=== PATIENT | female | born 1990 | race Caucasian/White ===

== ENCOUNTER 2019-12-19 17:41 | Emergency (ER) | payer BC, SELFPAY ==
[2019-12-19 17:44] VITALS: BP 145/82; PULSE 130; RESP 20; TEMP 37.1; O2SAT 99
--- NOTE | 2019-12-19 17:48 | ED.GENADULT ---
HPI - General Adult General Chief complaint: Arrhythmia/Palpitations Stated complaint: chest hurts Time Seen by Provider: 12/19/19 17:48 Source: patient Mode of arrival: ambulatory Limitations: no limitations History of Present Illness HPI narrative: 29-year-old female patient presents to the [facility] with complaints of heart palpitations for the past 4 days. Patient states that she has been fighting off some types of cold symptoms recently and has had a little bit of a stuffy nose, runny nose and a cough. Patient denies any abdominal pain or nausea but states that she has had a little bit of diarrhea. Patient states that she does have a gluten and a dairy sensitivity and she did eat some of that yesterday. Patient also states that she has a history of IBS. Patient states she is coming in today because she has been having some palpitations for the past 4 days. Patient states that she does have a history of palpitations as well as sinus tachycardia and does see a filenet developer. Patient states that she sees her filenet developer tomorrow. Patient states she also has a history of PCOS, anxiety and depression. Patient states she does get panic attacks at times as well. Patient denies taking any [id number] pseudoepinephrine. Patient states she has been trying to take vitamins as well as Zicam for her symptoms. Patient denies any chest pain, shortness of breath at this time. Patient denies being a smoker. Related Data Home Medications Medication Instructions Recorded Confirmed Multiple Vitamins 12/19/19 Allergies Allergy/AdvReac Type Severity Reaction Status Date / Time aripiprazole Allergy Mild Verified 04/28/19 03:40 paroxetine Allergy Unknown Verified 02/03/17 13:35 pseudoephedrine Allergy Unknown Verified 02/03/17 13:35 DEPRESSION MEDS SSRI AdvReac Unknown Uncoded 06/03/17 12:10 sleeping medications AdvReac Unknown Uncoded 06/28/16 22:40 Review of Systems Review of Systems: Narrative: CONSTITUTIONAL: Denies fever, chills, or sweats. EYES: Denies visual changes, redness, or discharge. ENT: Positive rhinorrhea, congestion, denies sore throat, or otalgia. CARDIOVASCULAR: Denies chest pain, palpitations, or edema. RESPIRATORY: Positive nonproductive cough, denies dyspnea. GASTROINTESTINAL: Denies abdominal pain, nausea, vomiting, positive diarrhea. GENITOURINARY: Denies dysuria or hematuria. SKIN: Denies rash or itching. MUSCULOSKELETAL: Denies back pain, joint pain, or myalgia. NEUROLOGIC: Denies headache, numbness, or weakness. PSYCHIATRIC: Denies anxiety or depression. [facility] Past Medical History Medical History (Updated 12/19/19 @ 18:18 by SEAN Rosa) ADHD Ataxia Bipolar 1 disorder Depression Diaphoresis Headache, migraine Hypersomnia Hypertension IBS (irritable bowel syndrome) Obesity, Class III, BMI 40-49.9 (morbid obesity) Palpitations with regular cardiac rhythm (05/31/17) Panic attacks PCOS (polycystic ovarian syndrome) Periumbilical abdominal pain Previous known suicide attempt Seizure Tachycardia Surgical History Surgical History History of wisdom tooth extraction Family History Family History Mother Diabetes mellitus Family history of chronic obstructive pulmonary disease Family history of congestive heart failure Social History Social History Smoking status: Former smoker Comments At the time of my signature I agree with nursing past medical history, surgical, social, and family history. There is no relevant family history pertinent to the presenting complaint. Exam Narrative: Exam Narrative: GENERAL: Well-appearing, well-nourished, and in no acute distress. HEAD: Normocephalic, atraumatic. EYES: PERRLA and EOMI. ENT: Nares with erythema and edema noted bilaterally, no rhinorrhea or epistaxis. Mucous
[2019-12-19 18:22] VITALS: PULSE 112
== END 2019-12-19 18:26 | disposition home or self-care (01) ==
PROVIDERS: Emergency Provider Nurse Practitioner Family
DX: R00.2 Palpitations (principal); B34.9 Viral infection, unspecified; Z87.891 Personal history of nicotine dependence; I10 Essential (primary) hypertension; E66.01 Morbid (severe) obesity due to excess calories; E28.2 Polycystic ovarian syndrome; Z68.41 Body mass index [BMI] 40.0-44.9, adult
CPT/HCPCS: 99213; G0463

== ENCOUNTER 2020-01-11 15:25 | Outpatient (CLI) | payer BC, SELFPAY ==
--- NOTE | 2020-01-16 11:12 | WPDHOLTEREM ---
Holter/Event Monitor Holter/Event Monitor Date of procedure: 01/11/20 Procedure Type: 24 hour holter monitor Indications: Tachycardia Conclusion: 1. 24 hour holter monitor on 01/11/20. 2. Underlying rhythm is sinus rhythm. HR range 63-135 bpm; average HR 95 bpm. 3. No premature supraventricular complexes. No supraventricular tachycardia. 4. There are 2,916 premature ventricular complexes, 42 ventricular trigeminy. No ventricular tachycardia. 5. No sinoatrial or atrioventricular blocks. No significant pauses greater than 2 seconds. 6. Patient reports dizziness, hard to breathe which demonstrate sinus rhythm, HR range 104-107 bpm and PVC's.
== END 2020-01-11 15:26 | disposition home or self-care (01) ==
PROVIDERS: Visit Provider Internal Medicine Cardiovascular Disease
DX: R00.0 Tachycardia, unspecified (principal)
CPT/HCPCS: 93225; 93226

== ENCOUNTER 2020-02-11 07:36 | Emergency (ER) | payer BC, SELFPAY ==
[2020-02-11 07:30] VITALS: BP 152/100; PULSE 117; RESP 18; TEMP 36.8; O2SAT 97
--- NOTE | 2020-02-11 07:40 | ED.FEMALEGU ---
HPI - Female Genitourinary General Chief complaint: Vaginal Bleeding Stated complaint: vaginal bleeding Time Seen by Provider: 02/11/20 07:36 History of Present Illness HPI Narrative: Brought in by EMS for a heavy period. She has been on her period for the past 10 days. The past 6 days have been heavy. She reports having to change pads every 2-3 hours yesterday. This morning she was feeling dizzy and SOB. She has PCOS and prior to the past 10 days she had not had a period in 2 years. She was recently started on a new hormone therapy for PCOS prior to onset of the bleeding. Related Data Home Medications Medication Instructions Recorded Confirmed Multiple Vitamins 12/19/19 12/20/19 Allergies Allergy/AdvReac Type Severity Reaction Status Date / Time aripiprazole Allergy Mild Unknown Verified 02/11/20 08:03 paroxetine Allergy Unknown Unknown Verified 02/11/20 08:03 pseudoephedrine Allergy Unknown Unknown Verified 02/11/20 08:03 DEPRESSION MEDS SSRI AdvReac Unknown Unknown Uncoded 02/11/20 08:03 sleeping medications AdvReac Unknown Unknown Uncoded 02/11/20 08:03 Review of Systems Review of Systems: All systems reviewed & are unremarkable except as noted in HPI and below Constitutional: Constitutional: Reports fatigue Eyes: Eyes: Reports no additional eye complaints ENT: Reports dizziness Cardiovascular: Cardiovascular: Denies chest pain Respiratory: Respiratory: Reports dyspnea Gastrointestinal: Gastrointestinal: Reports nausea Genitourinary: Genitourinary: Reports abnormal vaginal bleeding, Denies dysuria, Reports pelvic pain and Denies vaginal discharge Musculoskeletal: Musculoskeletal: Denies back pain Neurologic: Reports dizziness Psychiatric: Psychiatric: Reports anxiety Hematologic/Lymphatic: Hematologic/Lymphatic: Denies easy bleeding and Denies easy bruising Allergic/Immunologic: Allergic/Immunologic: Reports no additional allergic/immunologic complaints [facility] Past Medical History Medical History ADHD Ataxia Bipolar 1 disorder Depression Diaphoresis Headache, migraine Hypersomnia Hypertension IBS (irritable bowel syndrome) Obesity, Class III, BMI 40-49.9 (morbid obesity) Palpitations with regular cardiac rhythm (05/31/17) Panic attacks PCOS (polycystic ovarian syndrome) Periumbilical abdominal pain Previous known suicide attempt Seizure Tachycardia Surgical History Surgical History History of wisdom tooth extraction Family History Family History Mother Diabetes mellitus Family history of chronic obstructive pulmonary disease Family history of congestive heart failure Social History Social History Smoking status: Former smoker Exam Const: General: no acute distress and alert Nutritional Appearance: obese Orientation/consciousness: patient oriented x3 Limitations: no limitations HENMT: Head: normal to inspection Resp: Effort & Inspection: normal respiratory effort Auscultation: clear to auscultation bilaterally Cardio: Rate: tachycardic Rhythm: regular rhythm GI: GI Palp: Yes Soft to palpation and No Tenderness to palpation present (GI) Skin: General skin exam: normal color Neuro: General: patient oriented x3, moves all extremities and no focal motor deficits Speech: normal speech Extrem: General: no edema Course Vital Signs Vital signs: Vital Signs Temperature 36.8 C 02/11/20 07:30 Pulse Rate 117 H 02/11/20 07:30 Respiratory Rate 18 02/11/20 07:30 Blood Pressure 152/100 H 02/11/20 07:30 Pulse Oximetry 97 02/11/20 07:30 Temperature 36.8 C 02/11/20 07:30 Pulse Rate 96 02/11/20 09:06 Respiratory Rate 18 02/11/20 09:06 Blood Pressure 147/94 H 02/11/20 09:06 Pulse Oximetry 99 02/11/20 09:06
[2020-02-11 07:44] VITALS: BP 127/80; PULSE 108
[2020-02-11 07:45] VITALS: BP 133/87; PULSE 116
[2020-02-11 07:46] VITALS: BP 135/86; PULSE 115
[2020-02-11 07:50] LABS: Basophils Absolute Auto 0.1 K/mm3 (0.0-0.1); Basophils Percent Auto 0.6 % (0.2-1.2); Eosinophils Absolute Auto 0.2 K/mm3 (0-0.3); Eosinophils Percent Auto 2.2 % (0-4.4); Hematocrit 39.1 % (37.0-47.0); Hemoglobin 12.4 g/dL (12.0-15.0); Immature Granulocyte Absolute 0.04 K/mm3 (0.00-0.031); Immature Granulocyte Percent A 0.4 % (0-0.5); Lymphocytes Absolute Auto 2.67 K/mm3 (0.9-3.2); Lymphocytes Percent Auto 26.5 % (18.3-44.2); Mean Corpuscular HGB Conc 31.7 g/dl (32-36); Mean Corpuscular Hemoglobin 28.4 pg (26-34); Mean Corpuscular Volume 89.7 fl (80-100); Mean Platelet Volume 8.9 fl (7.4-10.4); Monocytes Absolute Auto 0.6 K/mm3 (0.1-0.6); Monocytes Percent Auto 5.6 % (2.6-8.5); Neutrophils Absolute Auto 6.5 K/mm3 (1.3-6.7); Neutrophils Percent Auto 64.7 % (45.5-73.1); Platelet Count Result 384 k/mm3 (150-375); Red Blood Count 4.36 M/mm3 (4.2-5.4); Red Cell Distribution Width 12.9 % (11.5-14.5); White Blood Count 10.1 K/mm3 (4.5-10.0)
[2020-02-11] MEDS: SODIUM CHLORIDE 0.9% IV 1,000 ML 999 ML IV CONT (07:53)
[2020-02-11 08:00] LABS: INR 0.9; Prothrombin Time 12.2 Seconds (11.1-14.7)
[2020-02-11 08:01] LABS: Partial Thromboplastin Time 28.1 SECONDS (22.3-36.8)
[2020-02-11 08:22] LABS: Blood Urea Nitrogen 13 mg/dL (7-17); Calcium 8.7 mg/dL (8.4-10.2); Carbon Dioxide 25 mmol/L (22-30); Chloride 108 mmol/L (98-107); Estimated CRCL calculation 182 ml/min; Estimated Glomerular Filt Rate > 60; Glucose 122 mg/dL (65-105); Potassium 3.8 mmol/L (3.4-5.0); Sodium 140 mmol/L (137-145)
[2020-02-11 08:23] LABS: Add Urine Microscopic? YES; Appearance Urine Cloudy (Clear); Bilirubin Urine Negative (Negative); Blood Urine 3+ (Negative); Color Urine Red (Yellow); Glucose Urine UA Negative (Negative); Ketones Urine Negative (Negative); Leukocyte Esterase Ur Negative LEU/UL (Negative); Mucus Urine Rare /lpf; Nitrate Urine Negative (Negative); Protein Urine 2+ mg/dL (Negative); RBC Urine >75 /hpf (0-2); Specific Grav Ur 1.031 (1.001-1.035); Urobilinogen Urine Negative mg/dL (<2.0); WBC Urine 31-50 /hpf
[2020-02-11 08:44] VITALS: BP 147/84; PULSE 103; RESP 19; O2SAT 100
--- NOTE | 2020-02-11 09:04 | PC.NURSE ---
Pt reports fluids helped. Pt also states that bleeding has calmed down and has not soaked through a pad. EDP at bedside and aware of update
[2020-02-11 09:06] VITALS: BP 147/94; PULSE 96; RESP 18; O2SAT 99
== END 2020-02-11 09:29 | disposition home or self-care (01) ==
PROVIDERS: Emergency Provider Emergency Medicine
DX: N93.9 Abnormal uterine and vaginal bleeding, unspecified (principal); E28.2 Polycystic ovarian syndrome; K58.9 Irritable bowel syndrome, unspecified; E66.01 Morbid (severe) obesity due to excess calories; Z68.42 Body mass index [BMI] 45.0-49.9, adult
CPT/HCPCS: 36415; 80048; 81001; 81025; 85025; 85610; 85730; 86850; 86900; 86901; 87077; 87086; 87088; 87186; 96360; 99283; J7030

== ENCOUNTER 2020-08-18 14:41 | Emergency (ER) | payer OTHER, BC, SELFPAY ==
[2020-08-18 14:55] VITALS: BP 137/81; PULSE 99; RESP 16; TEMP 37.2; O2SAT 99
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
== END 2020-08-18 15:10 | disposition home or self-care (01) ==
PROVIDERS: Emergency Provider Nurse Practitioner
DX: S20.312A Abrasion of left front wall of thorax, initial encounter (principal); V49.40XA Driver injured in collision with unspecified motor vehicles in traffic accident, initial encounter; I10 Essential (primary) hypertension; E66.01 Morbid (severe) obesity due to excess calories; E28.2 Polycystic ovarian syndrome; Z87.891 Personal history of nicotine dependence
CPT/HCPCS: 99212; G0463

== ENCOUNTER 2021-04-11 14:02 | Emergency (ER) | payer BC, SELFPAY ==
[2021-04-11 14:30] VITALS: BP 142/87; PULSE 118; RESP 16; TEMP 36.6; O2SAT 100
--- NOTE | 2021-04-11 14:37 | ED.URI ---
HPI - URI/Sore Throat General Chief Complaint: Upper Respiratory Infection Stated Complaint: sinus congestion/cough/drainage History of Present Illness HPI Narrative: This is a 30-year-old that comes in complaining of sinus pressure and nasal drainage that started yesterday patient states that she has had a good cry and thought that it would go away but symptoms did not subside. Patient comes in to see if she possibly has a sinus infection symptoms started yesterday no fever no nausea no vomiting diarrhea Related Data Home Medications Medication Instructions Recorded Confirmed Multiple Vitamins 12/19/19 12/20/19 Allergies Allergy/AdvReac Type Severity Reaction Status Date / Time aripiprazole Allergy Mild Unknown Verified 02/11/20 08:03 paroxetine Allergy Unknown Unknown Verified 02/11/20 08:03 pseudoephedrine Allergy Unknown Unknown Verified 02/11/20 08:03 DEPRESSION MEDS SSRI AdvReac Unknown Unknown Uncoded 02/11/20 08:03 sleeping medications AdvReac Unknown Unknown Uncoded 02/11/20 08:03 Review of Systems Review of Systems: Narrative: CONSTITUTIONAL: Denies fever, chills, or sweats. EYES: Denies visual changes, redness, or discharge. ENT: Reports s rhinorrhea, reports congestion, denies sore throat, or otalgia. CARDIOVASCULAR:Denies chest pain, palpitations, or edema. RESPIRATORY: Denies cough or dyspnea. GASTROINTESTINAL: Denies abdominal pain, nausea, vomiting, or diarrhea. GENITOURINARY: Denies dysuria or hematuria. SKIN:[Denies rash or itching. MUSCULOSKELETAL:Denies back pain, joint pain, or myalgia. NEUROLOGIC: Denies headache, numbness, or weakness. PSYCHIATRIC:Denies anxiety or depression [facility] Past Medical History Medical History (Updated 04/11/21 @ 14:39 by Scar Sebastian NP) ADHD Ataxia Bipolar 1 disorder Depression Diaphoresis Headache, migraine Hypersomnia Hypertension IBS (irritable bowel syndrome) Obesity, Class III, BMI 40-49.9 (morbid obesity) Palpitations with regular cardiac rhythm (05/31/17) Panic attacks PCOS (polycystic ovarian syndrome) Periumbilical abdominal pain Previous known suicide attempt Seizure Tachycardia Surgical History Surgical History History of wisdom tooth extraction Family History Family History Mother Diabetes mellitus Family history of chronic obstructive pulmonary disease Family history of congestive heart failure Social History Social History Smoking status: Former smoker Comments At time as signature, I have reviewed and agree with nursing past medical, social, surgical and family history. Please see nursing chart for further information. There is no relevant family history pertinent to the presenting complaint. Exam Narrative: Exam Narrative: GENERAL:Well-appearing, well-nourished, and in no acute distress. HEAD:Normocephalic, atraumatic. EYES: PERRLA and EOMI. ENT: Nares clear, no rhinorrhea or epistaxis. Mucous membranes moist. Some T-zone pressure NECK: Supple. CHEST: Clear to auscultation. No respiratory distress. HEART: Regular rate and rhythm. No murmur heard. Normal peripheral pulses. ABDOMEN: Soft, nontender, nondistended, normal active bowel sounds. EXTREMITIES: Normal range of motion. No edema. SKIN: Warm, dry, no rash. NEURO: No focal deficits. Alert and oriented x3. Patient is fully vaccinated for Covid Course Vital Signs Vital signs: Vital Signs Temperature 97.8 F 04/11/21 14:30 Pulse Rate 118 H 04/11/21 14:30 Respiratory Rate 16 04/11/21 14:30 Blood Pressure 142/87 H 04/11/21 14:30 Pulse Oximetry 100 04/11/21 14:30 Temperature 97.8 F 04/11/21 14:30 Pulse Rate 118 H 04/11/21 14:30 Respiratory Rate 16 04/11/21 14:30 Blood Pressure 142/87 H 04/11/21 14:30 Pulse Oximetry 100 04/11/21 14:30 MDM - URI/Sore
== END 2021-04-11 14:47 | disposition home or self-care (01) ==
PROVIDERS: Emergency Provider Nurse Practitioner Family
DX: B34.9 Viral infection, unspecified (principal); J30.1 Allergic rhinitis due to pollen; I10 Essential (primary) hypertension; E28.2 Polycystic ovarian syndrome
CPT/HCPCS: 99213; G0463

== ENCOUNTER 2021-09-24 12:23 | Emergency (ER) | payer BC, SELFPAY ==
[2021-09-24 12:27] VITALS: BP 147/92; PULSE 125; RESP 20; TEMP 36.9; O2SAT 100
--- NOTE | 2021-09-24 12:44 | ED.URI ---
HPI - URI/Sore Throat General Chief Complaint: Upper Respiratory Infection Stated Complaint: CONGESTION/SORE THROAT Time Seen by Provider: 09/24/21 12:44 Source: patient Mode of arrival: ambulatory Limitations: no limitations History of Present Illness HPI Narrative: Alia Fabian is a 31 yo female with PMH IBS, HTN, high cholesterol,seizure, bipolar , depression, [facility] complaints of ongoing worsening sinusitis and anxiety; she has pressure in her ears and constant postnasal drip and has affected her taste; she is also had diarrhea but has IBS and so it has been a very stressful week with things going on at home Related Data Home Medications Medication Instructions Recorded Confirmed drospirenone (contraceptive) 1 tablet PO DAILY 09/24/21 09/24/21 [Slynd] Allergies Allergy/AdvReac Type Severity Reaction Status Date / Time aripiprazole Allergy Mild Unknown Verified 09/24/21 12:40 paroxetine Allergy Unknown Unknown Verified 09/24/21 12:40 pseudoephedrine Allergy Unknown Unknown Verified 09/24/21 12:40 DEPRESSION MEDS SSRI AdvReac Unknown Unknown Uncoded 09/24/21 12:40 sleeping medications AdvReac Unknown Unknown Uncoded 09/24/21 12:40 Review of Systems Review of Systems: CONSTITUTIONAL: Denies fever, chills, sweats. EYES: Denies visual changes, redness, discharge. ENT: Denies rhinorrhea, has congestion, has sore throat, has bilateral otalgia-feels like ears are full. CARDIOVASCULAR: Denies chest pain, palpitations, edema. RESPIRATORY: Denies dyspnea, wheezing, cough GASTROINTESTINAL: Denies abdominal pain, nausea, vomiting, diarrhea. GENITOURINARY: Denies dysuria, hematuria, abnormal discharge SKIN: Denies rash or itching. NEUROLOGIC: Denies numbness, or focal weakness. PSYCHIATRIC: Denies anxiety or depression. [facility] Past Medical History Medical History (Updated 09/24/21 @ 13:04 by Linda Franklin CNP) ADHD Ataxia Bipolar 1 disorder Depression Diaphoresis Headache, migraine Hypersomnia Hypertension IBS (irritable bowel syndrome) Obesity, Class III, BMI 40-49.9 (morbid obesity) Palpitations with regular cardiac rhythm (05/31/17) Panic attacks PCOS (polycystic ovarian syndrome) Periumbilical abdominal pain Previous known suicide attempt Seizure Tachycardia Surgical History Surgical History History of wisdom tooth extraction Family History Family History Mother Diabetes mellitus Family history of chronic obstructive pulmonary disease Family history of congestive heart failure Social History Social History Smoking status: Former smoker Comments At time of signature, I agree with nursing past medical, surgical, social and family history. There is no relevant family history pertinent to the presenting complaint. Has diagnosis of hypertension Exam Narrative: GENERAL: This is a well-nourished, well-developed patient, in mild distress. HEAD: normocephalic, atraumatic. EYES: Sclera clear/white. Vision is grossly intact. EARS: External ears normal, auditory canals erythema and without drainage, TMs bulging bilaterally. Hearing grossly intact. NOSE: External nose normal without nasal discharge, nares without redness, no rhinorrhea. Postnasal drip THROAT: Mucous membranes moist, posterior pharynx erythema, no exudate NECK: Neck supple, non-tender CARDIOVASCULAR: Regular rate and rhythm without murmurs, gallops, or rubs. RESPIRATORY: Clear to auscultation. Breath sounds equal bilaterally. No wheezes, rales, or rhonchi. GASTROINTESTINAL: Abdomen soft, non-tender, complaining of some earlier today to bowel movement SKIN: warm, intact with no suspicious lesions or rash, good texture and turgor. NEURO: awake, alert, and oriented to person, place and time. There were no obvious focal neurologic abnormalities. Steady
== END 2021-09-24 13:08 | disposition home or self-care (01) ==
PROVIDERS: Emergency Provider Nurse Practitioner
DX: J01.10 Acute frontal sinusitis, unspecified (principal); I10 Essential (primary) hypertension; Z87.891 Personal history of nicotine dependence
CPT/HCPCS: 87081; 87880; 99213; G0463

== ENCOUNTER 2021-10-02 15:14 | Emergency (ER) | payer BC, SELFPAY ==
--- NOTE | 2021-10-02 15:19 | ED.GENADULT ---
HPI - General Adult General Chief complaint: Nausea/Vomiting/Diarrhea Stated complaint: diarrhea/not eating/abdominal pain Time Seen by Provider: 10/02/21 15:36 Source: patient and RN notes reviewed Mode of arrival: ambulatory Limitations: no limitations History of Present Illness HPI narrative: 31-year-old female presents with concern for profuse diarrhea. Reports symptoms started yesterday with epigastric discomfort, watery stools 7-8 times a day. She reports fever of up to 102. She reports nausea without vomiting. Reports she has been taking Imodium, if she does not take Imodium she is incontinent. She reports she is on day 8 of Augmentin for a sinus infection. Reports she is only been taking one of the 2 daily tablets because it upsets her stomach. Reports before symptoms started she ate sushi. Reports she has had problem in the past with diarrhea. Reports she has had work-up, does not know of any results. In a separate complaint she reports dysuria without frequency, urgency, flank pain. Related Data Home Medications Medication Instructions Recorded Confirmed drospirenone (contraceptive) 1 tablet PO DAILY 09/24/21 09/24/21 [Slynd] Allergies Allergy/AdvReac Type Severity Reaction Status Date / Time aripiprazole Allergy Mild Unknown Verified 10/02/21 15:23 paroxetine Allergy Unknown Unknown Verified 10/02/21 15:23 pseudoephedrine Allergy Unknown Unknown Verified 10/02/21 15:23 DEPRESSION MEDS SSRI AdvReac Unknown Unknown Uncoded 10/02/21 15:23 sleeping medications AdvReac Unknown Unknown Uncoded 10/02/21 15:23 Review of Systems Review of Systems: CONSTITUTIONAL: Denies malaise, chills, sweats, or fever. CARDIOVASCULAR: Denies chest pain, palpitations, or edema. RESPIRATORY: Denies cough or dyspnea. GASTROINTESTINAL: Reports epigastric abdominal pain, nausea,diarrhea. GENITOURINARY: Denies dysuria. Denies frequency, urgency, hematuria. MUSCULOSKELETAL: Denies myalgia. All systems reviewed & are unremarkable except as noted in HPI and below PMFSH Past Medical History Medical History (Updated 10/02/21 @ 16:03 by Sary Sutton NP) ADHD Ataxia Bipolar 1 disorder Depression Diaphoresis Headache, migraine Hypersomnia Hypertension IBS (irritable bowel syndrome) Obesity, Class III, BMI 40-49.9 (morbid obesity) Palpitations with regular cardiac rhythm (05/31/17) Panic attacks PCOS (polycystic ovarian syndrome) Periumbilical abdominal pain Previous known suicide attempt Seizure Tachycardia Surgical History Surgical History History of wisdom tooth extraction Family History Family History Mother Diabetes mellitus Family history of chronic obstructive pulmonary disease Family history of congestive heart failure Social History Social History Smoking status: Former smoker Comments At time of signature, agree with nursing past medical, surgical, social and family history. There is no relevant family history pertinent to the presenting complaint Exam Narrative: GENERAL: Well-appearing, well-nourished, and in no acute distress. HEAD: Normocephalic, atraumatic. EYES: PERRLA, sclera clear. ENT: Mucous membranes moist. NECK: Supple. CHEST: No respiratory distress. Clear to auscultation. No bony deformities, no asymmetry. Speaks in full sentences. HEART: Regular rate and rhythm. ABDOMEN: Soft, nontender, nondistended, normal active bowel sounds, no palpable masses. SKIN: Warm, dry, no visible rash. NEURO: Alert and oriented x3. PSYCH: Normal mood and affect Course Course Emergency Course: Discussed with patient limited diagnostic capability express care for her symptoms. Discussed transfer to ER versus follow-up with primary care. Patient reports she has an appointment with her primary care doctor on Wednesday. Patient given reaso
[2021-10-02 15:22] VITALS: BP 139/91; PULSE 129; RESP 12; TEMP 36.8; O2SAT 100
== END 2021-10-02 16:15 | disposition home or self-care (01) ==
PROVIDERS: Emergency Provider Nurse Practitioner
DX: R30.0 Dysuria (principal); R19.7 Diarrhea, unspecified; I10 Essential (primary) hypertension
CPT/HCPCS: 81003; 99213; G0463

== ENCOUNTER → 2021-11-10 11:34 | Outpatient (CLI) | payer BC, SELFPAY ==
--- NOTE | ~2021-11-10 | US_ITS ---
EXAMINATION: US transvaginal DATE: 11/10/2021 11:56 INDICATION: Spotting with continuous control. Bilateral adnexal pain. TECHNIQUE: Multiple transvaginal sonographic images of the pelvis were obtained. COMPARISON: Pelvis ultrasound 09/15/2018 FINDINGS: The uterus measures 7.8 x 3.8 x 4.2 cm. There is no free fluid in the pelvis. The endometrial complex measures 6 mm in thickness. The right ovary measures 1.3 x 1.7 x 0.9 cm. The left ovary measures 1.8 x 1.4 x 1.7 cm. There is normal vascular flow in the ovaries. IMPRESSION: 1. Normal pelvis. Reviewed, dictated and finalized at location B. CAGER IMPRESSION: 1. Normal pelvis.
== END ==
PROVIDERS: Visit Provider Nurse Practitioner
DX: N93.8 Other specified abnormal uterine and vaginal bleeding (principal)
CPT/HCPCS: 76830

== ENCOUNTER → 2022-01-01 12:07 | Outpatient (CLI) | payer BC, SELFPAY ==
--- NOTE | ~2022-01-01 | MR_ITS ---
EXAMINATION: MR cervical spine wo con DATE: 01/01/2022 13:07 INDICATION: Cervical disc herniation. TECHNIQUE: Magnetic resonance imaging (MRI) of the cervical spine was performed without intravenous c ontrast. Sequences included sagittal T2-weighted FSE, sagittal STIR FSE, sagittal T1-weighted FSE, ax ial MERGE, and axial T2-weighted FSE. COMPARISON: Cervical spine MRI 09/07/2017 FINDINGS: Bone alignment is normal. Vertebral body heights and intervertebral disc heights are normal . The spinal cord signal intensity is normal. The following disc levels are specifically discussed: C2-C3: The disc does not extend beyond the endplate margin. There is mild bilateral uncovertebral jovany nt osteoarthritis. There is mild right and moderate left facet joint osteoarthritis. There is mild le ft neural foraminal stenosis. There is no central canal stenosis. C3-C4: The disc does not extend beyond the endplate margin. There is mild bilateral uncovertebral jovany nt osteoarthritis. There is mild bilateral facet joint osteoarthritis. There is no neural foraminal s tenosis. There is no central canal stenosis. C4-C5: There is a central protrusion. There is no uncovertebral joint osteoarthritis. There is no fac et joint osteoarthritis. There is no neural foraminal stenosis. There is mild central canal stenosis. C5-C6: There is a left central extrusion. There is no uncovertebral joint osteoarthritis. There is mi ld bilateral facet joint osteoarthritis. There is no neural foraminal stenosis. There is mild central canal stenosis with ventral indentation of the spinal cord. C6-C7: There is a central extrusion. There is no uncovertebral joint osteoarthritis. There is no face t joint osteoarthritis. There is no neural foraminal stenosis. There is mild central canal stenosis. C7-T1: The disc does not extend beyond the endplate margin. There is no uncovertebral joint osteoarth ritis. There is mild bilateral facet joint osteoarthritis. There is no neural foraminal stenosis. The re is no central canal stenosis. IMPRESSION: 1. Mild cervical spondylosis, stable from 09/07/2017. Reviewed, dictated and finalized at location A. OTAPE EDITOR
== END ==
PROVIDERS: PCP Family Medicine; Visit Provider Chiropractor
DX: R50.9 Fever, unspecified (principal)
CPT/HCPCS: 72141

== ENCOUNTER 2023-01-29 00:17 | Emergency (ER) | payer BC, SELFPAY ==
--- NOTE | ~2023-01-29 | XR_ITS ---
Clinical Indication: Chest pain PA and lateral views of the chest: Comparison: 08/09/2017 Findings: The lungs are clear, without evidence of focal consolidation or pleural effusion. Cardiome diastinal silhouette is within normal limits. Bones and soft tissues are unremarkable. Density projec ting over the mid chest is external to the patient as evidenced on lateral view. Impression: No significant abnormality seen. Reviewed, dictated and finalized at location M. Impression: No significant abnormality seen.
--- NOTE | ~2023-01-29 | CT_ITS ---
Clinical Indication: Pulmonary embolus CT Scan of the Chest with Contrast: Technique: Contiguous sections were acquired throughout the chest after intravenous administration of 100 cc of Omnipaque 350. Dose reduction technique was used on this scan by utilizing automated expos ure control and iterative reconstruction technique. The dose-length product (DLP) was 903.28 mGy-cm. COMPARISON: 08/09/2017 Findings: There is no evidence of any significant mediastinal, hilar or axillary lymphadenopathy. There is no f illing defect in the pulmonary arterial tree to suggest pulmonary embolus. There is no evidence of ao rtic dissection or aneurysm. There is no evidence of pleural or pericardial effusion. The lungs are clear. No pulmonary nodules or infiltrates are noted. Images through the upper abdomen reveal no abnormalities. Impression: No evidence of pulmonary embolus, aortic dissection, or aortic aneurysm. Clear lungs. Reviewed, dictated and finalized at [facility]. Impression: No evidence of pulmonary embolus, aortic dissection, or aortic aneurysm. Clear lungs.
--- NOTE | 2023-01-29 00:20 | ECG_ITS ---
Measurements Intervals [place] Rate: 110 P: 12 [place]: 120 QRS: -10 QRSD: 89 T: 7 QT: 328 QTc: 445 Interpretive Statements SINUS TACHYCARDIA LOW QRS VOLTAGE IN PRECORDIAL LEADS VOLTAGE CRITERIA FOR LVH BASELINE ARTIFACT- III, AVF ABNORMAL ECG NO PREVIOUS ECG AVAILABLE FOR COMPARISON Electronically Signed On 01-29-2023 7:11:24 CDT by Antoine Rutledge D.O.
[2023-01-29 00:23] VITALS: BP 158/103; PULSE 108; RESP 18; TEMP 36.8; O2SAT 100
--- NOTE | 2023-01-29 00:28 | ED.CHESTPAIN ---
HPI - Chest Pain General Chief Complaint: Chest Pain Stated Complaint: CHEST TIGHTNESS, LIGHTHEADEDNESS Time Seen by Provider: 01/29/23 00:19 History of Present Illness HPI narrative: Patient is a 32-year-old female with a history of depression and anxiety here for evaluation of flushing, lightheadedness, palpitations and chest pain earlier today. Patient states that she was at rest when she developed the symptoms. She has followed with Dr. Rutledge, cardiology, in the past for the symptoms, has reportedly been asymptomatic for the past 2 years. Clau's episode feels similar to previous episodes. She has been worked up with a Holter monitor and an echo in the past both of which have been reassuring. Patient decided to come to the ED after she took her blood pressure and noticed that it was elevated in the 160s systolic. No syncope, leg swelling, visual changes, fevers, nausea, vomiting or abdominal pain. She does not take any blood pressure medicines. She does take oral contraceptives. Related Data Home Medications Medication Instructions Recorded Confirmed drospirenone (contraceptive) 4 mg 1 tablet PO DAILY 09/24/21 10/02/21 (28) tablet (Slynd) Allergies Allergy/AdvReac Type Severity Reaction Status Date / Time aripiprazole Allergy Mild Unknown Verified 10/02/21 15:23 paroxetine Allergy Unknown Unknown Verified 10/02/21 15:23 pseudoephedrine Allergy Unknown Unknown Verified 10/02/21 15:23 DEPRESSION MEDS SSRI AdvReac Unknown Unknown Uncoded 10/02/21 15:23 sleeping medications AdvReac Unknown Unknown Uncoded 10/02/21 15:23 Review of Systems Review of Systems: Gen.: Reports lightheadedness Eyes: Denies eye pain or visual change ENT: Denies congestion Respiratory: Denies shortness of breath or cough CV: Reports chest pain and palpitations GI: Denies abdominal pain nausea, emesis or diarrhea denies burning, urgency, frequency or hematuria Musculoskeletal: Denies back pain or muscle pain Neuro: Denies numbness, tingling, weakness or focal weakness Skin: Denies rash Except as documented, all other systems reviewed and negative PMFSH Past Medical History Medical History (Updated 01/29/23 @ 03:43 by Ginna Reyez PA-C) ADHD Ataxia Bipolar 1 disorder Depression Diaphoresis Headache, migraine Hypersomnia Hypertension IBS (irritable bowel syndrome) Obesity, Class III, BMI 40-49.9 (morbid obesity) Palpitations with regular cardiac rhythm (05/31/17) Panic attacks PCOS (polycystic ovarian syndrome) Periumbilical abdominal pain Previous known suicide attempt Seizure Tachycardia Surgical History Surgical History History of wisdom tooth extraction Family History Family History Mother Diabetes mellitus Family history of chronic obstructive pulmonary disease Family history of congestive heart failure Social History Social History Smoking status: Former smoker Exam Narrative: APPEARANCE: Anxious appearing Head: Normocephalic and atraumatic. EYES: PERRLA/EOMI, conjunctivae clear NOSE: No nasal drainage EARS: External ear normal in appearance THROAT: Oropharynx is clear. Mucous membranes are moist. NECK: Supple. No adenopathy, no masses. RESPIRATORY: Airway patent, respirations nonlabored. Clear to auscultation bilaterally, no rales, rhonchi, wheezing. CARDIOVASCULAR: Tachycardic. Regular rhythm without murmurs, rubs, or gallops. ABDOMINAL: Normoactive bowel sounds. Soft, nontender, nondistended. No rebound tenderness or guarding. MUSCULOSKELETAL: Extremities are warm and well-perfused. Moves all extremities well. No edema. NEURO: Normal speech. No focal neurologic deficits. SKIN: Skin is warm and dry. No rashes. PSYCHIATRIC: Normal affect/mood. Course Vital Signs Vital signs: Vital Signs Temperature 98.3
[2023-01-29 00:32] VITALS: BP 158/95; PULSE 113; RESP 21; O2SAT 100
[2023-01-29] MEDS: SODIUM CHLORIDE 0.9% IV 1,000 ML 999 ML IV CONT (01:10)
[2023-01-29 01:44] LABS: Basophils Absolute Auto 0.1 K/mm3 (0.0-0.1); Basophils Percent Auto 0.6 % (0.2-1.2); Eosinophils Absolute Auto 0.2 K/mm3 (0-0.3); Eosinophils Percent Auto 2.5 % (0-4.4); Hemoglobin 14.6 g/dL (12.0-15.0); Immature Granulocyte Absolute 0.03 K/mm3 (0.00-0.031); Immature Granulocyte Percent A 0.3 % (0-0.5); Lymphocytes Absolute Auto 2.52 K/mm3 (0.9-3.2); Lymphocytes Percent Auto 28.4 % (18.3-44.2); Mean Corpuscular HGB Conc 33.2 g/dl (32-36); Mean Corpuscular Hemoglobin 29.3 pg (26-34); Mean Corpuscular Volume 88.4 fl (80-100); Mean Platelet Volume 9.2 fl (7.4-10.4); Monocytes Absolute Auto 0.5 K/mm3 (0.1-0.6); Monocytes Percent Auto 5.5 % (2.6-8.5); Neutrophils Absolute Auto 5.6 K/mm3 (1.3-6.7); Neutrophils Percent Auto 62.7 % (45.5-73.1); Platelet Count Result 330 k/mm3 (150-375); Red Blood Count 4.98 M/mm3 (4.2-5.4); Red Cell Distribution Width 12.5 % (11.5-14.5); White Blood Count 8.9 K/mm3 (4.5-10.0)
[2023-01-29 02:00] LABS: Alanine Aminotransferase 21 U/L (6-35); Albumin Level 4.8 g/dL (3.5-5.1); Alkaline Phosphatase 88 U/L (38-126); Anion Gap 10 mmol/L (8-16); Aspartate Amino Transferase 29 U/L (14-36); Bilirubin,Total 0.5 mg/dL (0.2-1.3); Blood Urea Nitrogen 18 mg/dL (7-17); Calcium 9.2 mg/dL (8.4-10.2); Carbon Dioxide 24 mmol/L (22-30); Chloride 106 mmol/L (98-107); Estimated CRCL calculation 194 ml/min; Estimated Glomerular Filt Rate > 60; Glucose 105 mg/dL (65-110); Potassium 3.9 mmol/L (3.4-5.0); Sodium 140 mmol/L (137-145)
[2023-01-29 02:12] LABS: Troponin I < 0.012 ng/mL (0.000-0.034)
[2023-01-29 02:29] LABS: D Dimer 0.56 ug/mL (<0.48)
== END 2023-01-29 04:08 | disposition home or self-care (01) ==
PROVIDERS: Emergency Provider Physician Assistant; PCP Family Medicine
DX: R00.0 Tachycardia, unspecified (principal); R00.2 Palpitations; F90.9 Attention-deficit hyperactivity disorder, unspecified type; F32.A Depression, unspecified; I10 Essential (primary) hypertension
CPT/HCPCS: 36415; 71046; 71275; 80053; 81025; 84484; 85025; 85380; 93005; 96360; 99284; J7030; Q9967

== ENCOUNTER → 2023-03-19 13:36 | Outpatient (CLI) | payer BC, SELFPAY ==
--- NOTE | ~2023-03-19 | US_ITS ---
EXAMINATION: US transvaginal DATE: 03/19/2023 13:59 INDICATION: Pelvic and perineal pain. TECHNIQUE: Multiple transvaginal sonographic images of the pelvis were obtained. COMPARISON: ultrasound 11/10/21 FINDINGS: The uterus measures 7.8 x 4.5 x 3.4 cm. There is no free fluid in the pelvis. The endometrial complex measures 6 mm in thickness. The right ovary measures 2.2 x 2.4 x 2.3 cm. The left ovary measures 1.6 x 1.5 x 1.3 cm. IMPRESSION: 1. Normal pelvis. Reviewed, dictated and finalized at location A. IMPRESSION: 1. Normal pelvis.
== END ==
PROVIDERS: PCP Nurse Practitioner; Visit Provider Nurse Practitioner
DX: R10.2 Pelvic and perineal pain (principal)
CPT/HCPCS: 76830

== ENCOUNTER → 2023-05-24 15:15 | Outpatient (CLI) | payer BC, SELFPAY ==
--- NOTE | ~2023-05-24 | MR_ITS ---
MRI of the brain Clinical History: Hyperprolactinemia Technique: Axial and sagittal T1-weighted images were acquired. These were followed by axial T2-weigh yumi, diffusion weighted, gradient, and FLAIR images. Thin cut coronal and sagittal T1-weighted images were also performed through the sella turcica. Following intravenous administration of 20 cc MultiHa nce gadolinium, T1-weighted fat-sat imaging was performed through the brain in the axial and coronal planes. Thin cut sagittal and coronal T1-weighted postcontrast imaging was also performed through the sella turcica. COMPARISON: 06/17/2017 Findings: There is no abnormal signal in the brain parenchyma. No acute infarct, intracranial hemorrh age, or mass lesion identified. Ventricles and subarachnoid spaces are unremarkable. Orbits are unremarkable. Paranasal sinuses and m astoid air cells are clear. Major intracranial flow voids appear intact. Sagittal midline structures are intact. No pituitary mass seen. No sellar/suprasellar mass seen. Opti c chiasm unremarkable. No abnormal postcontrast enhancement identified. IMPRESSION: Unremarkable exam. No pituitary or sellar/suprasellar mass identified. Reviewed, dictated and finalized at location M.
== END ==
PROVIDERS: PCP Obstetrics & Gynecology Gynecology; Visit Provider Obstetrics & Gynecology Gynecology
DX: E22.1 Hyperprolactinemia (principal)
CPT/HCPCS: 70553; A9577

== ENCOUNTER 2023-10-16 20:42 | Emergency (ER) | payer BC, SELFPAY ==
--- NOTE | ~2023-10-16 | XR_ITS ---
EXAMINATION: XR chest 1V portable Exam Date/Time: 10/16/2023 21:25 CHECKER/STOCKER HISTORY: fluttering in [id number], SOB 3 days Comparison: 01/29/2023. RESULT: Lines, tubes, and devices: None. Lungs and pleura: Clear. Cardiomediastinal silhouette: Stable. Other: No acute osseous or upper abdominal finding. IMPRESSION: No acute cardiopulmonary process. Reviewed, dictated and finalized at location K. KER/STOCKER
[2023-10-16 20:44] VITALS: BP 157/105; PULSE 112; RESP 18; TEMP 36.9; O2SAT 100
--- NOTE | 2023-10-16 20:52 | ECG_ITS ---
Measurements Intervals [place] Rate: 107 P: 30 CO: 148 QRS: -4 QRSD: 86 T: 44 QT: 335 QTc: 448 Interpretive Statements SINUS TACHYCARDIA LOW QRS VOLTAGE IN PRECORDIAL LEADS [QRS DEFLECTION < 1.0 mV IN CHEST LEADS] MODERATE VOLTAGE CRITERIA FOR LVH, CONSIDER NORMAL VARIANT [MEETS CRITERIA IN ONE OF: R(aVL), S(V1), R(V5), R(V5/V6)+S(V1)] POOR R-WAVE PROGRESSION ABNORMAL RHYTHM ECG COMPARED TO ECG 01/29/2023 00:22:34 NO SIGNIFICANT CHANGES Electronically Signed On 10-17-2023 9:03:03 CHAINSAW MECHANIC by Elier Saunders M.D.
--- NOTE | 2023-10-16 20:57 | ED.ARRPALP ---
HPI - Arrhythmia/Palpitations General Chief Complaint: Arrhythmia/Palpitations Stated Complaint: fluttering feeling in chest Time Seen by Provider: 10/16/23 20:56 Source: patient and EMS Mode of arrival: EMS Limitations: no limitations History of Present Illness HPI narrative: 33 YEARS OLD WHITE FEMALE LIVES ALONE, CAME FROM HOME BY AMBULANCE BECAUSE OF SKIPPED EATS FLUTTERY FEELING IN THE HEART OFTEN ON FOR THE LAST 1 MONTH. PATIENT HAD SIMILAR SYMPTOMS 3 YEARS AGO REQUIRED NUMEROUS HOLTER MONITOR MANAGEMENT WHICH SHOWED PVCS. . PATIENT USUALLY GETS BETTER ON IV FLUID, REPORTS TOO MUCH STRESS LATELY, DECLINED TO TAKE ANY BENZODIAZEPINE IN THE ED BECAUSE DOES NOT LIKE THE FEEL OF IT, DECLINED TO TAKE HYDRALAZINE, SHE IS TELLING ME THAT SHE HAVE IT AT HOME AND SHE IS BLIND TO TAKE IT ONCE YOU GO BACK HOME, HISTORY OF IBS, SHE DOES NOT SMOKE OR DRINK OR USE DRUGS. SHE DENIES ANY FEVER, CHILLS, NAUSEA, VOMITING, CHEST PAIN OR SHORTNESS OF BREATH. Related Data Home Medications Medication Instructions Recorded Confirmed drospirenone (contraceptive) 4 mg 1 tablet PO DAILY 09/24/21 10/02/21 (28) tablet (Slynd) Allergies Allergy/AdvReac Type Severity Reaction Status Date / Time aripiprazole Allergy Mild Unknown Verified 10/16/23 20:58 paroxetine Allergy Unknown Unknown Verified 10/16/23 20:58 pseudoephedrine Allergy Unknown Unknown Verified 10/16/23 20:58 Benzodiazepines AdvReac Other Verified 10/16/23 21:00 lorazepam [From Ativan] AdvReac Other Verified 10/16/23 21:00 DEPRESSION MEDS SSRI AdvReac Unknown Unknown Uncoded 10/16/23 20:58 sleeping medications AdvReac Unknown Unknown Uncoded 10/16/23 20:58 Review of Systems Review of Systems: All systems reviewed & are unremarkable except as noted in HPI and below PMFSH Past Medical History Medical History (Updated 10/16/23 @ 21:59 by Dony Cade MD) ADHD Ataxia Bipolar 1 disorder Depression Diaphoresis Headache, migraine Hypersomnia Hypertension IBS (irritable bowel syndrome) Obesity, Class III, BMI 40-49.9 (morbid obesity) Palpitations with regular cardiac rhythm (05/31/17) Panic attacks PCOS (polycystic ovarian syndrome) Periumbilical abdominal pain Previous known suicide attempt Seizure Tachycardia Surgical History Surgical History History of wisdom tooth extraction Family History Family History Mother Diabetes mellitus Family history of chronic obstructive pulmonary disease Family history of congestive heart failure Social History Social History Smoking status: Former smoker Course Vital Signs Vital signs: Vital Signs Temperature 36.9 C 10/16/23 20:44 Pulse Rate 112 H 10/16/23 20:44 Respiratory Rate 18 10/16/23 20:44 Blood Pressure 157/105 H 10/16/23 20:44 Pulse Oximetry 100 10/16/23 20:44 Oxygen Delivery Room Air 10/16/23 20:44 Temperature 36.9 C 10/16/23 20:44 Pulse Rate 94 10/16/23 21:37 Respiratory Rate 16 10/16/23 21:37 Blood Pressure 129/85 10/16/23 21:37 Pulse Oximetry 100 10/16/23 21:37 Oxygen Delivery Room Air 10/16/23 20:44 MDM - Arrhythmia/Palpitations MDM Narrative Medical decision making narrative: PATIENT PRESENTS WITH SKIPPED BEAT AND PALPITATION, VITAL SIGNS SHOWED BLOOD PRESSURE OF 157/105 PHYSICAL EXAM IS UNREMARKABLE DIFFERENTIAL DIAGNOSIS IS ANXIETY LIKE SYMPTOMS, PALPITATION, PVCS, ELECTROLYTE IMBALANCE, HYPERTHYROIDISM WORKUP TODAY SHOWED NO ACUTE ABNORMALITIES. PATIENT WAS ADVISED TO CONTINUE TAKING HYDRALAZINE AND FOLLOW UP WITH FAMILY PHYSICIAN NEXT WEEK. Differential Diagnosis Differential diagnosis: Likely other ( ABOVE) Medical Records Attestation: I reviewed the patient's medical records. Lab Data Attestation: I reviewed the patient's lab results. 10/16/23 20:55
[2023-10-16 21:05] LABS: Basophils Percent Auto 0.6 % (0.2-1.2); Eosinophils Absolute Auto 0.1 K/mm3 (0-0.3); Hematocrit 44.2 % (37.0-47.0); Hemoglobin 14.2 g/dL (12.0-15.0); Immature Granulocyte Absolute 0.01 K/mm3 (0.00-0.031); Immature Granulocyte Percent A 0.1 % (0-0.5); Lymphocytes Absolute Auto 2.37 K/mm3 (0.9-3.2); Lymphocytes Percent Auto 34.2 % (18.3-44.2); Mean Corpuscular HGB Conc 32.1 g/dl (32-36); Mean Corpuscular Hemoglobin 28.7 pg (26-34); Mean Corpuscular Volume 89.3 fl (80-100); Mean Platelet Volume 9.6 fl (7.4-10.4); Monocytes Absolute Auto 0.5 K/mm3 (0.1-0.6); Monocytes Percent Auto 6.6 % (2.6-8.5); Neutrophils Absolute Auto 3.9 K/mm3 (1.3-6.7); Neutrophils Percent Auto 56.5 % (45.5-73.1); Platelet Count Result 305 k/mm3 (150-375); Red Blood Count 4.95 M/mm3 (4.2-5.4); Red Cell Distribution Width 12.4 % (11.5-14.5); White Blood Count 6.9 K/mm3 (4.5-10.0)
[2023-10-16 21:15] LABS: Partial Thromboplastin Time 30.2 SECONDS (22.3-36.8); Prothrombin Time 13.1 Seconds (11.1-14.7)
[2023-10-16 21:16] LABS: Alanine Aminotransferase 17 U/L (6-35); Albumin Level 4.8 g/dL (3.5-5.1); Alkaline Phosphatase 75 U/L (38-126); Anion Gap 12 mmol/L (8-16); Aspartate Amino Transferase 28 U/L (14-36); Bilirubin,Total 0.6 mg/dL (0.2-1.3); Blood Urea Nitrogen 9 mg/dL (7-17); Calcium 9.3 mg/dL (8.4-10.2); Carbon Dioxide 23 mmol/L (22-30); Chloride 105 mmol/L (98-107); Estimated CRCL calculation 159 ml/min; Estimated Glomerular Filt Rate > 60; Glucose 119 mg/dL (65-110); Lipase 59 U/L (23-300); Potassium 3.7 mmol/L (3.4-5.0); Sodium 140 mmol/L (137-145)
[2023-10-16 21:27] LABS: Troponin I < 0.012 ng/mL (0.000-0.034)
[2023-10-16] MEDS: SODIUM CHLORIDE 0.9% IV 1,000 ML 999 ML IV CONT (21:32)
[2023-10-16 21:37] VITALS: BP 129/85; PULSE 94; RESP 16; O2SAT 100
[2023-10-16 21:43] LABS: Magnesium 1.9 mg/dL (1.6-2.3)
[2023-10-16 22:35] VITALS: PULSE 74; RESP 18; O2SAT 98
== END 2023-10-16 22:37 | disposition home or self-care (01) ==
PROVIDERS: Emergency Medicine; Emergency Provider Emergency Medicine; PCP Family Medicine
DX: R00.2 Palpitations (principal); F41.9 Anxiety disorder, unspecified; R00.0 Tachycardia, unspecified
CPT/HCPCS: 36415; 71045; 80053; 83690; 83735; 84443; 84484; 85025; 85610; 85730; 93005; 96360; 99284; J7030

== ENCOUNTER 2024-08-02 13:55 | Outpatient (CLI) | payer BC, SELFPAY ==
--- NOTE | ~2024-08-02 | US_ITS ---
EXAMINATION: US transvaginal DATE: 08/02/2024 14:18 INDICATION: Pelvic pain and pressure. TECHNIQUE: Multiple transvaginal sonographic images of the pelvis were obtained. COMPARISON: Ultrasound 03/19/2023 FINDINGS: The uterus measures 7.3 x 3.5 x 4.7 cm. There is no free fluid in the pelvis. The endometrial complex measures 5 mm in thickness. The right ovary measures 3.0 x 3.4 x 3.2 cm. There is vascular flow in r ight ovary. The left ovary is not visualized. IMPRESSION: 1. Normal uterus and right ovary. 2. Left ovary not visualized. Reviewed, dictated and finalized at location A.
== END 2024-08-02 13:56 | disposition home or self-care (01) ==
LOC: MICIMG 13:56
PROVIDERS: PCP Family Medicine; Visit Provider Nurse Practitioner
DX: R10.2 Pelvic and perineal pain (principal)
CPT/HCPCS: 76830

== ENCOUNTER 2024-10-26 09:34 | Emergency (ER) | payer BC, SELFPAY ==
--- NOTE | ~2024-10-26 | XR_ITS ---
XR chest 1V portable Ordering provider: Miguelito Hayden MD History: 34 years Female with . left sided CP . Comparison: October 16, 2023 FINDINGS: MEDIASTINUM: The cardiac silhouette is not enlarged. LUNGS: No infiltrates, effusions or pneumothorax. OTHER: No free air under the diaphragm. IMPRESSION: No acute cardiopulmonary pathology. Reviewed, dictated and finalized at location A. CHING MACHINE OPERATOR
[2024-10-26 09:55] VITALS: BP 168/90; PULSE 107; RESP 18; TEMP 36.9; O2SAT 100
--- NOTE | 2024-10-26 11:22 | ED_ITS ---
HPI - Nausea/Vomiting/Diarrhea General Chief complaint: Nausea/Vomiting/Diarrhea <Ginna Gill PA-C - Last Filed: 10/30/24 17:22> Stated complaint: POTS, diarrhea, requesting IVF <Ginna Gill PA-C - Last Filed: 10/30/24 17:22> Time Seen by Provider: 10/26/24 11:22 <Ginna Gill PA-C - Last Filed: 10/30/24 17:22> Focused HPI: This is a 34 year old female that presents to the ER for abdominal pain. Ongoing over the last couple of weeks. Reports she has had nausea and diarrhea. She does have history of IBS. Reports associated chest pain and pressure. Reports she has history of POTS and is concerned her electrolytes are out of wack . GENERAL: Well-appearing, well-nourished, and in no acute distress. HEAD: Normocephalic, atraumatic. CHEST: Clear to auscultation. ?No respiratory distress. HEART: Regular rate and rhythm.? NEURO: ?Alert and oriented x3. Patient screened in triage and initial orders placed.? ?Additional care and disposition to be based upon?diagnostic testing and treatment. <Ginna Gill PA-C - Last Filed: 10/30/24 17:22> History of Present Illness HPI Narrative: I agree with the above HPI <Miguelito Hayden MD - Last Filed: 10/26/24 18:59> Related Data Home medications: Home Medications ?Medication ?Instructions ?Recorded ?Confirmed ?Last Taken ?Type drospirenone (contraceptive) 4 mg 1 tablet PO DAILY 09/24/21 10/02/21 Unknown History (28) tablet (Slynd) <Ginna Gill PA-C - Last Filed: 10/30/24 17:22> Allergies/Adverse reactions: Allergies Allergy/AdvReac Type Severity Reaction Status Date / Time aripiprazole Allergy Mild Unknown Verified 10/26/24 12:08 paroxetine Allergy Unknown Unknown Verified 10/26/24 12:08 pseudoephedrine Allergy Unknown Unknown Verified 10/26/24 12:08 Benzodiazepines AdvReac Other Verified 10/26/24 12:08 lorazepam (From Ativan) AdvReac Other Verified 10/26/24 12:08 DEPRESSION MEDS SSRI AdvReac Unknown Unknown Uncoded 10/26/24 12:08 sleeping medications AdvReac Unknown Unknown Uncoded 10/26/24 12:08 <Ginna Gill PA-C - Last Filed: 10/30/24 17:22> Review of Systems 2 Review of Systems: All systems reviewed & are unremarkable except as noted in HPI and below <Miguelito Hayden MD - Last Filed: 10/26/24 18:59> FOR[facility]LY [facility] Past Medical History Medical History: Medical History (Updated 10/29/24 @ 00:00 by Background Dakrystal) Previous known suicide attempt Panic attacks Bipolar 1 disorder Depression ADHD PCOS (polycystic ovarian syndrome) IBS (irritable bowel syndrome) Hypertension Seizure Headache, migraine Ataxia Diaphoresis Hypersomnia Obesity, Class III, BMI 40-49.9 (morbid obesity) Palpitations with regular cardiac rhythm (05/31/17) Periumbilical abdominal pain Tachycardia <Ginna Gill PA-C - Last Filed: 10/30/24 17:22> Surgical History Surgical History: Surgical History History of wisdom tooth extraction <Ginna Gill PA-C - Last Filed: 10/30/24 17:22> Family History Family History: Family History Mother Diabetes mellitus Family history of chronic obstructive pulmonary disease Family history of congestive heart failure <Ginna Gill PA-C - Last Filed: 10/30/24 17:22> Social History Social History: Social History Smoking status: Former smoker <Ginna Gill PA-C - Last Filed: 10/30/24 17:22> Exam 2 Narrative: APPEARANCE: Well appearing, no pain, no distress, well-nourished. HEAD: normocephalic, atraumatic. EYES: PERRLA/EOMI, conjunctivae clear. NOSE: Normal no drainage EARS:TMS clear with good light reflex. THROAT: Pharynx clear, no exudate. NECK: Supple. No adenopathy, no masses. RESPIRATORY: Airway patent, respirations nonlabored. Clear to auscultation bilaterally, no rales, rhonchi, wheezing. CARDIOVASCULAR: Regular rate and rhythm without murmurs rubs or gallops. ABDOMINAL: Soft, nontender, nondistended, normal bowel sounds MUSCULOSKELETAL: Moves all extremities. Strength/ROM intact, No edema, No calf tenderness. NEURO: Alert. Cranial nerves II through XII intact. Good gait. Good coordination SKIN: Warm, dry. Normal Color <Miguelito Hayden MD - Last Filed: 10/26/24 18:59> Course Vital Signs Vital signs: Vital Signs Temperature 98.4 F 10/26/24 09:55 Pulse Rate 107 H 10/26/24 09:55 Respiratory Rate 18 10/26/24 09:55 Blood Pressure 168/90 H 10/26/24 09:55 Pulse Oximetry 100 10/26/24 09:55 Oxygen Delivery Room Air 10/26/24 09:55 Temperature 98.4 F 10/26/24 09:55 Pulse Rate 78 10/26/24 14:36 Respiratory Rate 14 10/26/24 14:36 Blood Pressure 138/74 10/26/24 14:36 Pulse Oximetry 99 10/26/24 14:36 Oxygen Delivery Room Air 10/26/24 12:05 <Ginna Gill PA-C - Last Filed: 10/30/24 17:22> Vital Signs Temperature 98.4 F 10/26/24 09:55 Pulse Rate 107 H 10/26/24 09:55 Respiratory Rate 18 10/26/24 09:55 Blood Pressure 168/90 H 10/26/24 09:55 Pulse Oximetry 100 10/26/24 09:55 Oxygen Delivery Room Air 10/26/24 09:55 Temperature 98.4 F 10/26/24 09:55 Pulse Rate 78 10/26/24 14:36 Respiratory Rate 14 10/26/24 14:36 Blood Pressure 138/74 10/26/24 14:36 Pulse Oximetry 99 10/26/24 14:36 Oxygen Delivery Room Air 10/26/24 12:05 <Miguelito Hayden MD - Last Filed: 10/26/24 18:59> MDM - Nausea/Vomiting/Diarrhea MDM Narrative Medical decision making narrative: 34-year-old female present to the emergency department for evaluation for left-sided pressure. Patient does have associated nausea vomiting. Patient's primary concern was the chest pain and she wanted make sure this was not cardiac. Patient is afebrile with no leukocytosis and hemoglobin of 14.2. Patient's INR is 1.0. Patient has no significant abnormalities on her CMP and patient had negative troponin. UA was positive for ketones but otherwise negative for infection. EKG showed normal sinus rhythm. Patient's symptoms have been ongoing for greater than 6 hours. Low concern for ACS. Patient was updated on the results of workup patient was comfortable plan for discharge and close follow-up. Chest x-ray showed no acute cardiopulmonary abnormality. <Miguelito Hayden MD - Last Filed: 10/26/24 18:59> Differential Diagnosis Differential diagnosis: Likely other (Atypical chest pain, pleurisy, ACS, PE, DVT, gastritis) < Miguelito Hayden MD - Last Filed: 10/26/24 18:59> Lab Data Attestation: I reviewed the patient's lab results. <Miguelito Hayden MD - Last Filed: 10/26/24 18:59> Result diagrams: 10/26/24 11:31 10/26/24 11:31 <Ginna Gill PA-C - Last Filed: 10/30/24 17:22> Labs: Lab Results 10/26/24 10/26/24 10/26/24 Range/Units 11:31 12:02 12:07 WBC 6.9 (4.5-10.0) K/mm3 RBC 4.79 (4.2-5.4) M/mm3 Hgb 14.2 (12.0-15.0) g/dL Hct 42.2 (37.0-47.0) % MCV 88.1 (80-100) fl MCH 29.6 (26-34) pg MCHC 33.6 (32-36) g/dl RDW 12.6 (11.5-14.5) % Plt Count 287 (150-375) k/mm3 MPV 9.1 (7.4-10.4) fl Immature Gran % (Auto) 0.3 (0-0.5) % Neut % (Auto) 74.2 H (45.5-73.1) % Lymph % (Auto) 18.2 L (18.3-44.2) % [place] % (Auto) 5.6 (2.6-8.5) % Eos % (Auto) 1.0 (0-4.4) % Baso % (Auto) 0.7 (0.2-1.2) % Lymph # (Auto) 1.26 (0.9-3.2) K/mm3 [place] # (Auto) 0.4 (0.1-0.6) K/mm3 Eos # (Auto) 0.1 (0-0.3) K/mm3 Baso # (Auto) 0.1 (0.0-0.1) K/mm3 Abs Immat Gran (auto) 0.02 (0.00-0.031) K/mm3 Absolute Neuts (auto) 5.1 (1.3-6.7) K/mm3 Absolute Nucleated RBC 0.000 (0.0-0.012) K/mm3 Nucleated RBC % 0.0 (0.0-0.2) % PT 13.9 (11.1-14.7) Seconds INR 1.0 APTT 27.0 (22.3-36.8) Seconds Sodium 139 (137-145) mmol/L Potassium 3.9 (3.4-5.0) mmol/L Chloride 110 H (98-107) mmol/L Carbon Dioxide 22 (22-30) mmol/L Anion Gap 7 (4-12) mmol/L BUN 7 (7-17) mg/dL Creatinine 0.50 L (0.7-1.0) mg/dL Estim Creat Clear Calc 182 ml/min Estimated GFR > 60 (59 - ) Glucose 111 H (65-110) mg/dL Calcium 9.2 (8.4-10.2) mg/dL Total Bilirubin 1.0 (0.2-1.3) mg/dL AST 22 (14-36) U/L ALT 12 (6-35) U/L Alkaline Phosphatase 66 (38-126) U/L Troponin I < 0.012 (0.000-0.034) ng/mL Total Protein 8.0 (6.3-8.2) g/dL Albumin 4.6 (3.5-5.1) g/dL Lipase 52 (23-300) U/L Urine Color Yellow (Yellow) Urine Appearance Clear (Clear) Urine pH 5.0 (5.0-9.0) Ur Specific [place] 1.015 (1.001-1.035) Urine Protein Negative (Negative) mg/dL Urine Glucose (UA) Negative (Negative) mg/dL Urine Ketones 1+ H (Negative) mg/dL Ur Blood (Man) Negative (Negative) Urine Nitrate Negative (Negative) Urine Bilirubin Negative (Negative) Urine Urobilinogen 0.2 (<2.0) mg/dL Leukocyte Esterase Rfl Trace H (Negative) ANGUS/UL Urine RBC 0-2 (0-2) /hpf Urine WBC 0-5 (0-3) /hpf Ur Squamous Epith Cells None seen (Few) /hpf Urine Bacteria Rare /hpf Urine Casts 0-2 POC Urine HCG, Qual Negative (Negative) <Ginna Gill PA-C - Last Filed: 10/30/24 17:22> Lab Results 10/26/24 10/26/24 10/26/24 Range/Units 11:31 12:02 12:07 WBC 6.9 (4.5-10.0) K/mm3 RBC 4.79 (4.2-5.4) M/mm3 Hgb 14.2 (12.0-15.0) g/dL Hct 42.2 (37.0-47.0) % MCV 88.1 (80-100) fl MCH 29.6 (26-34) pg MCHC 33.6 (32-36) g/dl RDW 12.6 (11.5-14.5) % Plt Count 287 (150-375) k/mm3 MPV 9.1 (7.4-10.4) fl Immature Gran % (Auto) 0.3 (0-0.5) % Neut % (Auto) 74.2 H (45.5-73.1) % Lymph % (Auto) 18.2 L (18.3-44.2) % [place] % (Auto) 5.6 (2.6-8.5) % Eos % (Auto) 1.0 (0-4.4) % Baso % (Auto) 0.7 (0.2-1.2) % Lymph # (Auto) 1.26 (0.9-3.2) K/mm3 [place] # (Auto) 0.4 (0.1-0.6) K/mm3 Eos # (Auto) 0.1 (0-0.3) K/mm3 Baso # (Auto) 0.1 (0.0-0.1) K/mm3 Abs Immat Gran (auto) 0.02 (0.00-0.031) K/mm3 Absolute Neuts (auto) 5.1 (1.3-6.7) K/mm3 Absolute Nucleated RBC 0.000 (0.0-0.012) K/mm3 Nucleated RBC % 0.0 (0.0-0.2) % PT 13.9 (11.1-14.7) Seconds INR 1.0 APTT 27.0 (22.3-36.8) Seconds Sodium 139 (137-145) mmol/L Potassium 3.9 (3.4-5.0) mmol/L Chloride 110 H (98-107) mmol/L Carbon Dioxide 22 (22-30) mmol/L Anion Gap 7 (4-12) mmol/L BUN 7 (7-17) mg/dL Creatinine 0.50 L (0.7-1.0) mg/dL Estim Creat Clear Calc 182 ml/min Estimated GFR > 60 (59 - ) Glucose 111 H (65-110) mg/dL Calcium 9.2 (8.4-10.2) mg/dL Total Bilirubin 1.0 (0.2-1.3) mg/dL AST 22 (14-36) U/L ALT 12 (6-35) U/L Alkaline Phosphatase 66 (38-126) U/L Troponin I < 0.012 (0.000-0.034) ng/mL Total Protein 8.0 (6.3-8.2) g/dL Albumin 4.6 (3.5-5.1) g/dL Lipase 52 (23-300) U/L Urine Color Yellow (Yellow) Urine Appearance Clear (Clear) Urine pH 5.0 (5.0-9.0) Ur Specific [place] 1.015 (1.001-1.035) Urine Protein Negative (Negative) mg/dL Urine Glucose (UA) Negative (Negative) mg/dL Urine Ketones 1+ H (Negative) mg/dL Ur Blood (Man) Negative (Negative) Urine Nitrate Negative (Negative) Urine Bilirubin Negative (Negative) Urine Urobilinogen 0.2 (<2.0) mg/dL Leukocyte Esterase Rfl Trace H (Negative) ANGUS/UL Urine RBC 0-2 (0-2) /hpf Urine WBC 0-5 (0-3) /hpf Ur Squamous Epith Cells None seen (Few) /hpf Urine Bacteria Rare /hpf Urine Casts 0-2 POC Urine HCG, Qual Negative (Negative) <Miguelito Hayden MD - Last Filed: 10/26/24 18:59> Imaging Data Radiologist's impression: Impressions Chest X-Ray 10/26/24 14:10 IMPRESSION: No acute cardiopulmonary pathology. <Miguelito Hayden MD - Last Filed: 10/26/24 18:59> Critical Care Time Critical Care Time Critical Care Time: No <Ginna Gill PA-C - Last Filed: 10/30/24 17:22> Discharge Plan Discharge Clinical Impression: Atypical chest pain <Ginna Gill PA-C - Last Filed: 10/30/24 17:22> Patient Disposition: Home, Self-Care <Ginna Gill PA-C - Last Filed: 10/30/24 17:22> Condition: Stable <Ginna Gill PA-C - Last Filed: 10/30/24 17:22> Instructions: Antibiotic Form, Chest Pain (ED) <Ginna Gill PA-C - Last Filed: 10/30/24 17:22> Additional Instructions: Have close follow-up with your primary care physician for additional outpatient cardiac testing. If you have any worsening symptoms then please call or return to the emergency department. <Ginna Gill PA-C - Last Filed: 10/30/24 17:22> Patient Language: Citizen Of [place] <Ginna Gill PA-C - Last Filed: 10/30/24 17:22> Prescriptions: No Action Slynd 4 mg (28) tablet 1 tablet PO DAILY azithromycin [Zithromax Z-Mike] 250 mg tablet See Rx Instructions .ROUTE .COMPLEX Qty: 6 0RF Rx Instructions: take 500 mg today (day 1), then 250 mg for 4 days (days 2-5) promethazine 50 mg tablet 50 mg PO Q6H PRN (Reason: nausea) Qty: 10 0RF ondansetron 4 mg tablet,disintegrating 4 mg PO Q8H PRN (Reason: nausea and vomiting) Qty: 14 0RF omeprazole 20 mg capsule,delayed release(DR/EC) 20 mg PO DAILY 14 Days Qty: 14 0RF <Ginna Gill PA-C - Last Filed: 10/30/24 17:22> Follow-up/Referrals: Yani,Trenton Washington MD [Primary Care Provider] - <Ginna Gill PA-C - Last Filed: 10/30/24 17:22>
--- NOTE | 2024-10-26 11:24 | ECG_ITS ---
Test Date: 2024-10-26 11:30:14 Measurements Intervals [place] Rate: 99 P: 18 MS: 144 QRS: -2 QRSD: 86 T: 9 QT: 337 QTc: 433 Interpretive Statements SINUS RHYTHM LOW QRS VOLTAGE IN PRECORDIAL LEADS [QRS DEFLECTION < 1.0 mV IN CHEST LEADS] NONSPECIFIC T-WAVE ABNORMALITY ABNORMAL ECG Electronically Signed On 10-26-2024 12:08:43 RECONCILIATION COORDINATOR by Lauri Valenzuela M.D.
[2024-10-26 11:43] LABS: Basophils Absolute Auto 0.1 K/mm3 (0.0-0.1); Basophils Percent Auto 0.7 % (0.2-1.2); Eosinophils Absolute Auto 0.1 K/mm3 (0-0.3); Hematocrit 42.2 % (37.0-47.0); Hemoglobin 14.2 g/dL (12.0-15.0); Immature Granulocyte Absolute 0.02 K/mm3 (0.00-0.031); Immature Granulocyte Percent A 0.3 % (0-0.5); Lymphocytes Absolute Auto 1.26 K/mm3 (0.9-3.2); Lymphocytes Percent Auto 18.2 % (18.3-44.2); Mean Corpuscular HGB Conc 33.6 g/dl (32-36); Mean Corpuscular Hemoglobin 29.6 pg (26-34); Mean Corpuscular Volume 88.1 fl (80-100); Mean Platelet Volume 9.1 fl (7.4-10.4); Monocytes Absolute Auto 0.4 K/mm3 (0.1-0.6); Monocytes Percent Auto 5.6 % (2.6-8.5); Neutrophils Absolute Auto 5.1 K/mm3 (1.3-6.7); Neutrophils Percent Auto 74.2 % (45.5-73.1); Platelet Count Result 287 k/mm3 (150-375); Red Blood Count 4.79 M/mm3 (4.2-5.4); Red Cell Distribution Width 12.6 % (11.5-14.5); White Blood Count 6.9 K/mm3 (4.5-10.0)
[2024-10-26 11:53] LABS: Alanine Aminotransferase 12 U/L (6-35); Albumin Level 4.6 g/dL (3.5-5.1); Alkaline Phosphatase 66 U/L (38-126); Anion Gap 7 mmol/L (4-12); Aspartate Amino Transferase 22 U/L (14-36); Blood Urea Nitrogen 7 mg/dL (7-17); Calcium 9.2 mg/dL (8.4-10.2); Carbon Dioxide 22 mmol/L (22-30); Chloride 110 mmol/L (98-107); Estimated CRCL calculation 182 ml/min; Estimated Glomerular Filt Rate > 60; Glucose 111 mg/dL (65-110); Lipase 52 U/L (23-300); Potassium 3.9 mmol/L (3.4-5.0); Sodium 139 mmol/L (137-145)
[2024-10-26 11:54] LABS: Prothrombin Time 13.9 Seconds (11.1-14.7)
[2024-10-26 12:05] VITALS: BP 160/91; PULSE 89; RESP 16; O2SAT 100
[2024-10-26 12:08] VITALS: BP 149/83; PULSE 91
[2024-10-26 12:08] LABS: BEDSIDEPREGUCG Negative (Negative)
--- NOTE | 2024-10-26 12:09 | PC.NURSE ---
Pt. refused zofran and famotidine at this time d/t not having any nausea, abdominal pain, chest pain or heartburn.
[2024-10-26 12:10] VITALS: BP 142/88; PULSE 90
[2024-10-26 12:12] VITALS: BP 133/108; PULSE 95
[2024-10-26] MEDS: SODIUM CHLORIDE 0.9% IV 1,000 ML 999 ML IV CONT (12:13)
[2024-10-26 12:16] LABS: Add Urine Microscopic? YES; Appearance Urine Clear (Clear); Bacteria Urine Rare /hpf; Bilirubin Urine Negative (Negative); Blood Urine Negative (Negative); Color Urine Yellow (Yellow); Glucose Urine UA Negative (Negative); Ketones Urine 1+ mg/dL (Negative); Leukocyte Esterase Ur Trace LEU/UL (Negative); Nitrate Urine Negative (Negative); Non Pathogenic Casts 0-2; Protein Urine Negative (Negative); RBC Urine 0-2 /hpf (0-2); Specific Grav Ur 1.015 (1.001-1.035); Squamous Epithelial Cell Urine None Seen /hpf (Few); Urobilinogen Urine 0.2 mg/dL (<2.0); WBC Urine 0-5 /hpf (0-3)
[2024-10-26 12:49] LABS: Troponin I < 0.012 ng/mL (0.000-0.034)
[2024-10-26 14:36] VITALS: BP 138/74; PULSE 78; RESP 14; O2SAT 99
--- NOTE | 2024-10-26 14:43 | PC.NURSE ---
Pt. left wallet at bedside. Pt. phoned at phone number on file to notify. Voicemail left.
== END 2024-10-26 14:38 | disposition home or self-care (01) ==
PROVIDERS: Physician Assistant; Emergency Provider Emergency Medicine; PCP Family Medicine
DX: R07.89 Other chest pain (principal); F41.9 Anxiety disorder, unspecified; F31.9 Bipolar disorder, unspecified; F90.9 Attention-deficit hyperactivity disorder, unspecified type; I10 Essential (primary) hypertension; E66.01 Morbid (severe) obesity due to excess calories; Z68.41 Body mass index [BMI] 40.0-44.9, adult
CPT/HCPCS: 36415; 71045; 80053; 81001; 81025; 83690; 84484; 85025; 85610; 85730; 93005; 96361; 96374; 96375; 99284; J7030

== ENCOUNTER 2024-10-28 14:32 | Emergency (ER) | payer BC, SELFPAY ==
--- NOTE | ~2024-10-28 | CT_ITS ---
CT abdomen pelvis w con Ordering provider: Miguelito Hayden MD History: 34 years Female with . Diffuse abdominal pain . Comparison: None. Technique: CT abdomen and pelvis with IV and without oral contrast. Automated exposure control and it erative reconstruction technique were employed. The dose-length product was 1575.78 mGy-cm. 100 mL Om nipaque 350 was given IV. Findings: VISUALIZED LOWER CHEST: Normal. Minimal pleural thickening in the left lung base posteriorly. UPPER ABDOMINAL ORGANS: Liver: Normal. Gallbladder: Normal. Spleen: Normal. Stomach/duodenum: Normal. Pancreas: Normal. Adrenals: Normal. Kidneys: Normal. PELVIC ORGANS: The bladder is underfilled. Left ovarian follicle measuring 1.7 cm. BOWEL AND MESENTERY: Colon: No evidence of diverticulitis.. Normal appendix. Small Bowel: Normal. No obstruction. Peritoneum/mesentery: No free air or free fluid. No mesenteric lymphadenopathy. RETROPERITONEUM: Normal aorta. No retroperitoneal lymphadenopathy. MUSCULOSKELETAL: Superficial soft tissues: The superficial soft tissues are normal. Bones: Normal spine. IMPRESSION: 1. No evidence of appendicitis, diverticulitis or intestinal obstruction. Reviewed, dictated and finalized at location A. R BELT CONVEYOR
[2024-10-28 17:00] VITALS: BP 131/92; PULSE 94; RESP 16; O2SAT 97
[2024-10-28 17:36] LABS: BEDSIDEPREGUCG Negative (Negative)
--- NOTE | 2024-10-28 17:38 | ED_ITS ---
HPI - General Adult General Chief complaint: Abdominal Pain Stated complaint: chest pressure Time Seen by Provider: 10/28/24 16:24 History of Present Illness HPI narrative: 34-year-old female presenting to the emergency department for evaluation for persistent abdominal pain. Patient was evaluated emergency department few days ago but states that her pain is worsened. Related Data Home Medications ?Medication ?Instructions ?Recorded ?Confirmed ?Last Taken ?Type drospirenone (contraceptive) 4 mg 1 tablet PO DAILY 09/24/21 10/02/21 Unknown History (28) tablet (Slynd) Allergies Allergy/AdvReac Type Severity Reaction Status Date / Time aripiprazole Allergy Mild Unknown Verified 10/26/24 12:08 paroxetine Allergy Unknown Unknown Verified 10/26/24 12:08 pseudoephedrine Allergy Unknown Unknown Verified 10/26/24 12:08 Benzodiazepines AdvReac Other Verified 10/26/24 12:08 lorazepam (From Ativan) AdvReac Other Verified 10/26/24 12:08 DEPRESSION MEDS SSRI AdvReac Unknown Unknown Uncoded 10/26/24 12:08 sleeping medications AdvReac Unknown Unknown Uncoded 10/26/24 12:08 Review of Systems 2 Review of Systems: All systems reviewed & are unremarkable except as noted in HPI and below PMFSH Past Medical History Medical History (Updated 10/28/24 @ 19:30 by Miguelito Hayden MD) Previous known suicide attempt Panic attacks Bipolar 1 disorder Depression ADHD PCOS (polycystic ovarian syndrome) IBS (irritable bowel syndrome) Hypertension Seizure Headache, migraine Ataxia Diaphoresis Hypersomnia Obesity, Class III, BMI 40-49.9 (morbid obesity) Palpitations with regular cardiac rhythm (05/31/17) Periumbilical abdominal pain Tachycardia Surgical History Surgical History History of wisdom tooth extraction Family History Family History Mother Diabetes mellitus Family history of chronic obstructive pulmonary disease Family history of congestive heart failure Social History Social History Smoking status: Former smoker Exam 2 Narrative: APPEARANCE: Well appearing, no pain, no distress, well-nourished. HEAD: normocephalic, atraumatic. EYES: PERRLA/EOMI, conjunctivae clear. NOSE: Normal no drainage EARS:TMS clear with good light reflex. THROAT: Pharynx clear, no exudate. NECK: Supple. No adenopathy, no masses. RESPIRATORY: Airway patent, respirations nonlabored. Clear to auscultation bilaterally, no rales, rhonchi, wheezing. CARDIOVASCULAR: Regular rate and rhythm without murmurs rubs or gallops. ABDOMINAL: Soft, nontender, nondistended, normal bowel sounds MUSCULOSKELETAL: Moves all extremities. Strength/ROM intact, No edema, No calf tenderness. NEURO: Alert. Cranial nerves II through XII intact. Grossly intact SKIN: Warm, dry. Normal Color Course Vital Signs Vital signs: Vital Signs Pulse Rate 94 10/28/24 17:00 Respiratory Rate 16 10/28/24 17:00 Blood Pressure 131/92 H 10/28/24 17:00 Pulse Oximetry 97 10/28/24 17:00 Pulse Rate 87 10/28/24 19:48 Respiratory Rate 19 10/28/24 19:48 Blood Pressure 130/83 10/28/24 19:48 Pulse Oximetry 100 10/28/24 19:48 Medical Decision Making MDM Narrative Medical decision making narrative: 34-year-old female present to the emergency department for evaluation for worsening diffuse abdominal pain. Patient is afebrile with no leukocytosis and a stable hemoglobin 13.4. No acute abnormalities on the patient's CMP. UA is concerning for urinary tract infection at this time. Patient was treated with a dose of IV Rocephin and will be started on Keflex. Patient will be provided Pyridium for urinary symptoms. Patient was updated results of the workup patient was comfortable plan for discharge and close follow-up. Differential Diagnosis Differential Diagnosis: Colitis, diverticulitis, cholecystitis, gastritis, UTI Vital Signs Vital Signs: Vital Signs Pulse Rate 94 10/28/24 17:00 Respiratory Rate 16 10/28/24 17:00 Blood Pressure 131/92 H 10/28/24 17:00 Pulse Oximetry 97 10/28/24 17:00 Pulse Rate 87 10/28/24 19:48 Respiratory Rate 19 10/28/24 19:48 Blood Pressure 130/83 10/28/24 19:48 Pulse Oximetry 100 10/28/24 19:48 Lab Data Lab results reviewed: Yes I reviewed the patient's lab results. 10/28/24 17:30 10/28/24 17:29 Labs: Lab Results 10/28/24 10/28/24 10/28/24 Range/Units 17:29 17:30 17:34 WBC 7.8 (4.5-10.0) K/mm3 RBC 4.56 (4.2-5.4) M/mm3 Hgb 13.4 (12.0-15.0) g/dL Hct 39.9 (37.0-47.0) % MCV 87.5 (80-100) fl MCH 29.4 (26-34) pg MCHC 33.6 (32-36) g/dl RDW 12.6 (11.5-14.5) % Plt Count 286 (150-375) k/mm3 MPV 9.3 (7.4-10.4) fl Immature Gran % (Auto) 0.3 (0-0.5) % Neut % (Auto) 67.7 (45.5-73.1) % Lymph % (Auto) 24.5 (18.3-44.2) % [place] % (Auto) 5.5 (2.6-8.5) % Eos % (Auto) 1.2 (0-4.4) % Baso % (Auto) 0.8 (0.2-1.2) % Lymph # (Auto) 1.90 (0.9-3.2) K/mm3 [place] # (Auto) 0.4 (0.1-0.6) K/mm3 Eos # (Auto) 0.1 (0-0.3) K/mm3 Baso # (Auto) 0.1 (0.0-0.1) K/mm3 Abs Immat Gran (auto) 0.02 (0.00-0.031) K/mm3 Absolute Neuts (auto) 5.3 (1.3-6.7) K/mm3 Absolute Nucleated RBC 0.000 (0.0-0.012) K/mm3 Nucleated RBC % 0.0 (0.0-0.2) % PT 13.9 (11.1-14.7) Seconds INR 1.0 APTT 28.1 (22.3-36.8) Seconds Sodium 139 (137-145) mmol/L Potassium 3.7 (3.4-5.0) mmol/L Chloride 111 H (98-107) mmol/L Carbon Dioxide 22 (22-30) mmol/L Anion Gap 6 (4-12) mmol/L BUN 7 (7-17) mg/dL Creatinine 0.50 L (0.7-1.0) mg/dL Estim Creat Clear Calc Not Reportable Estimated GFR > 60 (59 - ) Glucose 100 (65-110) mg/dL Calcium 8.8 (8.4-10.2) mg/dL Total Bilirubin 0.7 (0.2-1.3) mg/dL AST 23 (14-36) U/L ALT 11 (6-35) U/L Alkaline Phosphatase 59 (38-126) U/L Total Protein 7.0 (6.3-8.2) g/dL Albumin 4.5 (3.5-5.1) g/dL Urine Color Elsa (Yellow) Urine Appearance Cloudy H (Clear) Urine pH 5.5 (5.0-9.0) Ur Specific [place] 1.009 (1.001-1.035) Urine Protein 1+ H (Negative) mg/dL Urine Glucose (UA) Negative (Negative) mg/dL Urine Ketones 1+ H (Negative) mg/dL Ur Blood (Man) 3+ H (Negative) Urine Nitrate Negative (Negative) Urine Bilirubin Negative (Negative) Urine Urobilinogen 0.2 (<2.0) mg/dL Leukocyte Esterase Rfl 1+ H (Negative) ANGUS/UL Urine RBC >100 H (0-2) /hpf Urine WBC 11-20 H (0-3) /hpf Ur Squamous Epith Cells Occasional (Few) /hpf Urine Bacteria None seen /hpf Urine Casts 0-2 POC Urine HCG, Qual Negative (Negative) Imaging Data Radiologist's impression: Impressions Abdomen/Pelvis CT 10/28/24 18:08 IMPRESSION: 1. No evidence of appendicitis, diverticulitis or intestinal obstruction. Discharge Plan Discharge Clinical Impression: Nausea vomiting and diarrhea Patient Disposition: Home, Self-Care Condition: Stable Instructions: Antibiotic Form, Urinary Tract Infection in Women (DC), Clear Liquid Diet (ED), Acute Nausea and Vomiting (ED), Abdominal Pain (ED) Additional Instructions: Zofran as needed for nausea control. Clear liquid diet for the next 1-3 days. Have close follow-up with your primary care physician. If you have any worsening symptoms then please call or return to the emergency department. Patient Language: Macedonian Prescriptions: New ondansetron 4 mg tablet,disintegrating 4 mg PO Q8H PRN (Reason: nausea and vomiting) Qty: 14 0RF omeprazole 20 mg capsule,delayed release(DR/EC) 20 mg PO DAILY 14 Days Qty: 14 0RF No Action Slynd 4 mg (28) tablet 1 tablet PO DAILY azithromycin [Zithromax Z-Mike] 250 mg tablet See Rx Instructions .ROUTE .COMPLEX Qty: 6 0RF Rx Instructions: take 500 mg today (day 1), then 250 mg for 4 days (days 2-5) promethazine 50 mg tablet 50 mg PO Q6H PRN (Reason: nausea) Qty: 10 0RF Follow-up/Referrals: Yani,Trenton Washington MD [Primary Care Provider] -
[2024-10-28 17:40] LABS: Basophils Absolute Auto 0.1 K/mm3 (0.0-0.1); Basophils Percent Auto 0.8 % (0.2-1.2); Eosinophils Absolute Auto 0.1 K/mm3 (0-0.3); Eosinophils Percent Auto 1.2 % (0-4.4); Hematocrit 39.9 % (37.0-47.0); Hemoglobin 13.4 g/dL (12.0-15.0); Immature Granulocyte Absolute 0.02 K/mm3 (0.00-0.031); Immature Granulocyte Percent A 0.3 % (0-0.5); Lymphocytes Percent Auto 24.5 % (18.3-44.2); Mean Corpuscular HGB Conc 33.6 g/dl (32-36); Mean Corpuscular Hemoglobin 29.4 pg (26-34); Mean Corpuscular Volume 87.5 fl (80-100); Mean Platelet Volume 9.3 fl (7.4-10.4); Monocytes Absolute Auto 0.4 K/mm3 (0.1-0.6); Monocytes Percent Auto 5.5 % (2.6-8.5); Neutrophils Absolute Auto 5.3 K/mm3 (1.3-6.7); Neutrophils Percent Auto 67.7 % (45.5-73.1); Platelet Count Result 286 k/mm3 (150-375); Red Blood Count 4.56 M/mm3 (4.2-5.4); Red Cell Distribution Width 12.6 % (11.5-14.5); White Blood Count 7.8 K/mm3 (4.5-10.0)
[2024-10-28 17:45] LABS: Bacteria Urine None Seen /hpf; Non Pathogenic Casts 0-2; RBC Urine >100 /hpf (0-2); Squamous Epithelial Cell Urine Occasional /hpf (Few)
[2024-10-28 17:51] LABS: Alanine Aminotransferase 11 U/L (6-35); Albumin Level 4.5 g/dL (3.5-5.1); Alkaline Phosphatase 59 U/L (38-126); Anion Gap 6 mmol/L (4-12); Aspartate Amino Transferase 23 U/L (14-36); Bilirubin,Total 0.7 mg/dL (0.2-1.3); Blood Urea Nitrogen 7 mg/dL (7-17); Calcium 8.8 mg/dL (8.4-10.2); Carbon Dioxide 22 mmol/L (22-30); Chloride 111 mmol/L (98-107); Estimated Glomerular Filt Rate > 60; Glucose 100 mg/dL (65-110); Partial Thromboplastin Time 28.1 Seconds (22.3-36.8); Potassium 3.7 mmol/L (3.4-5.0); Prothrombin Time 13.9 Seconds (11.1-14.7); Sodium 139 mmol/L (137-145)
[2024-10-28] MEDS: SODIUM CHLORIDE 0.9% IV 1,000 ML 999 ML IV CONT (17:54)
[2024-10-28 17:58] LABS: Add Urine Microscopic? YES; Appearance Urine Cloudy (Clear); Bilirubin Urine Negative (Negative); Blood Urine 3+ (Negative); Glucose Urine UA Negative (Negative); Ketones Urine 1+ mg/dL (Negative); Leukocyte Esterase Ur 1+ LEU/UL (Negative); Nitrate Urine Negative (Negative); Protein Urine 1+ mg/dL (Negative); Specific Grav Ur 1.009 (1.001-1.035); Urobilinogen Urine 0.2 mg/dL (<2.0); pH Urine 5.5 (5.0-9.0)
[2024-10-28 18:00] LABS: Color Urine Amber (Yellow)
[2024-10-28 19:48] VITALS: BP 130/83; PULSE 87; RESP 19; O2SAT 100
--- OUTSIDE RECORDS SUMMARY | 2024-11-04 23:51 | XMS_ITS | Encounter Summary ---
Author Organization [facility] Address [address] [place] [address]. [place], [place] [address] [place] [address] Care Team Providers Care Back Panel Padder Name Role Phone Sergo Mackey MD Primary Care Provider Sergo Duncan MD Primary Care Provider Julian short Encounter Details Date Type Department Care Team (Latest Contact Info) Description 12/08/2016 Abstract [facility] Medical Group Sergo Mackey MD Social History Tobacco Use Types Packs/Day Years Used Date Smoking Tobacco: Never Assessed Comments Unknown Sex and Gender Information Value Date Recorded Sex Assigned at Not on file Legal Sex Female 5:18 PM CDT Gender Identity Not on file Sexual Orientation Not on file documented as of this encounter Plan of Treatment Not on file documented as of this encounter Procedures Procedure Name Priority Date/Time Associated Diagnosis Comments CELIAC DISEASE COMP PANEL Routine 12/08/2016 10:52 AM CHIEF OF SERVICE COMPREHENSIVE METABOLIC PANEL Routine 12/08/2016 10:52 AM CHIEF OF SERVICE CBC W/DIFF AUTOMATED Routine 12/08/2016 10:52 AM CHIEF OF SERVICE documented in this encounter Results * CELIAC DISEASE COMP PANEL (QST) (12/08/2016 10:52 AM CHIEF OF SERVICE) INTERPRETATION see note [facility] OUP TO EPIC CONVERSION Comment: Result Comment: No serological evidence of celiac disease. tTG IgA may normalize in individuals with celiac disease who maintain a gluten-free diet. Consider HLA DQ2 and DQ8 testing to rule out celiac disease. Celiac disease is extremely rare in the absence of DQ2 or DQ8. TISSUE TRANSGLUTAMINASE IGA AB 1 <4 U/mL [facility] TO EPIC CONVERSION Comment: Result Comment: ?Value ??Interpretation ?<4 U/mL: No Antibody Detected ? >or=4 U/mL: Antibody Detected IMMUNOGLOBULIN A 171 81 - 463 mg/dL [facility] TO EPIC CONVERSION Comment: Result Comment: Test Performed at: [facility]/[address] ? SHARI ODOM MD,PHD 12/08/2016 10:5 2 AM CHIEF OF SERVICE 12/08/2016 10:52 AM CHIEF OF SERVICE Narrative [facility] TO EPIC CONVERSION - 12/08/2016 10:58 AM CHIEF OF SERVICE Result Communication: No patient communication needed at this time Sergo Mackey MD LABORATORY Final Result [facility] TO EPIC CONVERSION * COMPREHENSIVE METABOLIC PANEL (12/08/2016 10:52 AM CHIEF OF SERVICE) GLUCOSE 99 65 - 99 mg/dL [facility] TO EPIC CONVERSION Comment: Result Comment: ? Fasting reference interval BUN 9 7 - 25 mg/dL [facility] TO EPIC CONVERSION CREATININE S/P/B 0.59 0.50 - 1.10 mg/dL [facility] TO EPIC CONVERSION EGFR NON-AFR. AMER. 128 > OR = 60 [facility] TO EPIC CONVERSION Comment:Result Comment: UNIT S: mL/min/1.73m2 EGFR AFR. AMER. 149 > OR = 60 [facility] ROUP TO EPIC CONVERSION Comment:Result Comment: UNIT S: mL/min/1.73m2 BUN CREATININE RATIO NOT APPLICABLE 6 - 22 (calc) [facility] TO EPIC CONVERSION SODIUM S/P/B 140 135 - 146 mmol/L [facility] TO EPIC CONVERSION POTASSIUM S/P/B 4.1 3.5 - 5.3 mmol/L [facility] TO EPIC CONVERSION CHLORIDE S/P/B 106 98 - 110 mmol/L [facility] TO EPIC CONVERSION CO2 25 20 - 31 mmol/L [facility] TO EPIC CONVERSION CALCIUM S/P/B 9.5 8.6 - 10.2 mg/dL [facility] TO EPIC CONVERSION PROTEIN 7.2 6.1 - 8.1 g/dL [facility] TO EPIC CONVERSION ALBUMIN S/P/B 4.3 3.6 - 5.1 g/dL [facility] TO EPIC CONVERSION GLOBULIN 2.9 1.9 - 3.7 [facility] T O EPIC CONVERSION Comment:Result Comment: UNIT S: g/dL (calc) ALBUMIN/GLOBULI N RATIO 1.5 1.0 - 2.5 (calc) [facility] TO EPIC CONVERSION BILIRUBIN TOTAL (FLUID) 0.4 0.2 - 1.2 mg/dL [facility] TO EPIC CONVERSION ALK PHOS 59 33 - 115 U/L [facility] TO EPIC CONVERSION AST 14 10 - 30 U/L [facility] TO EPIC CONVERSION ALT 16 6 - 29 U/L [facility] TO EPIC CONVERSION Comment: Result Comment: Test Performed at: [employer] [address] [place] [address] ??[id number] ? KALI HENDRICKS DO,MPH 12/08/2016 10:5 2 AM CHIEF OF SERVICE 12/08/2016 10:52 AM CHIEF OF SERVICE Narrative [facility] TO EPIC CONVERSION - 12/08/2016 10:58 AM CHIEF OF SERVICE Result Communication: No patient communication needed at this time Sergo Mackey MD LABORATORY Final Result [facility] TO EPIC CONVERSION * CBC W/DIFF AUTOMATED (12/08/2016 10:52 AM CHIEF OF SERVICE) Pathologist [facility] WBC 7.4 3.8 - 10.8 [facility] TO EPIC CONVERSION Comment:Result Comment: UNIT S: Thousand/uL Red Blood Cell Count 4.76 3.80 - 5.10 Million/uL [facility] TO EPIC CONVERSION HGB 13.7 11.7 - 15.5 g/dL [facility] TO EPIC CONVERSION HCT 41.4 35.0 - 45.0 % [facility] TO EPIC CONVERSION MCV 86.8 80.0 - 100.0 fL [facility] TO EPIC CONVERSION MCH (QHPE) 28.7 27.0 - 33.0 pg [facility] TO EPIC CONVERSION MCHC 33.0 32.0 - 36.0 g/dL [facility] TO EPIC CONVERSION RDW (QHPE) 13.2 11.0 - 15.0 % [facility] TO EPIC CONVERSION PLT 313 140 - 400 [facility] T O EPIC CONVERSION Comment:Result Comment: UNIT S: Thousand/uL MPV 8.1 7.5 - 12.5 fL [facility] TO EPIC CONVERSION ABS. NEUTROPHILS 4721 1500 - 7800 cells/uL [facility] TO EPIC CONVERSION ABS. LYMPHOCYTES 2220 850 - 3900 cells/uL [facility] TO EPIC CONVERSION ABS. MONOCYTES 281 200 - 950 cells/uL [facility] TO EPIC CONVERSION ABS. EOSINOPHILS 148 15 - 500 cells/uL [facility] TO EPIC CONVERSION ABS. BASOPHILS 30 0 - 200 cells/uL [facility] TO EPIC CONVERSION SEG NEUTROPHILS 63.8 % [facility] ROUP TO EPIC CONVERSION LYMPHOCYTES 30.0 % [facility] TO EPIC CONVERSION MONOCYTES 3.8 % [facility] T O EPIC CONVERSION EOSINOPHILS 2.0 % [facility] TO EPIC CONVERSION BASOPHILS 0.4 % [facility] T O EPIC CONVERSION Comment: Result Comment: ?? REPORT COMMENT: NO DRAW FEE 2ND ORDER,PT REFUSED SIMILAR TESTING LSCT0MD REQ FASTING:YES PATIENT REFUSED SOME TESTING; PATIENT ENCOURAGED Test Performed at: [facility] [address] ??[id number] ? KALI HENDRICKS DO,MPH 12/08/2016 10:5 2 AM CHIEF OF SERVICE 12/08/2016 10:52 AM CHIEF OF SERVICE Narrative [facility] TO EPIC CONVERSION - 12/08/2016 10:58 AM CHIEF OF SERVICE Result Communication: Call patient with results Sergo Mackey MD LABORATORY Final Result [facility] TO EPIC CONVERSION documented in this encounter Visit Diagnoses Not on filedocumented in this encounter Care Teams Back Panel Padder Relationship Specialty Start Date End Date Sergo Mackey MD PCP - General 04/07/17 Sergo Mackey MD PCP - General 08/05/16 04/06/17 documented as of this encounter
--- OUTSIDE RECORDS SUMMARY | 2024-11-04 23:51 | XMS_ITS | Encounter Summary ---
Author Organization [facility] Address [address] [place] [address]. [place], [place] [address] [place] [address] Care Team Providers Care Internal Security Manager Name Role Phone Sergo Mackey MD Primary Care Provider Sergo Duncan MD Primary Care Provider Julian short Encounter Details Date Type Department Care Team (Latest Contact Info) Description 03/17/2017 Abstract [facility] Medical Group Sergo Mackey MD Social History [...] on file documented as of this encounter Visit Diagnoses Not on filedocumented in this encounter Care Teams Internal Security Manager Relationship Specialty Start Date End Date Sergo Mackey MD PCP - General 04/07/17 Sergo Mackey MD PCP - General 08/05/16 04/06/17 documented as of this encounter
--- OUTSIDE RECORDS SUMMARY | 2024-11-04 23:51 | XMS_ITS | Encounter Summary ---
Author Organization [facility] Address [address] [place] [address]. [place], [place] [id number] [place] [address] Care Team Providers Care Motorcycle Builder Name Role Phone Sergo Mackey MD Primary Care Provider Sergo Duncan MD Primary Care Provider Julian short Encounter Details Date Type Department Care Team (Latest Contact Info) Description 03/15/2017 Abstract [facility] Medical Group Social History Tobacco Use Types Packs/Day Years [...] on filedocumented in this encounter Care Teams Motorcycle Builder Relationship Specialty Start Date End Date Sergo Mackey MD PCP - General 04/07/17 Sergo Mackey MD PCP - General 08/05/16 04/06/17 documented as of this encounter
--- OUTSIDE RECORDS SUMMARY | 2024-11-04 23:51 | XMS_ITS | Encounter Summary ---
Author Organization [facility] Address [address] [place] [address]. [place], [place] [address] [place] [address] Care Team Providers Care Chief Informatics Officer Name Role Phone Sergo Mackey MD Primary Care Provider Julian short Encounter Details Date Type Department Care Team (Latest Contact Info) Description 06/18/2017 Abstract [facility] Medical Group Social History Tobacco Use Types [...] on filedocumented in this encounter Care Teams Chief Informatics Officer Relationship Specialty Start Date End Date Sergo Mackey MD PCP - General 04/07/17 documented as of this encounter
--- OUTSIDE RECORDS SUMMARY | 2024-11-04 23:51 | XMS_ITS | Encounter Summary ---
Author Organization [facility] - [facility] Address [address] [place] [address]. [place], [place] [id number] [place] [address] Care Team Providers Care Kettle Firer Name Role Phone Sergo Mackey MD Primary Care Provider Julian short Encounter Details Date Type Department Care Team (Latest Contact Info) Description 08/19/2017 Abstract [facility] Medical Group Social History Tobacco Use [...] on filedocumented in this encounter Care Teams Kettle Firer Relationship Specialty Start Date End Date Sergo Mackey MD PCP - General 04/07/17 documented as of this encounter
--- OUTSIDE RECORDS SUMMARY | 2024-11-04 23:51 | XMS_ITS | Encounter Summary ---
Author Organization [facility] Address [facility] [place] [address] [place] [address] Care Team Providers Care Legislators Name Role Phone Sergo Mackey MD Primary Care Provider Julian short Encounter Details Date Type Department Care Team (Late st Contact Info) Description 04/07/2017 Abstract [facility] Medical Group Family & Internal Medicine [address] [phone] Sergo Mackey MD Social History Tobacco Use Types Packs/Day Years Used Date Smoking Tobacco: Never Assessed Comments Unknown Sex and Gender Information Value Date Recorded Sex Assigned at Not on file Legal Sex Female 5:18 PM CDT Gender Identity Not on file Sexual Orientation Not on file documented as of this encounter Last Filed Vital Signs Vital Sign Reading Time Taken Comments Blood Pressure 136/90 04/07/2017 8:18 AM CDT Pulse 119 04/07/2017 8:18 AM CDT Temperature - - Respiratory Rate - - Oxygen Saturation - - Inhaled Oxygen Concentration - - Weight 134.3 kg (296 lb) 04/07/2017 8:18 AM CDT Height 172.7 cm (5' 8 ) 04/07/2017 8:18 AM CDT Body Mass Index 45.01 04/07/2017 8:18 AM CDT documented in this encounter Progress Notes * Sergo Mackey MD - 04/07/2017 8:20 AM CDT Reason For Visit Reason For Visit: Acute Visit Chief Complaint Patient c/o dizziness, palpitations and weakness for 10 days History of Present Illness REALM SF: Date: 04/07/2017 Examiner: FARIBA Marin Completed: 12 Reading Level: 12 Can Pronounce: Menopause, Antibiotics, Exercise, Jaundice, Rectal, Anemia, Behavior Unable to Pronounce: HPI Free Text: Here complaining of dizziness and general weakness for the last week or two. She sometimes feeling she is going to faint. She is also having palpitations. Her only other specific symptoms his some burning on urination. Review of Systems See HPI for pertinent positives. Active Problems 1. Abdominal cramping, generalized (789.07) (R10.84) 2. Abnormal ultrasound of abdomen (793.6) (R93.5) 3. Abnormal urine finding (791.9) (R82.90) 4. Allergic rhinitis (477.9) (J30.9) 5. Antibiotic-induced yeast infection (112.9) (B37.9,T36.95XA) 6. Atypical chest pain (786.59) (R07.89) 7. Bilateral otitis externa (380.10) (H60.93) 8. Bilateral otitis media (382.9) (H66.93) 9. Bipolar mood disorder (296.80) (F31.9) 10. Chronic diarrhea (787.91) (K52.9) 11. Continuous RUQ abdominal pain (789.01) (R10.11) 12. Elevated blood pressure 13. Fever (780.60) (R50.9) 14. Flushing (782.62) (R23.2) 15. Headache (784.0) (R51) 16. Hematuria (599.70) (R31.9) 17. Hyperglycemia (790.29) (R73.9) 18. Hypertension (401.9) (I10) 19. IBS (irritable bowel syndrome) (564.1) (K58.9) 20. Leukocytes in urine (791.7) (R82.99) 21. Neck pain (723.1) (M54.2) 22. Palpitations (785.1) (R00.2) 23. Panic disorder without agoraphobia (300.01) (F41.0) 24. PCOS (polycystic ovarian syndrome) (256.4) (E28.2) 25. Recurrent urinary tract infection (599.0) (N39.0) 26. Urinary frequency (788.41) (R35.0) 27. Vitamin d deficiency (268.9) (E55.9) 28. Vomiting and diarrhea (787.03,787.91) (R11.10,R19.7) Past Medical History Patient indicats no significant past medical history. Surgical History 1. History of Oral Surgery Tooth Extraction Family History Mother 1. Family history of diabetes mellitus (V18.0) (Z83.3) 2. Family history of hypertension (V17.49) (Z82.49) Social History ?? Never a smoker ?? Single Current Meds 1. Chlordiazepoxide-Clidinium 5-2.5 MG Oral Capsule; TAKE ONE CAPSULE BY MOUTH TWICE DAILY; Therapy: 13Aug2016 to (Evaluate:33Lvc2812) Requested for: 21Sep2016; Last Rx:[id number] Ordered Rx By: Nellie Moy; Dispense: 30 Days ; #:60 Capsule; Refill: 0; For: Abdominal cramping, generalized; JULIANA = N; Print Rx; Last Updated By: [facility]; 09/21/2016 8:25:38 AM 2. ClonazePAM 1 MG Oral Tablet; TAKE 1 TABLET BY MOUTH THREE TIMES DAILY NEEDED; Therapy: 10Sep2016 to (Evaluate:01Feb2017) Requested for: 99Ofw8432; Last Rx:[id number] Ordered Rx By: Sergo Mackey; Dispense: 30 Days ; #:90 Tablet; Refill: 1; For: Bipolar mood disorder; JULIANA = N; Print Rx 3. Fluticasone Propionate 50 MCG/ACT Nasal Suspension; USE 2 SPRAYS IEN QD; Therapy: [id number] to (Evaluate:15Apr2017) Requested for: 92Oro1707; Last Rx:[id number] Ordered Rx By: Sergo Mackey; Dispense: 30 Days ; #:1 X 16 GM Bottle; Refill: 0; For: Allergic rhinitis;JULIANA = N; Verified Transmission to [facility] [id number]; Last Updated By: [facility];03/16/2017 3:38:23 PM Allergies 1. 12 Hour Decongestant TB12 Recorded By: Shirley Zhang; 04/10/2014 3:10:36 PM Vitals Recorded: 07Apr2017 08:18AM Heart Rate 119 Respiration 16 Systolic 136 Diastolic 90 O2 Saturation 98 Height 5 ft 8 in Weight 296 lb BMI Calculated 45.01 BSA Calculated 2.41 Physical Exam Constitutional General appearance: No acute distress, well appearing and well nourished. not uncomfortable. Pulmonary Respiratory effort: No increased work of breathing or signs of respiratory distress. Auscultation of lungs: Clear to auscultation. Cardiovascular Auscultation of heart: Normal rate and rhythm, normal S1 and S2, without murmurs. Examination of extremities for edema and/or varicosities: Normal. Abdomen Abdomen: Non-tender, no masses. Lymphatic Palpation of lymph nodes in neck: No lymphadenopathy. Musculoskeletal Gait and station: Normal. Assessment 1. Near syncope (780.2) (R55) 2. Dizziness (780.4) (R42) 3. Dysuria (788.1) (R30.0) Plan Her symptoms are identical and consistent with complaints she has had for years. They occur in the midst of multiple normal workups including extensive cardiac and neurologic attention. She has had multiple negative laboratory studies, MRI of the brain, EEG and cardiac testing. Recently she had normal labs 03/17/17 and a normal neurologic evaluation on 02/18/17. Her most recent heart monitoring for an entire week was in December of this year. She's also had multiple ER evaluations without objective findings. Neurology Referral Outpatient For: Near syncope For: Dizziness Status: Need Information - Financial Authorization Requested for: 07Apr2017 Ordered; For: Dizziness, Near syncope; Ordered By: Sergo Mackey Performed: Due: 21Apr2017; Last Updated By: Fariba Garvey; 04/08/2017 1:56:06 PM *Urine dip auto In Office; Status:Resulted - Requires Verification; Done: [id number] 12:00AM Last Updated By:Angela Lal; 04/11/2017 9:30:11 AM;Ordered; For:Dysuria; Ordered By:Sergo Mackey; Signatures Electronically signed by : Sergo Mackey M.D.; Apr 11 2017 5:12PM COTTRELL BLOWER (Author) documented in this encounter Plan of Treatment Not on file documented as of this encounter Procedures Procedure Name Priority Date/Time Associated Diagnosis Comments URINALYSIS AUTO DIP Routine 04/07/2017 9 :48 AM CDT URINE BACTERIA CULTURE Routine 04/07/2017 8:54 AM CDT URINALYSIS, AUTO, COMPLETE Routine 04/07/2017 8:54 AM CDT documented in this encounter Results * (ABNORMAL) URINALYSIS AUTO DIP (04/07/2017 9:48 AM CDT) COLOR (U) Yellow [facility] T O EPIC CONVERSION TRANSPARENCY Clear [facility] P TO EPIC CONVERSION GLUCOSE Negative [facility] T O EPIC CONVERSION BILIRUBIN (U) Negative [facility] UP TO EPIC CONVERSION KETONE (U) 5 mg/dL-Trace( A) [facility] TO EPIC CONVERSION SPECIFIC GRAVITY (U) 1.020 [facility] TO EPIC CONVERSION BLOOD (U) Negative [facility] T O EPIC CONVERSION PH (U) 7.0 5.0 - 7.0 [facility] T O EPIC CONVERSION PROTEIN (ELP) (U) Negative [facility] TO EPIC CONVERSION UROBILINOGEN 1.0 E.U./dL(A) [facility] TO EPIC CONVERSION NITRITES neg [facility] T O EPIC CONVERSION LEUKOCYTES (U) Negative [facility] OUP TO EPIC CONVERSION 04/07/2017 9:48 AM CDT 04/07/2017 9:48 AM CDT Narrative [facility] TO EPIC CONVERSION - 04/07/2017 9:48 AM CDT Result Communication: No patient communication needed at this time us Sergo Mackey MD URINE ORDERABLES Final Result [facility] TO EPIC CONVERSION * (ABNORMAL) URINALYSIS, AUTO, COMPLETE (04/07/2017 8:54 AM CDT) SPECIMEN TYPE URINE CLEAN CATCH [facility] TO EPIC CONVERSION COLOR (U) YELLOW [facility] T O EPIC CONVERSION TRANSPARENCY CLOUDY [facility] P TO EPIC CONVERSION U PH 6.0 5.0 - 9.0 [facility] T O EPIC CONVERSION SPECIFIC GRAVITY (U) 1.026 1.001 - 1.030 [facility] TO EPIC CONVERSION PROTEIN (U) NEGATIVE <30 MG/DL [facility] TO EPIC CONVERSION GLUCOSE NEGATIVE NEG MG/DL [facility] T O EPIC CONVERSION KETONES MG/DL (U) NEGATIVE NEG MG/DL [facility] TO EPIC CONVERSION BLOOD (U) NEGATIVE NEG [facility] T O EPIC CONVERSION NITRITES NEGATIVE NEG [facility] T O EPIC CONVERSION BILIRUBIN (U) NEGATIVE NEG MG/DL [facility] UP TO EPIC CONVERSION UROBILINOGEN 2.0(A) NEG MG/DL [facility] P TO EPIC CONVERSION LEUKOCYTES (U) NEGATIVE NEG [facility] OUP TO EPIC CONVERSION RBC/HPF 3 <6 /HPF [facility] T O EPIC CONVERSION WBC 1 <6 /HPF [facility] T O EPIC CONVERSION SQUAMOUS EPITHELIALS MANY /LPF [facility] TO EPIC CONVERSION MUCUS RARE /LPF [facility] T O EPIC CONVERSION 04/07/2017 8:54 AM CDT 04/07/2017 8:54 AM CDT Narrative [facility] TO EPIC CONVERSION - 04/07/2017 8:01 PM CDT Result Communication: No patient communication needed at this time us Sergo Mackey MD URINE ORDERABLES Final Result Performing Organization Address [facility] de Phone Number [facility] TO EPIC CONVERSION * CULTURE URINE (04/07/2017 8:54 AM CDT) CULTURE URINE SPECIMEN DESCRIPTION ? - URINE CLEAN CATCH SPECIAL REQUESTS ? - NO SPECIAL REQUEST CULTURE ?- POLYMICROBIAL GROWTH CONSISTENT WITH NORMAL GENITAL NIKHIL. ??SUSCEPTIBILITIE S NOT CULTURE ?- ??ROUTINELY PERFORMED. REPORT STATUS ?- FINAL 04/10/2017 [facility] TO EPIC CONVERSION 04/07/2017 8:54 AM CDT 04/07/2017 8:54 AM CDT Narrative [facility] TO EPIC CONVERSION - 04/10/2017 10:09 AM CDT Result Communication: Call patient with results us Sergo Mackey MD MICROBIOLOGY - GENERAL ORDERA BLES Final Result Performing Organization Address [facility] Co de Phone Number [facility] TO EPIC CONVERSION documented in this encounter Visit Diagnoses Not on filedocumented in this encounter Care Teams Legislators Relationship Specialty Start Date End Date Sergo Mackey MD PCP - General 04/07/17 documented as of this encounter
--- OUTSIDE RECORDS SUMMARY | 2024-11-04 23:51 | XMS_ITS | Encounter Summary ---
Author Organization [facility] Address [address] [place] [address]. [place], [place] [address] [place] [address] Care Team Providers Care Principal Database Developer Name Role Phone Sergo Mackey MD Primary Care Provider Julian short Encounter Details Date Type Department Care Team (Latest Contact Info) Description 08/10/2018 Abstract [facility] Medical Group James Luther MD Social History Tobacco Use Types Packs/Day [...] on filedocumented in this encounter Care Teams Principal Database Developer Relationship Specialty Start Date End Date Sergo Mackey MD PCP - General 04/07/17 documented as of this encounter
--- OUTSIDE RECORDS SUMMARY | 2024-11-04 23:51 | XMS_ITS | Encounter Summary ---
Author Organization [facility] Address [facility] [place] [address] [place] [address] Care Team Providers Care Tank Car Inspector Name Role Phone Sergo Mackey MD Primary Care Provider Sergo Duncan MD Primary Care Provider Julian short Encounter Details Date Type Department Care Team (Late st Contact Info) Description 03/16/2017 Abstract [facility] Medical Group Family & Internal Medicine [address] [phone] Sergo Mackey MD Social History Tobacco Use [...] Sign Reading Time Taken Comments Blood Pressure 126/88 03/16/2017 3:23 PM CDT Pulse 103 03/16/2017 3:23 PM CDT Temperature - - Respiratory Rate - - Oxygen Saturation - - Inhaled Oxygen Concentration - - Weight 131.1 kg (289 lb) 03/16/2017 3:23 PM CDT Height 172.7 cm (5' 8 ) 03/16/2017 3:23 PM CDT Body Mass Index 43.94 03/16/2017 3:23 PM CDT documented in this encounter Progress Notes * Sergo Mackey MD - 03/16/2017 3:00 PM CDT Reason For Visit Reason For Visit: Acute Visit Chief Complaint Patient c/o head congestion , bloody nose and intermittent fever and chills. History of Present Illness HPI Free Text: Here complaining of fevers, bloody nasal drainage, head congestion, and night sweats. She notes that her symptoms have been bothering her on and off for about 5 days or so. She reports she just generally feels ill which really worries her. She has been checking her temperatures which are usually at98 or 99.1, but she has noted them to be at 100s or 99.8 for the past few nights. She states she had routine labs done back in December with her HEAD HOST/HOSTESS. She is interested in doing repeat labs. She claims she had a sleep apnea test but could not sleep because she had an anxiety attack. She also did have a heart monitor test, magnesium test and serotonin test with her vacuum bottle assembler along with a urine sample test. She is wondering about taking some allergy medicine for the stuffiness. States she only takes Zoloft at night. She agrees to do nasal spray. Review of Systems See HPI for pertinent positives. Active Problems 1. Abdominal cramping, generalized (789.07) (R10.84) 2. Abnormal ultrasound of abdomen (793.6) (R93.5) 3. Abnormal urine finding (791.9) (R82.90) 4. Antibiotic-induced yeast infection (112.9) (B37.9,T36.95XA) 5. Bilateral otitis externa (380.10) (H60.93) 6. Bilateral otitis media (382.9) (H66.93) 7. Bipolar mood disorder (296.80) (F31.9) 8. Chronic diarrhea (787.91) (K52.9) 9. Continuous RUQ abdominal pain (789.01) (R10.11) 10. Elevated blood pressure 11. Flushing (782.62) (R23.2) 12. Headache (784.0) (R51) 13. Hematuria (599.70) (R31.9) 14. Hyperglycemia (790.29) (R73.9) 15. Hypertension (401.9) (I10) 16. Leukocytes in urine (791.7) (R82.99) 17. Neck pain (723.1) (M54.2) 18. Palpitations (785.1) (R00.2) 19. Panic disorder without agoraphobia (300.01) (F41.0) 20. PCOS (polycystic ovarian syndrome) (256.4) (E28.2) 21. Recurrent urinary tract infection (599.0) (N39.0) 22. Urinary frequency (788.41) (R35.0) 23. Vitamin d deficiency (268.9) (E55.9) 24. Vomiting and diarrhea (787.03,787.91) (R11.10,R19.7) Past Medical [...] BY MOUTH TWICE DAILY; Therapy: 13Aug2016 to (Evaluate:[id number]) Requested for: 21Sep2016; Last Rx:21Sep2016 Ordered Rx By: Nellie Moy; Dispense: 30 Days ; #:60 Capsule; Refill: 0; For: Abdominal cramping, generalized; JULIANA = N; Print Rx; Last Updated By: [employer]; 09/21/2016 8:25:38 AM 2. ClonazePAM 1 MG Oral Tablet; TAKE 1 TABLET BY MOUTH THREE TIMES DAILY NEEDED; Therapy: 10Sep2016 to (Evaluate:01Feb2017) Requested for: 03Dec2016; Last Rx:03Dec2016 Ordered Rx By: Sergo Mackey; Dispense: 30 Days ; #:90 Tablet; Refill: 1; For: Bipolar mood disorder; JULIANA = N; Print Rx Allergies 1. 12 Hour Decongestant TB12 Recorded By: Shirley Zhang; 04/10/2014 3:10:36 PM Vitals Recorded: [id number] 03:23PM Temperature 98.7 F Heart Rate 103 Respiration 16 Systolic 126 Diastolic 88 O2 Saturation 97 Height 5 ft 8 in Weight 289 lb BMI Calculated 43.94 BSA Calculated 2.39 Physical Exam Ears, Nose, Mouth, and Throat External inspection of ears and nose: Normal. Otoscopic examination: Tympanic membranes translucent with normal light reflex. Canals patent without erythema. Oropharynx: Normal with no erythema, edema, exudate or lesions. Pulmonary Respiratory effort: No increased work of breathing or signs of respiratory distress. Auscultation of lungs: Clear to auscultation. Cardiovascular Auscultation of heart: Normal rate and rhythm, normal S1 and S2, without murmurs. Examination of extremities for edema and/or varicosities: Normal. Lymphatic Palpation of lymph nodes in neck: No lymphadenopathy. Musculoskeletal Gait and station: Normal. Assessment 1. Fever (780.60) (R50.9) 2. IBS (irritable bowel syndrome) (564.1) (K58.9) 3. Atypical chest pain (786.59) (R07.89) Plan Allergic rhinitis 1. Fluticasone Propionate 50 MCG/ACT Nasal Suspension; USE 2 SPRAYS IEN QD Rx By: Sergo Mackey; Dispense: 30 Days ; #:1 X 16 GM Bottle; Refill: 0; For: Allergic rhinitis;JULIANA = N; Verified Transmission to [facility] 46223; Last Updated By: Vello App;03/16/2017 3:38:23 PM Atypical chest pain, Fever, IBS (irritable bowel syndrome) 2. CBC W Differential; Status:Hold For - Manual Activation; Requested for:16Mar2017; Perform:[facility]; Due:15Apr2017; Last Updated By:Fariba Garvey; 03/16/2017 3:36:44 PM;Ordered; For:Atypical chest pain, Fever, IBS (irritable bowel syndrome); Ordered By:Sergo Mackey; 3. Compr Metabolic Prof ( CMP ); Status:Hold For - Manual Activation; Requested for:16Mar2017; Perform:[facility]; Due:15Apr2017; Last Updated By:Fariba Garvey; 03/16/2017 3:36:44 PM;Ordered; For:Atypical chest pain, Fever, IBS (irritable bowel syndrome); Ordered By:Sergo Mackey; 4. Free T4 ( Thyroxine ); Status:Hold For - Manual Activation; Requested for:16Mar2017; Perform:[facility]; Due:15Apr2017; Last Updated By:Fariba Garvey; 03/16/2017 3:36:44 PM;Ordered; For:Atypical chest pain, Fever, IBS (irritable bowel syndrome); Ordered By:Sergo Mackey; 5. Thyroid Stim Hormone ( TSH ); Status:Hold For - Manual Activation; Requested for:[id number]; [facility]; Due:50Teh8454; Last Updated By:Fariba Garvey; 03/16/2017 3:36:44 PM;Ordered; For:Atypical chest pain, Fever, IBS (irritable bowel syndrome); Ordered By:Sergo Mackey; She will continue her current medicines and specialty followup. Signatures Electronically signed by : Sergo Mackey M.D.; Mar 21 2017 10:10PM ROAD FREIGHT CONDUCTOR (Author) documented in this encounter Plan of Treatment Not on file documented as of this encounter Visit Diagnoses Not on filedocumented in this encounter Care Teams Tank Car Inspector Relationship Specialty Start Date End Date Sergo Mackey MD PCP - General 04/07/17 Sergo Mackey MD PCP - General 08/05/16 04/06/17 documented as of this encounter
--- OUTSIDE RECORDS SUMMARY | 2024-11-04 23:51 | XMS_ITS | Encounter Summary ---
Author Organization [facility] Address [address] [place] [address]. [place] [address] [place] [address] Care Team Providers Care Cleaning Manager Name Role Phone Sergo Mackey MD Primary Care Provider Julian short Encounter Details Date Type Department Care Team (Latest Contact Info) Description 07/15/2017 Abstract [facility] Medical Group Social History Tobacco Use Types Packs/Day Years Used Date Smoking Tobacco: Never Assessed Comments Unknown Sex and Gender Information Value Date Recorded Sex Assigned at Not on file Legal Sex Female 5:18 PM CDT Gender Identity Not on file Sexual Orientation Not on file documented as of this encounter Progress Notes * Sergo Mackey MD - 07/15/2017 7:01 AM CDT Message PT NOTIFIED, RX SENT AND LAB ORDER MAILED ---NK Verified Results LC-Vitamin B12 [id number] 01:54PM Sergo Mackey Test Name Result Flag Reference Vitamin B12 580 pg/mL 211-946 LC-Vitamin D, 25-Hydroxy 021709 13Huo4042 01:54PM Sergo Mackey Test Name Result Flag Reference Vitamin D, 25-Hydroxy 15.7 ng/mL L 30.0-100.0 Vitamin D deficiency has been defined by the [place] of Medicine and an Endocrine Society practice guideline as a level of serum 25-OH vitamin D less than 20 ng/mL (1,2). The Endocrine Society went on to further define vitamin D insufficiency as a level between 21 and 29 ng/mL (2). 1. IOM ([place] of Medicine). 2010. Dietary reference intakes for calcium and D. [place]: The National Academies Press. 2. Brian MF, Cam [place], Nereyda STARK, et al. Evaluation, treatment, and prevention of vitamin D deficiency: an Endocrine Society clinical practice guideline. JCEM. 2010; 96(7):1911-30. Discussion/Summary Vitamin B12 is normal. Vitamin D is low at 16. Would like this closer to 40. Recommend 50,000 international units weekly. Recheck in eight weeks Signatures Electronically signed by : Berenice Barone MA; Jul 15 2017 3:52PM BOBBIN DOFFER (Author) documented in this encounter Plan of Treatment Not on file documented as of this encounter Visit Diagnoses Not on filedocumented in this encounter Care Teams Cleaning Manager Relationship Specialty Start Date End Date Sergo Mackey MD PCP - General 04/07/17 documented as of this encounter
--- OUTSIDE RECORDS SUMMARY | 2024-11-04 23:51 | XMS_ITS | Encounter Summary ---
Author Organization [facility] Address [address] [place] [address]. [place], [place] [address] [place] [address] Care Team Providers Care Endoscopy Technican Name Role Phone Sergo Mackey MD Primary Care Provider Julian short Encounter Details Date Type Department Care Team (Latest Contact Info) Description 09/06/2018 Scan [facility] Medical Group James Luther MD Social History [...] on filedocumented in this encounter Care Teams Endoscopy Technican Relationship Specialty Start Date End Date Sergo Mackey MD PCP - General 04/07/17 documented as of this encounter
--- OUTSIDE RECORDS SUMMARY | 2024-11-04 23:51 | XMS_ITS | Encounter Summary ---
Author Organization [facility] Address [address] [place] [address]. [place] [address] [place] [address] Care Team Providers Care Orthotist Prosthetist Name Role Phone Sergo Mackey MD Primary Care Provider Julian short Encounter Details Date Type Department Care Team (Latest Contact Info) Description 04/21/2017 Abstract [facility] Medical Group Social History Tobacco Use Types Packs/Day Years Used Date Smoking Tobacco: Never Assessed Comments Unknown Sex and Gender Information Value Date Recorded Sex Assigned at Not on file Legal Sex Female 5:18 PM CDT Gender Identity Not on file Sexual Orientation Not on file documented as of this encounter Progress Notes * James Pineda Md, MD - 04/21/2017 12:19 PM CDT Message Recorded as Task Date: 04/21/2017 08:16 AM, Created By: Sergo Mackey Task Name: Follow Up Assigned To: [facility] Narendra Regarding Patient: Alia Fabian, Status: In Progress Comment: Sergo Mackey - 21 Apr 2017 8:[address] scan of the abdomen and pelvis is normal Fariba Garvey - 21 Apr 2017 9:05 AM TASK EDITED 2 tasks Fariba Garvey - 21 Apr 2017 12:18 PM TASK IN PROGRESS Message: patient notified -sjs Signatures Electronically signed by : Fariba Garvey MA; Apr 21 2017 12:19PM DIGITAL ASSISTANT (Author) * James Pineda Md, MD - 04/21/2017 12:19 PM CDT Message Recorded as Task Date: 04/16/2017 02:39 PM, Created By: Carmela Haynes Task Name: Medical Complaint Callback Assigned To: [facility] Narendra Regarding Patient: Alia Fabian, Status: In Progress Comment: Carmela Haynes - 16 Apr 2017 2:39 PM TASK CREATED Caller: Lay, Parent; (Day); Lay (patients mother) calling about the Results of CT done at [place] on 04/12/17. CB# [phone] or [phone] Jovanni Omalley - 16 Apr 2017 3:09 PM TASK EDITED mother informed we do not have results yet Message: patient notified -sjs Signatures Electronically signed by : Fariba Garvey MA; Apr 21 2017 12:19PM DIGITAL ASSISTANT (Author) documented in this encounter Plan of Treatment Not on file documented as of this encounter Visit Diagnoses Not on filedocumented in this encounter Care Teams Orthotist Prosthetist Relationship Specialty Start Date End Date Sergo Mackey MD PCP - General 04/07/17 documented as of this encounter
--- OUTSIDE RECORDS SUMMARY | 2024-11-04 23:51 | XMS_ITS | Encounter Summary ---
Author Organization [facility] Address [facility] [place] [address] [place] [address] Care Team Providers Care Bench Boring Machine Operator Name Role Phone Sergo Mackey MD Primary Care Provider Sergo Duncan MD Primary Care Provider Julian short Encounter Details Date Type Department Care Team (Latest Contact Info) Description 02/04/2017 Abstract [facility] Medical Group Social History Tobacco Use Types Packs/Day Years Used Date Smoking Tobacco: Never Assessed Comments Unknown Sex and Gender Information Value Date Recorded Sex Assigned at Not on file Legal Sex Female 5:18 PM CDT Gender Identity Not on file Sexual Orientation Not on file documented as of this encounter Progress Notes * James Pineda Md, MD - 02/04/2017 11:35 AM CDT Message Message: Patient called she didn't have ultrasound done in November and wants to reschedule it to [facility] instead. Apt is on 02-08-17. Plan 1. US KIDNEYS BI; Status:Hold For - Scheduling; Requested for:[id number]; Perform:[facility]; Due:39Shh0672; Last Updated By:Marcela Wilson; 02/04/2017 11:39:06 AM;Ordered; For:Hematuria, Urinary frequency; Ordered By:Angeli Wu; Signatures Electronically signed by : Marcela Wilson MA; Feb 04 2017 11:40AM COAGULATION OPERATOR (Author) documented in this encounter Plan of Treatment Not on file documented as of this encounter Visit Diagnoses Not on filedocumented in this encounter Care Teams Bench Boring Machine Operator Relationship Specialty Start Date End Date Sergo Mackey MD PCP - General 04/07/17 Sergo Mackey MD PCP - General 08/05/16 04/06/17 documented as of this encounter
--- OUTSIDE RECORDS SUMMARY | 2024-11-04 23:51 | XMS_ITS | Encounter Summary ---
Author Organization [facility] Address [facility]. [place], [place] [address] [place] [address] Care Team Providers Care Sander Setter Name Role Phone Sergo Mackey MD Primary Care Provider Julian short Encounter Details Date Type Department Care Team (Latest Contact Info) Description 05/25/2017 Abstract [facility] Medical Group Social History Tobacco Use Types Packs/Day Years Used Date Smoking Tobacco: Never Assessed Comments Unknown Sex and Gender Information Value Date Recorded Sex Assigned at Not on file Legal Sex Female 5:18 PM CDT Gender Identity Not on file Sexual Orientation Not on file documented as of this encounter Progress Notes * Generic Conversion MD Ashkan - 05/25/2017 4:34 PM CDT Message Recorded as Task Date: 05/25/2017 11:21 AM, Created By: Jaclyn Santana Task Name: Medical Complaint Callback Assigned To: [facility] Narendra Regarding Patient: Alia Fabian, Status: In Progress Comment: Jaclyn Santana - 25 May 2017 11:21 AM TASK CREATED Caller: Lay, Mother; Medical Complaint; [phone] pt saw neuro Damaris Harding at [facility] last Wednesday for weakness in legs, arms, decreased reflexes, joint pain, pain in arms and legs, pressure in head, nerve pain on left top of back beside the spine and radiates down to buttocks, and migraines so bad that she cries at night. dx with some kind of migraine; gave meds that made her feel funny so they wanted her to get labs prior to starting on a new medications but did not give her an order for labs. Also will not order an MRI of head and spine. Stated this other doctor will not order and wants us to order phone [phone] for neuro pts #[phone] Sergo Mackey - 25 May 2017 11:54 AM TASK REASSIGNED: Previously Assigned To Sergo Mackey She had normal labs in March and had a normal MRI of the brain last winter so she does not need any testing currently. She had discussed taking gabapentin with the neurologist for what he believed werevestibular migraines. I would encourage her to do that. Fariba Garvey - 25 May 2017 3:54 PM TASK IN PROGRESS Message: PATIENT NOTIFIED -SJS Signatures Electronically signed by : Fariba Garvey MA; May 25 2017 4:34PM HEAD ESTHETICIAN (Author) documented in this encounter Plan of Treatment Not on file documented as of this encounter Visit Diagnoses Not on filedocumented in this encounter Care Teams Sander Setter Relationship Specialty Start Date End Date Sergo Mackey MD PCP - General 04/07/17 documented as of this encounter
--- OUTSIDE RECORDS SUMMARY | 2024-11-04 23:51 | XMS_ITS | Encounter Summary ---
Author Organization [facility] Address [address] [place] [address]. [place], [place] [id number] [place] [address] Care Team Providers Care Research And Development Technician Name Role Phone Sergo Mackye MD Primary Care Provider Julian short Encounter Details Date Type Department Care Team (Latest Contact Info) Description 07/13/[address] [facility] Medical Group Sergo Mackey MD Social [...] Procedure Name Priority Date/Time Associated Diagnosis Comments VITAMIN B-12 Routine 07/13/2017 1:54 PM CDT VITAMIN D, 25 OH Routine 07/13/2017 1:54 PM CDT documented in this encounter Results * VITAMIN B-12 (07/13/2017 1:54 PM CDT) VITAMIN B12 S/P/B 580 211 - 946 pg/mL [facility] TO EPIC CONVERSION 07/13/2017 1:54 PM CDT 07/13/2017 1:54 PM CDT Narrative [facility] TO [facility]IC CONVERSION - 07/14/2017 5:12 AM CDT Result Communication: No patient communication needed at this time us Sergo Mackey MD LABORATORY Final Result [facility] TO EPIC CONVERSION * (ABNORMAL) VITAMIN D, 25 OH (07/13/2017 1:54 PM CDT) VITAMIN D 25 HYDROXY S/P/B 15.7(L) 30.0 - 100.0 ng/mL [facility] TO EPIC CONVERSION Comment: Result Comment: Vitamin D deficiency has been defined by the [place] of Medicine and an Endocrine Society practice guideline as a level of serum 25-OH vitamin D less than 20 ng/mL (1,2). The Endocrine Society went on to further define vitamin D insufficiency as a level between 21 and 29 ng/mL (2). 1. IOM ([place] of Medicine). 2010. Dietary reference ?? intakes for calcium and D. [place]: The ?? National [employer] Press. 2. Brian MF, Cam PARKINSON, Nereyda STARK, et al. ?? Evaluation, treatment, and prevention of vitamin D ?? deficiency: an Endocrine Society clinical practice ?? guideline. JCEM. 2010; 96(7):1911-30. 07/13/2017 1:54 PM CDT 07/13/2017 1:54 PM CDT Narrative [facility] TO EPIC CONVERSION - 07/14/2017 5:12 AM CDT Result Communication: Call patient with results us Sergo Mackey MD LABORATORY Final Result [facility] TO EPIC CONVERSION documented in this encounter Visit Diagnoses Not on filedocumented in this encounter Care Teams Research And Development Technician Relationship Specialty Start Date End Date Sergo Mackey MD PCP - General 04/07/17 documented as of this encounter
--- OUTSIDE RECORDS SUMMARY | 2024-11-04 23:51 | XMS_ITS | Encounter Summary ---
Author Organization [facility] Address [address] [place] [address]. [place] [address] [place] [address] Care Team Providers Care Director Of Restaurants Name Role Phone Sergo Mackey MD Primary Care Provider Julian short Encounter Details Date Type Department Care Team (Late st Contact Info) Description 04/07/2017 Abstract [facility] [place] [address] Sergo Mackey MD Social History Tobacco Use [...] Procedure Name Priority Date/Time Associated Diagnosis Comments URINE BACTERIA CULTURE Routine 04/07/2017 8:54 AM CDT URINALYSIS, AUTO, COMPLETE Routine 04/07/2017 8:54 AM CDT documented in this encounter Results * (ABNORMAL) URINALYSIS, AUTO, COMPLETE (04/07/2017 8:54 AM CDT) SOURCE (FLUID) URINE CLEAN CATCH 04/07/2017 5:42 PM CDT [facility] COLOR (U) YELLOW 04/07/2017 8:01 PM CDT [facility] TRANSPARENCY CLOUDY 04/07/2017 8:01 PM CDT [facility] SPECIFIC GRAVITY (U) 1.026 1.001 - 1.030 04/07/2017 8:01 PM CDT [facility] U PH 6.0 5.0 - 9.0 04/07/2017 8:01 PM CDT [facility] LEUKOCYTES (U) NEGATIVE NEGATIVE 04/07/2017 8:01 PM T [facility] NITRITES NEGATIVE NEGATIVE 04/07/2017 8:01 PM CDT [facility] PROTEIN (U) NEGATIVE <30 MG/DL 04/07/2017 8:01 PM CDT [facility] URINE GLUCOSE NEGATIVE NEGATIVE MG/DL 04/07/2017 8:01 PM CDT [facility] KETONES MG/DL (U) NEGATIVE NEGATIVE MG/DL 04/07/2017 8:01 PM T [facility] UROBILINOGEN 2.0(A) NEGATIVE MG/DL 04/07/2017 8:01 PM T [facility] BILIRUBIN (U) NEGATIVE NEGATIVE MG/DL 04/07/2017 8:01 PM CDT [facility] BLOOD (U) NEGATIVE NEGATIVE 04/07/2017 8:01 PM CDT [facility] SQUAMOUS EPITHELIALS MANY /LPF 04/07/2017 8:01 PM CDT [facility] MUCUS RARE /LPF 04/07/2017 8:01 PM CDT [facility] WBC/HPF 1 <6 /HPF 04/07/2017 8:01 PM CDT [facility] RBC/HPF 3 <6 /HPF 04/07/2017 8:01 PM T [facility] 04/07/2017 8:54 AM CDT 04/07/2017 6:22 PM CDT us Generic Conversion Md JOHNSON URINE ORDERABLES Final Result [facility] [address] [place] [address], [place] [phone] * CULTURE URINE (04/07/2017 8:54 AM CDT) SPEC DESCRIPTION URINE CLEAN CATCH 04/07/2017 5:42 PM CDT [facility] SPECIAL REQUESTS NO SPECIAL REQUEST 04/07/2017 5:42 PM CDT [facility] CULTURE RESULT POLYMICROBIAL GROWTH CONSISTENT WITH NORMAL GENITAL NIKHIL. ?? SUSCEPTIBILITIES NOT ROUTINELY PERFORMED. 04/10/2017 10:09 AM CDT [facility] URINE SPECIMEN OBTAINED BY CLEAN CATCH PROCEDURE / Unknown 04/07/2017 8:54 AM CDT 04/07/2017 6:21 PM CDT us Generic Conversion Md JOHNSON MICROBIOLOGY - GENERAL ORDERABLES Final Result [facility] [address] [place] [address], documented in this encounter Visit Diagnoses Diagnosis Dysuria documented in this encounter Care Teams Director Of Restaurants Relationship Specialty Start Date End Date Srego Mackey MD PCP - General 04/07/17 documented as of this encounter
--- OUTSIDE RECORDS SUMMARY | 2024-11-04 23:51 | XMS_ITS | Encounter Summary ---
Author Organization [facility] Address [address] [place] [address]. [place], [place] [address] [place] [address] Care Team Providers Care Medical Delivery Driver Name Role Phone Sergo Mackey MD Primary Care Provider Sergo Duncan MD Primary Care Provider Julian short Encounter Details Date Type Department Care Team (Latest Contact Info) Description 12/01/2016 Abstract [facility] Medical Group Social History Tobacco [...] on filedocumented in this encounter Care Teams Medical Delivery Driver Relationship Specialty Start Date End Date Sergo Mackey MD PCP - General 04/07/17 Sergo Mackey MD PCP - General 08/05/16 04/06/17 documented as of this encounter
--- OUTSIDE RECORDS SUMMARY | 2024-11-04 23:51 | XMS_ITS | Encounter Summary ---
Author Organization [facility] Address [address] [place] [address]. [place], [place] [address] [place] [address] Care Team Providers Care Patient Intake Coordinator Name Role Phone Sergo Mackey MD Primary Care Provider Julina short Encounter Details Date Type Department Care Team (Latest Contact Info) Description 05/12/2017 Abstract [facility] Medical [facility] Social History Tobacco Use [...] on filedocumented in this encounter Care Teams Patient Intake Coordinator Relationship Specialty Start Date End Date Sergo Mackey MD PCP - General 04/07/17 documented as of this encounter
--- OUTSIDE RECORDS SUMMARY | 2024-11-04 23:51 | XMS_ITS | Encounter Summary ---
Author Organization [facility] - [facility] Address [address] [place] [address]. [place], [place] [address] [place] [address] Care Team Providers Care Assemblies And Installations Inspector Name Role Phone Sergo Mackey MD Primary Care Provider Julian short Encounter Details Date Type Department Care Team (Latest Contact Info) Description 04/08/2017 Abstract [facility] Medical Group [...] on filedocumented in this encounter Care Teams Assemblies And Installations Inspector Relationship Specialty Start Date End Date Sergo Mackey MD PCP - General 04/07/17 documented as of this encounter
--- OUTSIDE RECORDS SUMMARY | 2024-11-04 23:51 | XMS_ITS | Encounter Summary ---
Author Organization [facility] Address [address] [place] [address]. [place], [place] [address] [place] [address] Care Team Providers Care Programmer Numerical Control Name Role Phone Sergo Mackey MD Primary Care Provider Sergo Duncan MD Primary Care Provider Julian short Encounter Details Date Type Department Care Team (Latest Contact Info) Description 02/18/2017 Abstract [facility] Medical Group Social History Tobacco Use [...] on filedocumented in this encounter Care Teams Programmer Numerical Control Relationship Specialty Start Date End Date Sergo Mackey MD PCP - General 04/07/17 Sergo Mackey MD PCP - General 08/05/16 04/06/17 documented as of this encounter
--- OUTSIDE RECORDS SUMMARY | 2024-11-04 23:51 | XMS_ITS | Clinical Summary ---
Author Organization [facility] Address [address] [place] [address]. [place] [address] [place] [address] Care Team Providers Care Manifest/Order Organizer Print Orders Name Role Phone Sergo Mackey MD Primary Care Provider Julian short Social History Tobacco Use Types Packs/Day Years Used Date Smoking Tobacco: Never Assessed Comments Unknown Sex and Gender Information Value Date Recorded Sex Assigned at Not on file Legal Sex Female 5:18 PM CDT Gender Identity Not on file Sexual Orientation Not on file Last Filed Vital Signs Vital Sign Reading Time Taken Comments Blood Pressure 127/89 07/06/2017 2:18 PM CDT Pulse 117 07/06/2017 2:18 PM CDT Temperature - - Respiratory Rate - - Oxygen Saturation - - Inhaled Oxygen Concentration - - Weight 134.7 kg (297 lb) 07/06/2017 2:18 PM CDT Height 172.7 cm (5' 8 ) 07/06/2017 2:18 PM CDT Body Mass Index 45.16 07/06/2017 2:18 PM CDT Plan of Treatment Health Maintenance Due Date Last Done Comments Cervical Cancer Screening Pa p Smear (Age 30 to 64) Every 3 Years 1992 Annual Physical 1995 Hepatitis C 2010 DTaP, Tdap and Td Vaccines ( 1 - Tdap) 2011 Hepatitis B Vaccines (1 of 3 - 19+ 3-dose series) 2011 Cervical Cancer Screening Pa p with HPV Testing (Age 30 to 64) Every 5 Years 2022 Cervical Cancer Screening with HPV 2022 COVID-19 Vaccine ( - 2023-2 5 season) 2024 Influenza Adult (#1) 2024 HPV Vaccines Aged Out No longer eligi ble based on patient's age to complete this topic Meningococcal Vaccine Aged Out No mica amanda eligible based on patient's age to complete this topic Pneumococcal Vaccine: Pediat rics (0 to 5 Years) and At-Risk Patients (6 to 64 Years) Aged Out No longer eligible b ased on patient's age to complete this topic RSV Immunizations Under 20 Months Aged Out No longer eligible based on patient's age to complete this topic Care Teams Manifest/Order Organizer Print Orders Relationship Specialty Start Date End Date Sergo Mackey MD PCP - General 04/07/17
--- OUTSIDE RECORDS SUMMARY | 2024-11-04 23:51 | XMS_ITS | Encounter Summary ---
Author Organization [facility] Address [address] [place] [address]. [place], [place] [address] [place] [address] Care Team Providers Care Fountain Worker Name Role Phone Sergo Mackey MD Primary Care Provider Julian short Encounter Details Date Type Department Care Team (Latest Contact Info) Description 08/30/2017 Abstract [facility] Medical Group Social History Tobacco [...] on filedocumented in this encounter Care Teams Fountain Worker Relationship Specialty Start Date End Date Sergo Mackey MD PCP - General 04/07/17 documented as of this encounter
--- OUTSIDE RECORDS SUMMARY | 2024-11-04 23:51 | XMS_ITS | Encounter Summary ---
Author Organization [facility] Address [facility]. [place], [place] [address] [place] [address] Care Team Providers Care Heart Doctor Name Role Phone Sergo Mackey MD Primary Care Provider Julian short Encounter Details Date Type Department Care Team (Latest Contact Info) Description 08/23/2017 Abstract [facility] Medical Group Social History Tobacco Use Types Packs/Day Years Used Date Smoking Tobacco: Never Assessed Comments Unknown Sex and Gender Information Value Date Recorded Sex Assigned at Not on file Legal Sex Female 5:18 PM CDT Gender Identity Not on file Sexual Orientation Not on file documented as of this encounter Progress Notes * James Pineda Md, MD - 08/23/2017 9:39 AM CDT Signatures Electronically signed by : Jovanni Omalley MA; Aug 23 2017 9:39AM CIGAR MAKING SUPERVISOR (Author) documented in this encounter Plan of Treatment Not on file documented as of this encounter Visit Diagnoses Not on filedocumented in this encounter Care Teams Heart Doctor Relationship Specialty Start Date End Date Sergo Mackey MD PCP - General 04/07/17 documented as of this encounter
--- OUTSIDE RECORDS SUMMARY | 2024-11-04 23:51 | XMS_ITS | Encounter Summary ---
Author Organization [facility] Address [address] [place] [address]. [place], [place] [address] [place] [address] Care Team Providers Care Director Of Labor Relations Name Role Phone Sergo Mackey MD Primary Care Provider Julian short Encounter Details Date Type Department Care Team (Latest Contact Info) Description 04/13/2017 Abstract [facility] Medical Group Social History Tobacco Use Types [...] on filedocumented in this encounter Care Teams Director Of Labor Relations Relationship Specialty Start Date End Date Sergo Mackey MD PCP - General 04/07/17 documented as of this encounter
--- OUTSIDE RECORDS SUMMARY | 2024-11-04 23:51 | XMS_ITS | Encounter Summary ---
Author Organization [facility] Address [facility]. [place], [place] [address] [place] [address] Care Team Providers Care Felt Hat Mellowing Machine Operator Name Role Phone Sergo Mackey MD Primary Care Provider Sergo Duncan MD Primary Care Provider Julian short Encounter Details Date Type Department Care Team (Latest Contact Info) Description 12/09/2016 Abstract [facility] Medical Group [...] Notes * James Pineda Md, MD - 12/09/2016 10:27 AM CST Message Recorded as Task Date: 12/09/2016 10:04 AM, Created By: Sergo Mackey Task Name: Follow Up Assigned To: [facility] Team Narendra Regarding Patient: Alia Fabian, Status: In Progress Comment: Sergo Mackey - 09 Dec 2016 10:04 AM TASK CREATED Ultrasound of the liver, gallbladder and surrounding structures was good/normal. We can have her see a corporate manager if she is continuing to have stomach symptoms. Fariba Garvey - 09 Dec 2016 10:27 AM TASK IN PROGRESS Message: Patient notified and already sees GI-sjs Signatures Electronically signed by : Fariba Garvey MA; Dec 09 2016 10:28AM BUYER RENTER (Author) documented in this encounter Plan of Treatment Not on file documented as of this encounter Visit Diagnoses Not on filedocumented in this encounter Care Teams Felt Hat Mellowing Machine Operator Relationship Specialty Start Date End Date Sergo Mackey MD PCP - General 04/07/17 Sergo Mackey MD PCP - General 08/05/16 04/06/17 documented as of this encounter
--- OUTSIDE RECORDS SUMMARY | 2024-11-04 23:51 | XMS_ITS | Encounter Summary ---
Author Organization [facility] - [facility] Address [address] [place] [address]. [place], [place] [address] [place] [address] Care Team Providers Care Registered Massage Therapist Name Role Phone Sergo Mackey MD Primary Care Provider Julian short Encounter Details Date Type Department Care Team (Latest Contact Info) Description 06/08/2017 Abstract [facility] Medical Group Social History Tobacco [...] on filedocumented in this encounter Care Teams Registered Massage Therapist Relationship Specialty Start Date End Date Sergo Mackey MD PCP - General 04/07/17 documented as of this encounter
--- OUTSIDE RECORDS SUMMARY | 2024-11-04 23:51 | XMS_ITS | Encounter Summary ---
Author Organization [facility] Address [facility]. [place], [place] [address] [place] [address] Care Team Providers Care Picking Belt Operator Name Role Phone Sergo Mackey MD Primary Care Provider Sergo Duncan MD Primary Care Provider Julian short Encounter Details Date Type Department Care Team (Latest Contact Info) Description 02/15/2017 Abstract [facility] Medical Group , James Pineda MD Social History Tobacco Use Types Packs/Day Years Used Date Smoking Tobacco: Never Assessed Comments Unknown Sex and Gender Information Value Date Recorded Sex Assigned at Not on file Legal Sex Female 5:18 PM CDT Gender Identity Not on file Sexual Orientation Not on file documented as of this encounter Progress Notes * Generic Conversion MD Ashkan - 02/15/2017 4:45 PM CDT Message Recorded as Task Date: 02/15/2017 02:49 PM, Created By: Berenice Barone Task Name: Medical Complaint Callback Assigned To: [facility] Team Narendra Regarding Patient: Alia Fabian, Status: In Progress Comment: Berenice Barone - 15 Feb 2017 2:49 PM TASK CREATED Pt has a abdominal ultrasound with our office on 12/08/16 which was normal but then she had another ultrasound done with urologist uri eastman with shows she had hepatic steatosis on 02/08/17/pt was told to follow up with you especially since her other us was normal...please advise. cb#: [phone] Sergo Mackey - 15 Feb 2017 4:36 PM TASK REASSIGNED: Previously Assigned To Sergo Mackey My best guess is that the liver appearance probably did not change between the tests. It is more likely the radiologist who read the first test failed to mention the somewhat common finding of fat deposition in the liver. A more specific test would be a CT scan of the abdomen with contrast to better define the liver anatomy. RiveraElsa castanon - 15 Feb 2017 4:42 PM TASK IN PROGRESS Elsa Rivera - 15 Feb 2017 4:44 PM TASK EDITED Patient informed, she is agreeable to CT scan//af Plan 1. CT ABDOMEN PELVIS W; Status:Need Information - Financial Authorization; Requested for:[id number]; Perform:Other Radiology; Due:[id number]; Last Updated By:Elsa Rivera; 02/15/2017 4:47:11 PM;Ordered; For:Abnormal ultrasound of abdomen; Ordered By:Sergo Mackey; Patient prefers [facility], liver stenosis found on US with urology Signatures Electronically signed by : Elsa Rivera, ; Feb 15 2017 4:47PM ICICLE MACHINE OPERATOR (Author) * Rani Reardon MD - 02/15/2017 2:43 PM CDT Message Message: Patient was called and notified of her kidney u/s. Patient will notify her primary of the result of the liver steatosis. Signatures Electronically signed by : Rani Reardon, ; Feb 15 2017 2:45PM ICICLE MACHINE OPERATOR (Author) documented in this encounter Plan of Treatment Not on file documented as of this encounter Visit Diagnoses Not on filedocumented in this encounter Care Teams Picking Belt Operator Relationship Specialty Start Date End Date Sergo Mackey MD PCP - General 04/07/17 Sergo Mackey MD PCP - General 08/05/16 04/06/17 documented as of this encounter
--- OUTSIDE RECORDS SUMMARY | 2024-11-04 23:51 | XMS_ITS | Encounter Summary ---
Author Organization [facility] Address [facility]. [place], [place] [address] [place] [address] Care Team Providers Care Circuit Designer Name Role Phone Sergo Mackey MD Primary Care Provider Sergo Duncan MD Primary Care Provider Julian short Encounter Details Date Type Department Care Team (Latest Contact Info) Description 02/08/2017 Abstract [facility] Medical Group Angeli Wu, EMELYN [address] [address] Social History Tobacco Use Types Packs/Day Years [...] on filedocumented in this encounter Care Teams Circuit Designer Relationship Specialty Start Date End Date Sergo Mackey MD PCP - General 04/07/17 Sergo Mackey MD PCP - General 08/05/16 04/06/17 documented as of this encounter
--- OUTSIDE RECORDS SUMMARY | 2024-11-04 23:51 | XMS_ITS | Encounter Summary ---
Author Organization [facility] Address [address] [place] [address]. [place], [place] [address] [place] [address] Care Team Providers Care Seed Potato Cutter Name Role Phone Sergo Mackey MD Primary Care Provider Julian short Encounter Details Date Type Department Care Team (Latest Contact Info) Description 06/29/2017 Abstract [facility] Medical Group Social History Tobacco Use [...] on filedocumented in this encounter Care Teams Seed Potato Cutter Relationship Specialty Start Date End Date Sergo Mackey MD PCP - General 04/07/17 documented as of this encounter
--- OUTSIDE RECORDS SUMMARY | 2024-11-04 23:51 | XMS_ITS | Encounter Summary ---
Author Organization [facility] - [facility] Address [address] [place] [address]. [place], [place] [address] [place] [address] Care Team Providers Care Emblem Maker Name Role Phone Sergo Mackey MD Primary Care Provider Julian short Encounter Details Date Type Department Care Team (Latest Contact Info) Description 09/07/2017 Abstract [facility] Medical Group Social [...] on filedocumented in this encounter Care Teams Emblem Maker Relationship Specialty Start Date End Date Sergo Mackey MD PCP - General 04/07/17 documented as of this encounter
--- OUTSIDE RECORDS SUMMARY | 2024-11-04 23:51 | XMS_ITS | CONTINUITY OF CARE DOCUMENT ---
Author Name rosario ponce Address Unknown Organization [facility] Address [address] [facility] [address] [place] [address] Phone [phone] Care Team Providers Care Broker Agricultural Produce Name Role Phone Balbir JOHNSON, Sophie Unavailable RACHEL JOHNSON, ALYSON Unavailable [phone] INSURANCE PROVIDERS Payer name Policy type / Coverage type [place] red green party ID [facility] Blue [facility] [id number]
--- OUTSIDE RECORDS SUMMARY | 2024-11-04 23:51 | XMS_ITS | Encounter Summary ---
Author Organization [facility] Address [address] [place] [address]. [place], [place] [address] [place] [address] Care Team Providers Care Macaroni Maker Name Role Phone Sergo Mackey MD Primary Care Provider Julian short Encounter Details Date Type Department Care Team (Latest Contact Info) Description 08/27/2017 Abstract [facility] Medical Group Social History Tobacco Use Types [...] on filedocumented in this encounter Care Teams Macaroni Maker Relationship Specialty Start Date End Date Sergo Mackey MD PCP - General 04/07/17 documented as of this encounter
--- OUTSIDE RECORDS SUMMARY | 2024-11-04 23:51 | XMS_ITS | Encounter Summary ---
Author Organization [facility] - [facility] [place] [facility] Address [address] [place] [address]. [place], [place] [address] [place] [address] Care Team Providers Care Humanities And Languages Professor Name Role Phone Sergo Mackey MD Primary Care Provider Julian short Encounter Details Date Type Department Care Team (Latest Contact Info) Description 09/02/2017 Abstract [facility] Medical Group Social History Tobacco Use [...] on filedocumented in this encounter Care Teams Humanities And Languages Professor Relationship Specialty Start Date End Date Sergo Mackey MD PCP - General 04/07/17 documented as of this encounter
--- OUTSIDE RECORDS SUMMARY | 2024-11-04 23:51 | XMS_ITS | Encounter Summary ---
Author Organization [facility] [place] Address [address] [place] [address]. [place], [place] [address] [place] [address] Care Team Providers Care Saw Filer Name Role Phone Sergo Mackey MD Primary Care Provider Julian short Encounter Details Date Type Department Care Team (Latest Contact Info) Description 04/11/2017 Abstract [facility] Medical Group Social History Tobacco Use Types Packs/Day Years Used Date Smoking Tobacco: Never Assessed Comments Unknown Sex and Gender Information Value Date Recorded Sex Assigned at Not on file Legal Sex Female 5:18 PM CDT Gender Identity Not on file Sexual Orientation Not on file documented as of this encounter Progress Notes * James Pineda Md, MD - 04/11/2017 9:30 AM CDT Message Pt updated by mail-елена Verified Results *Urine dip auto In Office 07Apr2017 09:48AM Sergo Mackey Test Name Result Flag Reference Color Yellow Clarity Clear Glucose Negative Bilirubin Negative Ketones 5 mg/dL-Trace A Specific [place] 1.020 Blood Negative pH 7.0 5.0 - 7.0 Protein Negative Urobilinogen 1.0 E.U./dL A Nitrites neg Leukocytes Negative Urine Culture 07Apr2017 08:54AM Sergo Mackey Test Name Result Flag Reference Urine Culture (Report) SPECIMEN DESCRIPTION - URINE CLEAN CATCH SPECIAL REQUESTS - NO SPECIAL REQUEST CULTURE - POLYMICROBIAL GROWTH CONSISTENT WITH NORMAL GENITAL NIKHIL. SUSCEPTIBILITIES NOT CULTURE - ROUTINELY PERFORMED. REPORT STATUS - FINAL 04/10/2017 Discussion/Summary Urine tests good Signatures Electronically signed by : Eloisa Wolfe R.N.; Apr 12 2017 8:14AM SUPPLY CHAIN SPECIALIST (Author) documented in this encounter Plan of Treatment Not on file documented as of this encounter Visit Diagnoses Not on filedocumented in this encounter Care Teams Saw Filer Relationship Specialty Start Date End Date Sergo Mackey MD PCP - General 04/07/17 documented as of this encounter
--- OUTSIDE RECORDS SUMMARY | 2024-11-04 23:51 | XMS_ITS | Encounter Summary ---
Author Organization [facility] Address [address] [place] [address]. [place], [place] [address] [place] [address] Care Team Providers Care Raw Silk Grader Name Role Phone Sergo Mackey MD Primary Care Provider Julian short Encounter Details Date Type Department Care Team (Latest Contact Info) Description 09/16/2017 Abstract [facility] Medical [...] on filedocumented in this encounter Care Teams Raw Silk Grader Relationship Specialty Start Date End Date Sergo Mackey MD PCP - General 04/07/17 documented as of this encounter
--- OUTSIDE RECORDS SUMMARY | 2024-11-04 23:51 | XMS_ITS | Encounter Summary ---
Author Organization [facility] - [facility] Address [address] [place] [address]. [place], [place] [address] [place] [address] Care Team Providers Care Tube Laser Operator Name Role Phone Sergo Mackey MD Primary Care Provider Julian short Encounter Details Date Type Department Care Team (Latest Contact Info) Description 08/10/2017 Abstract [facility] Medical Group Social History Tobacco Use Types [...] on filedocumented in this encounter Care Teams Tube Laser Operator Relationship Specialty Start Date End Date Sergo Mackey MD PCP - General 04/07/17 documented as of this encounter
--- OUTSIDE RECORDS SUMMARY | 2024-11-04 23:51 | XMS_ITS | Encounter Summary ---
Author Organization [facility] Address [address] [place] [address]. [place] [address] [place] [address] Care Team Providers Care Concrete Paving Machine Operator Name Role Phone Sergo Mackey MD Primary Care Provider Sergo Duncan MD Primary Care Provider Julian short Encounter Details Date Type Department Care Team (Latest Contact Info) Description 12/14/2016 Abstract [facility] Medical Group Social History Tobacco Use Types Packs/Day Years Used Date Smoking Tobacco: Never Assessed Comments Unknown Sex and Gender Information Value Date Recorded Sex Assigned at Not on file Legal Sex Female 5:18 PM CDT Gender Identity Not on file Sexual Orientation Not on file documented as of this encounter Progress Notes * Ac Tarango MD - 12/14/2016 5:07 AM CST Message Pt updated -елена Verified Results QU-CELIAC DISEASE COMPREHENSIVE PANEL [id number] 10:52AM Sergo Mackey Test Name Result Flag Reference INTERPRETATION see note No serological evidence of celiac disease. tTG IgA may normalize in individuals with celiac disease who maintain a gluten-free diet. Consider HLA DQ2 and DQ8 testing to rule out celiac disease. Celiac disease is extremely rare in the absence of DQ2 or DQ8. TISSUE TRANSGLUTAMINASE$AB, IGA 1 U/mL <4 Value Interpretation <4 U/mL: No Antibody Detected >or=4 U/mL: Antibody Detected IMMUNOGLOBULIN A 171 mg/dL 81-463 Test Performed at: [facility]/[address] SHARI ODOM MD,PHD QU-COMPREHENSIVE METABOLIC PANEL 82211 [id number] 10:52AM Sergo Mackey Test Name Result Flag Reference GLUCOSE 99 mg/dL 65-99 Fasting reference interval UREA NITROGEN (BUN) 9 mg/dL 7-25 CREATININE 0.59 mg/dL 0.50-1.10 eGFR NON-AFR. ESTONIAN 128 > OR = 60 UNITS: mL/min/1.73m2 eGFR 149 > OR = 60 UNITS: mL/min/1.73m2 BUN/CREATININE RATIO 6-22 NOT APPLICABLE (calc) SODIUM 140 mmol/L 135-146 POTASSIUM 4.1 mmol/L 3.5-5.3 CHLORIDE 106 mmol/L 98-110 CARBON DIOXIDE 25 mmol/L 20-31 CALCIUM 9.5 mg/dL 8.6-10.2 PROTEIN, TOTAL 7.2 g/dL 6.1-8.1 ALBUMIN 4.3 g/dL 3.6-5.1 GLOBULIN 2.9 1.9-3.7 UNITS: g/dL (calc) ALBUMIN/GLOBULIN RATIO 1.5 (calc) 1.0-2.5 BILIRUBIN, TOTAL 0.4 mg/dL 0.2-1.2 ALKALINE PHOSPHATASE 59 U/L 33-115 AST 14 U/L 10-30 ALT 16 U/L 6-29 Test Performed at: [facility] [address] [place] [address] KALI HENDRICKS DO,MPH QU-CBC ( INCLUDES DIFF/PLT ) 6399 [id number] 10:52AM Sergo Mackey Test Name Result Flag Reference WHITE BLOOD CELL COUNT 7.4 3.8-10.8 UNITS: Thousand/uL RED BLOOD CELL COUNT 4.76 Million/uL 3.80-5.10 HEMOGLOBIN 13.7 g/dL 11.7-15.5 HEMATOCRIT 41.4 % 35.0-45.0 MCV 86.8 fL 80.0-100.0 MCH 28.7 pg 27.0-33.0 MCHC 33.0 g/dL 32.0-36.0 RDW 13.2 % 11.0-15.0 PLATELET COUNT 313 140-400 UNITS: Thousand/uL MPV 8.1 fL 7.5-12.5 ABSOLUTE NEUTROPHILS 4721 cells/uL 1472-4647 ABSOLUTE LYMPHOCYTES 2220 cells/uL 850-3900 ABSOLUTE MONOCYTES 281 cells/uL 200-950 ABSOLUTE EOSINOPHILS 148 cells/uL 15-500 ABSOLUTE BASOPHILS 30 cells/uL 0-200 NEUTROPHILS 63.8 % LYMPHOCYTES 30.0 % MONOCYTES 3.8 % EOSINOPHILS 2.0 % BASOPHILS 0.4 % REPORT COMMENT: NO DRAW FEE 2ND ORDER,PT REFUSED SIMILAR TESTING [id number] REQ FASTING:YES PATIENT REFUSED SOME TESTING; PATIENT ENCOURAGED Test Performed at: [facility] [address] [place] [address] KALI HENDRICKS DO,MPH Discussion/Summary Labs all good/normal including screening for celiac disease. Signatures Electronically signed by : Eloisa Wolfe R.N.; Dec 14 2016 1:17PM CYLINDER HANDLER (Author) documented in this encounter Plan of Treatment Not on file documented as of this encounter Visit Diagnoses Not on filedocumented in this encounter Care Teams Concrete Paving Machine Operator Relationship Specialty Start Date End Date Sergo Mackey MD PCP - General 04/07/17 Sergo Mackey MD PCP - General 08/05/16 04/06/17 documented as of this encounter
--- OUTSIDE RECORDS SUMMARY | 2024-11-04 23:51 | XMS_ITS | Encounter Summary ---
Author Organization [facility] Address [facility] [address] [place] [address] Care Team Providers Care Gasoline Service Attendant Name Role Phone Sergo Mackey MD Primary Care Provider Sergo Duncan MD Primary Care Provider Julian short Encounter Details Date Type Department Care Team (Late st Contact Info) Description 12/03/2016 Abstract [facility] Medical Group Family & Internal Medicine [address] [phone] Sergo Mackey MD Social History Tobacco Use [...] Sign Reading Time Taken Comments Blood Pressure 126/80 12/03/2016 3:06 PM DECAL CUTTER Pulse 112 12/03/2016 3:06 PM DECAL CUTTER Temperature - - Respiratory Rate - - Oxygen Saturation - - Inhaled Oxygen Concentration - - Weight 127.9 kg (282 lb) 12/03/2016 3:06 PM DECAL CUTTER Height 172.7 cm (5' 8 ) 12/03/2016 3:06 PM DECAL CUTTER Body Mass Index 42.88 12/03/2016 3:06 PM DECAL CUTTER documented in this encounter Progress Notes * Sergo Mackey MD - 12/03/2016 3:00 PM CST Reason For Visit Reason For Visit: Acute Visit Chief Complaint Patient c/o elevated blood sugar , hair loss, abdominal pain , bloating and diarrhea. History of Present Illness HPI Free Text: Here complaining of abdominal discomfort and bloating that seem progressively getting worse for thelast 4 days or so. She points the discomfort in the right upper quadrant area. She has been unable to keep anything down and has had diarrhea with significant amount of mucus. She thought she was experiencing a flare of IBS so she has taken her IBS medicine, which did not do anything. She reports that she has been diagnosed with this for over a year now. Her biggest concern is that of excessive sweating and wonders if she might be having a hyperactive thyroid or estrogen problem. This usually accompanies when her periods are about ready to start. She does have a history of PCOS and is following up with her [facility]. She is trying to get a second opinion for this and will be seeing another specialist in a few days. She also reports that her blood sugars have been spiking over 200s lately. She has had no history of diabetes and has never been on on any medicine for this. Review of Systems See HPI for pertinent positives. Active Problems 1. Abdominal cramping, generalized (789.07) (R10.84) 2. Abnormal urine finding (791.9) (R82.90) 3. Antibiotic-induced yeast infection (112.9) (B37.9,T36.95XA) 4. Bilateral otitis externa (380.10) (H60.93) 5. Bilateral otitis media (382.9) (H66.93) 6. Bipolar mood disorder (296.80) (F31.9) 7. Chronic diarrhea (787.91) (K52.9) 8. Elevated blood pressure 9. Flushing (782.62) (R23.2) 10. Headache (784.0) (R51) 11. Hypertension (401.9) (I10) 12. Leukocytes in urine (791.7) (R82.99) 13. Neck pain (723.1) (M54.2) 14. Palpitations (785.1) (R00.2) 15. Panic disorder without agoraphobia (300.01) (F41.0) 16. Recurrent urinary tract infection (599.0) (N39.0) 17. Urinary frequency (788.41) (R35.0) 18. Vitamin d deficiency (268.9) (E55.9) 19. Vomiting and diarrhea (787.03,787.91) (R11.10,R19.7) Past Medical [...] BY MOUTH TWICE DAILY; Therapy: 13Aug2016 to (Evaluate:[id number]) Requested for: 21Sep2016; Last Rx:21Sep2016 Ordered Rx By: Nellie Moy; Dispense: 30 Days ; #:60 Capsule; Refill: 0; For: Abdominal cramping, generalized; JULIANA = N; Print Rx; Last Updated By: [employer]; 09/21/2016 8:25:38 AM 2. ClonazePAM 1 MG Oral Tablet; TAKE 1 TABLET BY MOUTH THREE TIMES DAILY NEEDED; Therapy: 10Sep2016 to (Evaluate:26Nov2016) Requested for: 27Oct2016; Last Rx:27Oct2016 Ordered Rx By: Sergo Mackey; Dispense: 30 Days ; #:90 TAB; Refill: 0; For: Bipolar mood disorder; JULIANA =N; Print Rx; Last Updated By: [employer]; 12/03/2016 3:33:49 PM 3. Metoprolol Tartrate 25 MG Oral Tablet; TAKE 1 TABLET TWICE DAILY; Therapy: 05Aug2016 to (Evaluate:[id number]) Requested for: 13Aug2016; Last Rx:13Aug2016 Ordered Rx By: Nellie Moy; Dispense: 30 Days ; #:60 Tablet; Refill: 5; For: Palpitations; JULIANA = N; Verified Transmission to [employer] [id number]; Last Updated By: [employer]; 08/13/2016 3:19:40 PM Allergies 1. 12 Hour Decongestant TB12 Recorded By: Shirley Zhang; 04/10/2014 3:10:36 PM Vitals Recorded: 08Okt9168 03:06PM Heart Rate 112 Respiration 16 Systolic 126 Diastolic 80 O2 Saturation 98 Height 5 ft 8 in Weight 282 lb BMI Calculated 42.88 BSA Calculated 2.37 Physical Exam Constitutional General appearance: No acute distress, well appearing and well nourished. Musculoskeletal Gait and station: Normal. Psychiatric Mood and affect: Normal. Assessment 1. Continuous RUQ abdominal pain (789.01) (R10.11) 2. Chronic diarrhea (787.91) (K52.9) 3. Hyperglycemia (790.29) (R73.9) 4. PCOS (polycystic ovarian syndrome) (256.4) (E28.2) Plan Bipolar mood disorder 1. ClonazePAM 1 MG Oral Tablet; TAKE 1 TABLET BY MOUTH THREE TIMES DAILY NEEDED Rx By: Sergo Mackey; Dispense: 30 Days ; #:90 Tablet; Refill: 1; For: Bipolar mood disorder; JULIANA = N; Print Rx Chronic diarrhea, Continuous RUQ abdominal pain, Hyperglycemia, PCOS (polycystic ovarian syndrome) 2. *A1C In Office; Status:Active; Requested for:03Dec2016; Perform:In Office; Due:02Jan2017; Last Updated By:Fariba Garvey; 12/03/2016 3:28:37 PM;Ordered; For:Chronic diarrhea, Continuous RUQ abdominal pain, Hyperglycemia, PCOS (polycystic ovarian syndrome); Ordered By:Sergo Mackey; 3. CBC W Differential; Status:Hold For - Manual Activation; Requested for:03Dec2016; Perform:[facility]; Due:02Jan2017; Last Updated By:Fariba Garvey; 12/03/2016 3:28:37 PM;Ordered; For:Chronic diarrhea, Continuous RUQ abdominal pain, Hyperglycemia, PCOS (polycystic ovarian syndrome); Ordered By:Sergo Mackey; 4. Celiac Ab Evaluation; Status:Hold For - Manual Activation; Requested for:03Dec2016; Perform:[facility]; Due:02Jan2017; Last Updated By:Fariba Garvey; 12/03/2016 3:28:37 PM;Ordered; For:Chronic diarrhea, Continuous RUQ abdominal pain, Hyperglycemia, PCOS (polycystic ovarian syndrome); Ordered By:Sergo Mackey; 5. Compr Metabolic Prof ( CMP ); Status:Hold For - Manual Activation; Requested for:03Dec2016; Perform:[facility]; Due:02Jan2017; Last Updated By:Fariba Garvey; 12/03/2016 3:28:37 PM;Ordered; For:Chronic diarrhea, Continuous RUQ abdominal pain, Hyperglycemia, PCOS (polycystic ovarian syndrome); Ordered By:Sergo Mackey; 6. Free T4 ( Thyroxine ); Status:Hold For - Manual Activation; Requested for:03Dec2016; Perform:[facility]; Due:02Jan2017; Last Updated By:Fariba Garvey; 12/03/2016 3:28:37 PM;Ordered; For:Chronic diarrhea, Continuous RUQ abdominal pain, Hyperglycemia, PCOS (polycystic ovarian syndrome); Ordered By:Sergo Mackey; 7. Thyroid Stim Hormone ( TSH ); Status:Hold For - Manual Activation; Requested for:03Dec2016; Perform:[facility]; Due:02Jan2017; Last Updated By:Fariba Garvey; 12/03/2016 3:28:37 PM;Ordered; For:Chronic diarrhea, Continuous RUQ abdominal pain, Hyperglycemia, PCOS (polycystic ovarian syndrome); Ordered By:Sergo Mackey; F/U with Senior Oracle Developer as planned. US ABDOMEN LIMITED RUQ; Status:Hold For - Scheduling; Requested for:03Dec2016; Perform:Other Radiology; Due:02Jan2017; Last Updated By:Fariba Garvey; 12/04/2016 9:31:26 AM;Ordered; For:Chronic diarrhea, Continuous RUQ abdominal pain, Hyperglycemia, PCOS (polycystic ovarian syndrome); Ordered By:Sergo Mackey; Follow-up visit in 2 months Outpatient Follow-up Status: Hold For - Scheduling Requested for: 03Dec2016 Ordered; For: Chronic diarrhea, Continuous RUQ abdominal pain, Hyperglycemia, PCOS (polycystic ovarian syndrome); Ordered By: Sergo Mackey Performed: Due: 17Dec2016; Last Updated By: Fariba Garvey; 12/04/2016 9:31:26 AM Signatures Electronically signed by : Sergo Mackey M.D.; Dec 07 2016 2:42AM DECAL CUTTER (Author) documented in this encounter Plan of Treatment Not on file documented as of this encounter Visit Diagnoses Not on filedocumented in this encounter Care Teams Gasoline Service Attendant Relationship Specialty Start Date End Date Sergo Mackey MD PCP - General 04/07/17 Sergo Mackey MD PCP - General 08/05/16 04/06/17 documented as of this encounter
--- OUTSIDE RECORDS SUMMARY | 2024-11-04 23:51 | XMS_ITS | Encounter Summary ---
Author Organization [facility] Address [facility] [facility] [address] [place] [address] Care Team Providers Care Drafting Teacher Name Role Phone Sergo Mackey MD Primary Care Provider Julian short Encounter Details Date Type Department Care Team (Late st Contact Info) Description 07/06/2017 Abstract [facility] Medical Group Family & Internal Medicine [address] [phone] Sergo Mackey MD Social History [...] Mass Index 45.16 07/06/2017 2:18 PM CDT documented in this encounter Progress Notes * Sergo Mackey MD - 07/06/2017 2:00 PM CDT Reason For Visit Reason For Visit: Acute Visit Chief Complaint patient c/o shakey legs and falling when walking , states that she has been in bed most of the last1 months. Patient also c/o blood pressures in the 100/60's and pulse 60-70 , pressure in her head with shallow breathing and an almost euphoric feeling that scares her History of Present Illness HPI Free Text: Here complaining of upper down blood pressure is closely related to her anxiety. She is trying to take metoprolol but is not even tolerate one fourth of a 25 mg tablet. This makes her to tired and then does not control her blood pressure when she is anxious. She is using Klonopin off and on. She ishaving frequent falls with leg weakness and tremor in her extremities. She has had a normal MRI of the head along with EEG and screening labs. Review of Systems See HPI for pertinent positives. Constitutional: feeling tired. Cardiovascular: palpitations and lower extremity edema, but no chest pain. Respiratory: shortness of breath during exertion, but no cough. Gastrointestinal: no abdominal pain. Neurological: no confusion, no dizziness and no fainting. Active Problems 1. Abdominal cramping, generalized (789.07) (R10.84) 2. Abnormal ultrasound of abdomen (793.6) (R93.5) 3. Abnormal urine finding (791.9) (R82.90) 4. Allergic rhinitis (477.9) (J30.9) 5. Antibiotic-induced yeast infection (112.9) (B37.9,T36.95XA) 6. Atypical chest pain (786.59) (R07.89) 7. Bipolar mood disorder (296.80) (F31.9) 8. Chronic diarrhea (787.91) (K52.9) 9. Continuous RUQ abdominal pain (789.01) (R10.11) 10. Dizziness (780.4) (R42) 11. Dysuria (788.1) (R30.0) 12. Elevated blood pressure 13. Fever (780.60) (R50.9) 14. Flushing (782.62) (R23.2) 15. Headache (784.0) (R51) 16. Hematuria (599.70) (R31.9) 17. Hyperglycemia (790.29) (R73.9) 18. Hypertension (401.9) (I10) 19. IBS (irritable bowel syndrome) (564.1) (K58.9) 20. Leukocytes in urine (791.7) (R82.99) 21. Near syncope (780.2) (R55) 22. Neck pain (723.1) (M54.2) 23. Palpitations (785.1) (R00.2) 24. Panic disorder without agoraphobia (300.01) (F41.0) 25. PCOS (polycystic ovarian syndrome) (256.4) (E28.2) 26. Recurrent urinary tract infection (599.0) (N39.0) 27. Urinary frequency (788.41) (R35.0) 28. Vitamin d deficiency (268.9) (E55.9) 29. Vomiting and diarrhea (787.03,787.91) (R11.10,R19.7) Past Medical History Patient indicats no significant past medical history. Surgical History 1. History of Oral Surgery Tooth Extraction Family History Mother 1. Family history of diabetes mellitus (V18.0) (Z83.3) 2. Family history of hypertension (V17.49) (Z82.49) Social History ?? Never a smoker ?? Single Current Meds 1. ClonazePAM 1 MG Oral Tablet; TAKE 1 TABLET BY MOUTH THREE TIMES DAILY NEEDED; Therapy: 10Sep2016 to (Evaluate:01Feb2017) Requested for: [id number]; Last Rx:[id number] Ordered Rx By: Sergo Mackey; Dispense: 30 Days ; #:90 Tablet; Refill: 1; For: Bipolar mood disorder; JULIANA = N; Print Rx 2. Fluticasone Propionate 50 MCG/ACT Nasal Suspension; USE 2 SPRAYS IEN QD; Therapy: 90Ona8609 to (Evaluate:15Apr2017) Requested for: 75Gzv7161; Last Rx:[id number] Ordered Rx By: Sergo Mackey; Dispense: 30 Days ; #:1 X 16 GM Bottle; Refill: 0; For: Allergic rhinitis;JULIANA = N; Verified Transmission to [facility] [id number]; Last Updated By: Dayron Rae;03/16/2017 3:38:23 PM Allergies 1. 12 Hour Decongestant TB12 Recorded By: Shirley Zhang; 04/10/2014 3:10:36 PM Vitals Recorded: 16Rhe7373 02:18PM Heart Rate 117 Respiration 16 Systolic 127 Diastolic 89 O2 Saturation 98 Height 5 ft 8 in Weight 297 lb BMI Calculated 45.16 BSA Calculated 2.42 Physical Exam Constitutional General appearance: No acute distress, well appearing and well nourished. Pulmonary Respiratory effort: No increased work of breathing or signs of respiratory distress. Auscultation of lungs: Clear to auscultation. Cardiovascular Auscultation of heart: Normal rate and rhythm, normal S1 and S2, without murmurs. Examination of extremities for edema and/or varicosities: Abnormal. Trace edema ankles. Musculoskeletal Gait and station: Normal. Psychiatric Orientation to person, place, and time: Normal. Mood and affect: Normal. Assessment 1. Labile blood pressure (796.2) (R09.89) 2. Frequent falls (V15.88) (R29.6) 3. Weakness generalized (780.79) (R53.1) 4. Tremor (781.0) (R25.1) 5. Bipolar mood disorder (296.80) (F31.9) 6. Vitamin d deficiency (268.9) (E55.9) Plan Frequent falls, Labile blood pressure, Neck pain, Tremor, Weakness generalized 1. Lisinopril 2.5 MG Oral Tablet; TAKE 1 TABLET BY MOUTH EVERY DAY Rx By: Sergo Mackey; Dispense: 30 Days ; #:30 Tablet; Refill: 0; For: Frequent falls, Labile blood pressure, Neck pain, Tremor, Weakness generalized; JULIANA = N; Verified Transmission to [facility] [address]; Last Updated By: Dayron Rae; 07/06/2017 2:59:43 PM 2. MRI C SPINE W/O; Status:Need Information - Financial Authorization; Requested for:[id number]; Perform:[facility]; Due:05Aug2017; Last Updated By:Carmela Haynes; 07/06/2017 3:06:15 PM;Ordered; For:Frequent falls, Labile blood pressure, Neck pain, Tremor, Weakness generalized; Ordered By:Sergo Mackey; [facility] 3. MRI L SPINE W/O; Status:Need Information - Financial Authorization; Requested for:[id number]; Perform:Other Rad[facility]; Due:05Aug2017; Last Updated By:Fariba Garvey; 07/06/2017 2:59:16 PM;Ordered; For:Frequent falls, Labile blood pressure, Neck pain, Tremor, Weakness generalized; Ordered By:Sergo Mackey; 4. MRI T SPINE W/O; Status:Need Information - Financial Authorization; Requested for:06Jul2017; Perform:Other [facility]; Due:05Aug2017; Last Updated By:Fariba Garvey; 07/06/2017 2:59:16 PM;Ordered; For:Frequent falls, Labile blood pressure, Neck pain, Tremor, Weakness generalized; Ordered By:Sergo Mackey; 5. Vitamin B12; Status:Hold For - Manual Activation; Requested for:06Jul2017; Perform:[facility]; Due:05Aug2017; Last Updated By:Fariba Garvey; 07/06/2017 2:59:16 PM;Ordered; For:Frequent falls, Labile blood pressure, Neck pain, Tremor, Weakness generalized; Ordered By:Sergo Mackey; 6. Vitamin D 25 - Hydroxy; Status:Hold For - Manual Activation; Requested for:06Jul2017; Perform:[facility]; Due:05Aug2017; Last Updated By:Fariba Garvey; 07/06/2017 2:59:16 PM;Ordered; For:Frequent falls, Labile blood pressure, Neck pain, Tremor, Weakness generalized; Ordered By:Sergo Mackey; She understands I will have exhausted my input into her chronic symptoms after these tests are performed. She'll need followup with her neurologist and imaging scheduler for further direction. Signatures Electronically signed by : Sergo Mackey M.D.; Jul 07 2017 5:33AM PEARL PELLER (Author) documented in this encounter Plan of Treatment Not on file documented as of this encounter Visit Diagnoses Not on filedocumented in this encounter Care Teams Drafting Teacher Relationship Specialty Start Date End Date Sergo Mackey MD PCP - General 04/07/17 documented as of this encounter
--- OUTSIDE RECORDS SUMMARY | 2024-11-04 23:51 | XMS_ITS | Encounter Summary ---
Author Organization [facility] Address [facility] [facility] [place] [address] [place] [address] Care Team Providers Care Aluminum Siding Mechanic Name Role Phone Sergo Mackey MD Primary Care Provider Sergo Duncan MD Primary Care Provider Julian short Encounter Details Date Type Department Care Team (Latest Contact Info) Description 03/22/2017 Abstract [facility] Medical Group Social History Tobacco Use Types Packs/Day Years Used Date Smoking Tobacco: Never Assessed Comments Unknown Sex and Gender Information Value Date Recorded Sex Assigned at Not on file Legal Sex Female 5:18 PM CDT Gender Identity Not on file Sexual Orientation Not on file documented as of this encounter Progress Notes * James Pineda Md, MD - 03/22/2017 2:38 PM CDT Message Recorded as Task Date: 03/19/2017 08:53 AM, Created By: Sergo Mackey Task Name: Follow Up Assigned To: [facility] Team Narendra Regarding Patient: Alia Fabian, Status: In Progress Comment: Sergo Mackey - 19 Mar 2017 8:53 AM TASK CREATED Our routine labs (cbc, cmp, tsh) are all good/normal. Await lab results from singer songwriter. Fariba Garvey - 19 Mar 2017 8:55 AM TASK IN PROGRESS Fariba Garvey - 19 Mar 2017 8:56 AM TASK EDITED [id number] Jovanni Omalley - 22 Mar 2017 2:38 PM TASK EDITED pt informed and voiced understanding Signatures Electronically signed by : Jovanni Omalley MA; Mar 22 2017 2:38PM SURPLUS PROPERTY DISPOSAL AGENT (Author) documented in this encounter Plan of Treatment Not on file documented as of this encounter Visit Diagnoses Not on filedocumented in this encounter Care Teams Aluminum Siding Mechanic Relationship Specialty Start Date End Date Sergo Mackey MD PCP - General 04/07/17 Sergo Mackey MD PCP - General 08/05/16 04/06/17 documented as of this encounter
--- OUTSIDE RECORDS SUMMARY | 2024-11-04 23:51 | XMS_ITS | Encounter Summary ---
Author Organization [facility] Address [address] [place] [address]. [place], [place] [address] [place] [id number] Care Team Providers Care Wrapper Hands Sprayer Name Role Phone Sergo Mackey MD Primary Care Provider Sergo Duncan MD Primary Care Provider Julian short Encounter Details Date Type Department Care Team (Latest Contact Info) Description 12/08/2016 Abstract [facility] Medical Group Sergo Mackey MD Social History [...] on filedocumented in this encounter Care Teams Wrapper Hands Sprayer Relationship Specialty Start Date End Date Sergo Mackey MD PCP - General 04/07/17 Sergo Mackey MD PCP - General 08/05/16 04/06/17 documented as of this encounter
--- OUTSIDE RECORDS SUMMARY | 2024-11-04 23:52 | XMS_ITS | Encounter Summary ---
Author Organization [facility] Address [address] [place] [address]. [place], [place] [id number] [place] [address] Care Team Providers Care Washer Repairman Name Role Phone Sergo Mackey MD Primary Care Provider Sergo Duncan MD Primary Care Provider Sergo Duncan MD Primary Care Provider Sergo Duncan MD Primary Care Provider Julian short Encounter Details Date Type Department Care Team (Late st Contact Info) Description 07/14/2016 Abstract [facility] Medical Group Family & Internal Medicine [address] [phone] Sergo Mackey MD Social History [...] Sign Reading Time Taken Comments Blood Pressure 132/88 07/14/2016 1:24 PM CDT Pulse 86 07/14/2016 1:24 PM CDT Temperature - - Respiratory Rate - - Oxygen Saturation - - Inhaled Oxygen Concentration - - Weight 122.9 kg (271 lb) 07/14/2016 1:24 PM CDT Height 172.7 cm (5' 8 ) 07/14/2016 1:24 PM CDT Body Mass Index 41.21 07/14/2016 1:24 PM CDT documented in this encounter Progress Notes * Generic Conversion MD Ashkan - 07/14/2016 4:14 PM CDT Message Recorded as Task Date: 07/10/2016 06:03 AM, Created By: Sergo Mackey Task Name: Follow Up Assigned To: [facility] [place] [place] Narendra Regarding Patient: Alia Fabian, Status: In Progress Comment: Sergo Mackey 10 Jul 2016 6:03 AM TASK CREATED We were going to do some additional tests to look into her episodic flushing, palpitations and diarrhea; measuring various hormones in urine. 24 hour urine histamine, catecolamine, fractionated metanephrines, 5-HIAA Did Ugo ever get her a list of her past meds? Miguel,10 Jul 2016 1:42 PM TASK IN PROGRESS Miguel10 Jul 2016 1:51 PM TASK EDITED Patient has some added sx that she wanted you to know about, pulse has come back to normal rate. Patient is now very dizzy and light headed throught the day. she has noticed flushing is more on the right side of her face than the left. She wanted to tell you incase you wanted to add any additonal labs//af Miguel10 Jul 2016 1:51 PM TASK REASSIGNED: Previously Assigned To [facility] [place] Team Sergo Johnston - 10 Jul 2016 2:43 PM TASK REASSIGNED: Previously Assigned To Sergo Mackey Those additions are important but they do not change my planned testing. She had more general testing a short time ago that was good. AidenEloisa - 10 Jul 2016 3:55 PM TASK EDITED No answer - Krystal-елена Message: addressed at patients appointment -sjs Signatures Electronically signed by : Fariba Garvey MA; Jul 14 2016 4:15PM RADIO PROGRAM DIRECTOR (Author) * Sergo Mackey MD - 07/14/2016 1:15 PM CDT Reason For Visit Reason For Visit: Acute Visit Chief Complaint Patient c/o rapid and slow pulse, flushing, hot flashes, cold and clammy hands and feet, sharp dullpains in her head, frequent urination and fluctuating blood pressure. Was seen at [facility] for UTI 3 days ago. History of Present Illness HPI Free Text: Here today with multiple concerns. She does complain of some occasional flushing, palpitations, cold and clammy hands and feet as well as diarrhea. She is also having fluctuations in her blood pressures which seems to be correlated to her palpitations. Has only been taking clonazepam and magnesium supplement. She reports she ended up going to the [facility] 3 days ago complaining of flushing, chills and frequent urination. She states she had a urine test done but the results were not available today. She was then told she had a bladder infection and she was placed on Cipro for 1 week. She had started the Cipro yesterday and has been increasing her fluid intake. She is also complaining of i ntermittent headaches that have been going on for several years. She describes the pain as dull andstabbing in nature. She feels like her symptoms are probably hormonal related and would like to have some blood tests. Review of Systems See HPI for pertinent positives. Active Problems 1. Bipolar mood disorder (296.80) (F31.9) 2. Chronic diarrhea (787.91) (K52.9) 3. Flushing (782.62) (R23.2) 4. Hypertension (401.9) (I10) 5. Neck pain (723.1) (M54.2) 6. Palpitations (785.1) (R00.2) 7. Panic disorder without agoraphobia (300.01) (F41.0) 8. Urinary frequency (788.41) (R35.0) Past Medical History Patient indicats no significant past medical history. Surgical History 1. History of Oral Surgery Tooth Extraction Family History Mother 1. Family history of diabetes mellitus (V18.0) (Z83.3) 2. Family history of hypertension (V17.49) (Z82.49) Social History ?? Never a smoker ?? Single Current Meds 1. ClonazePAM 1 MG Oral Tablet; TAKE ONE TABLET THREE TIMES DAILY NEEDED ; Therapy: 10Apr2014 to (Last Rx:[id number]) Ordered Rx By: Sergo Mackey; Dispense: 0 Days ; #:90 Tablet; Refill: 0; For: Palpitations; JULIANA = N; Print Rx; Last Updated By: Fariba Garvey; 06/16/2016 3:06:43 PM Allergies 1. 12 Hour Decongestant TB12 Recorded By: Shirley Zhang; 04/10/2014 3:10:36 PM Vitals Recorded: 14Jul2016 01:24PM Heart Rate 86 Respiration 18 Systolic 132 Diastolic 88 O2 Saturation 99 Height 5 ft 8 in Weight 271 lb BMI Calculated 41.21 BSA Calculated 2.33 Physical Exam Constitutional General appearance: No acute [...] No lymphadenopathy. Musculoskeletal Gait and station: Normal. Results/Data 14 Jul 2016 2:47 PM *Urine dip auto In Office Color Yellow Clarity Slightly cloudy Glucose Negative Bilirubin Negative Ketones Negative Specific [place] 1.015 Blood Negative pH 6.5 Protein Negative Urobilinogen 0.2 E.U./dL Nitrites neg Leukocytes Trace Assessment 1. Urinary frequency (788.41) (R35.0) 2. Hypertension (401.9) (I10) 3. Flushing (782.62) (R23.2) 4. Chronic diarrhea (787.91) (K52.9) 5. Palpitations (785.1) (R00.2) Plan Abnormal urine finding, Leukocytes in urine 1. Urine Culture; Status:In Progress - Specimen/Data Collected; Done: 15Jul2016 Perform:[facility]; Due:14Aug2016; Last Updated By:Angela Lal; 07/14/2016 2:48:48 PM;Ordered; For:Abnormal urine finding, Leukocytes in urine; Ordered By:Sergo Mackey; Source: : Clean Catch Chronic diarrhea, Flushing, Palpitations, Urinary frequency 2. Urine 5 - HIAA 24 Hr; Status:Hold For - Manual Activation; Requested for:14Jul2016; Perform:[facility]; Due:13Aug2016; Last Updated By:Angela Lal; 07/14/2016 2:38:00 PM;Ordered; For:Chronic diarrhea, Flushing, Palpitations, Urinary frequency; Ordered By:Sergo Mackey; 3. Urine Fract Catecholamine; Status:Hold For - Manual Activation; Requested for:[id number]; Perform:. [facility]; Due:13Aug2016; Last Updated By:Angela Lal; 07/14/2016 2:38:00 PM;Ordered; For:Chronic diarrhea, Flushing, Palpitations, Urinary frequency; Ordered By:Sergo Mackey; 4. Urine Metanephrines 24 Hr; Status:Hold For - Manual Activation; Requested for:[id number]; Perform:. [facility]; Due:13Aug2016; Last Updated By:Angela Lal; 07/14/2016 2:38:00 PM;Ordered; For:Chronic diarrhea, Flushing, Palpitations, Urinary frequency; Ordered By:Sergo Mackey; I will review her pharmacy records and look to start a new medicine for her mood disorder. Signatures Electronically signed by : Sergo Mackey M.D.; Jul 15 2016 8:57PM RADIO PROGRAM DIRECTOR (Author) documented in this encounter Plan of Treatment Not on file documented as of this encounter Procedures Procedure Name Priority Date/Time Associated Diagnosis Comments CATECHOLAMINES URINE 24 HR Routine 07/16/2016 3:35 PM CDT METANEPHRINES URINE 24 HR Routine 07/16/2016 3:35 PM CDT 5-HIAA URINE 24 HR Routine 07/16/2016 3: 35 PM CDT URINALYSIS AUTO DIP Routine 07/14/2016 2 :47 PM CDT URINE BACTERIA CULTURE Routine 6 2:41 PM CDT documented in this encounter Results * METANEPHRINES URINE 24 HR (07/16/2016 3:35 PM CDT) METANEPHRINE (U) 24 HR 70 [facility] TO EPIC CONVERSION Comment: Result Comment: Reference range: 25 to 222 Unit: mcg/24 h NORMETANEPHRINE (U) 24 HRS 190 [facility] TO EPIC CONVERSION Comment: Result Comment: Reference range: 40 to 412 Unit: mcg/24 h METANEPHRINES TOTAL (U) 260 [facility] TO EPIC CONVERSION Comment: Result Comment: Reference range: 94 to 604 Unit: mcg/24 h A four fold elevation of urinary normetanephrines is extremely likely to be due to a tumor, while a four fold elevation of urinary metanephrines is highly suggestive, but not diagnostic of the tumor. Measurement of plasma Metanephrines and Chromogranin A is recommended for confirmation. Test Performed by [facility], [address] [place] [address] Aaron Kennedy M.D., Ph.D., Director of Laboratories , CLIA [id number] VOLUME (U) 2525 ML [facility] TO EPIC CONVERSION 07/16/2016 3:35 PM CDT 07/16/2016 3:35 PM CDT Narrative [facility] TO EPIC CONVERSION - 07/22/2016 4:46 AM CDT Result Communication: No patient communication needed at this time us Sergo Mackey MD URINE ORDERABLES Final Result [facility] TO EPIC CONVERSION * CATECHOLAMINES URINE 24 HR (07/16/2016 3:35 PM CDT) DOPAMINE (U) 379 [facility] P TO EPIC CONVERSION Comment: Result Comment: Reference range: 52 to 480 Unit: mcg/24 h Test Performed by [facility], [facility], [address] [place] [address] Aaron Kennedy M.D., Ph.D., Director of Laboratories , CLIA [id number] EPINEPHRINE (U) REPORT Results are below the reportable range for this analyte, which is 2.0 mcg/L. [facility] TO EPIC CONVERSION NOREPINEPHRINE (U) 51 [facility] TO EPIC CONVERSION Comment: Result Comment: Reference range: 15 to 100 Unit: mcg/24 h CATECHOLAMINE-URI NE TOTAL 51 [facility] TO EPIC CONVERSION Comment: Result Comment: Reference range: 26 to 121 Unit: mcg/24 h VOLUME (U) 2525 ML [facility] TO EPIC CONVERSION 07/16/2016 3:35 PM CDT 07/16/2016 3:35 PM CDT Narrative [facility] TO EPIC CONVERSION - 07/22/2016 3:42 AM CDT Result Communication: Call patient with results Sergo Mackey MD URINE ORDERABLES Final Result [facility] TO [facility]IC CONVERSION * 5-HIAA URINE 24 HR (07/16/2016 3:35 PM CDT) 5-HIAA 24HR (U) 3.3 [facility] TO EPIC CONVERSION Comment: Result Comment: Reference range: <=6.0 Unit: mg/24 h VOLUME (U) 2525 ML [facility] TO EPIC CONVERSION 07/16/2016 3:35 PM CDT 07/16/2016 3:35 PM CDT Narrative [facility] TO EPIC CONVERSION - 07/22/2016 4:46 AM CDT Result Communication: No patient communication needed at this time Sergo Mackey MD URINE ORDERABLES Final Result Performing Organization Address City/[facility] Co de Phone Number [facility] TO EPIC CONVERSION * URINALYSIS AUTO DIP (07/14/2016 2:47 PM CDT) COLOR (U) Yellow [facility] T O EPIC CONVERSION TRANSPARENCY Slightly cloudy [facility] TO [facility]IC CONVERSION GLUCOSE Negative [facility] T O EPIC CONVERSION BILIRUBIN (U) Negative [facility] UP TO EPIC CONVERSION KETONE (U) Negative [facility] TO EPIC CONVERSION SPECIFIC GRAVITY (U) 1.015 [facility] TO EPIC CONVERSION BLOOD (U) Negative [facility] T O EPIC CONVERSION PH (U) 6.5 5.0 - 7.0 [facility] T O EPIC CONVERSION PROTEIN (ELP) (U) Negative [facility] TO EPIC CONVERSION UROBILINOGEN 0.2 E.U./dL [facility] OUP TO EPIC CONVERSION NITRITES neg [facility] T O EPIC CONVERSION LEUKOCYTES (U) Trace [facility] OUP TO EPIC CONVERSION 07/14/2016 2:47 PM CDT 07/14/2016 2:47 PM CDT Narrative [facility] TO EPIC CONVERSION - 07/14/2016 2:47 PM CDT Result Communication: No patient communication needed at this time us Sergo Mackey MD URINE ORDERABLES Final Result Performing Organization Address [facility] de Phone Number [facility] TO EPIC CONVERSION * CULTURE URINE (07/14/2016 2:41 PM CDT) CULTURE URINE SPECIMEN DESCRIPTION ? - URINE CLEAN CATCH SPECIAL REQUESTS ? - NO SPECIAL REQUEST CULTURE ?- NO GROWTH 2 DAYS REPORT STATUS ?- FINAL 07/17/2016 [facility] TO EPIC CONVERSION 07/14/2016 2:41 PM CDT 07/14/2016 2:41 PM CDT Narrative [facility] TO EPIC CONVERSION - 07/17/2016 8:10 AM CDT Result Communication: Call patient with results us Sergo Mackey MD MICROBIOLOGY - GENERAL ORDERA BLES Final Result Performing Organization Address [facility] de Phone Number [facility] TO EPIC CONVERSION documented in this encounter Visit Diagnoses Not on filedocumented in this encounter Care Teams Washer Repairman Relationship Specialty Start Date End Date Sergo Mackey MD PCP - General 04/07/17 Sergo Mackey MD PCP - General 08/05/16 04/06/17 Sergo Mackey MD PCP - General 07/16/16 08/04/16 Sergo Mackey MD PCP - General 07/14/16 07/15/16 documented as of this encounter
--- OUTSIDE RECORDS SUMMARY | 2024-11-04 23:52 | XMS_ITS | Encounter Summary ---
Author Organization [facility] Address [address] [place] [address]. [place] [address] [place] [address] Care Team Providers Care Child & Adolescent Psychiatrist Name Role Phone Sergo Mackey MD Primary Care Provider Sergo Duncan MD Primary Care Provider Sergo Duncan MD Primary Care Provider Sergo Duncan MD Primary Care Provider Julian short Encounter Details Date Type Department Care Team (Late st Contact Info) Description 07/14/2016 Abstract [facility] [place] [address] Sergo Mackey MD Social History [...] Associated Diagnosis Comments URINE BACTERIA CULTURE Routine 07/14/2016 2:41 PM CDT documented in this encounter Results * CULTURE URINE (07/14/2016 2:41 PM CDT) SPEC DESCRIPTION URINE CLEAN CATCH 07/14/2016 5:40 PM CDT [facility] SPECIAL REQUESTS NO SPECIAL REQUEST 07/14/2016 5:40 PM CDT [facility] CULTURE RESULT NO GROWTH 2 DAYS 07/17/2016 8:10 AM CDT [facility] URINE SPECIMEN OBTAINED BY CLEAN CATCH PROCEDURE / Unknown 07/14/2016 2:41 PM CDT 07/14/2016 7:08 PM CDT us Generic Conversion Md [facility] - GENERAL ORDERABLES Final Result [facility] [address] [place] [address], [place] [phone] documented in this encounter Visit Diagnoses Diagnosis Other abnormal findings in urine documented in this encounter Care Teams Child & Adolescent Psychiatrist Relationship Specialty Start Date End Date Sergo Mackey MD PCP - General 04/07/17 Sergo Mackey MD PCP - General 08/05/16 04/06/17 Sergo Mackey MD PCP - General 07/16/16 08/04/16 Sergo Mackey MD PCP - General 07/14/16 07/15/16 documented as of this encounter
--- OUTSIDE RECORDS SUMMARY | 2024-11-04 23:52 | XMS_ITS | Encounter Summary ---
Author Organization [facility] Address Pending sale to [facility]. [place], [place] [address] [place] [address] Care Team Providers Care Flatwork Catcher Name Role Phone Sergo Mackey MD Primary Care Provider Sergo Duncan MD Primary Care Provider Sergo Duncan MD Primary Care Provider Sergo Duncan MD Primary Care Provider Sergo Duncan MD Primary Care Provider Julian short Encounter Details Date Type Department Care Team (Latest Contact Info) Description 10/07/2015 Abstract [facility] Medical [...] Notes * Generic Conversion MD Ashkan - 10/07/2015 2:09 PM CST Message Recorded as Task Date: 10/01/2015 07:51 PM, Created By: Sergo Mackey Task Name: Follow Up Assigned To: [facility] [place] Narendra Regarding Patient: Alia Fabian, Status: In Progress Comment: Sergo Mackey - 01 Oct 2015 7:51 PM TASK CREATED Mom is in the office and reports patient has panic attacks with agoraphobia. The patient is currently unable to leave the house. Mom has been trying to arrange for in-home counseling. I agreed to send out a small amount of Klonopin which she has taken off and on for many years with some success. This will be a one- time prescription that will not be refilled under any circumstances. Please relate to mom that it is imperative the patient get counseling either inside or outside the home. I will not personally address the patient's psychiatric problems in the future and she is in need of attention beyond my expertise. Klonopin 1 mg, #20, one half to one tablet three times a day as needed. Use sparingly. No refills. Ibeth Van - 02 Oct 2015 12:14 PM TASK IN PROGRESS Ibeth Van - 02 Oct 2015 12:14 PM TASK EDITED lmtc Jovanni Omalley - 07 Oct 2015 11:40 AM TASK EDITED lmom for pt to call Message: pt mom carlos- jase Plan 1. From ClonazePAM 1 MG Oral Tablet Take one half to one tablet twice a day as needed To ClonazePAM 1 MG Oral Tablet Take one half to one tablettid as needed Rx By: Sergo Mackey; Dispense: 0 Days ; #:20 Tablet; Refill: 0; For: Palpitations; JULIANA = N; Print Rx; Last Updated By: Ibeth Van; 04/10/2014 3:41:32 PM Signatures Electronically signed by : Ibeth Van, ; Oct 07 2015 2:10PM LOTUS NOTES ADMINISTRATOR (Author) documented in this encounter Plan of Treatment Not on file documented as of this encounter Visit Diagnoses Not on filedocumented in this encounter Care Teams Flatwork Catcher Relationship Specialty Start Date End Date Sergo Mackey MD PCP - General 04/07/17 Sergo Mackey MD PCP - General 08/05/16 04/06/17 Sergo Mackey MD PCP - General 07/16/16 08/04/16 Sergo Mackey MD PCP - General 07/14/16 07/15/16 Sergo Mackey MD PCP - General 06/16/16 07/13/16 documented as of this encounter
--- OUTSIDE RECORDS SUMMARY | 2024-11-04 23:52 | XMS_ITS | Encounter Summary ---
Author Organization [facility] Address [facility]. [place], [place] [address] [place] [address] Care Team Providers Care Security Sales Consultant Name Role Phone Sergo Mackey MD Primary Care Provider Sergo Duncan MD Primary Care Provider Julian short Encounter Details Date Type Department Care Team (Latest Contact Info) Description 11/20/2016 Abstract [facility] Medical Group Social History Tobacco Use Types Packs/Day Years Used Date Smoking Tobacco: Never Assessed Comments Unknown Sex and Gender Information Value Date Recorded Sex Assigned at Not on file Legal Sex Female 5:18 PM CDT Gender Identity Not on file Sexual Orientation Not on file documented as of this encounter Miscellaneous Notes * Letter - James Pineda Md, MD - 11/20/2016 11:56 AM CST Date: Nov 20, 2016 To Whom It May Concern: This is to advise that Alia Fabian is cleared to start on the control recommended by Dr. Monroy. Patient agreed to follow up in my office 2 weeks after starting the medication. Sincerely, Sergo Mackey M.D. Electronically signed by:Fariba Garvey MA Nov 20 2016 12:01PM [place] [employer] Author documented in this encounter Plan of Treatment Not on file documented as of this encounter Visit Diagnoses Not on filedocumented in this encounter Care Teams Security Sales Consultant Relationship Specialty Start Date End Date Sergo Mackey MD PCP - General 04/07/17 Sergo Mackey MD PCP - General 08/05/16 04/06/17 documented as of this encounter
--- OUTSIDE RECORDS SUMMARY | 2024-11-04 23:52 | XMS_ITS | Encounter Summary ---
Author Organization [facility] Address [address] [place] [address]. [place] [address] [place] [address] Care Team Providers Care Ton Cylinder Inspector Name Role Phone Sergo Mackey MD Primary Care Provider Sergo Duncan MD Primary Care Provider Julian short Encounter Details Date Type Department Care Team (Late st Contact Info) Description 08/05/2016 Abstract [facility] [place] [address] Nellie Moy FNP [address] [place] [address] Social History Tobacco Use Types Packs/Day Years [...] Procedure Name Priority Date/Time Associated Diagnosis Comments COMPREHENSIVE METABOLIC PANEL Routine 08/05/2016 1:07 PM CDT CBC W/DIFF AUTOMATED Routine 08/05/2016 1:07 PM CDT documented in this encounter Results * (ABNORMAL) COMPREHENSIVE METABOLIC PANEL (08/05/2016 1:07 PM CDT) GLUCOSE 97 70 - 99 mg/dL 08/05/2016 8:27 PM CDT [facility] BUN 7(L) 8 - 23 mg/dL 08/05/2016 8:27 PM CDT [facility] CREATININE S/P/B 0.79 0.60 - 1.10 mg/dL 08/05/2016 8:27 PM CDT [facility] SODIUM S/P/B 139 136 - 145 mmol/L 08/05/2016 8:27 PM CDT [facility] POTASSIUM S/P/B 4.4 3.5 - 5.1 mmol/L 08/05/2016 8:27 PM CDT [facility] CHLORIDE S/P/B 99 98 - 107 mmol/L 08/05/2016 8:27 PM CDT [facility] CO2 26 22 - 29 mmol/L 08/05/2016 8:27 PM CDT [facility] BILIRUBIN TOTAL S/P/B 0.6 0.2 - 1.2 mg/dL 08/05/2016 8:27 PM CDT [facility] CALCIUM S/P/B 10.0 8.6 - 10.2 mg/dL 08/05/2016 8:27 PM CDT [facility] ALKALINE PHOSPHATASE S/P/B 60 35 - 104 U/L 08/05/2016 8:27 PM CDT [facility] AST 25 0 - 32 U/L 08/05/2016 8:27 PM CDT [facility] TOTAL PROTEIN S/P/B 7.4 6.4 - 8.3 g/dL 08/05/2016 8:27 PM CDT [facility] ALBUMIN S/P/B 4.6 3.5 - 5.2 g/dL 08/05/2016 8:27 PM CDT [facility] ALT 22 0 - 33 U/L 08/05/2016 8:27 PM T [facility] GLOBULIN 2.8 2.3 - 3.6 g/dL 08/05/2016 8:27 PM CDT [facility] A/G RATIO 1.6 1.0 - 2.0 08/05/2016 8:27 PM CDT [facility] ANION GAP 18 8 - 20 08/05/2016 8:27 PM CDT [facility] EGFR NON-AFR. AMER. >60 >60 mL/min/1.7 3m'2 08/05/2016 8:27 PM CDT [facility] EGFR AFR. AMER. >60 >60 mL/min/1.7 3m'2 08/05/2016 8:27 PM CDT [facility] Comment: NOTE: eGFR is not calculated for patients <18 years of age. This is an estimated GFR (CKD EPI) and should not be used for calculating drug doses. 08/05/2016 1:07 PM CDT 08/05/2016 7:46 PM CDT us Generic Conversion Md [facility] Final R esult [facility] [address] [place] [id number], [place] [phone] * (ABNORMAL) CBC W/DIFF AUTOMATED (08/05/2016 1:07 PM CDT) WBC 8.0 4.8 - 10.8 X10'3/uL 08/05/2016 8:31 PM CDT [facility] RBC 4.72 4.20 - 5.40 X10'6/uL 08/05/2016 8:31 PM CDT [facility] HGB 13.9 12.0 - 16.0 g/dL 08/05/2016 8:31 PM CDT [facility] HCT 41.9 38.0 - 48.0 % 08/05/2016 8:31 PM CDT [facility] MCV 88.8 81.0 - 99.0 fL 08/05/2016 8:31 PM CDT [facility] MCH 29.4 27.0 - 31.0 pg 08/05/2016 8:31 PM CDT [facility] MCHC 33.2 32.0 - 36.0 g/dL 08/05/2016 8:31 PM CDT [facility] RDW 12.8 11.5 - 14.5 % 08/05/2016 8:31 PM CDT [facility] PLT 342 130 - 400 X10'3/uL 08/05/2016 8:31 PM CDT [facility] MPV 10.4 9.3 - 12.2 fL 08/05/2016 8:31 PM CDT [facility] DIFFERENTIAL TYPE AUTOMATED 08/05/2016 8:31 PM CDT [facility] NEUTROPHILS % 67.0(H) 43.0 - 65.0 % 08/05/2016 8:31 PM CDT [facility] LYMPHOCYTES % 22.6 20.0 - 46.0 % 08/05/2016 8:31 PM CDT [facility] MONOCYTES % 6.6 5.0 - 12.0 % 08/05/2016 8:31 PM CDT [facility] EOSINOPHILS 3.0 1.0 - 3.0 % 08/05/2016 8:31 PM CDT [facility] BASOPHILS 0.6 0.0 - 1.0 % 08/05/2016 8:31 PM CDT [facility] IMMATURE GRANS % 0.2 0.0 - 1.0 % 08/05/2016 8:31 PM CDT [facility] 08/05/2016 1:07 PM CDT 08/05/2016 7:46 PM CDT us Generic Conversion Md [facility] Final R esult [facility] [address] [place] [address], documented in this encounter Visit Diagnoses Diagnosis Vomiting Vomiting alone documented in this encounter Care Teams Ton Cylinder Inspector Relationship Specialty Start Date End Date Sergo Mackey MD PCP - General 04/07/17 Sergo Mackey MD PCP - General 08/05/16 04/06/17 documented as of this encounter
--- OUTSIDE RECORDS SUMMARY | 2024-11-04 23:52 | XMS_ITS | Encounter Summary ---
Author Organization [facility] Address [address] [place] [address]. [place] [address] [place] [address] Care Team Providers Care Serology Teacher Name Role Phone Sergo Mackey MD Primary Care Provider Sergo Dnucan MD Primary Care Provider Sergo Duncan MD Primary Care Provider Sergo Duncan MD Primary Care Provider Sergo Duncan MD Primary Care Provider Julian short Encounter Details Date Type Department Care Team (Late st Contact Info) Description 06/30/2016 Abstract [facility] Family & Internal Medicine [address] [id number] Sergo Mackey MD Social History [...] Sign Reading Time Taken Comments Blood Pressure 140/86 06/30/2016 2:09 PM CDT Pulse 120 06/30/2016 2:09 PM CDT Temperature - - Respiratory Rate - - Oxygen Saturation - - Inhaled Oxygen Concentration - - Weight 124.3 kg (274 lb) 06/30/2016 2:09 PM CDT Height 172.7 cm (5' 8 ) 06/30/2016 2:09 PM CDT Body Mass Index 41.66 06/30/2016 2:09 PM CDT documented in this encounter Progress Notes * Generic Conversion MD Ashkan - 06/30/2016 2:00 PM CDT Message Pt updated at office visit-елена Verified Results *Urine dip auto In Office [id number] 02:45PM Sergo Mackey Test Name Result Flag Reference Color Yellow Clarity Clear Glucose Negative Bilirubin Negative Ketones Negative Specific [place] 1.015 Blood Negative pH 5.5 5.0 - 7.0 Protein Negative Urobilinogen 0.2 E.U./dL Nitrites neg Leukocytes Negative Plan Bipolar mood disorder, Panic disorder without agoraphobia ?? Psychiatry Referral. Outpatient For: Panic disorder without agoraphobia For: Bipolar mood disorder Status: Hold For - Manual Activation Requested for: 16Jun2016 of Visits Requested : 99 Urinary frequency ?? *Urine dip auto In Office; Status:Complete; Done: 30Jun2016 02:45PM Discussion/Summary Urine entirely normal. Signatures Electronically signed by : Eloisa Wolfe R.N.; Jul 02 2016 9:06AM AGRICULTURE PROFESSOR (Author) * Sergo Mackey MD - 06/30/2016 2:00 PM CDT Reason For Visit Reason For Visit: Acute Visit Chief Complaint Patient c/o flushing and elevated heart rate. History of Present Illness PHQ-9 Depression Questionnaire: Over the past 2 weeks, how often have you been bothered by the following problems? 1.) Little interest or pleasure in doing things? Half the days or more. 2.) Feeling down, depressed or hopeless? Half the days or more. 3.) Trouble falling asleep or sleeping too much? Half the days or more. 4.) Feeling tired or having little energy? Nearly every day. 5.) Poor appetite or overeating? Nearly every day. 6.) Feeling bad about yourself, or that you are a failure, or have let yourself or your family down? Nearly every day. 7.) Trouble concentrating on things, such as reading a newspaper or watching television? Half the days or more. 8.) Moving or speaking so slowly that other people could have noticed, or the opposite, moving or speaking faster than usual? Nearly every day. 9.) Thoughts that you would be off or of hurting yourself in some way? Not at all. TOTAL SCORE: , severity of depression is severe. How difficult have these problems made it for you to do your work, take care of things at home, or get along with people? Somewhat difficult. HPI Free Text: Here complaining of palpitations along with flushing. Her palpitations tend to happen at a certain time of the night and that will last for maybe a couple of hours. It does not occur during the daytime. She reports the Klonopin is not working as well anymore. She is yet to obtain her old medicine list. She was told it will take a few weeks to process. She is also complains that she has been urinating more frequently recently and has been having a lot of diarrhea. She is requesting for a urine test. Review of Systems See HPI for pertinent positives. Active Problems 1. Bipolar mood disorder (296.80) (F31.9) 2. Chronic diarrhea (787.91) (K52.9) 3. Hypertension (401.9) (I10) 4. Neck pain (723.1) (M54.2) 5. Palpitations (785.1) (R00.2) 6. Panic disorder without agoraphobia (300.01) (F41.0) Past Medical History Patient indicats no significant [...] DAILY NEEDED ; Therapy: 10Apr2014 to (Last Rx:[id number]) Ordered Rx By: Sergo Mackey; Dispense: 0 Days ; #:90 Tablet; Refill: 0; For: Palpitations; JULIANA = N; Print Rx; Last Updated By: Fariba Garvey; 06/16/2016 3:06:43 PM Allergies 1. 12 Hour Decongestant TB12 Recorded By: Shirley Zhang; 04/10/2014 3:10:36 PM Vitals Recorded: [id number] 02:09PM Heart Rate 120 Respiration 18 Systolic 140 Diastolic 86 O2 Saturation 98 Height 5 ft 8 in Weight 274 lb BMI Calculated 41.66 BSA Calculated 2.34 Physical Exam Constitutional General appearance: No acute [...] No lymphadenopathy. Musculoskeletal Gait and station: Normal. Psychiatric Orientation to person, place, and time: Normal. Mood and affect: Normal. Results/Data *Urine dip auto In Office 30Jun2016 02:45PM Sergo Mackey Test Name Result Flag Reference Color Yellow Clarity Clear Glucose Negative Bilirubin Negative Ketones Negative Specific [place] 1.015 Blood Negative pH 5.5 5.0 - 7.0 Protein Negative Urobilinogen 0.2 E.U./dL Nitrites neg Leukocytes Negative Assessment 1. Urinary frequency (788.41) (R35.0) 2. Bipolar mood disorder (296.80) (F31.9) 3. Palpitations (785.1) (R00.2) 4. Flushing (782.62) (R23.2) 5. Chronic diarrhea (787.91) (K52.9) Plan Bipolar mood disorder, Panic disorder without agoraphobia 1. Psychiatry Referral. Outpatient For: Panic disorder without agoraphobia For: Bipolar mood disorder Status: Hold For - Manual Activation Requested for: 16Jun2016 Ordered; For: Bipolar mood disorder, Panic disorder without agoraphobia; Ordered By: Sergo Mackey Performed: Due: 30Jun2016; Last Updated By: Yasmine Fitch; 06/29/2016 1:55:40 PM pt has information on the list of counselors lm to discuss options--nk of Visits Requested : 99 Urinary frequency 2. *Urine dip auto In Office; Status:Resulted - Requires Verification; Done: 30Jun2016 02:45PM Performed:In Office; Last Updated By:Angela Lal; 06/30/2016 2:45:51 PM;Ordered; For:Urinary frequency; Ordered By:Sergo Mackey; She will CPM as we await a record of her old failed therapies. We will be ordering some tests to look into her recurring symptom complex. Signatures Electronically signed by : Sergo Mackey M.D.; Jul 02 2016 5:41AM AGRICULTURE PROFESSOR (Author) documented in this encounter Plan of Treatment Not on file documented as of this encounter Procedures Procedure Name Priority Date/Time Associated Diagnosis Comments URINALYSIS AUTO DIP Routine 06/30/2016 2 :45 PM CDT documented in this encounter Results * URINALYSIS AUTO DIP (06/30/2016 2:45 PM CDT) COLOR (U) Yellow [facility] T O EPIC CONVERSION TRANSPARENCY Clear [facility] P TO EPIC CONVERSION GLUCOSE Negative [facility] T O EPIC CONVERSION BILIRUBIN (U) Negative [facility] UP TO EPIC CONVERSION KETONE (U) Negative [facility] TO EPIC CONVERSION SPECIFIC GRAVITY (U) 1.015 [facility] TO EPIC CONVERSION BLOOD (U) Negative [facility] T O EPIC CONVERSION PH (U) 5.5 5.0 - 7.0 [facility] T O EPIC CONVERSION PROTEIN (ELP) (U) Negative [facility] TO EPIC CONVERSION UROBILINOGEN 0.2 E.U./dL [facility] OUP TO EPIC CONVERSION NITRITES neg [facility] T O EPIC CONVERSION LEUKOCYTES (U) Negative [facility] OUP TO EPIC CONVERSION 06/30/2016 2:45 PM CDT 06/30/2016 2:45 PM CDT Narrative [facility] TO EPIC CONVERSION - 06/30/2016 2:45 PM CDT Result Communication: Call patient with results us Sergo Mackey MD URINE ORDERABLES Final Result [facility] TO EPIC CONVERSION documented in this encounter Visit Diagnoses Not on filedocumented in this encounter Care Teams Serology Teacher Relationship Specialty Start Date End Date Sergo Mackey MD PCP - General 04/07/17 Sergo Mackey MD PCP - General 08/05/16 04/06/17 Sergo Mackey MD PCP - General 07/16/16 08/04/16 Sergo Mackey MD PCP - General 07/14/16 07/15/16 Sergo Mackey MD PCP - General 06/16/16 07/13/16 documented as of this encounter
--- OUTSIDE RECORDS SUMMARY | 2024-11-04 23:52 | XMS_ITS | Encounter Summary ---
Author Organization [facility] Address [address] [place] [address]. [place] [address] [place] [address] Care Team Providers Care Sound Effects Supervisor Name Role Phone Sergo Mackey MD Primary Care Provider Sergo Duncan MD Primary Care Provider Julian short Encounter Details Date Type Department Care Team (Late st Contact Info) Description 08/05/2016 Abstract [facility] Family & Internal Medicine - [place] [id number] [place] [address] Nellie Moy FNP [address] [place] [address] Social History Tobacco Use Types Packs/Day Years Used Date Smoking Tobacco: Never Assessed Comments Unknown Sex and Gender Information Value Date Recorded Sex Assigned at Not on file Legal Sex Female 5:18 PM CDT Gender Identity Not on file Sexual Orientation Not on file documented as of this encounter Last Filed Vital Signs Vital Sign Reading Time Taken Comments Blood Pressure 100/72 08/05/2016 11:27 AM CDT Pulse 84 08/05/2016 11:27 AM CDT Temperature - - Respiratory Rate - - Oxygen Saturation - - Inhaled Oxygen Concentration - - Weight 113.9 kg (251 lb) 08/05/2016 11:27 AM CDT Height 172.7 cm (5' 8 ) 08/05/2016 11:27 AM CDT Body Mass Index 38.16 08/05/2016 11:27 AM CDT documented in this encounter Progress Notes * SEAN Yanes - 08/05/2016 11:00 AM CDT Reason For Visit Hospital Follow-Up Chief Complaint Follow up after hospitalization for mood disorder. History of Present Illness Cold Symptoms: Alia Fabian presents with complaints of sudden onset of constant episodes of moderate cold symptoms. Episodes started about 1 week ago. She is currently experiencing cold symptoms. Her symptoms are possibly caused by community exposure to URI. Symptoms are worsening. Previous Evaluation: Alia states that she was hospitalized at [facility] and for the last week she has had nausea, vomiting, diarrhea, sweating, bilateral ear pain, cough, and low grade fever. She reports that when she was hospitalized, many of the other patients were sick also. She has been able to keep popsicles down. Associated symptoms include post nasal drainage, productive cough, ear pain, swollen lymph nodes, fatigue, nausea, vomiting, diarrhea, fever and chills, but no sneezing, no nasal congestion, no runnynose, no scratchy throat, no sore throat, no hoarseness, no dry cough, no facial pressure, no facial pain, no headache, no plugged ear(s), no wheezing and no shortness of breath. Review of Systems See HPI for pertinent positives. Constitutional: feeling poorly. Active Problems 1. Abnormal urine finding (791.9) (R82.90) 2. Bipolar mood disorder (296.80) (F31.9) 3. Chronic diarrhea (787.91) (K52.9) 4. Flushing (782.62) (R23.2) 5. Hypertension (401.9) (I10) 6. Leukocytes in urine (791.7) (R82.99) 7. Neck pain (723.1) (M54.2) 8. Palpitations (785.1) (R00.2) 9. Panic disorder without agoraphobia (300.01) (F41.0) 10. Urinary frequency (788.41) (R35.0) Surgical History 1. History of Oral Surgery Tooth Extraction Family History 1. Family history of diabetes mellitus (V18.0) (Z83.3) 2. Family history of hypertension (V17.49) (Z82.49) Social History ?? Never a smoker ?? Single Current Meds 1. TraZODone HCl - 100 MG Oral Tablet; TK 1 T PO QHS; Therapy: 01Aug2016 to Recorded Allergies 1. 12 Hour Decongestant TB12 Vitals Recorded: 05Aug2016 11:27AM Heart Rate 84 Respiration 16 Systolic 100 Diastolic 72 O2 Saturation 99 Height 5 ft 8 in Weight 251 lb BMI Calculated 38.16 BSA Calculated 2.25 Physical Exam Constitutional General appearance: Abnormal. acutely ill, disheveled clothing, appears older than stated age and patient was observed to be morbidly obese, but well developed and well nourished. Eyes Conjunctiva and lids: No swelling, erythema or discharge. Ears, Nose, Mouth, and Throat External inspection of ears and nose: Normal. Otoscopic examination: Abnormal. The right tympanic membrane was red and was bulging. The left tympanic membrane was red and was bulging. The right external canal was tender and was erythematous. Theleft external canal was tender and was erythematous. Oropharynx: Abnormal. Oral mucosa was moist, but was normal. The palate examination showed no abnormalities. The tongue was normal. There was erythema of both tonsils. The posterior pharynx was erythematous. Pulmonary Respiratory effort: No increased work of breathing or signs of respiratory distress. Auscultation of lungs: Clear to auscultation. Cardiovascular Palpation of heart: Normal PMI, no thrills. Auscultation of heart: Normal rate and rhythm, normal S1 and S2, without murmurs. Examination of extremities for edema and/or varicosities: Normal. Abdomen Abdomen: Non-tender, no masses. Liver and spleen: No hepatomegaly or splenomegaly. Lymphatic Palpation of lymph nodes in neck: Abnormal. bilateral anterior cervical node enlargement. Musculoskeletal Gait and station: Normal. Digits and nails: Normal without clubbing or cyanosis. Skin Skin and subcutaneous tissue: Normal without rashes or lesions. Psychiatric Orientation to person, place, and time: Normal. Mood and affect: Abnormal. Mood and Affect: appropriate mood and flat. Counseling The patient was counseled regarding instructions for management, risk factor reductions, prognosis,patient and family education, impressions, risks and benefits of treatment options and importance of compliance with treatment. total time of encounter was 15 minutes and 12 minutes was spent counseling. Assessment 1. Bilateral otitis media (382.9) (H66.93) 2. Bilateral otitis externa (380.10) (H60.93) 3. Antibiotic-induced yeast infection (112.9) (B37.9,T36.95XA) Plan Antibiotic-induced yeast infection 1. Fluconazole 150 MG Oral Tablet; TAKE 1 TABLET Once PRN onset of symptoms may repeat dose in 72 hours for continued symptoms Rx By: Nellie Moy; Dispense: 2 Days ; #:2 Tablet; Refill: 0; For: Antibiotic-induced yeast infection; JULIANA = N; Verified Transmission to [facility] [address]; Last Updated By: Fixed - Parking Tickets; 08/05/2016 11:47:13 AM Bilateral otitis externa, Bilateral otitis media 2. [id number] 3.5-90232-7 Otic Solution; INSTILL 3 DROPS IN BOTH EARS 3-4 TIMES DAILY Rx By: Nellie Moy; Dispense: 0 Days ; #:1 X 10 ML Bottle; Refill: 0; For: Bilateral otitis externa, Bilateral otitis media; JULIANA = N; Verified Transmission to [facility] [address]; Last Updated By: Fixed - Parking Tickets; 08/05/2016 11:47:12 AM 3. Recheck if symptoms do not improve in 2-3 days Outpatient Follow-up Status: Active Requested for: 05Aug2016 Ordered; For: Bilateral otitis externa, Bilateral otitis media; Ordered By: Nellie Moy Performed: Due: 19Aug2016 Bilateral otitis externa, Bilateral otitis media, Vomiting and diarrhea 4. Call if: The symptoms are not better in 7 days.; Status:Complete; Done: 05Aug2016 01:38PM Ordered; For:Bilateral otitis externa, Bilateral otitis media, Vomiting and diarrhea; Ordered By:Nellie Moy; Bilateral otitis media 5. Amoxicillin-Pot Clavulanate 875-125 MG Oral Tablet; TAKE 1 TABLET TWICE DAILY UNTIL FINISHED Rx By: Nellie Moy; Dispense: 10 Days ; #:20 Tablet; Refill: 0; For: Bilateral otitis media; JULIANA= N; Verified Transmission to [facility] [address]; Last Updated By: Fixed - Parking Tickets; 08/05/2016 11:47:13 AM Bipolar mood disorder, Panic disorder without agoraphobia 6. HydrOXYzine HCl - 50 MG Oral Tablet; TAKE 1 TABLET 3 TIMES DAILY NEEDED FOR ITCHING Rx By: Nellie Moy; Dispense: 10 Days ; #:30 Tablet; Refill: 0; For: Bipolar mood disorder, Panic disorder without agoraphobia; JULIANA = N; Record; Last Updated By: Eloisa Wolfe; 08/05/2016 11:28:49 AM 7. PARoxetine HCl - 40 MG Oral Tablet; Take one tablet daily Rx By: Nellie Moy; Dispense: 30 Days ; #:30 X 30 Tablet Bottle; Refill: 3; For: Bipolar mood disorder, Panic disorder without agoraphobia; JULIANA = N; Record; Last Updated By: Eloisa Wolfe; 08/05/201611:28:49 AM Palpitations 8. Metoprolol Tartrate 25 MG Oral Tablet; TAKE 1 TABLET TWICE DAILY Rx By: Nellie Moy; Dispense: 30 Days ; #:60 Tablet; Refill: 5; For: Palpitations; JULIANA = N; Record; Last Updated By: Eloisa Wolfe; 08/05/2016 11:28:49 AM Vomiting and diarrhea 9. CBC W Differential; Status:In Progress - Specimen/Data Collected; Done: 05Aug2016 Perform:[facility]; Due:04Sep2016; Last Updated By:Angela Lal; 08/05/2016 1:07:55 PM;Ordered; For:Vomiting and diarrhea; Ordered By:Nellie Moy; 10. Compr Metabolic Prof ( CMP ); Status:In Progress - Specimen/Data Collected; Done: 05Aug2016 Perform:[facility]; Due:04Sep2016; Last Updated By:Angela Lal; 08/05/2016 1:07:55 PM;Ordered; For:Vomiting and diarrhea; Ordered By:Nellie Moy; 11. Drink plenty of fluids.; Status:Complete; Done: 05Aug2016 01:38PM Ordered; For:Vomiting and diarrhea; Ordered By:Nellie Moy; We will call you with your lab results Signatures Electronically signed by : Nellie Moy, ; Aug 05 2016 1:38PM BAG MACHINE OPERATOR (Author) documented in this encounter Plan of Treatment Not on file documented as of this encounter Procedures Procedure Name Priority Date/Time Associated Diagnosis Comments COMPREHENSIVE METABOLIC PANEL Routine 08/05/2016 1:07 PM CDT CBC W/DIFF AUTOMATED Routine 08/05/2016 1:07 PM CDT documented in this encounter Results * (ABNORMAL) COMPREHENSIVE METABOLIC PANEL (08/05/2016 1:07 PM CDT) Pathologist [facility] SODIUM S/P/B 139 136 - 145 mmol/L [facility] TO EPIC CONVERSION POTASSIUM S/P/B 4.4 3.5 - 5.1 mmol/L [facility] TO EPIC CONVERSION CHLORIDE S/P/B 99 98 - 107 mmol/L [facility] TO EPIC CONVERSION CO2 26 22 - 29 mmol/L [facility] TO EPIC CONVERSION ANION GAP 18 8 - 20 [facility] T O EPIC CONVERSION BUN 7(L) 8 - 23 mg/dL [facility] TO EPIC CONVERSION CREATININE S/P/B 0.79 0.60 - 1.10 mg/dL [facility] TO EPIC CONVERSION GFR ESTIMATE >60 >60 mL/min/1 .73m'2 [facility] TO EPIC CONVERSION EGFR AFR. AMER. >60 NOTE: eGFR is not calculated for patients <18 years of age. This is an estimated GFR (CKD EPI) and should not be used for calculating drug doses. >60 mL/min/1 .73m'2 [facility] TO EPIC CONVERSION GLUCOSE 97 70 - 99 mg/dL [facility] TO EPIC CONVERSION CALCIUM S/P/B 10.0 8.6 - 10.2 mg/dL [facility] TO EPIC CONVERSION BILIRUBIN TOTAL S/P/B 0.6 0.2 - 1.2 mg/dL [facility] TO EPIC CONVERSION AST 25 0 - 32 U/L [facility] TO EPIC CONVERSION ALT 22 0 - 33 U/L [facility] TO EPIC CONVERSION ALKALINE PHOSPHATASE S/P/B 60 35 - 104 U/L [facility] TO EPIC CONVERSION TOTAL PROTEIN S/P/B 7.4 6.4 - 8.3 g/dL [facility] TO EPIC CONVERSION ALBUMIN S/P/B 4.6 3.5 - 5.2 g/dL [facility] TO EPIC CONVERSION GLOBULIN 2.8 2.3 - 3.6 g/dL [facility] TO EPIC CONVERSION A/G RATIO 1.6 1.0 - 2.0 [facility] TO EPIC CONVERSION 08/05/2016 1:07 PM CDT 08/05/2016 1:07 PM CDT Narrative [facility] TO EPIC CONVERSION - 08/05/2016 8:27 PM CDT Result Communication: No patient communication needed at this time Nellie Moy PRINTING SUPERVISOR LABORATORY Final Result [facility] TO EPIC CONVERSION * (ABNORMAL) CBC W/DIFF AUTOMATED (08/05/2016 1:07 PM CDT) WBC 8.0 4.8 - 10.8 X10'3/uL [facility] TO EPIC CONVERSION RBC 4.72 4.20 - 5.40 X10'6/uL [facility] TO EPIC CONVERSION HGB 13.9 12.0 - 16.0 g/dL [facility] TO EPIC CONVERSION HCT 41.9 38.0 - 48.0 % [facility] TO EPIC CONVERSION MCV 88.8 81.0 - 99.0 fL [facility] TO EPIC CONVERSION MCH 29.4 27.0 - 31.0 pg [facility] TO EPIC CONVERSION MCHC 33.2 32.0 - 36.0 g/dL [facility] TO EPIC CONVERSION RDW 12.8 11.5 - 14.5 % [facility] TO EPIC CONVERSION PLT 342 130 - 400 X10'3/uL [facility] TO EPIC CONVERSION GLUCOSE 10.4 9.3 - 12.2 fL [facility] TO EPIC CONVERSION BASOPHILS % 0.6 0.0 - 1.0 % [facility] TO EPIC CONVERSION EOSINOPHILS % 3.0 1.0 - 3.0 % [facility] TO EPIC CONVERSION NEUTROPHILS % 67.0(H) 43.0 - 65.0 % [facility] TO EPIC CONVERSION LYMPHOCYTES % 22.6 20.0 - 46.0 % [facility] TO EPIC CONVERSION IMMATURE GRANS % 0.2 0.0 - 1.0 % [facility] TO EPIC CONVERSION DIFFERENTIAL TYPE AUTOMATED [facility] TO EPIC CONVERSION MONOCYTES 6.6 5.0 - 12.0 % [facility] TO EPIC CONVERSION 08/05/2016 1:07 PM CDT 08/05/2016 1:07 PM CDT Narrative [facility] TO EPIC CONVERSION - 08/05/2016 8:31 PM CDT Result Communication: No patient communication needed at this time Nellie Chavarriarinku [facility] Final Result [facility] TO EPIC CONVERSION documented in this encounter Visit Diagnoses Not on filedocumented in this encounter Care Teams Sound Effects Supervisor Relationship Specialty Start Date End Date Sergo Mackey MD PCP - General 04/07/17 Sergo Mackey MD PCP - General 08/05/16 04/06/17 documented as of this encounter
--- OUTSIDE RECORDS SUMMARY | 2024-11-04 23:52 | XMS_ITS | Encounter Summary ---
Author Organization [facility] Address [facility] [facility] [place] [address] [place] [address] Care Team Providers Care Business Leader Name Role Phone Sergo Mackey MD Primary Care Provider Sergo Duncan MD Primary Care Provider Sergo Duncan MD Primary Care Provider Julian short Encounter Details Date Type Department Care Team (Latest Contact Info) Description 07/24/2016 Abstract [facility] Social History Tobacco Use Types Packs/Day Years Used Date Smoking Tobacco: Never Assessed Comments Unknown Sex and Gender Information Value Date Recorded Sex Assigned at Not on file Legal Sex Female 5:18 PM CDT Gender Identity Not on file Sexual Orientation Not on file documented as of this encounter Progress Notes * Sergo Mackey MD - 07/24/2016 2:50 PM CDT Message Pt updated and will see MD tomorrow. Verified Results Ur Fract Catecholamines 24 Hr [id number] 03:35PM Sergo Mackey Test Name Result Flag Reference Urine Total Volume 2525 ML Urine Epinephrine REPORT Results are below the reportable range for this analyte, which is 2.0 mcg/L. Urine Norepinephrine 51 Reference range: 15 to 100 Unit: mcg/24 h Urine Epineph + Norepineph 51 Reference range: 26 to 121 Unit: mcg/24 h Urine Dopamine 379 Reference range: 52 to 480 Unit: mcg/24 h Test Performed by [facility], [address] [place] [address] Aaron Kennedy M.D., Ph.D., Director of Laboratories , [facility] [id number] Discussion/Summary The detailed analysis of hormones in her 24 hour urine collection were all in normal range. At thispoint, we would want to focus on her psychiatric issues as a possible cause for her physical symptoms. I reviewed her extensive medicine history and found a less than 29 medicines she has used and failed in the past. Is she finding her current lorazepam by itself to be helpful? I will be hard pressed to come up with any new medicines or combination of medicines that may be helpful. If agreeable, I would need to try a have her see a psychiatrist again. Signatures Electronically signed by : Eloisa Wolfe R.N.; Aug 03 2016 3:27PM ZMT OPERATOR (Author) documented in this encounter Plan of Treatment Not on file documented as of this encounter Visit Diagnoses Not on filedocumented in this encounter Care Teams Business Leader Relationship Specialty Start Date End Date Sergo Mackey MD PCP - General 04/07/17 Sergo Mackey MD PCP - General 08/05/16 04/06/17 Sergo Mackey MD PCP - General 07/16/16 08/04/16 documented as of this encounter
--- OUTSIDE RECORDS SUMMARY | 2024-11-04 23:52 | XMS_ITS | Encounter Summary ---
Author Organization [facility] Address [facility]6 [facility]. [place], [place] [address] [place] [address] Care Team Providers Care Teaching Aide Name Role Phone Sergo Mackey MD Primary Care Provider Sergo Duncan MD Primary Care Provider Sergo Duncan MD Primary Care Provider Sergo Duncan MD Primary Care Provider Sergo Duncan MD Primary Care Provider Julian short Encounter Details Date Type Department Care Team (Latest Contact Info) Description 06/16/2016 Abstract [facility] Medical Group Sergo Mackey MD Social History [...] Associated Diagnosis Comments COMPREHENSIVE METABOLIC PANEL Routine 06/16/2016 3:16 PM CDT CBC W/DIFF AUTOMATED Routine 06/16/2016 3:16 PM CDT THYROID STIM HORMONE TSH Routine 06/16/2016 3:16 PM CDT documented in this encounter Results * THYROID STIM HORMONE, TSH (06/16/2016 3:16 PM CDT) TSH 1.56 0.27 - 4.20 mIU/mL [facility] TO [facility] CONVERSION 06/16/2016 3:16 PM CDT 06/16/2016 3:16 PM CDT Narrative [facility] CONVERSION - 06/16/2016 8:22 PM CDT Result Communication: Call patient with results us Sergo Mackey MD LABORATORY Final Result [facility] TO [facility] CONVERSION * (ABNORMAL) CBC W/DIFF AUTOMATED (06/16/2016 3:16 PM CDT) Pathologist [facility] WBC 8.9 4.8 - 10.8 X10'3/uL [facility] TO [facility] CONVERSION RBC 4.95 4.20 - 5.40 X10'6/uL [facility] TO [facility] CONVERSION HGB 14.0 12.0 - 16.0 g/dL [facility] TO [facility]IC CONVERSION HCT 44.5 38.0 - 48.0 % [facility] CONVERSION MCV 89.9 81.0 - 99.0 fL [facility] TO EPIC CONVERSION MCH 28.3 27.0 - 31.0 pg [facility] TO EPIC CONVERSION MCHC 31.5(L) 32.0 - 36.0 g/dL [facility] TO EPIC CONVERSION RDW 13.1 11.5 - 14.5 % [facility] TO [facility]IC CONVERSION PLT 324 130 - 400 X10'3/uL [facility] TO [facility] CONVERSION GLUCOSE 10.3 9.3 - 12.2 fL [facility] TO EPIC CONVERSION BASOPHILS % 0.7 0.0 - 1.0 % [facility] TO EPIC CONVERSION EOSINOPHILS % 1.6 1.0 - 3.0 % [facility] TO [facility] CONVERSION NEUTROPHILS % 67.0(H) 43.0 - 65.0 % [facility] TO [facility] CONVERSION LYMPHOCYTES % 26.0 20.0 - 46.0 % [facility] TO [facility] CONVERSION IMMATURE GRANS % 0.2 0.0 - 1.0 % [facility] TO [facility] CONVERSION DIFFERENTIAL TYPE AUTOMATED [facility] TO [facility] CONVERSION MONOCYTES 4.5(L) 5.0 - 12.0 % [facility] CONVERSION 06/16/2016 3:16 PM CDT 06/16/2016 3:16 PM CDT Narrative [facility] TO [facility] CONVERSION - 06/16/2016 7:56 PM CDT Result Communication: No patient communication needed at this time us Sergo Mackey MD LABORATORY Final Result [facility] TO [facility] CONVERSION * COMPREHENSIVE METABOLIC PANEL (06/16/2016 3:16 PM CDT) SODIUM S/P/B 140 136 - 145 mmol/L [facility] TO [facility]IC CONVERSION POTASSIUM S/P/B 4.5 3.5 - 5.1 mmol/L [facility] TO [facility]IC CONVERSION CHLORIDE S/P/B 101 98 - 107 mmol/L [facility] TO [facility]IC CONVERSION CO2 25 22 - 29 mmol/L [facility] TO EPIC CONVERSION ANION GAP 19 8 - 20 [facility] T O EPIC CONVERSION BUN 10 8 - 23 mg/dL [facility] TO EPIC CONVERSION CREATININE S/P/B 0.65 0.60 - 1.10 mg/dL [facility] TO [facility]IC CONVERSION GFR ESTIMATE >60 >60 mL/min/1 .73m'2 [facility] TO EPIC CONVERSION EGFR AFR. AMER. >60 NOTE: eGFR is not calculated for patients <18 years of age. This is an estimated GFR (CKD EPI) and should not be used for calculating drug doses. >60 mL/min/1 .73m'2 [facility] TO EPIC CONVERSION GLUCOSE 96 70 - 99 mg/dL [facility] TO [facility]IC CONVERSION CALCIUM S/P/B 9.8 8.6 - 10.2 mg/dL [facility] TO EPIC CONVERSION BILIRUBIN TOTAL S/P/B 0.6 0.2 - 1.2 mg/dL [facility] TO [facility] CONVERSION AST 18 0 - 32 U/L [facility] TO [facility] CONVERSION ALT 19 0 - 33 U/L [facility] TO [facility]IC CONVERSION ALKALINE PHOSPHATASE S/P/B 74 35 - 104 U/L [facility] TO EPIC CONVERSION TOTAL PROTEIN S/P/B 7.5 6.4 - 8.3 g/dL [facility] TO EPIC CONVERSION ALBUMIN S/P/B 4.8 3.5 - 5.2 g/dL [facility] TO EPIC CONVERSION GLOBULIN 2.7 2.3 - 3.6 g/dL [facility] TO EPIC CONVERSION A/G RATIO 1.8 1.0 - 2.0 [facility] TO EPIC CONVERSION 06/16/2016 3:16 PM CDT 06/16/2016 3:16 PM CDT Narrative [facility] TO EPIC CONVERSION - 06/16/2016 8:22 PM CDT Result Communication: No patient communication needed at this time us Sergo Mackey MD LABORATORY Final Result [facility] TO [facility] CONVERSION documented in this encounter Visit Diagnoses Not on filedocumented in this encounter Care Teams Teaching Aide Relationship Specialty Start Date End Date Sergo Mackey MD PCP - General 04/07/17 Sergo Mackey MD PCP - General 08/05/16 04/06/17 Sergo Mackey MD PCP - General 07/16/16 08/04/16 Sergo Mackey MD PCP - General 07/14/16 07/15/16 Sergo Mackey MD PCP - General 06/16/16 07/13/16 documented as of this encounter
--- OUTSIDE RECORDS SUMMARY | 2024-11-04 23:52 | XMS_ITS | Encounter Summary ---
Author Organization [facility] Address [facility]6 [facility]. [place], [place] [address] [place] [address] Care Team Providers Care Export Sales Assistant Name Role Phone Sergo Mackey MD Primary Care Provider Sergo Duncan MD Primary Care Provider Sergo Duncan MD Primary Care Provider Sergo Duncan MD Primary Care Provider Julian labSergo Stratton MD Primary Care Provider [facility] Encounter Details Date Type Department Care Team (Latest Contact Info) Description 06/28/[address] [facility] Medical Group Social History Tobacco Use Types [...] on filedocumented in this encounter Care Teams Export Sales Assistant Relationship Specialty Start Date End Date Sergo Mackey MD PCP - General 04/07/17 Sergo Mackey MD PCP - General 08/05/16 04/06/17 Sergo Mackey MD PCP - General 07/16/16 08/04/16 Sergo Mackey MD PCP - General 07/14/16 07/15/16 Sergo Mackey MD PCP - General 06/16/16 07/13/16 documented as of this encounter
--- OUTSIDE RECORDS SUMMARY | 2024-11-04 23:52 | XMS_ITS | Encounter Summary ---
Author Organization [facility] Address [address] [place] [address]. [place], [place] [address] [place] [address] Care Team Providers Care Ase Certified Technician Name Role Phone Sergo Mackey MD Primary Care Provider Sergo Duncan MD Primary Care Provider Julian short Encounter Details Date Type Department Care Team (Latest Contact Info) Description 08/26/2016 Abstract [facility] Medical Group Social History Tobacco Use Types [...] on filedocumented in this encounter Care Teams Ase Certified Technician Relationship Specialty Start Date End Date Sergo Mackey MD PCP - General 04/07/17 Sergo Mackey MD PCP - General 08/05/16 04/06/17 documented as of this encounter
--- OUTSIDE RECORDS SUMMARY | 2024-11-04 23:52 | XMS_ITS | Encounter Summary ---
Author Organization [facility] Address [address] [place] [address]. [place], [place] [address] [place] [address] Care Team Providers Care Building Construction Engineer Name Role Phone Sergo Mackey MD Primary Care Provider Sergo Duncan MD Primary Care Provider Sergo Duncan MD Primary Care Provider Sergo Duncan MD Primary Care Provider Sergo Duncan MD Primary Care Provider Sagrariovaeliceo short Encounter Details Date Type Department Care Team (Latest Contact Info) Description 06/18/2016 Abstract [facility] Medical Group Social History Tobacco Use Types Packs/Day Years Used Date Smoking Tobacco: Never Assessed Comments Unknown Sex and Gender Information Value Date Recorded Sex Assigned at Not on file Legal Sex Female 5:18 PM CDT Gender Identity Not on file Sexual Orientation Not on file documented as of this encounter Progress Notes * James Pineda Md, MD - 06/18/2016 3:53 PM CDT Message Recorded as Task Date: 06/18/2016 02:53 PM, Created By: Juana Sanders Task Name: Call Back Assigned To: [facility] Team Narendra Regarding Patient: Alia Fabian, Status: In Progress Comment: Juana Sanders - 18 Jun 2016 2:53 PM TASK CREATED Caller: Self; Results Inquiry; patient called regarding her lab results, she would like someone to call her. She states she went to the ER after being seen here and was diagnosed with a UTI. Patient phone # [phone] Eloisa Wolfe - 18 Jun 2016 3:51 PM TASK IN PROGRESS Message: Pt updated-елена Signatures Electronically signed by : Eloisa Wolfe R.N.; Jun 18 2016 3:54PM CINDER BLOCK MAKER (Author) documented in this encounter Plan of Treatment Not on file documented as of this encounter Visit Diagnoses Not on filedocumented in this encounter Care Teams Building Construction Engineer Relationship Specialty Start Date End Date Sergo Mackey MD PCP - General 04/07/17 Sergo Mackey MD PCP - General 08/05/16 04/06/17 Sergo Mackey MD PCP - General 07/16/16 08/04/16 Sergo Mackey MD PCP - General 07/14/16 07/15/16 Sergo Mackey MD PCP - General 06/16/16 07/13/16 documented as of this encounter
--- OUTSIDE RECORDS SUMMARY | 2024-11-04 23:52 | XMS_ITS | Encounter Summary ---
Author Organization [facility] Address [address] [place] [address]. [place], [place] [address] [place] [address] Care Team Providers Care Thai Masseur Name Role Phone Sergo Mackey MD Primary Care Provider Sergo Duncan MD Primary Care Provider Julian short Encounter Details Date Type Department Care Team (Latest Contact Info) Description 08/18/2016 Abstract [facility] Medical Group Sergo Mackey MD Social [...] on filedocumented in this encounter Care Teams Thai Masseur Relationship Specialty Start Date End Date Sergo Mackey MD PCP - General 04/07/17 Sergo Mackey MD PCP - General 08/05/16 04/06/17 documented as of this encounter
--- OUTSIDE RECORDS SUMMARY | 2024-11-04 23:52 | XMS_ITS | Encounter Summary ---
Author Organization [facility] Address [facility] [facility]. [place], [place] [address] [place] [address] Care Team Providers Care Security Support Analyst Name Role Phone Sergo Mackey MD Primary Care Provider Sergo Duncan MD Primary Care Provider Julian short Encounter Details Date Type Department Care Team (Latest Contact Info) Description 10/22/2016 Abstract [facility] Medical Group Social History Tobacco Use Types Packs/Day Years Used Date Smoking Tobacco: Never Assessed Comments Unknown Sex and Gender Information Value Date Recorded Sex Assigned at Not on file Legal Sex Female 5:18 PM CDT Gender Identity Not on file Sexual Orientation Not on file documented as of this encounter Progress Notes * Generic Conversion MD Ashkan - 10/22/2016 4:26 PM CST Message Recorded as Task Date: 10/22/2016 03:43 PM, Created By: Jaclyn Santana Task Name: Medical Complaint Callback Assigned To: [facility] Narendra Regarding Patient: Alia Fabian, Status: Active Comment: Jaclyn Santana - 22 Oct 2016 3:43 PM TASK CREATED Caller: Self; Medical Complaint; Pt stated that at 09/10/16 she talked to you about speaking with her ob Shanell [phone] at [facility] [place] regarding her being able to use prestrogen with her blood pressure. Asking if this has been done. Sergo Mackey - 22 Oct 2016 5:09 PM TASK REASSIGNED: Previously Assigned To Sergo Mackey Med list has both propranolol and metoprolol included. She should be on one or the other. I'm not sure if Senior Financial Consultant wanted to start a progestin contraceptive but that would be fine if that is the plan. Message: PATIENT NOTIFIED -SJS Signatures Electronically signed by : Fariba Garvey MA; Oct 22 2016 5:17PM HOT MILL SHEARER (Author) documented in this encounter Plan of Treatment Not on file documented as of this encounter Visit Diagnoses Not on filedocumented in this encounter Care Teams Security Support Analyst Relationship Specialty Start Date End Date Sergo Mackey MD PCP - General 04/07/17 Sergo Mackey MD PCP - General 08/05/16 04/06/17 documented as of this encounter
--- OUTSIDE RECORDS SUMMARY | 2024-11-04 23:52 | XMS_ITS | Encounter Summary ---
Author Organization [facility] Address [address] [place] [address]. [place], [place] [address] [place] [address] Care Team Providers Care Sander And Polisher Name Role Phone Sergo Mackey MD Primary Care Provider Sergo Duncan MD Primary Care Provider Julian short Encounter Details Date Type Department Care Team (Latest Contact Info) Description 08/07/2016 Abstract [facility] Medical Group Social [...] filedocumented in this encounter Care Teams Sander And Polisher Relationship Specialty Start Date End Date Sergo Mackey MD PCP - General 04/07/17 Sergo Mackey MD PCP - General 08/05/16 04/06/17 documented as of this encounter
--- OUTSIDE RECORDS SUMMARY | 2024-11-04 23:52 | XMS_ITS | Encounter Summary ---
Author Organization [facility] Address [address] [place] [address]. [place] [address] [place] [address] Care Team Providers Care Carpenter Mate Name Role Phone Sergo Mackey MD Primary Care Provider Sergo Duncan MD Primary Care Provider Sergo Duncan MD Primary Care Provider Julian short Encounter Details Date Type Department Care Team (Late st Contact Info) Description 07/16/2016 Abstract [facility] [place] [address] Sergo Mackey MD Social History [...] HR Routine 07/16/2016 3: 35 PM CDT documented in this encounter Results * METANEPHRINES URINE 24 HR (07/16/2016 3:35 PM CDT) VOLUME (U) 2525 ML 07/17/2016 8:34 AM CDT [facility] METANEPHRINE (U) 24 HR 70 25 - 222 mcg/24 h 07/22/2016 4:46 AM CDT [facility]ST[facility]CHANTI LLY NORMETANEPHRINE (U) 24 HRS 190 40 - 412 mcg/24 h 07/22/2016 4:46 AM CDT [employer] MARY TRUJILLORAMON ANA METANEPHRINES TOTAL (U) 260 94 - 604 mcg/24 h 07/22/2016 4:46 AM CDT Ning LELE PEREZ Comment: A four fold elevation of urinary normetanephrines is extremely likely to be due to a tumor, while a four fold elevation of urinary metanephrines is highly suggestive, but not diagnostic of the tumor. Measurement of plasma Metanephrines and Chromogranin A is recommended for confirmation. Test Performed by [facility], [facility] [place], [address] [place] [address] Aaron Kennedy M.D., Ph.D., Director of Laboratories , [place] [id number] 07/16/2016 3:35 PM CDT 07/17/2016 8:33 AM CDT us Generic Conversion Md JOHNSON URINE ORDERABLES Final Result Performing Organization Address City/[facility]/ZIP Co de Phone Number Ning CASSANDRACHESTERStar [address] [place] [address], [place] [phone] [facility] [address] [place] [address], [place] [phone] * 5-HIAA URINE 24 HR (07/16/2016 3:35 PM CDT) VOLUME (U) 2525 ML 07/17/2016 8:33 AM CDT [facility] 5-HIAA 3.3 <=6.0 mg/24 h 07/22/2016 4:46 AM CDT Ning BESTShannonCHESTER Graves 07/16/2016 3:35 PM CDT 07/17/2016 8:33 AM CDT us Generic Conversion Md JOHNSON URINE ORDERABLES Final Result [facility] [address] [place] [place], [place] , [place] [phone] [facility] [address] [place] [address], [place] [phone] * CATECHOLAMINES URINE 24 HR (07/16/2016 3:35 PM CDT) VOLUME (U) 2525 ML 07/17/2016 8:32 AM CDT [facility] EPINEPHRINE (U) REPORT 6 3:42 AM CDT Ning BEST-RAMON LLY Comment: Results are below the reportable range for this analyte, which is 2.0 mcg/L. NOREPINEPHRINE (U) 51 15 - 100 mcg/24 h 07/22/2016 3:42 AM CDT Ning LELE PEREZ CATECHOLAMINE-URIN E TOTAL 51 26 - 121 mcg/24 h 07/22/2016 3:42 AM CDT Ning LELE PEREZ DOPAMINE (U) 379 52 - 480 mcg/24 h 07/22/2016 3:42 AM CDT Ning LELE PEREZ Comment: Test Performed by Sandie Zelaya [facility], [address] [place] [address] Aaron Kennedy M.D., Ph.D., Director of Laboratories , [facility] [id number] 07/16/2016 3:35 PM CDT 07/17/2016 8:32 AM CDT us Generic Conversion Md JOHNSON URINE ORDERABLES Final Result Performing Organization Address [facility]/ZIP Co de Phone Number [facility] [address] [address] [place], [place] , [place] [phone] [facility] [address] [place] [address], [place] [phone] documented in this encounter Visit Diagnoses Diagnosis Noninfective gastroenteritis and colitis Other and unspecified noninfectious gastroenteritis and colitis documented in this encounter Care Teams Carpenter Mate Relationship Specialty Start Date End Date Sergo Mackey MD PCP - General 04/07/17 Sergo Mackey MD PCP - General 08/05/16 04/06/17 Sergo Mackey MD PCP - General 07/16/16 08/04/16 documented as of this encounter
--- OUTSIDE RECORDS SUMMARY | 2024-11-04 23:52 | XMS_ITS | Encounter Summary ---
Author Organization [facility] Address [facility]6 [facility]. [place], [place] [address] [place] [address] Care Team Providers Care Master Electrician Name Role Phone Sergo Mackey MD Primary Care Provider Sergo Duncan MD Primary Care Provider Sergo Duncan MD Primary Care Provider Julian short Encounter Details Date Type Department Care Team (Latest Contact Info) Description 07/21/2016 Abstract [facility] Medical Group Social History Tobacco Use Types Packs/Day Years Used Date Smoking Tobacco: Never Assessed Comments Unknown Sex and Gender Information Value Date Recorded Sex Assigned at Not on file Legal Sex Female 5:18 PM CDT Gender Identity Not on file Sexual Orientation Not on file documented as of this encounter Miscellaneous Notes * Letter - James Pineda Md, MD - 07/21/2016 4:54 PM CDT Date: Jul 21, 2016 To Whom It May Concern: This is to advise that Alia Fabian has been under my care since April 2014. If you have any questions please feel free to contact my office at [phone]. Sergo Mackey M.D. Electronically signed by:Fariba Garvey MA Jul 21 2016 4:56PM LAST DIPPER Author documented in this encounter Plan of Treatment Not on file documented as of this encounter Visit Diagnoses Not on filedocumented in this encounter Care Teams Master Electrician Relationship Specialty Start Date End Date Sergo Mackey MD PCP - General 04/07/17 Sergo Mackey MD PCP - General 08/05/16 04/06/17 Sergo Mackey MD PCP - General 07/16/16 08/04/16 documented as of this encounter
--- OUTSIDE RECORDS SUMMARY | 2024-11-04 23:52 | XMS_ITS | Encounter Summary ---
Author Organization [facility] Address [facility]6 [facility]. [place], [place] [address] [place] [address] Care Team Providers Care Marketing Administrator Name Role Phone Sergo Mackey MD Primary Care Provider Sergo Duncan MD Primary Care Provider Sergo Duncan MD Primary Care Provider Sergo Duncan MD Primary Care Provider Julian labSergo Stratton MD Primary Care Provider [facility] Encounter Details Date Type Department Care Team (Latest Contact Info) Description 07/03/2016 Abstract [facility] Medical Group Social History Tobacco Use Types [...] on filedocumented in this encounter Care Teams Marketing Administrator Relationship Specialty Start Date End Date Sergo Mackey MD PCP - General 04/07/17 Sergo Mackey MD PCP - General 08/05/16 04/06/17 Sergo Mackey MD PCP - General 07/16/16 08/04/16 Sergo Mackey MD PCP - General 07/14/16 07/15/16 Sergo Mackey MD PCP - General 06/16/16 07/13/16 documented as of this encounter
--- OUTSIDE RECORDS SUMMARY | 2024-11-04 23:52 | XMS_ITS | Encounter Summary ---
Author Organization [facility] Address [facility] [place] [address] [place] [address] Care Team Providers Care Industrial Relations Director Name Role Phone Sergo Mackey MD Primary Care Provider Sergo Duncan MD Primary Care Provider Julian short Encounter Details Date Type Department Care Team (Late st Contact Info) Description 09/10/2016 Abstract [facility] Medical Group Family & Internal Medicine [address] [phone] eSrgo Mackey MD Social History Tobacco Use Types Packs/Day Years Used Date Smoking Tobacco: Never Assessed Comments Unknown Sex and Gender Information Value Date Recorded Sex Assigned at Not on file Legal Sex Female 5:18 PM CDT Gender Identity Not on file Sexual Orientation Not on file documented as of this encounter Last Filed Vital Signs Vital Sign Reading Time Taken Comments Blood Pressure 118/78 09/10/2016 3:03 PM OPERATOR GROUND BASED AIR DEFENCE Pulse 86 09/10/2016 3:03 PM OPERATOR GROUND BASED [employer] DEFENCE Temperature - - Respiratory Rate - - Oxygen Saturation - - Inhaled Oxygen Concentration - - Weight 121.2 kg (267 lb 4 oz) 09/10/2016 3:03 PM OPERATOR GROUND [employer]ED [employer] DEFENCE Height 172.7 cm (5' 8 ) 09/10/2016 3:03 PM OPERATOR GROUND [employer]ED [employer] DEFENCE Body Mass Index 40.64 09/10/2016 3:03 PM OPERATOR GROUND BASED AIR DEFENCE documented in this encounter Progress Notes * Sergo Mackey MD - 09/10/2016 3:00 PM CST Reason For Visit Reason For Visit: Acute Visit History of Present Illness HPI Free Text: Here today with multiple issues. Patient complains that she constantly feels tired and dizzy along with generalized muscle weakness. She is concerned as she is still having headaches along with photosensitivity. She has not yet seen a neurologist for this issue. Labs drawn from last month were entirely normal as well as the CT scan of the head. She complains that she gets a stabbing pain in her hip and knee when she sneezes and her knee locks several times. She takes aexf-qfq-yvojmtu Tylenol and this seems to be helpful. She was hospitalized back in July at [facility] for mental illness. She is trying to find to a psychiatrist that will accept her insurance. [facility] if needed. She also complains of recurring UTI symptoms and would like to see a specialist for further investigation. Review of Systems See HPI for pertinent positives. Active Problems 1. Abdominal cramping, generalized (789.07) (R10.84) 2. Abnormal urine finding (791.9) (R82.90) 3. Antibiotic-induced yeast infection (112.9) (B37.9,T36.95XA) 4. Bilateral otitis externa (380.10) (H60.93) 5. Bilateral otitis media (382.9) (H66.93) 6. Bipolar mood disorder (296.80) (F31.9) 7. Chronic diarrhea (787.91) (K52.9) 8. Elevated blood pressure (401.9) (I10) 9. Flushing (782.62) (R23.2) 10. Hypertension (401.9) (I10) 11. Leukocytes in urine (791.7) (R82.99) 12. Neck pain (723.1) (M54.2) 13. Palpitations (785.1) (R00.2) 14. Panic disorder without agoraphobia (300.01) (F41.0) 15. Urinary frequency (788.41) (R35.0) 16. Vomiting and diarrhea (787.03,787.91) (R11.10,R19.7) Past Medical History Patient indicats no significant past medical history. Surgical History 1. History of Oral Surgery Tooth Extraction Family History Mother 1. Family history of diabetes mellitus (V18.0) (Z83.3) 2. Family history of hypertension (V17.49) (Z82.49) Social History ?? Never a smoker ?? Single Current Meds 1. Chlordiazepoxide-Clidinium 5-2.5 MG Oral Capsule; Take 1 capsule twice daily; Therapy: 13Aug2016 to (Evaluate:12Sep2016); Last Rx:[id number] Ordered Rx By: Nellie Moy; Dispense: 30 Days ; #:60 Capsule; Refill: 0; For: Abdominal cramping, generalized; JULIANA = N; Print Rx 2. Fluconazole 150 MG Oral Tablet; TAKE 1 TABLET Once PRN onset of symptoms may repeat dose in 72 hours for continued symptoms; Therapy: 05Aug2016 to (Evaluate:07Aug2016) Requested for: 05Aug2016; Last Rx:[id number] Ordered Rx By: Nellie Moy; Dispense: 2 Days ; #:2 Tablet; Refill: 0; For: Antibiotic-induced yeast infection; JULIANA = N; Verified Transmission to [facility]; Last Updated By: UpTo; 08/05/2016 11:47:13 AM 3. Metoprolol Tartrate 25 MG Oral Tablet; TAKE 1 TABLET TWICE DAILY; Therapy: 05Aug2016 to (Evaluate:[id number]) Requested for: 13Aug2016; Last Rx:13Aug2016 Ordered Rx By: Nellie Moy; Dispense: 30 Days ; #:60 Tablet; Refill: 5; For: Palpitations; JULIANA = N; Verified Transmission to [facility]; Last Updated By: UpTo; 08/13/2016 3:19:40 PM Allergies 1. 12 Hour Decongestant TB12 Recorded By: Shirley Zhang; 04/10/2014 3:10:36 PM Vitals Recorded: 10Sep2016 03:03PM Heart Rate 86 Respiration 16 Systolic 118 Diastolic 78 O2 Saturation 98 Height 5 ft 8 in Weight 267 lb 4 oz BMI Calculated 40.64 BSA Calculated 2.31 Physical Exam Constitutional General appearance: No acute [...] lymphadenopathy. Musculoskeletal Gait and station: Normal. Psychiatric Mood and affect: Normal. Assessment 1. Hypertension (401.9) (I10) 2. Bipolar mood disorder (296.80) (F31.9) 3. Vitamin d deficiency (268.9) (E55.9) 4. Headache (784.0) (R51) 5. Recurrent urinary tract infection (599.0) (N39.0) Plan Bipolar mood disorder 1. ClonazePAM 1 MG Oral Tablet; Take one tablet three times daily as needed prn Rx By: Sergo Mackey; Dispense: 30 Days ; #:90 Tablet; Refill: 0; For: Bipolar mood disorder; JULIANA = N; Print Rx Headache 2. Neurology Referral Outpatient For: Headache Status: Need Information - Financial Authorization Requested for: 10Sep2016 Ordered; For: Headache; Ordered By: Sergo Mackey Performed: Due: 24Sep2016; Last Updated By: Yasmine Fitch; 09/10/2016 3:41:[address] Gordon Psychiatry Referral Outpatient For: Bipolar mood disorder Status: Need Information - Financial Authorization Requested for: 10Sep2016 Ordered; For: Bipolar mood disorder; Ordered By: Sergo Mackey Performed: Due: 24Sep2016; Last Updated By: Fariba Garvey; 09/11/2016 3:37:24 PM Urology Referral Outpatient For: Recurrent urinary tract infection Status: Need Information - Financial Authorization Requested for: 10Sep2016 Ordered; For: Recurrent urinary tract infection; Ordered By: Sergo Mackey Performed: Due: 24Sep2016; Last Updated By: Yasmine Fitch; 09/11/2016 3:37:[address] [place] Signatures Electronically signed by : Sergo Mackey M.D.; Sep 13 2016 2:48PM OPERATOR GROUND [employer] DEFENCE (Author) documented in this encounter Plan of Treatment Not on file documented as of this encounter Visit Diagnoses Not on filedocumented in this encounter Care Teams Industrial Relations Director Relationship Specialty Start Date End Date Sergo Mackey MD PCP - General 04/07/17 Sergo Mackey MD PCP - General 08/05/16 04/06/17 documented as of this encounter
--- OUTSIDE RECORDS SUMMARY | 2024-11-04 23:52 | XMS_ITS | Encounter Summary ---
Author Organization [facility] Address [facility] access hospital[facility] [place] [address] [place] [address] Care Team Providers Care Sales Specialist Name Role Phone Sergo Mackey MD Primary Care Provider Sergo Duncan MD Primary Care Provider Sergo Duncan MD Primary Care Provider Sergo Duncan MD Primary Care Provider Sergo Duncan MD Primary Care Provider Julian short Encounter Details Date Type Department Care Team (Late st Contact Info) Description 04/10/2014 Abstract [facility] Medical Group Family & Internal Medicine [address] [phone] Sergo Mackey MD Social History [...] Sign Reading Time Taken Comments Blood Pressure 134/82 04/10/2014 3:05 PM CDT Pulse 123 04/10/2014 3:05 PM CDT Temperature - - Respiratory Rate - - Oxygen Saturation - - Inhaled Oxygen Concentration - - Weight 137.9 kg (304 lb) 04/10/2014 3:05 PM CDT Height 172.7 cm (5' 8 ) 04/10/2014 3:05 PM CDT Body Mass Index 46.22 04/10/2014 3:05 PM CDT documented in this encounter Progress Notes * Sergo Mackey MD - 04/10/2014 3:30 PM CDT Reason For Visit Reason For Visit: New Patient Visit Chief Complaint Chief Complaint Free Text: Was seen at [facility] and needed to start control but b/p was too high. History of Present Illness HPI Free Text: Here in the office for the first time saying her blood pressure was high at her OB visit. She also needs a refill of her clonazepam she takes for panic and anxiety.She also complains of chronic diarrhea that is bothering her for the last 2 months. She's also been having palpitations. Review of Systems Complete-Female: Constitutional: no fever and no chills. Cardiovascular: racing heart and palpitations, but no chest pain and no lower extremity edema. Respiratory: no shortness of breath, no cough and no wheezing. Gastrointestinal: abdominal cramps and diarrhea, but no nausea and no vomiting. Active Problems 1. Bipolar disorder (296.80) (F31.9) 2. Hypertension (401.9) (I10) Surgical History 1. History of Oral Surgery Tooth Extraction Family History Mother 1. Family history of diabetes mellitus (V18.0) (Z83.3) 2. Family history of hypertension (V17.49) (Z82.49) Social History ?? Never a smoker ?? Single Current Meds 1. LamoTRIgine 25 MG Oral Tablet; Therapy: (Recorded:10Apr2014) to Recorded Dispense: 0 Days ; #: Sufficient TABS; Refill: 0; JULIANA = N; Record; Last Updated By: Shirley Zhang; 04/10/2014 3:10:36 PM Allergies 1. 12 Hour Decongestant TB12 Recorded By: Shirley Zhang; 04/10/2014 3:10:36 PM Vitals Vital Signs [Data Includes: Current Encounter] Recorded by : Shirley Zhang at 10Apr2014 03:05PM Heart Rate 123 Respiration 18 Systolic 134 Diastolic 82 O2 Saturation 99 Height 5 ft 8 in Weight 304 lb BMI Calculated 46.22 BSA Calculated 2.44 Physical Exam Constitutional General appearance: No acute distress, well appearing and well nourished. Neck Neck: Supple, symmetric, trachea midline, no masses. Thyroid: Normal, no thyromegaly. Pulmonary Respiratory effort: No increased work of breathing or signs of respiratory distress. Auscultation of lungs: Clear to auscultation. Cardiovascular Auscultation of heart: Normal rate and rhythm, normal S1 and S2, no murmurs. Assessment 1. Hypertension (401.9) (I10) 2. Chronic diarrhea (787.91) (K52.9) 3. Bipolar disorder (296.80) (F31.9) 4. Panic disorder without agoraphobia (300.01) (F41.0) 5. Palpitations (785.1) (R00.2) 6. Neck pain (723.1) (M54.2) Plan 1. LC-C difficile Toxins A+B, EIA [id number] Status: Active Requested for: 10Apr2014 Perform: [facility] Due: [id number] Marked Important; Last Updated By: Shirley Zhang; 04/10/2014 3:52:49 PM; Ordered; For: Chronic diarrhea; Ordered By: Sergo Mackey 2. LC-Ova + Parasite Exam [id number] Status: Active Requested for: 10Apr2014 Perform: [facility] Due: [id number] Marked Important; Last Updated By: Shirley Zhang; 04/10/2014 3:52:49 PM; Ordered; For: Chronic diarrhea; Ordered By: Sergo Mackey 3. LC-Stool Culture [id number] Status: Active Requested for: 10Apr2014 Perform: [facility] Due: [id number] Marked Important; Last Updated By: Shirley Zhang; 04/10/2014 3:52:48 PM; Ordered; For: Chronic diarrhea; Ordered By: Sergo Mackey 4. LC-White Blood Cells ( WBC ), Stool [id number] Status: Active Requested for: 10Apr2014 Perform: [facility] Due: [id number] Marked Important; Last Updated By: Shirley Zhang; 04/10/2014 3:52:48 PM; Ordered; For: Chronic diarrhea; Ordered By: Sergo Mackey 5. O AND P, STOOL AND SMEAR Status: Canceled - Manual Activation Perform: [facility] Due: 17Apr2014; Last Updated By: Shirley Zhang; 04/10/2014 3:52:48 PM; Ordered; For: Chronic diarrhea; Ordered By: Sergo Mackey 6. Stool C Diff Molecular Assay Status: Canceled - Manual Activation Perform: [facility] Due: 17Apr2014; Last Updated By: Shirley Zhang; 04/10/2014 3:52:48 PM; Ordered; For: Chronic diarrhea; Ordered By: Sergo Mackey 7. Stool Culture Status: Canceled - Manual Activation [facility] Due: 17Apr2014; Last Updated By: Shirley Zhang; 04/10/2014 3:52:48 PM; Ordered; For: Chronic diarrhea; Ordered By: Sergo Mackey 8. Start: Metoprolol Succinate ER 25 MG Oral Tablet Extended Release 24 Hour; TAKE 1 TABLET DAILY Rx By: Sergo Mackey; Dispense: 30 Days ; #:30 Tablet Extended Release 24 Hour; Refill: 0; For: Hypertension, Palpitations; JULIANA = N; Print Rx 9. XR C-SPINE 4+V ( Routine ) Status: Active Requested for: 10Apr2014 Perform: [facility] Due: 17Apr2014; Last Updated By: Shirley Zhang; 04/10/2014 3:49:05 PM;Ordered; For: Neck pain; Ordered By: Sergo Mackey 10. Start: ClonazePAM 1 MG Oral Tablet; Take one half to one tablet twice a day as needed Rx By: Sergo Mackey; Dispense: 0 Days ; #:60 Tablet; Refill: 0; For: Palpitations; JULIANA = N; Print Rx Signatures Electronically signed by : Sergo Mackey M.D.; Apr 12 2014 5:45PM SYRUP MACHINE LABORER (Author) documented in this encounter Plan of Treatment Not on file documented as of this encounter Visit Diagnoses Not on filedocumented in this encounter Care Teams Sales Specialist Relationship Specialty Start Date End Date Sergo Mackey MD PCP - General 04/07/17 Sergo Mackey MD PCP - General 08/05/16 04/06/17 Sergo Mackey MD PCP - General 07/16/16 08/04/16 Sergo Mackey MD PCP - General 07/14/16 07/15/16 Sergo Mackey MD PCP - General 06/16/16 07/13/16 documented as of this encounter
--- OUTSIDE RECORDS SUMMARY | 2024-11-04 23:52 | XMS_ITS | Encounter Summary ---
Author Organization [facility] Address [facility]. [place], [place] [address] [place] [address] Care Team Providers Care Client Delivery Specialist Name Role Phone Sergo Mackey MD Primary Care Provider Sergo Duncan MD Primary Care Provider Sergo Duncan MD Primary Care Provider Sergo Duncan MD Primary Care Provider Sergo Duncan MD Primary Care Provider Julian short Encounter Details Date Type Department Care Team (Late st Contact Info) Description 06/16/2016 Abstract [facility] Medical Group Family & Internal Medicine [address] [phone] Sergo Mackey MD Social History [...] Sign Reading Time Taken Comments Blood Pressure 132/90 06/16/2016 2:43 PM CDT Pulse 97 06/16/2016 2:43 PM CDT Temperature - - Respiratory Rate - - Oxygen Saturation - - Inhaled Oxygen Concentration - - Weight 123.4 kg (272 lb) 06/16/2016 2:43 PM CDT Height 172.7 cm (5' 8 ) 06/16/2016 2:43 PM CDT Body Mass Index 41.36 06/16/2016 2:43 PM CDT documented in this encounter Progress Notes * Sergo Mackey MD - 06/16/2016 3:00 PM CDT Reason For Visit Reason For Visit: Acute Visit Chief Complaint Patient c/o increased anxiety and panic attacks. History of Present Illness HPI Free Text: Here complaining of increasing anxiety along with panic attacks. These have been going on over the past 3 weeks. Her anxiety seems to have been triggered related to her mom currently being confined in the hospital. She states she ended up going to the [facility] yesterday for symptoms of shortness of breath and palpitations related to panic attacks. She was given Vistaril as well as Klonopin. She is currently taking 0.5 mg tablet of Klonopin which calms her down but reports that she is still having some heart palpitations. The whole pill caused her drowsiness. She has not started the Vistaril because she is afraid of the side effects. She states she had been on different psychiatric medicines in the past for her history of depression. She has seen a psychologist at one time but has not seen a psychiatrist recently. She is here today to discuss further treatment. Review of Systems See HPI for pertinent [...] Meds 1. ClonazePAM 1 MG Oral Tablet; Take one half to one tablettid as needed; Therapy: 10Apr2014 to (Last Rx:[id number]) Ordered Rx By: Sergo Mackey; Dispense: 0 Days ; #:20 Tablet; Refill: 0; For: Palpitations; JULIANA = N; Print Rx; Last Updated By: Ibeth Van; 06/16/2016 3:06:43 PM Allergies 1. 12 Hour Decongestant TB12 Recorded By: Shirley Zhang; 04/10/2014 3:10:36 PM Vitals Recorded: 16Jun2016 02:43PM Heart Rate 97 Respiration 18 Systolic 132 Diastolic 90 O2 Saturation 98 Height 5 ft 8 in Weight 272 lb BMI Calculated 41.36 BSA Calculated 2.33 Physical Exam Constitutional General appearance: No acute distress, well appearing and well nourished. Musculoskeletal Gait and station: Normal. Psychiatric Orientation to person, place, and time: Normal. Mood and affect: Normal. Assessment 1. Panic disorder without agoraphobia (300.01) (F41.0) 2. Bipolar mood disorder (296.80) (F31.9) Plan Bipolar mood disorder, Panic disorder without agoraphobia 1. Psychiatry Referral. Outpatient For: Panic disorder without agoraphobia For: Bipolar mood disorder Status: Hold For - Manual Activation Requested for: 16Jun2016 Ordered; For: Bipolar mood disorder, Panic disorder without agoraphobia; Ordered By: Sergo Mackey Performed: Due: 30Jun2016; Last Updated By: Fariba Garvey; 06/16/2016 3:06:43 PM of Visits Requested : 99 2. CBC W Differential; Status:In Progress - Specimen/Data Collected; Done: 16Jun2016 Perform:[facility]; Due:16Jul2016; Last Updated By:Angela Lal; 06/16/2016 3:16:54 PM;Ordered; For:Bipolar mood disorder, Panic disorder without agoraphobia; Ordered By:Sergo Mackey; 3. Compr Metabolic Prof ( CMP ); Status:In Progress - Specimen/Data Collected; Done: 16Jun2016 Perform:[facility]; Due:16Jul2016; Last Updated By:Angela Lal; 06/16/2016 3:16:54 PM;Ordered; For:Bipolar mood disorder, Panic disorder without agoraphobia; Ordered By:Sergo Mackey; 4. Thyroid Stim Hormone ( TSH ); Status:In Progress - Specimen/Data Collected; Done: 16Jun2016 Perform:[facility]; Due:16Jul2016; Last Updated By:Angela Lal; 06/16/2016 3:16:54 PM;Ordered; For:Bipolar mood disorder, Panic disorder without agoraphobia; Ordered By:Sergo Mackey; Palpitations 5. From ClonazePAM 1 MG Oral Tablet Take one half to one tablettid as needed To ClonazePAM 1 MG Oral Tablet TAKE ONE TABLET THREE TIMES DAILY NEEDED Rx By: Sergo Mackey; Dispense: 0 Days ; #:90 Tablet; Refill: 0; For: Palpitations; JULIANA = N; Print Rx; Last Updated By: Fariba Garvey; 06/16/2016 3:06:43 PM She will be trying to obtain an old medicine list for us as every product I mentioned has been tried and failed in the past. Signatures Electronically signed by : Sergo Mackey M.D.; Jun 18 2016 9:33AM OFFICE MACHINE REPAIR SHOP SUPERVISOR (Author) documented in this encounter Plan of Treatment Not on file documented as of this encounter Visit Diagnoses Not on filedocumented in this encounter Care Teams Client Delivery Specialist Relationship Specialty Start Date End Date Sergo Mackey MD PCP - General 04/07/17 Sergo Mackey MD PCP - General 08/05/16 04/06/17 Sergo Mackey MD PCP - General 07/16/16 08/04/16 Sergo Mackey MD PCP - General 07/14/16 07/15/16 Sergo Mackey MD PCP - General 06/16/16 07/13/16 documented as of this encounter
--- OUTSIDE RECORDS SUMMARY | 2024-11-04 23:52 | XMS_ITS | Encounter Summary ---
Author Organization [facility] Address [facility] [place] [address] [place] [address] Care Team Providers Care Business Process Coordinator Name Role Phone Sergo Mackey MD Primary Care Provider Sergo Duncan MD Primary Care Provider Julian short Encounter Details Date Type Department Care Team (Late st Contact Info) Description 10/20/2016 Abstract [facility] Medical Group Family & Internal Medicine [address] [phone] Sergo Mackey MD Social History Tobacco Use [...] Associated Diagnosis Comments URINE BACTERIA CULTURE Routine 10/20/2016 8:19 AM BENEFITS ADVISOR documented in this encounter Results * CULTURE URINE (10/20/2016 8:19 AM BENEFITS ADVISOR) CULTURE URINE Final report [facility] TO EPIC CONVERSION RESULT [facility] T O EPIC CONVERSION Comment: Result Comment: Mixed urogenital chapin Less than 10,000 colonies/mL 10/20/2016 8:19 AM BENEFITS ADVISOR 10/20/2016 8:19 AM BENEFITS ADVISOR Narrative [facility] TO EPIC CONVERSION - 10/22/2016 5:12 AM BENEFITS ADVISOR Result Communication: No patient communication needed at this time us Angeli [facility] - GENERAL GREGORIO IBARRA Final Result [facility] TO EPIC CONVERSION documented in this encounter Visit Diagnoses Not on filedocumented in this encounter Care Teams Business Process Coordinator Relationship Specialty Start Date End Date Sergo Mackey MD PCP - General 04/07/17 Sergo Mackey MD PCP - General 08/05/16 04/06/17 documented as of this encounter
--- OUTSIDE RECORDS SUMMARY | 2024-11-04 23:52 | XMS_ITS | Encounter Summary ---
Author Organization [facility] Address [address] [place] [address]. [place], [place] [address] [place] [address] Care Team Providers Care Parts Casting Machine Operator Name Role Phone Sergo Mackey MD Primary Care Provider Sergo Duncan MD Primary Care Provider Julian short Encounter Details Date Type Department Care Team (Latest Contact Info) Description 08/06/2016 Abstract [facility] Medical Group , James Pineda MD Social History Tobacco Use Types Packs/Day Years Used Date Smoking Tobacco: Never Assessed Comments Unknown Sex and Gender Information Value Date Recorded Sex Assigned at Not on file Legal Sex Female 5:18 PM CDT Gender Identity Not on file Sexual Orientation Not on file documented as of this encounter Progress Notes * James Pineda Md, MD - 08/06/2016 1:30 PM CDT Message Recorded as Task Date: 08/06/2016 08:33 AM, Created By: Nellie Moy Task Name: Medical Complaint Callback Assigned To: [facility] Nurse Team Regarding Patient: Alia Fabian, Status: In Progress Comment: Nellie Moy - 06 Aug 2016 8:33 AM TASK CREATED Alia's labs drawn yesterday were all normal. She should continue keeping hydrated and complete herantibiotics as prescribed. If her vomiting worsens, and she is unable to keep fluids down, she should go to the ER for fluids. Fariba Garvey - 06 Aug 2016 12:44 PM TASK IN PROGRESS Fariba Garvey - 06 Aug 2016 12:45 PM TASK EDITED [id number] Message: Pt updated by phone-елена Signatures Electronically signed by : Eloisa Wolfe R.N.; Aug 06 2016 1:30PM CLIENT CARE REPRESENTATIVE (Author) documented in this encounter Plan of Treatment Not on file documented as of this encounter Visit Diagnoses Not on filedocumented in this encounter Care Teams Parts Casting Machine Operator Relationship Specialty Start Date End Date Sergo Mackey MD PCP - General 04/07/17 Sergo Mackey MD PCP - General 08/05/16 04/06/17 documented as of this encounter
--- OUTSIDE RECORDS SUMMARY | 2024-11-04 23:52 | XMS_ITS | Encounter Summary ---
Author Organization [facility] Address [address] [place] [address]. [place] [address] [place] [address] Care Team Providers Care Warp Scouring Vat Tender Name Role Phone Sergo Mackey MD Primary Care Provider Sergo Duncan MD Primary Care Provider Julian short Encounter Details Date Type Department Care Team (Late st Contact Info) Description 10/19/2016 Abstract [facility] Medical [facility] - [facility] [address], [address] [place] [address] Angeli Wu APNP [id number] [address] Social History Tobacco Use Types Packs/Day Years Used Date Smoking Tobacco: Never Assessed Comments Unknown Sex and Gender Information Value Date Recorded Sex Assigned at Not on file Legal Sex Female 5:18 PM CDT Gender Identity Not on file Sexual Orientation Not on file documented as of this encounter Last Filed Vital Signs Vital Sign Reading Time Taken Comments Blood Pressure 138/78 10/19/2016 3:24 PM GENERAL OPERATIONS AGENT Pulse - - Temperature - - Respiratory Rate - - Oxygen Saturation - - Inhaled Oxygen Concentration - - Weight 121.1 kg (267 lb) 10/19/2016 3:24 PM GENERAL OPERATIONS AGENT Height 172.7 cm (5' 8 ) 10/19/2016 3:24 PM GENERAL OPERATIONS AGENT Body Mass Index 40.6 10/19/2016 3:24 PM GENERAL OPERATIONS AGENT documented in this encounter Progress Notes * EMELYN Muller - 10/19/2016 2:45 PM CST History of Present Illness HPI: 26-year-old white female presents for new evaluation of recurrent UTIs. Patient tells me that for the past 6 months she has been treated multiple times for presumed urinary tract infection. She tells me the salt started when she started having heart palpitations for which she presented to the ER. She was diagnosed with bipolar disorder and was placed in a mental institution late July toearly August and tells me during that stay she was also diagnosed with a urinary tract infection and treated the antibiotics. she does not think she experienced any symptoms of a urinary tract infection whatsoever when being treated for one and she is unsure if a urine culture was ever performed.She is very worried that something is wrong with her kidneys because of a family history of kidney disease. She tells me the majority of people in her family of high blood pressure and diabetes but denies any history of congenital defects. Currently she denies any hematuria or dysuria. She voids 4-5 times throughout the day and does not awaken at night. No irritative or obstructive voiding symptoms. No fever or chills. She gets occasional back pain on both sides of her back but has nothing today.No personal or family history of kidney stones. Review of Systems Constitutional: negative. Cardiovascular: negative. Respiratory: negative. Gastrointestinal: negative. Genitourinary: negative. Musculoskeletal: negative. Active Problems 1. Abdominal cramping, generalized (789.07) [...] (E55.9) 19. Vomiting and diarrhea (787.03,787.91) (R11.10,R19.7) Surgical History 1. History of Oral Surgery Tooth Extraction Family History 1. Family history of diabetes mellitus (V18.0) (Z83.3) 2. Family history of hypertension (V17.49) (Z82.49) Social History ?? Never a smoker ?? Single Current Meds 1. Chlordiazepoxide-Clidinium 5-2.5 MG Oral Capsule; TAKE ONE CAPSULE BY MOUTH TWICE DAILY; Therapy: 13Aug2016 to (Evaluate:[id number]) Requested for: 21Sep2016; Last Rx:21Sep2016 Ordered Rx By: Nellie Moy; Dispense: 30 Days ; #:60 Capsule; Refill: 0; For: Abdominal cramping, generalized; JULIANA = N; Print Rx; Last Updated By: DIY; 09/21/2016 8:25:38 AM 2. ClonazePAM 1 MG Oral Tablet; Take one tablet three times daily as needed prn; Therapy: 10Sep2016 to (Evaluate:[id number]); Last Rx:10Sep2016 Ordered Rx By: Sergo Mackey; Dispense: 30 Days ; #:90 Tablet; Refill: 0; For: Bipolar mood disorder; JULIANA = N; Print Rx 3. Fluconazole 150 MG Oral Tablet; TAKE 1 TABLET Once PRN onset of symptoms may repeat dose in 72 hours for continued symptoms; Therapy: 05Aug2016 to (Evaluate:07Aug2016) Requested for: 05Aug2016; Last Rx:05Aug2016 Ordered Rx By: Nellie Moy; Dispense: 2 Days ; #:2 Tablet; Refill: 0; For: Antibiotic-induced yeast infection; JULIANA = N; Verified Transmission to [facility] [id number]; Last Updated By: DIY; 08/05/2016 11:47:13 AM 4. Metoprolol Tartrate 25 MG Oral Tablet; TAKE 1 TABLET TWICE DAILY; Therapy: 05Aug2016 to (Evaluate:[id number]) Requested for: 13Aug2016; Last Rx:13Aug2016 Ordered Rx By: Nellie Moy; Dispense: 30 Days ; #:60 Tablet; Refill: 5; For: Palpitations; JULIANA = N; Verified Transmission to [facility] [address]70; Last Updated By: Dayron Rae; 08/13/2016 3:19:40 PM 5. Propranolol HCl - 20 MG Oral Tablet; TK 1 T PO BID; Therapy: [id number] to Recorded Rx By: JESSICA BOWIE; Dispense: 30 Days ; #:60 TABS; Refill: 0; JULIANA = N; Record; Last Updated By: Marcela Galo; 10/15/2016 8:35:11 AM Allergies 1. 12 Hour Decongestant TB12 Recorded By: Shirley Zhang; 04/10/2014 3:10:36 PM Vitals Recorded: 19Oct2016 03:24PM Temperature 98.7 F Systolic 138 Diastolic 78 Height 5 ft 8 in Weight 267 lb BMI Calculated 40.6 BSA Calculated 2.31 Physical Exam Constitutional General appearance: No acute distress, well appearing and well nourished. Abdomen Abdomen: Normal, non-tender, and no organomegaly noted. Psychiatric Orientation to person, place, and time: Normal. Results/Data *Urine dip auto In Office [id number] 03:25PM Angeli Wu Test Name Result Flag Reference Color Yellow Clarity Clear Glucose Negative Bilirubin Negative Ketones Negative Specific [place] 1.015 Blood 3+(Large) pH 6.5 5.0 - 7.0 Protein Negative Urobilinogen Negative Nitrites n Leukocytes Negative Assessment Reported History of urinary tract infections, currently asymptomatic Microscopic hematuria 2/2 menses today Plan I will go ahead and send patient's urine for culture. We discussed obtaining a renal ultrasound to ensure everything is normal with her kidneys. I reassured patient at great lengths. We will call herwith results if everything is normal she'll followup here p.r.n. Signatures Electronically signed by : Angeli Wu APN; Oct 19 2016 3:45PM GENERAL OPERATIONS AGENT (Author) documented in this encounter Plan of Treatment Not on file documented as of this encounter Procedures Procedure Name Priority Date/Time Associated Diagnosis Comments URINALYSIS AUTO DIP Routine 10/19/2016 3 :25 PM GENERAL OPERATIONS AGENT documented in this encounter Results * URINALYSIS AUTO DIP (10/19/2016 3:25 PM GENERAL OPERATIONS AGENT) COLOR (U) Yellow [facility] T O EPIC CONVERSION TRANSPARENCY Clear [facility] P TO EPIC CONVERSION GLUCOSE Negative [facility] T O EPIC CONVERSION BILIRUBIN (U) Negative [facility] UP TO EPIC CONVERSION KETONE (U) Negative [facility] TO EPIC CONVERSION SPECIFIC GRAVITY (U) 1.015 [facility] TO EPIC CONVERSION BLOOD (U) 3+(Large) [facility] T O EPIC CONVERSION PH (U) 6.5 5.0 - 7.0 [facility] T O EPIC CONVERSION PROTEIN (ELP) (U) Negative [facility] TO EPIC CONVERSION UROBILINOGEN Negative [facility] P TO EPIC CONVERSION NITRITES n [facility] T O EPIC CONVERSION LEUKOCYTES (U) Negative [facility] OUP TO EPIC CONVERSION 10/19/2016 3:25 PM GENERAL OPERATIONS AGENT 10/19/2016 3:25 PM GENERAL OPERATIONS AGENT us Angeli Wu APNP URINE ORDERABLES Final Resu lt [facility] TO EPIC CONVERSION documented in this encounter Visit Diagnoses Not on filedocumented in this encounter Care Teams Warp Scouring Vat Tender Relationship Specialty Start Date End Date Sergo Mackey MD PCP - General 04/07/17 Sergo Mackey MD PCP - General 08/05/16 04/06/17 documented as of this encounter
--- OUTSIDE RECORDS SUMMARY | 2024-11-04 23:52 | XMS_ITS | Encounter Summary ---
Author Organization [facility] Address [address] [place] [address]. [place], [place] [address] [place] [address] Care Team Providers Care Shake Maker Name Role Phone Sergo Mackey MD Primary Care Provider Sergo Duncan MD Primary Care Provider Julian short Encounter Details Date Type Department Care Team (Latest Contact Info) Description 08/10/2016 Abstract [facility] Social History Tobacco Use Types [...] on filedocumented in this encounter Care Teams Shake Maker Relationship Specialty Start Date End Date Sergo Mackey MD PCP - General 04/07/17 Sergo Mackey MD PCP - General 08/05/16 04/06/17 documented as of this encounter
--- OUTSIDE RECORDS SUMMARY | 2024-11-04 23:52 | XMS_ITS | Encounter Summary ---
Author Organization [facility] Address [address] [place] [address]. [place], [place] [id number] [place] [address] Care Team Providers Care Oven Worker Name Role Phone Sergo Mackey MD Primary Care Provider Sergo Duncan MD Primary Care Provider Julian short Encounter Details Date Type Department Care Team (Latest Contact Info) Description 10/14/2016 Abstract [facility] Medical Group Social History Tobacco [...] on filedocumented in this encounter Care Teams Oven Worker Relationship Specialty Start Date End Date Sergo Mackey MD PCP - General 04/07/17 Sergo Mackey MD PCP - General 08/05/16 04/06/17 documented as of this encounter
--- OUTSIDE RECORDS SUMMARY | 2024-11-04 23:52 | XMS_ITS | Encounter Summary ---
Author Organization [facility] Address [address] [place] [address]. [place], [place] [address] [place] [address] Care Team Providers Care Customs Verifier Name Role Phone Sergo Mackey MD Primary Care Provider Sergo Duncan MD Primary Care Provider Julian short Encounter Details Date Type Department Care Team (Latest Contact Info) Description 08/20/2016 Abstract [facility] Medical Group Social History Tobacco Use Types Packs/Day Years Used Date Smoking Tobacco: Never Assessed Comments Unknown Sex and Gender Information Value Date Recorded Sex Assigned at Not on file Legal Sex Female 5:18 PM CDT Gender Identity Not on file Sexual Orientation Not on file documented as of this encounter Progress Notes * James Pineda Md, MD - 08/20/2016 4:36 PM CDT Message Recorded as Task Date: 08/20/2016 11:18 AM, Created By: Nellie Moy Task Name: Medical Complaint Callback Assigned To: [facility] Nurse Team Regarding Patient: Alia Fabian, Status: In Progress Comment: Nellie Moy - 20 Aug 2016 11:18 AM TASK CREATED Alia's head CT is normal . Elsa Rivera 20 Aug 2016 4:35 PM TASK IN PROGRESS Elsa Rivera 20 Aug 2016 4:36 PM TASK EDITED Patient informed//af Signatures Electronically signed by : Elsa Rivera, ; Aug 20 2016 4:36PM SEWER (Author) documented in this encounter Plan of Treatment Not on file documented as of this encounter Visit Diagnoses Not on filedocumented in this encounter Care Teams Customs Verifier Relationship Specialty Start Date End Date Sergo Mackey MD PCP - General 04/07/17 Sergo Mackey MD PCP - General 08/05/16 04/06/17 documented as of this encounter
--- OUTSIDE RECORDS SUMMARY | 2024-11-04 23:52 | XMS_ITS | Encounter Summary ---
Author Organization [facility] Address [address] [place] [address]. [place], [place] [address] [place] [address] Care Team Providers Care Pharmaceutical Engineer Name Role Phone Sergo Mackey MD Primary Care Provider Sergo Duncan MD Primary Care Provider Sergo Duncan MD Primary Care Provider Julian short Encounter Details Date Type Department Care Team (Latest Contact Info) Description 07/17/2016 Abstract [facility] Medical [facility] , James Pineda MD Social History Tobacco Use Types Packs/Day Years Used Date Smoking Tobacco: Never Assessed Comments Unknown Sex and Gender Information Value Date Recorded Sex Assigned at Not on file Legal Sex Female 5:18 PM CDT Gender Identity Not on file Sexual Orientation Not on file documented as of this encounter Progress Notes * Sergo Mackey MD - 07/17/2016 3:06 PM CDT Message patient notified -sjs Verified Results Urine Culture [id number] 02:41PM Sergo Mackey Test Name Result Flag Reference Urine Culture SPECIMEN DESCRIPTION - URINE CLEAN CATCH SPECIAL REQUESTS - NO SPECIAL REQUEST CULTURE - NO GROWTH 2 DAYS REPORT STATUS - FINAL 07/17/2016 Discussion/Summary Urine culture shows no infection. No need for anbx. Signatures Electronically signed by : Fariba Garvey MA; Jul 20 2016 1:37PM PLAYER DEVELOPMENT EXECUTIVE (Author) * Generic Conversion MD Ashkan - 07/17/2016 11:09 AM CDT Message Recorded as Task Date: 07/15/2016 01:28 PM, Created By: Yasmine Fitch Task Name: Medical Complaint Callback Assigned To: [facility] Team Narendra Regarding Patient: Alia Fabian, Status: In Progress Comment: Yasmine Fitch - 15 Jul 2016 1:28 PM TASK CREATED Caller: Self; Medical Complaint; [facility] last SOB and chest pain xray and labs were done, everything ok pt was given ativan 1mg and it worked Sergo Mackey - 15 Jul 2016 1:38 PM TASK IN PROGRESS Sergo Mackey - 16 Jul 2016 7:40 AM TASK REASSIGNED: Previously Assigned To Sergo Mackey She can take Ativan rather than Klonopin as they are similar medicines. Lorazepam 1 mg, #60, one p.o. up to t.i.d. p.r.n., no refill. She needs to stop the clonazepam. I will review her [facility] records and offer some other recommendations. Eloisa Wolfe - 16 Jul 2016 4:49 PM TASK EDITED [facility] Message: Pts mother updated-[facility] Plan 1. LORazepam 1 MG Oral Tablet; TAKE 1 TABLET BY MOUTH THREE TIMES DAILY NEEDED Rx By: Sergo Mackey; Dispense: 0 Days ; #:60 Tablet; Refill: 0; For: Bipolar mood disorder, Palpitations; JULIANA = N; Call Rx; Last Updated By: Eloisa Wolfe Signatures Electronically signed by : Eloisa Wolfe R.N.; Jul 17 2016 11:11AM PLAYER DEVELOPMENT EXECUTIVE (Author) documented in this encounter Plan of Treatment Not on file documented as of this encounter Visit Diagnoses Not on filedocumented in this encounter Care Teams Pharmaceutical Engineer Relationship Specialty Start Date End Date Sergo Mackey MD PCP - General 04/07/17 Sergo Mackey MD PCP - General 08/05/16 04/06/17 Sergo Mackey MD PCP - General 07/16/16 08/04/16 documented as of this encounter
--- OUTSIDE RECORDS SUMMARY | 2024-11-04 23:52 | XMS_ITS | Encounter Summary ---
Author Organization [facility] Address [facility] [facility]. [place], [place] [address] [place] [address] Care Team Providers Care Head Mixer Name Role Phone Sergo Mackey MD Primary Care Provider Sergo Duncan MD Primary Care Provider Sergo Duncan MD Primary Care Provider Sergo Duncan MD Primary Care Provider Sergo Duncan MD Primary Care Provider Julian short Encounter Details Date Type Department Care Team (Latest Contact Info) Description 06/19/2016 Abstract [facility] Medical Group Social History Tobacco Use Types Packs/Day Years Used Date Smoking Tobacco: Never Assessed Comments Unknown Sex and Gender Information Value Date Recorded Sex Assigned at Not on file Legal Sex Female 5:18 PM CDT Gender Identity Not on file Sexual Orientation Not on file documented as of this encounter Progress Notes * Sergo Mackey MD - 06/19/2016 5:31 AM CDT Message Patient informed, she is in the process of getting list, she will bring it into office when she comes in//af Verified Results CBC W Differential [id number] 03:16PM Sergo Mackey Test Name Result Flag Reference WBC 8.9 X10'3/uL 4.8-10.8 RBC 4.95 X10'6/uL 4.20-5.40 Hemoglobin (HGB) 14.0 g/dL 12.0-16.0 Hematocrit (HCT) 44.5 % 38.0-48.0 Mean Corpuscular Volume (MCV) 89.9 fL 81.0-99.0 Mean Corpuscular Hgb (MCH) 28.3 pg 27.0-31.0 Mean Corpuscular Hgb Conc (MCH 31.5 g/dL L 32.0-36.0 RDW 13.1 % 11.5-14.5 PLATELET COUNT 324 X10'3/uL 130-400 Mean Platelet Volume (MPV) 10.3 fL 9.3-12.2 Differential Type AUTOMATED NEUTROPHILS 67.0 % H 43.0-65.0 Lymphocytes % (Auto) 26.0 % 20.0-46.0 MONOCYTES 4.5 % L 5.0-12.0 Eosinophils % (Auto) 1.6 % 1.0-3.0 Basophils % (Auto) 0.7 % 0.0-1.0 IMMATURE GRANULOCYTES 0.2 % 0.0-1.0 Compr Metabolic Prof ( CMP ) [id number] 03:16PM Sergo Mackey Test Name Result Flag Reference Glucose 96 mg/dL 70-99 Blood Urea Nitrogen (BUN) 10 mg/dL 8-23 Creatinine 0.65 mg/dL 0.60-1.10 Sodium (Na) 140 mmol/L 136-145 Potassium (K) 4.5 mmol/L 3.5-5.1 Chloride (Cl) 101 mmol/L 98-107 Carbon Dioxide (CO2) 25 mmol/L 22-29 Total Bilirubin 0.6 mg/dL 0.2-1.2 Calcium 9.8 mg/dL 8.6-10.2 Alkaline Phosphatase (ALKP) 74 U/L 35-104 AST/GOT 18 U/L 0-32 Total Protein 7.5 g/dL 6.4-8.3 Albumin 4.8 g/dL 3.5-5.2 ALT/GPT 19 U/L 0-33 Globulin, Calc 2.7 g/dL 2.3-3.6 A:G Ratio 1.8 1.0-2.0 Anion Gap 19 8-20 Glomerular Filt Rate Calc >60 mL/min/1.73m'2 >60 Glomerular Filt Rate (AA) Calc >60 >60 NOTE: eGFR is not calculated for patients <18 years of age. This is an estimated GFR (CKD EPI) and should not be used for calculating drug doses. mL/min/1.73m'2 Thyroid Stim Hormone ( TSH ) [id number] 03:16PM Sergo Mackey Test Name Result Flag Reference Thyroid Stim Hormone (TSH) 1.56 mIU/mL 0.27-4.20 Discussion/Summary Labs all good/normal. Was she able to get a list of meds she had tried in the past for her moods? Signatures Electronically signed by : Elsa Rivera, ; Jun 19 2016 12:12PM MICROWAVE ENGINEER (Author) documented in this encounter Plan of Treatment Not on file documented as of this encounter Visit Diagnoses Not on filedocumented in this encounter Care Teams Head Mixer Relationship Specialty Start Date End Date Sergo Mackey MD PCP - General 04/07/17 Sergo Mackey MD PCP - General 08/05/16 04/06/17 Sergo Mackey MD PCP - General 07/16/16 08/04/16 Sergo Mackey MD PCP - General 07/14/16 07/15/16 Sergo Mackey MD PCP - General 06/16/16 07/13/16 documented as of this encounter
--- OUTSIDE RECORDS SUMMARY | 2024-11-04 23:52 | XMS_ITS | Encounter Summary ---
Author Organization [facility] Address [address] [place] [address]. [place] [address] [place] [address] Care Team Providers Care Unix System Administrator Name Role Phone Sergo Mackey MD Primary Care Provider Sergo Duncan MD Primary Care Provider Julian short Encounter Details Date Type Department Care Team (Late st Contact Info) Description 08/13/2016 Abstract [facility] Family & Internal Medicine [id number] [place] [address] Nellie Moy FNP [address] [place] [address] Social History Tobacco Use Types Packs/Day Years Used Date Smoking Tobacco: Never Assessed Comments Unknown Sex and Gender Information Value Date Recorded Sex Assigned at Not on file Legal Sex Female 5:18 PM CDT Gender Identity Not on file Sexual Orientation Not on file documented as of this encounter Last Filed Vital Signs Vital Sign Reading Time Taken Comments Blood Pressure 102/84 08/13/2016 2:48 PM CDT Pulse 83 08/13/2016 2:48 PM CDT Temperature - - Respiratory Rate - - Oxygen Saturation - - Inhaled Oxygen Concentration - - Weight 114.8 kg (253 lb) 08/13/2016 2:48 PM CDT Height 172.7 cm (5' 8 ) 08/13/2016 2:48 PM CDT Body Mass Index 38.47 08/13/2016 2:48 PM CDT documented in this encounter Progress Notes * SEAN Yanes - 08/13/2016 2:30 PM CDT Reason For Visit Chronic Recheck Visit Chief Complaint Results follow up. History of Present Illness HPI Free Text: Alai is here to f/u on her lab results and also to f/u after an ER visit. One day after her visit on the , she went and was seen in the ER and was dx with bronchitis. She has since finished the antibiotics and is still currently taking Librax for her cramping and diarrhea, prescribed by the ER([facility]), which has been helping with her pain. She wanted to see what her stool culture showed and to get refills on her stomach medications. She has an appointment with the GI specialist in the next month. She also thinks she might have had either a seizure or a stroke while she was in [facility] for mental illness. She brought her blood pressure readings and states that when they were elevated,she didn't receive her medications and she felt like she might of had a mini stroke . She wants toknow if we can order a CT scan to determine if there was any damage. Review of Systems See HPI for pertinent positives. Active Problems 1. Abnormal urine finding (791.9) (R82.90) 2. Antibiotic-induced yeast infection (112.9) (B37.9,T36.95XA) 3. Bilateral otitis externa (380.10) (H60.93) 4. Bilateral otitis media (382.9) (H66.93) 5. Bipolar mood disorder (296.80) (F31.9) 6. Chronic diarrhea (787.91) (K52.9) 7. Flushing (782.62) (R23.2) 8. Hypertension (401.9) (I10) 9. Leukocytes in urine (791.7) (R82.99) 10. Neck pain (723.1) (M54.2) 11. Palpitations (785.1) (R00.2) 12. Panic disorder without agoraphobia (300.01) (F41.0) 13. Urinary frequency (788.41) (R35.0) 14. Vomiting and diarrhea (787.03,787.91) (R11.10,R19.7) Surgical History 1. History of Oral Surgery Tooth Extraction Family History 1. Family history of diabetes mellitus (V18.0) (Z83.3) 2. Family history of hypertension (V17.49) (Z82.49) Social History ?? Never a smoker ?? Single Current Meds 1. Fluconazole 150 MG Oral Tablet; TAKE 1 TABLET Once PRN onset of symptoms may repeat dose in 72 hours for continued symptoms; Therapy: 05Aug2016 to (Evaluate:07Aug2016) Requested for: 05Aug2016; Last Rx:[id number] Ordered 2. Metoprolol Tartrate 25 MG Oral Tablet; TAKE 1 TABLET TWICE DAILY; Therapy: 05Aug2016 to (Evaluate:01Feb2017); Last Rx:[id number] Ordered Allergies 1. 12 Hour Decongestant TB12 Vitals Recorded: 13Aug2016 02:48PM Heart Rate 83 Respiration 18 Systolic 102 Diastolic 84 O2 Saturation 99 Height 5 ft 8 in Weight 253 lb BMI Calculated 38.47 BSA Calculated 2.26 Physical Exam Constitutional General appearance: Abnormal. patient was observed to be moderately obese, but well developed and well nourished. [...] rhythm, normal S1 and S2, without murmurs. Abdomen Abdomen: Non-tender, no masses. Liver and spleen: No hepatomegaly or splenomegaly. Lymphatic Palpation of lymph nodes in neck: No lymphadenopathy. Musculoskeletal Gait and station: Normal. Digits and nails: Normal without clubbing or cyanosis. Skin Skin and subcutaneous tissue: Normal without rashes or lesions. Neurologic Cranial nerves: Cranial nerves 2-12 intact. Reflexes: 2+ and symmetric. Sensation: No sensory loss. Psychiatric Orientation to person, place, and time: Normal. Mood and affect: Normal. Counseling The patient was counseled regarding instructions for management, risk factor reductions, prognosis,patient and family education, impressions, risks and benefits of treatment options and importance of compliance with treatment. total time of encounter was 15 minutes and 12 minutes was spent counseling. Assessment 1. Abdominal cramping, generalized (789.07) (R10.84) Plan Abdominal cramping, generalized 1. Chlordiazepoxide-Clidinium 5-2.5 MG Oral Capsule; Take 1 capsule twice daily Rx By: Nellie Moy; Dispense: 30 Days ; #:60 Capsule; Refill: 0; For: Abdominal cramping, generalized; JULIANA = N; Print Rx Abdominal cramping, generalized, Chronic diarrhea 2. Follow-up PRN Outpatient Follow-up Status: Complete Done: 13Aug2016 Ordered; For: Abdominal cramping, generalized, Chronic diarrhea; Ordered By: Nellie Moy Performed: Due: 27Aug2016 3. Drink plenty of fluids.; Status:Complete; Done: 13Aug2016 Ordered; For:Abdominal cramping, generalized, Chronic diarrhea; Ordered By:Nellie Moy; Elevated blood pressure 4. CT HEAD BRAIN W/O; Status:Need Information - Financial Authorization; Requested for:13Aug2016; Perform:Other Radiology; Due:12Sep2016; Last Updated By:Eloisa Wolfe; 08/13/2016 4:00:35 PM;Ordered;For:Elevated blood pressure; Ordered By:Nellie Moy; Any place that is covered by insurance Palpitations 5. Metoprolol Tartrate 25 MG Oral Tablet; TAKE 1 TABLET TWICE DAILY Rx By: Nellie Moy; Dispense: 30 Days ; #:60 Tablet; Refill: 5; For: Palpitations; JULIANA = N; Verified Transmission to [place] [id number]; Last Updated By: Dayron Rae; 08/13/2016 3:19:40 PM Signatures Electronically signed by : Nellie Moy, ; Aug 13 2016 5:15PM SWEATBAND DECORATING MACHINE OPERATOR (Author) Electronically signed by : Sander Stewart M.D.; Aug 23 2016 9:18PM SWEATBAND DECORATING MACHINE OPERATOR (Author) documented in this encounter Plan of Treatment Not on file documented as of this encounter Visit Diagnoses Not on filedocumented in this encounter Care Teams Unix System Administrator Relationship Specialty Start Date End Date Sergo Mackey MD PCP - General 04/07/17 Sergo Mackey MD PCP - General 08/05/16 04/06/17 documented as of this encounter
--- OUTSIDE RECORDS SUMMARY | 2024-11-04 23:52 | XMS_ITS | Encounter Summary ---
Author Organization [facility] Address [facility] [facility] [place] [address] [place] [address] Care Team Providers Care Concrete Precast Moulder Name Role Phone Sergo Mackey MD Primary Care Provider Sergo Duncan MD Primary Care Provider Julian short Encounter Details Date Type Department Care Team (Late st Contact Info) Description 10/06/2016 Abstract [facility] Medical Group Family & Internal Medicine [address] [place] [address] Nellie Moy FNP [address] [place] [address] Social History Tobacco Use Types Packs/Day Years [...] filedocumented in this encounter Care Teams Concrete Precast Moulder Relationship Specialty Start Date End Date Sergo Mackey MD PCP - General 04/07/17 Sergo Mackey MD PCP - General 08/05/16 04/06/17 documented as of this encounter
--- OUTSIDE RECORDS SUMMARY | 2024-11-04 23:52 | XMS_ITS | Encounter Summary ---
Author Organization [facility] Address [address] [place] [address]. [place] [address] [place] [address] Care Team Providers Care Senior Network Systems Engineer Name Role Phone Sergo Mackey MD Primary Care Provider Sergo Duncan MD Primary Care Provider Sergo Duncan MD Primary Care Provider Sergo Duncan MD Primary Care Provider Sergo Duncan MD Primary Care Provider Julian short Encounter Details Date Type Department Care Team (Late st Contact Info) Description 06/16/2016 Abstract [facility] [place] [address] Sergo Mackey MD Social History Tobacco Use [...] CDT) TSH 1.56 0.27 - 4.20 mIU/mL 06/16/2016 8:22 PM CDT [facility] SERUM OR PLASMA SPECIMEN / Unknown 06/16/2016 3:16 PM CDT 06/16/2016 7:49 PM CDT us Generic Conversion [facility] Final R esult [facility] [address] [place] [address], * COMPREHENSIVE METABOLIC PANEL (06/16/2016 3:16 PM CDT) Pathologist [facility] GLUCOSE 96 70 - 99 mg/dL 06/16/2016 8:22 PM CDT [facility] BUN 10 8 - 23 mg/dL 06/16/2016 8:22 PM CDT [facility] CREATININE S/P/B 0.65 0.60 - 1.10 mg/dL 06/16/2016 8:22 PM CDT [facility] SODIUM S/P/B 140 136 - 145 mmol/L 06/16/2016 8:22 PM CDT [facility] POTASSIUM S/P/B 4.5 3.5 - 5.1 mmol/L 06/16/2016 8:22 PM CDT [facility] CHLORIDE S/P/B 101 98 - 107 mmol/L 06/16/2016 8:22 PM CDT [facility] CO2 25 22 - 29 mmol/L 06/16/2016 8:22 PM CDT [facility] BILIRUBIN TOTAL S/P/B 0.6 0.2 - 1.2 mg/dL 06/16/2016 8:22 PM CDT [facility] CALCIUM S/P/B 9.8 8.6 - 10.2 mg/dL 06/16/2016 8:22 PM CDT [facility] ALKALINE PHOSPHATASE S/P/B 74 35 - 104 U/L 06/16/2016 8:22 PM CDT [facility] AST 18 0 - 32 U/L 06/16/2016 8:22 PM CDT [facility] TOTAL PROTEIN S/P/B 7.5 6.4 - 8.3 g/dL 06/16/2016 8:22 PM CDT [facility] ALBUMIN S/P/B 4.8 3.5 - 5.2 g/dL 06/16/2016 8:22 PM CDT [facility] ALT 19 0 - 33 U/L 06/16/2016 8:22 PM CDT [facility] GLOBULIN 2.7 2.3 - 3.6 g/dL 06/16/2016 8:22 PM CDT [facility] A/G RATIO 1.8 1.0 - 2.0 06/16/2016 8:22 PM CDT [facility] ANION GAP 19 8 - 20 06/16/2016 8:22 PM CDT [facility] EGFR NON-AFR. AMER. >60 >60 mL/min/1.7 '2 06/16/2016 8:22 PM CDT [facility] EGFR AFR. AMER. >60 >60 mL/min/1.7 '2 06/16/2016 8:22 PM CDT [facility] Comment: NOTE: eGFR is not calculated for patients <18 years of age. This is an estimated GFR (CKD EPI) and should not be used for calculating drug doses. 06/16/2016 3:16 PM CDT 06/16/2016 7:49 PM CDT us Generic Conversion [facility] Final R esult [facility] [address] [place] [address], [place] [phone] * (ABNORMAL) CBC W/DIFF AUTOMATED (06/16/2016 3:16 PM CDT) [facility] WBC 8.9 4.8 - 10.8 X10'3/uL 06/16/2016 7:56 PM CDT [facility] RBC 4.95 4.20 - 5.40 X10'6/uL 06/16/2016 7:56 PM CDT [facility] HGB 14.0 12.0 - 16.0 g/dL 06/16/2016 7:56 PM CDT [facility] HCT 44.5 38.0 - 48.0 % 06/16/2016 7:56 PM CDT [facility] MCV 89.9 81.0 - 99.0 fL 06/16/2016 7:56 PM CDT [facility] MCH 28.3 27.0 - 31.0 pg 06/16/2016 7:56 PM CDT [facility] MCHC 31.5(L) 32.0 - 36.0 g/dL 06/16/2016 7:56 PM CDT [facility] RDW 13.1 11.5 - 14.5 % 06/16/2016 7:56 PM CDT [facility] PLT 324 130 - 400 X10'3/uL 06/16/2016 7:56 PM CDT [facility] MPV 10.3 9.3 - 12.2 fL 06/16/2016 7:56 PM CDT [facility] DIFFERENTIAL TYPE AUTOMATED 06/16/2016 7:56 PM CDT [facility] NEUTROPHILS % 67.0(H) 43.0 - 65.0 % 06/16/2016 7:56 PM CDT [facility] LYMPHOCYTES % 26.0 20.0 - 46.0 % 06/16/2016 7:56 PM CDT [facility] MONOCYTES % 4.5(L) 5.0 - 12.0 % 06/16/2016 7:56 PM CDT [facility] EOSINOPHILS 1.6 1.0 - 3.0 % 06/16/2016 7:56 PM CDT [facility] BASOPHILS 0.7 0.0 - 1.0 % 06/16/2016 7:56 PM CDT [facility] IMMATURE GRANS % 0.2 0.0 - 1.0 % 06/16/2016 7:56 PM CDT [facility] 06/16/2016 3:1 6 PM CDT 06/16/2016 7:49 PM CDT us Generic Conversion [facility] Final R esult [facility] [address] [place] [address], documented in this encounter Visit Diagnoses Diagnosis Bipolar disorder (CMS/HCC [facility]) Bipolar disorder, unspecified documented in this encounter Care Teams Senior Network Systems Engineer Relationship Specialty Start Date End Date Sergo Mackey MD PCP - General 04/07/17 Sergo Mackey MD PCP - General 08/05/16 04/06/17 Sergo Mackey MD PCP - General 07/16/16 08/04/16 Sergo Mackey MD PCP - General 07/14/16 07/15/16 Sergo Mackey MD PCP - General 06/16/16 07/13/16 documented as of this encounter
--- OUTSIDE RECORDS SUMMARY | 2024-11-04 23:52 | XMS_ITS | Encounter Summary ---
Author Organization [facility] Address [address] [place] [address]. [place], [place] [address] [place] [address] Care Team Providers Care Coverage Specialist Name Role Phone Sergo Mackey MD Primary Care Provider Sergo Duncan MD Primary Care Provider Julian short Encounter Details Date Type Department Care Team (Latest Contact Info) Description 08/14/2016 Abstract [facility] Medical [facility] Social History Tobacco [...] on filedocumented in this encounter Care Teams Coverage Specialist Relationship Specialty Start Date End Date Sergo Mackey MD PCP - General 04/07/17 Sergo Mackey MD PCP - General 08/05/16 04/06/17 documented as of this encounter
--- OUTSIDE RECORDS SUMMARY | 2024-11-04 23:54 | XMS_ITS | Encounter Summary ---
Author Organization [facility] Address [address] [address] Care Team Providers Care Banana Loader Name Role Phone Trenton Lomeli MD Primary Care Provider [phone] Neelima Velazquez MD Unavailable [phone] Maura Wilson MD Unavailable [phone] Reason for Referral * Diagnostic Imaging (Routine) - Closed Specialty Diagnoses / Procedures Referred By Contac t Referred To Contact Diagnoses Class 3 severe obesity due to excess calories without serious comorbidity with body mass index (BMI) of 45.0 to 49.9 in adult (HCC) RUQ discomfort Procedures US RUQ Trenton Lomeli MD [address] [place] [id number] Phone: tel: fax: External Order Referral ID Status Reason Start Date Expiration Date Visits Re quested Visits Authorized [id number] Closed 06/16/2023 07/15/2024 1 1 Reason for Visit * Reason Comments Follow-up Pt is here to f/u fr om cardiology on POTS dx and imaging. Encounter Details Date Type Department Care Team (Late st Contact Info) Description 06/16/2023 2:15 PM CDT Office Visit [facility] Primary Care at [address] [id number] Trenton Lomeli MD [address] [facility] [address] [place] [address] Essential hypertension (Primary Dx); Hypercholesterolemia; Class 3 severe obesity due to excess calories without serious comorbidity with body mass index (BMI) of 45.0 to 49.9 in adult (HCC); RUQ discomfort Social History Tobacco Use Types Packs/Day Years Used Date Smoking Tobacco: Former Cigarettes 1.3 13 0 11/01/2001 - 11/01/2014 Smokeless Tobacco: Never Alcohol Use Standard Drinks/Week Comments No 0 (1 standard drink = 0.6 oz pur e alcohol) AUDIT-C Answer Date Recorded Q1: How often do you have a drink containing alc ohol? Never 10/06/2021 Average Number of Drinks Not on file 021 Q3: How often do you have si x or more drinks on one occasion? Never 10/06/2021 PHQ-2 Answer Date Recorded PHQ-2 Total Score (If total score is 3 or more points, staff should administer the PHQ-9) 0 06/16/2023 Education Answer Date Recorded What is the highest level of school you have completed or the highest degree you have received? 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 [employer] Gender Identity Not on file Sexual Orientation Not on file Occupation Industry Job Start Date Job End Date [employer] Not on file Not on file Not on file documented as of this encounter Last Filed Vital Signs Vital Sign Reading Time Taken Comments Blood Pressure 130/78 06/16/2023 2:06 PM CDT Pulse 115 06/16/2023 2:06 PM CDT Temperature 36.7 ??C (98.1 ??F) 06/16/2023 2:06 PM CD T Respiratory Rate - - Oxygen Saturation 98% 06/16/2023 2:06 PM CDT Inhaled Oxygen Concentration - - Weight 129.7 kg (286 lb) 06/16/2023 2:06 PM CDT Height 170.2 cm (5' 7 ) 06/16/2023 2:06 PM CDT Body Mass Index 44.79 06/16/2023 2:06 PM CDT documented in this encounter Patient Instructions * Patient Instructions* Trenton Lomeli MD - 06/16/2023 2:15 PM CDT Did recommend furthering workup for POTS (tilt table) Continue current regimen Excellent work on the lipids! Look into citrus bergomot Will get ultrasound of gall bladder first, as it could be consistent with symptoms. Will consider also again checking into carcinoid Thanks for coming in today! My medical assistants and I are thankful you have trusted us with your care, and hope that you received EXCELLENT care today! Please do not hesitate to call if you have any questions or concerns at [phone]. You may receive a phone call, text, MYCHART message, or e-mail asking about your care today. We would love to hear your feedback on how EXCELLENT your care wastoday! Wishing you better health, always. Dr. Lomeli * Attachments The following attachments cannot be sent through Care Everywhere. * DASH Eating Plan (General Information) (Danish) documented in this encounter Progress Notes * Trenton Lomeli MD - 06/16/2023 2:15 PM CDT Images from the original note were not included. Subjective/Objective Patient ID: Alia Fabian is a 32 y.o. female. Chief Complaint Follow-up (Pt is here to f/u from cardiology on POTS dx and imaging. ) She was to get the tilt-table test, but Alia got nervous about it so has declined. POTS not confirmed. TTE was performed last month as well, and was normal. She never took the Crestor, but she was able to imprvoe things with diet, exercise, etc, when her gyne rechecked the lipid panel in April. Hypertension This is a chronic problem. The problem is controlled. Associated symptoms include anxiety and malaise/fatigue. Pertinent negatives include no blurred vision, chest pain, headaches, peripheral edema or shortness of breath. Risk factors for coronary artery disease include obesity. Past treatments include nothing. Compliance problems include medication cost, exercise and diet. There is no history ofchronic renal disease. Hyperlipidemia This is a chronic problem. Exacerbating diseases include obesity. She has no history of chronic renal disease, diabetes, hypothyroidism or liver disease. Factors aggravating her hyperlipidemia include fatty foods. Pertinent negatives include no chest pain or shortness of breath. She is currently onno antihyperlipidemic treatment. Compliance problems include adherence to exercise and adherence todiet. Current Outpatient Medications: cannabidiol, CBD, (EPIDIOLEX) 100 mg/mL solution, Take 5 mg/kg by mouth nightly as needed, Disp: , Rfl: hydrOXYzine (ATARAX) 50 mg tablet, Take 1 tablet (50 mg total) by mouth every 6 (six) hours as needed, Disp: , Rfl: multivitamin capsule, Take 1 capsule by mouth daily, Disp: , Rfl: BIOTIN ORAL, Take by mouth (Patient not taking: Reported on 06/16/2023), Disp: , Rfl: Review of Systems Constitutional: Positive for malaise/fatigue. Negative for chills, fatigue and fever. Eyes: Negative for blurred vision. Respiratory: Negative for shortness of breath. Cardiovascular: Negative for chest pain. Neurological: Positive for light-headedness. Negative for syncope, facial asymmetry, speech difficulty, weakness and headaches. Psychiatric/Behavioral: Negative. BP 130/78 (BP Location: Left arm, Patient Position: Sitting) Pulse 115 Temp 36.7 ??C (98.1 ??F)(Oral) Ht 170.2 cm (5' 7 ) Wt 129.7 kg (286 lb) SpO2 98% BMI 44.79 kg/m?? Physical Exam Vitals reviewed. Constitutional: Appearance: She is morbidly obese. Cardiovascular: Rate and Rhythm: Normal rate and regular rhythm. Heart sounds: No murmur heard. No friction rub. No gallop. Pulmonary: Breath sounds: No wheezing, rhonchi or rales. Neurological: Mental Status: She is alert and oriented to person, place, and time. Mental status is at baseline. Psychiatric: Mood and Affect: Mood normal. No visits with results within 1 Month(s) from this visit. Latest known visit with results is: Hospital Outpatient Visit on 05/12/2023 Component Date Value Ref Range Status LV EF 05/12/2023 69 % Final Assessment/Plan Diagnoses and all orders for this visit: Essential hypertension (Primary) Comments: BP borderline, but better at home discussed DASH Orders: - CBC with auto differential; Future - Comprehensive metabolic panel; Future - TSH reflex to free T4; Future Hypercholesterolemia Comments: improved nicely with lifestyle modification Crestor never started, will hold off on refilling Orders: - Lipid panel; Future Class 3 severe obesity due to excess calories without serious comorbidity with body mass index (BMI) of 45.0 to 49.9 in adult (HCC) - Vitamin D 25 hydroxy; Future Trenton Lomeli MD This office note has been partially dictated using Mevvy software, and as a result portions of the record may have been created with this software. Occasional wrong-word or '[id number]' substitutions may have occurred due to the inherent limitations of voice recognition software. Read the chartcarefully and recognize, using context, where substitutions have occurred. documented in this encounter Plan of Treatment Not on file documented as of this encounter Results * US RUQ (08/06/2023 1:51 PM CDT) Anatomical Region Laterality Modality Abdomen N/A Ultrasound 08/06/2023 9:01 PM CDT Narrative 08/06/2023 9:03 PM CDT EXAM DESCRIPTION: ?? US RUQ REASON FOR STUDY: ?? Pressure RUQ ?? TECHNIQUE: Ultrasound of the right upper quadrant of the abdomen was performed with grayscale and color doppler. COMPARISON: ?? None FINDINGS: PANCREAS: ?? Visualized portions of the pancreas are within normal limits. Portions of the pancreatic body and tail are obscured due to bowel gas. LIVER: ?? The liver appears normal in echotexture and echogenicity. No focal lesion identified. The main portal vein is patent with antegrade flow. GALLBLADDER: ?? The gallbladder appears unremarkable. No cholelithiasis. ??No gallbladder wall thickening or pericholecystic fluid. No positive sonographic [place] sign reported. ?? BILIARY: ?? There is no intrahepatic or extrahepatic biliary ductal dilatation. Common bile duct measures ??0.4 cm ??in diameter. RIGHT KIDNEY: ?? Normal size. Normal echogenicity. No solid mass or cyst. ??No hydronephrosis. ??Measures ??12.7 ??cm in length. OTHER: ?? No other significant findings. IMPRESSION: ?? No acute abnormality. THIS IS AN ELECTRONICALLY VERIFIED FINAL REPORT 08/06/2023 9:03 PM - Electronically signed by ??Rosalva Patino M.D. QX D: ??08/06/2023 9:03 PM T: Report ID: [id number] Reading Location: ??[id number] Procedure Note Rosalva Patino MD - 08/06/2023 EXAM DESCRIPTION: US RUQ REASON FOR STUDY: Pressure RUQ TECHNIQUE: Ultrasound of the right upper quadrant of the abdomen wasperformed with grayscale and color doppler. COMPARISON: None FINDINGS: PANCREAS: Visualized portions of the pancreas are withinnormal limits. Portions of the pancreatic body and tail are obscured due to bowel gas. LIVER: The liver appears normal in echotexture and echogenicity. Nofocal lesion identified. The main portal vein is patent with antegrade flow. GALLBLADDER: The gallbladder appears unremarkable. No cholelithiasis.No gallbladder wall thickening or pericholecystic fluid. No positivesonographic [place] sign reported. BILIARY: There is no intrahepatic or extrahepatic biliary ductaldilatation. Common bile duct measures 0.4 cm in diameter. RIGHT KIDNEY: Normal size. Normal echogenicity. No solid mass or cyst.No hydronephrosis. Measures 12.7 cm in length. OTHER: No other significant findings. IMPRESSION: No acute abnormality. THIS IS AN ELECTRONICALLY VERIFIED FINAL REPORT 08/06/2023 9:03 PM - Electronically signed by Rosalva Patino M.D. QX T: Report ID: [id number] Reading Location: [id number] us Trenton Lomeli MD IMG US PROCEDURES Final Res ult documented in this encounter Visit Diagnoses Diagnosis Essential hypertension- Primary Unspecified essential hypertension Hypercholesterolemia Pure hypercholesterolemia Class 3 severe obesity due to excess calories without serious comorbidity with body mass index (BMI) of 45.0 to 49.9 in adult (HCC) RUQ discomfort Class 3 severe obesity due to excess calories without serious comorbidity with body mass index (BMI) of 45.0 to 49.9 in adult (HCC) RUQ discomfort documented in this encounter Discontinued Medications Medication Sig Discontinue Reason Start Date End Da te Lactobacillus acidophilus (PROBIOTIC ORAL) Take by mouth Therapy completed 06/16/2023 rosuvastatin (Crestor) 20 mg tabletIndications:Mixed hyperlipidemia Take 1 tablet (20 mg total) by mouth daily Therapy completed 11/10/2022 06/16/2023 documented as of this encounter Care Teams Banana Loader Relationship Specialty Start Date End Date Trenton Lomeli MD PCP - General Family Medicine 10/06/21 Neelima Velazquez MD [address] [address] Consulting Physician Gynecology 10/06/21 Maura Wilson MD [address] [place] [address] Consulting Physician Cardiology 06/16/23 documented as of this encounter
--- OUTSIDE RECORDS SUMMARY | 2024-11-04 23:54 | XMS_ITS | Referral Summary ---
Author Organization [facility] Address [address] [place] [address] Care Team Providers Care Buildings Painter Name Role Phone Trenton Lomeli MD Primary Care Provider [phone] Neelima Velazquez MD Unavailable [phone] Maura Wilson MD Unavailable [phone] Encounters Date Type Department Care Team Description 11/03/2024 10:04 PM AIRPORT DUTY MANAGER - 11/04/2024 12:14 AM [facility] Emergency [facility] Emergency Department [address] [id number] Job James MD Sleep disturbance (Primary Dx); Chronic abdominal pain Discharge Disposition: Discharge to home or self care 11/03/2024 Orders Only [facility] Primary Care at [address] [phone] Trenton Lomeli MD 11/03/2024 Nurse Triage [facility] Primary Care at [address] [phone] Trenton Lomeli MD 11/03/2024 Nurse Triage [facility] Primary Care at [address] [phone] Angela Kumar RN 11/02/2024 1:41 PM AIRPORT DUTY MANAGER - 11/02/2024 11:59 PM AIRPORT DUTY MANAGER Hospital Encounter [address] [address] [place] [address] Diarrhea of presumed infectious origin Discharge Disposition: Discharge to home or self care 11/02/2024 3:00 PM AIRPORT DUTY MANAGER Lab [facility] Medical [facility] Outpatient Lab at [address] [phone] 11/02/2024 1:45 PM AIRPORT DUTY MANAGER Lab [facility] Outpatient Lab at [address] [address] Hypercholesterolemia (Primary Dx) 11/02/2024 1:15 PM AIRPORT DUTY MANAGER Office Visit [facility] Primary Care at [address] [address] Trenton Lomeli MD Diarrhea of presumed infectious origin (Primary Dx) 10/30/2024 Nurse Triage [facility] Primary Care at [address] [phone] Trenton Lomeli MD 10/30/2024 Orders Only [facility] Primary Care at [address] [address] Provider, MD Misael from Last 3 Months Allergies Active Allergy Reactions Criticality Noted Date Comments Aripiprazole Muscle pain Medium 05/12/2017 Amoxicillin-Pot Clavulanate Other (See comments) Low 10/03/2022 Caused C-diff Lamotrigine Rash Medium 05/12/2017 Paroxetine Pseudoephedrine Itching Low 05/12/2017 Serotonin Mental status changes Low 05/12/2017 Topiramate Dystonia High 05/12/2017 Medications cannabidiol, CBD, (EPIDIOLEX) 100 mg/mL solution Take 5 mg/kg by mouth nightly as needed Active multivitamin capsule Take 1 capsule by mouth daily Active BIOTIN ORAL Take by mouth Active hydrOXYzine (ATARAX) 50 mg tablet Take 1 tablet (50 mg total) by mouth every 6 (six) hours as needed 2 Active diphenoxylate- atropine (LOMOTIL) 2.5-0.025 mg per tabletIndicati ons:diarrhea Take 1 tablet by mouth 2 (two) times a day as needed for diarrhea 30 tablet 5 Active dicyclomine (BENTYL) 10 mg capsule Take 1 capsule (10 mg total) by mouth 4 (four) times a day before meals and nightly 120 capsule 5 026 Active ondansetron (Zofran) 4 mg tablet Take 1 tablet (4 mg total) by mouth every 8 (eight) hours as needed for nausea or vomiting 20 tablet 1 5 Active metoprolol tartrate (LOPRESSOR) 25 mg immediate release tablet Take 0.5 tablets (12.5 mg total) by mouth 2 (two) times a day as needed (BP above 140/90) 30 tablet 5 Active temazepam (RESTORIL) 15 mg capsuleIndicat ions:Insomnia Take 1 capsule (15 mg total) by mouth nightly as needed for sleep for up to 20 days 20 capsule 5 025 Active dicyclomine (BENTYL) 10 mg capsule 5 025 Discontinued Active Problems Problem Noted Date Diagnosed Date Hypercholesterolemia 06/16/2023 Morbid (severe) obesity due to excess calories 0 11/09/2022 Assessment & Plan (11/09/2022 4:02 PM AIRPORT DUTY MANAGER): BMI Follow-up includes: nutrition counseling, exercise counseling and education provided. Body mass index (BMI) 45.0-49.9, adult 3 Well adult exam 10/08/2021 Assessment & Plan (11/10/2022 2:28 PM AIRPORT DUTY MANAGER): A(n) yearly well adult visit has been performed today. Alia Fabian is not up to date on screening tests. She is in need of Cervical cancer screening- she sees gyne. She is not up to date on needed preventative vaccinations; She is in need of Tdap/Td. We discussed healthy lifestyle habits, educational material has been given. Medications reviewed, changes documented as per the medical record and discussed with patient along with risks vs benefits. discussed adequate intake of calcium and vitamin D additional lab tests per orders return annually or prn Assessment & Plan (10/08/2021 2:57 PM AIRPORT DUTY MANAGER): A initial well visit to establish care has been performed today. Alia Fabian is up to date on screening tests. She is in need of None- no screening indicated at this time- these have been ordered. She is not up to date on needed preventative vaccinations; She is in need of Tdap/Td. These have been ordered/arranged unless otherwise indicated. PCOS (polycystic ovarian syndrome) 10/06/2021 Paresthesia 09/16/2017 Weakness 09/16/2017 Vestibular migraine 05/12/2017 Hereditary essential tremor 05/12/2017 Irritable bowel syndrome with diarrhea 7 Paroxysmal nocturnal dyspnea 10/02/2016 Overview (02/04/2017): Paroxysmal nocturnal dyspnea Essential hypertension 10/02/2016 Overview (02/04/2017): Essential hypertension Palpitations 10/02/2016 Overview (02/04/2017): Palpitations Snoring 10/02/2016 Overview (02/05/2017): Snoring Atypical chest pain 10/02/2016 Overview (02/05/2017): Atypical chest pain Depression 10/02/2016 Overview (02/05/2017): Depression, unspecified depression type Body mass index 40+ - severely obese 10/02/2016 Overview (02/05/2017): Morbid obesity with BMI of 40.0-44.9, adult Anxiety disorder 10/02/2016 Overview (02/05/2017): Anxiety disorder, unspecified type Immunizations Name Administration Dates Next Due Influenza, Unspecified 11/02/2024(Deferr ed: Patient Refused),06/16/2023(Deferred: Patient Refused),06/01/2023(Deferred: Patient Refused),11/01/2022(Deferred: Patient Refused),11/01/2022(Deferred: Patient Refused),08/10/2022(Deferred: Patient Refused),10/06/2021(Deferred: Patient Refused),09/15/2020(Deferred: Patient Refused) Social History Tobacco Use Types Packs/Day Years [...] points, staff should administer the PHQ-9) 0 11/02/2024 Personal Safety Answer Date Recorded Have you ever been in or are you currently in a harmful physical or emotional relationship or is someone making you feel afraid or unsafe? Denies 11/03/2024 Education Answer Date Recorded What is the highest level of school you have completed or the highest degree you have received? 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 Not on file Not on file Not on file Last Filed Vital Signs Vital Sign Reading Time Taken Comments Blood Pressure 130/66 11/04/2024 12:00 AM AIRPORT DUTY MANAGER Pulse 64 11/04/2024 12:00 AM AIRPORT DUTY MANAGER Temperature 36.8 ??C (98.2 ??F) 11/03/2024 10:[address] Respiratory Rate 23 11/04/2024 12:00 AM AIRPORT DUTY MANAGER Oxygen Saturation 99% 11/04/2024 12:00 AM AIRPORT DUTY MANAGER Inhaled Oxygen Concentration - - Weight 119.3 kg (263 lb) 11/03/2024 6:29 PM AIRPORT DUTY MANAGER Height 170.2 cm (5' 7 ) 11/03/2024 6:29 PM AIRPORT DUTY MANAGER Body Mass Index 41.19 11/03/2024 6:29 PM AIRPORT DUTY MANAGER Plan of Treatment Not on file Procedures Procedure Name Priority Date/Time Associated Diagnosis Comments ECG 12-LEAD Routine 11/03/2024 11:04 [address] HEAD WO CONTRAST ED 11/03/2024 1 0:53 PM AIRPORT DUTY MANAGER MAGNESIUM Routine 11/03/2024 10:46 PM AIRPORT DUTY MANAGER THYROID FUNCTION CASCADE Add-On 11/03/2024 10:46 PM AIRPORT DUTY MANAGER ERYTHROCYTE SEDIMENTATION RATE STAT 11/03/2024 10:46 PM AIRPORT DUTY MANAGER CREATINE KINASE (CK), TOTAL STAT 11/03/2024 10:46 PM AIRPORT DUTY MANAGER PRO B-TYPE NATRIURETIC PEPTIDE STAT 11/03/2024 10:46 PM AIRPORT DUTY MANAGER CRP (ACUTE PHASE) STAT 11/03/2024 10: 46 PM AIRPORT DUTY MANAGER TROPONIN T HIGH-SENSITIVITY 2-HOUR Timed 11/03/2024 10:46 PM AIRPORT DUTY MANAGER EGFR STAT 11/03/2024 7:40 PM AIRPORT DUTY MANAGER DIFFERENTIAL AUTO STAT 11/03/2024 7:4 0 PM AIRPORT DUTY MANAGER TROPONIN T HIGH-SENSITIVITY SERIES (BASELINE, 2HR, 4HR, 6HR) STAT 11/03/2024 7:40 PM AIRPORT DUTY MANAGER COMPREHENSIVE METABOLIC PANEL STAT 11/03/2024 7:40 PM AIRPORT DUTY MANAGER CBC WITH AUTO DIFFERENTIAL STAT 11/03/2024 7:40 PM AIRPORT DUTY MANAGER XR CHEST 1 VIEW ED 11/03/2024 7:17 PM AIRPORT DUTY MANAGER ECG 12-LEAD STAT 11/03/2024 6:34 PM AIRPORT DUTY MANAGER CRYPTOSPORIDIUM AND GIARDIA ANTIGEN ASSAY Routine 11/02/2024 1:41 PM AIRPORT DUTY MANAGER Diarrhea of presumed infectious origin HEPATITIS A ANTIBODY, IGM Routine 11/02/2024 1:41 PM AIRPORT DUTY MANAGER Diarrhea of presumed infectious origin CT ABDOMEN PELVIS W CONTRAST Schedule Routine, Read Routine (OP Routine) 10/28/2024 1:10 PM AIRPORT DUTY MANAGER PAP SMEAR Routine 03/19/2021 from Last 3 Months or Most Recently Relevant to Health Maintenance Results * ECG 12 lead (11/03/2024 11:04 PM AIRPORT DUTY MANAGER) 11/03/2024 11:0 4 PM AIRPORT DUTY MANAGER Narrative [facility] - 11/04/2024 2:30 PM AIRPORT DUTY MANAGER Vent Rate: 67 bpm RR Interval: 892 msec NV Interval: 142 msec QRS Duration: 89 msec QT Interval: 413 msec QTC Interval: 428 msec P-R-T Independence: 25 - 0 - 21 degrees IMPRESSION: SINUS RHYTHM MODERATE VOLTAGE CRITERIA FOR LVH, CONSIDER NORMAL VARIANT ??[MEETS CRITERIA IN ONE OF: R(aVL), S(V1), R(V5), R(V5/V6)+S(V1)] BORDERLINE ECG NO CHANGE FROM PREVIOUS TRACING NOTED Electronically Signed By: Nithin Vaca MD us Job James MD ECG ORDERABLES Final Resul t [facility] [employer] [facility] * CT Head WO Contrast (11/03/2024 10:53 PM AIRPORT DUTY MANAGER) Anatomical Region Laterality Modality Head and Neck N/A Computed Tomogra phy 11/03/2024 10:5 6 PM AIRPORT DUTY MANAGER Narrative 11/03/2024 10:58 PM AIRPORT DUTY MANAGER EXAM DESCRIPTION: CT HEAD WO CONTRAST REASON FOR STUDY: Headache, no red flags ?? Patient complains of chest pain, shortness of breath and facial spasms x 1 week. ?? TECHNIQUE: Axial images acquired through the brain without intravenous contrast. ??Images stored on PACS. ?? Automated exposure control was used as a dose optimization technique for this examination. COMPARISON: None available FINDINGS: BRAIN: ?? No hemorrhage, edema or mass effect. No recent infarct. ?The farr-white matter differentiation is preserved. ??No cerebral or cerebellar volume loss. ?Normal size and morphology of the ventricular system. ??No acute intraventricular hemorrhage. ??Basal cisterns are patent. ??No midline shift. EXTRA-AXIAL SPACES: ?? No fluid collections. No masses. CALVARIUM: ?? No fracture. SINUSES/MASTOIDS: Mild mucosal thickening of the right maxillary sinus. ?? Otherwise, ??no fluid or mucosal thickening. ORBITS: ?? No significant abnormality. OTHER: ?? No other significant abnormality. IMPRESSION: No acute intracranial findings. THIS IS AN ELECTRONICALLY VERIFIED FINAL REPORT 11/03/2024 10:58 PM - Electronically signed by ??Mike Kirk M.D. AT: AT D: ??11/03/2024 10:58 PM T: ??11/03/2024 10:58 PM Report ID: [id number] Reading Location: ??[id number] Procedure Note Mike Kirk MD - 11/03/2024 EXAM DESCRIPTION: CT HEAD WO CONTRAST REASON FOR STUDY: Headache, no red flags Patient complains of chest pain, shortness of breath and facial spasms x 1 week. TECHNIQUE: Axial images acquired through the brain without intravenous contrast. Images stored on PACS. Automated exposure control was used asa dose optimization technique for this examination. COMPARISON: None available FINDINGS: BRAIN: No hemorrhage, edema or mass effect. No recent infarct. The farr-white matter differentiation is preserved. No cerebral or cerebellar volume loss. Normal size and morphology of the ventricular system. No acute intraventricular hemorrhage. Basal cisterns are patent. No midline shift. EXTRA-AXIAL SPACES: No fluid collections. No masses. CALVARIUM: No fracture. SINUSES/MASTOIDS: Mild mucosal thickening of the right maxillary sinus. Otherwise, no fluid or mucosal thickening. ORBITS: No significant abnormality. OTHER: No other significant abnormality. IMPRESSION: No acute intracranial findings. THIS IS AN ELECTRONICALLY VERIFIED FINAL REPORT 11/03/2024 10:58 PM - Electronically signed by Mike Kirk M.D. AT: AT Report ID: [id number] Reading Location: [id number] Job James MD IMG CT PROCEDURES Final Res ult * Troponin T high-sensitivity 2-hour (11/03/2024 10:46 PM AIRPORT DUTY MANAGER) Pathologist [facility] Emergency Department Trop T hs 7 <=14 ng/L Comment: Interpretive Data For further hscTnT resources including the diagnostic algorithm and an aid in interpretation, copy and paste this link: https://nrl.testcatalog.org/show/hsTrop Current Interpretive Data last revised 2020. Trop T hs delta See Comment ng/L CE MAIRA SHAH ([place]) Comment:Inappropriate collec tion time to report a delta. Trop T hs pct delta See Comment % ARI SHAH ([place]) Comment:Inappropriate collec tion time to report a delta. Trop T hs interp See Comment C ROSITA SHAH ([place]) Comment:Inappropriate collec tion time to report a delta. Blood 11/03/2024 10:4 6 PM AIRPORT DUTY MANAGER 11/03/2024 10:50 PM AIRPORT DUTY MANAGER Job James MD LAB BLOOD ORDERABLES Final Result ARI SHAH ([place]) 1 [facility] Department [place] [address] * Pro B-type natriuretic peptide (11/03/2024 10:46 PM AIRPORT DUTY MANAGER) Pathologist [facility] Emergency Department NT-proBNP 51 <=300 pg/mL Comment: Interpretive Comments: A. Dyspnea in Acute Care Setting All Ages: ?< 300 pg/ml, acute heart failure unlikely. < 50 yrs: ?300 - 450 pg/ml, further investigation warranted. ? > 450 pg/ml, acute heart failure likely. 50 - 74 yrs: ? 300 - 900 pg/ml, further investigation warranted. ? > 900 pg/ml, acute heart failure likely . > or = 75 yrs: ? 450 - 1800 pg/ml, further investigation warranted. ? > 1800 pg/ml, acute heart failure likely. B. Non-acute Setting < 75 yrs ? < 125 pg/ml, rules out heart failure. ? > or = 125 pg/ml, further investigation warranted. > or = 75 yrs ?< 450 pg/ml, rules out heart failure. ? > or = 450 pg/ml, further investigation warranted. - Knowledge of each individual patient's NT-proBNP range may be more useful than using similar cut-points for every patient. Please note that marked elevations in NT-proBNP levels may be observed in state other than Left Ventricular Congestive Failure, including: acute coronary syndromes, right heart strain/failure (including pulmonary embolism and cor pulmonale), critical illness, renal failure, as well as advanced age. - References: 1. Minoo MCBRIDE et.al. Eur Heart J. 2006:27:330-337. 2. Liu RW, Magui AM. J. AM Sully Cardiol: Cardiovasc Imag. 2009;2: 216- 225. Interpretive Data Last Revised Date: 2018. Blood 11/03/2024 10:4 6 PM AIRPORT DUTY MANAGER 11/03/2024 10:50 PM AIRPORT DUTY MANAGER Job James MD LAB BLOOD ORDERABLES Edited Result - Final [facility] [place] 1 [facility] Department of Laboratories [place], [place] [id number] * Thyroid Function [place] (11/03/2024 10:46 PM AIRPORT DUTY MANAGER) TSH 1.44 0.30 - 4.20 mcIUnit/mL Blood 11/03/2024 10:4 6 PM AIRPORT DUTY MANAGER 11/03/2024 10:50 PM AIRPORT DUTY MANAGER Job James MD LAB BLOOD ORDERABLES Final Result ARI SHAH ([place]) 1 [facility] [place] [employer] [place] [address] * (ABNORMAL) Erythrocyte sedimentation rate (11/03/2024 10:46 PM AIRPORT DUTY MANAGER) Pathologist [facility] Emergency Department Erythrocyte sedimentation rate 29(H) 1 - 20 mm/hr Blood 11/03/2024 10:4 6 PM AIRPORT DUTY MANAGER 11/03/2024 10:50 PM AIRPORT DUTY MANAGER Job James MD LAB BLOOD ORDERABLES Final Result Performing Organization Address City/[facility]/ZIP Co de Phone Number ARI SHAH ([place]) 1 [facility] [place] [place] [address] * CRP (acute phase) (11/03/2024 10:46 PM AIRPORT DUTY MANAGER) [facility] CRP <3.0 <=10.0 mg/L Blood 11/03/2024 10:4 6 PM AIRPORT DUTY MANAGER 11/03/2024 10:50 PM AIRPORT DUTY MANAGER Job James MD LAB BLOOD ORDERABLES Final Result Performing Organization Address City/[facility]/ZIP Co de Phone Number ARI SHAH ([place]) 1 [facility] [place] [place] [address] * Magnesium (11/03/2024 10:46 PM AIRPORT DUTY MANAGER) [facility] Magnesium 1.8 1.4 - 2.5 mg/dL Blood 11/03/2024 10:4 6 PM AIRPORT DUTY MANAGER 11/03/2024 10:50 PM AIRPORT DUTY MANAGER Job James MD LAB BLOOD ORDERABLES Final Result ARI SHAH ([place]) 1 [facility] [place] [place] [address] * Creatine kinase (CK), total (11/03/2024 10:46 PM AIRPORT DUTY MANAGER) [facility] CK 69 30 - 200 Units/L Blood 11/03/2024 10:4 6 PM AIRPORT DUTY MANAGER 11/03/2024 10:50 PM AIRPORT DUTY MANAGER Job James MD LAB BLOOD ORDERABLES Final Result Performing Organization Address [facility] de Phone Number ARI SHAH ([place]) [address] [place] [address] [place] [place] [address] * Troponin T high-sensitivity series (baseline, 2hr, 4hr, 6hr) (11/03/2024 7:40 PM AIRPORT DUTY MANAGER) [facility] Trop T hs <6 <=14 ng/L Comment: Interpretive Data For further hscTnT resources including the diagnostic algorithm and an aid in interpretation, copy and paste this link: https://nrl.testcatalog.org/show/hsTrop Current Interpretive Data last revised 2020. Blood 11/03/2024 7:40 PM AIRPORT DUTY MANAGER 11/03/2024 7:42 PM AIRPORT DUTY MANAGER us Job James MD LAB BLOOD ORDERABLES Final Result Performing Organization Address [facility] de Phone Number ARI SHAH [place]) 1 [facility] [employer] [place] [address] * eGFR (11/03/2024 7:40 PM AIRPORT DUTY MANAGER) [facility] eGFR >90 >=60 mL/min/1. 73 m2 Comment: Interpretive Data Reference Interval Normal ?>/= 90 mL/min/1.73m2 Mildly decreased* ? 60 - 89 mL/min/1.73m2 Mildly to moderately decreased ?45 - 59 mL/min/1.73m2 Moderately to severely decreased ??30 - 44 mL/min/1.73m2 Severely decreased ?15 - 29 mL/min/1.73m2 Kidney Failure ?< 15 ??mL/min/1.73m2 *Relative to young adult level Estimated glomerular filtration rate is determined by the 2020 CKD-EPI equation recommended by the National Kidney Foundation (A Unifying Approach to GFR Estimation: Recommendations of the NKF-ASK Task Force on Reassessing the Inclusion of Race in Diagnosing Kidney Disease, JASN 2020). The CKD-EPI equation should not be used for patients with unstable renal function and has not been validated in children and those over 70. Current interpretive data was last reviewed 2021. Blood 11/03/2024 7:40 PM AIRPORT DUTY MANAGER 11/03/2024 7:42 PM AIRPORT DUTY MANAGER us Job James MD LAB BLOOD ORDERABLES Final Result [facility] ([place]) 1 [facility] Department [place] [address] * Differential, auto (11/03/2024 7:40 PM AIRPORT DUTY MANAGER) Neutrophil abs 4.3 1.5 - 6.5 K/cumm Imm gran abs 0.0 0.0 - 0.1 K/cumm [facility] ([place]) Lymphocyte abs 1.8 0.8 - 3.3 K/cumm [facility] ([place]) Monocyte abs 0.5 0.2 - 0.8 K/cumm [facility] ([place]) Eosinophil abs 0.1 0.0 - 0.5 K/cumm [facility] ([place]) Basophil abs 0.1 0.0 - 0.1 K/cumm [facility] ([place]) Neutrophil pct 63.7 % [facility] ([place]) Comment: Interpretive Data Percent cell count reference ranges are not reported, since discordance with absolute values may lead to misinterpretation of CBC data. Current Interpretive Data was last revised on 2018. Imm gran pct 0.3 % [facility] ([place]) Comment: Interpretive Data Percent cell count reference ranges are not reported, since discordance with absolute values may lead to misinterpretation of CBC data. Current Interpretive Data was last revised on 2018. Lymphocyte pct 26.9 % [facility] ([place]) Comment: Interpretive Data Percent cell count reference ranges are not reported, since discordance with absolute values may lead to misinterpretation of CBC data. Current Interpretive Data was last revised on 2018. Monocyte pct 7.5 % [facility] ([place]) Comment: Interpretive Data Percent cell count reference ranges are not reported, since discordance with absolute values may lead to misinterpretation of CBC data. Current Interpretive Data was last revised on 2018. Eosinophil pct 0.7 % [facility] ([place]) Comment: Interpretive Data Percent cell count reference ranges are not reported, since discordance with absolute values may lead to misinterpretation of CBC data. Current Interpretive Data was last revised on 2018. Basophil pct 0.9 % [facility] ([place]) Comment: Interpretive Data Percent cell count reference ranges are not reported, since discordance with absolute values may lead to misinterpretation of CBC data. Current Interpretive Data was last revised on 2018. Blood 11/03/2024 7:40 PM AIRPORT DUTY MANAGER 11/03/2024 7:42 PM AIRPORT DUTY MANAGER Job James MD LAB BLOOD ORDERABLES Final Result [facility] ([place]) 1 [facility] Department [place] [address] * CBC with auto differential (11/03/2024 7:40 PM AIRPORT DUTY MANAGER) WBC 6.8 3.8 - 9.9 K/cumm Hgb 12.9 11.9 - 15.5 g/dL [facility] ([place]) Hct 38.7 35.6 - 45.5 % [facility] ([place]) Plt 280 150 - 400 K/cumm [facility] ([place]) MPV 9.3 9.1 - 12.3 fL [facility] ([place]) RBC 4.41 3.90 - 5.20 M/cumm [facility] ([place]) MCV 87.8 81.3 - 96.4 fL [facility] ([place]) MCH 29.3 27.1 - 33.3 pg [facility] ([place]) MCHC 33.3 32.3 - 35.7 g/dL [facility] ([place]) RDW CV 12.3 11.1 - 14.9 % [facility] ([place]) RDW SD 39.8 35.7 - 48.1 fL [facility] ([place]) NRBC abs 0.00 0.00 - 0.01 K/cumm [facility] ([place]) Blood (Blood, Venous) 11/03/2024 7:40 PM AIRPORT DUTY MANAGER 11/03/2024 7:42 PM AIRPORT DUTY MANAGER Job James MD LAB BLOOD ORDERABLES Final Result [facility] ([place]) 1 [facility] Department [place] [address] * (ABNORMAL) Comprehensive metabolic panel (11/03/2024 7:40 PM AIRPORT DUTY MANAGER) Sodium 139 135 - 145 mmol/L Potassium, pl 3.4 3.3 - 4.9 mmol/L [facility] ([place]) Chloride 103 97 - 110 mmol/L [facility] ([place]) CO2 25 22 - 32 mmol/L [facility] ([place]) Anion gap 11 2 - 15 mmol/L [facility] ([facility]) BUN 4(L) 6 - 25 mg/dL [facility] ([place]) Creatinine 0.54(L) 0.60 - 1.10 mg/dL [facility] Glucose 104 70 - 199 mg/dL [facility] ([place]) Comment: Interpretive Data Fasting glucose >/= 126 mg/dl is diagnostic for diabetes. ?? Fasting is defined as no caloric intake for at least 8 hours. Fasting glucose between 100 mg/dl to 125 mg/dl is diagnostic of prediabetes. In a patient with classic symptoms of hyperglycemia or hyperglycemic crisis, a random glucose >/= 200 mg/dl is diagnostic for diabetes. In the absence of unequivocal hyperglycemia, results should be confirmed by repeat testing. The classification and Diagnosis of Diabetes Diabetes Care 2021; 46: S19-S40. Current interpretive data was last revised 2022. Calcium 9.3 8.5 - 10.3 mg/dL [facility] ([place]) Bilirubin, total 0.6 0.1 - 1.2 mg/dL [facility] ([place]) Protein, pl 7.4 6.5 - 8.5 g/dL [facility] ([place]) Albumin 4.6 3.5 - 5.0 g/dL [facility] ([place]) Alk phos 57 40 - 130 Units/L [facility] ([facility]) ALT 11 7 - 45 Units/L [facility] AST 16 10 - 45 Units/L [facility] Blood 11/03/2024 7:40 PM AIRPORT DUTY MANAGER 11/03/2024 7:42 PM AIRPORT DUTY MANAGER Job James MD LAB BLOOD ORDERABLES Final Result [facility] ([facility]) 1 [facility] Department [place] [address] * XR Chest 1 Vw Portable (if patient condition/safety warrant portable) (11/03/2024 7:17 PM AIRPORT DUTY MANAGER) Anatomical Region Laterality Modality Body, Chest N/A Computed Radiogr aphy 11/03/2024 7:23 PM AIRPORT DUTY MANAGER Narrative 11/03/2024 7:24 PM AIRPORT DUTY MANAGER EXAM DESCRIPTION: ?? XR CHEST 1 VIEW REASON FOR STUDY: ?? chest pain ?? Pt to triage via EMS for c/o chest pain, can't sleep or eat, my pulse is slow and I'm having facial spasms x 1 week . Pt also reports SOB intermittently today. Pt reports she woke up today and her pulse was 59, she sat up and everything went black. Pt ?? was laying on her bed so she does not believe she hit her head when she passed out. Pt denies any cardiac hx. ?? Former smoker ?? No surgery ??No hx of cancer ?? TECHNIQUE: ??Single-view COMPARISON: ??08/06/2017 FINDINGS: Central vascularity have normal caliber. ??Aortic arch well-defined left. Bony hypertrophic changes obscures the apices. IMPRESSION: No acute findings. THIS IS AN ELECTRONICALLY VERIFIED FINAL REPORT 11/03/2024 7:24 PM - Electronically signed by ??Paco Reyes M.D. RB: KESHA D: ??11/03/2024 7:24 PM T: ??11/03/2024 7:24 PM Report ID: [id number] Reading Location: ??[id number] Procedure Note Paco Reyes MD - 11/03/2024 EXAM DESCRIPTION: XR CHEST 1 VIEW REASON FOR STUDY: chest pain Pt to triage via EMS for c/o chest pain, can't sleep or eat, my pulse isslow and I'm having facial spasms x 1 week . Pt also reports SOBintermittently today. Pt reports she woke up today and her pulse was 59, she sat up and everything went black. Pt was laying on her bed so she does not believeshe hit her head when she passed out. Pt denies any cardiac hx. Formersmoker No surgery No hx of cancer TECHNIQUE: Single-view COMPARISON: 08/06/2017 FINDINGS: Central vascularity have normal caliber. Aortic arch well-definedleft. Bony hypertrophic changes obscures the apices. IMPRESSION: No acute findings. THIS IS AN ELECTRONICALLY VERIFIED FINAL REPORT 11/03/2024 7:24 PM - Electronically signed by Paco Reyes M.D. RB: KESHA Report ID: [id number] Reading Location: [id number] us Job James MD IMG XR PROCEDURES Final Res ult * ECG 12 lead (11/03/2024 6:34 PM AIRPORT DUTY MANAGER) 11/03/2024 6:34 PM AIRPORT DUTY MANAGER Narrative [facility] - 11/04/2024 2:30 PM AIRPORT DUTY MANAGER Vent Rate: 89 bpm RR Interval: 668 msec NV Interval: 116 msec QRS Duration: 88 msec QT Interval: 356 msec QTC Interval: 403 msec P-R-T Independence: 19 - 18 - 2 degrees IMPRESSION: SINUS RHYTHM WITH SHORT NV INTERVAL LOW QRS VOLTAGE IN PRECORDIAL LEADS ??[QRS DEFLECTION < 1.0 mV IN CHEST LEADS] POSSIBLE ANTERIOR MYOCARDIAL INFARCTION , OF INDETERMINATE AGE [30 ms Q WAVE IN V3/V4, OR R < 0.2 mV IN V4] ABNORMAL ECG Compared to prior EKG, heart rate has increased Electronically Signed By: Nithin Vaca MD us Job James MD ECG ORDERABLES Final Resul t [facility] * Hepatitis A antibody, IgM Blood (11/02/2024 1:41 PM AIRPORT DUTY MANAGER) Hep A IgM Nonreactive Nonreactive Comment: Interpretive Data: If Hep A IgM Ab is reported as Equivocal, a new sample should be drawn in two weeks for testing. Current interpretive data was last revised on 20. Blood 11/02/2024 1:41 PM AIRPORT DUTY MANAGER 11/02/2024 8:17 PM AIRPORT DUTY MANAGER us Trenton Lomeli MD LAB MICROBIOLOGY - GENERAL ORDERABLES Final Result Performing Organization Address City/[facility] Co de Phone Number [facility] [address] [address] Department [place] [address] * Cryptosporidium and Giardia antigen assay Stool (11/02/2024 1:41 PM AIRPORT DUTY MANAGER) Giardia Ag Negative Negative Comment:Testing performed by : [facility], [address] [place] [address], [place]., [address] Cryptosporidium Ag Negative Negative [facility] Comment: Interpretive data: Testing performed by the [facility] using an immunoassay that detects Cryptosporidium and Giardia antigens in stool specimens. ??If comprehensive examination for ova and parasites is required, please request Ova and Parasite Examination . Testing performed by: [facility], [address] [place]., [address] Stool 11/02/2024 1:41 PM AIRPORT DUTY MANAGER 11/02/2024 10:22 PM AIRPORT DUTY MANAGER Trenton Lomeli MD LAB MICROBIOLOGY - GENERAL ORDERABLES Final Result Performing Organization Address City/[place] [address] [address] Department [place] [address] * CT Abdomen Pelvis W Contrast (10/28/2024 1:10 PM AIRPORT DUTY MANAGER) Anatomical Region Laterality Modality Body N/A Computed Tomogra phy Historical Provider IMG CT PROCEDURES Final R esult * HM PAP SMEAR (03/19/2021) Historical Provider HEALTH MAINTENANCE Final Result from Last 3 Months or Most Recently Relevant to Health Maintenance [place] Care Teams Buildings Painter Relationship Specialty Start Date End Date Trenton Lomeli MD PCP - General Family Medicine 10/06/21 Neelima Velazquez MD [address] [address] Consulting Physician Gynecology 10/06/21 Maura Wilson MD [address] [place] [address] Consulting Physician Cardiology 06/16/23
--- OUTSIDE RECORDS SUMMARY | 2024-11-04 23:54 | XMS_ITS | Encounter Summary ---
Author Organization [facility] Healthcare Address [address] [place] [address] Care Team Providers Care Avionics Systems Integration Specialist Name Role Phone Trenton Lomeli MD Primary Care Provider [phone] Neelima Velazquez MD Unavailable [phone] Maura Wilson MD Unavailable [phone] Reason for Visit * Reason Onset Date Comments Recommendation Request 09/22/2023 Encounter Details Date Type Department Care Team (Late st Contact Info) Description 09/22/2023 Telephone [facility] Medical Group Primary Care at [address] [address] Trenton Lomeli MD [address] [place] [address] [address] [place] [address] Recommendation Request Social History Tobacco Use Types Packs/Day Years [...] on file Legal Sex Female 4:15 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 Specialty: Endocrinology Why does the patient want to go to this specialist? Prolactin is high, hyperthyroid symptoms Additional Comments/Concerns: none Does message need to be routed? Yes-Action Needed INSTALLATIONS SUPERVISOR documented in this encounter Plan of Treatment Not on file documented as of this encounter Visit Diagnoses Diagnosis Hyperthyroidism- Primary Thyrotoxicosis without mention of goiter or other cause, without mention of thyrotoxic crisis or storm Hyperprolactinemia (HCC) Other and unspecified anterior pituitary hyperfunction documented in this encounter Care Teams Avionics Systems Integration Specialist Relationship Specialty Start Date End Date Trenton Lomeli MD PCP - General Family Medicine 10/06/21 Neelima Velazquez MD [address] [address] Consulting Physician Gynecology 10/06/21 Maura Wilson MD [address] [place] [address] Consulting Physician Cardiology 06/16/23 documented as of this encounter
--- OUTSIDE RECORDS SUMMARY | 2024-11-04 23:54 | XMS_ITS | Encounter Summary ---
Author Organization [facility] Healthcare Address [address] [place] [address] Care Team Providers Care Supervisor Telephone Clerks Name Role Phone Trenton Lomeli MD Primary Care Provider [phone] Neelima Velazquez MD Unavailable [phone] Maura Wilson MD Unavailable [phone] Reason for Referral * Diagnostic Imaging (Routine) - Closed Specialty Diagnoses / Procedures Referred By Judi mars Referred To Contact Diagnoses Class 3 severe obesity due to excess calories without serious comorbidity with body mass index (BMI) of 45.0 to 49.9 in adult (HCC) RUQ discomfort Procedures Trenton Yepez MD [address] [facility] [address] [place] [address] Phone: tel: fax: External Order Referral ID Status Reason Start Date Expiration Date Visits Re quested Visits Authorized [id number] Closed 06/16/2023 07/15/2024 1 1 Reason for Visit * Diagnostic Imaging (Routine) - Closed Specialty Diagnoses / Procedures Referred By Judi mars Referred To Contact Diagnoses Class 3 severe obesity due to excess calories without serious comorbidity with body mass index (BMI) of 45.0 to 49.9 in adult (HCC) RUQ discomfort Procedures Trenton Yepez MD [address] [facility] [address] [place] [address] Phone: tel: fax: External Order Referral ID Status Reason Start Date Expiration Date Visits Re quested Visits Authorized [id number] Closed 06/16/2023 07/15/2024 1 1 Encounter Details Date Type Department Care Team (Latest Contact Info) Description 08/06/2023 12:40 PM CDT - 08/06/2023 11:59 PM CDT Hospital Encounter [address] [address] Class 3 severe obesity due to excess calories without serious comorbidity with body mass index (BMI) of 45.0 to 49.9 in adult (HCC); RUQ discomfort Discharge Disposition: Discharge to home or self care Social History Tobacco Use Types Packs/Day Years [...] on file Legal Sex Female 4:15 AM HEAD CAGER Gender Identity Not on file Sexual Orientation Not on file 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 Not on file Not on file documented as of this encounter Medications at Time of Discharge BIOTIN ORAL Take by mouth cannabidiol, CBD, (EPIDIOLEX) 100 mg/mL solution Take 5 mg/kg by mouth nightly as needed hydrOXYzine (ATARAX) 50 mg tablet Take 1 tablet (50 mg total) by mouth every 6 (six) hours as needed 07/31/2022 multivitamin capsule Take 1 capsule by mouth daily documented as of this encounter Discharge Disposition Disposition Code Departure Means Destination Discharge to home or self care documented in this encounter Plan of Treatment Not on file documented as of this encounter Procedures Procedure Name Priority Date/Time Associated Diagnosis Comments US RUQ Schedule Routine, Read Routine (OP Routine) 08/06/2023 1:51 PM CDT Class 3 severe obesity due to excess calories without serious comorbidity with body mass index (BMI) of 45.0 to 49.9 in adult (HCC) RUQ discomfort documented in this encounter Results * US RUQ (08/06/2023 [...] thickening or pericholecystic fluid. No positive sonographic Manteno sign reported. ?? BILIARY: ?? There is [...] 9:03 PM - Electronically signed by ??Rosalva AyalaX D: ??08/06/2023 9:03 PM T: Report ID: [id number] Reading Location: ??[id number] Procedure Note Rosalva Patino MD - 08/06/2023 [...] wall thickening or pericholecystic fluid. No positivesonographic Manteno sign reported. BILIARY: There is no intrahepatic [...] Rosalva Patino M.D. QX T: Report ID: [id number] Reading Location: [id number] us Trenton Lomeli MD IMG US PROCEDURES Final Res ult documented in this encounter Visit Diagnoses Diagnosis Class 3 severe obesity due to excess calories without serious comorbidity with body mass index (BMI) of 45.0 to 49.9 in adult (HCC) RUQ discomfort documented in this encounter Care Teams Supervisor Telephone Clerks Relationship Specialty Start Date End Date Trenton Lomeli MD PCP - General Family Medicine 10/06/21 Neelima Velazquez MD [address] [address] Consulting Physician Gynecology 10/06/21 Maura Wilson MD [address] [place] [address] Consulting Physician Cardiology 06/16/23 documented as of this encounter
--- OUTSIDE RECORDS SUMMARY | 2024-11-04 23:54 | XMS_ITS | Clinical Summary ---
Author Organization [facility] Address [address] [place] [address] Care Team Providers Care Quad Stayer Name Role Phone Trenton Lomeli MD Primary Care Provider [phone] Neelima Velazquez MD Unavailable [phone] Maura Wilson MD Unavailable [phone] Allergies Active Allergy Reactions Criticality Noted Date [...] 11/09/2022 Assessment & Plan (11/09/2022 4:02 PM ACCOUNTS RECEIVABLE ADMINISTRATOR): BMI Follow-up includes: nutrition counseling, exercise counseling and education provided. Body mass index (BMI) 45.0-49.9, adult 3 Well adult exam 10/08/2021 Assessment & Plan (11/10/2022 2:28 PM ACCOUNTS RECEIVABLE ADMINISTRATOR): A(n) yearly well adult visit has been [...] prn Assessment & Plan (10/08/2021 2:57 PM ACCOUNTS RECEIVABLE ADMINISTRATOR): A initial well visit to establish care [...] 10/02/2016 Overview (02/05/2017): Anxiety disorder, unspecified type Encounters Date Type Department Care Team Description 11/03/2024 10:04 PM ACCOUNTS RECEIVABLE ADMINISTRATOR - 11/04/2024 12:14 AM ACCOUNTS RECEIVABLE ADMINISTRATOR Emergency [facility] Emergency Department [address] [place] [address] Job James MD Sleep disturbance (Primary Dx); Chronic abdominal pain Discharge Disposition: Discharge to home or self care 11/03/2024 Orders Only [facility] Primary Care at [address] [phone] Trenton Lomeli MD 11/03/2024 Nurse Triage [facility] at [address] [phone] Trenton Lomeli MD 11/03/2024 Nurse Triage [facility] at [address] [phone] Angela Kumar RN 11/02/2024 3:00 PM ACCOUNTS RECEIVABLE ADMINISTRATOR Lab [facility] at [address] [phone] 11/02/2024 1:45 PM ACCOUNTS RECEIVABLE ADMINISTRATOR Lab [facility] at [address] [address] Hypercholesterolemia (Primary Dx) 11/02/2024 1:41 PM ACCOUNTS RECEIVABLE ADMINISTRATOR - 11/02/2024 11:59 PM ACCOUNTS RECEIVABLE ADMINISTRATOR Hospital Encounter [address] [address] Diarrhea of presumed infectious origin Discharge Disposition: Discharge to home or self care 11/02/2024 1:15 PM ACCOUNTS RECEIVABLE ADMINISTRATOR Office Visit [facility] at [address] [phone] Trenton Lomeli MD Diarrhea of presumed infectious origin (Primary Dx) 10/30/2024 Nurse Triage [facility] at [address] [phone] Trenton Lomeli MD 10/30/2024 Orders Only [facility] at [address] [phone] ProviderMisael MD from Last 3 Months Immunizations Name Administration Dates Next Due Influenza, Unspecified 11/02/2024(Deferr ed: Patient Refused),06/16/2023(Deferred: Patient Refused),06/01/2023(Deferred: Patient Refused),11/01/2022(Deferred: Patient Refused),11/01/2022(Deferred: Patient Refused),08/10/2022(Deferred: Patient Refused),10/06/2021(Deferred: Patient Refused),09/15/2020(Deferred: Patient Refused) Surgical History Surgery Date Site/Laterality Comments WISDOM TOOTH EXTRACTION Oral Surgery Tooth Extraction Stephen Tooth - (Added by TW Conv) Medical History Medical History Date Comments Hx Other Medical anxiety, depres kay, palpitations, htn, obesity, d; Comments: MAF 10/02/2016 - PCOS (polycystic ovarian syndrome) 10/06/2021 Anxiety and depression Morbid obesity (HCC) GERD (gastroesophageal reflux disease) Menstrual problem Family History Medical History Relation Name Comments Alcohol abuse Father Will No Known Problems Maternal Grandfather Diabetes type II Maternal Grandmother Fam berry history of type 2 diabetes mellitus - (Added by TW Conv) Alcohol abuse Mother Lay COPD Mother Lay Diabetes Mother Lay Diabetes type I Mother Lay Diabetes cliff litus type 1; /Family history of type 1 diabetes mellitus - (Added by TW Conv) Drug abuse Mother Lay Early Mother Lay Essential Tremor Mother Lay Family hist ory of benign essential tremor - (Added by TW Conv) Heart attack Mother Lay Heart failure Mother Lay Family history of congestive heart failure - (Added by TW Conv) Hypertension Mother Lay Family history of hypertension - (Added by TW Conv) Kidney disease Mother Lay Family histor y of kidney disease - (Added by TW Conv) Memory loss Mother Lay Mental illness Mother Lay Other Mother Lay Cardiac arrhyth mias; Stroke Mother Lay Transient ischemic attack Mother Lay Tr ansient ischemic attack; Vision loss Mother Lay Migraines Other Family history of migraine headaches - (Added by TW Conv) Cirrhosis Paternal Grandfather Dementia Paternal Grandmother Drug abuse Paternal Half-Brother No Known Problems Paternal Half-Sister Relation Name Status Comments Father Will Maternal Grandfather Maternal Grandmother Alive Mother Lay Other Paternal Grandfather Paternal Grandmother Alive Paternal Half-Brother Paternal Half-Sister Social History Tobacco Use Types Packs/Day Years [...] on file Legal Sex Female 4:15 AM ACCOUNTS RECEIVABLE ADMINISTRATOR Gender Identity Not on file Sexual Orientation Not on file 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 Not on file Not on file Not on file Obstetrics History Last Filed Vital Signs Vital Sign Reading Time Taken Comments Blood Pressure 130/66 11/04/2024 12:00 AM ACCOUNTS RECEIVABLE ADMINISTRATOR Pulse 64 11/04/2024 12:00 AM ACCOUNTS RECEIVABLE ADMINISTRATOR Temperature 36.8 ??C (98.2 ??F) 11/03/2024 10:[address] Respiratory Rate 23 11/04/2024 12:00 AM ACCOUNTS RECEIVABLE ADMINISTRATOR Oxygen Saturation 99% 11/04/2024 12:00 AM ACCOUNTS RECEIVABLE ADMINISTRATOR Inhaled Oxygen Concentration - - Weight 119.3 kg (263 lb) 11/03/2024 6:29 PM ACCOUNTS RECEIVABLE ADMINISTRATOR Height 170.2 cm (5' 7 ) 11/03/2024 6:29 PM ACCOUNTS RECEIVABLE ADMINISTRATOR Body Mass Index 41.19 11/03/2024 6:29 PM ACCOUNTS RECEIVABLE ADMINISTRATOR Plan of Treatment Health Maintenance Due Date Last Done Comments Hepatitis C Screening 1992 DTaP/Tdap/Td Vaccine (1 - Tdap) 2003 Hepatitis B Screening 2010 Cervical Cancer Screening 03/19/2022 03/19/2021 Regular Well Visit/Exam 18-64 11/09/2023 11/09/2022, 10/06/2021 Covid-19 Vaccine ( season) 2024 02/07/2021 Influenza Vaccine (#1) 2025 Postp oned from 07/02/2024 (Patient declined, but will receive in the future) Depression Screening 11/02/2025 11/02/2024, 06/16/2023, 11/09/2022, Additional history exists HPV Vaccines Aged Out No longer eligi ble based on patient's age to complete this topic Pneumococcal vaccine <65 Aged Out No longer eligible based on patient's age to complete this topic Varicella Vaccines Discontinued Procedures Procedure Name Priority Date/Time Associated Diagnosis Comments ECG 12-LEAD Routine 11/03/2024 11:04 PM ACCOUNTS RECEIVABLE ADMINISTRATOR CT HEAD WO CONTRAST ED 11/03/2024 1 0:53 PM ACCOUNTS RECEIVABLE ADMINISTRATOR MAGNESIUM Routine 11/03/2024 10:46 PM ACCOUNTS RECEIVABLE ADMINISTRATOR THYROID FUNCTION CASCADE Add-On 11/03/2024 10:46 PM ACCOUNTS RECEIVABLE ADMINISTRATOR ERYTHROCYTE SEDIMENTATION RATE STAT 11/03/2024 10:46 PM ACCOUNTS RECEIVABLE ADMINISTRATOR CREATINE KINASE (CK), TOTAL STAT 11/03/2024 10:46 PM ACCOUNTS RECEIVABLE ADMINISTRATOR PRO B-TYPE NATRIURETIC PEPTIDE STAT 11/03/2024 10:46 PM ACCOUNTS RECEIVABLE ADMINISTRATOR CRP (ACUTE PHASE) STAT 11/03/2024 10: 46 PM ACCOUNTS RECEIVABLE ADMINISTRATOR TROPONIN T HIGH-SENSITIVITY 2-HOUR Timed 11/03/2024 10:46 PM ACCOUNTS RECEIVABLE ADMINISTRATOR EGFR STAT 11/03/2024 7:40 PM ACCOUNTS RECEIVABLE ADMINISTRATOR DIFFERENTIAL AUTO STAT 11/03/2024 7:4 0 PM ACCOUNTS RECEIVABLE ADMINISTRATOR TROPONIN T HIGH-SENSITIVITY SERIES (BASELINE, 2HR, 4HR, 6HR) STAT 11/03/2024 7:40 PM ACCOUNTS RECEIVABLE ADMINISTRATOR COMPREHENSIVE METABOLIC PANEL STAT 11/03/2024 7:40 PM ACCOUNTS RECEIVABLE ADMINISTRATOR CBC WITH AUTO DIFFERENTIAL STAT 11/03/2024 7:40 PM ACCOUNTS RECEIVABLE ADMINISTRATOR XR CHEST 1 VIEW ED 11/03/2024 7:17 PM ACCOUNTS RECEIVABLE ADMINISTRATOR ECG 12-LEAD STAT 11/03/2024 6:34 PM ACCOUNTS RECEIVABLE ADMINISTRATOR CRYPTOSPORIDIUM AND GIARDIA ANTIGEN ASSAY Routine 11/02/2024 1:41 PM ACCOUNTS RECEIVABLE ADMINISTRATOR Diarrhea of presumed infectious origin HEPATITIS A ANTIBODY, IGM Routine 11/02/2024 1:41 PM ACCOUNTS RECEIVABLE ADMINISTRATOR Diarrhea of presumed infectious origin CT ABDOMEN PELVIS W CONTRAST Schedule Routine, Read Routine (OP Routine) 10/28/2024 1:10 PM ACCOUNTS RECEIVABLE ADMINISTRATOR HM PAP SMEAR Routine 03/19/2021 from Last 3 Months or Most Recently Relevant to Health Maintenance Results * ECG 12 lead (11/03/2024 11:04 PM ACCOUNTS RECEIVABLE ADMINISTRATOR) 11/03/2024 11:0 4 PM ACCOUNTS RECEIVABLE ADMINISTRATOR Narrative [facility] - 11/04/2024 2:30 PM ACCOUNTS RECEIVABLE ADMINISTRATOR Vent Rate: 67 bpm RR Interval: 892 msec VA Interval: 142 msec QRS Duration: 89 msec QT Interval: 413 msec QTC Interval: 428 msec P-R-T [place]: 25 - 0 - 21 degrees IMPRESSION: SINUS RHYTHM MODERATE VOLTAGE CRITERIA FOR LVH, CONSIDER NORMAL VARIANT ??[MEETS CRITERIA IN ONE OF: R(aVL), S(V1), R(V5), R(V5/V6)+S(V1)] BORDERLINE ECG NO CHANGE FROM PREVIOUS TRACING NOTED Electronically Signed By: Nithin Vaca MD us Job James MD ECG ORDERABLES Final Resul t [facility] * CT Head WO Contrast (11/03/2024 10:53 PM ACCOUNTS RECEIVABLE ADMINISTRATOR) Anatomical Region Laterality Modality Head and Neck N/A Computed Tomogra phy 11/03/2024 10:5 6 PM ACCOUNTS RECEIVABLE ADMINISTRATOR Narrative 11/03/2024 10:58 PM ACCOUNTS RECEIVABLE ADMINISTRATOR EXAM DESCRIPTION: CT HEAD WO CONTRAST REASON [...] PM T: ??11/03/2024 10:58 PM Report ID: [id number] Reading Location: ??[id number] Procedure Note Mike Kirk MD - 11/03/2024 [...] Mike Kirk M.D. AT: AT Report ID: [id number] Reading Location: [place] [address] us Job James MD IMG CT PROCEDURES Final Res ult * Troponin T high-sensitivity 2-hour (11/03/2024 10:46 PM ACCOUNTS RECEIVABLE ADMINISTRATOR) Trop T hs 7 <=14 ng/L Comment: Interpretive Data For further hscTnT resources including the diagnostic algorithm and an aid in interpretation, copy and paste this link: https://nrl.testcatalog.org/show/hsTrop Current Interpretive Data last revised 2020. Trop T hs delta See Comment ng/L CE MAIRA SHAH ([place]) Comment:Inappropriate collec tion time to report a delta. Trop T hs pct delta See Comment % ARI SHAH ([place]) Comment:Inappropriate collec tion time to report a delta. Trop T hs interp See Comment C ROSITA SHAH ([place]) Comment:Inappropriate collec tion time to report a delta. Blood 11/03/2024 10:4 6 PM ACCOUNTS RECEIVABLE ADMINISTRATOR 11/03/2024 10:50 PM ACCOUNTS RECEIVABLE ADMINISTRATOR Job James MD LAB BLOOD ORDERABLES Final Result ARI SHAH ([place]) 1 [facility] Department [place] [address] * Pro B-type natriuretic peptide (11/03/2024 10:46 PM ACCOUNTS RECEIVABLE ADMINISTRATOR) NT-proBNP 51 <=300 pg/mL Comment: Interpretive Comments: [...] Heart J. 2006:27:330-337. 2. Liu RW, Magui WILKINS. J. AM Sully Cardiol: Cardiovasc Imag. 2009;2: 216- 225. Interpretive Data Last Revised Date: 2018. Blood 11/03/2024 10:4 6 PM ACCOUNTS RECEIVABLE ADMINISTRATOR 11/03/2024 10:50 PM ACCOUNTS RECEIVABLE ADMINISTRATOR us Job James MD LAB BLOOD ORDERABLES Edited Result - Final [facility] [place] 1 [facility] [facility] [employer] [facility] Department of Laboratories [place], [place] [id number] * Thyroid Function Independence (11/03/2024 10:46 PM ACCOUNTS RECEIVABLE ADMINISTRATOR) TSH 1.44 0.30 - 4.20 mcIUnit/mL Blood 11/03/2024 10:4 6 PM ACCOUNTS RECEIVABLE ADMINISTRATOR 11/03/2024 10:50 PM ACCOUNTS RECEIVABLE ADMINISTRATOR Job James MD LAB BLOOD ORDERABLES Final Result ARI SHAH ([place]) 1 [facility] [place] [address] * (ABNORMAL) Erythrocyte sedimentation rate (11/03/2024 10:46 PM ACCOUNTS RECEIVABLE ADMINISTRATOR) Pathologist [facility] Erythrocyte sedimentation rate 29(H) 1 - 20 mm/hr Blood 11/03/2024 10:4 6 PM ACCOUNTS RECEIVABLE ADMINISTRATOR 11/03/2024 10:50 PM ACCOUNTS RECEIVABLE ADMINISTRATOR Job James MD LAB BLOOD ORDERABLES Final Result ARI SHAH ([place]) 1 [facility] [place] [address] * CRP (acute phase) (11/03/2024 10:46 PM ACCOUNTS RECEIVABLE ADMINISTRATOR) CRP <3.0 <=10.0 mg/L Blood 11/03/2024 10:4 6 PM ACCOUNTS RECEIVABLE ADMINISTRATOR 11/03/2024 10:50 PM ACCOUNTS RECEIVABLE ADMINISTRATOR Job James MD LAB BLOOD ORDERABLES Final Result ARI SHAH ([place]) 1 [facility] [place] [address] * Magnesium (11/03/2024 10:46 PM ACCOUNTS RECEIVABLE ADMINISTRATOR) Pathologist [facility] Magnesium 1.8 1.4 - 2.5 mg/dL Blood 11/03/2024 10:4 6 PM ACCOUNTS RECEIVABLE ADMINISTRATOR 11/03/2024 10:50 PM ACCOUNTS RECEIVABLE ADMINISTRATOR Job James MD LAB BLOOD ORDERABLES Final Result Performing Organization Address [facility] de Phone Number ARI SHAH ([place]) 1 [facility] [place] [address] * Creatine kinase (CK), total (11/03/2024 10:46 PM ACCOUNTS RECEIVABLE ADMINISTRATOR) Pathologist [facility] CK 69 30 - 200 Units/L Blood 11/03/2024 10:4 6 PM ACCOUNTS RECEIVABLE ADMINISTRATOR 11/03/2024 10:50 PM ACCOUNTS RECEIVABLE ADMINISTRATOR Job James MD LAB BLOOD ORDERABLES Final Result Performing Organization Address [facility] de Phone Number ARI SHAH ([place]) 1 [facility] [place] [address] * Troponin T high-sensitivity series (baseline, 2hr, 4hr, 6hr) (11/03/2024 7:40 PM ACCOUNTS RECEIVABLE ADMINISTRATOR) [facility] Trop T hs <6 <=14 ng/L Comment: Interpretive Data For further hscTnT resources including the diagnostic algorithm and an aid in interpretation, copy and paste this link: https://nrl.testcatalog.org/show/hsTrop Current Interpretive Data last revised 2020. Blood 11/03/2024 7:40 PM ACCOUNTS RECEIVABLE ADMINISTRATOR 11/03/2024 7:42 PM ACCOUNTS RECEIVABLE ADMINISTRATOR Job James MD LAB BLOOD ORDERABLES Final Result Performing Organization Address [facility] Co de Phone Number ARI SHAH ([place]) 1 [facility] [place] [address] * eGFR (11/03/2024 7:40 PM ACCOUNTS RECEIVABLE ADMINISTRATOR) [facility] eGFR >90 >=60 mL/min/1. 73 m2 Comment: [...] last reviewed 2021. Blood 11/03/2024 7:40 PM ACCOUNTS RECEIVABLE ADMINISTRATOR 11/03/2024 7:42 PM ACCOUNTS RECEIVABLE ADMINISTRATOR us Job James MD LAB BLOOD ORDERABLES Final Result ARI [facility] ([place]) 1 [facility] [place] [address] * Differential, auto (11/03/2024 7:40 PM ACCOUNTS RECEIVABLE ADMINISTRATOR) Neutrophil abs 4.3 1.5 - 6.5 K/cumm [...] revised on 2018. Blood 11/03/2024 7:40 PM ACCOUNTS RECEIVABLE ADMINISTRATOR 11/03/2024 7:42 PM ACCOUNTS RECEIVABLE ADMINISTRATOR us Job James MD LAB BLOOD ORDERABLES Final Result ARI ALYSSA (JD) 1 [facility] [place] [address] * CBC with auto differential (11/03/2024 7:40 PM ACCOUNTS RECEIVABLE ADMINISTRATOR) WBC 6.8 3.8 - 9.9 K/cumm Hgb 12.9 11.9 - 15.5 g/dL [facility] (JD) Hct 38.7 35.6 - 45.5 % [facility] ([facility]) Plt 280 150 - 400 K/cumm [facility] ([facility]) MPV 9.3 9.1 - 12.3 fL [facility] ([facility]) RBC 4.41 3.90 - 5.20 M/cumm [facility] ([facility]) MCV 87.8 81.3 - 96.4 fL [facility] ([facility]) MCH 29.3 27.1 - 33.3 pg [facility] ([facility]) MCHC 33.3 32.3 - 35.7 g/dL [facility] ([facility]) RDW CV 12.3 11.1 - 14.9 % [facility] ([facility]) RDW SD 39.8 35.7 - 48.1 fL [facility] ([facility]) NRBC abs 0.00 0.00 - 0.01 K/cumm [facility] ([facility] Blood (Blood, Venous) 11/03/2024 7:40 PM ACCOUNTS RECEIVABLE ADMINISTRATOR 11/03/2024 7:42 PM ACCOUNTS RECEIVABLE ADMINISTRATOR us Job James MD LAB BLOOD ORDERABLES Final Result ARI [facility] (JD) 1 [facility] Department [place] [address] * (ABNORMAL) Comprehensive metabolic panel (11/03/2024 7:40 PM ACCOUNTS RECEIVABLE ADMINISTRATOR) Sodium 139 135 - 145 mmol/L Potassium, pl 3.4 3.3 - 4.9 mmol/L [facility] ([facility] Chloride 103 97 - 110 mmol/L [facility] ([facility]) CO2 25 22 - 32 mmol/L [facility] ([facility] Anion gap 11 2 - 15 mmol/L [facility] ([facility]) BUN 4(L) 6 - 25 mg/dL [facility] ([facility]) Creatinine 0.54(L) 0.60 - 1.10 mg/dL [facility] (JD) Glucose 104 70 - 199 mg/dL [facility] ([facility]) Comment: Interpretive Data Fasting glucose [...] [facility] (JD) Blood 11/03/2024 7:40 PM ACCOUNTS RECEIVABLE ADMINISTRATOR 11/03/2024 7:42 PM ACCOUNTS RECEIVABLE ADMINISTRATOR Job James MD LAB BLOOD ORDERABLES Final Result ARI [facility] (JD) 1 [facility] Department [place] [address] * XR Chest 1 Vw Portable (if patient condition/safety warrant portable) (11/03/2024 7:17 PM ACCOUNTS RECEIVABLE ADMINISTRATOR) Anatomical Region Laterality Modality Body, Chest N/A Computed Radiogr aphy 11/03/2024 7:23 PM ACCOUNTS RECEIVABLE ADMINISTRATOR Narrative 11/03/2024 7:24 PM ACCOUNTS RECEIVABLE ADMINISTRATOR EXAM DESCRIPTION: ?? XR CHEST 1 VIEW [...] Electronically signed by ??Paco Reyes M.D. RB: RB D: ??11/03/2024 7:24 PM T: ??11/03/2024 7:24 PM Report ID: [id number] Reading Location: ??[id number] Procedure Note Paco Reyes MD - 11/03/2024 [...] 11/03/2024 7:24 PM - Electronically signed by Paoc Reyes M.D. RB: RB Report ID: [id number] Reading Location: [id number] us Job James MD IMG XR PROCEDURES Final Res ult * ECG 12 lead (11/03/2024 6:34 PM ACCOUNTS RECEIVABLE ADMINISTRATOR) 11/03/2024 6:34 PM ACCOUNTS RECEIVABLE ADMINISTRATOR Narrative [facility] - 11/04/2024 2:30 PM ACCOUNTS RECEIVABLE ADMINISTRATOR Vent Rate: 89 bpm RR Interval: 668 msec VA Interval: 116 msec QRS Duration: 88 msec QT Interval: 356 msec QTC Interval: 403 msec P-R-T [place]: 19 - 18 - 2 degrees IMPRESSION: SINUS RHYTHM WITH SHORT VA INTERVAL LOW QRS VOLTAGE IN PRECORDIAL LEADS ??[QRS DEFLECTION < 1.0 mV IN CHEST LEADS] POSSIBLE ANTERIOR MYOCARDIAL INFARCTION , OF INDETERMINATE AGE [30 ms Q WAVE IN V3/V4, OR R < 0.2 mV IN V4] ABNORMAL ECG Compared to prior EKG, heart rate has increased Electronically Signed By: Nithin Vaca MD us Job James MD ECG ORDERABLES Final Resul t Performing Organization Address City/[facility]/ZIP Co de Phone Number [facility] * Hepatitis A antibody, IgM Blood (11/02/2024 1:41 PM ACCOUNTS RECEIVABLE ADMINISTRATOR) Hep A IgM Nonreactive Nonreactive Comment: Interpretive Data: If Hep A IgM Ab is reported as Equivocal, a new sample should be drawn in two weeks for testing. Current interpretive data was last revised on 20. Blood 11/02/2024 1:41 PM ACCOUNTS RECEIVABLE ADMINISTRATOR 11/02/2024 8:17 PM ACCOUNTS RECEIVABLE ADMINISTRATOR us Trenton Lomeli MD LAB MICROBIOLOGY - GENERAL ORDERABLES Final Result ARI CLAY [address] [place] [address] * Cryptosporidium and Giardia antigen assay Stool (11/02/2024 1:41 PM ACCOUNTS RECEIVABLE ADMINISTRATOR) Giardia Ag Negative Negative Comment:Testing performed by : [facility], [address] [facility] [place]., [address] Cryptosporidium Ag Negative Negative ARI CLAY Comment: Interpretive data: Testing performed by the [facility] using an immunoassay that detects Cryptosporidium and Giardia antigens in stool specimens. ??If comprehensive examination for ova and parasites is required, please request Ova and Parasite Examination . Testing performed by: [facility], [address] [place]., [address] Stool 11/02/2024 1:41 PM ACCOUNTS RECEIVABLE ADMINISTRATOR 11/02/2024 10:22 PM ACCOUNTS RECEIVABLE ADMINISTRATOR Trenton Lomeli MD LAB MICROBIOLOGY - GENERAL ORDERABLES Final Result ARI [address] [facility] Department [place] [address] * CT Abdomen Pelvis W Contrast (10/28/2024 1:10 PM ACCOUNTS RECEIVABLE ADMINISTRATOR) Anatomical Region Laterality Modality Body N/A Computed Tomogra phy Historical Provider IMG CT PROCEDURES Final R esult * HM PAP SMEAR (03/19/2021) Historical Provider HEALTH MAINTENANCE Final Result from Last 3 Months or Most Recently Relevant to Health Maintenance [place] Care Teams Quad Stayer Relationship Specialty Start Date End Date Trenton Lomeli MD PCP - General Family Medicine 10/06/21 Neelima Velazquez MD [address] [address] Consulting Physician Gynecology 10/06/21 Maura Wilson MD [address] [place] [address] Consulting Physician Cardiology 06/16/23
--- OUTSIDE RECORDS SUMMARY | 2024-11-04 23:54 | XMS_ITS | Encounter Summary ---
Author Organization [facility] Address [address] [place] [address] Phone Care Team Providers Care Film Developing Machine Operator Name Role Phone Trenton Lomeli MD Primary Care Provider [phone] Neelima Velazquez MD Unavailable [phone] Maura Wilson MD Unavailable [phone] Encounter Details Date Type Department Care Team (Latest Contact Info) Description 12/08/2022 Orders Only [facility] Scanning, Provider Social History Tobacco Use Types Packs/Day Years [...] points, staff should administer the PHQ-9) 0 11/09/2022 Education Answer Date Recorded What is the highest level of school you have completed or the highest degree you have received? 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 Not on file Not on file Not on file documented as of this encounter Plan of Treatment Not on file documented as of this encounter Procedures Procedure Name Priority Date/Time Associated Diagnosis Comments CARDIOLOGY DOCUMENT SCAN 12/08/2022 documented in this encounter Results * CARDIOLOGY DOCUMENT SCAN (12/08/2022) Anatomical Region Laterality Modality Other us Provider Scanning CV CARDIAC SERVICES PROCEDURES Final Result documented in this encounter Visit Diagnoses Not on filedocumented in this encounter Care Teams Film Developing Machine Operator Relationship Specialty Start Date End Date Trenton Lomeli MD PCP - General Family Medicine 10/06/21 Neelima Velazquez MD [address] [address] Consulting Physician Gynecology 10/06/21 Maura Wilson MD [address] [place] [address] Consulting Physician Cardiology 06/16/23 documented as of this encounter
--- OUTSIDE RECORDS SUMMARY | 2024-11-04 23:54 | XMS_ITS | Encounter Summary ---
Author Organization [facility] Address [address] [place] [address] Phone Care Team Providers Care Transit Clerk Name Role Phone Trenton Lomeli MD Primary Care Provider [phone] Neelima Velazquez MD Unavailable [phone] Reason for Referral * Cardiology (Routine) - Closed Specialty Diagnoses / Procedures Referred By Contac t Referred To Contact Diagnoses POTS (postural orthostatic tachycardia syndrome) Procedures ECG 12 lead Emilie Wilson MD Phone: tel: fax: [facility] (All Locations) Referral ID Status Reason Start Date Expiration Date Visits Re quested Visits Authorized [id number] Closed 02/22/2023 03/23/2024 1 1 * Cardiology (Routine) - Closed Specialty Diagnoses / Procedures Referred By Contac t Referred To Contact Diagnoses POTS (postural orthostatic tachycardia syndrome) Procedures Transthoracic Echo (TTE) Complete W Doppler/CF Emilie Wilson MD Phone: tel: fax: [facility] (All Locations) Referral ID Status Reason Start Date Expiration Date Visits Re quested Visits Authorized [id number] Closed 02/19/2023 03/20/2024 1 1 Encounter Details Date Type Department Care Team (Late st Contact Info) Description 02/19/2023 3:30 PM CDT Office Visit [facility] Cardiology [address] 8[address] [place] [address] [place] [address] Emilie Wilson MD [address] [place] [address] POTS (postural orthostatic tachycardia syndrome) (Primary Dx) Social History Tobacco Use Types Packs/Day Years [...] on file Legal 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 Gender Identity Not on file Sexual Orientation Not on file 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 Not on file Not on file Not on file documented as of this encounter Last Filed Vital Signs Vital Sign Reading Time Taken Comments Blood Pressure 138/96 02/19/2023 3:31 PM CDT Pulse 105 02/19/2023 3:31 PM CDT Temperature - - Respiratory Rate - - Oxygen Saturation 98% 02/19/2023 3:31 PM CDT Inhaled Oxygen Concentration - - Weight 129.7 kg (286 lb) 02/19/2023 3:31 PM CDT Height 171.5 cm (5' 7.5 ) 02/19/2023 3:31 PM CDT Body Mass Index 44.13 02/19/2023 3:31 PM CDT documented in this encounter Patient Instructions * Patient Instructions* Emilie Wilson MD - 02/19/2023 3:30 PM CDT Call our office to schedule the TTT [phone] documented in this encounter Progress Notes * Ayaka Leonard MD - 02/19/2023 3:30 PM CDT Orthostatic Vital Signs: Supine: HR 96 bpm, BP 137/88 mmHg Standin minute: HR 110 bpm, BP 144/100 mmHg 3 minutes: HR 107 bpm, BP 137/98 mmHg 5 minutes: HR 116 bpm, BP 136/96 mmHg 10 minutes: HR 112 bpm, BP 128/85 mmHg Cosigned by Emilie Wilson MD at 03/05/2023 11:04 AM CDT * Emilie Wilson MD - 02/19/2023 12:00 AM CDT Date: 02/19/2023 TRENTON LOMELI MD [address] [place] [address] Patient Name: ALIA FABIAN Date of : 1990 Date of Visit: 02/19/[address] Lomeli: Chief Complaint: A 32-year-old female referred for evaluation of POTS. Problem List: 1. Possible postural tachycardia syndrome. a. Said to have 3 prior echocardiograms at [facility], most recently in 2018 with no recordsavailable. 2. Anxiety disorder. a. Previously seeing a psychiatrist. Currently seeing a therapist. 3. Coronavirus disease-August 2022. No hospitalizations. No oxygen. 4. History of serotonin syndrome. a. This occurred when she was at [facility] in [place], [place], associated with SSRI-hydroxyzine sleep medicine combination resulting in a seizure. 5. Elevated body mass index. 6. Hypertension associated with anxiety episodes. 7. Adverse drug reaction to metoprolol. a. Trial of 25 mg resulted in fatigue, feeling clammy, and unable to move. Interval History: Ms. Fabian presents with her friend today. She states she has had tachycardia upon standing off and on since 2015. She had her COVID vaccine on February 07 and states that she had symptoms after this. Shedid develop COVID in 2021, but her symptoms of tachycardia predated her COVID diagnosis. She statesthat up until June of last year, she was able to exercise by going to gym and working with a sap trainer. Her weight had gone down from 330 pounds to 260 pounds. Then, she had an increase in her symptoms and has not exercised and gained weight again. She tells me that she uses liquid IV when she wakes up feeling poorly, and it helps. She states in late December she was hospitalized for a week at [place] due to dehydration, felt better with IV fluids. She has had multiple EMS calls, most recently 01/29/2023, where she had hypertension as well as an elevated heart rate. Past Medical History: She reports hypertension. Social History: She is single, lives alone. Formerly smoked 2 packs a day but quit 9 years ago. She reports no alcohol and no recreational substances. She is currently not working and she completed high school. Review of Systems: Positive for rapid pulse upon standing, dizziness, sweating, cold hands and feet, low blood pressure, high blood pressure, weakness, fatigue. She also reports fatigue, lack of energy, night sweats, heart palpitations, irregular heartbeat, sleeping on 2 or more pillows, ringing in her ears, daytime s leepiness, nausea, vomiting, loss of appetite, following a vegetarian diet. She reports changes in the character of her stool, muscle pain, joint pain, back pain, itching, weakness of arms and legs, unsteady balance, mood changes, nervousness, numbness, headaches, and dizziness. All other review ofsystems are negative. Family History: Notable for a mother with sudden , stroke, heart attack, heart failure, diabetes, hypertension, and she is with kidney failure, heart disease, and CHF. Her father is not . Allergies: Sudafed-hives, SSRIs-multiple adverse reactions, adverse reaction to beta-blockers. Physical Examination: Vital Signs: Postural vital signs were obtained as follows: Supine 141/89, heart rate 95; 137/88, 96; 1 minute 149/100, heart rate 111; 3 minutes 137/98, heart rate 107; 5 minutes, 136/96, heart [id number]; 10 minutes 128/83, heart rate 112. Head and Neck: Anicteric sclerae. No xanthelasma. Extraocular movements are intact. No goiter. Back: No CVA tenderness. Chest: Clear. Equal breath sounds. No rales or wheezes. Cardiac: Regular rate and rhythm. S1, S2 normal. No S3. No murmur, heave, or thrill. No neck vein elevation. Abdomen: Round, soft, positive bowel tones. No hepatosplenomegaly. Extremities: No cyanosis, clubbing, or edema. Skin: Multiple tattoos without nodules or erythema. Neurologic: She is right handed. Cranial nerves II through XII intact. Motor exam is 5/5 in all 4 extremities. Sensation intact to light touch. Speech and gait normal. Data: My personal review of the [facility] mobile quality assurance monitor for nearly 24 hours in December 2019: Her heart rate range was 63 to 136, average of 95, 2.5% PVCs. The tracings show occasional PVCs that appear to be a single morphology. Outside hospital records reviewed from January 29 demonstrates she had a potassium 3.9, sodium 140, creatinine 0.5, white count 8.9. I reviewed the outside hospitalelectrocardiogram from 10/02/2016, demonstrating sinus rhythm, normal axis, no delta wave. I have reviewed the outside hospital ED records. Her electrocardiogram today demonstrates sinus rhythm at a rate of 97. P waves upright in lead I, II, and aVL, negative in AVR. There is no delta wave. There are nonspecific ST/T-wave changes. Her friend was interviewed and did not provide any further history. Impression and Plan: 1. Probable postural tachycardia syndrome. Ms. Fabian gives a history of an elevated heart rate uponstanding. She states her heart rate can go from 70 to 110 to the 130s. It has improved in that previously it would go to 140s to 150s. She has found that liquid IV has helped maintain her salt and fluid intake. We did discuss using salt 2 to 3 extra teaspoons a day. She asked about salt as her mother had a history of renal failure and heart failure and was told to avoid salt. I explained the physiology was different. She avoids triggers, does not drink caffeine or alcohol, and avoids the heat. She states she is doing better when she is able to work out with a sap trainer. We discussed the elective nature of tilt-table testing and I explained that tilt-table testing is the only diagnostic test for POTS. I explained the risks and benefits. [facility] asked that she call our office to schedule it if she wishes to consider it. I reviewed the risks of requiring resuscitation and syncope due to bradycardia and hypotension. I gave her a patient information booklet. I do think it would be necessary for her to undergo repeat echocardiography to ensure that she has not developed any cardiomyopathy or structural heart disease prior to her tilt-table testing. 2. Anxiety. She is seeing a therapist to help with that. That is very reasonable for her given her drug reactions. 3. Coronavirus disease-19, recovered, August 2022. Her symptoms did not worsen after her COVID infection. I did explain that dysautonomias have been described in patients recovering from COVID. 4. Adverse drug reaction to metoprolol. I explained that metoprolol can be used for symptoms in patients with postural orthostatic tachycardia syndrome. However, given her adverse reaction, we would not consider that at this point. If she had refractory symptoms, use of Corlanor can be considered as long as it is not financially prohibitive. I appreciate the opportunity to participate in her care. It was a pleasure meeting her today. If I can be of any further assistance, please do not hesitate to contact me. Respectfully, ELECTRONICALLY SIGNED - 02/23/2023 09:16 AM Emilie Wilson M.D., F.A.C.C., F.H.R.S. biology adjunct instructor MG/mts cc: TRENTON LOMELI MD / / documented in this encounter Plan of Treatment Scheduled Orders Name Type Priority Associated Diagnoses Orde r Schedule ECG 12 lead ECG Routine POTS (postural orthostatic tachycardia syndrome) Ordered: 02/22/2023 documented as of this encounter Results * TRANSTHORACIC ECHO (TTE) COMPLETE W DOPPLER/CF WO CONTRAST (05/12/2023 4:55 PM CDT) LV EF 69 % CARDIOREPORT Anatomical Region Laterality Modality Ultrasound 05/12/2023 4:15 PM CDT Narrative 05/13/2023 2:54 PM CDT Patient name: Alia Fabian Date of test: 05/12/2023 Type of test: TTE w/Doppler Hospital #: [id number] Date of : 1990 (F) Manager Solar: Pia Masters RDCS Referring Physician: EMILIE WILSON MD Contrast Agent: Patient Refused Contrast Contrast Administered by: Supervised/Interpreted by: Celeste Agosto MD Diagnosis: Location: [facility] Reason for test: POTS MV Structure: Normal, ?MV Motion: Normal, ?? Mitral Annulus: Normal AV Structure: tricuspid and is Normal, ?? AV Motion: Normal Aotic root: Normal, ?TM: Normal, ?? PV: Normal Valvular Vegetations: none seen, ?Mass/Thrombi: none seen RA: Normal Measurements: ?M-Mode ?Normal ? Aotic Root: ? <3.8 ? LA: ? <3.8 ? RV: ? <2.8 ? LV(ED): ? <5.7 ? LV(ES): ? Variable ?2D Linear Normal ? Aotic Root: 3.0 cm ?<3.6 ? Ao Indexed: 1.3 cm/M2 <2.0 ? LA: ? <3.8 ? RV: ? 4.3 cm ?<4.2 ? LV(ED): ? 4.3 cm ?<5.3 ? LV(ES): ? 2.7 cm ?<3.5 ?2D Vol. ?? Normal ?Indexed ?? Indexed Normal RA: ? 39.0 ml ? 16.6 ml/M2 ?9-33 ? LA: ? 50.0 ml ? 21.2 ml/M2 ?16-34 ? RV: ? <11.6 ? LV(ED): ? 84.0 ml ?? 46-106 ?35.7 ml/M2 ?<62 ? LV(ES): ? 26.0 ml ?? 14-42 ? 11.0 ml/M2 ?<25 ?3D Vol. ? Indexed Normal LV(ED): ?<62 ? LV(ES): ?<24 ? LV EF: 69 % ?? (Normal: >=54%) ?? LV Septum: 0.9 cm ?(Normal: <0.9 cm) Wall Motion Scoring (1=Normal 2=Hypo 3=Akinetic 4=Dyskin./Aneurysm 0=Not visualized) Parasternal [place] Brooks:MAS=1 BAS=1 MIL=1 ANAI=1 Parasternal Short Brooks:MAS=1 MIS=1 TN=1 MIL=1 MAL=1 MA=1 Apical 4 Chambers:=1 MIS=1 BIS=1 BAL=1 MAL=1 AL=1 AC=1 Apical 2 Chambers:AI=1 TN=1 BI=1 BA=1 MA=1 AA=1 AC=1 LV Global Longitudinal Strain: -18.6% ??(Normal <-17%) RV Global Longitudinal Strain: LV Function: Normal LV Ejection Fraction, ??(EF=54-74%) RV Function: Normal Septal Motion: Normal Pericardial Effusion: none seen Atrial Septum: Normal DOPPLER/COLOR FLOW DOPPLER RESULTS: Diastolic Function: normal Tricuspid Valve: trace TR Pulmonic Valve: normal PV AV Regurgitation: No AR seen AV Stenosis: no AV Area: ??cm2 AV Pressure Gradient (mmHg): Mean: 0, Peak:0 MV Regurgitation: Trace MR MV Stenosis: no MS MV Area: ??cm2 MV Pressure Gradient (mmHg): Mean: 0 MV ERO: ??cm Regurg. Vol.: ??ml/beat Regurg. Frac.: ??% PA Pressure: 25 mmHg DOPPLER/COLOR FOLOW DOPPLER COMMENTS: No AR seen, Trace MR, no , no MS, trace TR, normal PV. Diastolic function: normal E'lat = 15 cm/s; E/E'lat < 8 c/w normal LAP. CONTRAST: Patient Refused Contrast SUMMARY: Technically difficult study due to poor acoustic windows - pt refused contrast. Normal LV and RV size and systolic function. Normal global LV myocardial longitudinal function and strain pattern. Normal LV mass. Normal LA and RA size. Trace MR and TR. PASP 25 mmHg (faint TR jet). Normal LV diastolic function. Normal IVC and aorta. No prior studies available for comparison. Confirmed on ??05/13/2023 - 14:54:22 by Celeste Agosto MD By signing this report, the attending strand forming machine operator certifies that he or she has personally supervised and interpreted the echocardiogram and has reviewed and or edited and agrees with the written comments contained within the report. Procedure Note Celeste Agosto MD - 05/13/2023 Patient name: Alia Fabian Date of test: 05/12/2023 Type of test: [facility] #: [id number] Date of : 1990 (F) Manager Solar: Pia Masters RDCS Referring Physician: EMILIE WILSON MD Contrast Agent: Patient Refused Contrast Contrast Administered by: Supervised/Interpreted by: Celeste Agosto MD Diagnosis: Location: [facility] Reason for test: POTS MV Structure: Normal, MV Motion: Normal, Mitral Annulus: Normal AV Structure: tricuspid and is Normal, AV Motion: Normal Aotic root: Normal, TM: Normal, PV: Normal Valvular Vegetations: none seen, Mass/Thrombi: none seen RA: Normal Measurements: M-Mode Normal Aotic Root: <3.8 LA: <3.8 RV: <2.8 LV(ED): <5.7 LV(ES): Variable 2D Linear Normal Aotic Root: 3.0 cm <3.6 Ao Indexed: 1.3 cm/M2 <2.0 LA: <3.8 RV: 4.3 cm <4.2 LV(ED): 4.3 cm <5.3 LV(ES): 2.7 cm <3.5 2D Vol. Normal Indexed Indexed Normal RA: 39.0 ml 16.6 ml/M2 9-33 LA: 50.0 ml 21.2 ml/M2 16-34 RV: <11.6 LV(ED): 84.0 ml 46-106 35.7 ml/M2 <62 LV(ES): 26.0 ml 14-42 11.0 ml/M2 <25 3D Vol. Indexed Normal LV(ED): <62 LV(ES): <24 LV EF: 69 % (Normal: >=54%) LV Septum: 0.9 cm (Normal: <0.9 cm) Wall Motion Scoring (1=Normal 2=Hypo 3=Akinetic 4=Dyskin./Aneurysm 0=Not visualized) Parasternal [place]:MAS=1 BAS=1 MIL=1 ANAI=1 Parasternal Short Brooks:MAS=1 MIS=1 TN=1 MIL=1 MAL=1 MA=1 Apical 4 Chambers:=1 MIS=1 BIS=1 BAL=1 MAL=1 AL=1 AC=1 Apical 2 Chambers:AI=1 TN=1 BI=1 BA=1 MA=1 AA=1 AC=1 LV Global Longitudinal Strain: -18.6% (Normal <-17%) RV Global Longitudinal Strain: LV Function: Normal LV Ejection Fraction, (EF=54-74%) RV Function: Normal Septal Motion: Normal Pericardial Effusion: none seen Atrial Septum: Normal DOPPLER/COLOR FLOW DOPPLER RESULTS: Diastolic Function: normal Tricuspid Valve: trace TR Pulmonic Valve: normal PV AV Regurgitation: No AR seen AV Stenosis: no AV Area: cm2 AV Pressure Gradient (mmHg): Mean: 0, Peak:0 MV Regurgitation: Trace MR MV Stenosis: no MS MV Area: cm2 MV Pressure Gradient (mmHg): Mean: 0 MV ERO: cm Regurg. Vol.: ml/beat Regurg. Frac.: % PA Pressure: 25 mmHg DOPPLER/COLOR FOLOW DOPPLER COMMENTS: No AR seen, Trace MR, no , no MS, trace TR, normal PV. Diastolic function: normal E'lat = 15 cm/s; E/E'lat < 8 c/w normal LAP. CONTRAST: Patient Refused Contrast SUMMARY: Technically difficult study due to poor acoustic windows - pt refused contrast. Normal LV and RV size and systolic function. Normal global LV myocardial longitudinal function and strain pattern. Normal LV mass. Normal LA and RA size. Trace MR and TR. PASP 25 mmHg (faint TR jet). Normal LV diastolic function. Normal IVC and aorta. No prior studies available for comparison. Confirmed on 05/13/2023 - 14:54:22 by Celeste Agosto MD By signing this report, the attending strand forming machine operator certifies that he or she has personally supervised and interpreted the echocardiogram and has reviewed and or edited and agrees with the written comments contained within the report. Emilie Wilson MD CV ECHO PROCEDURES Final Resul t documented in this encounter Visit Diagnoses Diagnosis POTS (postural orthostatic tachycardia syndrome)- Primary Unspecified tachycardia POTS (postural orthostatic tachycardia syndrome) Unspecified tachycardia documented in this encounter Care Teams Transit Clerk Relationship Specialty Start Date End Date Trenton Lomeli MD PCP - General Family Medicine 10/06/21 Neelima Velazquez MD [address] [place] [address] Consulting Physician Gynecology 10/06/21 documented as of this encounter
--- OUTSIDE RECORDS SUMMARY | 2024-11-04 23:54 | XMS_ITS | Encounter Summary ---
Author Organization [facility] Address [address] [place] [address] Phone Care Team Providers Care Hemmer Chainstitch Name Role Phone Trenton Lomeli MD Primary Care Provider [phone] Neelima Velazquez MD Unavailable [phone] Encounter Details Date Type Department Care Team (Late st Contact Info) Description 12/04/2022 Telephone [facility] Cardiology 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 [] [x]If 'Yes', Schedule first available with Cardio-Oncology Have you ever seen a Concrete Boom Operator in an office setting? [x] [] If yes, where were you treated? Dr. Aamir Diop If yes, is this a heart condition you've had since childhood? [] [x] IF SCHEDULING PATIENT WITH [facility] Have you had a baby in the last year or are you ? [] [] Have you had heart or blood pressure problems during a previous ? [] [] Are you planning on transferring care to a [facility] MD or are you looking for a second opinion on your current diagnosis? [] 2nd Opinion (Appts will be CX if records not received 48hrs prior to appt) [x]Transferring Care to [facility] Patient History Questions Yes No Where/When/Notes Have you EVER been hospitalized for ANY cardiac issue? [x] [] Kept overnight [facility], [place] Have you ever had an EKG? [x] [] Dr. Aamir Diop (regularly done) Have you ever had a stress test? [] [x] Have you ever had an echo? [x] [] Delonte Diop Have you ever had any cardiac imaging including calcium scoring, cardiac MRI, or cardiac CT? [] [x] Have you ever worn a heart monitor at home? [x] [] Several 24hr, 2 month long, [facility] Have you ever had a Cardiac Cath? [] [x] Have you ever had a Cardiac Surgery (including ablations, cardioversions, CABG, etc.)? [] [x] Have you ever had a sleep study? [x] [] Several inconclusive due to lack of sleeping Do you have a device? If yes what type? (Pacemaker, Defibrillator, Implanted Loop Recorder) [] [x] If yes, where and when was device put in? Editorial Clerk? ([employer], [employer], [place]) Notes: Being referred directly to [facility] Appointment Date: Type: Provider: Location: [] Confirm appt date, time, provider and location. [] Advise pt to arrive 15-20 min early. [] Advise patient to bring medications/list, photo ID and insurance card [] Advise of New Patient Packet being mailed to them. [] Patients with clinical appointments may have 2 support people/caregivers who can participate in exam room questions and care. [] Patients and visitors are expected to wear a mask upon building entry and while inside the facility. ING LABORER documented in this encounter Plan of Treatment Not on file documented as of this encounter Visit Diagnoses Not on filedocumented in this encounter Care Teams Hemmer Chainstitch Relationship Specialty Start Date End Date Trenton Lomeli MD PCP - General Family Medicine 10/06/21 Neelima Velazquez MD [address] [address] Consulting Physician Gynecology 10/06/21 documented as of this encounter
--- OUTSIDE RECORDS SUMMARY | 2024-11-04 23:54 | XMS_ITS | Continuity of Care Document ---
Author Organization [facility] [place] [address] [place] [address] [place] [address] Phone Care Team Providers Care Manager Harbor Name Role Phone [facility] Unavailable Unavail able Ame Hollis Unavailable Unavailable Procedures Procedure Date Vision [facility] Frames Purchases SV Poly Carb Sph [place] To +/- 4 010 Contact Lens Hydrophilic, Spherical Medical Tax Eye Exam & Treatment Refraction Office/outpatient Visit, Est Progressive Lens, Polycarb Frames Deluxe Anti-reflective Coating Anti-reflective Coating Frames Deluxe SV Poly Carb Sph +/- 7.12 To +/- 20 D Oc Tax - [facility] Frames Purchases SV Poly Carb Sph [place] To +/- 4 007 Eye Exam & Treatment Refraction Corneal Pachymetry Fundus Photography W/ Report Advance Directives Directive Yes / No Effective Date File Name No Information Encounters Encounter Description Practice Location Reason(s) For Visit Diagnoses Date Provider Providers Copied on Encounter [facility], [address] [place] [address] [address], [place], [place], [id number], [place] tel:[phone] [facility] No Information 2-201 0 [facility] . [address] [facility], [address], [place], [place], [address], [place]. tel:[phone] Referring Provider: Deric Downey OD A, [address], [place], [address]. tel:[phone] g Provider: Ame Hollis, [address] [place], [address]. tel:[phone] [facility], [address], [place], [place], [address], [place] tel:[phone] [facility] No Information 1-201 0 Downey OD Deric. [address] [facility] , [address], [place], [address], [place]. tel:[phone] [facility], [address], [place], [place], [address], [place] tel:[phone] [facility] No Information 3-201 0 Downey OD Deric. [address] [facility] , [address], [place], [address], [place]. tel:[phone] Office/outpat ient Visit, Est [facility], [address], [place], [place], [address], [place] tel:[phone] [facility] No Information Dec-2 3-200 9 Doisy Edward. [address] [facility] , [address], [place], [address], [place]. tel:[phone] [facility], [address], [place], [place], [address], [place] tel:[phone] [facility] No Information Dec-2 3-200 9 [facility] . [address] [facility] [facility], [address], [place], [place], [address], [place]. tel:[phone] Referring Provider: Juan Pablo Washington, [address], [place], [address]. tel:[phone] marco Provider: Sissy Enriquez, [address] [place], [address]. tel:[phone] [facility], [address], [place], [place], [address], [place] tel:[phone] [facility] No Information 9-200 7 [facility] . [address] [facility] [facility], [address], [place], [address], [place]. tel:[phone] Consulting Provider: Sissy Enriquez, [address] [place] [address], [address]. tel:[phone] [facility], [address], [place], [place], [address], [place] tel:[phone] [facility] No Information 2-200 7 [facility] . [address] [facility], [address], [place], [place], [address], [place]. tel:[phone] Referring Provider: Juan Pablo Washington, [address] [facility] [address], [place], [address]. tel:[phone] g Provider: Ame Hollis, [address] [place], [address]. tel:[phone] [facility], [address], [place], [place], [address], [place] tel:[phone] [facility] No Information 8-200 7 Blaire Almeida. [address] , [address], [place], [address], [place]. tel:[phone] Referring Provider: Juan Pablo Washington, [address] [facility] [address], [place], [address]. tel:[phone] Family History Family Member Type Diagnosis Age At Onset No Information Payers Payer name Insurance type Covered republican ID Authoriza tion(s) No Information Social History Type Description Quantity Date Captured Comments Sex Female Smoking Status No Information Chief Complaint And Reason For Visit No Information Reason For Referral Reason For Referral No Information History Of Present Illness Encounter Date Complaint History Of Prese nt Illness No Information Functional Status Date Functional Assessmen t No Information Instructions Date Instruction Additional Infor mation No Information Assessments Type Assessment Date No Information Patient Care Teams Name Effective Dates (start - stop) Status Members No Information
--- OUTSIDE RECORDS SUMMARY | 2024-11-04 23:54 | XMS_ITS | Encounter Summary ---
Author Organization [facility] Address [address] [place] [address] Phone Care Team Providers Care Farm Operator Name Role Phone Trenton Lomeli MD Primary Care Provider [phone] Neelima Velazquez MD Unavailable [phone] Encounter Details Date Type Department Care Team (Late st Contact Info) Description 12/29/2022 Telephone [facility] Cardiology [address] [facility] [address] [place] [address] [place] [address] Maura Wilson MD [address] 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 Please call to reschedule. DIGGER OPERATOR documented in this encounter Plan of Treatment Not on file documented as of this encounter Visit Diagnoses Not on filedocumented in this encounter Care Teams Farm Operator Relationship Specialty Start Date End Date Trenton Lomeli MD PCP - General Family Medicine 10/06/21 Neelima Velazquez MD [address] [address] Consulting Physician Gynecology 10/06/21 documented as of this encounter
--- OUTSIDE RECORDS SUMMARY | 2024-11-04 23:54 | XMS_ITS | Encounter Summary ---
Author Organization [facility] Address [address] [place] [address] Phone Care Team Providers Care Histological Illustrator Name Role Phone Trenton Lomeli MD Primary Care Provider [phone] Neelima Velazquez MD Unavailable [phone] Encounter Details Date Type Department Care Team (Late st Contact Info) Description 01/29/2023 Telephone [facility] Cardiology [address] [facility] [address] 8th [place] [address] [place] [address] Maura Wilson MD [address] [facility] [address] [place], [place] [id number] Social History Tobacco Use Types Packs/Day Years [...] on file Legal Sex Female 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 Wilson. * Telephone Encounter - Airam Wray - 01/29/2023 3:10 PM CDT Katie Pt calling to reschedule her new patient appointment with Dr. Wilson. Pt was scheduled for 12/29/22. documented in this encounter Plan of Treatment Not on file documented as of this encounter Visit Diagnoses Not on filedocumented in this encounter Care Teams Histological Illustrator Relationship Specialty Start Date End Date Trenton Lomeli MD PCP - General Family Medicine 10/06/21 Neelima Velazquez MD [address] [address] Consulting Physician Gynecology 10/06/21 documented as of this encounter
--- OUTSIDE RECORDS SUMMARY | 2024-11-04 23:54 | XMS_ITS | Encounter Summary ---
Author Organization [facility] Address [address] [place] [address] Care Team Providers Care Mophead Trimmer And Wrapper Name Role Phone Trenton Lomeli MD Primary Care Provider [phone] Neelima Velazquez MD Unavailable [phone] Reason for Referral * Cardiology (Routine) - Closed Specialty Diagnoses / Procedures Referred By Contac t Referred To Contact Diagnoses POTS (postural orthostatic tachycardia syndrome) Procedures Transthoracic Echo (TTE) Complete W Doppler/CF Maura Wilson MD Phone: tel: fax: [facility] (All Locations) Referral ID Status Reason Start Date Expiration Date Visits Re quested Visits Authorized [id number] Closed 02/19/2023 03/20/2024 1 1 Reason for Visit * Cardiology (Routine) - Closed Specialty Diagnoses / Procedures Referred By Contac t Referred To Contact Diagnoses POTS (postural orthostatic tachycardia syndrome) Procedures Transthoracic Echo (TTE) Complete W Doppler/CF Maura Wilson MD Phone: tel: fax: [facility] (All Locations) Referral ID Status Reason Start Date Expiration Date Visits Re quested Visits Authorized [id number] Closed 02/19/2023 03/20/2024 1 1 Encounter Details Date Type Department Care Team (Latest Contact Info) Description 05/12/2023 3:20 PM CDT - 05/12/2023 11:59 PM CDT Hospital Encounter [facility] [address] [facility] 8th [place] [address] Maura Wilson MD [address] [facility] [address] [place] [address] POTS (postural orthostatic tachycardia syndrome) Discharge Disposition: Discharge to home or self [...] on file 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 [employer] Gender Identity Not on file Sexual Orientation Not on file 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 file Not on file Not [...] capsule Take 1 capsule by mouth daily Lactobacillus acidophilus (PROBIOTIC ORAL) Take by mouth 06/16 rosuvastatin (Crestor) 20 mg tabletIndications:Mi xed hyperlipidemia Take 1 tablet (20 mg total) by mouth daily 30 tablet 2 11/10/2022 3 documented as of this encounter Discharge Disposition Disposition Code Departure Means Destination Discharge to home or self care documented in this encounter Plan of Treatment Not on file documented as of this encounter Procedures Procedure Name Priority Date/Time Associated Diagnosis Comments TRANSTHORACIC ECHO (TTE) COMPLETE W DOPPLER/CF WO CONTRAST Routine 05/12/2023 4:55 PM CDT POTS (postural orthostatic tachycardia syndrome) documented in this encounter Results * TRANSTHORACIC ECHO (TTE) COMPLETE W DOPPLER/CF WO CONTRAST (05/12/2023 4:55 PM CDT) LV EF 69 % CARDIOREPORT Anatomical Region Laterality Modality Ultrasound 05/12/2023 4:15 PM CDT Narrative 05/13/2023 2:54 PM CDT Patient name: Alia Fabian Date of test: 05/12/2023 Type of test: TTE w/Doppler [facility] #: 0 Date of : 1990 (F) Sales Representative Printing: Pia Masters RDCS Referring Physician: MAURA WILSON MD Contrast Agent: Patient Refused Contrast Contrast Administered by: Supervised/Interpreted by: Celeste Meade MD Diagnosis: Location: [facility] Reason for test: POTS MV Structure: [...] 2=Hypo 3=Akinetic 4=Dyskin./Aneurysm 0=Not visualized) Parasternal Long Harrison:MAS=1 BAS=1 MIL=1 ANAI=1 Parasternal Short [place]:MAS=1 MIS=1 WV=1 MIL=1 MAL=1 MA=1 Apical 4 Chambers:=1 MIS=1 BIS=1 BAL=1 MAL=1 AL=1 AC=1 Apical 2 Chambers:AI=1 WV=1 BI=1 BA=1 MA=1 AA=1 AC=1 LV Global [...] Confirmed on ??05/13/2023 - 14:54:22 by Celeste Meade MD By signing this report, the attending motor vehicle operator road supervisor certifies that he or she has personally supervised and interpreted the echocardiogram and has reviewed and or edited and agrees with the written comments contained within the report. Procedure Note De Celeste Jarquin MD - 05/13/2023 Patient name: Alia Fabian Date of test: 05/12/2023 Type of test: TTE w/Doppler [facility] #: 0 Date of : 1990 (F) Sales Representative Printing: Pia Masters RDCS Referring Physician: MAURA WILSON MD Contrast Agent: Patient Refused Contrast Contrast Administered by: Supervised/Interpreted by: Celeste Meade MD Diagnosis: Location: [facility] Reason for test: POTS MV Structure: [...] 2=Hypo 3=Akinetic 4=Dyskin./Aneurysm 0=Not visualized) Parasternal Long [place]:MAS=1 BAS=1 MIL=1 ANAI=1 Parasternal Short Harrison:MAS=1 MIS=1 WV=1 MIL=1 MAL=1 MA=1 Apical 4 Chambers:=1 MIS=1 BIS=1 BAL=1 MAL=1 AL=1 AC=1 Apical 2 Chambers:AI=1 WV=1 BI=1 BA=1 MA=1 AA=1 AC=1 LV Global [...] Confirmed on 05/13/2023 - 14:54:22 by Celeste Meade MD By signing this report, the attending motor vehicle operator road supervisor certifies that he or she has personally supervised and interpreted the echocardiogram and has reviewed and or edited and agrees with the written comments contained within the report. Maura Wilson MD CV ECHO PROCEDURES Final Resul t documented in this encounter Visit Diagnoses Diagnosis POTS (postural orthostatic tachycardia syndrome) Unspecified tachycardia documented in this encounter Care Teams Mophead Trimmer And Wrapper Relationship Specialty Start Date End Date Trenton Lomeli MD PCP - General Family Medicine 10/06/21 Neelima Velazquez MD [address] [address] Consulting Physician Gynecology 10/06/21 documented as of this encounter
--- OUTSIDE RECORDS SUMMARY | 2024-11-04 23:55 | XMS_ITS | Encounter Summary ---
Author Organization [facility] Healthcare Address [address] [place] [address] Care Team Providers Care Bureau Chief Name Role Phone Sergo Mackey MD Primary Care Provider [phone] Encounter Details Date Type Department Care Team (Late st Contact Info) Description 08/07/2017 7:34 PM CDT - 08/08/2017 2:24 AM CDT Emergency [facility] Emergency Department [address] [place] [address] Rock Grant MD [facility] [address] [place], [place] [id number] Discharge Disposition: Discharge to home or self care Social History Tobacco Use Types Packs/Day Years Used Date Smoking Tobacco: Never Alcohol Use Standard Drinks/Week Comments No 0 (1 standard drink = 0.6 oz pur e alcohol) Comments Unknown Sex and Gender Information Value Date Recorded Sex Assigned at Not on file 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 Gender Identity Not on file Sexual Orientation Not on file documented as of this encounter Medications at Time of Discharge clidinium-chlordi azePOXIDE (LIBRAX, WITH CLIDINIUM,) 5-2.5 mg per capsule take 1 capsule by oral route 2 times every day before meals 0 0 10/02/2016 10/06/2021 clonazePAM (KlonoPIN) 1 mg tablet take 1 tablet by oral route 3 times every day 0 0 10/02/2016 10/06/2021 metoprolol (LOPRESSOR) 25 mg tablet take 1 Tablet by oral route 2 times every day 0 0 10/02/2016 10/06/2021 documented as of this encounter Discharge Disposition Disposition Code Departure Means Destination Discharge to home or self care documented in this encounter Plan of Treatment Not on file documented as of this encounter Visit Diagnoses Not on filedocumented in this encounter Care Teams Bureau Chief Relationship Specialty Start Date End Date Sergo Mackey MD [address] [place] [address] PCP - General 08/05/17 10/05/21 documented as of this encounter
--- OUTSIDE RECORDS SUMMARY | 2024-11-04 23:55 | XMS_ITS | Encounter Summary ---
Author Organization [facility] Address [address] [place] [address] Phone Care Team Providers Care Financial Reporting Advisor Name Role Phone Sergo Mackey MD Primary Care Provider [phone] Trenton Lomeli MD Primary Care Provider [phone] Neelima Velazquez MD Unavailable [phone] Maura Wilson MD Unavailable [phone] Encounter Details Date Type Department Care Team (Latest Contact Info) Description 01/11/2020 Orders Only [facility] Scanning, Provider Social History Tobacco Use Types Packs/Day Years Used Date Smoking Tobacco: Never Alcohol Use Standard Drinks/Week Comments No 0 (1 standard drink = 0.6 oz pur e alcohol) Comments Unknown Sex and Gender Information Value Date Recorded Sex Assigned at Not on file 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 Gender Identity Not on file Sexual Orientation Not on file documented as of this encounter Plan of Treatment Not on file documented as of this encounter Procedures Procedure Name Priority Date/Time Associated Diagnosis Comments CARDIOLOGY DOCUMENT SCAN 01/11/2020 documented in this encounter Results * CARDIOLOGY DOCUMENT SCAN (01/11/2020) Anatomical Region Laterality Modality Other us Provider Scanning CV CARDIAC SERVICES PROCEDURES Final Result documented in this encounter Visit Diagnoses Not on filedocumented in this encounter Additional Health Concerns Infection Onset Date Last Indicated Resolved Time COVID: Suspected 03/31/2022 03/31/2022 03/31/2022 4:04 PM CDT COVID: Suspected 10/03/2022 10/03/2022 10/03/2022 1:05 PM BUCKET OPERATOR COVID: Suspected 10/22/2022 10/22/2022 10/22/2022 5:32 PM BUCKET OPERATOR documented as of this encounter Care Teams Financial Reporting Advisor Relationship Specialty Start Date End Date Sergo Mackey MD [address] [place] [address] PCP - General 08/05/17 10/05/21 Trenton Lomeli MD [address] [place] [address] PCP - General Family Medicine 10/06/21 Neelima Velazquez MD [address] [address] Consulting Physician Gynecology 10/06/21 Maura Wilson MD [address] [place] [address] Consulting Physician Cardiology 06/16/23 documented as of this encounter
--- OUTSIDE RECORDS SUMMARY | 2024-11-04 23:55 | XMS_ITS | Encounter Summary ---
Author Organization [facility] Address [address] [address] Care Team Providers Care Classroom Technology Technician Name Role Phone Trenton Lomeli MD Primary Care Provider [phone] Neelima Velazquez MD Unavailable [phone] Reason for Visit * Reason Comments New Patient new patient Encounter Details Date Type Department Care Team (Late st Contact Info) Description 10/06/2021 2:15 PM TERRITORY ACCOUNT REPRESENTATIVE Office Visit [facility] Primary Care at [address] [address] Trenton Lomeli MD [address] [place] [address] [address] [place] [address] Encounter for medical examination to establish care (Primary Dx); Nonalcoholic steatohepatitis (ACE); Essential hypertension Social History Tobacco Use Types Packs/Day Years Used Date Smoking Tobacco: Former Cigarettes 1.5 11 2 002 - 2013 Alcohol Use Standard Drinks/Week Comments No 0 [...] points, staff should administer the PHQ-9) 0 10/06/2021 Education Answer Date Recorded What is the highest level of school you have completed or the highest degree you have received? 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 Not on file Not on file Not on file documented as of this encounter Last Filed Vital Signs Vital Sign Reading Time Taken Comments Blood Pressure 120/80 10/06/2021 1:55 PM TERRITORY ACCOUNT REPRESENTATIVE Pulse 110 10/06/2021 1:55 PM TERRITORY ACCOUNT REPRESENTATIVE Temperature 36.6 ??C (97.8 ??F) 10/06/2021 1:55 PM CS T Respiratory Rate 16 10/06/2021 1:55 PM TERRITORY ACCOUNT REPRESENTATIVE Oxygen Saturation 98% 10/06/2021 1:55 PM TERRITORY ACCOUNT REPRESENTATIVE Inhaled Oxygen Concentration - - Weight 120.7 kg (266 lb) 10/06/2021 1:55 PM TERRITORY ACCOUNT REPRESENTATIVE Height 170.2 cm (5' 7 ) 10/06/2021 1:55 PM TERRITORY ACCOUNT REPRESENTATIVE Body Mass Index 41.66 10/06/2021 1:55 PM TERRITORY ACCOUNT REPRESENTATIVE documented in this encounter Patient Instructions * Patient Instructions* Trenton Lomeli MD - 10/06/2021 2:15 PM TERRITORY ACCOUNT REPRESENTATIVE Images from the original note were not included. Patient Education Wellness Visit for Adults WHAT YOU NEED TO KNOW: What is a wellness visit? A wellness visit is when you see your healthcare provider to get screenedfor health problems. Your healthcare provider will also give you advice on how to stay healthy. Write down your questions so you remember to ask them. Ask your healthcare provider how often you should have a wellness visit. What happens at a wellness visit? Your healthcare provider will ask about your health, and your family history of health problems. This includes high blood pressure, heart disease, and cancer. He or she will ask if you have symptoms that concern you, if you smoke, and about your mood. You may also be asked about your intake of medicines, supplements, food, and alcohol. Any of the following may bedone: ?? Your weight will be checked. Your height may also be checked so your body mass index (BMI) can be calculated. Your BMI shows if you are at a healthy weight. ?? Your blood pressure and heart rate will be checked. Your temperature may also be checked. ?? Blood and urine tests may be done. Blood tests may be done to check your cholesterol levels. Abnormal cholesterol levels increase your risk for heart disease and stroke. You may also need a blood or urine test to check for diabetes if you are at increased risk. Urine tests may be done to look for signs of an infection or kidney disease. ?? A physical exam includes checking your heartbeat and lungs with a stethoscope. Your healthcare provider may also check your skin to look for sun damage. ?? Screening tests may be recommended. A screening test is done to check for diseases that may not cause symptoms. The screening tests you may need depend on your age, gender, family history, and lifestyle habits. For example, colorectal screening may be recommended if you are 50 years old or older. What screening tests do I need if I am a woman? ?? A Pap smear is used to screen for cervical cancer. Pap smears are usually done every 3 to 5 years depending on your age. You may need them more often if you have had abnormal Pap smear test results in the past. Ask your healthcare provider how often you should have a Pap smear. ?? A mammogram is an x-ray of your breasts to screen for breast cancer. Experts recommend mammograms every 2 years starting at age 50 years. You may need a mammogram at age 49 years or younger if youhave an increased risk for breast cancer. Talk to your healthcare provider about when you should start having mammograms and how often you need them. What vaccines might I need? ?? Get an influenza vaccine every year. The influenza vaccine protects you from the flu. Several types of viruses cause the flu. The viruses regional climate change analyst time, so new vaccines are made each year. ?? Get a tetanus-diphtheria (Td) booster vaccine every 10 years. This vaccine protects you against tetanus and diphtheria. Tetanus is a severe infection that may cause painful muscle spasms and lockjaw. Diphtheria is a severe bacterial infection that causes a thick covering in the back of your mouth and throat. ?? Get a human papillomavirus (HPV) vaccine if you are female and aged 19 to 26 or male 19 to 21 and never received it. This vaccine protects you from HPV infection. HPV is the most common infection spread by sexual contact. HPV may also cause vaginal, penile, and anal cancers. ?? Get a pneumococcal vaccine if you are aged 65 years or older. The pneumococcal vaccine is an injection given to protect you from pneumococcal disease. Pneumococcal disease is an infection caused by pneumococcal bacteria. The infection may cause pneumonia, meningitis, or an ear infection. ?? Get a shingles vaccine if you are aged 60 or older, even if you have had shingles before. The shingles vaccine is an injection to protect you from the varicella-zoster virus. This is the same virus that causes chickenpox. Shingles is a painful rash that develops in people who had chickenpox or have been exposed to the virus. How can I eat healthy? My Plate is a model for planning healthy meals. It shows the types and amounts of foods that should go on your plate. Fruits and vegetables make up about half of your plate, and grains and protein make up the other half. A serving of dairy is included on the side of your plate. The amount of calories and serving sizes you need depends on your age, gender, weight, and height. Examples of healthy foods are listed below: ?? Eat a variety of vegetables such as dark green, red, and orange vegetables. You can also includecanned vegetables low in sodium (salt) and frozen vegetables without added butter or sauces. ?? Eat a variety of fresh fruits , canned fruit in 100% juice, frozen fruit, and dried fruit. ?? Include whole grains. At least half of the grains you eat should be whole grains. Examples include whole-wheat bread, wheat pasta, brown rice, and whole- grain cereals such as oatmeal. ?? Eat a variety of protein foods such as seafood (fish and shellfish), lean meat, and poultry without skin (turkey and chicken). Examples of lean meats include pork leg, shoulder, or tenderloin, andbeef round, sirloin, tenderloin, and extra lean ground beef. Other protein foods include eggs and egg substitutes, beans, peas, soy products, nuts, and seeds. ?? Choose low-fat dairy products such as skim or 1% milk or low-fat yogurt, cheese, and cottage cheese. ?? Limit unhealthy fats such as butter, hard margarine, and shortening. How much exercise do I need? Exercise at least 30 minutes per day on most days of the week. Some examples of exercise include walking, biking, dancing, and swimming. You can also fit in more physicalactivity by taking the stairs instead of the elevator or parking farther away from stores. Include muscle strengthening activities 2 days each week. Regular exercise provides many health benefits. Ithelps you manage your weight, and decreases your risk for type 2 diabetes, heart disease, stroke, and high blood pressure. Exercise can also help improve your mood. Ask your healthcare provider aboutthe best exercise plan for you. What are some general health and safety guidelines I should follow? ?? Do not smoke. Nicotine and other chemicals in cigarettes and cigars can cause lung damage. Ask your healthcare provider for information if you currently smoke and need help to quit. E-cigarettes or smokeless tobacco still contain nicotine. Talk to your healthcare provider before you use these products. ?? Limit alcohol. A drink of alcohol is 12 ounces of beer, 5 ounces of wine, or 1?? ounces of liquor. ?? Lose weight, if needed. Being overweight increases your risk of certain health conditions. Theseinclude heart disease, high blood pressure, type 2 diabetes, and certain types of cancer. ?? Protect your skin. Do not sunbathe or use tanning beds. Use sunscreen with a SPF 15 or higher. Apply sunscreen at least 15 minutes before you go outside. Reapply sunscreen every 2 hours. Wear protective clothing, hats, and sunglasses when you are outside. ?? Drive safely. Always wear your seatbelt. Make sure everyone in your car wears a seatbelt. A seatbelt can save your life if you are in an accident. Do not use your cell phone when you are driving. This could distract you and cause an accident. data governance analyst if you need to make a call or send a text message. ?? Practice safe sex. Use latex condoms if are sexually active and have more than one partner. Yourhealthcare provider may recommend screening tests for sexually transmitted infections (STIs). ?? Wear helmets, lifejackets, and protective gear. Always wear a helmet when you ride a bike or motorcycle, go skiing, or play sports that could cause a head injury. Wear protective equipment when you play sports. Wear a lifejacket when you are on a boat or doing water sports. CARE AGREEMENT: You have the right to help plan your care. Learn about your health condition and how it may be treated. Discuss treatment options with your caregivers to decide what care you want to receive. You always have the right to refuse treatment. The above information is an environmental aid only. It is not intended as medical advice for individual conditions or treatments. Talk to your doctor, nurse or pharmacist before following any medical regimen to see if it is safe and effective for you. ?? 2017 [employer] Information is for End User's use only and may not be sold, redistributed or otherwise used for commercial purposes. All illustrations and images included in CareNotes?? are the copyrighted property of [employer]. or [employer]. Thanks for coming in today! My medical assistants and I are thankful you have trusted us with your care, and hope that you received EXCELLENT care today! Please do not hesitate to call if you have any questions or concerns at [phone]. You may receive a phone call, text, MYCHART message, or e-mail asking about your care today. We would love to hear your feedback on how EXCELLENT your care wastoday! Wishing you better health, always. Dr. Lomeli ITORY ACCOUNT REPRESENTATIVE documented in this encounter Progress Notes * Trenton Lomeli MD - 10/06/2021 2:15 PM CST SUBJECTIVE: 31 y.o. female who presents today to establish care with me. HPI nora manley counselor. Current Outpatient Medications Medication Sig Dispense Refill ??? BIOTIN ORAL Take by mouth ??? cannabidiol, CBD, (EPIDIOLEX) 100 mg/mL solution Take 5 mg/kg by mouth nightly as needed ??? Lactobacillus acidophilus (PROBIOTIC ORAL) Take by mouth ??? multivitamin capsule Take 1 capsule by mouth daily ??? Slynd 4 mg (28) tablet Take 1 tablet by mouth daily No current facility-administered medications for this visit. Allergies: Aripiprazole and Paroxetine No LMP recorded (lmp unknown). Past Medical History: Diagnosis Date ??? Anxiety and depression ??? HX OTHER MEDICAL anxiety, depression, palpitations, htn, obesity, d; Comments: MAF 10/02/2016 - ??? Morbid obesity (CMS/HCC) (HCC) ??? PCOS (polycystic ovarian syndrome) 10/06/2021 Past Surgical History: Procedure Laterality Date ??? WISDOM TOOTH EXTRACTION Oral Surgery Tooth Extraction [place] Tooth - (Added by TW Conv) Family History Problem Relation Age of Onset ??? Diabetes type I Mother 10 Diabetes mellitus type 1; /Family history of type 1 diabetes mellitus - (Added by TW Conv) ??? Other Mother Cardiac arrhythmias; ??? Transient ischemic attack Mother Transient ischemic attack; ??? Kidney disease Mother Family history of kidney disease - (Added by TW Conv) ??? Heart failure Mother Family history of congestive heart failure - (Added by TW Conv) ??? Hypertension Mother Family history of hypertension - (Added by TW Conv) ??? Essential Tremor Mother Family history of benign essential tremor - (Added by TW Conv) ??? Diabetes type II Maternal Grandmother Family history of type 2 diabetes mellitus - (Added by TW Conv) ??? Migraines Other Family history of migraine headaches - (Added by TW Conv) ??? Alcohol abuse Father ??? No Known Problems Maternal Grandfather ??? Dementia Paternal Grandmother ??? Cirrhosis Paternal Grandfather ??? Drug abuse Paternal Half-Brother ??? No Known Problems Paternal Half-Sister Social History Tobacco Use ??? Smoking status: Former Smoker Packs/day: 1.50 Years: 11.00 Pack years: 16.50 Types: Cigarettes Start date: 2001 Quit date: 2013 Years since quittin.9 ??? Smokeless tobacco: Not on file Vaping Use ??? Vaping Use: Never used Substance Use Topics ??? Alcohol use: No ??? Drug use: Not Currently Types: Marijuana Comment: now just uses CBD Review of Systems Constitutional: Negative. HENT: Negative. Eyes: Negative. Respiratory: Negative. Cardiovascular: Negative. Gastrointestinal: Positive for diarrhea. Genitourinary: Negative. Musculoskeletal: Negative. Skin: Negative. Neurological: Negative. Endo/Heme/Allergies: Negative. Psychiatric/Behavioral: Negative. Negative for depression. OBJECTIVE: BP 120/80 (BP Location: Left arm, Patient Position: Sitting) Pulse 110 Temp 36.6 ??C (97.8 ??F)(Temporal) Resp 16 Ht 170.2 cm (5' 7 ) Wt 120.7 kg (266 lb) LMP (LMP Unknown) Comment: doesnot have them SpO2 98% BMI 41.66 kg/m?? Physical Exam Vitals reviewed. Constitutional: Appearance: She is well-developed. She is morbidly obese. HENT: Head: Normocephalic and atraumatic. Right Ear: External ear normal. Left Ear: External ear normal. Eyes: Conjunctiva/sclera: Conjunctivae normal. Cardiovascular: Rate and Rhythm: Normal rate and regular rhythm. Heart sounds: Normal heart sounds. No murmur heard. No friction rub. No gallop. Pulmonary: Effort: Pulmonary effort is normal. Breath sounds: Normal breath sounds. Abdominal: General: Bowel sounds are normal. Palpations: Abdomen is soft. Tenderness: There is no abdominal tenderness. Musculoskeletal: General: Normal range of motion. Cervical back: Normal range of motion and neck supple. Right lower leg: No edema. Left lower leg: No edema. Skin: General: Skin is warm and dry. Capillary Refill: Capillary refill takes less than 2 seconds. Neurological: Mental Status: She is alert and oriented to person, place, and time. Psychiatric: Behavior: Behavior normal. Diagnoses and all orders for this visit: Encounter for medical examination to establish care (Primary) Assessment & Plan: A initial well visit to establish care has been performed today. Alia Fabian is up to date on screening tests. She is in need of None- no screening indicated at this time- these have been ordered. She is not up to date on needed preventative vaccinations; She is in need of Tdap/Td. These have been ordered/arranged unless otherwise indicated. Nonalcoholic steatohepatitis (ACE) - CBC with auto differential; Future - Comprehensive metabolic panel; Future - Lipid panel; Future Essential hypertension - TSH reflex to free T4; Future ITORY ACCOUNT REPRESENTATIVE documented in this encounter Miscellaneous Notes * Assessment & Plan Note - Trenton Lomeli MD - 10/08/2021 2:56 PM TERRITORY ACCOUNT REPRESENTATIVE Associated Problem(s): Well adult exam A initial well visit to establish care has been performed today. Alia Fabian is up to date on screening tests. She is in need of None- no screening indicated at this time- these have been ordered. She is not up to date on needed preventative vaccinations; She is in need of Tdap/Td. These have been ordered/arranged unless otherwise indicated. ITORY ACCOUNT REPRESENTATIVE ITORY ACCOUNT REPRESENTATIVE documented in this encounter Plan of Treatment Not on file documented as of this encounter Results * TSH reflex to free T4 (10/06/2021 2:39 PM TERRITORY ACCOUNT REPRESENTATIVE) TSH 0.84 0.30 - 4.20 mcIUnit/mL [facility] Blood 10/06/2021 2:39 PM TERRITORY ACCOUNT REPRESENTATIVE 10/06/2021 7:52 PM TERRITORY ACCOUNT REPRESENTATIVE Trenton Lomeli MD LAB BLOOD ORDERABLES Final Result Performing Organization Address City/State/ZIP [place] Phone Number [facility] [phone] [address] Department [place] [address] * (ABNORMAL) Lipid panel (10/06/2021 2:39 PM TERRITORY ACCOUNT REPRESENTATIVE) Cholesterol 147 30 - 199 mg/dL [facility] Comment: Interpretive Data Ages < or = 19 years ??Acceptable: ? <170 mg/dL ??Borderline high: ??170-199 mg/dL ??High: ? >or= 200 mg/dL Ages > or = 20 years ??Desirable: ?<200 mg/dL ??Borderline high: ??200-239 mg/dL ??High: ? >or= 240 mg/dL Literature References: 1. Expert Panel on Integrated Guidelines for Cardiovascular Health and Risk Reduction in Children and Adolescents. Pediatrics 2011;128:S213 2. NCEP Expert Panel. Circulation 2004;110:227 Current Interpretive Data was last revised on 2018. Triglycerides 121 <=149 mg/dL [facility] Comment: Interpretive Data Ages < or = 9 years ??Acceptable: ? <75 mg/dL ??Borderline high: ??75-99 mg/dL ??High: ? >or= 100 mg/dL Ages 10 to 20 years ??Acceptable: ? <90 mg/dL ??Borderline high: ??90-129 mg/dL ??High: ? >or= 130 mg/dL Ages > or = 20 years ??Desirable: ?<150 mg/dL ??Borderline high: ??150-199 mg/dL ??High: ? 200-499 mg/dL ?Very high: ?? >or= 499 mg/dL Literature References: 1. Expert Panel on Integrated Guidelines for Cardiovascular Health and Risk Reduction in Children and Adolescents. Pediatrics 2011;128:S213 2. NCEP Expert Panel. Circulation 2004;110:227 Current Interpretive Data was last revised on 2018. HDL 26(L) >=40 mg/dL [facility] Comment: Interpretive Data Ages < or = 19 years ??Acceptable: ? >45 mg/dL ??Borderline low: ?? 40-45 mg/dL ??Low: ? <40 mg/dL Ages > or = 20 years ??Desirable: ?>or= 60 mg/dL ??Low: ? <40 mg/dL Literature References: 1. Expert Panel on Integrated Guidelines for Cardiovascular Health and Risk Reduction in Children and Adolescents. Pediatrics 2011;128:S213 2. NCEP Expert Panel. Circulation 2004;110:227 Current Interpretive Data was last revised on 2018. LDL, calculated 97 <=129 mg/dL [facility] Comment: Interpretive Data Ages < or = 19 years ??Acceptable: ? <110 mg/dL ??Borderline high: ??110-129 mg/dL ??High: ?>or= 130 mg/dL Ages > or = 20 years ??Optimal: ? <100 mg/dL ??Near optimal: ?100-129 mg/dL ??Borderline high: ?? 130-159 mg/dL ??High: ?>160 mg/dL Literature References: 1. Expert Panel on Integrated Guidelines for Cardiovascular Health and Risk Reduction in Children and Adolescents. Pediatrics 2011;128:S213 2. NCEP Expert Panel. Circulation 2004;110:227 Current Interpretive Data was last revised on 2018. Non-HDL Cholesterol 121 mg/dL [facility] Comment: Interpretive Data Ages < or = 19 years ??Acceptable: ?<120 mg/dL ??Borderline high: ??120-144 mg/dL ??High: ?>145 mg/dL Ages > or = 20 years ??When triglycerides are >200 mg/dL, Non-HDL cholesterol is a secondary target of ? therapy with treatment goals that are 30 mg/dL greater than the LDL cholesterol target. ? Literature References: 1. Expert Panel on Integrated Guidelines for Cardiovascular Health and Risk Reduction in Children and Adolescents. Pediatrics 2011;128:S213 2. NCEP Expert Panel. Circulation 2004;110:227 Current Interpretive Data was last revised on 2018. Chol/HDL ratio 6 [facility] Blood 10/06/2021 2:39 PM TERRITORY ACCOUNT REPRESENTATIVE 10/06/2021 7:52 PM TERRITORY ACCOUNT REPRESENTATIVE us Trenton Lomeli MD LAB BLOOD ORDERABLES Final Result [place] [id number] [address] Department [place] [address] * (ABNORMAL) Comprehensive metabolic panel (10/06/2021 2:39 PM TERRITORY ACCOUNT REPRESENTATIVE) Sodium 141 135 - 145 mmol/L [facility] Potassium, pl 4.0 3.3 - 4.9 mmol/L [facility] Chloride 105 97 - 110 mmol/L [facility] CO2 24 22 - 32 mmol/L [facility] Anion gap 12 2 - 15 mmol/L [facility] BUN 7(L) 8 - 25 mg/dL [facility] Creatinine 0.61 0.60 - 1.10 mg/dL [facility] Glucose 97 70 - 199 mg/dL [facility] Comment: Interpretive Data Fasting glucose >/= 126 [...] classification and Diagnosis of Diabetes Diabetes Care 2017;40 (Suppl. 1):S11. Current interpretive data was last revised 2017. Calcium 9.3 8.5 - 10.3 mg/dL [facility] Bilirubin, total 0.5 0.1 - 1.2 mg/dL [facility] Protein, pl 7.4 6.5 - 8.5 g/dL [facility] Albumin 4.4 3.5 - 5.0 g/dL [facility] Alk phos 67 40 - 130 Units/L [facility] ALT 20 7 - 45 Units/L [facility] AST 29 10 - 45 Units/L [facility] Blood 10/06/2021 2:39 PM TERRITORY ACCOUNT REPRESENTATIVE 10/06/2021 7:52 PM TERRITORY ACCOUNT REPRESENTATIVE us Trenton Lomeli MD LAB BLOOD ORDERABLES Final Result Performing Organization Address City/State/[facility] [place] Phone Number [facility] [address] [address] Department [place] [address] * (ABNORMAL) CBC with auto differential (10/06/2021 2:39 PM TERRITORY ACCOUNT REPRESENTATIVE) WBC 5.6 3.8 - 9.9 K/cumm [facility] Hgb 13.6 11.9 - 15.5 g/dL [facility] Hct 42.7 35.6 - 45.5 % [facility] Plt 338 150 - 400 K/cumm [facility] MPV 9.5 9.1 - 12.3 fL [facility] RBC 4.83 3.90 - 5.20 M/cumm [facility] MCV 88.4 81.3 - 96.4 fL [facility] MCH 28.2 27.1 - 33.3 pg [facility] MCHC 31.9(L) 32.3 - 35.7 g/dL [facility] RDW CV 12.9 11.1 - 14.9 % [facility] RDW SD 41.9 35.7 - 48.1 fL [facility] NRBC abs 0.00 0.00 - 0.01 K/cumm [facility] Blood 10/06/2021 2:39 PM TERRITORY ACCOUNT REPRESENTATIVE 10/06/2021 7:52 PM TERRITORY ACCOUNT REPRESENTATIVE us Trenton Lomeli MD LAB BLOOD ORDERABLES Final Result [place] [id number] [address] Department [place] [address] documented in this encounter Visit Diagnoses Diagnosis Encounter for medical examination to establish care- Primary Nonalcoholic steatohepatitis (ACE) Essential hypertension Unspecified essential hypertension documented in this encounter Discontinued Medications Medication Sig Discontinue Reason Start Date End Da te clidinium-chlordiazePOXI DE (LIBRAX, WITH CLIDINIUM,) 5-2.5 mg per capsule take 1 capsule by oral route 2 times every day before meals 10/02/2016 10/06/2021 metoprolol (LOPRESSOR) 25 mg tablet take 1 Tablet by oral route 2 times every day 10/02/2016 10/06/2021 clonazePAM (KlonoPIN) 1 mg tablet take 1 tablet by oral route 3 times every day 10/02/2016 10/06/2021 drospirenone, contraceptive, 4 mg (28) tablet Take 4 mg by mouth daily 10/06/2021 documented as of this encounter Historical Medications * This list may reflect changes made after this encounter. BIOTIN ORAL Take by mouth multivitamin capsule Take 1 capsule by mouth daily cannabidiol, CBD, (EPIDIOLEX) 100 mg/mL solution Take 5 mg/kg by mouth nightly as needed Lactobacillus acidophilus (PROBIOTIC ORAL) Take by mouth 06/16 drospirenone, contraceptive, 4 mg (28) tablet Take 4 mg by mouth daily 10/06/2021 Slynd 4 mg (28) tablet Take 1 tablet by mouth daily 08/25/2021 08/10/2022 added in this encounter Care Teams Classroom Technology Technician Relationship Specialty Start Date End Date Trenton Lomeli MD PCP - General Family Medicine 10/06/21 Neelima Velazquez MD [address] [address] Consulting Physician Gynecology 10/06/21 documented as of this encounter
--- OUTSIDE RECORDS SUMMARY | 2024-11-04 23:55 | XMS_ITS | Encounter Summary ---
Author Organization [facility] Address [address] [address] Care Team Providers Care Market Reporter Name Role Phone Trenton Lomeli MD Primary Care Provider [phone] Neelima Velazquez MD Unavailable [phone] Encounter Details Date Type Department Care Team (Late st Contact Info) Description 08/11/2022 Telephone [facility] Primary Care at [address] [address] Trenton Lomeli MD [address] [place] [address] [address] [place] [address] Social History Tobacco Use Types Packs/Day Years Used Date Smoking Tobacco: Former Cigarettes 1.5 2012 Alcohol Use Standard Drinks/Week Comments No 0 [...] points, staff should administer the PHQ-9) 0 08/10/2022 Education Answer Date Recorded What is the highest level of school you have completed or the highest degree you have received? 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 I have now sent it. * Telephone Encounter - Carmen Norris - 08/11/2022 11:04 AM CDT Medication Question/Clarification Medication Name(s): amoxacillin What is the question or clarification needed? Pt called to check status of prescription she stated the pharmacy never received If needed, Pharmacy(s) medication(s) should be sent to: [facility] [address] [place] [address] Caller???s Callback #: [phone] Additional Comments: Pt stated that @ her telemedicine appt told her he would prescribe amoxacillin, CS did not see any record of that, called and informed backline and Leda said to let pt know someone will call he back. Does message need to be routed? Yes-Action Needed documented in this encounter Plan of Treatment Not on file documented as of this encounter Visit Diagnoses Not on filedocumented in this encounter Care Teams Market Reporter Relationship Specialty Start Date End Date Trenton Lomeli MD PCP - General Family Medicine 10/06/21 Neelima Velazquez MD [address] [address] Consulting Physician Gynecology 10/06/21 documented as of this encounter
--- OUTSIDE RECORDS SUMMARY | 2024-11-04 23:55 | XMS_ITS | Encounter Summary ---
Author Organization [facility] Address [address] [address] Care Team Providers Care Physician Surgeon Name Role Phone Trenton Lomeli MD Primary Care Provider [phone] Neelima Velazquez MD Unavailable [phone] Reason for Visit * Reason Comments Urinary Symptom UTI symptoms and str ep symptoms Encounter Details Date Type Department Care Team (Late st Contact Info) Description 08/10/2022 3:30 PM CDT Telemedicine [facility] Medical [facility] Primary Care at [address] [address] Trenton Lomeli MD [address] [place] [address] [address] [place] [address] Acute cystitis without hematuria (Primary Dx); Sore throat Social History Tobacco Use Types Packs/Day Years Used Date Smoking Tobacco: Former Cigarettes 1.5 11 2012 Alcohol Use Standard Drinks/Week Comments No [...] on file 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 During the visit, I was located in the office and the patient was located at home [facility]. The patient visit started at 330p and ended at 350p. My total encounter time on 08/10/2022 was 20 minutes which was spent in the activities documented in the note. This includes timespent prior to the visit and after the visit in direct care of the patient. This time does not include time spent in any separately reportable services.. The patient has been informed that the visit may not be secure and acknowledged the information. I have explained the option of participating in a telephone or video visit during the COVID-19 public health emergency to the patient. After being given an opportunity to ask questions about and discuss this type of visit, the patient verbally consented to proceeding with the telephone/video visit.The patient understands that this service replaces an office visit and they may be billed and/or responsible for any applicable copayments. The patient has been informed that the visit may not be secure and acknowledged the information. Subjective/Objective Patient ID: Alia Fabian is a 32 y.o. female. Chief Complaint Urinary Symptom (UTI symptoms and strep symptoms) Strep throat symptoms started today (tm 99.8) Difficulty Urinating This is a new problem. The current episode started in the past 7 days. The problem occurs intermittently. The problem has been waxing and waning. The quality of the pain is described as burning. The pain is at a severity of 5/10. There has been no fever. The fever has been present for Less than 1 day. She is Not sexually active. There is No history of pyelonephritis. Associated symptoms include frequency, nausea and urgency. Pertinent negatives include no chills, discharge, flank pain, hematuria, hesitancy, possible , sweats or vomiting. Current Outpatient Medications: BIOTIN ORAL, Take by mouth, Disp: , Rfl: cannabidiol, CBD, (EPIDIOLEX) 100 mg/mL solution, Take 5 mg/kg by mouth nightly as needed, Disp: , Rfl: hydrOXYzine (ATARAX) 50 mg tablet, Take 50 mg by mouth every 6 (six) hours as needed, Disp: , Rfl: Lactobacillus acidophilus (PROBIOTIC ORAL), Take by mouth, Disp: , Rfl: multivitamin capsule, Take 1 capsule by mouth daily, Disp: , Rfl: Review of Systems Constitutional: Negative for chills. HENT: Positive for sore throat (scratchy). Respiratory: Positive for cough ( when it tickles ). Gastrointestinal: Positive for nausea. Negative for vomiting. Genitourinary: Positive for dysuria, frequency and urgency. Negative for flank pain, hematuria and hesitancy. Vitals The patient does not have a home blood pressure monitor There were no vitals taken for this visit. Physical Exam TELEHEALTH VISIT- UNABLE TO PERFORM No visits with results within 1 Month(s) from this visit. Latest known visit with results is: Office Visit on 03/31/2022 Component Date Value Ref Range Status Inflenza A Ag, POC 03/31/2022 Negative Final Influenza B Ag, POC 03/31/2022 Negative Final COVID-19 Ag POC 03/31/2022 Presumptive Negative Presumptive Negative, Invalid Final Rapid Strep A, POC 03/31/2022 Positive Final Assessment/Plan Diagnoses and all orders for this visit: Acute cystitis without hematuria (Primary) Comments: amoxicillin sent for UTI symptoms, but will want a u/a if not improving Sore throat Comments: she notes it is similar to previous bouts of strep will start empiric treatment follow up if not improving Addendum 08/11: patient tested postive for covid-19. Sending antiviral. Relay to patient it is still under emergency use authorization, so no moth exterminator data. Low amount of interactions of risks, but GI upset is a main one (apart from risk of allergy. She should avoid for 3 months after medication. In that case, she can forgo the amoxicillin. Trenton Lomeli MD This office note has been partially dictated using [employer] software. documented in this encounter Plan of Treatment Not on file documented as of this encounter Visit Diagnoses Diagnosis Acute cystitis without hematuria- Primary Sore throat Acute pharyngitis documented in this encounter Discontinued Medications Medication Sig Discontinue Reason Start Date End Da te Slynd 4 mg (28) tablet Take 1 tablet by mouth daily 08/25/2021 08/10/2022 documented as of this encounter Historical Medications * This list may reflect changes made after this encounter. hydrOXYzine (ATARAX) 50 mg tablet Take 1 tablet (50 mg total) by mouth every 6 (six) hours as needed 07/31/2022 added in this encounter Care Teams Physician Surgeon Relationship Specialty Start Date End Date Trenton Lomeli MD PCP - General Family Medicine 10/06/21 Neelima Velazquez MD [address] [address] Consulting Physician Gynecology 10/06/21 documented as of this encounter
--- OUTSIDE RECORDS SUMMARY | 2024-11-04 23:55 | XMS_ITS | Encounter Summary ---
Author Organization [facility] Address [address] [address] Care Team Providers Care Gastroenterology Teacher Name Role Phone Trenton Lomeli MD Primary Care Provider [phone] Neelima Velazquez MD Unavailable [phone] Encounter Details Date Type Department Care Team (Late st Contact Info) Description 10/06/2021 2:45 PM MORTGAGE LOAN PROCESSOR Lab [facility] Outpatient Lab at [address] [address] Encounter for medical examination to establish care; ACE (nonalcoholic steatohepatitis); Essential hypertension Social History Tobacco Use Types Packs/Day Years Used Date Smoking Tobacco: Former Cigarettes 1.5 11 2 2012 Alcohol Use Standard Drinks/Week Comments No [...] on file 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 Gender Identity Not on file Sexual Orientation Not on file 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 file Not on file Not on file documented as of this encounter Plan of Treatment Not on file documented as of this encounter Visit Diagnoses Diagnosis Encounter for medical examination to establish care ACE (nonalcoholic steatohepatitis) Other chronic nonalcoholic liver disease Essential hypertension Unspecified essential hypertension documented in this encounter Care Teams Gastroenterology Teacher Relationship Specialty Start Date End Date Trenton Lomeli MD PCP - General Family Medicine 10/06/21 Neelima Velazquez MD [address] [address] Consulting Physician Gynecology 10/06/21 documented as of this encounter
--- OUTSIDE RECORDS SUMMARY | 2024-11-04 23:55 | XMS_ITS | Encounter Summary ---
Author Organization [facility] Address [address] [place] [address] Care Team Providers Care Nursing Admin Name Role Phone Trenton Lomeli MD Primary Care Provider [phone] Neelima Velazquez MD Unavailable [phone] Encounter Details Date Type Department Care Team (Latest Contact Info) Description 10/22/2022 2:31 PM MECHANISM INSPECTOR - 10/22/2022 11:59 PM MECHANISM INSPECTOR Hospital Encounter [facility] [id number] [place], [place] [id number] Acute recurrent maxillary sinusitis Discharge Disposition: Discharge to home or self [...] on file Legal Sex Female 4:15 AM MECHANISM INSPECTOR Gender Identity Not on file Sexual Orientation Not on file 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 Not on file Not on file Not [...] capsule Take 1 capsule by mouth daily doxycycline (VIBRAMYCIN) 100 mg capsuleIndication s:Acute recurrent maxillary sinusitis Take 1 tablet/capsul e (100 mg total) by mouth 2 (two) times a day for 7 days 14 tablet/capsule 10/22/2022 10/29/2022 Lactobacillus acidophilus (PROBIOTIC ORAL) Take by mouth 06/16 documented as of this encounter Discharge Disposition Disposition Code Departure Means Destination Discharge to home or self care documented in this encounter Miscellaneous Notes * Result Encounter Note - Gayla Sykes NP - 10/22/2022 11:59 PM MECHANISM INSPECTOR Please notify patient of negative COVID-19/RSV/FLU test. Patient should rest, stay hydrated, and take OTC medications as needed. Monitor symptoms and if they worsen follow up with primary care doctoror ER if needed. ANISM INSPECTOR documented in this encounter Plan of Treatment Not on file documented as of this encounter Procedures Procedure Name Priority Date/Time Associated Diagnosis Comments INFLUENZA A/B, RSV, AND COVID-19 PCR Routine 10/22/2022 2:31 PM MECHANISM INSPECTOR Acute recurrent maxillary sinusitis documented in this encounter Results * Influenza A/B, RSV, and COVID-19 PCR Nasopharyngeal (10/22/2022 2:31 PM MECHANISM INSPECTOR) COVID-19 RNA Negative Negative [facility] Influenza A RNA Negative Negative [facility] Influenza B RNA Negative Negative [facility] RSV RNA Negative Negative [facility] Comment: Interpretive data: This test is performed using the [employer] Xpert Xpress CoV-2/Flu/RSV plus assay. This is a multiplex, real-time reverse transcriptase PCR assay intended for the qualitative detection of nucleic acid from SARS-CoV-2, influenza A, influenza B, and respiratory syncytial virus. This assay has been reviewed by the FDA for Emergency Use Authorization (EUA). The performance characteristics have been verified by the performing laboratory. Results must be considered in the clinical context, and a negative result does not rule out infection. Interpretive Data last revised 2021. Nasopharyngeal 10/22/2022 2: 31 PM MECHANISM INSPECTOR 10/22/2022 4:25 PM MECHANISM INSPECTOR Narrative [facility] - 10/22/2022 5:31 PM MECHANISM INSPECTOR Is the Patient experiencing symptoms consistent with COVID?->Yes Date of Symptom Onset->10/01/22 Reason for testing?->Symptomatic Known exposure to confirmed or suspected COVID-19 case?->No Is the patient experiencing any symptoms consistent with COVID (eg. Fever, cough, shortness of breath)?->Yes What is the reason for testing?->Symptoms of COVID-19 in low-risk group (Batched) Saman Dinero NP LAB MICROBIOLOGY - [facility] Final Result Performing Organization Address City/State/[facility] Co me Phone Number [facility] [phone] [address] [place] [address] documented in this encounter Visit Diagnoses Diagnosis Acute recurrent maxillary sinusitis documented in this encounter Additional Health Concerns Infection Onset Date Last Indicated Resolved Time COVID: Suspected 10/22/2022 10/22/2022 10/22/2022 5:32 PM MECHANISM INSPECTOR documented as of this encounter Care Teams Nursing Admin Relationship Specialty Start Date End Date Trenton Lomeli MD PCP - General Family Medicine 10/06/21 Neelima Velazquez MD [address] [address] Consulting Physician Gynecology 10/06/21 documented as of this encounter
--- OUTSIDE RECORDS SUMMARY | 2024-11-04 23:55 | XMS_ITS | Encounter Summary ---
Author Organization [facility] Address [address] [address] Care Team Providers Care Environmental Science Instructor Name Role Phone Trenton Lomeli MD Primary Care Provider [phone] Neelima Velazquez MD Unavailable [phone] Encounter Details Date Type Department Care Team (Late st Contact Info) Description 11/09/2022 5:45 PM RETAIL CENTER RECEPTIONIST Lab [facility] Outpatient Lab at [address] [address] Essential hypertension Social History Tobacco Use Types [...] on file Legal Sex Female 4:15 AM RETAIL CENTER RECEPTIONIST Gender Identity Not on file Sexual Orientation Not on file 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
--- OUTSIDE RECORDS SUMMARY | 2024-11-04 23:55 | XMS_ITS | Encounter Summary ---
Author Organization [facility] Address [address] [address] Care Team Providers Care Financial Aid Director Name Role Phone Trenton Lomeli MD Primary Care Provider [phone] Neelima Velazquez MD Unavailable [phone] Reason for Visit * Reason Comments Annual Exam physical Encounter Details Date Type Department Care Team (Late st Contact Info) Description 11/09/2022 3:45 PM AIR GRINDER Office Visit [facility] Primary Care at [address] [address] Trenton Lomeli MD [address] [place] [address] [address] [place] [address] Well adult exam (Primary Dx); Screening, lipid; Class 3 severe obesity due to excess calories without serious comorbidity with body mass index (BMI) of 45.0 to 49.9 in adult (HCC); POTS (postural orthostatic tachycardia syndrome); Need for vaccination Social History Tobacco Use Types Packs/Day Years [...] on file Legal Sex Female 4:15 AM AIR GRINDER Gender Identity Not on file Sexual Orientation Not on file 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 Not on file Not on file Not on file documented as of this encounter Last Filed Vital Signs Vital Sign Reading Time Taken Comments Blood Pressure 136/84 11/09/2022 3:44 PM AIR GRINDER Pulse 111 11/09/2022 3:44 PM AIR GRINDER Temperature 36.6 ??C (97.8 ??F) 11/09/2022 3:44 PM CS T Respiratory Rate 16 11/09/2022 3:44 PM AIR GRINDER Oxygen Saturation 98% 11/09/2022 3:44 PM AIR GRINDER Inhaled Oxygen Concentration - - Weight 133.4 kg (294 lb) 11/09/2022 3:44 PM AIR GRINDER Height 171.5 cm (5' 7.5 ) 11/09/2022 3:44 PM AIR GRINDER Body Mass Index 45.37 11/09/2022 3:44 PM AIR GRINDER documented in this encounter Patient Instructions * Patient Instructions* Trenton Lomeli MD - 11/09/2022 3:45 PM AIR GRINDER Thanks for coming in today! My medical assistants and I are thankful you have trusted us with your care, and hope that you received EXCELLENT care today! Please do not hesitate to call if you have any questions or concerns at [phone]. You may receive a phone call, text, MYCHART message, or e-mail asking about your care today. We would love to hear your feedback on how EXCELLENT your care wastoday! Wishing you better health, always. Dr. Lomeli GRINDER * Attachments The following attachments cannot be sent through Care Everywhere. * DASH Eating Plan (General Information) (Cameroonian) documented in this encounter Progress Notes * Trenton Lomeli MD - 11/09/2022 3:45 PM CST SUBJECTIVE: 32 y.o. female for annual routine checkup. Current Outpatient Medications Medication Sig Dispense Refill BIOTIN ORAL Take by mouth cannabidiol, CBD, (EPIDIOLEX) 100 mg/mL solution Take 5 mg/kg by mouth nightly as needed hydrOXYzine (ATARAX) 50 mg tablet Take 50 mg by mouth every 6 (six) hours as needed multivitamin capsule Take 1 capsule by mouth daily Lactobacillus acidophilus (PROBIOTIC ORAL) Take by mouth (Patient not taking: Reported on 11/09/2022) No current facility-administered medications for this visit. Allergies: Topiramate, Aripiprazole, Lamictal [lamotrigine], Paroxetine, Augmentin [amoxicillin-potclavulanate], Pseudoephedrine, and Serotonin Patient's last menstrual period was 10/29/2022 (approximate). ROS: Feeling well. No dyspnea or chest pain on exertion. Notes rapid heart rate and lightheadednessresultant from position changes as before. No abdominal pain, change in bowel habits, black or bloody stools. No urinary tract symptoms. DRAWING BOX TENDER ROS: normal menses, no abnormal bleeding, pelvic pain or discharge, no breast pain or new or enlarging lumps on self exam. No neurological complaints. Past Medical History: Diagnosis Date Anxiety and depression GERD (gastroesophageal reflux disease) HX OTHER MEDICAL anxiety, depression, palpitations, htn, obesity, d; Comments: MAF 10/02/2016 - Menstrual problem Morbid obesity (CMS/HCC) (HCC) PCOS (polycystic ovarian syndrome) 10/06/2021 Past Surgical History: Procedure Laterality Date WISDOM TOOTH EXTRACTION Oral Surgery Tooth Extraction [place] Tooth - (Added by TW Conv) Family History Problem Relation Age of Onset Diabetes type I Mother 10 Diabetes mellitus type 1; /Family history of type 1 diabetes mellitus - (Added by TW Conv) Other Mother Cardiac arrhythmias; Transient ischemic attack Mother Transient ischemic attack; Kidney disease Mother Family history of kidney disease - (Added by TW Conv) Heart failure Mother Family history of congestive heart failure - (Added by TW Conv) Hypertension Mother Family history of hypertension - (Added by TW Conv) Essential Tremor Mother Family history of benign essential tremor - (Added by TW Conv) Alcohol abuse Mother COPD Mother Diabetes Mother Drug abuse Mother Heart attack Mother Early Mother Memory loss Mother Mental illness Mother Stroke Mother Vision loss Mother Diabetes type II Maternal Grandmother Family history of type 2 diabetes mellitus - (Added by TW Conv) Migraines Other Family history of migraine headaches - (Added by TW Conv) Alcohol abuse Father No Known Problems Maternal Grandfather Dementia Paternal Grandmother Cirrhosis Paternal Grandfather Drug abuse Paternal Half-Brother No Known Problems Paternal Half-Sister Social History Tobacco Use Smoking status: Former Packs/day: 1.25 Years: 11.00 Pack years: 13.75 Types: Cigarettes Start date: 11/01/2001 Quit date: 11/01/2014 Years since quittin.0 Smokeless tobacco: Never Substance and Sexual Activity Drug use: Not Currently Types: Marijuana Comment: now just uses CBD Sexual activity: Not Currently Partners: Female control/protection: OCP Alcohol Use: Not on file PHQ Screening Over the last 2 weeks, how often have you been bothered by any of the following problems? Little Interest or Pleasure in Doing Things: Not at all Feeling Down, Depressed, or Hopeless: Not at all PHQ-2 Total Score (If total score is 3 or more points, staff should administer the PHQ-9): 0 Over the past 2 weeks, how often have you been bothered by any of the following problems? Little Interest or Pleasure in Doing Things: Not at all Feeling Down, Depressed, or Hopeless: Not at all PHQ-2 Total Score (If total score is 3 or more points, staff should administer the PHQ-9): 0 OBJECTIVE: The patient appears well, alert, oriented x 3, in no distress. Morbidly obese BP 136/84 (BP Location: Left arm, Patient Position: Sitting) Pulse 111 Temp 36.6 ??C (97.8 ??F)(Temporal) Resp 16 Ht 171.5 cm (5' 7.5 ) Wt 133.4 kg (294 lb) LMP 10/29/2022 (Approximate) SpO2 98% BMI 45.37 kg/m?? ENT normal. Neck supple. No adenopathy or thyromegaly. CRISTINE. Lungs are clear, good air entry, no wheezes, rhonchi or rales. S1 and S2 normal, no murmurs, regular rate and rhythm. Abdomen soft without tenderness, guarding, mass or organomegaly. Extremities show no edema, normal peripheral pulses. Neurological is normal, no focal findings. BREAST EXAM: deferred PELVIC EXAM: deferred Diagnoses and all orders for this visit: Well adult exam (Primary) Assessment & Plan: A(n) yearly well adult visit has been [...] documented as per the medical record and di scussed with patient along with risks vs benefits. discussed adequate intake of calcium and vitamin D additional lab tests per orders return annually or prn Screening, lipid - Lipid panel; Future Class 3 severe obesity due to excess calories without serious comorbidity with body mass index (BMI) of 45.0 to 49.9 in adult (HCC) Assessment & Plan: BMI Follow-up includes: nutrition counseling, exercise counseling and education provided. POTS (postural orthostatic tachycardia syndrome) Comments: will send for second opinion Orders: - Ambulatory referral to Cardiology; Future Need for vaccination Comments: deferred GRINDER documented in this encounter Miscellaneous Notes * Assessment & Plan Note - Trenton Lomeli MD - 11/09/2022 4:02 PM AIR GRINDER Associated Problem(s): Morbid (severe) obesity due to excess calories (HCC) BMI Follow-up includes: nutrition counseling, exercise counseling and education provided. GRINDER * Assessment & Plan Note - Trenton Lomeli MD - 11/09/2022 4:01 PM AIR GRINDER Associated Problem(s): Well adult exam A(n) yearly well adult visit has been [...] documented as per the medical record and di scussed with patient along with risks vs benefits. discussed adequate intake of calcium and vitamin D additional lab tests per orders return annually or prn GRINDER GRINDER documented in this encounter Plan of Treatment Not on file documented as of this encounter Results * (ABNORMAL) Lipid panel (11/09/2022 4:21 PM AIR GRINDER) Cholesterol 235(H) 30 - 199 mg/dL [facility] Comment: Interpretive Data Ages [...] Data was last revised on 2018. Triglycerides 231(H) <=149 mg/dL [facility] Comment: Interpretive Data [...] Data was last revised on 2018. HDL 38(L) >=40 mg/dL [facility] Comment: Interpretive Data Ages [...] was last revised on 2018. LDL, calculated 151(H) <=129 mg/dL ARI Comment: Interpretive Data Ages [...] was last revised on 2018. Non-HDL Cholesterol 197 mg/dL ARI Comment: Interpretive Data Ages < [...] last revised on 2018. Chol/HDL ratio 6 [facility] Blood 11/09/2022 4:21 PM AIR GRINDER 11/09/2022 7:19 PM AIR GRINDER us Trenton Lomeli MD LAB BLOOD ORDERABLES Final Result [facility] [id number] [facility] Department [place] [address] documented in this encounter Visit Diagnoses Diagnosis Well adult exam- Primary Routine general medical examination at a health care facility Screening, lipid Class 3 severe obesity due to excess calories without serious comorbidity with body mass index (BMI) of 45.0 to 49.9 in adult (HCC) POTS (postural orthostatic tachycardia syndrome) Unspecified tachycardia Need for vaccination Need for prophylactic vaccination and inoculation against unspecified single disease documented in this encounter Care Teams Financial Aid Director Relationship Specialty Start Date End Date Trenton Lomeli MD PCP - General Family Medicine 10/06/21 Neelima Velazquez MD [address] [address] Consulting Physician Gynecology 10/06/21 documented as of this encounter
--- OUTSIDE RECORDS SUMMARY | 2024-11-04 23:55 | XMS_ITS | Encounter Summary ---
Author Organization [facility] Address [address] [place] [address] Care Team Providers Care Toilet Products Molder Name Role Phone Trenton Lomeli MD Primary Care Provider [phone] Neelima Velazquez MD Unavailable [phone] Encounter Details Date Type Department Care Team (Latest Contact Info) Description 10/03/2022 1:52 PM FUNERAL GREETER - 10/03/2022 11:59 PM FUNERAL GREETER Hospital Encounter [facility] [address] [place] [address] Acute non-recurrent pansinusitis Discharge Disposition: Discharge to home or self [...] on file Legal Sex Female 4:15 AM FUNERAL GREETER Gender Identity Not on file Sexual Orientation Not on file 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 Not on file Not on file Not [...] capsule Take 1 capsule by mouth daily amoxicillin 500 mg tablet/capsuleIndi cations:Acute non-recurrent pansinusitis Take 1 tablet/capsul e (500 mg total) by mouth 2 (two) times a day for 7 days 14 tablet/capsule 10/03/2022 2 Lactobacillus acidophilus (PROBIOTIC ORAL) Take by mouth 06/16 3 documented as of this encounter Discharge Disposition Disposition Code Departure Means Destination Discharge to home or self care documented in this encounter Plan of Treatment Not on file documented as of this encounter Procedures Procedure Name Priority Date/Time Associated Diagnosis Comments THROAT CULTURE Routine 10/03/2022 1:52 PM FUNERAL GREETER Acute non-recurrent pansinusitis documented in this encounter Results * Throat culture Throat (10/03/2022 1:52 PM FUNERAL GREETER) Report Final Report: No growth of pathogens. [facility]LAY Comment:Testing performed by : [facility], [address] [place] [address]., [id number] Throat 10/03/2022 1:52 PM FUNERAL GREETER 10/04/2022 1:26 AM FUNERAL GREETER Narrative [facility] - 10/05/2022 1:28 PM FUNERAL GREETER Testing performed by [facility] Microbiology Laboratory ([phone]). us Gayla Sykes NP LAB MICROBIOLOGY - GENERAL ORD ERABLES Final Result [facility] [id number] Department [place] [address] documented in this encounter Visit Diagnoses Diagnosis Acute non-recurrent pansinusitis documented in this encounter Care Teams Toilet Products Molder Relationship Specialty Start Date End Date Trenton Lomeli MD PCP - General Family Medicine 10/06/21 Neelima Velazquez MD [address] [address] Consulting Physician Gynecology 10/06/21 documented as of this encounter
--- OUTSIDE RECORDS SUMMARY | 2024-11-04 23:55 | XMS_ITS | Encounter Summary ---
Author Organization [facility] Medical [facility] Address [address] [address] Care Team Providers Care Donation Specialist Name Role Phone Trenton Lomeli MD Primary Care Provider [phone] Neelima Velazquez MD Unavailable [phone] Reason for Visit * Reason Comments Cold Symptoms Patient presents tod with fever, nasal drainage, sore throat, and chills.The patient's symptoms started last Wednesday. For the first 3 days, patient had chills and fevers. Encounter Details Date Type Department Care Team (Late st Contact Info) Description 10/03/2022 12:45 PM GENERAL ADMINISTRATOR Office Visit [facility] [address] [phone] Gayla Sykes, SEAL MIXING OPERATOR [address] [place] [id number] Acute non-recurrent pansinusitis (Primary Dx) Social History Tobacco Use Types Packs/Day Years Used Date Smoking Tobacco: Former Cigarettes 1.5 11 2 - 2012 Tobacco Cessation:Counseling Given: Not Answered Alcohol Use Standard Drinks/Week Comments No 0 [...] on file Legal Sex Female 4:15 AM GENERAL ADMINISTRATOR Gender Identity Not on file Sexual Orientation Not on file 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44 10/03/2022 12:39 PM GENERAL ADMINISTRATOR documented in this encounter Patient Instructions * Patient Instructions* Gayla Sykes, SEAL MIXING OPERATOR - 10/03/2022 12:45 PM GENERAL ADMINISTRATOR Symptomatic treatments include: -Over the counter antihistamine such as loratadine (Claritin) or cetirizine (Zyrtec) to reduce secretions. The D formula includes pseudoephedrine and can be helpful as a decongestant but SHOULD NOTBE USED IF YOU HAVE A HISTORY OF HIGH BLOOD PRESSURE. -Coricidin HBP may be taken for congestion if you have a history of high blood pressure. -Tessalon, Dextromethorphan (Robitussin) or Delsym for cough -Guafenesin (Mucinex) to thin secretions -Acetaminophen (Tylenol), ibuprofen (Motrin, Advil), or Aleve (naproxen) for pain or fever. -The use of hypertonic saline to irrigate nasal passageways can be helpful. Over the counter systems include Neti Pot and Nasopure. Use with distilled water. -Salt water gargles and throat lozenges can be helpful for sore throat. -To prevent spreading the illness to others cover your sneeze and cough into your arm and not your hand, don't allow others to eat or drink with the same utensils or glass, and use hand transcription manager before touching people or common surfaces. -Apply warm packs to face to facilitate sinus drainage. - Use cool mist humidifier in bedroom at night. -Increase fluid consumption and Rest. -Follow up with your PCP in 1 week or sooner if symptoms worsen or are not improving as planned. -If you experience any shortness of breath, chest pain, or high fever >101, go to the Emergency Room. GO TO EMERGENCY ROOM OR CALL 911 WITH ANY OF THE FOLLOWING SYMPTOMS: HIGH, PERSISTENT FEVER >101; SWELLING, INFLAMMATION, OR REDNESS AROUND EYES, ABNORMAL EYE MOVEMENTS, CHEST PAIN, SHORTNESS OF BREATH, VISION CHANGES (DOUBLE VISION OR IMPAIRED VISION); SEVERE HEADACHE; ALTERED MENTAL STATUS. THESE ARE SIGNS OF A RARE, BUT SERIOUS COMPLICATION AND REQUIRES IMMEDIATE EMERGENCY ATTENTION. RAL ADMINISTRATOR * Attachments The following attachments cannot be sent through Care Everywhere. * Sinusitis (Kitchen Stewardess) (Singaporean) documented in this encounter Ordered Prescriptions Prescription Sig Dispense Quantity Refills Last Filled Start Date End Date amoxicillin 500 mg tablet/capsuleIndic ations:Acute non-recurrent pansinusitis Take 1 tablet/caps ule (500 mg total) by mouth 2 (two) times a day for 7 days 14 tablet/capsule 10/03/2022 10/10/2022 documented in this encounter Progress Notes * Gayla Sykes NP - 10/03/2022 12:45 PM CST Images from the original note were not included. Patient ID: Alia Fabian is a 32 y.o. female followed by Trenton Lomeli MD Chief Complaint Patient presents with Cold Symptoms Patient presents today with fever, nasal drainage, sore throat, and chills. The patient's symptoms started last Wednesday. For the first 3 days, patient had chills and fevers. Patient presents to the clinic with reports of fever, congestion, sore throat, runny nose, sinus pressure, headaches, and chills for over a week. Patient denies chest pain, shortness is a breath, vomiting, rash, and abdominal pain. Patient has taken xrti-wos-[id number] cold medications for her symptoms. Patient is vaccinated against COVID. Patient reports no known sick contacts. Review of Systems Constitutional: Positive for chills and fever. Negative for fatigue. HENT: Positive for congestion, rhinorrhea and sore throat. Negative for ear pain and postnasal drip. Respiratory: Positive for cough. Negative for chest tightness, shortness of breath and wheezing. Cardiovascular: Negative for chest pain. Gastrointestinal: Negative for diarrhea, nausea and vomiting. Musculoskeletal: Negative for myalgias. Neurological: Negative for headaches. Vitals: 10/03/22 1239 BP: 144/91 BP Location: Left arm Patient Position: Sitting Pulse: 104 Resp: 28 Temp: 37.1 ??C (98.8 ??F) TempSrc: Oral SpO2: 95% Weight: 130.6 kg (288 lb) Height: 171.5 cm (5' 7.5 ) Recent Results (from the past 24 hour(s)) POCT rapid strep A Collection Time: 10/03/22 12:58 PM Result Value Ref Range Rapid Strep A, POC Negative POC Influenza A/B, COVID-19 antigen Collection Time: 10/03/22 1:04 PM Result Value Ref Range Inflenza A Ag, POC Negative Negative Influenza B Ag, POC Negative Negative COVID-19 Ag POC Presumptive Negative Presumptive Negative, Invalid Physical Exam Vitals reviewed. Constitutional: General: She is not in acute distress. Appearance: She is well-developed. She is not ill-appearing. HENT: Right Ear: Ear canal and external ear normal. A middle ear effusion is present. Tympanic membrane is not injected, erythematous or bulging. Left Ear: Ear canal and external ear normal. A middle ear effusion is present. Tympanic membrane isnot injected, erythematous or bulging. Nose: Congestion and rhinorrhea present. Rhinorrhea is clear. Right Turbinates: Swollen. Left Turbinates: Swollen. Right Sinus: Maxillary sinus tenderness and frontal sinus tenderness present. Left Sinus: Maxillary sinus tenderness and frontal sinus tenderness present. Mouth/Throat: Lips: Jewell. Mouth: Mucous membranes are moist. Pharynx: Uvula midline. No pharyngeal swelling, oropharyngeal exudate or posterior oropharyngeal erythema. Comments: Post nasal drainage seen in back of throat Cardiovascular: Rate and Rhythm: Normal rate and regular rhythm. Pulmonary: Effort: Pulmonary effort is normal. No respiratory distress. Breath sounds: Normal breath sounds. No decreased breath sounds, wheezing or rhonchi. Comments: Cough observed Lymphadenopathy: Cervical: Cervical adenopathy present. Right cervical: Superficial cervical adenopathy present. Left cervical: Superficial cervical adenopathy present. Skin: General: Skin is warm and dry. Neurological: Mental Status: She is alert and oriented to person, place, and time. Diagnoses and all orders for this visit: Acute non-recurrent pansinusitis (Primary) - POC Influenza A/B, COVID-19 antigen - Influenza A/B, RSV, and COVID-19 PCR Nasopharyngeal; Future - POCT rapid strep A - amoxicillin 500 mg tablet/capsule; Take 1 tablet/capsule (500 mg total) by mouth 2 (two) times a day for 7 days Orders Placed This Encounter Procedures Influenza A/B, RSV, and COVID-19 PCR Nasopharyngeal Standing Status: Future Standing Expiration Date: 10/03/2023 Order Specific Question: Is the Patient experiencing symptoms consistent with COVID? Answer: Yes Order Specific Question: Date of Symptom Onset Answer: 09/25/2022 Order Specific Question: Reason for testing? Answer: Symptomatic POC Influenza A/B, COVID-19 antigen Order Specific Question: Is the Patient experiencing symptoms consistent with COVID? Answer: Yes Order Specific Question: Date of Symptom Onset Answer: 09/26/2022 Order Specific Question: Is the patient hospitalized? Answer: No Order Specific Question: Is the patient admitted to an ICU? Answer: No Order Specific Question: Is this the first COVID-19 test for this patient? Answer: No Order Specific Question: Does the patient currently work in a healthcare facility with direct patient contact? Answer: No Order Specific Question: Is the patient a resident of a congregate care or living setting? Answer: No Order Specific Question: ? Answer: No POCT rapid strep A Assessment/Plan Symptomatic treatments include: -Over the counter antihistamine such as loratadine (Claritin) or cetirizine (Zyrtec) to reduce secretions. The D formula includes pseudoephedrine and can be helpful as a decongestant but SHOULD NOTBE USED IF YOU HAVE A HISTORY OF HIGH BLOOD PRESSURE. -Coricidin HBP may be taken for congestion if you have a history of high blood pressure. -Tessalon, Dextromethorphan (Robitussin) or Delsym for cough -Guafenesin (Mucinex) to thin secretions -Acetaminophen (Tylenol), ibuprofen (Motrin, Advil), or Aleve (naproxen) for pain or fever. -The use of hypertonic saline to irrigate nasal passageways can be helpful. Over the counter systems include Neti Pot and Nasopure. Use with distilled water. -Salt water gargles and throat lozenges can be helpful for sore throat. -To prevent spreading the illness to others cover your sneeze and cough into your arm and not your hand, don't allow others to eat or drink with the same utensils or glass, and use hand transcription manager before touching people or common surfaces. -Apply warm packs to face to facilitate sinus drainage. - Use cool mist humidifier in bedroom at night. -Increase fluid consumption and Rest. -Follow up with your PCP in 1 week or sooner if symptoms worsen or are not improving as planned. -If you experience any shortness of breath, chest pain, or high fever >101, go to the Emergency Room. GO TO EMERGENCY ROOM OR CALL 911 WITH ANY OF THE FOLLOWING SYMPTOMS: HIGH, PERSISTENT FEVER >101; SWELLING, INFLAMMATION, OR REDNESS AROUND EYES, ABNORMAL EYE MOVEMENTS, CHEST PAIN, SHORTNESS OF BREATH, VISION CHANGES (DOUBLE VISION OR IMPAIRED VISION); SEVERE HEADACHE; ALTERED MENTAL STATUS. THESE ARE SIGNS OF A RARE, BUT SERIOUS COMPLICATION AND REQUIRES IMMEDIATE EMERGENCY ATTENTION. Lungs CTA, O2 Saturation @95%/RA, low suspicion for pneumonia at this time. Will recommend supportive care for symptoms with f/u precautions including signs/symptoms warranting ER evaluation. Discussed home self-care, follow up needs, and signs and symptoms that warrant immediate medical attention/ER evaluation including worsening fever, increased shortness of breath, severe N/V/D, or anyother worrisome symptoms Reviewed isolation/quarantine protocols Discussed symptomatic relief of symptoms Advised to rest and increase oral fluid intake Advised to stay out of work and work release given explaining when patient can return to work Patient Education Sinusitis CUTTING TOOL SHARPENER: Sinusitis is inflammation or infection of your sinuses. It is most often caused by a virus. Acute sinusitis may last up to 12 weeks. Chronic sinusitis lasts longer than 12 weeks. Recurrent sinusitis means you have 4 or more times in 1 year. Common symptoms include the following: Fever Pain, pressure, redness, or swelling around the forehead, cheeks, or eyes Thick yellow or green discharge from your nose Tenderness when you touch your face over your sinuses Dry cough that happens mostly at night or when you lie down Headache and face pain that is worse when you lean forward Tooth pain, or pain when you chew Seek care immediately if: Your eye and eyelid are red, swollen, and painful. You cannot open your eye. You have vision changes, such as double vision. Your eyeball bulges out or you cannot move your eye. You are more sleepy than normal, or you notice changes in your ability to think, move, or talk. You have a stiff neck, a fever, or a bad headache. You have swelling of your forehead or scalp. Contact your healthcare provider if: Your symptoms do not improve after 3 days. Your symptoms do not go away after 10 days. You have nausea and are vomiting. Your nose is bleeding. You have questions or concerns about your condition or care. Treatment for sinusitis: Your symptoms may go away on their own. Your healthcare provider may recommend watchful waiting for up to 10 days before starting antibiotics. You may need any of the following: Acetaminophen decreases pain and fever. It is available without a doctor's order. Ask how much to take and how often to take it. Follow directions. Read the labels of all other medicines you are using to see if they also contain acetaminophen, or ask your doctor or pharmacist. Acetaminophen can cause liver damage if not taken correctly. Do not use more than 4 grams (4,000 milligrams) total of acetaminophen in one day. NSAIDs , such as ibuprofen, help decrease swelling, pain, and fever. This medicine is available with or without a doctor's order. NSAIDs can cause stomach bleeding or kidney problems in certain people. If you take blood thinner medicine, always ask your healthcare provider if NSAIDs are safe for you. Always read the medicine label and follow directions. Nasal steroid sprays may help decrease inflammation in your nose and sinuses. Decongestants help reduce swelling and drain mucus in the nose and sinuses. They may help you breathe easier. Antihistamines help dry mucus in the nose and relieve sneezing. Antibiotics help treat or prevent a bacterial infection. Take your medicine as directed. Contact your healthcare provider if you think your medicine is not helping or if you have side effects. Tell him or her if you are allergic to any medicine. Keep a list of the medicines, vitamins, and herbs you take. Include the amounts, and when and why you take them. Bring the list or the pill bottles to follow-up visits. Carry your medicine list with you in case of an emergency. Self-care: Rinse your sinuses. Use a sinus rinse device to rinse your nasal passages with a saline (salt water) solution or distilled water. Do not use tap water. This will help thin the mucus in your nose and rinse away pollen and dirt. It will also help reduce swelling so you can breathe normally. Ask your healthcare provider how often to do this. Breathe in steam. Heat a bowl of water until you see steam. Lean over the bowl and make a tent overyour head with a large towel. Breathe deeply for about 20 minutes. Be careful not to get too close to the steam or burn yourself. Do this 3 times a day. You can also breathe deeply when you take a hot shower. Sleep with your head elevated. Place an extra pillow under your head before you go to sleep to helpyour sinuses drain. Drink liquids as directed. Ask your healthcare provider how much liquid to drink each day and whichliquids are best for you. Liquids will thin the mucus in your nose and help it drain. Avoid drinks that contain alcohol or caffeine. Do not smoke, and avoid secondhand smoke. Nicotine and other chemicals in cigarettes and cigars canmake your symptoms worse. Ask your healthcare provider for information if you currently smoke and need help to quit. E-cigarettes or smokeless tobacco still contain nicotine. Talk to your healthcare provider before you use these products. Prevent the spread of germs that cause sinusitis: Wash your hands often with soap and water. Wash your hands after you use the bathroom, change a child's diaper, or sneeze. Wash your hands before youprepare or eat food. Follow up with your healthcare provider as directed: You may be referred to an ear, nose, and throat specialist. Write down your questions so you remember to ask them during your visits. ?? 2017 [employer] Information is for End User's use only and may not be sold, redistributed or otherwise used for commercial purposes. All illustrations and images included in CareNotes?? are the copyrighted property of [employer]. or [employer]. The above information is an bus aide only. It is not intended as medical advice for individual conditions or treatments. Talk to your doctor, nurse or pharmacist before following any medical regimen to see if it is safe and effective for you. Gayla Sykes NP RAL ADMINISTRATOR documented in this encounter Miscellaneous Notes * Addendum Note - Karmen Reyes CMA - 10/03/2022 12:45 PM CSTAddended by: KARMEN REYES on: 10/03/2022 01:51 PM Modules accepted: Orders RAL ADMINISTRATOR documented in this encounter Plan of Treatment Not on file documented as of this encounter Procedures Procedure Name Priority Date/Time Associated Diagnosis Comments POC INFLUENZA A/B, COVID-19 ANTIGEN Routine 10/03/2022 1:04 PM GENERAL ADMINISTRATOR Acute non-recurrent pansinusitis POCT RAPID STREP Routine 10/03/2022 12:5 8 PM GENERAL ADMINISTRATOR Acute non-recurrent pansinusitis documented in this encounter Results * Throat culture Throat (10/03/2022 1:52 PM GENERAL ADMINISTRATOR) Report Final Report: No growth of pathogens. ARI CLAY Comment:Testing performed by : [facility], [address] [facility], [place]., [address] Throat 10/03/2022 1:52 PM GENERAL ADMINISTRATOR 10/04/2022 1:26 AM GENERAL ADMINISTRATOR Narrative ARI CLAY - 10/05/2022 1:28 PM GENERAL ADMINISTRATOR Testing performed by [facility] ([phone]). Gayla M. Trower SEAL MIXING OPERATOR LAB MICROBIOLOGY - GENERAL ORD ERABLES Final Result ARI CLAY [id number] [address] Department [place] [address] * POC Influenza A/B, COVID-19 antigen (10/03/2022 1:04 PM GENERAL ADMINISTRATOR) Influenza A Ag, POC Negative Negative [facility] Influenza B Ag, POC Negative Negative [facility] COVID-19 Ag POC Presumptive Negative Presumptive Negative, Invalid [facility] Nasal 10/03/2022 1:04 PM GENERAL ADMINISTRATOR us Gayla Sykes SEAL MIXING OPERATOR POINT OF CARE TEST ORDERABLES Final Result Performing Organization Address City/[facility] Co de Phone Number [facility] [address] * POCT rapid strep A (10/03/2022 12:58 PM GENERAL ADMINISTRATOR) Rapid Strep A, POC Negative Swab 10/03/2022 12:5 8 PM GENERAL ADMINISTRATOR us Gayla Sykes SEAL MIXING OPERATOR POINT OF CARE TEST ORDERABLES Final Result documented in this encounter Visit Diagnoses Diagnosis Acute non-recurrent pansinusitis- Primary Acute non-recurrent pansinusitis documented in this encounter Additional Health Concerns Infection Onset Date Last Indicated Resolved Time COVID: Suspected 10/03/2022 10/03/2022 10/03/2022 1:05 PM GENERAL ADMINISTRATOR documented as of this encounter Care Teams Donation Specialist Relationship Specialty Start Date End Date Trenton Lomeli MD PCP - General Family Medicine 10/06/21 Neelima Velazquez MD [address] [place] [address] Consulting Physician Gynecology 10/06/21 documented as of this encounter
--- OUTSIDE RECORDS SUMMARY | 2024-11-04 23:55 | XMS_ITS | Encounter Summary ---
Author Organization [facility] Address [address] [address] Care Team Providers Care Inbound Customer Service Representative Name Role Phone Trenton Lomeli MD Primary Care Provider [phone] Neelima Velazquez MD Unavailable [phone] Reason for Visit * Reason Onset Date Comments Call Back 11/13/2022 Encounter Details Date Type Department Care Team (Late st Contact Info) Description 11/13/2022 Telephone [facility] Primary Care at [address] [phone] Trenton Lomeli MD [address] [place] [address] [address] [place] [address] Call Back Social History Tobacco Use Types Packs/Day Years [...] on file Legal Sex Female 4:15 AM AREA SUPERVISOR Gender Identity Not on file Sexual Orientation Not on file 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 I let the patient know per Dr. Lomeli and she did understand the message It would have affected the triglycerides may be, but the cholesterol usually lags. In other words, I do not believe that eating appreciably affected the cholesterol levels. Take the medicine. Caller???s Call back #: [phone] Does message need to be routed? Yes-Action Needed SUPERVISOR documented in this encounter Plan of Treatment Not on file documented as of this encounter Visit Diagnoses Not on filedocumented in this encounter Care Teams Inbound Customer Service Representative Relationship Specialty Start Date End Date Trenton Lomeli MD PCP - General Family Medicine 10/06/21 Neelima Velazquez MD [address] [address] Consulting Physician Gynecology 10/06/21 documented as of this encounter
--- OUTSIDE RECORDS SUMMARY | 2024-11-04 23:55 | XMS_ITS | Encounter Summary ---
Author Organization [facility] Medical [facility] Address [address] [address] Care Team Providers Care Manager Oncology Name Role Phone Trenton Lomeli MD Primary Care Provider [phone] Neelima Velazquez MD Unavailable [phone] Reason for Visit * Reason Onset Date Comments Test Results 11/10/2022 Encounter Details Date Type Department Care Team (Late st Contact Info) Description 11/10/2022 Telephone [facility] Primary Care at [address] [address] rTenton Lomeli MD [address] [place] [address] [address] [place] [address] Test Results Social History Tobacco Use Types Packs/Day Years [...] on file Legal Sex Female 4:15 AM FERMENTING CELLARS RECEIVER Gender Identity Not on file Sexual Orientation Not on file 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 ENTING CELLARS RECEIVER * Telephone Encounter - Renee Disla - 11/10/2022 3:13 PM CST Test Result Request Type of test: lab work Date of test: 11/09/22 Where was the test performed at?[facility] Did provider dictate result yet? Yes Where were results relayed from in the chart? Labs Tab Caller's Callback #: [phone] Additional Questions/Comments: Patient states that she had eaten about 3 hours before she did her lipid panel. She had some popcorn, cashews, and a protein bar. In addition, she states she had a pretty heavy dinner just over 12 hours before the lab. She would like to know if this would effect her results before she agrees to start medication. Please call patient to advise. Does message need to be routed?Yes-Action Needed ENTING CELLARS RECEIVER documented in this encounter Plan of Treatment Not on file documented as of this encounter Visit Diagnoses Not on filedocumented in this encounter Care Teams Manager Oncology Relationship Specialty Start Date End Date Trenton Lomeli MD PCP - General Family Medicine 10/06/21 Neelima Velazquez MD [address] [address] Consulting Physician Gynecology 10/06/21 documented as of this encounter
--- OUTSIDE RECORDS SUMMARY | 2024-11-04 23:55 | XMS_ITS | Encounter Summary ---
Author Organization [facility] Address [address] [address] Care Team Providers Care Special Needs Bus Driver Name Role Phone Trenton Lomeli MD Primary Care Provider [phone] Neelima Velazquez MD Unavailable [phone] Reason for Visit * Reason Comments URI Seen on 10/03/22 give n amox, symptoms no better- Yellow snot, congestion, fever (99-100). 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 Not on file Not on file Not on file documented as of this encounter Last Filed Vital Signs Vital Sign Reading Time Taken Comments Blood Pressure 142/85 10/22/2022 2:23 PM ETL DATA ARCHITECT Pulse 90 10/22/2022 2:53 PM ETL DATA ARCHITECT Temperature 37.1 ??C (98.8 ??F) 10/22/2022 2:23 PM CS T Respiratory Rate 18 10/22/2022 2:23 PM ETL DATA ARCHITECT Oxygen Saturation 100% 10/22/2022 2:23 PM ETL DATA ARCHITECT Inhaled Oxygen Concentration - - Weight 133.4 kg (294 lb) 10/22/2022 2:23 PM ETL DATA ARCHITECT Height 171.5 cm (5' 7.5 ) 10/22/2022 2:23 PM ETL DATA ARCHITECT Body Mass Index 45.37 10/22/2022 2:23 PM ETL DATA ARCHITECT documented in this encounter Ordered Prescriptions Prescription Sig Dispense Quantity Refills Last Filled Start Date End Date doxycycline (VIBRAMYCIN) 100 mg capsuleIndications: Acute recurrent maxillary sinusitis Take 1 tablet/caps ule (100 mg total) by mouth 2 (two) times a day for 7 days 14 tablet/capsule 10/22/2022 10/29/2022 documented in this encounter Progress Notes * Saman Dinero NP - 10/22/2022 2:45 PM CST Images from the original note were not included. Subjective/Objective Patient ID: Alia Fabian is a 32 y.o. female. Chief Complaint URI (Seen on 10/03/22 given amox, symptoms no better- Yellow snot, congestion, fever (99-100). cough) Pt presents to [facility] with complaints of sinus symptoms. Patient was seen on 10/03/2022 and diagnosed with sinusitis, patient was given amoxicillin 500 mg b.i.d. for 7 days. Patient states she took antibiotics as prescribed. Symptoms got a little bit better but never resolved and have worsened in the last week or so. Patient denies any fever. Patient is taking Elderberry, zinc, vit c and d Review of Systems Constitutional: Negative for appetite change, chills, diaphoresis, fatigue and fever. HENT: Positive for congestion, postnasal drip and rhinorrhea. Negative for ear discharge, ear pain,sinus pressure, sinus pain, sneezing and sore throat. Respiratory: Negative for cough, chest tightness, shortness of breath and wheezing. Cardiovascular: Negative for chest pain. Gastrointestinal: Negative for abdominal pain, diarrhea, nausea and vomiting. Musculoskeletal: Negative for myalgias, neck pain and neck stiffness. Skin: Negative for rash. Neurological: Negative for dizziness and headaches. Hematological: Negative for adenopathy. Physical Exam Vitals and nursing note reviewed. Constitutional: General: She is awake. She is not in acute distress. Appearance: Normal appearance. HENT: Head: Normocephalic and atraumatic. Right Ear: Tympanic membrane and ear canal normal. Left Ear: Tympanic membrane and ear canal normal. Nose: Congestion present. Right Sinus: Maxillary sinus tenderness and frontal sinus tenderness present. Left Sinus: Maxillary sinus tenderness and frontal sinus tenderness present. Mouth/Throat: Lips: [place]. Mouth: Mucous membranes are moist. Tongue: Tongue does not deviate from midline. Pharynx: Uvula midline. No pharyngeal swelling, oropharyngeal exudate, posterior oropharyngeal erythema or uvula swelling. Tonsils: No tonsillar exudate or tonsillar abscesses. Eyes: General: Lids are normal. Pupils: Pupils are equal, round, and reactive to light. Cardiovascular: Rate and Rhythm: Normal rate and regular rhythm. Pulses: Normal pulses. Heart sounds: Normal heart sounds. Pulmonary: Effort: Pulmonary effort is normal. No respiratory distress. Breath sounds: Normal breath sounds. No decreased breath sounds, wheezing, rhonchi or rales. Musculoskeletal: Cervical back: Full passive range of motion without pain, normal range of motion and neck supple. Lymphadenopathy: Cervical: No cervical adenopathy. Skin: General: Skin is warm and dry. Neurological: Mental Status: She is alert and oriented to person, place, and time. Gait: Gait normal. Psychiatric: Behavior: Behavior is cooperative. Vitals: 10/22/22 1423 10/22/22 1453 BP: 142/85 BP Location: Left arm Patient Position: Sitting Pulse: 113 90 Resp: 18 Temp: 37.1 ??C (98.8 ??F) SpO2: 100% Weight: 133.4 kg (294 lb) Height: 171.5 cm (5' 7.5 ) White coat syndrome per pt. No results found. Past Medical History: Diagnosis Date Anxiety and depression GERD (gastroesophageal reflux disease) HX OTHER MEDICAL anxiety, depression, palpitations, htn, obesity, d; Comments: MAF 10/02/2016 - Menstrual problem Morbid obesity (CMS/HCC) (HCC) PCOS (polycystic ovarian syndrome) 10/06/2021 Current Outpatient Medications: BIOTIN ORAL, Take by [...] capsule by mouth daily, Disp: , Rfl: doxycycline (VIBRAMYCIN) 100 mg capsule, Take 1 tablet/capsule (100 mg total) by mouth 2 (two) times a day for 7 days, Disp: 14 tablet/capsule, Rfl: 0 Allergies Allergen Reactions Topiramate Dystonia Aripiprazole Muscle pain Lamictal [Lamotrigine] Rash Paroxetine Augmentin [Amoxicillin-Pot Clavulanate] Other (See comments) Caused C-diff Pseudoephedrine Itching Serotonin Mental status changes Social History Tobacco Use Smoking status: Former Packs/day: 1.25 Years: 11.00 Pack years: 13.75 Types: Cigarettes Start date: 11/01/2001 Quit date: 11/01/2014 Years since quittin.9 Smokeless tobacco: Never Substance and Sexual Activity Drug use: Not Currently Types: Marijuana Comment: now just uses CBD Sexual activity: Not Currently Partners: Female control/protection: OCP Alcohol Use: Not on file Past Surgical History: Procedure Laterality Date WISDOM TOOTH EXTRACTION Oral Surgery Tooth Extraction [place] Tooth - (Added by TW Conv) Assessment/Plan Diagnoses and all orders for this visit: Acute recurrent maxillary sinusitis (Primary) - Influenza A/B, RSV, and COVID-19 PCR Nasopharyngeal; Future - doxycycline (VIBRAMYCIN) 100 mg capsule; Take 1 tablet/capsule (100 mg total) by mouth 2 (two) times a day for 7 days Patient Education: Sinus Infection -Take and finish your antibiotic prescription as directed. -You may try: Nasal saline wash, either Neti Pot or Sinus Rinse DAILY or a saline nasal spray 3-4 times a day. Guaifenesin expectorants (Maximum Strength Mucinex, Robitussin, store brand) to loosen secretions. For cough you can use dextromethorphan (Delsym syrup, Robitussin cough capsules or store brand). Dextromethorphan is considered safe for and breast feeding women. You may try decongestants such as Sudafed (purchase at pharmacy) or Sudafed PE for congestion relief. Decongestants can keep you awake at night. Do not use decongestants if you have high blood pressure or if you are . If you have high blood pressure you can take otc Coricidin per package directions -Increase fluid intake: drink 2 liters (2 quarts) of non-caffeinated, non- alcoholic beverages daily, drinking alcohol causes nasal and sinus membranes to swell -Steam inhalation and warm compress to face often help relieve pressure -Avoid allergens and excessively dry heat -Sleep with head of bed elevated to encourage drainage. -Use of a humidifier if environment is heated by dry forced - air system -Avoid smoking, second-hand smoke and air pollutants. -If you are not improving or worsening, or develop facial swelling, in the next 3-5 days you must RETURN to the clinic, go to your PCP, or Urgent Care/ER to be SEEN and reevaluated. No further prescriptions or refills will be given by phone without another evaluation. Doxycycline should be taken with at least 240 mL (8 oz) of water to minimize the risk of the tabletgetting stuck in the esophagus and causing local erosions. Patients should stand or sit upright for at least 30 minutes and should eat a meal after taking medication. You can get a sunburn more easily while taking doxycycline. Wear sunscreen when out side, hat etc, to protect against sunburn Disposition Treatment plan including expectations, follow up, and return precautions discussed with patient/parent, verbalizes understanding. Medication dosage, use, and potential adverse reactions discussed with patient/parent. Advised to follow up with PCP if symptoms do not resolve as expected or sooner if condition worsens. Signs/symptoms warranting ER evaluation reviewed. Patient and/or guardian was given an opportunity to ask questions, questions answered. Saman Dinero NP DATA ARCHITECT documented in this encounter Plan of Treatment Not on file documented as of this encounter Results * Influenza A/B, RSV, and COVID-19 PCR Nasopharyngeal (10/22/2022 2:31 PM ETL DATA ARCHITECT) Pathologist [facility] COVID-19 RNA Negative Negative [facility] Influenza A RNA Negative Negative [facility] Influenza B RNA Negative Negative [facility] RSV RNA Negative Negative [facility] Comment: Interpretive data: This test is performed using the [employer] Xpert Xpress CoV-2/Flu/RSV plus assay. This is [...] revised 2021. Nasopharyngeal 10/22/2022 2: 31 PM ETL DATA ARCHITECT 10/22/2022 4:25 PM ETL DATA ARCHITECT Narrative [facility] - 10/22/2022 5:31 PM ETL DATA ARCHITECT Is the Patient experiencing symptoms consistent with COVID?->Yes Date of Symptom Onset->10/01/22 Reason for testing?->Symptomatic Known exposure to confirmed or suspected COVID-19 case?->No Is the patient experiencing any symptoms consistent with COVID (eg. Fever, cough, shortness of breath)?->Yes What is the reason for testing?->Symptoms of COVID-19 in low-risk group (Batched) Saman Dinero NP LAB MICROBIOLOGY - GENERAL [facility] Final Result [facility] [id number] [place] [place] [address] documented in this encounter Visit Diagnoses Diagnosis Acute recurrent maxillary sinusitis- Primary Acute recurrent maxillary sinusitis documented in this encounter Additional Health Concerns Infection Onset Date Last Indicated Resolved Time COVID: Suspected 10/22/2022 10/22/2022 10/22/2022 5:32 PM ETL DATA ARCHITECT documented as of this encounter Care Teams Special Needs Bus Driver Relationship Specialty Start Date End Date Trenton Lomeli MD PCP - General Family Medicine 10/06/21 Neelima Velazquez MD [address] [address] Consulting Physician Gynecology 10/06/21 documented as of this encounter
--- OUTSIDE RECORDS SUMMARY | 2024-11-04 23:55 | XMS_ITS | Encounter Summary ---
Author Organization [facility] Address [address] [address] Care Team Providers Care Manager Of Hospital Name Role Phone Trenton Lomeli MD Primary Care Provider [phone] Neelima Velazquez MD Unavailable [phone] Reason for Visit * Reason Onset Date Comments Medical Question/Miscellaneous 08/11/2022 Encounter Details Date Type Department Care Team (Late st Contact Info) Description 08/11/2022 Telephone [facility] Primary Care at [address] [address] Trenton Lomeli MD [address] [place] [address] [address] [place] [address] Medical Question/Miscellaneous Social History Tobacco Use Types Packs/Day Years [...] on file Legal Sex Female 4:15 AM EDGE BLACKER Gender Identity Not on file Sexual Orientation Not on file 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 on file Not on file Not on file documented as of this encounter Ordered Prescriptions Prescription Sig Dispense Quantity Refills Last Filled Start Date End Date molnupiravir 200 mg capsule (EUA)Indications:C OVID-19 (emergency use authorization) Take 4 capsules (800 mg total) by mouth every 12 (twelve) hours for 5 days 40 capsule 08/11/2022 documented in this encounter Miscellaneous Notes * Telephone Encounter - Bettie Vincent MA - 08/11/2022 4:09 PM CDT Spoke to pt , informed pt of Dr Lomeli's message, pt voiced understanding * Telephone Encounter - Trenton Lomeli MD - 08/11/2022 3:10 PM CDT Sending antiviral. Relay to patient it is still under emergency use authorization, so no retirement data. Low amount of interactions of risks, but GI upset is a main one (apart from risk of allergy. She should avoid for 3 months after medication. In that case, she can forgo the amoxicillin. * Telephone Encounter - Celeste Augustin - 08/11/2022 11:37 AM CDT Medical Question/Miscellaneous Caller???s Concern: Covid positive today and wondering what if anything she should do Symptoms sore throat congestion Caller???s Call back #: [phone] Does message need to be routed?Yes-Action Needed documented in this encounter Plan of Treatment Not on file documented as of this encounter Visit Diagnoses Diagnosis COVID-19- Primary documented in this encounter Care Teams Manager Of Hospital Relationship Specialty Start Date End Date Trenton Lomeli MD PCP - General Family Medicine 10/06/21 Neelima Velazquez MD [address] [address] Consulting Physician Gynecology 10/06/21 documented as of this encounter
--- OUTSIDE RECORDS SUMMARY | 2024-11-04 23:55 | XMS_ITS | Encounter Summary ---
Author Organization [facility] Address [address] [address] Care Team Providers Care Mail Carriers Supervisor Name Role Phone Trenton Lomeli MD Primary Care Provider [phone] Neelima Velazquez MD Unavailable [phone] Reason for Visit * Reason Comments URI Home tests negative, tickle. 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 Not on file Not on file Not on file documented as of this encounter Last Filed Vital Signs Vital Sign Reading Time Taken Comments Blood Pressure 142/82 03/31/2022 4:08 PM CDT Pulse 110 03/31/2022 3:26 PM CDT Temperature 37.9 ??C (100.2 ??F) 03/31/2022 3:26 PM C DT Respiratory Rate 20 03/31/2022 3:26 PM CDT Oxygen Saturation 99% 03/31/2022 3:26 PM CDT Inhaled Oxygen Concentration - - Weight 128.4 kg (283 lb) 03/31/2022 3:26 PM CDT Height 170.2 cm (5' 7 ) 03/31/2022 3:26 PM CDT Body Mass Index 44.32 03/31/2022 3:26 PM CDT documented in this encounter Patient Instructions * Patient Instructions* Gayla Sykes, DOMESTIC VIOLENCE ADVOCATE - 03/31/2022 4:02 PM CDT The rapid strep test performed at the [facility] today was POSITIVE. The following is recommended treatment for Strep pharyngitis (strep throat) Complete antibiotic as prescribed- THIS IS VERY IMPORTANT. Strep pharyngitis is contagious. You are more CONTAGIOUS to others until you have been on antibiotics for 24 hours. Avoid sharing food/drinks/utensils and close contact until you are less contagious Take Tylenol (acetaminophen) or Advil/Motin (ibuprofen) as needed per package directions for fevers/pain. Gargle with warm salt water (1tsp salt/1 cup water) or warm tea with honey and lemon to soothe pain Frequent warm or cool liquids can be soothing, like ice chips, popsicles, chicken broth, and tea. You may return to work, daycare, or school 24 hours after starting antibiotics and you are fever free without use of Tylenol or Motrin. Replace your toothbrush within 48-72 hours after starting antibiotics. If you still are not having relief with the above, you can try a Magic Mouthwash -Equal parts liquid antacid (e.g.Maalox) and children's Benadryl with a couple drops of Anbesol gargle and spit every 3-4 hours as needed. If you are not improving or worsening in the next 3-5 days you must RETURN to the clinic, go to your PCP, or Urgent Care/ER to be SEEN and reevaluated. * Attachments The following attachments cannot be sent through Care Everywhere. * Strep Throat (Dining Room Maid) (Botswanan) documented in this encounter Ordered Prescriptions Prescription Sig Dispense Quantity Refills Last Filled Start Date End Date amoxicillin (amoxicillin) 500 mg tablet/capsuleIndic ations:Strep throat Take 1 tablet/caps ule (500 mg total) by mouth 2 (two) times a day for 10 days 20 tablet/capsule 03/31/2022 04/10/2022 documented in this encounter Progress Notes * Gayla Sykes NP - 03/31/2022 3:15 PM CDT Images from the original note were not included. Patient ID: Alia Fabian is a 31 y.o. female followed by Trenton Lomeli MD Chief Complaint Patient presents with ??? URI Home tests negative, tickle. Patient presents to the clinic with reports of cough and tickle in throat for 3 days. Denies chest pain, difficulty breathing, vomiting, and rash. Patient reports that she sprayed perfume on her and it accidentally got into her mouth. She has taken tylenol for her symptoms. Review of Systems Constitutional: Negative for chills, fatigue and fever. HENT: Positive for congestion and sore throat ( Tickle in throat ). Negative for ear pain, postnasal drip and rhinorrhea. Respiratory: Positive for cough. Negative for chest tightness, shortness of breath and wheezing. Cardiovascular: Negative for chest pain. Gastrointestinal: Negative for diarrhea, nausea and vomiting. Musculoskeletal: Negative for myalgias. Neurological: Negative for headaches. Vitals: 03/31/22 1526 03/31/22 1608 BP: 170/88 142/82 BP Location: Left arm Patient Position: Sitting Pulse: 110 Resp: 20 Temp: 37.9 ??C (100.2 ??F) TempSrc: Oral SpO2: 99% Weight: 128.4 kg (283 lb) Height: 170.2 cm (5' 7 ) Recent Results (from the past 24 hour(s)) POC Influenza A/B, COVID-19 antigen Collection Time: 03/31/22 4:02 PM Result Value Ref Range Inflenza A Ag, POC Negative Influenza B Ag, POC Negative COVID-19 Ag POC Presumptive Negative Presumptive Negative, Invalid POCT rapid strep A Collection Time: 03/31/22 4:03 PM Result Value Ref Range Rapid Strep A, POC Positive Physical Exam Vitals reviewed. Constitutional: Appearance: She is well-developed. HENT: Right Ear: Tympanic membrane, ear canal and external ear normal. Tympanic membrane is not injected,erythematous or bulging. Left Ear: Tympanic membrane, ear canal and external ear normal. Tympanic membrane is not injected, erythematous or bulging. Nose: Congestion present. Right Sinus: No maxillary sinus tenderness or frontal sinus tenderness. Left Sinus: No maxillary sinus tenderness or frontal sinus tenderness. Mouth/Throat: Lips: [place]. Mouth: Mucous membranes are moist. Pharynx: Uvula midline. Posterior oropharyngeal erythema present. No pharyngeal swelling or oropharyngeal exudate. Eyes: Conjunctiva/sclera: Conjunctivae normal. Cardiovascular: Rate and Rhythm: Normal rate and regular rhythm. Pulmonary: Effort: Pulmonary effort is normal. No respiratory distress. Breath sounds: Normal breath sounds. No decreased breath sounds, wheezing or rhonchi. Musculoskeletal: General: Normal range of motion. Lymphadenopathy: Cervical: No cervical adenopathy. Skin: General: Skin is warm and dry. Neurological: Mental Status: She is alert and oriented to person, place, and time. Diagnoses and all orders for this visit: Strep throat (Primary) - POC Influenza A/B, COVID-19 antigen - amoxicillin (amoxicillin) 500 mg tablet/capsule; Take 1 tablet/capsule (500 mg total) by mouth 2 (two) times a day for 10 days - POCT rapid strep A Orders Placed This Encounter Procedures ??? POC Influenza A/B, COVID-19 antigen Order Specific Question: Is the Patient experiencing symptoms consistent with COVID? Answer: Yes Order Specific Question: Date of Symptom Onset Answer: 03/29/2022 ??? POCT rapid strep A Assessment/Plan The rapid strep test performed at the [facility] today was POSITIVE. The following is recommended treatment for Strep pharyngitis (strep throat) ??? Complete antibiotic as prescribed- THIS IS VERY IMPORTANT. ??? Strep pharyngitis is contagious. You are more CONTAGIOUS to others until you have been on antibiotics for 24 hours. ??? Avoid sharing food/drinks/utensils and close contact until you are less contagious ??? Take Tylenol (acetaminophen) or Advil/Motin (ibuprofen) as needed per package directions for fevers/pain. ??? Gargle with warm salt water (1tsp salt/1 cup water) or warm tea with honey and lemon to soothe pain ??? Frequent warm or cool liquids can be soothing, like ice chips, popsicles, chicken broth, and tea. ??? You may return to work, daycare, or school 24 hours after starting antibiotics and you are fever free without use of Tylenol or Motrin. ??? Replace your toothbrush within 48-72 hours after starting antibiotics. If you still are not having relief with the above, you can try a Magic Mouthwash -Equal parts liquid antacid (e.g.Maalox) and children's Benadryl with a couple drops of Anbesol gargle and spit every 3-4 hours as needed. If you are not improving or worsening in the next 3-5 days you must RETURN to the clinic, go to your PCP, or Urgent Care/ER to be SEEN and reevaluated. Lungs CTA, O2 Saturation @99%/RA, low suspicion for pneumonia at this time. Will recommend supportive care for symptoms with f/u precautions including signs/symptoms warranting ER evaluation. ??? Discussed home self-care, follow up needs, and signs and symptoms that warrant immediate medical attention/ER evaluation including worsening fever, increased shortness of breath, severe N/V/D, orany other worrisome symptoms ??? Reviewed isolation/quarantine protocols ??? Discussed symptomatic relief of symptoms ??? Advised to rest and increase oral fluid intake ??? Advised to stay out of work and work release given explaining when patient can return to work Patient Education Strep Throat OUTREACH COORDINATOR: Strep throat is a throat infection caused by bacteria. It is easily spread from person to person. ?? Common symptoms include the following: ?? Sore, red, and swollen throat ? Fever and headache ? Upset stomach, abdominal pain, or vomiting ? White or yellow patches or blisters in the back of your throat ? Tender, swollen lumps on the sides of your neck or jaw ? Throat pain when you swallow Call 911 for any of the following: ?? You have trouble breathing. ?? Seek care immediately if: ?? You have new symptoms like a bad headache, stiff neck, chest pain, or vomiting. ? You are drooling because you cannot swallow your spit. Contact your healthcare provider if: ?? You have a fever. ? You have a rash or ear pain. ? You have green, yellow-brown, or bloody mucus when you cough or blow your nose. ? You are unable to drink anything. ? You have questions or concerns about your condition or care. Treatment for strep throat may include antibiotic medicine to treat your strep throat. You should feel better within 2 to 3 days after you start antibiotics. You may return to work or school 24 hoursafter you start antibiotics. Manage strep throat: ?? Use lozenges, ice, soft foods, or popsicles to soothe your throat. ? Drink juice, milk shakes, or soup if your throat is too sore to eat solid food. Drinking liquidscan also help prevent dehydration. ? Gargle with salt water. Mix ?? teaspoon salt in a glass of warm water and gargle. This may help reduce swelling in your throat. ? Do not smoke. Nicotine and other chemicals in cigarettes and cigars can cause lung damage and make your symptoms worse. Ask your healthcare provider for information if you currently smoke and needhelp to quit. E-cigarettes or smokeless tobacco still contain nicotine. Talk to your healthcare provider before you use these products. Prevent the spread of strep throat: ?? Wash your hands often. Use soap and water. Wash your hands after you use the bathroom, change a child's diapers, or sneeze. Wash your hands before you prepare or eat food. ? Do not share food or drinks. Replace your toothbrush after you have taken antibiotics for 24 hours. Follow up with your healthcare provider as directed: Write down your questions so you remember to ask them during your visits. ?? 2017 [employer] Information is for End User's use only and may not be sold, redistributed or otherwise used for commercial purposes. All illustrations and images included in CareNotes?? are the copyrighted property of [employer]. or [employer]. The above information is an hearing aid repair technician only. It is not intended as medical advice for individual conditions or treatments. Talk to your doctor, nurse or pharmacist before following any medical regimen to see if it is safe and effective for you. ?? Gayla Sykes NP documented in this encounter Plan of Treatment Not on file documented as of this encounter Procedures Procedure Name Priority Date/Time Associated Diagnosis Comments POCT RAPID STREP Routine 03/31/2022 4:0 3 PM CDT Strep throat POC INFLUENZA A/B, COVID-19 ANTIGEN Routine 03/31/2022 4:02 PM CDT Strep throat documented in this encounter Results * (ABNORMAL) POCT rapid strep A (03/31/2022 4:03 PM CDT) [facility] Rapid Strep A, POC Positive Swab 03/31/2022 4:03 PM CDT Gayla Sykes NP POINT OF CARE TEST ORDERABLES Final Result * POC Influenza A/B, COVID-19 antigen (03/31/2022 4:02 PM CDT) Pathologist [facility] Influenza A Ag, POC Negative [facility] Influenza B Ag, POC Negative [facility] COVID-19 Ag POC Presumptive Negative Presumptive Negative, Invalid [facility] Nasal 03/31/2022 4:02 PM CDT us Saman Dinero NP POINT OF CARE TEST ORDERABLES F inal Result [facility] [address] [place] [address], [facility] documented in this encounter Visit Diagnoses Diagnosis Strep throat- Primary Streptococcal sore throat documented in this encounter Additional Health Concerns Infection Onset Date Last Indicated Resolved Time COVID: Suspected 03/31/2022 03/31/2022 03/31/2022 4:04 PM CDT documented as of this encounter Care Teams Mail Carriers Supervisor Relationship Specialty Start Date End Date Trenton Lomeli MD PCP - General Family Medicine 10/06/21 Neelima Velazquez MD [address] [place] [address] Consulting Physician Gynecology 10/06/21 documented as of this encounter
--- OUTSIDE RECORDS SUMMARY | 2024-11-04 23:55 | XMS_ITS | Encounter Summary ---
Author Organization [facility] Healthcare Address [address] [place] [address] Care Team Providers Care Sales And Marketing Assistant Name Role Phone Sergo Mackey MD Primary Care Provider [phone] Encounter Details Date Type Department Care Team (Late st Contact Info) Description 08/05/2017 8:19 PM CDT - 08/06/2017 11:31 AM CDT Emergency [facility] Emergency Department [address] [place] [address] Unknown, Notinfile Discharge Disposition: Discharge to home or self care Social History Tobacco Use Types Packs/Day Years Used Date Smoking Tobacco: Never Alcohol Use Standard Drinks/Week Comments No 0 (1 standard drink = 0.6 oz pur e alcohol) Comments Unknown Sex and Gender Information Value Date Recorded Sex Assigned at Not on file Legal 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 Gender Identity Not on file Sexual Orientation [...] Procedure Name Priority Date/Time Associated Diagnosis Comments TROPONIN I STAT 08/06/2017 6:00 AM CDT XR CHEST PA LATERAL 2 VIEWS Routine 08/06/2017 5:53 AM CDT TROPONIN I STAT 08/06/2017 12:44 AM CDT CRYPTOSPORIDIUM AND GIARDIA ANTIGEN ASSAY RTNm 08/06/2017 12:44 AM CDT STOOL CULTURE RTNm 08/06/2017 12:44 AM CDT VRE CULTURE, SURVEILLANCE Routine Gen Lab 08/06/2017 12:37 AM CDT CLOSTRIDIUM DIFFICILE ASSAY Routine Gen Lab 08/06/2017 12:37 AM CDT DISCHARGE LABORATORY CUMULATIVE REPORT 08/06/2017 12:00 AM CDT DIFFERENTIAL AUTO STAT 08/05/2017 10: 08 PM CDT CBC WITH AUTO DIFFERENTIAL STAT 08/05/2017 10:08 PM CDT BASIC METABOLIC PANEL STAT 08/05/2017 9:37 PM CDT documented in this encounter Results * Troponin I (08/06/2017 6:00 AM CDT) Troponin I <0.03 0.00 - 0.03 ng/mL [facility] Comment: Interpretive Data Serial determinations are recommended for the diagnosis of myocardial infarction (Third [place] Definition of Myocardial Infarction. ??J Am Sully Cardiol 2012;60:1581-98). Current interpretive data was last revised on 13. Blood specimen (specimen) 08/06/2017 6:00 AM CDT 08/06/2017 6:18 AM CDT Love Ramirez LOCATE TECHNICIAN LAB BLOOD ORDERABLES Final Result [facility] Department [place] [address] * XR Chest Pa Lateral 2 Views (08/06/2017 5:53 AM CDT) Anatomical Region Laterality Modality Body, Chest N/A Radiographic Fiona ging 08/06/2017 5:53 AM CDT Narrative 08/06/2017 5:53 AM CDT Tory GANNON M.D. FINAL REPORT The radiology attending physician has personally reviewed this study, and has reviewed and/or edited this written report and agrees with it. ACC# ??Date Time ??Exam [id number] Aug 06, 2017 00:53:00 [id number] Chest 2 views Frontl ??and ??Lat EXAMINATION: ??2 view chest radiograph HISTORY: Lightheadedness and diarrhea for 3 days. IMPRESSION: ??Frontal and lateral views of the chest are submitted for interpretation without prior radiograph for comparison. Lungs are clear. ??No focal pneumonic consolidation or pulmonary edema. ??No pleural effusion or pneumothorax. Cardiomediastinal silhouette is normal. Electronically signed by: Eloisa Lopez M.D. Requested By: LOVE RAMIREZ Dictated By: ?? CARMELITA SHEPARD M.D. ??on Aug ??2016 ??8:15A This document has been electronically signed by: ELOISA LOPEZ M.D. on Aug ??2016 ??8:15A [id number] GANNON M.D. FINAL REPORT The radiology attending physician has personally reviewed this study, and has reviewed and/or edited this written report and agrees with it. Attending: ??UNKNOWN, ??NOTINFILE Requesting: ??JAMES, ??LOVE Requesting Fax: ?? Attending Fax: ?? Attending ID: ??[id number] Requesting ID: ??[id number] Report To 1 ID: ??[id number] ? Report To 1 Name: ??, ?? Report To 1 FAX: ?? NextGen Order #: ?? Procedure Note Miscellaneous, Not In File / Provider, MD Misael - 08/06/2017 ELOISA LOPEZ M.D. CARMELITA SHEPARD M.D. FINAL REPORT The radiology attending physician has personally reviewed this study, and has reviewed and/or edited this written report and agrees with it. ACC# Date Time Exam [id number] Aug 06, 2017 00:53:00 [id number] Chest 2 views Frontl and Lat EXAMINATION: 2 view chest radiograph HISTORY: Lightheadedness and diarrhea for 3 days. IMPRESSION: Frontal and lateral views of the chest are submitted for interpretation without prior radiograph for comparison. Lungs are clear. No focal pneumonic consolidation or pulmonary edema. No pleural effusion or pneumothorax. Cardiomediastinal silhouette is normal. Electronically signed by: Eloisa Lopez M.D. Requested By: LOVE RAMIREZ ANP Dictated By: CARMELITA SHEPARD M.D. on Aug 06 2017 8:15A This document has been electronically signed by: ELOISA LOPEZ M.D. on Aug 06 2017 8:15A [id number] GANNON M.D. FINAL REPORT The radiology attending physician has personally reviewed this study, and has reviewed and/or edited this written report and agrees with it. Attending: UNKNOWN, NOTINFILE Requesting: LOVE RAMIREZ Requesting Fax: Attending Fax: Attending ID: [id number] Requesting ID: [id number] Report To 1 ID: [id number] Report To 1 Name: , Report To 1 FAX: NextGen Order #: [id number] Love Ramirez LOCATE TECHNICIAN IMG XR PROCEDURES Final Res ult * Stool culture (08/06/2017 12:44 AM CDT) Direct Specimen Exam Shiga Toxin Testing: Antigen detection assay for Shiga-toxin NEGATIVE for Shiga Toxin 1 and Shiga Toxin 2. [facility] Report Final Report: No growth of enteric bacterial pathogens [facility] Stool (Rectum) 08/06/2017 12 :44 AM CDT 08/06/2017 1:50 AM CDT Narrative [facility] - 08/07/2017 9:47 AM CDT Routine stool cultures include procedures to detect Salmonella, Shigella, Edwardsiella, Aeromonas, Pleisiomonas, Campylobacter, Yersinia, E. coli O157, and Shiga-like toxins. ?? Vibrio is cultured only upon special request. ??If Vibrio is suspected, please call the laboratory at [phone]. Interpretive data was last updated March 08, 2017. Love Ramirez NP LAB MICROBIOLOGY - GENERAL ORDERABLES Final Result Performing Organization Address City/[facility] Co de Phone Number [facility] [employer] [place] [address] * Ova and parasite screen (08/06/2017 12:44 AM CDT) Report Final Report: Negative [facility] Stool (Rectum) 08/06/2017 12 :44 AM CDT 08/06/2017 1:50 AM CDT Narrative [facility] - 08/06/2017 1:50 AM CDT This test is an Immunoassay which screens for Cryptosporidium and Giardia only. ??Please request Microscopic OP Exam if comprehensive examination for ova and parasites is required. ?? Current interpretive data was last revised on 04. Love Ramirez NP LAB MICROBIOLOGY - GENERAL ORDERABLES Final Result Performing Organization Address City/[facility]/ZIP Co de Phone Number [facility] [employer] [place] [address] * Troponin I (08/06/2017 12:44 AM CDT) Troponin I <0.03 0.00 - 0.03 ng/mL [facility] Comment: Interpretive Data Serial determinations are recommended for the diagnosis of myocardial infarction ([place] Definition of Myocardial Infarction. ??J Am Sully Cardiol 2012;60:1581-98). Current interpretive data was last revised on 13. Blood specimen (specimen) 08/06/2017 12:44 AM CDT 08/06/2017 12:50 AM CDT us Love Ramirez LOCATE TECHNICIAN LAB BLOOD ORDERABLES Final Result Performing Organization Address City/[facility] Co de Phone Number [facility] [employer] [place] [address] * VRE culture, surveillance (08/06/2017 12:37 AM CDT) Report Final Report: Negative [facility] Stool 08/06/2017 12:3 7 AM CDT 08/07/2017 12:11 AM CDT Narrative [facility] - 08/08/2017 9:02 AM CDT us Notinfile Unknown LAB MICROBIOLOGY - GENERAL ORD ERABLES Final Result Performing Organization Address [facility] Co de Phone Number [facility] [employer] [place] [address] * Clostridium difficile assay (08/06/2017 12:37 AM CDT) Report Final Report: Negative for: Clostridium difficile toxin. [facility] Stool 08/06/2017 12:3 7 AM CDT 08/06/2017 1:51 AM CDT Narrative [facility] - 08/06/2017 1:52 AM CDT us Notinfile Unknown LAB MICROBIOLOGY - GENERAL ORD ERABLES Final Result Performing Organization Address City/[facility] Co de Phone Number [facility] [place] [address] * DISCHARGE LABORATORY CUMULATIVE REPORT (08/06/2017 12:00 AM CDT) Narrative 08/06/2017 12:00 AM CDT Ordered by an unspecified provider. Historical Provider MD LAB BLOOD ORDERABLES Diann l Result * Differential, auto (08/05/2017 10:08 PM CDT) Neutrophil pct 67.7 % [facility] Imm gran pct 0.3 % [facility] Lymphocyte pct 23.4 % [facility] Monocyte pct 6.1 % [facility] Eosinophil pct 2.0 % [facility] Basophil pct 0.5 % [facility] Neutrophil abs 5.86 1.70 - 6.50 K/cumm [facility] Imm gran abs 0.03 0.00 - 0.10 K/cumm [facility] Lymphocyte abs 2.03 0.80 - 3.30 K/cumm [facility] Monocyte abs 0.53 0.20 - 0.80 K/cumm [facility] Eosinophil abs 0.17 0.00 - 0.50 K/cumm [facility] Basophil abs 0.04 0.00 - 0.10 K/cumm [facility] Blood specimen (specimen) 08/05/2017 10:08 PM CDT 08/05/2017 10:29 PM CDT Love Ramirez NP LAB BLOOD ORDERABLES Final Result [facility] Department [place] [address] * CBC with auto differential (08/05/2017 10:08 PM CDT) WBC 8.66 3.80 - 9.90 K/cumm [facility] RBC 4.56 3.90 - 5.20 M/cumm [facility] Hgb 12.9 11.9 - 15.5 g/dL [facility] Hct 39.5 35.6 - 45.5 % [facility] MCV 86.6 81.3 - 96.[address] [facility] MCH 28.3 27.1 - 33.[address] [facility] MCHC 32.7 32.3 - 35.7 g/dL [facility] RDW CV 12.5 11.1 - 14.9 % [facility] RDW SD 39.5 35.7 - 48.[address] [facility] Plt 311 150 - 400 K/cumm [facility] MPV 9.1 9.1 - 12.[address] [facility] NRBC 0.0 0.0 - 0.2 % [facility] NRBC abs 0.00 0.00 - 0.01 K/cumm [facility] Blood specimen (specimen) 08/05/2017 10:08 PM CDT 08/05/2017 10:29 PM CDT us Love Ramirez NP LAB BLOOD ORDERABLES Final Result Performing Organization Address [facility] de Phone Number [facility] Department [place] [address] * Basic metabolic panel (08/05/2017 9:37 PM CDT) [facility] Sodium 141 135 - 145 mmol/L [facility] Potassium, pl 3.9 3.3 - 4.9 mmol/L [facility] Chloride 104 97 - 110 mmol/L [facility] CO2 25 22 - 32 mmol/L [facility] BUN 8 8 - 25 mg/dL [facility] Glucose 99 70 - 199 mg/dL [facility] Creatinine 0.70 0.60 - 1.10 mg/dL [facility] Calcium 9.6 8.5 - 10.3 mg/dL [facility] Anion gap 12 2 - 15 mmol/L [facility] Blood specimen (specimen) 08/05/2017 9:37 PM CDT 08/05/2017 9:42 PM CDT us Jerson Hernandez MD LAB BLOOD ORDERABLES Diann l Result Performing Organization Address [facility] Co de Phone Number [facility] Department [place] [address] documented in this encounter Visit Diagnoses Not on filedocumented in this encounter Care Teams Sales And Marketing Assistant Relationship Specialty Start Date End Date Sergo Mackey MD [address] [place] [address] PCP - General 08/05/17 10/05/21 documented as of this encounter
--- OUTSIDE RECORDS SUMMARY | 2024-11-04 23:55 | XMS_ITS | Encounter Summary ---
Author Organization [facility] Healthcare Address [address] [place] [address] Care Team Providers Care Group Managing Director Name Role Phone Trenton Lomeli MD Primary Care Provider [phone] Neelima Velazquez MD Unavailable [phone] Encounter Details Date Type Department Care Team (Late st Contact Info) Description 10/06/2021 7:35 PM HARP REGULATOR Lab [address] [address] Essential hypertension; Nonalcoholic steatohepatitis (ACE) Social History Tobacco Use Types Packs/Day Years [...] on file Legal Sex Female 4:15 AM HARP REGULATOR Gender Identity Not on file Sexual Orientation Not on file 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 Not on file Not on file Not on file documented as of this encounter Plan of Treatment Not on file documented as of this encounter Procedures Procedure Name Priority Date/Time Associated Diagnosis Comments EGFR Routine 10/06/2021 2:39 PM HARP REGULATOR Nonalcoholic steatohepatitis (ACE) DIFFERENTIAL AUTO Routine 10/06/2021 2:3 9 PM HARP REGULATOR Nonalcoholic steatohepatitis (ACE) THYROID FUNCTION CASCADE Routine 10/06/2021 2:39 PM HARP REGULATOR Essential hypertension CBC WITH AUTO DIFFERENTIAL Routine 10/06/2021 2:39 PM HARP REGULATOR Nonalcoholic steatohepatitis (ACE) LIPID PANEL Routine 10/06/2021 2:39 PM HARP REGULATOR Nonalcoholic steatohepatitis (ACE) COMPREHENSIVE METABOLIC PANEL Routine 10/06/2021 2:39 PM HARP REGULATOR Nonalcoholic steatohepatitis (ACE) documented in this encounter Results * eGFR (10/06/2021 2:39 PM HARP REGULATOR) eGFR 123 mL/min/1.7 3 m2 [facility] Comment: Interpretive Data Reference Interval Normal ?>/= 90 mL/min/1.73m2 Mildly decreased* ? 60 - 89 mL/min/1.73m2 Mildly to moderately decreased ?45 - 59 mL/min/1.73m2 Moderately to severely decreased ??30 - 44 mL/min/1.73m2 Severely decreased ?15 - 29 mL/min/1.73m2 Kidney Failure ?< 15 ??mL/min/1.73m2 *Relative to young adult level Estimated glomerular filtration rate is determined by the CKD-EPI equation recommended by the National Kidney Foundation (KDIGO 2012 Clinical Practice Guideline for the Evaluation and Management of Chronic Kidney Disease. Kidney Intnl Suppl Nov 2012;3:1). The CKD-EPI equation should not be used for patients with unstable renal function and has not been validated in children and those over 70. Current interpretive data was last reviewed 2020 Blood 10/06/2021 2:39 PM HARP REGULATOR 10/06/2021 8:03 PM HARP REGULATOR us Trenton Lomeli MD LAB BLOOD ORDERABLES Final Result [facility] [address] [address] Department [place] [address] * Differential, auto (10/06/2021 2:39 PM HARP REGULATOR) Neutrophil abs 3.3 1.7 - 6.5 K/cumm [facility] Imm gran abs 0.0 0.0 - 0.1 K/cumm [facility] Lymphocyte abs 1.8 0.8 - 3.3 K/cumm [facility] Monocyte abs 0.4 0.2 - 0.8 K/cumm [facility] Eosinophil abs 0.1 0.0 - 0.5 K/cumm [facility] Basophil abs 0.0 0.0 - 0.1 K/cumm [facility] Neutrophil pct 57.7 % [facility] Comment: Interpretive Data Percent cell count reference ranges are not reported, since discordance with absolute values may lead to misinterpretation of CBC data. Current Interpretive Data was last revised on 2018. Imm gran pct 0.2 % [facility] Comment: Interpretive Data Percent cell count reference ranges are not reported, since discordance with absolute values may lead to misinterpretation of CBC data. Current Interpretive Data was last revised on 2018. Lymphocyte pct 32.1 % [facility] Comment: Interpretive Data Percent cell count reference ranges are not reported, since discordance with absolute values may lead to misinterpretation of CBC data. Current Interpretive Data was last revised on 2018. Monocyte pct 7.3 % [facility] Comment: Interpretive Data Percent cell count reference ranges are not reported, since discordance with absolute values may lead to misinterpretation of CBC data. Current Interpretive Data was last revised on 2018. Eosinophil pct 2.0 % [facility] Comment: Interpretive Data Percent cell count reference ranges are not reported, since discordance with absolute values may lead to misinterpretation of CBC data. Current Interpretive Data was last revised on 2018. Basophil pct 0.7 % [facility] Comment: Interpretive Data Percent cell count reference ranges are not reported, since discordance with absolute values may lead to misinterpretation of CBC data. Current Interpretive Data was last revised on 2018. Blood 10/06/2021 2:39 PM HARP REGULATOR 10/06/2021 7:52 PM HARP REGULATOR Trenton Lomeli MD LAB BLOOD ORDERABLES Final Result [facility] [address] [address] Department [place] [address] * (ABNORMAL) CBC with auto differential (10/06/2021 2:39 PM HARP REGULATOR) WBC 5.6 3.8 - 9.9 K/cumm [facility] Hgb 13.6 11.9 - 15.5 g/dL [facility] Hct 42.7 35.6 - 45.5 % [facility] Plt 338 150 - 400 K/cumm [facility] MPV 9.5 9.1 - 12.3 fL [facility] RBC 4.83 3.90 - 5.20 M/cumm [facility] MCV 88.4 81.3 - 96.4 fL [facility] MCH 28.2 27.1 - 33.3 pg [facility] MCHC 31.9(L) 32.3 - 35.7 g/dL [facility] RDW CV 12.9 11.1 - 14.9 % [facility] RDW SD 41.9 35.7 - 48.1 fL [facility] NRBC abs 0.00 0.00 - 0.01 K/cumm [facility] Blood 10/06/2021 2:39 PM HARP REGULATOR 10/06/2021 7:52 PM HARP REGULATOR Trenton Lomeli MD LAB BLOOD ORDERABLES Final Result [facility] [address] [address] Department [place] [address] * (ABNORMAL) Comprehensive metabolic panel (10/06/2021 2:39 PM HARP REGULATOR) Sodium 141 135 - 145 mmol/L [facility] [...] Units/L [facility] Blood 10/06/2021 2:39 PM HARP REGULATOR 10/06/2021 7:52 PM HARP REGULATOR Trenton Lomeli MD LAB BLOOD ORDERABLES Final Result [facility] [address] [address] Department [place] [address] * (ABNORMAL) Lipid panel (10/06/2021 2:39 PM HARP REGULATOR) [employer] Signature Cholesterol 147 30 - 199 mg/dL [facility] Comment: [...] revised on 2018. Non-HDL Cholesterol 121 mg/dL [facility] Comment: Interpretive Data Ages < [...] 6 [facility] Blood 10/06/2021 2:39 PM HARP REGULATOR 10/06/2021 7:52 PM HARP REGULATOR us Trenton Lomeli MD LAB BLOOD ORDERABLES Final Result Performing Organization Address City/[facility] Co de Phone Number [facility] [address] [address] [place] [address] * TSH reflex to free T4 (10/06/2021 2:39 PM HARP REGULATOR) TSH 0.84 0.30 - 4.20 mcIUnit/mL [facility] Blood 10/06/2021 2:39 PM HARP REGULATOR 10/06/2021 7:52 PM HARP REGULATOR us Trenton Lomeli MD LAB BLOOD ORDERABLES Final Result Performing Organization Address [facility] de Phone Number [facility] [address] [address] [place] [address] documented in this encounter Visit Diagnoses Diagnosis Essential hypertension Unspecified essential hypertension Nonalcoholic steatohepatitis (ACE) documented in this encounter Care Teams Group Managing Director Relationship Specialty Start Date End Date Trenton Lomeli MD PCP - General Family Medicine 10/06/21 Neelima Velazquez MD [address] [address] Consulting Physician Gynecology 10/06/21 documented as of this encounter
--- OUTSIDE RECORDS SUMMARY | 2024-11-04 23:55 | XMS_ITS | Encounter Summary ---
Author Organization [facility] Healthcare Address [address] [place] [address] Care Team Providers Care Press Technician Name Role Phone Referring, Unknown MD Primary Care Provider Unav ailable Encounter Details Date Type Department Care Team (Late st Contact Info) Description 06/04/2017 1:06 PM CDT - 06/05/2017 1:59 AM CDT Emergency [facility] Emergency Department [address] [place] [address] Unknown, Notinfile Discharge Disposition: Discharge to home or self care Social History Tobacco Use Types Packs/Day Years Used Date Smoking Tobacco: Never Alcohol Use Standard Drinks/Week Comments No 0 (1 standard drink = 0.6 oz pur e alcohol) Comments Unknown Sex and Gender Information Value Date Recorded Sex Assigned at Not on file Legal Sex Female 4:15 AM TRACTOR 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 Gender Identity Not on file Sexual Orientation [...] Procedure Name Priority Date/Time Associated Diagnosis Comments DISCHARGE LABORATORY CUMULATIVE REPORT 06/05/2017 12:00 AM CDT HCG, QUAL, URINE, POC STAT 06/04/2017 7:38 PM CDT DIFFERENTIAL AUTO STAT 06/04/2017 6:4 3 PM CDT URINALYSIS AND REFLEX TO MICROSCOPIC STAT 06/04/2017 6:43 PM CDT CBC WITH AUTO DIFFERENTIAL STAT 06/04/2017 6:43 PM CDT BASIC METABOLIC PANEL STAT 06/04/2017 6:43 PM CDT documented in this encounter Results * DISCHARGE LABORATORY CUMULATIVE REPORT (06/05/2017 12:00 AM CDT) Narrative 06/05/2017 12:00 AM CDT Ordered by an unspecified provider. Historical Provider LAB BLOOD ORDERABLES Diann l Result * hCG, Qual, Urine, POC (06/04/2017 7:38 PM CDT) HCG, ur, POC Negative [facility] Urine 06/04/2017 7:38 PM CDT 06/05/2017 7:14 AM CDT Rose Marie Rutledge MD LAB BLOOD ORDERABLES Final Re sult [facility] Department [place] [address] * Urinalysis reflex to microscopic (06/04/2017 6:43 PM CDT) Color, ur Yellow Yellow [facility] Clarity, ur Clear Clear [facility] Specific gravity, ur 1.030 1.003 - 1.030 [facility] pH, ur 5.0 5.0 - 8.0 [facility] Albumin, ur Negative Trace [facility] Glucose, ur ql Negative Negative [facility] Ketones, ur Negative Negative [facility] Bilirubin, ur Negative Negative [facility] Blood, ur Negative Negative [facility] Urobilinogen, ur <2.0 <2.0 mg/dL [facility] Nitrites, ur Negative Negative [facility] Leukocyte esterase, ur Negative Negative [facility] Urine 06/04/2017 6:43 PM CDT 06/04/2017 7:46 PM CDT Rose Marie Rutledge MD LAB URINE ORDERABLES Final Re sult Performing Organization Address [facility] de Phone Number [facility] Department [place] [address] * Basic metabolic panel (06/04/2017 6:43 PM CDT) Pathologist [facility] Sodium 140 135 - 145 mmol/L [facility] Potassium, pl 3.7 3.3 - 4.9 mmol/L [facility] Chloride 103 97 - 110 mmol/L [facility] CO2 24 22 - 32 mmol/L [facility] BUN 10 8 - 25 mg/dL [facility] Glucose 104 70 - 199 mg/dL [facility] Creatinine 0.68 0.60 - 1.10 mg/dL [facility] Calcium 9.3 8.5 - 10.3 mg/dL [facility] Anion gap 13 2 - 15 mmol/L [facility] Blood specimen (specimen) 06/04/2017 6:43 PM CDT 06/04/2017 7:03 PM CDT Rose Marie Rutledge MD LAB BLOOD ORDERABLES Edited R esult - Final Performing Organization Address [facility] de Phone Number [facility] Department [place] [address] * (ABNORMAL) Differential, auto (06/04/2017 6:43 PM CDT) [facility] Neutrophil pct 57.8 % [facility] Imm gran pct 0.3 % [facility] Lymphocyte pct 33.8 % [facility] Monocyte pct 5.9 % [facility] Eosinophil pct 1.4 % [facility] Basophil pct 0.8 % [facility] Neutrophil abs 5.93 1.70 - 6.50 K/cumm [facility] Imm gran abs 0.03 0.00 - 0.10 K/cumm [facility] Lymphocyte abs 3.47(H) 0.80 - 3.30 K/cumm [facility] Monocyte abs 0.61 0.20 - 0.80 K/cumm [facility] Eosinophil abs 0.14 0.00 - 0.50 K/cumm [facility] Basophil abs 0.08 0.00 - 0.10 K/cumm [facility] Blood specimen (specimen) 06/04/2017 6:43 PM CDT 06/04/2017 7:03 PM CDT us Rose Marie Rutledge MD LAB BLOOD ORDERABLES Final Re sult [facility] Department [place] [address] * (ABNORMAL) CBC with auto differential (06/04/2017 6:43 PM CDT) [facility] WBC 10.26(H) 3.80 - 9.90 K/cumm [facility] RBC 4.92 3.90 - 5.20 M/cumm [facility] Hgb 13.8 11.9 - 15.5 g/dL [facility] Hct 42.7 35.6 - 45.5 % [facility] MCV 86.8 81.3 - 96.4 fL [facility] MCH 28.0 27.1 - 33.3 pg [facility] MCHC 32.3 32.3 - 35.7 g/dL [facility] RDW CV 12.8 11.1 - 14.9 % [facility] RDW SD 40.6 35.7 - 48.1 fL [facility] Plt 341 150 - 400 K/cumm [facility] MPV 9.3 9.1 - 12.3 fL [facility] NRBC 0.0 0.0 - 0.2 % [facility] NRBC abs 0.00 0.00 - 0.01 K/cumm [facility] Blood specimen (specimen) 06/04/2017 6:43 PM CDT 06/04/2017 7:03 PM CDT Rose Marie Rutledge MD LAB BLOOD ORDERABLES Final Re sult [facility] Department [place] [address] documented in this encounter Visit Diagnoses Not on filedocumented in this encounter Care Teams Press Technician Relationship Specialty Start Date End Date Referring, Unknown, PCP - General 06/04/17 08/04/17 documented as of this encounter
--- OUTSIDE RECORDS SUMMARY | 2024-11-04 23:55 | XMS_ITS | Encounter Summary ---
Author Organization [facility] Healthcare Address [address] [place] [address] Care Team Providers Care Fast Foods Worker Name Role Phone Trenton Lomeli MD Primary Care Provider [phone] Neelima Velazquez MD Unavailable [phone] Encounter Details Date Type Department Care Team (Latest Contact Info) Description 11/09/2022 4:21 PM ACID CONDENSER - 11/09/2022 11:59 PM ACID CONDENSER Hospital Encounter [facility] [id number] [id number] Screening, lipid Discharge Disposition: Discharge to home or self [...] on file Legal Sex Female 4:15 AM ACID CONDENSER Gender Identity Not on file Sexual Orientation Not on file 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 LDL, calculated 151(H) <=129 mg/dL [facility] Comment: Interpretive Data Ages [...] on 2018. Non-HDL Cholesterol 197 mg/dL [facility] Comment: Interpretive Data Ages [...] revised on 2018. Chol/HDL ratio 6 [facility] Blood 11/09/2022 4:21 PM ACID CONDENSER 11/09/2022 7:19 PM ACID CONDENSER us Trenton Lomeli MD LAB BLOOD ORDERABLES Final Result Performing Organization Address City/State/[facility] Phone Number [place] [address] [facility] Department [place] [address] documented in this encounter Visit Diagnoses Diagnosis Screening, lipid documented in this encounter Care Teams Fast Foods Worker Relationship Specialty Start Date End Date Trenton Lomeli MD PCP - General Family Medicine 10/06/21 Neelima Velazquez MD [address] [address] Consulting Physician Gynecology 10/06/21 documented as of this encounter
--- OUTSIDE RECORDS SUMMARY | 2024-11-04 23:55 | XMS_ITS | Encounter Summary ---
Author Organization [facility] Address [address] [facility] [address] [place] [id number] Care Team Providers Care Doughnut Machine Operator Name Role Phone Trenton Lomeli MD Primary Care Provider [phone] Neelima Velazquez MD Unavailable [phone] Encounter Details Date Type Department Care Team (Late st Contact Info) Description 11/10/2022 Orders Only [facility] Primary Care at [address] [address] Trenton Lomeli MD [address] [place] [address] [address] [place] [address] Mixed hyperlipidemia (Primary Dx) Social History Tobacco Use Types [...] on file Legal Sex Female 4:15 AM 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 SANDER Gender Identity Not on file Sexual Orientation Not on file 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 Not on file Not on file Not on file documented as of this encounter Ordered Prescriptions Prescription Sig Dispense Quantity Refills Last Filled Start Date End Date rosuvastatin (Crestor) 20 mg tabletIndications:Mi xed hyperlipidemia Take 1 tablet (20 mg total) by mouth daily 30 tablet 2 11/10/2022 3 documented in this encounter Plan of Treatment Not on file documented as of this encounter Visit Diagnoses Diagnosis Mixed hyperlipidemia- Primary documented in this encounter Care Teams Doughnut Machine Operator Relationship Specialty Start Date End Date Trenton Lomeli MD PCP - General Family Medicine 10/06/21 Neelima Velazquez MD [address] [address] Consulting Physician Gynecology 10/06/21 documented as of this encounter
== END 2024-10-28 19:50 | disposition home or self-care (01) ==
PROVIDERS: Emergency Provider Emergency Medicine; PCP Family Medicine
DX: R11.2 Nausea with vomiting, unspecified (principal); R19.7 Diarrhea, unspecified; I10 Essential (primary) hypertension; E28.2 Polycystic ovarian syndrome; K58.9 Irritable bowel syndrome, unspecified; Z87.891 Personal history of nicotine dependence; Z79.3 Long term (current) use of hormonal contraceptives
CPT/HCPCS: 36415; 74177; 80053; 81001; 81025; 85025; 85610; 85730; 87086; 96361; 96365; 99284; J7030; Q9967

== ENCOUNTER 2024-11-01 11:40 | Emergency (ER) | payer BC, SELFPAY ==
[2024-11-01 11:43] VITALS: BP 133/84; PULSE 86; RESP 16; TEMP 36.6; O2SAT 99
--- NOTE | 2024-11-01 12:23 | ECG_ITS ---
Test Date: 2024-11-01 12:31:40 Measurements Intervals [place] Rate: 80 P: 8 [place]: 124 QRS: -3 QRSD: 87 T: 13 QT: 381 QTc: 439 Interpretive Statements SINUS RHYTHM LOW QRS VOLTAGE IN PRECORDIAL LEADS [QRS DEFLECTION < 1.0 mV IN CHEST LEADS] MODERATE VOLTAGE CRITERIA FOR LVH, CONSIDER NORMAL VARIANT [MEETS CRITERIA IN ONE OF: R(aVL), S(V1), R(V5), R(V5/V6)+S(V1)] Compared to ECG 10/26/2024 11:30:14 T-wave abnormality no longer present Electronically Signed On 11-06-2024 10:17:01 BRAND ATTENDANT by Herbie Galvin M.D.
[2024-11-01 13:00] VITALS: BP 142/72; PULSE 85; RESP 18; TEMP 36.6; O2SAT 100
--- NOTE | 2024-11-01 13:27 | ECG_ITS ---
Test Date: 2024-11-01 13:33:01 Measurements Intervals [place] Rate: 98 P: 31 MS: 140 QRS: -1 QRSD: 81 T: 21 QT: 349 QTc: 447 Interpretive Statements SINUS RHYTHM LOW QRS VOLTAGE IN PRECORDIAL LEADS [QRS DEFLECTION < 1.0 mV IN CHEST LEADS] MODERATE VOLTAGE CRITERIA FOR LVH, CONSIDER NORMAL VARIANT [MEETS CRITERIA IN ONE OF: R(aVL), S(V1), R(V5), R(V5/V6)+S(V1)] NONSPECIFIC T-WAVE ABNORMALITY Compared to ECG 11/01/2024 12:31:40 T-wave abnormality now present Electronically Signed On 11-06-2024 10:19:21 TRAUMA COORDINATOR by Herbie Galvin M.D.
--- NOTE | 2024-11-01 14:06 | ED.NAVMDI ---
HPI - Nausea/Vomiting/Diarrhea General Chief complaint: Nausea/Vomiting/Diarrhea <FRANDY Gusman Last Filed: 11/01/24 14:16> Stated complaint: N/V/D via EMS <FRANDY Gusman Last Filed: 11/01/24 14:16> Time Seen by Provider: 11/01/24 14:06 <FRANDY Gusman Last Filed: 11/01/24 14:16> Focused HPI: Patient is a 34 y/o female who presents to the ED with c/o diarrhea. Patient reports she has had persistent diarrhea since 10/16. Reporting multiple episodes per day. She has been seen in the ED here and had it negative CT scan. Reports symptoms have since continued. She took Imodium for her diarrhea, but states it is making her heart beat funny. She reports gas pains/abd cramping, decreased appetite, nausea, but denies vomiting. Denies fever, rectal bleeding, melena. GENERAL: Well-appearing, morbidly obese with BMI of 41.3, and in no acute distress. HEAD: Normocephalic, atraumatic. CHEST: Clear to auscultation. ?No respiratory distress. HEART: Regular rate and rhythm.? ABD: Diffuse nonfocal tenderness. Normoactive BS NEURO: ?Alert and oriented x3. Patient screened in triage and initial orders placed.? ?Additional care and disposition to be based upon?diagnostic testing and treatment. <FRANDY Gusman Last Filed: 11/01/24 14:16> Source: patient and old records reviewed <FRANDY Gusman Last Filed: 11/01/24 14:16> Mode of arrival: ambulatory <FRANDY Gusman Last Filed: 11/01/24 14:16> Limitations: no limitations <FRANDY Gusman Last Filed: 11/01/24 14:16> History of Present Illness HPI Narrative: Agree with the above the following additions/corrections: Patient states she was previously diagnosed with IBS but it has been under control. Lives alone and No sick contacts recently but 3 weeks ago she was some people who had a stomach bug. 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 She has an ob/campaign worker, Dr. Velazquez (sees GIOVANI Cony) and a primary care physician Shea. She has been nauseated but denies any vomiting. She initially complained of diarrhea 1 week's duration although elsewhere she had stated that and been more. She states she has had 2 diarrheal stools in the past 24 hours. She denies bloody stool. She states it was dark 10/26/2024 but she had blueberries earlier that might be the and it did resolve and did not recur. Her last menstrual period began 10/26/2024 she states it is not stopping where as normally it it only lasts 2-3 days. Not currently sexually active. No dysuria, hematuria, urgency or frequency. No recent travel or antibiotics. She denies abdominal pain. She states last oral intake was 2 days ago with the exception of popsicles and liquid IV. She states she has no appetite and that when she eats she gets chills her body flashes she begins shaking. She continues to state other complaints she has developed including trouble swallowing, feeling weak and dizzy and stating that she not been able to sleep because she is having muscle spasms. She also complains of weight loss reportedly more than 15 lb past 1 and a half weeks. She is asking if she could have QT pause because she read about this. Wonders about getting her thyroid checked. <Ondina Monique MD - Last Filed: 11/01/24 21:32> Related Data Home medications: Home Medications ?Medication ?Instructions ?Recorded ?Confirmed ?Last Taken ?Type drospirenone (contraceptive) 4 mg 1 tablet PO DAILY 09/24/21 10/02/21 Unknown History (28) tablet (Slynd) <Alejandrina Velásquez PA-C - Last Filed: 11/01/24 14:16> Allergies/Adverse reactions: Allergies Allergy/AdvReac Type Severity Reaction Status Date / Time aripiprazole Allergy Mild Unknown Verified 11/01/24 11:41 paroxetine Allergy Unknown Unknown Verified 11/01/24 11:41 pseudoephedrine Allergy Unknown Unknown Verified 11/01/24 11:41 Benzodiazepines AdvReac Other Verified 11/01/24 11:41 lorazepam (From Ativan) AdvReac Other Verified 11/01/24 11:41 DEPRESSION MEDS SSRI AdvReac Unknown Unknown Uncoded 11/01/24 11:41 sleeping medications AdvReac Unknown Unknown Uncoded 11/01/24 11:41 <Alejandrina Velásquez PA-C - Last Filed: 11/01/24 14:16> PMFSH Past Medical History Medical History: Medical History Previous known suicide attempt Panic attacks Bipolar 1 disorder Depression ADHD PCOS (polycystic ovarian syndrome) IBS (irritable bowel syndrome) Hypertension Seizure Headache, migraine Ataxia Diaphoresis Hypersomnia Obesity, Class III, BMI 40-49.9 (morbid obesity) Palpitations with regular cardiac rhythm (05/31/17) Periumbilical abdominal pain Tachycardia <FRANDY Gusman Last Filed: 11/01/24 14:16> Surgical History Surgical History: Surgical History History of wisdom tooth extraction <FRANDY Gusman Last Filed: 11/01/24 14:16> Family History Family History: Family History Mother Diabetes mellitus Family history of chronic obstructive pulmonary disease Family history of congestive heart failure <FRANDY Gusman Last Filed: 11/01/24 14:16> Social History Social History: Social History Smoking status: Former smoker <FRANDY Gusman Last Filed: 11/01/24 14:16> Exam Narrative: GENERAL: Well-appearing, well-nourished, and in no acute distress. HEAD: Normocephalic, atraumatic. EYES: Non injected, non icteric ENT: Nares clear, no rhinorrhea or epistaxis. Tacky mucous membranes NECK: Supple. CHEST: Speaking in full sentences. No respiratory distress. HEART: Regular rate and rhythm. . ABDOMEN: Soft, nondistended. EXTREMITIES: Normal range of motion. No lower extremity edema. SKIN: Warm, dry, no rash. NEURO: No focal deficits. Alert and oriented x3. No tremulousness. No abnormal movements appreciated. PSYCH: Congruent mood and affect. <Ondina Monique MD - Last Filed: 11/01/24 21:32> Course Vital Signs Vital signs: Vital Signs Temperature 97.8 F 11/01/24 11:43 Pulse Rate 86 11/01/24 11:43 Respiratory Rate 16 11/01/24 11:43 Blood Pressure 133/84 11/01/24 11:43 Pulse Oximetry 99 11/01/24 11:43 Oxygen Delivery Room Air 11/01/24 11:43 Temperature 97.8 F 11/01/24 14:13 Pulse Rate 89 11/01/24 18:38 Respiratory Rate 18 11/01/24 18:38 Blood Pressure 139/90 11/01/24 18:38 Pulse Oximetry 98 11/01/24 18:38 Oxygen Delivery Room Air 11/01/24 11:43 <Alejandrina Velásquez PA-C - Last Filed: 11/01/24 14:16> Vital Signs Temperature 97.8 F 11/01/24 11:43 Pulse Rate 86 11/01/24 11:43 Respiratory Rate 16 11/01/24 11:43 Blood Pressure 133/84 11/01/24 11:43 Pulse Oximetry 99 11/01/24 11:43 Oxygen Delivery Room Air 11/01/24 11:43 Temperature 97.8 F 11/01/24 14:13 Pulse Rate 89 11/01/24 18:38 Respiratory Rate 18 11/01/24 18:38 Blood Pressure 139/90 11/01/24 18:38 Pulse Oximetry 98 11/01/24 18:38 Oxygen Delivery Room Air 11/01/24 11:43 <Ondina Monique MD - Last Filed: 11/01/24 21:32> MDM - Nausea/Vomiting/Diarrhea MDM Narrative Medical decision making narrative: MSE by GIOVANI in triage. Patient refused CT abd/pelvis. CT scan 10/28 was negative. <FRANDY Gusman Last Filed: 11/01/24 14:16> Patient presents complaint persistent diarrhea of 1 week's duration. She has had 2 bowel past 20 hours. She took Imodium but states that it made heart feel funny. She is also concerned because she continues to menstrual bleeding. Her last menstrual period began 10/26/2024 (7 days ago) where is she states normally it only lasts 2 or 3 days. MSE by GIOVANI in triage. Patient refused CT abd/pelvis. CT scan 10/28 was negative. In the emergency department they are afebrile with vital signs within normal limits. The differential for acute ( less than 14d) diarrhea includes infectious etiologies (viral, preformed toxins, toxins formed after colonization, invasive bacteria, and parasites), medications, inflammatory causes (IBD, radiation enteritis, ischemic colitis, diverticulitis), malabsorption, secretory causes, or motility disorders. Patient has many concerns and symptomatic complaints. Ultimately however, her workup is generally unremarkable with no leukocytosis, anemia, impaired renal function, electrolyte abnormalities. She has a normal TSH and a normal QT/QTC. Patient does have an abnormal urinalysis however without bacteria and she is otherwise asymptomatic (denies dysuria, hematuria, any urgency or frequency) thus through shared decision making will defer administering antibiotics given this is only likely to worsen her diarrhea. Initial plan was to discharge given she had been unable to produce a stool sample after several hours. Patient advised follow-up with her primary care physician as well as Ob Gyne if symptoms persist. She is given prescription for short course of Bentyl. Patient was able to produce a stool sample just at the time of discharge. Did call the lab and verifies that would take approximately 1 hour process. Given the very low likelihood that is positive, patient will be notified if it is but ultimately it tested negative. I did extensively discuss with her her other results of her workup, spending approximately 15 minutes with her at the time of discharge. Patient seems unconvinced we discussed that well she may symptomatically be affected by her diarrhea and vaginal bleeding, no clear emergency has been identified and her body otherwise appears to be compensating appropriately. We went through her labs as the rationale for this. <Ondina Monique MD - Last Filed: 11/01/24 21:32> Differential Diagnosis Differential diagnosis: Likely traveler's diarrhea, food poisoning, gastroenteritis, clostridium difficile infection, drug-induced nausea and vomiting, dehydration and other (Drug-induced side effect; IBS; psychogenic) <Ondina Monique MD - Last Filed: 11/01/24 21:32> Medical Records Attestation: I reviewed the patient's medical records. <Ondina Monique MD - Last Filed: 11/01/24 21:32> Medical records narrative: Patient has presented to the emergency department on 10/26 and 10/28 as well as on 10/16. <Ondina Monique MD - Last Filed: 11/01/24 21:32> Lab Data Attestation: I reviewed the patient's lab results. <Ondina Monique MD - Last Filed: 11/01/24 21:32> Result diagrams: 11/01/24 15:37 11/01/24 15:37 <Alejandrina Velásquez PA-C - Last Filed: 11/01/24 14:16> Labs: Lab Results 11/01/24 11/01/24 11/01/24 Range/Units 15:37 16:54 16:57 WBC 5.5 (4.5-10.0) K/mm3 RBC 4.62 (4.2-5.4) M/mm3 Hgb 13.6 (12.0-15.0) g/dL Hct 40.6 (37.0-47.0) % MCV 87.9 (80-100) fl MCH 29.4 (26-34) pg MCHC 33.5 (32-36) g/dl RDW 12.6 (11.5-14.5) % Plt Count 280 (150-375) k/mm3 MPV 9.2 (7.4-10.4) fl Immature Gran % (Auto) 0.0 (0-0.5) % Neut % (Auto) 69.9 (45.5-73.1) % Lymph % (Auto) 23.5 (18.3-44.2) % Josephine % (Auto) 5.5 (2.6-8.5) % Eos % (Auto) 0.4 (0-4.4) % Baso % (Auto) 0.7 (0.2-1.2) % Lymph # (Auto) 1.29 (0.9-3.2) K/mm3 Josephine # (Auto) 0.3 (0.1-0.6) K/mm3 Eos # (Auto) 0.0 (0-0.3) K/mm3 Baso # (Auto) 0.0 (0.0-0.1) K/mm3 Abs Immat Gran (auto) 0.00 (0.00-0.031) K/mm3 Absolute Neuts (auto) 3.8 (1.3-6.7) K/mm3 Absolute Nucleated RBC 0.000 (0.0-0.012) K/mm3 Nucleated RBC % 0.0 (0.0-0.2) % Sodium 140 (137-145) mmol/L Potassium 4.0 (3.4-5.0) mmol/L Chloride 108 H (98-107) mmol/L Carbon Dioxide 28 (22-30) mmol/L Anion Gap 4 (4-12) mmol/L BUN 4 L (7-17) mg/dL Creatinine 0.70 (0.7-1.0) mg/dL Estim Creat Clear Calc 133 ml/min Estimated GFR > 60 (59 - ) Glucose 106 (65-110) mg/dL Calcium 9.1 (8.4-10.2) mg/dL Magnesium 2.1 (1.6-2.3) mg/dL Total Bilirubin 0.9 (0.2-1.3) mg/dL AST 24 (14-36) U/L ALT 13 (6-35) U/L Alkaline Phosphatase 69 (38-126) U/L Total Protein 8.0 (6.3-8.2) g/dL Albumin 4.7 (3.5-5.1) g/dL Lipase 48 (23-300) U/L TSH 0.907 (0.465-4.680) uIU/mL Urine Color Yellow (Yellow) Urine Appearance Clear (Clear) Urine pH 5.5 (5.0-9.0) Ur Specific [place] 1.020 (1.001-1.035) Urine Protein Negative (Negative) mg/dL Urine Glucose (UA) Negative (Negative) mg/dL Urine Ketones 3+ H (Negative) mg/dL Ur Blood (Man) 3+ H (Negative) Urine Nitrate Negative (Negative) Urine Bilirubin Negative (Negative) Urine Urobilinogen 0.2 (<2.0) mg/dL Leukocyte Esterase Rfl 1+ H (Negative) ANGUS/UL Urine RBC 6-10 H (0-2) /hpf Urine WBC 11-20 H (0-3) /hpf Ur Squamous Epith Cells Few (Few) /hpf Urine Bacteria None seen /hpf Urine Casts 0-2 Urine Test Negative C. trachomatis (PCR) Not detected (NOT DETECTE) C. difficile (PCR) (NEGATIVE) Influenza A (RT-PCR) Negative (Negative) Influenza B (RT-PCR) Negative (Negative) N. gonorrhoeae (PCR) Not detected (NOT DETECTE) RSV (RT-PCR) Negative (Negative) SARS-CoV-2 RNA (RT-PCR) Negative (Negative) T. vaginalis (PCR) Not detected (NOT DETECTE) 11/01/24 Range/Units 19:01 WBC (4.5-10.0) K/mm3 RBC (4.2-5.4) M/mm3 Hgb (12.0-15.0) g/dL Hct (37.0-47.0) % MCV (80-100) fl MCH (26-34) pg MCHC (32-36) g/dl RDW (11.5-14.5) % Plt Count (150-375) k/mm3 MPV (7.4-10.4) fl Immature Gran % (Auto) (0-0.5) % Neut % (Auto) (45.5-73.1) % Lymph % (Auto) (18.3-44.2) % Josephine % (Auto) (2.6-8.5) % Eos % (Auto) (0-4.4) % Baso % (Auto) (0.2-1.2) % Lymph # (Auto) (0.9-3.2) K/mm3 Josephine # (Auto) (0.1-0.6) K/mm3 Eos # (Auto) (0-0.3) K/mm3 Baso # (Auto) (0.0-0.1) K/mm3 Abs Immat Gran (auto) (0.00-0.031) K/mm3 Absolute Neuts (auto) (1.3-6.7) K/mm3 Absolute Nucleated RBC (0.0-0.012) K/mm3 Nucleated RBC % (0.0-0.2) % Sodium (137-145) mmol/L Potassium (3.4-5.0) mmol/L Chloride (98-107) mmol/L Carbon Dioxide (22-30) mmol/L Anion Gap (4-12) mmol/L BUN (7-17) mg/dL Creatinine (0.7-1.0) mg/dL Estim Creat Clear Calc ml/min Estimated GFR (59 - ) Glucose (65-110) mg/dL Calcium (8.4-10.2) mg/dL Magnesium (1.6-2.3) mg/dL Total Bilirubin (0.2-1.3) mg/dL AST (14-36) U/L ALT (6-35) U/L Alkaline Phosphatase (38-126) U/L Total Protein (6.3-8.2) g/dL Albumin (3.5-5.1) g/dL Lipase (23-300) U/L TSH (0.465-4.680) uIU/mL Urine Color (Yellow) Urine Appearance (Clear) Urine pH (5.0-9.0) Ur Specific [place] (1.001-1.035) Urine Protein (Negative) mg/dL Urine Glucose (UA) (Negative) mg/dL Urine Ketones (Negative) mg/dL Ur Blood (Man) (Negative) Urine Nitrate (Negative) Urine Bilirubin (Negative) Urine Urobilinogen (<2.0) mg/dL Leukocyte Esterase Rfl (Negative) ANGUS/UL Urine RBC (0-2) /hpf Urine WBC (0-3) /hpf Ur Squamous Epith Cells (Few) /hpf Urine Bacteria /hpf Urine Casts Urine Test C. trachomatis (PCR) (NOT DETECTE) C. difficile (PCR) Negative (NEGATIVE) Influenza A (RT-PCR) (Negative) Influenza B (RT-PCR) (Negative) N. gonorrhoeae (PCR) (NOT DETECTE) RSV (RT-PCR) (Negative) SARS-CoV-2 RNA (RT-PCR) (Negative) T. vaginalis (PCR) (NOT DETECTE) <Alejandrina Velásquez PA-C - Last Filed: 11/01/24 14:16> Lab Results 11/01/24 11/01/24 11/01/24 Range/Units 15:37 16:54 16:57 WBC 5.5 (4.5-10.0) K/mm3 RBC 4.62 (4.2-5.4) M/mm3 Hgb 13.6 (12.0-15.0) g/dL Hct 40.6 (37.0-47.0) % MCV 87.9 (80-100) fl MCH 29.4 (26-34) pg MCHC 33.5 (32-36) g/dl RDW 12.6 (11.5-14.5) % Plt Count 280 (150-375) k/mm3 MPV 9.2 (7.4-10.4) fl Immature Gran % (Auto) 0.0 (0-0.5) % Neut % (Auto) 69.9 (45.5-73.1) % Lymph % (Auto) 23.5 (18.3-44.2) % Josephine % (Auto) 5.5 (2.6-8.5) % Eos % (Auto) 0.4 (0-4.4) % Baso % (Auto) 0.7 (0.2-1.2) % Lymph # (Auto) 1.29 (0.9-3.2) K/mm3 Josephine # (Auto) 0.3 (0.1-0.6) K/mm3 Eos # (Auto) 0.0 (0-0.3) K/mm3 Baso # (Auto) 0.0 (0.0-0.1) K/mm3 Abs Immat Gran (auto) 0.00 (0.00-0.031) K/mm3 Absolute Neuts (auto) 3.8 (1.3-6.7) K/mm3 Absolute Nucleated RBC 0.000 (0.0-0.012) K/mm3 Nucleated RBC % 0.0 (0.0-0.2) % Sodium 140 (137-145) mmol/L Potassium 4.0 (3.4-5.0) mmol/L Chloride 108 H (98-107) mmol/L Carbon Dioxide 28 (22-30) mmol/L Anion Gap 4 (4-12) mmol/L BUN 4 L (7-17) mg/dL Creatinine 0.70 (0.7-1.0) mg/dL Estim Creat Clear Calc 133 ml/min Estimated GFR > 60 (59 - ) Glucose 106 (65-110) mg/dL Calcium 9.1 (8.4-10.2) mg/dL Magnesium 2.1 (1.6-2.3) mg/dL Total Bilirubin 0.9 (0.2-1.3) mg/dL AST 24 (14-36) U/L ALT 13 (6-35) U/L Alkaline Phosphatase 69 (38-126) U/L Total Protein 8.0 (6.3-8.2) g/dL Albumin 4.7 (3.5-5.1) g/dL Lipase 48 (23-300) U/L TSH 0.907 (0.465-4.680) uIU/mL Urine Color Yellow (Yellow) Urine Appearance Clear (Clear) Urine pH 5.5 (5.0-9.0) Ur Specific [place] 1.020 (1.001-1.035) Urine Protein Negative (Negative) mg/dL Urine Glucose (UA) Negative (Negative) mg/dL Urine Ketones 3+ H (Negative) mg/dL Ur Blood (Man) 3+ H (Negative) Urine Nitrate Negative (Negative) Urine Bilirubin Negative (Negative) Urine Urobilinogen 0.2 (<2.0) mg/dL Leukocyte Esterase Rfl 1+ H (Negative) NAGUS/UL Urine RBC 6-10 H (0-2) /hpf Urine WBC 11-20 H (0-3) /hpf Ur Squamous Epith Cells Few (Few) /hpf Urine Bacteria None seen /hpf Urine Casts 0-2 Urine Test Negative C. trachomatis (PCR) Not detected (NOT DETECTE) C. difficile (PCR) (NEGATIVE) Influenza A (RT-PCR) Negative (Negative) Influenza B (RT-PCR) Negative (Negative) N. gonorrhoeae (PCR) Not detected (NOT DETECTE) RSV (RT-PCR) Negative (Negative) SARS-CoV-2 RNA (RT-PCR) Negative (Negative) T. vaginalis (PCR) Not detected (NOT DETECTE) 11/01/24 Range/Units 19:01 WBC (4.5-10.0) K/mm3 RBC (4.2-5.4) M/mm3 Hgb (12.0-15.0) g/dL Hct (37.0-47.0) % MCV (80-100) fl MCH (26-34) pg MCHC (32-36) g/dl RDW (11.5-14.5) % Plt Count (150-375) k/mm3 MPV (7.4-10.4) fl Immature Gran % (Auto) (0-0.5) % Neut % (Auto) (45.5-73.1) % Lymph % (Auto) (18.3-44.2) % Josephine % (Auto) (2.6-8.5) % Eos % (Auto) (0-4.4) % Baso % (Auto) (0.2-1.2) % Lymph # (Auto) (0.9-3.2) K/mm3 [place] # (Auto) (0.1-0.6) K/mm3 Eos # (Auto) (0-0.3) K/mm3 Baso # (Auto) (0.0-0.1) K/mm3 Abs Immat Gran (auto) (0.00-0.031) K/mm3 Absolute Neuts (auto) (1.3-6.7) K/mm3 Absolute Nucleated RBC (0.0-0.012) K/mm3 Nucleated RBC % (0.0-0.2) % Sodium (137-145) mmol/L Potassium (3.4-5.0) mmol/L Chloride (98-107) mmol/L Carbon Dioxide (22-30) mmol/L Anion Gap (4-12) mmol/L BUN (7-17) mg/dL Creatinine (0.7-1.0) mg/dL Estim Creat Clear Calc ml/min Estimated GFR (59 - ) Glucose (65-110) mg/dL Calcium (8.4-10.2) mg/dL Magnesium (1.6-2.3) mg/dL Total Bilirubin (0.2-1.3) mg/dL AST (14-36) U/L ALT (6-35) U/L Alkaline Phosphatase (38-126) U/L Total Protein (6.3-8.2) g/dL Albumin (3.5-5.1) g/dL Lipase (23-300) U/L TSH (0.465-4.680) uIU/mL Urine Color (Yellow) Urine Appearance (Clear) Urine pH (5.0-9.0) Ur Specific [place] (1.001-1.035) Urine Protein (Negative) mg/dL Urine Glucose (UA) (Negative) mg/dL Urine Ketones (Negative) mg/dL Ur Blood (Man) (Negative) Urine Nitrate (Negative) Urine Bilirubin (Negative) Urine Urobilinogen (<2.0) mg/dL Leukocyte Esterase Rfl (Negative) ANGUS/UL Urine RBC (0-2) /hpf Urine WBC (0-3) /hpf Ur Squamous Epith Cells (Few) /hpf Urine Bacteria /hpf Urine Casts Urine Test C. trachomatis (PCR) (NOT DETECTE) C. difficile (PCR) Negative (NEGATIVE) Influenza A (RT-PCR) (Negative) Influenza B (RT-PCR) (Negative) N. gonorrhoeae (PCR) (NOT DETECTE) RSV (RT-PCR) (Negative) SARS-CoV-2 RNA (RT-PCR) (Negative) T. vaginalis (PCR) (NOT DETECTE) <Ondina Monique MD - Last Filed: 11/01/24 21:32> ECG Data EKG #1: Attestation: I personally reviewed and interpreted this ECG as follows: <Ondina Monique MD - Last Filed: 11/01/24 21:32> ECG completion date: 11/01/24 <Ondina Monique MD - Last Filed: 11/01/24 21:32> ECG completion time: 12:31 <Ondina Monique MD - Last Filed: 11/01/24 21:32> Interpretation: Normal sinus rhythm at a rate of 80 beats per minute. NH interval 124. QRS 87. QT/QTC 381/416. Good R-wave progression across the precordial leads. T-wave inversion in lead 3 but upright in normal in contiguous inferior leads 2 and AVF. No other T-wave inversions. <Ondina Monique MD - Last Filed: 11/01/24 21:32> EKG #2: Attestation: I personally reviewed and interpreted this ECG as follows: <Ondina Monique MD - Last Filed: 11/01/24 21:32> ECG completion date: 11/01/24 <Ondina Monique MD - Last Filed: 11/01/24 21:32> ECG completion time: 13:33 <Ondina Monique MD - Last Filed: 11/01/24 21:32> Interpretation: Normal sinus rhythm at a rate of 90 beats per minute. NH interval 140. QRS 81. QT/QTC 349/4 5. Good R-wave progression across the precordial leads. T-wave inversion in lead 3 otherwise normal in contiguous inferior leads. <Ondina Monqiue MD - Last Filed: 11/01/24 21:32> Discharge Plan Discharge Clinical Impression: Acute diarrhea, Medication side effect <FRANDY Gusman Last Filed: 11/01/24 14:16> Patient Disposition: Home, Self-Care <FRANDY Gusman Last Filed: 11/01/24 14:16> Condition: Stable <FRANDY Gusman Last Filed: 11/01/24 14:16> Instructions: Antibiotic Form, Acute Diarrhea (ED) <FRANDY Gusman Last Filed: 11/01/24 14:16> Additional Instructions: Your QT interval is normal. Your thyroid function is normal. Your labs including white blood cell count, red blood cells (hemoglobin; you are not anemic), kidney function, and electrolytes are normal. Follow up with your primary care physician and, if uterine/vaginal bleeding persists, your ObGyn. Do not continue to take Immodium, both because you seemed to not respond well to it and because acute diarrhea typically has to run its course. <FRANDY Gusman Last Filed: 11/01/24 14:16> Patient Language: Chinese <FRANDY Gusman Last Filed: 11/01/24 14:16> Prescriptions: New dicyclomine 10 mg capsule 10 mg PO BID PRN (Reason: abdominal pain) Qty: 10 0RF No Action Slynd 4 mg (28) tablet 1 tablet PO DAILY azithromycin [Zithromax Z-Mike] 250 mg tablet See Rx Instructions .ROUTE .COMPLEX Qty: 6 0RF Rx Instructions: take 500 mg today (day 1), then 250 mg for 4 days (days 2-5) promethazine 50 mg tablet 50 mg PO Q6H PRN (Reason: nausea) Qty: 10 0RF ondansetron 4 mg tablet,disintegrating 4 mg PO Q8H PRN (Reason: nausea and vomiting) Qty: 14 0RF omeprazole 20 mg capsule,delayed release(DR/EC) 20 mg PO DAILY 14 Days Qty: 14 0RF <Alejandrina Velásquez PA-C - Last Filed: 11/01/24 14:16> Follow-up/Referrals: Yani,Trenton Washington MD [Primary Care Provider] - NedrowNeelima MD [Physician] - (OBGYN) <Alejandrina Velásquez PA-C - Last Filed: 11/01/24 14:16> Stand Alone Forms: Work/School Release IP <Alejandrina Velásquez PA-C - Last Filed: 11/01/24 14:16> Time of Disposition: 19:19 <Alejandrina Velásquez PA-C - Last Filed: 11/01/24 14:16> 19:19 <Ondina Monique MD - Last Filed: 11/01/24 21:32>
[2024-11-01 14:13] VITALS: BP 145/94; PULSE 86; RESP 16; TEMP 36.6; O2SAT 100
[2024-11-01 15:44] LABS: Basophils Percent Auto 0.7 % (0.2-1.2); Eosinophils Percent Auto 0.4 % (0-4.4); Hematocrit 40.6 % (37.0-47.0); Hemoglobin 13.6 g/dL (12.0-15.0); Lymphocytes Absolute Auto 1.29 K/mm3 (0.9-3.2); Lymphocytes Percent Auto 23.5 % (18.3-44.2); Mean Corpuscular HGB Conc 33.5 g/dl (32-36); Mean Corpuscular Hemoglobin 29.4 pg (26-34); Mean Corpuscular Volume 87.9 fl (80-100); Mean Platelet Volume 9.2 fl (7.4-10.4); Monocytes Absolute Auto 0.3 K/mm3 (0.1-0.6); Monocytes Percent Auto 5.5 % (2.6-8.5); Neutrophils Absolute Auto 3.8 K/mm3 (1.3-6.7); Neutrophils Percent Auto 69.9 % (45.5-73.1); Platelet Count Result 280 k/mm3 (150-375); Red Blood Count 4.62 M/mm3 (4.2-5.4); Red Cell Distribution Width 12.6 % (11.5-14.5); White Blood Count 5.5 K/mm3 (4.5-10.0)
[2024-11-01 15:59] LABS: Alanine Aminotransferase 13 U/L (6-35); Albumin Level 4.7 g/dL (3.5-5.1); Alkaline Phosphatase 69 U/L (38-126); Anion Gap 4 mmol/L (4-12); Aspartate Amino Transferase 24 U/L (14-36); Bilirubin,Total 0.9 mg/dL (0.2-1.3); Blood Urea Nitrogen 4 mg/dL (7-17); Calcium 9.1 mg/dL (8.4-10.2); Carbon Dioxide 28 mmol/L (22-30); Chloride 108 mmol/L (98-107); Estimated CRCL calculation 133 ml/min; Estimated Glomerular Filt Rate > 60; Glucose 106 mg/dL (65-110); Lipase 48 U/L (23-300); Magnesium 2.1 mg/dL (1.6-2.3); Sodium 140 mmol/L (137-145)
[2024-11-01 16:42] VITALS: BP 147/98; PULSE 82; RESP 18; O2SAT 96
[2024-11-01] MEDS: ONDANSETRON INJ 4 MG/2 ML VIAL IV PUSH (17:02)
[2024-11-01] MEDS: SODIUM CHLORIDE 0.9% IV 1,000 ML 999 ML IV CONT ×2 (17:02→17:48)
[2024-11-01 17:20] LABS: Thyroid Stimulating Hormone 0.907 uIU/mL (0.465-4.680)
[2024-11-01 17:20] LABS: Add Urine Microscopic? YES; Appearance Urine Clear (Clear); Bacteria Urine None Seen /hpf; Bilirubin Urine Negative (Negative); Blood Urine 3+ (Negative); Color Urine Yellow (Yellow); Glucose Urine UA Negative (Negative); Ketones Urine 3+ mg/dL (Negative); Leukocyte Esterase Ur 1+ LEU/UL (Negative); Nitrate Urine Negative (Negative); Non Pathogenic Casts 0-2; Protein Urine Negative (Negative); Squamous Epithelial Cell Urine Few /hpf (Few); Urobilinogen Urine 0.2 mg/dL (<2.0); pH Urine 5.5 (5.0-9.0)
[2024-11-01 18:09] LABS: Pregnancy On Board Control Positive; Urine Pregnancy Test Negative
[2024-11-01 18:22] LABS: Trichomonas Vag PCR NOT DETECTED (NOT DETECTE)
[2024-11-01 18:38] VITALS: BP 139/90; PULSE 89; RESP 18; O2SAT 98
[2024-11-01] MEDS: DICYCLOMINE HCL 10 MG CAPSULE PO (18:38)
[2024-11-01 18:46] LABS: Chlamydia trachomatis NOT DETECTED (NOT DETECTE); Neisseria gonorrhoeae PCR NOT DETECTED (NOT DETECTE)
[2024-11-01 18:54] LABS: Influenza A QL RT-PCR Negative (Negative); Influenza B QL RT-PCR Negative (Negative); RSV RNA, RT-PCR Negative (Negative); SARS-CoV-2 RNA PCR Negative (Negative)
[2024-11-01 20:11] LABS: Toxigenic C. Diff NEGATIVE (NEGATIVE)
--- OUTSIDE RECORDS SUMMARY | 2024-11-08 06:40 | XMS_ITS | Encounter Summary ---
Author Organization [facility] - [facility] Address [address] [place] [address]. [place], [place] [id number] [place] [address] Care Team Providers Care Sales Team Recruiter Name Role Phone Sergo Mackey MD Primary Care Provider Julian short Encounter Details Date Type Department Care Team (Latest Contact Info) Description 06/18/2017 Abstract [facility] Medical Group Social History Tobacco Use Types [...] filedocumented in this encounter Care Teams Sales Team Recruiter Relationship Specialty Start Date End Date Sergo Mackey MD PCP - General 04/07/17 documented as of this encounter
--- OUTSIDE RECORDS SUMMARY | 2024-11-08 06:40 | XMS_ITS | Encounter Summary ---
Author Organization [facility] - [facility] Address [address] [place] [address]. [place], [place] [id number] [place] [address] Care Team Providers Care Gum Maker Name Role Phone Sergo Mackey MD Primary Care Provider Julian short Encounter Details Date Type Department Care Team (Latest Contact Info) Description 09/02/2017 Abstract [facility] Medical Group Social History Tobacco Use Types [...] on filedocumented in this encounter Care Teams Gum Maker Relationship Specialty Start Date End Date Sergo Mackey MD PCP - General 04/07/17 documented as of this encounter
--- OUTSIDE RECORDS SUMMARY | 2024-11-08 06:40 | XMS_ITS | Encounter Summary ---
Author Organization [facility] - [facility] Address [address] [place] [address]. [place], [place] [id number] [place] [address] Care Team Providers Care Gasoline Engine Inspector Name Role Phone Sergo Mackey MD Primary Care Provider Julian short Encounter Details Date Type Department Care Team (Latest Contact Info) Description 08/10/2017 Abstract [facility] Medical Group Social History Tobacco Use Types [...] filedocumented in this encounter Care Teams Gasoline Engine Inspector Relationship Specialty Start Date End Date Sergo Mackey MD PCP - General 04/07/17 documented as of this encounter
--- OUTSIDE RECORDS SUMMARY | 2024-11-08 06:40 | XMS_ITS | Encounter Summary ---
Author Organization [facility] - [facility] Address [address] [place] [address]. [place], [place] [id number] [place] [address] Care Team Providers Care Museum Guide Name Role Phone Sergo Mackey MD Primary Care Provider Julian short Encounter Details Date Type Department Care Team (Latest Contact Info) Description 06/29/[address] [facility] Medical Group Social History Tobacco Use Types [...] on filedocumented in this encounter Care Teams Museum Guide Relationship Specialty Start Date End Date Sergo Mackey MD PCP - General 04/07/17 documented as of this encounter
--- OUTSIDE RECORDS SUMMARY | 2024-11-08 06:40 | XMS_ITS | Encounter Summary ---
Author Organization [facility] Address [address] [place] [address]. [place], [place] [id number] [place] [address] Care Team Providers Care Wet Suit Gluer Name Role Phone Sergo Mackey MD Primary Care Provider Julian short Encounter Details Date Type Department Care Team (Latest Contact Info) Description 08/10/2018 Abstract [facility] Medical Group James Luther MD [...] on filedocumented in this encounter Care Teams Wet Suit Gluer Relationship Specialty Start Date End Date Sergo Mackey MD PCP - General 04/07/17 documented as of this encounter
--- OUTSIDE RECORDS SUMMARY | 2024-11-08 06:40 | XMS_ITS | Encounter Summary ---
Author Organization [facility] Address [address] [place] [address]. [place] [address] [place] [address] Care Team Providers Care Windows Software Engineer Name Role Phone Sergo Mackey MD Primary Care Provider Julian short Encounter Details Date Type Department Care Team (Latest Contact Info) Description 04/21/2017 Abstract [facility] Medical Group Social History Tobacco Use Types [...] Mackey Task Name: Follow Up [place] [facility] [place]ra Regarding Patient: [...] Fariba Garvey MA; Apr 21 2017 12:19PM BUSINESS MGR (Author) * James Pineda Md, MD - 04/21/2017 12:19 PM CDT Message Recorded as Task Date: 04/16/2017 02:39 PM, Created By: Carmela Haynes Task Name: Medical Complaint Callback Assigned To: [facility] [place] Narendra Regarding Patient: Alia Fabian, Status: In Progress Comment: Carmela Haynes - 16 Apr 2017 2:39 PM TASK CREATED Caller: Lay, Parent; (Day); Lay (patients mother) calling about the Results of CT done at [place] on 04/12/17. CB# [phone] or [phone] Jovanni Omalley - 16 Apr 2017 3:09 PM TASK EDITED mother informed we do not have results yet Message: patient notified -sjs Signatures Electronically signed by : Fariba Garvey MA; Apr 21 2017 12:19PM BUSINESS MGR (Author) documented in this encounter Plan of Treatment Not on file documented as of this encounter Visit Diagnoses Not on filedocumented in this encounter Care Teams Windows Software Engineer Relationship Specialty Start Date End Date Sergo Mackey MD PCP - General 04/07/17 documented as of this encounter
--- OUTSIDE RECORDS SUMMARY | 2024-11-08 06:40 | XMS_ITS | Encounter Summary ---
Author Organization [facility] - [facility] Address [facility]. [place], [place] [address] [place] [address] Care Team Providers Care Engineer Specialist Name Role Phone Sergo Mackey MD Primary Care Provider Julian short Encounter Details Date Type Department Care Team (Latest Contact Info) Description 08/23/2017 Abstract [facility] Medical Group Social History Tobacco [...] Jovanni Omalley MA; Aug 23 2017 9:39AM SCRAP DROP ENGINEER (Author) documented in this encounter Plan of Treatment Not on file documented as of this encounter Visit Diagnoses Not on filedocumented in this encounter Care Teams Engineer Specialist Relationship Specialty Start Date End Date Sergo Mackey MD PCP - General 04/07/17 documented as of this encounter
--- OUTSIDE RECORDS SUMMARY | 2024-11-08 06:40 | XMS_ITS | Encounter Summary ---
Author Organization [facility] - [facility] Address [address] [place] [address]. [place], [place] [address] [place] [address] Care Team Providers Care Hadoop Admin Name Role Phone Sergo Mackey MD Primary Care Provider Julian short Encounter Details Date Type Department Care Team (Latest Contact Info) Description 04/11/2017 Abstract [facility] Medical Group Social History Tobacco Use [...] Bilirubin Negative Ketones 5 mg/dL-Trace A Specific Oakley 1.020 Blood Negative pH 7.0 5.0 - [...] Eloisa Wolfe R.N.; Apr 12 2017 8:14AM NEW CAR SALESPERSON (Author) documented in this encounter Plan of Treatment Not on file documented as of this encounter Visit Diagnoses Not on filedocumented in this encounter Care Teams Hadoop Admin Relationship Specialty Start Date End Date Sergo Mackey MD PCP - General 04/07/17 documented as of this encounter
--- OUTSIDE RECORDS SUMMARY | 2024-11-08 06:40 | XMS_ITS | Encounter Summary ---
Author Organization [facility] - [facility] Address [address] [place] [address]. [place], [place] [address] [place] [address] Care Team Providers Care Servicer Name Role Phone Sergo Mackey MD Primary Care Provider Julian short Encounter Details Date Type Department Care Team (Latest Contact Info) Description 05/12/2017 Abstract [facility] Medical Group Social History Tobacco Use Types [...] on filedocumented in this encounter Care Teams Servicer Relationship Specialty Start Date End Date Sergo Mackey MD PCP - General 04/07/17 documented as of this encounter
--- OUTSIDE RECORDS SUMMARY | 2024-11-08 06:40 | XMS_ITS | Encounter Summary ---
Author Organization [facility] - [facility] Address [address] [place] [address]. [place], [place] [address] [place] [address] Care Team Providers Care Media Director Name Role Phone Sergo Mackey MD Primary Care Provider Julian short Encounter Details Date Type Department Care Team (Latest Contact Info) Description 09/16/2017 Abstract [facility] Medical Group [...] on filedocumented in this encounter Care Teams Media Director Relationship Specialty Start Date End Date Sergo Mackey MD PCP - General 04/07/17 documented as of this encounter
--- OUTSIDE RECORDS SUMMARY | 2024-11-08 06:40 | XMS_ITS | Encounter Summary ---
Author Organization [facility] - [facility] Address [address] [place] [address]. [place], [place] [address] [place] [address] Care Team Providers Care Manager People Name Role Phone Sergo Mackey MD Primary Care Provider Julian short Encounter Details Date Type Department Care Team (Latest Contact Info) Description 04/08/2017 Abstract [facility] Medical Group Social History Tobacco Use [...] filedocumented in this encounter Care Teams Manager People Relationship Specialty Start Date End Date Sergo Mackey MD PCP - General 04/07/17 documented as of this encounter
--- OUTSIDE RECORDS SUMMARY | 2024-11-08 06:40 | XMS_ITS | Encounter Summary ---
Author Organization [facility] Address [facility] [place] [address] [place] [address] Care Team Providers Care Logistics System Engineer Name Role Phone Sergo Mackey MD Primary Care Provider Julian short Encounter Details Date Type Department Care Team (Late st Contact Info) Description 04/07/2017 Abstract [facility] Medical Group Family & Internal Medicine [address] [address] Sergo Mackey MD Social History [...] BY MOUTH TWICE DAILY; Therapy: 13Aug2016 to (Evaluate:[id number]) Requested for: 21Sep2016; Last Rx:[id number] Ordered Rx By: Nellie Moy; Dispense: 30 Days ; #:60 Capsule; Refill: 0; For: Abdominal cramping, generalized; JULIANA = N; Print Rx; Last Updated By: Blued; 09/21/2016 8:25:38 AM 2. ClonazePAM 1 MG Oral Tablet; TAKE 1 TABLET BY MOUTH THREE TIMES DAILY NEEDED; Therapy: 10Sep2016 to (Evaluate:01Feb2017) Requested for: 04Bhe1301; Last Rx:[id number] Ordered Rx By: Sergo Mackey; Dispense: 30 Days ; #:90 Tablet; Refill: 1; For: Bipolar mood disorder; JULIANA = N; Print Rx 3. Fluticasone Propionate 50 MCG/ACT Nasal Suspension; USE 2 SPRAYS IEN QD; Therapy: 00Nff0392 to (Evaluate:15Apr2017) Requested for: [id number]; Last Rx:[id number] Ordered Rx By: Sergo Mackey; Dispense: 30 Days ; #:1 X 16 GM Bottle; Refill: 0; For: Allergic rhinitis;JULIANA = N; Verified Transmission to [place] [address]; Last Updated By: Blued;03/16/2017 3:38:23 PM Allergies 1. 12 Hour Decongestant [...] In Office; Status:Resulted - Requires Verification; Done: [id number] 12:00AM Last Updated By:Angela Lal; 04/11/2017 9:30:11 AM;Ordered; For:Dysuria; Ordered By:Sergo Mackey; Signatures Electronically signed by : Sergo Mackey M.D.; Apr 11 2017 5:12PM TANK TRUCK MECHANIC (Author) documented in this encounter Plan of [...] URINE ORDERABLES Final Result Performing Organization Address [facility] de Phone Number [employer] TO EPIC CONVERSION [...] ORDERA BLES Final Result Performing Organization Address [facility] Co de Phone Number [employer] TO EPIC CONVERSION documented in this encounter Visit Diagnoses Not on filedocumented in this encounter Care Teams Logistics System Engineer Relationship Specialty Start Date End Date Sergo Mackey MD PCP - General 04/07/17 documented as of this encounter
--- OUTSIDE RECORDS SUMMARY | 2024-11-08 06:40 | XMS_ITS | Encounter Summary ---
Author Organization [facility] Address [facility]. [place], [place] [address] [place] [address] Care Team Providers Care Founder And Chief Technical Officer Name Role Phone Sergo Mackey MD Primary Care Provider Julian short Encounter Details Date Type Department Care Team (Latest Contact Info) Description 05/25/2017 Abstract [facility] Medical Group Social History Tobacco [...] Task Name: Medical Complaint Callback Assigned To: [facility] Team Narendra Regarding Patient: Alia Fabian, Status: In Progress Comment: Jaclyn Santana - 25 May 2017 11:21 AM TASK CREATED Caller: Lay, Mother; Medical Complaint; [phone] pt saw neuro Damaris [place]ing at [facility] last Wednesday for weakness in legs, arms, [...] order and wants us to order phone [phone] for neuro pts #[phone] Sergo Mackey - 25 May 2017 11:54 [...] Fariba Garvey MA; May 25 2017 4:34PM FISH ICER (Author) documented in this encounter Plan of Treatment Not on file documented as of this encounter Visit Diagnoses Not on filedocumented in this encounter Care Teams Founder And Chief Technical Officer Relationship Specialty Start Date End Date Sergo Mackey MD PCP - General 04/07/17 documented as of this encounter
--- OUTSIDE RECORDS SUMMARY | 2024-11-08 06:40 | XMS_ITS | Clinical Summary ---
Author Organization [facility] Address [address] [place] [address]. [place] [address] [place] [address] Care Team Providers Care Technician Submarine Cable Equipment Name Role Phone Sergo Mackey MD Primary [...] age to complete this topic Care Teams Technician Submarine Cable Equipment Relationship Specialty Start Date End Date Sergo Mackey MD PCP - General 04/07/17
--- OUTSIDE RECORDS SUMMARY | 2024-11-08 06:40 | XMS_ITS | Encounter Summary ---
Author Organization [facility] Address [facility]6 [facility] [place] [address] [place] [address] Care Team Providers Care Labor Relations Supervisor Name Role Phone Sergo Mackey MD Primary Care Provider Sergo Duncan MD Primary Care Provider Julian short Encounter Details Date Type Department Care Team (Latest Contact Info) Description 03/22/2017 Abstract [facility] Medical [facility] Social [...] Mackey Task Name: Follow Up Assigned To: [facility] Team Narendra Regarding Patient: Alia Fabian, Status: In Progress Comment: Sergo Mackey - 19 Mar 2017 8:53 AM TASK CREATED Our routine labs (cbc, cmp, tsh) are all good/normal. Await lab results from fuel distribution system operator. Fariba Garvey - 19 Mar 2017 8:55 AM TASK IN PROGRESS Fariba Garvey - 19 Mar 2017 8:56 AM TASK EDITED [id number] Jovanni Omalley - 22 Mar 2017 2:38 PM TASK EDITED pt informed and voiced understanding Signatures Electronically signed by : Jovanni Omalley MA; Mar 22 2017 2:38PM TECHNICAL TRAINING MANAGER (Author) documented in this encounter Plan of Treatment Not on file documented as of this encounter Visit Diagnoses Not on filedocumented in this encounter Care Teams Labor Relations Supervisor Relationship Specialty Start Date End Date Sergo Mackey MD PCP - General 04/07/17 Sergo Mackey MD PCP - General 08/05/16 04/06/17 documented as of this encounter
--- OUTSIDE RECORDS SUMMARY | 2024-11-08 06:40 | XMS_ITS | Encounter Summary ---
Author Organization [facility] - [facility] Address [address] [place] [address]. [place], [place] [address] [place] [address] Care Team Providers Care Grove Worker Name Role Phone Sergo Mackey MD Primary Care Provider Julian short Encounter Details Date Type Department Care Team (Latest Contact Info) Description 08/27/2017 Abstract [facility] Medical Group Social History Tobacco Use [...] on filedocumented in this encounter Care Teams Grove Worker Relationship Specialty Start Date End Date Sergo Mackey MD PCP - General 04/07/17 documented as of this encounter
--- OUTSIDE RECORDS SUMMARY | 2024-11-08 06:40 | XMS_ITS | Encounter Summary ---
Author Organization [facility] - [facility] Address [address] [place] [address]. [place], [place] [address] [place] [address] Care Team Providers Care Extractions Technologist Name Role Phone Sergo Mackey MD Primary Care Provider Julian short Encounter Details Date Type Department Care Team (Latest Contact Info) Description 08/30/2017 Abstract [facility] Medical Group Social History Tobacco Use [...] on filedocumented in this encounter Care Teams Extractions Technologist Relationship Specialty Start Date End Date Sergo Mackey MD PCP - General 04/07/17 documented as of this encounter
--- OUTSIDE RECORDS SUMMARY | 2024-11-08 06:40 | XMS_ITS | Encounter Summary ---
Author Organization [facility] - [facility] Address [address] [place] [address]. [place], [place] [address] [place] [address] Care Team Providers Care Rental Salesperson Name Role Phone Sergo Mackey MD Primary Care Provider Julian short Encounter Details Date Type Department Care Team (Latest Contact Info) Description 06/08/2017 Abstract [facility] Medical Group Social [...] on filedocumented in this encounter Care Teams Rental Salesperson Relationship Specialty Start Date End Date Sergo Mackey MD PCP - General 04/07/17 documented as of this encounter
--- OUTSIDE RECORDS SUMMARY | 2024-11-08 06:40 | XMS_ITS | Encounter Summary ---
Author Organization [facility] - [facility] Address [address] [place] [address]. [place], [place] [address] [place] [address] Care Team Providers Care Annual Campaign Manager Name Role Phone Sergo Mackey MD Primary Care Provider Julian short Encounter Details Date Type Department Care Team (Latest Contact Info) Description 09/07/2017 Abstract [facility] Medical Group Social History Tobacco Use [...] on filedocumented in this encounter Care Teams Annual Campaign Manager Relationship Specialty Start Date End Date Sergo Mackey MD PCP - General 04/07/17 documented as of this encounter
--- OUTSIDE RECORDS SUMMARY | 2024-11-08 06:40 | XMS_ITS | Encounter Summary ---
Author Organization [facility] Address [address] [place] [address]. [place] [address] [place] [address] Care Team Providers Care Interior Specialist Name Role Phone Sergo Mackey MD Primary Care Provider Julian short Encounter Details Date Type Department Care Team (Latest Contact Info) Description 07/15/2017 Abstract [facility] Medical Group Social History Tobacco Use Types [...] ORDER MAILED ---NK Verified Results LC-Vitamin B12 [id number] 01:54PM Sergo Mackey Test Name Result Flag Reference Vitamin B12 580 pg/mL 211-946 LC-Vitamin D, 25-Hydroxy 020839 [id number] 01:54PM Sergo Mackey Test Name Result Flag Reference Vitamin D, 25-Hydroxy 15.7 ng/mL L 30.0-100.0 Vitamin D deficiency has been defined by the [place] of Medicine and an Endocrine Society practice guideline as a level of serum 25-OH vitamin D less than 20 ng/mL (1,2). The Endocrine Society went on to further define vitamin D insufficiency as a level between 21 and 29 ng/mL (2). 1. IOM ([place] of Medicine). 2010. Dietary reference intakes for [...] Berenice Barone MA; Jul 15 2017 3:52PM FORGING PRESS LEVER TENDER (Author) documented in this encounter Plan of Treatment Not on file documented as of this encounter Visit Diagnoses Not on filedocumented in this encounter Care Teams Interior Specialist Relationship Specialty Start Date End Date Sergo Mackey MD PCP - General 04/07/17 documented as of this encounter
--- OUTSIDE RECORDS SUMMARY | 2024-11-08 06:40 | XMS_ITS | Encounter Summary ---
Author Organization [facility] Address [facility] [place] [address] [place] [address] Care Team Providers Care Health Information Internship Name Role Phone Sergo Mackey MD Primary Care Provider Julian short Encounter Details Date Type Department Care Team (Late st Contact Info) Description 07/06/2017 Abstract [facility] Medical Group Family & Internal Medicine [address] [address] Sergo Mackey MD Social History [...] NEEDED; Therapy: 10Sep2016 to (Evaluate:01Feb2017) Requested for: [id number]; Last Rx:[id number] Ordered Rx By: Sergo Mackey; Dispense: 30 Days ; #:90 Tablet; Refill: 1; For: Bipolar mood disorder; JULIANA = N; Print Rx 2. Fluticasone Propionate 50 MCG/ACT Nasal Suspension; USE 2 SPRAYS IEN QD; Therapy: [id number] to (Evaluate:15Apr2017) Requested for: [id number]; Last Rx:[id number] Ordered Rx By: Sergo Mackey; Dispense: 30 Days ; #:1 X 16 GM Bottle; Refill: 0; For: Allergic rhinitis;JULIANA = N; Verified Transmission to [facility] [address]; Last Updated By: Dayron Rae;03/16/2017 3:38:23 PM Allergies 1. 12 Hour Decongestant TB12 Recorded By: Shirley Zhang; 04/10/2014 3:10:36 PM Vitals Recorded: [id number] 02:18PM Heart Rate 117 Respiration 16 Systolic [...] generalized; JULIANA = N; Verified Transmission to [facility] [address]; Last Updated By: Dayron Rae; 07/06/2017 2:59:43 PM 2. MRI C SPINE W/O; Status:Need Information - Financial Authorization; Requested for:[id number]; Perform:Other Radiology; Due:05Aug2017; Last Updated By:Carmela Haynes; 07/06/2017 3:06:15 PM;Ordered; For:Frequent falls, Labile blood pressure, Neck pain, Tremor, Weakness generalized; Ordered By:Sergo Mackey; [facility] 3. MRI L SPINE W/O; Status:Need Information - Financial Authorization; Requested for:[id number]; Perform:Other Radiology; Due:05Aug2017; Last Updated By:Fariba Garvey; [...] Status:Hold For - Manual Activation; Requested for:06Jul2017; Perform:[facility]; Due:05Aug2017; Last Updated By:Fariba Garvey; 07/06/2017 2:59:16 PM;Ordered; For:Frequent falls, Labile blood pressure, Neck pain, Tremor, Weakness generalized; Ordered By:Sergo Mackey; 6. Vitamin D 25 - Hydroxy; Status:Hold For - Manual Activation; Requested for:06Jul2017; Perform:[facility]; Due:05Aug2017; Last Updated By:Fariba Garvey; 07/06/2017 2:59:16 PM;Ordered; For:Frequent falls, Labile blood pressure, Neck pain, Tremor, Weakness generalized; Ordered By:Sergo Mackey; She understands I will have exhausted my input into her chronic symptoms after these tests are performed. She'll need followup with her neurologist and store deli manager for further direction. Signatures Electronically signed by : Sergo Mackey M.D.; Jul 07 2017 5:33AM BISQUE CLEANER (Author) documented in this encounter Plan of Treatment Not on file documented as of this encounter Visit Diagnoses Not on filedocumented in this encounter Care Teams Health Information Internship Relationship Specialty Start Date End Date Sergo Mackey MD PCP - General 04/07/17 documented as of this encounter
--- OUTSIDE RECORDS SUMMARY | 2024-11-08 06:40 | XMS_ITS | Encounter Summary ---
Author Organization [facility] - [facility] Address [address] [place] [address]. [place], [place] [address] [place] [address] Care Team Providers Care Travelift Operator Name Role Phone Sergo Mackey MD Primary Care Provider Julian short Encounter Details Date Type Department Care Team (Latest Contact Info) Description 04/13/2017 Abstract [facility] Medical Group Social History Tobacco [...] on filedocumented in this encounter Care Teams Travelift Operator Relationship Specialty Start Date End Date Sergo Mackey MD PCP - General 04/07/17 documented as of this encounter
--- OUTSIDE RECORDS SUMMARY | 2024-11-08 06:40 | XMS_ITS | Encounter Summary ---
Author Organization [facility] - [facility] Address [address] [place] [address]. [place], [place] [address] [place] [address] Care Team Providers Care Recording Clerk Name Role Phone Sergo Mackey MD Primary Care Provider Julian short Encounter Details Date Type Department Care Team (Latest Contact Info) Description 08/19/2017 Abstract [facility] Medical Group [...] on filedocumented in this encounter Care Teams Recording Clerk Relationship Specialty Start Date End Date Sergo Mackey MD PCP - General 04/07/17 documented as of this encounter
--- OUTSIDE RECORDS SUMMARY | 2024-11-08 06:40 | XMS_ITS | Encounter Summary ---
Author Organization [facility] Address [address] [place] [address]. [place], [place] [address] [place] [address] Care Team Providers Care Head Turbine Operator Name Role Phone Sergo Mackey MD Primary Care Provider Julian short Encounter Details Date Type Department Care Team (Latest Contact Info) Description 07/13/2017 Abstract [facility] Medical Group Sergo Mackey MD Social [...] D deficiency has been defined by the [place] of Medicine and an Endocrine Society practice guideline as a level of serum 25-OH vitamin D less than 20 ng/mL (1,2). The Endocrine Society went on to further define vitamin D insufficiency as a level between 21 and 29 ng/mL (2). 1. IOM ([place] of Medicine). 2010. Dietary reference ?? intakes for calcium and D. [place]: The ?? National [employer]. 2. Brian MF, Cam PARKINSON, Nereyda [...] filedocumented in this encounter Care Teams Head Turbine Operator Relationship Specialty Start Date End Date Sergo Mackey MD PCP - General 04/07/17 documented as of this encounter
--- OUTSIDE RECORDS SUMMARY | 2024-11-08 06:40 | XMS_ITS | Encounter Summary ---
Author Organization [facility] Address [address] [place] [address]. [place] [address] [place] [address] Care Team Providers Care Recruitment Coordinator Name Role Phone Sergo Mackey MD Primary Care Provider Julian short Encounter Details Date Type Department Care Team (Late st Contact Info) Description 04/07/2017 Abstract [facility] [place] [address] Sergo Mackey MD Social History [...] URINE CLEAN CATCH 04/07/2017 5:42 PM CDT [facility] COLOR (U) YELLOW 04/07/2017 8:01 PM CDT [facility] TRANSPARENCY CLOUDY 04/07/2017 8:01 PM CDT [facility] SPECIFIC GRAVITY (U) 1.026 1.001 - 1.030 04/07/2017 8:01 PM CDT [facility] U PH 6.0 5.0 - 9.0 04/07/2017 8:01 PM CDT [facility] LEUKOCYTES (U) NEGATIVE NEGATIVE 04/07/2017 8:01 PM T [facility] NITRITES NEGATIVE NEGATIVE 04/07/2017 8:01 PM CDT [facility] PROTEIN (U) NEGATIVE <30 MG/DL 04/07/2017 8:01 PM CDT [facility] URINE GLUCOSE NEGATIVE NEGATIVE MG/DL 04/07/2017 8:01 PM CDT [facility] KETONES MG/DL (U) NEGATIVE NEGATIVE MG/DL 04/07/2017 8:01 PM T [facility] UROBILINOGEN 2.0(A) NEGATIVE MG/DL 04/07/2017 8:01 PM T [facility] BILIRUBIN (U) NEGATIVE NEGATIVE MG/DL 04/07/2017 8:01 PM CDT [facility] BLOOD (U) NEGATIVE NEGATIVE 04/07/2017 8:01 PM CDT [facility] SQUAMOUS EPITHELIALS MANY /LPF 04/07/2017 8:01 PM CDT [facility] MUCUS RARE /LPF 04/07/2017 8:01 PM CDT [facility] WBC/HPF 1 <6 /HPF 04/07/2017 8:01 PM CDT [facility] RBC/HPF 3 <6 /HPF 04/07/2017 8:01 PM T [facility] 04/07/2017 8:54 AM CDT 04/07/2017 6:22 PM CDT us Generic Conversion Md JOHNSON URINE ORDERABLES Final Result [facility] [address] [place] [address], [place] [phone] * CULTURE URINE (04/07/2017 8:54 AM CDT) SPEC DESCRIPTION URINE CLEAN CATCH 04/07/2017 5:42 PM CDT [facility] SPECIAL REQUESTS NO SPECIAL REQUEST 04/07/2017 5:42 PM CDT [facility] CULTURE RESULT POLYMICROBIAL GROWTH CONSISTENT WITH NORMAL GENITAL NIKHIL. ?? SUSCEPTIBILITIES NOT ROUTINELY PERFORMED. 04/10/2017 10:09 AM CDT [facility] URINE SPECIMEN OBTAINED BY CLEAN CATCH PROCEDURE / Unknown 04/07/2017 8:54 AM CDT 04/07/2017 6:21 PM CDT us Generic Conversion Md JOHNSON MICROBIOLOGY - GENERAL ORDERABLES Final Result [facility] [address] [place] [address], documented in this encounter Visit Diagnoses Diagnosis Dysuria documented in this encounter Care Teams Recruitment Coordinator Relationship Specialty Start Date End Date Sergo Mackey MD PCP - General 04/07/17 documented as of this encounter
--- OUTSIDE RECORDS SUMMARY | 2024-11-08 06:40 | XMS_ITS | Encounter Summary ---
Author Organization [facility] Address [address] [place] [address]. [place], [place] [id number] [place] [address] Care Team Providers Care Teacher Dramatics Name Role Phone Sergo Mackey MD Primary Care Provider Julian short Encounter Details Date Type Department Care Team (Latest Contact Info) Description 09/06/2018 Scan [facility] Medical Group James Luther MD [...] on filedocumented in this encounter Care Teams Teacher Dramatics Relationship Specialty Start Date End Date Sergo Mackey MD PCP - General 04/07/17 documented as of this encounter
--- OUTSIDE RECORDS SUMMARY | 2024-11-08 06:41 | XMS_ITS | Encounter Summary ---
Author Organization [facility] Address [facility]ly [facility]. [place], [place] [address] [place] [address] Care Team Providers Care Financial Analysis Manager Name Role Phone Sergo Mackey MD Primary Care Provider Sergo Duncan MD Primary Care Provider Julian short Encounter Details Date Type Department Care Team (Latest Contact Info) Description 11/20/2016 Abstract [facility] Social [...] by:Fariba Garvey MA Nov 20 2016 12:01PM ENGLISH LANGUAGE LEARNER TEACHER Author documented in this encounter Plan of Treatment Not on file documented as of this encounter Visit Diagnoses Not on filedocumented in this encounter Care Teams Financial Analysis Manager Relationship Specialty Start Date End Date Sergo Mackey MD PCP - General 04/07/17 Sergo Mackey MD PCP - General 08/05/16 04/06/17 documented as of this encounter
--- OUTSIDE RECORDS SUMMARY | 2024-11-08 06:41 | XMS_ITS | Encounter Summary ---
Author Organization [facility] - [facility] Address Critical access hospital6 [facility] [place] [address] [place] [address] Care Team Providers Care Operating System Programmer Name Role Phone Sergo Mackey MD Primary Care Provider Sergo Duncan MD Primary Care Provider Julian short Encounter Details Date Type Department Care Team (Late st Contact Info) Description 10/20/2016 Abstract [facility] Medical Group Family & Internal Medicine [address] [phone] Sergo Mackey MD Social History Tobacco Use [...] URINE BACTERIA CULTURE Routine 10/20/2016 8:19 AM EQUIPMENT CLEANER AND TESTER documented in this encounter Results * CULTURE URINE (10/20/2016 8:19 AM EQUIPMENT CLEANER AND TESTER) CULTURE URINE Final report [facility] TO EPIC CONVERSION RESULT [facility] T O EPIC CONVERSION Comment: Result Comment: Mixed urogenital chapin Less than 10,000 colonies/mL 10/20/2016 8:19 AM EQUIPMENT CLEANER AND TESTER 10/20/2016 8:19 AM EQUIPMENT CLEANER AND TESTER Narrative [facility] TO EPIC CONVERSION - 10/22/2016 5:12 AM EQUIPMENT CLEANER AND TESTER Result Communication: No patient communication needed at this time us Angeli DUNAWAY MICROBIOLOGY - GENERAL GREGORIO IBARRA Final Result [facility] TO EPIC CONVERSION documented in this encounter Visit Diagnoses Not on filedocumented in this encounter Care Teams Operating System Programmer Relationship Specialty Start Date End Date Sergo Mackey MD PCP - General 04/07/17 Sergo Mackey MD PCP - General 08/05/16 04/06/17 documented as of this encounter
--- OUTSIDE RECORDS SUMMARY | 2024-11-08 06:41 | XMS_ITS | Encounter Summary ---
Author Organization [facility] Address [address] [place] [address]. [place], [place] [address] [place] [address] Care Team Providers Care Drapery Head Former Name Role Phone Sergo Mackey MD Primary Care Provider Sergo Duncan MD Primary Care Provider Julian short Encounter Details Date Type Department Care Team (Latest Contact Info) Description 10/14/2016 Abstract [facility] Medical Group [...] on filedocumented in this encounter Care Teams Drapery Head Former Relationship Specialty Start Date End Date Sergo Mackey MD PCP - General 04/07/17 Sergo Mackey MD PCP - General 08/05/16 04/06/17 documented as of this encounter
--- OUTSIDE RECORDS SUMMARY | 2024-11-08 06:41 | XMS_ITS | Encounter Summary ---
Author Organization [facility] Address [address] [place] [address]. [place], [place] [address] [place] [address] Care Team Providers Care Tip Cutter Name Role Phone Sergo Mackey MD Primary Care Provider Sergo Duncan MD Primary Care Provider Julian short Encounter Details Date Type Department Care Team (Latest Contact Info) Description 03/17/2017 Abstract [facility] Medical Group Sergo Mackey MD Social [...] on filedocumented in this encounter Care Teams Tip Cutter Relationship Specialty Start Date End Date Sergo Mackey MD PCP - General 04/07/17 Sergo Mackey MD PCP - General 08/05/16 04/06/17 documented as of this encounter
--- OUTSIDE RECORDS SUMMARY | 2024-11-08 06:41 | XMS_ITS | Encounter Summary ---
Author Organization [facility] Address [facility]. [place], [place] [address] [place] [address] Care Team Providers Care Organizational Development Consultant Name Role Phone Sergo Mackey MD Primary Care Provider Sergo Duncan MD Primary Care Provider Julian short Encounter Details Date Type Department Care Team (Latest Contact Info) Description 02/15/2017 Abstract [facility] Medical Group , James Pineda MD [...] Task Name: Medical Complaint Callback Assigned To: [facility] Narendra Regarding Patient: Alia Fabian, Status: [...] her other us was normal...please advise. cb#: [phone] Sergo Mackey - 15 Feb 2017 4:36 PM TASK REASSIGNED: Previously Assigned To Serog Mackey My best guess is that the [...] W; Status:Need Information - Financial Authorization; Requested for:[id number]; Perform:Other Radiology; Due:[id number]; Last Updated By:Elsa Rivera; 02/15/2017 4:47:11 PM;Ordered; For:Abnormal ultrasound of abdomen; Ordered By:Sergo Mackey; Patient prefers [facility], liver stenosis found on US with urology Signatures Electronically signed by : Elsa Rivera, ; Feb 15 2017 4:47PM TUGBOAT OPERATOR (Author) * Rani Reardon MD - 02/15/2017 2:43 PM CDT Message Message: Patient was called and notified of her kidney u/s. Patient will notify her primary of the result of the liver steatosis. Signatures Electronically signed by : Rani Reardon, ; Feb 15 2017 2:45PM TUGBOAT OPERATOR (Author) documented in this encounter Plan of Treatment Not on file documented as of this encounter Visit Diagnoses Not on filedocumented in this encounter Care Teams Organizational Development Consultant Relationship Specialty Start Date End Date Sergo Mackey MD PCP - General 04/07/17 Sergo Mackey MD PCP - General 08/05/16 04/06/17 documented as of this encounter
--- OUTSIDE RECORDS SUMMARY | 2024-11-08 06:41 | XMS_ITS | Encounter Summary ---
Author Organization [facility] Address [facility] [place] [address] [place] [address] Care Team Providers Care Inventory Control/Shipping Receiving Name Role Phone Sergo Mackey MD Primary Care Provider Sergo Duncan MD Primary Care Provider Julian short Encounter Details Date Type Department Care Team (Late st Contact Info) Description 09/10/2016 Abstract [facility] Medical Group Family & Internal Medicine [address] [phone] Sergo Mackey MD Social History Tobacco Use [...] Comments Blood Pressure 118/78 09/10/2016 3:03 PM DIE MAKER TRIM Pulse 86 09/10/2016 3:03 PM DIE MAKER TRIM Temperature - - Respiratory Rate - - Oxygen Saturation - - Inhaled Oxygen Concentration - - Weight 121.2 kg (267 lb 4 oz) 09/10/2016 3:03 PM DIE MAKER TRIM Height 172.7 cm (5' 8 ) 09/10/2016 3:03 PM DIE MAKER TRIM Body Mass Index 40.64 09/10/2016 3:03 PM DIE MAKER TRIM documented in this encounter Progress Notes * [...] her knee locks several times. She takes htwk-zld-[id number] Tylenol and this seems to be helpful. She was hospitalized back in July at [facility] for mental illness. She is trying to find to a psychiatrist that will accept her insurance. [place] [facility] [place] available if needed. [...] twice daily; Therapy: 13Aug2016 to (Evaluate:12Sep2016); Last Rx:[id number] Ordered Rx By: Nellie Moy; Dispense: 30 Days ; #:60 Capsule; Refill: 0; For: Abdominal cramping, generalized; JULIANA = N; Print Rx 2. Fluconazole 150 MG Oral Tablet; TAKE 1 TABLET Once PRN onset of symptoms may repeat dose in 72 hours for continued symptoms; Therapy: 05Aug2016 to (Evaluate:07Aug2016) Requested for: 05Aug2016; Last Rx:[id number] Ordered Rx By: Nellie Moy; Dispense: 2 Days ; #:2 Tablet; Refill: 0; For: Antibiotic-induced yeast infection; JULIANA = N; Verified Transmission to [facility]; Last Updated By: [employer] 08/05/2016 11:47:13 AM 3. Metoprolol Tartrate 25 MG Oral Tablet; TAKE 1 TABLET TWICE DAILY; Therapy: 05Aug2016 to (Evaluate:[id number]) Requested for: 13Aug2016; Last Rx:[id number] Ordered Rx By: Nellie Moy; Dispense: 30 Days ; #:60 Tablet; Refill: 5; For: Palpitations; JULIANA = N; Verified Transmission to [facility]; Last Updated By: [employer] 08/13/2016 3:19:40 PM Allergies 1. 12 Hour [...] Mackey Performed: Due: 24Sep2016; Last Updated By: aYsmine Fitch; 09/11/2016 3:37:[address] [place] Signatures Electronically signed by : Sergo Mackey M.D.; Sep 13 2016 2:48PM DIE MAKER TRIM (Author) documented in this encounter Plan of Treatment Not on file documented as of this encounter Visit Diagnoses Not on filedocumented in this encounter Care Teams Inventory Control/Shipping Receiving Relationship Specialty Start Date End Date Sergo Mackey MD PCP - General 04/07/17 Sergo Mackey MD PCP - General 08/05/16 04/06/17 documented as of this encounter
--- OUTSIDE RECORDS SUMMARY | 2024-11-08 06:41 | XMS_ITS | Encounter Summary ---
Author Organization [facility] Address [address] [place] [address]. [place], [place] [address] [place] [address] Care Team Providers Care Scientific Technical Writer Name Role Phone Sergo Mackey MD Primary Care Provider Sergo Duncan MD Primary Care Provider Julian short Encounter Details Date Type Department Care Team (Latest Contact Info) Description 02/18/2017 Abstract [facility] Medical Group Social History Tobacco [...] on filedocumented in this encounter Care Teams Scientific Technical Writer Relationship Specialty Start Date End Date Sergo Mackey MD PCP - General 04/07/17 Sergo Mackey MD PCP - General 08/05/16 04/06/17 documented as of this encounter
--- OUTSIDE RECORDS SUMMARY | 2024-11-08 06:41 | XMS_ITS | Encounter Summary ---
Author Organization [facility] Address [address] [place] [address]. [place] [address] [place] [address] Care Team Providers Care Roof Truss Machine Tender Name Role Phone Sergo Mackey MD Primary Care Provider Sergo Duncan MD Primary Care Provider Julian short Encounter Details Date Type Department Care Team (Latest Contact Info) Description 12/14/2016 Abstract [facility] Medical Group [...] -елена Verified Results QU-CELIAC DISEASE COMPREHENSIVE PANEL [id number] 10:52AM Sergo Mackey Test Name Result Flag [...] A 171 mg/dL 81-463 Test Performed at: [facility]/[address] SHARI ODOM MD,PHD QU-COMPREHENSIVE METABOLIC PANEL 09365 [id number] 10:52AM Sergo Mackey Test Name Result Flag Reference GLUCOSE 99 mg/dL 65-99 Fasting reference interval UREA NITROGEN (BUN) 9 mg/dL 7-25 CREATININE 0.59 mg/dL 0.50-1.10 eGFR NON-AFR. HUNGARIAN 128 > OR = 60 UNITS: mL/min/1.73m2 [...] ALT 16 U/L 6-29 Test Performed at: [facility] [address] [place] [address] KALI HENDRICKS DO,MPH QU-CBC ( INCLUDES DIFF/PLT ) 6399 [id number] 10:52AM Sergo Mackey Test Name Result Flag Reference WHITE BLOOD CELL COUNT 7.4 3.8-10.8 UNITS: Thousand/uL RED BLOOD CELL COUNT 4.76 Million/uL 3.80-5.10 HEMOGLOBIN 13.7 g/dL 11.7-15.5 HEMATOCRIT 41.4 % 35.0-45.0 MCV 86.8 fL 80.0-100.0 MCH 28.7 pg 27.0-33.0 MCHC 33.0 g/dL 32.0-36.0 RDW 13.2 % 11.0-15.0 PLATELET COUNT 313 140-400 UNITS: Thousand/uL MPV 8.1 fL 7.5-12.5 ABSOLUTE NEUTROPHILS 4721 cells/uL 1804-2333 ABSOLUTE LYMPHOCYTES 2220 cells/uL 850-3900 ABSOLUTE MONOCYTES 281 cells/uL 200-950 ABSOLUTE EOSINOPHILS 148 cells/uL 15-500 ABSOLUTE BASOPHILS 30 cells/uL 0-200 NEUTROPHILS 63.8 % LYMPHOCYTES 30.0 % MONOCYTES 3.8 % EOSINOPHILS 2.0 % BASOPHILS 0.4 % REPORT COMMENT: NO DRAW FEE 2ND ORDER,PT REFUSED SIMILAR TESTING [id number] REQ FASTING:YES PATIENT REFUSED SOME TESTING; PATIENT ENCOURAGED Test Performed at: [facility] [address] [place] [address] KALI HENDRICKS DO,MPH Discussion/Summary Labs all good/normal including screening for celiac disease. Signatures Electronically signed by : Eloisa Wolfe R.N.; Dec 14 2016 1:17PM MACHINE FORMER (Author) documented in this encounter Plan of Treatment Not on file documented as of this encounter Visit Diagnoses Not on filedocumented in this encounter Care Teams Roof Truss Machine Tender Relationship Specialty Start Date End Date Sergo Mackey MD PCP - General 04/07/17 Sergo Mackey MD PCP - General 08/05/16 04/06/17 documented as of this encounter
--- OUTSIDE RECORDS SUMMARY | 2024-11-08 06:41 | XMS_ITS | Encounter Summary ---
Author Organization [facility] - [facility] Address On license of [facility]6 [facility]. [place], [place] [address] [place] [address] Care Team Providers Care Court Bailiff Name Role Phone Sergo Mackey MD Primary Care Provider Sergo Duncan MD Primary Care Provider Sergo Duncan MD Primary Care Provider Sergo Duncan MD Primary Care Provider Julian labSergo Stratton MD Primary Care Provider [facility] Encounter Details Date Type Department Care Team (Latest Contact Info) Description 07/03/2016 Abstract [facility] Medical Group [...] on filedocumented in this encounter Care Teams Court Bailiff Relationship Specialty Start Date End Date Sergo Mackey MD PCP - General 04/07/17 Sergo Mackey MD PCP - General 08/05/16 04/06/17 Sergo Mackey MD PCP - General 07/16/16 08/04/16 Sergo Mackey MD PCP - General 07/14/16 07/15/16 Sergo Mackey MD PCP - General 06/16/16 07/13/16 documented as of this encounter
--- OUTSIDE RECORDS SUMMARY | 2024-11-08 06:41 | XMS_ITS | Encounter Summary ---
Author Organization [facility] Address [address] [place] [address]. [place], [place] [address] [place] [address] Care Team Providers Care Insole Cementer Name Role Phone Sergo Mackey MD Primary Care Provider Sergo Duncan MD Primary Care Provider Julian short Encounter Details Date Type Department Care Team (Latest Contact Info) Description 12/08/2016 Abstract [facility] Medical Group Sergo Mackey MD Social History [...] DISEASE COMP PANEL Routine 12/08/2016 10:52 AM PROTOTYPE MODEL MAKER COMPREHENSIVE METABOLIC PANEL Routine 12/08/2016 10:52 AM PROTOTYPE MODEL MAKER CBC W/DIFF AUTOMATED Routine 12/08/2016 10:52 AM PROTOTYPE MODEL MAKER documented in this encounter Results * CELIAC DISEASE COMP PANEL (QST) (12/08/2016 10:52 AM PROTOTYPE MODEL MAKER) INTERPRETATION see note [facility] OUP TO EPIC [...] CONVERSION Comment: Result Comment: Test Performed at: [facility]/[address] ? SHARI ODOM MD,PHD 12/08/2016 10:5 2 AM PROTOTYPE MODEL MAKER 12/08/2016 10:52 AM PROTOTYPE MODEL MAKER Narrative [facility] TO EPIC CONVERSION - 12/08/2016 10:58 AM PROTOTYPE MODEL MAKER Result Communication: No patient communication needed at this time Srego Mackey MD LABORATORY Final Result [facility] TO EPIC CONVERSION * COMPREHENSIVE METABOLIC PANEL (12/08/2016 10:52 AM PROTOTYPE MODEL MAKER) GLUCOSE 99 65 - 99 mg/dL [facility] [...] CONVERSION Comment: Result Comment: Test Performed at: [facility] [address] [place] [address] ??[phone] ? KALI HENDRICKS DO,MPH 12/08/2016 10:5 2 AM PROTOTYPE MODEL MAKER 12/08/2016 10:52 AM PROTOTYPE MODEL MAKER Narrative [facility] TO EPIC CONVERSION - 12/08/2016 10:58 AM PROTOTYPE MODEL MAKER Result Communication: No patient communication needed at this time Sergo Mackey MD LABORATORY Final Result [facility] TO EPIC CONVERSION * CBC W/DIFF AUTOMATED (12/08/2016 10:52 AM PROTOTYPE MODEL MAKER) Pathologist [facility] WBC 7.4 3.8 - 10.8 [facility] TO [...] DRAW FEE 2ND ORDER,PT REFUSED SIMILAR TESTING [id number] REQ FASTING:YES PATIENT REFUSED SOME TESTING; PATIENT ENCOURAGED Test Performed at: [facility] [address] ??[id number] ? KALI HENDRICKS DO,MPH 12/08/2016 10:5 2 AM PROTOTYPE MODEL MAKER 12/08/2016 10:52 AM PROTOTYPE MODEL MAKER Narrative [facility] TO EPIC CONVERSION - 12/08/2016 10:58 AM PROTOTYPE MODEL MAKER Result Communication: Call patient with results Sergo Mackey MD LABORATORY Final Result [facility] TO EPIC CONVERSION documented in this encounter Visit Diagnoses Not on filedocumented in this encounter Care Teams Insole Cementer Relationship Specialty Start Date End Date Sergo Mackey MD PCP - General 04/07/17 Sergo Mackey MD PCP - General 08/05/16 04/06/17 documented as of this encounter
--- OUTSIDE RECORDS SUMMARY | 2024-11-08 06:41 | XMS_ITS | Encounter Summary ---
Author Organization [facility] Address [facility] [place] [address] [place] [address] Care Team Providers Care Nc Machinist Name Role Phone Sergo Mackey MD Primary Care Provider Sergo Duncan MD Primary Care Provider Julian short Encounter Details Date Type Department Care Team (Late st Contact Info) Description 12/03/2016 Abstract [facility] Medical Group Family & Internal Medicine [address] [phone] Sergo Mackey MD Social History Tobacco Use [...] Comments Blood Pressure 126/80 12/03/2016 3:06 PM BRIM IRONER HAND Pulse 112 12/03/2016 3:06 PM BRIM IRONER HAND Temperature - - Respiratory Rate - - Oxygen Saturation - - Inhaled Oxygen Concentration - - Weight 127.9 kg (282 lb) 12/03/2016 3:06 PM BRIM IRONER HAND Height 172.7 cm (5' 8 ) 12/03/2016 3:06 PM BRIM IRONER HAND Body Mass Index 42.88 12/03/2016 3:06 PM BRIM IRONER HAND documented in this encounter Progress Notes * [...] PCOS and is following up with her PROVIDER RELATIONS MANAGER. She is trying to get a second [...] BY MOUTH TWICE DAILY; Therapy: 13Aug2016 to (Evaluate:[id number]) Requested for: 21Sep2016; Last Rx:21Sep2016 Ordered Rx By: Nellie Moy; Dispense: 30 Days ; #:60 Capsule; Refill: 0; For: Abdominal cramping, generalized; JULIANA = N; Print Rx; Last Updated By: [employer]; 09/21/2016 8:25:38 AM 2. ClonazePAM 1 MG Oral Tablet; TAKE 1 TABLET BY MOUTH THREE TIMES DAILY NEEDED; Therapy: 10Sep2016 to (Evaluate:26Nov2016) Requested for: 27Oct2016; Last Rx:[id number] Ordered Rx By: Sergo Mackey; Dispense: 30 Days ; #:90 TAB; Refill: 0; For: Bipolar mood disorder; JULIANA =N; Print Rx; Last Updated By: [employer]; 12/03/2016 3:33:49 PM 3. Metoprolol Tartrate 25 MG Oral Tablet; TAKE 1 TABLET TWICE DAILY; Therapy: 05Aug2016 to (Evaluate:[id number]) Requested for: 13Aug2016; Last Rx:13Aug2016 Ordered Rx By: Nellie Moy; Dispense: 30 Days ; #:60 Tablet; Refill: 5; For: Palpitations; JULIANA = N; Verified Transmission to [facility] [address]; Last Updated By: [employer]; 08/13/2016 3:19:40 PM Allergies 1. 12 Hour Decongestant TB12 Recorded By: Shirley Zhang; 04/10/2014 3:10:36 PM Vitals Recorded: [id number] 03:06PM Heart Rate 112 Respiration 16 Systolic [...] Status:Hold For - Manual Activation; Requested for:03Dec2016; Perform:[facility]; Due:02Jan2017; Last Updated By:Fariba Garvey; 12/03/2016 3:28:37 PM;Ordered; For:Chronic diarrhea, Continuous RUQ abdominal pain, Hyperglycemia, PCOS (polycystic ovarian syndrome); Ordered By:Sergo Mackey; 4. Celiac Ab Evaluation; Status:Hold For - Manual Activation; Requested for:03Dec2016; Perform:[facility]; Due:02Jan2017; Last Updated By:Fariba Garvey; 12/03/2016 3:28:37 PM;Ordered; For:Chronic diarrhea, Continuous RUQ abdominal pain, Hyperglycemia, PCOS (polycystic ovarian syndrome); Ordered By:Sergo Mackey; 5. Compr Metabolic Prof ( CMP ); Status:Hold For - Manual Activation; Requested for:03Dec2016; Perform:[facility]; Due:02Jan2017; Last Updated By:Fariba Garvey; 12/03/2016 3:28:37 PM;Ordered; For:Chronic diarrhea, Continuous RUQ abdominal pain, Hyperglycemia, PCOS (polycystic ovarian syndrome); Ordered By:Sergo Mackey; 6. Free T4 ( Thyroxine ); Status:Hold For - Manual Activation; Requested for:03Dec2016; Perform:[facility]; Due:02Jan2017; Last Updated By:Fariba Garvey; 12/03/2016 3:28:37 PM;Ordered; For:Chronic diarrhea, Continuous RUQ abdominal pain, Hyperglycemia, PCOS (polycystic ovarian syndrome); Ordered By:Sergo Mackey; 7. Thyroid Stim Hormone ( TSH ); Status:Hold For - Manual Activation; Requested for:03Dec2016; Perform:[facility]; Due:02Jan2017; Last Updated By:Fariba Garvey; 12/03/2016 3:28:37 PM;Ordered; For:Chronic diarrhea, Continuous RUQ abdominal pain, Hyperglycemia, PCOS (polycystic ovarian syndrome); Ordered By:Sergo Mackey; F/U with Chassis Mechanic as planned. US ABDOMEN LIMITED RUQ; Status:Hold [...] Sergo Mackey M.D.; Dec 07 2016 2:42AM BRIM IRONER HAND (Author) documented in this encounter Plan of Treatment Not on file documented as of this encounter Visit Diagnoses Not on filedocumented in this encounter Care Teams Nc Machinist Relationship Specialty Start Date End Date Sergo Mackey MD PCP - General 04/07/17 Sergo Mackey MD PCP - General 08/05/16 04/06/17 documented as of this encounter
--- OUTSIDE RECORDS SUMMARY | 2024-11-08 06:41 | XMS_ITS | Encounter Summary ---
Author Organization [facility] Address [address] [place] [address]. [place] [address] [place] [address] Care Team Providers Care Competitive Intelligence Analyst Name Role Phone Sergo Mackey MD Primary Care Provider Sergo Duncan MD Primary Care Provider Julian short Encounter Details Date Type Department Care Team (Late st Contact Info) Description 08/13/2016 Abstract [facility] Medical Group Family & Internal Medicine [id number] [place] [address] Nellie Moy FNP [address] [place] [address] Social History Tobacco Use Types Packs/Day Years [...] History of Present Illness HPI Free Text: Alia is here to f/u on her lab [...] or a stroke while she was in [facility] for mental illness. She brought her blood [...] 05Aug2016 to (Evaluate:07Aug2016) Requested for: 05Aug2016; Last Rx:[id number] Ordered 2. Metoprolol Tartrate 25 MG Oral Tablet; TAKE 1 TABLET TWICE DAILY; Therapy: 05Aug2016 to (Evaluate:01Feb2017); Last Rx:[id number] Ordered Allergies 1. 12 Hour Decongestant TB12 [...] Palpitations; JULIANA = N; Verified Transmission to [facility] [address]; Last Updated By: Dayron Rae; 08/13/2016 3:19:40 PM Signatures Electronically signed by : Nellie Moy, ; Aug 13 2016 5:15PM PRECISION ASSEMBLY INSPECTOR (Author) Electronically signed by : Sander Stewart M.D.; Aug 23 2016 9:18PM PRECISION ASSEMBLY INSPECTOR (Author) documented in this encounter Plan of Treatment Not on file documented as of this encounter Visit Diagnoses Not on filedocumented in this encounter Care Teams Competitive Intelligence Analyst Relationship Specialty Start Date End Date Sergo Mackey MD PCP - General 04/07/17 Sergo Mackey MD PCP - General 08/05/16 04/06/17 documented as of this encounter
--- OUTSIDE RECORDS SUMMARY | 2024-11-08 06:41 | XMS_ITS | Encounter Summary ---
Author Organization [facility] Address [facility] [place] [address] [place] [address] Care Team Providers Care Keno Attendant Name Role Phone Sergo Mackey MD Primary Care Provider Sergo Duncan MD Primary Care Provider Julian short Encounter Details Date Type Department Care Team (Late st Contact Info) Description 10/06/2016 Abstract [facility] Medical Group Family & Internal Medicine [address] [place] [address] Nellie Moy FNP [address] [place] [address] Social History Tobacco Use Types Packs/Day Years [...] on filedocumented in this encounter Care Teams Keno Attendant Relationship Specialty Start Date End Date Sergo Mackey MD PCP - General 04/07/17 Sergo Mackey MD PCP - General 08/05/16 04/06/17 documented as of this encounter
--- OUTSIDE RECORDS SUMMARY | 2024-11-08 06:41 | XMS_ITS | Encounter Summary ---
Author Organization [facility] - [facility] Address [address] [place] [address]. [place] [address] [place] [address] Care Team Providers Care Wine Bottle Inspector Name Role Phone Sergo Mackey MD Primary Care Provider Sergo Duncan MD Primary Care Provider Julian short Encounter Details Date Type Department Care Team (Late st Contact Info) Description 10/19/2016 Abstract [facility] Medical [facility]pecialty Care - [facility] [address] [facility], [address] [place] [address] Angeli Wu APNP [address] [address] Social History Tobacco Use Types [...] Comments Blood Pressure 138/78 10/19/2016 3:24 PM FINANCE BROKER Pulse - - Temperature - - Respiratory Rate - - Oxygen Saturation - - Inhaled Oxygen Concentration - - Weight 121.1 kg (267 lb) 10/19/2016 3:24 PM FINANCE BROKER Height 172.7 cm (5' 8 ) 10/19/2016 3:24 PM FINANCE BROKER Body Mass Index 40.6 10/19/2016 3:24 PM FINANCE BROKER documented in this encounter Progress Notes * [...] BY MOUTH TWICE DAILY; Therapy: 13Aug2016 to (Evaluate:[id number]) Requested for: 21Sep2016; Last Rx:21Sep2016 Ordered Rx By: Nellie Moy; Dispense: 30 Days ; #:60 Capsule; Refill: 0; For: Abdominal cramping, generalized; JULIANA = N; Print Rx; Last Updated By: SureWaves; 09/21/2016 8:25:38 AM 2. ClonazePAM 1 MG Oral Tablet; Take one tablet three times daily as needed prn; Therapy: 10Sep2016 to (Evaluate:[id number]); Last Rx:10Sep2016 Ordered Rx By: Sergo Mackey; [...] infection; JULIANA = N; Verified Transmission to Bottle 94323; Last Updated By: SureWaves; 08/05/2016 11:47:13 AM 4. Metoprolol Tartrate 25 MG Oral Tablet; TAKE 1 TABLET TWICE DAILY; Therapy: 05Aug2016 to (Evaluate:[id number]) Requested for: 13Aug2016; Last Rx:13Aug2016 Ordered Rx By: Nellie Moy; Dispense: 30 Days ; #:60 Tablet; Refill: 5; For: Palpitations; JULIANA = N; Verified Transmission to Bottle [address]04[address]; Last Updated By: Dayron Rae; 08/13/2016 3:19:40 PM 5. Propranolol HCl - 20 MG Oral Tablet; TK 1 T PO BID; Therapy: [id number] to Recorded Rx By: JESSICA BOWIE; Dispense: [...] Normal. Results/Data *Urine dip auto In Office [id number] 03:25PM Angeli Wu Test Name Result Flag Reference Color Yellow Clarity Clear Glucose Negative Bilirubin Negative Ketones Negative Specific [place] 1.015 Blood 3+(Large) pH 6.5 5.0 - [...] Angeli Wu APN; Oct 19 2016 3:45PM FINANCE BROKER (Author) documented in this encounter Plan of Treatment Not on file documented as of this encounter Procedures Procedure Name Priority Date/Time Associated Diagnosis Comments URINALYSIS AUTO DIP Routine 10/19/2016 3 :25 PM FINANCE BROKER documented in this encounter Results * URINALYSIS AUTO DIP (10/19/2016 3:25 PM FINANCE BROKER) COLOR (U) Yellow [facility] T O EPIC [...] OUP TO EPIC CONVERSION 10/19/2016 3:25 PM FINANCE BROKER 10/19/2016 3:25 PM FINANCE BROKER us Angeli Wu APNP URINE ORDERABLES Final Resu lt [facility] TO EPIC CONVERSION documented in this encounter Visit Diagnoses Not on filedocumented in this encounter Care Teams Wine Bottle Inspector Relationship Specialty Start Date End Date Sergo Mackey MD PCP - General 04/07/17 Sergo Mackey MD PCP - General 08/05/16 04/06/17 documented as of this encounter
--- OUTSIDE RECORDS SUMMARY | 2024-11-08 06:41 | XMS_ITS | Encounter Summary ---
Author Organization [facility] - [facility] Address [facility]. [place], [place] [address] [place] [address] Care Team Providers Care Diet Kitchen Cook Name Role Phone Sergo Mackey MD Primary Care Provider Sergo Duncan MD Primary Care Provider Sergo Duncan MD Primary Care Provider Sergo Duncan MD Primary Care Provider Sergo Duncan MD Primary Care Provider Julian short Encounter Details Date Type Department Care Team (Latest Contact Info) Description 06/19/2016 Abstract [facility] Medical [...] comes in//af Verified Results CBC W Differential [id number] 03:16PM Sergo Mackey Test Name Result Flag [...] 0.0-1.0 Compr Metabolic Prof ( CMP ) [id number] 03:16PM Sergo Mackey Test Name Result Flag [...] mL/min/1.73m'2 Thyroid Stim Hormone ( TSH ) [id number] 03:16PM Sergo Mackey Test Name Result Flag Reference Thyroid Stim Hormone (TSH) 1.56 mIU/mL 0.27-4.20 Discussion/Summary Labs all good/normal. Was she able to get a list of meds she had tried in the past for her moods? Signatures Electronically signed by : Elsa Rivera, ; Jun 19 2016 12:12PM AUDIO ENGINEER (Author) documented in this encounter Plan of Treatment Not on file documented as of this encounter Visit Diagnoses Not on filedocumented in this encounter Care Teams Diet Kitchen Cook Relationship Specialty Start Date End Date Sergo Mackey MD PCP - General 04/07/17 Sergo Mackey MD PCP - General 08/05/16 04/06/17 Sergo Mackey MD PCP - General 07/16/16 08/04/16 Sergo Mackey MD PCP - General 07/14/16 07/15/16 Sergo Mackey MD PCP - General 06/16/16 07/13/16 documented as of this encounter
--- OUTSIDE RECORDS SUMMARY | 2024-11-08 06:41 | XMS_ITS | Encounter Summary ---
Author Organization [facility] Address [address] [place] [address]. [place], [place] [address] [place] [address] Care Team Providers Care Cloth Edge Singer Name Role Phone Sergo Mackey MD Primary Care Provider Sergo Duncan MD Primary Care Provider Julian short Encounter Details Date Type Department Care Team (Latest Contact Info) Description 08/10/2016 Abstract [facility] Medical Group Social History Tobacco Use [...] on filedocumented in this encounter Care Teams Cloth Edge Singer Relationship Specialty Start Date End Date Sergo Mackey MD PCP - General 04/07/17 Sergo Mackey MD PCP - General 08/05/16 04/06/17 documented as of this encounter
--- OUTSIDE RECORDS SUMMARY | 2024-11-08 06:41 | XMS_ITS | Encounter Summary ---
Author Organization [facility] Address [address] [place] [address]. [place], [place] [address] [place] [address] Care Team Providers Care Casino Shift Manager Name Role Phone Sergo Mackey MD Primary Care Provider Sergo Duncan MD Primary Care Provider Sergo Duncan MD Primary Care Provider Sergo Duncan MD Primary Care Provider Julian short Encounter Details Date Type Department Care Team (Late st Contact Info) Description 07/14/2016 Abstract [facility] Medical Group Family & Internal Medicine [address] [address] Sergo Mackey MD Social History [...] Mackey Task Name: Follow Up Assigned To: [facility] Narendra Regarding Patient: Alia Fabian, Status: [...] 1:51 PM TASK REASSIGNED: Previously Assigned To [facility] Sergo Johnston - 10 Jul 2016 [...] Fariba Garvey MA; Jul 14 2016 4:15PM GOLF CART ASSEMBLER (Author) * Sergo Mackey MD - 07/14/2016 1:15 PM CDT Reason For Visit Reason For Visit: Acute Visit Chief Complaint Patient c/o rapid and slow pulse, flushing, hot flashes, cold and clammy hands and feet, sharp dullpains in her head, frequent urination and fluctuating blood pressure. Was seen at [facility] for UTI 3 days ago. History of [...] reports she ended up going to the [facility] 3 days ago complaining of flushing, [...] DAILY NEEDED ; Therapy: 10Apr2014 to (Last Rx:[id number]) Ordered Rx By: Sergo Mackey; Dispense: 0 [...] Glucose Negative Bilirubin Negative Ketones Negative Specific [place] 1.015 Blood Negative pH 6.5 Protein Negative Urobilinogen 0.2 E.U./dL Nitrites neg Leukocytes Trace Assessment 1. Urinary frequency (788.41) (R35.0) 2. Hypertension (401.9) (I10) 3. Flushing (782.62) (R23.2) 4. Chronic diarrhea (787.91) (K52.9) 5. Palpitations (785.1) (R00.2) Plan Abnormal urine finding, Leukocytes in urine 1. Urine Culture; Status:In Progress - Specimen/Data Collected; Done: 15Jul2016 Perform:[facility]; Due:14Aug2016; Last Updated By:Angela Lal; 07/14/2016 2:48:48 PM;Ordered; For:Abnormal urine finding, Leukocytes in urine; Ordered By:Sergo Mackey; Source: : Clean Catch Chronic diarrhea, Flushing, Palpitations, Urinary frequency 2. Urine 5 - HIAA 24 Hr; Status:Hold For - Manual Activation; Requested for:14Jul2016; Perform:[facility]; Due:13Aug2016; Last Updated By:Angela Lal; 07/14/2016 2:38:00 PM;Ordered; For:Chronic diarrhea, Flushing, Palpitations, Urinary frequency; Ordered By:Sergo Mackey; 3. Urine Fract Catecholamine; Status:Hold For - Manual Activation; Requested for:[id number]; Perform:. [facility]; Due:13Aug2016; Last Updated By:Angela Lal; 07/14/2016 2:38:00 PM;Ordered; For:Chronic diarrhea, Flushing, Palpitations, Urinary frequency; Ordered By:Sergo Mackey; 4. Urine Metanephrines 24 Hr; Status:Hold For - Manual Activation; Requested for:[id number]; Perform:. [facility]; Due:13Aug2016; Last Updated By:Angela Lal; 07/14/2016 2:38:00 PM;Ordered; For:Chronic diarrhea, Flushing, Palpitations, Urinary frequency; Ordered By:Sergo Mackey; I will review her pharmacy records and look to start a new medicine for her mood disorder. Signatures Electronically signed by : Sergo Mackey M.D.; Jul 15 2016 8:57PM GOLF CART ASSEMBLER (Author) documented in this encounter Plan of [...] is recommended for confirmation. Test Performed by [email or web address], [address] [place] [address] Aaron Kennedy M.D., Ph.D., Director of Laboratories , CLIA [id number] VOLUME (U) 2525 ML [facility] TO EPIC [...] 480 Unit: mcg/24 h Test Performed by [email or web address], [employer], [address] [place] [address] Aaron Kennedy M.D., Ph.D., Director of Laboratories , CLIA [id number] EPINEPHRINE (U) REPORT Results are below the [...] URINE ORDERABLES Final Result Performing Organization Address City/[facility] Co de Phone Number [...] URINE ORDERABLES Final Result Performing Organization Address [facility] de Phone Number [facility] TO [...] ORDERA BLES Final Result Performing Organization Address [facility] de Phone Number [facility] TO EPIC CONVERSION documented in this encounter Visit Diagnoses Not on filedocumented in this encounter Care Teams Casino Shift Manager Relationship Specialty Start Date End Date Sergo Mackey MD PCP - General 04/07/17 Sergo Mackey MD PCP - General 08/05/16 04/06/17 Sergo Mackey MD PCP - General 07/16/16 08/04/16 Sergo Mackey MD PCP - General 07/14/16 07/15/16 documented as of this encounter
--- OUTSIDE RECORDS SUMMARY | 2024-11-08 06:41 | XMS_ITS | Encounter Summary ---
Author Organization [facility] Address [address] [place] [address]. [place] [address] [place] [address] Care Team Providers Care Oil Changer Name Role Phone Sergo Mackey MD Primary Care Provider Sergo Duncan MD Primary Care Provider Sergo Duncan MD Primary Care Provider Julian short Encounter Details Date Type Department Care Team (Late st Contact Info) Description 07/16/2016 Abstract [facility] [place] [address] Sergo Mackey MD Social History [...] (U) 2525 ML 07/17/2016 8:34 AM CDT [facility] METANEPHRINE (U) 24 HR 70 25 - 222 mcg/24 h 07/22/2016 4:46 AM CDT Ton[facility] BEST-CHANTI LLY NORMETANEPHRINE (U) 24 HRS 190 40 - 412 mcg/24 h 07/22/2016 4:46 AM CDT [facility] MARY TRUJILLORAMON ANA METANEPHRINES TOTAL (U) 260 94 - 604 mcg/24 h 07/22/2016 4:46 AM CDT Tonara LELE PEREZ Comment: A four fold elevation of urinary normetanephrines is extremely likely to be due to a tumor, while a four fold elevation of urinary metanephrines is highly suggestive, but not diagnostic of the tumor. Measurement of plasma Metanephrines and Chromogranin A is recommended for confirmation. Test Performed by [email or web address], [facility] [place], [address] [place] [address] Aaron Kennedy M.D., Ph.D., Director of Laboratories , [place] [id number] 07/16/2016 3:35 PM CDT 07/17/2016 8:33 AM CDT us Generic Conversion Md JOHNSON URINE ORDERABLES Final Result Performing Organization Address City/[facility]/ZIP Co de Phone Number Tonara CASSANDRACHESTERStar [address] [place] [phone], [place] [phone] [facility] [address] [place] [address], [place] [phone] * 5-HIAA URINE 24 HR (07/16/2016 3:35 PM CDT) VOLUME (U) 2525 ML 07/17/2016 8:33 AM CDT [facility] 5-HIAA 3.3 <=6.0 mg/24 h 07/22/2016 4:46 AM CDT Tonara BESTShannonCHESTER Graves 07/16/2016 3:35 PM CDT 07/17/2016 8:33 AM CDT us Generic Conversion Md JOHNSON URINE ORDERABLES Final Result [facility] [address] [place], [place] , [place] [phone] [facility] [address] [place] [address], [place] [phone] * CATECHOLAMINES URINE 24 HR (07/16/2016 3:35 PM CDT) VOLUME (U) 2525 ML 07/17/2016 8:32 AM CDT [facility] EPINEPHRINE (U) REPORT 6 3:42 AM CDT Tonara BEST-RAMON LLY Comment: Results are below the reportable range for this analyte, which is 2.0 mcg/L. NOREPINEPHRINE (U) 51 15 - 100 mcg/24 h 07/22/2016 3:42 AM CDT Tonara LELE PEREZ CATECHOLAMINE-URIN E TOTAL 51 26 - 121 mcg/24 h 07/22/2016 3:42 AM CDT Tonara LELE PEREZ DOPAMINE (U) 379 52 - 480 mcg/24 h 07/22/2016 3:42 AM CDT Tonara LELE PEREZ Comment: Test Performed by Sandie Zelaya [facility], [address] [place] [address] Aaron Kennedy M.D., Ph.D., Director of Laboratories , [facility] [id number] 07/16/2016 3:35 PM CDT 07/17/2016 8:32 AM CDT us Generic Conversion Md JOHNSON URINE ORDERABLES Final Result Performing Organization Address [facility]/ZIP Co de Phone Number [facility] [address] [place], [place] , [place] [phone] [facility] [address] [place] [address], [place] [phone] documented in this encounter Visit Diagnoses Diagnosis Noninfective gastroenteritis and colitis Other and unspecified noninfectious gastroenteritis and colitis documented in this encounter Care Teams Oil Changer Relationship Specialty Start Date End Date Sergo Mackey MD PCP - General 04/07/17 Sergo Mackey MD PCP - General 08/05/16 04/06/17 Sergo Mackey MD PCP - General 07/16/16 08/04/16 documented as of this encounter
--- OUTSIDE RECORDS SUMMARY | 2024-11-08 06:41 | XMS_ITS | Encounter Summary ---
Author Organization [facility] Address [address] [place] [address]. [place], [place] [address] [place] [address] Care Team Providers Care Impact Hammer Operator Name Role Phone Sergo Mackey MD Primary Care Provider Sergo Duncan MD Primary Care Provider Julian short Encounter Details Date Type Department Care Team (Latest Contact Info) Description 08/14/2016 Abstract [facility] Medical Group Social History Tobacco [...] on filedocumented in this encounter Care Teams Impact Hammer Operator Relationship Specialty Start Date End Date Sergo Mackey MD PCP - General 04/07/17 Sergo Mackey MD PCP - General 08/05/16 04/06/17 documented as of this encounter
--- OUTSIDE RECORDS SUMMARY | 2024-11-08 06:41 | XMS_ITS | Encounter Summary ---
Author Organization [facility] Address [address] [place] [address]. [place], [place] [address] [place] [address] Care Team Providers Care Filter Bed Placer Name Role Phone Sergo Mackey MD Primary Care Provider Sergo Duncan MD Primary Care Provider Julian short Encounter Details Date Type Department Care Team (Latest Contact Info) Description 08/26/2016 Abstract [facility] Medical Group Social History Tobacco [...] on filedocumented in this encounter Care Teams Filter Bed Placer Relationship Specialty Start Date End Date Sergo Mackey MD PCP - General 04/07/17 Sergo Mackey MD PCP - General 08/05/16 04/06/17 documented as of this encounter
--- OUTSIDE RECORDS SUMMARY | 2024-11-08 06:41 | XMS_ITS | Encounter Summary ---
Author Organization [facility] - [facility] Address [facility]. [place], [place] [address] [place] [address] Care Team Providers Care Cashier Name Role Phone Sergo Mackey MD Primary Care Provider Sergo Duncan MD Primary Care Provider Sergo Duncan MD Primary Care Provider Sergo Duncan MD Primary Care Provider Julian labSergo Stratton MD Primary Care Provider [facility] Encounter Details Date Type Department Care Team (Latest Contact Info) Description 06/28/2016 Abstract [facility] Medical Group Social History Tobacco Use Types [...] on filedocumented in this encounter Care Teams Cashier Relationship Specialty Start Date End Date Sergo Mackey MD PCP - General 04/07/17 Sergo Mackey MD PCP - General 08/05/16 04/06/17 Sergo Mackey MD PCP - General 07/16/16 08/04/16 Sergo Mackey MD PCP - General 07/14/16 07/15/16 Sergo Mackey MD PCP - General 06/16/16 07/13/16 documented as of this encounter
--- OUTSIDE RECORDS SUMMARY | 2024-11-08 06:41 | XMS_ITS | Encounter Summary ---
Author Organization [facility] Address [address] [place] [address]. [place] [address] [place] [address] Care Team Providers Care Regulatory Affairs Intern Name Role Phone Sergo Mackey MD Primary Care Provider Sergo Duncan MD Primary Care Provider Sergo Duncan MD Primary Care Provider Sergo Duncan MD Primary Care Provider Sergo Duncan MD Primary Care Provider Julian short Encounter Details Date Type Department Care Team (Late st Contact Info) Description 06/30/2016 Abstract [facility] Medical Group Family & Internal Medicine [address] [address] Sergo Mackey MD Social History [...] Verified Results *Urine dip auto In Office [id number] 02:45PM Sergo Mackey Test Name Result Flag Reference Color Yellow Clarity Clear Glucose Negative Bilirubin Negative Ketones Negative Specific [place] 1.015 Blood Negative pH 5.5 5.0 - [...] Eloisa Wolfe R.N.; Jul 02 2016 9:06AM COURTESY CLERK (Author) * Sergo Mackey MD - 06/30/2016 [...] DAILY NEEDED ; Therapy: 10Apr2014 to (Last Rx:[id number]) Ordered Rx By: Sergo Mackey; Dispense: 0 Days ; #:90 Tablet; Refill: 0; For: Palpitations; JULIANA = N; Print Rx; Last Updated By: Fariba Garvey; 06/16/2016 3:06:43 PM Allergies 1. 12 Hour Decongestant TB12 Recorded By: Shirley Zhang; 04/10/2014 3:10:36 PM Vitals Recorded: [id number] 02:09PM Heart Rate 120 Respiration 18 Systolic [...] Glucose Negative Bilirubin Negative Ketones Negative Specific [place] 1.015 Blood Negative pH 5.5 5.0 - [...] Sergo Mackey M.D.; Jul 02 2016 5:41AM COURTESY CLERK (Author) documented in this encounter Plan of [...] on filedocumented in this encounter Care Teams Regulatory Affairs Intern Relationship Specialty Start Date End Date Sergo Mackey MD PCP - General 04/07/17 Sergo Mackey MD PCP - General 08/05/16 04/06/17 Sergo Mackey MD PCP - General 07/16/16 08/04/16 Sergo Mackey MD PCP - General 07/14/16 07/15/16 Sergo Mackey MD PCP - General 06/16/16 07/13/16 documented as of this encounter
--- OUTSIDE RECORDS SUMMARY | 2024-11-08 06:41 | XMS_ITS | Encounter Summary ---
Author Organization [facility] Address [address] [place] [address]. [place], [place] [address] [place] [address] Care Team Providers Care Wet Process Technician Name Role Phone Sergo Mackey MD Primary Care Provider Sergo Duncan MD Primary Care Provider Julian short Encounter Details Date Type Department Care Team (Latest Contact Info) Description 08/07/2016 Abstract [facility] Medical Group Social [...] filedocumented in this encounter Care Teams Wet Process Technician Relationship Specialty Start Date End Date Sergo Mackey MD PCP - General 04/07/17 Sergo Mackey MD PCP - General 08/05/16 04/06/17 documented as of this encounter
--- OUTSIDE RECORDS SUMMARY | 2024-11-08 06:41 | XMS_ITS | Encounter Summary ---
Author Organization [facility] Address [address] [place] [address]. [place] [address] [place] [address] Care Team Providers Care Supervisor Insulation Name Role Phone Sergo Mackey MD Primary Care Provider Sergo Duncan MD Primary Care Provider Julian short Encounter Details Date Type Department Care Team (Late st Contact Info) Description 08/05/2016 Abstract [facility] [place] [address] Nellie Moy FNP [address] [place] [address] Social History Tobacco Use Types [...] - 99 mg/dL 08/05/2016 8:27 PM CDT [facility] BUN 7(L) 8 - 23 mg/dL 08/05/2016 8:27 PM CDT [facility] CREATININE S/P/B 0.79 0.60 - 1.10 mg/dL 08/05/2016 8:27 PM CDT [facility] SODIUM S/P/B 139 136 - 145 mmol/L 08/05/2016 8:27 PM CDT [facility] POTASSIUM S/P/B 4.4 3.5 - 5.1 mmol/L 08/05/2016 8:27 PM CDT [facility] CHLORIDE S/P/B 99 98 - 107 mmol/L 08/05/2016 8:27 PM CDT [facility] CO2 26 22 - 29 mmol/L 08/05/2016 8:27 PM CDT [facility] BILIRUBIN TOTAL S/P/B 0.6 0.2 - 1.2 mg/dL 08/05/2016 8:27 PM CDT [facility] CALCIUM S/P/B 10.0 8.6 - 10.2 mg/dL 08/05/2016 8:27 PM CDT [facility] ALKALINE PHOSPHATASE S/P/B 60 35 - 104 U/L 08/05/2016 8:27 PM CDT [facility] AST 25 0 - 32 U/L 08/05/2016 8:27 PM CDT [facility] TOTAL PROTEIN S/P/B 7.4 6.4 - 8.3 g/dL 08/05/2016 8:27 PM CDT [facility] ALBUMIN S/P/B 4.6 3.5 - 5.2 g/dL 08/05/2016 8:27 PM CDT [facility] ALT 22 0 - 33 U/L 08/05/2016 8:27 PM T [facility] GLOBULIN 2.8 2.3 - 3.6 g/dL 08/05/2016 8:27 PM CDT [facility] A/G RATIO 1.6 1.0 - 2.0 08/05/2016 8:27 PM CDT [facility] ANION GAP 18 8 - 20 08/05/2016 8:27 PM CDT [facility] EGFR NON-AFR. AMER. >60 >60 mL/min/1.7 3m'2 08/05/2016 8:27 PM CDT [facility] EGFR AFR. AMER. >60 >60 mL/min/1.7 3m'2 08/05/2016 8:27 PM CDT [facility] Comment: NOTE: eGFR is not calculated for patients <18 years of age. This is an estimated GFR (CKD EPI) and should not be used for calculating drug doses. 08/05/2016 1:07 PM CDT 08/05/2016 7:46 PM CDT us Generic Conversion [facility] Final R esult [facility] [address] [id number], [place] [phone] * (ABNORMAL) CBC W/DIFF AUTOMATED (08/05/2016 1:07 PM CDT) WBC 8.0 4.8 - 10.8 X10'3/uL 08/05/2016 8:31 PM CDT [facility] RBC 4.72 4.20 - 5.40 X10'6/uL 08/05/2016 8:31 PM CDT [facility] HGB 13.9 12.0 - 16.0 g/dL 08/05/2016 8:31 PM CDT [facility] HCT 41.9 38.0 - 48.0 % 08/05/2016 8:31 PM CDT [facility] MCV 88.8 81.0 - 99.0 fL 08/05/2016 8:31 PM CDT [facility] MCH 29.4 27.0 - 31.0 pg 08/05/2016 8:31 PM CDT [facility] MCHC 33.2 32.0 - 36.0 g/dL 08/05/2016 8:31 PM CDT [facility] RDW 12.8 11.5 - 14.5 % 08/05/2016 8:31 PM CDT [facility] PLT 342 130 - 400 X10'3/uL 08/05/2016 8:31 PM CDT [facility] MPV 10.4 9.3 - 12.2 fL 08/05/2016 8:31 PM CDT [facility] DIFFERENTIAL TYPE AUTOMATED 08/05/2016 8:31 PM CDT [facility] NEUTROPHILS % 67.0(H) 43.0 - 65.0 % 08/05/2016 8:31 PM CDT [facility] LYMPHOCYTES % 22.6 20.0 - 46.0 % 08/05/2016 8:31 PM CDT [facility] MONOCYTES % 6.6 5.0 - 12.0 % 08/05/2016 8:31 PM CDT [facility] EOSINOPHILS 3.0 1.0 - 3.0 % 08/05/2016 8:31 PM CDT [facility] BASOPHILS 0.6 0.0 - 1.0 % 08/05/2016 8:31 PM CDT [facility] IMMATURE GRANS % 0.2 0.0 - 1.0 % 08/05/2016 8:31 PM CDT [facility] 08/05/2016 1:07 PM CDT 08/05/2016 7:46 PM CDT us Generic Conversion Md [facility] Final R esult [facility] [address] [place] [address], documented in this encounter Visit Diagnoses Diagnosis Vomiting Vomiting alone documented in this encounter Care Teams Supervisor Insulation Relationship Specialty Start Date End Date Sergo Mackey MD PCP - General 04/07/17 Sergo Mackey MD PCP - General 08/05/16 04/06/17 documented as of this encounter
--- OUTSIDE RECORDS SUMMARY | 2024-11-08 06:41 | XMS_ITS | Encounter Summary ---
Author Organization [facility] Address [facility] [place] [address] [place] [address] Care Team Providers Care Dough Brake Machine Operator Name Role Phone Sergo Mackey MD Primary Care Provider Sergo Duncan MD Primary Care Provider Julian short Encounter Details Date Type Department Care Team (Late st Contact Info) Description 03/16/2017 Abstract [facility] Family & Internal Medicine [address] [address] Sergo Mackey MD Social History Tobacco Use [...] labs done back in December with her CARE CONNECTOR. She is interested in doing repeat labs. She claims she had a sleep apnea test but could not sleep because she had an anxiety attack. She also did have a heart monitor test, magnesium test and serotonin test with her moisture tester along with a urine sample test. She [...] BY MOUTH TWICE DAILY; Therapy: 13Aug2016 to (Evaluate:[id number]) Requested for: 21Sep2016; Last Rx:21Sep2016 Ordered Rx By: Nellie Moy; Dispense: 30 Days ; #:60 Capsule; Refill: 0; For: Abdominal cramping, generalized; JULIANA = N; Print Rx; Last Updated By: [facility]; 09/21/2016 8:25:38 AM 2. ClonazePAM 1 MG [...] Shirley Zhang; 04/10/2014 3:10:36 PM Vitals Recorded: [id number] 03:23PM Temperature 98.7 F Heart Rate 103 [...] Allergic rhinitis;JULIANA = N; Verified Transmission to [facility] [address]; Last Updated By: [email or web address];03/16/2017 3:38:23 PM Atypical chest pain, Fever, IBS (irritable bowel syndrome) 2. CBC W Differential; Status:Hold For - Manual Activation; Requested for:16Mar2017; Perform:[facility]; Due:15Apr2017; Last Updated By:Fariba Garvey; 03/16/2017 3:36:44 PM;Ordered; For:Atypical chest pain, Fever, IBS (irritable bowel syndrome); Ordered By:Sergo Mackey; 3. Compr Metabolic Prof ( CMP ); Status:Hold For - Manual Activation; Requested for:16Mar2017; Perform:[facility]; Due:15Apr2017; Last Updated By:Fariba Garvey; 03/16/2017 3:36:44 PM;Ordered; For:Atypical chest pain, Fever, IBS (irritable bowel syndrome); Ordered By:Sergo Mackey; 4. Free T4 ( Thyroxine ); Status:Hold For - Manual Activation; Requested for:16Mar2017; Perform:[facility]; Due:15Apr2017; Last Updated By:Fariba Garvey; 03/16/2017 3:36:44 PM;Ordered; For:Atypical chest pain, Fever, IBS (irritable bowel syndrome); Ordered By:Sergo Mackey; 5. Thyroid Stim Hormone ( TSH ); Status:Hold For - Manual Activation; Requested for:[id number]; [facility]; Due:[id number]; Last Updated By:Fariba Garvey; 03/16/2017 3:36:44 PM;Ordered; For:Atypical chest pain, Fever, IBS (irritable bowel syndrome); Ordered By:Sergo Mackey; She will continue her current medicines and specialty followup. Signatures Electronically signed by : Sergo Mackey M.D.; Mar 21 2017 10:10PM COMMUNITY WORKER (Author) documented in this encounter Plan of Treatment Not on file documented as of this encounter Visit Diagnoses Not on filedocumented in this encounter Care Teams Dough Brake Machine Operator Relationship Specialty Start Date End Date Sergo Mackey MD PCP - General 04/07/17 Sergo Mackey MD PCP - General 08/05/16 04/06/17 documented as of this encounter
--- OUTSIDE RECORDS SUMMARY | 2024-11-08 06:41 | XMS_ITS | Encounter Summary ---
Author Organization [facility] Address [address] [place] [address]. [place], [place] [address] [place] [address] Care Team Providers Care Global Implementation Manager Name Role Phone Sergo Mackey MD Primary Care Provider Sergo Duncan MD Primary Care Provider Julian short Encounter Details Date Type Department Care Team (Latest Contact Info) Description 08/20/2016 Abstract [facility] Medical Group [...] Task Name: Medical Complaint Callback Assigned To: [facility] Nurse Team Regarding Patient: Alia Fabian, Status: In Progress Comment: Nellie Moy - 20 Aug 2016 11:18 AM TASK CREATED Alia's head CT is normal . Elsa Rivera 20 Aug 2016 4:35 PM TASK IN PROGRESS Elsa Rivera 20 Aug 2016 4:36 PM TASK EDITED Patient informed//af Signatures Electronically signed by : Elsa Rivera, ; Aug 20 2016 4:36PM FIELD SERVICE REPRESENTATIVE (Author) documented in this encounter Plan of Treatment Not on file documented as of this encounter Visit Diagnoses Not on filedocumented in this encounter Care Teams Global Implementation Manager Relationship Specialty Start Date End Date Sergo Mackey MD PCP - General 04/07/17 Sergo Mackey MD PCP - General 08/05/16 04/06/17 documented as of this encounter
--- OUTSIDE RECORDS SUMMARY | 2024-11-08 06:41 | XMS_ITS | Encounter Summary ---
Author Organization [facility] Address [address] [place] [address]. [place], [place] [address] [place] [address] Care Team Providers Care Accreditation Coordinator Name Role Phone Sergo Mackey MD Primary Care Provider Sergo Duncan MD Primary Care Provider Julian short Encounter Details Date Type Department Care Team (Latest Contact Info) Description 12/01/2016 Abstract [facility] Social History Tobacco [...] on filedocumented in this encounter Care Teams Accreditation Coordinator Relationship Specialty Start Date End Date Sergo Mackey MD PCP - General 04/07/17 Sergo Mackey MD PCP - General 08/05/16 04/06/17 documented as of this encounter
--- OUTSIDE RECORDS SUMMARY | 2024-11-08 06:41 | XMS_ITS | Encounter Summary ---
Author Organization [facility] Address [address] [place] [address]. [place], [place] [address] [place] [address] Care Team Providers Care Rails Developer Name Role Phone Sergo Mackey MD Primary Care Provider Sergo Duncan MD Primary Care Provider Julian short Encounter Details Date Type Department Care Team (Latest Contact Info) Description 08/18/2016 Abstract [facility] Sergo Mackey MD Social History [...] on filedocumented in this encounter Care Teams Rails Developer Relationship Specialty Start Date End Date Sergo Mackey MD PCP - General 04/07/17 Sergo Mackey MD PCP - General 08/05/16 04/06/17 documented as of this encounter
--- OUTSIDE RECORDS SUMMARY | 2024-11-08 06:41 | XMS_ITS | Encounter Summary ---
Author Organization [facility] Address [address] [place] [address]. [place] [address] [place] [address] Care Team Providers Care Emergency Spill Response Technician Name Role Phone Sergo Mackey MD Primary Care Provider Sergo Duncan MD Primary Care Provider Julian short Encounter Details Date Type Department Care Team (Late st Contact Info) Description 08/05/2016 Abstract [facility] Medical Group Family & Internal Medicine - [place] [address] [place] [address] Nellie Moy FNP [address] [place] [address] Social History Tobacco Use Types Packs/Day Years [...] Alia states that she was hospitalized at [facility] and for the last week she has [...] infection; JULIANA = N; Verified Transmission to [facility] [address]; Last Updated By: Neronote; 08/05/2016 11:47:13 AM Bilateral otitis externa, Bilateral otitis media 2. Kkvsmyhk-Krtpmjihg-RH [id number] Otic Solution; INSTILL 3 DROPS IN BOTH EARS 3-4 TIMES DAILY Rx By: Nellie Moy; Dispense: 0 Days ; #:1 X 10 ML Bottle; Refill: 0; For: Bilateral otitis externa, Bilateral otitis media; JULIANA = N; Verified Transmission to [facility] 03574; Last Updated By: Neronote; 08/05/2016 11:47:12 AM 3. Recheck if symptoms [...] otitis media; JULIANA= N; Verified Transmission to [facility] [address]17[address]; Last Updated By: Neronote; 08/05/2016 11:47:13 AM Bipolar mood disorder, Panic [...] Status:In Progress - Specimen/Data Collected; Done: 05Aug2016 Perform:[facility]; Due:04Sep2016; Last Updated By:Angela Lal; 08/05/2016 1:07:55 PM;Ordered; For:Vomiting and diarrhea; Ordered By:Nellie Moy; 10. Compr Metabolic Prof ( CMP ); Status:In Progress - Specimen/Data Collected; Done: 05Aug2016 [facility]; Due:04Sep2016; Last Updated By:Angela Lal; 08/05/2016 1:07:55 PM;Ordered; For:Vomiting and diarrhea; Ordered By:Nellie Moy; 11. Drink plenty of fluids.; Status:Complete; Done: 05Aug2016 01:38PM Ordered; For:Vomiting and diarrhea; Ordered By:Nellie Moy; We will call you with your lab results Signatures Electronically signed by : Nellie Moy, ; Aug 05 2016 1:38PM LIFE SKILLS INSTRUCTOR (Author) documented in this encounter Plan of Treatment Not on file documented as of this encounter Procedures Procedure Name Priority Date/Time Associated Diagnosis Comments COMPREHENSIVE METABOLIC PANEL Routine 08/05/2016 1:07 PM CDT CBC W/DIFF AUTOMATED Routine 08/05/2016 1:07 PM CDT documented in this encounter Results * (ABNORMAL) COMPREHENSIVE METABOLIC PANEL (08/05/2016 1:07 PM CDT) Pathologist [facility] SODIUM S/P/B 139 136 - 145 mmol/L [...] communication needed at this time Nellie Moy [facility] Final Result [facility] TO EPIC CONVERSION [...] on filedocumented in this encounter Care Teams Emergency Spill Response Technician Relationship Specialty Start Date End Date Sergo Mackey MD PCP - General 04/07/17 Sergo Mackey MD PCP - General 08/05/16 04/06/17 documented as of this encounter
--- OUTSIDE RECORDS SUMMARY | 2024-11-08 06:41 | XMS_ITS | Encounter Summary ---
Author Organization [facility] Address [address] [place] [address]. [place], [place] [address] [place] [address] Care Team Providers Care Career Services Representative Name Role Phone Sergo Mackey MD Primary Care Provider Sergo Duncan MD Primary Care Provider Julian short Encounter Details Date Type Department Care Team (Latest Contact Info) Description 12/08/2016 Abstract [facility] Sergo Mackey MD Social History [...] on filedocumented in this encounter Care Teams Career Services Representative Relationship Specialty Start Date End Date Sergo Mackey MD PCP - General 04/07/17 Sergo Mackey MD PCP - General 08/05/16 04/06/17 documented as of this encounter
--- OUTSIDE RECORDS SUMMARY | 2024-11-08 06:41 | XMS_ITS | Encounter Summary ---
Author Organization [facility] Address [address] [place] [address]. [place], [place] [address] [place] [address] Care Team Providers Care Back Tender Cylinder Name Role Phone Sergo Mackey MD Primary Care Provider Sergo Duncan MD Primary Care Provider Sergo Duncan MD Primary Care Provider Sergo Duncan MD Primary Care Provider Sergo Duncan MD Primary Care Provider Sagrariovaeliceo short Encounter Details Date Type Department Care Team (Latest Contact Info) Description 06/18/2016 Abstract [facility] Medical Group Social History Tobacco [...] Sanders Task Name: Call Back Assigned To: [facility] Team Narendra Regarding Patient: Alia Fabian, Status: In Progress Comment: Juana Sanders - 18 Jun 2016 2:53 PM TASK CREATED Caller: Self; Results Inquiry; patient called regarding her lab results, she would like someone to call her. She states she went to the ER after being seen here and was diagnosed with a UTI. Patient phone # [phone] Eloisa Wolfe - 18 Jun 2016 3:51 PM TASK IN PROGRESS Message: Pt updated-елена Signatures Electronically signed by : Eloisa Wolfe R.N.; Jun 18 2016 3:54PM COMMUNITY RELATIONS MANAGER (Author) documented in this encounter Plan of Treatment Not on file documented as of this encounter Visit Diagnoses Not on filedocumented in this encounter Care Teams Back Tender Cylinder Relationship Specialty Start Date End Date Sergo Mackey MD PCP - General 04/07/17 Sergo Mackey MD PCP - General 08/05/16 04/06/17 Sergo Mackey MD PCP - General 07/16/16 08/04/16 Sergo Mackey MD PCP - General 07/14/16 07/15/16 Sergo Mackey MD PCP - General 06/16/16 07/13/16 documented as of this encounter
--- OUTSIDE RECORDS SUMMARY | 2024-11-08 06:41 | XMS_ITS | Encounter Summary ---
Author Organization [facility] Address [address] [place] [address]. [place] [address] [place] [address] Care Team Providers Care Coal Pulverizing Operator Name Role Phone Sergo Mackey MD Primary Care Provider Sergo Duncan MD Primary Care Provider Sergo Duncan MD Primary Care Provider Sergo Duncan MD Primary Care Provider Julian short Encounter Details Date Type Department Care Team (Late st Contact Info) Description 07/14/2016 Abstract [facility] [place] [address] Sergo Mackey MD Social History [...] URINE CLEAN CATCH 07/14/2016 5:40 PM CDT [facility] SPECIAL REQUESTS NO SPECIAL REQUEST 07/14/2016 5:40 PM CDT [facility] CULTURE RESULT NO GROWTH 2 DAYS 07/17/2016 8:10 AM CDT [facility] URINE SPECIMEN OBTAINED BY CLEAN CATCH PROCEDURE / Unknown 07/14/2016 2:41 PM CDT 07/14/2016 7:08 PM CDT us Generic Conversion Md [facility] GENERAL ORDERABLES Final Result [facility] [address] [place] [address], [place] [phone] documented in this encounter Visit Diagnoses Diagnosis Other abnormal findings in urine documented in this encounter Care Teams Coal Pulverizing Operator Relationship Specialty Start Date End Date Sergo Mackey MD PCP - General 04/07/17 Sergo Mackey MD PCP - General 08/05/16 04/06/17 Sergo Mackey MD PCP - General 07/16/16 08/04/16 Sergo Mackey MD PCP - General 07/14/16 07/15/16 documented as of this encounter
--- OUTSIDE RECORDS SUMMARY | 2024-11-08 06:41 | XMS_ITS | Encounter Summary ---
Author Organization [facility] Address [address] [place] [address]. [place], [place] [address] [place] [address] Care Team Providers Care First Coat Operator Name Role Phone Sergo Mackey MD Primary Care Provider Sergo Duncan MD Primary Care Provider Julian short Encounter Details Date Type Department Care Team (Latest Contact Info) Description 03/15/2017 Abstract [facility] Medical Group Social History Tobacco Use [...] on filedocumented in this encounter Care Teams First Coat Operator Relationship Specialty Start Date End Date Sergo Mackey MD PCP - General 04/07/17 Sergo Mackey MD PCP - General 08/05/16 04/06/17 documented as of this encounter
--- OUTSIDE RECORDS SUMMARY | 2024-11-08 06:41 | XMS_ITS | Encounter Summary ---
Author Organization [facility] Address [facility]. [place], [place] [address] [place] [address] Care Team Providers Care Investigator Fraud Name Role Phone Sergo Mackey MD Primary Care Provider Sergo Duncan MD Primary Care Provider Sergo Duncan MD Primary Care Provider Julian short Encounter Details Date Type Department Care Team (Latest Contact Info) Description 07/21/2016 Abstract [facility] Medical Group Social History [...] feel free to contact my office at [phone]. Sergo Mackey M.D. Electronically signed by:Fariba Garvey MA Jul 21 2016 4:56PM PRODUCT DEVELOPMENT ECOLOGIST Author documented in this encounter Plan of Treatment Not on file documented as of this encounter Visit Diagnoses Not on filedocumented in this encounter Care Teams Investigator Fraud Relationship Specialty Start Date End Date Sergo Mackey MD PCP - General 04/07/17 Sergo Mackey MD PCP - General 08/05/16 04/06/17 Sergo Mackey MD PCP - General 07/16/16 08/04/16 documented as of this encounter
--- OUTSIDE RECORDS SUMMARY | 2024-11-08 06:41 | XMS_ITS | Encounter Summary ---
Author Organization [facility] Address [facility] [facility] [place], [place] [address] [place] [address] Care Team Providers Care Direct Casting Operator Name Role Phone Sergo Mackey MD Primary Care Provider Sergo Duncan MD Primary Care Provider Sergo Duncan MD Primary Care Provider Sergo Duncan MD Primary Care Provider Sergo Duncan MD Primary Care Provider Julian short Encounter Details Date Type Department Care Team (Latest Contact Info) Description 06/16/2016 Abstract [facility] Group Sergo Mackey MD Social History [...] W/DIFF AUTOMATED (06/16/2016 3:16 PM CDT) Pathologist [facility] WBC 8.9 4.8 - 10.8 X10'3/uL [facility] [...] on filedocumented in this encounter Care Teams Direct Casting Operator Relationship Specialty Start Date End Date Sergo Mackey MD PCP - General 04/07/17 Sergo Mackey MD PCP - General 08/05/16 04/06/17 Sergo Mackey MD PCP - General 07/16/16 08/04/16 Sergo Mackey MD PCP - General 07/14/16 07/15/16 Sergo Mackey MD PCP - General 06/16/16 07/13/16 documented as of this encounter
--- OUTSIDE RECORDS SUMMARY | 2024-11-08 06:41 | XMS_ITS | Encounter Summary ---
Author Organization [facility] Address [facility]. [place], [place] [address] [place] [address] Care Team Providers Care Perfume Maker Name Role Phone Sergo Mackey MD Primary Care Provider Sergo Duncan MD Primary Care Provider Julian short Encounter Details Date Type Department Care Team (Latest Contact Info) Description 12/09/2016 Abstract [facility] Medical Group Social History Tobacco [...] Mackey Task Name: Follow Up Assigned To: [facility] Narendra Regarding Patient: Alia Fabian, Status: In Progress Comment: Sergo Mackey - 09 Dec 2016 10:04 AM TASK CREATED Ultrasound of the liver, gallbladder and surrounding structures was good/normal. We can have her see a industrial gas fitter if she is continuing to have stomach symptoms. Fariba Garvey - 09 Dec 2016 10:27 AM TASK IN PROGRESS Message: Patient notified and already sees [facility] Signatures Electronically signed by : Fariba Garvey MA; Dec 09 2016 10:28AM AUTOMATION ENGINEERING MANAGER (Author) documented in this encounter Plan of Treatment Not on file documented as of this encounter Visit Diagnoses Not on filedocumented in this encounter Care Teams Perfume Maker Relationship Specialty Start Date End Date Sergo Mackey MD PCP - General 04/07/17 Sergo Mackey MD PCP - General 08/05/16 04/06/17 documented as of this encounter
--- OUTSIDE RECORDS SUMMARY | 2024-11-08 06:41 | XMS_ITS | Encounter Summary ---
Author Organization [facility] Address [facility] [place] [address] [place] [address] Care Team Providers Care Brimmer Blocker Name Role Phone Sergo Mackey MD Primary Care Provider Sergo Duncan MD Primary Care Provider Sergo Duncan MD Primary Care Provider Julian short Encounter Details Date Type Department Care Team (Latest Contact Info) Description 07/24/2016 Abstract [facility] Medical Group Social History Tobacco [...] Verified Results Ur Fract Catecholamines 24 Hr [id number] 03:35PM Sergo Mackey Test Name Result Flag [...] 480 Unit: mcg/24 h Test Performed by [facility], [facility], [address] [place] [address] Aaron Kennedy M.D., Ph.D., Director of Laboratories , [facility] [id number] Discussion/Summary The detailed analysis of hormones in [...] Eloisa Wolfe R.N.; Aug 03 2016 3:27PM PRINCIPAL IOS DEVELOPER (Author) documented in this encounter Plan of Treatment Not on file documented as of this encounter Visit Diagnoses Not on filedocumented in this encounter Care Teams Brimmer Blocker Relationship Specialty Start Date End Date Sergo Mackey MD PCP - General 04/07/17 Sergo Mackey MD PCP - General 08/05/16 04/06/17 Sergo Mackey MD PCP - General 07/16/16 08/04/16 documented as of this encounter
--- OUTSIDE RECORDS SUMMARY | 2024-11-08 06:41 | XMS_ITS | Encounter Summary ---
Author Organization [facility] Address [address] [place] [address]. [place], [place] [address] [place] [address] Care Team Providers Care Lead Burner Supervisor Name Role Phone Sergo Mackey MD Primary Care Provider Sergo Duncan MD Primary Care Provider Sergo Duncan MD Primary Care Provider Julian short Encounter Details Date Type Department Care Team (Latest Contact Info) Description 07/17/2016 Abstract [facility] Medical Group , James Pineda MD Social [...] patient notified -sjs Verified Results Urine Culture [id number] 02:41PM Sergo Mackey Test Name Result Flag Reference Urine Culture SPECIMEN DESCRIPTION - URINE CLEAN CATCH SPECIAL REQUESTS - NO SPECIAL REQUEST CULTURE - NO GROWTH 2 DAYS REPORT STATUS - FINAL 07/17/2016 Discussion/Summary Urine culture shows no infection. No need for anbx. Signatures Electronically signed by : Fariba Garvey MA; Jul 20 2016 1:37PM SQUARE CUTTER (Author) * Generic Conversion MD Ashkan - 07/17/2016 11:09 AM CDT Message Recorded as Task Date: 07/15/2016 01:28 PM, Created By: Yasmine Fitch Task Name: Medical Complaint Callback Assigned To: [facility] Team Narendra Regarding Patient: [...] 16 Jul 2016 4:49 PM TASK EDITED [facility]-ел[facility]а Message: Pts mother updated-[facility] Plan 1. LORazepam 1 MG Oral Tablet; TAKE 1 TABLET BY MOUTH THREE TIMES DAILY NEEDED Rx By: Sergo Mackey; Dispense: 0 Days ; #:60 Tablet; Refill: 0; For: Bipolar mood disorder, Palpitations; JULIANA = N; Call Rx; Last Updated By: Eloisa Wolfe Signatures Electronically signed by : Eloisa Wolfe R.N.; Jul 17 2016 11:11AM SQUARE CUTTER (Author) documented in this encounter Plan of Treatment Not on file documented as of this encounter Visit Diagnoses Not on filedocumented in this encounter Care Teams Lead Burner Supervisor Relationship Specialty Start Date End Date Sergo Mackey MD PCP - General 04/07/17 Sergo Mackey MD PCP - General 08/05/16 04/06/17 Sergo Mackey MD PCP - General 07/16/16 08/04/16 documented as of this encounter
--- OUTSIDE RECORDS SUMMARY | 2024-11-08 06:41 | XMS_ITS | Encounter Summary ---
Author Organization [facility] Address [facility]. [place], [place] [address] [place] [address] Care Team Providers Care Cesspool Cleaner Name Role Phone Sergo Mackey MD Primary Care Provider Sergo Duncan MD Primary Care Provider Julian short Encounter Details Date Type Department Care Team (Latest Contact Info) Description 10/22/2016 Abstract [facility] Medical Group Social History Tobacco Use [...] Medical Complaint Callback Assigned To: [facility] Narendra Regarding Patient: Alia Fabian, Status: Active Comment: Jaclyn Santana - 22 Oct 2016 3:43 PM TASK CREATED Caller: Self; Medical Complaint; Pt stated that at 09/10/16 she talked to you about speaking with her ob Shanell Vale [phone] at [facility] [place] regarding her being able to use prestrogen with her blood pressure. Asking if this has been done. Sergo Mackey - 22 Oct 2016 5:09 PM TASK REASSIGNED: Previously Assigned To Sergo Mackey Med list has both propranolol and metoprolol included. She should be on one or the other. I'm not sure if [place] Inspector wanted to start a progestin contraceptive but that would be fine if that is the plan. Message: PATIENT NOTIFIED -SJS Signatures Electronically signed by : Fariba Garvey MA; Oct 22 2016 5:17PM MEDICAL BILL PROCESSOR (Author) documented in this encounter Plan of Treatment Not on file documented as of this encounter Visit Diagnoses Not on filedocumented in this encounter Care Teams Cesspool Cleaner Relationship Specialty Start Date End Date Sergo Mackey MD PCP - General 04/07/17 Sergo Mackey MD PCP - General 08/05/16 04/06/17 documented as of this encounter
--- OUTSIDE RECORDS SUMMARY | 2024-11-08 06:41 | XMS_ITS | Encounter Summary ---
Author Organization [facility] Address [address] [place] [address]. [place], [place] [address] [place] [address] Care Team Providers Care Tanker Serviceman Name Role Phone Sergo Mackey MD Primary Care Provider Sergo Duncan MD Primary Care Provider Julian short Encounter Details Date Type Department Care Team (Latest Contact Info) Description 08/06/2016 Abstract [facility] Medical Group , James Pineda MD [...] Task Date: 08/06/2016 08:33 AM, Created By: Nellei Moy Task Name: Medical Complaint Callback Assigned To: [facility] Nurse Team Regarding Patient: Alia Fabian, Status: [...] Eloisa Wolfe R.N.; Aug 06 2016 1:30PM OUTSIDE SALES (Author) documented in this encounter Plan of Treatment Not on file documented as of this encounter Visit Diagnoses Not on filedocumented in this encounter Care Teams Tanker Serviceman Relationship Specialty Start Date End Date Sergo Mackey MD PCP - General 04/07/17 Sergo Mackey MD PCP - General 08/05/16 04/06/17 documented as of this encounter
--- OUTSIDE RECORDS SUMMARY | 2024-11-08 06:41 | XMS_ITS | Encounter Summary ---
Author Organization [facility] Address [facility] [place] [address] [place] [address] Care Team Providers Care Lottery Sales Clerk Name Role Phone Sergo Mackey MD Primary Care Provider Sergo Duncan MD Primary Care Provider Julian short Encounter Details Date Type Department Care Team (Latest Contact Info) Description 02/04/2017 Abstract [facility] Medical Group Social History Tobacco Use [...] November and wants to reschedule it to [facility] instead. Apt is on 02-08-17. Plan 1. US KIDNEYS BI; Status:Hold For - Scheduling; Requested for:[id number]; Perform:[facility]; Due:[id number]; Last Updated By:Marcela Wilson; 02/04/2017 11:39:06 AM;Ordered; For:Hematuria, Urinary frequency; Ordered By:Angeli Wu; Signatures Electronically signed by : Marcela Wilson MA; Feb 04 2017 11:40AM PLASTERER STUCCO (Author) documented in this encounter Plan of Treatment Not on file documented as of this encounter Visit Diagnoses Not on filedocumented in this encounter Care Teams Lottery Sales Clerk Relationship Specialty Start Date End Date Sergo Mackey MD PCP - General 04/07/17 Sergo Mackey MD PCP - General 08/05/16 04/06/17 documented as of this encounter
--- OUTSIDE RECORDS SUMMARY | 2024-11-08 06:41 | XMS_ITS | Encounter Summary ---
Author Organization [facility] Address [facility]. [place], [place] [address] [place] [address] Care Team Providers Care School Bus Technician Name Role Phone Sergo Mackey MD Primary Care Provider Sergo Duncan MD Primary Care Provider Julian short Encounter Details Date Type Department Care Team (Latest Contact Info) Description 02/08/2017 Abstract [facility] Medical Group Angeli Wu, EMELYN [address] [phone] Social History Tobacco Use Types [...] on filedocumented in this encounter Care Teams School Bus Technician Relationship Specialty Start Date End Date Sergo Mackey MD PCP - General 04/07/17 Sergo Mackey MD PCP - General 08/05/16 04/06/17 documented as of this encounter
--- OUTSIDE RECORDS SUMMARY | 2024-11-08 06:42 | XMS_ITS | Encounter Summary ---
Author Organization [facility] Address [address] [place] [address]. [place] [address] [place] [address] Care Team Providers Care Infection Prevention Specialist Name Role Phone Sergo Mackey MD Primary Care Provider Sergo Duncan MD Primary Care Provider Sergo Duncan MD Primary Care Provider Sergo Duncan MD Primary Care Provider Sergo Duncan MD Primary Care Provider Julian short Encounter Details Date Type Department Care Team (Late st Contact Info) Description 06/16/2016 Abstract [facility] [place] [address] Sergo Mackey MD Social History Tobacco Use [...] - 4.20 mIU/mL 06/16/2016 8:[address] [facility] SERUM OR PLASMA SPECIMEN / Unknown 06/16/2016 3:16 PM CDT 06/16/2016 7:49 PM CDT us Generic Conversion Md [facility] Final R esult [facility] [address] [place] [address], * COMPREHENSIVE METABOLIC PANEL (06/16/2016 3:16 PM CDT) Pathologist [facility] GLUCOSE 96 70 - 99 mg/dL 06/16/2016 8:[address] [facility] BUN 10 8 - 23 mg/dL 06/16/2016 8:[address] [facility] CREATININE S/P/B 0.65 0.60 - 1.10 mg/dL 06/16/2016 8:[address] [facility] SODIUM S/P/B 140 136 - 145 mmol/L 06/16/2016 8:[address] [facility] POTASSIUM S/P/B 4.5 3.5 - 5.1 mmol/L 06/16/2016 8:[address] [facility] CHLORIDE S/P/B 101 98 - 107 mmol/L 06/16/2016 8:[address] [facility] CO2 25 22 - 29 mmol/L 06/16/2016 8:[address] [facility] BILIRUBIN TOTAL S/P/B 0.6 0.2 - 1.2 mg/dL 06/16/2016 8:[address] [facility] CALCIUM S/P/B 9.8 8.6 - 10.2 mg/dL 06/16/2016 8:[address] [facility] ALKALINE PHOSPHATASE S/P/B 74 35 - 104 U/L 06/16/2016 8:[address] [facility] AST 18 0 - 32 U/L 06/16/2016 8:[address] [facility] TOTAL PROTEIN S/P/B 7.5 6.4 - 8.3 g/dL 06/16/2016 8:[address] [facility] ALBUMIN S/P/B 4.8 3.5 - 5.2 g/dL 06/16/2016 8:[address] [facility] ALT 19 0 - 33 U/L 06/16/2016 8:[address] [facility] GLOBULIN 2.7 2.3 - 3.6 g/dL 06/16/2016 8:[address] [facility] A/G RATIO 1.8 1.0 - 2.0 06/16/2016 8:[address] [facility] ANION GAP 19 8 - 20 06/16/2016 8:[address] [facility] EGFR NON-AFR. AMER. >60 >60 mL/min/1.7 '2 06/16/2016 8:[address] [facility] EGFR AFR. AMER. >60 >60 mL/min/1.7 '2 06/16/2016 8:[address] [facility] Comment: NOTE: eGFR is not calculated for patients <18 years of age. This is an estimated GFR (CKD EPI) and should not be used for calculating drug doses. 06/16/2016 3:16 PM CDT 06/16/2016 7:49 PM CDT us Generic Conversion Md [facility] Final R esult [facility] [address] [place] [address], [place] [phone] * (ABNORMAL) CBC W/DIFF AUTOMATED (06/16/2016 3:16 PM CDT) [facility] WBC 8.9 4.8 - 10.8 X10'3/uL 06/16/2016 7:[address] [facility] RBC 4.95 4.20 - 5.40 X10'6/uL 06/16/2016 7:[address] [facility] HGB 14.0 12.0 - 16.0 g/dL 06/16/2016 7:[address] [facility] HCT 44.5 38.0 - 48.0 % 06/16/2016 7:[address] [facility] MCV 89.9 81.0 - 99.0 fL 06/16/2016 7:[address] [facility] MCH 28.3 27.0 - 31.0 pg 06/16/2016 7:[address] [facility] MCHC 31.5(L) 32.0 - 36.0 g/dL 06/16/2016 7:[address] [facility] RDW 13.1 11.5 - 14.5 % 06/16/2016 7:[address] [facility] PLT 324 130 - 400 X10'3/uL 06/16/2016 7:[address] [facility] MPV 10.3 9.3 - 12.2 fL 06/16/2016 7:[address] [facility] DIFFERENTIAL TYPE AUTOMATED 06/16/2016 7:[address] [facility] NEUTROPHILS % 67.0(H) 43.0 - 65.0 % 06/16/2016 7:[address] [facility] LYMPHOCYTES % 26.0 20.0 - 46.0 % 06/16/2016 7:[address] [facility] MONOCYTES % 4.5(L) 5.0 - 12.0 % 06/16/2016 7:[address] [facility] EOSINOPHILS 1.6 1.0 - 3.0 % 06/16/2016 7:[address] [facility] BASOPHILS 0.7 0.0 - 1.0 % 06/16/2016 7:[address] [facility] IMMATURE GRANS % 0.2 0.0 - 1.0 % 06/16/2016 7:[address] [facility] 06/16/2016 3:1 6 PM CDT 06/16/2016 7:49 PM CDT us Generic Conversion Md [facility] Final R esult [facility] [address] [place] [address], documented in this encounter Visit Diagnoses Diagnosis Bipolar disorder (CMS/HCC [facility]) Bipolar disorder, unspecified documented in this encounter Care Teams Infection Prevention Specialist Relationship Specialty Start Date End Date Sergo Mackey MD PCP - General 04/07/17 Sergo Mackey MD PCP - General 08/05/16 04/06/17 Sergo Mackey MD PCP - General 07/16/16 08/04/16 Sergo Mackey MD PCP - General 07/14/16 07/15/16 Sergo Mackey MD PCP - General 06/16/16 07/13/16 documented as of this encounter
--- OUTSIDE RECORDS SUMMARY | 2024-11-08 06:42 | XMS_ITS | Encounter Summary ---
Author Organization [facility] Address [facility]6 [facility]. [place], [place] [address] [place] [address] Care Team Providers Care Amplifier Mechanic Name Role Phone Sergo Mackey MD Primary Care Provider Sergo Duncan MD Primary Care Provider Sergo Duncan MD Primary Care Provider Sergo Duncan MD Primary Care Provider Sergo Duncan MD Primary Care Provider Julian short Encounter Details Date Type Department Care Team (Late st Contact Info) Description 06/16/2016 Abstract [facility] Medical Group Family & Internal Medicine [address] [phone] Sergo Mackey MD Social History [...] states she ended up going to [facility] yesterday for symptoms of shortness of breath [...] tablettid as needed; Therapy: 10Apr2014 to (Last Rx:[id number]) Ordered Rx By: Sergo Mackey; Dispense: 0 [...] Status:In Progress - Specimen/Data Collected; Done: 16Jun2016 Perform:[facility]; Due:16Jul2016; Last Updated By:Angela Lal; 06/16/2016 3:16:54 PM;Ordered; For:Bipolar mood disorder, Panic disorder without agoraphobia; Ordered By:Sergo Mackey; 3. Compr Metabolic Prof ( CMP ); Status:In Progress - Specimen/Data Collected; Done: 16Jun2016 Perform:[facility]; Due:16Jul2016; Last Updated By:Angela Lal; 06/16/2016 3:16:54 PM;Ordered; For:Bipolar mood disorder, Panic disorder without agoraphobia; Ordered By:Sergo Mackey; 4. Thyroid Stim Hormone ( TSH ); Status:In Progress - Specimen/Data Collected; Done: 16Jun2016 Perform:[facility]; Due:16Jul2016; Last Updated By:Angela Lal; 06/16/2016 [...] Sergo Mackey M.D.; Jun 18 2016 9:33AM SENIOR ACCOUNT CLERK (Author) documented in this encounter Plan of Treatment Not on file documented as of this encounter Visit Diagnoses Not on filedocumented in this encounter Care Teams Amplifier Mechanic Relationship Specialty Start Date End Date Sergo Mackey MD PCP - General 04/07/17 Sergo Mackey MD PCP - General 08/05/16 04/06/17 Sergo Mackey MD PCP - General 07/16/16 08/04/16 Sergo Mackey MD PCP - General 07/14/16 07/15/16 Sergo Mackey MD PCP - General 06/16/16 07/13/16 documented as of this encounter
--- OUTSIDE RECORDS SUMMARY | 2024-11-08 06:42 | XMS_ITS | Encounter Summary ---
Author Organization [facility] Address [facility]6 [facility]. [place], [place] [address] [place] [address] Care Team Providers Care Roll Slicing Machine Tender Name Role Phone Sergo Mackey MD Primary Care Provider Sergo Duncan MD Primary Care Provider Sergo Duncan MD Primary Care Provider Sergo Duncan MD Primary Care Provider Sergo Duncan MD Primary Care Provider Julian short Encounter Details Date Type Department Care Team (Latest Contact Info) Description 10/07/2015 Abstract [facility] Medical Group Social History [...] Mackey Task Name: Follow Up Assigned To: [facility] [place] [facility] Team Narendra Regarding [...] Ibeth Van, ; Oct 07 2015 2:10PM FOOD SERVICE AMBASSADOR (Author) documented in this encounter Plan of Treatment Not on file documented as of this encounter Visit Diagnoses Not on filedocumented in this encounter Care Teams Roll Slicing Machine Tender Relationship Specialty Start Date End Date Sergo Mackey MD PCP - General 04/07/17 Sergo Mackey MD PCP - General 08/05/16 04/06/17 Sergo Mackey MD PCP - General 07/16/16 08/04/16 Sergo Mackey MD PCP - General 07/14/16 07/15/16 Sergo Mackey MD PCP - General 06/16/16 07/13/16 documented as of this encounter
--- OUTSIDE RECORDS SUMMARY | 2024-11-08 06:42 | XMS_ITS | Encounter Summary ---
Author Organization [facility] Address [facility] [place] [address] [place] [address] Care Team Providers Care Senior Copywriter Name Role Phone Sergo Mackey MD Primary Care Provider Sergo Duncan MD Primary Care Provider Sergo Duncan MD Primary Care Provider Sergo Duncan MD Primary Care Provider Sergo Duncan MD Primary Care Provider Julian short Encounter Details Date Type Department Care Team (Late st Contact Info) Description 04/10/[address] [facility] Medical Group Family & Internal Medicine [address] [phone] Sergo Mackey MD Social History [...] Chief Complaint Free Text: Was seen at [facility] and needed to start control but b/p [...] = N; Record; Last Updated By: Shirley hZang; 04/10/2014 3:10:36 PM Allergies 1. 12 Hour [...] Plan 1. LC-C difficile Toxins A+B, EIA [id number] Status: Active Requested for: 10Apr2014 Perform: [facility] Due: [id number] Marked Important; Last Updated By: Shirley Zhang; 04/10/2014 3:52:49 PM; Ordered; For: Chronic diarrhea; Ordered By: Sergo Mackey 2. LC-Ova + Parasite Exam [id number] Status: Active Requested for: 10Apr2014 Perform: [facility] Due: [id number] Marked Important; Last Updated By: Shirley Zhang; 04/10/2014 3:52:49 PM; Ordered; For: Chronic diarrhea; Ordered By: Sergo Mackey 3. LC-Stool Culture [id number] Status: Active Requested for: 10Apr2014 Perform: [facility] Due: [id number] Marked Important; Last Updated By: Shirley Zhang; 04/10/2014 3:52:48 PM; Ordered; For: Chronic diarrhea; Ordered By: Sergo Mackey 4. LC-White Blood Cells ( WBC ), Stool [id number] Status: Active Requested for: 10Apr2014 Perform: [facility] Due: [id number] Marked Important; Last Updated By: Shirley Zhang; 04/10/2014 3:52:48 PM; Ordered; For: Chronic diarrhea; Ordered By: Sergo Mackey 5. O AND P, STOOL AND SMEAR Status: Canceled - Manual Activation Perform: [facility] Due: 17Apr2014; Last Updated By: Shirley Zhang; 04/10/2014 3:52:48 PM; Ordered; For: Chronic diarrhea; Ordered By: Sergo Mcakey 6. Stool C Diff Molecular Assay Status: Canceled - Manual Activation [facility] Due: 17Apr2014; Last Updated By: Shirley Zhang; 04/10/2014 3:52:48 PM; Ordered; For: Chronic diarrhea; Ordered By: Sergo Mackey 7. Stool Culture Status: Canceled - Manual Activation [facility]: 17Apr2014; Last Updated By: Shirley [...] Sergo Mackey M.D.; Apr 12 2014 5:45PM MANAGER REQUIREMENTS (Author) documented in this encounter Plan of Treatment Not on file documented as of this encounter Visit Diagnoses Not on filedocumented in this encounter Care Teams Senior Copywriter Relationship Specialty Start Date End Date Sergo Mackey MD PCP - General 04/07/17 Sergo Mackey MD PCP - General 08/05/16 04/06/17 Sergo Mackey MD PCP - General 07/16/16 08/04/16 Sergo Mackey MD PCP - General 07/14/16 07/15/16 Sergo Mackey MD PCP - General 06/16/16 07/13/16 documented as of this encounter
--- OUTSIDE RECORDS SUMMARY | 2024-11-08 06:43 | XMS_ITS | Clinical Summary ---
Author Organization [facility] Address [address] [place] [address] Care Team Providers Care Publishing Manager Name Role Phone Trenton Lomeli MD Primary Care Provider [phone] Neelima Velazquez MD Unavailable [phone] Maura Wilson MD Unavailable [phone] Allergies Active Allergy Reactions Criticality Noted [...] 20 days 20 capsule [address] (PROTONIX) 40 mg EC tablet 5 Active sucralfate (CARAFATE) 1 gram tablet 5 Active dicyclomine (BENTYL) 10 mg capsule 5 025 Discontinued Active Problems Problem Noted Date Diagnosed Date Lactose intolerance 11/06/2024 Gluten intolerance 11/06/2024 Hypercholesterolemia 06/16/2023 Morbid (severe) obesity due to excess calories 0 11/09/2022 Assessment & Plan (11/09/2022 4:02 PM MINE SHIFTER): BMI Follow-up includes: nutrition counseling, exercise counseling and education provided. Body mass index (BMI) 45.0-49.9, adult 3 Well adult exam 10/08/2021 Assessment & Plan (11/10/2022 2:28 PM MINE SHIFTER): A(n) yearly well adult visit has been [...] prn Assessment & Plan (10/08/2021 2:57 PM MINE SHIFTER): A initial well visit to establish care [...] 05/12/2017 Irritable bowel syndrome with diarrhea 7 Assessment & Plan (11/06/2024 11:14 AM MINE SHIFTER): IBS vs infectious (prolonged effect of viral gastoenteritis? With [place] or similar) will have her use omeprazole OTC 40 mg until she can grape picker her medications Resuming probiotic advised bland diet today, stay hydrated; avoid sugary foods (rice may be okay) we will try to review [place] record, ut from her portal, the CT was unremarkable urged her to grape picker her Rx from pharamcy as soon as feasible, but will not start the [place] [facility] referral may be needed Paroxysmal nocturnal dyspnea 10/02/2016 Overview (02/04/2017): Paroxysmal [...] Encounters Date Type Department Care Team Description 11/08/2024 5:57 AM MINE SHIFTER - Present Emergency [address] [address] 11/06/2024 10:30 AM MINE SHIFTER Telemedicine [facility] Primary Care at [address] [phone] Trenton Lomeli MD Irritable bowel syndrome with diarrhea (Primary Dx) 11/06/2024 Telephone [facility] Primary Care at [address] [phone] Trenton Lomeli MD Medical Question/Miscellaneous 11/03/2024 10:04 PM MINE SHIFTER - 11/04/2024 12:14 AM MINE SHIFTER Emergency [facility] Emergency Department [address] [place] [phone] Job James MD Sleep disturbance (Primary Dx); Chronic abdominal pain Discharge Disposition: Discharge to home or self care 11/03/2024 Orders Only [facility] Primary Care at [address] [phone] Trenton Lomeli MD 11/03/2024 Nurse Triage [facility] Primary Care at [address] [phone] Trenton Lomeli MD 11/03/2024 Nurse Triage [facility] Primary Care at [address] [phone] Angela Kumar RN 11/02/2024 3:00 PM MINE SHIFTER Lab [facility] Outpatient Lab at [address] [phone] 11/02/2024 1:45 PM MINE SHIFTER Lab [facility] Outpatient Lab at [address] [phone] Hypercholesterolemia (Primary Dx) 11/02/2024 1:41 PM MINE SHIFTER - 11/02/2024 11:59 PM MINE SHIFTER Hospital Encounter [address] [address] Diarrhea of presumed infectious origin Discharge Disposition: Discharge to home or self care 11/02/2024 1:15 PM MINE SHIFTER Office Visit [facility] Primary Care at [address] [phone] Trenton Lomeli MD Diarrhea of presumed infectious origin (Primary Dx) 10/30/2024 Nurse Triage [facility] Primary Care at [address] [phone] Trenton Lomeli MD 10/30/2024 Orders Only [facility] Primary Care at [address] [phone] Provider, MD Misael from Last 3 Months Immunizations Name Administration Dates Next Due Influenza, Unspecified 11/02/2024(Deferr ed: Patient Refused),06/16/2023(Deferred: Patient Refused),06/01/2023(Deferred: Patient Refused),11/01/2022(Deferred: Patient Refused),11/01/2022(Deferred: Patient Refused),08/10/2022(Deferred: Patient Refused),10/06/2021(Deferred: Patient Refused),09/15/2020(Deferred: Patient Refused) Surgical History Surgery Date Site/Laterality Comments WISDOM TOOTH EXTRACTION Oral Surgery Tooth Extraction [place] Tooth - (Added by TW Conv) Medical History Medical History Date Comments Hx Other Medical anxiety, depres kay, palpitations, htn, obesity, d; Comments: MAF 10/02/2016 - PCOS (polycystic ovarian syndrome) 10/06/2021 Anxiety and depression Morbid obesity (HCC) GERD (gastroesophageal reflux disease) Menstrual problem Gluten intolerance 11/06/2024 Lactose intolerance 11/06/2024 Family History Medical History Relation Name Comments [...] on file Legal Sex Female 4:15 AM MINE SHIFTER Gender Identity Not on file Sexual Orientation Not on file 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 Not on file Not on file Not on file Obstetrics History Last Filed Vital Signs Vital Sign Reading Time Taken Comments Blood Pressure 156/96 11/08/2024 6:06 AM MINE SHIFTER Pulse 90 11/08/2024 6:06 AM MINE SHIFTER Temperature 36.8 ??C (98.3 ??F) 11/08/2024 6:06 AM CS T Respiratory Rate 19 11/08/2024 6:06 AM MINE SHIFTER Oxygen Saturation 98% 11/08/2024 6:06 AM MINE SHIFTER Inhaled Oxygen Concentration - - Weight 117.9 kg (260 lb) 11/08/2024 6:06 AM MINE SHIFTER Height 170.2 cm (5' 7 ) 11/08/2024 6:06 AM MINE SHIFTER Body Mass Index 40.72 11/08/2024 6:06 AM MINE SHIFTER Plan of Treatment Health Maintenance Due Date [...] complete this topic Varicella Vaccines Discontinued Procedures * The patient is currently admitted. The information in this section might not be complete until the patient is discharged. Procedure Name Priority Date/Time Associated Diagnosis Comments XR CHEST 1 VIEW ED 11/08/2024 6:18 AM MINE SHIFTER DIFFERENTIAL AUTO STAT 11/08/2024 6:1 1 AM MINE SHIFTER CBC WITH AUTO DIFFERENTIAL STAT 11/08/2024 6:11 AM MINE SHIFTER URINALYSIS AND REFLEX TO MICROSCOPIC AND CULTURE STAT 11/08/2024 6:11 AM MINE SHIFTER POCT HCG, URINE Routine 11/08/2024 6:10 AM MINE SHIFTER ECG 12-LEAD Routine 11/03/2024 11:[address] HEAD WO CONTRAST ED 11/03/2024 1 0:53 PM MINE SHIFTER MAGNESIUM Routine 11/03/2024 10:46 PM MINE SHIFTER THYROID FUNCTION CASCADE Add-On 11/03/2024 10:46 PM MINE SHIFTER ERYTHROCYTE SEDIMENTATION RATE STAT 11/03/2024 10:46 PM MINE SHIFTER CREATINE KINASE (CK), TOTAL STAT 11/03/2024 10:46 PM MINE SHIFTER PRO B-TYPE NATRIURETIC PEPTIDE STAT 11/03/2024 10:46 PM MINE SHIFTER CRP (ACUTE PHASE) STAT 11/03/2024 10: 46 PM MINE SHIFTER TROPONIN T HIGH-SENSITIVITY 2-HOUR Timed 11/03/2024 10:46 PM MINE SHIFTER EGFR STAT 11/03/2024 7:40 PM MINE SHIFTER DIFFERENTIAL AUTO STAT 11/03/2024 7:4 0 PM MINE SHIFTER TROPONIN T HIGH-SENSITIVITY SERIES (BASELINE, 2HR, 4HR, 6HR) STAT 11/03/2024 7:40 PM MINE SHIFTER COMPREHENSIVE METABOLIC PANEL STAT 11/03/2024 7:40 PM MINE SHIFTER CBC WITH AUTO DIFFERENTIAL STAT 11/03/2024 7:40 PM MINE SHIFTER XR CHEST 1 VIEW ED 11/03/2024 7:17 PM MINE SHIFTER ECG 12-LEAD STAT 11/03/2024 6:34 PM MINE SHIFTER CRYPTOSPORIDIUM AND GIARDIA ANTIGEN ASSAY Routine 11/02/2024 1:41 PM MINE SHIFTER Diarrhea of presumed infectious origin HEPATITIS A ANTIBODY, IGM Routine 11/02/2024 1:41 PM MINE SHIFTER Diarrhea of presumed infectious origin CT ABDOMEN PELVIS W CONTRAST Schedule Routine, Read Routine (OP Routine) 10/28/2024 1:10 PM MINE SHIFTER HM PAP SMEAR Routine 03/19/2021 from Last 3 Months or Most Recently Relevant to Health Maintenance Results * XR Chest 1 Vw Portable (if patient condition/safety warrant portable) (11/08/2024 6:18 AM MINE SHIFTER) Anatomical Region Laterality Modality Body, Chest N/A Computed Radiogr aphy 11/08/2024 6:27 AM MINE SHIFTER Narrative 11/08/2024 6:29 AM MINE SHIFTER EXAM DESCRIPTION: ?? XR CHEST 1 VIEW REASON FOR STUDY: ?? chest pain ?? BIBEMS from home having chest discomfort for a week, non radiating, pressure like pain and SI without any plan. Was seen 3 days ago at [facility] and cardiac work up done. No heart problem identified. States that she is also losing weight, ?? wherein she lost 10lbs in a week. Pt is known case of anxiety, not on medication. ? TECHNIQUE: Single radiographic view of the chest. COMPARISON: ?? Chest x-ray of November 03, 2024. FINDINGS: LUNGS/PLEURA: ?? No focal consolidation or pneumothorax. No pleural effusion. ??There is no significant change as compared to previous study. ?? HEART/MEDIASTINUM: Cardiac silhouette is ??normal. ??Remaining mediastinal silhouettes are unremarkable. HARDWARE/LINES/TUBES: ?? None. BONES: ?? No acute findings. IMPRESSION: ?? No acute cardiopulmonary abnormality. THIS IS AN ELECTRONICALLY VERIFIED FINAL REPORT 11/08/2024 6:29 AM - Electronically signed by ??Gillian Stokes M.D. SN D: ??11/08/2024 6:29 AM T: Report ID: [id number] Reading Location: ??[id number] Procedure Note Gillian Stokes MD - 11/08/2024 EXAM DESCRIPTION: XR CHEST 1 VIEW REASON FOR STUDY: chest pain BIBEMS from home having chest discomfort for a week, non radiating,pressure like pain and SI without any plan. Was seen 3 days ago at [facility] and cardiac work up done. No heart problem identified. States that she isalso losing weight, wherein she lost 10lbs in a week. Pt is known case of anxiety, not on medication. TECHNIQUE: Single radiographic view of the chest. COMPARISON: Chest x-ray of November 03, 2024. FINDINGS: LUNGS/PLEURA: No focal consolidation or pneumothorax. Nopleural effusion. There is no significant change as compared to previous study. HEART/MEDIASTINUM: Cardiac silhouette is normal. Remaining mediastinal silhouettes are unremarkable. HARDWARE/LINES/TUBES: None. BONES: No acute findings. IMPRESSION: No acute cardiopulmonary abnormality. THIS IS AN ELECTRONICALLY VERIFIED FINAL REPORT 11/08/2024 6:29 AM - Electronically signed by Gillian Stokes M.D. SN T: Report ID: [id number] Reading Location: [id number] Jaclyn Xavier MD IMG XR PROCEDURES Final Result * Differential, auto (11/08/2024 6:11 AM MINE SHIFTER) Neutrophil abs 4.6 1.5 - 6.5 K/cumm Imm gran abs 0.0 0.0 - 0.1 K/cumm [facility] Lymphocyte abs 2.5 0.8 - 3.3 K/cumm [facility] Monocyte abs 0.7 0.2 - 0.8 K/cumm [facility] Eosinophil abs 0.2 0.0 - 0.5 K/cumm [facility] Basophil abs 0.1 0.0 - 0.1 K/cumm [facility] Neutrophil pct 57.1 % [facility] Comment: Interpretive Data Percent cell count reference ranges are not reported, since discordance with absolute values may lead to misinterpretation of CBC data. Current Interpretive Data was last revised on 2018. Imm gran pct 0.3 % [facility] Comment: Interpretive Data Percent cell count reference ranges are not reported, since discordance with absolute values may lead to misinterpretation of CBC data. Current Interpretive Data was last revised on 2018. Lymphocyte pct 31.0 % [facility] Comment: Interpretive Data Percent cell count reference ranges are not reported, since discordance with absolute values may lead to misinterpretation of CBC data. Current Interpretive Data was last revised on 2018. Monocyte pct 8.5 % [facility] Comment: Interpretive Data Percent cell count reference ranges are not reported, since discordance with absolute values may lead to misinterpretation of CBC data. Current Interpretive Data was last revised on 2018. Eosinophil pct 2.3 % [facility] Comment: Interpretive Data Percent cell count reference ranges are not reported, since discordance with absolute values may lead to misinterpretation of CBC data. Current Interpretive Data was last revised on 2018. Basophil pct 0.8 % [facility] Comment: Interpretive Data Percent cell count reference ranges are not reported, since discordance with absolute values may lead to misinterpretation of CBC data. Current Interpretive Data was last revised on 2018. Blood 11/08/2024 6:11 AM MINE SHIFTER 11/08/2024 6:15 AM MINE SHIFTER Jaclyn Xavier MD LAB BLOOD ORDERABLES Fin al Result [facility] [address] [facility] Department [place] [address] * Urinalysis reflex to microscopic and culture Urine (11/08/2024 6:11 AM MINE SHIFTER) Color, ur Straw Yellow Clarity, ur Clear Clear [facility] Specific gravity, ur 1.003 1.003 - 1.030 [facility] pH, urine 6.5 [facility] Comment: Interpretive Data ? Urine pH is affected by diet, medications, systemic acid-base disturbances, and renal tubular function. ??pH may affect urinary stone formation. ??For example, urine pH below 6.0 may help reduce the tendency for calcium phosphate stones and pH greater than 6.0 may reduce the tendency for uric acid stone formation. Source: [facility] Current Interpretive Data was last revised on 2017 Protein, ur ql Negative Negative [facility] Glucose, ur ql Negative Negative [facility] Ketones, ur Negative Negative [facility] Bilirubin, ur Negative Negative [facility] Blood, ur Negative Negative [facility] Urobilinogen, ur <2.0 <2.0 mg/dL [facility] Nitrite, ur Negative Negative [facility] Leukocyte esterase, ur Negative Negative [facility] UA reflex comment Reflex conditions for microscopic UA and culture not met. [facility] Urine 11/08/2024 6:11 AM MINE SHIFTER 11/08/2024 6:15 AM MINE SHIFTER Jaclyn Xavier MD LAB MICROBIOLOGY - [facility] AL ORDERABLES Final Result [facility] [address] [facility] Department [place] [address] * CBC with auto differential (11/08/2024 6:11 AM MINE SHIFTER) WBC 8.0 3.8 - 9.9 K/cumm Hgb 14.1 11.9 - 15.5 g/dL [facility] Hct 43.4 35.6 - 45.5 % [facility] Plt 314 150 - 400 K/cumm [facility] MPV 9.2 9.1 - 12.3 fL [facility] RBC 4.92 3.90 - 5.20 M/cumm [facility] MCV 88.2 81.3 - 96.4 fL [facility] MCH 28.7 27.1 - 33.3 pg [facility] MCHC 32.5 32.3 - 35.7 g/dL [facility] RDW CV 12.6 11.1 - 14.9 % [facility] RDW SD 40.3 35.7 - 48.1 fL [facility] NRBC abs 0.00 0.00 - 0.01 K/cumm [facility] Blood (Blood, Venous) 11/08/2024 6:11 AM MINE SHIFTER 11/08/2024 6:15 AM MINE SHIFTER Jaclyn Xavier MD LAB BLOOD ORDERABLES Fin al Result Performing Organization Address City/[facility]/ZIP Co de Phone Number ARI [address] [facility] Department [place] [address] * POCT hCG, urine (11/08/2024 6:10 AM MINE SHIFTER) HCG, ur, POC Negative Negative Lot Number [id number] QC Backgroud Clear Acceptable QC Control Line Acceptable Urine 11/08/2024 6:10 AM MINE SHIFTER Jaclyn Xavier MD POINT OF CARE TEST ORDER KELLEY Final Result * ECG 12 lead (11/03/2024 11:04 PM MINE SHIFTER) 11/03/2024 11:0 4 PM MINE SHIFTER Narrative [facility] - 11/04/2024 2:30 PM MINE SHIFTER Vent Rate: 67 bpm RR Interval: 892 msec [place] Interval: 142 msec QRS Duration: 89 msec QT Interval: 413 msec QTC Interval: 428 msec P-R-T [place]: 25 - 0 - 21 degrees IMPRESSION: SINUS RHYTHM MODERATE VOLTAGE CRITERIA FOR LVH, CONSIDER NORMAL VARIANT ??[MEETS CRITERIA IN ONE OF: R(aVL), S(V1), R(V5), R(V5/V6)+S(V1)] BORDERLINE ECG NO CHANGE FROM PREVIOUS TRACING NOTED Electronically Signed By: Nithin Vaca MD Job James MD ECG ORDERABLES Final Resul t Performing Organization Address City/[facility]/ZIP Co de Phone Number [employer] [facility] * CT Head WO Contrast (11/03/2024 10:53 PM MINE SHIFTER) Anatomical Region Laterality Modality Head and Neck N/A Computed Tomogra phy 11/03/2024 10:5 6 PM MINE SHIFTER Narrative 11/03/2024 10:58 PM MINE SHIFTER EXAM DESCRIPTION: CT HEAD WO CONTRAST REASON [...] PM T: ??11/03/2024 10:58 PM Report ID: [id number] Reading Location: ??[id number] Procedure Note Mike Kirk MD - 11/03/2024 [...] Mike Kirk M.D. AT: AT Report ID: [id number] Reading Location: [id number] Job James MD IMG CT PROCEDURES Final Res ult * Troponin T high-sensitivity 2-hour (11/03/2024 10:46 PM MINE SHIFTER) Trop T hs 7 <=14 ng/L Comment: Interpretive Data For further hscTnT resources including the diagnostic algorithm and an aid in interpretation, copy and paste this link: https://nrl.testcatalog.org/show/hsTrop Current Interpretive Data last revised 2020. Trop T hs delta See Comment ng/L CE RNASIA SHAH (PUERTO REAL) Comment:Inappropriate collec tion time to report a delta. Trop T hs pct delta See Comment % CERJOSE CRUZ SHAH (PUERTO REAL) Comment:Inappropriate collec tion time to report a delta. Trop T hs interp See Comment C ROSITA SHAH (PUERTO REAL) Comment:Inappropriate collec tion time to report a delta. Blood 11/03/2024 10:4 6 PM MINE SHIFTER 11/03/2024 10:50 PM MINE SHIFTER Job James MD LAB BLOOD ORDERABLES Final Result ARRONJOSE CRUZ SHAH (JD) [address] [facility] Department [place] [address] * Pro B-type natriuretic peptide (11/03/2024 10:46 PM MINE SHIFTER) NT-proBNP 51 <=300 pg/mL Comment: Interpretive Comments: [...] Date: 2018. Blood 11/03/2024 10:4 6 PM MINE SHIFTER 11/03/2024 10:50 PM MINE SHIFTER Job James MD LAB BLOOD ORDERABLES Edited Result - Final ARI SHAH (PUERTO REAL) 1 [facility] [place] [address] * Thyroid Function [place] (11/03/2024 10:46 PM MINE SHIFTER) [facility] TSH 1.44 0.30 - 4.20 mcIUnit/mL Blood 11/03/2024 10:4 6 PM MINE SHIFTER 11/03/2024 10:50 PM MINE SHIFTER Job James MD LAB BLOOD ORDERABLES Final Result ARI SHAH (PUERTO REAL) 1 [facility] [place] [address] * (ABNORMAL) Erythrocyte sedimentation rate (11/03/2024 10:46 PM MINE SHIFTER) [facility] Erythrocyte sedimentation rate 29(H) 1 - 20 mm/hr Blood 11/03/2024 10:4 6 PM MINE SHIFTER 11/03/2024 10:50 PM MINE SHIFTER Job James MD LAB BLOOD ORDERABLES Final Result ARI SHAH (PUERTO REAL) 1 [facility] [place] [address] * CRP (acute phase) (11/03/2024 10:46 PM MINE SHIFTER) [facility] CRP <3.0 <=10.0 mg/L Blood 11/03/2024 10:4 6 PM MINE SHIFTER 11/03/2024 10:50 PM MINE SHIFTER Job James MD LAB BLOOD ORDERABLES Final Result ARI SHAH (JD) 1 [facility] [place] [address] * Magnesium (11/03/2024 10:46 PM MINE SHIFTER) [facility] Magnesium 1.8 1.4 - 2.5 mg/dL Blood 11/03/2024 10:4 6 PM MINE SHIFTER 11/03/2024 10:50 PM MINE SHIFTER Job James MD LAB BLOOD ORDERABLES Final Result Performing Organization Address [facility] Co de Phone Number ARI SHAH (PUERTO REAL) 1 [facility] [place] [address] * Creatine kinase (CK), total (11/03/2024 10:46 PM MINE SHIFTER) [facility] CK 69 30 - 200 Units/L Blood 11/03/2024 10:4 6 PM MINE SHIFTER 11/03/2024 10:50 PM MINE SHIFTER Job James MD LAB BLOOD ORDERABLES Final Result Performing Organization Address [facility] de Phone Number ARI SHAH (PUERTO REAL) [address] [place] [address] [place] [address] * Troponin T high-sensitivity series (baseline, 2hr, 4hr, 6hr) (11/03/2024 7:40 PM MINE SHIFTER) [facility] Trop T hs <6 <=14 ng/L Comment: Interpretive Data For further hscTnT resources including the diagnostic algorithm and an aid in interpretation, copy and paste this link: https://nrl.testcatalog.org/show/hsTrop Current Interpretive Data last revised 2020. Blood 11/03/2024 7:40 PM MINE SHIFTER 11/03/2024 7:42 PM MINE SHIFTER Job James MD LAB BLOOD ORDERABLES Final Result Performing Organization Address City/[facility] Co de Phone Number ARI SHAH (JD) 1 [facility] [place] [address] * eGFR (11/03/2024 7:40 PM MINE SHIFTER) [facility] eGFR >90 >=60 mL/min/1. 73 m2 Comment: [...] last reviewed 2021. Blood 11/03/2024 7:40 PM MINE SHIFTER 11/03/2024 7:42 PM MINE SHIFTER us Job James MD LAB BLOOD ORDERABLES Final Result ARI SHAH (PUERTO REAL) [address] [facility] Department [place] [address] * Differential, auto (11/03/2024 7:40 PM MINE SHIFTER) Neutrophil abs 4.3 1.5 - 6.5 K/cumm Imm gran abs 0.0 0.0 - 0.1 K/cumm [facility] (JD) Lymphocyte abs 1.8 0.8 - 3.3 K/cumm [facility] (PUERTO REAL) Monocyte abs 0.5 0.2 - 0.8 K/cumm [...] revised on 2018. Blood 11/03/2024 7:40 PM MINE SHIFTER 11/03/2024 7:42 PM MINE SHIFTER us Job James MD LAB BLOOD ORDERABLES Final Result ARI SHAH (PUERTO REAL) [address] [facility] Department [place] [address] * CBC with auto differential (11/03/2024 7:40 PM MINE SHIFTER) WBC 6.8 3.8 - 9.9 K/cumm Hgb [...] NRBC abs 0.00 0.00 - 0.01 K/cumm [facility] (JD) Blood (Blood, Venous) 11/03/2024 7:40 PM MINE SHIFTER 11/03/2024 7:42 PM MINE SHIFTER us Job James MD LAB BLOOD ORDERABLES Final Result [facility] (JD) [address] [facility] Department [place] [address] * (ABNORMAL) Comprehensive metabolic panel (11/03/2024 7:40 PM MINE SHIFTER) Sodium 139 135 - 145 mmol/L Potassium, pl 3.4 3.3 - 4.9 mmol/L [facility] (JD) Chloride 103 97 - 110 mmol/L [facility] (JD) CO2 25 22 - 32 mmol/L [facility] (JD) Anion gap 11 2 - 15 mmol/L [facility] (JD) BUN 4(L) 6 - 25 mg/dL [facility] (JD) Creatinine 0.54(L) 0.60 - 1.10 mg/dL [facility] (JD) Glucose 104 70 - 199 mg/dL [facility] (JD) Comment: Interpretive Data Fasting glucose [...] classification and Diagnosis of Diabetes Diabetes Care 202; 46: S19-S40. Current interpretive data was last [...] [facility] (JD) Blood 11/03/2024 7:40 PM MINE SHIFTER 11/03/2024 7:42 PM MINE SHIFTER Job James MD LAB BLOOD ORDERABLES Final Result [facility] (JD) [address] [facility] Department [place] [address] * XR Chest 1 Vw Portable (if patient condition/safety warrant portable) (11/03/2024 7:17 PM MINE SHIFTER) Anatomical Region Laterality Modality Body, Chest N/A Computed Radiogr aphy 11/03/2024 7:23 PM MINE SHIFTER Narrative 11/03/2024 7:24 PM MINE SHIFTER EXAM DESCRIPTION: ?? XR CHEST 1 VIEW [...] PM T: ??11/03/2024 7:24 PM Report ID: [id number] Reading Location: ??[id number] Procedure Note Paco Reyes MD - 11/03/2024 [...] Paco Reyes M.D. RB: KESHA Report ID: [id number] Reading Location: [id number] Job James MD IMG XR PROCEDURES Final Res ult * ECG 12 lead (11/03/2024 6:34 PM MINE SHIFTER) 11/03/2024 6:34 PM MINE SHIFTER Narrative [facility] - 11/04/2024 2:30 PM MINE SHIFTER Vent Rate: 89 bpm RR Interval: 668 msec IL Interval: 116 msec QRS Duration: 88 msec QT Interval: 356 msec QTC Interval: 403 msec P-R-T [place]: 19 - 18 - 2 degrees IMPRESSION: SINUS RHYTHM WITH SHORT IL INTERVAL LOW QRS VOLTAGE IN PRECORDIAL LEADS ??[QRS DEFLECTION < 1.0 mV IN CHEST LEADS] POSSIBLE ANTERIOR MYOCARDIAL INFARCTION , OF INDETERMINATE AGE [30 ms Q WAVE IN V3/V4, OR R < 0.2 mV IN V4] ABNORMAL ECG Compared to prior EKG, heart rate has increased Electronically Signed By: Nithin Vaca MD Job James MD ECG ORDERABLES Final Resul t Performing Organization Address City/[facility] Co de Phone Number [facility] * Hepatitis A antibody, IgM Blood (11/02/2024 1:41 PM MINE SHIFTER) Hep A IgM Nonreactive Nonreactive Comment: Interpretive Data: If Hep A IgM Ab is reported as Equivocal, a new sample should be drawn in two weeks for testing. Current interpretive data was last revised on 20. Blood 11/02/2024 1:41 PM MINE SHIFTER 11/02/2024 8:17 PM MINE SHIFTER Trenton Lomeli MD LAB MICROBIOLOGY - GENERAL ORDERABLES Final Result [facility] [address] Department [place] [address] * Cryptosporidium and Giardia antigen assay Stool (11/02/2024 1:41 PM MINE SHIFTER) Giardia Ag Negative Negative Comment:Testing performed by : [facility], [address] [place]., [address] Cryptosporidium Ag Negative Negative ARI CLAY Comment: Interpretive data: Testing performed by the [facility] using an immunoassay that detects Cryptosporidium and Giardia antigens in stool specimens. ??If comprehensive examination for ova and parasites is required, please request Ova and Parasite Examination . Testing performed by: [facility], [address] [place]., [address] Stool 11/02/2024 1:41 PM MINE SHIFTER 11/02/2024 10:22 PM MINE SHIFTER Trenton Lomeli MD LAB MICROBIOLOGY - GENERAL ORDERABLES Final Result [facility] [place] Department [place] [address] * CT Abdomen Pelvis W Contrast (10/28/2024 1:10 PM MINE SHIFTER) Anatomical Region Laterality Modality Body N/A Computed Tomogra phy Historical Provider IMG CT PROCEDURES Final R esult * HM PAP SMEAR (03/19/2021) Historical Provider HEALTH MAINTENANCE Final Result from Last 3 Months or Most Recently Relevant to Health Maintenance [place] Care Teams Publishing Manager Relationship Specialty Start Date End Date Trenton Lomeli MD PCP - General Family Medicine 10/06/21 Neelima Velazquez MD [address] [address] Consulting Physician Gynecology 10/06/21 Maura Wilson MD [address] [place] [address] Consulting Physician Cardiology 06/16/23
--- OUTSIDE RECORDS SUMMARY | 2024-11-08 06:43 | XMS_ITS | Continuity of Care Document ---
Author Organization [facility] [place] [address] [place] [address] [place] [address] Phone Care Team Providers Care Senior Graduate Advisor Name Role Phone [facility] Unavailable Unavail able Ame Hollis Unavailable Unavailable Procedures Procedure Date Vision Sv Frames Purchases SV Poly Carb Sph [place] To +/- 4 010 Contact Lens Hydrophilic, Spherical Medical Tax Eye Exam & Treatment Refraction Office/outpatient Visit, Est Progressive Lens, Polycarb Frames Deluxe Anti-reflective Coating Anti-reflective Coating Frames Deluxe SV Poly Carb Sph +/- 7.12 To +/- 20 D Oc Tax - Medical Vision Svcs Frames Purchases SV Poly Carb Sph [place] To +/- 4 007 Eye Exam & Treatment Refraction Corneal Pachymetry Fundus Photography W/ Report Advance Directives Directive Yes / No Effective Date File Name No Information Encounters Encounter Description Practice Location Reason(s) For Visit Diagnoses Date Provider Providers Copied on Encounter [facility], [address] [place] [address] [address], [place], [place], [id number], [place] tel:[phone] [facility] No Information 2-201 0 [facility] . [address] [facility], [address], [place], [place], [id number], [place]. tel:[phone] Referring Provider: Deric Downey OD A, [address], [place], [address]. tel:[phone] g Provider: Ame Hollis, [address] [place], [address]. tel:[phone] [facility], [address], [place], [place], [id number], [place] tel:[phone] [facility] No Information 1-201 0 Downey OD Deric. [address] [facility] , [address], [place], [address], [place]. tel:[phone] [facility], [address], [place], [place], [id number], [place] tel:[phone] [facility] No Information 3-201 0 Downey OD Deric. [address] [facility] [facility] , [address], [place], [address], [place]. tel:[phone] Office/outpat ient Visit, Est [facility], [address], [place], [place], [id number], [place] tel:[phone] [facility] No Information Dec-2 3-[address] [facility] , [address], [place], [address], [place]. tel:[phone] [facility], [address], [place], [place], [address], [place] tel:[phone] [facility] No Information Dec-2 3-200 9 [facility] . [address] [facility], [address], [place], [place], [id number], [place]. tel:[phone] Referring Provider: Juan Pablo Washington, [address], [place], [address]. tel:[phone] marco Provider: Sissy Enriquez, [address] [place], [address]. tel:[phone] [facility], [address], [place], [place], [id number], [place] tel:[phone] [facility] No Information 9-200 7 [facility] . [address] [facility], [address], [place], [id number], [place]. tel:[phone] Consulting Provider: Sissy Enriquez, [address] [place] [address], [address]. tel:[phone] [facility], [address], [place], [place], [id number], [place] tel:[phone] [facility] No Information 2-200 7 [facility] . [address] [facility], [address], [place], [place], [id number], [place]. tel:[phone] Referring Provider: Juan Pablo Washington, [address] [address], [place], [address]. tel:[phone] g Provider: Ame Hollis, [address] [place], [address]. tel:[phone] [facility], [address], [place], [place], [id number], [place] tel:[phone] [facility] No Information 8-200 7 Bla[address] Almeida. [address] , [address], [place], [address], [place]. tel:[phone] Referring Provider: Juan Pablo Washington, [address] [address], [place], [address]. tel:[phone] Family History Family Member Type Diagnosis Age At Onset No Information Payers Payer name Insurance type Covered green party ID Authoriza tion(s) No Information Social History [...]
--- OUTSIDE RECORDS SUMMARY | 2024-11-08 06:43 | XMS_ITS | Encounter Summary ---
Author Organization [facility] Address [address] [place] [address] Care Team Providers Care Salesperson Wigs Name Role Phone Trenton Lomeli MD Primary Care Provider [phone] Neelima Velazquez MD Unavailable [phone] Maura Wilson MD Unavailable Reason for Referral * MRI/CAT/PET Scan (Routine) - Closed Specialty Diagnoses / Procedures Referred By Contac t Referred To Contact Radiology Procedures CT Abdomen Pelvis W Contrast Misael Palacios MD [address] [place] [address] Phone: tel: Referral ID Status Reason Start Date Expiration Date Visits Re quested Visits Authorized [id number] Closed 10/30/2024 11/29/2025 1 1 SORY INTERN Encounter Details Date Type Department Care Team (Late st Contact Info) Description 10/30/2024 Orders Only [facility] Primary Care at [address] [address] Misael Palacios MD [address] [place] [address] Social History Tobacco Use Types Packs/Day Years [...] on file Legal Sex Female 4:15 AM ADVISORY INTERN Gender Identity Not on file Sexual Orientation Not on file 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 Not on file Not on file documented as of this encounter Plan of Treatment Not on file documented as of this encounter Procedures Procedure Name Priority Date/Time Associated Diagnosis Comments CT ABDOMEN PELVIS W CONTRAST Schedule Routine, Read Routine (OP Routine) 10/28/2024 1:10 PM ADVISORY INTERN documented in this encounter Results * CT Abdomen Pelvis W Contrast (10/28/2024 1:10 PM ADVISORY INTERN) Anatomical Region Laterality Modality Body N/A Computed Tomogra phy Historical Provider MD [place] CT PROCEDURES Final R esult documented in this encounter Visit Diagnoses Not on filedocumented in this encounter Care Teams Salesperson Wigs Relationship Specialty Start Date End Date Trenton Lomeli MD PCP - General Family Medicine 10/06/21 Neelima Velazquez MD [address] [address] Consulting Physician Gynecology 10/06/21 Maura Wilson MD [address] [place] [address] Consulting Physician Cardiology 06/16/23 documented as of this encounter
--- OUTSIDE RECORDS SUMMARY | 2024-11-08 06:43 | XMS_ITS | Referral Summary ---
Author Organization [facility] Address [address] [place] [address] Care Team Providers Care Business Planning Director Name Role Phone Trenton Lomeli MD Primary Care Provider [phone] Neelima Velazquez MD Unavailable [phone] Maura Wilson MD Unavailable [phone] Encounters Date Type Department Care Team Description 11/08/2024 5:57 AM PLACEMENT ASSISTANT - Present Emergency [address] [address] 11/06/2024 Telephone [facility] Medical [facility] Primary Care at [address] [phone] Trenton Lomeli MD Medical Question/Miscellaneous 11/06/2024 10:30 AM PLACEMENT ASSISTANT Telemedicine [facility] Medical [facility] Primary Care at [address] [phone] Trenton Lomeli MD Irritable bowel syndrome with diarrhea (Primary Dx) 11/03/2024 10:04 PM PLACEMENT ASSISTANT - 11/04/2024 12:14 AM PLACEMENT ASSISTANT Emergency [facility] Emergency Department [address] [place] [address] Job James MD Sleep disturbance (Primary Dx); Chronic abdominal pain Discharge Disposition: Discharge to home or self care 11/03/2024 Orders Only [facility] Medical Group Primary Care at [address] [phone] Tretnon Lomeli MD 11/03/2024 Nurse Triage [facility] Primary Care at [address] [phone] Trenton Lomeli MD 11/03/2024 Nurse Triage [facility] Primary Care at [address] [phone] Angela Kumar RN 11/02/2024 1:41 PM PLACEMENT ASSISTANT - 11/02/2024 11:59 PM PLACEMENT ASSISTANT Hospital Encounter [address] [address] Diarrhea of presumed infectious origin Discharge Disposition: Discharge to home or self care 11/02/2024 3:00 PM PLACEMENT ASSISTANT Lab [facility] Outpatient Lab at [address] [phone] 11/02/2024 1:45 PM PLACEMENT ASSISTANT Lab [facility] Outpatient Lab at [address] [phone] Hypercholesterolemia (Primary Dx) 11/02/2024 1:15 PM PLACEMENT ASSISTANT Office Visit [facility] Primary Care at [address] [phone] Trenton Lomeli MD Diarrhea of presumed infectious origin (Primary Dx) 10/30/2024 Nurse Triage [facility] Primary Care at [address] [phone] Trenton Lomeli MD 10/30/2024 Orders Only [facility] Primary Care at [address] [phone] ProviderMisael MD from Last 3 Months Allergies Active Allergy [...] 11/09/2022 Assessment & Plan (11/09/2022 4:02 PM PLACEMENT ASSISTANT): BMI Follow-up includes: nutrition counseling, exercise counseling and education provided. Body mass index (BMI) 45.0-49.9, adult 3 Well adult exam 10/08/2021 Assessment & Plan (11/10/2022 2:28 PM PLACEMENT ASSISTANT): A(n) yearly well adult visit has been [...] prn Assessment & Plan (10/08/2021 2:57 PM PLACEMENT ASSISTANT): A initial well visit to establish care [...] 7 Assessment & Plan (11/06/2024 11:14 AM PLACEMENT ASSISTANT): IBS vs infectious (prolonged effect of viral gastoenteritis? 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 Not on file Not on file Not on file Last Filed Vital Signs Vital Sign Reading Time Taken Comments Blood Pressure 156/96 11/08/2024 6:06 AM PLACEMENT ASSISTANT Pulse 90 11/08/2024 6:06 AM PLACEMENT ASSISTANT Temperature 36.8 ??C (98.3 ??F) 11/08/2024 6:06 AM CS T Respiratory Rate 19 11/08/2024 6:06 AM PLACEMENT ASSISTANT Oxygen Saturation 98% 11/08/2024 6:06 AM PLACEMENT ASSISTANT Inhaled Oxygen Concentration - - Weight 117.9 kg (260 lb) 11/08/2024 6:06 AM PLACEMENT ASSISTANT Height 170.2 cm (5' 7 ) 11/08/2024 6:06 AM PLACEMENT ASSISTANT Body Mass Index 40.72 11/08/2024 6:06 AM PLACEMENT ASSISTANT Plan of Treatment Not on file Procedures * The patient is currently admitted. The information in this section might not be complete until the patient is discharged. Procedure Name Priority Date/Time Associated Diagnosis Comments XR CHEST 1 VIEW ED 11/08/2024 6:18 AM PLACEMENT ASSISTANT DIFFERENTIAL AUTO STAT 11/08/2024 6:1 1 AM PLACEMENT ASSISTANT CBC WITH AUTO DIFFERENTIAL STAT 11/08/2024 6:11 AM PLACEMENT ASSISTANT URINALYSIS AND REFLEX TO MICROSCOPIC AND CULTURE STAT 11/08/2024 6:11 AM PLACEMENT ASSISTANT POCT HCG, URINE Routine 11/08/2024 6:10 AM PLACEMENT ASSISTANT ECG 12-LEAD Routine 11/03/2024 11:[address] HEAD WO CONTRAST ED 11/03/2024 1 0:53 PM PLACEMENT ASSISTANT MAGNESIUM Routine 11/03/2024 10:46 PM PLACEMENT ASSISTANT THYROID FUNCTION CASCADE Add-On 11/03/2024 10:46 PM PLACEMENT ASSISTANT ERYTHROCYTE SEDIMENTATION RATE STAT 11/03/2024 10:46 PM PLACEMENT ASSISTANT CREATINE KINASE (CK), TOTAL STAT 11/03/2024 10:46 PM PLACEMENT ASSISTANT PRO B-TYPE NATRIURETIC PEPTIDE STAT 11/03/2024 10:46 PM PLACEMENT ASSISTANT CRP (ACUTE PHASE) STAT 11/03/2024 10: 46 PM PLACEMENT ASSISTANT TROPONIN T HIGH-SENSITIVITY 2-HOUR Timed 11/03/2024 10:46 PM PLACEMENT ASSISTANT EGFR STAT 11/03/2024 7:40 PM PLACEMENT ASSISTANT DIFFERENTIAL AUTO STAT 11/03/2024 7:4 0 PM PLACEMENT ASSISTANT TROPONIN T HIGH-SENSITIVITY SERIES (BASELINE, 2HR, 4HR, 6HR) STAT 11/03/2024 7:40 PM PLACEMENT ASSISTANT COMPREHENSIVE METABOLIC PANEL STAT 11/03/2024 7:40 PM PLACEMENT ASSISTANT CBC WITH AUTO DIFFERENTIAL STAT 11/03/2024 7:40 PM PLACEMENT ASSISTANT XR CHEST 1 VIEW ED 11/03/2024 7:17 PM PLACEMENT ASSISTANT ECG 12-LEAD STAT 11/03/2024 6:34 PM PLACEMENT ASSISTANT CRYPTOSPORIDIUM AND GIARDIA ANTIGEN ASSAY Routine 11/02/2024 1:41 PM PLACEMENT ASSISTANT Diarrhea of presumed infectious origin HEPATITIS A ANTIBODY, IGM Routine 11/02/2024 1:41 PM PLACEMENT ASSISTANT Diarrhea of presumed infectious origin CT ABDOMEN PELVIS W CONTRAST Schedule Routine, Read Routine (OP Routine) 10/28/2024 1:10 PM PLACEMENT ASSISTANT HM PAP SMEAR Routine 03/19/2021 from Last 3 Months or Most Recently Relevant to Health Maintenance Results * XR Chest 1 Vw Portable (if patient condition/safety warrant portable) (11/08/2024 6:18 AM PLACEMENT ASSISTANT) Anatomical Region Laterality Modality Body, Chest N/A Computed Radiogr aphy 11/08/2024 6:27 AM PLACEMENT ASSISTANT Narrative 11/08/2024 6:29 AM PLACEMENT ASSISTANT EXAM DESCRIPTION: ?? XR CHEST 1 VIEW REASON FOR STUDY: ?? chest pain ?? BIBEMS from home having chest discomfort for a week, non radiating, pressure like pain and SI without any plan. Was seen 3 days ago at [facility] and cardiac work up done. No heart [...] D: ??11/08/2024 6:29 AM T: Report ID: [id number] Reading Location: ??[id number] Procedure Note Gillian Stokes MD - 11/08/2024 EXAM DESCRIPTION: XR CHEST 1 VIEW REASON FOR STUDY: chest pain BIBEMS from home having chest discomfort for a week, non radiating,pressure like pain and SI without any plan. Was seen 3 days ago at [facility] and cardiac work up done. No heart [...] Gillian Stokes M.D. SN T: Report ID: [id number] Reading Location: [place] [address] Jaclyn Xavier MD IMG XR PROCEDURES Final Result * Differential, auto (11/08/2024 6:11 AM PLACEMENT ASSISTANT) Pathologist [facility] Neutrophil abs 4.6 1.5 - 6.5 K/cumm Imm gran abs 0.0 0.0 - 0.1 K/cumm [facility] Lymphocyte abs 2.5 0.8 - 3.3 K/cumm [facility] Monocyte abs 0.7 0.2 - 0.8 K/cumm [facility] Eosinophil abs 0.2 0.0 - 0.5 K/cumm [facility] Basophil abs 0.1 0.0 - 0.1 K/cumm [facility] Neutrophil pct 57.1 % [facility] Comment: Interpretive Data Percent cell count reference ranges are not reported, since discordance with absolute values may lead to misinterpretation of CBC data. Current Interpretive Data was last revised on 2018. Imm gran pct 0.3 % [facility] Comment: Interpretive Data Percent cell count reference ranges are not reported, since discordance with absolute values may lead to misinterpretation of CBC data. Current Interpretive Data was last revised on 2018. Lymphocyte pct 31.0 % [facility] Comment: Interpretive Data Percent cell count reference ranges are not reported, since discordance with absolute values may lead to misinterpretation of CBC data. Current Interpretive Data was last revised on 2018. Monocyte pct 8.5 % [facility] Comment: Interpretive Data Percent cell count reference ranges are not reported, since discordance with absolute values may lead to misinterpretation of CBC data. Current Interpretive Data was last revised on 2018. Eosinophil pct 2.3 % [facility] Comment: Interpretive Data Percent cell count reference ranges are not reported, since discordance with absolute values may lead to misinterpretation of CBC data. Current Interpretive Data was last revised on 2018. Basophil pct 0.8 % [facility] Comment: Interpretive Data Percent cell count reference ranges are not reported, since discordance with absolute values may lead to misinterpretation of CBC data. Current Interpretive Data was last revised on 2018. Blood 11/08/2024 6:11 AM PLACEMENT ASSISTANT 11/08/2024 6:15 AM PLACEMENT ASSISTANT us Jaclyn Xavier MD LAB BLOOD ORDERABLES Fin al Result [facility] [address] [facility] [place] [address] * Urinalysis reflex to microscopic and culture Urine (11/08/2024 6:11 AM PLACEMENT ASSISTANT) Color, ur Straw Yellow Clarity, ur Clear Clear [facility] Specific gravity, ur 1.003 1.003 - 1.030 [facility] pH, urine 6.5 [facility] Comment: Interpretive Data ? Urine pH is affected by diet, medications, systemic acid-base disturbances, and renal tubular function. ??pH may affect urinary stone formation. ??For example, urine pH below 6.0 may help reduce the tendency for calcium phosphate stones and pH greater than 6.0 may reduce the tendency for uric acid stone formation. Source: [facility] Current Interpretive Data was last revised on 2017 Protein, ur ql Negative Negative [facility] Glucose, ur ql Negative Negative [facility] Ketones, ur Negative Negative [facility] Bilirubin, ur Negative Negative [facility] Blood, ur Negative Negative [facility] Urobilinogen, ur <2.0 <2.0 mg/dL [facility] Nitrite, ur Negative Negative [facility] Leukocyte esterase, ur Negative Negative [facility] UA reflex comment Reflex conditions for microscopic UA and culture not met. [facility] Urine 11/08/2024 6:11 AM PLACEMENT ASSISTANT 11/08/2024 6:15 AM PLACEMENT ASSISTANT Jaclyn Xavier MD LAB MICROBIOLOGY - GENER AL ORDERABLES Final Result Performing Organization Address [facility] Co de Phone Number ARI [address] [place] [address] * CBC with auto differential (11/08/2024 6:11 AM PLACEMENT ASSISTANT) WBC 8.0 3.8 - 9.9 K/cumm Hgb 14.1 11.9 - 15.5 g/dL [facility] Hct 43.4 35.6 - 45.5 % [facility] Plt 314 150 - 400 K/cumm [facility] MPV 9.2 9.1 - 12.3 fL [facility] RBC 4.92 3.90 - 5.20 M/cumm [facility] MCV 88.2 81.3 - 96.4 fL [facility] MCH 28.7 27.1 - 33.3 pg [facility] MCHC 32.5 32.3 - 35.7 g/dL [facility] RDW CV 12.6 11.1 - 14.9 % [facility] RDW SD 40.3 35.7 - 48.1 fL [facility] NRBC abs 0.00 0.00 - 0.01 K/cumm [facility] Blood (Blood, Venous) 11/08/2024 6:11 AM PLACEMENT ASSISTANT 11/08/2024 6:15 AM PLACEMENT ASSISTANT Jaclyn Xavier MD LAB BLOOD ORDERABLES Fin al Result Performing Organization Address [facility] Co de Phone Number ARI [address] [place] [address] * POCT hCG, urine (11/08/2024 6:10 AM PLACEMENT ASSISTANT) HCG, ur, POC Negative Negative Lot Number [id number] QC Backgroud Clear Acceptable QC Control Line Acceptable Urine 11/08/2024 6:10 AM PLACEMENT ASSISTANT Jaclyn Xavier MD POINT OF CARE TEST ORDER KELLEY Final Result * ECG 12 lead (11/03/2024 11:04 PM PLACEMENT ASSISTANT) 11/03/2024 11:0 4 PM PLACEMENT ASSISTANT Narrative [facility] ED - 11/04/2024 2:30 PM PLACEMENT ASSISTANT Vent Rate: 67 bpm RR Interval: 892 msec NE Interval: 142 msec QRS Duration: 89 msec QT Interval: 413 msec QTC Interval: 428 msec P-R-T Willits: 25 - 0 - 21 degrees IMPRESSION: SINUS RHYTHM MODERATE VOLTAGE CRITERIA FOR LVH, CONSIDER NORMAL VARIANT ??[MEETS CRITERIA IN ONE OF: R(aVL), S(V1), R(V5), R(V5/V6)+S(V1)] BORDERLINE ECG NO CHANGE FROM PREVIOUS TRACING NOTED Electronically Signed By: Nithin Vaca MD Job James MD ECG ORDERABLES Final Resul t [facility] * CT Head WO Contrast (11/03/2024 10:53 PM PLACEMENT ASSISTANT) Anatomical Region Laterality Modality Head and Neck N/A Computed Tomogra phy 11/03/2024 10:5 6 PM PLACEMENT ASSISTANT Narrative 11/03/2024 10:58 PM PLACEMENT ASSISTANT EXAM DESCRIPTION: CT HEAD WO CONTRAST REASON [...] PM T: ??11/03/2024 10:58 PM Report ID: [id number] Reading Location: ??[id number] Procedure Note Mike Kirk MD - 11/03/2024 [...] Mike Kirk M.D. AT: AT Report ID: [id number] Reading Location: [id number] us Job James MD IMG CT PROCEDURES Final Res ult * Troponin T high-sensitivity 2-hour (11/03/2024 10:46 PM PLACEMENT ASSISTANT) Trop T hs 7 <=14 ng/L Comment: Interpretive Data For further hscTnT resources including the diagnostic algorithm and an aid in interpretation, copy and paste this link: https://nrl.testcatalog.org/show/hsTrop Current Interpretive Data last revised 2020. Trop T hs delta See Comment ng/L CE MAIRA SHAH (CECIL) Comment:Inappropriate collec tion time to report a delta. Trop T hs pct delta See Comment % ARI SHAH (CECIL) Comment:Inappropriate collec tion time to report a delta. Trop T hs interp See Comment C ROSITA SHAH (CECIL) Comment:Inappropriate collec tion time to report a delta. Blood 11/03/2024 10:4 6 PM PLACEMENT ASSISTANT 11/03/2024 10:50 PM PLACEMENT ASSISTANT us Job James MD LAB BLOOD ORDERABLES Final Result ARI ALYSSA (CECIL) [address] [facility] Department [place] [address] * Pro B-type natriuretic peptide (11/03/2024 10:46 PM PLACEMENT ASSISTANT) NT-proBNP 51 <=300 pg/mL Comment: Interpretive Comments: [...] as advanced age. - References: 1. Minoo JL et.al. Eur Heart J. 2006:27:330-337. 2. Liu RW, Magui WILKINS. J. AM Sully Cardiol: Cardiovasc Imag. 2009;2: 216- 225. Interpretive Data Last Revised Date: 2018. Blood 11/03/2024 10:4 6 PM PLACEMENT ASSISTANT 11/03/2024 10:50 PM PLACEMENT ASSISTANT us Job James MD LAB BLOOD ORDERABLES Edited Result - Final ARRONJAZ XUA (CECIL) [address] [facility] Department [place] [address] * Thyroid Function [place] (11/03/2024 10:46 PM PLACEMENT ASSISTANT) TSH 1.44 0.30 - 4.20 mcIUnit/mL Blood 11/03/2024 10:4 6 PM PLACEMENT ASSISTANT 11/03/2024 10:50 PM PLACEMENT ASSISTANT Job James MD LAB BLOOD ORDERABLES Final Result ARI SHAH (JD) [address] [facility] [place] [address] * (ABNORMAL) Erythrocyte sedimentation rate (11/03/2024 10:46 PM PLACEMENT ASSISTANT) Erythrocyte sedimentation rate 29(H) 1 - 20 mm/hr Blood 11/03/2024 10:4 6 PM PLACEMENT ASSISTANT 11/03/2024 10:50 PM PLACEMENT ASSISTANT us Job James MD LAB BLOOD ORDERABLES Final Result Performing Organization Address [facility] Co de Phone Number ARI SHAH (CECIL) [address] [facility] [place] [address] * CRP (acute phase) (11/03/2024 10:46 PM PLACEMENT ASSISTANT) CRP <3.0 <=10.0 mg/L Blood 11/03/2024 10:4 6 PM PLACEMENT ASSISTANT 11/03/2024 10:50 PM PLACEMENT ASSISTANT us Job James MD LAB BLOOD ORDERABLES Final Result ARI SHAH (CECIL) [address] [facility] [place] [address] * Magnesium (11/03/2024 10:46 PM PLACEMENT ASSISTANT) Magnesium 1.8 1.4 - 2.5 mg/dL Blood 11/03/2024 10:4 6 PM PLACEMENT ASSISTANT 11/03/2024 10:50 PM PLACEMENT ASSISTANT Job James MD LAB BLOOD ORDERABLES Final Result ARI SHAH (CECIL) [address] [facility] [place] [address] * Creatine kinase (CK), total (11/03/2024 10:46 PM PLACEMENT ASSISTANT) [facility] CK 69 30 - 200 Units/L Blood 11/03/2024 10:4 6 PM PLACEMENT ASSISTANT 11/03/2024 10:50 PM PLACEMENT ASSISTANT Job James MD LAB BLOOD ORDERABLES Final Result Performing Organization Address [facility] de Phone Number ARI SHAH (CECIL) [address] [facility] [place] [address] * Troponin T high-sensitivity series (baseline, 2hr, 4hr, 6hr) (11/03/2024 7:40 PM PLACEMENT ASSISTANT) [facility] Trop T hs <6 <=14 ng/L Comment: Interpretive Data For further hscTnT resources including the diagnostic algorithm and an aid in interpretation, copy and paste this link: https://nrl.testcatalog.org/show/hsTrop Current Interpretive Data last revised 2020. Blood 11/03/2024 7:40 PM PLACEMENT ASSISTANT 11/03/2024 7:42 PM PLACEMENT ASSISTANT us Job James MD LAB BLOOD ORDERABLES Final Result Performing Organization Address [facility] Co de Phone Number [facility] (CECIL) [address] [facility] [place] [address] * eGFR (11/03/2024 7:40 PM PLACEMENT ASSISTANT) [facility] eGFR >90 >=60 mL/min/1. 73 m2 Comment: [...] last reviewed 2021. Blood 11/03/2024 7:40 PM PLACEMENT ASSISTANT 11/03/2024 7:42 PM PLACEMENT ASSISTANT Job James MD LAB BLOOD ORDERABLES Final Result [facility] (CECIL) [address] [facility] Department [place] [address] * Differential, auto (11/03/2024 7:40 PM PLACEMENT ASSISTANT) Neutrophil abs 4.3 1.5 - 6.5 K/cumm [...] revised on 2018. Blood 11/03/2024 7:40 PM PLACEMENT ASSISTANT 11/03/2024 7:42 PM PLACEMENT ASSISTANT us Job James MD LAB BLOOD ORDERABLES Final Result [facility] (JD) [address] [facility] Department [place] [address] * CBC with auto differential (11/03/2024 7:40 PM PLACEMENT ASSISTANT) WBC 6.8 3.8 - 9.9 K/cumm Hgb 12.9 11.9 - 15.5 g/dL [facility] (JD) Hct 38.7 35.6 - 45.5 % [facility] (JD) Plt 280 150 - 400 K/cumm [facility] (JD) MPV 9.3 9.1 - 12.3 fL [facility] (JD) RBC 4.41 3.90 - 5.20 M/cumm [facility] (JD) MCV 87.8 81.3 - 96.4 fL [facility] (JD) MCH 29.3 27.1 - 33.3 pg [facility] (JD) MCHC 33.3 32.3 - 35.7 g/dL [facility] (JD) RDW CV 12.3 11.1 - 14.9 % [facility] (JD) RDW SD 39.8 35.7 - 48.1 fL [facility] (JD) NRBC abs 0.00 0.00 - 0.01 K/cumm [facility] (JD) Blood (Blood, Venous) 11/03/2024 7:40 PM PLACEMENT ASSISTANT 11/03/2024 7:42 PM PLACEMENT ASSISTANT us Job James MD LAB BLOOD ORDERABLES Final Result [facility] (JD) [address] [facility] Department [place] [address] * (ABNORMAL) Comprehensive metabolic panel (11/03/2024 7:40 PM PLACEMENT ASSISTANT) Sodium 139 135 - 145 mmol/L Potassium, pl 3.4 3.3 - 4.9 mmol/L [facility] (JD) Chloride 103 97 - 110 mmol/L [facility] (JD) CO2 25 22 - 32 mmol/L [facility] (JD) Anion gap 11 2 - 15 mmol/L [facility] (JD) BUN 4(L) 6 - 25 mg/dL [facility] (JD) Creatinine 0.54(L) 0.60 - 1.10 mg/dL [facility] (JD) Glucose 104 70 - 199 mg/dL [facility] (JD) Comment: Interpretive Data [...] [facility] (JD) Blood 11/03/2024 7:40 PM PLACEMENT ASSISTANT 11/03/2024 7:42 PM PLACEMENT ASSISTANT Job James MD LAB BLOOD ORDERABLES Final Result [facility] (JD) [address] [facility] Department [place] [address] * XR Chest 1 Vw Portable (if patient condition/safety warrant portable) (11/03/2024 7:17 PM PLACEMENT ASSISTANT) Anatomical Region Laterality Modality Body, Chest N/A Computed Radiogr aphy 11/03/2024 7:23 PM PLACEMENT ASSISTANT Narrative 11/03/2024 7:24 PM PLACEMENT ASSISTANT EXAM DESCRIPTION: ?? XR CHEST 1 VIEW [...] PM T: ??11/03/2024 7:24 PM Report ID: [id number] Reading Location: ??[id number] Procedure Note Paco Reyes MD - 11/03/2024 [...] Paco Reyes M.D. RB: KESHA Report ID: [id number] Reading Location: [id number] us Job James MD IMG XR PROCEDURES Final Res ult * ECG 12 lead (11/03/2024 6:34 PM PLACEMENT ASSISTANT) 11/03/2024 6:34 PM PLACEMENT ASSISTANT Narrative [facility] - 11/04/2024 2:30 PM PLACEMENT ASSISTANT Vent Rate: 89 bpm RR Interval: 668 msec NE Interval: 116 msec QRS Duration: 88 msec QT Interval: 356 msec QTC Interval: 403 msec P-R-T Willits: 19 - 18 - 2 degrees IMPRESSION: SINUS RHYTHM WITH SHORT NE INTERVAL LOW QRS VOLTAGE IN PRECORDIAL LEADS ??[QRS DEFLECTION < 1.0 mV IN CHEST LEADS] POSSIBLE ANTERIOR MYOCARDIAL INFARCTION , OF INDETERMINATE AGE [30 ms Q WAVE IN V3/V4, OR R < 0.2 mV IN V4] ABNORMAL ECG Compared to prior EKG, heart rate has increased Electronically Signed By: Nithin Vaca MD us Job James MD ECG ORDERABLES Final Resul t [employer] [employer] [facility] * Hepatitis A antibody, IgM Blood (11/02/2024 1:41 PM PLACEMENT ASSISTANT) Hep A IgM Nonreactive Nonreactive Comment: Interpretive Data: If Hep A IgM Ab is reported as Equivocal, a new sample should be drawn in two weeks for testing. Current interpretive data was last revised on 20. Blood 11/02/2024 1:41 PM PLACEMENT ASSISTANT 11/02/2024 8:17 PM PLACEMENT ASSISTANT us Trenton Lomeli MD LAB MICROBIOLOGY - GENERAL ORDERABLES Final Result ARI [address] [facility] Department [place] [address] * Cryptosporidium and Giardia antigen assay Stool (11/02/2024 1:41 PM PLACEMENT ASSISTANT) Giardia Ag Negative Negative Comment:Testing performed by : [facility], [address] [facility] [place] [address] Cryptosporidium Ag Negative Negative ARI CLAY Comment: Interpretive data: Testing performed by the [facility] Microbiology Laboratory using an immunoassay that detects Cryptosporidium and Giardia antigens in stool specimens. ??If comprehensive examination for ova and parasites is required, please request Ova and Parasite Examination . Testing performed by: [facility], [address] [facility] [place]., [address] Stool 11/02/2024 1:41 PM PLACEMENT ASSISTANT 11/02/2024 10:22 PM PLACEMENT ASSISTANT us Trenton Lomeli MD LAB MICROBIOLOGY - GENERAL ORDERABLES Final Result Performing Organization Address City/State/ZIP [place] Phone Number ARI [place] [address] Department [place] [address] * CT Abdomen Pelvis W Contrast (10/28/2024 1:10 PM PLACEMENT ASSISTANT) Anatomical Region Laterality Modality Body N/A Computed Tomogra phy us Historical Provider IMG CT PROCEDURES Final R esult * HM PAP SMEAR (03/19/2021) Historical Provider HEALTH MAINTENANCE Final Result from Last 3 Months or Most Recently Relevant to Health Maintenance [place] Care Teams Business Planning Director Relationship Specialty Start Date End Date Trenton Lomeli MD PCP - General Family Medicine 10/06/21 Neelima Velazquez MD [address] [address] Consulting Physician Gynecology 10/06/21 Maura Wilson MD [address] [place] [address] Consulting Physician Cardiology 06/16/23
--- OUTSIDE RECORDS SUMMARY | 2024-11-08 06:43 | XMS_ITS | Encounter Summary ---
Author Organization [facility] Healthcare Address [address] [place] [address] Care Team Providers Care An/Syq 13 Nav/C2 Operator Name Role Phone Trenton Lomeli MD Primary Care Provider [phone] Neelima Velazquez MD Unavailable [phone] Maura Wilson MD Unavailable [phone] Reason for Visit * Reason Onset Date Comments Abdominal Pain 10/30/2024 Encounter Details Date Type Department Care Team (Late st Contact Info) Description 10/30/2024 Nurse Triage [facility] Medical Group Primary Care at [address] [address] Trenton Lomeli MD [address] [place] [address] [address] [place] [address] Social History Tobacco Use Types [...] on file Legal Sex Female 4:15 AM PRODUCT PICKER Gender Identity Not on file Sexual Orientation Not on file 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 No answer let VM to call back, UCT PICKER * Telephone Encounter - Itzel Harding RN - 10/30/2024 2:38 PM CST Reason for Disposition Message left on unidentified voice mail. Phone number verified. Protocols used: No Contact or Duplicate Contact [id number] Attempted to reach patient calling with 3 week history of abdominal pain. Message left for patient to call office at earliest convenience. Call with be closed by cylinder filler. FYI- patient calling with abdominal pain for 3 weeks and 10 pound weight loss. Unable to reach. Patient wanting to be seen in the office. UCT PICKER * Telephone Encounter - Itzel Harding RN - 10/30/2024 2:12 PM CST Regarding: Abdominal Pain, mild ----- Message from Tram Joseph sent at 10/30/2024 10:20 AM PRODUCT PICKER ----- Symptom Based Call Chief Complaint(s): Abdominal Pain, mild Duration: 3 weeks go What type of symptom(s) is the patient experiencing? Non-Emergent. Is this a new or reoccurring symptom(s)? New What have you tried to help your symptom(s)? Omeprazole and Pepcid and not helping. Why was appointment not scheduled? Appointment availability did not meet the patient's need. Patient would like to be seen for follow up but none available within a week with PCP or Care Team. Additional Comments: Patient unable to eat and has lost 10 pounds past 3 weeks. Patient was seen [facility] emergency room on 10/26/24 and 10/28/24 and had cat scan done. Patient is worriedas unable to eat. Patient has increased anxiety and stress and is also on menstrual cycle. Patient has had diarrhea with blueberry color, not tarry or black. Patient has nausea, no vomiting. Patient r eally worried as having weight loss and worried more is going on. Does message need to be routed? Yes-Action Needed UCT PICKER documented in this encounter Plan of Treatment Not on file documented as of this encounter Visit Diagnoses Not on filedocumented in this encounter Care Teams An/Syq 13 Nav/C2 Operator Relationship Specialty Start Date End Date Trenton Lomeli MD PCP - General Family Medicine 10/06/21 Neelima Velazquez MD [address] [facility] [address] [place] [address] Consulting Physician Gynecology 10/06/21 Maura Wilson MD [address] [place] [address] Consulting Physician Cardiology 06/16/23 documented as of this encounter
--- OUTSIDE RECORDS SUMMARY | 2024-11-08 06:44 | XMS_ITS | Encounter Summary ---
Author Organization [facility] Address [address] [place] [address] Phone Care Team Providers Care Credit Union Teller Name Role Phone Sergo Mackey MD Primary Care Provider [phone] Trenton Lomeli MD Primary Care Provider [phone] Neelima Velazquez MD Unavailable [phone] Maura Wilson MD Unavailable [phone] Encounter Details Date Type Department Care [...] on file Legal Sex Female 4:15 AM CITY DETECTIVE Gender Identity Not on file Sexual Orientation [...] COVID: Suspected 10/03/2022 10/03/2022 10/03/2022 1:05 PM CITY DETECTIVE COVID: Suspected 10/22/2022 10/22/2022 10/22/2022 5:32 PM CITY DETECTIVE documented as of this encounter Care Teams Credit Union Teller Relationship Specialty Start Date End Date Sergo Mackey MD [address] [place] [address] PCP - General 08/05/17 10/05/21 Trenton Lomeli MD [address] [place] [address] PCP - General Family Medicine 10/06/21 Neelima Velazquez MD [address] [address] Consulting Physician Gynecology 10/06/21 Maura Wilson MD [address] [place] [address] Consulting Physician Cardiology 06/16/23 documented as of this encounter
--- OUTSIDE RECORDS SUMMARY | 2024-11-08 06:44 | XMS_ITS | Encounter Summary ---
Author Organization [facility] Healthcare Address [address] [place] [address] Care Team Providers Care Cadworx Piping Designer Name Role Phone Trenton Lomeli MD Primary Care Provider [phone] Neelima Velazquez MD Unavailable [phone] Maura Wilson MD Unavailable [phone] Reason for Referral * Diagnostic Imaging (Routine) - Closed Specialty Diagnoses / Procedures Referred By Judi mars Referred To Contact Diagnoses Class 3 severe obesity due to excess calories without serious comorbidity with body mass index (BMI) of 45.0 to 49.9 in adult (HCC) RUQ discomfort Procedures Trenton Yepez MD [address] [facility] [address] [place] [address] Phone: tel: fax: External Order Referral ID Status Reason Start Date Expiration Date Visits Re quested Visits Authorized [id number] Closed 06/16/2023 07/15/2024 1 1 Reason for Visit * Diagnostic Imaging (Routine) - Closed Specialty Diagnoses / Procedures Referred By Judi mars Referred To Contact Diagnoses Class 3 severe obesity due to excess calories without serious comorbidity with body mass index (BMI) of 45.0 to 49.9 in adult (HCC) RUQ discomfort Procedures Trenton Yepez MD [address] [facility] [address] [place] [address] Phone: tel: fax: External Order Referral ID Status Reason Start Date Expiration Date Visits Re quested Visits Authorized [id number] Closed 06/16/2023 07/15/2024 1 1 Encounter Details Date Type Department Care Team (Latest Contact Info) Description 08/06/2023 12:40 PM CDT - 08/06/2023 11:59 PM CDT Hospital Encounter [address] [address] Class 3 severe obesity due to excess [...] on file Legal Sex Female 4:15 AM ENFORCEMENT MANAGER Gender Identity Not on file Sexual Orientation Not on file 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 No positive sonographic [place] sign reported. ?? BILIARY: ?? There is [...] D: ??08/06/2023 9:03 PM T: Report ID: [id number] Reading Location: ??[id number] Procedure Note Rosalva Patino MD - 08/06/2023 [...] wall thickening or pericholecystic fluid. No positivesonographic [place] sign reported. BILIARY: There is no intrahepatic [...] Rosalva Patino M.D. QX T: Report ID: [id number] Reading Location: [id number] us Trenton Lomeli MD IMG US PROCEDURES Final Res ult documented in this encounter Visit Diagnoses Diagnosis Class 3 severe obesity due to excess calories without serious comorbidity with body mass index (BMI) of 45.0 to 49.9 in adult (HCC) RUQ discomfort documented in this encounter Care Teams Cadworx Piping Designer Relationship Specialty Start Date End Date Trenton Lomeli MD PCP - General Family Medicine 10/06/21 Neelima Velazquez MD [address] [address] Consulting Physician Gynecology 10/06/21 Maura Wilson MD [address] [place] [address] Consulting Physician Cardiology 06/16/23 documented as of this encounter
--- OUTSIDE RECORDS SUMMARY | 2024-11-08 06:44 | XMS_ITS | Encounter Summary ---
Author Organization [facility] Healthcare Address [address] [place] [address] Care Team Providers Care Breaker Boss Name Role Phone Trenton Lomeli MD Primary Care Provider [phone] Neelima Velazquez MD Unavailable [phone] Encounter Details Date Type Department Care Team (Late st Contact Info) Description 10/06/2021 7:35 PM ELECTRICAL ASSEMBLY TECHNICIAN Lab [address] [address] Essential hypertension; Nonalcoholic steatohepatitis (ACE) Social History [...] on file Legal Sex Female 4:15 AM ELECTRICAL ASSEMBLY TECHNICIAN Gender Identity Not on file Sexual Orientation Not on file 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 on file Not on file Not on file documented as of this encounter Plan of Treatment Not on file documented as of this encounter Procedures Procedure Name Priority Date/Time Associated Diagnosis Comments EGFR Routine 10/06/2021 2:39 PM ELECTRICAL ASSEMBLY TECHNICIAN Nonalcoholic steatohepatitis (ACE) DIFFERENTIAL AUTO Routine 10/06/2021 2:3 9 PM ELECTRICAL ASSEMBLY TECHNICIAN Nonalcoholic steatohepatitis (ACE) THYROID FUNCTION CASCADE Routine 10/06/2021 2:39 PM ELECTRICAL ASSEMBLY TECHNICIAN Essential hypertension CBC WITH AUTO DIFFERENTIAL Routine 10/06/2021 2:39 PM ELECTRICAL ASSEMBLY TECHNICIAN Nonalcoholic steatohepatitis (ACE) LIPID PANEL Routine 10/06/2021 2:39 PM ELECTRICAL ASSEMBLY TECHNICIAN Nonalcoholic steatohepatitis (ACE) COMPREHENSIVE METABOLIC PANEL Routine 10/06/2021 2:39 PM ELECTRICAL ASSEMBLY TECHNICIAN Nonalcoholic steatohepatitis (ACE) documented in this encounter Results * eGFR (10/06/2021 2:39 PM ELECTRICAL ASSEMBLY TECHNICIAN) eGFR 123 mL/min/1.7 3 m2 [facility] [...] last reviewed 2020 Blood 10/06/2021 2:39 PM ELECTRICAL ASSEMBLY TECHNICIAN 10/06/2021 8:03 PM ELECTRICAL ASSEMBLY TECHNICIAN us Trenton Lomeli MD LAB BLOOD ORDERABLES Final Result [facility] [id number] [place] [address] * Differential, auto (10/06/2021 2:39 PM ELECTRICAL ASSEMBLY TECHNICIAN) Neutrophil abs 3.3 1.7 - 6.5 K/cumm CERNER Imm gran abs 0.0 0.0 - 0.1 K/cumm [facility] Lymphocyte abs 1.8 0.8 - 3.3 K/cumm [facility] Monocyte abs 0.4 0.2 - 0.8 K/cumm [facility] Eosinophil abs 0.1 0.0 - 0.5 K/cumm [facility] Basophil abs 0.0 0.0 - 0.1 K/cumm [facility] Neutrophil pct 57.7 % [facility] Comment: Interpretive Data Percent cell count reference ranges are not reported, since discordance with absolute values may lead to misinterpretation of CBC data. Current Interpretive Data was last revised on 2018. Imm gran pct 0.2 % [facility] Comment: Interpretive Data Percent cell count reference ranges are not reported, since discordance with absolute values may lead to misinterpretation of CBC data. Current Interpretive Data was last revised on 2018. Lymphocyte pct 32.1 % [facility] Comment: Interpretive Data Percent cell count reference ranges are not reported, since discordance with absolute values may lead to misinterpretation of CBC data. Current Interpretive Data was last revised on 2018. Monocyte pct 7.3 % [facility] Comment: Interpretive Data Percent cell count reference [...] revised on 2018. Blood 10/06/2021 2:39 PM ELECTRICAL ASSEMBLY TECHNICIAN 10/06/2021 7:52 PM ELECTRICAL ASSEMBLY TECHNICIAN Trenton Lomeli MD LAB BLOOD ORDERABLES Final Result ARI [id number] Department [place] [address] * (ABNORMAL) CBC with auto differential (10/06/2021 2:39 PM ELECTRICAL ASSEMBLY TECHNICIAN) WBC 5.6 3.8 - 9.9 K/cumm [facility] Hgb 13.6 11.9 - 15.5 g/dL [facility] Hct 42.7 35.6 - 45.5 % [facility] Plt 338 150 - 400 K/cumm [facility] MPV 9.5 9.1 - 12.3 fL [facility] RBC 4.83 3.90 - 5.20 M/cumm [facility] MCV 88.4 81.3 - 96.4 fL [facility] MCH 28.2 27.1 - 33.3 pg [facility] MCHC 31.9(L) 32.3 - 35.7 g/dL [facility] RDW CV 12.9 11.1 - 14.9 % [facility] RDW SD 41.9 35.7 - 48.1 fL [facility] NRBC abs 0.00 0.00 - 0.01 K/cumm [facility] Blood 10/06/2021 2:39 PM ELECTRICAL ASSEMBLY TECHNICIAN 10/06/2021 7:52 PM ELECTRICAL ASSEMBLY TECHNICIAN Trenton Lomeli MD LAB BLOOD ORDERABLES Final Result [facility] [address] Department [place] [address] * (ABNORMAL) Comprehensive metabolic panel (10/06/2021 2:39 PM ELECTRICAL ASSEMBLY TECHNICIAN) Sodium 141 135 - 145 mmol/L CERNER [...] Units/L CERNER CH Blood 10/06/2021 2:39 PM ELECTRICAL ASSEMBLY TECHNICIAN 10/06/2021 7:52 PM ELECTRICAL ASSEMBLY TECHNICIAN Trenton Lomeli MD LAB BLOOD ORDERABLES Final Result [facility] [id number] Department [place] [address] * (ABNORMAL) Lipid panel (10/06/2021 2:39 PM ELECTRICAL ASSEMBLY TECHNICIAN) [facility] Signature Cholesterol 147 30 - 199 mg/dL [...] 6 CERNER CH Blood 10/06/2021 2:39 PM ELECTRICAL ASSEMBLY TECHNICIAN 10/06/2021 7:52 PM ELECTRICAL ASSEMBLY TECHNICIAN us Trenton Lomeli MD LAB BLOOD ORDERABLES Final Result Performing Organization Address [facility] Co de Phone Number ARI [address] [address] [place] [address] * TSH reflex to free T4 (10/06/2021 2:39 PM ELECTRICAL ASSEMBLY TECHNICIAN) TSH 0.84 0.30 - 4.20 mcIUnit/mL CERNER CH Blood 10/06/2021 2:39 PM ELECTRICAL ASSEMBLY TECHNICIAN 10/06/2021 7:52 PM ELECTRICAL ASSEMBLY TECHNICIAN us Trenton Lomeli MD LAB BLOOD ORDERABLES Final Result Performing Organization Address [facility] de Phone Number ARI [address] [address] [place] [address] documented in this encounter Visit Diagnoses Diagnosis Essential hypertension Unspecified essential hypertension Nonalcoholic steatohepatitis (ACE) documented in this encounter Care Teams Breaker Boss Relationship Specialty Start Date End Date Trenton Lomeli MD PCP - General Family Medicine 10/06/21 Neelima Velazquez MD [address] [address] Consulting Physician Gynecology 10/06/21 documented as of this encounter
--- OUTSIDE RECORDS SUMMARY | 2024-11-08 06:44 | XMS_ITS | Encounter Summary ---
Author Organization [facility] Healthcare Address [address] [place] [address] Care Team Providers Care Switcher Name Role Phone Trenton Lomeli MD Primary Care Provider [phone] Neelima Velazquez MD Unavailable [phone] Maura Wilson MD Unavailable [phone] Reason for Visit * Reason Onset Date Comments Recommendation Request 09/22/2023 Encounter Details Date Type Department Care Team (Late st Contact Info) Description 09/22/2023 Telephone [facility] Medical Group Primary Care at [address] [address] Trenton Lomeli MD [address] [place] [address] [address] [place] [address] Recommendation Request Social History Tobacco [...] Legal Sex Female 4:15 AM DIRECTOR OF ENVIRONMENTAL SERVICES Gender Identity Not on file Sexual Orientation Not on file 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 Specialty: Endocrinology Why does the patient want to go to this specialist? Prolactin is high, hyperthyroid symptoms Additional Comments/Concerns: none Does message need to be routed? Yes-Action Needed CTOR OF ENVIRONMENTAL SERVICES documented in this encounter Plan of Treatment Not on file documented as of this encounter Visit Diagnoses Diagnosis Hyperthyroidism- Primary Thyrotoxicosis without mention of goiter or other cause, without mention of thyrotoxic crisis or storm Hyperprolactinemia (HCC) Other and unspecified anterior pituitary hyperfunction documented in this encounter Care Teams Switcher Relationship Specialty Start Date End Date Trenton Lomeli MD PCP - General Family Medicine 10/06/21 Neelima Velazquez MD [address] [address] Consulting Physician Gynecology 10/06/21 Maura Wilson MD [address] [place] [address] Consulting Physician Cardiology 06/16/23 documented as of this encounter
--- OUTSIDE RECORDS SUMMARY | 2024-11-08 06:44 | XMS_ITS | Encounter Summary ---
Author Organization [facility] Medical Group Address [address] [address] Care Team Providers Care Senior Quality Analyst Name Role Phone Trenton Lomeli MD Primary Care Provider [phone] Neelima Velazquez MD Unavailable [phone] Encounter Details Date Type Department Care Team (Late st Contact Info) Description 11/09/2022 5:45 PM CERTIFIED TRAVEL COUNSELOR Lab 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
--- OUTSIDE RECORDS SUMMARY | 2024-11-08 06:44 | XMS_ITS | Encounter Summary ---
Author Organization [facility] Address [address] [address] Care Team Providers Care Prototype Model Maker Name Role Phone Trenton Lomeli MD Primary Care Provider [phone] Neelima Velazquez MD Unavailable [phone] Reason for Visit * Reason Comments Cold Symptoms Patient presents tod with fever, nasal drainage, sore throat, and chills.The patient's symptoms started last Wednesday. For the first 3 days, patient had chills and fevers. 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 Not on file Not on file Not on file documented as of this encounter Last Filed Vital Signs Vital Sign Reading Time Taken Comments Blood Pressure 144/91 10/03/2022 12:39 PM INDUSTRIAL RECRUITER Pulse 104 10/03/2022 12:39 PM INDUSTRIAL RECRUITER Temperature 37.1 ??C (98.8 ??F) 10/03/2022 12:[address] Respiratory Rate 28 10/03/2022 12:39 PM INDUSTRIAL RECRUITER Oxygen Saturation 95% 10/03/2022 12:39 PM INDUSTRIAL RECRUITER Inhaled Oxygen Concentration - - Weight 130.6 kg (288 lb) 10/03/2022 12:39 PM INDUSTRIAL RECRUITER Height 171.5 cm (5' 7.5 ) 10/03/2022 12:39 PM CS T Body Mass Index 44.44 10/03/2022 12:39 PM INDUSTRIAL RECRUITER documented in this encounter Patient Instructions * Patient Instructions* Gayla Sykes, RESIDENTIAL DIRECT SUPPORT PROFESSIONAL - 10/03/2022 12:45 PM INDUSTRIAL RECRUITER Symptomatic treatments include: -Over the counter antihistamine [...] same utensils or glass, and use hand blurb writer before touching people or common surfaces. -Apply [...] SERIOUS COMPLICATION AND REQUIRES IMMEDIATE EMERGENCY ATTENTION. STRIAL RECRUITER * Attachments The following attachments cannot be sent through Care Everywhere. * Sinusitis (Property Staff Accountant) (Nepalese) documented in this encounter Ordered Prescriptions Prescription [...] rash, and abdominal pain. Patient has taken gvhp-onr-awmelhv cold medications for her symptoms. Patient is [...] and frontal sinus tenderness present. Mouth/Throat: Lips: [place]. Mouth: Mucous membranes are moist. Pharynx: Uvula [...] same utensils or glass, and use hand blurb writer before touching people or common surfaces. -Apply [...] can return to work Patient Education Sinusitis WEB SPECIALIST: Sinusitis is inflammation or infection of your [...] ask them during your visits. ?? 2017 [facility] Information is for End User's use only and may not be sold, redistributed or otherwise used for commercial purposes. All illustrations and images included in CareNotes?? are the copyrighted property of [employer]. or [place] Self [employer]ation Document Preparation. The above information is an paid search analyst only. It is not intended as medical advice for individual conditions or treatments. Talk to your doctor, nurse or pharmacist before following any medical regimen to see if it is safe and effective for you. Gayla Sykes NP STRIAL RECRUITER documented in this encounter Miscellaneous Notes * Addendum Note - Karmen Reyes CMA - 10/03/2022 12:45 PM CSTAddended by: KARMEN REYES on: 10/03/2022 01:51 PM Modules accepted: Orders STRIAL RECRUITER documented in this encounter Plan of Treatment Not on file documented as of this encounter Procedures Procedure Name Priority Date/Time Associated Diagnosis Comments POC INFLUENZA A/B, COVID-19 ANTIGEN Routine 10/03/2022 1:04 PM INDUSTRIAL RECRUITER Acute non-recurrent pansinusitis POCT RAPID STREP Routine 10/03/2022 12:5 8 PM INDUSTRIAL RECRUITER Acute non-recurrent pansinusitis documented in this encounter Results * Throat culture Throat (10/03/2022 1:52 PM INDUSTRIAL RECRUITER) Report Final Report: No growth of pathogens. ARI CLAY Comment:Testing performed by : [facility], [address] [facility], [place]., [address] Throat 10/03/2022 1:52 PM INDUSTRIAL RECRUITER 10/04/2022 1:26 AM INDUSTRIAL RECRUITER Narrative ARI CLAY - 10/05/2022 1:28 PM INDUSTRIAL RECRUITER Testing performed by [facility] Microbiology Laboratory ([phone]). Gayla M. Trower RESIDENTIAL DIRECT SUPPORT PROFESSIONAL LAB MICROBIOLOGY - GENERAL ORD ERABLES Final Result ARI CLAY [address] [address] Department [place] [address] * POC Influenza A/B, COVID-19 antigen (10/03/2022 1:04 PM INDUSTRIAL RECRUITER) Influenza A Ag, POC Negative Negative [facility] Influenza B Ag, POC Negative Negative [facility] COVID-19 Ag POC Presumptive Negative Presumptive Negative, Invalid [facility] Nasal 10/03/2022 1:04 PM INDUSTRIAL RECRUITER us Gayla Sykes RESIDENTIAL DIRECT SUPPORT PROFESSIONAL POINT OF CARE TEST ORDERABLES Final Result Performing Organization Address City/[facility] Co de Phone Number [facility] [address] * POCT rapid strep A (10/03/2022 12:58 PM INDUSTRIAL RECRUITER) Rapid Strep A, POC Negative Swab 10/03/2022 12:5 8 PM INDUSTRIAL RECRUITER us Gayla Sykes RESIDENTIAL DIRECT SUPPORT PROFESSIONAL POINT OF CARE TEST ORDERABLES Final Result documented in this encounter Visit Diagnoses Diagnosis Acute non-recurrent pansinusitis- Primary Acute non-recurrent pansinusitis documented in this encounter Additional Health Concerns Infection Onset Date Last Indicated Resolved Time COVID: Suspected 10/03/2022 10/03/2022 10/03/2022 1:05 PM INDUSTRIAL RECRUITER documented as of this encounter Care Teams Prototype Model Maker Relationship Specialty Start Date End Date Trenton Lomeli MD PCP - General Family Medicine 10/06/21 Neelima Velazquez MD [address] [place] [address] Consulting Physician Gynecology 10/06/21 documented as of this encounter
--- OUTSIDE RECORDS SUMMARY | 2024-11-08 06:44 | XMS_ITS | Encounter Summary ---
Author Organization [facility] Address [address] [address] Care Team Providers Care Flat Sorter Processor Name Role Phone Trenton Lomeli MD Primary Care Provider [phone] Neelima Velazquez MD Unavailable [phone] Reason for Visit * Reason Onset Date Comments Medical Question/Miscellaneous 08/11/2022 Encounter Details Date Type Department Care Team (Late st Contact Info) Description 08/11/2022 Telephone [facility] Primary Care at [address] [address] Trenton Lomeli MD [address] [place] [address] [address] [place] [address] Medical Question/Miscellaneous Social History Tobacco [...] on file Legal Sex Female 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 Low amount of interactions of risks, [...] sore throat congestion Caller???s Call back #: [phone] Does message need to be routed?Yes-Action Needed documented in this encounter Plan of Treatment Not on file documented as of this encounter Visit Diagnoses Diagnosis COVID-19- Primary documented in this encounter Care Teams Flat Sorter Processor Relationship Specialty Start Date End Date Trenton Lomeli MD PCP - General Family Medicine 10/06/21 Neelima Velazquez MD [address] [address] Consulting Physician Gynecology 10/06/21 documented as of this encounter
--- OUTSIDE RECORDS SUMMARY | 2024-11-08 06:44 | XMS_ITS | Encounter Summary ---
Author Organization [facility] Address [address] [address] Care Team Providers Care Air Sampling And Monitoring Name Role Phone Trenton Lomeli MD Primary Care Provider [phone] Neelima Velazquez MD Unavailable [phone] Encounter Details Date Type Department Care Team (Late st Contact Info) Description 10/06/2021 2:45 PM LAMP SHADES SUPERVISOR Lab [facility] Outpatient Lab at [address] [address] Encounter for medical examination to [...] on file Legal Sex Female 4:15 AM LAMP SHADES SUPERVISOR Gender Identity Not on file Sexual Orientation Not on file 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 Not on file Not on file Not on file documented as of this encounter Plan of Treatment Not on file documented as of this encounter Visit Diagnoses Diagnosis Encounter for medical examination to establish care ACE (nonalcoholic steatohepatitis) Other chronic nonalcoholic liver disease Essential hypertension Unspecified essential hypertension documented in this encounter Care Teams Air Sampling And Monitoring Relationship Specialty Start Date End Date Trenton Lomeli MD PCP - General Family Medicine 10/06/21 Neelima Velazquez MD [address] [address] Consulting Physician Gynecology 10/06/21 documented as of this encounter
--- OUTSIDE RECORDS SUMMARY | 2024-11-08 06:44 | XMS_ITS | Encounter Summary ---
Author Organization [facility] Address [address] [place] [address] Phone Care Team Providers Care Mill Roll Rewinder Name Role Phone Trenton Lomeli MD Primary Care Provider [phone] Neelima Velazquez MD Unavailable [phone] Encounter Details Date Type Department Care Team (Late st Contact Info) Description 12/29/2022 Telephone [facility] Cardiology [address] [facility] Advanced Medicine 8th [place] [address] [place] [address] Maura Wilson MD [address] [facility] [address] [place], [place] [id number] Social History Tobacco Use Types Packs/Day Years [...] on file Legal Sex Female 4:15 AM COMMUNITY SERVICE OFFICER Gender Identity Not on file Sexual Orientation Not on file 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 Please call to reschedule. UNITY SERVICE OFFICER documented in this encounter Plan of Treatment Not on file documented as of this encounter Visit Diagnoses Not on filedocumented in this encounter Care Teams Mill Roll Rewinder Relationship Specialty Start Date End Date Trenton Lomeli MD PCP - General Family Medicine 10/06/21 Neelima Velazquez MD [address] [address] Consulting Physician Gynecology 10/06/21 documented as of this encounter
--- OUTSIDE RECORDS SUMMARY | 2024-11-08 06:44 | XMS_ITS | Encounter Summary ---
Author Organization [facility] Address [address] [address] Care Team Providers Care Individual Pension Consultant Name Role Phone Trenton Lomeli MD Primary Care Provider [phone] Neelima Velazquez MD Unavailable [phone] Reason for Visit * Reason Comments Urinary Symptom UTI symptoms and str ep symptoms Encounter Details Date Type Department Care Team (Late st Contact Info) Description 08/10/2022 3:30 PM CDT Telemedicine [facility] Medical [facility] Primary Care at [address] [address] Trenton Lomeli MD [address] [place] [address] [address] [place] [address] Acute cystitis without hematuria (Primary [...] on file Legal Sex Female 4:15 AM SLICING MACHINE TENDER Gender Identity Not on file Sexual Orientation Not on file 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 During the visit, I was located in the office and the patient was located at home [facility]. The patient visit started at 330p and [...] still under emergency use authorization, so no terminal gauger data. Low amount of interactions of risks, but GI upset is a main one (apart from risk of allergy. She should avoid for 3 months after medication. In that case, she can forgo the amoxicillin. Trenton Lomeli MD This office note has been partially dictated using [employer] software. documented in this encounter Plan of [...] 07/31/2022 added in this encounter Care Teams Individual Pension Consultant Relationship Specialty Start Date End Date Trenton Lomeli MD PCP - General Family Medicine 10/06/21 Neelima Velazquez MD [address] [address] Consulting Physician Gynecology 10/06/21 documented as of this encounter
--- OUTSIDE RECORDS SUMMARY | 2024-11-08 06:44 | XMS_ITS | Encounter Summary ---
Author Organization [facility] Address [address] [address] Care Team Providers Care Pyridine Operator Name Role Phone Trenton Lomeli MD Primary Care Provider [phone] Neelima Velazquez MD Unavailable [phone] Encounter Details Date Type Department Care Team (Late st Contact Info) Description 08/11/2022 Telephone [facility] Primary Care at [address] [address] Trenton Lomeli MD [address] [place] [address] [address] [place] [address] Social History Tobacco Use Types [...] on file Legal Sex Female 4:15 AM TOW PICKER Gender Identity Not on file Sexual Orientation Not on file 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
--- OUTSIDE RECORDS SUMMARY | 2024-11-08 06:44 | XMS_ITS | Encounter Summary ---
Author Organization [facility] Address [address] [place] [address] Phone Care Team Providers Care Template Worker Name Role Phone Trenton Lomeli MD Primary Care Provider [phone] Neelima Velazquez MD Unavailable [phone] Encounter Details Date Type Department Care Team (Late st Contact Info) Description 01/29/2023 Telephone [facility] Cardiology [address] 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
--- OUTSIDE RECORDS SUMMARY | 2024-11-08 06:44 | XMS_ITS | Encounter Summary ---
Author Organization [facility] Address [address] [address] Care Team Providers Care Hand Wrapper Operator Name Role Phone Trenton Lomeli MD Primary Care Provider [phone] Neelima Velazquez MD Unavailable [phone] Reason for Visit * Reason Comments URI Home tests negative, tickle. 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 The following is recommended [...] sent through Care Everywhere. * Strep Throat (Veneer Matcher) (Finnish) documented in this encounter Ordered Prescriptions Prescription [...] tenderness or frontal sinus tenderness. Mouth/Throat: Lips: [place]. Mouth: Mucous membranes are moist. Pharynx: Uvula [...] The rapid strep test performed at the [facility] today was POSITIVE. The following is recommended [...] return to work Patient Education Strep Throat ADDICTION COUNSELOR: Strep throat is a throat infection caused [...] ask them during your visits. ?? 2017 [employer] Information is for End User's use only and may not be sold, redistributed or otherwise used for commercial purposes. All illustrations and images included in CareNotes?? are the copyrighted property of [email or web address]. or [employer]. The above information is an braiding machine operator only. It is not intended as medical [...] rapid strep A (03/31/2022 4:03 PM CDT) [facility] Rapid Strep A, POC Positive Swab 03/31/2022 4:03 PM CDT Gayla Sykes NP POINT OF CARE TEST ORDERABLES Final Result * POC Influenza A/B, COVID-19 antigen (03/31/2022 4:02 PM CDT) Pathologist [facility] Influenza A Ag, POC Negative [facility] Influenza B Ag, POC Negative [facility] COVID-19 Ag POC Presumptive Negative Presumptive Negative, Invalid [facility] Nasal 03/31/2022 4:02 PM CDT us Saman Dinero NP POINT OF CARE TEST ORDERABLES F inal Result [facility] [address] [place] [address], [facility] documented in this encounter Visit Diagnoses Diagnosis Strep throat- Primary Streptococcal sore throat documented in this encounter Additional Health Concerns Infection Onset Date Last Indicated Resolved Time COVID: Suspected 03/31/2022 03/31/2022 03/31/2022 4:04 PM CDT documented as of this encounter Care Teams Hand Wrapper Operator Relationship Specialty Start Date End Date Trenton Lomeli MD PCP - General Family Medicine 10/06/21 Neelima Velazquez MD [address] [place] [place] [address] Consulting Physician Gynecology 10/06/21 documented as of this encounter
--- OUTSIDE RECORDS SUMMARY | 2024-11-08 06:44 | XMS_ITS | Encounter Summary ---
Author Organization [facility] Healthcare Address [address] [place] [address] Care Team Providers Care Wool Sampler Name Role Phone Sergo Mackey MD Primary Care Provider [phone] Encounter Details Date Type Department Care Team (Late st Contact Info) Description 08/05/2017 8:19 PM CDT - 08/06/2017 11:31 AM CDT Emergency [facility] Emergency Department [address] [place] [address] Unknown, Notinfile Discharge Disposition: Discharge to home or self care Social History Tobacco Use Types Packs/Day Years Used Date Smoking Tobacco: Never Alcohol Use Standard Drinks/Week Comments No 0 (1 standard drink = 0.6 oz pur e alcohol) Comments Unknown Sex and Gender Information Value Date Recorded Sex Assigned at Not on file Legal Sex Female 4:15 AM CELL SUPPORT OPERATOR Gender Identity Not on file Sexual [...] for the diagnosis of myocardial infarction (Third Belgrade Definition of Myocardial Infarction. ??J Am Sully Cardiol 2012;60:1581-98). Current interpretive data was last revised on 13. Blood specimen (specimen) 08/06/2017 6:00 AM CDT 08/06/2017 6:18 AM CDT Love Ramirez ADVANCED REGISTERED NURSE LAB BLOOD ORDERABLES Final Result ARI [facility] Department [place] [address] * XR Chest Pa Lateral 2 Views (08/06/2017 5:53 AM CDT) Anatomical Region Laterality Modality Body, Chest N/A Radiographic Fiona ging 08/06/2017 5:53 AM CDT Narrative 08/06/2017 5:53 AM CDT Tory GANNON M.D. FINAL REPORT The radiology attending physician has personally reviewed this study, and has reviewed and/or edited this written report and agrees with it. ACC# ??Date Time ??Exam [id number] Aug 06, 2017 00:53:00 [id number] Chest 2 views Frontl ??and ??Lat EXAMINATION: [...] ELOISA LOPEZ M.D. on Aug ??2016 ??8:15A [id number] GANNON M.D. FINAL REPORT The radiology attending physician has personally reviewed this study, and has reviewed and/or edited this written report and agrees with it. Attending: ??UNKNOWN, ??NOTINFILE Requesting: ??JAMES, ??LOVE Requesting Fax: ?? Attending Fax: ?? Attending ID: ??[id number] Requesting ID: ??[id number] Report To 1 ID: ??[id number] ? Report To 1 Name: ??, ?? Report To 1 FAX: ?? NextGen Order #: ?? Procedure Note Miscellaneous, Not In File / Provider, MD Misael - 08/06/2017 ELOISA LOPEZ M.D. CARMELITA SHEPARD M.D. FINAL REPORT The radiology attending physician has personally reviewed this study, and has reviewed and/or edited this written report and agrees with it. ACC# Date Time Exam [id number] Aug 06, 2017 00:53:00 [id number] Chest 2 views Frontl and Lat EXAMINATION: [...] LOPEZ M.D. on Aug 06 2017 8:15A [id number] GANNON M.D. FINAL REPORT The radiology attending physician has personally reviewed this study, and has reviewed and/or edited this written report and agrees with it. Attending: UNKNOWN, NOTINFILE Requesting: LOVE RAMIREZ Requesting Fax: Attending Fax: Attending ID: [id number] Requesting ID: [id number] Report To 1 ID: [id number] Report To 1 Name: , Report To 1 FAX: NextGen Order #: us Love Ramirez ADVANCED REGISTERED NURSE IMG XR PROCEDURES Final Res ult * Stool culture (08/06/2017 12:44 AM CDT) Direct Specimen Exam Shiga Toxin Testing: Antigen detection assay for Shiga-toxin NEGATIVE for Shiga Toxin 1 and Shiga Toxin 2. [facility] Report Final Report: No growth of enteric bacterial pathogens [facility] Stool (Rectum) 08/06/2017 12 :44 AM CDT 08/06/2017 1:50 AM CDT Narrative [facility] - 08/07/2017 9:47 AM CDT Routine stool cultures include procedures to detect Salmonella, Shigella, Edwardsiella, Aeromonas, Pleisiomonas, Campylobacter, Yersinia, E. coli O157, and Shiga-like toxins. ?? Vibrio is cultured only upon special request. ??If Vibrio is suspected, please call the laboratory at [phone]. Interpretive data was last updated March 08, 2017. Love Ramirez NP LAB MICROBIOLOGY - GENERAL ORDERABLES Final Result Performing Organization Address City/[facility] Co de Phone Number [facility] [place] [address] * Ova and parasite screen (08/06/2017 12:44 AM CDT) Report Final Report: Negative [facility] Stool (Rectum) 08/06/2017 12 :44 AM CDT 08/06/2017 1:50 AM CDT Narrative [facility] - 08/06/2017 1:50 AM CDT This test is an Immunoassay which screens for Cryptosporidium and Giardia only. ??Please request Microscopic OP Exam if comprehensive examination for ova and parasites is required. ?? Current interpretive data was last revised on 04. Love Ramirez NP LAB MICROBIOLOGY - GENERAL ORDERABLES Final Result Performing Organization Address City/[facility]/ZIP Co de Phone Number [facility] [place] [address] * Troponin I (08/06/2017 12:44 AM CDT) Troponin I <0.03 0.00 - 0.03 ng/mL [facility] Comment: Interpretive Data Serial determinations are recommended for the diagnosis of myocardial infarction (Third Belgrade Definition of Myocardial Infarction. ??J Am Sully Cardiol 2012;60:1581-98). Current interpretive data was last revised on 13. Blood specimen (specimen) 08/06/2017 12:44 AM CDT 08/06/2017 12:50 AM CDT us Love Ramirez ADVANCED REGISTERED NURSE LAB BLOOD ORDERABLES Final Result Performing Organization Address City/[facility] Co de Phone Number [facility] [place] [address] * VRE culture, surveillance (08/06/2017 12:37 AM CDT) Report Final Report: Negative [facility] Stool 08/06/2017 12:3 7 AM CDT 08/07/2017 12:11 AM CDT Narrative [facility] - 08/08/2017 9:02 AM CDT us Notinfile Unknown LAB MICROBIOLOGY - GENERAL ORD ERABLES Final Result Performing Organization Address [facility] Co de Phone Number [facility] [place] [address] * Clostridium difficile assay (08/06/2017 12:37 AM CDT) Report Final Report: Negative for: Clostridium difficile toxin. [facility] Stool 08/06/2017 12:3 7 AM CDT 08/06/2017 1:51 AM CDT Narrative [facility] - 08/06/2017 1:52 AM CDT us Notinfile Unknown LAB MICROBIOLOGY - GENERAL ORD ERABLES Final Result Performing Organization Address City/[facility] Co de Phone Number [facility] [place] [address] * DISCHARGE LABORATORY CUMULATIVE REPORT (08/06/2017 12:00 AM CDT) Narrative 08/06/2017 12:00 AM CDT Ordered by an unspecified provider. Historical Provider MD LAB BLOOD ORDERABLES Diann l Result * Differential, auto (08/05/2017 10:08 PM CDT) Neutrophil pct 67.7 % [facility] Imm gran pct 0.3 % [facility] Lymphocyte pct 23.4 % [facility] Monocyte pct 6.1 % [facility] Eosinophil pct 2.0 % [facility] Basophil pct 0.5 % [facility] Neutrophil abs 5.86 1.70 - 6.50 K/cumm [facility] Imm gran abs 0.03 0.00 - 0.10 K/cumm [facility] Lymphocyte abs 2.03 0.80 - 3.30 K/cumm [facility] Monocyte abs 0.53 0.20 - 0.80 K/cumm [facility] Eosinophil abs 0.17 0.00 - 0.50 K/cumm [facility] Basophil abs 0.04 0.00 - 0.10 K/cumm [facility] Blood specimen (specimen) 08/05/2017 10:08 PM CDT 08/05/2017 10:29 PM CDT Love Ramirez NP LAB BLOOD ORDERABLES Final Result [facility] Department [place] [address] * CBC with auto differential (08/05/2017 10:08 PM CDT) WBC 8.66 3.80 - 9.90 K/cumm [facility] RBC 4.56 3.90 - 5.20 M/cumm [facility] Hgb 12.9 11.9 - 15.5 g/dL [facility] Hct 39.5 35.6 - 45.5 % [facility] MCV 86.6 81.3 - 96.4 fL [facility] MCH 28.3 27.1 - 33.3 pg [facility] MCHC 32.7 32.3 - 35.7 g/dL [facility] RDW CV 12.5 11.1 - 14.9 % [facility] RDW SD 39.5 35.7 - 48.1 fL [facility] Plt 311 150 - 400 K/cumm [facility] MPV 9.1 9.1 - 12.3 fL [facility] NRBC 0.0 0.0 - 0.2 % [facility] NRBC abs 0.00 0.00 - 0.01 K/cumm [facility] Blood specimen (specimen) 08/05/2017 10:08 PM CDT 08/05/2017 10:29 PM CDT us Love Ramirez NP LAB BLOOD ORDERABLES Final Result Performing Organization Address [facility] de Phone Number [facility] Department [place] [address] * Basic metabolic panel (08/05/2017 9:37 PM CDT) [facility] Sodium 141 135 - 145 mmol/L [facility] Potassium, pl 3.9 3.3 - 4.9 mmol/L [facility] Chloride 104 97 - 110 mmol/L [facility] CO2 25 22 - 32 mmol/L [facility] BUN 8 8 - 25 mg/dL [facility] Glucose 99 70 - 199 mg/dL [facility] Creatinine 0.70 0.60 - 1.10 mg/dL [facility] Calcium 9.6 8.5 - 10.3 mg/dL [facility] Anion gap 12 2 - 15 mmol/L [facility] Blood specimen (specimen) 08/05/2017 9:37 PM CDT 08/05/2017 9:42 PM CDT us Jerson Hernandez MD LAB BLOOD ORDERABLES Diann l Result Performing Organization Address [facility] Co de Phone Number [facility] [place] [address] documented in this encounter Visit Diagnoses Not on filedocumented in this encounter Care Teams Wool Sampler Relationship Specialty Start Date End Date Sergo Mackey MD [address] [place] [address] PCP - General 08/05/17 10/05/21 documented as of this encounter
--- OUTSIDE RECORDS SUMMARY | 2024-11-08 06:44 | XMS_ITS | Encounter Summary ---
Author Organization [facility] Healthcare Address [address] [place] [address] Care Team Providers Care Wire Stretcher Name Role Phone Trenton Lomeli MD Primary Care Provider [phone] Neelima Velazquez MD Unavailable [phone] Encounter Details Date Type Department Care Team (Latest Contact Info) Description 11/09/2022 4:21 PM SWEAT BAND SEWER - 11/09/2022 11:59 PM SWEAT BAND SEWER Hospital Encounter [facility] [address] [id number] Screening, lipid Discharge Disposition: Discharge to home [...] on file Legal Sex Female 4:15 AM SWEAT BAND SEWER Gender Identity Not on file Sexual Orientation Not on file 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 [place] [address] documented in this encounter Visit Diagnoses Diagnosis Screening, lipid documented in this encounter Care Teams Wire Stretcher Relationship Specialty Start Date End Date Trenton Lomeli MD PCP - General Family Medicine 10/06/21 Neelima Velazquez MD [address] [address] Consulting Physician Gynecology 10/06/21 documented as of this encounter
--- OUTSIDE RECORDS SUMMARY | 2024-11-08 06:44 | XMS_ITS | Encounter Summary ---
Author Organization [facility] Medical Group Address [address] [address] Care Team Providers Care Hvac R Tech Name Role Phone Trenton Lomeli MD Primary Care Provider [phone] Neelima Velazquez MD Unavailable [phone] Reason for Visit * Reason Onset Date Comments Call Back 11/13/2022 Encounter Details Date Type Department Care Team (Late st Contact Info) Description 11/13/2022 Telephone [facility] Primary Care at [address] [address] Trenton Lomeli MD [address] [place] [address] [address] [place] [address] Call Back Social History Tobacco [...] on file Legal Sex Female 4:15 AM MATERIAL HANDLING SUPERVISOR Gender Identity Not on file Sexual Orientation Not on file 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 Caller???s Call back #: [phone] Does message need to be routed? Yes-Action Needed RIAL HANDLING SUPERVISOR documented in this encounter Plan of Treatment Not on file documented as of this encounter Visit Diagnoses Not on filedocumented in this encounter Care Teams Hvac R Tech Relationship Specialty Start Date End Date Trenton Lomeli MD PCP - General Family Medicine 10/06/21 Neelima Velazquez MD [address] [address] Consulting Physician Gynecology 10/06/21 documented as of this encounter
--- OUTSIDE RECORDS SUMMARY | 2024-11-08 06:44 | XMS_ITS | Encounter Summary ---
Author Organization [facility] Medical Group Address [address] [address] Care Team Providers Care Software Development Project Manager Name Role Phone Trenton Lomeli MD Primary Care Provider [phone] Neelima Velazquez MD Unavailable [phone] Reason for Visit * Reason Comments Annual Exam physical Encounter Details Date Type Department Care Team (Late st Contact Info) Description 11/09/2022 3:45 PM BOBBIN PRESSER Office Visit [facility] Medical [facility] Primary Care at [address] [address] Trenton Lomeli MD [address] [place] [address] [address] [place] [address] Well adult exam (Primary Dx); [...] on file Legal Sex Female 4:15 AM BOBBIN PRESSER Gender Identity Not on file Sexual Orientation Not on file 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 on file Not on file Not on file documented as of this encounter Last Filed Vital Signs Vital Sign Reading Time Taken Comments Blood Pressure 136/84 11/09/2022 3:44 PM BOBBIN PRESSER Pulse 111 11/09/2022 3:44 PM BOBBIN PRESSER Temperature 36.6 ??C (97.8 ??F) 11/09/2022 3:44 PM CS T Respiratory Rate 16 11/09/2022 3:44 PM BOBBIN PRESSER Oxygen Saturation 98% 11/09/2022 3:44 PM BOBBIN PRESSER Inhaled Oxygen Concentration - - Weight 133.4 kg (294 lb) 11/09/2022 3:44 PM BOBBIN PRESSER Height 171.5 cm (5' 7.5 ) 11/09/2022 3:44 PM BOBBIN PRESSER Body Mass Index 45.37 11/09/2022 3:44 PM BOBBIN PRESSER documented in this encounter Patient Instructions * Patient Instructions* Trenton Lomeli MD - 11/09/2022 3:45 PM BOBBIN PRESSER Thanks for coming in today! My medical assistants and I are thankful you have trusted us with your care, and hope that you received EXCELLENT care today! Please do not hesitate to call if you have any questions or concerns at [phone]. You may receive a phone call, text, MYCHART message, or e-mail asking about your care today. We would love to hear your feedback on how EXCELLENT your care wastoday! Wishing you better health, always. Dr. Lomeli IN PRESSER * Attachments The following attachments cannot be sent through Care Everywhere. * DASH Eating Plan (General Information) (Citizen Of [place]) documented in this encounter Progress Notes * [...] or bloody stools. No urinary tract symptoms. REGULATORY LAW SPECIALIST ROS: normal menses, no abnormal bleeding, pelvic [...] WISDOM TOOTH EXTRACTION Oral Surgery Tooth Extraction [place] Tooth - (Added by TW Conv) Family [...] Cardiology; Future Need for vaccination Comments: deferred IN PRESSER documented in this encounter Miscellaneous Notes * Assessment & Plan Note - Trenton Lomeli MD - 11/09/2022 4:02 PM BOBBIN PRESSER Associated Problem(s): Morbid (severe) obesity due to excess calories (HCC) BMI Follow-up includes: nutrition counseling, exercise counseling and education provided. IN PRESSER * Assessment & Plan Note - Trenton Lomeli MD - 11/09/2022 4:01 PM BOBBIN PRESSER Associated Problem(s): Well adult exam A(n) yearly [...] tests per orders return annually or prn IN PRESSER IN PRESSER documented in this encounter Plan of Treatment Not on file documented as of this encounter Results * (ABNORMAL) Lipid panel (11/09/2022 4:21 PM BOBBIN PRESSER) Cholesterol 235(H) 30 - 199 mg/dL ARI [...] 6 ARI [facility]LAY Blood 11/09/2022 4:21 PM BOBBIN PRESSER 11/09/2022 7:19 PM BOBBIN PRESSER us Trenton Lomeli MD LAB BLOOD ORDERABLES Final Result [facility] [address] [facility] Department [place] [address] documented in this encounter Visit Diagnoses Diagnosis [...] disease documented in this encounter Care Teams Software Development Project Manager Relationship Specialty Start Date End Date Trenton Lomeli MD PCP - General Family Medicine 10/06/21 Neelima Velazquez MD [address] [address] Consulting Physician Gynecology 10/06/21 documented as of this encounter
--- OUTSIDE RECORDS SUMMARY | 2024-11-08 06:44 | XMS_ITS | Encounter Summary ---
Author Organization [facility] Healthcare Address [address] [place] [address] Care Team Providers Care Aluminum Can Collector Name Role Phone Sergo Mackey MD Primary Care Provider [phone] Encounter Details Date Type Department Care Team (Late st Contact Info) Description 08/07/2017 7:34 PM CDT - 08/08/2017 2:24 AM CDT Emergency [facility] Emergency Department [address] [place] [address] Rock Grant MD [facility] [address] [place], [place] [id number] Discharge Disposition: Discharge to home or self care Social History Tobacco Use Types Packs/Day Years Used Date Smoking Tobacco: Never Alcohol Use Standard Drinks/Week Comments No 0 (1 standard drink = 0.6 oz pur e alcohol) Comments Unknown Sex and Gender Information Value Date Recorded Sex Assigned at Not on file Legal Sex Female 4:15 AM LAY OUT FORMER Gender Identity Not on file Sexual Orientation [...] filedocumented in this encounter Care Teams Aluminum Can Collector Relationship Specialty Start Date End Date Sergo Mackey MD [address] [place] [address] PCP - General 08/05/17 10/05/21 documented as of this encounter
--- OUTSIDE RECORDS SUMMARY | 2024-11-08 06:44 | XMS_ITS | Encounter Summary ---
Author Organization [facility] Address [address] [place] [address] Phone Care Team Providers Care Voice Writing Reporter Name Role Phone Trenton Lomeli MD Primary Care Provider [phone] Neelima Velazquez MD Unavailable [phone] Encounter Details Date Type Department Care Team (Late st Contact Info) Description 12/04/2022 Telephone [facility] Cardiology [address] [facility] Advanced Medicine 8th [place] [address] [place] [address] Ginna Keith Social History Tobacco [...] file Legal Sex Female 4:15 AM HEAD BOOKKEEPER Gender Identity Not on file Sexual Orientation Not on file 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 [] [x]If 'Yes', Schedule first available with Cardio-Oncology Have you ever seen a Adobe Flex Developer in an office setting? [x] [] If [...] ANY cardiac issue? [x] [] Kept overnight [facility] Have you ever had an EKG? [x] [...] [x] [] Several 24hr, 2 month long, [facility] Have you ever had a Cardiac Cath? [...] where and when was device put in? Fiber Heel Piece Shaper? ([employer], [employer], [place]) Notes: Being referred [...] building entry and while inside the facility. BOOKKEEPER documented in this encounter Plan of Treatment Not on file documented as of this encounter Visit Diagnoses Not on filedocumented in this encounter Care Teams Voice Writing Reporter Relationship Specialty Start Date End Date Trenton Lomeli MD PCP - General Family Medicine 10/06/21 Neelima Velazquez MD [address] [address] Consulting Physician Gynecology 10/06/21 documented as of this encounter
--- OUTSIDE RECORDS SUMMARY | 2024-11-08 06:44 | XMS_ITS | Encounter Summary ---
Author Organization [facility] Healthcare Address [address] [place] [address] Care Team Providers Care Major Assembler Name Role Phone Trenton Lomeli MD Primary Care Provider [phone] Neelima Velazquez MD Unavailable [phone] Reason for Referral * Cardiology (Routine) - Closed Specialty Diagnoses / Procedures Referred By Contac t Referred To Contact Diagnoses POTS (postural orthostatic tachycardia syndrome) Procedures Transthoracic Echo (TTE) Complete W Doppler/CF Maura Wilson MD Phone: tel: fax: [facility] (All Locations) Referral ID Status Reason Start Date Expiration Date Visits Re quested Visits Authorized [id number] Closed 02/19/2023 03/20/2024 1 1 Reason for Visit * Cardiology (Routine) - Closed Specialty Diagnoses / Procedures Referred By Contac t Referred To Contact Diagnoses POTS (postural orthostatic tachycardia syndrome) Procedures Transthoracic Echo (TTE) Complete W Doppler/CF Maura Wilson MD Phone: tel: fax: [facility] (All Locations) Referral ID Status Reason Start Date Expiration Date Visits Re quested Visits Authorized [id number] Closed 02/19/2023 03/20/2024 1 1 Encounter Details Date Type Department Care Team (Latest Contact Info) Description 05/12/2023 3:20 PM CDT - 05/12/2023 11:59 PM CDT Hospital Encounter [facility] Cardiac Diagnostic Lab [address] 8th [place] [address] Maura Wilson MD [address] [place] [address] POTS (postural orthostatic tachycardia syndrome) Discharge Disposition: [...] on file Legal Sex Female 4:15 AM FAMILY SERVICES SPECIALIST Gender Identity Not on file Sexual Orientation Not on file 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 Not on file Not [...] test: 05/12/2023 Type of test: TTE w/Doppler [facility] #: 0 Date of : 1990 (F) Bar Welder: Pia Masters RDCS Referring Physician: MAURA WILSON MD Contrast Agent: Patient Refused Contrast Contrast Administered by: Supervised/Interpreted by: Celeste Meade MD Diagnosis: Location: [facility] Reason for test: POTS MV Structure: [...] 2=Hypo 3=Akinetic 4=Dyskin./Aneurysm 0=Not visualized) Parasternal Long [place]:MAS=1 BAS=1 MIL=1 ANAI=1 Parasternal Short [place]:MAS=1 MIS=1 OH=1 MIL=1 MAL=1 MA=1 Apical 4 Chambers:=1 MIS=1 BIS=1 BAL=1 MAL=1 AL=1 AC=1 Apical 2 Chambers:AI=1 OH=1 BI=1 BA=1 MA=1 AA=1 AC=1 LV Global [...] MD By signing this report, the attending deputy chief magistrate certifies that he or she has personally supervised and interpreted the echocardiogram and has reviewed and or edited and agrees with the written comments contained within the report. Procedure Note De Celeste Jarquin MD - 05/13/2023 Patient name: Alia Fabian Date of test: 05/12/2023 Type of test: TTE w/Doppler [facility] #: 0 Date of : 1990 (F) Bar Welder: Pia Masters RDCS Referring Physician: MAURA WILSON MD Contrast Agent: Patient Refused Contrast Contrast Administered by: Supervised/Interpreted by: Celeste Meade MD Diagnosis: Location: [facility] Reason for test: POTS MV Structure: [...] 2=Hypo 3=Akinetic 4=Dyskin./Aneurysm 0=Not visualized) Parasternal Long [place]:MAS=1 BAS=1 MIL=1 ANAI=1 Parasternal Short [place]:MAS=1 MIS=1 OH=1 MIL=1 MAL=1 MA=1 Apical 4 Chambers:=1 MIS=1 BIS=1 BAL=1 MAL=1 AL=1 AC=1 Apical 2 Chambers:AI=1 OH=1 BI=1 BA=1 MA=1 AA=1 AC=1 LV Global [...] MD By signing this report, the attending deputy chief magistrate certifies that he or she has personally supervised and interpreted the echocardiogram and has reviewed and or edited and agrees with the written comments contained within the report. Maura Wilson MD CV ECHO PROCEDURES Final Resul t documented in this encounter Visit Diagnoses Diagnosis POTS (postural orthostatic tachycardia syndrome) Unspecified tachycardia documented in this encounter Care Teams Major Assembler Relationship Specialty Start Date End Date Trenton Lomeli MD PCP - General Family Medicine 10/06/21 Neelima Velazquez MD [address] [address] Consulting Physician Gynecology 10/06/21 documented as of this encounter
--- OUTSIDE RECORDS SUMMARY | 2024-11-08 06:44 | XMS_ITS | Encounter Summary ---
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
--- OUTSIDE RECORDS SUMMARY | 2024-11-08 06:44 | XMS_ITS | Encounter Summary ---
Author Organization [facility] Healthcare Address [address] [place] [address] Care Team Providers Care Fuel Agent Name Role Phone Trenton Lomeli MD Primary Care Provider [phone] Neelima Velazquez MD Unavailable [phone] Encounter Details Date Type Department Care Team (Latest Contact Info) Description 10/03/2022 1:52 PM JOINT TERMINAL ATTACK CONTROLLER - 10/03/2022 11:59 PM JOINT TERMINAL ATTACK CONTROLLER Hospital Encounter [facility] [address] [place] [address] Acute non-recurrent pansinusitis Discharge Disposition: [...] on file Legal Sex Female 4:15 AM JOINT TERMINAL ATTACK CONTROLLER Gender Identity Not on file Sexual Orientation Not on file 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 ARI CLAY Comment:Testing performed by : [facility], [address] [place] [address]., [id number] Throat 10/03/2022 1:52 PM JOINT TERMINAL ATTACK CONTROLLER 10/04/2022 1:26 AM JOINT TERMINAL ATTACK CONTROLLER Narrative ARI CLAY - 10/05/2022 1:28 PM JOINT TERMINAL ATTACK CONTROLLER Testing performed by [facility] Microbiology Laboratory ([phone]). us Gayla Sykes NP LAB MICROBIOLOGY - GENERAL ORD ERABLES Final Result ARI CLAY [address] Department [place] [address] documented in this encounter Visit Diagnoses Diagnosis Acute non-recurrent pansinusitis documented in this encounter Care Teams Fuel Agent Relationship Specialty Start Date End Date Trenton Lomeli MD PCP - General Family Medicine 10/06/21 Neelima Velazquez MD [address] [address] Consulting Physician Gynecology 10/06/21 documented as of this encounter
--- OUTSIDE RECORDS SUMMARY | 2024-11-08 06:44 | XMS_ITS | Encounter Summary ---
Author Organization [facility] Healthcare Address [address] [place] [address] Care Team Providers Care Brimming Machine Operator Name Role Phone Referring, Unknown MD Primary Care Provider Unav ailable Encounter Details Date Type Department Care Team (Late st Contact Info) Description 06/04/2017 1:06 PM CDT - 06/05/2017 1:59 AM CDT Emergency [facility] Emergency Department [address] [place] [address] Unknown, Notinfile Discharge Disposition: Discharge to home or self care Social History Tobacco Use Types Packs/Day Years Used Date Smoking Tobacco: Never Alcohol Use Standard Drinks/Week Comments No 0 (1 standard drink = 0.6 oz pur e alcohol) Comments Unknown Sex and Gender Information Value Date Recorded Sex Assigned at Not on file Legal Sex Female 4:15 AM ARBOR PRESS OPERATOR Gender Identity Not on file Sexual [...] 7:38 PM CDT) HCG, ur, POC Negative [facility] Urine 06/04/2017 7:38 PM CDT 06/05/2017 7:14 AM CDT Rose Marie Rutledge MD LAB BLOOD ORDERABLES Final Re sult [facility] Department [place] [address] * Urinalysis reflex to microscopic (06/04/2017 6:43 PM CDT) Color, ur Yellow Yellow [facility] Clarity, ur Clear Clear [facility] Specific gravity, ur 1.030 1.003 - 1.030 [facility] pH, ur 5.0 5.0 - 8.0 [facility] Albumin, ur Negative Trace [facility] Glucose, ur ql Negative Negative [facility] Ketones, ur Negative Negative [facility] Bilirubin, ur Negative Negative [facility] Blood, ur Negative Negative [facility] Urobilinogen, ur <2.0 <2.0 mg/dL [facility] Nitrites, ur Negative Negative [facility] Leukocyte esterase, ur Negative Negative [facility] Urine 06/04/2017 6:43 PM CDT 06/04/2017 7:46 PM CDT Rose Marie Rutledge MD LAB URINE ORDERABLES Final Re sult Performing Organization Address [facility] de Phone Number [facility] Department [place] [address] * Basic metabolic panel (06/04/2017 6:43 PM CDT) Pathologist [facility] Sodium 140 135 - 145 mmol/L [facility] Potassium, pl 3.7 3.3 - 4.9 mmol/L [facility] Chloride 103 97 - 110 mmol/L [facility] CO2 24 22 - 32 mmol/L [facility] BUN 10 8 - 25 mg/dL [facility] Glucose 104 70 - 199 mg/dL [facility] Creatinine 0.68 0.60 - 1.10 mg/dL [facility] Calcium 9.3 8.5 - 10.3 mg/dL [facility] Anion gap 13 2 - 15 mmol/L [facility] Blood specimen (specimen) 06/04/2017 6:43 PM CDT 06/04/2017 7:03 PM CDT Rose Marie Rutledge MD LAB BLOOD ORDERABLES Edited R esult - Final Performing Organization Address [facility] de Phone Number [facility] Department [place] [address] * (ABNORMAL) Differential, auto (06/04/2017 6:43 PM CDT) [facility] Neutrophil pct 57.8 % [facility] Imm gran pct 0.3 % [facility] Lymphocyte pct 33.8 % [facility] Monocyte pct 5.9 % [facility] Eosinophil pct 1.4 % [facility] Basophil pct 0.8 % [facility] Neutrophil abs 5.93 1.70 - 6.50 K/cumm [facility] Imm gran abs 0.03 0.00 - 0.10 K/cumm [facility] Lymphocyte abs 3.47(H) 0.80 - 3.30 K/cumm [facility] Monocyte abs 0.61 0.20 - 0.80 K/cumm [facility] Eosinophil abs 0.14 0.00 - 0.50 K/cumm [facility] Basophil abs 0.08 0.00 - 0.10 K/cumm [facility] Blood specimen (specimen) 06/04/2017 6:43 PM CDT 06/04/2017 7:03 PM CDT us Rose Marie Rutledge MD LAB BLOOD ORDERABLES Final Re sult [facility] Department [place] [address] * (ABNORMAL) CBC with auto differential (06/04/2017 6:43 PM CDT) [facility] WBC 10.26(H) 3.80 - 9.90 K/cumm [facility] RBC 4.92 3.90 - 5.20 M/cumm [facility] Hgb 13.8 11.9 - 15.5 g/dL [facility] Hct 42.7 35.6 - 45.5 % [facility] MCV 86.8 81.3 - 96.4 fL [facility] MCH 28.0 27.1 - 33.3 pg [facility] MCHC 32.3 32.3 - 35.7 g/dL [facility] RDW CV 12.8 11.1 - 14.9 % [facility] RDW SD 40.6 35.7 - 48.1 fL [facility] Plt 341 150 - 400 K/cumm [facility] MPV 9.3 9.1 - 12.3 fL [facility] NRBC 0.0 0.0 - 0.2 % [facility] NRBC abs 0.00 0.00 - 0.01 K/cumm [facility] Blood specimen (specimen) 06/04/2017 6:43 PM CDT 06/04/2017 7:03 PM CDT Rose Marie Rutledge MD LAB BLOOD ORDERABLES Final Re sult [facility] Department [place] [address] documented in this encounter Visit Diagnoses Not on filedocumented in this encounter Care Teams Brimming Machine Operator Relationship Specialty Start Date End Date Referring, Unknown, PCP - General 06/04/17 08/04/17 documented as of this encounter
--- OUTSIDE RECORDS SUMMARY | 2024-11-08 06:44 | XMS_ITS | Encounter Summary ---
Author Organization [facility] Address [address] [place] [address] Phone Care Team Providers Care Knife Machine Operator Name Role Phone Trenton Lomeli MD Primary Care Provider [phone] Neelima Velazquez MD Unavailable [phone] Reason for Referral * Cardiology (Routine) - Closed Specialty Diagnoses / Procedures Referred By Contac t Referred To Contact Diagnoses POTS (postural orthostatic tachycardia syndrome) Procedures ECG 12 lead Emilie Wilson MD Phone: tel: fax: [facility] (All Locations) Referral ID Status Reason Start Date Expiration Date Visits Re quested Visits Authorized [id number] Closed 02/22/2023 03/23/2024 1 1 * Cardiology (Routine) - Closed Specialty Diagnoses / Procedures Referred By Contac t Referred To Contact Diagnoses POTS (postural orthostatic tachycardia syndrome) Procedures Transthoracic Echo (TTE) Complete W Doppler/CF Emilie Wilson MD Phone: tel: fax: [facility] (All Locations) Referral ID Status Reason Start Date Expiration Date Visits Re quested Visits Authorized [id number] Closed 02/19/2023 03/20/2024 1 1 Encounter Details Date Type Department Care Team (Late st Contact Info) Description 02/19/2023 3:30 PM CDT Office Visit [facility] Cardiology [address] [facility] 8th [place] [address] [place] [address] Emilie Wilson MD [address] [place] [address] POTS (postural orthostatic tachycardia syndrome) (Primary Dx) [...] on file Legal Sex Female 4:15 AM DRUG COUNSELOR Gender Identity Not on file Sexual Orientation Not on file 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 Lomeli: Chief Complaint: A 32-year-old female referred for evaluation of POTS. Problem List: 1. Possible postural tachycardia syndrome. a. Said to have 3 prior echocardiograms at [facility], most recently in 2018 with no recordsavailable. 2. Anxiety disorder. a. Previously seeing a psychiatrist. Currently seeing a therapist. 3. Coronavirus disease-August 2022. No hospitalizations. No oxygen. 4. History of serotonin syndrome. a. This occurred when she was at [facility] in [place], [place], associated with SSRI-hydroxyzine sleep medicine combination [...] going to gym and working with a head athletic trainer/strength coach. Her weight had gone down from 330 pounds to 260 pounds. Then, she had an increase in her symptoms and has not exercised and gained weight again. She tells me that she uses liquid IV when she wakes up feeling poorly, and it helps. She states in late December she was hospitalized for a week at [place] due to dehydration, felt better with IV [...] heart rate 107; 5 minutes, 136/96, heart qerc113; 10 minutes 128/83, heart rate 112. Head [...] normal. Data: My personal review of the [facility] mobile cardiac catheterization technologist for nearly 24 hours in December 2019: [...] is able to work out with a head athletic trainer/strength coach. We discussed the elective nature of tilt-table testing and I explained that tilt-table testing is the only diagnostic test for POTS. I explained the risks and benefits. [facility] and asked that she call our office [...] 09:16 AM Emilie Wilson M.D., F.A.C.C., F.H.R.S. mediation commissioner MG/mts cc: TRENTON LOMELI MD / / [...] #: 0 Date of : 1990 (F) Automobile Lights Assembler: Pia Masters RDCS Referring Physician: EMILIE WILSON MD Contrast Agent: Patient Refused Contrast Contrast Administered by: Supervised/Interpreted by: Celeste Agosto MD Diagnosis: Location: [facility] Reason for test: POTS MV Structure: Normal, [...] 2=Hypo 3=Akinetic 4=Dyskin./Aneurysm 0=Not visualized) Parasternal Long [place]:MAS=1 BAS=1 MIL=1 ANAI=1 Parasternal Short [place]:MAS=1 MIS=1 NC=1 MIL=1 MAL=1 MA=1 Apical 4 Chambers:=1 MIS=1 BIS=1 BAL=1 MAL=1 AL=1 AC=1 Apical 2 Chambers:AI=1 NC=1 BI=1 BA=1 MA=1 AA=1 AC=1 LV Global [...] MD By signing this report, the attending spd tech certifies that he or she has personally supervised and interpreted the echocardiogram and has reviewed and or edited and agrees with the written comments contained within the report. Procedure Note Celeste Agosto MD - 05/13/2023 Patient name: Alia Fabian Date of test: 05/12/2023 Type of test: [facility] #: 0 Date of : 1990 (F) Automobile Lights Assembler: Pia Masters RDCS Referring Physician: EMILIE WILSON MD Contrast Agent: Patient Refused Contrast Contrast Administered by: Supervised/Interpreted by: Celeste Agosto MD Diagnosis: Location: [facility] Reason for test: POTS MV Structure: Normal, [...] 2=Hypo 3=Akinetic 4=Dyskin./Aneurysm 0=Not visualized) Parasternal Long [place]:MAS=1 BAS=1 MIL=1 ANAI=1 Parasternal Short [place]:MAS=1 MIS=1 NC=1 MIL=1 MAL=1 MA=1 Apical 4 Chambers:=1 MIS=1 BIS=1 BAL=1 MAL=1 AL=1 AC=1 Apical 2 Chambers:AI=1 NC=1 BI=1 BA=1 MA=1 AA=1 AC=1 LV Global [...] MD By signing this report, the attending spd tech certifies that he or she has personally [...] tachycardia documented in this encounter Care Teams Knife Machine Operator Relationship Specialty Start Date End Date Trenton Lomeli MD PCP - General Family Medicine 10/06/21 Neelima Velazquez MD [address] [place] [address] Consulting Physician Gynecology 10/06/21 documented as of this encounter
--- OUTSIDE RECORDS SUMMARY | 2024-11-08 06:44 | XMS_ITS | Encounter Summary ---
Author Organization [facility] Address [address] [address] Care Team Providers Care Hydrate Thickener Operator Name Role Phone Trenton Lomeli MD Primary Care Provider [phone] Neelima Velazquez MD Unavailable [phone] Reason for Visit * Reason Onset Date Comments Test Results 11/10/2022 Encounter Details Date Type Department Care Team (Late st Contact Info) Description 11/10/2022 Telephone [facility] Primary Care at [address] [address] Trenton Lomeli MD [address] [place] [address] [address] [place] [address] Test Results Social History Tobacco [...] file Legal Sex Female 4:15 AM MANAGER MEDICAL Gender Identity Not on file Sexual Orientation Not on file 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 [facility] * Telephone Encounter - Renee Disla - 11/10/2022 3:13 PM CST Test Result Request Type of test: lab work Date of test: 11/09/22 Where was the test performed at?[facility] Did provider dictate result yet? Yes Where were results relayed from in the chart? Labs Tab Caller's Callback #: [phone] Additional Questions/Comments: Patient states that she had [...] Does message need to be routed?Yes-Action Needed [facility] documented in this encounter Plan of Treatment Not on file documented as of this encounter Visit Diagnoses Not on filedocumented in this encounter Care Teams Hydrate Thickener Operator Relationship Specialty Start Date End Date Trenton Lomeli MD PCP - General Family Medicine 10/06/21 Neelima Velazquez MD [address] [address] Consulting Physician Gynecology 10/06/21 documented as of this encounter
--- OUTSIDE RECORDS SUMMARY | 2024-11-08 06:44 | XMS_ITS | Encounter Summary ---
Author Organization [facility] Address [address] [address] Care Team Providers Care Supervisor Cell Efficiency Name Role Phone Trenton Lomeli MD Primary Care Provider [phone] Neelima Velazquez MD Unavailable [phone] Reason for Visit * Reason Comments URI Seen on 10/03/22 give n amox, symptoms no better- Yellow snot, congestion, fever (99-100). 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 Not on file Not on file Not on file documented as of this encounter Last Filed Vital Signs Vital Sign Reading Time Taken Comments Blood Pressure 142/85 10/22/2022 2:23 PM ACCESS DEVELOPER Pulse 90 10/22/2022 2:53 PM ACCESS DEVELOPER Temperature 37.1 ??C (98.8 ??F) 10/22/2022 2:23 PM CS T Respiratory Rate 18 10/22/2022 2:23 PM ACCESS DEVELOPER Oxygen Saturation 100% 10/22/2022 2:23 PM ACCESS DEVELOPER Inhaled Oxygen Concentration - - Weight 133.4 kg (294 lb) 10/22/2022 2:23 PM ACCESS DEVELOPER Height 171.5 cm (5' 7.5 ) 10/22/2022 2:23 PM ACCESS DEVELOPER Body Mass Index 45.37 10/22/2022 2:23 PM ACCESS DEVELOPER documented in this encounter Ordered Prescriptions Prescription [...] and frontal sinus tenderness present. Mouth/Throat: Lips: [place]. Mouth: Mucous membranes are moist. Tongue: Tongue [...] WISDOM TOOTH EXTRACTION Oral Surgery Tooth Extraction [place] Tooth - (Added by TW Conv) Assessment/Plan [...] ask questions, questions answered. Saman Dinero NP SS DEVELOPER documented in this encounter Plan of Treatment Not on file documented as of this encounter Results * Influenza A/B, RSV, and COVID-19 PCR Nasopharyngeal (10/22/2022 2:31 PM ACCESS DEVELOPER) Pathologist [facility] COVID-19 RNA Negative Negative [facility] Influenza A RNA Negative Negative [facility] Influenza B RNA Negative Negative [facility] RSV RNA Negative Negative [facility] Comment: Interpretive data: This test is performed using the [employer] Xpert Xpress CoV-2/Flu/RSV plus assay. This is [...] revised 2021. Nasopharyngeal 10/22/2022 2: 31 PM ACCESS DEVELOPER 10/22/2022 4:25 PM ACCESS DEVELOPER Narrative [facility] - 10/22/2022 5:31 PM ACCESS DEVELOPER Is the Patient experiencing symptoms consistent with COVID?->Yes Date of Symptom Onset->10/01/22 Reason for testing?->Symptomatic Known exposure to confirmed or suspected COVID-19 case?->No Is the patient experiencing any symptoms consistent with COVID (eg. Fever, cough, shortness of breath)?->Yes What is the reason for testing?->Symptoms of COVID-19 in low-risk group (Batched) Saman Dinero NP LAB MICROBIOLOGY - GENERAL [facility]BAR[facility] Final Result [facility] [address] [place] [address] documented in this encounter Visit Diagnoses Diagnosis Acute recurrent maxillary sinusitis- Primary Acute recurrent maxillary sinusitis documented in this encounter Additional Health Concerns Infection Onset Date Last Indicated Resolved Time COVID: Suspected 10/22/2022 10/22/2022 10/22/2022 5:32 PM ACCESS DEVELOPER documented as of this encounter Care Teams Supervisor Cell Efficiency Relationship Specialty Start Date End Date Trenton Lomeli MD PCP - General Family Medicine 10/06/21 Neelima Velazquez MD [address] [address] Consulting Physician Gynecology 10/06/21 documented as of this encounter
--- OUTSIDE RECORDS SUMMARY | 2024-11-08 06:44 | XMS_ITS | Encounter Summary ---
Author Organization [facility] Address [address] [address] Care Team Providers Care Station Baggage Porter Name Role Phone Trenton Lomeli MD Primary Care Provider [phone] Neelima Velazquez MD Unavailable [phone] Reason for Visit * Reason Comments New Patient new patient Encounter Details Date Type Department Care Team (Late st Contact Info) Description 10/06/2021 2:15 PM PAINTING DEPARTMENT SUPERVISOR Office Visit [facility] Primary Care at [address] [address] Trenton Lomeli MD [address] [place] [address] [address] [place] [address] Encounter for medical examination to [...] on file Legal Sex Female 4:15 AM PAINTING DEPARTMENT SUPERVISOR Gender Identity Not on file Sexual Orientation Not on file 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 file Not on file Not on file documented as of this encounter Last Filed Vital Signs Vital Sign Reading Time Taken Comments Blood Pressure 120/80 10/06/2021 1:55 PM PAINTING DEPARTMENT SUPERVISOR Pulse 110 10/06/2021 1:55 PM PAINTING DEPARTMENT SUPERVISOR Temperature 36.6 ??C (97.8 ??F) 10/06/2021 1:55 PM CS T Respiratory Rate 16 10/06/2021 1:55 PM PAINTING DEPARTMENT SUPERVISOR Oxygen Saturation 98% 10/06/2021 1:55 PM PAINTING DEPARTMENT SUPERVISOR Inhaled Oxygen Concentration - - Weight 120.7 kg (266 lb) 10/06/2021 1:55 PM PAINTING DEPARTMENT SUPERVISOR Height 170.2 cm (5' 7 ) 10/06/2021 1:55 PM PAINTING DEPARTMENT SUPERVISOR Body Mass Index 41.66 10/06/2021 1:55 PM PAINTING DEPARTMENT SUPERVISOR documented in this encounter Patient Instructions * Patient Instructions* Trenton Lomeli MD - 10/06/2021 2:15 PM PAINTING DEPARTMENT SUPERVISOR Images from the original note were not [...] of viruses cause the flu. The viruses private branch exchange installer time, so new vaccines are made each [...] could distract you and cause an accident. cryolite recovery operator if you need to make a call [...] refuse treatment. The above information is an lab aide only. It is not intended as medical advice for individual conditions or treatments. Talk to your doctor, nurse or pharmacist before following any medical regimen to see if it is safe and effective for you. ?? 2017 [employer] Information is for End User's use only and may not be sold, redistributed or otherwise used for commercial purposes. All illustrations and images included in CareNotes?? are the copyrighted property of [employer]. or Pinpoint MD. Thanks for coming in today! My medical assistants and I are thankful you have trusted us with your care, and hope that you received EXCELLENT care today! Please do not hesitate to call if you have any questions or concerns at [phone]. You may receive a phone call, text, MYCHART message, or e-mail asking about your care today. We would love to hear your feedback on how EXCELLENT your care wastoday! Wishing you better health, always. Dr. Lomeli TING DEPARTMENT SUPERVISOR documented in this encounter Progress Notes * [...] WISDOM TOOTH EXTRACTION Oral Surgery Tooth Extraction [place] Tooth - (Added by TW Conv) Family [...] - TSH reflex to free T4; Future TING DEPARTMENT SUPERVISOR documented in this encounter Miscellaneous Notes * Assessment & Plan Note - Trenton Lomeli MD - 10/08/2021 2:56 PM PAINTING DEPARTMENT SUPERVISOR Associated Problem(s): Well adult exam A initial [...] These have been ordered/arranged unless otherwise indicated. TING DEPARTMENT SUPERVISOR TING DEPARTMENT SUPERVISOR documented in this encounter Plan of Treatment Not on file documented as of this encounter Results * TSH reflex to free T4 (10/06/2021 2:39 PM PAINTING DEPARTMENT SUPERVISOR) TSH 0.84 0.30 - 4.20 mcIUnit/mL [facility] Blood 10/06/2021 2:39 PM PAINTING DEPARTMENT SUPERVISOR 10/06/2021 7:52 PM PAINTING DEPARTMENT SUPERVISOR Trenton Lomeli MD LAB BLOOD ORDERABLES Final Result Performing Organization Address City/State/ZIP [place] Phone Number [facility] [address] Department [place] [address] * (ABNORMAL) Lipid panel (10/06/2021 2:39 PM PAINTING DEPARTMENT SUPERVISOR) Cholesterol 147 30 - 199 mg/dL [facility] [...] 6 [facility] Blood 10/06/2021 2:39 PM PAINTING DEPARTMENT SUPERVISOR 10/06/2021 7:52 PM PAINTING DEPARTMENT SUPERVISOR us Trenton Lomeli MD LAB BLOOD ORDERABLES Final Result [facility] [address] Department [place] [address] * (ABNORMAL) Comprehensive metabolic panel (10/06/2021 2:39 PM PAINTING DEPARTMENT SUPERVISOR) Sodium 141 135 - 145 mmol/L CERNER [...] Units/L [facility] Blood 10/06/2021 2:39 PM PAINTING DEPARTMENT SUPERVISOR 10/06/2021 7:52 PM PAINTING DEPARTMENT SUPERVISOR us Trenton Lomeli MD LAB BLOOD ORDERABLES Final Result Performing Organization Address City/State/[facility] [place] Phone Number [facility] [address] Department [place] [address] * (ABNORMAL) CBC with auto differential (10/06/2021 2:39 PM PAINTING DEPARTMENT SUPERVISOR) WBC 5.6 3.8 - 9.9 K/cumm [facility] Hgb 13.6 11.9 - 15.5 g/dL [facility] Hct 42.7 35.6 - 45.5 % [facility] Plt 338 150 - 400 K/cumm [facility] MPV 9.5 9.1 - 12.3 fL [facility] RBC 4.83 3.90 - 5.20 M/cumm [facility] MCV 88.4 81.3 - 96.4 fL [facility] MCH 28.2 27.1 - 33.3 pg [facility] MCHC 31.9(L) 32.3 - 35.7 g/dL [facility] RDW CV 12.9 11.1 - 14.9 % [facility] RDW SD 41.9 35.7 - 48.1 fL [facility] NRBC abs 0.00 0.00 - 0.01 K/cumm [facility] Blood 10/06/2021 2:39 PM PAINTING DEPARTMENT SUPERVISOR 10/06/2021 7:52 PM PAINTING DEPARTMENT SUPERVISOR us Trenton Lomeli MD LAB BLOOD ORDERABLES Final Result [place] [address] Department [place] [address] documented in this encounter Visit Diagnoses Diagnosis [...] 08/10/2022 added in this encounter Care Teams Station Baggage Porter Relationship Specialty Start Date End Date Trenton Lomeli MD PCP - General Family Medicine 10/06/21 Neelima Velazquez MD [address] [address] Consulting Physician Gynecology 10/06/21 documented as of this encounter
--- OUTSIDE RECORDS SUMMARY | 2024-11-08 06:44 | XMS_ITS | Encounter Summary ---
Author Organization [facility] Address [address] [address] Care Team Providers Care Print Washer Name Role Phone Trenton Lomeli MD Primary Care Provider [phone] Neelima Velazquez MD Unavailable [phone] Maura Wilson MD Unavailable [phone] Reason for Referral * Diagnostic Imaging (Routine) - Closed Specialty Diagnoses / Procedures Referred By Contac t Referred To Contact Diagnoses Class 3 severe obesity due to excess calories without serious comorbidity with body mass index (BMI) of 45.0 to 49.9 in adult (HCC) RUQ discomfort Procedures US RUQ Trenton Lomeli MD [address] [place] [address] Phone: tel: fax: External Order Referral ID Status Reason Start Date Expiration Date Visits Re quested Visits Authorized [id number] Closed 06/16/2023 07/15/2024 1 1 Reason for Visit * Reason Comments Follow-up Pt is here to f/u fr om cardiology on POTS dx and imaging. 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 You may receive a phone call, text, MYCHART message, or e-mail asking about your care today. We would love to hear your feedback on how EXCELLENT your care wastoday! Wishing you better health, always. Dr. Lomeli * Attachments The following attachments cannot be sent through Care Everywhere. * DASH Eating Plan (General Information) (Yakut) documented in this encounter Progress Notes * [...] office note has been partially dictated using AquaMost software, and as a result portions of the record may have been created with this software. Occasional wrong-word or '[id number]' substitutions may have occurred due to the [...] thickening or pericholecystic fluid. No positive sonographic [place] sign reported. ?? BILIARY: ?? There is [...] D: ??08/06/2023 9:03 PM T: Report ID: [id number] Reading Location: ??[id number] Procedure Note Rosalva Patino MD - 08/06/2023 [...] wall thickening or pericholecystic fluid. No positivesonographic [place] sign reported. BILIARY: There is no intrahepatic [...] Rosalva Patino M.D. QX T: Report ID: [id number] Reading Location: [id number] us Trenton Lomeli MD IMG US PROCEDURES [...] documented as of this encounter Care Teams Print Washer Relationship Specialty Start Date End Date Trenton Lomeli MD PCP - General Family Medicine 10/06/21 Neelima Velazquez MD [address] [address] Consulting Physician Gynecology 10/06/21 Maura Wilson MD [address] [place] [address] Consulting Physician Cardiology 06/16/23 documented as of this encounter
--- OUTSIDE RECORDS SUMMARY | 2024-11-08 06:44 | XMS_ITS | Encounter Summary ---
Author Organization [facility] Medical [facility] Address [address] [facility] [address] [place] [address] Care Team Providers Care Vehicle Trimmer Name Role Phone Trenton Lomeli MD Primary Care Provider [phone] Neelima Velazquez MD Unavailable [phone] Encounter Details Date Type Department Care Team (Late st Contact Info) Description 11/10/2022 Orders Only [facility] Primary Care at [address] [address] Trenton Lomeli MD [address] [place] [address] [address] [place] [address] Mixed hyperlipidemia (Primary Dx) Social [...] on file Legal Sex Female 4:15 AM EXPORT COORDINATOR Gender Identity Not on file Sexual Orientation Not on file 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
--- OUTSIDE RECORDS SUMMARY | 2024-11-08 06:44 | XMS_ITS | Encounter Summary ---
Author Organization [facility] Address [address] [place] [address] Care Team Providers Care Primary Substance Abuse Counselor Name Role Phone Trenton Lomeli MD Primary Care Provider [phone] Neelima Velazquez MD Unavailable [phone] Encounter Details Date Type Department Care Team (Latest Contact Info) Description 10/22/2022 2:31 PM OFFICE CHAIR ASSEMBLER - 10/22/2022 11:59 PM OFFICE CHAIR ASSEMBLER Hospital Encounter [facility] [id number] [place], [place] [id number] Acute recurrent maxillary sinusitis Discharge Disposition: Discharge [...] on file Legal Sex Female 4:15 AM OFFICE CHAIR ASSEMBLER Gender Identity Not on file Sexual Orientation Not on file 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 Patient should rest, stay hydrated, and take OTC medications as needed. Monitor symptoms and if they worsen follow up with primary care doctoror ER if needed. CE CHAIR ASSEMBLER documented in this encounter Plan of Treatment Not on file documented as of this encounter Procedures Procedure Name Priority Date/Time Associated Diagnosis Comments INFLUENZA A/B, RSV, AND COVID-19 PCR Routine 10/22/2022 2:31 PM OFFICE CHAIR ASSEMBLER Acute recurrent maxillary sinusitis documented in this encounter Results * Influenza A/B, RSV, and COVID-19 PCR Nasopharyngeal (10/22/2022 2:31 PM OFFICE CHAIR ASSEMBLER) COVID-19 RNA Negative Negative [facility] Influenza A RNA Negative Negative [facility] Influenza B RNA Negative Negative [facility] RSV RNA Negative Negative [facility] Comment: Interpretive data: This test is performed using the [employer] Xpert Xpress CoV-2/Flu/RSV plus assay. This is [...] revised 2021. Nasopharyngeal 10/22/2022 2: 31 PM OFFICE CHAIR ASSEMBLER 10/22/2022 4:25 PM OFFICE CHAIR ASSEMBLER Narrative [facility] - 10/22/2022 5:31 PM OFFICE CHAIR ASSEMBLER Is the Patient experiencing symptoms consistent with COVID?->Yes Date of Symptom Onset->10/01/22 Reason for testing?->Symptomatic Known exposure to confirmed or suspected COVID-19 case?->No Is the patient experiencing any symptoms consistent with COVID (eg. Fever, cough, shortness of breath)?->Yes What is the reason for testing?->Symptoms of COVID-19 in low-risk group (Batched) Saman Dinero NP LAB MICROBIOLOGY - [facility] Final Result Performing Organization Address City/State/[facility] Co al Phone Number [facility] [address] Department [place] [address] documented in this encounter Visit Diagnoses Diagnosis Acute recurrent maxillary sinusitis documented in this encounter Additional Health Concerns Infection Onset Date Last Indicated Resolved Time COVID: Suspected 10/22/2022 10/22/2022 10/22/2022 5:32 PM OFFICE CHAIR ASSEMBLER documented as of this encounter Care Teams Primary Substance Abuse Counselor Relationship Specialty Start Date End Date Trenton Lomeli MD PCP - General Family Medicine 10/06/21 Neelima Velazquez MD [address] [address] Consulting Physician Gynecology 10/06/21 documented as of this encounter
--- OUTSIDE RECORDS SUMMARY | 2024-11-08 11:15 | XMS_ITS | Encounter Summary ---
Author Organization [facility] Address [address] [place] [address]. [place] [address] [place] [address] Care Team Providers Care Braiding Machine Operator Name Role Phone Sergo Mackey MD Primary Care Provider Julian short Encounter Details Date Type Department Care Team (Late st Contact Info) Description 04/07/2017 Abstract [facility] [place] [address] Sergo Mackey MD Social History [...] CLEAN CATCH 04/07/2017 5:42 PM CDT [facility] COLOR (U) YELLOW 04/07/2017 8:01 PM CDT [facility] TRANSPARENCY CLOUDY 04/07/2017 8:01 PM CDT [facility] SPECIFIC GRAVITY (U) 1.026 1.001 - 1.030 04/07/2017 8:01 PM CDT [facility] U PH 6.0 5.0 - 9.0 04/07/2017 8:01 PM CDT [facility] LEUKOCYTES (U) NEGATIVE NEGATIVE 04/07/2017 8:01 PM T [facility] NITRITES NEGATIVE NEGATIVE 04/07/2017 8:01 PM CDT [facility] PROTEIN (U) NEGATIVE <30 MG/DL 04/07/2017 8:01 PM CDT [facility] URINE GLUCOSE NEGATIVE NEGATIVE MG/DL 04/07/2017 8:01 PM CDT [facility] KETONES MG/DL (U) NEGATIVE NEGATIVE MG/DL 04/07/2017 8:01 PM T [facility] UROBILINOGEN 2.0(A) NEGATIVE MG/DL 04/07/2017 8:01 PM T [facility] BILIRUBIN (U) NEGATIVE NEGATIVE MG/DL 04/07/2017 8:01 PM CDT [facility] BLOOD (U) NEGATIVE NEGATIVE 04/07/2017 8:01 PM CDT [facility] SQUAMOUS EPITHELIALS MANY /LPF 04/07/2017 8:01 PM CDT [facility] MUCUS RARE /LPF 04/07/2017 8:01 PM CDT [facility] WBC/HPF 1 <6 /HPF 04/07/2017 8:01 PM CDT [facility] RBC/HPF 3 <6 /HPF 04/07/2017 8:01 PM T [facility] 04/07/2017 8:54 AM CDT 04/07/2017 6:22 PM CDT us Generic Conversion Md JOHNSON URINE ORDERABLES Final Result [facility] [address] [place] [address], [place] [phone] * CULTURE URINE (04/07/2017 8:54 AM CDT) SPEC DESCRIPTION URINE CLEAN CATCH 04/07/2017 5:42 PM CDT [facility] SPECIAL REQUESTS NO SPECIAL REQUEST 04/07/2017 5:42 PM CDT [facility] CULTURE RESULT POLYMICROBIAL GROWTH CONSISTENT WITH NORMAL GENITAL NIKHIL. ?? SUSCEPTIBILITIES NOT ROUTINELY PERFORMED. 04/10/2017 10:09 AM CDT [facility] URINE SPECIMEN OBTAINED BY CLEAN CATCH PROCEDURE / Unknown 04/07/2017 8:54 AM CDT 04/07/2017 6:21 PM CDT us Generic Conversion Md JOHNSON MICROBIOLOGY - GENERAL ORDERABLES Final Result [facility] [address] [place] [address], documented in this encounter Visit Diagnoses Diagnosis Dysuria documented in this encounter Care Teams Braiding Machine Operator Relationship Specialty Start Date End Date Sergo Mackey MD PCP - General 04/07/17 documented as of this encounter
--- OUTSIDE RECORDS SUMMARY | 2024-11-08 11:15 | XMS_ITS | Encounter Summary ---
Author Organization [facility] Address [facility] [place] [address] [place] [address] Care Team Providers Care Plant Propagator Name Role Phone Sergo Mackey MD Primary Care Provider Julian short Encounter Details Date Type Department Care Team (Late st Contact Info) Description 07/06/2017 Abstract [facility] Family & Internal Medicine [address] [address] Sergo Mackey MD Social History [...] NEEDED; Therapy: 10Sep2016 to (Evaluate:01Feb2017) Requested for: [id number]; Last Rx:[id number] Ordered Rx By: Sergo Mackey; Dispense: 30 Days ; #:90 Tablet; Refill: 1; For: Bipolar mood disorder; JULIANA = N; Print Rx 2. Fluticasone Propionate 50 MCG/ACT Nasal Suspension; USE 2 SPRAYS IEN QD; Therapy: [id number] to (Evaluate:15Apr2017) Requested for: [id number]; Last Rx:[id number] Ordered Rx By: Sergo Mackey; Dispense: 30 Days ; #:1 X 16 GM Bottle; Refill: 0; For: Allergic rhinitis;JULIANA = N; Verified Transmission to [facility] [address]; Last Updated By: Dayron Rae;03/16/2017 3:38:23 PM Allergies 1. 12 Hour Decongestant TB12 Recorded By: Shirley Zhang; 04/10/2014 3:10:36 PM Vitals Recorded: [id number] 02:18PM Heart Rate 117 Respiration 16 Systolic [...] generalized; JULIANA = N; Verified Transmission to [facility] [address]; Last Updated By: Dayron Rae; 07/06/2017 2:59:43 PM 2. MRI C SPINE W/O; Status:Need Information - Financial Authorization; Requested for:[id number]; Perform:Other Radiology; Due:05Aug2017; Last Updated By:Carmela Haynes; 07/06/2017 3:06:15 PM;Ordered; For:Frequent falls, Labile blood pressure, Neck pain, Tremor, Weakness generalized; Ordered By:Sergo Mackey; [facility] 3. MRI L SPINE W/O; Status:Need Information - Financial Authorization; Requested for:[id number]; Perform:Other Radiology; Due:05Aug2017; Last Updated By:Fariba Garvey; [...] Status:Hold For - Manual Activation; Requested for:06Jul2017; Perform:[facility]; Due:05Aug2017; Last Updated By:Fariba Garvey; 07/06/2017 2:59:16 PM;Ordered; For:Frequent falls, Labile blood pressure, Neck pain, Tremor, Weakness generalized; Ordered By:Sergo Mackey; 6. Vitamin D 25 - Hydroxy; Status:Hold For - Manual Activation; Requested for:06Jul2017; Perform:[facility]; Due:05Aug2017; Last Updated By:Fariba Garvey; 07/06/2017 2:59:16 PM;Ordered; For:Frequent falls, Labile blood pressure, Neck pain, Tremor, Weakness generalized; Ordered By:Sergo Mackey; She understands I will have exhausted my input into her chronic symptoms after these tests are performed. She'll need followup with her neurologist and log raft worker for further direction. Signatures Electronically signed by : eSrgo Mackey M.D.; Jul 07 2017 5:33AM SUBMARINE ELEMENT COORDINATOR (Author) documented in this encounter Plan of Treatment Not on file documented as of this encounter Visit Diagnoses Not on filedocumented in this encounter Care Teams Plant Propagator Relationship Specialty Start Date End Date Sergo Mackey MD PCP - General 04/07/17 documented as of this encounter
--- OUTSIDE RECORDS SUMMARY | 2024-11-08 11:15 | XMS_ITS | Encounter Summary ---
Author Organization [facility] - [facility] Address [address] [place] [address]. [place], [place] [address] [place] [address] Care Team Providers Care Bottom Cementer Name Role Phone Sergo Mackey MD Primary Care Provider Julian short Encounter Details Date Type Department Care Team (Latest Contact Info) Description 09/02/2017 Abstract [facility] Medical Group [...] on filedocumented in this encounter Care Teams Bottom Cementer Relationship Specialty Start Date End Date Sergo Mackey MD PCP - General 04/07/17 documented as of this encounter
--- OUTSIDE RECORDS SUMMARY | 2024-11-08 11:15 | XMS_ITS | Encounter Summary ---
Author Organization [facility] - [facility] Address [address] [place] [address]. [place], [place] [address] [place] [address] Care Team Providers Care Pretzel Cooker Name Role Phone Sergo Mackey MD Primary Care Provider Julian short Encounter Details Date Type Department Care Team (Latest Contact Info) Description 04/13/2017 Abstract [facility] Medical Group Social History [...] on filedocumented in this encounter Care Teams Pretzel Cooker Relationship Specialty Start Date End Date Sergo Mackey MD PCP - General 04/07/17 documented as of this encounter
--- OUTSIDE RECORDS SUMMARY | 2024-11-08 11:15 | XMS_ITS | Encounter Summary ---
Author Organization [facility] - [facility] Address [address] [place] [address]. [place], [place] [address] [place] [address] Care Team Providers Care Director Pharmaceutical Name Role Phone Sergo Mackey MD Primary Care Provider Julian short Encounter Details Date Type Department Care Team (Latest Contact Info) Description 04/11/2017 Abstract [facility] Medical Group Social History Tobacco Use [...] Bilirubin Negative Ketones 5 mg/dL-Trace A Specific [facility] 1.020 Blood Negative pH 7.0 5.0 - [...] Eloisa Wolfe R.N.; Apr 12 2017 8:14AM MANAGER DRUG (Author) documented in this encounter Plan of Treatment Not on file documented as of this encounter Visit Diagnoses Not on filedocumented in this encounter Care Teams Director Pharmaceutical Relationship Specialty Start Date End Date Sergo Mackey MD PCP - General 04/07/17 documented as of this encounter
--- OUTSIDE RECORDS SUMMARY | 2024-11-08 11:15 | XMS_ITS | Encounter Summary ---
Author Organization [facility] - [facility] Address [address] [place] [address]. [place], [place] [address] [place] [address] Care Team Providers Care Floor Assembler Name Role Phone Sergo Mackey MD Primary Care Provider Julian short Encounter Details Date Type Department Care Team (Latest Contact Info) Description 06/29/2017 Abstract [facility] Medical Group [...] on filedocumented in this encounter Care Teams Floor Assembler Relationship Specialty Start Date End Date Sergo Mackey MD PCP - General 04/07/17 documented as of this encounter
--- OUTSIDE RECORDS SUMMARY | 2024-11-08 11:15 | XMS_ITS | Encounter Summary ---
Author Organization [facility] - [facility] Address [address] [place] [address]. [address] [place] [address] Care Team Providers Care Orchid Transplanter Name Role Phone Sergo Mackey MD Primary Care Provider Julian short Encounter Details Date Type Department Care Team (Latest Contact Info) Description 09/07/2017 Abstract [facility] Medical Group [...] on filedocumented in this encounter Care Teams Orchid Transplanter Relationship Specialty Start Date End Date Sergo Mcakey MD PCP - General 04/07/17 documented as of this encounter
--- OUTSIDE RECORDS SUMMARY | 2024-11-08 11:15 | XMS_ITS | Encounter Summary ---
Author Organization [facility] - [facility] Address [address] [place] [address]. [place], [place] [address] [place] [address] Care Team Providers Care Machine Long Goods Helper Name Role Phone Sergo Mackey MD Primary Care Provider Julian short Encounter Details Date Type Department Care Team (Latest Contact Info) Description 04/08/2017 Abstract [facility] Medical Group Social History Tobacco Use Types [...] on filedocumented in this encounter Care Teams Machine Long Goods Helper Relationship Specialty Start Date End Date Sergo Mackey MD PCP - General 04/07/17 documented as of this encounter
--- OUTSIDE RECORDS SUMMARY | 2024-11-08 11:15 | XMS_ITS | Encounter Summary ---
Author Organization [facility] - [facility] Address [facility]. [place], [place] [address] [place] [address] Care Team Providers Care Journeyman Molder Name Role Phone Sergo Mackey MD Primary Care Provider Julian short Encounter Details Date Type Department Care Team (Latest Contact Info) Description 08/23/2017 Abstract [facility] Medical Group Social History Tobacco [...] Jovanni Omalley MA; Aug 23 2017 9:39AM SANITATION INSPECTOR (Author) documented in this encounter Plan of Treatment Not on file documented as of this encounter Visit Diagnoses Not on filedocumented in this encounter Care Teams Journeyman Molder Relationship Specialty Start Date End Date Sergo Mackey MD PCP - General 04/07/17 documented as of this encounter
--- OUTSIDE RECORDS SUMMARY | 2024-11-08 11:15 | XMS_ITS | Encounter Summary ---
Author Organization [facility] Address [facility]. [place], [place] [address] [place] [address] Care Team Providers Care Luggage Maker Name Role Phone Sergo Mackey MD Primary Care Provider Julian short Encounter Details Date Type Department Care Team (Latest Contact Info) Description 05/25/2017 Abstract [facility] Medical Group Social History [...] Task Name: Medical Complaint Callback Assigned To: [facility] Narendra Regarding Patient: Alia Fabian, Status: In Progress Comment: Jaclyn Santana - 25 May 2017 11:21 AM TASK CREATED Caller: Lay, Mother; Medical Complaint; [phone] pt saw neuro Damaris Harding at [place] last Wednesday for weakness in legs, arms, [...] order and wants us to order phone [phone] for neuro pts #[phone] Sergo Mackey - 25 May 2017 11:54 [...] Fariba Garvey MA; May 25 2017 4:34PM GERICARE AIDE TEACHER (Author) documented in this encounter Plan of Treatment Not on file documented as of this encounter Visit Diagnoses Not on filedocumented in this encounter Care Teams Luggage Maker Relationship Specialty Start Date End Date Sergo Mackey MD PCP - General 04/07/17 documented as of this encounter
--- OUTSIDE RECORDS SUMMARY | 2024-11-08 11:15 | XMS_ITS | Encounter Summary ---
Author Organization [facility] Address [address] [place] [address]. [place], [place] [address] [place] [address] Care Team Providers Care Oven Roaster Name Role Phone Sergo Mackey MD Primary Care Provider Julian short Encounter Details Date Type Department Care Team (Latest Contact Info) Description 08/10/2018 Abstract [facility] Medical Group James Luther MD [...] filedocumented in this encounter Care Teams Oven Roaster Relationship Specialty Start Date End Date Sergo Mackey MD PCP - General 04/07/17 documented as of this encounter
--- OUTSIDE RECORDS SUMMARY | 2024-11-08 11:15 | XMS_ITS | Clinical Summary ---
Author Organization [facility] Address [address] [place] [address]. [place] [address] [place] [address] Care Team Providers Care Systems Analysis Manager Name Role Phone Sergo Mackey [...] age to complete this topic Care Teams Systems Analysis Manager Relationship Specialty Start Date End Date Sergo Mackey MD PCP - General 04/07/17
--- OUTSIDE RECORDS SUMMARY | 2024-11-08 11:15 | XMS_ITS | Encounter Summary ---
Author Organization [facility] Address [address] [place] [address]. [place], [place] [address] [place] [address] Care Team Providers Care Front End Software Developer Name Role Phone Sergo Mackey MD Primary Care Provider Julian short Encounter Details Date Type Department Care Team (Latest Contact Info) Description 06/08/[address] [facility] Medical Group Social [...] on filedocumented in this encounter Care Teams Front End Software Developer Relationship Specialty Start Date End Date Sergo Mackey MD PCP - General 04/07/17 documented as of this encounter
--- OUTSIDE RECORDS SUMMARY | 2024-11-08 11:15 | XMS_ITS | Encounter Summary ---
Author Organization [facility] Address [address] [place] [address]. [place], [place] [address] [place] [address] Care Team Providers Care Lithographer Apprentice Name Role Phone Sergo Mackey MD Primary Care Provider Julian short Encounter Details Date Type Department Care Team (Latest Contact Info) Description 06/18/2017 Abstract [facility] Medical Group Social History Tobacco Use Types [...] on filedocumented in this encounter Care Teams Lithographer Apprentice Relationship Specialty Start Date End Date Sergo Mackey MD PCP - General 04/07/17 documented as of this encounter
--- OUTSIDE RECORDS SUMMARY | 2024-11-08 11:15 | XMS_ITS | Encounter Summary ---
Author Organization [facility] - [facility] Address [address] [place] [address]. [place], [place] [address] [place] [address] Care Team Providers Care Marketing Strategy Lead Name Role Phone Sergo Mackey MD Primary Care Provider Julian short Encounter Details Date Type Department Care Team (Latest Contact Info) Description 09/16/2017 Abstract [facility] Medical Group [...] filedocumented in this encounter Care Teams Marketing Strategy Lead Relationship Specialty Start Date End Date Sergo Mackey MD PCP - General 04/07/17 documented as of this encounter
--- OUTSIDE RECORDS SUMMARY | 2024-11-08 11:15 | XMS_ITS | Encounter Summary ---
Author Organization [facility] - [facility] Address [address] [place] [address]. [place], [place] [address] [place] [address] Care Team Providers Care Ad Setter Name Role Phone Sergo Mackey MD Primary Care Provider Julian short Encounter Details Date Type Department Care Team (Latest Contact Info) Description 08/10/2017 Abstract [facility] Medical Group Social History Tobacco [...] on filedocumented in this encounter Care Teams Ad Setter Relationship Specialty Start Date End Date Sergo Mackey MD PCP - General 04/07/17 documented as of this encounter
--- OUTSIDE RECORDS SUMMARY | 2024-11-08 11:15 | XMS_ITS | Encounter Summary ---
Author Organization [facility] Address [facility] [place] [address] [place] [address] Care Team Providers Care Drum Cleaner Name Role Phone Sergo Mackey MD Primary Care Provider Julian short Encounter Details Date Type Department Care Team (Late st Contact Info) Description 04/07/2017 Abstract [facility] Medical [facility] Family & Internal Medicine [address] [address] Sergo Mackey MD Social History [...] BY MOUTH TWICE DAILY; Therapy: 13Aug2016 to (Evaluate:[id number]) Requested for: 21Sep2016; Last Rx:21Sep2016 Ordered Rx By: Nellie Moy; Dispense: 30 Days ; #:60 Capsule; Refill: 0; For: Abdominal cramping, generalized; JULIANA = N; Print Rx; Last Updated By: MunchAway; 09/21/2016 8:25:38 AM 2. ClonazePAM 1 MG Oral Tablet; TAKE 1 TABLET BY MOUTH THREE TIMES DAILY NEEDED; Therapy: 10Sep2016 to (Evaluate:01Feb2017) Requested for: [id number]; Last Rx:[id number] Ordered Rx By: Sergo Mackey; Dispense: 30 Days ; #:90 Tablet; Refill: 1; For: Bipolar mood disorder; JULIANA = N; Print Rx 3. Fluticasone Propionate 50 MCG/ACT Nasal Suspension; USE 2 SPRAYS IEN QD; Therapy: [id number] to (Evaluate:15Apr2017) Requested for: [id number]; Last Rx:[id number] Ordered Rx By: Sergo Mackey; Dispense: 30 Days ; #:1 X 16 GM Bottle; Refill: 0; For: Allergic rhinitis;JULIANA = N; Verified Transmission to [facility] [address]; Last Updated By: MunchAway;03/16/2017 3:38:23 PM Allergies 1. 12 Hour Decongestant [...] In Office; Status:Resulted - Requires Verification; Done: [id number] 12:00AM Last Updated By:Angela Lal; 04/11/2017 9:30:11 AM;Ordered; For:Dysuria; Ordered By:Sergo Mackey; Signatures Electronically signed by : Sergo Mackey M.D.; Apr 11 2017 5:12PM INTERMODAL OWNER OPERATOR TRUCK DRIVER (Author) documented in this encounter Plan of [...] URINE ORDERABLES Final Result Performing Organization Address [facility] de Phone Number [employer] TO EP[employer] CONVERSION [...] ORDERA BLES Final Result Performing Organization Address [facility] Co de Phone Number [employer] TO EP[employer] CONVERSION documented in this encounter Visit Diagnoses Not on filedocumented in this encounter Care Teams Drum Cleaner Relationship Specialty Start Date End Date Sergo Mackey MD PCP - General 04/07/17 documented as of this encounter
--- OUTSIDE RECORDS SUMMARY | 2024-11-08 11:15 | XMS_ITS | Encounter Summary ---
Author Organization [facility] Address [address] [place] [address]. [place], [place] [address] [place] [address] Care Team Providers Care Plumbing Foreman Name Role Phone Sergo Mackey MD Primary Care Provider Julian short Encounter Details Date Type Department Care Team (Latest Contact Info) Description 09/06/[address] [facility] Medical Group James Luther MD Social History [...] on filedocumented in this encounter Care Teams Plumbing Foreman Relationship Specialty Start Date End Date Sergo Mackey MD PCP - General 04/07/17 documented as of this encounter
--- OUTSIDE RECORDS SUMMARY | 2024-11-08 11:15 | XMS_ITS | CONTINUITY OF CARE DOCUMENT ---
Author Name rosario ponce Address Unknown Organization [facility] Address [address] [facility] [address] [place] [address] Phone [phone] Care Team Providers Care Pantograph Operator Name Role Phone Balbir JOHNSON, Sophie Unavailable [phone] RACHEL JOHNSON, ALYSON Unavailable [phone] INSURANCE PROVIDERS Payer name Policy type / Coverage type [place] red green party ID [facility] Blue [facility] [id number]
--- OUTSIDE RECORDS SUMMARY | 2024-11-08 11:15 | XMS_ITS | Encounter Summary ---
Author Organization [facility] Address [address] [place] [address]. [place], [place] [address] [place] [address] Care Team Providers Care Pastry Chef Name Role Phone Sergo Mackey MD Primary Care Provider Julian short Encounter Details Date Type Department Care Team (Latest Contact Info) Description 08/30/2017 Abstract [facility] Medical Group Social History Tobacco Use Types [...] on filedocumented in this encounter Care Teams Pastry Chef Relationship Specialty Start Date End Date Sergo Mackey MD PCP - General 04/07/17 documented as of this encounter
--- OUTSIDE RECORDS SUMMARY | 2024-11-08 11:15 | XMS_ITS | Encounter Summary ---
Author Organization [facility] Address [address] [place] [address]. [place], [place] [address] [place] [address] Care Team Providers Care Contract Sheltered Workshop Supervisor Name Role Phone Sergo Mackey MD Primary Care Provider Julian short Encounter Details Date Type Department Care Team (Latest Contact Info) Description 07/13/2017 Abstract [facility] Medical Group Sergo Mackey MD Social [...] D deficiency has been defined by the [place] of Medicine and an Endocrine Society practice guideline as a level of serum 25-OH vitamin D less than 20 ng/mL (1,2). The Endocrine Society went on to further define vitamin D insufficiency as a level between 21 and 29 ng/mL (2). 1. IOM ([place] of Medicine). 2010. Dietary reference ?? intakes for calcium and D. [place]: The ?? National [employer]. 2. Brian MF, Cam PARKINSON, Nereyda [...] on filedocumented in this encounter Care Teams Contract Sheltered Workshop Supervisor Relationship Specialty Start Date End Date Sergo Mackey MD PCP - General 04/07/17 documented as of this encounter
--- OUTSIDE RECORDS SUMMARY | 2024-11-08 11:15 | XMS_ITS | Encounter Summary ---
Author Organization [facility] Address [address] [place] [address]. [place] [address] [place] [address] Care Team Providers Care Conditioner Tumbler Operator Name Role Phone Sergo Mackey MD Primary Care Provider Julian short Encounter Details Date Type Department Care Team (Latest Contact Info) Description 07/15/2017 Abstract [facility] Medical Group Social History Tobacco [...] ORDER MAILED ---NK Verified Results LC-Vitamin B12 [id number] 01:54PM Sergo Mackey Test Name Result Flag Reference Vitamin B12 580 pg/mL 211-946 LC-Vitamin D, 25-Hydroxy 364722 55Iuj1231 01:54PM Sergo Mackey Test Name Result Flag Reference Vitamin D, 25-Hydroxy 15.7 ng/mL L 30.0-100.0 Vitamin D deficiency has been defined by the [place] of Medicine and an Endocrine Society practice guideline as a level of serum 25-OH vitamin D less than 20 ng/mL (1,2). The Endocrine Society went on to further define vitamin D insufficiency as a level between 21 and 29 ng/mL (2). 1. IOM ([place] of Medicine). 2010. Dietary reference intakes for [...] Berenice Barone MA; Jul 15 2017 3:52PM LINTER SAW SHARPENER (Author) documented in this encounter Plan of Treatment Not on file documented as of this encounter Visit Diagnoses Not on filedocumented in this encounter Care Teams Conditioner Tumbler Operator Relationship Specialty Start Date End Date Sergo Mackey MD PCP - General 04/07/17 documented as of this encounter
--- OUTSIDE RECORDS SUMMARY | 2024-11-08 11:15 | XMS_ITS | Encounter Summary ---
Author Organization [facility] Address [address] [place] [address]. [place] [address] [place] [address] Care Team Providers Care Nurse Midwife Name Role Phone Sergo Mackey MD Primary Care Provider Julian short Encounter Details Date Type Department Care Team (Latest Contact Info) Description 04/21/2017 Abstract [facility] Medical Group Social [...] Mackey Task Name: Follow Up Assigned To: [facility] Narendra Regarding Patient: Alia Fabian, Status: [...] Fariba Garvey MA; Apr 21 2017 12:19PM COUNSEL (Author) * James Pineda Md, MD - 04/21/2017 12:19 PM CDT Message Recorded as Task Date: 04/16/2017 02:39 PM, Created By: Carmela Haynes Task Name: Medical Complaint Callback Assigned To: [facility] Narendra Regarding Patient: Alia Fabian, Status: In Progress Comment: Carmela Haynes - 16 Apr 2017 2:39 PM TASK CREATED Caller: Lay, Parent; (Day); Lay (patients mother) calling about the Results of CT done at [place] on 04/12/17. CB# [phone] or [phone] Jovanni Omalley - 16 Apr 2017 3:09 PM TASK EDITED mother informed we do not have results yet Message: patient notified -sjs Signatures Electronically signed by : Fariba Garvey MA; Apr 21 2017 12:19PM COUNSEL (Author) documented in this encounter Plan of Treatment Not on file documented as of this encounter Visit Diagnoses Not on filedocumented in this encounter Care Teams Nurse Midwife Relationship Specialty Start Date End Date Sergo Mackey MD PCP - General 04/07/17 documented as of this encounter
--- OUTSIDE RECORDS SUMMARY | 2024-11-08 11:15 | XMS_ITS | Encounter Summary ---
Author Organization [facility] Address [address] [place] [address]. [address] [place] [address] Care Team Providers Care Material Expeditor Name Role Phone Sergo Mackey MD Primary Care Provider Julina short Encounter Details Date Type Department Care Team (Latest Contact Info) Description 05/12/2017 Abstract [facility] Medical [...] on filedocumented in this encounter Care Teams Material Expeditor Relationship Specialty Start Date End Date Sergo Mackey MD PCP - General 04/07/17 documented as of this encounter
--- OUTSIDE RECORDS SUMMARY | 2024-11-08 11:15 | XMS_ITS | Encounter Summary ---
Author Organization [facility] Address [address] [place] [address]. [place], [place] [address] [place] [address] Care Team Providers Care Bag Shop Worker Name Role Phone Sergo Mackey MD Primary Care Provider Julian short Encounter Details Date Type Department Care Team (Latest Contact Info) Description 08/27/2017 Abstract [facility] Medical Group Social History Tobacco [...] on filedocumented in this encounter Care Teams Bag Shop Worker Relationship Specialty Start Date End Date Sergo Mackey MD PCP - General 04/07/17 documented as of this encounter
--- OUTSIDE RECORDS SUMMARY | 2024-11-08 11:15 | XMS_ITS | Encounter Summary ---
Author Organization [facility] Address [address] [place] [address]. [place], [place] [address] [place] [address] Care Team Providers Care Public Transportation Inspector Name Role Phone Sergo Mackey MD Primary Care Provider Julian short Encounter Details Date Type Department Care Team (Latest Contact Info) Description 08/19/2017 Abstract [facility] Medical [...] on filedocumented in this encounter Care Teams Public Transportation Inspector Relationship Specialty Start Date End Date Sergo Mackey MD PCP - General 04/07/17 documented as of this encounter
--- OUTSIDE RECORDS SUMMARY | 2024-11-08 11:16 | XMS_ITS | Encounter Summary ---
Author Organization [facility] Address [address] [place] [address]. [place], [place] [address] [place] [address] Care Team Providers Care Nursery Helper Name Role Phone Sergo Mackey MD Primary Care Provider Sergo Duncan MD Primary Care Provider Sergo Duncan MD Primary Care Provider Julian short Encounter Details Date Type Department Care Team (Latest Contact Info) Description 07/17/2016 Abstract [facility] Medical [facility] , James Pineda MD Social [...] patient notified -sjs Verified Results Urine Culture [id number] 02:41PM Sergo Mackey Test Name Result Flag Reference Urine Culture SPECIMEN DESCRIPTION - URINE CLEAN CATCH SPECIAL REQUESTS - NO SPECIAL REQUEST CULTURE - NO GROWTH 2 DAYS REPORT STATUS - FINAL 07/17/2016 Discussion/Summary Urine culture shows no infection. No need for anbx. Signatures Electronically signed by : Fariba Garvey MA; Jul 20 2016 1:37PM AIR SHOVEL OPERATOR (Author) * Generic Conversion MD Ashkan - 07/17/2016 11:09 AM CDT Message Recorded as Task Date: 07/15/2016 01:28 PM, Created By: Yasmine Fitch Task Name: Medical Complaint Callback Assigned To: [facility] Team Narendra Regarding Patient: Alia Fabian, Status: [...] 16 Jul 2016 4:49 PM TASK EDITED [facility] Message: Pts mother updated-[facility] Plan 1. LORazepam 1 MG Oral Tablet; TAKE 1 TABLET BY MOUTH THREE TIMES DAILY NEEDED Rx By: Sergo Mackey; Dispense: 0 Days ; #:60 Tablet; Refill: 0; For: Bipolar mood disorder, Palpitations; JULIANA = N; Call Rx; Last Updated By: Eloisa Wolfe Signatures Electronically signed by : Eloisa Wolfe R.N.; Jul 17 2016 11:11AM AIR SHOVEL OPERATOR (Author) documented in this encounter Plan of Treatment Not on file documented as of this encounter Visit Diagnoses Not on filedocumented in this encounter Care Teams Nursery Helper Relationship Specialty Start Date End Date Sergo Mackey MD PCP - General 04/07/17 Sergo Mackey MD PCP - General 08/05/16 04/06/17 Sergo Mackey MD PCP - General 07/16/16 08/04/16 documented as of this encounter
--- OUTSIDE RECORDS SUMMARY | 2024-11-08 11:16 | XMS_ITS | Encounter Summary ---
Author Organization [facility] Address [address] [place] [address]. [place], [place] [address] [place] [address] Care Team Providers Care Pole Shaver Helper Name Role Phone Sergo Mackey MD Primary Care Provider Sergo Duncan MD Primary Care Provider Julian short Encounter Details Date Type Department Care Team (Latest Contact Info) Description 08/18/2016 Abstract [facility] Medical Group Sergo Mackey MD Social [...] on filedocumented in this encounter Care Teams Pole Shaver Helper Relationship Specialty Start Date End Date Sergo Mackey MD PCP - General 04/07/17 Sergo Mackey MD PCP - General 08/05/16 04/06/17 documented as of this encounter
--- OUTSIDE RECORDS SUMMARY | 2024-11-08 11:16 | XMS_ITS | Encounter Summary ---
Author Organization [facility] Address [facility] [place] [address] [place] [address] Care Team Providers Care Still Operator Whiskey Name Role Phone Sergo Mackey MD Primary Care Provider Sergo Duncan MD Primary Care Provider Julian short Encounter Details Date Type Department Care Team (Late st Contact Info) Description 03/16/2017 Abstract [facility] Medical Group Family & Internal Medicine [address] [phone] Sergo Mackey MD Social History Tobacco Use [...] labs done back in December with her CARBIDE POWDER PROCESSOR. She is interested in doing repeat labs. She claims she had a sleep apnea test but could not sleep because she had an anxiety attack. She also did have a heart monitor test, magnesium test and serotonin test with her concrete carpenter along with a urine sample test. She [...] BY MOUTH TWICE DAILY; Therapy: 13Aug2016 to (Evaluate:[id number]) Requested for: 21Sep2016; Last Rx:21Sep2016 Ordered Rx By: Nellie Moy; Dispense: 30 Days ; #:60 Capsule; Refill: 0; For: Abdominal cramping, generalized; JULIANA = N; Print Rx; Last Updated By: ButchPublish[employer]; 09/21/2016 8:25:38 AM 2. ClonazePAM 1 MG [...] Shirley Zhang; 04/10/2014 3:10:36 PM Vitals Recorded: [id number] 03:23PM Temperature 98.7 F Heart Rate 103 [...] Allergic rhinitis;JULIANA = N; Verified Transmission to [facility] [address]; Last Updated By: Hoopla;03/16/2017 3:38:23 PM Atypical chest pain, Fever, IBS (irritable bowel syndrome) 2. CBC W Differential; Status:Hold For - Manual Activation; Requested for:16Mar2017; Perform:[facility]; Due:15Apr2017; Last Updated By:Fariba Garvey; 03/16/2017 3:36:44 PM;Ordered; For:Atypical chest pain, Fever, IBS (irritable bowel syndrome); Ordered By:Sergo Mackey; 3. Compr Metabolic Prof ( CMP ); Status:Hold For - Manual Activation; Requested for:16Mar2017; Perform:[facility]; Due:15Apr2017; Last Updated By:Fariba Garvey; 03/16/2017 3:36:44 PM;Ordered; For:Atypical chest pain, Fever, IBS (irritable bowel syndrome); Ordered By:Sergo Mackey; 4. Free T4 ( Thyroxine ); Status:Hold For - Manual Activation; Requested for:16Mar2017; Perform:[facility]; Due:15Apr2017; Last Updated By:Fariba Garvey; 03/16/2017 3:36:44 PM;Ordered; For:Atypical chest pain, Fever, IBS (irritable bowel syndrome); Ordered By:Sergo Mackey; 5. Thyroid Stim Hormone ( TSH ); Status:Hold For - Manual Activation; Requested for:[id number]; Perform: [facility]; Due:[id number]; Last Updated By:Fariba Garvey; 03/16/2017 3:36:44 PM;Ordered; For:Atypical chest pain, Fever, IBS (irritable bowel syndrome); Ordered By:Sergo Mackey; She will continue her current medicines and specialty followup. Signatures Electronically signed by : Sergo Mackey M.D.; Mar 21 2017 10:10PM GLUELINE WORKER (Author) documented in this encounter Plan of Treatment Not on file documented as of this encounter Visit Diagnoses Not on filedocumented in this encounter Care Teams Still Operator Whiskey Relationship Specialty Start Date End Date Sergo Mackey MD PCP - General 04/07/17 Sergo Mackey MD PCP - General 08/05/16 04/06/17 documented as of this encounter
--- OUTSIDE RECORDS SUMMARY | 2024-11-08 11:16 | XMS_ITS | Encounter Summary ---
Author Organization [facility] - [facility] Address [address] [place] [address]. [place] [address] [place] [address] Care Team Providers Care Project Structural Engineer Name Role Phone Sergo Mackey MD Primary Care Provider Sergo Duncan MD Primary Care Provider Julian short Encounter Details Date Type Department Care Team (Late st Contact Info) Description 10/19/2016 Abstract [facility] Medical [facility] [address] [facility], [address] [place] [address] Angeli Wu APNP [address] [address] Social History Tobacco Use Types [...] Comments Blood Pressure 138/78 10/19/2016 3:24 PM HOSEMAN Pulse - - Temperature - - Respiratory Rate - - Oxygen Saturation - - Inhaled Oxygen Concentration - - Weight 121.1 kg (267 lb) 10/19/2016 3:24 PM HOSEMAN Height 172.7 cm (5' 8 ) 10/19/2016 3:24 PM HOSEMAN Body Mass Index 40.6 10/19/2016 3:24 PM HOSEMAN documented in this encounter Progress Notes * [...] BY MOUTH TWICE DAILY; Therapy: 13Aug2016 to (Evaluate:[id number]) Requested for: 21Sep2016; Last Rx:21Sep2016 Ordered Rx By: Nellie Moy; Dispense: 30 Days ; #:60 Capsule; Refill: 0; For: Abdominal cramping, generalized; JULIANA = N; Print Rx; Last Updated By: [employer]; 09/21/2016 8:25:38 AM 2. ClonazePAM 1 MG Oral Tablet; Take one tablet three times daily as needed prn; Therapy: 10Sep2016 to (Evaluate:[id number]); Last Rx:10Sep2016 Ordered Rx By: Sergo Mackey; [...] infection; JULIANA = N; Verified Transmission to [facility] [address]; Last Updated By: [employer]; 08/05/2016 11:47:13 AM 4. Metoprolol Tartrate 25 MG Oral Tablet; TAKE 1 TABLET TWICE DAILY; Therapy: 05Aug2016 to (Evaluate:[id number]) Requested for: 13Aug2016; Last Rx:13Aug2016 Ordered Rx By: Nellie Moy; Dispense: 30 Days ; #:60 Tablet; Refill: 5; For: Palpitations; JULIANA = N; Verified Transmission to [facility] [address]; Last Updated By: Dayron Rae; 08/13/2016 3:19:40 PM 5. Propranolol HCl - 20 MG Oral Tablet; TK 1 T PO BID; Therapy: [id number] to Recorded Rx By: JESSICA BOWIE; Dispense: [...] Normal. Results/Data *Urine dip auto In Office [id number] 03:25PM Angeli Wu Test Name Result Flag Reference Color Yellow Clarity Clear Glucose Negative Bilirubin Negative Ketones Negative Specific [place] 1.015 Blood 3+(Large) pH 6.5 5.0 - [...] Angeli Wu APN; Oct 19 2016 3:45PM HOSEMAN (Author) documented in this encounter Plan of Treatment Not on file documented as of this encounter Procedures Procedure Name Priority Date/Time Associated Diagnosis Comments URINALYSIS AUTO DIP Routine 10/19/2016 3 :25 PM HOSEMAN documented in this encounter Results * URINALYSIS AUTO DIP (10/19/2016 3:25 PM HOSEMAN) COLOR (U) Yellow [facility] T O EPIC [...] OUP TO EPIC CONVERSION 10/19/2016 3:25 PM HOSEMAN 10/19/2016 3:25 PM HOSEMAN us Angeli Wu APNP URINE ORDERABLES Final Resu lt [facility] TO EPIC CONVERSION documented in this encounter Visit Diagnoses Not on filedocumented in this encounter Care Teams Project Structural Engineer Relationship Specialty Start Date End Date Sergo Mackey MD PCP - General 04/07/17 Sergo Mackey MD PCP - General 08/05/16 04/06/17 documented as of this encounter
--- OUTSIDE RECORDS SUMMARY | 2024-11-08 11:16 | XMS_ITS | Encounter Summary ---
Author Organization [facility] - [facility] Address [facility]. [place], [place] [address] [place] [address] Care Team Providers Care Valve Technician Name Role Phone Sergo Mackey MD Primary Care Provider Sergo Duncan MD Primary Care Provider Sergo Duncan MD Primary Care Provider Sergo Duncan MD Primary Care Provider Sergo Duncan MD Primary Care Provider Julian short Encounter Details Date Type Department Care Team (Latest Contact Info) Description 06/19/2016 Abstract [facility] Medical Group Social History Tobacco Use [...] comes in//af Verified Results CBC W Differential [id number] 03:16PM Sergo Mackey Test Name Result Flag [...] 0.0-1.0 Compr Metabolic Prof ( CMP ) [id number] 03:16PM Sergo Mackey Test Name Result Flag [...] mL/min/1.73m'2 Thyroid Stim Hormone ( TSH ) [id number] 03:16PM Sergo Mackey Test Name Result Flag Reference Thyroid Stim Hormone (TSH) 1.56 mIU/mL 0.27-4.20 Discussion/Summary Labs all good/normal. Was she able to get a list of meds she had tried in the past for her moods? Signatures Electronically signed by : Elsa Rivera, ; Jun 19 2016 12:12PM PHYSICAL SECURITY SPECIALIST (Author) documented in this encounter Plan of Treatment Not on file documented as of this encounter Visit Diagnoses Not on filedocumented in this encounter Care Teams Valve Technician Relationship Specialty Start Date End Date Sergo Mackey MD PCP - General 04/07/17 Sergo Mackey MD PCP - General 08/05/16 04/06/17 Sergo Mackey MD PCP - General 07/16/16 08/04/16 Sergo Mackey MD PCP - General 07/14/16 07/15/16 Sergo Mackey MD PCP - General 06/16/16 07/13/16 documented as of this encounter
--- OUTSIDE RECORDS SUMMARY | 2024-11-08 11:16 | XMS_ITS | Encounter Summary ---
Author Organization [facility] - [facility] Address [facility] [place] [address] [place] [address] Care Team Providers Care Mill Stenciler Name Role Phone Sergo Mackey MD Primary Care Provider Sergo Duncan MD Primary Care Provider Julian short Encounter Details Date Type Department Care Team (Late st Contact Info) Description 10/20/2016 Abstract [facility] Medical Group Family & Internal Medicine [address] [phone] Sergo Mackey MD Social History Tobacco Use [...] URINE BACTERIA CULTURE Routine 10/20/2016 8:19 AM KITMAN documented in this encounter Results * CULTURE URINE (10/20/2016 8:19 AM KITMAN) CULTURE URINE Final report [facility] TO EPIC CONVERSION RESULT [facility] T O EPIC CONVERSION Comment: Result Comment: Mixed urogenital chapin Less than 10,000 colonies/mL 10/20/2016 8:19 AM KITMAN 10/20/2016 8:19 AM KITMAN Narrative [facility] TO EPIC CONVERSION - 10/22/2016 5:12 AM KITMAN Result Communication: No patient communication needed at this time us Angeli DUNAWAY MICROBIOLOGY - GENERAL GREGORIO IBARRA Final Result [facility] TO EPIC CONVERSION documented in this encounter Visit Diagnoses Not on filedocumented in this encounter Care Teams Mill Stenciler Relationship Specialty Start Date End Date Sergo Mackey MD PCP - General 04/07/17 Sergo Mackey MD PCP - General 08/05/16 04/06/17 documented as of this encounter
--- OUTSIDE RECORDS SUMMARY | 2024-11-08 11:16 | XMS_ITS | Encounter Summary ---
Author Organization [facility] Address [address] [place] [address]. [place], [place] [address] [place] [address] Care Team Providers Care Engineering Technician Parking Name Role Phone Sergo Mackey MD Primary Care Provider Sergo Duncan MD Primary Care Provider Julian short Encounter Details Date Type Department Care Team (Latest Contact Info) Description 03/15/2017 Abstract [facility] Medical Group Social History [...] on filedocumented in this encounter Care Teams Engineering Technician Parking Relationship Specialty Start Date End Date Sergo Mackey MD PCP - General 04/07/17 Sergo Mackey MD PCP - General 08/05/16 04/06/17 documented as of this encounter
--- OUTSIDE RECORDS SUMMARY | 2024-11-08 11:16 | XMS_ITS | Encounter Summary ---
Author Organization [facility] Address [address] [place] [address]. [place] [address] [place] [address] Care Team Providers Care Rehabilitation Nurse Name Role Phone Sergo Mackey MD Primary Care Provider Sergo Duncan MD Primary Care Provider Sergo Duncan MD Primary Care Provider Sergo Duncan MD Primary Care Provider Julian short Encounter Details Date Type Department Care Team (Late st Contact Info) Description 07/14/2016 Abstract [facility] [place] [address] Sergo Mackey MD Social History [...] URINE CLEAN CATCH 07/14/2016 5:40 PM CDT [facility] SPECIAL REQUESTS NO SPECIAL REQUEST 07/14/2016 5:40 PM CDT [facility] CULTURE RESULT NO GROWTH 2 DAYS 07/17/2016 8:10 AM CDT [facility] URINE SPECIMEN OBTAINED BY CLEAN CATCH PROCEDURE / Unknown 07/14/2016 2:41 PM CDT 07/14/2016 7:08 PM CDT us Generic Conversion Md JOHNSON MICROBIOLOGY - GENERAL ORDERABLES Final Result [facility] [address] [place] [address], [place] [phone] documented in this encounter Visit Diagnoses Diagnosis Other abnormal findings in urine documented in this encounter Care Teams Rehabilitation Nurse Relationship Specialty Start Date End Date Sergo Mackey MD PCP - General 04/07/17 Sergo Mackey MD PCP - General 08/05/16 04/06/17 Sergo Mackey MD PCP - General 07/16/16 08/04/16 Sergo Mackey MD PCP - General 07/14/16 07/15/16 documented as of this encounter
--- OUTSIDE RECORDS SUMMARY | 2024-11-08 11:16 | XMS_ITS | Encounter Summary ---
Author Organization [facility] Address [facility]. [place], [place] [address] [place] [address] Care Team Providers Care Investigative Agent Name Role Phone Sergo Mackey MD Primary Care Provider Sergo Duncan MD Primary Care Provider Sergo Duncan MD Primary Care Provider Sergo Duncan MD Primary Care Provider Sergo Duncan MD Primary Care Provider Julian short Encounter Details Date Type Department Care Team (Late st Contact Info) Description 06/16/2016 Abstract [facility] Medical Group Family & Internal Medicine [address] [phone] Sergo Mackey MD Social History [...] states she ended up [facility] for symptoms of shortness of breath [...] tablettid as needed; Therapy: 10Apr2014 to (Last Rx:[id number]) Ordered Rx By: Sergo Mackey; Dispense: 0 [...] Status:In Progress - Specimen/Data Collected; Done: 16Jun2016 Perform:[facility]; Due:16Jul2016; Last Updated By:Angela Lal; 06/16/2016 3:16:54 PM;Ordered; For:Bipolar mood disorder, Panic disorder without agoraphobia; Ordered By:Sergo Mackey; 3. Compr Metabolic Prof ( CMP ); Status:In Progress - Specimen/Data Collected; Done: 16Jun2016 Perform:[facility]; Due:16Jul2016; Last Updated By:Angela Lal; 06/16/2016 3:16:54 PM;Ordered; For:Bipolar mood disorder, Panic disorder without agoraphobia; Ordered By:Sergo Mackey; 4. Thyroid Stim Hormone ( TSH ); Status:In Progress - Specimen/Data Collected; Done: 16Jun2016 Perform:[facility]; Due:16Jul2016; Last Updated By:Angela Lal; 06/16/2016 [...] Sergo Mackey M.D.; Jun 18 2016 9:33AM COMMUNICATIONS PROFESSIONAL (Author) documented in this encounter Plan of Treatment Not on file documented as of this encounter Visit Diagnoses Not on filedocumented in this encounter Care Teams Investigative Agent Relationship Specialty Start Date End Date Sergo Mackey MD PCP - General 04/07/17 Sergo Mackey MD PCP - General 08/05/16 04/06/17 Sergo Mackey MD PCP - General 07/16/16 08/04/16 Sergo Mackey MD PCP - General 07/14/16 07/15/16 Sergo Mackey MD PCP - General 06/16/16 07/13/16 documented as of this encounter
--- OUTSIDE RECORDS SUMMARY | 2024-11-08 11:16 | XMS_ITS | Encounter Summary ---
Author Organization [facility] - [facility] Address [facility] hospital6 [facility]. [place], [place] [address] [place] [address] Care Team Providers Care Sample Wrapper Name Role Phone Sergo Mackey MD Primary Care Provider Sergo Duncan MD Primary Care Provider Julian short Encounter Details Date Type Department Care Team (Latest Contact Info) Description 11/20/2016 Abstract [facility] Medical Group Social History [...] by:Fariba Garvey MA Nov 20 2016 12:01PM WARP YARN SORTER Author documented in this encounter Plan of Treatment Not on file documented as of this encounter Visit Diagnoses Not on filedocumented in this encounter Care Teams Sample Wrapper Relationship Specialty Start Date End Date Sergo Mackey MD PCP - General 04/07/17 Sergo Mackey MD PCP - General 08/05/16 04/06/17 documented as of this encounter
--- OUTSIDE RECORDS SUMMARY | 2024-11-08 11:16 | XMS_ITS | Encounter Summary ---
Author Organization [facility] Address [address] [place] [address]. [place], [place] [address] [place] [address] Care Team Providers Care Metal Sash Setter Name Role Phone Sergo Mackey MD Primary Care Provider Sergo Duncan MD Primary Care Provider Julian short Encounter Details Date Type Department Care Team (Latest Contact Info) Description 08/07/[address] [facility] Medical Group [...] on filedocumented in this encounter Care Teams Metal Sash Setter Relationship Specialty Start Date End Date Sergo Mackey MD PCP - General 04/07/17 Sergo Mackey MD PCP - General 08/05/16 04/06/17 documented as of this encounter
--- OUTSIDE RECORDS SUMMARY | 2024-11-08 11:16 | XMS_ITS | Encounter Summary ---
Author Organization [facility] Address [address] [place] [address]. [place], [place] [address] [place] [address] Care Team Providers Care Healthcare Manager Name Role Phone Sergo Mackey MD Primary Care Provider Sergo Duncan MD Primary Care Provider Sergo Duncan MD Primary Care Provider Sergo Duncan MD Primary Care Provider Julian short Encounter Details Date Type Department Care Team (Late st Contact Info) Description 07/14/2016 Abstract [facility] Medical Group Family & Internal Medicine [address] [phone] Sergo Mackey MD Social History [...] Mackey Task Name: Follow Up Assigned To: [facility] Narendra Regarding Patient: Alia Fabian, Status: [...] 1:51 PM TASK REASSIGNED: Previously Assigned To [facility] Sergo Johnston - 10 Jul 2016 [...] Fariba Garvey MA; Jul 14 2016 4:15PM HAND SHOE CUTTER (Author) * Sergo Mackey MD - 07/14/2016 1:15 PM CDT Reason For Visit Reason For Visit: Acute Visit Chief Complaint Patient c/o rapid and slow pulse, flushing, hot flashes, cold and clammy hands and feet, sharp dullpains in her head, frequent urination and fluctuating blood pressure. Was seen at [facility] for UTI 3 days ago. History of [...] reports she ended up going to the [facility] 3 days ago complaining of flushing, [...] DAILY NEEDED ; Therapy: 10Apr2014 to (Last Rx:[id number]) Ordered Rx By: Sergo Mackey; Dispense: 0 [...] Glucose Negative Bilirubin Negative Ketones Negative Specific [place] 1.015 Blood Negative pH 6.5 Protein Negative Urobilinogen 0.2 E.U./dL Nitrites neg Leukocytes Trace Assessment 1. Urinary frequency (788.41) (R35.0) 2. Hypertension (401.9) (I10) 3. Flushing (782.62) (R23.2) 4. Chronic diarrhea (787.91) (K52.9) 5. Palpitations (785.1) (R00.2) Plan Abnormal urine finding, Leukocytes in urine 1. Urine Culture; Status:In Progress - Specimen/Data Collected; Done: 15Jul2016 Perform:[facility]; Due:14Aug2016; Last Updated By:Angela Lal; 07/14/2016 2:48:48 PM;Ordered; For:Abnormal urine finding, Leukocytes in urine; Ordered By:Sergo Mackey; Source: : Clean Catch Chronic diarrhea, Flushing, Palpitations, Urinary frequency 2. Urine 5 - HIAA 24 Hr; Status:Hold For - Manual Activation; Requested for:14Jul2016; Perform:[facility]; Due:13Aug2016; Last Updated By:Angela Lal; 07/14/2016 2:38:00 PM;Ordered; For:Chronic diarrhea, Flushing, Palpitations, Urinary frequency; Ordered By:Sergo Mackey; 3. Urine Fract Catecholamine; Status:Hold For - Manual Activation; Requested for:[id number]; Perform:. [facility]; Due:13Aug2016; Last Updated By:Angela Lal; 07/14/2016 2:38:00 PM;Ordered; For:Chronic diarrhea, Flushing, Palpitations, Urinary frequency; Ordered By:Sergo Mackey; 4. Urine Metanephrines 24 Hr; Status:Hold For - Manual Activation; Requested for:[id number]; Perform:. [facility]; Due:13Aug2016; Last Updated By:Angela Lal; 07/14/2016 2:38:00 PM;Ordered; For:Chronic diarrhea, Flushing, Palpitations, Urinary frequency; Ordered By:Sergo Mackey; I will review her pharmacy records and look to start a new medicine for her mood disorder. Signatures Electronically signed by : Sergo Mackey M.D.; Jul 15 2016 8:57PM HAND SHOE CUTTER (Author) documented in this encounter Plan [...] is recommended for confirmation. Test Performed by [facility], [address] [place] [address] Aaron Kennedy M.D., Ph.D., Director of Laboratories , CLIA [id number] VOLUME (U) 2525 ML [facility] TO EPIC [...] 480 Unit: mcg/24 h Test Performed by Lola PirindolaSandie, [employer], [address] [place] [address] Aaron Kennedy M.D., Ph.D., Director of Laboratories , CLIA [id number] EPINEPHRINE (U) REPORT Results are below the [...] URINE ORDERABLES Final Result Performing Organization Address City/[facility] Co de Phone Number [facility] TO EPIC [...] URINE ORDERABLES Final Result Performing Organization Address [facility] de Phone Number [facility] TO [...] ORDERA BLES Final Result Performing Organization Address [facility] de Phone Number [facility] TO EPIC CONVERSION documented in this encounter Visit Diagnoses Not on filedocumented in this encounter Care Teams Healthcare Manager Relationship Specialty Start Date End Date Sergo Mackey MD PCP - General 04/07/17 Sergo Mackey MD PCP - General 08/05/16 04/06/17 Sergo Mackey MD PCP - General 07/16/16 08/04/16 Sergo Mackey MD PCP - General 07/14/16 07/15/16 documented as of this encounter
--- OUTSIDE RECORDS SUMMARY | 2024-11-08 11:16 | XMS_ITS | Encounter Summary ---
Author Organization [facility] Address [facility]. [place], [place] [address] [place] [address] Care Team Providers Care Cafeteria Counter Attendant Name Role Phone Sergo Mackey MD Primary Care Provider Sergo Duncan MD Primary Care Provider Sergo Duncan MD Primary Care Provider Sergo Duncan MD Primary Care Provider Julian labSergo Stratton MD Primary Care Provider [facility] Encounter Details Date Type Department Care Team (Latest Contact Info) Description 07/03/2016 Abstract [facility] Medical Group [...] on filedocumented in this encounter Care Teams Cafeteria Counter Attendant Relationship Specialty Start Date End Date Sergo Mackey MD PCP - General 04/07/17 Sergo Mackey MD PCP - General 08/05/16 04/06/17 Sergo Mackey MD PCP - General 07/16/16 08/04/16 Sergo Mackey MD PCP - General 07/14/16 07/15/16 Sergo Mackey MD PCP - General 06/16/16 07/13/16 documented as of this encounter
--- OUTSIDE RECORDS SUMMARY | 2024-11-08 11:16 | XMS_ITS | Encounter Summary ---
Author Organization [facility] Address [address] [place] [address]. [place], [place] [address] [place] [address] Care Team Providers Care Supervisor Hand Silvering Name Role Phone Sergo Mackey MD Primary Care Provider Sergo Duncan MD Primary Care Provider Julian short Encounter Details Date Type Department Care Team (Latest Contact Info) Description 08/10/2016 Abstract [facility] Medical [facility] Social History Tobacco Use Types [...] on filedocumented in this encounter Care Teams Supervisor Hand Silvering Relationship Specialty Start Date End Date Sergo Mackey MD PCP - General 04/07/17 Sergo Mackey MD PCP - General 08/05/16 04/06/17 documented as of this encounter
--- OUTSIDE RECORDS SUMMARY | 2024-11-08 11:16 | XMS_ITS | Encounter Summary ---
Author Organization [facility] Address [address] [place] [address]. [place], [place] [address] [place] [address] Care Team Providers Care Media Job Titles Name Role Phone Sergo Mackey MD Primary Care Provider Sergo Duncan MD Primary Care Provider Julian short Encounter Details Date Type Department Care Team (Latest Contact Info) Description 12/08/2016 Abstract [facility] Medical Group Sergo Mackey MD Social [...] DISEASE COMP PANEL Routine 12/08/2016 10:52 AM MAGAZINE WORKER COMPREHENSIVE METABOLIC PANEL Routine 12/08/2016 10:52 AM MAGAZINE WORKER CBC W/DIFF AUTOMATED Routine 12/08/2016 10:52 AM MAGAZINE WORKER documented in this encounter Results * CELIAC DISEASE COMP PANEL (QST) (12/08/2016 10:52 AM MAGAZINE WORKER) INTERPRETATION see note [facility] OUP TO EPIC [...] CONVERSION Comment: Result Comment: Test Performed at: [facility] ([facility])/[address] ? SHARI ODOM MD,PHD 12/08/2016 10:5 2 AM MAGAZINE WORKER 12/08/2016 10:52 AM MAGAZINE WORKER Narrative [facility] TO EPIC CONVERSION - 12/08/2016 10:58 AM MAGAZINE WORKER Result Communication: No patient communication needed at this time Sergo Mackey MD LABORATORY Final Result [facility] TO EPIC CONVERSION * COMPREHENSIVE METABOLIC PANEL (12/08/2016 10:52 AM MAGAZINE WORKER) GLUCOSE 99 65 - 99 mg/dL [facility] [...] CONVERSION Comment: Result Comment: Test Performed at: [facility] [address] [place] [address] ??[phone] ? KALI HENDRICKS DO,MPH 12/08/2016 10:5 2 AM MAGAZINE WORKER 12/08/2016 10:52 AM MAGAZINE WORKER Narrative [facility] TO EPIC CONVERSION - 12/08/2016 10:58 AM MAGAZINE WORKER Result Communication: No patient communication needed at this time Sergo Mackey MD LABORATORY Final Result [facility] TO EPIC CONVERSION * CBC W/DIFF AUTOMATED (12/08/2016 10:52 AM MAGAZINE WORKER) Pathologist [facility] WBC 7.4 3.8 - 10.8 [facility] TO [...] DRAW FEE 2ND ORDER,PT REFUSED SIMILAR TESTING [id number] REQ FASTING:YES PATIENT REFUSED SOME TESTING; PATIENT ENCOURAGED Test Performed at: [facility] ([facility]) [address] ??[phone] ? KALI HENDRICKS DO,MPH 12/08/2016 10:5 2 AM MAGAZINE WORKER 12/08/2016 10:52 AM MAGAZINE WORKER Narrative [facility] TO EPIC CONVERSION - 12/08/2016 10:58 AM MAGAZINE WORKER Result Communication: Call patient with results Sergo Mackey MD LABORATORY Final Result [facility] TO EPIC CONVERSION documented in this encounter Visit Diagnoses Not on filedocumented in this encounter Care Teams Media Job Titles Relationship Specialty Start Date End Date Sergo Mackey MD PCP - General 04/07/17 Sergo Mackey MD PCP - General 08/05/16 04/06/17 documented as of this encounter
--- OUTSIDE RECORDS SUMMARY | 2024-11-08 11:16 | XMS_ITS | Encounter Summary ---
Author Organization [facility] Address [facility]. [place], [place] [address] [place] [address] Care Team Providers Care Liquefied Petroleum Gasfitter Name Role Phone Sergo Mackey MD Primary Care Provider Sergo Duncan MD Primary Care Provider Julian short Encounter Details Date Type Department Care Team (Latest Contact Info) Description 02/15/2017 Abstract [facility] Medical Group , James Pineda MD [...] Task Name: Medical Complaint Callback Assigned To: [facility] Team Narendra Regarding [...] her other us was normal...please advise. cb#: [phone] Sergo Mackey - 15 Feb 2017 4:36 [...] W; Status:Need Information - Financial Authorization; Requested for:[id number]; Perform:Other Radiology; Due:20Emf5979; Last Updated By:Elsa Rivera; 02/15/2017 4:47:11 PM;Ordered; For:Abnormal ultrasound of abdomen; Ordered By:Sergo Mackey; Patient prefers [facility], liver stenosis found on US with urology Signatures Electronically signed by : Elsa Rivera, ; Feb 15 2017 4:47PM BENCH JEWELER (Author) * Rani Reardon MD - 02/15/2017 2:43 PM CDT Message Message: Patient was called and notified of her kidney u/s. Patient will notify her primary of the result of the liver steatosis. Signatures Electronically signed by : Rani Reardon, ; Feb 15 2017 2:45PM BENCH JEWELER (Author) documented in this encounter Plan of Treatment Not on file documented as of this encounter Visit Diagnoses Not on filedocumented in this encounter Care Teams Liquefied Petroleum Gasfitter Relationship Specialty Start Date End Date Sergo Mackey MD PCP - General 04/07/17 Sergo Mackey MD PCP - General 08/05/16 04/06/17 documented as of this encounter
--- OUTSIDE RECORDS SUMMARY | 2024-11-08 11:16 | XMS_ITS | Encounter Summary ---
Author Organization [facility] Address [facility] [place] [address] [place] [address] Care Team Providers Care Junior Marketing Associate Name Role Phone Sergo Mackey MD Primary Care Provider Sergo Duncan MD Primary Care Provider Julian short Encounter Details Date Type Department Care Team (Late st Contact Info) Description 09/10/2016 Abstract [facility] Medical Group Family & Internal Medicine [address] [phone] Sergo Mackey MD Social History Tobacco Use [...] Comments Blood Pressure 118/78 09/10/2016 3:03 PM CARD SERVICES SPECIALIST Pulse 86 09/10/2016 3:03 PM CARD SERVICES SPECIALIST Temperature - - Respiratory Rate - - Oxygen Saturation - - Inhaled Oxygen Concentration - - Weight 121.2 kg (267 lb 4 oz) 09/10/2016 3:03 PM CARD SERVICES SPECIALIST Height 172.7 cm (5' 8 ) 09/10/2016 3:03 PM CARD SERVICES SPECIALIST Body Mass Index 40.64 09/10/2016 3:03 PM CARD SERVICES SPECIALIST documented in this encounter Progress Notes * [...] her knee locks several times. She takes lpga-nog-liczgok Tylenol and this seems to be helpful. She was hospitalized back in July at [facility] for mental illness. She is trying to find to a psychiatrist that will accept her insurance. [facility] if needed. [...] twice daily; Therapy: 13Aug2016 to (Evaluate:12Sep2016); Last Rx:[id number] Ordered Rx By: Nellie Moy; Dispense: 30 Days ; #:60 Capsule; Refill: 0; For: Abdominal cramping, generalized; JULIANA = N; Print Rx 2. Fluconazole 150 MG Oral Tablet; TAKE 1 TABLET Once PRN onset of symptoms may repeat dose in 72 hours for continued symptoms; Therapy: 05Aug2016 to (Evaluate:07Aug2016) Requested for: 05Aug2016; Last Rx:[id number] Ordered Rx By: Nellie Moy; Dispense: 2 Days ; #:2 Tablet; Refill: 0; For: Antibiotic-induced yeast infection; JULIANA = N; Verified Transmission to [facility]; Last Updated By: Kontron; 08/05/2016 11:47:13 AM 3. Metoprolol Tartrate 25 MG Oral Tablet; TAKE 1 TABLET TWICE DAILY; Therapy: 05Aug2016 to (Evaluate:[id number]) Requested for: 13Aug2016; Last Rx:13Aug2016 Ordered Rx By: Nellie Moy; Dispense: 30 Days ; #:60 Tablet; Refill: 5; For: Palpitations; JULIANA = N; Verified Transmission to [facility]; Last Updated By: Kontron; 08/13/2016 3:19:40 PM Allergies 1. 12 Hour [...] Performed: Due: 24Sep2016; Last Updated By: Yasmine Fithc; 09/10/2016 3:41:[address] [facility] Referral [...] Sergo Mackey M.D.; Sep 13 2016 2:48PM CARD SERVICES SPECIALIST (Author) documented in this encounter Plan of Treatment Not on file documented as of this encounter Visit Diagnoses Not on filedocumented in this encounter Care Teams Junior Marketing Associate Relationship Specialty Start Date End Date Sergo Mackey MD PCP - General 04/07/17 Sergo Mackey MD PCP - General 08/05/16 04/06/17 documented as of this encounter
--- OUTSIDE RECORDS SUMMARY | 2024-11-08 11:16 | XMS_ITS | Encounter Summary ---
Author Organization [facility] Address [address] [place] [address]. [place], [place] [address] [place] [address] Care Team Providers Care Clinical Project Coordinator Name Role Phone Sergo Mackey MD Primary Care Provider Sergo Duncan MD Primary Care Provider Sergo Duncan MD Primary Care Provider Sergo Duncan MD Primary Care Provider Sergo Duncan MD Primary Care Provider Sagrariovaeliceo short Encounter Details Date Type Department Care Team (Latest Contact Info) Description 06/18/2016 Abstract [facility] Medical Group Social History Tobacco Use [...] Sanders Task Name: Call Back Assigned To: [facility] Narendra Regarding Patient: Alia Fabian, Status: In Progress Comment: Juana Sanders - 18 Jun 2016 2:53 PM TASK CREATED Caller: Self; Results Inquiry; patient called regarding her lab results, she would like someone to call her. She states she went to the ER after being seen here and was diagnosed with a UTI. Patient phone # [phone] Eloisa Wolfe - 18 Jun 2016 3:51 PM TASK IN PROGRESS Message: Pt updated-елена Signatures Electronically signed by : Eloisa Wolfe R.N.; Jun 18 2016 3:54PM SHIPPING ASSISTANT (Author) documented in this encounter Plan of Treatment Not on file documented as of this encounter Visit Diagnoses Not on filedocumented in this encounter Care Teams Clinical Project Coordinator Relationship Specialty Start Date End Date Sergo Mackey MD PCP - General 04/07/17 Sergo Mackey MD PCP - General 08/05/16 04/06/17 Sergo Mackey MD PCP - General 07/16/16 08/04/16 Sergo Mackey MD PCP - General 07/14/16 07/15/16 Sergo Mackey MD PCP - General 06/16/16 07/13/16 documented as of this encounter
--- OUTSIDE RECORDS SUMMARY | 2024-11-08 11:16 | XMS_ITS | Encounter Summary ---
Author Organization [facility] Address [facility] [place] [address] [place] [address] Care Team Providers Care Team Driver Name Role Phone Sergo Mackey MD Primary Care Provider Sergo Duncan MD Primary Care Provider Julian short Encounter Details Date Type Department Care Team (Late st Contact Info) Description 12/03/2016 Abstract [facility] Medical Group Family & Internal Medicine [address] [phone] Sergo Mackey MD Social History Tobacco Use [...] Comments Blood Pressure 126/80 12/03/2016 3:06 PM REEFER ENGINEER Pulse 112 12/03/2016 3:06 PM REEFER ENGINEER Temperature - - Respiratory Rate - - Oxygen Saturation - - Inhaled Oxygen Concentration - - Weight 127.9 kg (282 lb) 12/03/2016 3:06 PM REEFER ENGINEER Height 172.7 cm (5' 8 ) 12/03/2016 3:06 PM REEFER ENGINEER Body Mass Index 42.88 12/03/2016 3:06 PM REEFER ENGINEER documented in this encounter Progress Notes * [...] PCOS and is following up with her CELL ATTENDANT. She is trying to get a second [...] BY MOUTH TWICE DAILY; Therapy: 13Aug2016 to (Evaluate:02Rte2006) Requested for: 21Sep2016; Last Rx:21Sep2016 Ordered Rx By: Nellie Moy; Dispense: 30 Days ; #:60 Capsule; Refill: 0; For: Abdominal cramping, generalized; JULIANA = N; Print Rx; Last Updated By: [employer]; 09/21/2016 8:25:38 AM 2. ClonazePAM 1 MG Oral Tablet; TAKE 1 TABLET BY MOUTH THREE TIMES DAILY NEEDED; Therapy: 10Sep2016 to (Evaluate:26Nov2016) Requested for: 27Oct2016; Last Rx:27Oct2016 Ordered Rx By: Sergo Mackey; Dispense: 30 Days ; #:90 TAB; Refill: 0; For: Bipolar mood disorder; JULIANA =N; Print Rx; Last Updated By: [employer]; 12/03/2016 3:33:49 PM 3. Metoprolol Tartrate 25 MG Oral Tablet; TAKE 1 TABLET TWICE DAILY; Therapy: 05Aug2016 to (Evaluate:[id number]) Requested for: 13Aug2016; Last Rx:13Aug2016 Ordered Rx By: Nellie Moy; Dispense: 30 Days ; #:60 Tablet; Refill: 5; For: Palpitations; JULIANA = N; Verified Transmission to [facility] 13[address]; Last Updated By: [employer]; 08/13/2016 3:19:40 PM Allergies 1. 12 Hour Decongestant TB12 Recorded By: Shirley Zhang; 04/10/2014 3:10:36 PM Vitals Recorded: [id number] 03:06PM Heart Rate 112 Respiration 16 Systolic [...] Status:Hold For - Manual Activation; Requested for:03Dec2016; Perform:[facility]; Due:02Jan2017; Last Updated By:Fariba Garvey; 12/03/2016 3:28:37 PM;Ordered; For:Chronic diarrhea, Continuous RUQ abdominal pain, Hyperglycemia, PCOS (polycystic ovarian syndrome); Ordered By:Sergo Mackey; 4. Celiac Ab Evaluation; Status:Hold For - Manual Activation; Requested for:03Dec2016; Perform:[facility]; Due:02Jan2017; Last Updated By:Fariba Garvey; 12/03/2016 3:28:37 PM;Ordered; For:Chronic diarrhea, Continuous RUQ abdominal pain, Hyperglycemia, PCOS (polycystic ovarian syndrome); Ordered By:Sergo Mackey; 5. Compr Metabolic Prof ( CMP ); Status:Hold For - Manual Activation; Requested for:03Dec2016; Perform:[facility]; Due:02Jan2017; Last Updated By:Fariba Garvey; 12/03/2016 3:28:37 PM;Ordered; For:Chronic diarrhea, Continuous RUQ abdominal pain, Hyperglycemia, PCOS (polycystic ovarian syndrome); Ordered By:Sergo Mackey; 6. Free T4 ( Thyroxine ); Status:Hold For - Manual Activation; Requested for:03Dec2016; Perform:[facility]; Due:02Jan2017; Last Updated By:Fariba Garvey; 12/03/2016 3:28:37 PM;Ordered; For:Chronic diarrhea, Continuous RUQ abdominal pain, Hyperglycemia, PCOS (polycystic ovarian syndrome); Ordered By:Sergo Mackey; 7. Thyroid Stim Hormone ( TSH ); Status:Hold For - Manual Activation; Requested for:03Dec2016; Perform:[facility]; Due:02Jan2017; Last Updated By:Fariba Garvey; 12/03/2016 3:28:37 PM;Ordered; For:Chronic diarrhea, Continuous RUQ abdominal pain, Hyperglycemia, PCOS (polycystic ovarian syndrome); Ordered By:Sergo Mackey; F/U with [employer] as planned. US ABDOMEN LIMITED RUQ; Status:Hold [...] Sergo Mackey M.D.; Dec 07 2016 2:42AM REEFER ENGINEER (Author) documented in this encounter Plan of Treatment Not on file documented as of this encounter Visit Diagnoses Not on filedocumented in this encounter Care Teams Team Driver Relationship Specialty Start Date End Date Sergo Mackey MD PCP - General 04/07/17 Sergo Mackey MD PCP - General 08/05/16 04/06/17 documented as of this encounter
--- OUTSIDE RECORDS SUMMARY | 2024-11-08 11:16 | XMS_ITS | Encounter Summary ---
Author Organization [facility] Address [facility] [facility] [place] [address] [place] [address] Care Team Providers Care Medical Education Specialist Name Role Phone Sergo Mackey MD Primary Care Provider Sergo Duncan MD Primary Care Provider Julian short Encounter Details Date Type Department Care Team (Late st Contact Info) Description 10/06/2016 Abstract [facility] Medical Group Family & Internal Medicine [place] [phone] [place] [address] Nellie Moy FNP [address] [place] [address] Social History Tobacco Use Types Packs/Day Years [...] filedocumented in this encounter Care Teams Medical Education Specialist Relationship Specialty Start Date End Date Sergo Mackey MD PCP - General 04/07/17 Sergo Mackey MD PCP - General 08/05/16 04/06/17 documented as of this encounter
--- OUTSIDE RECORDS SUMMARY | 2024-11-08 11:16 | XMS_ITS | Encounter Summary ---
Author Organization [facility] Address [address] [place] [address]. [place] [address] [place] [address] Care Team Providers Care Split And Drum Room Supervisor Name Role Phone Sergo Mackey MD Primary Care Provider Sergo Duncan MD Primary Care Provider Julian short Encounter Details Date Type Department Care Team (Late st Contact Info) Description 08/05/2016 Abstract [facility] Medical Group Family & Internal Medicine - [place] [id number] [place] [address] Nellie Moy FNP [address] [place] [address] Social History Tobacco Use Types Packs/Day Years [...] Alia states that she was hospitalized at [facility] and for the last week [...] infection; JULIANA = N; Verified Transmission to [facility] 11488; Last Updated By: XillianTV; 08/05/2016 11:47:13 AM Bilateral otitis externa, Bilateral otitis media 2. Qzbjgdjq-Qkyvbcgrz-WG [id number] Otic Solution; INSTILL 3 DROPS IN BOTH EARS 3-4 TIMES DAILY Rx By: Nellie Moy; Dispense: 0 Days ; #:1 X 10 ML Bottle; Refill: 0; For: Bilateral otitis externa, Bilateral otitis media; JULIANA = N; Verified Transmission to [facility] 90358; Last Updated By: XillianTV; 08/05/2016 11:47:12 AM 3. Recheck if symptoms [...] otitis media; JULIANA= N; Verified Transmission to [facility] [address]; Last Updated By: XillianTV; 08/05/2016 11:47:13 AM Bipolar mood disorder, Panic [...] Status:In Progress - Specimen/Data Collected; Done: 05Aug2016 Perform:[facility]; Due:04Sep2016; Last Updated By:Angela Lal; 08/05/2016 1:07:55 PM;Ordered; For:Vomiting and diarrhea; Ordered By:Nellie Moy; 10. Compr Metabolic Prof ( CMP ); Status:In Progress - Specimen/Data Collected; Done: 05Aug2016 [facility]; Due:04Sep2016; Last Updated By:Angela Lal; 08/05/2016 1:07:55 PM;Ordered; For:Vomiting and diarrhea; Ordered By:Nellie Moy; 11. Drink plenty of fluids.; Status:Complete; Done: 05Aug2016 01:38PM Ordered; For:Vomiting and diarrhea; Ordered By:Nellie Moy; We will call you with your lab results Signatures Electronically signed by : Nellie Moy, ; Aug 05 2016 1:38PM METAL FITTERS AND MACHINISTS (Author) documented in this encounter Plan of Treatment Not on file documented as of this encounter Procedures Procedure Name Priority Date/Time Associated Diagnosis Comments COMPREHENSIVE METABOLIC PANEL Routine 08/05/2016 1:07 PM CDT CBC W/DIFF AUTOMATED Routine 08/05/2016 1:07 PM CDT documented in this encounter Results * (ABNORMAL) COMPREHENSIVE METABOLIC PANEL (08/05/2016 1:07 PM CDT) Pathologist [facility] SODIUM S/P/B 139 136 - 145 mmol/L [...] communication needed at this time Nellie Moy [facility] Final Result [facility] TO EPIC CONVERSION [...] on filedocumented in this encounter Care Teams Split And Drum Room Supervisor Relationship Specialty Start Date End Date Sergo Mackey MD PCP - General 04/07/17 Sergo Mackey MD PCP - General 08/05/16 04/06/17 documented as of this encounter
--- OUTSIDE RECORDS SUMMARY | 2024-11-08 11:16 | XMS_ITS | Encounter Summary ---
Author Organization [facility] Address [address] [place] [address]. [place] [address] [place] [address] Care Team Providers Care Housekeeping Lead Name Role Phone Sergo Mackey MD Primary Care Provider Sergo Duncan MD Primary Care Provider Julian short Encounter Details Date Type Department Care Team (Late st Contact Info) Description 08/13/2016 Abstract [facility] Medical Group Family & Internal Medicine [id number] [place] [address] Nellie Moy FNP [address] [place] [address] Social History Tobacco Use Types Packs/Day Years [...] or a stroke while she was in [facility] for mental illness. She brought her [...] 05Aug2016 to (Evaluate:07Aug2016) Requested for: 05Aug2016; Last Rx:[id number] Ordered 2. Metoprolol Tartrate 25 MG Oral Tablet; TAKE 1 TABLET TWICE DAILY; Therapy: 05Aug2016 to (Evaluate:01Feb2017); Last Rx:[id number] Ordered Allergies 1. 12 Hour Decongestant TB12 [...] Palpitations; JULIANA = N; Verified Transmission to [facility] [address]; Last Updated By: Dayron Rae; 08/13/2016 3:19:40 PM Signatures Electronically signed by : Nellie Moy, ; Aug 13 2016 5:15PM RUBBER BLOCK LAYER (Author) Electronically signed by : Sander Stewart M.D.; Aug 23 2016 9:18PM RUBBER BLOCK LAYER (Author) documented in this encounter Plan of Treatment Not on file documented as of this encounter Visit Diagnoses Not on filedocumented in this encounter Care Teams Housekeeping Lead Relationship Specialty Start Date End Date Sergo Mackey MD PCP - General 04/07/17 Sergo Mackey MD PCP - General 08/05/16 04/06/17 documented as of this encounter
--- OUTSIDE RECORDS SUMMARY | 2024-11-08 11:16 | XMS_ITS | Encounter Summary ---
Author Organization [facility] Address [address] [place] [address]. [place], [place] [address] [place] [address] Care Team Providers Care Mask Inspector Name Role Phone Sergo Mackey MD Primary Care Provider Sergo Duncan MD Primary Care Provider Julian short Encounter Details Date Type Department Care Team (Latest Contact Info) Description 10/14/2016 Abstract [facility] Medical Group Social History Tobacco Use [...] on filedocumented in this encounter Care Teams Mask Inspector Relationship Specialty Start Date End Date Sergo Mackey MD PCP - General 04/07/17 Sergo Mackey MD PCP - General 08/05/16 04/06/17 documented as of this encounter
--- OUTSIDE RECORDS SUMMARY | 2024-11-08 11:16 | XMS_ITS | Encounter Summary ---
Author Organization [facility] Address [address] [place] [address]. [place] [address] [place] [address] Care Team Providers Care Forensic Ballistics Expert Name Role Phone Sergo Mackey MD Primary Care Provider Sergo Duncan MD Primary Care Provider Sergo Duncan MD Primary Care Provider Julian short Encounter Details Date Type Department Care Team (Late st Contact Info) Description 07/16/2016 Abstract [facility] [place] [address] Sergo Mackey MD Social History [...] (U) 2525 ML 07/17/2016 8:34 AM CDT [facility] METANEPHRINE (U) 24 HR 70 25 - 222 mcg/24 h 07/22/2016 4:46 AM CDT [facility] BEST-CHANTI LLY NORMETANEPHRINE (U) 24 HRS 190 40 - 412 mcg/24 h 07/22/2016 4:46 AM CDT [facility] MARY TRUJILLORAMON ANA METANEPHRINES TOTAL (U) 260 94 - 604 mcg/24 h 07/22/2016 4:46 AM CDT [facility] LELE PEREZ Comment: A four fold elevation of urinary normetanephrines is extremely likely to be due to a tumor, while a four fold elevation of urinary metanephrines is highly suggestive, but not diagnostic of the tumor. Measurement of plasma Metanephrines and Chromogranin A is recommended for confirmation. Test Performed by [facility], [facility] [place], [address] [place] [address] Aaron Kennedy M.D., Ph.D., Director of Laboratories , [place] [id number] 07/16/2016 3:35 PM CDT 07/17/2016 8:33 AM CDT us Generic Conversion Md JOHNSON URINE ORDERABLES Final Result Performing Organization Address City/[facility]/ZIP Co de Phone Number [facility] CASSANDRACHESTERStar [address] [place] [address], [place] [phone] [facility] [address] [place] [address], [place] [phone] * 5-HIAA URINE 24 HR (07/16/2016 3:35 PM CDT) VOLUME (U) 2525 ML 07/17/2016 8:33 AM CDT [facility] 5-HIAA 3.3 <=6.0 mg/24 h 07/22/2016 4:46 AM CDT [facility] BESTShannonCHESTER Graves 07/16/2016 3:35 PM CDT 07/17/2016 8:33 AM CDT us Generic Conversion Md JOHNSON URINE ORDERABLES Final Result [facility] [address] [place], [place] , [place] [phone] [facility] [address] [place] [address], [place] [phone] * CATECHOLAMINES URINE 24 HR (07/16/2016 3:35 PM CDT) VOLUME (U) 2525 ML 07/17/2016 8:32 AM CDT [facility] EPINEPHRINE (U) REPORT 6 3:42 AM CDT [facility] BEST-RAMON LLY Comment: Results are below the reportable range for this analyte, which is 2.0 mcg/L. NOREPINEPHRINE (U) 51 15 - 100 mcg/24 h 07/22/2016 3:42 AM CDT [facility] LELE PEREZ CATECHOLAMINE-URIN E TOTAL 51 26 - 121 mcg/24 h 07/22/2016 3:42 AM CDT [facility] LELE PEREZ DOPAMINE (U) 379 52 - 480 mcg/24 h 07/22/2016 3:42 AM CDT [facility] LELE PEREZ Comment: Test Performed by Sandie Zelaya [facility], [address] [place] [address] Aaron Kennedy M.D., Ph.D., Director of Laboratories , [facility] [id number] 07/16/2016 3:35 PM CDT 07/17/2016 8:32 AM CDT us Generic Conversion Md JOHNSON URINE ORDERABLES Final Result Performing Organization Address [facility]/ZIP Co de Phone Number [facility] [address] [place], [place] , [place] [phone] [facility] [address] [place] [address], [place] [phone] documented in this encounter Visit Diagnoses Diagnosis Noninfective gastroenteritis and colitis Other and unspecified noninfectious gastroenteritis and colitis documented in this encounter Care Teams Forensic Ballistics Expert Relationship Specialty Start Date End Date Sergo Mackey MD PCP - General 04/07/17 Sergo Mackey MD PCP - General 08/05/16 04/06/17 Sergo Mackey MD PCP - General 07/16/16 08/04/16 documented as of this encounter
--- OUTSIDE RECORDS SUMMARY | 2024-11-08 11:16 | XMS_ITS | Encounter Summary ---
Author Organization [facility] Address [facility]. [place], [place] [address] [place] [address] Care Team Providers Care Shopping Investigator Name Role Phone Sergo Mackey MD Primary Care Provider Sergo Duncan MD Primary Care Provider Sergo Duncan MD Primary Care Provider Julian short Encounter Details Date Type Department Care Team (Latest Contact Info) Description 07/21/2016 Abstract [facility] Medical Group Social [...] feel free to contact my office at [phone]. Sergo Mackey M.D. Electronically signed by:Fariba Garvey MA Jul 21 2016 4:56PM AIRPORT SECURITY SCREENER Author documented in this encounter Plan of Treatment Not on file documented as of this encounter Visit Diagnoses Not on filedocumented in this encounter Care Teams Shopping Investigator Relationship Specialty Start Date End Date Sergo Mackey MD PCP - General 04/07/17 Sergo Mackey MD PCP - General 08/05/16 04/06/17 Sergo Mackey MD PCP - General 07/16/16 08/04/16 documented as of this encounter
--- OUTSIDE RECORDS SUMMARY | 2024-11-08 11:16 | XMS_ITS | Encounter Summary ---
Author Organization [facility] Address [address] [place] [address]. [place] [address] [place] [address] Care Team Providers Care Keyboard Instrument Tuner Name Role Phone Sergo Mackey MD Primary Care Provider Sergo Duncan MD Primary Care Provider Sergo Duncan MD Primary Care Provider Sergo Duncan MD Primary Care Provider Sergo Duncan MD Primary Care Provider Julian short Encounter Details Date Type Department Care Team (Late st Contact Info) Description 06/16/2016 Abstract [facility] [place] [address] Sergo Mackey MD Social History Tobacco Use [...] - 4.20 mIU/mL 06/16/2016 8:22 PM CDT [facility] SERUM OR PLASMA SPECIMEN / Unknown 06/16/2016 3:16 PM CDT 06/16/2016 7:49 PM CDT us Generic Conversion Md JOHNSON LABORATORY Final R esult [facility] [address] [place] [address], * COMPREHENSIVE METABOLIC PANEL (06/16/2016 3:16 PM CDT) Pathologist [facility] GLUCOSE 96 70 - 99 mg/dL 06/16/2016 8:22 PM CDT [facility] BUN 10 8 - 23 mg/dL 06/16/2016 8:22 PM CDT [facility] CREATININE S/P/B 0.65 0.60 - 1.10 mg/dL 06/16/2016 8:22 PM CDT [facility] SODIUM S/P/B 140 136 - 145 mmol/L 06/16/2016 8:22 PM CDT [facility] POTASSIUM S/P/B 4.5 3.5 - 5.1 mmol/L 06/16/2016 8:22 PM CDT [facility] CHLORIDE S/P/B 101 98 - 107 mmol/L 06/16/2016 8:22 PM CDT [facility] CO2 25 22 - 29 mmol/L 06/16/2016 8:22 PM CDT [facility] BILIRUBIN TOTAL S/P/B 0.6 0.2 - 1.2 mg/dL 06/16/2016 8:22 PM CDT [facility] CALCIUM S/P/B 9.8 8.6 - 10.2 mg/dL 06/16/2016 8:22 PM CDT [facility] ALKALINE PHOSPHATASE S/P/B 74 35 - 104 U/L 06/16/2016 8:22 PM CDT [facility] AST 18 0 - 32 U/L 06/16/2016 8:22 PM CDT [facility] TOTAL PROTEIN S/P/B 7.5 6.4 - 8.3 g/dL 06/16/2016 8:22 PM CDT [facility] ALBUMIN S/P/B 4.8 3.5 - 5.2 g/dL 06/16/2016 8:22 PM CDT [facility] ALT 19 0 - 33 U/L 06/16/2016 8:22 PM CDT [facility] GLOBULIN 2.7 2.3 - 3.6 g/dL 06/16/2016 8:22 PM CDT [facility] A/G RATIO 1.8 1.0 - 2.0 06/16/2016 8:22 PM CDT [facility] ANION GAP 19 8 - 20 06/16/2016 8:22 PM CDT [facility] EGFR NON-AFR. AMER. >60 >60 mL/min/1.7 '2 06/16/2016 8:22 PM CDT [facility] EGFR AFR. AMER. >60 >60 mL/min/1.7 '2 06/16/2016 8:22 PM CDT [facility] Comment: NOTE: eGFR is not calculated for patients <18 years of age. This is an estimated GFR (CKD EPI) and should not be used for calculating drug doses. 06/16/2016 3:16 PM CDT 06/16/2016 7:49 PM CDT us Generic Conversion Md [facility] Final R esult [facility] [address] [place] [address], [place] [phone] * (ABNORMAL) CBC W/DIFF AUTOMATED (06/16/2016 3:16 PM CDT) [facility] WBC 8.9 4.8 - 10.8 X10'3/uL 06/16/2016 7:56 PM CDT [facility] RBC 4.95 4.20 - 5.40 X10'6/uL 06/16/2016 7:56 PM CDT [facility] HGB 14.0 12.0 - 16.0 g/dL 06/16/2016 7:56 PM CDT [facility] HCT 44.5 38.0 - 48.0 % 06/16/2016 7:56 PM CDT [facility] MCV 89.9 81.0 - 99.0 fL 06/16/2016 7:56 PM CDT [facility] MCH 28.3 27.0 - 31.0 pg 06/16/2016 7:56 PM CDT [facility] MCHC 31.5(L) 32.0 - 36.0 g/dL 06/16/2016 7:56 PM CDT [facility] RDW 13.1 11.5 - 14.5 % 06/16/2016 7:56 PM CDT [facility] PLT 324 130 - 400 X10'3/uL 06/16/2016 7:56 PM CDT [facility] MPV 10.3 9.3 - 12.2 fL 06/16/2016 7:56 PM CDT [facility] DIFFERENTIAL TYPE AUTOMATED 06/16/2016 7:56 PM CDT [facility] NEUTROPHILS % 67.0(H) 43.0 - 65.0 % 06/16/2016 7:56 PM CDT [facility] LYMPHOCYTES % 26.0 20.0 - 46.0 % 06/16/2016 7:56 PM CDT [facility] MONOCYTES % 4.5(L) 5.0 - 12.0 % 06/16/2016 7:56 PM CDT [facility] EOSINOPHILS 1.6 1.0 - 3.0 % 06/16/2016 7:56 PM CDT [facility] BASOPHILS 0.7 0.0 - 1.0 % 06/16/2016 7:56 PM CDT [facility] IMMATURE GRANS % 0.2 0.0 - 1.0 % 06/16/2016 7:56 PM CDT [facility] 06/16/2016 3:1 6 PM CDT 06/16/2016 7:49 PM CDT us Generic Conversion Md [facility] Final R esult [facility] [address] [place] [address], documented in this encounter Visit Diagnoses Diagnosis Bipolar disorder (CMS/HCC [facility]) Bipolar disorder, unspecified documented in this encounter Care Teams Keyboard Instrument Tuner Relationship Specialty Start Date End Date Sergo Mackey MD PCP - General 04/07/17 Sergo Mackey MD PCP - General 08/05/16 04/06/17 Sergo Mackey MD PCP - General 07/16/16 08/04/16 Sergo Mackey MD PCP - General 07/14/16 07/15/16 Sergo Mackey MD PCP - General 06/16/16 07/13/16 documented as of this encounter
--- OUTSIDE RECORDS SUMMARY | 2024-11-08 11:16 | XMS_ITS | Encounter Summary ---
Author Organization [facility] Address [address] [place] [address]. [place], [place] [address] [place] [address] Care Team Providers Care Pet Care Technician Name Role Phone Sergo Mackey MD Primary Care Provider Sergo Duncan MD Primary Care Provider Julian short Encounter Details Date Type Department Care Team (Latest Contact Info) Description 08/14/[address] [facility] Medical Group [...] on filedocumented in this encounter Care Teams Pet Care Technician Relationship Specialty Start Date End Date Sergo Mackey MD PCP - General 04/07/17 Sergo Mackey MD PCP - General 08/05/16 04/06/17 documented as of this encounter
--- OUTSIDE RECORDS SUMMARY | 2024-11-08 11:16 | XMS_ITS | Encounter Summary ---
Author Organization [facility] Address [facility] [place] [address] [place] [address] Care Team Providers Care Fisheries Director Name Role Phone Sergo Mackey MD Primary Care Provider Sergo Duncan MD Primary Care Provider Sergo Duncan MD Primary Care Provider Sergo Duncan MD Primary Care Provider Sergo Duncan MD Primary Care Provider Julian short Encounter Details Date Type Department Care Team (Late st Contact Info) Description 04/10/2014 Abstract [facility] Medical Group Family & Internal Medicine [address] [address] Sergo Mackey MD Social History [...] Chief Complaint Free Text: Was seen at [facility] and needed to start control but b/p [...] Plan 1. LC-C difficile Toxins A+B, EIA [id number] Status: Active Requested for: 10Apr2014 Perform: [facility] Due: [id number] Marked Important; Last Updated By: Shirley Zhang; 04/10/2014 3:52:49 PM; Ordered; For: Chronic diarrhea; Ordered By: Sergo Mackey 2. LC-Ova + Parasite Exam [id number] Status: Active Requested for: 10Apr2014 Perform: [facility] Due: [id number] Marked Important; Last Updated By: Shirley Zhang; 04/10/2014 3:52:49 PM; Ordered; For: Chronic diarrhea; Ordered By: Sergo Mackey 3. LC-Stool Culture [id number] Status: Active Requested for: 10Apr2014 Perform: [facility] Due: [id number] Marked Important; Last Updated By: Shirley Zhang; 04/10/2014 3:52:48 PM; Ordered; For: Chronic diarrhea; Ordered By: Sergo Mackey 4. LC-White Blood Cells ( WBC ), Stool [id number] Status: Active Requested for: 10Apr2014 Perform: [facility] Due: [id number] Marked Important; Last Updated By: Shirley Zhang; [...] Assay Status: Canceled - Manual Activation Perform: [facility] Due: 17Apr2014; Last Updated By: Shirley Zhang; 04/10/2014 3:52:48 PM; Ordered; For: Chronic diarrhea; Ordered By: Sergo Mackey 7. Stool Culture Status: Canceled - Manual Activation [facility]: 17Apr[facility]; Last Updated [...] Sergo Mackey M.D.; Apr 12 2014 5:45PM CARD ASSEMBLER (Author) documented in this encounter Plan of Treatment Not on file documented as of this encounter Visit Diagnoses Not on filedocumented in this encounter Care Teams Fisheries Director Relationship Specialty Start Date End Date Sergo Mackey MD PCP - General 04/07/17 Sergo Mackey MD PCP - General 08/05/16 04/06/17 Sergo Mackey MD PCP - General 07/16/16 08/04/16 Sergo Mackey MD PCP - General 07/14/16 07/15/16 Sergo Mackey MD PCP - General 06/16/16 07/13/16 documented as of this encounter
--- OUTSIDE RECORDS SUMMARY | 2024-11-08 11:16 | XMS_ITS | Encounter Summary ---
Author Organization [facility] Address [facility]. [place], [place] [address] [place] [address] Care Team Providers Care Head Of Sales Name Role Phone Sergo Mackey MD Primary Care Provider Sergo Duncan MD Primary Care Provider Julian short Encounter Details Date Type Department Care Team (Latest Contact Info) Description 10/22/2016 Abstract [facility] Medical [...] Task Name: Medical Complaint Callback Assigned To: [facility] Narendra Regarding Patient: Alia Fabian, Status: Active Comment: Jaclyn Santana - 22 Oct 2016 3:43 PM TASK CREATED Caller: Self; Medical Complaint; Pt stated that at 09/10/16 she talked to you about speaking with her ob Shanell Vale [phone] at [facility] [place] regarding her being able to use prestrogen with her blood pressure. Asking if this has been done. Sergo Mackey - 22 Oct 2016 5:09 PM TASK REASSIGNED: Previously Assigned To Sergo Mackey Med list has both propranolol and metoprolol included. She should be on one or the other. I'm not sure if Potato Chip Fryer wanted to start a progestin contraceptive but that would be fine if that is the plan. Message: PATIENT NOTIFIED -SJS Signatures Electronically signed by : Fariba Garvey MA; Oct 22 2016 5:17PM TOMATO GRADER (Author) documented in this encounter Plan of Treatment Not on file documented as of this encounter Visit Diagnoses Not on filedocumented in this encounter Care Teams Head Of Sales Relationship Specialty Start Date End Date Sergo Mackey MD PCP - General 04/07/17 Sergo Mackey MD PCP - General 08/05/16 04/06/17 documented as of this encounter
--- OUTSIDE RECORDS SUMMARY | 2024-11-08 11:16 | XMS_ITS | Encounter Summary ---
Author Organization [facility] Address [facility] [place] [address] [place] [address] Care Team Providers Care Pediatric Cns Name Role Phone Sergo Mackey MD Primary Care Provider Sergo Duncan MD Primary Care Provider Sergo Duncan MD Primary Care Provider Julian short Encounter Details Date Type Department Care Team (Latest Contact Info) Description 07/24/2016 Abstract [facility] Medical Group Social History Tobacco Use [...] Verified Results Ur Fract Catecholamines 24 Hr [id number] 03:35PM Sergo Mackey Test Name Result Flag [...] 480 Unit: mcg/24 h Test Performed by [facility], [address] [place] [address] Aaron Kennedy M.D., Ph.D., Director of Laboratories , [facility] [id number] Discussion/Summary The detailed analysis of hormones in [...] Eloisa Wolfe R.N.; Aug 03 2016 3:27PM INFANTRY INDIRECT FIRE CREWMEMBER (Author) documented in this encounter Plan of Treatment Not on file documented as of this encounter Visit Diagnoses Not on filedocumented in this encounter Care Teams Pediatric Cns Relationship Specialty Start Date End Date Sergo Mackey MD PCP - General 04/07/17 Sergo Mackey MD PCP - General 08/05/16 04/06/17 Sergo Mackey MD PCP - General 07/16/16 08/04/16 documented as of this encounter
--- OUTSIDE RECORDS SUMMARY | 2024-11-08 11:16 | XMS_ITS | Encounter Summary ---
Author Organization [facility] Address [address] [place] [address]. [place], [place] [address] [place] [address] Care Team Providers Care Bell Maker Name Role Phone Sergo Mackey MD Primary Care Provider Sergo Duncan MD Primary Care Provider Julian short Encounter Details Date Type Department Care Team (Latest Contact Info) Description 08/20/2016 Abstract [facility] Medical Group [...] Task Name: Medical Complaint Callback Assigned To: [facility] Team Regarding Patient: Alia Fabian, Status: In Progress Comment: Nellie Moy - 20 Aug 2016 11:18 AM TASK CREATED Alia's head CT is normal . Elsa Rivera 20 Aug 2016 4:35 PM TASK IN PROGRESS Elsa Rivera 20 Aug 2016 4:36 PM TASK EDITED Patient informed//af Signatures Electronically signed by : Elsa Rivera, ; Aug 20 2016 4:36PM MEDICAL RECORDS TECH (Author) documented in this encounter Plan of Treatment Not on file documented as of this encounter Visit Diagnoses Not on filedocumented in this encounter Care Teams Bell Maker Relationship Specialty Start Date End Date Sergo Mackey MD PCP - General 04/07/17 Sergo Mackey MD PCP - General 08/05/16 04/06/17 documented as of this encounter
--- OUTSIDE RECORDS SUMMARY | 2024-11-08 11:16 | XMS_ITS | Encounter Summary ---
Author Organization [facility] - [facility] Address [facility] [place]. [place], [place] [address] [place] [address] Care Team Providers Care Leasing Coordinator Name Role Phone Sergo Mackey MD Primary Care Provider Sergo Duncan MD Primary Care Provider Julian short Encounter Details Date Type Department Care Team (Latest Contact Info) Description 12/09/2016 Abstract [facility] Medical Group Social History Tobacco [...] Mackey Task Name: Follow Up Assigned To: [facility] [place] [place] Team Narendra Regarding Patient: Alia Fabian, Status: In Progress Comment: Sergo Mackey - 09 Dec 2016 10:04 AM TASK CREATED Ultrasound of the liver, gallbladder and surrounding structures was good/normal. We can have her see a coil connector repairer if she is continuing to have stomach symptoms. Fariba Garvey - 09 Dec 2016 10:27 AM TASK IN PROGRESS Message: Patient notified and already sees GI-sjs Signatures Electronically signed by : Fariba Garvey MA; Dec 09 2016 10:28AM BOARDING HOUSE COOK (Author) documented in this encounter Plan of Treatment Not on file documented as of this encounter Visit Diagnoses Not on filedocumented in this encounter Care Teams Leasing Coordinator Relationship Specialty Start Date End Date Sergo Mackey MD PCP - General 04/07/17 Sergo Mackey MD PCP - General 08/05/16 04/06/17 documented as of this encounter
--- OUTSIDE RECORDS SUMMARY | 2024-11-08 11:16 | XMS_ITS | Encounter Summary ---
Author Organization [facility] Address [address] [place] [address]. [place], [place] [address] [place] [address] Care Team Providers Care Truck Railroad And Bus Motor Mechanic Name Role Phone Sergo Mackey MD Primary Care Provider Sergo Duncan MD Primary Care Provider Julian short Encounter Details Date Type Department Care Team (Latest Contact Info) Description 02/18/2017 Abstract [facility] Medical Group [...] on filedocumented in this encounter Care Teams Truck Railroad And Bus Motor Mechanic Relationship Specialty Start Date End Date Sergo Mackey MD PCP - General 04/07/17 Sergo Mackey MD PCP - General 08/05/16 04/06/17 documented as of this encounter
--- OUTSIDE RECORDS SUMMARY | 2024-11-08 11:16 | XMS_ITS | Encounter Summary ---
Author Organization [facility] Address [address] [place] [address]. [place] [address] [place] [address] Care Team Providers Care Test Desk Operator Name Role Phone Sergo Mackey MD Primary Care Provider Sergo Duncan MD Primary Care Provider Julian short Encounter Details Date Type Department Care Team (Latest Contact Info) Description 12/14/2016 Abstract [facility] Medical Group Social [...] -елена Verified Results QU-CELIAC DISEASE COMPREHENSIVE PANEL [id number] 10:52AM Sergo Mackey Test Name Result Flag [...] A 171 mg/dL 81-463 Test Performed at: [facility]/[address] SHARI ODOM MD,PHD QU-COMPREHENSIVE METABOLIC PANEL 64521 [id number] 10:52AM Sergo Mackey Test Name Result Flag Reference GLUCOSE 99 mg/dL 65-99 Fasting reference interval UREA NITROGEN (BUN) 9 mg/dL 7-25 CREATININE 0.59 mg/dL 0.50-1.10 eGFR NON-AFR. GIBRALT[place] 128 > OR = 60 UNITS: mL/min/1.73m2 [...] ALT 16 U/L 6-29 Test Performed at: [facility] [address] [place] [address] KALI HENDRICKS DO,MPH QU-CBC ( INCLUDES DIFF/PLT ) 6399 [id number] 10:52AM Sergo Mackey Test Name Result Flag Reference WHITE BLOOD CELL COUNT 7.4 3.8-10.8 UNITS: Thousand/uL RED BLOOD CELL COUNT 4.76 Million/uL 3.80-5.10 HEMOGLOBIN 13.7 g/dL 11.7-15.5 HEMATOCRIT 41.4 % 35.0-45.0 MCV 86.8 fL 80.0-100.0 MCH 28.7 pg 27.0-33.0 MCHC 33.0 g/dL 32.0-36.0 RDW 13.2 % 11.0-15.0 PLATELET COUNT 313 140-400 UNITS: Thousand/uL MPV 8.1 fL 7.5-12.5 ABSOLUTE NEUTROPHILS 4721 cells/uL 9326-3750 ABSOLUTE LYMPHOCYTES 2220 cells/uL 850-3900 ABSOLUTE MONOCYTES 281 cells/uL 200-950 ABSOLUTE EOSINOPHILS 148 cells/uL 15-500 ABSOLUTE BASOPHILS 30 cells/uL 0-200 NEUTROPHILS 63.8 % LYMPHOCYTES 30.0 % MONOCYTES 3.8 % EOSINOPHILS 2.0 % BASOPHILS 0.4 % REPORT COMMENT: NO DRAW FEE 2ND ORDER,PT REFUSED SIMILAR TESTING [id number] REQ FASTING:YES PATIENT REFUSED SOME TESTING; PATIENT ENCOURAGED Test Performed at: [facility] [address] [place] [address] KALI HENDRICKS DO,MPH Discussion/Summary Labs all good/normal including screening for celiac disease. Signatures Electronically signed by : Eloisa Wolfe R.N.; Dec 14 2016 1:17PM ADMINISTRATIVE NURSING SUPERVISOR (Author) documented in this encounter Plan of Treatment Not on file documented as of this encounter Visit Diagnoses Not on filedocumented in this encounter Care Teams Test Desk Operator Relationship Specialty Start Date End Date Sergo Mackey MD PCP - General 04/07/17 Sergo Mackey MD PCP - General 08/05/16 04/06/17 documented as of this encounter
--- OUTSIDE RECORDS SUMMARY | 2024-11-08 11:16 | XMS_ITS | Encounter Summary ---
Author Organization [facility] Address [address] [place] [address]. [place], [place] [address] [place] [address] Care Team Providers Care Sample Mounter Name Role Phone Sergo Mackey MD Primary Care Provider Sergo Duncan MD Primary Care Provider Julian short Encounter Details Date Type Department Care Team (Latest Contact Info) Description 03/17/2017 Abstract [facility] Medical [...] filedocumented in this encounter Care Teams Sample Mounter Relationship Specialty Start Date End Date Sergo Mackey MD PCP - General 04/07/17 Sergo Mackey MD PCP - General 08/05/16 04/06/17 documented as of this encounter
--- OUTSIDE RECORDS SUMMARY | 2024-11-08 11:16 | XMS_ITS | Encounter Summary ---
Author Organization [facility] Address [facility] [place] [address] [place] [address] Care Team Providers Care Cigarette Carton Sealer Name Role Phone Sergo Mackey MD Primary Care Provider Sergo Duncan MD Primary Care Provider Julian short Encounter Details Date Type Department Care Team (Latest Contact Info) Description 02/04/2017 Abstract [facility] Medical Group Social History Tobacco Use Types [...] November and wants to reschedule it to [facility] instead. Apt is on 02-08-17. Plan 1. US KIDNEYS BI; Status:Hold For - Scheduling; Requested for:[id number]; Perform:[facility] Radiology; Due:[id number]; Last Updated By:Marcela Wilson; 02/04/2017 11:39:06 AM;Ordered; For:Hematuria, Urinary frequency; Ordered By:Angeli Wu; Signatures Electronically signed by : Marcela Wilson MA; Feb 04 2017 11:40AM MEDICAL OFFICE ASSISTANT INSTRUCTOR (Author) documented in this encounter Plan of Treatment Not on file documented as of this encounter Visit Diagnoses Not on filedocumented in this encounter Care Teams Cigarette Carton Sealer Relationship Specialty Start Date End Date Sergo Mackey MD PCP - General 04/07/17 Sergo Mackey MD PCP - General 08/05/16 04/06/17 documented as of this encounter
--- OUTSIDE RECORDS SUMMARY | 2024-11-08 11:16 | XMS_ITS | Encounter Summary ---
Author Organization [facility] Address [facility]. [place], [place] [address] [place] [address] Care Team Providers Care Cuff Cutter Name Role Phone Sergo Mackey MD Primary Care Provider Sergo Duncan MD Primary Care Provider Sergo Duncan MD Primary Care Provider Sergo Duncan MD Primary Care Provider Julian labSergo tSratton MD Primary Care Provider [facility] Encounter Details Date Type Department Care Team (Latest Contact Info) Description 06/28/2016 Abstract [facility] Medical Group Social [...] on filedocumented in this encounter Care Teams Cuff Cutter Relationship Specialty Start Date End Date Sergo Mackey MD PCP - General 04/07/17 Sergo Mackey MD PCP - General 08/05/16 04/06/17 Sergo Mackey MD PCP - General 07/16/16 08/04/16 Sergo Mackey MD PCP - General 07/14/16 07/15/16 Sergo Mackey MD PCP - General 06/16/16 07/13/16 documented as of this encounter
--- OUTSIDE RECORDS SUMMARY | 2024-11-08 11:16 | XMS_ITS | Encounter Summary ---
Author Organization [facility] Address [facility]6 [facility]. [place], [place] [address] [place] [address] Care Team Providers Care Telesales Consultant Name Role Phone Sergo Mackey MD Primary Care Provider Sergo Duncan MD Primary Care Provider Sergo Duncan MD Primary Care Provider Sergo Duncan MD Primary Care Provider Sergo Duncan MD Primary Care Provider Julian short Encounter Details Date Type Department Care Team (Latest Contact Info) Description 10/07/2015 Abstract [facility] Medical Group Social History Tobacco Use [...] Mackey Task Name: Follow Up Assigned To: [facility] [place] [facility] [place] [place] Narendra Regarding Patient: Alia Fabian, Status: In Progress Comment: Srego Mackey - 01 Oct 2015 7:51 PM [...] Ibeth Van, ; Oct 07 2015 2:10PM RIB KNITTER (Author) documented in this encounter Plan of Treatment Not on file documented as of this encounter Visit Diagnoses Not on filedocumented in this encounter Care Teams Telesales Consultant Relationship Specialty Start Date End Date Sergo Mackey MD PCP - General 04/07/17 Sergo Mackey MD PCP - General 08/05/16 04/06/17 Sergo Mackey MD PCP - General 07/16/16 08/04/16 Sergo Mackey MD PCP - General 07/14/16 07/15/16 Sergo Mackey MD PCP - General 06/16/16 07/13/16 documented as of this encounter
--- OUTSIDE RECORDS SUMMARY | 2024-11-08 11:16 | XMS_ITS | Encounter Summary ---
Author Organization [facility] Address [address] [place] [address]. [place], [place] [address] [place] [address] Care Team Providers Care Camouflage Specialist Name Role Phone Sergo Mackey MD Primary Care Provider Sergo Duncan MD Primary Care Provider Julian short Encounter Details Date Type Department Care Team (Latest Contact Info) Description 12/08/2016 Abstract [facility] Medical Group Sergo Mackey MD Social [...] on filedocumented in this encounter Care Teams Camouflage Specialist Relationship Specialty Start Date End Date Sergo Mackey MD PCP - General 04/07/17 Sergo Mackey MD PCP - General 08/05/16 04/06/17 documented as of this encounter
--- OUTSIDE RECORDS SUMMARY | 2024-11-08 11:16 | XMS_ITS | Encounter Summary ---
Author Organization [facility] Address [address] [place] [address]. [place], [place] [address] [place] [address] Care Team Providers Care Supervisor Pipeline Name Role Phone Sergo Mackey MD Primary Care Provider Sergo Duncan MD Primary Care Provider Julian short Encounter Details Date Type Department Care Team (Latest Contact Info) Description 12/01/2016 Abstract [facility] Medical Group Social History [...] filedocumented in this encounter Care Teams Supervisor Pipeline Relationship Specialty Start Date End Date Sergo Mackey MD PCP - General 04/07/17 Sergo Mackey MD PCP - General 08/05/16 04/06/17 documented as of this encounter
--- OUTSIDE RECORDS SUMMARY | 2024-11-08 11:16 | XMS_ITS | Encounter Summary ---
Author Organization [facility] Address [address] [place] [address]. [place] [address] [place] [address] Care Team Providers Care Enrollment Services Vice President Name Role Phone Sergo Mackey MD Primary Care Provider Sergo Duncan MD Primary Care Provider Julian short Encounter Details Date Type Department Care Team (Late st Contact Info) Description 08/05/2016 Abstract [facility] [place] [address] Nellie Moy FNP [address] [place] [address] Social History Tobacco Use Types [...] - 99 mg/dL 08/05/2016 8:[address] [facility] BUN 7(L) 8 - 23 mg/dL 08/05/2016 8:[address] [facility] CREATININE S/P/B 0.79 0.60 - 1.10 mg/dL 08/05/2016 8:[address] [facility] SODIUM S/P/B 139 136 - 145 mmol/L 08/05/2016 8:[address] [facility] POTASSIUM S/P/B 4.4 3.5 - 5.1 mmol/L 08/05/2016 8:[address] [facility] CHLORIDE S/P/B 99 98 - 107 mmol/L 08/05/2016 8:[address] [facility] CO2 26 22 - 29 mmol/L 08/05/2016 8:[address] [facility] BILIRUBIN TOTAL S/P/B 0.6 0.2 - 1.2 mg/dL 08/05/2016 8:[address] [facility] CALCIUM S/P/B 10.0 8.6 - 10.2 mg/dL 08/05/2016 8:[address] [facility] ALKALINE PHOSPHATASE S/P/B 60 35 - 104 U/L 08/05/2016 8:[address] [facility] AST 25 0 - 32 U/L 08/05/2016 8:[address] [facility] TOTAL PROTEIN S/P/B 7.4 6.4 - 8.3 g/dL 08/05/2016 8:[address] [facility] ALBUMIN S/P/B 4.6 3.5 - 5.2 g/dL 08/05/2016 8:[address] [facility] ALT 22 0 - 33 U/L 08/05/2016 8:[address] [facility] GLOBULIN 2.8 2.3 - 3.6 g/dL 08/05/2016 8:[address] [facility] A/G RATIO 1.6 1.0 - 2.0 08/05/2016 8:[address] [facility] ANION GAP 18 8 - 20 08/05/2016 8:[address] [facility] EGFR NON-AFR. AMER. >60 >60 mL/min/1.7 3m'2 08/05/2016 8:[address] [facility] EGFR AFR. AMER. >60 >60 mL/min/1.7 3m'2 08/05/2016 8:[address] [facility] Comment: NOTE: eGFR is not calculated for patients <18 years of age. This is an estimated GFR (CKD EPI) and should not be used for calculating drug doses. 08/05/2016 1:07 PM CDT 08/05/2016 7:46 PM CDT us Generic Conversion [facility] Final R esult [facility] [address] [place] [id number], [place] [phone] * (ABNORMAL) CBC W/DIFF AUTOMATED (08/05/2016 1:07 PM CDT) WBC 8.0 4.8 - 10.8 X10'3/uL 08/05/2016 8:[address] [facility] RBC 4.72 4.20 - 5.40 X10'6/uL 08/05/2016 8:[address] [facility] HGB 13.9 12.0 - 16.0 g/dL 08/05/2016 8:[address] [facility] HCT 41.9 38.0 - 48.0 % 08/05/2016 8:[address] [facility] MCV 88.8 81.0 - 99.0 fL 08/05/2016 8:[address] [facility] MCH 29.4 27.0 - 31.0 pg 08/05/2016 8:[address] [facility] MCHC 33.2 32.0 - 36.0 g/dL 08/05/2016 8:[address] [facility] RDW 12.8 11.5 - 14.5 % 08/05/2016 8:[address] [facility] PLT 342 130 - 400 X10'3/uL 08/05/2016 8:[address] [facility] MPV 10.4 9.3 - 12.2 fL 08/05/2016 8:[address] [facility] DIFFERENTIAL TYPE AUTOMATED 08/05/2016 8:[address] [facility] NEUTROPHILS % 67.0(H) 43.0 - 65.0 % 08/05/2016 8:[address] [facility] LYMPHOCYTES % 22.6 20.0 - 46.0 % 08/05/2016 8:[address] [facility] MONOCYTES % 6.6 5.0 - 12.0 % 08/05/2016 8:[address] [facility] EOSINOPHILS 3.0 1.0 - 3.0 % 08/05/2016 8:[address] [facility] BASOPHILS 0.6 0.0 - 1.0 % 08/05/2016 8:[address] [facility] IMMATURE GRANS % 0.2 0.0 - 1.0 % 08/05/2016 8:[address] [facility] 08/05/2016 1:07 PM CDT 08/05/2016 7:46 PM CDT us Generic Conversion [facility] Final R esult [facility] [address] [place] [address], documented in this encounter Visit Diagnoses Diagnosis Vomiting Vomiting alone documented in this encounter Care Teams Enrollment Services Vice President Relationship Specialty Start Date End Date Sergo Mackey MD PCP - General 04/07/17 Sergo Mackey MD PCP - General 08/05/16 04/06/17 documented as of this encounter
--- OUTSIDE RECORDS SUMMARY | 2024-11-08 11:16 | XMS_ITS | Encounter Summary ---
Author Organization [facility] Address [facility] [place] [address] [place] [address] Care Team Providers Care Sounding Device Operator Name Role Phone Sergo Mackey MD Primary Care Provider Sergo Duncan MD Primary Care Provider Julian short Encounter Details Date Type Department Care Team (Latest Contact Info) Description 03/22/2017 Abstract [facility] Medical Group [...] Mackey Task Name: Follow Up Assigned To: [facility] [place] Narendra Regarding Patient: Alia Fabian, Status: In Progress Comment: Sergo Mackey - 19 Mar 2017 8:53 AM TASK CREATED Our routine labs (cbc, cmp, tsh) are all good/normal. Await lab results from watermelon inspector. Fariba Garvey - 19 Mar 2017 8:55 AM TASK IN PROGRESS Fariba Garvey - 19 Mar 2017 8:56 AM TASK EDITED [id number] Jovanni Omalley - 22 Mar 2017 2:38 PM TASK EDITED pt informed and voiced understanding Signatures Electronically signed by : Jovanni Omalley MA; Mar 22 2017 2:38PM COMMERCIAL PROPERTY ADMINISTRATOR (Author) documented in this encounter Plan of Treatment Not on file documented as of this encounter Visit Diagnoses Not on filedocumented in this encounter Care Teams Sounding Device Operator Relationship Specialty Start Date End Date Sergo Mackey MD PCP - General 04/07/17 Sergo Mackey MD PCP - General 08/05/16 04/06/17 documented as of this encounter
--- OUTSIDE RECORDS SUMMARY | 2024-11-08 11:16 | XMS_ITS | Encounter Summary ---
Author Organization [facility] Address [address] [place] [address]. [place], [place] [address] [place] [address] Care Team Providers Care Coil Machine Supervisor Name Role Phone Sergo Mackey MD Primary Care Provider Sergo Duncan MD Primary Care Provider Julian short Encounter Details Date Type Department Care Team (Latest Contact Info) Description 08/06/2016 Abstract [facility] Medical Group , James Pineda MD [...] Eloisa Wolfe R.N.; Aug 06 2016 1:30PM X RAY DEVELOPER (Author) documented in this encounter Plan of Treatment Not on file documented as of this encounter Visit Diagnoses Not on filedocumented in this encounter Care Teams Coil Machine Supervisor Relationship Specialty Start Date End Date Sergo Mackey MD PCP - General 04/07/17 Sergo Mackey MD PCP - General 08/05/16 04/06/17 documented as of this encounter
--- OUTSIDE RECORDS SUMMARY | 2024-11-08 11:16 | XMS_ITS | Encounter Summary ---
Author Organization [facility] Address [facility]6 [facility]. [place], [place] [address] [place] [address] Care Team Providers Care Wind Development Director Name Role Phone Sergo Mackey MD Primary Care Provider Sergo Duncan MD Primary Care Provider Julian short Encounter Details Date Type Department Care Team (Latest Contact Info) Description 02/08/2017 Abstract [facility] Medical Group Angeli Wu, EMELYN [address] [phone] Social History Tobacco Use Types [...] on filedocumented in this encounter Care Teams Wind Development Director Relationship Specialty Start Date End Date Sergo Mackey MD PCP - General 04/07/17 Sergo Makcey MD PCP - General 08/05/16 04/06/17 documented as of this encounter
--- OUTSIDE RECORDS SUMMARY | 2024-11-08 11:16 | XMS_ITS | Encounter Summary ---
Author Organization [facility] Address [address] [place] [address]. [place], [place] [address] [place] [address] Care Team Providers Care Nurse Practitioner Home Assessments Name Role Phone Sergo Mackey MD Primary Care Provider Sergo Duncan MD Primary Care Provider Julian short Encounter Details Date Type Department Care Team (Latest Contact Info) Description 08/26/2016 Abstract [facility] Medical Group Social [...] filedocumented in this encounter Care Teams Nurse Practitioner Home Assessments Relationship Specialty Start Date End Date Sergo Mackey MD PCP - General 04/07/17 Sergo Mackey MD PCP - General 08/05/16 04/06/17 documented as of this encounter
--- OUTSIDE RECORDS SUMMARY | 2024-11-08 11:16 | XMS_ITS | Encounter Summary ---
Author Organization [facility] Address [facility]. [place], [place] [address] [place] [address] Care Team Providers Care Medical Attendant Name Role Phone Sergo Mackey MD Primary Care Provider Sergo Duncan MD Primary Care Provider Sergo Duncan MD Primary Care Provider Sergo Duncan MD Primary Care Provider Sergo Duncan MD Primary Care Provider Julian short Encounter Details Date Type Department Care Team (Latest Contact Info) Description 06/16/2016 Abstract [facility] Medical Group Sergo Mackey MD [...] W/DIFF AUTOMATED (06/16/2016 3:16 PM CDT) Pathologist [facility] WBC 8.9 4.8 - 10.8 X10'3/uL MEDGROUP [...] patient communication needed at this time us Srego Mackey MD LABORATORY Final Result MEDGROUP [...] filedocumented in this encounter Care Teams Medical Attendant Relationship Specialty Start Date End Date Sergo Mackey MD PCP - General 04/07/17 Sergo Mackey MD PCP - General 08/05/16 04/06/17 Sergo Mackey MD PCP - General 07/16/16 08/04/16 Sergo Mackey MD PCP - General 07/14/16 07/15/16 Sergo Mackey MD PCP - General 06/16/16 07/13/16 documented as of this encounter
--- OUTSIDE RECORDS SUMMARY | 2024-11-08 11:16 | XMS_ITS | Encounter Summary ---
Author Organization [facility] Address [address] [place] [address]. [place] [address] [place] [address] Care Team Providers Care Heavy Equipment Sales Associate Name Role Phone Sergo Mackey MD Primary Care Provider Sergo Duncan MD Primary Care Provider Sergo Duncan MD Primary Care Provider Sergo Duncan MD Primary Care Provider Sergo Duncan MD Primary Care Provider Julian short Encounter Details Date Type Department Care Team (Late st Contact Info) Description 06/30/2016 Abstract [facility] Family & Internal Medicine [address] [phone] Sergo Mackey MD Social History [...] Verified Results *Urine dip auto In Office [id number] 02:45PM Sergo Mackey Test Name Result Flag Reference Color Yellow Clarity Clear Glucose Negative Bilirubin Negative Ketones Negative Specific [place] 1.015 Blood Negative pH 5.5 5.0 - [...] Eloisa Wolfe R.N.; Jul 02 2016 9:06AM SCAFFOLDING HELPER (Author) * Sergo Mackey MD - 06/30/2016 [...] DAILY NEEDED ; Therapy: 10Apr2014 to (Last Rx:[id number]) Ordered Rx By: Sergo Mackey; Dispense: 0 Days ; #:90 Tablet; Refill: 0; For: Palpitations; JULIANA = N; Print Rx; Last Updated By: Fariba Garvey; 06/16/2016 3:06:43 PM Allergies 1. 12 Hour Decongestant TB12 Recorded By: Shirley Zhang; 04/10/2014 3:10:36 PM Vitals Recorded: [id number] 02:09PM Heart Rate 120 Respiration 18 Systolic [...] Glucose Negative Bilirubin Negative Ketones Negative Specific [place] 1.015 Blood Negative pH 5.5 5.0 - [...] Sergo Mackey M.D.; Jul 02 2016 5:41AM SCAFFOLDING HELPER (Author) documented in this encounter Plan of [...] on filedocumented in this encounter Care Teams Heavy Equipment Sales Associate Relationship Specialty Start Date End Date Sergo Mackey MD PCP - General 04/07/17 Sergo Mackey MD PCP - General 08/05/16 04/06/17 Sergo Mackey MD PCP - General 07/16/16 08/04/16 Sergo Mackey MD PCP - General 07/14/16 07/15/16 Sergo Mackey MD PCP - General 06/16/16 07/13/16 documented as of this encounter
--- OUTSIDE RECORDS SUMMARY | 2024-11-08 11:18 | XMS_ITS | Encounter Summary ---
Author Organization [facility] Address [address] [place] [address] Care Team Providers Care Buggyman Name Role Phone Trenton Lomeli MD Primary Care Provider [phone] Neelima Velazquez MD Unavailable [phone] Maura Wilson MD Unavailable [phone] Reason for Visit * Reason Onset Date Comments Recommendation Request 09/22/2023 Encounter Details Date Type Department Care Team (Late st Contact Info) Description 09/22/2023 Telephone [facility] Primary Care at [address] [address] Trenton Lomeli MD [address] [place] [address] [address] [place] [address] Recommendation Request Social History Tobacco [...] on file Legal Sex Female 4:15 AM COMPLIANCE COUNSEL Gender Identity Not on file Sexual Orientation Not on file 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 Specialty: Endocrinology Why does the patient want to go to this specialist? Prolactin is high, hyperthyroid symptoms Additional Comments/Concerns: none Does message need to be routed? Yes-Action Needed LIANCE COUNSEL documented in this encounter Plan of Treatment Not on file documented as of this encounter Visit Diagnoses Diagnosis Hyperthyroidism- Primary Thyrotoxicosis without mention of goiter or other cause, without mention of thyrotoxic crisis or storm Hyperprolactinemia (HCC) Other and unspecified anterior pituitary hyperfunction documented in this encounter Care Teams Buggyman Relationship Specialty Start Date End Date Trenton Lomeli MD PCP - General Family Medicine 10/06/21 Neelima Velazquez MD [address] [address] Consulting Physician Gynecology 10/06/21 Maura Wilson MD [address] [place] [address] Consulting Physician Cardiology 06/16/23 documented as of this encounter
--- OUTSIDE RECORDS SUMMARY | 2024-11-08 11:18 | XMS_ITS | Encounter Summary ---
Author Organization [facility] Address [address] [address] Care Team Providers Care Remarketing Manager Name Role Phone Trenton Lomeli MD Primary Care Provider [phone] Neelima Velazquez MD Unavailable [phone] Maura Wilson MD Unavailable [phone] Reason for Referral * Diagnostic Imaging (Routine) - Closed Specialty Diagnoses / Procedures Referred By Contac t Referred To Contact Diagnoses Class 3 severe obesity due to excess calories without serious comorbidity with body mass index (BMI) of 45.0 to 49.9 in adult (HCC) RUQ discomfort Procedures US RUQ Trenton Lomeli MD [address] [place] [address] Phone: tel: fax: External Order Referral ID Status Reason Start Date Expiration Date Visits Re quested Visits Authorized [id number] Closed 06/16/2023 07/15/2024 1 1 Reason for Visit * Reason Comments Follow-up Pt is here to f/u fr om cardiology on POTS dx and imaging. 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 You may receive a phone call, text, MYCHART message, or e-mail asking about your care today. We would love to hear your feedback on how EXCELLENT your care wastoday! Wishing you better health, always. Dr. Lomeli * Attachments The following attachments cannot be sent through Care Everywhere. * DASH Eating Plan (General Information) (Italian) documented in this encounter Progress Notes * [...] office note has been partially dictated using [employer] software, and as a result portions of the record may have been created with this software. Occasional wrong-word or 'qfika-o-sows' substitutions may have occurred due to the [...] thickening or pericholecystic fluid. No positive sonographic [place] sign reported. ?? BILIARY: ?? There is [...] D: ??08/06/2023 9:03 PM T: Report ID: [id number] Reading Location: ??[id number] Procedure Note Rosalva Patino MD - 08/06/2023 [...] wall thickening or pericholecystic fluid. No positivesonographic [place] sign reported. BILIARY: There is no intrahepatic [...] Rosalva Patino M.D. QX T: Report ID: [id number] Reading Location: [id number] us Trenton Lomeli MD IMG US PROCEDURES [...] documented as of this encounter Care Teams Remarketing Manager Relationship Specialty Start Date End Date Trenton Lomeli MD PCP - General Family Medicine 10/06/21 Neelima Velazquez MD [address] [address] Consulting Physician Gynecology 10/06/21 Maura Wislon MD [address] [place] [address] Consulting Physician Cardiology 06/16/23 documented as of this encounter
--- OUTSIDE RECORDS SUMMARY | 2024-11-08 11:18 | XMS_ITS | Encounter Summary ---
Author Organization [facility] Address [address] [place] [address] Phone Care Team Providers Care Plastic Surgery Coordinator Name Role Phone Trenton Lomeli MD Primary Care Provider [phone] Neelima Velazquez MD Unavailable [phone] Encounter Details Date Type Department Care Team (Late st Contact Info) Description 01/29/2023 Telephone [facility] Cardiology [address] [facility] Advanced Medicine 8th [place] [address] [place] [address] Maura Wilson MD [address] [facility] [address] [place], [place] [id number] Social History Tobacco Use Types Packs/Day Years [...] on file Legal Sex Female 4:15 AM ALARM INSTALLATION TECHNICIAN Gender Identity Not on file Sexual Orientation Not on file 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
--- OUTSIDE RECORDS SUMMARY | 2024-11-08 11:18 | XMS_ITS | Encounter Summary ---
Author Organization [facility] Address [address] [place] [address] Phone Care Team Providers Care Speed Belt Sander Tender Name Role Phone Trenton Lomeli MD Primary Care Provider [phone] Neelima Velazquez MD Unavailable [phone] Encounter Details Date Type Department Care Team (Late st Contact Info) Description 12/29/2022 Telephone [facility] Cardiology [address] [facility] Advanced Medicine 8th [place] [address] [place] [address] Maura Wilson MD [address] [facility] [address] [place], [place] [id number] Social History Tobacco Use Types Packs/Day Years [...] on file Legal Sex Female 4:15 AM GLOBAL REGULATORY LEAD Gender Identity Not on file Sexual Orientation Not on file 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 Please call to reschedule. [place] REGULATORY LEAD documented in this encounter Plan of Treatment Not on file documented as of this encounter Visit Diagnoses Not on filedocumented in this encounter Care Teams Speed Belt Sander Tender Relationship Specialty Start Date End Date Trenton Lomeli MD PCP - General Family Medicine 10/06/21 Neelima Velazquez MD [address] [address] Consulting Physician Gynecology 10/06/21 documented as of this encounter
--- OUTSIDE RECORDS SUMMARY | 2024-11-08 11:18 | XMS_ITS | Encounter Summary ---
Author Organization 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
--- OUTSIDE RECORDS SUMMARY | 2024-11-08 11:18 | XMS_ITS | Encounter Summary ---
Author Organization [facility] Address [address] [place] [address] Care Team Providers Care Commissary Superintendent Name Role Phone Trenton Lomeli MD Primary Care Provider [phone] Neelima Velazquez MD Unavailable Maura Wilson MD Unavailable [phone] Reason for Referral * MRI/CAT/PET Scan (Routine) - Closed Specialty Diagnoses / Procedures Referred By Contac t Referred To Contact Radiology Procedures CT Abdomen Pelvis W Contrast Misael Palacios MD [address] [place] [address] Phone: tel: Referral ID Status Reason Start Date Expiration Date Visits Re quested Visits Authorized [id number] Closed 10/30/2024 11/29/2025 1 1 VERY DRIVER ASSISTANT Encounter Details Date Type Department Care Team (Late st Contact Info) Description 10/30/2024 Orders Only [facility] Primary Care at [address] [address] Misael Palacios MD [address] [place] [address] Social History Tobacco Use Types [...] on file Legal Sex Female 4:15 AM DELIVERY DRIVER ASSISTANT Gender Identity Not on file Sexual Orientation Not on file 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 Not on file Not on file documented as of this encounter Plan of Treatment Not on file documented as of this encounter Procedures Procedure Name Priority Date/Time Associated Diagnosis Comments CT ABDOMEN PELVIS W CONTRAST Schedule Routine, Read Routine (OP Routine) 10/28/2024 1:10 PM DELIVERY DRIVER ASSISTANT documented in this encounter Results * CT Abdomen Pelvis W Contrast (10/28/2024 1:10 PM DELIVERY DRIVER ASSISTANT) Anatomical Region Laterality Modality Body N/A Computed Tomogra phy Historical Provider MD [facility] CT PROCEDURES Final R esult documented in this encounter Visit Diagnoses Not on filedocumented in this encounter Care Teams Commissary Superintendent Relationship Specialty Start Date End Date Trenton Lomeli MD PCP - General Family Medicine 10/06/21 Neelima Velazquez MD [address] [address] Consulting Physician Gynecology 10/06/21 Maura Wilson MD [address] [place] [address] Consulting Physician Cardiology 06/16/23 documented as of this encounter
--- OUTSIDE RECORDS SUMMARY | 2024-11-08 11:18 | XMS_ITS | Continuity of Care Document ---
Author Organization [facility] Address [address] [place] [address] [place] [address] Phone Care Team Providers Care Sales Administration Manager Name Role Phone [facility] Unavailable Unavail able Ame Hollis Unavailable Unavailable Procedures Procedure Date Vision Sv Frames Purchases SV Poly Carb Sph [place] To +/- 4 010 Contact Lens Hydrophilic, Spherical Medical Tax Eye Exam & Treatment Refraction Office/outpatient Visit, Est Progressive Lens, Polycarb Frames Deluxe Anti-reflective Coating Anti-reflective Coating Frames Deluxe SV Poly Carb Sph +/- 7.12 To +/- 20 D Oc Tax - Medical Vision Svcs Frames Purchases SV Poly Carb Sph [place] To +/- 4 007 Eye Exam & Treatment Refraction Corneal Pachymetry Fundus Photography W/ Report Advance Directives Directive Yes / No Effective Date File Name No Information Encounters Encounter Description Practice Location Reason(s) For Visit Diagnoses Date Provider Providers Copied on Encounter [facility], [address] [place] [address] [address], [place], [place], [id number], [place] tel:[phone] [facility] No Information 2-201 0 [facility] . [address] [facility], [address], [place], [place], [id number], [place]. tel:[phone] Referring Provider: Deric Downey OD A, [address], [place], [address]. tel:[phone] g Provider: Ame Hollis, [address] [place], [address]. tel:[phone] [facility], [address], [place], [place], [id number], [place] tel:[phone] [facility] No Information 1-201 0 Downey OD Deric. [address] [facility] , [address], [place], [address], [place]. tel:[phone] [facility], [address], [place], [place], [id number], [place] tel:[phone] [facility] No Information 3-201 0 Downey OD Deric. [address] [facility] , [address], [place], [address], [place]. tel:[phone] Office/outpat ient Visit, Est [facility], [address], [place], [place], [id number], [place] tel:[phone] [facility] No Information Dec-2 3-200 9 Doisy Edward. [address] [facility] , [address], [place], [address], [place]. tel:[phone] [facility], [address], [place], [place], [address], [place] tel:[phone] [facility] No Information Dec-2 3-200 9 [facility] . [address] [facility], [address], [place], [place], [address], [place]. tel:[phone] Referring Provider: Juan Pablo Washington, [address], [place], [address]. tel:[phone] marco Provider: Sissy Enriquez, [address] [place], [address]. tel:[phone] [facility], [address], [place], [place], [id number], [place] tel:[phone] [facility] No Information 9-200 7 [facility] . [address] [facility], [address], [place], [id number], [place]. tel:[phone] Consulting Provider: Sissy Enriquez, [address] [place] [address], [address]. tel:[phone] [facility], [address], [place], [place], [address], [place] tel:[phone] [facility] No Information 2-200 7 [facility] . [address] [facility], [address], [place], [place], [id number], [place]. tel:[phone] Referring Provider: Juan Pablo Washington, [address] [facility] [address], [place], [address]. tel:[phone] g Provider: Ame Hollis, [address] [place], [address]. tel:[phone] [facility], [address], [place], [place], [id number], [place] tel:[phone] [facility] No Information 8-200 7 Blaire Almeida. [address] , [address], [place], [address], [place]. tel:[phone] Referring Provider: Juan Pablo Washington, [facility] [facility] [address], [place], [address]. tel:[phone] Family History Family Member Type Diagnosis Age At Onset No Information Payers Payer name Insurance type Covered alliance party ID Authoriza tion(s) No Information Social [...]
--- OUTSIDE RECORDS SUMMARY | 2024-11-08 11:18 | XMS_ITS | Clinical Summary ---
Author Organization [facility] Address [address] [place] [address] Care Team Providers Care Electric Tape Slitter Name Role Phone Trenton Lomeli MD Primary Care Provider [phone] Neelima Velazquez MD Unavailable [phone] Maura Wilson MD Unavailable [phone] Allergies Active Allergy Reactions Criticality Noted [...] 11/09/2022 Assessment & Plan (11/09/2022 4:02 PM MAINTENANCE MANAGER): BMI Follow-up includes: nutrition counseling, exercise counseling and education provided. Body mass index (BMI) 45.0-49.9, adult 3 Well adult exam 10/08/2021 Assessment & Plan (11/10/2022 2:28 PM MAINTENANCE MANAGER): A(n) yearly well adult visit has [...] prn Assessment & Plan (10/08/2021 2:57 PM MAINTENANCE MANAGER): A initial well visit to establish [...] 7 Assessment & Plan (11/06/2024 11:14 AM MAINTENANCE MANAGER): IBS vs infectious (prolonged effect of viral gastoenteritis? 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 Resuming probiotic advised bland diet today, stay hydrated; avoid sugary foods (rice may be okay) we will try to review [place] record, ut from her portal, the CT was unremarkable urged her to pick pulling machine operator her Rx from pharamcy as soon as [...] Department Care Team Description 11/08/2024 5:57 AM MAINTENANCE MANAGER - Present Emergency [address] [address] 11/06/2024 10:30 AM MAINTENANCE MANAGER Telemedicine [facility] Primary Care at [address] [phone] Trenton Lomeli MD Irritable bowel syndrome with diarrhea (Primary Dx) 11/06/2024 Telephone [facility] Primary Care at [address] [phone] Trenton Lomeli MD Medical Question/Miscellaneous 11/03/2024 10:04 PM MAINTENANCE MANAGER - 11/04/2024 12:14 AM MAINTENANCE MANAGER Emergency [facility] Emergency Department [address] [place] [phone] Job James MD Sleep disturbance (Primary Dx); Chronic abdominal pain Discharge Disposition: Discharge to home or self care 11/03/2024 Orders Only [facility] Primary Care at [address] [phone] Trenton Lomeli MD 11/03/2024 Nurse Triage [facility] Primary Care at [address] [phone] Trenton Lomeli MD 11/03/2024 Nurse Triage [facility] Primary Care at [address] [phone] Angela Kumar RN 11/02/2024 3:00 PM MAINTENANCE MANAGER Lab [facility] Outpatient Lab at [address] [phone] 11/02/2024 1:45 PM MAINTENANCE MANAGER Lab [facility] Outpatient Lab at [address] [phone] Hypercholesterolemia (Primary Dx) 11/02/2024 1:41 PM MAINTENANCE MANAGER - 11/02/2024 11:59 PM MAINTENANCE MANAGER Hospital Encounter [address] [address] Diarrhea of presumed infectious origin Discharge Disposition: Discharge to home or self care 11/02/2024 1:15 PM MAINTENANCE MANAGER Office Visit [facility] Primary Care at [address] [phone] Trenton Lomeli MD Diarrhea of presumed infectious origin (Primary Dx) 10/30/2024 Nurse Triage [facility] Primary Care at [address] [phone] Trenton Lomeli MD 10/30/2024 Orders Only [facility] Primary Care at [address] [phone] Provider, MD Misael from Last 3 Months Immunizations Name Administration Dates Next Due Influenza, Unspecified 11/02/2024(Deferr ed: Patient Refused),06/16/2023(Deferred: Patient Refused),06/01/2023(Deferred: Patient Refused),11/01/2022(Deferred: Patient Refused),11/01/2022(Deferred: Patient Refused),08/10/2022(Deferred: Patient Refused),10/06/2021(Deferred: Patient Refused),09/15/2020(Deferred: Patient Refused) Surgical History Surgery Date Site/Laterality Comments WISDOM TOOTH EXTRACTION Oral Surgery Tooth Extraction [place] Tooth - (Added by TW Conv) Medical History Medical History Date Comments Hx Other Medical anxiety, depres aky, palpitations, htn, obesity, d; Comments: MAF 10/02/2016 [...] making you feel afraid or unsafe? Denies 11/08/2024 Education Answer Date Recorded What is the highest level of school you have completed or the highest degree you have received? 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 file Not on file Not on file Obstetrics History Last Filed Vital Signs Vital Sign Reading Time Taken Comments Blood Pressure 114/70 11/08/2024 8:30 AM MAINTENANCE MANAGER Pulse 54 11/08/2024 8:30 AM MAINTENANCE MANAGER Temperature 36.8 ??C (98.3 ??F) 11/08/2024 6:06 AM CS T Respiratory Rate 19 11/08/2024 8:30 AM MAINTENANCE MANAGER Oxygen Saturation 100% 11/08/2024 8:30 AM MAINTENANCE MANAGER Inhaled Oxygen Concentration - - Weight 117.9 kg (260 lb) 11/08/2024 6:06 AM MAINTENANCE MANAGER Height 170.2 cm (5' 7 ) 11/08/2024 6:06 AM MAINTENANCE MANAGER Body Mass Index 40.72 11/08/2024 6:06 AM MAINTENANCE MANAGER Plan of Treatment Health Maintenance Due Date [...] Name Priority Date/Time Associated Diagnosis Comments TROPONIN T HIGH-SENSITIVITY 2-HOUR Timed 11/08/2024 8:01 AM MAINTENANCE MANAGER XR CHEST 1 VIEW ED 11/08/2024 6:18 AM MAINTENANCE MANAGER EGFR STAT 11/08/2024 6:11 AM MAINTENANCE MANAGER DIFFERENTIAL AUTO STAT 11/08/2024 6:1 1 AM MAINTENANCE MANAGER DRUGS OF ABUSE SCREEN, URINE WITHOUT CONFIRMATION STAT 11/08/2024 6:11 AM MAINTENANCE MANAGER ETHANOL STAT 11/08/2024 6:11 AM MAINTENANCE MANAGER TROPONIN T HIGH-SENSITIVITY SERIES (BASELINE, 2HR, 4HR, 6HR) STAT 11/08/2024 6:11 AM MAINTENANCE MANAGER COMPREHENSIVE METABOLIC PANEL STAT 11/08/2024 6:11 AM MAINTENANCE MANAGER CBC WITH AUTO DIFFERENTIAL STAT 11/08/2024 6:11 AM MAINTENANCE MANAGER INFLUENZA A/B, RSV, AND COVID-19 PCR Routine 11/08/2024 6:11 AM MAINTENANCE MANAGER URINALYSIS AND REFLEX TO MICROSCOPIC AND CULTURE STAT 11/08/2024 6:11 AM MAINTENANCE MANAGER POCT HCG, URINE Routine 11/08/2024 6:10 AM MAINTENANCE MANAGER ECG 12-LEAD Routine 11/03/2024 11:[address] HEAD WO CONTRAST ED 11/03/2024 1 0:53 PM MAINTENANCE MANAGER MAGNESIUM Routine 11/03/2024 10:46 PM MAINTENANCE MANAGER THYROID FUNCTION CASCADE Add-On 11/03/2024 10:46 PM MAINTENANCE MANAGER ERYTHROCYTE SEDIMENTATION RATE STAT 11/03/2024 10:46 PM MAINTENANCE MANAGER CREATINE KINASE (CK), TOTAL STAT 11/03/2024 10:46 PM MAINTENANCE MANAGER PRO B-TYPE NATRIURETIC PEPTIDE STAT 11/03/2024 10:46 PM MAINTENANCE MANAGER CRP (ACUTE PHASE) STAT 11/03/2024 10: 46 PM MAINTENANCE MANAGER TROPONIN T HIGH-SENSITIVITY 2-HOUR Timed 11/03/2024 10:46 PM MAINTENANCE MANAGER EGFR STAT 11/03/2024 7:40 PM MAINTENANCE MANAGER DIFFERENTIAL AUTO STAT 11/03/2024 7:4 0 PM MAINTENANCE MANAGER TROPONIN T HIGH-SENSITIVITY SERIES (BASELINE, 2HR, 4HR, 6HR) STAT 11/03/2024 7:40 PM MAINTENANCE MANAGER COMPREHENSIVE METABOLIC PANEL STAT 11/03/2024 7:40 PM MAINTENANCE MANAGER CBC WITH AUTO DIFFERENTIAL STAT 11/03/2024 7:40 PM MAINTENANCE MANAGER XR CHEST 1 VIEW ED 11/03/2024 7:17 PM MAINTENANCE MANAGER ECG 12-LEAD STAT 11/03/2024 6:34 PM MAINTENANCE MANAGER CRYPTOSPORIDIUM AND GIARDIA ANTIGEN ASSAY Routine 11/02/2024 1:41 PM MAINTENANCE MANAGER Diarrhea of presumed infectious origin HEPATITIS A ANTIBODY, IGM Routine 11/02/2024 1:41 PM MAINTENANCE MANAGER Diarrhea of presumed infectious origin CT ABDOMEN PELVIS W CONTRAST Schedule Routine, Read Routine (OP Routine) 10/28/2024 1:10 PM MAINTENANCE MANAGER HM PAP SMEAR Routine 03/19/2021 from Last 3 Months or Most Recently Relevant to Health Maintenance Results * Troponin T high-sensitivity 2-hour (11/08/2024 8:01 AM MAINTENANCE MANAGER) Trop T hs <6 <=14 ng/L Comment: Interpretive Data For further hscTnT resources including the diagnostic algorithm and an aid in interpretation, copy and paste this link: https://nrl.testcatalog.org/show/hsTrop Current Interpretive Data last revised 2020. Trop T hs delta 0 ng/L [facility] Trop T hs interp Insignificant ARI Blood 11/08/2024 8:01 AM MAINTENANCE MANAGER 11/08/2024 8:10 AM MAINTENANCE MANAGER us Jaclyn Xavier MD LAB BLOOD ORDERABLES Fin al Result [facility] [address] [facility] [place] [address] * XR Chest 1 Vw Portable (if patient condition/safety warrant portable) (11/08/2024 6:18 AM MAINTENANCE MANAGER) Anatomical Region Laterality Modality Body, Chest N/A Computed Radiogr aphy 11/08/2024 6:27 AM MAINTENANCE MANAGER Narrative 11/08/2024 6:29 AM MAINTENANCE MANAGER EXAM DESCRIPTION: ?? XR CHEST 1 VIEW REASON FOR STUDY: ?? chest pain ?? BIBEMS from home having chest discomfort for a week, non radiating, pressure like pain and SI without any plan. Was seen 3 days ago at [facility] and cardiac work up done. No [...] D: ??11/08/2024 6:29 AM T: Report ID: [id number] Reading Location: ??[id number] Procedure Note Gillian Stokes MD - 11/08/2024 EXAM DESCRIPTION: XR CHEST 1 VIEW REASON FOR STUDY: chest pain BIBEMS from home having chest discomfort for a week, non radiating,pressure like pain and SI without any plan. Was seen 3 days ago at [facility] and cardiac work up done. No heart [...] Gillian Stokes M.D. SN T: Report ID: [id number] Reading Location: [id number] Jaclyn Xavier MD IMG XR PROCEDURES Final Result * Troponin T high-sensitivity series (baseline, 2hr, 4hr, 6hr) (11/08/2024 6:11 AM MAINTENANCE MANAGER) Trop T hs <6 <=14 ng/L Comment: Interpretive Data For further hscTnT resources including the diagnostic algorithm and an aid in interpretation, copy and paste this link: https://nrl.testcatalog.org/show/hsTrop Current Interpretive Data last revised 2020. Blood 11/08/2024 6:11 AM MAINTENANCE MANAGER 11/08/2024 6:17 AM MAINTENANCE MANAGER Jaclyn Xavier MD LAB BLOOD ORDERABLES Fin al Result [facility] [address] [facility] Department [place] [address] * Influenza A/B, RSV, and COVID-19 PCR Nasopharyngeal (11/08/2024 6:11 AM MAINTENANCE MANAGER) [facility] COVID-19 RNA Negative Negative Influenza A RNA Negative Negative [facility] Influenza B RNA Negative Negative [facility] RSV RNA Negative Negative [facility] Comment: Interpretive data: Testing performed by [facility]. This test is performed using the [employer] Incert Xpress CoV-2/Flu/RSV plus assay. This is a multiplex, real-time reverse transcriptase PCR assay intended for the qualitative detection of nucleic acid from SARS-CoV-2, influenza A, influenza B, and respiratory syncytial virus. This assay has been cleared by the [place] Food and Drug administration. The performance characteristics have been verified by the [facility]. ??Results must be considered in the clinical context, and a negative result does not rule out infection. Interpretive Data last revised 2023 Nasopharyngeal 11/08/2024 6: 11 AM MAINTENANCE MANAGER 11/08/2024 6:14 AM MAINTENANCE MANAGER Narrative [facility] - 11/08/2024 6:54 AM MAINTENANCE MANAGER Is the Patient experiencing symptoms consistent with COVID?->No us Jaclyn Xavier MD LAB MICROBIOLOGY - GENER AL ORDERABLES Final Result [facility] [address] [facility] [place] [address] * eGFR (11/08/2024 6:11 AM MAINTENANCE MANAGER) [facility] eGFR >90 >=60 mL/min/1. 73 m2 Comment: [...] interpretive data was last reviewed 2021. Blood 11/08/2024 6:11 AM MAINTENANCE MANAGER 11/08/2024 6:17 AM MAINTENANCE MANAGER us Jaclyn Xavier MD LAB BLOOD ORDERABLES Fin al Result [facility] [address] [facility] Department of Laboratories [place], [place] [id number] * Differential, auto (11/08/2024 6:11 AM MAINTENANCE MANAGER) Neutrophil abs 4.6 1.5 - 6.5 K/cumm Imm gran abs 0.0 0.0 - 0.1 K/cumm [facility] Lymphocyte abs 2.5 0.8 - 3.3 K/cumm [facility] Monocyte abs 0.7 0.2 - 0.8 K/cumm [facility] Eosinophil abs 0.2 0.0 - 0.5 K/cumm [facility] Basophil abs 0.1 0.0 - 0.1 K/cumm [facility] Neutrophil pct 57.1 % [facility] Comment: Interpretive Data Percent cell count reference ranges are not reported, since discordance with absolute values may lead to misinterpretation of CBC data. Current Interpretive Data was last revised on 2018. Imm gran pct 0.3 % [facility] Comment: Interpretive Data Percent cell count reference ranges are not reported, since discordance with absolute values may lead to misinterpretation of CBC data. Current Interpretive Data was last revised on 2018. Lymphocyte pct 31.0 % [facility] Comment: Interpretive Data Percent cell count reference ranges are not reported, since discordance with absolute values may lead to misinterpretation of CBC data. Current Interpretive Data was last revised on 2018. Monocyte pct 8.5 % [facility] Comment: Interpretive Data Percent cell count reference ranges are not reported, since discordance with absolute values may lead to misinterpretation of CBC data. Current Interpretive Data was last revised on 2018. Eosinophil pct 2.3 % [facility] Comment: Interpretive Data Percent cell count reference ranges are not reported, since discordance with absolute values may lead to misinterpretation of CBC data. Current Interpretive Data was last revised on 2018. Basophil pct 0.8 % [facility] Comment: Interpretive Data Percent cell count reference ranges are not reported, since discordance with absolute values may lead to misinterpretation of CBC data. Current Interpretive Data was last revised on 2018. Blood 11/08/2024 6:11 AM MAINTENANCE MANAGER 11/08/2024 6:15 AM MAINTENANCE MANAGER us Jaclyn Xavier MD LAB BLOOD ORDERABLES Fin al Result [facility] [address] [facility] Department [place] [address] * Urinalysis reflex to microscopic and culture Urine (11/08/2024 6:11 AM MAINTENANCE MANAGER) Color, ur Straw Yellow Clarity, ur Clear Clear [facility] Specific gravity, ur 1.003 1.003 - 1.030 [facility] pH, urine 6.5 [facility] Comment: Interpretive Data ? Urine pH is affected by diet, medications, systemic acid-base disturbances, and renal tubular function. ??pH may affect urinary stone formation. ??For example, urine pH below 6.0 may help reduce the tendency for calcium phosphate stones and pH greater than 6.0 may reduce the tendency for uric acid stone formation. Source: [facility] [employer] Current Interpretive Data was last revised on 2017 Protein, ur ql Negative Negative [facility] Glucose, ur ql Negative Negative [facility] Ketones, ur Negative Negative [facility] Bilirubin, ur Negative Negative [facility] Blood, ur Negative Negative [facility] Urobilinogen, ur <2.0 <2.0 mg/dL [facility] Nitrite, ur Negative Negative [facility] Leukocyte esterase, ur Negative Negative [facility] UA reflex comment Reflex conditions for microscopic UA and culture not met. [facility] Urine 11/08/2024 6:11 AM MAINTENANCE MANAGER 11/08/2024 6:15 AM MAINTENANCE MANAGER Jaclyn Xavier MD LAB MICROBIOLOGY - GENER AL ORDERABLES Final Result Performing Organization Address [facility] de Phone Number ARI [address] [employer] [place], [place] [phone] * CBC with auto differential (11/08/2024 6:11 AM MAINTENANCE MANAGER) WBC 8.0 3.8 - 9.9 K/cumm Hgb 14.1 11.9 - 15.5 g/dL [facility] Hct 43.4 35.6 - 45.5 % [facility] Plt 314 150 - 400 K/cumm [facility] MPV 9.2 9.1 - 12.3 fL [facility] RBC 4.92 3.90 - 5.20 M/cumm [facility] MCV 88.2 81.3 - 96.4 fL [facility] MCH 28.7 27.1 - 33.3 pg [facility] MCHC 32.5 32.3 - 35.7 g/dL [facility] RDW CV 12.6 11.1 - 14.9 % [facility] RDW SD 40.3 35.7 - 48.1 fL [facility] NRBC abs 0.00 0.00 - 0.01 K/cumm [facility] Blood (Blood, Venous) 11/08/2024 6:11 AM MAINTENANCE MANAGER 11/08/2024 6:15 AM MAINTENANCE MANAGER Jaclyn Xavier MD LAB BLOOD ORDERABLES Fin al Result Performing Organization Address [facility] Co de Phone Number ARI [address] [place] [address] * Drugs of Abuse Screen, Urine without Confirmation (11/08/2024 6:11 AM MAINTENANCE MANAGER) [facility] Amphetamine, ur Not Detected CutOff 500ng/mL Comment: Interpretive Data - Amphetamines: ??Samples containing greater than 500 ng/mL d-methamphetamine ??or other cross-reacting amphetamine compounds are reported as positive. ??Amphetamine immunoassays are subject to significant false positive rates due to cross-reactivity of non-amphetamine drugs. Confirmatory testing required for definitive results. Current Interpretive Data was last reviewed 2023. Barbiturates, ur Not Detected CutOff 200ng/mL [facility] Comment: Interpretive Data - Barbiturates: ??Samples containing greater than 200 ng/mL secobarbital or other cross-reacting barbiturate compounds are reported as positive. ??False positive and false negative results are possible. Confirmatory testing required for definitive results. Current Interpretive Data was last reviewed 2023. Benzodiazepines, ur Not Detected CutOff 100ng/mL [facility] Comment: Interpretive Data - Benzodiazepines: ??Samples containing greater than 100 ng/mL nordiazepam or other cross-reacting compounds are reported as positive. False positive and false negative results are possible. Confirmatory testing required for definitive results. Current Interpretive Data was last reviewed 2023. Cannabinoids, ur Not Detected CutOff 50 ng/mL [facility] Comment: Interpretive Data - Cannabinoids: ??Samples containing greater than 50 ng/mL delta-9 THC -COOH or other cross-reacting compounds are reported as positive. ??False positive and false negative results are possible. ??Confirmatory testing required for definitive results. Current Interpretive Data was last reviewed 2023. Cocaine, ur Not Detected CutOff 150ng/mL [facility] Comment: Interpretive Data - Cocaine: ??Samples containing greater than 150 ng/mL benzoylecgonine or other cross-reacting compounds are reported as positive. False positive and false negative results are possible. Confirmatory testing required for definitive results. Current Interpretive Data was last reviewed 2023. Fentanyl, Ur Not Detected CutOff 5 ng/mL [facility] Comment: Interpretive Data - Fentanyl: ?? Samples containing greater than 5 ng/mL norfentanyl, fentanyl, or other cross-reacting fentanyl compounds are reported as positive. False positive and false negative results are possible. Confirmatory testing required for definitive results. Current Interpretive Data was last reviewed 2024. Methadone, ur Not Detected CutOff 300ng/mL [facility] Comment: Interpretive Data - Methadone: ??Samples containing greater than 300 ng/mL d,l-methadone or other cross-reacting compounds are reported as positive. ??False positive and false negative results are possible. Confirmatory testing required for definitive results. Current Interpretive Data was last reviewed 2023. Opiates, ur Not Detected CutOff 300ng/mL [facility] Comment: Interpretive Data - Opiates: ??Samples containing greater than 300 ng/mL morphine or other cross-reacting compounds are reported as positive. ??False positive and false negative results are possible. Confirmatory testing required for definitive results. Current Interpretive Data was last reviewed 2023. Oxycodone, ur Not Detected CutOff 100ng/mL [facility] Comment: Interpretive Data - Oxycodone: ??Samples containing greater than 100 ng/mL oxycodone or other cross-reacting compounds are reported as ??positive. ??False positive and false negative results are possible. Confirmatory testing required for definitive results. Current Interpretive Data was last reviewed 2023. Phencyclidine, ur Not Detected CutOff 25 ng/mL [facility] Comment: Interpretive Data - Phencyclidine: ??Samples containing greater than 25 ng/mL phencyclidine or other cross-reacting compounds are reported as positive. ??False positive and false negative results are possible. Confirmatory testing required for definitive results. Current Interpretive Data was last reviewed 2023. Urine Creatinine 24 mg/dL [facility] Comment: Interpretive Data Urine Creatinine: < 10 mg/dL is extremely dilute = or > 10 but < 20 mg/dL is dilute = or > 20 mg/dL is normal Current Interpretive Data was last revised on 2018. Urine 11/08/2024 6:11 AM MAINTENANCE MANAGER 11/08/2024 6:15 AM MAINTENANCE MANAGER Narrative [facility] - 11/08/2024 6:47 AM MAINTENANCE MANAGER Drug of Abuse screening is performed by immunoassay for medical purposes only. ??This is not to be used for Pain Management purposes. Jaclyn Xavier MD LAB URINE ORDERABLES Fin al Result Performing Organization Address [facility] de Phone Number [address] [address] * Ethanol (11/08/2024 6:11 AM MAINTENANCE MANAGER) Ethanol <10 <=10 mg/dL Comment: Interpretive Data Legal limit of intoxication > or = 80 mg/dL Levels > or = 400 mg/dL are potentially TOXIC. Current interpretive data was last revised on 2018. Blood 11/08/2024 6:11 AM MAINTENANCE MANAGER 11/08/2024 6:17 AM MAINTENANCE MANAGER Jaclyn Xavier MD LAB BLOOD ORDERABLES Fin al Result Performing Organization Address [facility] de Phone Number [address] [address] * Comprehensive metabolic panel (11/08/2024 6:11 AM MAINTENANCE MANAGER) Sodium 140 135 - 145 mmol/L Potassium, pl 3.6 3.3 - 4.9 mmol/L [facility] Chloride 103 97 - 110 mmol/L [facility] CO2 26 22 - 32 mmol/L [facility] Anion gap 11 2 - 15 mmol/L [facility] BUN 8 6 - 25 mg/dL [facility] Creatinine 0.63 0.60 - 1.10 mg/dL [facility] Glucose 113 70 - 199 mg/dL [facility] Comment: Interpretive Data Fasting glucose >/= 126 [...] interpretive data was last revised 2022. Calcium 9.8 8.5 - 10.3 mg/dL [facility] Bilirubin, total 1.0 0.1 - 1.2 mg/dL [facility] Protein, pl 7.7 6.5 - 8.5 g/dL [facility] Albumin 4.6 3.5 - 5.0 g/dL [facility] Alk phos 61 40 - 130 Units/L [facility] ALT 7 7 - 45 Units/L [facility] AST 19 10 - 45 Units/L [facility] Blood 11/08/2024 6:11 AM MAINTENANCE MANAGER 11/08/2024 6:17 AM MAINTENANCE MANAGER Jaclyn Xavier MD LAB BLOOD ORDERABLES Fin al Result [facility] [address] [facility] [place] [address] * POCT hCG, urine (11/08/2024 6:10 AM MAINTENANCE MANAGER) HCG, ur, POC Negative Negative Lot Number [id number] QC Backgroud Clear Acceptable QC Control Line Acceptable Urine 11/08/2024 6:10 AM MAINTENANCE MANAGER Jaclyn Xavier MD POINT OF CARE TEST ORDER KELLEY Final Result * ECG 12 lead (11/03/2024 11:04 PM MAINTENANCE MANAGER) 11/03/2024 11:0 4 PM MAINTENANCE MANAGER Narrative [facility] - 11/04/2024 2:30 PM MAINTENANCE MANAGER Vent Rate: 67 bpm RR Interval: 892 msec ND Interval: 142 msec QRS Duration: 89 msec QT Interval: 413 msec QTC Interval: 428 msec P-R-T [place]: 25 - 0 - 21 degrees IMPRESSION: SINUS RHYTHM MODERATE VOLTAGE CRITERIA FOR LVH, CONSIDER NORMAL VARIANT ??[MEETS CRITERIA IN ONE OF: R(aVL), S(V1), R(V5), R(V5/V6)+S(V1)] BORDERLINE ECG NO CHANGE FROM PREVIOUS TRACING NOTED Electronically Signed By: Nithin Vaca MD Job James MD ECG ORDERABLES Final Resul t [facility] * CT Head WO Contrast (11/03/2024 10:53 PM MAINTENANCE MANAGER) Anatomical Region Laterality Modality Head and Neck N/A Computed Tomogra phy 11/03/2024 10:5 6 PM MAINTENANCE MANAGER Narrative 11/03/2024 10:58 PM MAINTENANCE MANAGER EXAM DESCRIPTION: CT HEAD WO CONTRAST [...] PM T: ??11/03/2024 10:58 PM Report ID: [id number] Reading Location: ??[id number] Procedure Note Mike Kirk MD - 11/03/2024 [...] Mike Kirk M.D. AT: AT Report ID: [id number] Reading Location: [id number] Job James MD IMG CT PROCEDURES Final Res ult * Troponin T high-sensitivity 2-hour (11/03/2024 10:46 PM MAINTENANCE MANAGER) Trop T hs 7 <=14 ng/L Comment: Interpretive Data For further hscTnT resources including the diagnostic algorithm and an aid in interpretation, copy and paste this link: https://nrl.testcatalog.org/show/hsTrop Current Interpretive Data last revised 2020. Trop T hs delta See Comment ng/L CE RNASIA SHAH (JD) Comment:Inappropriate collec tion time to report a delta. Trop T hs pct delta See Comment % CERNER ALYSSA (JD) Comment:Inappropriate collec tion time to report a delta. Trop T hs interp See Comment C ROSITA SHAH (JD) Comment:Inappropriate collec tion time to report a delta. Blood 11/03/2024 10:4 6 PM MAINTENANCE MANAGER 11/03/2024 10:50 PM MAINTENANCE MANAGER Job James MD LAB BLOOD ORDERABLES Final Result [facility]ER [facility] JD) 1 [facility] Department [place] [address] * Pro B-type natriuretic peptide (11/03/2024 10:46 PM MAINTENANCE MANAGER) NT-proBNP 51 <=300 pg/mL Comment: Interpretive Comments: [...] Date: 2018. Blood 11/03/2024 10:4 6 PM MAINTENANCE MANAGER 11/03/2024 10:50 PM MAINTENANCE MANAGER Job James MD LAB BLOOD ORDERABLES Edited Result - Final Performing Organization Address City/[facility]/ZIP Co de Phone Number ARI SHAH (ZEELAND) 1 [facility] [employer] [place] [address] * Thyroid Function [place] (11/03/2024 10:46 PM MAINTENANCE MANAGER) TSH 1.44 0.30 - 4.20 mcIUnit/mL Blood 11/03/2024 10:4 6 PM MAINTENANCE MANAGER 11/03/2024 10:50 PM MAINTENANCE MANAGER Job James MD LAB BLOOD ORDERABLES Final Result Performing Organization Address [facility] Co de Phone Number ARI AM[facility] (JD) 1 [facility] [place] [address] * (ABNORMAL) Erythrocyte sedimentation rate (11/03/2024 10:46 PM MAINTENANCE MANAGER) Erythrocyte sedimentation rate 29(H) 1 - 20 mm/hr Blood 11/03/2024 10:4 6 PM MAINTENANCE MANAGER 11/03/2024 10:50 PM MAINTENANCE MANAGER Job James MD LAB BLOOD ORDERABLES Final Result Performing Organization Address [facility] Co de Phone Number ARI [facility] (JD) 1 [facility] [place] [address] * CRP (acute phase) (11/03/2024 10:46 PM MAINTENANCE MANAGER) CRP <3.0 <=10.0 mg/L Blood 11/03/2024 10:4 6 PM MAINTENANCE MANAGER 11/03/2024 10:50 PM MAINTENANCE MANAGER Job James MD LAB BLOOD ORDERABLES Final Result Performing Organization Address City/[facility]/ZIP Co de Phone Number ARI SHAH (ZEELAND) 1 [facility] [place] [address] * Magnesium (11/03/2024 10:46 PM MAINTENANCE MANAGER) Magnesium 1.8 1.4 - 2.5 mg/dL Blood 11/03/2024 10:4 6 PM MAINTENANCE MANAGER 11/03/2024 10:50 PM MAINTENANCE MANAGER Job James MD LAB BLOOD ORDERABLES Final Result Performing Organization Address [facility] Co de Phone Number ARI SHAH (ZEELAND) 1 [facility] [place] [address] * Creatine kinase (CK), total (11/03/2024 10:46 PM MAINTENANCE MANAGER) CK 69 30 - 200 Units/L Blood 11/03/2024 10:4 6 PM MAINTENANCE MANAGER 11/03/2024 10:50 PM MAINTENANCE MANAGER Job James MD LAB BLOOD ORDERABLES Final Result Performing Organization Address [facility] Co de Phone Number ARI SHAH (ZEELAND) [address] [place] [address] [place] [address] * Troponin T high-sensitivity series (baseline, 2hr, 4hr, 6hr) (11/03/2024 7:40 PM MAINTENANCE MANAGER) Trop T hs <6 <=14 ng/L Comment: Interpretive Data For further hscTnT resources including the diagnostic algorithm and an aid in interpretation, copy and paste this link: https://nrl.testcatalog.org/show/hsTrop Current Interpretive Data last revised 2020. Blood 11/03/2024 7:40 PM MAINTENANCE MANAGER 11/03/2024 7:42 PM MAINTENANCE MANAGER us Job James MD LAB BLOOD ORDERABLES Final Result ARI SHAH (ZEELAND) 1 [facility] [employer] [place] [address] * eGFR (11/03/2024 7:40 PM MAINTENANCE MANAGER) eGFR >90 >=60 mL/min/1. 73 m2 Comment: [...] last reviewed 2021. Blood 11/03/2024 7:40 PM MAINTENANCE MANAGER 11/03/2024 7:42 PM MAINTENANCE MANAGER us Job James MD LAB BLOOD ORDERABLES Final Result ARI SHAH (ZEELAND) 1 [facility] Department [place] [address] * Differential, auto (11/03/2024 7:40 PM MAINTENANCE MANAGER) Neutrophil abs 4.3 1.5 - 6.5 [...] revised on 2018. Blood 11/03/2024 7:40 PM MAINTENANCE MANAGER 11/03/2024 7:42 PM MAINTENANCE MANAGER us Job James MD LAB BLOOD ORDERABLES Final Result ARI SHAH (JD) 1 [facility] [place] [address] * CBC with auto differential (11/03/2024 7:40 PM MAINTENANCE MANAGER) WBC 6.8 3.8 - 9.9 K/cumm [...] 12.3 11.1 - 14.9 % [facility] (DJ) RDW SD 39.8 35.7 - 48.1 fL [facility]ERNER [facility] (JD) NRBC abs 0.00 0.00 - 0.01 K/cumm [facility] (JD) Blood (Blood, Venous) 11/03/2024 7:40 PM MAINTENANCE MANAGER 11/03/2024 7:42 PM MAINTENANCE MANAGER us Job James MD LAB BLOOD ORDERABLES Final Result ARI SHAH (JD) 1 [facility] [place] [address] * (ABNORMAL) Comprehensive metabolic panel (11/03/2024 7:40 PM MAINTENANCE MANAGER) Pathologist [facility] Sodium 139 135 - 145 mmol/L Potassium, [...] [facility]ERNER [facility] (JD) Blood 11/03/2024 7:40 PM MAINTENANCE MANAGER 11/03/2024 7:42 PM MAINTENANCE MANAGER us Job James MD LAB BLOOD ORDERABLES Final Result [facility] (JD) 1 [facility] Department [place] [address] * XR Chest 1 Vw Portable (if patient condition/safety warrant portable) (11/03/2024 7:17 PM MAINTENANCE MANAGER) Anatomical Region Laterality Modality Body, Chest N/A Computed Radiogr aphy 11/03/2024 7:23 PM MAINTENANCE MANAGER Narrative 11/03/2024 7:24 PM MAINTENANCE MANAGER EXAM DESCRIPTION: ?? XR CHEST 1 [...] PM T: ??11/03/2024 7:24 PM Report ID: [id number] Reading Location: ??[id number] Procedure Note Paco Reyes MD - 11/03/2024 [...] Electronically signed by Paco Reyes M.D. RB: RB Report ID: [id number] Reading Location: [id number] Result [facility] Job James MD IMG XR PROCEDURES Final Res ult * ECG 12 lead (11/03/2024 6:34 PM MAINTENANCE MANAGER) 11/03/2024 6:34 PM MAINTENANCE MANAGER Narrative [facility] - 11/04/2024 2:30 PM MAINTENANCE MANAGER Vent Rate: 89 bpm RR Interval: 668 msec ND Interval: 116 msec QRS Duration: 88 msec QT Interval: 356 msec QTC Interval: 403 msec P-R-T [place]: 19 - 18 - 2 degrees IMPRESSION: SINUS RHYTHM WITH SHORT ND INTERVAL LOW QRS VOLTAGE IN PRECORDIAL LEADS ??[QRS DEFLECTION < 1.0 mV IN CHEST LEADS] POSSIBLE ANTERIOR MYOCARDIAL INFARCTION , OF INDETERMINATE AGE [30 ms Q WAVE IN V3/V4, OR R < 0.2 mV IN V4] ABNORMAL ECG Compared to prior EKG, heart rate has increased Electronically Signed By: Nithin Vaca MD Result [facility] Job James MD ECG ORDERABLES Final Resul t [facility] * Hepatitis A antibody, IgM Blood (11/02/2024 1:41 PM MAINTENANCE MANAGER) Hep A IgM Nonreactive Nonreactive Comment: Interpretive Data: If Hep A IgM Ab is reported as Equivocal, a new sample should be drawn in two weeks for testing. Current interpretive data was last revised on 20. Blood 11/02/2024 1:41 PM MAINTENANCE MANAGER 11/02/2024 8:17 PM MAINTENANCE MANAGER Trenton Lomeli MD LAB MICROBIOLOGY - GENERAL ORDERABLES Final Result Performing Organization Address [facility] Co de Phone Number ARI [address] [address] [employer] [place] [address] * Cryptosporidium and Giardia antigen assay Stool (11/02/2024 1:41 PM MAINTENANCE MANAGER) Giardia Ag Negative Negative Comment:Testing performed by : [facility], [address] [place]., [address] Cryptosporidium Ag Negative Negative ARI Comment: Interpretive data: Testing performed by the [facility] Laboratory using an immunoassay that detects Cryptosporidium and Giardia antigens in stool specimens. ??If comprehensive examination for ova and parasites is required, please request Ova and Parasite Examination . Testing performed by: [facility], [address] [place] [address]., [id number] Stool 11/02/2024 1:41 PM MAINTENANCE MANAGER 11/02/2024 10:22 PM MAINTENANCE MANAGER Trenton Lomeli MD LAB MICROBIOLOGY - GENERAL ORDERABLES Final Result Performing Organization Address [facility] Co de Phone Number ARI [address] [address] [place] [employer] [place] [address] * CT Abdomen Pelvis W Contrast (10/28/2024 1:10 PM MAINTENANCE MANAGER) Anatomical Region Laterality Modality Body N/A Computed Tomogra phy Historical Provider IMG CT PROCEDURES Final R esult * HM PAP SMEAR (03/19/2021) Historical Provider HEALTH MAINTENANCE Final Result from Last 3 Months or Most Recently Relevant to Health Maintenance [place] Care Teams Electric Tape Slitter Relationship Specialty Start Date End Date Trenton Lomeli MD PCP - General Family Medicine 10/06/21 Neelima Velazquez MD [address] [place] [address] Consulting Physician Gynecology 10/06/21 Maura Wilson MD [address] [place] [address] Consulting Physician Cardiology 06/16/23
--- OUTSIDE RECORDS SUMMARY | 2024-11-08 11:18 | XMS_ITS | Encounter Summary ---
Author Organization [facility] Healthcare Address [address] [place] [address] Care Team Providers Care Lsat Instructor Name Role Phone Trenton Lomeli MD Primary Care Provider [phone] Neelima Velazquez MD Unavailable Maura Wilson MD Unavailable [phone] Reason for Visit * Reason Onset Date Comments Abdominal Pain 10/30/2024 Encounter Details Date Type Department Care Team (Late st Contact Info) Description 10/30/2024 Nurse Triage [facility] Primary Care at [address] [address] Trenton Lomeli MD [address] [place] [address] [address] [place] [address] Social History Tobacco Use Types [...] on file Legal 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 No answer let VM to call back, ESSOR OF PSYCHOLOGY * Telephone Encounter - Itzel Harding RN - 10/30/2024 2:38 PM CST Reason for Disposition Message left on unidentified voice mail. Phone number verified. Protocols used: No Contact or Duplicate Contact Sgye-Foxds-RU Attempted to reach patient calling with 3 week history of abdominal pain. Message left for patient to call office at earliest convenience. Call with be closed by dry cleaning checker. FYI- patient calling with abdominal pain for 3 weeks and 10 pound weight loss. Unable to reach. Patient wanting to be seen in the office. ESSOR OF PSYCHOLOGY * Telephone Encounter - Itzel Harding RN - 10/30/2024 2:12 PM CST Regarding: Abdominal Pain, mild ----- Message from Tram Joseph sent at 10/30/2024 10:20 AM PROFESSOR OF PSYCHOLOGY ----- Symptom Based Call Chief Complaint(s): Abdominal [...] pounds past 3 weeks. Patient was seen [facility] emergency room on 10/26/24 and 10/28/24 and [...] message need to be routed? Yes-Action Needed ESSOR OF PSYCHOLOGY documented in this encounter Plan of Treatment Not on file documented as of this encounter Visit Diagnoses Not on filedocumented in this encounter Care Teams Lsat Instructor Relationship Specialty Start Date End Date Trenton Lomeli MD PCP - General Family Medicine 10/06/21 Neelima Velazquez MD [address] [facility] [address] [place] [address] Consulting Physician Gynecology 10/06/21 Maura Wilson MD [address] [place] [address] Consulting Physician Cardiology 06/16/23 documented as of this encounter
--- OUTSIDE RECORDS SUMMARY | 2024-11-08 11:18 | XMS_ITS | Encounter Summary ---
Author Organization [facility] Healthcare Address [address] [place] [address] Care Team Providers Care General Operations Agent Name Role Phone Trenton Lomeli MD Primary Care Provider [phone] Neelima Velazquez MD Unavailable [phone] Maura Wilson MD Unavailable [phone] Reason for Referral * Diagnostic Imaging (Routine) - Closed Specialty Diagnoses / Procedures Referred By Judi mars Referred To Contact Diagnoses Class 3 severe obesity due to excess calories without serious comorbidity with body mass index (BMI) of 45.0 to 49.9 in adult (HCC) RUQ discomfort Procedures Trenton Yepez MD [address] [facility] [address] [place] [address] Phone: tel: fax: External Order Referral ID Status Reason Start Date Expiration Date Visits Re quested Visits Authorized [id number] Closed 06/16/2023 07/15/2024 1 1 Reason for Visit * Diagnostic Imaging (Routine) - Closed Specialty Diagnoses / Procedures Referred By Judi mars Referred To Contact Diagnoses Class 3 severe obesity due to excess calories without serious comorbidity with body mass index (BMI) of 45.0 to 49.9 in adult (HCC) RUQ discomfort Procedures Trenton Yepez MD [address] [facility] [address] [place] [address] Phone: tel: fax: External Order Referral ID Status Reason Start Date Expiration Date Visits Re quested Visits Authorized [id number] Closed 06/16/2023 07/15/2024 1 1 Encounter Details Date Type Department Care Team (Latest Contact Info) Description 08/06/2023 12:40 PM CDT - 08/06/2023 11:59 PM CDT Hospital Encounter [address] [address] Class 3 severe obesity due to excess [...] file Legal Sex 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 No positive sonographic [place] sign reported. ?? BILIARY: ?? There is [...] D: ??08/06/2023 9:03 PM T: Report ID: [id number] Reading Location: ??[id number] Procedure Note Rosalva Patino MD - 08/06/2023 [...] wall thickening or pericholecystic fluid. No positivesonographic [place] sign reported. BILIARY: There is no intrahepatic [...] Rosalva Patino M.D. QX T: Report ID: [id number] Reading Location: [id number] us Trenton Lomeli MD IMG US PROCEDURES Final Res ult documented in this encounter Visit Diagnoses Diagnosis Class 3 severe obesity due to excess calories without serious comorbidity with body mass index (BMI) of 45.0 to 49.9 in adult (HCC) RUQ discomfort documented in this encounter Care Teams General Operations Agent Relationship Specialty Start Date End Date Trenton Lomeli MD PCP - General Family Medicine 10/06/21 Neelima Velazquez MD [address] [address] Consulting Physician Gynecology 10/06/21 Maura Wilson MD [address] [place] [address] Consulting Physician Cardiology 06/16/23 documented as of this encounter
--- OUTSIDE RECORDS SUMMARY | 2024-11-08 11:18 | XMS_ITS | Encounter Summary ---
Author Organization [facility] Healthcare Address [address] [place] [address] Care Team Providers Care Construction Person Name Role Phone Trenton Lomeli MD Primary Care Provider [phone] Neelima Velazquez MD Unavailable [phone] Reason for Referral * Cardiology (Routine) - Closed Specialty Diagnoses / Procedures Referred By Contac t Referred To Contact Diagnoses POTS (postural orthostatic tachycardia syndrome) Procedures Transthoracic Echo (TTE) Complete W Doppler/CF Maura Wilson MD Phone: tel: fax: [facility] (All Locations) Referral ID Status Reason Start Date Expiration Date Visits Re quested Visits Authorized [id number] Closed 02/19/2023 03/20/2024 1 1 Reason for Visit * Cardiology (Routine) - Closed Specialty Diagnoses / Procedures Referred By Contac t Referred To Contact Diagnoses POTS (postural orthostatic tachycardia syndrome) Procedures Transthoracic Echo (TTE) Complete W Doppler/CF Maura Wilson MD Phone: tel: fax: [facility] (All Locations) Referral ID Status Reason Start Date Expiration Date Visits Re quested Visits Authorized [id number] Closed 02/19/2023 03/20/2024 1 1 Encounter Details Date Type Department Care Team (Latest Contact Info) Description 05/12/2023 3:20 PM CDT - 05/12/2023 11:59 PM CDT Hospital Encounter [facility] Cardiac Diagnostic Lab [address] [facility] 8th [place] [address] Maura Wilson MD [address] [facility] [address] [place] [address] POTS (postural orthostatic tachycardia syndrome) Discharge Disposition: [...] on file Legal Sex Female 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 Gender Identity Not on file Sexual Orientation Not on file 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 Not on file Not [...] test: 05/12/2023 Type of test: TTE w/Doppler [facility] #: 0 Date of : 1990 (F) [employer]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 Farmer: Pia Masters RDCS Referring Physician: MAURA WILSON MD Contrast Agent: Patient Refused Contrast Contrast Administered by: Supervised/Interpreted by: Celeste Meade MD Diagnosis: Location: [facility] Reason for test: POTS MV Structure: [...] 2=Hypo 3=Akinetic 4=Dyskin./Aneurysm 0=Not visualized) Parasternal Long Geff:MAS=1 BAS=1 MIL=1 ANAI=1 Parasternal Short Geff:MAS=1 MIS=1 WY=1 MIL=1 MAL=1 MA=1 Apical 4 Chambers:=1 MIS=1 BIS=1 BAL=1 MAL=1 AL=1 AC=1 Apical 2 Chambers:AI=1 WY=1 BI=1 BA=1 MA=1 AA=1 AC=1 LV Global [...] MD By signing this report, the attending sec reporting consultant certifies that he or she has personally supervised and interpreted the echocardiogram and has reviewed and or edited and agrees with the written comments contained within the report. Procedure Note De Celeste Jarquin MD - 05/13/2023 Patient name: Alia Fabian Date of test: 05/12/2023 Type of test: TTE w/Doppler [facility] #: 0 Date of : 1990 (F) 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 Farmer: Pia Masters RDCS Referring Physician: MAURA WILSON MD Contrast Agent: Patient Refused Contrast Contrast Administered by: Supervised/Interpreted by: Celeste Meade MD Diagnosis: Location: [facility] Reason for test: POTS MV Structure: [...] 2=Hypo 3=Akinetic 4=Dyskin./Aneurysm 0=Not visualized) Parasternal Long Geff:MAS=1 BAS=1 MIL=1 ANAI=1 Parasternal Short Geff:MAS=1 MIS=1 WY=1 MIL=1 MAL=1 MA=1 Apical 4 Chambers:=1 MIS=1 BIS=1 BAL=1 MAL=1 AL=1 AC=1 Apical 2 Chambers:AI=1 WY=1 BI=1 BA=1 MA=1 AA=1 AC=1 LV Global [...] MD By signing this report, the attending sec reporting consultant certifies that he or she has personally supervised and interpreted the echocardiogram and has reviewed and or edited and agrees with the written comments contained within the report. Maura Wilson MD CV ECHO PROCEDURES Final Resul t documented in this encounter Visit Diagnoses Diagnosis POTS (postural orthostatic tachycardia syndrome) Unspecified tachycardia documented in this encounter Care Teams Construction Person Relationship Specialty Start Date End Date Trenton Lomeli MD PCP - General Family Medicine 10/06/21 Neelima Velazquez MD [address] [address] Consulting Physician Gynecology 10/06/21 documented as of this encounter
--- OUTSIDE RECORDS SUMMARY | 2024-11-08 11:18 | XMS_ITS | Referral Summary ---
Author Organization [facility] Address [address] [place] [address] Care Team Providers Care Surfacer Name Role Phone Trenton Lomeli MD Primary Care Provider [phone] Neelima Velazquez MD Unavailable [phone] Maura Wilson MD Unavailable Encounters Date Type Department Care Team Description 11/08/2024 5:57 AM CONE BAKER MACHINE - Present Emergency [address] [address] 11/06/2024 Telephone [facility] Medical [facility] Primary Care at [address] [phone] Trenton Lomeli MD Medical Question/Miscellaneous 11/06/2024 10:30 AM [facility]E BAKER MACHINE Telemedicine [facility] Medical [facility] Primary Care at [address] [phone] Trenton Lomeli MD Irritable bowel syndrome with diarrhea (Primary Dx) 11/03/2024 10:04 PM [facility]E BAKER MACHINE - 11/04/2024 12:14 AM [facility]E [facility]AKER MACHINE Emergency [facility] Emergency Department [address] [place] [address] Job James MD Sleep disturbance (Primary Dx); Chronic abdominal pain Discharge Disposition: Discharge to home or self care 11/03/2024 Orders Only [facility] Primary Care at [address] [phone] Trenton Lomeli MD 11/03/2024 Nurse Triage [facility] Primary Care at [address] [phone] Trenton Lomeli MD 11/03/2024 Nurse Triage [facility] Primary Care at [address] [phone] Angela Kumar RN 11/02/2024 1:41 PM [facility] MACHINE - 11/02/2024 11:59 PM [facility]ACHINE Hospital Encounter [address] [address] Diarrhea of presumed infectious origin Discharge Disposition: Discharge to home or self care 11/02/2024 3:00 PM [facility]E [facility]ER MACHINE Lab [facility] Outpatient Lab at [address] [phone] 11/02/2024 1:45 PM [facility]E [facility]AKER MACHINE Lab [facility] Outpatient Lab at [address] [phone] Hypercholesterolemia (Primary Dx) 11/02/2024 1:15 PM [facility]E [facility]AKER MACHINE Office Visit [facility] Primary Care at [address] [phone] Trenton Lomeli MD Diarrhea of presumed infectious origin (Primary Dx) 10/30/2024 Nurse Triage [facility] Primary Care at [address] [phone] Trenton Lomeli MD 10/30/2024 Orders Only [facility] Primary Care at [address] [phone] ProviderMisael MD from Last 3 Months Allergies [...] 11/09/2022 Assessment & Plan (11/09/2022 4:02 PM CONE BAKER MACHINE): BMI Follow-up includes: nutrition counseling, exercise counseling and education provided. Body mass index (BMI) 45.0-49.9, adult 3 Well adult exam 10/08/2021 Assessment & Plan (11/10/2022 2:28 PM CONE BAKER MACHINE): A(n) yearly well adult visit has been [...] prn Assessment & Plan (10/08/2021 2:57 PM CONE BAKER MACHINE): A initial well visit to establish care [...] 7 Assessment & Plan (11/06/2024 11:14 AM CONE BAKER MACHINE): IBS vs infectious (prolonged effect of viral gastoenteritis? 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 Not on file Not on file Not on file Last Filed Vital Signs Vital Sign Reading Time Taken Comments Blood Pressure 114/70 11/08/2024 8:30 AM CONE BAKER MACHINE Pulse 54 11/08/2024 8:30 AM [facility]E [facility]AKER MACHINE Temperature 36.8 ??C (98.3 ??F) 11/08/2024 6:06 AM CS T Respiratory Rate 19 11/08/2024 8:30 AM CONE BAKER MACHINE Oxygen Saturation 100% 11/08/2024 8:30 AM CONE BAKER MACHINE Inhaled Oxygen Concentration - - Weight 117.9 kg (260 lb) 11/08/2024 6:06 AM CONE BAKER MACHINE Height 170.2 cm (5' 7 ) 11/08/2024 6:06 AM CONE BAKER MACHINE Body Mass Index 40.72 11/08/2024 6:06 AM CONE BAKER MACHINE Plan of Treatment Not on file Procedures * The patient is currently admitted. The information in this section might not be complete until the patient is discharged. Procedure Name Priority Date/Time Associated Diagnosis Comments TROPONIN T HIGH-SENSITIVITY 2-HOUR Timed 11/08/2024 8:01 AM CONE BAKER MACHINE XR CHEST 1 VIEW ED 11/08/2024 6:18 AM CONE BAKER MACHINE EGFR STAT 11/08/2024 6:11 AM CONE BAKER MACHINE DIFFERENTIAL AUTO STAT 11/08/2024 6:1 1 AM CONE BAKER MACHINE DRUGS OF ABUSE SCREEN, URINE WITHOUT CONFIRMATION STAT 11/08/2024 6:11 AM CONE BAKER MACHINE ETHANOL STAT 11/08/2024 6:11 AM CONE BAKER MACHINE TROPONIN T HIGH-SENSITIVITY SERIES (BASELINE, 2HR, 4HR, 6HR) STAT 11/08/2024 6:11 AM CONE BAKER MACHINE COMPREHENSIVE METABOLIC PANEL STAT 11/08/2024 6:11 AM CONE BAKER MACHINE CBC WITH AUTO DIFFERENTIAL STAT 11/08/2024 6:11 AM CONE BAKER MACHINE INFLUENZA A/B, RSV, AND COVID-19 PCR Routine 11/08/2024 6:11 AM CONE BAKER MACHINE URINALYSIS AND REFLEX TO MICROSCOPIC AND CULTURE STAT 11/08/2024 6:11 AM CONE BAKER MACHINE POCT HCG, URINE Routine 11/08/2024 6:10 AM CONE BAKER MACHINE ECG 12-LEAD Routine 11/03/2024 11:[address] HEAD WO CONTRAST ED 11/03/2024 1 0:53 PM CONE BAKER MACHINE MAGNESIUM Routine 11/03/2024 10:46 PM CONE BAKER MACHINE THYROID FUNCTION CASCADE Add-On 11/03/2024 10:46 PM CONE BAKER MACHINE ERYTHROCYTE SEDIMENTATION RATE STAT 11/03/2024 10:46 PM CONE BAKER MACHINE CREATINE KINASE (CK), TOTAL STAT 11/03/2024 10:46 PM CONE BAKER MACHINE PRO B-TYPE NATRIURETIC PEPTIDE STAT 11/03/2024 10:46 PM CONE BAKER MACHINE CRP (ACUTE PHASE) STAT 11/03/2024 10: 46 PM CONE BAKER MACHINE TROPONIN T HIGH-SENSITIVITY 2-HOUR Timed 11/03/2024 10:46 PM CONE BAKER MACHINE EGFR STAT 11/03/2024 7:40 PM CONE BAKER MACHINE DIFFERENTIAL AUTO STAT 11/03/2024 7:4 0 PM CONE BAKER MACHINE TROPONIN T HIGH-SENSITIVITY SERIES (BASELINE, 2HR, 4HR, 6HR) STAT 11/03/2024 7:40 PM CONE BAKER MACHINE COMPREHENSIVE METABOLIC PANEL STAT 11/03/2024 7:40 PM CONE BAKER MACHINE CBC WITH AUTO DIFFERENTIAL STAT 11/03/2024 7:40 PM CONE BAKER MACHINE XR CHEST 1 VIEW ED 11/03/2024 7:17 PM CONE BAKER MACHINE ECG 12-LEAD STAT 11/03/2024 6:34 PM CONE BAKER MACHINE CRYPTOSPORIDIUM AND GIARDIA ANTIGEN ASSAY Routine 11/02/2024 1:41 PM CONE BAKER MACHINE Diarrhea of presumed infectious origin HEPATITIS A ANTIBODY, IGM Routine 11/02/2024 1:41 PM CONE BAKER MACHINE Diarrhea of presumed infectious origin CT ABDOMEN PELVIS W CONTRAST Schedule Routine, Read Routine (OP Routine) 10/28/2024 1:10 PM CONE BAKER MACHINE HM PAP SMEAR Routine 03/19/2021 from Last 3 Months or Most Recently Relevant to Health Maintenance Results * Troponin T high-sensitivity 2-hour (11/08/2024 8:01 AM CONE BAKER MACHINE) Trop T hs <6 <=14 ng/L Comment: Interpretive Data For further hscTnT resources including the diagnostic algorithm and an aid in interpretation, copy and paste this link: https://nrl.testcatalog.org/show/hsTrop Current Interpretive Data last revised 2020. Trop T hs delta 0 ng/L [facility] Trop T hs interp Insignificant [facility] Blood 11/08/2024 8:01 AM CONE BAKER MACHINE 11/08/2024 8:10 AM CONE BAKER MACHINE us Jaclyn Xavier MD LAB BLOOD ORDERABLES Fin al Result [facility] [address] [facility] Department [place] [address] * XR Chest 1 Vw Portable (if patient condition/safety warrant portable) (11/08/2024 6:18 AM CONE BAKER MACHINE) Anatomical Region Laterality Modality Body, Chest N/A Computed Radiogr aphy 11/08/2024 6:27 AM CONE BAKER MACHINE Narrative 11/08/2024 6:29 AM CONE BAKER MACHINE EXAM DESCRIPTION: ?? XR CHEST 1 VIEW REASON FOR STUDY: ?? chest pain ?? BIBEMS from home having chest discomfort for a week, non radiating, pressure like pain and SI without any plan. Was seen 3 days ago at [facility] and cardiac work up done. No [...] D: ??11/08/2024 6:29 AM T: Report ID: [id number] Reading Location: ??[id number] Procedure Note Gillian Stokes MD - 11/08/2024 EXAM DESCRIPTION: XR CHEST 1 VIEW REASON FOR STUDY: chest pain BIBEMS from home having chest discomfort for a week, non radiating,pressure like pain and SI without any plan. Was seen 3 days ago at [facility] and cardiac work up done. No [...] Gillian Stokes M.D. SN T: Report ID: [id number] Reading Location: [place] [address] Jaclyn Xavier MD IMG XR PROCEDURES Final Result * Troponin T high-sensitivity series (baseline, 2hr, 4hr, 6hr) (11/08/2024 6:11 AM CONE BAKER MACHINE) Pathologist [facility] Trop T hs <6 <=14 ng/L Comment: Interpretive Data For further hscTnT resources including the diagnostic algorithm and an aid in interpretation, copy and paste this link: https://nrl.testcatalog.org/show/hsTrop Current Interpretive Data last revised 2020. Blood 11/08/2024 6:11 AM CONE BAKER MACHINE 11/08/2024 6:17 AM CONE BAKER MACHINE Jaclyn Xavier MD LAB BLOOD ORDERABLES Fin al Result [facility] [address] [facility] Department [place] [address] * Influenza A/B, RSV, and COVID-19 PCR Nasopharyngeal (11/08/2024 6:11 AM CONE BAKER MACHINE) [facility] COVID-19 RNA Negative Negative Influenza A RNA Negative Negative [facility] Influenza B RNA Negative Negative [facility] RSV RNA Negative Negative [facility] Comment: Interpretive data: Testing performed by [facility]. This test is performed using the [employer] Xpert Xpress CoV-2/Flu/RSV plus assay. This is a multiplex, real-time reverse transcriptase PCR assay intended for the qualitative detection of nucleic acid from SARS-CoV-2, influenza A, influenza B, and respiratory syncytial virus. This assay has been cleared by the [place] Food and Drug administration. The performance characteristics have been verified by the [facility]. ??Results must be considered in the clinical context, and a negative result does not rule out infection. Interpretive Data last revised 2023 Nasopharyngeal 11/08/2024 6: 11 AM CONE BAKER MACHINE 11/08/2024 6:14 AM CONE BAKER MACHINE Narrative ARI - 11/08/2024 6:54 AM CONE BAKER MACHINE Is the Patient experiencing symptoms consistent with COVID?->No us Jaclyn Xavier MD LAB MICROBIOLOGY - GENER AL ORDERABLES Final Result [facility] [address] [facility] Department [place] [address] * eGFR (11/08/2024 6:11 AM CONE BAKER MACHINE) eGFR >90 >=60 mL/min/1. 73 m2 Comment: [...] last reviewed 2021. Blood 11/08/2024 6:11 AM CONE BAKER MACHINE 11/08/2024 6:17 AM CONE BAKER MACHINE Jaclyn Xavier MD LAB BLOOD ORDERABLES Fin al Result [facility] [address] [facility] Department [place] [address] * Differential, auto (11/08/2024 6:11 AM CONE BAKER MACHINE) Neutrophil abs 4.6 1.5 - 6.5 K/cumm Imm gran abs 0.0 0.0 - 0.1 K/cumm [facility] Lymphocyte abs 2.5 0.8 - 3.3 K/cumm [facility] Monocyte abs 0.7 0.2 - 0.8 K/cumm [facility] Eosinophil abs 0.2 0.0 - 0.5 K/cumm [facility] Basophil abs 0.1 0.0 - 0.1 K/cumm [facility] Neutrophil pct 57.1 % [facility] Comment: Interpretive Data Percent cell count reference ranges are not reported, since discordance with absolute values may lead to misinterpretation of CBC data. Current Interpretive Data was last revised on 2018. Imm gran pct 0.3 % [facility] Comment: Interpretive Data Percent cell count reference ranges are not reported, since discordance with absolute values may lead to misinterpretation of CBC data. Current Interpretive Data was last revised on 2018. Lymphocyte pct 31.0 % [facility] Comment: Interpretive Data Percent cell count reference ranges are not reported, since discordance with absolute values may lead to misinterpretation of CBC data. Current Interpretive Data was last revised on 2018. Monocyte pct 8.5 % [facility] Comment: Interpretive Data Percent cell count reference ranges are not reported, since discordance with absolute values may lead to misinterpretation of CBC data. Current Interpretive Data was last revised on 2018. Eosinophil pct 2.3 % [facility] Comment: Interpretive Data Percent cell count reference ranges are not reported, since discordance with absolute values may lead to misinterpretation of CBC data. Current Interpretive Data was last revised on 2018. Basophil pct 0.8 % [facility] Comment: Interpretive Data Percent cell count reference ranges are not reported, since discordance with absolute values may lead to misinterpretation of CBC data. Current Interpretive Data was last revised on 2018. Blood 11/08/2024 6:11 AM CONE BAKER MACHINE 11/08/2024 6:15 AM CONE BAKER MACHINE us Jaclyn Xavier MD LAB BLOOD ORDERABLES Fin al Result [facility] [address] [facility] Department [place] [address] * Urinalysis reflex to microscopic and culture Urine (11/08/2024 6:11 AM CONE BAKER MACHINE) Color, ur Straw Yellow Clarity, ur Clear Clear [facility] Specific gravity, ur 1.003 1.003 - 1.030 [facility] pH, urine 6.5 [facility] Comment: Interpretive Data ? Urine pH is affected by diet, medications, systemic acid-base disturbances, and renal tubular function. ??pH may affect urinary stone formation. ??For example, urine pH below 6.0 may help reduce the tendency for calcium phosphate stones and pH greater than 6.0 may reduce the tendency for uric acid stone formation. Source: [facility] Current Interpretive Data was last revised on 2017 Protein, ur ql Negative Negative [facility] Glucose, ur ql Negative Negative [facility] Ketones, ur Negative Negative [facility] Bilirubin, ur Negative Negative [facility] Blood, ur Negative Negative [facility] Urobilinogen, ur <2.0 <2.0 mg/dL [facility] Nitrite, ur Negative Negative [facility] Leukocyte esterase, ur Negative Negative [facility] UA reflex comment Reflex conditions for microscopic UA and culture not met. [facility] Urine 11/08/2024 6:11 AM CONE BAKER MACHINE 11/08/2024 6:15 AM CONE BAKER MACHINE Jaclyn Xavier MD LAB MICROBIOLOGY - GENER AL ORDERABLES Final Result Performing Organization Address [facility] Co de Phone Number ARI [address] [address] * CBC with auto differential (11/08/2024 6:11 AM CONE BAKER MACHINE) [facility] WBC 8.0 3.8 - 9.9 K/cumm Hgb 14.1 11.9 - 15.5 g/dL [facility] Hct 43.4 35.6 - 45.5 % [facility] Plt 314 150 - 400 K/cumm [facility] MPV 9.2 9.1 - 12.3 fL [facility] RBC 4.92 3.90 - 5.20 M/cumm [facility] MCV 88.2 81.3 - 96.4 fL [facility] MCH 28.7 27.1 - 33.3 pg [facility] MCHC 32.5 32.3 - 35.7 g/dL [facility] RDW CV 12.6 11.1 - 14.9 % [facility] RDW SD 40.3 35.7 - 48.1 fL [facility] NRBC abs 0.00 0.00 - 0.01 K/cumm [facility] Blood (Blood, Venous) 11/08/2024 6:11 AM CONE BAKER MACHINE 11/08/2024 6:15 AM CONE BAKER MACHINE Jaclyn Xavier MD LAB BLOOD ORDERABLES Fin al Result Performing Organization Address [facility] Co de Phone Number ARI [facility] [place] [address] * Drugs of Abuse Screen, Urine without Confirmation (11/08/2024 6:11 AM CONE BAKER MACHINE) [facility] Amphetamine, ur Not Detected CutOff 500ng/mL Comment: Interpretive Data - Amphetamines: ??Samples containing greater than 500 ng/mL d-methamphetamine ??or other cross-reacting amphetamine compounds are reported as positive. ??Amphetamine immunoassays are subject to significant false positive rates due to cross-reactivity of non-amphetamine drugs. Confirmatory testing required for definitive results. Current Interpretive Data was last reviewed 2023. Barbiturates, ur Not Detected CutOff 200ng/mL [facility] Comment: Interpretive Data - Barbiturates: ??Samples containing greater than 200 ng/mL secobarbital or other cross-reacting barbiturate compounds are reported as positive. ??False positive and false negative results are possible. Confirmatory testing required for definitive results. Current Interpretive Data was last reviewed 2023. Benzodiazepines, ur Not Detected CutOff 100ng/mL [facility] Comment: Interpretive Data - Benzodiazepines: ??Samples containing greater than 100 ng/mL nordiazepam or other cross-reacting compounds are reported as positive. False positive and false negative results are possible. Confirmatory testing required for definitive results. Current Interpretive Data was last reviewed 2023. Cannabinoids, ur Not Detected CutOff 50 ng/mL [facility] Comment: Interpretive Data - Cannabinoids: ??Samples containing greater than 50 ng/mL delta-9 THC -COOH or other cross-reacting compounds are reported as positive. ??False positive and false negative results are possible. ??Confirmatory testing required for definitive results. Current Interpretive Data was last reviewed 2023. Cocaine, ur Not Detected CutOff 150ng/mL [facility] Comment: Interpretive Data - Cocaine: ??Samples containing greater than 150 ng/mL benzoylecgonine or other cross-reacting compounds are reported as positive. False positive and false negative results are possible. Confirmatory testing required for definitive results. Current Interpretive Data was last reviewed 2023. Fentanyl, Ur Not Detected CutOff 5 ng/mL [facility] Comment: Interpretive Data - Fentanyl: ?? Samples containing greater than 5 ng/mL norfentanyl, fentanyl, or other cross-reacting fentanyl compounds are reported as positive. False positive and false negative results are possible. Confirmatory testing required for definitive results. Current Interpretive Data was last reviewed 2024. Methadone, ur Not Detected CutOff 300ng/mL [facility] Comment: Interpretive Data - Methadone: ??Samples containing greater than 300 ng/mL d,l-methadone or other cross-reacting compounds are reported as positive. ??False positive and false negative results are possible. Confirmatory testing required for definitive results. Current Interpretive Data was last reviewed 2023. Opiates, ur Not Detected CutOff 300ng/mL [facility] Comment: Interpretive Data - Opiates: ??Samples containing greater than 300 ng/mL morphine or other cross-reacting compounds are reported as positive. ??False positive and false negative results are possible. Confirmatory testing required for definitive results. Current Interpretive Data was last reviewed 2023. Oxycodone, ur Not Detected CutOff 100ng/mL [facility] Comment: Interpretive Data - Oxycodone: ??Samples containing greater than 100 ng/mL oxycodone or other cross-reacting compounds are reported as ??positive. ??False positive and false negative results are possible. Confirmatory testing required for definitive results. Current Interpretive Data was last reviewed 2023. Phencyclidine, ur Not Detected CutOff 25 ng/mL [facility] Comment: Interpretive Data - Phencyclidine: ??Samples containing [...] revised on 2018. Urine 11/08/2024 6:11 AM CONE BAKER MACHINE 11/08/2024 6:15 AM CONE BAKER MACHINE Narrative [facility] - 11/08/2024 6:47 AM CONE BAKER MACHINE Drug of Abuse screening is performed by immunoassay for medical purposes only. ??This is not to be used for Pain Management purposes. us Jaclyn Xavier MD LAB URINE ORDERABLES Fin al Result [facility] [address] [facility] Department [place] [address] * Ethanol (11/08/2024 6:11 AM CONE BAKER MACHINE) Ethanol <10 <=10 mg/dL Comment: Interpretive Data Legal limit of intoxication > or = 80 mg/dL Levels > or = 400 mg/dL are potentially TOXIC. Current interpretive data was last revised on 2018. Blood 11/08/2024 6:11 AM CONE BAKER MACHINE 11/08/2024 6:17 AM CONE BAKER MACHINE us Jaclyn Xavier MD LAB BLOOD ORDERABLES Fin al Result [facility] [address] [facility] Department [place] [address] * Comprehensive metabolic panel (11/08/2024 6:11 AM CONE BAKER MACHINE) Sodium 140 135 - 145 mmol/L Potassium, pl 3.6 3.3 - 4.9 mmol/L [facility] Chloride 103 97 - 110 mmol/L [facility] CO2 26 22 - 32 mmol/L [facility] Anion gap 11 2 - 15 mmol/L [facility] BUN 8 6 - 25 mg/dL [facility] Creatinine 0.63 0.60 - 1.10 mg/dL [facility] Glucose 113 70 - 199 mg/dL [facility] Comment: Interpretive Data Fasting glucose >/= [...] 2022. Calcium 9.8 8.5 - 10.3 mg/dL [facility] Bilirubin, total 1.0 0.1 - 1.2 mg/dL [facility] Protein, pl 7.7 6.5 - 8.5 g/dL [facility] Albumin 4.6 3.5 - 5.0 g/dL [facility] Alk phos 61 40 - 130 Units/L [facility] ALT 7 7 - 45 Units/L [facility] AST 19 10 - 45 Units/L [facility] Blood 11/08/2024 6:11 AM CONE BAKER MACHINE 11/08/2024 6:17 AM CONE BAKER MACHINE Jaclyn Xavier MD LAB BLOOD ORDERABLES Fin al Result [facility] [address] [facility] Department [place] [address] * POCT hCG, urine (11/08/2024 6:10 AM CONE BAKER MACHINE) HCG, ur, POC Negative Negative Lot Number [id number] QC Backgroud Clear Acceptable QC Control Line Acceptable Urine 11/08/2024 6:10 AM CONE BAKER MACHINE Jaclyn Xavier MD POINT OF CARE TEST ORDER KELLEY Final Result * ECG 12 lead (11/03/2024 11:04 PM CONE BAKER MACHINE) 11/03/2024 11:0 4 PM CONE BAKER MACHINE Narrative [facility] - 11/04/2024 2:30 PM CONE BAKER MACHINE Vent Rate: 67 bpm RR Interval: 892 msec DC Interval: 142 msec QRS Duration: 89 msec QT Interval: 413 msec QTC Interval: 428 msec P-R-T Mcalester: 25 - 0 - 21 degrees IMPRESSION: SINUS RHYTHM MODERATE VOLTAGE CRITERIA FOR LVH, CONSIDER NORMAL VARIANT ??[MEETS CRITERIA IN ONE OF: R(aVL), S(V1), R(V5), R(V5/V6)+S(V1)] BORDERLINE ECG NO CHANGE FROM PREVIOUS TRACING NOTED Electronically Signed By: Nithin Vaca MD Job James MD ECG ORDERABLES Final Resul t Performing Organization Address [facility]/ZIP Co de Phone Number [facility] * CT Head WO Contrast (11/03/2024 10:53 PM CONE BAKER MACHINE) Anatomical Region Laterality Modality Head and Neck N/A Computed Tomogra phy 11/03/2024 10:5 6 PM CONE BAKER MACHINE Narrative 11/03/2024 10:58 PM CONE BAKER MACHINE EXAM DESCRIPTION: CT HEAD WO CONTRAST REASON [...] PM T: ??11/03/2024 10:58 PM Report ID: [id number] Reading Location: ??[id number] Procedure Note Mike Kirk MD - 11/03/2024 [...] Mike Kirk M.D. AT: AT Report ID: [id number] Reading Location: [place] [address] us Job James MD IMG CT PROCEDURES Final Res ult * Troponin T high-sensitivity 2-hour (11/03/2024 10:46 PM CONE BAKER MACHINE) Trop T hs 7 <=14 ng/L Comment: Interpretive Data For further hscTnT resources including the diagnostic algorithm and an aid in interpretation, copy and paste this link: https://nrl.testcatalog.org/show/hsTrop Current Interpretive Data last revised 2020. Trop T hs delta See Comment ng/L CE RNASIA SHAH ([place]) Comment:Inappropriate collec tion time to report a delta. Trop T hs pct delta See Comment % ARI SHAH ([place]) Comment:Inappropriate collec tion time to report a delta. Trop T hs interp See Comment C ROSITA SHAH ([place]) Comment:Inappropriate collec tion time to report a delta. Blood 11/03/2024 10:4 6 PM [facility]E BAKER MACHINE 11/03/2024 10:50 PM CONE BAKER MACHINE Job James MD LAB BLOOD ORDERABLES Final Result ARI SHAH (JD) 1 [facility] Department of Laboratories [place], [place] [id number] * Pro B-type natriuretic peptide (11/03/2024 10:46 PM CONE BAKER MACHINE) NT-proBNP 51 <=300 pg/mL Comment: Interpretive Comments: [...] Date: 2018. Blood 11/03/2024 10:4 6 PM CONE BAKER MACHINE 11/03/2024 10:50 PM CONE BAKER MACHINE us Job James MD LAB BLOOD ORDERABLES Edited Result - Final IHZVIR YXL (JD) 1 [facility] Department [place] [address] * Thyroid Function [place] (11/03/2024 10:46 PM CONE BAKER MACHINE) Pathologist [facility] TSH 1.44 0.30 - 4.20 mcIUnit/mL Blood 11/03/2024 10:4 6 PM CONE BAKER MACHINE 11/03/2024 10:50 PM CONE BAKER MACHINE Job James MD LAB BLOOD ORDERABLES Final Result ARI SHAH (JD) 1 [facility] [place] [address] * (ABNORMAL) Erythrocyte sedimentation rate (11/03/2024 10:46 PM CONE BAKER MACHINE) Pathologist [facility] Erythrocyte sedimentation rate 29(H) 1 - 20 mm/hr Blood 11/03/2024 10:4 6 PM CONE BAKER MACHINE 11/03/2024 10:50 PM CONE BAKER MACHINE Job James MD LAB BLOOD ORDERABLES Final Result ARI SHAH ([place]) 1 [facility] [place] [address] * CRP (acute phase) (11/03/2024 10:46 PM CONE BAKER MACHINE) Pathologist [facility] CRP <3.0 <=10.0 mg/L Blood 11/03/2024 10:4 6 PM CONE BAKER MACHINE 11/03/2024 10:50 PM CONE BAKER MACHINE Job James MD LAB BLOOD ORDERABLES Final Result ARI SHAH (JD) 1 [facility] [place] [address] * Magnesium (11/03/2024 10:46 PM CONE BAKER MACHINE) Pathologist [facility] Magnesium 1.8 1.4 - 2.5 mg/dL Blood 11/03/2024 10:4 6 PM CONE BAKER MACHINE 11/03/2024 10:50 PM CONE BAKER MACHINE Job James MD LAB BLOOD ORDERABLES Final Result ARI SHAH ([place]) 1 [facility] [place] [address] * Creatine kinase (CK), total (11/03/2024 10:46 PM CONE BAKER MACHINE) Pathologist [facility] CK 69 30 - 200 Units/L Blood 11/03/2024 10:4 6 PM CONE BAKER MACHINE 11/03/2024 10:50 PM CONE BAKER MACHINE Job James MD LAB BLOOD ORDERABLES Final Result Performing Organization Address [facility] Co de Phone Number ARI SHAH ([place]) [address] [place] [address] [place] [address] * Troponin T high-sensitivity series (baseline, 2hr, 4hr, 6hr) (11/03/2024 7:40 PM CONE BAKER MACHINE) [facility] Trop T hs <6 <=14 ng/L Comment: Interpretive Data For further hscTnT resources including the diagnostic algorithm and an aid in interpretation, copy and paste this link: https://nrl.testcatalog.org/show/hsTrop Current Interpretive Data last revised 2020. Blood 11/03/2024 7:40 PM CONE BAKER MACHINE 11/03/2024 7:42 PM CONE BAKER MACHINE Job James MD LAB BLOOD ORDERABLES Final Result Performing Organization Address City/[facility]/ZIP Co de Phone Number ARI SHAH ([place]) 1 [facility] [place] [address] * eGFR (11/03/2024 7:40 PM CONE BAKER MACHINE) [facility] eGFR >90 >=60 mL/min/1. 73 m2 Comment: [...] last reviewed 2021. Blood 11/03/2024 7:40 PM CONE BAKER MACHINE 11/03/2024 7:42 PM CONE BAKER MACHINE us Job James MD LAB BLOOD ORDERABLES Final Result ARI [facility] ([place]) 1 [facility] Department [place] [address] * Differential, auto (11/03/2024 7:40 PM CONE BAKER MACHINE) Neutrophil abs 4.3 1.5 - 6.5 K/cumm Imm gran abs 0.0 0.0 - 0.1 K/cumm [facility] ([place]) Lymphocyte abs 1.8 0.8 - 3.3 K/cumm [facility] ([place]) Monocyte abs 0.5 0.2 - 0.8 K/cumm [facility] ([place]) Eosinophil abs 0.1 0.0 - 0.5 K/cumm [...] revised on 2018. Blood 11/03/2024 7:40 PM CONE BAKER MACHINE 11/03/2024 7:42 PM CONE BAKER MACHINE us Job James MD LAB BLOOD ORDERABLES Final Result ARI ALYSSA ([place]) 1 [facility] Department [place] [address] * CBC with auto differential (11/03/2024 7:40 PM CONE BAKER MACHINE) Pathologist [facility] WBC 6.8 3.8 - 9.9 K/cumm Hgb [...] RDW SD 39.8 35.7 - 48.1 fL [facility] ([place]) NRBC abs 0.00 0.00 - 0.01 K/cumm [facility] ([place]) Blood (Blood, Venous) 11/03/2024 7:40 PM CONE BAKER MACHINE 11/03/2024 7:42 PM CONE BAKER MACHINE Job James MD LAB BLOOD ORDERABLES Final Result [facility] ([place]) 1 [facility] Department [place] [address] * (ABNORMAL) Comprehensive metabolic panel (11/03/2024 7:40 PM CONE BAKER MACHINE) Pathologist [facility] Sodium 139 135 - 145 mmol/L Potassium, pl 3.4 3.3 - 4.9 mmol/L [facility] ([place]) Chloride 103 97 - 110 mmol/L [facility] ([place]) CO2 25 22 - 32 mmol/L [facility] ([place]) Anion gap 11 2 - 15 mmol/L [facility] ([place]) BUN 4(L) 6 - 25 mg/dL [facility] ([place]) Creatinine 0.54(L) 0.60 - 1.10 [...] [facility] ([place]) Blood 11/03/2024 7:40 PM CONE BAKER MACHINE 11/03/2024 7:42 PM CONE BAKER MACHINE Job James MD LAB BLOOD ORDERABLES Final Result ARI [facility] ([place]) 1 [facility] Department [place] [address] * XR Chest 1 Vw Portable (if patient condition/safety warrant portable) (11/03/2024 7:17 PM CONE BAKER MACHINE) Anatomical Region Laterality Modality Body, Chest N/A Computed Radiogr aphy 11/03/2024 7:23 PM CONE BAKER MACHINE Narrative 11/03/2024 7:24 PM CONE BAKER MACHINE EXAM DESCRIPTION: ?? XR CHEST 1 VIEW [...] PM T: ??11/03/2024 7:24 PM Report ID: [id number] Reading Location: ??[id number] Procedure Note Paco Reyes MD - 11/03/2024 [...] Paco Reyes M.D. RB: RB Report ID: [id number] Reading Location: [id number] Job James MD IMG XR PROCEDURES Final Res ult * ECG 12 lead (11/03/2024 6:34 PM CONE BAKER MACHINE) 11/03/2024 6:34 PM CONE BAKER MACHINE Narrative [facility] - 11/04/2024 2:30 PM CONE BAKER MACHINE Vent Rate: 89 bpm RR Interval: 668 msec DC Interval: 116 msec QRS Duration: 88 msec QT Interval: 356 msec QTC Interval: 403 msec P-R-T Mcal[place]: 19 - 18 - 2 degrees IMPRESSION: SINUS RHYTHM WITH SHORT DC INTERVAL LOW QRS VOLTAGE IN PRECORDIAL LEADS ??[QRS DEFLECTION < 1.0 mV IN CHEST LEADS] POSSIBLE ANTERIOR MYOCARDIAL INFARCTION , OF INDETERMINATE AGE [30 ms Q WAVE IN V3/V4, OR R < 0.2 mV IN V4] ABNORMAL ECG Compared to prior EKG, heart rate has increased Electronically Signed By: Nithin Vaca MD Job James MD ECG ORDERABLES Final Resul t [facility] * Hepatitis A antibody, IgM Blood (11/02/2024 1:41 PM CONE BAKER MACHINE) Hep A IgM Nonreactive Nonreactive Comment: Interpretive Data: If Hep A IgM Ab is reported as Equivocal, a new sample should be drawn in two weeks for testing. Current interpretive data was last revised on 20. Blood 11/02/2024 1:41 PM CONE BAKER MACHINE 11/02/2024 8:17 PM CONE BAKER MACHINE Trenton Lomeli MD LAB MICROBIOLOGY - GENERAL ORDERABLES Final Result ARRONJOSE CRUZ [id number] [address] [place] [address] * Cryptosporidium and Giardia antigen assay Stool (11/02/2024 1:41 PM CONE BAKER MACHINE) Giardia Ag Negative Negative Comment:Testing performed by : [facility], [address] [place] [address] Cryptosporidium Ag Negative Negative ARI CLAY Comment: Interpretive data: Testing performed by the [facility] using an immunoassay that detects Cryptosporidium and Giardia antigens in stool specimens. ??If comprehensive examination for ova and parasites is required, please request Ova and Parasite Examination . Testing performed by: [facility], [address] [place]., [address] Stool 11/02/2024 1:41 PM CONE BAKER MACHINE 11/02/2024 10:22 PM CONE BAKER MACHINE Trenton Lomeli MD LAB MICROBIOLOGY - GENERAL ORDERABLES Final Result ARI CLAY [id number] Dex [place] [address] * CT Abdomen Pelvis W Contrast (10/28/2024 1:10 PM CONE BAKER MACHINE) Anatomical Region Laterality Modality Body N/A Computed Tomogra phy Historical Provider IMG CT PROCEDURES Final R esult * HM PAP SMEAR (03/19/2021) Historical Provider HEALTH MAINTENANCE Final Result from Last 3 Months or Most Recently Relevant to Health Maintenance Insurance CHOICE [facility] [place] Care Teams Surfacer Relationship Specialty Start Date End Date Trenton Lomeli MD PCP - General Family Medicine 10/06/21 Neelima Velazquez MD [address] [address] Consulting Physician Gynecology 10/06/21 Maura Wilson MD [address] [place] [address] Consulting Physician Cardiology 06/16/23
--- OUTSIDE RECORDS SUMMARY | 2024-11-08 11:18 | XMS_ITS | Encounter Summary ---
Author Organization [facility] Address [address] [place] [address] Phone Care Team Providers Care Nail Cutter Name Role Phone Trenton Lomeli MD Primary Care Provider [phone] Neelima Velazquez MD Unavailable [phone] Reason for Referral * Cardiology (Routine) - Closed Specialty Diagnoses / Procedures Referred By Contac t Referred To Contact Diagnoses POTS (postural orthostatic tachycardia syndrome) Procedures ECG 12 lead Emilie Wilson MD Phone: tel: fax: [facility] (All Locations) Referral ID Status Reason Start Date Expiration Date Visits Re quested Visits Authorized [id number] Closed 02/22/2023 03/23/2024 1 1 * Cardiology (Routine) - Closed Specialty Diagnoses / Procedures Referred By Contac t Referred To Contact Diagnoses POTS (postural orthostatic tachycardia syndrome) Procedures Transthoracic Echo (TTE) Complete W Doppler/CF Emilie Wilson MD Phone: tel: fax: [facility] (All Locations) Referral ID Status Reason Start Date Expiration Date Visits Re quested Visits Authorized [id number] Closed 02/19/2023 03/20/2024 1 1 Encounter Details Date Type Department Care Team (Late st Contact Info) Description 02/19/2023 3:30 PM CDT Office Visit [facility] Cardiology [address] 8th [place] [address] [place] [address] Emilie Wilson MD [address] [place] [address] POTS (postural orthostatic tachycardia syndrome) (Primary Dx) [...] on file Legal Sex Female 4:15 AM 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 Lomeli: Chief Complaint: A 32-year-old female referred for evaluation of POTS. Problem List: 1. Possible postural tachycardia syndrome. a. Said to have 3 prior echocardiograms at [facility], most recently in 2018 with no recordsavailable. 2. Anxiety disorder. a. Previously seeing a psychiatrist. Currently seeing a therapist. 3. Coronavirus disease-August 2022. No hospitalizations. No oxygen. 4. History of serotonin syndrome. a. This occurred when she was at [facility] in [place], [place], associated with SSRI-hydroxyzine sleep medicine combination [...] going to gym and working with a application trainer. Her weight had gone down from 330 pounds to 260 pounds. Then, she had an increase in her symptoms and has not exercised and gained weight again. She tells me that she uses liquid IV when she wakes up feeling poorly, and it helps. She states in late December she was hospitalized for a week at [facility] due to dehydration, felt better with IV [...] heart rate 107; 5 minutes, 136/96, heart [id number]; 10 minutes 128/83, heart rate 112. Head [...] normal. Data: My personal review of the [facility] mobile wash test checker for nearly 24 hours in December 2019: [...] is able to work out with a application trainer. We discussed the elective nature of tilt-table testing and I explained that tilt-table testing is the only diagnostic test for POTS. I explained the risks and benefits. [facility] and asked that she call [...] 09:16 AM Emilie Wilson M.D., F.A.C.C., F.H.R.S. information assurance engineer MG/mts cc: TRENTON LOMELI MD / / [...] #: 0 Date of : 1990 (F) Purse Seining Hand: Pia Masters RDCS Referring Physician: EMILIE WILSON MD Contrast Agent: Patient Refused Contrast Contrast Administered by: Supervised/Interpreted by: Celeste Agosto MD Diagnosis: Location: [facility] Reason for test: POTS MV [...] 2=Hypo 3=Akinetic 4=Dyskin./Aneurysm 0=Not visualized) Parasternal Long [place]:MAS=1 BAS=1 MIL=1 ANAI=1 Parasternal Short [place]:MAS=1 MIS=1 AZ=1 MIL=1 MAL=1 MA=1 Apical 4 Chambers:=1 MIS=1 BIS=1 BAL=1 MAL=1 AL=1 AC=1 Apical 2 Chambers:AI=1 AZ=1 BI=1 BA=1 MA=1 AA=1 AC=1 LV Global [...] MD By signing this report, the attending product finisher certifies that he or she has personally supervised and interpreted the echocardiogram and has reviewed and or edited and agrees with the written comments contained within the report. Procedure Note Celeste Agosto MD - 05/13/2023 Patient name: Alia Fabian Date of test: 05/12/2023 Type of test: [facility] #: 0 Date of : 1990 (F) Purse Seining Hand: Pia Masters RDCS Referring Physician: EMILIE WILSON MD Contrast Agent: Patient Refused Contrast Contrast Administered by: Supervised/Interpreted by: Celeste Agosto MD Diagnosis: Location: [facility] Reason for test: POTS MV [...] 2=Hypo 3=Akinetic 4=Dyskin./Aneurysm 0=Not visualized) Parasternal Long [place]:MAS=1 BAS=1 MIL=1 ANAI=1 Parasternal Short [place]:MAS=1 MIS=1 AZ=1 MIL=1 MAL=1 MA=1 Apical 4 Chambers:=1 MIS=1 BIS=1 BAL=1 MAL=1 AL=1 AC=1 Apical 2 Chambers:AI=1 AZ=1 BI=1 BA=1 MA=1 AA=1 AC=1 LV Global [...] MD By signing this report, the attending product finisher certifies that he or she has personally [...] tachycardia documented in this encounter Care Teams Nail Cutter Relationship Specialty Start Date End Date Trenton Lomeli MD PCP - General Family Medicine 10/06/21 Neelima Velazquez MD [address] [place] [address] Consulting Physician Gynecology 10/06/21 documented as of this encounter
--- OUTSIDE RECORDS SUMMARY | 2024-11-08 11:19 | XMS_ITS | Encounter Summary ---
Author Organization [facility] Address [address] [place] [address] Care Team Providers Care Underwriting Intern Name Role Phone Sergo Mackey MD Primary Care Provider [phone] Encounter Details Date Type Department Care Team (Late st Contact Info) Description 08/07/2017 7:34 PM CDT - 08/08/2017 2:24 AM CDT Emergency [facility] Emergency Department [address] [place] [address] Rock Grant MD [facility] [address] [place], [place] [id number] Discharge Disposition: Discharge to home or self care Social History Tobacco Use Types Packs/Day Years Used Date Smoking Tobacco: Never Alcohol Use Standard Drinks/Week Comments No 0 (1 standard drink = 0.6 oz pur e alcohol) Comments Unknown Sex and Gender Information Value Date Recorded Sex Assigned at Not on file Legal Sex Female 4:15 AM 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
--- OUTSIDE RECORDS SUMMARY | 2024-11-08 11:19 | XMS_ITS | Encounter Summary ---
Author Organization [facility] Address [address] [address] Care Team Providers Care Python Django Developer Name Role Phone Trenton Lomeli MD Primary Care Provider [phone] Neelima Velazquez MD Unavailable [phone] Reason for Visit * Reason Onset Date Comments Medical Question/Miscellaneous 08/11/2022 Encounter Details Date Type Department Care Team (Late st Contact Info) Description 08/11/2022 Telephone [facility] Primary Care at [address] [address] Trenton Lomeli MD [address] [place] [address] [address] [place] [address] Medical Question/Miscellaneous Social History Tobacco [...] on file Legal Sex Female 4:15 AM 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 Low amount of interactions of risks, [...] sore throat congestion Caller???s Call back #: [phone] Does message need to be routed?Yes-Action Needed documented in this encounter Plan of Treatment Not on file documented as of this encounter Visit Diagnoses Diagnosis COVID-19- Primary documented in this encounter Care Teams Python Django Developer Relationship Specialty Start Date End Date Trenton Lomeli MD PCP - General Family Medicine 10/06/21 Neelima Velazquez MD [address] [address] Consulting Physician Gynecology 10/06/21 documented as of this encounter
--- OUTSIDE RECORDS SUMMARY | 2024-11-08 11:19 | XMS_ITS | Encounter Summary ---
Author Organization [facility] Healthcare Address [address] [place] [address] Care Team Providers Care Heel Seat Trimmer Name Role Phone Trenton Lomeli MD Primary Care Provider [phone] Neelima Velazquez MD Unavailable [phone] Encounter Details Date Type Department Care Team (Latest Contact Info) Description 11/09/2022 4:21 PM ATTACHER - 11/09/2022 11:59 PM ATTACHER Hospital Encounter 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 Not on file Not [...] Comments LIPID PANEL Routine 11/09/2022 4:21 PM ATTACHER Screening, lipid documented in this encounter Results * (ABNORMAL) Lipid panel (11/09/2022 4:21 PM ATTACHER) Cholesterol 235(H) 30 - 199 mg/dL ARI [...] ratio 6 ARI Blood 11/09/2022 4:21 PM ATTACHER 11/09/2022 7:19 PM ATTACHER us Trenton Lomeli MD LAB BLOOD ORDERABLES Final Result Performing Organization Address City/State/[facility] Phone Number ARI [address] [facility] Department [place] [address] documented in this encounter Visit Diagnoses Diagnosis Screening, lipid documented in this encounter Care Teams Heel Seat Trimmer Relationship Specialty Start Date End Date Trenton Lomeli MD PCP - General Family Medicine 10/06/21 Neelima Velazquez MD [address] [address] Consulting Physician Gynecology 10/06/21 documented as of this encounter
--- OUTSIDE RECORDS SUMMARY | 2024-11-08 11:19 | XMS_ITS | Encounter Summary ---
Author Organization [facility] Address [address] [address] Care Team Providers Care Board Layer Name Role Phone Trenton Lomeli MD Primary Care Provider [phone] Neelima Velazquez MD Unavailable [phone] Encounter Details Date Type Department Care Team (Late st Contact Info) Description 08/11/2022 Telephone [facility] Primary Care at [address] [address] Trenton Lomeli MD [address] [place] [address] [address] [place] [address] Social History Tobacco Use Types [...] on file Legal Sex Female 4:15 AM 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 Gender Identity Not on file Sexual Orientation Not on file 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
--- OUTSIDE RECORDS SUMMARY | 2024-11-08 11:19 | XMS_ITS | Encounter Summary ---
Author Organization [facility] Address [address] [address] Care Team Providers Care Hair And Makeup Designer Name Role Phone Trenton Lomeli MD Primary Care Provider [phone] Neelima Velazquez MD Unavailable [phone] Reason for Visit * Reason Comments Urinary Symptom UTI symptoms and str ep symptoms Encounter Details Date Type Department Care Team (Late st Contact Info) Description 08/10/2022 3:30 PM CDT Telemedicine [facility] Medical [facility] Primary Care at [address] [address] Trenton Lomeli MD [address] [place] [address] [address] [place] [address] Acute cystitis without hematuria (Primary [...] on file Legal Sex Female 4:15 AM EQUAL OPPORTUNITY COUNSELOR Gender Identity Not on file Sexual Orientation Not on file 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 During the visit, I was located in the office and the patient was located at home [facility]. The patient visit started at 330p [...] still under emergency use authorization, so no line up machine operator data. Low amount of interactions of risks, but GI upset is a main one (apart from risk of allergy. She should avoid for 3 months after medication. In that case, she can forgo the amoxicillin. Trenton Lomeli MD This office note has been partially dictated using ReviewZAP software. documented in this encounter Plan of [...] 07/31/2022 added in this encounter Care Teams Hair And Makeup Designer Relationship Specialty Start Date End Date Trenton Lomeli MD PCP - General Family Medicine 10/06/21 Neelima Velazquez MD [address] [address] Consulting Physician Gynecology 10/06/21 documented as of this encounter
--- OUTSIDE RECORDS SUMMARY | 2024-11-08 11:19 | XMS_ITS | Encounter Summary ---
Author Organization [facility] Medical Group Address [address] [address] Care Team Providers Care Upholstery Auto Trimmer Name Role Phone Trenton Lomeli MD Primary Care Provider [phone] Neelima Velazquez MD Unavailable [phone] Reason for Visit * Reason Comments URI Home tests negative, tickle. 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 The following is recommended [...] sent through Care Everywhere. * Strep Throat (Nanny Babysitter) (Chilean) documented in this encounter Ordered Prescriptions Prescription [...] tenderness or frontal sinus tenderness. Mouth/Throat: Lips: [place]. Mouth: Mucous membranes are moist. Pharynx: Uvula [...] The rapid strep test performed at the [facility] today was POSITIVE. The following is recommended [...] return to work Patient Education Strep Throat TELEVISION DIRECTOR: Strep throat is a throat infection caused [...] ask them during your visits. ?? 2017 [employer] Information is for End User's use only and may not be sold, redistributed or otherwise used for commercial purposes. All illustrations and images included in CareNotes?? are the copyrighted property of [employer]. or [employer]. The above information is an dietary aid only. It is not intended as [...] rapid strep A (03/31/2022 4:03 PM CDT) [facility] Rapid Strep A, POC Positive Swab 03/31/2022 4:03 PM CDT Gayla Sykes NP POINT OF CARE TEST ORDERABLES Final Result * POC Influenza A/B, COVID-19 antigen (03/31/2022 4:02 PM CDT) Pathologist [facility] Influenza A Ag, POC Negative [facility] Influenza B Ag, POC Negative [facility] COVID-19 Ag POC Presumptive Negative Presumptive Negative, Invalid [facility] Nasal 03/31/2022 4:02 PM CDT us Saman Dinero NP POINT OF CARE TEST ORDERABLES F inal Result [facility] [address] [place] [address], [facility] documented in this encounter Visit Diagnoses Diagnosis Strep throat- Primary Streptococcal sore throat documented in this encounter Additional Health Concerns Infection Onset Date Last Indicated Resolved Time COVID: Suspected 03/31/2022 03/31/2022 03/31/2022 4:04 PM CDT documented as of this encounter Care Teams Upholstery Auto Trimmer Relationship Specialty Start Date End Date Trenton Lomeli MD PCP - General Family Medicine 10/06/21 Neelima Velazquez MD [address] [place] [address] Consulting Physician Gynecology 10/06/21 documented as of this encounter
--- OUTSIDE RECORDS SUMMARY | 2024-11-08 11:19 | XMS_ITS | Encounter Summary ---
Author Organization [facility] Address [address] [address] Care Team Providers Care Combat Systems Operator Name Role Phone Trenton Lomeli MD Primary Care Provider [phone] Neelima Velazquez MD Unavailable [phone] Reason for Visit * Reason Comments Cold Symptoms Patient presents tod with fever, nasal drainage, sore throat, and chills.The patient's symptoms started last Wednesday. For the first 3 days, patient had chills and fevers. 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 Not on file Not on file Not on file documented as of this encounter Last Filed Vital Signs Vital Sign Reading Time Taken Comments Blood Pressure 144/91 10/03/2022 12:39 PM EMT BASIC Pulse 104 10/03/2022 12:39 PM EMT BASIC Temperature 37.1 ??C (98.8 ??F) 10/03/2022 12:[address] Respiratory Rate 28 10/03/2022 12:39 PM EMT BASIC Oxygen Saturation 95% 10/03/2022 12:39 PM EMT BASIC Inhaled Oxygen Concentration - - Weight 130.6 kg (288 lb) 10/03/2022 12:39 PM EMT BASIC Height 171.5 cm (5' 7.5 ) 10/03/2022 12:39 PM CS T Body Mass Index 44.44 10/03/2022 12:39 PM EMT BASIC documented in this encounter Patient Instructions * Patient Instructions* Gayla Sykes, SUPERVISOR ESTERS AND EMULSIFIERS - 10/03/2022 12:45 PM EMT BASIC Symptomatic treatments include: -Over the counter antihistamine [...] same utensils or glass, and use hand air twister winder before touching people or common surfaces. -Apply [...] SERIOUS COMPLICATION AND REQUIRES IMMEDIATE EMERGENCY ATTENTION. BASIC * Attachments The following attachments cannot be sent through Care Everywhere. * Sinusitis (Naval Designer) (Burmese) documented in this encounter Ordered Prescriptions Prescription [...] rash, and abdominal pain. Patient has taken etvy-ozj-hfhsgmx cold medications for her symptoms. Patient is [...] and frontal sinus tenderness present. Mouth/Throat: Lips: [place]. Mouth: Mucous membranes are moist. Pharynx: Uvula [...] same utensils or glass, and use hand air twister winder before touching people or common surfaces. -Apply [...] can return to work Patient Education Sinusitis RF MICROWAVE ENGINEER: Sinusitis is inflammation or infection of your [...] ask them during your visits. ?? 2017 [employer] Information is for End User's use only and may not be sold, redistributed or otherwise used for commercial purposes. All illustrations and images included in CareNotes?? are the copyrighted property of [employer]. or [employer]. The above information is an preparole counseling aide only. It is not intended as medical advice for individual conditions or treatments. Talk to your doctor, nurse or pharmacist before following any medical regimen to see if it is safe and effective for you. Gayla Sykes NP BASIC documented in this encounter Miscellaneous Notes * Addendum Note - Karmen Reyes CMA - 10/03/2022 12:45 PM CSTAddended by: KARMEN REYES on: 10/03/2022 01:51 PM Modules accepted: Orders BASIC documented in this encounter Plan of Treatment Not on file documented as of this encounter Procedures Procedure Name Priority Date/Time Associated Diagnosis Comments POC INFLUENZA A/B, COVID-19 ANTIGEN Routine 10/03/2022 1:04 PM EMT BASIC Acute non-recurrent pansinusitis POCT RAPID STREP Routine 10/03/2022 12:5 8 PM EMT BASIC Acute non-recurrent pansinusitis documented in this encounter Results * Throat culture Throat (10/03/2022 1:52 PM EMT BASIC) Report Final Report: No growth of pathogens. ARI CLAY Comment:Testing performed by : [facility], [address] [facility], [place]., [address] Throat 10/03/2022 1:52 PM EMT BASIC 10/04/2022 1:26 AM EMT BASIC Narrative ARI CLAY - 10/05/2022 1:28 PM EMT BASIC Testing performed by [facility] Microbiology Laboratory ([phone]). Gayla M. Trower SUPERVISOR ESTERS AND EMULSIFIERS LAB MICROBIOLOGY - GENERAL ORD ERABLES Final Result ARI CLAY [address] [address] Department [place] [address] * POC Influenza A/B, COVID-19 antigen (10/03/2022 1:04 PM EMT BASIC) Influenza A Ag, POC Negative Negative [facility] Influenza B Ag, POC Negative Negative [facility] COVID-19 Ag POC Presumptive Negative Presumptive Negative, Invalid [facility] Nasal 10/03/2022 1:04 PM EMT BASIC us Gayla Sykes SUPERVISOR ESTERS AND EMULSIFIERS POINT OF CARE TEST ORDERABLES Final Result Performing Organization Address City/[facility] Co de Phone Number [facility] [address] * POCT rapid strep A (10/03/2022 12:58 PM EMT BASIC) Rapid Strep A, POC Negative Swab 10/03/2022 12:5 8 PM EMT BASIC us Gayla Sykes SUPERVISOR ESTERS AND EMULSIFIERS POINT OF CARE TEST ORDERABLES Final Result documented in this encounter Visit Diagnoses Diagnosis Acute non-recurrent pansinusitis- Primary Acute non-recurrent pansinusitis documented in this encounter Additional Health Concerns Infection Onset Date Last Indicated Resolved Time COVID: Suspected 10/03/2022 10/03/2022 10/03/2022 1:05 PM EMT BASIC documented as of this encounter Care Teams Combat Systems Operator Relationship Specialty Start Date End Date Trenton Lomeli MD PCP - General Family Medicine 10/06/21 Neelima Velazquez MD [address] [place] [address] Consulting Physician Gynecology 10/06/21 documented as of this encounter
--- OUTSIDE RECORDS SUMMARY | 2024-11-08 11:19 | XMS_ITS | Encounter Summary ---
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 Not on file Not on file Not on file documented as of this encounter Plan of Treatment Not on file documented as of this encounter Procedures Procedure Name Priority Date/Time Associated Diagnosis Comments EGFR Routine 10/06/2021 2:39 PM [facility] SPRAY DRIER Nonalcoholic steatohepatitis (ACE) DIFFERENTIAL AUTO Routine 10/06/2021 2:3 9 PM [facility] Nonalcoholic steatohepatitis (ACE) THYROID FUNCTION CASCADE Routine 10/06/2021 2:39 PM [facility] Essential hypertension CBC WITH AUTO DIFFERENTIAL Routine 10/06/2021 2:39 PM [facility] [employer] [facility] Nonalcoholic steatohepatitis (ACE) LIPID PANEL Routine 10/06/2021 2:39 PM [facility] [employer] [facility] Nonalcoholic steatohepatitis (ACE) COMPREHENSIVE METABOLIC PANEL Routine 10/06/2021 2:39 PM [facility] [employer] Nonalcoholic steatohepatitis (ACE) documented in this encounter Results * eGFR (10/06/2021 2:39 PM YOLK SPRAY DRIER) eGFR 123 mL/min/1.7 3 m2 ARI CLAY [...] last reviewed 2020 Blood 10/06/2021 2:39 PM [facility] D[facility]ER 10/06/2021 8:03 PM [facility] SPR[employer] DRIER us Trenton Lomeli MD LAB BLOOD ORDERABLES Final Result [facility] [id number] [address] Department [place] [address] * Differential, auto (10/06/2021 2:39 PM [facility]OLK SPRAY DRIER) Neutrophil abs 3.3 1.7 - 6.5 K/cumm CERNER Imm gran abs 0.0 0.0 - 0.1 K/cumm [facility] Lymphocyte abs 1.8 0.8 - 3.3 K/cumm [facility] Monocyte abs 0.4 0.2 - 0.8 K/cumm [facility] Eosinophil abs 0.1 0.0 - 0.5 K/cumm [facility] Basophil abs 0.0 0.0 - 0.1 K/cumm [facility] Neutrophil pct 57.7 % [facility] Comment: Interpretive Data Percent cell count reference ranges are not reported, since discordance with absolute values may lead to misinterpretation of CBC data. Current Interpretive Data was last revised on 2018. Imm gran pct 0.2 % [facility] Comment: Interpretive Data Percent cell count reference ranges are not reported, since discordance with absolute values may lead to misinterpretation of CBC data. Current Interpretive Data was last revised on 2018. Lymphocyte pct 32.1 % [facility] Comment: Interpretive Data Percent cell count reference ranges are not reported, since discordance with absolute values may lead to misinterpretation of CBC data. Current Interpretive Data was last revised on 2018. Monocyte pct 7.3 % [facility] Comment: Interpretive Data Percent cell count reference [...] revised on 2018. Blood 10/06/2021 2:39 PM [facility] 10/06/2021 7:52 PM [facility] Trenton Lomeli MD LAB BLOOD ORDERABLES Final Result [facility] [address] [address] Department [place] [address] * (ABNORMAL) CBC with auto differential (10/06/2021 2:39 PM [facility] SPR[employer] DRIER) WBC 5.6 3.8 - 9.9 K/cumm [facility] Hgb 13.6 11.9 - 15.5 g/dL [facility] Hct 42.7 35.6 - 45.5 % [facility] Plt 338 150 - 400 K/cumm [facility] MPV 9.5 9.1 - 12.3 fL [facility] RBC 4.83 3.90 - 5.20 M/cumm [facility] MCV 88.4 81.3 - 96.4 fL [facility] MCH 28.2 27.1 - 33.3 pg [facility] MCHC 31.9(L) 32.3 - 35.7 g/dL [facility] RDW CV 12.9 11.1 - 14.9 % [facility] RDW SD 41.9 35.7 - 48.1 fL [facility] NRBC abs 0.00 0.00 - 0.01 K/cumm [facility] Blood 10/06/2021 2:39 PM [facility] 10/06/2021 7:52 PM [facility] Trenton Lomeli MD LAB BLOOD ORDERABLES Final Result [facility] [address] [address] Department [place] [address] * (ABNORMAL) Comprehensive metabolic panel (10/06/2021 2:39 PM [facility]) Sodium 141 135 - 145 mmol/L CERNER [...] Units/L [facility] CH Blood 10/06/2021 2:39 PM [facility] [facility] 10/06/2021 7:52 PM [facility] Trenton Lomeli MD LAB BLOOD ORDERABLES Final Result [facility] [address] [address] Department [place] [address] * (ABNORMAL) Lipid panel (10/06/2021 2:39 PM [facility] D[facility]ER) [facility] Signature Cholesterol 147 30 - 199 [...] 6 [facility]ERNER CH Blood 10/06/2021 2:39 PM [facility] 10/06/2021 7:52 PM [facility] [employer] [facility] us Trenton Lomeli MD LAB BLOOD ORDERABLES Final Result Performing Organization Address City/[facility] Co de Phone Number ARI [address] [address] [employer] [place] [address] * TSH reflex to free T4 (10/06/2021 2:39 PM [facility] SPRAY DRIER) TSH 0.84 0.30 - 4.20 mcIUnit/mL [facility] CH Blood 10/06/2021 2:39 PM [facility] 10/06/2021 7:52 PM [facility] [employer]RIER us Trenton Lomeli MD LAB BLOOD ORDERABLES Final Result Performing Organization Address [facility] de Phone Number ARI [address] [address] Department [employer] [place] [address] documented in this encounter Visit Diagnoses Diagnosis Essential hypertension Unspecified essential hypertension Nonalcoholic steatohepatitis (ACE) documented in this encounter Care Teams Laundry Assistant Relationship Specialty Start Date End Date Trenton Lomeli MD PCP - General Family Medicine 10/06/21 Neelima Velazquez MD [address] [address] Consulting Physician Gynecology 10/06/21 documented as of this encounter
--- OUTSIDE RECORDS SUMMARY | 2024-11-08 11:19 | XMS_ITS | Encounter Summary ---
Author Organization [facility] Address [address] [place] [address] Phone Care Team Providers Care Dietary Aid Name Role Phone Trenton Lomeli MD Primary Care Provider [phone] Neelima Velazquez MD Unavailable [phone] Encounter Details Date Type Department Care Team (Late st Contact Info) Description 12/04/2022 Telephone [facility] Cardiology [address] [facility] Advanced Medicine [address]th [place] [address] [place] [address] Ginna Keith Social History Tobacco [...] on file Legal Sex Female 4:15 AM BIOLOGY INSTRUCTOR Gender Identity Not on file Sexual Orientation Not on file 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 [] [x]If 'Yes', Schedule first available with Cardio-Oncology Have you ever seen a Sales Promotion Representative in an office setting? [x] [] If [...] ANY cardiac issue? [x] [] Kept overnight [facility] Have you ever had an EKG? [x] [...] [x] [] Several 24hr, 2 month long, [facility] Have you ever had a Cardiac [...] where and when was device put in? Staff Development Nurse? ([employer], [employer], [employer]) Notes: Being referred [...] building entry and while inside the facility. OGY INSTRUCTOR documented in this encounter Plan of Treatment Not on file documented as of this encounter Visit Diagnoses Not on filedocumented in this encounter Care Teams Dietary Aid Relationship Specialty Start Date End Date Trenton Lomeli MD PCP - General Family Medicine 10/06/21 Neelima Velazquez MD [address] [address] Consulting Physician Gynecology 10/06/21 documented as of this encounter
--- OUTSIDE RECORDS SUMMARY | 2024-11-08 11:19 | XMS_ITS | Encounter Summary ---
Author Organization [facility] Healthcare Address [address] [place] [address] Care Team Providers Care Hoisting Engineer Pile Driving Name Role Phone Trenton Lomeli MD Primary Care Provider [phone] Neelima Velazquez MD Unavailable [phone] Encounter Details Date Type Department Care Team (Latest Contact Info) Description 10/03/2022 1:52 PM PETS AND PET SUPPLIES SALESPERSON - 10/03/2022 11:59 PM PETS AND PET SUPPLIES SALESPERSON Hospital Encounter [facility] [address] [place] [address] Acute non-recurrent pansinusitis Discharge Disposition: [...] on file Legal Sex Female 4:15 AM PETS AND PET SUPPLIES SALESPERSON Gender Identity Not on file Sexual Orientation Not on file 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 ARI CLAY Comment:Testing performed by : [facility], [address] [place] [address]., [address] Throat 10/03/2022 1:52 PM PETS AND PET SUPPLIES SALESPERSON 10/04/2022 1:26 AM PETS AND PET SUPPLIES SALESPERSON Narrative ARI CLAY - 10/05/2022 1:28 PM PETS AND PET SUPPLIES SALESPERSON Testing performed by [facility] Microbiology Laboratory ([phone]). us Gayla Sykes NP LAB MICROBIOLOGY - GENERAL ORD ERABLES Final Result [facility] [address] [address] Department [place] [address] documented in this encounter Visit Diagnoses Diagnosis Acute non-recurrent pansinusitis documented in this encounter Care Teams Hoisting Engineer Pile Driving Relationship Specialty Start Date End Date Trenton Lomeli MD PCP - General Family Medicine 10/06/21 Neelima Velazquez MD [address] [address] Consulting Physician Gynecology 10/06/21 documented as of this encounter
--- OUTSIDE RECORDS SUMMARY | 2024-11-08 11:19 | XMS_ITS | Encounter Summary ---
Author Organization [facility] Address [address] [place] [address] Phone Care Team Providers Care Materials And Corrosion Engineer Name Role Phone Sergo Mackey MD Primary Care Provider [phone] Trenton Lomeli MD Primary Care Provider [phone] Neelima Velazquez MD Unavailable Maura Wilson MD Unavailable [phone] Encounter Details Date Type Department Care [...] on file Legal Sex Female 4:15 AM LUMPIA WRAPPER MAKER Gender Identity Not on file Sexual Orientation [...] COVID: Suspected 10/03/2022 10/03/2022 10/03/2022 1:05 PM LUMPIA WRAPPER MAKER COVID: Suspected 10/22/2022 10/22/2022 10/22/2022 5:32 PM LUMPIA WRAPPER MAKER documented as of this encounter Care Teams Materials And Corrosion Engineer Relationship Specialty Start Date End Date Sergo Mackey MD [address] [place] [address] PCP - General 08/05/17 10/05/21 Trenton Lomeli MD [address] [place] [address] PCP - General Family Medicine 10/06/21 Neelima Velazquez MD [address] [address] Consulting Physician Gynecology 10/06/21 Maura Wilson MD [address] [place] [address] Consulting Physician Cardiology 06/16/23 documented as of this encounter
--- OUTSIDE RECORDS SUMMARY | 2024-11-08 11:19 | XMS_ITS | Encounter Summary ---
Author Organization [facility] Address [address] [address] Care Team Providers Care Wood Handler Name Role Phone Trenton Lomeli MD Primary Care Provider [phone] Neelima Velazquez MD Unavailable [phone] Reason for Visit * Reason Comments Annual Exam physical Encounter Details Date Type Department Care Team (Late st Contact Info) Description 11/09/2022 3:45 PM APPLIED MARINE PHYSICS PROFESSOR Office Visit [facility] Primary Care at [address] [address] Trenton Lomeli MD [address] [place] [address] [address] [place] [address] Well adult exam (Primary Dx); [...] on file Legal Sex Female 4:15 AM APPLIED MARINE PHYSICS PROFESSOR Gender Identity Not on file Sexual Orientation Not on file 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 Not on file Not on file documented as of this encounter Last Filed Vital Signs Vital Sign Reading Time Taken Comments Blood Pressure 136/84 11/09/2022 3:44 PM APPLIED MARINE PHYSICS PROFESSOR Pulse 111 11/09/2022 3:44 PM APPLIED MARINE PHYSICS PROFESSOR Temperature 36.6 ??C (97.8 ??F) 11/09/2022 3:44 PM CS T Respiratory Rate 16 11/09/2022 3:44 PM APPLIED MARINE PHYSICS PROFESSOR Oxygen Saturation 98% 11/09/2022 3:44 PM APPLIED MARINE PHYSICS PROFESSOR Inhaled Oxygen Concentration - - Weight 133.4 kg (294 lb) 11/09/2022 3:44 PM APPLIED MARINE PHYSICS PROFESSOR Height 171.5 cm (5' 7.5 ) 11/09/2022 3:44 PM APPLIED MARINE PHYSICS PROFESSOR Body Mass Index 45.37 11/09/2022 3:44 PM APPLIED MARINE PHYSICS PROFESSOR documented in this encounter Patient Instructions * Patient Instructions* Trenton Lomeli MD - 11/09/2022 3:45 PM APPLIED MARINE PHYSICS PROFESSOR Thanks for coming in today! My medical assistants and I are thankful you have trusted us with your care, and hope that you received EXCELLENT care today! Please do not hesitate to call if you have any questions or concerns at [phone]. You may receive a phone call, text, MYCHART message, or e-mail asking about your care today. We would love to hear your feedback on how EXCELLENT your care wastoday! Wishing you better health, always. Dr. Lomeli IED MARINE PHYSICS PROFESSOR * Attachments The following attachments cannot be sent through Care Everywhere. * DASH Eating Plan (General Information) (Djiboutian) documented in this encounter Progress Notes * [...] or bloody stools. No urinary tract symptoms. RN REHABILITATION ROS: normal menses, no abnormal bleeding, pelvic [...] WISDOM TOOTH EXTRACTION Oral Surgery Tooth Extraction [place] Tooth - (Added by TW Conv) Family [...] Cardiology; Future Need for vaccination Comments: deferred IED MARINE PHYSICS PROFESSOR documented in this encounter Miscellaneous Notes * Assessment & Plan Note - Trenton Lomeli MD - 11/09/2022 4:02 PM APPLIED MARINE PHYSICS PROFESSOR Associated Problem(s): Morbid (severe) obesity due to excess calories (HCC) BMI Follow-up includes: nutrition counseling, exercise counseling and education provided. IED MARINE PHYSICS PROFESSOR * Assessment & Plan Note - Trenton Lomeli MD - 11/09/2022 4:01 PM APPLIED MARINE PHYSICS PROFESSOR Associated Problem(s): Well adult exam A(n) yearly [...] tests per orders return annually or prn IED MARINE PHYSICS PROFESSOR IED MARINE PHYSICS PROFESSOR documented in this encounter Plan of Treatment Not on file documented as of this encounter Results * (ABNORMAL) Lipid panel (11/09/2022 4:21 PM APPLIED MARINE PHYSICS PROFESSOR) Cholesterol 235(H) 30 - 199 mg/dL ARI [...] 6 ARI CLAY Blood 11/09/2022 4:21 PM APPLIED MARINE PHYSICS PROFESSOR 11/09/2022 7:19 PM APPLIED MARINE PHYSICS PROFESSOR us Trenton Lomeli MD LAB BLOOD ORDERABLES Final Result [facility] [address] [facility] Department [place] [address] documented in this encounter Visit Diagnoses Diagnosis [...] disease documented in this encounter Care Teams Wood Handler Relationship Specialty Start Date End Date Trenton Lomeli MD PCP - General Family Medicine 10/06/21 Neelima Velazquez MD [address] [address] Consulting Physician Gynecology 10/06/21 documented as of this encounter
--- OUTSIDE RECORDS SUMMARY | 2024-11-08 11:19 | XMS_ITS | Encounter Summary ---
Author Organization [facility] Address [address] [address] Care Team Providers Care Buttermaker Name Role Phone Trenton Lomeli MD Primary Care Provider [phone] Neelima Velazquez MD Unavailable [phone] Encounter Details Date Type Department Care Team (Late st Contact Info) Description 11/09/2022 5:45 PM COMPLAINTS COORDINATOR Lab 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
--- OUTSIDE RECORDS SUMMARY | 2024-11-08 11:19 | XMS_ITS | Encounter Summary ---
Author Organization [facility] Address [address] [facility] [address] [place] [address] Care Team Providers Care Optical Model Maker And Tester Name Role Phone Trenton Lomeli MD Primary Care Provider [phone] Neelima Velazquez MD Unavailable [phone] Encounter Details Date Type Department Care Team (Late st Contact Info) Description 11/10/2022 Orders Only [facility] Primary Care at [address] [address] Trenton Lomeli MD [address] [place] [address] [address] [place] [address] Mixed hyperlipidemia (Primary Dx) Social [...] on file Legal Sex Female 4:15 AM BULLDOZER PRESS OPERATOR Gender Identity Not on file Sexual Orientation Not on file 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
--- OUTSIDE RECORDS SUMMARY | 2024-11-08 11:19 | XMS_ITS | Encounter Summary ---
Author Organization [facility] Address [address] [address] Care Team Providers Care Business Services Clerk Name Role Phone Trenton Lomeli MD Primary Care Provider [phone] Neelima Velazquez MD Unavailable [phone] Reason for Visit * Reason Onset Date Comments Test Results 11/10/2022 Encounter Details Date Type Department Care Team (Late st Contact Info) Description 11/10/2022 Telephone [facility] Primary Care at [address] [address] Trenton Lomeli MD [address] [place] [address] [address] [place] [address] Test Results Social History Tobacco [...] on file Legal Sex Female 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 GENETICIST * Telephone Encounter - Renee Disla - 11/10/2022 3:13 PM CST Test Result Request Type of test: lab work Date of test: 11/09/22 Where was the test performed at?[facility] Did provider dictate result yet? Yes Where were results relayed from in the chart? Labs Tab Caller's Callback #: [phone] Additional Questions/Comments: Patient states that she had [...] Does message need to be routed?Yes-Action Needed GENETICIST documented in this encounter Plan of Treatment Not on file documented as of this encounter Visit Diagnoses Not on filedocumented in this encounter Care Teams Business Services Clerk Relationship Specialty Start Date End Date Trenton Lomeli MD PCP - General Family Medicine 10/06/21 Neelima Velazquez MD [address] [address] Consulting Physician Gynecology 10/06/21 documented as of this encounter
--- OUTSIDE RECORDS SUMMARY | 2024-11-08 11:19 | XMS_ITS | Encounter Summary ---
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 Not on file Not on file documented as of this encounter Plan of Treatment Not on file documented as of this encounter Visit Diagnoses Diagnosis Encounter for medical examination to establish care ACE (nonalcoholic steatohepatitis) Other chronic nonalcoholic liver disease Essential hypertension Unspecified essential hypertension documented in this encounter Care Teams Card Feeder Relationship Specialty Start Date End Date Trenton Lomeli MD PCP - General Family Medicine 10/06/21 Neelima Velazquez MD [address] [address] Consulting Physician Gynecology 10/06/21 documented as of this encounter
--- OUTSIDE RECORDS SUMMARY | 2024-11-08 11:19 | XMS_ITS | Encounter Summary ---
Author Organization [facility] Healthcare Address [address] [place] [address] Care Team Providers Care Nurse Anesthesia Program Director Name Role Phone Referring, Unknown MD Primary Care Provider Unav ailable Encounter Details Date Type Department Care Team (Late st Contact Info) Description 06/04/2017 1:06 PM CDT - 06/05/2017 1:59 AM CDT Emergency [facility] Emergency Department [address] [place] [address] Unknown, Notinfile Discharge Disposition: Discharge to home or self care Social History Tobacco Use Types Packs/Day Years Used Date Smoking Tobacco: Never Alcohol Use Standard Drinks/Week Comments No 0 (1 standard drink = 0.6 oz pur e alcohol) Comments Unknown Sex and Gender Information Value Date Recorded Sex Assigned at Not on file Legal Sex Female 4:15 AM 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 MANAGER Gender Identity Not on file Sexual [...] 7:38 PM CDT) HCG, ur, POC Negative [facility] Urine 06/04/2017 7:38 PM CDT 06/05/2017 7:14 AM CDT Rose Marie Rutledge MD LAB BLOOD ORDERABLES Final Re sult [facility] Department [place] [address] * Urinalysis reflex to microscopic (06/04/2017 6:43 PM CDT) Color, ur Yellow Yellow [facility] Clarity, ur Clear Clear [facility] Specific gravity, ur 1.030 1.003 - 1.030 [facility] pH, ur 5.0 5.0 - 8.0 [facility] Albumin, ur Negative Trace [facility] Glucose, ur ql Negative Negative [facility] Ketones, ur Negative Negative [facility] Bilirubin, ur Negative Negative [facility] Blood, ur Negative Negative [facility] Urobilinogen, ur <2.0 <2.0 mg/dL [facility] Nitrites, ur Negative Negative [facility] Leukocyte esterase, ur Negative Negative [facility] Urine 06/04/2017 6:43 PM CDT 06/04/2017 7:46 PM CDT Rose Marie Rutledge MD LAB URINE ORDERABLES Final Re sult Performing Organization Address [facility] de Phone Number [facility] Department [place] [address] * Basic metabolic panel (06/04/2017 6:43 PM CDT) Pathologist [facility] Sodium 140 135 - 145 mmol/L [facility] Potassium, pl 3.7 3.3 - 4.9 mmol/L [facility] Chloride 103 97 - 110 mmol/L [facility] CO2 24 22 - 32 mmol/L [facility] BUN 10 8 - 25 mg/dL [facility] Glucose 104 70 - 199 mg/dL [facility] Creatinine 0.68 0.60 - 1.10 mg/dL [facility] Calcium 9.3 8.5 - 10.3 mg/dL [facility] Anion gap 13 2 - 15 mmol/L [facility] Blood specimen (specimen) 06/04/2017 6:43 PM CDT 06/04/2017 7:03 PM CDT Rose Marie Rutledge MD LAB BLOOD ORDERABLES Edited R esult - Final Performing Organization Address [facility] de Phone Number [facility] Department [place] [address] * (ABNORMAL) Differential, auto (06/04/2017 6:43 PM CDT) [facility] Neutrophil pct 57.8 % [facility] Imm gran pct 0.3 % [facility] Lymphocyte pct 33.8 % [facility] Monocyte pct 5.9 % [facility] Eosinophil pct 1.4 % [facility] Basophil pct 0.8 % [facility] Neutrophil abs 5.93 1.70 - 6.50 K/cumm [facility] Imm gran abs 0.03 0.00 - 0.10 K/cumm [facility] Lymphocyte abs 3.47(H) 0.80 - 3.30 K/cumm [facility] Monocyte abs 0.61 0.20 - 0.80 K/cumm [facility] Eosinophil abs 0.14 0.00 - 0.50 K/cumm [facility] Basophil abs 0.08 0.00 - 0.10 K/cumm [facility] Blood specimen (specimen) 06/04/2017 6:43 PM CDT 06/04/2017 7:03 PM CDT us Rose Marie Rutledge MD LAB BLOOD ORDERABLES Final Re sult [facility] Department [place] [address] * (ABNORMAL) CBC with auto differential (06/04/2017 6:43 PM CDT) [facility] WBC 10.26(H) 3.80 - 9.90 K/cumm [facility] RBC 4.92 3.90 - 5.20 M/cumm [facility] Hgb 13.8 11.9 - 15.5 g/dL [facility] Hct 42.7 35.6 - 45.5 % [facility] MCV 86.8 81.3 - 96.4 fL [facility] MCH 28.0 27.1 - 33.3 pg [facility] MCHC 32.3 32.3 - 35.7 g/dL [facility] RDW CV 12.8 11.1 - 14.9 % [facility] RDW SD 40.6 35.7 - 48.1 fL [facility] Plt 341 150 - 400 K/cumm [facility] MPV 9.3 9.1 - 12.3 fL [facility] NRBC 0.0 0.0 - 0.2 % [facility] NRBC abs 0.00 0.00 - 0.01 K/cumm [facility] Blood specimen (specimen) 06/04/2017 6:43 PM CDT 06/04/2017 7:03 PM CDT Rose Marie Rutledge MD LAB BLOOD ORDERABLES Final Re sult [facility] Department [place] [address] documented in this encounter Visit Diagnoses Not on filedocumented in this encounter Care Teams Nurse Anesthesia Program Director Relationship Specialty Start Date End Date Referring, Unknown, PCP - General 06/04/17 08/04/17 documented as of this encounter
--- OUTSIDE RECORDS SUMMARY | 2024-11-08 11:19 | XMS_ITS | Encounter Summary ---
Author Organization [facility] Address [address] [address] Care Team Providers Care Top Loader Name Role Phone Trenton Lomeli MD Primary Care Provider [phone] Neelima Velazquez MD Unavailable [phone] Reason for Visit * Reason Comments URI Seen on 10/03/22 give n amox, symptoms no better- Yellow snot, congestion, fever (99-100). 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 Not on file Not on file Not on file documented as of this encounter Last Filed Vital Signs Vital Sign Reading Time Taken Comments Blood Pressure 142/85 10/22/2022 2:23 PM BACK SIZER Pulse 90 10/22/2022 2:53 PM BACK SIZER Temperature 37.1 ??C (98.8 ??F) 10/22/2022 2:23 PM CS T Respiratory Rate 18 10/22/2022 2:23 PM BACK SIZER Oxygen Saturation 100% 10/22/2022 2:23 PM BACK SIZER Inhaled Oxygen Concentration - - Weight 133.4 kg (294 lb) 10/22/2022 2:23 PM BACK SIZER Height 171.5 cm (5' 7.5 ) 10/22/2022 2:23 PM BACK SIZER Body Mass Index 45.37 10/22/2022 2:23 PM BACK SIZER documented in this encounter Ordered Prescriptions Prescription [...] and frontal sinus tenderness present. Mouth/Throat: Lips: Herreid. Mouth: Mucous membranes are moist. Tongue: Tongue [...] WISDOM TOOTH EXTRACTION Oral Surgery Tooth Extraction [place] Tooth - (Added by TW Conv) Assessment/Plan [...] ask questions, questions answered. Saman Dinero NP SIZER documented in this encounter Plan of Treatment Not on file documented as of this encounter Results * Influenza A/B, RSV, and COVID-19 PCR Nasopharyngeal (10/22/2022 2:31 PM BACK SIZER) Pathologist [facility] COVID-19 RNA Negative Negative [facility] Influenza A RNA Negative Negative [facility] Influenza B RNA Negative Negative [facility] RSV RNA Negative Negative [facility] Comment: Interpretive data: This test is performed using the Rapid Mobile Xpert Xpress CoV-2/Flu/RSV plus assay. This is [...] revised 2021. Nasopharyngeal 10/22/2022 2: 31 PM BACK SIZER 10/22/2022 4:25 PM BACK SIZER Narrative [facility] - 10/22/2022 5:31 PM BACK SIZER Is the Patient experiencing symptoms consistent with COVID?->Yes Date of Symptom Onset->10/01/22 Reason for testing?->Symptomatic Known exposure to confirmed or suspected COVID-19 case?->No Is the patient experiencing any symptoms consistent with COVID (eg. Fever, cough, shortness of breath)?->Yes What is the reason for testing?->Symptoms of COVID-19 in low-risk group (Batched) Saman Dinero NP LAB MICROBIOLOGY - [facility] Final Result [facility] [address] [address] [place] [address] documented in this encounter Visit Diagnoses Diagnosis Acute recurrent maxillary sinusitis- Primary Acute recurrent maxillary sinusitis documented in this encounter Additional Health Concerns Infection Onset Date Last Indicated Resolved Time COVID: Suspected 10/22/2022 10/22/2022 10/22/2022 5:32 PM BACK SIZER documented as of this encounter Care Teams Top Loader Relationship Specialty Start Date End Date Trenton Lomeli MD PCP - General Family Medicine 10/06/21 Neelima Velazquez MD [address] [address] Consulting Physician Gynecology 10/06/21 documented as of this encounter
--- OUTSIDE RECORDS SUMMARY | 2024-11-08 11:19 | XMS_ITS | Encounter Summary ---
Author Organization [facility] Address [address] [address] Care Team Providers Care Technical Operations Manager Name Role Phone Trenton Lomeli MD Primary Care Provider [phone] Neelima Velazquez MD Unavailable [phone] Reason for Visit * Reason Onset Date Comments Call Back 11/13/2022 Encounter Details Date Type Department Care Team (Late st Contact Info) Description 11/13/2022 Telephone [facility] Primary Care at [address] [address] Trenton Lomeli MD [address] [place] [address] [address] [place] [address] Call Back Social History Tobacco [...] on file Legal Sex Female 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 Caller???s Call back #: [phone] Does message need to be routed? Yes-Action Needed AND BEVERAGE ASSISTANT documented in this encounter Plan of Treatment Not on file documented as of this encounter Visit Diagnoses Not on filedocumented in this encounter Care Teams Technical Operations Manager Relationship Specialty Start Date End Date Trenton Lomeli MD PCP - General Family Medicine 10/06/21 Neelima Velazquez MD [address] [address] Consulting Physician Gynecology 10/06/21 documented as of this encounter
--- OUTSIDE RECORDS SUMMARY | 2024-11-08 11:19 | XMS_ITS | Encounter Summary ---
Author Organization [facility] Healthcare Address [address] [place] [address] Care Team Providers Care Audio Visual Secretary Name Role Phone Trenton Lomeli MD Primary Care Provider [phone] Neelima Velazquez MD Unavailable [phone] Encounter Details Date Type Department Care Team (Latest Contact Info) Description 10/22/2022 2:31 PM AD WRITER - 10/22/2022 11:59 PM AD WRITER Hospital Encounter [facility] [address] [place], [place] [id number] Acute recurrent maxillary sinusitis Discharge Disposition: Discharge [...] on file Legal Sex Female 4:15 AM AD WRITER Gender Identity Not on file Sexual Orientation Not on file 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 Patient should rest, stay hydrated, and take OTC medications as needed. Monitor symptoms and if they worsen follow up with primary care doctoror ER if needed. WRITER documented in this encounter Plan of Treatment Not on file documented as of this encounter Procedures Procedure Name Priority Date/Time Associated Diagnosis Comments INFLUENZA A/B, RSV, AND COVID-19 PCR Routine 10/22/2022 2:31 PM AD WRITER Acute recurrent maxillary sinusitis documented in this encounter Results * Influenza A/B, RSV, and COVID-19 PCR Nasopharyngeal (10/22/2022 2:31 PM AD WRITER) COVID-19 RNA Negative Negative [facility] Influenza A RNA Negative Negative [facility] Influenza B RNA Negative Negative [facility] RSV RNA Negative Negative [facility] Comment: Interpretive data: This test is performed using the Vtrim Xpert Xpress CoV-2/Flu/RSV plus assay. This is [...] revised 2021. Nasopharyngeal 10/22/2022 2: 31 PM AD WRITER 10/22/2022 4:25 PM AD WRITER Narrative [facility] - 10/22/2022 5:31 PM AD WRITER Is the Patient experiencing symptoms consistent with COVID?->Yes Date of Symptom Onset->10/01/22 Reason for testing?->Symptomatic Known exposure to confirmed or suspected COVID-19 case?->No Is the patient experiencing any symptoms consistent with COVID (eg. Fever, cough, shortness of breath)?->Yes What is the reason for testing?->Symptoms of COVID-19 in low-risk group (Batched) Saman Dinero NP LAB MICROBIOLOGY - [facility] Final Result Performing Organization Address City/State/[facility] Co pr Phone Number [place] [address] [address] Department [place] [address] documented in this encounter Visit Diagnoses Diagnosis Acute recurrent maxillary sinusitis documented in this encounter Additional Health Concerns Infection Onset Date Last Indicated Resolved Time COVID: Suspected 10/22/2022 10/22/2022 10/22/2022 5:32 PM AD WRITER documented as of this encounter Care Teams Audio Visual Secretary Relationship Specialty Start Date End Date Trenton Lomeli MD PCP - General Family Medicine 10/06/21 Neelima Velazquez MD [address] [address] Consulting Physician Gynecology 10/06/21 documented as of this encounter
--- OUTSIDE RECORDS SUMMARY | 2024-11-08 11:19 | XMS_ITS | Encounter Summary ---
Author Organization [facility] Healthcare Address [address] [place] [address] Care Team Providers Care Title Curator Name Role Phone Sergo Mackey MD Primary Care Provider [phone] Encounter Details Date Type Department Care Team (Late st Contact Info) Description 08/05/2017 8:19 PM CDT - 08/06/2017 11:31 AM CDT Emergency [facility] Emergency Department [address] [place] [address] Unknown, Notinfile Discharge Disposition: Discharge to home or self care Social History Tobacco Use Types Packs/Day Years Used Date Smoking Tobacco: Never Alcohol Use Standard Drinks/Week Comments No 0 (1 standard drink = 0.6 oz pur e alcohol) Comments Unknown Sex and Gender Information Value Date Recorded Sex Assigned at Not on file Legal 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 ??J Am Sully Cardiol 2012;60:1581-98). Current interpretive data was last revised on 13. Blood specimen (specimen) 08/06/2017 6:00 AM CDT 08/06/2017 6:18 AM CDT Love Ramirez DIATHERMY EQUIPMENT REPAIRER LAB BLOOD ORDERABLES Final Result [facility] Department [place] [address] * XR Chest Pa Lateral 2 Views (08/06/2017 5:53 AM CDT) Anatomical Region Laterality Modality Body, Chest N/A Radiographic Fiona ging 08/06/2017 5:53 AM CDT Narrative 08/06/2017 5:53 AM CDT Tory GANNON M.D. FINAL REPORT The radiology attending physician has personally reviewed this study, and has reviewed and/or edited this written report and agrees with it. ACC# ??Date Time ??Exam [id number] Aug 06, 2017 00:53:00 [id number] Chest 2 views Frontl ??and ??Lat EXAMINATION: [...] ELOISA LOPEZ M.D. on Aug ??2016 ??8:15A [id number] GANNON M.D. FINAL REPORT The radiology attending physician has personally reviewed this study, and has reviewed and/or edited this written report and agrees with it. Attending: ??UNKNOWN, ??NOTINFILE Requesting: ??JAMES, ??LOVE Requesting Fax: ?? Attending Fax: ?? Attending ID: ??[id number] Requesting ID: ??[id number] Report To 1 ID: ??[id number] ? Report To 1 Name: ??, ?? Report To 1 FAX: ?? NextGen Order #: ?? Procedure Note Miscellaneous, Not In File / Provider, MD Misael - 08/06/2017 ELOISA LOPEZ M.D. CARMELITA SHEPARD M.D. FINAL REPORT The radiology attending physician has personally reviewed this study, and has reviewed and/or edited this written report and agrees with it. ACC# Date Time Exam [id number] Aug 06, 2017 00:53:00 [id number] Chest 2 views Frontl and Lat EXAMINATION: [...] LOPEZ M.D. on Aug 06 2017 8:15A [id number] GANNON M.D. FINAL REPORT The radiology attending physician has personally reviewed this study, and has reviewed and/or edited this written report and agrees with it. Attending: UNKNOWN, NOTINFILE Requesting: LOVE RAMIREZ Requesting Fax: Attending Fax: Attending ID: [id number] Requesting ID: [id number] Report To 1 ID: [id number] Report To 1 Name: , Report To 1 FAX: NextGen Order #: us Love Ramirez DIATHERMY EQUIPMENT REPAIRER IMG XR PROCEDURES Final Res ult * Stool culture (08/06/2017 12:44 AM CDT) Direct Specimen Exam Shiga Toxin Testing: Antigen detection assay for Shiga-toxin NEGATIVE for Shiga Toxin 1 and Shiga Toxin 2. [facility] Report Final Report: No growth of enteric bacterial pathogens [facility] Stool (Rectum) 08/06/2017 12 :44 AM CDT 08/06/2017 1:50 AM CDT Narrative [facility] - 08/07/2017 9:47 AM CDT Routine stool cultures include procedures to detect Salmonella, Shigella, Edwardsiella, Aeromonas, Pleisiomonas, Campylobacter, Yersinia, E. coli O157, and Shiga-like toxins. ?? Vibrio is cultured only upon special request. ??If Vibrio is suspected, please call the laboratory at [phone]. Interpretive data was last updated March 08, 2017. Love Ramirez NP LAB MICROBIOLOGY - GENERAL ORDERABLES Final Result Performing Organization Address City/[facility] Co de Phone Number [facility] [place] [address] * Ova and parasite screen (08/06/2017 12:44 AM CDT) Report Final Report: Negative [facility] Stool (Rectum) 08/06/2017 12 :44 AM CDT 08/06/2017 1:50 AM CDT Narrative [facility] - 08/06/2017 1:50 AM CDT This test is an Immunoassay which screens for Cryptosporidium and Giardia only. ??Please request Microscopic OP Exam if comprehensive examination for ova and parasites is required. ?? Current interpretive data was last revised on 04. Love Ramirez NP LAB MICROBIOLOGY - GENERAL ORDERABLES Final Result Performing Organization Address City/[facility]/ZIP Co de Phone Number [facility] [place] [address] * Troponin I (08/06/2017 12:44 AM CDT) Troponin I <0.03 0.00 - 0.03 ng/mL [facility] Comment: Interpretive Data Serial determinations are recommended for the diagnosis of myocardial infarction (Third [place] Definition of Myocardial Infarction. ??J Am Sully Cardiol 2012;60:1581-98). Current interpretive data was last revised on 13. Blood specimen (specimen) 08/06/2017 12:44 AM CDT 08/06/2017 12:50 AM CDT us Love Ramirez DIATHERMY EQUIPMENT REPAIRER LAB BLOOD ORDERABLES Final Result Performing Organization Address City/[facility] Co de Phone Number [facility] [place] [address] * VRE culture, surveillance (08/06/2017 12:37 AM CDT) Report Final Report: Negative [facility] Stool 08/06/2017 12:3 7 AM CDT 08/07/2017 12:11 AM CDT Narrative [facility] - 08/08/2017 9:02 AM CDT us Notinfile Unknown LAB MICROBIOLOGY - GENERAL ORD ERABLES Final Result Performing Organization Address [facility] Co de Phone Number [facility] [place] [address] * Clostridium difficile assay (08/06/2017 12:37 AM CDT) Report Final Report: Negative for: Clostridium difficile toxin. [facility] Stool 08/06/2017 12:3 7 AM CDT 08/06/2017 1:51 AM CDT Narrative [facility] - 08/06/2017 1:52 AM CDT us Notinfile Unknown LAB MICROBIOLOGY - GENERAL ORD ERABLES Final Result Performing Organization Address City/[facility] Co de Phone Number [facility] [place] [address] * DISCHARGE LABORATORY CUMULATIVE REPORT (08/06/2017 12:00 AM CDT) Narrative 08/06/2017 12:00 AM CDT Ordered by an unspecified provider. Historical Provider MD LAB BLOOD ORDERABLES Diann l Result * Differential, auto (08/05/2017 10:08 PM CDT) Neutrophil pct 67.7 % [facility] Imm gran pct 0.3 % [facility] Lymphocyte pct 23.4 % [facility] Monocyte pct 6.1 % [facility] Eosinophil pct 2.0 % [facility] Basophil pct 0.5 % [facility] Neutrophil abs 5.86 1.70 - 6.50 K/cumm [facility] Imm gran abs 0.03 0.00 - 0.10 K/cumm [facility] Lymphocyte abs 2.03 0.80 - 3.30 K/cumm [facility] Monocyte abs 0.53 0.20 - 0.80 K/cumm [facility] Eosinophil abs 0.17 0.00 - 0.50 K/cumm [facility] Basophil abs 0.04 0.00 - 0.10 K/cumm [facility] Blood specimen (specimen) 08/05/2017 10:08 PM CDT 08/05/2017 10:29 PM CDT Love Ramirez NP LAB BLOOD ORDERABLES Final Result [facility] Department [place] [address] * CBC with auto differential (08/05/2017 10:08 PM CDT) WBC 8.66 3.80 - 9.90 K/cumm [facility] RBC 4.56 3.90 - 5.20 M/cumm [facility] Hgb 12.9 11.9 - 15.5 g/dL [facility] Hct 39.5 35.6 - 45.5 % [facility] MCV 86.6 81.3 - 96.4 fL [facility] MCH 28.3 27.1 - 33.3 pg [facility] MCHC 32.7 32.3 - 35.7 g/dL [facility] RDW CV 12.5 11.1 - 14.9 % [facility] RDW SD 39.5 35.7 - 48.1 fL [facility] Plt 311 150 - 400 K/cumm [facility] MPV 9.1 9.1 - 12.3 fL [facility] NRBC 0.0 0.0 - 0.2 % [facility] NRBC abs 0.00 0.00 - 0.01 K/cumm [facility] Blood specimen (specimen) 08/05/2017 10:08 PM CDT 08/05/2017 10:29 PM CDT us Love Ramirez NP LAB BLOOD ORDERABLES Final Result Performing Organization Address [facility] de Phone Number [facility] Department [place] [address] * Basic metabolic panel (08/05/2017 9:37 PM CDT) [facility] Sodium 141 135 - 145 mmol/L [facility] Potassium, pl 3.9 3.3 - 4.9 mmol/L [facility] Chloride 104 97 - 110 mmol/L [facility] CO2 25 22 - 32 mmol/L [facility] BUN 8 8 - 25 mg/dL [facility] Glucose 99 70 - 199 mg/dL [facility] Creatinine 0.70 0.60 - 1.10 mg/dL [facility] Calcium 9.6 8.5 - 10.3 mg/dL [facility] Anion gap 12 2 - 15 mmol/L [facility] Blood specimen (specimen) 08/05/2017 9:37 PM CDT 08/05/2017 9:42 PM CDT us Jerson Hernandez MD LAB BLOOD ORDERABLES Diann l Result Performing Organization Address [facility] Co de Phone Number [facility] [place] Department [place] [address] documented in this encounter Visit Diagnoses Not on filedocumented in this encounter Care Teams Title Curator Relationship Specialty Start Date End Date Sergo Mackey MD [address] [place] [address] PCP - General 08/05/17 10/05/21 documented as of this encounter
--- OUTSIDE RECORDS SUMMARY | 2024-11-08 11:19 | XMS_ITS | Encounter Summary ---
Author Organization [facility] Address [address] [address] Care Team Providers Care Office Helper Clerical Name Role Phone Trenton Lomeli MD Primary Care Provider [phone] Neelima Velazquez MD Unavailable [phone] Reason for Visit * Reason Comments New Patient new patient Encounter Details Date Type Department Care Team (Late st Contact Info) Description 10/06/2021 2:15 PM SERVICE CENTER SUPERVISOR Office Visit [facility] Primary Care at [address] [address] Trenton Lomeli MD [address] [place] [address] [address] [place] [address] Encounter for medical examination to [...] on file Legal Sex Female 4:15 AM SERVICE CENTER SUPERVISOR Gender Identity Not on file Sexual Orientation Not on file 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 Not on file Not on file Not on file documented as of this encounter Last Filed Vital Signs Vital Sign Reading Time Taken Comments Blood Pressure 120/80 10/06/2021 1:55 PM SERVICE CENTER SUPERVISOR Pulse 110 10/06/2021 1:55 PM SERVICE CENTER SUPERVISOR Temperature 36.6 ??C (97.8 ??F) 10/06/2021 1:55 PM CS T Respiratory Rate 16 10/06/2021 1:55 PM SERVICE CENTER SUPERVISOR Oxygen Saturation 98% 10/06/2021 1:55 PM SERVICE CENTER SUPERVISOR Inhaled Oxygen Concentration - - Weight 120.7 kg (266 lb) 10/06/2021 1:55 PM SERVICE CENTER SUPERVISOR Height 170.2 cm (5' 7 ) 10/06/2021 1:55 PM SERVICE CENTER SUPERVISOR Body Mass Index 41.66 10/06/2021 1:55 PM SERVICE CENTER SUPERVISOR documented in this encounter Patient Instructions * Patient Instructions* Trenton Lomeli MD - 10/06/2021 2:15 PM SERVICE CENTER SUPERVISOR Images from the original note were [...] of viruses cause the flu. The viruses change number operator time, so new vaccines are made each [...] could distract you and cause an accident. disaster recovery manager if you need to make a call [...] refuse treatment. The above information is an family service aide only. It is not intended as medical advice for individual conditions or treatments. Talk to your doctor, nurse or pharmacist before following any medical regimen to see if it is safe and effective for you. ?? 2017 [employer] Information is for End User's use only and may not be sold, redistributed or otherwise used for commercial purposes. All illustrations and images included in CareNotes?? are the copyrighted property of [employer]. or [employer]. Thanks for coming in today! My medical assistants and I are thankful you have trusted us with your care, and hope that you received EXCELLENT care today! Please do not hesitate to call if you have any questions or concerns at [phone]. You may receive a phone call, text, MYCHART message, or e-mail asking about your care today. We would love to hear your feedback on how EXCELLENT your care wastoday! Wishing you better health, always. Dr. Lomeli ICE CENTER SUPERVISOR documented in this encounter Progress Notes [...] WISDOM TOOTH EXTRACTION Oral Surgery Tooth Extraction [place] Tooth - (Added by TW Conv) Family [...] - TSH reflex to free T4; Future ICE CENTER SUPERVISOR documented in this encounter Miscellaneous Notes * Assessment & Plan Note - Trenton Lomeli MD - 10/08/2021 2:56 PM SERVICE CENTER SUPERVISOR Associated Problem(s): Well adult exam A [...] These have been ordered/arranged unless otherwise indicated. ICE CENTER SUPERVISOR ICE CENTER SUPERVISOR documented in this encounter Plan of Treatment Not on file documented as of this encounter Results * TSH reflex to free T4 (10/06/2021 2:39 PM SERVICE CENTER SUPERVISOR) TSH 0.84 0.30 - 4.20 mcIUnit/mL [facility] Blood 10/06/2021 2:39 PM SERVICE CENTER SUPERVISOR 10/06/2021 7:52 PM SERVICE CENTER SUPERVISOR Trenton Lomeli MD LAB BLOOD ORDERABLES Final Result Performing Organization Address City/State/ZIP [place] Phone Number [facility] [address] [address] Department [place] [address] * (ABNORMAL) Lipid panel (10/06/2021 2:39 PM SERVICE CENTER SUPERVISOR) Cholesterol 147 30 - 199 mg/dL [...] 6 [facility] Blood 10/06/2021 2:39 PM SERVICE CENTER SUPERVISOR 10/06/2021 7:52 PM SERVICE CENTER SUPERVISOR us Trenton Lomeli MD LAB BLOOD ORDERABLES Final Result [facility] [address] [address] Department [place] [address] * (ABNORMAL) Comprehensive metabolic panel (10/06/2021 2:39 PM SERVICE CENTER SUPERVISOR) Sodium 141 135 - 145 mmol/L [...] Units/L [facility] Blood 10/06/2021 2:39 PM SERVICE CENTER SUPERVISOR 10/06/2021 7:52 PM SERVICE CENTER SUPERVISOR us Trenton Lomeli MD LAB BLOOD ORDERABLES Final Result Performing Organization Address City/State/[place] Phone Number [facility] [address] [address] Department [place] [address] * (ABNORMAL) CBC with auto differential (10/06/2021 2:39 PM SERVICE CENTER SUPERVISOR) WBC 5.6 3.8 - 9.9 K/cumm [facility] Hgb 13.6 11.9 - 15.5 g/dL [facility] Hct 42.7 35.6 - 45.5 % [facility] Plt 338 150 - 400 K/cumm [facility] MPV 9.5 9.1 - 12.3 fL [facility] RBC 4.83 3.90 - 5.20 M/cumm [facility] MCV 88.4 81.3 - 96.4 fL [facility] MCH 28.2 27.1 - 33.3 pg [facility] MCHC 31.9(L) 32.3 - 35.7 g/dL [facility] RDW CV 12.9 11.1 - 14.9 % [facility] RDW SD 41.9 35.7 - 48.1 fL [facility] NRBC abs 0.00 0.00 - 0.01 K/cumm [facility] Blood 10/06/2021 2:39 PM SERVICE CENTER SUPERVISOR 10/06/2021 7:52 PM SERVICE CENTER SUPERVISOR us Trenton Lomeli MD LAB BLOOD ORDERABLES Final Result [facility] [address] [address] Department [place] [address] documented in this encounter Visit Diagnoses Diagnosis [...] 08/10/2022 added in this encounter Care Teams Office Helper Clerical Relationship Specialty Start Date End Date Trenton Lomeli MD PCP - General Family Medicine 10/06/21 Neelima Velazquez MD [address] [address] Consulting Physician Gynecology 10/06/21 documented as of this encounter
== END 2024-11-01 19:59 | disposition home or self-care (01) ==
PROVIDERS: Physician Assistant; Emergency Provider Student in an Organized Health Care Education/Training Program; PCP Family Medicine
DX: R19.7 Diarrhea, unspecified (principal); R00.9 Unspecified abnormalities of heart beat; T47.6X5A Adverse effect of antidiarrheal drugs, initial encounter; Z20.822 Contact with and (suspected) exposure to COVID-19; I10 Essential (primary) hypertension; E28.2 Polycystic ovarian syndrome; E66.01 Morbid (severe) obesity due to excess calories; Z68.41 Body mass index [BMI] 40.0-44.9, adult; K58.9 Irritable bowel syndrome, unspecified; Z87.891 Personal history of nicotine dependence
CPT/HCPCS: 36415; 80053; 81001; 81025; 83690; 83735; 84443; 85025; 87045; 87086; 87427; 87449; 87491; 87493; 87591; 87637; 87661; 93005; 96361; 96374; 99284; A9270; J2405; J7030

== ENCOUNTER 2024-11-03 12:45 | Emergency (ER) | payer BC, SELFPAY ==
[2024-11-03 12:55] VITALS: BP 143/85; PULSE 84; RESP 16; TEMP 36.6; O2SAT 100
--- NOTE | 2024-11-03 13:18 | PC.NURSE ---
Pt. states I'm sorry, I can't wait this long. Pt. A&Ox4 and ambulatory. Pt. seen walking out of ER.
== END 2024-11-03 14:21 | disposition left against medical advice (07) ==
PROVIDERS: PCP Family Medicine
DX: R55 Syncope and collapse (principal)
CPT/HCPCS: 99199

== ENCOUNTER 2024-11-04 13:31 | Emergency (ER) | payer BC, SELFPAY ==
--- NOTE | 2024-11-04 14:14 | PC.NURSE ---
Checking on patient's in [place] and patient reports that she would like an EKG completed due to now experiencing new onset chest pain. EKG order placed at this time.
--- NOTE | 2024-11-04 14:15 | ECG_ITS ---
Test Date: 2024-11-04 14:20:09 Measurements Intervals [place] Rate: 91 P: 28 NC: 149 QRS: -1 QRSD: 91 T: 14 QT: 343 QTc: 424 Interpretive Statements SINUS RHYTHM WITH SINUS ARRHYTHMIA MODERATE VOLTAGE CRITERIA FOR LVH, CONSIDER NORMAL VARIANT [MEETS CRITERIA IN ONE OF: R(aVL), S(V1), R(V5), R(V5/V6)+S(V1)] NONSPECIFIC T WAVE ABNORMALITY Compared to ECG 11/01/2024 13:33:01 NO SIGNIFICANT CHANGES Electronically Signed On 11-08-2024 15:50:11 [employer] ADVISOR LEAD by David Davis M.D.
[2024-11-04 14:20] VITALS: BP 150/105; PULSE 99; RESP 18; TEMP 36.7; O2SAT 99
--- NOTE | 2024-11-04 17:54 | PC.NURSE ---
Patient requested resources for outpatient chestnut services and reports that she is feeling better and is going to use the outpatient services that were provided to her. patient leaves ED without difficulty and in no distress.
--- OUTSIDE RECORDS SUMMARY | 2024-11-11 20:34 | XMS_ITS | Encounter Summary ---
Author Organization [facility] Address [address] [place] [address]. [place], [place] [address] [place] [address] Care Team Providers Care Inventory Manager Name Role Phone Sergo Mackey MD Primary Care Provider Julian short Encounter Details Date Type Department Care Team (Latest Contact Info) Description 08/10/2017 Abstract [facility] Medical Group Social History Tobacco Use Types [...] filedocumented in this encounter Care Teams Inventory Manager Relationship Specialty Start Date End Date Sergo Mackey MD PCP - General 04/07/17 documented as of this encounter
--- OUTSIDE RECORDS SUMMARY | 2024-11-11 20:34 | XMS_ITS | Encounter Summary ---
Author Organization [facility] Address [address] [place] [address]. [place], [place] [address] [place] [address] Care Team Providers Care Laundrette Owner Name Role Phone Sergo Mackey MD Primary Care Provider Julian short Encounter Details Date Type Department Care Team (Latest Contact Info) Description 08/10/2018 Abstract [facility] Medical Group James Luther MD Social History [...] on filedocumented in this encounter Care Teams Laundrette Owner Relationship Specialty Start Date End Date Sergo Mackey MD PCP - General 04/07/17 documented as of this encounter
--- OUTSIDE RECORDS SUMMARY | 2024-11-11 20:34 | XMS_ITS | Encounter Summary ---
Author Organization [facility] Address [address] [place] [address]. [place] [address] [place] [address] Care Team Providers Care Senior Shipping Clerk Name Role Phone Sergo Mackey MD Primary Care Provider Julian short Encounter Details Date Type Department Care Team (Latest Contact Info) Description 04/21/2017 Abstract [facility] Medical Group [...] Mackey Task Name: Follow Up Assigned To: [facility] Team Narendra Regarding Patient: Alia Fabian, Status: [...] Fariba Garvey MA; Apr 21 2017 12:19PM INSTITUTIONAL COOK (Author) * James Pineda Md, MD - 04/21/2017 12:19 PM CDT Message Recorded as Task Date: 04/16/2017 02:39 PM, Created By: Carmela Haynes Task Name: Medical Complaint Callback Assigned To: [facility] Team Narendra Regarding Patient: Alia Fabian, Status: In Progress Comment: Carmela Haynes - 16 Apr 2017 2:39 PM TASK CREATED Caller: Lay, Parent; (Day); Lay (patients mother) calling about the Results of CT done at [place] on 04/12/17. CB# [phone] or [phone] Jovanni Omalley - 16 Apr 2017 3:09 PM TASK EDITED mother informed we do not have results yet Message: patient notified -sjs Signatures Electronically signed by : Fariba Garvey MA; Apr 21 2017 12:19PM INSTITUTIONAL COOK (Author) documented in this encounter Plan of Treatment Not on file documented as of this encounter Visit Diagnoses Not on filedocumented in this encounter Care Teams Senior Shipping Clerk Relationship Specialty Start Date End Date Sergo Mackey MD PCP - General 04/07/17 documented as of this encounter
--- OUTSIDE RECORDS SUMMARY | 2024-11-11 20:34 | XMS_ITS | Encounter Summary ---
Author Organization [facility] - [facility] Address [address] [place] [address]. [place], [place] [address] [place] [address] Care Team Providers Care Cider Press Operator Name Role Phone Sergo Mackey MD Primary Care Provider Julian short Encounter Details Date Type Department Care Team (Latest Contact Info) Description 09/16/2017 Abstract [facility] Medical Group Social History Tobacco [...] on filedocumented in this encounter Care Teams Cider Press Operator Relationship Specialty Start Date End Date Sergo Mackey MD PCP - General 04/07/17 documented as of this encounter
--- OUTSIDE RECORDS SUMMARY | 2024-11-11 20:34 | XMS_ITS | Encounter Summary ---
Author Organization [facility] Address [address] [place] [address]. [place] [address] [place] [address] Care Team Providers Care Dandy Tender Name Role Phone Sergo Mackey MD Primary Care Provider Julian short Encounter Details Date Type Department Care Team (Latest Contact Info) Description 07/15/2017 Abstract [facility] Medical Group Social History Tobacco Use [...] ORDER MAILED ---NK Verified Results LC-Vitamin B12 [id number] 01:54PM Sergo Mackey Test Name Result Flag Reference Vitamin B12 580 pg/mL 211-946 LC-Vitamin D, 25-Hydroxy [id number] 01:54PM Sergo Mackey Test Name Result Flag Reference Vitamin D, 25-Hydroxy 15.7 ng/mL L 30.0-100.0 Vitamin D deficiency has been defined by the [place] of [employer] and an Endocrine Society practice guideline as a level of serum 25-OH vitamin D less than 20 ng/mL (1,2). The Endocrine Society went on to further define vitamin D insufficiency as a level between 21 and 29 ng/mL (2). 1. IOM ([place] of [employer]). 2010. Dietary reference intakes for [...] eight weeks Signatures Electronically signed by : Bereniec Braone MA; Jul 15 2017 3:52PM EDGE RUNNER (Author) documented in this encounter Plan of Treatment Not on file documented as of this encounter Visit Diagnoses Not on filedocumented in this encounter Care Teams Dandy Tender Relationship Specialty Start Date End Date Sergo Mackey MD PCP - General 04/07/17 documented as of this encounter
--- OUTSIDE RECORDS SUMMARY | 2024-11-11 20:34 | XMS_ITS | Encounter Summary ---
Author Organization [facility] Address [address] [place] [address]. [place], [place] [address] [place] [address] Care Team Providers Care Manager Battery Name Role Phone Sergo Mackey MD Primary Care Provider Julian short Encounter Details Date Type Department Care Team (Latest Contact Info) Description 04/11/2017 Abstract [facility] Medical Group Social History Tobacco Use [...] Bilirubin Negative Ketones 5 mg/dL-Trace A Specific [place] 1.020 Blood Negative pH 7.0 5.0 - [...] Eloisa Wolfe R.N.; Apr 12 2017 8:14AM MARKETING TRAFFIC COORDINATOR (Author) documented in this encounter Plan of Treatment Not on file documented as of this encounter Visit Diagnoses Not on filedocumented in this encounter Care Teams Manager Battery Relationship Specialty Start Date End Date Sergo Mackey MD PCP - General 04/07/17 documented as of this encounter
--- OUTSIDE RECORDS SUMMARY | 2024-11-11 20:34 | XMS_ITS | Encounter Summary ---
Author Organization [facility] Address [address] [place] [address]. [place], [place] [address] [place] [address] Care Team Providers Care Community Living Instructor Name Role Phone Sergo Mackey MD Primary Care Provider Julian short Encounter Details Date Type Department Care Team (Latest Contact Info) Description 09/06/2018 Scan [facility] Medical Group James Luther MD Social History [...] on filedocumented in this encounter Care Teams Community Living Instructor Relationship Specialty Start Date End Date Sergo Mackey MD PCP - General 04/07/17 documented as of this encounter
--- OUTSIDE RECORDS SUMMARY | 2024-11-11 20:34 | XMS_ITS | Encounter Summary ---
Author Organization [facility] - [facility] Address [address] [place] [address]. [place], [place] [address] [place] [address] Care Team Providers Care Hat Cone Inspector Name Role Phone Sergo Mackey MD Primary Care Provider Julian short Encounter Details Date Type Department Care Team (Latest Contact Info) Description 09/02/2017 Abstract [facility] Medical Group Social History [...] on filedocumented in this encounter Care Teams Hat Cone Inspector Relationship Specialty Start Date End Date Sergo Mackey MD PCP - General 04/07/17 documented as of this encounter
--- OUTSIDE RECORDS SUMMARY | 2024-11-11 20:34 | XMS_ITS | Clinical Summary ---
Author Organization [facility] Address [address] [place] [address]. [place] [address] [place] [address] Care Team Providers Care Communications Equipment Supervisor Name Role Phone Sergo Mackey MD [...] age to complete this topic Care Teams Communications Equipment Supervisor Relationship Specialty Start Date End Date Sergo Mackey MD PCP - General 04/07/17
--- OUTSIDE RECORDS SUMMARY | 2024-11-11 20:34 | XMS_ITS | Encounter Summary ---
Author Organization [facility] Address [address] [place] [address]. [place], [place] [address] [place] [address] Care Team Providers Care Client Hr Manager Name Role Phone Sergo Mackey MD Primary Care Provider Julian short Encounter Details Date Type Department Care Team (Latest Contact Info) Description 08/30/2017 Abstract [facility] Medical Group Social [...] filedocumented in this encounter Care Teams Client Hr Manager Relationship Specialty Start Date End Date Sergo Mackey MD PCP - General 04/07/17 documented as of this encounter
--- OUTSIDE RECORDS SUMMARY | 2024-11-11 20:34 | XMS_ITS | Encounter Summary ---
Author Organization [facility] - [facility] Address [facility] [facility]. [place], [place] [address] [place] [address] Care Team Providers Care Manager Data Center Name Role Phone Sergo Mackey MD Primary Care Provider Julian short Encounter Details Date Type Department Care Team (Latest Contact Info) Description 08/23/2017 Abstract [facility] Medical Group Social History Tobacco [...] Jovanni Omalley MA; Aug 23 2017 9:39AM CONCRETE STONE FINISHING SUPERVISOR (Author) documented in this encounter Plan of Treatment Not on file documented as of this encounter Visit Diagnoses Not on filedocumented in this encounter Care Teams Manager Data Center Relationship Specialty Start Date End Date Sergo Mackey MD PCP - General 04/07/17 documented as of this encounter
--- OUTSIDE RECORDS SUMMARY | 2024-11-11 20:34 | XMS_ITS | Encounter Summary ---
Author Organization [facility] Address [address] [place] [address]. [place], [place] [address] [place] [address] Care Team Providers Care Internist Medical Doctor Md Name Role Phone Sergo Mackey MD Primary Care Provider Julian short Encounter Details Date Type Department Care Team (Latest Contact Info) Description 05/12/2017 Abstract [facility] Medical Group Social History Tobacco [...] on filedocumented in this encounter Care Teams Internist Medical Doctor Md Relationship Specialty Start Date End Date Sergo Mackey MD PCP - General 04/07/17 documented as of this encounter
--- OUTSIDE RECORDS SUMMARY | 2024-11-11 20:34 | XMS_ITS | Encounter Summary ---
Author Organization [facility] Address [facility]. [place], [place] [address] [place] [address] Care Team Providers Care Driver Merchandiser Name Role Phone Sergo Mackey MD Primary Care Provider Julian short Encounter Details Date Type Department Care Team (Latest Contact Info) Description 05/25/2017 Abstract [facility] Medical [...] Task Name: Medical Complaint Callback Assigned To: [facility] [place] Narendra Regarding Patient: Alia Fabian, Status: In Progress Comment: Jaclyn Santana - 25 May 2017 11:21 AM TASK CREATED Caller: Lay, Mother; Medical Complaint; [phone] pt saw neuro Damaris Harding at [place] last Wednesday for weakness in legs, arms, [...] order and wants us to order phone [phone] for neuro pts #[phone] Sergo Mackey - 25 May 2017 11:54 [...] Fariba Garvey MA; May 25 2017 4:34PM ROLLER MAKER (Author) documented in this encounter Plan of Treatment Not on file documented as of this encounter Visit Diagnoses Not on filedocumented in this encounter Care Teams Driver Merchandiser Relationship Specialty Start Date End Date Sergo Mackey MD PCP - General 04/07/17 documented as of this encounter
--- OUTSIDE RECORDS SUMMARY | 2024-11-11 20:34 | XMS_ITS | CONTINUITY OF CARE DOCUMENT ---
Author Name rosario ponce Address Unknown Organization [facility] Address [address] [facility] [address] [place] [address] Phone [phone] Care Team Providers Care Eap Counselor Name Role Phone Balbir JOHNSON, Sophie Unavailable RACHEL JOHNSON, ALYSON Unavailable [phone] INSURANCE PROVIDERS Payer name Policy type / Coverage type [place] red republican ID [facility] [id number]
--- OUTSIDE RECORDS SUMMARY | 2024-11-11 20:34 | XMS_ITS | Encounter Summary ---
Author Organization [facility] Address [address] [place] [address]. [place], [place] [address] [place] [address] Care Team Providers Care First Coat Sander Name Role Phone Sergo Mackey MD Primary Care Provider Julian short Encounter Details Date Type Department Care Team (Latest Contact Info) Description 06/08/2017 Abstract [facility] Medical Group Social History Tobacco Use [...] in this encounter Care Teams First Coat Sander Relationship Specialty Start Date End Date Sergo Mackey MD PCP - General 04/07/17 documented as of this encounter
--- OUTSIDE RECORDS SUMMARY | 2024-11-11 20:34 | XMS_ITS | Encounter Summary ---
Author Organization [facility] - [facility] Address [address] [place] [address]. [place], [place] [address] [place] [address] Care Team Providers Care Teller Supervisor Name Role Phone Sergo Mackey MD Primary Care Provider Julian short Encounter Details Date Type Department Care Team (Latest Contact Info) Description 04/13/2017 Abstract [facility] Medical Group [...] on filedocumented in this encounter Care Teams Teller Supervisor Relationship Specialty Start Date End Date Sergo Mackey MD PCP - General 04/07/17 documented as of this encounter
--- OUTSIDE RECORDS SUMMARY | 2024-11-11 20:34 | XMS_ITS | Encounter Summary ---
Author Organization [facility] Address [address] [place] [address]. [place], [place] [address] [place] [address] Care Team Providers Care Metal Annealer Name Role Phone Sergo Mackey MD Primary Care Provider Julian short Encounter Details Date Type Department Care Team (Latest Contact Info) Description 06/18/[address] [facility] Medical Group Social History Tobacco Use [...] filedocumented in this encounter Care Teams Metal Annealer Relationship Specialty Start Date End Date Sergo Mackey MD PCP - General 04/07/17 documented as of this encounter
--- OUTSIDE RECORDS SUMMARY | 2024-11-11 20:34 | XMS_ITS | Encounter Summary ---
Author Organization [facility] Address [address] [place] [address]. [place], [place] [address] [place] [address] Care Team Providers Care Manager Strategic Marketing Name Role Phone Sergo Mackey MD Primary Care Provider Julian short Encounter Details Date Type Department Care Team (Latest Contact Info) Description 07/13/2017 Abstract [facility] Medical Group Sergo Mackey MD [...] D deficiency has been defined by the [place] of Medicine and an Endocrine Society practice guideline as a level of serum 25-OH vitamin D less than 20 ng/mL (1,2). The Endocrine Society went on to further define vitamin D insufficiency as a level between 21 and 29 ng/mL (2). 1. IOM ([place] of Medicine). 2010. Dietary reference ?? intakes for calcium and D. [place]: The ?? [employer]. 2. Brian MF, Cam PARKINSON, Nereyda [...] filedocumented in this encounter Care Teams Manager Strategic Marketing Relationship Specialty Start Date End Date Sergo Mackey MD PCP - General 04/07/17 documented as of this encounter
--- OUTSIDE RECORDS SUMMARY | 2024-11-11 20:34 | XMS_ITS | Encounter Summary ---
Author Organization [facility] - [facility] Address [address] [place] [address]. [place], [place] [address] [place] [address] Care Team Providers Care Cow Tester Name Role Phone Sergo Mackey MD Primary Care Provider Julian short Encounter Details Date Type Department Care Team (Latest Contact Info) Description 06/29/2017 Abstract [facility] Medical Group Social History [...] on filedocumented in this encounter Care Teams Cow Tester Relationship Specialty Start Date End Date Sergo Mackey MD PCP - General 04/07/17 documented as of this encounter
--- OUTSIDE RECORDS SUMMARY | 2024-11-11 20:34 | XMS_ITS | Encounter Summary ---
Author Organization [facility] - [facility] Address [address] [place] [address]. [place], [place] [address] [place] [address] Care Team Providers Care Value Analyst Name Role Phone Sergo Mackey MD Primary Care Provider Julian short Encounter Details Date Type Department Care Team (Latest Contact Info) Description 08/19/2017 Abstract [facility] Medical Group Social History [...] on filedocumented in this encounter Care Teams Value Analyst Relationship Specialty Start Date End Date Sergo Mackey MD PCP - General 04/07/17 documented as of this encounter
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
--- OUTSIDE RECORDS SUMMARY | 2024-11-11 20:34 | XMS_ITS | Encounter Summary ---
Author Organization [facility] - [facility] Address [address] [place] [address]. [place], [place] [address] [place] [address] Care Team Providers Care Electric Welder Name Role Phone Sergo Mackey MD Primary Care Provider Julian short Encounter Details Date Type Department Care Team (Latest Contact Info) Description 08/27/2017 Abstract [facility] Medical Group Social History Tobacco [...] on filedocumented in this encounter Care Teams Electric Welder Relationship Specialty Start Date End Date Sergo Mackey MD PCP - General 04/07/17 documented as of this encounter
--- OUTSIDE RECORDS SUMMARY | 2024-11-11 20:34 | XMS_ITS | Encounter Summary ---
Author Organization [facility] - [facility] Address [address] [place] [address]. [place], [place] [address] [place] [address] Care Team Providers Care Surgical Orderly Name Role Phone Sergo Mackey MD Primary Care Provider Julian short Encounter Details Date Type Department Care Team (Latest Contact Info) Description 09/07/2017 Abstract [facility] Medical Group [...] on filedocumented in this encounter Care Teams Surgical Orderly Relationship Specialty Start Date End Date Sergo Mackey MD PCP - General 04/07/17 documented as of this encounter
--- OUTSIDE RECORDS SUMMARY | 2024-11-11 20:35 | XMS_ITS | Encounter Summary ---
Author Organization [facility] - [facility] Address [facility]. [place], [place] [address] [place] [address] Care Team Providers Care Title One Reading Teacher Name Role Phone Sergo Mackey MD Primary Care Provider Sergo Duncan MD Primary Care Provider Sergo Duncan MD Primary Care Provider Sergo Duncan MD Primary Care Provider Sergo Duncan MD Primary Care Provider Julian short Encounter Details Date Type Department Care Team (Latest Contact Info) Description 06/19/2016 Abstract [facility] Medical Group Social History Tobacco [...] comes in//af Verified Results CBC W Differential [id number] 03:16PM Sergo Mackey Test Name Result Flag [...] 0.0-1.0 Compr Metabolic Prof ( CMP ) [id number] 03:16PM Sergo Mackey Test Name Result Flag [...] mL/min/1.73m'2 Thyroid Stim Hormone ( TSH ) [id number] 03:16PM Sergo Mackey Test Name Result Flag Reference Thyroid Stim Hormone (TSH) 1.56 mIU/mL 0.27-4.20 Discussion/Summary Labs all good/normal. Was she able to get a list of meds she had tried in the past for her moods? Signatures Electronically signed by : Elsa Rivera, ; Jun 19 2016 12:12PM STEEL SASH ERECTOR (Author) documented in this encounter Plan of Treatment Not on file documented as of this encounter Visit Diagnoses Not on filedocumented in this encounter Care Teams Title One Reading Teacher Relationship Specialty Start Date End Date Sergo Mackey MD PCP - General 04/07/17 Sergo Mackey MD PCP - General 08/05/16 04/06/17 Sergo Mackey MD PCP - General 07/16/16 08/04/16 Sergo Mackey MD PCP - General 07/14/16 07/15/16 Sergo Mackey MD PCP - General 06/16/16 07/13/16 documented as of this encounter
--- OUTSIDE RECORDS SUMMARY | 2024-11-11 20:35 | XMS_ITS | Encounter Summary ---
Author Organization [facility] Address [facility] [address] [place] [address] Care Team Providers Care Tire Curer Name Role Phone Sergo Mackey MD Primary Care Provider Julian short Encounter Details Date Type Department Care Team (Late st Contact Info) Description 04/07/2017 Abstract [facility] Medical Group Family & Internal Medicine [address] [address] Sergo Mackey MD Social History [...] BY MOUTH TWICE DAILY; Therapy: 13Aug2016 to (Evaluate:[id number]) Requested for: 21Sep2016; Last Rx:[id number] Ordered Rx By: Nellie Moy; Dispense: 30 Days ; #:60 Capsule; Refill: 0; For: Abdominal cramping, generalized; JULIANA = N; Print Rx; Last Updated By: Nasty Gal; 09/21/2016 8:25:38 AM 2. ClonazePAM 1 MG Oral Tablet; TAKE 1 TABLET BY MOUTH THREE TIMES DAILY NEEDED; Therapy: 10Sep2016 to (Evaluate:01Feb2017) Requested for: [id number]; Last Rx:[id number] Ordered Rx By: Sergo Mackey; Dispense: 30 Days ; #:90 Tablet; Refill: 1; For: Bipolar mood disorder; JULIANA = N; Print Rx 3. Fluticasone Propionate 50 MCG/ACT Nasal Suspension; USE 2 SPRAYS IEN QD; Therapy: [id number] to (Evaluate:15Apr2017) Requested for: [id number]; Last Rx:[id number] Ordered Rx By: Sergo Mackey; Dispense: 30 Days ; #:1 X 16 GM Bottle; Refill: 0; For: Allergic rhinitis;JULIANA = N; Verified Transmission to [facility] [id number]; Last Updated By: Nasty Gal;03/16/2017 3:38:23 PM Allergies 1. 12 Hour Decongestant [...] In Office; Status:Resulted - Requires Verification; Done: [id number] 12:00AM Last Updated By:Angela Lal; 04/11/2017 9:30:11 AM;Ordered; For:Dysuria; Ordered By:Sergo Mackey; Signatures Electronically signed by : Sergo Mackey M.D.; Apr 11 2017 5:12PM GEOTHERMAL SHEET METAL WORKER (Author) documented in this encounter Plan [...] URINE ORDERABLES Final Result Performing Organization Address [facility] de Phone Number [employer] TO [...] ORDERA BLES Final Result Performing Organization Address [facility] Co de Phone Number [employer] TO EPIC CONVERSION documented in this encounter Visit Diagnoses Not on filedocumented in this encounter Care Teams Tire Curer Relationship Specialty Start Date End Date Sergo Mackey MD PCP - General 04/07/17 documented as of this encounter
--- OUTSIDE RECORDS SUMMARY | 2024-11-11 20:35 | XMS_ITS | Encounter Summary ---
Author Organization [facility] - [facility] Address [facility] [place] [facility]6 [facility]. [place], [place] [address] [place] [address] Care Team Providers Care Toll Patrolman Name Role Phone Sergo Mackey MD Primary Care Provider Sergo Duncan MD Primary Care Provider Sergo Duncan MD Primary Care Provider Julian short Encounter Details Date Type Department Care Team (Latest Contact Info) Description 07/21/2016 Abstract [facility] Medical Group [...] feel free to contact my office at [phone]. Sergo Mackey M.D. Electronically signed by:Fariba Garvey MA Jul 21 2016 4:56PM HEAD GAUGE UNIT OPERATOR Author documented in this encounter Plan of Treatment Not on file documented as of this encounter Visit Diagnoses Not on filedocumented in this encounter Care Teams Toll Patrolman Relationship Specialty Start Date End Date Sergo Mackey MD PCP - General 04/07/17 Sergo Mackey MD PCP - General 08/05/16 04/06/17 Sergo Mackey MD PCP - General 07/16/16 08/04/16 documented as of this encounter
--- OUTSIDE RECORDS SUMMARY | 2024-11-11 20:35 | XMS_ITS | Encounter Summary ---
Author Organization [facility] Address [facility] [place] [address] [place] [address] Care Team Providers Care Kitchen Steward Name Role Phone Sergo Mackey MD Primary Care Provider Sergo Duncan MD Primary Care Provider Julian short Encounter Details Date Type Department Care Team (Latest Contact Info) Description 03/22/2017 Abstract [facility] Medical Group Social History [...] Mackey Task Name: Follow Up Assigned To: [facility] Team Narendra Regarding Patient: Alia Fabian, Status: In Progress Comment: Sergo Mackey - 19 Mar 2017 8:53 AM TASK CREATED Our routine labs (cbc, cmp, tsh) are all good/normal. Await lab results from shellfish harvester. Fariba Garvey - 19 Mar 2017 8:55 AM TASK IN PROGRESS Fariba Garvey - 19 Mar 2017 8:56 AM TASK EDITED [id number] Jovanni Omalley - 22 Mar 2017 2:38 PM TASK EDITED pt informed and voiced understanding Signatures Electronically signed by : Jovanni Omalley MA; Mar 22 2017 2:38PM EDGING CATCHER (Author) documented in this encounter Plan of Treatment Not on file documented as of this encounter Visit Diagnoses Not on filedocumented in this encounter Care Teams Kitchen Steward Relationship Specialty Start Date End Date Sergo Mackey MD PCP - General 04/07/17 Sergo Mackey MD PCP - General 08/05/16 04/06/17 documented as of this encounter
--- OUTSIDE RECORDS SUMMARY | 2024-11-11 20:35 | XMS_ITS | Encounter Summary ---
Author Organization [facility] - [facility] Address [facility]. [place], [place] [address] [place] [address] Care Team Providers Care Welcome Desk Agent Name Role Phone Sergo Mackey MD Primary Care Provider Sergo Duncan MD Primary Care Provider Julian short Encounter Details Date Type Department Care Team (Latest Contact Info) Description 11/20/2016 Abstract [facility] Medical Group Social History Tobacco [...] by:Fariba Garvey MA Nov 20 2016 12:01PM SENIOR SOFTWARE QA ANALYST Author documented in this encounter Plan of Treatment Not on file documented as of this encounter Visit Diagnoses Not on filedocumented in this encounter Care Teams Welcome Desk Agent Relationship Specialty Start Date End Date Sergo Mackey MD PCP - General 04/07/17 Sergo Mackey MD PCP - General 08/05/16 04/06/17 documented as of this encounter
--- OUTSIDE RECORDS SUMMARY | 2024-11-11 20:35 | XMS_ITS | Encounter Summary ---
Author Organization [facility] Address [address] [place] [address]. [place], [place] [address] [place] [address] Care Team Providers Care Director Energy Name Role Phone Sergo Mackey MD Primary Care Provider Sergo Duncan MD Primary Care Provider Julian short Encounter Details Date Type Department Care Team (Latest Contact Info) Description 12/08/2016 Abstract [facility] Medical Group Sergo Mackey MD Social History [...] filedocumented in this encounter Care Teams Director Energy Relationship Specialty Start Date End Date Sergo Mackey MD PCP - General 04/07/17 Sergo Mackey MD PCP - General 08/05/16 04/06/17 documented as of this encounter
--- OUTSIDE RECORDS SUMMARY | 2024-11-11 20:35 | XMS_ITS | Encounter Summary ---
Author Organization [facility] Address [address] [place] [address]. [place] [address] [place] [address] Care Team Providers Care Personal Lines Account Manager Name Role Phone Sergo Mackey MD Primary Care Provider Sergo Duncan MD Primary Care Provider Sergo Duncan MD Primary Care Provider Sergo Duncan MD Primary Care Provider Sergo Duncan MD Primary Care Provider Julian short Encounter Details Date Type Department Care Team (Late st Contact Info) Description 06/30/2016 Abstract [facility] Medical Group Family & Internal Medicine [address] [address] Sergo Mackey MD Social History [...] Verified Results *Urine dip auto In Office [id number] 02:45PM Sergo Mackey Test Name Result Flag Reference Color Yellow Clarity Clear Glucose Negative Bilirubin Negative Ketones Negative Specific [place] 1.015 Blood Negative pH 5.5 5.0 - [...] Eloisa Wolfe R.N.; Jul 02 2016 9:06AM FELT CUTTING MACHINE OPERATOR (Author) * Sergo Mackey MD - 06/30/2016 [...] DAILY NEEDED ; Therapy: 10Apr2014 to (Last Rx:[id number]) Ordered Rx By: Sergo Mackey; Dispense: 0 Days ; #:90 Tablet; Refill: 0; For: Palpitations; JULIANA = N; Print Rx; Last Updated By: Fariba Garvey; 06/16/2016 3:06:43 PM Allergies 1. 12 Hour Decongestant TB12 Recorded By: Shirley Zhang; 04/10/2014 3:10:36 PM Vitals Recorded: [id number] 02:09PM Heart Rate 120 Respiration 18 Systolic [...] Glucose Negative Bilirubin Negative Ketones Negative Specific [place]undy 1.015 Blood Negative pH 5.5 5.0 - [...] Sergo Mackey M.D.; Jul 02 2016 5:41AM FELT CUTTING MACHINE OPERATOR (Author) documented in this encounter [...] on filedocumented in this encounter Care Teams Personal Lines Account Manager Relationship Specialty Start Date End Date Sergo Mackey MD PCP - General 04/07/17 Sergo Mackey MD PCP - General 08/05/16 04/06/17 Sergo Mackey MD PCP - General 07/16/16 08/04/16 Sergo Mackey MD PCP - General 07/14/16 07/15/16 Sergo Mackey MD PCP - General 06/16/16 07/13/16 documented as of this encounter
--- OUTSIDE RECORDS SUMMARY | 2024-11-11 20:35 | XMS_ITS | Encounter Summary ---
Author Organization [facility] Address [address] [place] [address]. [place] [address] [place] [address] Care Team Providers Care Vocational Auto Body Instructor Name Role Phone Sergo Mackey MD Primary Care Provider Sergo Duncan MD Primary Care Provider Sergo Duncan MD Primary Care Provider Sergo Duncan MD Primary Care Provider Sergo Duncan MD Primary Care Provider Julian short Encounter Details Date Type Department Care Team (Late st Contact Info) Description 06/16/2016 Abstract [facility] [place] [address] Sergo Mackey MD Social History Tobacco Use [...] - 4.20 mIU/mL 06/16/2016 8:22 PM CDT [facility] SERUM OR PLASMA SPECIMEN / Unknown 06/16/2016 3:16 PM CDT 06/16/2016 7:49 PM CDT us Generic Conversion [facility] Final R esult [facility] [address] [place] [address], * COMPREHENSIVE METABOLIC PANEL (06/16/2016 3:16 PM CDT) Pathologist [facility] GLUCOSE 96 70 - 99 mg/dL 06/16/2016 8:22 PM CDT [facility] BUN 10 8 - 23 mg/dL 06/16/2016 8:22 PM CDT [facility] CREATININE S/P/B 0.65 0.60 - 1.10 mg/dL 06/16/2016 8:22 PM CDT [facility] SODIUM S/P/B 140 136 - 145 mmol/L 06/16/2016 8:22 PM CDT [facility] POTASSIUM S/P/B 4.5 3.5 - 5.1 mmol/L 06/16/2016 8:22 PM CDT [facility] CHLORIDE S/P/B 101 98 - 107 mmol/L 06/16/2016 8:22 PM CDT [facility] CO2 25 22 - 29 mmol/L 06/16/2016 8:22 PM CDT [facility] BILIRUBIN TOTAL S/P/B 0.6 0.2 - 1.2 mg/dL 06/16/2016 8:22 PM CDT [facility] CALCIUM S/P/B 9.8 8.6 - 10.2 mg/dL 06/16/2016 8:22 PM CDT [facility] ALKALINE PHOSPHATASE S/P/B 74 35 - 104 U/L 06/16/2016 8:22 PM CDT [facility] AST 18 0 - 32 U/L 06/16/2016 8:22 PM CDT [facility] TOTAL PROTEIN S/P/B 7.5 6.4 - 8.3 g/dL 06/16/2016 8:22 PM CDT [facility] ALBUMIN S/P/B 4.8 3.5 - 5.2 g/dL 06/16/2016 8:22 PM CDT [facility] ALT 19 0 - 33 U/L 06/16/2016 8:22 PM CDT [facility] GLOBULIN 2.7 2.3 - 3.6 g/dL 06/16/2016 8:22 PM CDT [facility] A/G RATIO 1.8 1.0 - 2.0 06/16/2016 8:22 PM CDT [facility] ANION GAP 19 8 - 20 06/16/2016 8:22 PM CDT [facility] EGFR NON-AFR. AMER. >60 >60 mL/min/1.7 '2 06/16/2016 8:22 PM CDT [facility] EGFR AFR. AMER. >60 >60 mL/min/1.7 '2 06/16/2016 8:22 PM CDT [facility] Comment: NOTE: eGFR is not calculated for patients <18 years of age. This is an estimated GFR (CKD EPI) and should not be used for calculating drug doses. 06/16/2016 3:16 PM CDT 06/16/2016 7:49 PM CDT us Generic Conversion Md [facility] Final R esult [facility] [address] [place] [address], [place] [phone] * (ABNORMAL) CBC W/DIFF AUTOMATED (06/16/2016 3:16 PM CDT) [facility] WBC 8.9 4.8 - 10.8 X10'3/uL 06/16/2016 7:56 PM CDT [facility] RBC 4.95 4.20 - 5.40 X10'6/uL 06/16/2016 7:56 PM CDT [facility] HGB 14.0 12.0 - 16.0 g/dL 06/16/2016 7:56 PM CDT [facility] HCT 44.5 38.0 - 48.0 % 06/16/2016 7:56 PM CDT [facility] MCV 89.9 81.0 - 99.0 fL 06/16/2016 7:56 PM CDT [facility] MCH 28.3 27.0 - 31.0 pg 06/16/2016 7:56 PM CDT [facility] MCHC 31.5(L) 32.0 - 36.0 g/dL 06/16/2016 7:56 PM CDT [facility] RDW 13.1 11.5 - 14.5 % 06/16/2016 7:56 PM CDT [facility] PLT 324 130 - 400 X10'3/uL 06/16/2016 7:56 PM CDT [facility] MPV 10.3 9.3 - 12.2 fL 06/16/2016 7:56 PM CDT [facility] DIFFERENTIAL TYPE AUTOMATED 06/16/2016 7:56 PM CDT [facility] NEUTROPHILS % 67.0(H) 43.0 - 65.0 % 06/16/2016 7:56 PM CDT [facility] LYMPHOCYTES % 26.0 20.0 - 46.0 % 06/16/2016 7:56 PM CDT [facility] MONOCYTES % 4.5(L) 5.0 - 12.0 % 06/16/2016 7:56 PM CDT [facility] EOSINOPHILS 1.6 1.0 - 3.0 % 06/16/2016 7:56 PM CDT [facility] BASOPHILS 0.7 0.0 - 1.0 % 06/16/2016 7:56 PM CDT [facility] IMMATURE GRANS % 0.2 0.0 - 1.0 % 06/16/2016 7:56 PM CDT [facility] 06/16/2016 3:1 6 PM CDT 06/16/2016 7:49 PM CDT us Generic Conversion Md [facility] Final R esult [facility] [address] [place] [address], documented in this encounter Visit Diagnoses Diagnosis Bipolar disorder (CMS/HCC [facility]) Bipolar disorder, unspecified documented in this encounter Care Teams Vocational Auto Body Instructor Relationship Specialty Start Date End Date Sergo Mackey MD PCP - General 04/07/17 Sergo Mackey MD PCP - General 08/05/16 04/06/17 Sergo Mackey MD PCP - General 07/16/16 08/04/16 Sergo Mackey MD PCP - General 07/14/16 07/15/16 Sergo Mackey MD PCP - General 06/16/16 07/13/16 documented as of this encounter
--- OUTSIDE RECORDS SUMMARY | 2024-11-11 20:35 | XMS_ITS | Encounter Summary ---
Author Organization [facility] Address [address] [place] [address]. [place], [place] [address] [place] [address] Care Team Providers Care Wheelage Clerk Name Role Phone Sergo Mackey MD Primary Care Provider Sergo Duncan MD Primary Care Provider Julian short Encounter Details Date Type Department Care Team (Latest Contact Info) Description 08/20/2016 Abstract [facility] Medical Group [...] Name: Medical Complaint Callback Assigned To: [facility] [place] Nurse Team Regarding Patient: Alia Fabian, Status: In Progress Comment: Nellie Moy - 20 Aug 2016 11:18 AM TASK CREATED Alia's head CT is normal . Elsa Rivera 20 Aug 2016 4:35 PM TASK IN PROGRESS Elsa Rivera 20 Aug 2016 4:36 PM TASK EDITED Patient informed//af Signatures Electronically signed by : Elsa Rivera, ; Aug 20 2016 4:36PM MANAGER EMPLOYEE BENEFITS (Author) documented in this encounter Plan of Treatment Not on file documented as of this encounter Visit Diagnoses Not on filedocumented in this encounter Care Teams Wheelage Clerk Relationship Specialty Start Date End Date Sergo Mackey MD PCP - General 04/07/17 Sergo Mackey MD PCP - General 08/05/16 04/06/17 documented as of this encounter
--- OUTSIDE RECORDS SUMMARY | 2024-11-11 20:35 | XMS_ITS | Encounter Summary ---
Author Organization [facility] Address [facility]. [place], [place] [address] [place] [address] Care Team Providers Care Database Architect Name Role Phone Sergo Mackey MD Primary Care Provider Sergo Duncan MD Primary Care Provider Sergo Duncan MD Primary Care Provider Sergo Duncan MD Primary Care Provider Sergo Duncan MD Primary Care Provider Julian short Encounter Details Date Type Department Care Team (Latest Contact Info) Description 10/07/2015 Abstract [facility] Medical Group Social History Tobacco Use [...] Mackey Task Name: Follow Up Assigned To: [facility] [place] Ibeth Van, ; Oct 07 2015 2:10PM RUBBER GASKET INSPECTOR TRIMMER (Author) documented in this encounter Plan of Treatment Not on file documented as of this encounter Visit Diagnoses Not on filedocumented in this encounter Care Teams Database Architect Relationship Specialty Start Date End Date Sergo Mackey MD PCP - General 04/07/17 Sergo Mackey MD PCP - General 08/05/16 04/06/17 Sergo Mackey MD PCP - General 07/16/16 08/04/16 Sergo Mackey MD PCP - General 07/14/16 07/15/16 Sergo Mackey MD PCP - General 06/16/16 07/13/16 documented as of this encounter
--- OUTSIDE RECORDS SUMMARY | 2024-11-11 20:35 | XMS_ITS | Encounter Summary ---
Author Organization [facility] Address [facility]. [place], [place] [address] [place] [address] Care Team Providers Care Door Puller Name Role Phone Sergo Mackey MD Primary Care Provider Sergo Duncan MD Primary Care Provider Julian short Encounter Details Date Type Department Care Team (Latest Contact Info) Description 02/08/2017 Abstract [facility] Medical Group Angeli Wu, EMELYN [address] [address] Social History Tobacco Use Types [...] on filedocumented in this encounter Care Teams Door Puller Relationship Specialty Start Date End Date Sergo Mackey MD PCP - General 04/07/17 Sergo Mackey MD PCP - General 08/05/16 04/06/17 documented as of this encounter
--- OUTSIDE RECORDS SUMMARY | 2024-11-11 20:35 | XMS_ITS | Encounter Summary ---
Author Organization [facility] Address [facility] [place] [address] [place] [address] Care Team Providers Care Hydraulics Engineer Name Role Phone Sergo Mackey MD Primary Care Provider Sergo Duncan MD Primary Care Provider Julian short Encounter Details Date Type Department Care Team (Late st Contact Info) Description 03/16/2017 Abstract [facility] Medical Group Family & Internal Medicine [address] [address] Sergo Mackey MD Social History Tobacco Use [...] labs done back in December with her DIRECTOR OF RETAIL OPERATIONS. She is interested in doing repeat labs. She claims she had a sleep apnea test but could not sleep because she had an anxiety attack. She also did have a heart monitor test, magnesium test and serotonin test with her almond blancher operator along with a urine sample test. She [...] BY MOUTH TWICE DAILY; Therapy: 13Aug2016 to (Evaluate:[id number]) Requested for: 21Sep2016; Last Rx:21Sep2016 Ordered Rx By: Nellie Moy; Dispense: 30 Days ; #:60 Capsule; Refill: 0; For: Abdominal cramping, generalized; JULIANA = N; Print Rx; Last Updated By: ButchDashbid; 09/21/2016 8:25:38 AM 2. ClonazePAM 1 MG [...] Shirley Zhang; 04/10/2014 3:10:36 PM Vitals Recorded: [id number] 03:23PM Temperature 98.7 F Heart Rate 103 [...] Allergic rhinitis;JULIANA = N; Verified Transmission to [facility] [address]; Last Updated By: [employer];03/16/2017 3:38:23 PM Atypical chest pain, Fever, IBS (irritable bowel syndrome) 2. CBC W Differential; Status:Hold For - Manual Activation; Requested for:16Mar2017; Perform:[facility]; Due:15Apr2017; Last Updated By:Fariba Garvey; 03/16/2017 3:36:44 PM;Ordered; For:Atypical chest pain, Fever, IBS (irritable bowel syndrome); Ordered By:Sergo Mackey; 3. Compr Metabolic Prof ( CMP ); Status:Hold For - Manual Activation; Requested for:16Mar2017; Perform:[facility]; Due:15Apr2017; Last Updated By:Fariba Garvey; 03/16/2017 3:36:44 PM;Ordered; For:Atypical chest pain, Fever, IBS (irritable bowel syndrome); Ordered By:Sergo Mackey; 4. Free T4 ( Thyroxine ); Status:Hold For - Manual Activation; Requested for:16Mar2017; Perform:[facility]; Due:15Apr2017; Last Updated By:Fariba Garvey; 03/16/2017 3:36:44 PM;Ordered; For:Atypical chest pain, Fever, IBS (irritable bowel syndrome); Ordered By:Sergo Mackey; 5. Thyroid Stim Hormone ( TSH ); Status:Hold For - Manual Activation; Requested for:[id number]; Perform: [facility]; Due:34Iru5910; Last Updated By:Fariba Garvey; 03/16/2017 3:36:44 PM;Ordered; For:Atypical chest pain, Fever, IBS (irritable bowel syndrome); Ordered By:Sergo Mackey; She will continue her current medicines and specialty followup. Signatures Electronically signed by : Sergo Mackey M.D.; Mar 21 2017 10:10PM FOREST NURSERY SUPERVISOR (Author) documented in this encounter Plan of Treatment Not on file documented as of this encounter Visit Diagnoses Not on filedocumented in this encounter Care Teams Hydraulics Engineer Relationship Specialty Start Date End Date Sergo Mackey MD PCP - General 04/07/17 Sergo Mackey MD PCP - General 08/05/16 04/06/17 documented as of this encounter
--- OUTSIDE RECORDS SUMMARY | 2024-11-11 20:35 | XMS_ITS | Encounter Summary ---
Author Organization [facility] Address [facility] [place] [address] [place] [address] Care Team Providers Care Principle Industrial Hygienist Name Role Phone Sergo Mackey MD Primary Care Provider Sergo Duncan MD Primary Care Provider Sergo Duncan MD Primary Care Provider Sergo Duncan MD Primary Care Provider Sergo Duncan MD Primary Care Provider Julian short Encounter Details Date Type Department Care Team (Late st Contact Info) Description 06/16/2016 Abstract [facility] Medical Group Family & Internal Medicine [address] [address] Sergo Mackey MD Social History [...] states she ended up going to the [facility] yesterday for symptoms of shortness of [...] tablettid as needed; Therapy: 10Apr2014 to (Last Rx:[id number]) Ordered Rx By: Sergo Mackey; Dispense: 0 [...] Status:In Progress - Specimen/Data Collected; Done: 16Jun2016 [facility]form:[facility]; Due:16Jul2016; Last Updated By:Angela Lal; 06/16/2016 3:16:54 PM;Ordered; For:Bipolar mood disorder, Panic disorder without agoraphobia; Ordered By:Sergo Mackey; 3. Compr Metabolic Prof ( CMP ); Status:In Progress - Specimen/Data Collected; Done: 16Jun2016 Per[facility]; Due:16Jul2016; Last Updated By:Angela Lal; 06/16/2016 3:16:54 PM;Ordered; For:Bipolar mood disorder, Panic disorder without agoraphobia; Ordered By:Sergo Mackey; 4. Thyroid Stim Hormone ( TSH ); Status:In Progress - Specimen/Data Collected; Done: 16Jun2016 Per[facility]; Due:16Jul2016; Last Updated By:Angela Lal; 06/16/2016 [...] Sergo Mackey M.D.; Jun 18 2016 9:33AM PLANT ELECTRICIAN (Author) documented in this encounter Plan of Treatment Not on file documented as of this encounter Visit Diagnoses Not on filedocumented in this encounter Care Teams Principle Industrial Hygienist Relationship Specialty Start Date End Date Sergo Mackey MD PCP - General 04/07/17 Sergo Mackey MD PCP - General 08/05/16 04/06/17 Sergo Mackey MD PCP - General 07/16/16 08/04/16 Sergo Mackey MD PCP - General 07/14/16 07/15/16 Sergo Mackey MD PCP - General 06/16/16 07/13/16 documented as of this encounter
--- OUTSIDE RECORDS SUMMARY | 2024-11-11 20:35 | XMS_ITS | Encounter Summary ---
Author Organization [facility] Address [address] [place] [address]. [place], [place] [address] [place] [address] Care Team Providers Care Aluminum Can Collector Name Role Phone Sergo Mackey MD Primary Care Provider Sergo Duncan MD Primary Care Provider Julian short Encounter Details Date Type Department Care Team (Latest Contact Info) Description 08/26/2016 Abstract [facility] Medical Group Social History Tobacco Use [...]
--- OUTSIDE RECORDS SUMMARY | 2024-11-11 20:35 | XMS_ITS | Encounter Summary ---
Author Organization [facility] Address [address] [place] [address]. [place], [place] [address] [place] [address] Care Team Providers Care Arc Air Operator Name Role Phone Sergo Mackey MD Primary Care Provider Sergo Duncan MD Primary Care Provider Sergo Duncan MD Primary Care Provider Sergo Duncan MD Primary Care Provider Sergo Duncan MD Primary Care Provider Sagrariovaeliceo short Encounter Details Date Type Department Care Team (Latest Contact Info) Description 06/18/2016 Abstract [facility] Medical Group Social History Tobacco Use [...] Sanders Task Name: Call Back Assigned To: [facility] Team Narendra Regarding Patient: Alia Fabian, Status: In Progress Comment: Juana Sanders - 18 Jun 2016 2:53 PM TASK CREATED Caller: Self; Results Inquiry; patient called regarding her lab results, she would like someone to call her. She states she went to the ER after being seen here and was diagnosed with a UTI. Patient phone # [phone] Eloisa Wolfe - 18 Jun 2016 3:51 PM TASK IN PROGRESS Message: Pt updated-елена Signatures Electronically signed by : Eloisa Wolfe R.N.; Jun 18 2016 3:54PM MACHINE MARKER (Author) documented in this encounter Plan of Treatment Not on file documented as of this encounter Visit Diagnoses Not on filedocumented in this encounter Care Teams Arc Air Operator Relationship Specialty Start Date End Date Sergo Mackey MD PCP - General 04/07/17 Sergo Mackey MD PCP - General 08/05/16 04/06/17 Sergo Mackey MD PCP - General 07/16/16 08/04/16 Sergo Mackey MD PCP - General 07/14/16 07/15/16 Sergo Mackey MD PCP - General 06/16/16 07/13/16 documented as of this encounter
--- OUTSIDE RECORDS SUMMARY | 2024-11-11 20:35 | XMS_ITS | Encounter Summary ---
Author Organization [facility] Address [facility] [place] [address] [place] [address] Care Team Providers Care English Horn Player Name Role Phone Sergo Mackey MD Primary Care Provider Sergo Duncan MD Primary Care Provider Julian short Encounter Details Date Type Department Care Team (Late st Contact Info) Description 08/05/2016 Abstract [facility] Medical Group Family & Internal Medicine - [place] [id number] [place] [address] Nellie Moy FNP [address] [place] [address] Social History Tobacco Use Types Packs/Day Years [...] Alia states that she was hospitalized at [facility] and for the last week she has [...] infection; JULIANA = N; Verified Transmission to [facility] [address]; Last Updated By: TESARO; 08/05/2016 11:47:13 AM Bilateral otitis externa, Bilateral otitis media 2. [id number] Otic Solution; INSTILL 3 DROPS IN BOTH EARS 3-4 TIMES DAILY Rx By: Nellie Moy; Dispense: 0 Days ; #:1 X 10 ML Bottle; Refill: 0; For: Bilateral otitis externa, Bilateral otitis media; JULIANA = N; Verified Transmission to [facility] 150[address]; Last Updated By: TESARO; 08/05/2016 11:47:12 AM 3. Recheck if symptoms [...] otitis media; JULIANA= N; Verified Transmission to [facility] [address]; Last Updated By: TESARO; 08/05/2016 11:47:13 AM Bipolar mood disorder, Panic [...] Status:In Progress - Specimen/Data Collected; Done: 05Aug2016 Perform:[facility]; Due:04Sep2016; Last Updated By:Angela Lal; 08/05/2016 1:07:55 PM;Ordered; For:Vomiting and diarrhea; Ordered By:Nellie Moy; 10. Compr Metabolic Prof ( CMP ); Status:In Progress - Specimen/Data Collected; Done: 05Aug2016 Perform:[facility]; Due:04Sep2016; Last Updated By:Angela Lal; 08/05/2016 1:07:55 PM;Ordered; For:Vomiting and diarrhea; Ordered By:Nellie Moy; 11. Drink plenty of fluids.; Status:Complete; Done: 05Aug2016 01:38PM Ordered; For:Vomiting and diarrhea; Ordered By:Nellie Moy; We will call you with your lab results Signatures Electronically signed by : Nellie Moy, ; Aug 05 2016 1:38PM CUSHION STUFFER (Author) documented in this encounter Plan of Treatment Not on file documented as of this encounter Procedures Procedure Name Priority Date/Time Associated Diagnosis Comments COMPREHENSIVE METABOLIC PANEL Routine 08/05/2016 1:07 PM CDT CBC W/DIFF AUTOMATED Routine 08/05/2016 1:07 PM CDT documented in this encounter Results * (ABNORMAL) COMPREHENSIVE METABOLIC PANEL (08/05/2016 1:07 PM CDT) Pathologist [facility] SODIUM S/P/B 139 136 - 145 mmol/L [...] communication needed at this time Nellie Moy [facility] Final Result [facility] TO EPIC CONVERSION [...] on filedocumented in this encounter Care Teams English Horn Player Relationship Specialty Start Date End Date Sergo Mackey MD PCP - General 04/07/17 Sergo Mackey MD PCP - General 08/05/16 04/06/17 documented as of this encounter
--- OUTSIDE RECORDS SUMMARY | 2024-11-11 20:35 | XMS_ITS | Encounter Summary ---
Author Organization [facility] Address [address] [place] [address]. [place], [place] [address] [place] [address] Care Team Providers Care Optical Goods Worker Name Role Phone Sergo Mackey MD Primary Care Provider Sergo Duncan MD Primary Care Provider Julian short Encounter Details Date Type Department Care Team (Latest Contact Info) Description 02/18/2017 Abstract [facility] Medical Group Social History [...] on filedocumented in this encounter Care Teams Optical Goods Worker Relationship Specialty Start Date End Date Sergo Mackey MD PCP - General 04/07/17 Sergo Mackey MD PCP - General 08/05/16 04/06/17 documented as of this encounter
--- OUTSIDE RECORDS SUMMARY | 2024-11-11 20:35 | XMS_ITS | Encounter Summary ---
Author Organization [facility] Address [address] [place] [address]. [place], [place] [address] [place] [address] Care Team Providers Care Import/Export Clerk Name Role Phone Sergo Mackey MD Primary Care Provider Sergo Duncan MD Primary Care Provider Julian short Encounter Details Date Type Department Care Team (Latest Contact Info) Description 08/10/2016 Abstract [facility] on filedocumented in this encounter Care Teams Import/Export Clerk Relationship Specialty Start Date End Date Sergo Mackey MD PCP - General 04/07/17 Sergo Mackey MD PCP - General 08/05/16 04/06/17 documented as of this encounter
--- OUTSIDE RECORDS SUMMARY | 2024-11-11 20:35 | XMS_ITS | Encounter Summary ---
Author Organization [facility] Address [address] [place] [address]. [place], [place] [address] [place] [address] Care Team Providers Care Adobe Flex Developer Name Role Phone Sergo Mackey MD Primary Care Provider Sergo Duncan MD Primary Care Provider Sergo Duncan MD Primary Care Provider Sergo Duncan MD Primary Care Provider Julian short Encounter Details Date Type Department Care Team (Late st Contact Info) Description 07/14/2016 Abstract [facility] Medical Group Family & Internal Medicine [address] [address] Sergo Mackey MD Social History [...] Mackey Task Name: Follow Up Assigned To: [facility] [place] [place] Team Narendra Regarding Patient: Alia Fabian, Status: [...] 1:51 PM TASK REASSIGNED: Previously Assigned To [facility] [place] [place] Team Sergo Johnston - 10 Jul 2016 [...] Fariba Garvey MA; Jul 14 2016 4:15PM SOLDERING MACHINE OPERATOR AUTOMATIC (Author) * Sergo Mackey MD - 07/14/2016 1:15 PM CDT Reason For Visit Reason For Visit: Acute Visit Chief Complaint Patient c/o rapid and slow pulse, flushing, hot flashes, cold and clammy hands and feet, sharp dullpains in her head, frequent urination and fluctuating blood pressure. Was seen at [facility] for UTI 3 days ago. History of [...] reports she ended up going to the [facility] 3 days ago complaining of flushing, chills [...] DAILY NEEDED ; Therapy: 10Apr2014 to (Last Rx:[id number]) Ordered Rx By: Sergo Mackey; Dispense: 0 [...] Glucose Negative Bilirubin Negative Ketones Negative Specific [place] 1.015 Blood Negative pH 6.5 Protein Negative Urobilinogen 0.2 E.U./dL Nitrites neg Leukocytes Trace Assessment 1. Urinary frequency (788.41) (R35.0) 2. Hypertension (401.9) (I10) 3. Flushing (782.62) (R23.2) 4. Chronic diarrhea (787.91) (K52.9) 5. Palpitations (785.1) (R00.2) Plan Abnormal urine finding, Leukocytes in urine 1. Urine Culture; Status:In Progress - Specimen/Data Collected; Done: 15Jul2016 Perform:[facility]; Due:14Aug2016; Last Updated By:Angela Lal; 07/14/2016 2:48:48 PM;Ordered; For:Abnormal urine finding, Leukocytes in urine; Ordered By:Sergo Mackey; Source: : Clean Catch Chronic diarrhea, Flushing, Palpitations, Urinary frequency 2. Urine 5 - HIAA 24 Hr; Status:Hold For - Manual Activation; Requested for:14Jul2016; Perform:[facility]; Due:13Aug2016; Last Updated By:Angela Lal; 07/14/2016 2:38:00 PM;Ordered; For:Chronic diarrhea, Flushing, Palpitations, Urinary frequency; Ordered By:Sergo Mackey; 3. Urine Fract Catecholamine; Status:Hold For - Manual Activation; Requested for:[id number]; Perform:. [facility]; Due:13Aug2016; Last Updated By:Angela Lal; 07/14/2016 2:38:00 PM;Ordered; For:Chronic diarrhea, Flushing, Palpitations, Urinary frequency; Ordered By:Sergo Mackey; 4. Urine Metanephrines 24 Hr; Status:Hold For - Manual Activation; Requested for:[id number]; Perform:. [facility]; Due:13Aug2016; Last Updated By:Angela Lal; 07/14/2016 2:38:00 PM;Ordered; For:Chronic diarrhea, Flushing, Palpitations, Urinary frequency; Ordered By:Sergo Mackey; I will review her pharmacy records and look to start a new medicine for her mood disorder. Signatures Electronically signed by : Sergo Mackey M.D.; Jul 15 2016 8:57PM SOLDERING MACHINE OPERATOR AUTOMATIC (Author) documented in this encounter Plan of [...] is recommended for confirmation. Test Performed by [facility], [address] [place] [address] Aaron Kennedy M.D., Ph.D., Director of Laboratories , CLIA [id number] VOLUME (U) 2525 ML [facility] TO EPIC [...] 480 Unit: mcg/24 h Test Performed by [facility], [facility], [address] [place] [address] Aaron Kennedy M.D., Ph.D., Director of Laboratories , CLIA [id number] EPINEPHRINE (U) REPORT Results are below the [...] URINE ORDERABLES Final Result Performing Organization Address City/[facility] Co de Phone Number [facility] TO EPIC [...] URINE ORDERABLES Final Result Performing Organization Address [facility] de Phone Number [facility] TO [...] ORDERA BLES Final Result Performing Organization Address [facility] de Phone Number [facility] TO EPIC CONVERSION documented in this encounter Visit Diagnoses Not on filedocumented in this encounter Care Teams Adobe Flex Developer Relationship Specialty Start Date End Date Sergo Mackey MD PCP - General 04/07/17 Sergo Mackey MD PCP - General 08/05/16 04/06/17 Sergo Mackey MD PCP - General 07/16/16 08/04/16 Sergo Mackey MD PCP - General 07/14/16 07/15/16 documented as of this encounter
--- OUTSIDE RECORDS SUMMARY | 2024-11-11 20:35 | XMS_ITS | Encounter Summary ---
Author Organization [facility] Address [address] [place] [address]. [place] [address] [place] [address] Care Team Providers Care Emergency Medicine Nurse Practitioner Name Role Phone Sergo Mackey MD Primary Care Provider Sergo Duncan MD Primary Care Provider Julian short Encounter Details Date Type Department Care Team (Late st Contact Info) Description 08/05/2016 Abstract [facility] [place] [address] Nellie Moy FNP [address] [place] [address] Social History Tobacco Use Types [...] - 99 mg/dL 08/05/2016 8:27 PM CDT [facility] BUN 7(L) 8 - 23 mg/dL 08/05/2016 8:27 PM CDT [facility] CREATININE S/P/B 0.79 0.60 - 1.10 mg/dL 08/05/2016 8:27 PM CDT [facility] SODIUM S/P/B 139 136 - 145 mmol/L 08/05/2016 8:27 PM CDT [facility] POTASSIUM S/P/B 4.4 3.5 - 5.1 mmol/L 08/05/2016 8:27 PM CDT [facility] CHLORIDE S/P/B 99 98 - 107 mmol/L 08/05/2016 8:27 PM CDT [facility] CO2 26 22 - 29 mmol/L 08/05/2016 8:27 PM CDT [facility] BILIRUBIN TOTAL S/P/B 0.6 0.2 - 1.2 mg/dL 08/05/2016 8:27 PM CDT [facility] CALCIUM S/P/B 10.0 8.6 - 10.2 mg/dL 08/05/2016 8:27 PM CDT [facility] ALKALINE PHOSPHATASE S/P/B 60 35 - 104 U/L 08/05/2016 8:27 PM CDT [facility] AST 25 0 - 32 U/L 08/05/2016 8:27 PM CDT [facility] TOTAL PROTEIN S/P/B 7.4 6.4 - 8.3 g/dL 08/05/2016 8:27 PM CDT [facility] ALBUMIN S/P/B 4.6 3.5 - 5.2 g/dL 08/05/2016 8:27 PM CDT [facility] ALT 22 0 - 33 U/L 08/05/2016 8:27 PM T [facility] GLOBULIN 2.8 2.3 - 3.6 g/dL 08/05/2016 8:27 PM CDT [facility] A/G RATIO 1.6 1.0 - 2.0 08/05/2016 8:27 PM CDT [facility] ANION GAP 18 8 - 20 08/05/2016 8:27 PM CDT [facility] EGFR NON-AFR. AMER. >60 >60 mL/min/1.7 3m'2 08/05/2016 8:27 PM CDT [facility] EGFR AFR. AMER. >60 >60 mL/min/1.7 3m'2 08/05/2016 8:27 PM CDT [facility] Comment: NOTE: eGFR is not calculated for patients <18 years of age. This is an estimated GFR (CKD EPI) and should not be used for calculating drug doses. 08/05/2016 1:07 PM CDT 08/05/2016 7:46 PM CDT us Generic Conversion [facility] Final R esult [facility] [address] [address], [place] [phone] * (ABNORMAL) CBC W/DIFF AUTOMATED (08/05/2016 1:07 PM CDT) WBC 8.0 4.8 - 10.8 X10'3/uL 08/05/2016 8:31 PM CDT [facility] RBC 4.72 4.20 - 5.40 X10'6/uL 08/05/2016 8:31 PM CDT [facility] HGB 13.9 12.0 - 16.0 g/dL 08/05/2016 8:31 PM CDT [facility] HCT 41.9 38.0 - 48.0 % 08/05/2016 8:31 PM CDT [facility] MCV 88.8 81.0 - 99.0 fL 08/05/2016 8:31 PM CDT [facility] MCH 29.4 27.0 - 31.0 pg 08/05/2016 8:31 PM CDT [facility] MCHC 33.2 32.0 - 36.0 g/dL 08/05/2016 8:31 PM CDT [facility] RDW 12.8 11.5 - 14.5 % 08/05/2016 8:31 PM CDT [facility] PLT 342 130 - 400 X10'3/uL 08/05/2016 8:31 PM CDT [facility] MPV 10.4 9.3 - 12.2 fL 08/05/2016 8:31 PM CDT [facility] DIFFERENTIAL TYPE AUTOMATED 08/05/2016 8:31 PM CDT [facility] NEUTROPHILS % 67.0(H) 43.0 - 65.0 % 08/05/2016 8:31 PM CDT [facility] LYMPHOCYTES % 22.6 20.0 - 46.0 % 08/05/2016 8:31 PM CDT [facility] MONOCYTES % 6.6 5.0 - 12.0 % 08/05/2016 8:31 PM CDT [facility] EOSINOPHILS 3.0 1.0 - 3.0 % 08/05/2016 8:31 PM CDT [facility] BASOPHILS 0.6 0.0 - 1.0 % 08/05/2016 8:31 PM CDT [facility] IMMATURE GRANS % 0.2 0.0 - 1.0 % 08/05/2016 8:31 PM CDT [facility] 08/05/2016 1:07 PM CDT 08/05/2016 7:46 PM CDT us Generic Conversion [facility] Final R esult [facility] [address] [place] [address], documented in this encounter Visit Diagnoses Diagnosis Vomiting Vomiting alone documented in this encounter Care Teams Emergency Medicine Nurse Practitioner Relationship Specialty Start Date End Date Sergo Mackey MD PCP - General 04/07/17 Sergo Mackey MD PCP - General 08/05/16 04/06/17 documented as of this encounter
--- OUTSIDE RECORDS SUMMARY | 2024-11-11 20:35 | XMS_ITS | Encounter Summary ---
Author Organization [facility] Address [address] [place] [address]. [place] [address] [place] [address] Care Team Providers Care Aquatic Instructor Name Role Phone Sergo Mackey MD Primary Care Provider Sergo Duncan MD Primary Care Provider Julian short Encounter Details Date Type Department Care Team (Latest Contact Info) Description 12/14/2016 Abstract [facility] Medical [...] -елена Verified Results QU-CELIAC DISEASE COMPREHENSIVE PANEL [id number] 10:52AM Sergo Mackey Test Name Result Flag [...] A 171 mg/dL 81-463 Test Performed at: [facility]/[address] SHARI ODOM MD,PHD QU-COMPREHENSIVE METABOLIC PANEL [address]79[address] [id number] 10:52AM Srego Mackey Test Name Result Flag Reference GLUCOSE 99 mg/dL 65-99 Fasting reference interval UREA NITROGEN (BUN) 9 mg/dL 7-25 CREATININE 0.59 mg/dL 0.50-1.10 eGFR NON-AFR. UKRAINIAN 128 > OR = 60 UNITS: mL/min/1.73m2 [...] ALT 16 U/L 6-29 Test Performed at: [facility] [address] [place] [address] KALI HENDRICKS DO,MPH QU-CBC ( INCLUDES DIFF/PLT ) 6399 [id number] 10:52AM Sergo Mackey Test Name Result Flag Reference WHITE BLOOD CELL COUNT 7.4 3.8-10.8 UNITS: Thousand/uL RED BLOOD CELL COUNT 4.76 Million/uL 3.80-5.10 HEMOGLOBIN 13.7 g/dL 11.7-15.5 HEMATOCRIT 41.4 % 35.0-45.0 MCV 86.8 fL 80.0-100.0 MCH 28.7 pg 27.0-33.0 MCHC 33.0 g/dL 32.0-36.0 RDW 13.2 % 11.0-15.0 PLATELET COUNT 313 140-400 UNITS: Thousand/uL MPV 8.1 fL 7.5-12.5 ABSOLUTE NEUTROPHILS 4721 cells/uL 6036-8120 ABSOLUTE LYMPHOCYTES 2220 cells/uL 850-3900 ABSOLUTE MONOCYTES 281 cells/uL 200-950 ABSOLUTE EOSINOPHILS 148 cells/uL 15-500 ABSOLUTE BASOPHILS 30 cells/uL 0-200 NEUTROPHILS 63.8 % LYMPHOCYTES 30.0 % MONOCYTES 3.8 % EOSINOPHILS 2.0 % BASOPHILS 0.4 % REPORT COMMENT: NO DRAW FEE 2ND ORDER,PT REFUSED SIMILAR TESTING [id number] REQ FASTING:YES PATIENT REFUSED SOME TESTING; PATIENT ENCOURAGED Test Performed at: [facility] [place] [address] [place] [address] KALI HENDRICKS DO,MPH Discussion/Summary Labs all good/normal including screening for celiac disease. Signatures Electronically signed by : Eloisa Wolfe R.N.; Dec 14 2016 1:17PM BAIT DIGGER (Author) documented in this encounter Plan of Treatment Not on file documented as of this encounter Visit Diagnoses Not on filedocumented in this encounter Care Teams Aquatic Instructor Relationship Specialty Start Date End Date Sergo Mackey MD PCP - General 04/07/17 Sergo Mackey MD PCP - General 08/05/16 04/06/17 documented as of this encounter
--- OUTSIDE RECORDS SUMMARY | 2024-11-11 20:35 | XMS_ITS | Encounter Summary ---
Author Organization [facility] Address [facility]. [place], [place] [address] [place] [address] Care Team Providers Care Miner Operator Name Role Phone Sergo Mackey MD Primary Care Provider Sergo Duncan MD Primary Care Provider Sergo Duncan MD Primary Care Provider Sergo Duncan MD Primary Care Provider Sergo Duncan MD Primary Care Provider Julian short Encounter Details Date Type Department Care Team (Latest Contact Info) Description 06/16/2016 Abstract [facility] Medical Group Sergo Mackey MD [...] PM CDT) Pathologist [facility] WBC 8.9 4.8 - 10.8 X10'3/uL [...] on filedocumented in this encounter Care Teams Miner Operator Relationship Specialty Start Date End Date Sergo Mackey MD PCP - General 04/07/17 Sergo Mackey MD PCP - General 08/05/16 04/06/17 Sergo Mackey MD PCP - General 07/16/16 08/04/16 Sergo Mackey MD PCP - General 07/14/16 07/15/16 Sergo Mackey MD PCP - General 06/16/16 07/13/16 documented as of this encounter
--- OUTSIDE RECORDS SUMMARY | 2024-11-11 20:35 | XMS_ITS | Encounter Summary ---
Author Organization [facility] Address [facility]. [place], [place] [address] [place] [address] Care Team Providers Care Pain Management Specialist Name Role Phone Sergo Mackey MD Primary Care Provider Sergo Duncan MD Primary Care Provider Sergo Duncan MD Primary Care Provider Sergo Duncan MD Primary Care Provider Julian labSergo Stratton MD Primary Care Provider [facility] Encounter Details Date Type Department Care Team (Latest Contact Info) Description 06/28/2016 Abstract [facility] Medical Group [...] on filedocumented in this encounter Care Teams Pain Management Specialist Relationship Specialty Start Date End Date Sergo Mackey MD PCP - General 04/07/17 Sergo Mackey MD PCP - General 08/05/16 04/06/17 Sergo Mackey MD PCP - General 07/16/16 08/04/16 Sergo Mackey MD PCP - General 07/14/16 07/15/16 Sergo Mackey MD PCP - General 06/16/16 07/13/16 documented as of this encounter
--- OUTSIDE RECORDS SUMMARY | 2024-11-11 20:35 | XMS_ITS | Encounter Summary ---
Author Organization [facility] Address [address] [place] [address]. [place] [address] [place] [address] Care Team Providers Care Hand Alterations Tailor Name Role Phone Sergo Mackey MD Primary Care Provider Sergo Duncan MD Primary Care Provider Julian short Encounter Details Date Type Department Care Team (Late st Contact Info) Description 10/19/2016 Abstract [facility] Medical [facility] - [facility] [address] [facility], [address] [place] [address] Angeli Wu APNP [address] [address] Social History Tobacco Use Types [...] Comments Blood Pressure 138/78 10/19/2016 3:24 PM AIR TRAFFIC SYSTEMS TECHNICIAN Pulse - - Temperature - - Respiratory Rate - - Oxygen Saturation - - Inhaled Oxygen Concentration - - Weight 121.1 kg (267 lb) 10/19/2016 3:24 PM AIR TRAFFIC SYSTEMS TECHNICIAN Height 172.7 cm (5' 8 ) 10/19/2016 3:24 PM AIR TRAFFIC SYSTEMS TECHNICIAN Body Mass Index 40.6 10/19/2016 3:24 PM AIR TRAFFIC SYSTEMS TECHNICIAN documented in this encounter Progress Notes * [...] BY MOUTH TWICE DAILY; Therapy: 13Aug2016 to (Evaluate:[id number]) Requested for: 21Sep2016; Last Rx:21Sep2016 Ordered Rx By: Nellie Moy; Dispense: 30 Days ; #:60 Capsule; Refill: 0; For: Abdominal cramping, generalized; JULIANA = N; Print Rx; Last Updated By: [employer]; 09/21/2016 8:25:38 AM 2. ClonazePAM 1 MG Oral Tablet; Take one tablet three times daily as needed prn; Therapy: 10Sep2016 to (Evaluate:[id number]); Last Rx:10Sep2016 Ordered Rx By: Sergo Mackey; [...] infection; JULIANA = N; Verified Transmission to [facility] 94217; Last Updated By: [employer]; 08/05/2016 11:47:13 AM 4. Metoprolol Tartrate 25 MG Oral Tablet; TAKE 1 TABLET TWICE DAILY; Therapy: 05Aug2016 to (Evaluate:[id number]) Requested for: 13Aug2016; Last Rx:13Aug2016 Ordered Rx By: Nellie Moy; Dispense: 30 Days ; #:60 Tablet; Refill: 5; For: Palpitations; JULIANA = N; Verified Transmission to [facility] [address]; Last Updated By: Dayron Rae; 08/13/2016 3:19:40 PM 5. Propranolol HCl - 20 MG Oral Tablet; TK 1 T PO BID; Therapy: [id number] to Recorded Rx By: JESSICA BOWIE; Dispense: [...] Normal. Results/Data *Urine dip auto In Office [id number] 03:25PM Angeli Wu Test Name Result Flag Reference Color Yellow Clarity Clear Glucose Negative Bilirubin Negative Ketones Negative Specific [place] 1.015 Blood 3+(Large) pH 6.5 5.0 - [...] Angeli Wu APN; Oct 19 2016 3:45PM AIR TRAFFIC SYSTEMS TECHNICIAN (Author) documented in this encounter Plan of Treatment Not on file documented as of this encounter Procedures Procedure Name Priority Date/Time Associated Diagnosis Comments URINALYSIS AUTO DIP Routine 10/19/2016 3 :25 PM AIR TRAFFIC SYSTEMS TECHNICIAN documented in this encounter Results * URINALYSIS AUTO DIP (10/19/2016 3:25 PM AIR TRAFFIC SYSTEMS TECHNICIAN) COLOR (U) Yellow [facility] T O EPIC [...] OUP TO EPIC CONVERSION 10/19/2016 3:25 PM AIR TRAFFIC SYSTEMS TECHNICIAN 10/19/2016 3:25 PM AIR TRAFFIC SYSTEMS TECHNICIAN us Angeli Wu APNP URINE ORDERABLES Final Resu lt [facility] TO EPIC CONVERSION documented in this encounter Visit Diagnoses Not on filedocumented in this encounter Care Teams Hand Alterations Tailor Relationship Specialty Start Date End Date Sergo Mackey MD PCP - General 04/07/17 Sergo Mackey MD PCP - General 08/05/16 04/06/17 documented as of this encounter
--- OUTSIDE RECORDS SUMMARY | 2024-11-11 20:35 | XMS_ITS | Encounter Summary ---
Author Organization [facility] Address [address] [place] [address]. [place], [place] [address] [place] [address] Care Team Providers Care Edge Grinder Machine Name Role Phone Sergo Mackey MD Primary Care Provider Sergo Duncan MD Primary Care Provider Julian short Encounter Details Date Type Department Care Team (Latest Contact Info) Description 08/14/2016 Abstract [facility] Medical [...] on filedocumented in this encounter Care Teams Edge Grinder Machine Relationship Specialty Start Date End Date Sergo Mackey MD PCP - General 04/07/17 Sergo Mackey MD PCP - General 08/05/16 04/06/17 documented as of this encounter
--- OUTSIDE RECORDS SUMMARY | 2024-11-11 20:35 | XMS_ITS | Encounter Summary ---
Author Organization [facility] Address Critical access hospital6 [facility]. [place], [place] [address] [place] [address] Care Team Providers Care Talent Development Director Name Role Phone Sergo Mackey MD Primary Care Provider Sergo Duncan MD Primary Care Provider Julian short Encounter Details Date Type Department Care Team (Latest Contact Info) Description 12/09/2016 Abstract [facility] Medical Group Social History Tobacco Use [...] Mackey Task Name: Follow Up Assigned To: [facility] [place] Narendra Regarding Patient: Alia Fabian, Status: In Progress Comment: Sergo Mackey - 09 Dec 2016 10:04 AM TASK CREATED Ultrasound of the liver, gallbladder and surrounding structures was good/normal. We can have her see a loan underwriter if she is continuing to have stomach symptoms. Fariba Garvey - 09 Dec 2016 10:27 AM TASK IN PROGRESS Message: Patient notified and already sees [facility] Signatures Electronically signed by : Fariba Garvey MA; Dec 09 2016 10:28AM TREE MARKER (Author) documented in this encounter Plan of Treatment Not on file documented as of this encounter Visit Diagnoses Not on filedocumented in this encounter Care Teams Talent Development Director Relationship Specialty Start Date End Date Sergo Mackey MD PCP - General 04/07/17 Sergo Mackey MD PCP - General 08/05/16 04/06/17 documented as of this encounter
--- OUTSIDE RECORDS SUMMARY | 2024-11-11 20:35 | XMS_ITS | Encounter Summary ---
Author Organization [facility] Address [facility] [facility] [place] [address] [place] [address] Care Team Providers Care Semiconductor Dies Loader Name Role Phone Sergo Mackey MD Primary Care Provider Sergo Duncan MD Primary Care Provider Julian short Encounter Details Date Type Department Care Team (Latest Contact Info) Description 02/04/[address] [facility] Medical Group Social History Tobacco Use Types [...] and wants to reschedule it to [facility] instead. Apt is on 02-08-17. Plan 1. US KIDNEYS BI; Status:Hold For - Scheduling; Requested for:[id number]; Perform:[facility]; Due:[id number]; Last Updated By:Marcela Wilson; 02/04/2017 11:39:06 AM;Ordered; For:Hematuria, Urinary frequency; Ordered By:Angeli Wu; Signatures Electronically signed by : Marcela Wilson MA; Feb 04 2017 11:40AM FIGURE CLERK (Author) documented in this encounter Plan of Treatment Not on file documented as of this encounter Visit Diagnoses Not on filedocumented in this encounter Care Teams Semiconductor Dies Loader Relationship Specialty Start Date End Date Sergo Mackey MD PCP - General 04/07/17 Sergo Mackey MD PCP - General 08/05/16 04/06/17 documented as of this encounter
--- OUTSIDE RECORDS SUMMARY | 2024-11-11 20:35 | XMS_ITS | Encounter Summary ---
Author Organization [facility] Address [address] [place] [address]. [place] [address] [place] [address] Care Team Providers Care Digital Marketing Assistant Name Role Phone Sergo Mackey MD Primary Care Provider Sergo Duncan MD Primary Care Provider Sergo Duncan MD Primary Care Provider Sergo Duncan MD Primary Care Provider Julian short Encounter Details Date Type Department Care Team (Late st Contact Info) Description 07/14/2016 Abstract [facility] [place] [address] Sergo Mackey MD Social History [...] URINE CLEAN CATCH 07/14/2016 5:40 PM CDT [facility] SPECIAL REQUESTS NO SPECIAL REQUEST 07/14/2016 5:40 PM CDT [facility] CULTURE RESULT NO GROWTH 2 DAYS 07/17/2016 8:10 AM CDT [facility] URINE SPECIMEN OBTAINED BY CLEAN CATCH PROCEDURE / Unknown 07/14/2016 2:41 PM CDT 07/14/2016 7:08 PM CDT us Generic Conversion Md [facility] - GENERAL ORDERABLES Final Result [facility] [address] [place] [address], [place] [phone] documented in this encounter Visit Diagnoses Diagnosis Other abnormal findings in urine documented in this encounter Care Teams Digital Marketing Assistant Relationship Specialty Start Date End Date Sergo Mackey MD PCP - General 04/07/17 Sergo Mackey MD PCP - General 08/05/16 04/06/17 Sergo Mackey MD PCP - General 07/16/16 08/04/16 Sergo Mackey MD PCP - General 07/14/16 07/15/16 documented as of this encounter
--- OUTSIDE RECORDS SUMMARY | 2024-11-11 20:35 | XMS_ITS | Encounter Summary ---
Author Organization [facility] Address [facility]. [place], [place] [address] [place] [address] Care Team Providers Care Gasoline Tractor Operator Name Role Phone Sergo Mackey MD Primary Care Provider Sergo Duncan MD Primary Care Provider Julian short Encounter Details Date Type Department Care Team (Latest Contact Info) Description 02/15/2017 Abstract [facility] Medical Group , James Pineda MD Social [...] Task Name: Medical Complaint Callback Assigned To: [facility] [place] Narendra [...] her other us was normal...please advise. cb#: [phone] Sergo Mackey - 15 Feb 2017 4:36 [...] W; Status:Need Information - Financial Authorization; Requested for:[id number]; Perform:Other Radiology; Due:[id number]; Last Updated By:Elsa Rivera; 02/15/2017 4:47:11 PM;Ordered; For:Abnormal ultrasound of abdomen; Ordered By:Sergo Mackey; Patient prefers [facility], liver stenosis found on US with urology Signatures Electronically signed by : Elsa Rivera, ; Feb 15 2017 4:47PM THERMAL SPRAY OPERATOR (Author) * Rani Reardon MD - 02/15/2017 2:43 PM CDT Message Message: Patient was called and notified of her kidney u/s. Patient will notify her primary of the result of the liver steatosis. Signatures Electronically signed by : Rani Reardon, ; Feb 15 2017 2:45PM THERMAL SPRAY OPERATOR (Author) documented in this encounter Plan of Treatment Not on file documented as of this encounter Visit Diagnoses Not on filedocumented in this encounter Care Teams Gasoline Tractor Operator Relationship Specialty Start Date End Date Sergo Mackey MD PCP - General 04/07/17 Sergo Mackey MD PCP - General 08/05/16 04/06/17 documented as of this encounter
--- OUTSIDE RECORDS SUMMARY | 2024-11-11 20:35 | XMS_ITS | Encounter Summary ---
Author Organization [facility] Address [address] [place] [address]. [place], [place] [address] [place] [address] Care Team Providers Care Range Operator Name Role Phone Sergo Mackey MD Primary Care Provider Sergo Duncan MD Primary Care Provider Julian short Encounter Details Date Type Department Care Team (Latest Contact Info) Description 12/01/2016 Abstract [facility] Medical Group Social [...] on filedocumented in this encounter Care Teams Range Operator Relationship Specialty Start Date End Date Sergo Mackey MD PCP - General 04/07/17 Sergo Mackey MD PCP - General 08/05/16 04/06/17 documented as of this encounter
--- OUTSIDE RECORDS SUMMARY | 2024-11-11 20:35 | XMS_ITS | Encounter Summary ---
Author Organization [facility] Address [address] [place] [address]. [place] [address] [place] [address] Care Team Providers Care Alpaca Farmer Name Role Phone Sergo Mackey MD Primary Care Provider Sergo Duncan MD Primary Care Provider Sergo Duncan MD Primary Care Provider Julian short Encounter Details Date Type Department Care Team (Late st Contact Info) Description 07/16/2016 Abstract [facility] [place] [address] Sergo Mackey MD Social History [...] (U) 2525 ML 07/17/2016 8:34 AM CDT [facility] METANEPHRINE (U) 24 HR 70 25 - 222 mcg/24 h 07/22/2016 4:46 AM CDT Maimai BEST-CHANTI LLY NORMETANEPHRINE (U) 24 HRS 190 40 - 412 mcg/24 h 07/22/2016 4:46 AM CDT Loudie MARY TRUJILLORAMON ANA METANEPHRINES TOTAL (U) 260 94 - 604 mcg/24 h 07/22/2016 4:46 AM CDT Maimai LELE PEREZ Comment: A four fold elevation of urinary normetanephrines is extremely likely to be due to a tumor, while a four fold elevation of urinary metanephrines is highly suggestive, but not diagnostic of the tumor. Measurement of plasma Metanephrines and Chromogranin A is recommended for confirmation. Test Performed by [employer], [facility] [place], [address] [place] [address] Aaron Kennedy M.D., Ph.D., Director of Laboratories , [place] [id number] 07/16/2016 3:35 PM CDT 07/17/2016 8:33 AM CDT us Generic Conversion Md JOHNSON URINE ORDERABLES Final Result Performing Organization Address City/[facility]/ZIP Co de Phone Number Maimai CASSANDRACHESTERStar [address] [place] [address], [place] [phone] [facility] [address] [place] [address], [place] [phone] * 5-HIAA URINE 24 HR (07/16/2016 3:35 PM CDT) VOLUME (U) 2525 ML 07/17/2016 8:33 AM CDT [facility] 5-HIAA 3.3 <=6.0 mg/24 h 07/22/2016 4:46 AM CDT Maimai BESTShannonCHESTER Graves 07/16/2016 3:35 PM CDT 07/17/2016 8:33 AM CDT us Generic Conversion Md JOHNSON URINE ORDERABLES Final Result [facility]. [facility] [address] [place], [place] , [place] [phone] [facility] [address] [place] [address], [place] [phone] * CATECHOLAMINES URINE 24 HR (07/16/2016 3:35 PM CDT) VOLUME (U) 2525 ML 07/17/2016 8:32 AM CDT [facility] EPINEPHRINE (U) REPORT 6 3:42 AM CDT Maimai BEST-RAMON LLY Comment: Results are below the reportable range for this analyte, which is 2.0 mcg/L. NOREPINEPHRINE (U) 51 15 - 100 mcg/24 h 07/22/2016 3:42 AM CDT Maimai LELE PEREZ CATECHOLAMINE-URIN E TOTAL 51 26 - 121 mcg/24 h 07/22/2016 3:42 AM CDT Maimai LELE PEREZ DOPAMINE (U) 379 52 - 480 mcg/24 h 07/22/2016 3:42 AM CDT Maimai LELE PEREZ Comment: Test Performed by Sandie Zelaya [facility], [address] [place] [address] Aaron Kennedy M.D., Ph.D., Director of Laboratories , [facility] [id number] 07/16/2016 3:35 PM CDT 07/17/2016 8:32 AM CDT us Generic Conversion Md JOHNSON URINE ORDERABLES Final Result Performing Organization Address [facility]/ZIP Co de Phone Number [facility]. [facility] [address] [place], [place] , [place] [phone] [facility] [address] [place] [address], [place] [phone] documented in this encounter Visit Diagnoses Diagnosis Noninfective gastroenteritis and colitis Other and unspecified noninfectious gastroenteritis and colitis documented in this encounter Care Teams Alpaca Farmer Relationship Specialty Start Date End Date Sergo Mackey MD PCP - General 04/07/17 Sergo Mackey MD PCP - General 08/05/16 04/06/17 Sergo Mackey MD PCP - General 07/16/16 08/04/16 documented as of this encounter
--- OUTSIDE RECORDS SUMMARY | 2024-11-11 20:35 | XMS_ITS | Encounter Summary ---
Author Organization [facility] Address [address] [place] [address]. [place], [place] [address] [place] [address] Care Team Providers Care Medical/Surgery Registered Nurse Name Role Phone Sergo Mackey MD Primary Care Provider Sergo Duncan MD Primary Care Provider Julian short Encounter Details Date Type Department Care Team (Latest Contact Info) Description 03/15/2017 Abstract [facility] Medical Group Social History Tobacco [...] on filedocumented in this encounter Care Teams Medical/Surgery Registered Nurse Relationship Specialty Start Date End Date Sergo Mackey MD PCP - General 04/07/17 Sergo Mackey MD PCP - General 08/05/16 04/06/17 documented as of this encounter
--- OUTSIDE RECORDS SUMMARY | 2024-11-11 20:35 | XMS_ITS | Encounter Summary ---
Author Organization [facility] Address [address] [place] [address]. [place] [address] [place] [address] Care Team Providers Care Shuffle Board Operator Name Role Phone Sergo Mackey MD Primary Care Provider Julian short Encounter Details Date Type Department Care Team (Late st Contact Info) Description 04/07/2017 Abstract [facility] [place] [address] Sergo Mackey MD Social History [...] URINE CLEAN CATCH 04/07/2017 5:42 PM CDT [facility] COLOR (U) YELLOW 04/07/2017 8:01 PM CDT [facility] TRANSPARENCY CLOUDY 04/07/2017 8:01 PM CDT [facility] SPECIFIC GRAVITY (U) 1.026 1.001 - 1.030 04/07/2017 8:01 PM CDT [facility] U PH 6.0 5.0 - 9.0 04/07/2017 8:01 PM CDT [facility] LEUKOCYTES (U) NEGATIVE NEGATIVE 04/07/2017 8:01 PM T [facility] NITRITES NEGATIVE NEGATIVE 04/07/2017 8:01 PM CDT [facility] PROTEIN (U) NEGATIVE <30 MG/DL 04/07/2017 8:01 PM CDT [facility] URINE GLUCOSE NEGATIVE NEGATIVE MG/DL 04/07/2017 8:01 PM CDT [facility] KETONES MG/DL (U) NEGATIVE NEGATIVE MG/DL 04/07/2017 8:01 PM T [facility] UROBILINOGEN 2.0(A) NEGATIVE MG/DL 04/07/2017 8:01 PM T [facility] BILIRUBIN (U) NEGATIVE NEGATIVE MG/DL 04/07/2017 8:01 PM CDT [facility] BLOOD (U) NEGATIVE NEGATIVE 04/07/2017 8:01 PM CDT [facility] SQUAMOUS EPITHELIALS MANY /LPF 04/07/2017 8:01 PM CDT [facility] MUCUS RARE /LPF 04/07/2017 8:01 PM CDT [facility] WBC/HPF 1 <6 /HPF 04/07/2017 8:01 PM CDT [facility] RBC/HPF 3 <6 /HPF 04/07/2017 8:01 PM T [facility] 04/07/2017 8:54 AM CDT 04/07/2017 6:22 PM CDT us Generic Conversion Md JOHNSON URINE ORDERABLES Final Result [facility] [address] [place] [address], [place] [phone] * CULTURE URINE (04/07/2017 8:54 AM CDT) SPEC DESCRIPTION URINE CLEAN CATCH 04/07/2017 5:42 PM CDT [facility] SPECIAL REQUESTS NO SPECIAL REQUEST 04/07/2017 5:42 PM CDT [facility] CULTURE RESULT POLYMICROBIAL GROWTH CONSISTENT WITH NORMAL GENITAL NIKHIL. ?? SUSCEPTIBILITIES NOT ROUTINELY PERFORMED. 04/10/2017 10:09 AM CDT [facility] URINE SPECIMEN OBTAINED BY CLEAN CATCH PROCEDURE / Unknown 04/07/2017 8:54 AM CDT 04/07/2017 6:21 PM CDT us Generic Conversion Md JOHNSON MICROBIOLOGY - GENERAL ORDERABLES Final Result [facility] [address] [place] [address], documented in this encounter Visit Diagnoses Diagnosis Dysuria documented in this encounter Care Teams Shuffle Board Operator Relationship Specialty Start Date End Date Sergo Mackey MD PCP - General 04/07/17 documented as of this encounter
--- OUTSIDE RECORDS SUMMARY | 2024-11-11 20:35 | XMS_ITS | Encounter Summary ---
Author Organization [facility] Address [address] [place] [address]. [place], [place] [address] [place] [address] Care Team Providers Care Cream Dipper Name Role Phone Sergo Mackey MD Primary Care Provider Sergo Duncan MD Primary Care Provider Julian short Encounter Details Date Type Department Care Team (Latest Contact Info) Description 10/14/2016 Abstract [facility] Medical Group [...] on filedocumented in this encounter Care Teams Cream Dipper Relationship Specialty Start Date End Date Sergo Mackey MD PCP - General 04/07/17 Sergo Mackey MD PCP - General 08/05/16 04/06/17 documented as of this encounter
--- OUTSIDE RECORDS SUMMARY | 2024-11-11 20:35 | XMS_ITS | Encounter Summary ---
Author Organization [facility] Address [facility] [place] [address] [place] [address] Care Team Providers Care Food Production Supervisor Name Role Phone Sergo Mackey MD Primary Care Provider Sergo Duncan MD Primary Care Provider Julian short Encounter Details Date Type Department Care Team (Late st Contact Info) Description 09/10/2016 Abstract [facility] Medical Group Family & Internal Medicine [address] [phone] Sergo Mackey MD Social History Tobacco Use [...] Comments Blood Pressure 118/78 09/10/2016 3:03 PM RETAIL LINK ANALYST Pulse 86 09/10/2016 3:03 PM RETAIL LINK ANALYST Temperature - - Respiratory Rate - - Oxygen Saturation - - Inhaled Oxygen Concentration - - Weight 121.2 kg (267 lb 4 oz) 09/10/2016 3:03 PM RETAIL LINK ANALYST Height 172.7 cm (5' 8 ) 09/10/2016 3:03 PM RETAIL LINK ANALYST Body Mass Index 40.64 09/10/2016 3:03 PM RETAIL LINK ANALYST documented in this encounter Progress Notes * [...] her knee locks several times. She takes fgzg-aqn-jrzkydi Tylenol and this seems to be helpful. She was hospitalized back in July at [facility] for mental illness. She is trying to find to a psychiatrist that will accept her insurance. [facility]. [...] twice daily; Therapy: 13Aug2016 to (Evaluate:12Sep2016); Last Rx:[id number] Ordered Rx By: Nellie Moy; Dispense: 30 Days ; #:60 Capsule; Refill: 0; For: Abdominal cramping, generalized; JULIANA = N; Print Rx 2. Fluconazole 150 MG Oral Tablet; TAKE 1 TABLET Once PRN onset of symptoms may repeat dose in 72 hours for continued symptoms; Therapy: 05Aug2016 to (Evaluate:07Aug2016) Requested for: 05Aug2016; Last Rx:[id number] Ordered Rx By: Nellie Moy; Dispense: 2 Days ; #:2 Tablet; Refill: 0; For: Antibiotic-induced yeast infection; JULIANA = N; Verified Transmission to [facility]; Last Updated By: [employer]; 08/05/2016 11:47:13 AM 3. Metoprolol Tartrate 25 MG Oral Tablet; TAKE 1 TABLET TWICE DAILY; Therapy: 05Aug2016 to (Evaluate:[id number]) Requested for: 13Aug2016; Last Rx:[id number] Ordered Rx By: Nellie Moy; Dispense: 30 Days ; #:60 Tablet; Refill: 5; For: Palpitations; JULIANA = N; Verified Transmission to [facility]; Last Updated By: [employer]; 08/13/2016 3:19:40 PM Allergies 1. 12 Hour [...] Sergo Mackey M.D.; Sep 13 2016 2:48PM RETAIL LINK ANALYST (Author) documented in this encounter Plan of Treatment Not on file documented as of this encounter Visit Diagnoses Not on filedocumented in this encounter Care Teams Food Production Supervisor Relationship Specialty Start Date End Date Sergo Mackey MD PCP - General 04/07/17 Sergo Mackey MD PCP - General 08/05/16 04/06/17 documented as of this encounter
--- OUTSIDE RECORDS SUMMARY | 2024-11-11 20:35 | XMS_ITS | Encounter Summary ---
Author Organization [facility] Address [address] [place] [address]. [place], [place] [address] [place] [address] Care Team Providers Care Network Security Administrator Name Role Phone Sergo Mackey MD Primary Care Provider Sergo Duncan MD Primary Care Provider Sergo Duncan MD Primary Care Provider Julian short Encounter Details Date Type Department Care Team (Latest Contact Info) Description 07/17/2016 Abstract [facility] Medical Group , James Pineda [...] patient notified -sjs Verified Results Urine Culture [id number] 02:41PM Sergo Mackey Test Name Result Flag Reference Urine Culture SPECIMEN DESCRIPTION - URINE CLEAN CATCH SPECIAL REQUESTS - NO SPECIAL REQUEST CULTURE - NO GROWTH 2 DAYS REPORT STATUS - FINAL 07/17/2016 Discussion/Summary Urine culture shows no infection. No need for anbx. Signatures Electronically signed by : Fariba Garvey MA; Jul 20 2016 1:37PM CHART COLLECTOR (Author) * Generic Conversion MD Ashkan - 07/17/2016 11:09 AM CDT Message Recorded as Task Date: 07/15/2016 01:28 PM, Created By: Yasmine Fitch Task Name: Medical Complaint Callback Assigned To: [facility] [place] Narendra Regarding Patient: Alia [...] 16 Jul 2016 4:49 PM TASK EDITED [facility] Message: Pts mother updated-[facility] Plan 1. LORazepam 1 MG Oral Tablet; TAKE 1 TABLET BY MOUTH THREE TIMES DAILY NEEDED Rx By: Sergo Mackey; Dispense: 0 Days ; #:60 Tablet; Refill: 0; For: Bipolar mood disorder, Palpitations; JULIANA = N; Call Rx; Last Updated By: Eloisa Wolfe Signatures Electronically signed by : Eloisa Wolfe R.N.; Jul 17 2016 11:11AM CHART COLLECTOR (Author) documented in this encounter Plan of Treatment Not on file documented as of this encounter Visit Diagnoses Not on filedocumented in this encounter Care Teams Network Security Administrator Relationship Specialty Start Date End Date Sergo Mackey MD PCP - General 04/07/17 Sergo Mackey MD PCP - General 08/05/16 04/06/17 Sergo Mackey MD PCP - General 07/16/16 08/04/16 documented as of this encounter
--- OUTSIDE RECORDS SUMMARY | 2024-11-11 20:35 | XMS_ITS | Encounter Summary ---
Author Organization [facility] Address [address] [place] [address]. [place], [place] [address] [place] [address] Care Team Providers Care Grade Teacher Name Role Phone Sergo Mackey MD Primary Care Provider Sergo Duncan MD Primary Care Provider Julian short Encounter Details Date Type Department Care Team (Latest Contact Info) Description 08/18/2016 Abstract [facility] Medical Group Sergo Mackey MD Social History [...] on filedocumented in this encounter Care Teams Grade Teacher Relationship Specialty Start Date End Date Sergo Mackey MD PCP - General 04/07/17 Sergo Mackey MD PCP - General 08/05/16 04/06/17 documented as of this encounter
--- OUTSIDE RECORDS SUMMARY | 2024-11-11 20:35 | XMS_ITS | Encounter Summary ---
Author Organization [facility] Address [facility]. [place], [place] [address] [place] [address] Care Team Providers Care Gold Leaf Layer Name Role Phone Sergo Mackey MD Primary Care Provider Sergo Duncan MD Primary Care Provider Julian short Encounter Details Date Type Department Care Team (Latest Contact Info) Description 10/22/2016 Abstract [facility] Medical Group [...] Task Name: Medical Complaint Callback Assigned To: [facility] Narendra Regarding Patient: Alia Fabian, Status: Active Comment: Jaclyn Santana - 22 Oct 2016 3:43 PM TASK CREATED Caller: Self; Medical Complaint; Pt stated that at 09/10/16 she talked to you about speaking with her ob Shanell [phone] at [facility] [place] regarding her being able to use prestrogen with her blood pressure. Asking if this has been done. Sergo Mackey - 22 Oct 2016 5:09 PM TASK REASSIGNED: Previously Assigned To Sergo Mackey Med list has both propranolol and metoprolol included. She should be on one or the other. I'm not sure if Chha wanted to start a progestin contraceptive but that would be fine if that is the plan. Message: PATIENT NOTIFIED -SJS Signatures Electronically signed by : Fariba Garvey MA; Oct 22 2016 5:17PM ROLL CONTOUR GRINDER (Author) documented in this encounter Plan of Treatment Not on file documented as of this encounter Visit Diagnoses Not on filedocumented in this encounter Care Teams Gold Leaf Layer Relationship Specialty Start Date End Date Sergo Mackey MD PCP - General 04/07/17 Sergo Mackey MD PCP - General 08/05/16 04/06/17 documented as of this encounter
--- OUTSIDE RECORDS SUMMARY | 2024-11-11 20:35 | XMS_ITS | Encounter Summary ---
Author Organization [facility] Address [address] [place] [address]. [place], [place] [address] [place] [address] Care Team Providers Care Conservation Technician Name Role Phone Sergo Mackey MD Primary Care Provider Sergo Duncan MD Primary Care Provider Julian short Encounter Details Date Type Department Care Team (Latest Contact Info) Description 08/07/2016 Abstract [facility] Medical Group Social History Tobacco [...] on filedocumented in this encounter Care Teams Conservation Technician Relationship Specialty Start Date End Date Sergo Mackey MD PCP - General 04/07/17 Sergo Mackey MD PCP - General 08/05/16 04/06/17 documented as of this encounter
--- OUTSIDE RECORDS SUMMARY | 2024-11-11 20:35 | XMS_ITS | Encounter Summary ---
Author Organization [facility] Address [facility] [place] [address] [place] [address] Care Team Providers Care Oceanologist Name Role Phone Sergo Mackey MD Primary Care Provider Sergo Duncan MD Primary Care Provider Julian short Encounter Details Date Type Department Care Team (Late st Contact Info) Description 12/03/2016 Abstract [facility] Medical Group Family & Internal Medicine [address] [phone] Sergo Mackey MD Social History Tobacco Use [...] Comments Blood Pressure 126/80 12/03/2016 3:06 PM COMMERCIAL REAL ESTATE UNDERWRITER Pulse 112 12/03/2016 3:06 PM COMMERCIAL REAL ESTATE UNDERWRITER Temperature - - Respiratory Rate - - Oxygen Saturation - - Inhaled Oxygen Concentration - - Weight 127.9 kg (282 lb) 12/03/2016 3:06 PM COMMERCIAL REAL ESTATE UNDERWRITER Height 172.7 cm (5' 8 ) 12/03/2016 3:06 PM COMMERCIAL REAL ESTATE UNDERWRITER Body Mass Index 42.88 12/03/2016 3:06 PM COMMERCIAL REAL ESTATE UNDERWRITER documented in this encounter Progress Notes * [...] PCOS and is following up with her [employer]. She is trying to get a second [...] BY MOUTH TWICE DAILY; Therapy: 13Aug2016 to (Evaluate:[id number]) Requested for: 21Sep2016; Last Rx:21Sep2016 Ordered Rx By: Nellie Moy; Dispense: 30 Days ; #:60 Capsule; Refill: 0; For: Abdominal cramping, generalized; JULIANA = N; Print Rx; Last Updated By: Platfora; 09/21/2016 8:25:38 AM 2. ClonazePAM 1 MG Oral Tablet; TAKE 1 TABLET BY MOUTH THREE TIMES DAILY NEEDED; Therapy: 10Sep2016 to (Evaluate:26Nov2016) Requested for: 27Oct2016; Last Rx:27Oct2016 Ordered Rx By: Sergo Mackey; Dispense: 30 Days ; #:90 TAB; Refill: 0; For: Bipolar mood disorder; JULIANA =N; Print Rx; Last Updated By: Platfora; 12/03/2016 3:33:49 PM 3. Metoprolol Tartrate 25 MG Oral Tablet; TAKE 1 TABLET TWICE DAILY; Therapy: 05Aug2016 to (Evaluate:[id number]) Requested for: 13Aug2016; Last Rx:13Aug2016 Ordered Rx By: Nellie Moy; Dispense: 30 Days ; #:60 Tablet; Refill: 5; For: Palpitations; JULIANA = N; Verified Transmission to [facility] 269[address]; Last Updated By: Platfora; 08/13/2016 3:19:40 PM Allergies 1. 12 Hour Decongestant TB12 Recorded By: Shirley Zhang; 04/10/2014 3:10:36 PM Vitals Recorded: [id number] 03:06PM Heart Rate 112 Respiration 16 Systolic [...] Status:Hold For - Manual Activation; Requested for:03Dec2016; Perform:[facility]; Due:02Jan2017; Last Updated By:Fariba Garvey; 12/03/2016 3:28:37 PM;Ordered; For:Chronic diarrhea, Continuous RUQ abdominal pain, Hyperglycemia, PCOS (polycystic ovarian syndrome); Ordered By:Sergo Mackey; 4. Celiac Ab Evaluation; Status:Hold For - Manual Activation; Requested for:03Dec2016; Perform:[facility]; Due:02Jan2017; Last Updated By:Fariba Garvey; 12/03/2016 3:28:37 PM;Ordered; For:Chronic diarrhea, Continuous RUQ abdominal pain, Hyperglycemia, PCOS (polycystic ovarian syndrome); Ordered By:Sergo Mackey; 5. Compr Metabolic Prof ( CMP ); Status:Hold For - Manual Activation; Requested for:03Dec2016; Perform:[facility]; Due:02Jan2017; Last Updated By:Fariba Garvey; 12/03/2016 3:28:37 PM;Ordered; For:Chronic diarrhea, Continuous RUQ abdominal pain, Hyperglycemia, PCOS (polycystic ovarian syndrome); Ordered By:Sergo Mackey; 6. Free T4 ( Thyroxine ); Status:Hold For - Manual Activation; Requested for:03Dec2016; Perform:[facility]; Due:02Jan2017; Last Updated By:Fariba Garvey; 12/03/2016 3:28:37 PM;Ordered; For:Chronic diarrhea, Continuous RUQ abdominal pain, Hyperglycemia, PCOS (polycystic ovarian syndrome); Ordered By:Sergo Mackey; 7. Thyroid Stim Hormone ( TSH ); Status:Hold For - Manual Activation; Requested for:03Dec2016; Perform:[facility]; Due:02Jan2017; Last Updated By:Fariba Garvey; 12/03/2016 3:28:37 PM;Ordered; For:Chronic diarrhea, Continuous RUQ abdominal pain, Hyperglycemia, PCOS (polycystic ovarian syndrome); Ordered By:Sergo Mackey; F/U with Leadership Coach as planned. US ABDOMEN LIMITED RUQ; Status:Hold [...] Sergo Mackey M.D.; Dec 07 2016 2:42AM COMMERCIAL REAL ESTATE UNDERWRITER (Author) documented in this encounter Plan of Treatment Not on file documented as of this encounter Visit Diagnoses Not on filedocumented in this encounter Care Teams Oceanologist Relationship Specialty Start Date End Date Sergo Mackey MD PCP - General 04/07/17 Sergo Mackey MD PCP - General 08/05/16 04/06/17 documented as of this encounter
--- OUTSIDE RECORDS SUMMARY | 2024-11-11 20:35 | XMS_ITS | Encounter Summary ---
Author Organization [facility] Address [address] [place] [address]. [place], [place] [address] [place] [address] Care Team Providers Care Associate Professor Of Art Name Role Phone Sergo Mackey MD Primary Care Provider Sergo Duncan MD Primary Care Provider Julian short Encounter Details Date Type Department Care Team (Latest Contact Info) Description 12/08/2016 Abstract [facility] Medical Group Sergo Mackey MD [...] DISEASE COMP PANEL Routine 12/08/2016 10:52 AM BUS AIDE COMPREHENSIVE METABOLIC PANEL Routine 12/08/2016 10:52 AM BUS AIDE CBC W/DIFF AUTOMATED Routine 12/08/2016 10:52 AM BUS AIDE documented in this encounter Results * CELIAC DISEASE COMP PANEL (QST) (12/08/2016 10:52 AM BUS AIDE) INTERPRETATION see note [facility] OUP TO EPIC [...] CONVERSION Comment: Result Comment: Test Performed at: [facility]/[address] ? SHARI ODOM MD,PHD 12/08/2016 10:5 2 AM BUS AIDE 12/08/2016 10:52 AM BUS AIDE Narrative [facility] TO EPIC CONVERSION - 12/08/2016 10:58 AM BUS AIDE Result Communication: No patient communication needed at this time Sergo Mackey MD LABORATORY Final Result [facility] TO EPIC CONVERSION * COMPREHENSIVE METABOLIC PANEL (12/08/2016 10:52 AM BUS AIDE) GLUCOSE 99 65 - 99 mg/dL [facility] [...] CONVERSION Comment: Result Comment: Test Performed at: [facility] [address] [place] [address] ??[id number] ? KALI HENDRICKS DO,MPH 12/08/2016 10:5 2 AM BUS AIDE 12/08/2016 10:52 AM BUS AIDE Narrative [facility] TO EPIC CONVERSION - 12/08/2016 10:58 AM BUS AIDE Result Communication: No patient communication needed at this time Sergo Mackey MD LABORATORY Final Result [facility] TO EPIC CONVERSION * CBC W/DIFF AUTOMATED (12/08/2016 10:52 AM BUS AIDE) Pathologist [facility] WBC 7.4 3.8 - 10.8 [facility] TO [...] DRAW FEE 2ND ORDER,PT REFUSED SIMILAR TESTING [id number] REQ FASTING:YES PATIENT REFUSED SOME TESTING; PATIENT ENCOURAGED Test Performed at: [facility] [address] ??[id number] ? KALI HENDRICKS DO,MPH 12/08/2016 10:5 2 AM BUS AIDE 12/08/2016 10:52 AM BUS AIDE Narrative [facility] TO EPIC CONVERSION - 12/08/2016 10:58 AM BUS AIDE Result Communication: Call patient with results Sergo Mackey MD LABORATORY Final Result [facility] TO EPIC CONVERSION documented in this encounter Visit Diagnoses Not on filedocumented in this encounter Care Teams Associate Professor Of Art Relationship Specialty Start Date End Date Sergo Mackey MD PCP - General 04/07/17 Sergo Mackey MD PCP - General 08/05/16 04/06/17 documented as of this encounter
--- OUTSIDE RECORDS SUMMARY | 2024-11-11 20:35 | XMS_ITS | Encounter Summary ---
Author Organization [facility] Address [facility]6 [facility] [place] [address] [place] [address] Care Team Providers Care Professor Of Nursing Name Role Phone Sergo Mackey MD Primary Care Provider Sergo Duncan MD Primary Care Provider Sergo Duncan MD Primary Care Provider Sergo Duncan MD Primary Care Provider Sergo Duncan MD Primary Care Provider Julian short Encounter Details Date Type Department Care Team (Late st Contact Info) Description 04/10/2014 Abstract [facility] Medical Group Family & Internal Medicine [address] [phone] Sergo Mackey MD Social [...] Chief Complaint Free Text: Was seen at [employer] [facility]NA[facility] and needed to start control but b/p [...] Plan 1. LC-C difficile Toxins A+B, EIA [id number] Status: Active Requested for: 10Apr2014 Perform: [facility] Due: [id number] Marked Important; Last Updated By: Shirley Zhang; 04/10/2014 3:52:49 PM; Ordered; For: Chronic diarrhea; Ordered By: Sergo Mackey 2. LC-Ova + Parasite Exam [id number] Status: Active Requested for: 10Apr2014 Perform: [facility] Due: [id number] Marked Important; Last Updated By: Shirley Zhang; 04/10/2014 3:52:49 PM; Ordered; For: Chronic diarrhea; Ordered By: Sergo Mackey 3. LC-Stool Culture [id number] Status: Active Requested for: 10Apr2014 Perform: [facility] Due: [id number] Marked Important; Last Updated By: Shirley Zhang; 04/10/2014 3:52:48 PM; Ordered; For: Chronic diarrhea; Ordered By: Sergo Mackey 4. LC-White Blood Cells ( WBC ), Stool [id number] Status: Active Requested for: 10Apr2014 Perform: [facility] Due: [id number] Marked Important; Last Updated By: Shirley Zhang; 04/10/2014 3:52:48 PM; Ordered; For: Chronic diarrhea; Ordered By: Sergo Mackey 5. O AND P, STOOL AND SMEAR Status: Canceled - Manual Activation Perform: [facility] Due: 17Apr2014; Last Updated By: Shirley Zhang; 04/10/2014 3:52:48 PM; Ordered; For: Chronic diarrhea; Ordered By: Sergo Mackey 6. Stool C Diff Molecular Assay Status: Canceled - Manual Activation Perform: [facility] Due: 17Apr2014; Last Updated By: Shirley Zhang; 04/10/2014 3:52:48 PM; Ordered; For: Chronic diarrhea; Ordered By: Sergo Mackey 7. Stool Culture Status: Canceled - Manual Activation Perform: [facility] Due: 17Apr2014; Last Updated By: [...] Sergo Mackey M.D.; Apr 12 2014 5:45PM DETENTION WORKER (Author) documented in this encounter Plan of Treatment Not on file documented as of this encounter Visit Diagnoses Not on filedocumented in this encounter Care Teams Professor Of Nursing Relationship Specialty Start Date End Date Sergo Mackey MD PCP - General 04/07/17 Sergo Mackey MD PCP - General 08/05/16 04/06/17 Sergo Mackey MD PCP - General 07/16/16 08/04/16 Sergo Mackey MD PCP - General 07/14/16 07/15/16 Sergo Mackey MD PCP - General 06/16/16 07/13/16 documented as of this encounter
--- OUTSIDE RECORDS SUMMARY | 2024-11-11 20:35 | XMS_ITS | Encounter Summary ---
Author Organization [facility] Address [address] [place] [address]. [place] [address] [place] [address] Care Team Providers Care Cutting Machine Tender Helper Name Role Phone Sergo Mackey MD Primary Care Provider Sergo Duncan MD Primary Care Provider Julian short Encounter Details Date Type Department Care Team (Late st Contact Info) Description 08/13/2016 Abstract [facility] Medical Group Family & Internal Medicine [id number] [place] [address] Nellie Moy FNP [address] [place] [address] Social History Tobacco Use Types Packs/Day Years [...] or a stroke while she was in [facility] for mental illness. She brought her blood [...] 05Aug2016 to (Evaluate:07Aug2016) Requested for: 05Aug2016; Last Rx:[id number] Ordered 2. Metoprolol Tartrate 25 MG Oral Tablet; TAKE 1 TABLET TWICE DAILY; Therapy: 05Aug2016 to (Evaluate:01Feb2017); Last Rx:[id number] Ordered Allergies 1. 12 Hour Decongestant TB12 [...] Palpitations; JULIANA = N; Verified Transmission to [employer] 17219; Last Updated By: Dayron Rae; 08/13/2016 3:19:40 PM Signatures Electronically signed by : Nellie Moy, ; Aug 13 2016 5:15PM CARDIOLOGY CLINICAL CONSULTANT (Author) Electronically signed by : Sander Stewart M.D.; Aug 23 2016 9:18PM CARDIOLOGY CLINICAL CONSULTANT (Author) documented in this encounter Plan of Treatment Not on file documented as of this encounter Visit Diagnoses Not on filedocumented in this encounter Care Teams Cutting Machine Tender Helper Relationship Specialty Start Date End Date Sergo Mackey MD PCP - General 04/07/17 Sergo Mackey MD PCP - General 08/05/16 04/06/17 documented as of this encounter
--- OUTSIDE RECORDS SUMMARY | 2024-11-11 20:35 | XMS_ITS | Encounter Summary ---
Author Organization [facility] Address [facility] [facility] [place] [address] [place] [address] Care Team Providers Care Joint Special Operations Name Role Phone Sergo Mackey MD Primary Care Provider Sergo Duncan MD Primary Care Provider Julian short Encounter Details Date Type Department Care Team (Late st Contact Info) Description 10/06/2016 Abstract [facility] Medical Group Family & Internal Medicine [id number] [place] [address] Nellie Moy FNP [address] [place] [address] Social History Tobacco Use Types Packs/Day Years [...] on filedocumented in this encounter Care Teams Joint Special Operations Relationship Specialty Start Date End Date Sergo Mackey MD PCP - General 04/07/17 Sergo Mackey MD PCP - General 08/05/16 04/06/17 documented as of this encounter
--- OUTSIDE RECORDS SUMMARY | 2024-11-11 20:35 | XMS_ITS | Encounter Summary ---
Author Organization [facility] - [facility] Address [facility]6 [facility] [place] [address] [place] [address] Care Team Providers Care Electronic Assembler Name Role Phone Sergo Mackey MD Primary Care Provider Sergo Duncan MD Primary Care Provider Julian short Encounter Details Date Type Department Care Team (Late st Contact Info) Description 10/20/2016 Abstract [facility] Medical Group Family & Internal Medicine [address] [phone] Sergo Mackey MD Social History Tobacco Use [...] URINE BACTERIA CULTURE Routine 10/20/2016 8:19 AM VENEER DRIER TAILER documented in this encounter Results * CULTURE URINE (10/20/2016 8:19 AM VENEER DRIER TAILER) CULTURE URINE Final report [facility] TO EPIC CONVERSION RESULT [facility] T O EPIC CONVERSION Comment: Result Comment: Mixed urogenital chapin Less than 10,000 colonies/mL 10/20/2016 8:19 AM VENEER DRIER TAILER 10/20/2016 8:19 AM VENEER DRIER TAILER Narrative [facility] TO EPIC CONVERSION - 10/22/2016 5:12 AM VENEER DRIER TAILER Result Communication: No patient communication needed at this time us Angeli DUNAWAY MICROBIOLOGY - GENERAL GREGORIO IBARRA Final Result [facility] TO EPIC CONVERSION documented in this encounter Visit Diagnoses Not on filedocumented in this encounter Care Teams Electronic Assembler Relationship Specialty Start Date End Date Sergo Mackey MD PCP - General 04/07/17 Sergo Mackey MD PCP - General 08/05/16 04/06/17 documented as of this encounter
--- OUTSIDE RECORDS SUMMARY | 2024-11-11 20:35 | XMS_ITS | Encounter Summary ---
Author Organization [facility] Address [address] [place] [address]. [place], [place] [address] [place] [address] Care Team Providers Care Caltrans Equipment Operator Name Role Phone Sergo Mackey MD Primary Care Provider Julian short Encounter Details Date Type Department Care Team (Latest Contact Info) Description 04/08/2017 Abstract [facility] Medical Group [...] on filedocumented in this encounter Care Teams Caltrans Equipment Operator Relationship Specialty Start Date End Date Sergo Mackey MD PCP - General 04/07/17 documented as of this encounter
--- OUTSIDE RECORDS SUMMARY | 2024-11-11 20:35 | XMS_ITS | Encounter Summary ---
Author Organization [facility] Address [facility]6 [facility]. [place], [place] [address] [place] [address] Care Team Providers Care Biology Instructor Name Role Phone Sergo Mackey MD Primary Care Provider Sergo Duncan MD Primary Care Provider Sergo Duncan MD Primary Care Provider Sergo Duncan MD Primary Care Provider Julian labSergo Stratton MD Primary Care Provider [facility] Encounter Details Date Type Department Care Team (Latest Contact Info) Description 07/03/2016 Abstract [facility] Medical Group Social History Tobacco Use Types [...] on filedocumented in this encounter Care Teams Biology Instructor Relationship Specialty Start Date End Date Sergo Mackey MD PCP - General 04/07/17 Sergo Mackey MD PCP - General 08/05/16 04/06/17 Sergo Mackey MD PCP - General 07/16/16 08/04/16 Sergo Mackey MD PCP - General 07/14/16 07/15/16 Sergo Mackey MD PCP - General 06/16/16 07/13/16 documented as of this encounter
--- OUTSIDE RECORDS SUMMARY | 2024-11-11 20:35 | XMS_ITS | Encounter Summary ---
Author Organization [facility] Address [address] [place] [address]. [place], [place] [address] [place] [address] Care Team Providers Care Conformal Pad Former Name Role Phone Sergo Mackey MD Primary Care Provider Sergo Duncan MD Primary Care Provider Julian short Encounter Details Date Type Department Care Team (Latest Contact Info) Description 08/06/2016 Abstract [facility] Medical Group , [...] Task Name: Medical Complaint Callback Assigned To: [facility] Nurse Team Regarding [...] Eloisa Wolfe R.N.; Aug 06 2016 1:30PM CLINIC RECEPTIONIST (Author) documented in this encounter Plan of Treatment Not on file documented as of this encounter Visit Diagnoses Not on filedocumented in this encounter Care Teams Conformal Pad Former Relationship Specialty Start Date End Date Sergo Mackey MD PCP - General 04/07/17 Sergo Mackey MD PCP - General 08/05/16 04/06/17 documented as of this encounter
--- OUTSIDE RECORDS SUMMARY | 2024-11-11 20:35 | XMS_ITS | Encounter Summary ---
Author Organization [facility] Address [facility] [place] [address] [place] [address] Care Team Providers Care Anaesthetic Technician Name Role Phone Sergo Mackey MD Primary Care Provider Sergo Duncan MD Primary Care Provider Sergo Duncan MD Primary Care Provider Julian short Encounter Details Date Type Department Care Team (Latest Contact Info) Description 07/24/2016 Abstract [facility] Medical Group Social History [...] Verified Results Ur Fract Catecholamines 24 Hr [id number] 03:35PM Sergo Mackey Test Name Result Flag [...] 480 Unit: mcg/24 h Test Performed by [facility], [address] [place] [address] Aaron Kennedy M.D., Ph.D., Director of Laboratories , [facility] [id number] Discussion/Summary The detailed analysis of hormones in [...] Eloisa Wolfe R.N.; Aug 03 2016 3:27PM GLAZING MACHINE OPERATOR (Author) documented in this encounter Plan of Treatment Not on file documented as of this encounter Visit Diagnoses Not on filedocumented in this encounter Care Teams Anaesthetic Technician Relationship Specialty Start Date End Date Sergo Mackey MD PCP - General 04/07/17 Sergo Mackey MD PCP - General 08/05/16 04/06/17 Sergo Mackey MD PCP - General 07/16/16 08/04/16 documented as of this encounter
--- OUTSIDE RECORDS SUMMARY | 2024-11-11 20:35 | XMS_ITS | Encounter Summary ---
Author Organization [facility] Address [address] [place] [address]. [place], [place] [address] [place] [address] Care Team Providers Care Motorcycle Service Technician Name Role Phone Sergo Mackey MD Primary Care Provider Sergo Duncan MD Primary Care Provider Julian short Encounter Details Date Type Department Care Team (Latest Contact Info) Description 03/17/2017 Abstract [facility] Medical Group Sergo Mackey MD Social [...] filedocumented in this encounter Care Teams Motorcycle Service Technician Relationship Specialty Start Date End Date Sergo Mackey MD PCP - General 04/07/17 Sergo Mackey MD PCP - General 08/05/16 04/06/17 documented as of this encounter
--- OUTSIDE RECORDS SUMMARY | 2024-11-11 20:37 | XMS_ITS | Encounter Summary ---
Author Organization [facility] Address [address] [place] [address] Phone Care Team Providers Care Imaging Account Manager Name Role Phone Trenton Lomeli MD Primary Care Provider [phone] Neelima Velazquez MD Unavailable [phone] Encounter Details Date Type Department Care Team (Late st Contact Info) Description 12/29/2022 Telephone [facility] Cardiology [address] [facility] Advanced Medicine 8th [place] [address] [place] [address] Maura [place] MD [address] [facility] [address] [place], [place] [id number] Social History Tobacco Use Types Packs/Day Years [...] on file Legal Sex Female 4:15 AM ASSEMBLER SEAT Gender Identity Not on file Sexual Orientation Not on file 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 Please call to reschedule. MBLER SEAT documented in this encounter Plan of Treatment Not on file documented as of this encounter Visit Diagnoses Not on filedocumented in this encounter Care Teams Imaging Account Manager Relationship Specialty Start Date End Date Trenton Lomeli MD PCP - General Family Medicine 10/06/21 Neelima Velazquez MD [address] [address] Consulting Physician Gynecology 10/06/21 documented as of this encounter
--- OUTSIDE RECORDS SUMMARY | 2024-11-11 20:37 | XMS_ITS | Referral Summary ---
Author Organization [facility] Address [address] [place] [address] Care Team Providers Care Fiber Designer Name Role Phone Trenton Lomeli MD Primary Care Provider [phone] Neelima Velazquez MD Unavailable [phone] Maura Wilson MD Unavailable [phone] Encounters Date Type Department Care Team Description 11/09/2024 12:41 PM AUTO DAMAGE ESTIMATOR - 11/10/2024 2:10 PM [facility] Hospital Encounter [facility] [address] [place] [id number] Priscila Monaco MD Trillo Alvarez, Ludwig, MD Borderline personality disorder (CMS/HCC) (HCC) (Primary Dx); Somatization disorder; Gastroesophageal reflux disease, unspecified whether esophagitis present; Irritable bowel syndrome with diarrhea; Non-cardiac chest pain Discharge Disposition: Discharge to home or self care 11/08/2024 5:57 AM AUTO DAMAGE ESTIMATOR - 11/09/2024 11:57 AM [facility] Emergency [address] [address] Chest pain, unspecified type (Primary Dx); Irritable bowel syndrome with diarrhea; Suicidal ideation; Anxiety Discharge Disposition: Discharge to psych hospital or psych unit 11/06/2024 Telephone [facility] Medical Group Primary Care at [address] [phone] Trenton Lomeli MD Medical Question/Miscellaneous 11/06/2024 10:30 AM AUTO DAMAGE ESTIMATOR Telemedicine [facility] Primary Care at [address] [phone] Trenton Lomeli MD Irritable bowel syndrome with diarrhea (Primary Dx) 11/03/2024 10:04 PM AUTO DAMAGE ESTIMATOR - 11/04/2024 12:14 AM AUTO DAMAGE ESTIMATOR Emergency [facility] Emergency Department [address] [place] [address] Job James MD Sleep disturbance (Primary Dx); Chronic abdominal pain Discharge Disposition: Discharge to home or self care 11/03/2024 Orders Only [facility] Primary Care at [address] [phone] Trenton Lomeli MD 11/03/2024 Nurse Triage [facility] Primary Care at [address] [phone] Trenton Lomeli MD 11/03/2024 Nurse Triage [facility] Primary Care at [address] [phone] Angela Kumar RN 11/02/2024 1:41 PM AUTO DAMAGE ESTIMATOR - 11/02/2024 11:59 PM AUTO DAMAGE ESTIMATOR Hospital [address] [address] Diarrhea of presumed infectious origin Discharge Disposition: Discharge to home or self care 11/02/2024 3:00 PM AUTO DAMAGE ESTIMATOR Lab [facility] Group Outpatient Lab at [address] [phone] 11/02/2024 1:45 PM AUTO DAMAGE ESTIMATOR Lab [facility] Outpatient Lab at [address] [address] Hypercholesterolemia (Primary Dx) 11/02/2024 1:15 PM AUTO DAMAGE ESTIMATOR Office Visit [facility] Primary Care at [address] [phone] Trenton Lomeli MD Diarrhea of presumed infectious origin (Primary Dx) 10/30/2024 Nurse Triage [facility] Primary Care at [address] [phone] Trenton Lomeli MD 10/30/2024 Orders Only [facility] Primary Care at [address] [phone] ProviderMisael MD from Last 3 Months Allergies Active Allergy Reactions Criticality Noted Date Comments Aripiprazole Muscle pain Medium 05/12/2017 Amoxicillin-Pot Clavulanate Other (See comments) Low 10/03/2022 Caused C-diff Lamotrigine Rash Medium 05/12/2017 Paroxetine Pseudoephedrine Itching Low 05/12/2017 Serotonin Mental status changes Low 05/12/2017 Topiramate Dystonia High 05/12/2017 Medications diphenoxylate- atropine (LOMOTIL) 2.5-0.025 mg per tabletIndicati ons:diarrhea Take 1 tablet by mouth 2 (two) times a day as needed for diarrhea 30 tablet 11/02/19 25 Active dicyclomine (BENTYL) 10 mg capsuleIndicat ions:Irritable Bowel Syndrome Take 1 capsule (10 mg total) by mouth 4 (four) times a day before meals and nightly 120 capsule 11/02/19 25 026 Active ondansetron (Zofran) 4 mg tabletIndicati ons:functional GI symptoms Take 1 tablet (4 mg total) by mouth every 8 (eight) hours as needed for nausea or vomiting 20 tablet 1 11/02/[address] (PROTONIX) 40 mg EC tabletIndicati ons:Treatment of Non-Bleeding Gastric Disorder 11/06/19 25 Active sucralfate (CARAFATE) 1 gram tabletIndicati ons:Heartburn 11/06/19 25 Active cannabidiol, CBD, (EPIDIOLEX) 100 mg/mL solution Take 5 mg/kg by mouth nightly as needed 025 Discontinued(St op Taking at Discharge) multivitamin capsule Take 1 capsule by mouth daily 025 Discontinued(St op Taking at Discharge) BIOTIN ORAL Take by mouth 025 Discontinued(St op Taking at Discharge) hydrOXYzine (ATARAX) 50 mg tablet Take 1 tablet (50 mg total) by mouth every 6 (six) hours as needed 07/31/20 22 025 Discontinued(St op Taking at Discharge) dicyclomine (BENTYL) 10 mg capsule 11/01/19 25 025 Discontinued metoprolol tartrate (LOPRESSOR) 25 mg immediate release tablet Take 0.5 tablets (12.5 mg total) by mouth 2 (two) times a day as needed (BP above 140/90) 30 tablet 11/03/19 25 025 Discontinued(St op Taking at Discharge) temazepam (RESTORIL) 15 mg capsuleIndicat ions:Insomnia Take 1 capsule (15 mg total) by mouth nightly as needed for sleep for up to 20 days 20 capsule 11/03/19 025 Discontinued(St op Taking at Discharge) Active Problems Problem Noted Date Diagnosed Date Somatization disorder 11/10/2024 Borderline personality disorder 11/09/2024 GERD (gastroesophageal reflux disease) 5 Assessment & Plan (11/09/2024 3:48 PM AUTO DAMAGE ESTIMATOR): She has been on PPI and sucralfate at home, continued Lactose intolerance 11/06/2024 Gluten intolerance 11/06/2024 Hypercholesterolemia 06/16/2023 Morbid (severe) obesity due to excess calories 0 11/09/2022 Assessment & Plan (11/09/2022 4:02 PM AUTO DAMAGE ESTIMATOR): BMI Follow-up includes: nutrition counseling, exercise counseling and education provided. Body mass index (BMI) 45.0-49.9, adult 3 Well adult exam 10/08/2021 Assessment & Plan (11/10/2022 2:28 PM AUTO DAMAGE ESTIMATOR): A(n) yearly well adult visit has been [...] prn Assessment & Plan (10/08/2021 2:57 PM AUTO DAMAGE ESTIMATOR): A initial well visit to establish care [...] syndrome with diarrhea 7 Assessment & Plan (11/09/2024 3:45 PM AUTO DAMAGE ESTIMATOR): Complains of intermittent diarrhea associated abdominal cramping Exam unremarkable, euvolemic Continued home mental, Skyemotil Advised to keep food diary and notes symptoms especially with gluten and lactose Assessment & Plan (11/06/2024 11:14 AM AUTO DAMAGE ESTIMATOR): IBS vs infectious (prolonged effect of viral gastoenteritis? With [place] or similar) will have her use omeprazole OTC 40 mg until she can moss picker her medications Resuming probiotic advised bland diet today, stay hydrated; avoid sugary foods (rice may be okay) we will try to review [place] record, ut from her portal, the CT was unremarkable urged her to moss picker her Rx from pharamcy as soon as feasible, but will not start the [facility] referral may be needed Paroxysmal nocturnal dyspnea 10/02/2016 Overview (02/04/2017): Paroxysmal nocturnal dyspnea Essential hypertension 10/02/2016 Overview (02/04/2017): Essential hypertension Palpitations 10/02/2016 Overview (02/04/2017): Palpitations Snoring 10/02/2016 Overview (02/05/2017): Snoring Non-cardiac chest pain 10/02/2016 Overview (02/05/2017): Atypical chest pain Assessment & Plan (11/09/2024 3:49 PM AUTO DAMAGE ESTIMATOR): Recurrent chest pain, radiating to head, without any exacerbation/relieving factor. Not affected by exertion EKG x2 unremarkable, troponin x2 unremarkable Recommended to use Tylenol PO and topical diclofenac gel given most likely either musculoskeletal/in the setting of GERD Depression 10/02/2016 Overview (02/05/2017): Depression, unspecified depression [...] drink = 0.6 oz pur e alcohol) [facility] Utilities Answer Date Recorded In the past 12 months has e [employer], gas, oil, or water [employer] threatened to shut off services in your home? No 11/10/2024 Social Connection and Isolation Panel [NHANES] A nswer Date Recorded In a typical week, how many times do you talk on the phone with family, friends, or neighbors? Three times a week 11/10/2024 How often do you get togethe r with friends or relatives? Three times a week 11/10/2024 How often do you attend chur ch or zoroastrianism services? Never 11/10/2024 Do you belong to any clubs o r organizations such as anabaptist groups, unions, fraternal or athletic groups, or school groups? No 11/10/2024 How often do you attend meet ings of the clubs or organizations you belong to? Never 11/10/2024 Are you , , di vorced, , never , or living with a partner? Never 11/10/2024 AUDIT-C Answer Date Recorded Q1: How often do you have a drink containing alc ohol? Never 10/06/2021 Average Number of Drinks Not on file 021 Q3: How often do you have si x or more drinks on one occasion? Never 10/06/2021 Overall Financial Resource Strain (CARDIA) Answe r Date Recorded How hard is it for you to pa y for the very basics like food, housing, medical care, and heating? Not very hard 11/10/2024 PHQ-2 Answer Date Recorded PHQ-2 Total Score (If total score is 3 or more points, staff should administer the PHQ-9) 0 11/02/2024 [facility] - Occupational Stress Questionnaire Answer Date Recorded Do you feel stress - tense, restless, nervous, or anxious, or unable to sleep at night because your mind is troubled all the time - these days? Very much 11/10/2024 Exercise Vital Sign Answer Date Recorde d On average, how many days pe r week do you engage in moderate to strenuous exercise (like a brisk walk)? 0 days 11/10/2024 On average, how many minutes do you engage in exercise at this level? 0 min 11/10/2024 Hunger Vital Sign Answer Date Recorded Within the past 12 months, y ou worried that your food would run out before you got the money to buy more. Never true 11/10/19 25 Within the past 12 months, t he food you bought just didn't last and you didn't have money to get more. Never true 11/10/2024 PRAPARE - Transportation Answer Date Re corded In the past 12 months, has l ack of transportation kept you from medical appointments or from getting medications? No 11/01 In the past 12 months, has l ack of transportation kept you from meetings, work, or from getting things needed for daily living? No 11/10/2024 Personal Safety Answer Date Recorded Have you ever been in or are you currently in a harmful physical or emotional relationship or is someone making you feel afraid or unsafe? Denies 11/09/2024 Education Answer Date Recorded What is the highest level of school you have completed or the highest degree you have received? 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 Not on file Not on file Not on file Last Filed Vital Signs Vital Sign Reading Time Taken Comments Blood Pressure 128/80 11/10/2024 9:11 AM AUTO DAMAGE ESTIMATOR Pulse 95 11/10/2024 9:11 AM AUTO DAMAGE ESTIMATOR Temperature 36.9 ??C (98.4 ??F) 11/10/2024 9:11 AM CS T Respiratory Rate 18 11/10/2024 9:11 AM AUTO DAMAGE ESTIMATOR Oxygen Saturation 96% 11/10/2024 9:11 AM AUTO DAMAGE ESTIMATOR Inhaled Oxygen Concentration - - Weight 115.5 kg (254 lb 9.6 oz) 11/09/2024 1:30 PM AUTO DAMAGE ESTIMATOR Height 170.2 cm (5' 7.01 ) 11/09/2024 1:30 PM CS T Body Mass Index 39.87 11/09/2024 1:30 PM AUTO DAMAGE ESTIMATOR Plan of Treatment Not on file Procedures Procedure Name Priority Date/Time Associated Diagnosis Comments POCT GLUCOSE DEVICE Routine 11/09/2024 1 :58 AM AUTO DAMAGE ESTIMATOR TROPONIN T HIGH-SENSITIVITY 2-HOUR Timed 11/08/2024 8:01 AM AUTO DAMAGE ESTIMATOR XR CHEST 1 VIEW ED 11/08/2024 6:18 AM AUTO DAMAGE ESTIMATOR EGFR STAT 11/08/2024 6:11 AM AUTO DAMAGE ESTIMATOR DIFFERENTIAL AUTO STAT 11/08/2024 6:1 1 AM AUTO DAMAGE ESTIMATOR DRUGS OF ABUSE SCREEN, URINE WITHOUT CONFIRMATION STAT 11/08/2024 6:11 AM AUTO DAMAGE ESTIMATOR ETHANOL STAT 11/08/2024 6:11 AM AUTO DAMAGE ESTIMATOR TROPONIN T HIGH-SENSITIVITY SERIES (BASELINE, 2HR, 4HR, 6HR) STAT 11/08/2024 6:11 AM AUTO DAMAGE ESTIMATOR COMPREHENSIVE METABOLIC PANEL STAT 11/08/2024 6:11 AM AUTO DAMAGE ESTIMATOR CBC WITH AUTO DIFFERENTIAL STAT 11/08/2024 6:11 AM AUTO DAMAGE ESTIMATOR INFLUENZA A/B, RSV, AND COVID-19 PCR Routine 11/08/2024 6:11 AM AUTO DAMAGE ESTIMATOR URINALYSIS AND REFLEX TO MICROSCOPIC AND CULTURE STAT 11/08/2024 6:11 AM AUTO DAMAGE ESTIMATOR ECG 12-LEAD STAT 11/08/2024 6:10 AM AUTO DAMAGE ESTIMATOR POCT HCG, URINE Routine 11/08/2024 6:10 AM AUTO DAMAGE ESTIMATOR ECG 12-LEAD Routine 11/03/2024 11:04 PM [address] HEAD WO CONTRAST ED 11/03/2024 1 0:53 PM AUTO DAMAGE ESTIMATOR MAGNESIUM Routine 11/03/2024 10:46 PM AUTO DAMAGE ESTIMATOR THYROID FUNCTION CASCADE Add-On 11/03/2024 10:46 PM AUTO DAMAGE ESTIMATOR ERYTHROCYTE SEDIMENTATION RATE STAT 11/03/2024 10:46 PM AUTO DAMAGE ESTIMATOR CREATINE KINASE (CK), TOTAL STAT 11/03/2024 10:46 PM AUTO DAMAGE ESTIMATOR PRO B-TYPE NATRIURETIC PEPTIDE STAT 11/03/2024 10:46 PM AUTO DAMAGE ESTIMATOR CRP (ACUTE PHASE) STAT 11/03/2024 10: 46 PM AUTO DAMAGE ESTIMATOR TROPONIN T HIGH-SENSITIVITY 2-HOUR Timed 11/03/2024 10:46 PM AUTO DAMAGE ESTIMATOR EGFR STAT 11/03/2024 7:40 PM AUTO DAMAGE ESTIMATOR DIFFERENTIAL AUTO STAT 11/03/2024 7:4 0 PM AUTO DAMAGE ESTIMATOR TROPONIN T HIGH-SENSITIVITY SERIES (BASELINE, 2HR, 4HR, 6HR) STAT 11/03/2024 7:40 PM AUTO DAMAGE ESTIMATOR COMPREHENSIVE METABOLIC PANEL STAT 11/03/2024 7:40 PM AUTO DAMAGE ESTIMATOR CBC WITH AUTO DIFFERENTIAL STAT 11/03/2024 7:40 PM AUTO DAMAGE ESTIMATOR XR CHEST 1 VIEW ED 11/03/2024 7:17 PM AUTO DAMAGE ESTIMATOR ECG 12-LEAD STAT 11/03/2024 6:34 PM AUTO DAMAGE ESTIMATOR CRYPTOSPORIDIUM AND GIARDIA ANTIGEN ASSAY Routine 11/02/2024 1:41 PM AUTO DAMAGE ESTIMATOR Diarrhea of presumed infectious origin HEPATITIS A ANTIBODY, IGM Routine 11/02/2024 1:41 PM AUTO DAMAGE ESTIMATOR Diarrhea of presumed infectious origin CT ABDOMEN PELVIS W CONTRAST Schedule Routine, Read Routine (OP Routine) 10/28/2024 1:10 PM AUTO DAMAGE ESTIMATOR PAP SMEAR Routine 03/19/2021 from Last 3 Months or Most Recently Relevant to Health Maintenance Results * POCT glucose (11/09/2024 1:58 AM AUTO DAMAGE ESTIMATOR) Glucose, POC 99 70 - 199 mg/dL Blood 11/09/2024 1:58 AM AUTO DAMAGE ESTIMATOR 11/09/2024 1:58 AM AUTO DAMAGE ESTIMATOR us Notinfile Unknown LAB POCT ORDERABLES - DEVICE F inal Result [facility] [address] [facility] Department [place] [address] * Troponin T high-sensitivity 2-hour (11/08/2024 8:01 AM AUTO DAMAGE ESTIMATOR) Trop T hs <6 <=14 ng/L Comment: Interpretive Data For further hscTnT resources including the diagnostic algorithm and an aid in interpretation, copy and paste this link: https://nrl.testcatalog.org/show/hsTrop Current Interpretive Data last revised 2020. Trop T hs delta 0 ng/L ARI Trop T hs interp Insignificant ARI Blood 11/08/2024 8:01 AM AUTO DAMAGE ESTIMATOR 11/08/2024 8:10 AM AUTO DAMAGE ESTIMATOR us Jaclyn Xavier MD LAB BLOOD ORDERABLES Fin al Result [facility] [address] [facility] Department [place] [address] * XR Chest 1 Vw Portable (if patient condition/safety warrant portable) (11/08/2024 6:18 AM AUTO DAMAGE ESTIMATOR) Anatomical Region Laterality Modality Body, Chest N/A Computed Radiogr aphy 11/08/2024 6:27 AM AUTO DAMAGE ESTIMATOR Narrative 11/08/2024 6:29 AM AUTO DAMAGE ESTIMATOR EXAM DESCRIPTION: ?? XR CHEST 1 VIEW REASON FOR STUDY: ?? chest pain ?? BIBEMS from home having chest discomfort for a week, non radiating, pressure like pain and SI without any plan. Was seen 3 days ago at [facility] and cardiac work up done. No heart [...] D: ??11/08/2024 6:29 AM T: Report ID: [id number] Reading Location: ??[id number] Procedure Note Gillian Stokes MD - 11/08/2024 EXAM DESCRIPTION: XR CHEST 1 VIEW REASON FOR STUDY: chest pain BIBEMS from home having chest discomfort for a week, non radiating,pressure like pain and SI without any plan. Was seen 3 days ago at [facility] and cardiac work up done. [...] Gillian Stokes M.D. SN T: Report ID: [id number] Reading Location: [id number] Jaclyn Xavier MD IMG XR PROCEDURES Final Result * Troponin T high-sensitivity series (baseline, 2hr, 4hr, 6hr) (11/08/2024 6:11 AM AUTO DAMAGE ESTIMATOR) Trop T hs <6 <=14 ng/L Comment: Interpretive Data For further hscTnT resources including the diagnostic algorithm and an aid in interpretation, copy and paste this link: https://nrl.testcatalog.org/show/hsTrop Current Interpretive Data last revised 2020. Blood 11/08/2024 6:11 AM AUTO DAMAGE ESTIMATOR 11/08/2024 6:17 AM AUTO DAMAGE ESTIMATOR Result [facility] Jaclyn Xavier MD LAB BLOOD ORDERABLES Fin al Result Performing Organization Address [facility] Co de Phone Number [facility] [address] [address] * Influenza A/B, RSV, and COVID-19 PCR Nasopharyngeal (11/08/2024 6:11 AM AUTO DAMAGE ESTIMATOR) Pathologist [facility] COVID-19 RNA Negative Negative Influenza A RNA Negative Negative [facility] Influenza B RNA Negative Negative [facility] RSV RNA Negative Negative [facility] Comment: Interpretive data: Testing performed by [facility]. This test is performed using the Rec[employer] Xpert Xpress CoV-2/Flu/RSV plus assay. This is a multiplex, real-time reverse transcriptase PCR assay intended for the qualitative detection of nucleic acid from SARS-CoV-2, influenza A, influenza B, and respiratory syncytial virus. This assay has been cleared by the [place] Food and Drug administration. The performance characteristics have been verified by the [facility]. ??Results must be considered in the clinical context, and a negative result does not rule out infection. Interpretive Data last revised 2023 Nasopharyngeal 11/08/2024 6: 11 AM AUTO DAMAGE ESTIMATOR 11/08/2024 6:14 AM AUTO DAMAGE ESTIMATOR Narrative [facility] - 11/08/2024 6:54 AM AUTO DAMAGE ESTIMATOR Is the Patient experiencing symptoms consistent with COVID?->No Jaclyn Xavier MD LAB MICROBIOLOGY - GENER AL ORDERABLES Final Result Performing Organization Address [facility] Co de Phone Number [address] [address] * eGFR (11/08/2024 6:11 AM AUTO DAMAGE ESTIMATOR) Pathologist [facility] eGFR >90 >=60 mL/min/1. 73 m2 Comment: [...] last reviewed 2021. Blood 11/08/2024 6:11 AM AUTO DAMAGE ESTIMATOR 11/08/2024 6:17 AM AUTO DAMAGE ESTIMATOR us Jaclyn Xavier MD LAB BLOOD ORDERABLES Fin al Result Performing Organization Address City/State/[facility] Co de Phone Number [facility] [address] [facility] Department [place] [address] * Differential, auto (11/08/2024 6:11 AM AUTO DAMAGE ESTIMATOR) Pathologist [facility] Neutrophil abs 4.6 1.5 - 6.5 K/cumm Imm gran abs 0.0 0.0 - 0.1 K/cumm [facility] Lymphocyte abs 2.5 0.8 - 3.3 K/cumm [facility] Monocyte abs 0.7 0.2 - 0.8 K/cumm [facility] Eosinophil abs 0.2 0.0 - 0.5 K/cumm [facility] Basophil abs 0.1 0.0 - 0.1 K/cumm [facility] Neutrophil pct 57.1 % [facility] Comment: Interpretive Data Percent cell count reference ranges are not reported, since discordance with absolute values may lead to misinterpretation of CBC data. Current Interpretive Data was last revised on 2018. Imm gran pct 0.3 % [facility] Comment: Interpretive Data Percent cell count reference ranges are not reported, since discordance with absolute values may lead to misinterpretation of CBC data. Current Interpretive Data was last revised on 2018. Lymphocyte pct 31.0 % [facility] Comment: Interpretive Data Percent cell count reference ranges are not reported, since discordance with absolute values may lead to misinterpretation of CBC data. Current Interpretive Data was last revised on 2018. Monocyte pct 8.5 % [facility] Comment: Interpretive Data Percent cell count reference ranges are not reported, since discordance with absolute values may lead to misinterpretation of CBC data. Current Interpretive Data was last revised on 2018. Eosinophil pct 2.3 % [facility] Comment: Interpretive Data Percent cell count reference ranges are not reported, since discordance with absolute values may lead to misinterpretation of CBC data. Current Interpretive Data was last revised on 2018. Basophil pct 0.8 % [facility] Comment: Interpretive Data Percent cell count reference ranges are not reported, since discordance with absolute values may lead to misinterpretation of CBC data. Current Interpretive Data was last revised on 2018. Blood 11/08/2024 6:11 AM AUTO DAMAGE ESTIMATOR 11/08/2024 6:15 AM AUTO DAMAGE ESTIMATOR us Jaclyn Xavier MD LAB BLOOD ORDERABLES Fin al Result [facility] [address] [facility] Department [place] [address] * Urinalysis reflex to microscopic and culture Urine (11/08/2024 6:11 AM AUTO DAMAGE ESTIMATOR) Color, ur Straw Yellow Clarity, ur Clear Clear ARI Specific gravity, ur 1.003 1.003 - 1.030 [facility] pH, urine 6.5 [facility] Comment: Interpretive Data ? Urine pH is affected by diet, medications, systemic acid-base disturbances, and renal tubular function. ??pH may affect urinary stone formation. ??For example, urine pH below 6.0 may help reduce the tendency for calcium phosphate stones and pH greater than 6.0 may reduce the tendency for uric acid stone formation. Source: [facility] Current Interpretive Data was last revised on 2017 Protein, ur ql Negative Negative [facility] Glucose, ur ql Negative Negative [facility] Ketones, ur Negative Negative [facility] Bilirubin, ur Negative Negative [facility] Blood, ur Negative Negative [facility] Urobilinogen, ur <2.0 <2.0 mg/dL [facility] Nitrite, ur Negative Negative [facility] Leukocyte esterase, ur Negative Negative [facility] UA reflex comment Reflex conditions for microscopic UA and culture not met. [facility] Urine 11/08/2024 6:11 AM AUTO DAMAGE ESTIMATOR 11/08/2024 6:15 AM AUTO DAMAGE ESTIMATOR Jaclyn Xavier MD LAB MICROBIOLOGY - GENER AL ORDERABLES Final Result [facility] [address] [facility] Department [place] [address] * CBC with auto differential (11/08/2024 6:11 AM AUTO DAMAGE ESTIMATOR) WBC 8.0 3.8 - 9.9 K/cumm Hgb 14.1 11.9 - 15.5 g/dL [facility] Hct 43.4 35.6 - 45.5 % [facility] Plt 314 150 - 400 K/cumm [facility] MPV 9.2 9.1 - 12.3 fL [facility] RBC 4.92 3.90 - 5.20 M/cumm [facility] MCV 88.2 81.3 - 96.4 fL [facility] MCH 28.7 27.1 - 33.3 pg [facility] MCHC 32.5 32.3 - 35.7 g/dL [facility] RDW CV 12.6 11.1 - 14.9 % [facility] RDW SD 40.3 35.7 - 48.1 fL [facility] NRBC abs 0.00 0.00 - 0.01 K/cumm ARI Blood (Blood, Venous) 11/08/2024 6:11 AM AUTO DAMAGE ESTIMATOR 11/08/2024 6:15 AM AUTO DAMAGE ESTIMATOR Jaclyn Xavier MD LAB BLOOD ORDERABLES Fin al Result [facility] [address] [facility] Department [place] [address] * Drugs of Abuse Screen, Urine without Confirmation (11/08/2024 6:11 AM AUTO DAMAGE ESTIMATOR) Amphetamine, ur Not Detected CutOff 500ng/mL Comment: Interpretive Data - Amphetamines: ??Samples containing greater than 500 ng/mL d-methamphetamine ??or other cross-reacting amphetamine compounds are reported as positive. ??Amphetamine immunoassays are subject to significant false positive rates due to cross-reactivity of non-amphetamine drugs. Confirmatory testing required for definitive results. Current Interpretive Data was last reviewed 2023. Barbiturates, ur Not Detected CutOff 200ng/mL ARI Comment: Interpretive Data - Barbiturates: ??Samples containing greater than 200 ng/mL secobarbital or other cross-reacting barbiturate compounds are reported as positive. ??False positive and false negative results are possible. Confirmatory testing required for definitive results. Current Interpretive Data was last reviewed 2023. Benzodiazepines, ur Not Detected CutOff 100ng/mL ARI Comment: Interpretive Data - Benzodiazepines: ??Samples containing greater than 100 ng/mL nordiazepam or other cross-reacting compounds are reported as positive. False positive and false negative results are possible. Confirmatory testing required for definitive results. Current Interpretive Data was last reviewed 2023. Cannabinoids, ur Not Detected CutOff 50 ng/mL ARI Comment: Interpretive Data - Cannabinoids: ??Samples containing greater than 50 ng/mL delta-9 THC -COOH or other cross-reacting compounds are reported as positive. ??False positive and false negative results are possible. ??Confirmatory testing required for definitive results. Current Interpretive Data was last reviewed 2023. Cocaine, ur Not Detected CutOff 150ng/mL ARI Comment: Interpretive Data - Cocaine: ??Samples containing greater than 150 ng/mL benzoylecgonine or other cross-reacting compounds are reported as positive. False positive and false negative results are possible. Confirmatory testing required for definitive results. Current Interpretive Data was last reviewed 2023. Fentanyl, Ur Not Detected CutOff 5 ng/mL [facility] Comment: Interpretive Data - Fentanyl: ?? Samples containing greater than 5 ng/mL norfentanyl, fentanyl, or other cross-reacting fentanyl compounds are reported as positive. False positive and false negative results are possible. Confirmatory testing required for definitive results. Current Interpretive Data was last reviewed 2024. Methadone, ur Not Detected CutOff 300ng/mL [facility] Comment: Interpretive Data - Methadone: ??Samples containing greater than 300 ng/mL d,l-methadone or other cross-reacting compounds are reported as positive. ??False positive and false negative results are possible. Confirmatory testing required for definitive results. Current Interpretive Data was last reviewed 2023. Opiates, ur Not Detected CutOff 300ng/mL [facility] Comment: Interpretive Data - Opiates: ??Samples containing greater than 300 ng/mL morphine or other cross-reacting compounds are reported as positive. ??False positive and false negative results are possible. Confirmatory testing required for definitive results. Current Interpretive Data was last reviewed 2023. Oxycodone, ur Not Detected CutOff 100ng/mL [facility] Comment: Interpretive Data - Oxycodone: ??Samples containing greater than 100 ng/mL oxycodone or other cross-reacting compounds are reported as ??positive. ??False positive and false negative results are possible. Confirmatory testing required for definitive results. Current Interpretive Data was last reviewed 2023. Phencyclidine, ur Not Detected CutOff 25 ng/mL [facility] Comment: Interpretive Data - Phencyclidine: ??Samples containing [...] revised on 2018. Urine 11/08/2024 6:11 AM AUTO DAMAGE ESTIMATOR 11/08/2024 6:15 AM AUTO DAMAGE ESTIMATOR Narrative ARI - 11/08/2024 6:47 AM AUTO DAMAGE ESTIMATOR Drug of Abuse screening is performed by immunoassay for medical purposes only. ??This is not to be used for Pain Management purposes. Jaclyn Xavier MD LAB URINE ORDERABLES Fin al Result Performing Organization Address [facility] de Phone Number [address] [place] [address] * Ethanol (11/08/2024 6:11 AM AUTO DAMAGE ESTIMATOR) Pathologist [facility] Ethanol <10 <=10 mg/dL Comment: Interpretive Data Legal limit of intoxication > or = 80 mg/dL Levels > or = 400 mg/dL are potentially TOXIC. Current interpretive data was last revised on 2018. Blood 11/08/2024 6:11 AM AUTO DAMAGE ESTIMATOR 11/08/2024 6:17 AM AUTO DAMAGE ESTIMATOR Jaclyn Xavier MD LAB BLOOD ORDERABLES Fin al Result Performing Organization Address [facility] de Phone Number [address] [address] * Comprehensive metabolic panel (11/08/2024 6:11 AM AUTO DAMAGE ESTIMATOR) [facility] Sodium 140 135 - 145 mmol/L Potassium, pl 3.6 3.3 - 4.9 mmol/L [facility] Chloride 103 97 - 110 mmol/L [facility] CO2 26 22 - 32 mmol/L [facility] Anion gap 11 2 - 15 mmol/L [facility] BUN 8 6 - 25 mg/dL [facility] Creatinine 0.63 0.60 - 1.10 mg/dL [facility] Glucose 113 70 - 199 mg/dL [facility] Comment: Interpretive Data Fasting glucose >/= 126 [...] 2022. Calcium 9.8 8.5 - 10.3 mg/dL [facility] Bilirubin, total 1.0 0.1 - 1.2 mg/dL [facility] Protein, pl 7.7 6.5 - 8.5 g/dL [facility] Albumin 4.6 3.5 - 5.0 g/dL [facility] Alk phos 61 40 - 130 Units/L [facility] ALT 7 7 - 45 Units/L [facility] AST 19 10 - 45 Units/L [facility] Blood 11/08/2024 6:11 AM AUTO DAMAGE ESTIMATOR 11/08/2024 6:17 AM AUTO DAMAGE ESTIMATOR us Jaclyn Xavier MD LAB BLOOD ORDERABLES Fin al Result ARI [address] [facility] Department [place] [address] * ECG 12 lead (11/08/2024 6:10 AM AUTO DAMAGE ESTIMATOR) Pathologist [facility] Ventricular Rate EKG/Min 81 BPM [facility] Atrial Rate 81 BPM [facility] TX-Interval (MSEC) 144 ms [facility] QRS-Interval (MSEC) 76 ms [facility] QT-Interval (MSEC) 394 ms [facility] QTc 457 ms [facility] P Butler 36 degrees [facility] R Butler -2 degrees [facility] T Butler 24 degrees [facility] Diagnosis Normal sinus rhythm Moderate voltage criteria for LVH, may be normal variant Borderline ECG No previous ECGs available Confirmed by MELY MONTES DE OCA M.D. ([id number]) on 11/08/2024 12:16:01 PM [facility] 11/08/2024 6:10 AM AUTO DAMAGE ESTIMATOR 11/08/2024 12:16 PM AUTO DAMAGE ESTIMATOR Jaclyn Xavier MD ECG ORDERABLES Final Re sult Performing Organization Address [facility] de Phone Number [facility] * POCT hCG, urine (11/08/2024 6:10 AM AUTO DAMAGE ESTIMATOR) HCG, ur, POC Negative Negative Lot Number [id number] QC Backgroud Clear Acceptable QC Control Line Acceptable Urine 11/08/2024 6:10 AM AUTO DAMAGE ESTIMATOR Jaclyn Xavier MD POINT OF CARE TEST ORDER KELLEY Final Result * ECG 12 lead (11/03/2024 11:04 PM AUTO DAMAGE ESTIMATOR) 11/03/2024 11:0 4 PM AUTO DAMAGE ESTIMATOR Narrative [facility] - 11/04/2024 2:30 PM AUTO DAMAGE ESTIMATOR Vent Rate: 67 bpm RR Interval: 892 msec TX Interval: 142 msec QRS Duration: 89 msec QT Interval: 413 msec QTC Interval: 428 msec P-R-T Butler: 25 - 0 - 21 degrees IMPRESSION: SINUS RHYTHM MODERATE VOLTAGE CRITERIA FOR LVH, CONSIDER NORMAL VARIANT ??[MEETS CRITERIA IN ONE OF: R(aVL), S(V1), R(V5), R(V5/V6)+S(V1)] BORDERLINE ECG NO CHANGE FROM PREVIOUS TRACING NOTED Electronically Signed By: Nithin Vaca MD Job James MD ECG ORDERABLES Final Resul t Performing Organization Address [facility] Co de Phone Number [facility] * CT Head WO Contrast (11/03/2024 10:53 PM AUTO DAMAGE ESTIMATOR) Anatomical Region Laterality Modality Head and Neck N/A Computed Tomogra phy 11/03/2024 10:5 6 PM AUTO DAMAGE ESTIMATOR Narrative 11/03/2024 10:58 PM AUTO DAMAGE ESTIMATOR EXAM DESCRIPTION: CT HEAD WO CONTRAST REASON [...] PM T: ??11/03/2024 10:58 PM Report ID: [id number] Reading Location: ??[id number] Procedure Note Mike Kirk MD - 11/03/2024 [...] Mike Kirk M.D. AT: AT Report ID: [id number] Reading Location: [place] [address] us Job James MD IMG CT PROCEDURES Final Res ult * Troponin T high-sensitivity 2-hour (11/03/2024 10:46 PM AUTO DAMAGE ESTIMATOR) Trop T hs 7 <=14 ng/L Comment: Interpretive Data For further hscTnT resources including the diagnostic algorithm and an aid in interpretation, copy and paste this link: https://nrl.testcatalog.org/show/hsTrop Current Interpretive Data last revised 2020. Trop T hs delta See Comment ng/L CE RNASIA SHAH ([place]) Comment:Inappropriate collec tion time to report a delta. Trop T hs pct delta See Comment % ARI SHAH ([place]) Comment:Inappropriate collec tion time to report a delta. Trop T hs interp See Comment C ROSITA SHAH ([place]) Comment:Inappropriate collec tion time to report a delta. Blood 11/03/2024 10:4 6 PM AUTO DAMAGE ESTIMATOR 11/03/2024 10:50 PM AUTO DAMAGE ESTIMATOR us Job James MD LAB BLOOD ORDERABLES Final Result ARI SHAH ([place]) [address] [facility] [place] [address] * Pro B-type natriuretic peptide (11/03/2024 10:46 PM AUTO DAMAGE ESTIMATOR) NT-proBNP 51 <=300 pg/mL Comment: Interpretive Comments: [...] Date: 2018. Blood 11/03/2024 10:4 6 PM AUTO DAMAGE ESTIMATOR 11/03/2024 10:50 PM AUTO DAMAGE ESTIMATOR us Job James MD LAB BLOOD ORDERABLES Edited Result - Final [facility] [place] [address] [facility] [place] [address] * Thyroid Function [place] (11/03/2024 10:46 PM AUTO DAMAGE ESTIMATOR) Pathologist [facility] TSH 1.44 0.30 - 4.20 mcIUnit/mL Blood 11/03/2024 10:4 6 PM AUTO DAMAGE ESTIMATOR 11/03/2024 10:50 PM AUTO DAMAGE ESTIMATOR Job James MD LAB BLOOD ORDERABLES Final Result ARI SHAH ([place]) 1 [facility] [place] [address] * (ABNORMAL) Erythrocyte sedimentation rate (11/03/2024 10:46 PM AUTO DAMAGE ESTIMATOR) [facility] Erythrocyte sedimentation rate 29(H) 1 - 20 mm/hr Blood 11/03/2024 10:4 6 PM AUTO DAMAGE ESTIMATOR 11/03/2024 10:50 PM AUTO DAMAGE ESTIMATOR Job James MD LAB BLOOD ORDERABLES Final Result Performing Organization Address City/[facility] Co de Phone Number ARI SHAH ([place]) 1 [facility] [place] [address] * CRP (acute phase) (11/03/2024 10:46 PM AUTO DAMAGE ESTIMATOR) [facility] CRP <3.0 <=10.0 mg/L Blood 11/03/2024 10:4 6 PM AUTO DAMAGE ESTIMATOR 11/03/2024 10:50 PM AUTO DAMAGE ESTIMATOR Job James MD LAB BLOOD ORDERABLES Final Result Performing Organization Address City/[facility]/ZIP Co de Phone Number ARI SHAH ([place]) [address] [facility] [place] [address] * Magnesium (11/03/2024 10:46 PM AUTO DAMAGE ESTIMATOR) Pathologist [facility] Magnesium 1.8 1.4 - 2.5 mg/dL Blood 11/03/2024 10:4 6 PM AUTO DAMAGE ESTIMATOR 11/03/2024 10:50 PM AUTO DAMAGE ESTIMATOR Job James MD LAB BLOOD ORDERABLES Final Result Performing Organization Address [facility] Co de Phone Number ARI SHAH ([place]) 1 [facility] [place] [address] * Creatine kinase (CK), total (11/03/2024 10:46 PM AUTO DAMAGE ESTIMATOR) [facility] CK 69 30 - 200 Units/L Blood 11/03/2024 10:4 6 PM AUTO DAMAGE ESTIMATOR 11/03/2024 10:50 PM AUTO DAMAGE ESTIMATOR Job James MD LAB BLOOD ORDERABLES Final Result Performing Organization Address [facility] de Phone Number ARI SHAH ([place]) 1 [facility] [place] [address] * Troponin T high-sensitivity series (baseline, 2hr, 4hr, 6hr) (11/03/2024 7:40 PM AUTO DAMAGE ESTIMATOR) [facility] Trop T hs <6 <=14 ng/L Comment: Interpretive Data For further hscTnT resources including the diagnostic algorithm and an aid in interpretation, copy and paste this link: https://nrl.testcatalog.org/show/hsTrop Current Interpretive Data last revised 2020. Blood 11/03/2024 7:40 PM AUTO DAMAGE ESTIMATOR 11/03/2024 7:42 PM AUTO DAMAGE ESTIMATOR Job James MD LAB BLOOD ORDERABLES Final Result Performing Organization Address [facility] Co de Phone Number ARI SHAH ([place]) 1 [facility] [place] [address] * eGFR (11/03/2024 7:40 PM AUTO DAMAGE ESTIMATOR) [facility] eGFR >90 >=60 mL/min/1. 73 m2 [...] last reviewed 2021. Blood 11/03/2024 7:40 PM AUTO DAMAGE ESTIMATOR 11/03/2024 7:42 PM AUTO DAMAGE ESTIMATOR us Job James MD LAB BLOOD ORDERABLES Final Result ARI [facility] ([place]) [address] [facility] [place] [address] * Differential, auto (11/03/2024 7:40 PM AUTO DAMAGE ESTIMATOR) Neutrophil abs 4.3 1.5 - 6.5 K/cumm Imm gran abs 0.0 0.0 - 0.1 K/cumm [facility] ([place]) Lymphocyte abs 1.8 0.8 - 3.3 K/cumm [facility] ([place]) Monocyte abs 0.5 0.2 - 0.8 K/cumm [facility] ([place]) Eosinophil abs 0.1 0.0 - 0.5 K/cumm [facility] ([place]) Basophil abs 0.1 0.0 - 0.1 K/cumm [facility] ([place]) Neutrophil pct 63.7 % [facility] [...] revised on 2018. Blood 11/03/2024 7:40 PM AUTO DAMAGE ESTIMATOR 11/03/2024 7:42 PM AUTO DAMAGE ESTIMATOR us Job James MD LAB BLOOD ORDERABLES Final Result ARI SHAH ([place]) [address] [facility] Department of Laboratories [place], [place] [id number] * CBC with auto differential (11/03/2024 7:40 PM AUTO DAMAGE ESTIMATOR) WBC 6.8 3.8 - 9.9 K/cumm Hgb [...] ([place]) Blood (Blood, Venous) 11/03/2024 7:40 PM AUTO DAMAGE ESTIMATOR 11/03/2024 7:42 PM AUTO DAMAGE ESTIMATOR us Job James MD LAB BLOOD ORDERABLES Final Result [facility] ([place]) [address] [facility] [place] [address] * (ABNORMAL) Comprehensive metabolic panel (11/03/2024 7:40 PM AUTO DAMAGE ESTIMATOR) Sodium 139 135 - 145 mmol/L Potassium, [...] [facility] ([place]) Blood 11/03/2024 7:40 PM AUTO DAMAGE ESTIMATOR 11/03/2024 7:42 PM AUTO DAMAGE ESTIMATOR Job James MD LAB BLOOD ORDERABLES Final Result [facility] ([place]) [address] [facility] [place] [address] * XR Chest 1 Vw Portable (if patient condition/safety warrant portable) (11/03/2024 7:17 PM AUTO DAMAGE ESTIMATOR) Anatomical Region Laterality Modality Body, Chest N/A Computed Radiogr aphy 11/03/2024 7:23 PM AUTO DAMAGE ESTIMATOR Narrative 11/03/2024 7:24 PM AUTO DAMAGE ESTIMATOR EXAM DESCRIPTION: ?? XR CHEST 1 VIEW [...] PM T: ??11/03/2024 7:24 PM Report ID: [id number] Reading Location: ??[id number] Procedure Note Paco Reyes MD - 11/03/2024 [...] Paco Reyes M.D. RB: RB Report ID: [id number] Reading Location: [id number] us Job James MD IMG XR PROCEDURES Final Res ult * ECG 12 lead (11/03/2024 6:34 PM AUTO DAMAGE ESTIMATOR) 11/03/2024 6:34 PM AUTO DAMAGE ESTIMATOR Narrative [facility] - 11/04/2024 2:30 PM AUTO DAMAGE ESTIMATOR Vent Rate: 89 bpm RR Interval: 668 msec TX Interval: 116 msec QRS Duration: 88 msec QT Interval: 356 msec QTC Interval: 403 msec P-R-T Butler: 19 - 18 - 2 degrees IMPRESSION: SINUS RHYTHM WITH SHORT TX INTERVAL LOW QRS VOLTAGE IN PRECORDIAL LEADS ??[QRS DEFLECTION < 1.0 mV IN CHEST LEADS] POSSIBLE ANTERIOR MYOCARDIAL INFARCTION , OF INDETERMINATE AGE [30 ms Q WAVE IN V3/V4, OR R < 0.2 mV IN V4] ABNORMAL ECG Compared to prior EKG, heart rate has increased Electronically Signed By: Nithin Vaca MD us Job aJmes MD ECG ORDERABLES Final Resul t Performing Organization Address [facility] Co de Phone Number [facility] * Hepatitis A antibody, IgM Blood (11/02/2024 1:41 PM AUTO DAMAGE ESTIMATOR) Hep A IgM Nonreactive Nonreactive Comment: Interpretive Data: If Hep A IgM Ab is reported as Equivocal, a new sample should be drawn in two weeks for testing. Current interpretive data was last revised on 20. Blood 11/02/2024 1:41 PM AUTO DAMAGE ESTIMATOR 11/02/2024 8:17 PM AUTO DAMAGE ESTIMATOR us Trenton Lomeli MD LAB MICROBIOLOGY - GENERAL ORDERABLES Final Result Performing Organization Address [facility] Co de Phone Number ARI [address] [address] Department [place] [address] * Cryptosporidium and Giardia antigen assay Stool (11/02/2024 1:41 PM AUTO DAMAGE ESTIMATOR) Giardia Ag Negative Negative Comment:Testing performed by : [facility], [address] [facility], [place]., [address] Cryptosporidium Ag Negative Negative ARI CLAY Comment: Interpretive data: Testing performed by the [facility] using an immunoassay that detects Cryptosporidium and Giardia antigens in stool specimens. ??If comprehensive examination for ova and parasites is required, please request Ova and Parasite Examination . Testing performed by: [facility], [address] [place] [address] Stool 11/02/2024 1:41 PM AUTO DAMAGE ESTIMATOR 11/02/2024 10:22 PM AUTO DAMAGE ESTIMATOR Trenton Lomeli MD LAB MICROBIOLOGY - GENERAL ORDERABLES Final Result ARI [place] [address] [address] Department [place] [address] * CT Abdomen Pelvis W Contrast (10/28/2024 1:10 PM AUTO DAMAGE ESTIMATOR) Anatomical Region Laterality Modality Body N/A Computed Tomogra phy Historical Provider IMG CT PROCEDURES Final R esult * HM PAP SMEAR (03/19/2021) Historical Provider HEALTH MAINTENANCE Final Result from Last 3 Months or Most Recently Relevant to Health Maintenance [place] For more information, please contact: [phone] * Full Code (Latest Code Status on File) Date Activated Date Inactivated Comments 11/09/2024 2:20 PM 11/10/2024 6:22 PM Care Teams 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
--- OUTSIDE RECORDS SUMMARY | 2024-11-11 20:37 | XMS_ITS | Encounter Summary ---
Author Organization [facility] Healthcare Address [address] [place] [address] Care Team Providers Care Flat Machine Cutter Name Role Phone Trenton Lomeli MD Primary Care Provider [phone] Neelima Velazquez MD Unavailable [phone] Maura Wilson MD Unavailable [phone] Reason for Visit * Reason Comments Follow-up F/u [facility], pt went on 10/26/24, 10/28/24 and 11/01/24 Encounter Details Date Type Department Care Team (Late st Contact Info) Description 11/02/2024 1:15 PM MAIL FORWARDING SYSTEM MARKUP CLERK Office Visit [facility] Primary Care at [address] [address] Trenton Lomeli MD [address] [place] [address] [address] [place] [address] Diarrhea of presumed infectious origin (Primary Dx) Social History Tobacco Use Types [...] on file Legal Sex Female 4:15 AM MAIL FORWARDING SYSTEM MARKUP CLERK Gender Identity Not on file Sexual Orientation Not on file 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 Not on file Not on file Not on file documented as of this encounter Last Filed Vital Signs Vital Sign Reading Time Taken Comments Blood Pressure 110/80 11/02/2024 1:15 PM MAIL FORWARDING SYSTEM MARKUP CLERK Pulse 80 11/02/2024 1:15 PM MAIL FORWARDING SYSTEM MARKUP CLERK Temperature 36.9 ??C (98.4 ??F) 11/02/2024 1:15 PM CS T Respiratory Rate 16 11/02/2024 1:15 PM MAIL FORWARDING SYSTEM MARKUP CLERK Oxygen Saturation 96% 11/02/2024 1:15 PM MAIL FORWARDING SYSTEM MARKUP CLERK Inhaled Oxygen Concentration - - Weight 120.7 kg (266 lb) 11/02/2024 1:15 PM MAIL FORWARDING SYSTEM MARKUP CLERK Height 170.2 cm (5' 7 ) 11/02/2024 1:15 PM MAIL FORWARDING SYSTEM MARKUP CLERK Body Mass Index 41.66 11/02/2024 1:15 PM MAIL FORWARDING SYSTEM MARKUP CLERK documented in this encounter Patient Instructions * Patient Instructions* Trenton Lomeli MD - 11/02/2024 1:15 PM MAIL FORWARDING SYSTEM MARKUP CLERK Lomotil trial (take no more than 2ce per day, early on) Stool study labs as ordered Stay hydrated Thanks for coming in today! My medical assistants and I are thankful you have trusted us with your care, and hope that you received EXCELLENT care today! Please do not hesitate to call if you have any questions or concerns at [phone]. You may receive a phone call, text, MYCHART message, or e-mail asking about your care today. We would love to hear your feedback on how EXCELLENT your care wastoday! Wishing you better health, always. Dr. Lomeli FORWARDING SYSTEM MARKUP CLERK * Attachments The following attachments cannot be sent through Care Everywhere. * Nutrition Tips for Relief of Diarrhea (Sales Representative Uniforms) (Latvian) documented in this encounter Ordered Prescriptions Prescription Sig Dispense Quantity Refills Last Filled Start Date End Date ondansetron (Zofran) 4 mg tabletIndications: functional GI symptoms Take 1 tablet (4 mg total) by mouth every 8 (eight) hours as needed for nausea or vomiting 20 tablet 1 11/02/2024 dicyclomine (BENTYL) 10 mg capsuleIndications :Irritable Bowel Syndrome Take 1 capsule (10 mg total) by mouth 4 (four) times a day before meals and nightly 120 capsule 11/02/2024 6 diphenoxylate-atro pine (LOMOTIL) 2.5-0.025 mg per tabletIndications: diarrhea Take 1 tablet by mouth 2 (two) times a day as needed for diarrhea 30 tablet 11/02/2024 documented in this encounter Progress Notes * Trenton Lomeli MD - 11/02/2024 1:15 PM CST Images from the original note were not included. Subjective/Objective Patient ID: Alia Fabian is a 34 y.o. female. Chief Complaint Follow-up ([facility], pt went on 10/26/24, 10/28/24 and 11/01/24) Diarrhea This is a recurrent problem. The current episode started in the past 7 days. The problem occurs 2 to 4 times per day. The problem has been unchanged. The stool consistency is described as Watery. Associated symptoms include abdominal pain, bloating and chills. Pertinent negatives include no arthralgias, coughing, fever, headaches, increased flatus, myalgias, sweats, URI, vomiting or weight loss. The symptoms are aggravated by stress. Risk factors include suspect food intake and ill contacts. She has tried anti-motility drug and increased fluids (Imodium caused palpitations) for the symptoms. The treatment provided no relief. Current Outpatient Medications: dicyclomine (BENTYL) 10 mg capsule, , Disp: , Rfl: multivitamin capsule, Take 1 capsule by mouth daily, Disp: , Rfl: BIOTIN ORAL, Take by mouth (Patient not taking: Reported on 11/02/2024), Disp: , Rfl: cannabidiol, CBD, (EPIDIOLEX) 100 mg/mL solution, Take 5 mg/kg by mouth nightly as needed (Patient not taking: Reported on 11/02/2024), Disp: , Rfl: hydrOXYzine (ATARAX) 50 mg tablet, Take 1 tablet (50 mg total) by mouth every 6 (six) hours as needed (Patient not taking: Reported on 11/02/2024), Disp: , Rfl: Review of Systems Constitutional: Positive for chills. Negative for fever and weight loss. Respiratory: Negative for cough. Gastrointestinal: Positive for abdominal pain, bloating and diarrhea. Negative for flatus and vomiting. Musculoskeletal: Negative for arthralgias and myalgias. Neurological: Negative for headaches. BP 110/80 (BP Location: Left arm, Patient Position: Sitting) Pulse 80 Temp 36.9 ??C (98.4 ??F) (Temporal) Resp 16 Ht 170.2 cm (5' 7 ) Wt 120.7 kg (266 lb) LMP 10/27/2024 (Approximate) SpO2 96% BMI 41.66 kg/m?? Physical Exam Vitals reviewed. Constitutional: Appearance: She is morbidly obese. HENT: Head: Normocephalic and atraumatic. Abdominal: General: Abdomen is protuberant. Bowel sounds are normal. There is no distension or abdominal bruit. There are no signs of injury. Palpations: Abdomen is soft. There is no mass or pulsatile mass. Tenderness: There is no abdominal tenderness. There is no guarding or rebound. Neurological: Mental Status: She is alert. No visits with results within 1 Month(s) from this visit. Latest known visit with results is: Hospital Outpatient Visit on 05/12/2023 Component Date Value Ref Range Status LV EF 05/12/2023 69 % Final Assessment/Plan Diagnoses and all orders for this visit: Diarrhea of presumed infectious origin (Primary) Comments: norovirus unlikely due to duration infectious cause still considered; reviewed labs from [place] 11/01 Lomotil trial Stool study labs as ordered Orders: - diphenoxylate-atropine (LOMOTIL) 2.5-0.025 mg per tablet; Take 1 tablet by mouth 2 (two) times a day as needed for diarrhea - Cryptosporidium and Giardia antigen assay Stool; Future - Hepatitis A antibody, IgM Blood; Future Other orders - dicyclomine (BENTYL) 10 mg capsule; Take 1 capsule (10 mg total) by mouth 4 (four) times a day before meals and nightly - ondansetron (Zofran) 4 mg tablet; Take 1 tablet (4 mg total) by mouth every 8 (eight) hours as needed for nausea or vomiting Trenton Lomeli MD This office note has been partially dictated using [employer] software, and as a result portions of the record may have been created with this software. Occasional wrong-word or '[id number]' substitutions may have occurred due to the inherent limitations of voice recognition software. Read the chartcarefully and recognize, using context, where substitutions have occurred. FORWARDING SYSTEM MARKUP CLERK documented in this encounter Miscellaneous Notes * Addendum Note - Rani Reyes - 11/02/2024 1:15 PM CSTAddended by: RANI REYES on: 11/02/2024 01:54 PM Modules accepted: Orders FORWARDING SYSTEM MARKUP CLERK * Addendum Note - Rani Reyes - 11/02/2024 1:15 PM CSTAddended by: RANI REYES on: 11/02/2024 01:54 PM Modules accepted: Orders FORWARDING SYSTEM MARKUP CLERK * Addendum Note - Kristie Menon - 11/02/2024 1:15 PM CSTAddended by: KRISTIE MENON on: 11/02/2024 03:01 PM Modules accepted: Orders FORWARDING SYSTEM MARKUP CLERK documented in this encounter Plan of Treatment Not on file documented as of this encounter Results * Cryptosporidium and Giardia antigen assay Stool (11/02/2024 1:41 PM MAIL FORWARDING SYSTEM MARKUP CLERK) Giardia Ag Negative Negative Comment:Testing performed by : [facility], [address] [place]., [address] Cryptosporidium Ag Negative Negative ARI CLAY Comment: Interpretive data: Testing performed by the [facility] using an immunoassay that detects Cryptosporidium and Giardia antigens in stool specimens. ??If comprehensive examination for ova and parasites is required, please request Ova and Parasite Examination . Testing performed by: [facility], [address] [place]., [address] Stool 11/02/2024 1:41 PM MAIL FORWARDING SYSTEM MARKUP CLERK 11/02/2024 10:22 PM MAIL FORWARDING SYSTEM MARKUP CLERK Trenton Lomeli MD LAB MICROBIOLOGY - GENERAL ORDERABLES Final Result Performing Organization Address [facility] de Phone Number [facility] [address] [address] Department [employer] [place] [address] * Hepatitis A antibody, IgM Blood (11/02/2024 1:41 PM MAIL FORWARDING SYSTEM MARKUP CLERK) Hep A IgM Nonreactive Nonreactive Comment: Interpretive Data: If Hep A IgM Ab is reported as Equivocal, a new sample should be drawn in two weeks for testing. Current interpretive data was last revised on 20. Blood 11/02/2024 1:41 PM MAIL FORWARDING SYSTEM MARKUP CLERK 11/02/2024 8:17 PM MAIL FORWARDING SYSTEM MARKUP CLERK Trenton Lomeli MD LAB MICROBIOLOGY - GENERAL ORDERABLES Final Result Performing Organization Address [facility] Co de Phone Number [facility] [address] [address] Department [employer] [place] [address] documented in this encounter Visit Diagnoses Diagnosis Diarrhea of presumed infectious origin- Primary documented in this encounter Discontinued Medications Medication Sig Discontinue Reason Start Date End Da te dicyclomine (BENTYL) 10 mg capsule 11/01/2024 11/02/2024 documented as of this encounter Historical Medications * This list may reflect changes made after this encounter. Medication Sig Dispense Quantity Refills Last Filled Start D ate End Date dicyclomine (BENTYL) 10 mg capsule 11/01/2024 11/02/2024 added in this encounter Care Teams Flat Machine Cutter Relationship Specialty Start Date End Date Trenton Lomeli MD PCP - General Family Medicine 10/06/21 Neelima Velazquez MD [address] [address] Consulting Physician Gynecology 10/06/21 Maura Wilson MD [address] [facility] [address] [place] [address] Consulting Physician Cardiology 06/16/23 documented as of this encounter
--- OUTSIDE RECORDS SUMMARY | 2024-11-11 20:37 | XMS_ITS | Clinical Summary ---
Author Organization [facility] Address [address] [place] [address] Care Team Providers Care Webmethods Consultant Name Role Phone Trenton Lomeli MD Primary Care Provider [phone] Neelima Velazquez MD Unavailable [phone] Maura Wilson MD Unavailable [phone] Allergies Active Allergy Reactions Criticality Noted [...] up to 20 days 20 capsule 11/03/19 25 025 Discontinued(St op Taking at Discharge) Active Problems Problem Noted Date Diagnosed Date Somatization disorder 11/10/2024 Borderline personality disorder 11/09/2024 GERD (gastroesophageal reflux disease) Assessment & Plan (11/09/2024 3:48 PM [facility]): She has been on PPI and sucralfate at home, continued Lactose intolerance 11/06/2024 Gluten intolerance 11/06/2024 Hypercholesterolemia 06/16/2023 Morbid (severe) obesity due to excess calories 0 11/09/2022 Assessment & Plan (11/09/2022 4:02 PM [facility] [employer] [facility]): BMI Follow-up includes: nutrition counseling, exercise counseling and education provided. Body mass index (BMI) 45.0-49.9, adult 3 Well adult exam 10/08/2021 Assessment & Plan (11/10/2022 2:28 PM [facility] [employer] [facility]): A(n) yearly well adult visit has been [...] prn Assessment & Plan (10/08/2021 2:57 PM [facility] [employer] [facility]): A initial well visit to establish care [...] 7 Assessment & Plan (11/09/2024 3:45 PM [facility] [employer] [facility]): Complains of intermittent diarrhea associated abdominal cramping Exam unremarkable, euvolemic Continued home mental, Lomotil Advised to keep food diary and notes symptoms especially with gluten and lactose Assessment & Plan (11/06/2024 11:14 AM [facility] [employer] [facility]): IBS vs infectious (prolonged effect of viral gastoenteritis? 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 Resuming probiotic advised bland diet today, stay hydrated; avoid sugary foods (rice may be okay) we will try to review jose Jo from her portal, the CT was unremarkable [...] pain Assessment & Plan (11/09/2024 3:49 PM [facility] [employer] [facility]): Recurrent chest pain, radiating to head, without [...] Department Care Team Description 11/09/2024 12:41 PM [facility] - 11/10/2024 2:10 PM [facility] Hospital Encounter [facility] [address] [place] [address] Priscila Monaco MD Trillo Alvarez, Ludwig, MD Borderline personality disorder (CMS/HCC) (HCC) (Primary Dx); Somatization disorder; Gastroesophageal reflux disease, unspecified whether esophagitis present; Irritable bowel syndrome with diarrhea; Non-cardiac chest pain Discharge Disposition: Discharge to home or self care 11/08/2024 5:57 AM [facility] - 11/09/2024 11:57 AM [facility] Emergency [address] [address] Chest pain, unspecified type (Primary Dx); Irritable bowel syndrome with diarrhea; Suicidal ideation; Anxiety Discharge Disposition: Discharge to psych hospital or psych unit 11/06/2024 10:30 AM [facility] Telemedicine [facility] Primary Care at [address] [phone] Trenton Lomeli MD Irritable bowel syndrome with diarrhea (Primary Dx) 11/06/2024 Telephone [facility] Primary Care at [address] [phone] Trenton Lomeli MD Medical Question/Miscellaneous 11/03/2024 10:04 PM [facility] - 11/04/2024 12:14 AM [facility] Emergency [facility] Emergency Department [address] [place] [phone] Job James MD Sleep disturbance (Primary Dx); Chronic abdominal pain Discharge Disposition: Discharge to home or self care 11/03/2024 Orders Only [facility] Primary [facility] at [address] [phone] Trenton Lomeli MD 11/03/2024 Nurse Triage [facility] Primary [facility] at [address] [phone] Trenton Lomeli MD 11/03/2024 Nurse Triage [facility] Primary Care at [address] [phone] Angela Kumar RN 11/02/2024 3:00 PM [facility] Lab [facility] Outpatient Lab at [address] [phone] 11/02/2024 1:45 PM [facility] Lab [facility] Outpatient Lab at [address] [phone] Hypercholesterolemia (Primary Dx) 11/02/2024 1:41 PM [facility] - 11/02/2024 11:59 PM [facility] Hospital Encounter [address] [address] Diarrhea of presumed infectious origin Discharge Disposition: Discharge to home or self care 11/02/2024 1:15 PM [facility] Office Visit [facility] Care at [address] [phone] Trenton Lomeli MD Diarrhea of presumed infectious origin (Primary Dx) 10/30/2024 Nurse Triage [facility] Primary Care at [address] [phone] Trenton Lomeli MD 10/30/2024 Orders Only [facility] Primary Care at [address] [phone] Provider, MD Misael from Last 3 Months Immunizations Name Administration Dates Next Due Influenza, Unspecified 11/02/2024(Deferr ed: Patient Refused),06/16/2023(Deferred: Patient Refused),06/01/2023(Deferred: Patient Refused),11/01/2022(Deferred: Patient Refused),11/01/2022(Deferred: Patient Refused),08/10/2022(Deferred: Patient Refused),10/06/2021(Deferred: Patient Refused),09/15/2020(Deferred: Patient Refused) Surgical History Surgery Date Site/Laterality Comments WISDOM TOOTH EXTRACTION Oral Surgery Tooth Extraction Metz Tooth - (Added by TW Conv) Medical [...] drink = 0.6 oz pur e alcohol) [facility] Utilities Answer Date Recorded In the past 12 months has e electric, gas, oil, or water company threatened to shut off services in your [...] often do you attend chur ch or hoahaoism services? Never 11/10/2024 Do you belong to any clubs o r organizations such as baptist groups, unions, fraternal or athletic groups, or [...] staff should administer the PHQ-9) 0 11/02/2024 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 file Not on file Not on file Obstetrics History Last Filed Vital Signs Vital Sign Reading Time Taken Comments Blood Pressure 128/80 11/10/2024 9:11 AM [facility] Pulse 95 11/10/2024 9:11 AM [facility] Temperature 36.9 ??C (98.4 ??F) 11/10/2024 9:11 AM CS T Respiratory Rate 18 11/10/2024 9:11 AM [facility] Oxygen Saturation 96% 11/10/2024 9:11 AM [facility] Inhaled Oxygen Concentration - - Weight 115.5 kg (254 lb 9.6 oz) 11/09/2024 1:30 PM [facility] Height 170.2 cm (5' 7.01 ) 11/09/2024 1:30 PM CS T Body Mass Index 39.87 11/09/2024 1:30 PM [facility] Plan of Treatment Health Maintenance Due Date [...] GLUCOSE DEVICE Routine 11/09/2024 1 :58 AM [facility] TROPONIN T HIGH-SENSITIVITY 2-HOUR Timed 11/08/2024 8:01 AM [facility] XR CHEST 1 VIEW ED 11/08/2024 6:18 AM [facility] EGFR STAT 11/08/2024 6:11 AM [facility] DIFFERENTIAL AUTO STAT 11/08/2024 6:1 1 AM [facility] DRUGS OF ABUSE SCREEN, URINE WITHOUT CONFIRMATION STAT 11/08/2024 6:11 AM [facility] ETHANOL STAT 11/08/2024 6:11 AM [facility] TROPONIN T HIGH-SENSITIVITY SERIES (BASELINE, 2HR, 4HR, 6HR) STAT 11/08/2024 6:11 AM [facility] COMPREHENSIVE METABOLIC PANEL STAT 11/08/2024 6:11 AM [facility] CBC WITH AUTO DIFFERENTIAL STAT 11/08/2024 6:11 AM [facility] INFLUENZA A/B, RSV, AND COVID-19 PCR Routine 11/08/2024 6:11 AM [facility] URINALYSIS AND REFLEX TO MICROSCOPIC AND CULTURE STAT 11/08/2024 6:11 AM [facility] ECG 12-LEAD STAT 11/08/2024 6:10 AM [facility] POCT HCG, URINE Routine 11/08/2024 6:10 AM [facility] ECG 12-LEAD Routine 11/03/2024 11:[address] [facility] [address] [address] HEAD WO CONTRAST ED 11/03/2024 1 0:53 PM [facility] MAGNESIUM Routine 11/03/2024 10:46 PM [facility] THYROID FUNCTION CASCADE Add-On 11/03/2024 10:46 PM [facility] ERYTHROCYTE SEDIMENTATION RATE STAT 11/03/2024 10:46 PM [facility] CREATINE KINASE (CK), TOTAL STAT 11/03/2024 10:46 PM [facility] PRO B-TYPE NATRIURETIC PEPTIDE STAT 11/03/2024 10:46 PM [facility] CRP (ACUTE PHASE) STAT 11/03/2024 10: 46 PM [facility] TROPONIN T HIGH-SENSITIVITY 2-HOUR Timed 11/03/2024 10:46 PM [facility] EGFR STAT 11/03/2024 7:40 PM [facility] DIFFERENTIAL AUTO STAT 11/03/2024 7: 40 PM [facility] TROPONIN T HIGH-SENSITIVITY SERIES (BASELINE, 2HR, 4HR, 6HR) STAT 11/03/2024 7:40 PM [facility] COMPREHENSIVE METABOLIC PANEL STAT 11/03/2024 7:40 PM [facility] CBC WITH AUTO DIFFERENTIAL STAT 11/03/2024 7:40 PM [facility] XR CHEST 1 VIEW ED 11/03/2024 7:17 PM [facility] ECG 12-LEAD STAT 11/03/2024 6:34 PM [facility] CRYPTOSPORIDIUM AND GIARDIA ANTIGEN ASSAY Routine 11/02/2024 1:41 PM [facility] Diarrhea of presumed infectious origin HEPATITIS A ANTIBODY, IGM Routine 11/02/2024 1:41 PM [facility] Diarrhea of presumed infectious origin CT ABDOMEN PELVIS W CONTRAST Schedule Routine, Read Routine (OP Routine) 10/28/2024 1:10 PM [facility] HM PAP SMEAR Routine 03/19/2021 from Last 3 Months or Most Recently Relevant to Health Maintenance Results * POCT glucose (11/09/2024 1:58 AM [facility]) Glucose, POC 99 70 - 199 mg/dL Blood 11/09/2024 1:58 AM [facility] 11/09/2024 1:58 AM [facility] Notinfile Unknown LAB POCT ORDERABLES - DEVICE F inal Result Performing Organization Address [facility] Co de Phone Number [address] [address] * Troponin T high-sensitivity 2-hour (11/08/2024 8:01 AM [facility]) Trop T hs <6 <=14 ng/L Comment: Interpretive Data For further hscTnT resources including the diagnostic algorithm and an aid in interpretation, copy and paste this link: https://nrl.testcatalog.org/show/hsTrop Current Interpretive Data last revised 2020. Trop T hs delta 0 ng/L [facility] Trop T hs interp Insignificant [facility] Blood 11/08/2024 8:01 AM [facility] 11/08/2024 8:10 AM [facility] Jaclyn Xavier MD LAB BLOOD ORDERABLES Fin al Result Performing Organization Address [facility] Co de Phone Number [address] [address] * XR Chest 1 Vw Portable (if patient condition/safety warrant portable) (11/08/2024 6:18 AM [facility]) Anatomical Region Laterality Modality Body, Chest N/A Computed Radiogr aphy 11/08/2024 6:27 AM [facility] Narrative 11/08/2024 6:29 AM [facility] EXAM DESCRIPTION: ?? XR CHEST 1 VIEW REASON FOR STUDY: ?? chest pain ?? BIBEMS from home having chest discomfort for a week, non radiating, pressure like pain and SI without any plan. Was seen 3 days ago at [facility] and cardiac work up done. [...] D: ??11/08/2024 6:29 AM T: Report ID: [id number] Reading Location: ??[id number] Procedure Note Gillian Stokes MD - 11/08/2024 EXAM DESCRIPTION: XR CHEST 1 VIEW REASON FOR STUDY: chest pain BIBEMS from home having chest discomfort for a week, non radiating,pressure like pain and SI without any plan. Was seen 3 days ago at [facility] and cardiac work up done. [...] Gillian Stokes M.D. SN T: Report ID: [id number] Reading Location: [id number] us Jaclyn Xavier MD IMG XR PROCEDURES Final Result * Troponin T high-sensitivity series (baseline, 2hr, 4hr, 6hr) (11/08/2024 6:11 AM [facility]) Pathologist [facility] Trop T hs <6 <=14 ng/L Comment: Interpretive Data For further hscTnT resources including the diagnostic algorithm and an aid in interpretation, copy and paste this link: https://nrl.testcatalog.org/show/hsTrop Current Interpretive Data last revised 2020. Blood 11/08/2024 6:11 AM [facility] 11/08/2024 6:17 AM [facility] Jaclyn Xavier MD LAB BLOOD ORDERABLES Fin al Result [facility] [address] [facility] [place] [address] * Influenza A/B, RSV, and COVID-19 PCR Nasopharyngeal (11/08/2024 6:11 AM [facility]) [facility] COVID-19 RNA Negative Negative Influenza A RNA Negative Negative [facility] Influenza B RNA Negative Negative [facility] RSV RNA Negative Negative [facility] Comment: Interpretive data: Testing performed by [facility]. This test is performed using the [address] Xpert Xpress CoV-2/Flu/RSV plus assay. This is a multiplex, real-time reverse transcriptase PCR assay intended for the qualitative detection of nucleic acid from SARS-CoV-2, influenza A, influenza B, and respiratory syncytial virus. This assay has been cleared by the [place] Food and Drug administration. The performance characteristics have been verified by the [facility]. ??Results must be considered in the clinical context, and a negative result does not rule out infection. Interpretive Data last revised 2023 Nasopharyngeal 11/08/2024 6: 11 AM [facility] 11/08/2024 6:14 AM [facility] Narrative [facility] - 11/08/2024 6:54 AM [facility] Is the Patient experiencing symptoms consistent with COVID?->No Jaclyn Xavier MD LAB MICROBIOLOGY - GENER AL ORDERABLES Final Result [facility] [place] [address] * eGFR (11/08/2024 6:11 AM [facility] [employer] [facility]) Pathologist [facility] eGFR >90 >=60 mL/min/1. 73 m2 Comment: [...] of Race in Diagnosing Kidney Disease, JASN 202). The CKD-EPI equation should not be used for patients with unstable renal function and has not been validated in children and those over 70. Current interpretive data was last reviewed 2021. Blood 11/08/2024 6:11 AM [facility] 11/08/2024 6:17 AM [facility] Jaclyn Xavier MD LAB BLOOD ORDERABLES Fin al Result [facility] [address] [facility] [place] [address] * Differential, auto (11/08/2024 6:11 AM [facility]) Neutrophil abs 4.6 1.5 - 6.5 K/cumm Imm gran abs 0.0 0.0 - 0.1 K/cumm [facility] Lymphocyte abs 2.5 0.8 - 3.3 K/cumm [facility] Monocyte abs 0.7 0.2 - 0.8 K/cumm [facility] Eosinophil abs 0.2 0.0 - 0.5 K/cumm [facility] Basophil abs 0.1 0.0 - 0.1 K/cumm [facility] Neutrophil pct 57.1 % [facility] Comment: Interpretive Data Percent cell count reference ranges are not reported, since discordance with absolute values may lead to misinterpretation of CBC data. Current Interpretive Data was last revised on 2018. Imm gran pct 0.3 % [facility] Comment: Interpretive Data Percent cell count reference ranges are not reported, since discordance with absolute values may lead to misinterpretation of CBC data. Current Interpretive Data was last revised on 2018. Lymphocyte pct 31.0 % [facility] Comment: Interpretive Data Percent cell count reference ranges are not reported, since discordance with absolute values may lead to misinterpretation of CBC data. Current Interpretive Data was last revised on 2018. Monocyte pct 8.5 % [facility] Comment: Interpretive Data Percent cell count reference ranges are not reported, since discordance with absolute values may lead to misinterpretation of CBC data. Current Interpretive Data was last revised on 2018. Eosinophil pct 2.3 % [facility] Comment: Interpretive Data Percent cell count reference ranges are not reported, since discordance with absolute values may lead to misinterpretation of CBC data. Current Interpretive Data was last revised on 2018. Basophil pct 0.8 % [facility] Comment: Interpretive Data Percent cell count reference ranges are not reported, since discordance with absolute values may lead to misinterpretation of CBC data. Current Interpretive Data was last revised on 2018. Blood 11/08/2024 6:11 AM [facility] 11/08/2024 6:15 AM [facility] us Jaclyn Xavier MD LAB BLOOD ORDERABLES Fin al Result [facility] [address] [facility] [place] [address] * Urinalysis reflex to microscopic and culture Urine (11/08/2024 6:11 AM [facility] [employer] [facility]) Color, ur Straw Yellow Clarity, ur Clear Clear [facility] Specific gravity, ur 1.003 1.003 - 1.030 [facility] pH, urine 6.5 [facility] Comment: Interpretive Data ? Urine pH is affected by diet, medications, systemic acid-base disturbances, and renal tubular function. ??pH may affect urinary stone formation. ??For example, urine pH below 6.0 may help reduce the tendency for calcium phosphate stones and pH greater than 6.0 may reduce the tendency for uric acid stone formation. Source: [facility] Current Interpretive Data was last revised on 2017 Protein, ur ql Negative Negative [facility] Glucose, ur ql Negative Negative [facility] Ketones, ur Negative Negative [facility] Bilirubin, ur Negative Negative [facility] Blood, ur Negative Negative [facility] Urobilinogen, ur <2.0 <2.0 mg/dL [facility] Nitrite, ur Negative Negative [facility] Leukocyte esterase, ur Negative Negative [facility] UA reflex comment Reflex conditions for microscopic UA and culture not met. [facility] Urine 11/08/2024 6:11 AM [facility] 11/08/2024 6:15 AM [facility] [employer] [facility] us Jaclyn Xavier MD LAB MICROBIOLOGY - [facility] AL ORDERABLES Final Result Performing Organization Address [facility] Co de Phone Number [facility] [address] [place] [address] * CBC with auto differential (11/08/2024 6:11 AM [facility] [employer] [facility]) Pathologist [facility] WBC 8.0 3.8 - 9.9 K/cumm Hgb 14.1 11.9 - 15.5 g/dL [facility] Hct 43.4 35.6 - 45.5 % [facility] Plt 314 150 - 400 K/cumm [facility] MPV 9.2 9.1 - 12.3 fL [facility] RBC 4.92 3.90 - 5.20 M/cumm [facility] MCV 88.2 81.3 - 96.4 fL [facility] MCH 28.7 27.1 - 33.3 pg [facility] MCHC 32.5 32.3 - 35.7 g/dL [facility] RDW CV 12.6 11.1 - 14.9 % [facility] RDW SD 40.3 35.7 - 48.1 fL [facility] NRBC abs 0.00 0.00 - 0.01 K/cumm [facility] Blood (Blood, Venous) 11/08/2024 6:11 AM [facility] 11/08/2024 6:15 AM [facility] Jaclyn Xavier MD LAB BLOOD ORDERABLES Fin al Result [facility] [address] [facility] Department [place] [address] * Drugs of Abuse Screen, Urine without Confirmation (11/08/2024 6:11 AM [facility] [employer] [facility]) Pathologist [facility] Amphetamine, ur Not Detected CutOff 500ng/mL Comment: Interpretive Data - Amphetamines: ??Samples containing greater than 500 ng/mL d-methamphetamine ??or other cross-reacting amphetamine compounds are reported as positive. ??Amphetamine immunoassays are subject to significant false positive rates due to cross-reactivity of non-amphetamine drugs. Confirmatory testing required for definitive results. Current Interpretive Data was last reviewed 2023. Barbiturates, ur Not Detected CutOff 200ng/mL [facility] Comment: Interpretive Data - Barbiturates: ??Samples containing greater than 200 ng/mL secobarbital or other cross-reacting barbiturate compounds are reported as positive. ??False positive and false negative results are possible. Confirmatory testing required for definitive results. Current Interpretive Data was last reviewed 2023. Benzodiazepines, ur Not Detected CutOff 100ng/mL [facility] Comment: Interpretive Data - Benzodiazepines: ??Samples containing greater than 100 ng/mL nordiazepam or other cross-reacting compounds are reported as positive. False positive and false negative results are possible. Confirmatory testing required for definitive results. Current Interpretive Data was last reviewed 2023. Cannabinoids, ur Not Detected CutOff 50 ng/mL [facility] Comment: Interpretive Data - Cannabinoids: ??Samples containing greater than 50 ng/mL delta-9 THC -COOH or other cross-reacting compounds are reported as positive. ??False positive and false negative results are possible. ??Confirmatory testing required for definitive results. Current Interpretive Data was last reviewed 2023. Cocaine, ur Not Detected CutOff 150ng/mL [facility] Comment: Interpretive Data - Cocaine: ??Samples containing greater than 150 ng/mL benzoylecgonine or other cross-reacting compounds are reported as positive. False positive and false negative results are possible. Confirmatory testing required for definitive results. Current Interpretive Data was last reviewed 2023. Fentanyl, Ur Not Detected CutOff 5 ng/mL [facility] Comment: Interpretive Data - Fentanyl: ?? Samples containing greater than 5 ng/mL norfentanyl, fentanyl, or other cross-reacting fentanyl compounds are reported as positive. False positive and false negative results are possible. Confirmatory testing required for definitive results. Current Interpretive Data was last reviewed 2024. Methadone, ur Not Detected CutOff 300ng/mL [facility] Comment: Interpretive Data - Methadone: ??Samples containing greater than 300 ng/mL d,l-methadone or other cross-reacting compounds are reported as positive. ??False positive and false negative results are possible. Confirmatory testing required for definitive results. Current Interpretive Data was last reviewed 2023. Opiates, ur Not Detected CutOff 300ng/mL [facility] Comment: Interpretive Data - Opiates: ??Samples containing greater than 300 ng/mL morphine or other cross-reacting compounds are reported as positive. ??False positive and false negative results are possible. Confirmatory testing required for definitive results. Current Interpretive Data was last reviewed 2023. Oxycodone, ur Not Detected CutOff 100ng/mL [facility] Comment: Interpretive Data - Oxycodone: ??Samples containing greater than 100 ng/mL oxycodone or other cross-reacting compounds are reported as ??positive. ??False positive and false negative results are possible. Confirmatory testing required for definitive results. Current Interpretive Data was last reviewed 2023. Phencyclidine, ur Not Detected CutOff 25 ng/mL [facility] Comment: Interpretive Data - Phencyclidine: ??Samples containing [...] revised on 2018. Urine 11/08/2024 6:11 AM [facility] 11/08/2024 6:15 AM [facility] Narrative [facility] - 11/08/2024 6:47 AM [facility] Drug of Abuse screening is performed by immunoassay for medical purposes only. ??This is not to be used for Pain Management purposes. Jaclyn Xavier MD LAB URINE ORDERABLES Fin al Result Performing Organization Address [facility] de Phone Number [place] [id number] [facility] [place] [address] * Ethanol (11/08/2024 6:11 AM [facility] [employer] [facility]) Ethanol <10 <=10 mg/dL Comment: Interpretive Data Legal limit of intoxication > or = 80 mg/dL Levels > or = 400 mg/dL are potentially TOXIC. Current interpretive data was last revised on 2018. Blood 11/08/2024 6:11 AM [facility] 11/08/2024 6:17 AM [facility] Jaclyn Xavier MD LAB BLOOD ORDERABLES Fin al Result Performing Organization Address [facility] de Phone Number [address] [address] * Comprehensive metabolic panel (11/08/2024 6:11 AM [facility]) Sodium 140 135 - 145 mmol/L Potassium, pl 3.6 3.3 - 4.9 mmol/L [facility] Chloride 103 97 - 110 mmol/L [facility] CO2 26 22 - 32 mmol/L [facility] Anion gap 11 2 - 15 mmol/L [facility] BUN 8 6 - 25 mg/dL [facility] Creatinine 0.63 0.60 - 1.10 mg/dL [facility] Glucose 113 70 - 199 mg/dL [facility] Comment: Interpretive Data Fasting glucose >/= [...] Calcium 9.8 8.5 - 10.3 mg/dL [facility] Bilirubin, total 1.0 0.1 - 1.2 mg/dL [facility] Protein, pl 7.7 6.5 - 8.5 g/dL [facility] Albumin 4.6 3.5 - 5.0 g/dL [facility] Alk phos 61 40 - 130 Units/L [facility] ALT 7 7 - 45 Units/L [facility] AST 19 10 - 45 Units/L [facility] Blood 11/08/2024 6:11 AM [employer] [employer] 11/08/2024 6:17 AM [employer] Jaclyn Xavier MD LAB BLOOD ORDERABLES Fin al Result [facility] [address] [facility] [place] [address] * ECG 12 lead (11/08/2024 6:10 AM [employer]) Ventricular Rate EKG/Min 81 BPM [facility] Atrial Rate 81 BPM [facility] MS-Interval (MSEC) 144 ms [facility] QRS-Interval (MSEC) 76 ms [facility] QT-Interval (MSEC) 394 ms [facility] QTc 457 ms [facility] P Fonda 36 degrees [facility] R Fonda -2 degrees [facility] T Fonda 24 degrees [facility] Diagnosis Normal sinus rhythm Moderate voltage criteria for LVH, may be normal variant Borderline ECG No previous ECGs available Confirmed by MELY MONTES DE OCA M.D. ([id number]) on 11/08/2024 12:16:01 PM [facility] 11/08/2024 6:10 AM [employer] 11/08/2024 12:16 PM [employer] Jaclyn Xavier MD ECG ORDERABLES Final Re sult Performing Organization Address [facility] Co de Phone Number [facility] * POCT hCG, urine (11/08/2024 6:10 AM [employer]) HCG, ur, POC Negative Negative Lot Number [id number] QC Backgroud Clear Acceptable QC Control Line Acceptable Urine 11/08/2024 6:10 AM [employer] Jaclyn Xavier MD POINT OF CARE TEST ORDER KELLEY Final Result * ECG 12 lead (11/03/2024 11:04 PM [employer]) 11/03/2024 11:0 4 PM [employer] Narrative [facility] - 11/04/2024 2:30 PM [employer] Vent Rate: 67 bpm RR Interval: 892 msec MS Interval: 142 msec QRS Duration: 89 msec QT Interval: 413 msec QTC Interval: 428 msec P-R-T Fonda: 25 - 0 - 21 degrees IMPRESSION: SINUS RHYTHM MODERATE VOLTAGE CRITERIA FOR LVH, CONSIDER NORMAL VARIANT ??[MEETS CRITERIA IN ONE OF: R(aVL), S(V1), R(V5), R(V5/V6)+S(V1)] BORDERLINE ECG NO CHANGE FROM PREVIOUS TRACING NOTED Electronically Signed By: Nithin Vaca MD Job James MD ECG ORDERABLES Final Resul t Performing Organization Address [facility]/ZIP Co de Phone Number [facility] * CT Head WO Contrast (11/03/2024 10:53 PM [facility] [employer]) Anatomical Region Laterality Modality Head and Neck N/A Computed Tomogra phy 11/03/2024 10:5 6 PM [employer] Narrative 11/03/2024 10:58 PM [facility] EXAM DESCRIPTION: CT HEAD WO CONTRAST REASON [...] PM T: ??11/03/2024 10:58 PM Report ID: [id number] Reading Location: ??[id number] Procedure Note Mike Kirk MD - 11/03/2024 [...] Mike Kirk M.D. AT: AT Report ID: [id number] Reading Location: [id number] us Job James MD IMG CT PROCEDURES Final Res ult * Troponin T high-sensitivity 2-hour (11/03/2024 10:46 PM [employer]) Trop T hs 7 <=14 ng/L Comment: Interpretive Data For further hscTnT resources including the diagnostic algorithm and an aid in interpretation, copy and paste this link: https://nrl.testcatalog.org/show/hsTrop Current Interpretive Data last revised 2020. Trop T hs delta See Comment ng/L CE MAIRA SHAH ([place]) Comment:Inappropriate collec tion time to report a delta. Trop T hs pct delta See Comment % ARI SAHH ([place]) Comment:Inappropriate collec tion time to report a delta. Trop T hs interp See Comment C ROSITA SHAH (JD) Comment:Inappropriate collec tion time to report a delta. Blood 11/03/2024 10:4 6 PM [facility] [employer] 11/03/2024 10:50 PM [employer] Job James MD LAB BLOOD ORDERABLES Final Result ARI SHAH ([place]) [address] [facility] Department [place] [address] * Pro B-type natriuretic peptide (11/03/2024 10:46 PM [facility] [employer]) NT-proBNP 51 <=300 pg/mL Comment: Interpretive Comments: [...] et.al. Eur Heart J. 2006:27:330-337. 2. Liu MOTLEY, Magui WILKINS. J. AM Sully Cardiol: Cardiovasc Imag. 2009;2: 216- 225. Interpretive Data Last Revised Date: 2018. Blood 11/03/2024 10:4 6 PM [employer] [employer] 11/03/2024 10:50 PM [employer] Job James MD LAB BLOOD ORDERABLES Edited Result - Final ARI SHAH ([place]) 1 [facility] [place] [address] * Thyroid Function [place] (11/03/2024 10:46 PM [employer]) TSH 1.44 0.30 - 4.20 mcIUnit/mL Blood 11/03/2024 10:4 6 PM [employer] 11/03/2024 10:50 PM [employer] Job James MD LAB BLOOD ORDERABLES Final Result Performing Organization Address [facility] Co de Phone Number [facility] SH[facility] ([place]) [address] [facility] [place] [address] * (ABNORMAL) Erythrocyte sedimentation rate (11/03/2024 10:46 PM [facility]) Erythrocyte sedimentation rate 29(H) 1 - 20 mm/hr Blood 11/03/2024 10:4 6 PM [employer] 11/03/2024 10:50 PM [employer] Job James MD LAB BLOOD ORDERABLES Final Result Performing Organization Address City/[facility]/ZIP Co de Phone Number ARI SHAH ([place]) 1 [facility] [place] [address] * CRP (acute phase) (11/03/2024 10:46 PM [employer] [employer]) CRP <3.0 <=10.0 mg/L Blood 11/03/2024 10:4 6 PM [employer] 11/03/2024 10:50 PM [employer] Job James MD LAB BLOOD ORDERABLES Final Result Performing Organization Address City/[facility]/ZIP Co de Phone Number ARI SHAH ([place]) 1 [facility] [place] [address] * Magnesium (11/03/2024 10:46 PM [facility] [employer]) Magnesium 1.8 1.4 - 2.5 mg/dL Blood 11/03/2024 10:4 6 PM [employer] 11/03/2024 10:50 PM [employer] us Job James MD LAB BLOOD ORDERABLES Final Result Performing Organization Address City/[facility]/ZIP Co de Phone Number ARI SHAH ([place]) 1 [facility] [place] [address] * Creatine kinase (CK), total (11/03/2024 10:46 PM [employer]) CK 69 30 - 200 Units/L Blood 11/03/2024 10:4 6 PM [employer] 11/03/2024 10:50 PM [employer] Job James MD LAB BLOOD ORDERABLES Final Result Performing Organization Address [facility] Co de Phone Number ARI SHAH ([place] 1 [facility] [place] [address] * Troponin T high-sensitivity series (baseline, 2hr, 4hr, 6hr) (11/03/2024 7:40 PM [employer]) Trop T hs <6 <=14 ng/L Comment: Interpretive Data For further hscTnT resources including the diagnostic algorithm and an aid in interpretation, copy and paste this link: https://nrl.testcatalog.org/show/hsTrop Current Interpretive Data last revised 2020. Blood 11/03/2024 7:40 PM [employer] 11/03/2024 7:42 PM [employer] Job James MD LAB BLOOD ORDERABLES Final Result ARI SAHH ([place] 1 [facility] [place] [address] * eGFR (11/03/2024 7:40 PM [facility]) Pathologist [facility] eGFR >90 >=60 mL/min/1. 73 m2 Comment: [...] last reviewed 2021. Blood 11/03/2024 7:40 PM [employer] 11/03/2024 7:42 PM [employer] us Job James MD LAB BLOOD ORDERABLES Final Result ARI SHAH ([place] [address] [facility] Department [place] [address] * Differential, auto (11/03/2024 7:40 PM [facility]) Neutrophil abs 4.3 1.5 - 6.5 K/cumm [...] revised on 2018. Blood 11/03/2024 7:40 PM [facility] [employer] 11/03/2024 7:42 PM [employer] Job James MD LAB BLOOD ORDERABLES Final Result [facility] ([place]) [address] [facility] Department [place] [address] * CBC with auto differential (11/03/2024 7:40 PM [employer]) WBC 6.8 3.8 - 9.9 K/cumm Hgb [...] (JD) Blood (Blood, Venous) 11/03/2024 7:40 PM [employer] 11/03/2024 7:42 PM [employer] Job James MD LAB BLOOD ORDERABLES Final Result [facility] ([place]) [address] [facility] Department [place] [address] * (ABNORMAL) Comprehensive metabolic panel (11/03/2024 7:40 PM [facility]) Pathologist [facility] Sodium 139 135 - 145 mmol/L Potassium, [...] [facility] (JD) Blood 11/03/2024 7:40 PM [employer] 11/03/2024 7:42 PM [employer] us Job James MD LAB BLOOD ORDERABLES Final Result [facility] ([place]) [address] [facility] Department [place] [address] * XR Chest 1 Vw Portable (if patient condition/safety warrant portable) (11/03/2024 7:17 PM [facility] [employer]) Anatomical Region Laterality Modality Body, Chest N/A Computed Radiogr aphy 11/03/2024 7:23 PM [facility] [employer] Narrative 11/03/2024 7:24 PM [facility] [employer] EXAM DESCRIPTION: ?? XR CHEST 1 VIEW [...] PM T: ??11/03/2024 7:24 PM Report ID: [id number] Reading Location: ??[id number] Procedure Note Paco Reyes MD - 11/03/2024 [...] Paco Reyes M.D. RB: KESHA Report ID: [id number] Reading Location: [id number] Job James MD IMG XR PROCEDURES Final Res ult * ECG 12 lead (11/03/2024 6:34 PM [employer] [employer]) 11/03/2024 6:34 PM [facility] [employer] Narrative [facility] - 11/04/2024 2:30 PM [facility] [employer] Vent Rate: 89 bpm RR Interval: 668 msec MS Interval: 116 msec QRS Duration: 88 msec QT Interval: 356 msec QTC Interval: 403 msec P-R-T Fonda: 19 - 18 - 2 degrees IMPRESSION: SINUS RHYTHM WITH SHORT MS INTERVAL LOW QRS VOLTAGE IN PRECORDIAL LEADS ??[QRS DEFLECTION < 1.0 mV IN CHEST LEADS] POSSIBLE ANTERIOR MYOCARDIAL INFARCTION , OF INDETERMINATE AGE [30 ms Q WAVE IN V3/V4, OR R < 0.2 mV IN V4] ABNORMAL ECG Compared to prior EKG, heart rate has increased Electronically Signed By: Nithin Vaca MD Job James MD ECG ORDERABLES Final Resul t [facility] [employer] [facility] * Hepatitis A antibody, IgM Blood (11/02/2024 1:41 PM [facility] [employer]) Hep A IgM Nonreactive Nonreactive Comment: Interpretive Data: If Hep A IgM Ab is reported as Equivocal, a new sample should be drawn in two weeks for testing. Current interpretive data was last revised on 20. Blood 11/02/2024 1:41 PM [facility] [employer] 11/02/2024 8:17 PM [employer] Trenton Lomeli MD LAB MICROBIOLOGY - GENERAL ORDERABLES Final Result [place] [address] [address] Department [place] [address] * Cryptosporidium and Giardia antigen assay Stool (11/02/2024 1:41 PM [facility] [employer]) Giardia Ag Negative Negative Comment:Testing performed by : [facility], [address] [place]., [address] Cryptosporidium Ag Negative Negative ARI CLAY Comment: Interpretive data: Testing performed by the [facility] Laboratory using an immunoassay that detects Cryptosporidium and Giardia antigens in stool specimens. ??If comprehensive examination for ova and parasites is required, please request Ova and Parasite Examination . Testing performed by: [facility], [address] [place]., [address] Stool 11/02/2024 1:41 PM [facility] [employer] 11/02/2024 10:22 PM [employer] Trenton Lomeli MD LAB MICROBIOLOGY - GENERAL ORDERABLES Final Result Performing Organization Address City/State/[facility] Co pr Phone Number [place] [address] [facility] Department [place] [address] * CT Abdomen Pelvis W Contrast (10/28/2024 1:10 PM [facility] [employer]) Anatomical Region Laterality Modality Body N/A Computed Tomogra phy Historical Provider IMG CT PROCEDURES Final R esult * HM PAP SMEAR (03/19/2021) Historical Provider HEALTH MAINTENANCE Final Result from Last 3 Months or Most Recently Relevant to Health Maintenance [place] Advance [place] For more information, please contact: [phone] * Full Code (Latest Code Status on File) Date Activated Date Inactivated Comments 11/09/2024 2:20 PM 11/10/2024 6:22 PM Care Teams Webmethods Consultant Relationship Specialty Start Date End Date Trenton Lomeli MD PCP - General Family Medicine 10/06/21 Neelima Velazquez MD [address] [address] Consulting Physician Gynecology 10/06/21 Maura Wilson MD [address] [place] [address] Consulting Physician Cardiology 06/16/23
--- OUTSIDE RECORDS SUMMARY | 2024-11-11 20:37 | XMS_ITS | Encounter Summary ---
Author Organization [facility] Address [address] [place] [address] Phone Care Team Providers Care It Auditor Name Role Phone Trenton Lomeli MD Primary Care Provider [phone] Neelima Velazquez MD Unavailable [phone] Encounter Details Date Type Department Care Team (Late st Contact Info) Description 12/04/2022 Telephone [facility] Cardiology [address] [facility] Advanced Medicine 8th [place] [address] [place] [address] Ginna Keith Social History Tobacco [...] on file Legal Sex Female 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 CARE 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 Gender Identity Not on file Sexual Orientation Not on file 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 [] [x]If 'Yes', Schedule first available with Cardio-Oncology Have you ever seen a Biomass Boiler Operator in an office setting? [x] [] [...] ANY cardiac issue? [x] [] Kept overnight [facility] Have you ever had an EKG? [...] [x] [] Several 24hr, 2 month long, [facility] Have you ever had a Cardiac [...] where and when was device put in? Oral Hygienist? ([employer], [employer], [place]) Notes: Being referred [...] building entry and while inside the facility. TRANSITIONS MANAGER documented in this encounter Plan of Treatment Not on file documented as of this encounter Visit Diagnoses Not on filedocumented in this encounter Care Teams It Auditor Relationship Specialty Start Date End Date Trenton Lomeli MD PCP - General Family Medicine 10/06/21 Neelima Velazquez MD [address] [address] Consulting Physician Gynecology 10/06/21 documented as of this encounter
--- OUTSIDE RECORDS SUMMARY | 2024-11-11 20:37 | XMS_ITS | Encounter Summary ---
Author Organization [facility] Healthcare Address [address] [place] [address] Care Team Providers Care Dance Artist Name Role Phone Trenton Lomeli MD Primary Care Provider [phone] Neelima Velazquez MD Unavailable [phone] Maura Wilson MD Unavailable [phone] Encounter Details Date Type Department Care Team (Late st Contact Info) Description 11/03/2024 Orders Only [facility] Medical Group Primary Care at [address] [address] Trenton Lomeli MD [address] [place] [address] [address] [place] [address] Social History Tobacco Use Types [...] on file 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 Gender Identity Not on file Sexual Orientation Not on file 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 Not on file Not on file Not on file documented as of this encounter Ordered Prescriptions Prescription Sig Dispense Quantity Refills Last Filled Start Date End Date metoprolol tartrate (LOPRESSOR) 25 mg immediate release tablet Take 0.5 tablets (12.5 mg total) by mouth 2 (two) times a day as needed (BP above 140/90) 30 tablet 11/03/2024 documented in this encounter Plan of Treatment Not on file documented as of this encounter Visit Diagnoses Not on filedocumented in this encounter Care Teams Dance Artist Relationship Specialty Start Date End Date Trenton Lomeli MD PCP - General Family Medicine 10/06/21 Neelima Velazquez MD [address] [address] Consulting Physician Gynecology 10/06/21 Maura Wilson MD [facility] [address] [place] [address] Consulting Physician Cardiology 06/16/23 documented as of this encounter
--- OUTSIDE RECORDS SUMMARY | 2024-11-11 20:37 | XMS_ITS | Encounter Summary ---
Author Organization [facility] Healthcare Address [address] [place] [address] Care Team Providers Care Rotary Furnace Operator Name Role Phone Trenton Lomeli MD Primary Care Provider [phone] Neelima Velazquez MD Unavailable [phone] Maura Wilson MD Unavailable [phone] Encounter Details Date Type Department Care Team (Late st Contact Info) Description 11/02/2024 1:45 PM STRATEGY LEAD Lab [facility] Medical Group Outpatient Lab at [address] [address] Hypercholesterolemia (Primar y Dx) Social History Tobacco Use Types Packs/Day [...] on file Legal Sex Female 4:15 AM STRATEGY LEAD Gender Identity Not on file Sexual Orientation Not on file 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 file Not on file Not on file documented as of this encounter Plan of Treatment Not on file documented as of this encounter Visit Diagnoses Diagnosis Hypercholesterolemia- Primary Pure hypercholesterolemia documented in this encounter Care Teams Rotary Furnace Operator Relationship Specialty Start Date End Date Trenton Lomeli MD PCP - General Family Medicine 10/06/21 Neelima Velazquez MD [address] [address] Consulting Physician Gynecology 10/06/21 Maura Wilson MD [address] [place] [address] Consulting Physician Cardiology 06/16/23 documented as of this encounter
--- OUTSIDE RECORDS SUMMARY | 2024-11-11 20:37 | XMS_ITS | Encounter Summary ---
Author Organization [facility] Address [address] [address] Care Team Providers Care Surveillance Dual Rate Officer Name Role Phone Trenton Lomeli MD Primary Care Provider [phone] Neelima Velazquez MD Unavailable [phone] Maura Wilson MD Unavailable [phone] Reason for Referral * Diagnostic Imaging (Routine) - Closed Specialty Diagnoses / Procedures Referred By Contac t Referred To Contact Diagnoses Class 3 severe obesity due to excess calories without serious comorbidity with body mass index (BMI) of 45.0 to 49.9 in adult (HCC) RUQ discomfort Procedures US RUQ Trenton Lomeli MD [address] [place] [address] Phone: tel: fax: External Order Referral ID Status Reason Start Date Expiration Date Visits Re quested Visits Authorized [id number] Closed 06/16/2023 07/15/2024 1 1 Reason for Visit * Reason Comments Follow-up Pt is here to f/u fr om cardiology on POTS dx and imaging. 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 You may receive a phone call, text, MYCHART message, or e-mail asking about your care today. We would love to hear your feedback on how EXCELLENT your care wastoday! Wishing you better health, always. Dr. Lomeli * Attachments The following attachments cannot be sent through Care Everywhere. * DASH Eating Plan (General Information) (Georgian) documented in this encounter Progress Notes * [...] office note has been partially dictated using Wildcard software, and as a result portions of the record may have been created with this software. Occasional wrong-word or 'rgjgi-[id number]-[id number]' substitutions may have occurred due to the [...] thickening or pericholecystic fluid. No positive sonographic Eddy sign reported. ?? BILIARY: ?? There is [...] D: ??08/06/2023 9:03 PM T: Report ID: [id number] Reading Location: ??[id number] Procedure Note Rosalva Patino MD - 08/06/2023 [...] wall thickening or pericholecystic fluid. No positivesonographic Eddy sign reported. BILIARY: There is no intrahepatic [...] Rosalva Patino M.D. QX T: Report ID: [id number] Reading Location: [id number] us Trenton Lomeli MD IMG US PROCEDURES [...] documented as of this encounter Care Teams Surveillance Dual Rate Officer Relationship Specialty Start Date End Date Trenton Lomeli MD PCP - General Family Medicine 10/06/21 Neelima Velazquez MD [address] [address] Consulting Physician Gynecology 10/06/21 Maura Wilson MD [address] [place] [address] Consulting Physician Cardiology 06/16/23 documented as of this encounter
--- OUTSIDE RECORDS SUMMARY | 2024-11-11 20:37 | XMS_ITS | Encounter Summary ---
Author Organization [facility] Address [address] [place] [address] Phone Care Team Providers Care Bird Sitter Name Role Phone Trenton Lomeli MD Primary Care Provider [phone] Neelima Velazquez MD Unavailable [phone] Reason for Referral * Cardiology (Routine) - Closed Specialty Diagnoses / Procedures Referred By Contac t Referred To Contact Diagnoses POTS (postural orthostatic tachycardia syndrome) Procedures ECG 12 lead Emilie Wilson MD Phone: tel: fax: [facility] (All Locations) Referral ID Status Reason Start Date Expiration Date Visits Re quested Visits Authorized [id number] Closed 02/22/2023 03/23/2024 1 1 * Cardiology (Routine) - Closed Specialty Diagnoses / Procedures Referred By Contac t Referred To Contact Diagnoses POTS (postural orthostatic tachycardia syndrome) Procedures Transthoracic Echo (TTE) Complete W Doppler/CF Emilie Wilson MD Phone: tel: fax: [facility] (All Locations) Referral ID Status Reason Start Date Expiration Date Visits Re quested Visits Authorized [id number] Closed 02/19/2023 03/20/2024 1 1 Encounter Details Date Type Department Care Team (Late st Contact Info) Description 02/19/2023 3:30 PM CDT Office Visit [facility] Cardiology [address] 8th [place] [address] [place] [address] Emilie Wilson MD [address] [facility] [facility] [place] [address] POTS (postural orthostatic tachycardia syndrome) (Primary Dx) [...] on file Legal Sex Female 4:15 AM 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 Lomeli: Chief Complaint: A 32-year-old female referred for evaluation of POTS. Problem List: 1. Possible postural tachycardia syndrome. a. Said to have 3 prior echocardiograms at [facility], most recently in 2018 with no recordsavailable. 2. Anxiety disorder. a. Previously seeing a psychiatrist. Currently seeing a therapist. 3. Coronavirus disease-August 2022. No hospitalizations. No oxygen. 4. History of serotonin syndrome. a. This occurred when she was at [facility] in [place], [place], associated with SSRI-hydroxyzine sleep medicine combination [...] going to gym and working with a national sales trainer. Her weight had gone down from 330 pounds to 260 pounds. Then, she had an increase in her symptoms and has not exercised and gained weight again. She tells me that she uses liquid IV when she wakes up feeling poorly, and it helps. She states in late December she was hospitalized for a week at [facility] due to dehydration, felt better with IV [...] heart rate 107; 5 minutes, 136/96, heart [id number]; 10 minutes 128/83, heart rate 112. Head [...] normal. Data: My personal review of the [facility] mobile toe stapler for nearly 24 hours in December 2019: [...] is able to work out with a national sales trainer. We discussed the elective nature of tilt-table testing and I explained that tilt-table testing is the only diagnostic test for POTS. I explained the risks and benefits. [facility] and asked that she call our office [...] 09:16 AM Emilie Wilson M.D., F.A.C.C., F.H.R.S. vice president of customer service MG/mts cc: TRENTON LOMELI MD / / [...] #: 0 Date of : 1990 (F) Technician Automatic: Pia Masters RDCS Referring Physician: EMILIE WILSON MD Contrast Agent: Patient Refused Contrast Contrast Administered by: Supervised/Interpreted by: Celeste Agosto MD Diagnosis: Location: [facility] Reason [...] 2=Hypo 3=Akinetic 4=Dyskin./Aneurysm 0=Not visualized) Parasternal Long [place]:MAS=1 BAS=1 MIL=1 ANAI=1 Parasternal Short [place]:MAS=1 MIS=1 NE=1 MIL=1 MAL=1 MA=1 Apical 4 Chambers:=1 MIS=1 BIS=1 BAL=1 MAL=1 AL=1 AC=1 Apical 2 Chambers:AI=1 NE=1 BI=1 BA=1 MA=1 AA=1 AC=1 LV Global [...] MD By signing this report, the attending private advisor certifies that he or she has personally supervised and interpreted the echocardiogram and has reviewed and or edited and agrees with the written comments contained within the report. Procedure Note Celeste Agosto MD - 05/13/2023 Patient name: Alia Fabian Date of test: 05/12/2023 Type of test: [facility] #: 0 Date of : 1990 (F) Technician Automatic: Pia Masters RDCS Referring Physician: EMILIE WILSON MD Contrast Agent: Patient Refused Contrast Contrast Administered by: Supervised/Interpreted by: Celeste Agosto MD Diagnosis: Location: [facility] Reason [...] 2=Hypo 3=Akinetic 4=Dyskin./Aneurysm 0=Not visualized) Parasternal Long [place]:MAS=1 BAS=1 MIL=1 ANAI=1 Parasternal Short [place]:MAS=1 MIS=1 NE=1 MIL=1 MAL=1 MA=1 Apical 4 Chambers:=1 MIS=1 BIS=1 BAL=1 MAL=1 AL=1 AC=1 Apical 2 Chambers:AI=1 NE=1 BI=1 BA=1 MA=1 AA=1 AC=1 LV Global [...] MD By signing this report, the attending private advisor certifies that he or she has personally [...] tachycardia documented in this encounter Care Teams Bird Sitter Relationship Specialty Start Date End Date Trenton Lomeli MD PCP - General Family Medicine 10/06/21 Neelima Velazquez MD [address] [place] [address] Consulting Physician Gynecology 10/06/21 documented as of this encounter
--- OUTSIDE RECORDS SUMMARY | 2024-11-11 20:37 | XMS_ITS | Encounter Summary ---
Author Organization [facility] Healthcare Address [address] [place] [address] Care Team Providers Care Military Nurse Name Role Phone Trenton Lomeli MD Primary Care Provider [phone] Neelima Velazquez MD Unavailable [phone] Maura Wilson MD Unavailable [phone] Reason for Visit * Reason Onset Date Comments Syncope 11/03/2024 Encounter Details Date Type Department Care Team (Late st Contact Info) Description 11/03/2024 Nurse Triage [facility] Medical Group Primary Care at [address] [address] Angela Kumar RN Social History Tobacco Use Types Packs/Day Years [...] on file Legal Sex Female 4:15 AM RESEARCH CLERK Gender Identity Not on file Sexual Orientation Not on file 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 Pt blood pressure was elevated in the ambulance 160's/90's. EMT would not perform an EKG in the ambulance. Pt blood pressure was 140's/80's in the ER. Pt stated that an EKG was not performed in the ER and pt was told in the ER that they didn't believe her, because she had been to the ER 4 times, pt was told to sit in the waiting room. Pt left AMA. I recommended that the pt go to a different ER, [facility] or [place], pt stated that she is to dizzy to drive and has no one to take her, I recommended that she call the ambulance andgo to a different ER. Pt voiced understanding and will keep Dr Lomeli posted. Pt does not have a way to check blood pressure at home ARCH CLERK * Telephone Encounter - Maura Boone MA - 11/03/2024 2:14 PM CST Medical Question/Miscellaneous Caller???s Concern: Patient is calling back due to missing the two calls from Nurse Triage. CS tried calling back line twice with no answer CS will send over as HP. Please advise and thank you so much. Does message need to be routed? Yes-Action Needed ARCH CLERK * Telephone Encounter - Angela Kumar RN - 11/03/2024 1:52 PM RESEARCH CLERK clinical rehab liaison attempted to reach pt x2 and LVM. RN closing encounter per unit policy and routing FYI toclinical pool per red flag syncope and no contact. Reason for Disposition Second attempt to contact caller AND no contact made. Phone number verified. Protocols used: No Contact or Duplicate Contact [id number] ARCH CLERK * Telephone Encounter - Celeste Mlechor RN - 11/03/2024 1:42 PM CST Regarding: passed out ----- Message from January sent at 11/03/2024 1:41 PM RESEARCH CLERK ----- Symptom Based Call Chief Complaint(s): passed out Duration: today What type of symptom(s) is the patient experiencing? Red Flag. Is the patient concerned they are experiencing a medical emergency requiring an ambulance? No Additional Comments: went to ER and left . Blood pressure was 166/102 then 143/82 not sleeping Does message need to be routed? Yes-Action Needed ARCH CLERK documented in this encounter Plan of Treatment Not on file documented as of this encounter Visit Diagnoses Not on filedocumented in this encounter Care Teams Military Nurse Relationship Specialty Start Date End Date Trenton Lomeli MD PCP - General Family Medicine 10/06/21 Neelima Velazquez MD [address] [address] Consulting Physician Gynecology 10/06/21 Maura Wilson MD [address] [place] [address] Consulting Physician Cardiology 06/16/23 documented as of this encounter
--- OUTSIDE RECORDS SUMMARY | 2024-11-11 20:37 | XMS_ITS | Encounter Summary ---
Author Organization [facility] Healthcare Address [address] [place] [address] Care Team Providers Care Clay Caster Name Role Phone Trenton Lomeli MD Primary Care Provider [phone] Neelima Velazquez MD Unavailable [phone] Maura Wilson MD Unavailable [phone] Reason for Referral * Diagnostic Imaging (Routine) - Closed Specialty Diagnoses / Procedures Referred By Judi mars Referred To Contact Diagnoses Class 3 severe obesity due to excess calories without serious comorbidity with body mass index (BMI) of 45.0 to 49.9 in adult (HCC) RUQ discomfort Procedures Trenton Yepez MD [address] [facility] [address] [place] [address] Phone: tel: fax: External Order Referral ID Status Reason Start Date Expiration Date Visits Re quested Visits Authorized [id number] Closed 06/16/2023 07/15/2024 1 1 Reason for Visit * Diagnostic Imaging (Routine) - Closed Specialty Diagnoses / Procedures Referred By Judi mars Referred To Contact Diagnoses Class 3 severe obesity due to excess calories without serious comorbidity with body mass index (BMI) of 45.0 to 49.9 in adult (HCC) RUQ discomfort Procedures Trenton Yepez MD [address] [facility] [address] [place] [address] Phone: tel: fax: External Order Referral ID Status Reason Start Date Expiration Date Visits Re quested Visits Authorized [id number] Closed 06/16/2023 07/15/2024 1 1 Encounter Details Date Type Department Care Team (Latest Contact Info) Description 08/06/2023 12:40 PM CDT - 08/06/2023 11:59 PM CDT Hospital Encounter [address] [address] Class 3 severe obesity due to excess [...] on file Legal Sex Female 4:15 AM DICE SPOTTER Gender Identity Not on file Sexual Orientation Not on file 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 No positive sonographic [place] sign reported. ?? BILIARY: ?? There is [...] D: ??08/06/2023 9:03 PM T: Report ID: [id number] Reading Location: ??[id number] Procedure Note Rosalva Patino MD - 08/06/2023 [...] wall thickening or pericholecystic fluid. No positivesonographic [place] sign reported. BILIARY: There is no intrahepatic [...] Rosalva Patino M.D. QX T: Report ID: [id number] Reading Location: [id number] us Trenton Lomeli MD IM US PROCEDURES Final Res ult documented in this encounter Visit Diagnoses Diagnosis Class 3 severe obesity due to excess calories without serious comorbidity with body mass index (BMI) of 45.0 to 49.9 in adult (HCC) RUQ discomfort documented in this encounter Care Teams Clay Caster Relationship Specialty Start Date End Date Trenton Lomeli MD PCP - General Family Medicine 10/06/21 Neelima Velazquez MD [address] [place] [address] Consulting Physician Gynecology 10/06/21 Maura Wilson MD [address] [place] [address] Consulting Physician Cardiology 06/16/23 documented as of this encounter
--- OUTSIDE RECORDS SUMMARY | 2024-11-11 20:37 | XMS_ITS | Encounter Summary ---
Author Organization [facility] Healthcare Address [address] [place] [address] Care Team Providers Care Senior Systems Administrator Name Role Phone Trenton Lomeli MD Primary Care Provider [phone] Neelima Velazquez MD Unavailable [phone] Maura Wilson MD Unavailable [phone] Encounter Details Date Type Department Care Team (Late st Contact Info) Description 11/02/2024 3:00 PM INSULATION CUTTER Lab [facility] Medical Group Outpatient Lab at [address] [address] Social History Tobacco Use Types Packs/Day Years [...] on file Legal Sex Female 4:15 AM INSULATION CUTTER Gender Identity Not on file Sexual Orientation Not on file 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
--- OUTSIDE RECORDS SUMMARY | 2024-11-11 20:37 | XMS_ITS | Encounter Summary ---
Author Organization [facility] Healthcare Address [address] [place] [address] Care Team Providers Care Employment Legal Assistant Name Role Phone Trenton Lomeli MD Primary Care Provider [phone] Neelima Velazquez MD Unavailable [phone] Maura Wilson MD Unavailable [phone] Reason for Visit * Reason Onset Date Comments needs follow up appointment 11/03/2024 Encounter Details Date Type Department Care Team (Late st Contact Info) Description 11/03/2024 Nurse Triage [facility] Medical Group Primary Care at [address] [address] Trenton Lomeli MD [address] [place] [address] [address] [place] [address] Social History Tobacco Use Types [...] on file Legal Sex Female 4:15 AM COM WRITER Gender Identity Not on file Sexual Orientation Not on file 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 LMOM to contact the office back at [phone] Regarding: Telephone task has been made. Please relay: Called to check on the patient and schedule her an appointment WRITER * Telephone Encounter - Maliha Onofre RN - 11/03/2024 4:43 PM CST Alia Fabian reports returning to ED after passing out today. Pt was in bed around 0900 and noticed her heart rate was less than 60, Pt sat up, felt dizzy and passed out. Pt called EMS and was taken to ED and has left without being seen related to long wait times. Pt home by 1315 today and has continued to feel horrible related to ongoing abdominal s/s including pain, diarrhea and/or constipation, cold sweats, gas pain, anorexia and nausea. Pt states Hx of similar s/s in 2016 and was followed by GI at that time for IBS and seeing a Therapist to assist with anxiety. Pt had not had any serious prolonged episodes of these s/s until recently in the last month or so. Recent stressors include of Aunt from heart attack during the holidays and limited support system. Dietary Hx: Pt is Pescetarian and does not eat dairy or gluten. Recently Pt has not been unable to johnathon much po intake as it worsens s/s. Pt feels lips are dry and she may be heading towards dehydration since unable to johnathon most Po intake without causing worsening s/s. DISPO: See PCP within 2 weeks Reviewed care advice including extensive nutrition recommendations, current stress management techniques, moist heat to abdomen, scrap picker Rx Bentyl and take per MD orders, call back for further assistwith RN avail 24/05 via PCP number. Pt instructed to keep a food log with time, date, food and any symptoms experienced. Routing to clin pool: This Pt may benefit from GI consult. If PCP thinks appropriate, Pt is asking for consult to be in area near her ([place]). Pls contact Alia Rui at [phone] for further assist. Reason for Disposition Simple fainting is a chronic symptom (has occurred multiple times) Protocols used: [id number] WRITER * Telephone Encounter - Maliha Onofre RN - 11/03/2024 4:15 PM CST Regarding: passed out ----- Message from Elle Dwain sent at 11/03/2024 4:12 PM COM WRITER ----- Symptom Based Call Chief Complaint(s): passed out Duration: today What type of symptom(s) is the patient experiencing? Red Flag. Is the patient concerned they are experiencing a medical emergency requiring an ambulance? No Additional Comments: patient went to ER and left, Blood pressure was 166/102 then 143/82. Patient call earlier and missed the first two calls Does message need to be routed? Yes-Action Needed WRITER documented in this encounter Plan of Treatment Not on file documented as of this encounter Visit Diagnoses Not on filedocumented in this encounter Care Teams Employment Legal Assistant Relationship Specialty Start Date End Date Trenton Lomeli MD PCP - General Family Medicine 10/06/21 Neelima Velazquez MD [address] [address] Consulting Physician Gynecology 10/06/21 Maura Wilson MD [address] [place] [address] Consulting Physician Cardiology 06/16/23 documented as of this encounter
--- OUTSIDE RECORDS SUMMARY | 2024-11-11 20:37 | XMS_ITS | Encounter Summary ---
Author Organization [facility] Healthcare Address [address] [place] [address] Care Team Providers Care Freight Hustler Name Role Phone Trenton Lomeli MD Primary Care Provider [phone] Neelima Velazquez MD Unavailable [phone] Maura Wilson MD Unavailable [phone] Reason for Referral * MRI/CAT/PET Scan (Routine) - Closed Specialty Diagnoses / Procedures Referred By Contac t Referred To Contact Radiology Procedures CT Abdomen Pelvis W Contrast Misael Palacios MD [address] [place] [address] Phone: tel: Referral ID Status Reason Start Date Expiration Date Visits Re quested Visits Authorized [id number] Closed 10/30/2024 11/29/2025 1 1 APPLICATIONS DEVELOPER Encounter Details Date Type Department Care Team (Late st Contact Info) Description 10/30/2024 Orders Only [facility] Medical Group Primary Care at [address] [address] Misael Palacios MD [address] [place] [address] Social History Tobacco Use Types [...] on file Legal Sex Female 4:15 AM WEB APPLICATIONS DEVELOPER Gender Identity Not on file Sexual Orientation Not on file 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 file Not on file Not on file documented as of this encounter Plan of Treatment Not on file documented as of this encounter Procedures Procedure Name Priority Date/Time Associated Diagnosis Comments CT ABDOMEN PELVIS W CONTRAST Schedule Routine, Read Routine (OP Routine) 10/28/2024 1:10 PM WEB APPLICATIONS DEVELOPER documented in this encounter Results * CT Abdomen Pelvis W Contrast (10/28/2024 1:10 PM WEB APPLICATIONS DEVELOPER) Anatomical Region Laterality Modality Body N/A Computed Tomogra phy Historical Provider MD [facility] CT PROCEDURES Final R esult documented in this encounter Visit Diagnoses Not on filedocumented in this encounter Care Teams Freight Hustler Relationship Specialty Start Date End Date Trenton Lomeli MD PCP - General Family Medicine 10/06/21 Neelima Velazquez MD [address] [address] Consulting Physician Gynecology 10/06/21 Maura Wilson MD [address] [place] [address] Consulting Physician Cardiology 06/16/23 documented as of this encounter
--- OUTSIDE RECORDS SUMMARY | 2024-11-11 20:37 | XMS_ITS | Encounter Summary ---
Author Organization [facility] Healthcare Address [address] [place] [address] Care Team Providers Care Brake Machine Operator Name Role Phone Trenton Lomeli MD Primary Care Provider [phone] Neelima Velazquez MD Unavailable [phone] Reason for Referral * Cardiology (Routine) - Closed Specialty Diagnoses / Procedures Referred By Contac t Referred To Contact Diagnoses POTS (postural orthostatic tachycardia syndrome) Procedures Transthoracic Echo (TTE) Complete W Doppler/CF Maura Wilson MD Phone: tel: fax: [facility] (All Locations) Referral ID Status Reason Start Date Expiration Date Visits Re quested Visits Authorized [id number] Closed 02/19/2023 03/20/2024 1 1 Reason for Visit * Cardiology (Routine) - Closed Specialty Diagnoses / Procedures Referred By Contac t Referred To Contact Diagnoses POTS (postural orthostatic tachycardia syndrome) Procedures Transthoracic Echo (TTE) Complete W Doppler/CF Maura Wilson MD Phone: tel: fax: [facility] (All Locations) Referral ID Status Reason Start Date Expiration Date Visits Re quested Visits Authorized [id number] Closed 02/19/2023 03/20/2024 1 1 Encounter Details Date Type Department Care Team (Latest Contact Info) Description 05/12/2023 3:20 PM CDT - 05/12/2023 11:59 PM CDT Hospital Encounter [facility] [address]th [place] [address] Maura Wilson MD [address] [place] [address] POTS (postural orthostatic tachycardia syndrome) Discharge Disposition: [...] on file Legal Sex Female 4:15 AM PIPE FITTER SUPERVISOR MAINTENANCE Gender Identity Not on file Sexual Orientation Not on file 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 file Not on file Not on file documented as of this encounter Medications at Time of Discharge BIOTIN ORAL Take by mouth 5 cannabidiol, CBD, (EPIDIOLEX) 100 mg/mL solution Take 5 mg/kg by mouth nightly as needed 5 hydrOXYzine (ATARAX) 50 mg tablet Take 1 tablet (50 mg total) by mouth every 6 (six) hours as needed 07/31/2022 5 Lactobacillus acidophilus (PROBIOTIC ORAL) Take by mouth 06/16 3 multivitamin capsule Take 1 capsule by mouth daily 5 rosuvastatin (Crestor) 20 mg tabletIndications:Mi xed hyperlipidemia [...] test: 05/12/2023 Type of test: TTE w/Doppler [facility] #: 0 Date of : 1990 (F) Professional Application Designer: Pia Masters RDCS Referring Physician: MAURA WILSON MD Contrast Agent: Patient Refused Contrast Contrast Administered by: Supervised/Interpreted by: Celeste Meade MD Diagnosis: Location: [facility] Reason for test: POTS MV Structure: [...] 2=Hypo 3=Akinetic 4=Dyskin./Aneurysm 0=Not visualized) Parasternal Long [place]:MAS=1 BAS=1 MIL=1 ANAI=1 Parasternal Short [place]:MAS=1 MIS=1 NM=1 MIL=1 MAL=1 MA=1 Apical 4 Chambers:=1 MIS=1 BIS=1 BAL=1 MAL=1 AL=1 AC=1 Apical 2 Chambers:AI=1 NM=1 BI=1 BA=1 MA=1 AA=1 AC=1 LV Global [...] MD By signing this report, the attending maintenance millwright certifies that he or she has personally supervised and interpreted the echocardiogram and has reviewed and or edited and agrees with the written comments contained within the report. Procedure Note De Celeste Jarquin MD - 05/13/2023 Patient name: Alia Fabian Date of test: 05/12/2023 Type of test: TTE w/Doppler [facility] #: 0 Date of : 1990 (F) Professional Application Designer: Pia Masters RDCS Referring Physician: MAURA WILSON MD Contrast Agent: Patient Refused Contrast Contrast Administered by: Supervised/Interpreted by: Celeste Meade MD Diagnosis: Location: [facility] Reason for test: POTS MV Structure: [...] 2=Hypo 3=Akinetic 4=Dyskin./Aneurysm 0=Not visualized) Parasternal Long [place]:MAS=1 BAS=1 MIL=1 ANAI=1 Parasternal Short [place]:MAS=1 MIS=1 NM=1 MIL=1 MAL=1 MA=1 Apical 4 Chambers:=1 MIS=1 BIS=1 BAL=1 MAL=1 AL=1 AC=1 Apical 2 Chambers:AI=1 NM=1 BI=1 BA=1 MA=1 AA=1 AC=1 LV Global [...] MD By signing this report, the attending maintenance millwright certifies that he or she has personally supervised and interpreted the echocardiogram and has reviewed and or edited and agrees with the written comments contained within the report. us Maura Wilson MD CV ECHO PROCEDURES Final Resul t documented in this encounter Visit Diagnoses Diagnosis POTS (postural orthostatic tachycardia syndrome) Unspecified tachycardia documented in this encounter Care Teams Brake Machine Operator Relationship Specialty Start Date End Date Trenton Lomeli MD PCP - General Family Medicine 10/06/21 Neleima Velazquez MD [address] [address] Consulting Physician Gynecology 10/06/21 documented as of this encounter
--- OUTSIDE RECORDS SUMMARY | 2024-11-11 20:37 | XMS_ITS | Encounter Summary ---
Author Organization [facility] Healthcare Address [address] [place] [address] Care Team Providers Care Teller Coordinator Name Role Phone Trenton Lomeli MD Primary Care Provider [phone] Neelima Velazquez MD Unavailable [phone] Maura Wilson MD Unavailable [phone] Reason for Visit * Reason Onset Date Comments Recommendation Request 09/22/2023 Encounter Details Date Type Department Care Team (Late st Contact Info) Description 09/22/2023 Telephone [facility] Primary Care at [address] [address] Trenton Lomeli MD [address] [place] [address] [address] [place] [address] Recommendation Request Social History Tobacco [...] on file Legal Sex Female 4:15 AM HOTEL SERVICE MANAGER Gender Identity Not on file Sexual Orientation Not on file 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 Specialty: Endocrinology Why does the patient want to go to this specialist? Prolactin is high, hyperthyroid symptoms Additional Comments/Concerns: none Does message need to be routed? Yes-Action Needed L SERVICE MANAGER documented in this encounter Plan of Treatment Not on file documented as of this encounter Visit Diagnoses Diagnosis Hyperthyroidism- Primary Thyrotoxicosis without mention of goiter or other cause, without mention of thyrotoxic crisis or storm Hyperprolactinemia (HCC) Other and unspecified anterior pituitary hyperfunction documented in this encounter Care Teams Teller Coordinator Relationship Specialty Start Date End Date Trenton Lomeli MD PCP - General Family Medicine 10/06/21 Neelima Velazquez MD [address] [address] Consulting Physician Gynecology 10/06/21 Maura Wilson MD [address] [place] [address] Consulting Physician Cardiology 06/16/23 documented as of this encounter
--- OUTSIDE RECORDS SUMMARY | 2024-11-11 20:37 | XMS_ITS | Continuity of Care Document ---
Author Organization [facility] Address [address] [place] [address] [place] [address] Phone Care Team Providers Care Injection Maintenance Technician Name Role Phone [facility] Unavailable Unavail able Ame Hollis Unavailable Unavailable Procedures Procedure Date Vision Sv Frames Purchases SV Poly Carb Sph [place] To +/- 4 010 Contact Lens Hydrophilic, Spherical Medical Tax Eye Exam & Treatment Refraction Office/outpatient Visit, Est Progressive Lens, Polycarb Frames Deluxe Anti-reflective Coating Anti-reflective Coating Frames Deluxe SV Poly Carb Sph +/- 7.12 To +/- 20 D Oc Tax - Medical Vision Svcs Frames Purchases SV Poly Carb Sph [place] To +/- 4 007 Eye Exam & Treatment Refraction Corneal Pachymetry Fundus Photography W/ Report Advance Directives Directive Yes / No Effective Date File Name No Information Encounters Encounter Description Practice Location Reason(s) For Visit Diagnoses Date Provider Providers Copied on Encounter [facility], [address] [place] [address] [address], [place], [place], [id number], [place] tel:[phone] [facility] No Information 2-201 0 [facility] . [address] [facility] [facility] [address], [address], [place], [place], [address], [place]. tel:[phone] Referring Provider: Deric Downey OD A, [address], [place], [address]. tel:[phone] g Provider: Ame Hollis, [address] [place], [address]. tel:[phone] [facility], [address], [place], [place], [id number], [place] tel:[phone] [facility] No Information 1-201 0 Downey OD Deric. [address] [facility] , [address], [place], [address], [place]. tel:[phone] [facility], [address], [place], [place], [address], [place] tel:[phone] [facility] No Information 3-201 0 Downey OD Deric. [address] [facility] [address] , [address], [place], [address], [place]. tel:[phone] Office/outpat ient Visit, Est [facility], [address], [place], [place], [address], [place] tel:[phone] [facility] No Information Dec-2 3-200 9 Doisy Edward. [address] [facility] [address] , [address], [place], [address], [place]. tel:[phone] [facility], [address], [place], [place], [address], [place] tel:[phone] [facility] No Information Dec-2 3-200 9 [facility] . [address] [facility], [address], [place], [place], [address], [place]. tel:[phone] Referring Provider: Juan Pablo [place], [address], [place], [address]. tel:[phone] marco Provider: Sissy Enriquez, [address] [place], [address]. tel:[phone] [facility], [address], [place], [place], [address], [place] tel:[phone] [facility] No Information 9-200 7 [facility] . [address] [facility], [address], [place], [address], [place]. tel:[phone] Consulting Provider: Sissy Enriquez, [address] [place] [address], [address]. tel:[phone] [facility], [address], [place], [place], [address], [place] tel:[phone] [facility] No Information 2-200 7 [facility] . [address] [facility], [address], [place], [place], [address], [place]. tel:[phone] Referring Provider: Juan Pablo [place], [address] [facility] [address], [place], [address]. tel:[phone] g Provider: Ame Hollis, [address] [place], [address]. tel:[phone] [facility], [address], [place], [place], [address], [place] tel:[phone] [facility] No Information 8-200 7 Blaire Almeida. [address] , [address], [place], [address], [place]. tel:[phone] Referring Provider: Juan Pablo [place], [address] [facility] [address], [place], [address]. tel:[phone] Family History Family Member Type Diagnosis Age At Onset No Information Payers Payer name Insurance type Covered democrat ID Authoriza tion(s) No Information Social History [...]
--- OUTSIDE RECORDS SUMMARY | 2024-11-11 20:37 | XMS_ITS | Encounter Summary ---
Author Organization [facility] Healthcare Address [address] [place] [address] Care Team Providers Care Emt Paramedic Name Role Phone Trenton Lomeli MD Primary Care Provider [phone] Neelima Velazquez MD Unavailable Maura Wilson MD Unavailable [phone] Encounter Details Date Type Department Care Team (Latest Contact Info) Description 11/02/2024 1:41 PM DAG COATER - 11/02/2024 11:59 PM DAG COATER Hospital Encounter 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 file Not on file Not on file documented as of this encounter Medications at Time of Discharge dicyclomine (BENTYL) 10 mg capsuleIndicatio ns:Irritable Bowel Syndrome Take 1 capsule (10 mg total) by mouth 4 (four) times a day before meals and nightly 120 capsule 11/02/2024 11/02/2025 diphenoxylate-at ropine (LOMOTIL) 2.5-0.025 mg per tabletIndication s:diarrhea Take 1 tablet by mouth 2 (two) times a day as needed for diarrhea 30 tablet 11/02/2024 ondansetron (Zofran) 4 mg tabletIndication s:functional GI symptoms Take 1 tablet (4 mg total) by mouth every 8 (eight) hours as needed for nausea or vomiting 20 tablet 1 11/02/2024 BIOTIN ORAL Take by mouth 11/10/2024 cannabidiol, [...] Procedure Name Priority Date/Time Associated Diagnosis Comments HEPATITIS A ANTIBODY, IGM Routine 11/02/2024 1:41 PM DAG COATER Diarrhea of presumed infectious origin CRYPTOSPORIDIUM AND GIARDIA ANTIGEN ASSAY Routine 11/02/2024 1:41 PM DAG COATER Diarrhea of presumed infectious origin documented in this encounter Results * Cryptosporidium and Giardia antigen assay Stool (11/02/2024 1:41 PM DAG COATER) Giardia Ag Negative Negative Comment:Testing performed by : [facility], [address] [place]., [address] Cryptosporidium Ag Negative Negative ARI Comment: Interpretive data: Testing performed by the [facility] using an immunoassay that detects Cryptosporidium and Giardia antigens in stool specimens. ??If comprehensive examination for ova and parasites is required, please request Ova and Parasite Examination . Testing performed by: [facility], [address] [place]., [address] Stool 11/02/2024 1:41 PM DAG COATER 11/02/2024 10:22 PM DAG COATER Trenton Lomeli MD LAB MICROBIOLOGY - GENERAL ORDERABLES Final Result Performing Organization Address [facility] Phone Number [place] [phone] [place] [address] * Hepatitis A antibody, IgM Blood (11/02/2024 1:41 PM DAG COATER) Hep A IgM Nonreactive Nonreactive Comment: Interpretive Data: If Hep A IgM Ab is reported as Equivocal, a new sample should be drawn in two weeks for testing. Current interpretive data was last revised on 20. Blood 11/02/2024 1:41 PM DAG COATER 11/02/2024 8:17 PM DAG COATER Trenton Lomeli MD LAB MICROBIOLOGY - GENERAL ORDERABLES Final Result Performing Organization Address [facility] Co de Phone Number [place] [phone] [place], [place] [phone] documented in this encounter Visit Diagnoses Diagnosis Diarrhea of presumed infectious origin documented in this encounter Care Teams Emt Paramedic Relationship Specialty Start Date End Date Trenton Lomeli MD PCP - General Family Medicine 10/06/21 Neelima Velazquez MD [address] [address] Consulting Physician Gynecology 10/06/21 Maura Wilson MD [address] [place] [address] Consulting Physician Cardiology 06/16/23 documented as of this encounter
--- OUTSIDE RECORDS SUMMARY | 2024-11-11 20:37 | XMS_ITS | Encounter Summary ---
Author Organization [facility] Healthcare Address [address] [place] [address] Care Team Providers Care Disc Pad Grinding Machine Feeder Name Role Phone Trenton Lomeli MD Primary Care Provider [phone] Neelima Velazquez MD Unavailable [phone] Maura Wilson MD Unavailable [phone] Reason for Visit * Reason Comments Multiple Medical Complaints Encounter Details Date Type Department Care Team (Late st Contact Info) Description 11/03/2024 10:04 PM PBX MECHANIC - 11/04/2024 12:14 AM [facility] Emergency [facility] Emergency Department [address] [place] [id number] Job James MD [address] [place] [address] Sleep disturbance (Primary Dx); Chronic abdominal pain [...] on file Legal Sex Female 4:15 AM PBX MECHANIC Gender Identity Not on file Sexual Orientation Not on file 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 Not on file Not on file documented as of this encounter Last Filed Vital Signs Vital Sign Reading Time Taken Comments Blood Pressure 130/66 11/04/2024 12:00 AM PBX MECHANIC Pulse 64 11/04/2024 12:00 AM PBX MECHANIC Temperature 36.8 ??C (98.2 ??F) 11/03/2024 10:[address] Respiratory Rate 23 11/04/2024 12:00 AM PBX MECHANIC Oxygen Saturation 99% 11/04/2024 12:00 AM PBX MECHANIC Inhaled Oxygen Concentration - - Weight 119.3 kg (263 lb) 11/03/2024 6:29 PM PBX MECHANIC Height 170.2 cm (5' 7 ) 11/03/2024 6:29 PM PBX MECHANIC Body Mass Index 41.19 11/03/2024 6:29 PM PBX MECHANIC documented in this encounter Medications at Time of Discharge [...] 6 (six) hours as needed 07/31/2022 11/10/2024 metoprolol tartrate (LOPRESSOR) 25 mg immediate release tablet Take 0.5 tablets (12.5 mg total) by mouth 2 (two) times a day as needed (BP above 140/90) 30 tablet 11/03/2024 11/10/2024 multivitamin capsule Take 1 capsule by mouth daily 11/10/2024 temazepam (RESTORIL) 15 mg capsuleIndicatio ns:Insomnia Take 1 capsule (15 mg total) by mouth nightly as needed for sleep for up to 20 days 20 capsule 11/03/2024 11/10/2024 documented as of this encounter Ordered Prescriptions Prescription Sig Dispense Quantity Refills Last Filled Start Date End Date temazepam (RESTORIL) 15 mg capsuleIndications :Insomnia Take 1 capsule (15 mg total) by mouth nightly as needed for sleep for up to 20 days 20 capsule 11/03/2024 documented in this encounter Discharge Disposition Disposition Code Departure Means Destination Comment s Discharge to home or self care Labs and tests reviewed with pt, per pt request. New prescription given to pt. Education on new medicine and follow-up care provided. Pt stated understanding. Discharge paperwork given to pt, and IV site removed. documented in this encounter ED Notes * Job James MD - 11/03/2024 10:29 PM CST Chief Complaint Patient presents with Multiple Medical Complaints HPI 11/03/2024 10:29 PM Alia Fabian is a 34 y.o. female former smoker with a h/o GERD, HLD, HTN, anxiety, and obesity who presents to the ED with abdominal pain that began 1 month ago and has been gradually worsening. Pt also states that she recently ate gluten when she normally does not and believes is that cause of her abdominal pain. Pt says that she has had diarrhea that has now turned into constipation. Pt previously went to [facility] for similar complaints but was unhappy with care so decided to come here. Pt says she has lost 15 pounds due to not eating. Additionally pt says she feels weak, has cold feet, and has not been able to sleep. She reports that when she is about to sleep she feels a pressure in her ear which keeps her from sleeping for the past 3 nights. No other complaints at this time. Past Medical History: Diagnosis Date Anxiety and depression GERD (gastroesophageal reflux disease) HX OTHER MEDICAL anxiety, depression, palpitations, htn, obesity, d; Comments: MAF 10/02/2016 - Menstrual problem Morbid obesity (HCC) PCOS (polycystic ovarian syndrome) 10/06/2021 Past Surgical History: Procedure Laterality Date WISDOM TOOTH EXTRACTION Oral Surgery Tooth Extraction Sutter Tooth - (Added by TW Conv) Family [...] Social History Tobacco Use Smoking status: Former Current packs/day: 0.00 Average packs/day: 1.3 packs/day for 13.0 years (16.3 ttl pk-yrs) Types: Cigarettes Start date: 11/01/2001 Quit date: 11/01/2014 Years since quittin.0 Smokeless tobacco: Never Substance and Sexual Activity Drug use: Not Currently Types: Marijuana Comment: now just uses CBD Sexual activity: Not Currently Partners: Female control/protection: OCP Alcohol Use: Not At Risk (10/06/2021) AUDIT-C Frequency of Alcohol Consumption: Never Average Number of Drinks: Not on file Frequency of Binge Drinking: Never Review of Systems Review of Systems Constitutional: Positive for unexpected weight change. Negative for chills and fever. HENT: Positive for ear pain. Negative for congestion. Eyes: Negative for pain and discharge. Respiratory: Negative for cough and shortness of breath. Cardiovascular: Negative for chest pain and palpitations. Gastrointestinal: Positive for abdominal pain, constipation and diarrhea. Negative for nausea and vomiting. Genitourinary: Negative for dysuria and frequency. Musculoskeletal: Negative for back pain and myalgias. Skin: Negative for rash and wound. Neurological: Positive for weakness. Negative for dizziness and headaches. Psychiatric/Behavioral: Positive for sleep disturbance. Physical Exam ED Triage Vitals Temp Pulse Resp BP SpO2 11/03/24182811/03/24182811/03/24182811/03/24182811/03/241828 36.7 ??C (98 ??F) 89 16 145/95 99 % Temp src Heart Rate Source Patient Position BP Location FiO2 (%) 11/03/241828 -- -- 11/03/245 -- Temporal Left arm Height Height Method Weight Weight Method 11/03/24182811/03/24182811/03/24182811/03/241828 1.702 m (5' 7 ) Stated 119.3 kg (263 lb) Stated Physical Exam Vitals and nursing note reviewed. Constitutional: Comments: Pleasant well appearing female with ear gauges. HENT: Head: Normocephalic and atraumatic. Comments: Face symmetrical. Mouth/Throat: Mouth: Mucous membranes are dry. Comments: Speech clear and fluent. Dry tongue and lips Eyes: Extraocular Movements: Extraocular movements intact. Conjunctiva/sclera: Conjunctivae normal. Neck: Vascular: No JVD. Cardiovascular: Rate and Rhythm: Normal rate and regular rhythm. Pulses: Normal pulses. Heart sounds: Heart sounds are distant. Pulmonary: Effort: Pulmonary effort is normal. No respiratory distress. Breath sounds: Normal breath sounds. Comments: Lungs clear with decreased air flow Abdominal: Palpations: Abdomen is soft. Tenderness: There is abdominal tenderness. There is no guarding or rebound. Comments: Mild abdominal pain with no localization. Musculoskeletal: Cervical back: Normal range of motion and neck supple. Lymphadenopathy: Cervical: No cervical adenopathy. Skin: General: Skin is cool and dry. Neurological: General: No focal deficit present. Mental Status: She is alert and oriented to person, place, and time. Procedures Labs Reviewed COMPREHENSIVE METABOLIC PANEL - Abnormal Result Value Sodium 139 Potassium, pl 3.4 Chloride 103 CO2 25 Anion gap 11 BUN 4 (*) Creatinine 0.54 (*) Glucose 104 Calcium 9.3 Bilirubin, total 0.6 Protein, pl 7.4 Albumin 4.6 Alk phos 57 ALT 11 AST 16 ERYTHROCYTE SEDIMENTATION RATE - Abnormal Erythrocyte sedimentation rate 29 (*) CBC WITH AUTO DIFFERENTIAL WBC 6.8 Hgb 12.9 Hct 38.7 Plt 280 MPV 9.3 RBC 4.41 MCV 87.8 MCH 29.3 MCHC 33.3 RDW CV 12.3 RDW SD 39.8 NRBC abs 0.00 TROPONIN T HIGH-SENSITIVITY SERIES (BASELINE, 2HR, 4HR, 6HR) Trop T hs <6 DIFFERENTIAL AUTO Neutrophil abs 4.3 Imm gran abs 0.0 Lymphocyte abs 1.8 Monocyte abs 0.5 Eosinophil abs 0.1 Basophil abs 0.1 Neutrophil pct 63.7 Imm gran pct 0.3 Lymphocyte pct 26.9 Monocyte pct 7.5 Eosinophil pct 0.7 Basophil pct 0.9 TROPONIN T HIGH-SENSITIVITY 2-HOUR Trop T hs 7 Trop T hs delta See Comment Trop T hs pct delta See Comment Trop T hs interp See Comment EGFR eGFR >90 CRP (ACUTE PHASE) CRP <3.0 PRO B-TYPE NATRIURETIC PEPTIDE NT-proBNP 51 CREATINE KINASE (CK), TOTAL CK 69 THYROID FUNCTION CASCADE TSH 1.[address] Head WO Contrast Final Result XR Chest 1 Vw Portable (if patient condition/safety warrant portable) Final Result BP 130/66 Pulse 64 Temp 36.8 ??C (98.2 ??F) (Temporal) Resp 23 Ht 170.2 cm (5' 7 ) Wt 119.3 kg (263 lb) LMP 10/27/2024 (Approximate) SpO2 99% BMI 41.19 kg/m?? Medical Decision Making ED Course as of 11/05/24 1431 Time: 11/03 2230 Comment: CT scan with contrast on 10/28 at [facility] is unremarkable and Dr. Lomeli saw her yesterday By: Job James MD Time: 11/03 2234 Comment: Patient does have lipid panel abnormalities she was very low-voltage laterally with nonspecific T-waves and a strong right axis By: Job James MD Time: 11/03 2313 Comment: Patient reports that the leads in triage she had to hold on so that EKG probably had poor electrical conduction her 2nd EKG is completely normal sinus rate [address] segments she does have mild LVH from her history of obesity By: Job James MD Final diagnoses: Sleep disturbance Chronic abdominal pain This note is prepared by Alexandru Cortez, acting as a scribe for Job James MD. I electronically signed this note at 2:31 PM on 11/05/2024. Aleida Shaw scribed for Job James MD, in the doctor's presence. I electronically signed this note at 11:36 PM on 11/03/2024. I, Job James MD, have personally performed the services described in the documentation, reviewed and edited the documentation which was dictated to the scribe in my presence, and it accurately records my words and actions. Alexandru Cortez 11/03/24 1015 Alexandru Cortez 11/03/24 2312 Alexandru Cortez 11/03/24 8139 Aleida Shaw 11/03/24 2336 Job James MD 11/05/24 1431 MECHANIC * Linh Joshua RN - 11/03/2024 6:26 PM CST Pt to triage via EMS for c/o chest pain, can't sleep or eat, my pulse is slow and I'm having facialspasms x 1 week . Pt also reports SOB intermittently today. Pt reports she woke up today and her pulse was 59, she sat up and everything went black. Pt was laying on her bed so she does not believe she hit her head when she passed out. Pt denies any cardiac hx. MECHANIC documented in this encounter Miscellaneous Notes * ED Procedure Note - Job James MD - 11/03/2024 10:34 PM CSTAssociated Order(s): ECG 12 lead Procedure ECG 12 lead Date/Time: 11/03/2024 10:34 PM Performed by: Job James MD Authorized by: Job James MD Rate: ECG rate: 89 Rhythm: Rhythm: sinus rhythm Ectopy: Ectopy: none QRS: QRS axis: Right QRS intervals: Normal ST segments: ST segments: Non-specific T waves: T waves: flattening Other findings: Other findings: low voltage Previous ECG: Previous ECG: Unavailable Interpretation: Interpretation: abnormal Recommended Follow-up: Recommended follow up: cardiac workup Job James MD 11/03/245 MECHANIC documented in this encounter Plan of Treatment Not on file documented as of this encounter Procedures Procedure Name Priority Date/Time Associated Diagnosis Comments ECG 12-LEAD Routine 11/03/2024 11:[address] HEAD WO CONTRAST ED 11/03/2024 1 0:53 PM PBX MECHANIC TROPONIN T HIGH-SENSITIVITY 2-HOUR Timed 11/03/2024 10:46 PM PBX MECHANIC PRO B-TYPE NATRIURETIC PEPTIDE STAT 11/03/2024 10:46 PM PBX MECHANIC THYROID FUNCTION CASCADE Add-On 11/03/2024 10:46 PM PBX MECHANIC ERYTHROCYTE SEDIMENTATION RATE STAT 11/03/2024 10:46 PM PBX MECHANIC CRP (ACUTE PHASE) STAT 11/03/2024 10: 46 PM PBX MECHANIC MAGNESIUM Routine 11/03/2024 10:46 PM PBX MECHANIC CREATINE KINASE (CK), TOTAL STAT 11/03/2024 10:46 PM PBX MECHANIC TROPONIN T HIGH-SENSITIVITY SERIES (BASELINE, 2HR, 4HR, 6HR) STAT 11/03/2024 7:40 PM PBX MECHANIC EGFR STAT 11/03/2024 7:40 PM PBX MECHANIC DIFFERENTIAL AUTO STAT 11/03/2024 7:4 0 PM PBX MECHANIC CBC WITH AUTO DIFFERENTIAL STAT 11/03/2024 7:40 PM PBX MECHANIC COMPREHENSIVE METABOLIC PANEL STAT 11/03/2024 7:40 PM PBX MECHANIC XR CHEST 1 VIEW ED 11/03/2024 7:17 PM PBX MECHANIC ECG 12-LEAD STAT 11/03/2024 6:34 PM PBX MECHANIC documented in this encounter Results * ECG 12 lead (11/03/2024 11:04 PM PBX MECHANIC) 11/03/2024 11:0 4 PM PBX MECHANIC Narrative [facility] - 11/04/2024 2:30 PM PBX MECHANIC Vent Rate: 67 bpm RR Interval: 892 msec AR Interval: 142 msec QRS Duration: 89 msec QT Interval: 413 msec QTC Interval: 428 msec P-R-T Rigby: 25 - 0 - 21 degrees IMPRESSION: SINUS RHYTHM MODERATE VOLTAGE CRITERIA FOR LVH, CONSIDER NORMAL VARIANT ??[MEETS CRITERIA IN ONE OF: R(aVL), S(V1), R(V5), R(V5/V6)+S(V1)] BORDERLINE ECG NO CHANGE FROM PREVIOUS TRACING NOTED Electronically Signed By: Nithin Vaca MD us Job James MD ECG ORDERABLES Final Resul t [facility] * CT Head WO Contrast (11/03/2024 10:53 PM PBX MECHANIC) Anatomical Region Laterality Modality Head and Neck N/A Computed Tomogra phy 11/03/2024 10:5 6 PM PBX MECHANIC Narrative 11/03/2024 10:58 PM PBX MECHANIC EXAM DESCRIPTION: CT HEAD WO CONTRAST REASON [...] PM T: ??11/03/2024 10:58 PM Report ID: [id number] Reading Location: ??[id number] Procedure Note Mike Kirk MD - 11/03/2024 [...] Mike Kirk M.D. AT: AT Report ID: [id number] Reading Location: [id number] Job James MD IMG CT PROCEDURES Final Res ult * Magnesium (11/03/2024 10:46 PM PBX MECHANIC) Pathologist [facility] Magnesium 1.8 1.4 - 2.5 mg/dL Blood 11/03/2024 10:4 6 PM PBX MECHANIC 11/03/2024 10:50 PM PBX MECHANIC Job James MD LAB BLOOD ORDERABLES Final Result [facility] [place]) 1 [facility] Department [place] [address] * Thyroid Function [place] (11/03/2024 10:46 PM PBX MECHANIC) [facility] TSH 1.44 0.30 - 4.20 mcIUnit/mL Blood 11/03/2024 10:4 6 PM PBX MECHANIC 11/03/2024 10:50 PM PBX MECHANIC Job James MD LAB BLOOD ORDERABLES Final Result Performing Organization Address [facility] Co de Phone Number ARI SHAH ([place]) [address] [place] [address] * (ABNORMAL) Erythrocyte sedimentation rate (11/03/2024 10:46 PM PBX MECHANIC) [facility] Erythrocyte sedimentation rate 29(H) 1 - 20 mm/hr Blood 11/03/2024 10:4 6 PM PBX MECHANIC 11/03/2024 10:50 PM PBX MECHANIC Job James MD LAB BLOOD ORDERABLES Final Result Performing Organization Address [facility] Co de Phone Number ARI SHAH ([place]) 1 [facility] [place] [address] * Creatine kinase (CK), total (11/03/2024 10:46 PM PBX MECHANIC) [facility] CK 69 30 - 200 Units/L Blood 11/03/2024 10:4 6 PM PBX MECHANIC 11/03/2024 10:50 PM PBX MECHANIC Job James MD LAB BLOOD ORDERABLES Final Result Performing Organization Address [facility] Co de Phone Number ARI SHAH ([place]) 1 [facility] [place] [address] * Pro B-type natriuretic peptide (11/03/2024 10:46 PM PBX MECHANIC) [facility] NT-proBNP 51 <=300 pg/mL Comment: Interpretive Comments: [...] Date: 2018. Blood 11/03/2024 10:4 6 PM PBX MECHANIC 11/03/2024 10:50 PM PBX MECHANIC us Job James MD LAB BLOOD ORDERABLES Edited Result - Final [facility] [place] [employer] [facility] Department [place] [address] * CRP (acute phase) (11/03/2024 10:46 PM PBX MECHANIC) [facility] CRP <3.0 <=10.0 mg/L Blood 11/03/2024 10:4 6 PM PBX MECHANIC 11/03/2024 10:50 PM PBX MECHANIC Job James MD LAB BLOOD ORDERABLES Final Result ARI [facility] ([place]) 1 [facility] [place] [address] * Troponin T high-sensitivity 2-hour (11/03/2024 10:46 PM PBX MECHANIC) [facility] Trop T hs 7 <=14 ng/L Comment: Interpretive Data For further hscTnT resources including the diagnostic algorithm and an aid in interpretation, copy and paste this link: https://nrl.testcatalog.org/show/hsTrop Current Interpretive Data last revised 2020. Trop T hs delta See Comment ng/L CE MAIRA SHAH ([place]) Comment:Inappropriate collec tion time to report a delta. Trop T hs pct delta See Comment % CERJOSE CRUZ SHAH ([place]) Comment:Inappropriate collec tion time to report a delta. Trop T hs interp See Comment C ROSITA SHAH ([place]) Comment:Inappropriate collec tion time to report a delta. Blood 11/03/2024 10:4 6 PM PBX MECHANIC 11/03/2024 10:50 PM PBX MECHANIC Job James MD LAB BLOOD ORDERABLES Final Result ARI ALYSSA ([place]) 1 [facility] [place] [address] * eGFR (11/03/2024 7:40 PM PBX MECHANIC) [facility] eGFR >90 >=60 mL/min/1. 73 m2 [...] last reviewed 2021. Blood 11/03/2024 7:40 PM PBX MECHANIC 11/03/2024 7:42 PM PBX MECHANIC us Job James MD LAB BLOOD ORDERABLES Final Result [facility] ([place]) 1 [facility] Department [place] [address] * Differential, auto (11/03/2024 7:40 PM PBX MECHANIC) Neutrophil abs 4.3 1.5 - 6.5 K/cumm [...] revised on 2018. Blood 11/03/2024 7:40 PM PBX MECHANIC 11/03/2024 7:42 PM PBX MECHANIC us Job James MD LAB BLOOD ORDERABLES Final Result ARI SHAH ([place]) 1 [facility] Department [place] [address] * Troponin T high-sensitivity series (baseline, 2hr, 4hr, 6hr) (11/03/2024 7:40 PM PBX MECHANIC) Trop T hs <6 <=14 ng/L Comment: Interpretive Data For further hscTnT resources including the diagnostic algorithm and an aid in interpretation, copy and paste this link: https://nrl.testcatalog.org/show/hsTrop Current Interpretive Data last revised 2020. Blood 11/03/2024 7:40 PM PBX MECHANIC 11/03/2024 7:42 PM PBX MECHANIC Job James MD LAB BLOOD ORDERABLES Final Result [facility] ([place]) 1 [facility] Department [place] [address] * (ABNORMAL) Comprehensive metabolic panel (11/03/2024 7:40 PM PBX MECHANIC) Pathologist [facility] Sodium 139 135 - 145 mmol/L Potassium, [...] [facility] ([place]) Blood 11/03/2024 7:40 PM PBX MECHANIC 11/03/2024 7:42 PM PBX MECHANIC us Job James MD LAB BLOOD ORDERABLES Final Result [facility] ([place]) 1 [facility] Department [place] [address] * CBC with auto differential (11/03/2024 7:40 PM PBX MECHANIC) WBC 6.8 3.8 - 9.9 K/cumm Hgb [...] ([place]) Blood (Blood, Venous) 11/03/2024 7:40 PM PBX MECHANIC 11/03/2024 7:42 PM PBX MECHANIC us Job James MD LAB BLOOD ORDERABLES Final Result ARI [facility] ([place]) 1 [facility] Department [place] [address] * XR Chest 1 Vw Portable (if patient condition/safety warrant portable) (11/03/2024 7:17 PM PBX MECHANIC) Anatomical Region Laterality Modality Body, Chest N/A Computed Radiogr aphy 11/03/2024 7:23 PM PBX MECHANIC Narrative 11/03/2024 7:24 PM PBX MECHANIC EXAM DESCRIPTION: ?? XR CHEST 1 VIEW [...] PM T: ??11/03/2024 7:24 PM Report ID: [id number] Reading Location: ??[id number] Procedure Note Paco Reyes MD - 11/03/2024 [...] Paco Reyes M.D. RB: KESHA Report ID: [id number] Reading Location: [place] [address] Job James MD IMG XR PROCEDURES Final Res ult * ECG 12 lead (11/03/2024 6:34 PM PBX MECHANIC) 11/03/2024 6:34 PM PBX MECHANIC Narrative [facility] - 11/04/2024 2:30 PM PBX MECHANIC Vent Rate: 89 bpm RR Interval: 668 msec AR Interval: 116 msec QRS Duration: 88 msec QT Interval: 356 msec QTC Interval: 403 msec P-R-T Rigby: 19 - 18 - 2 degrees IMPRESSION: SINUS RHYTHM WITH SHORT AR INTERVAL LOW QRS VOLTAGE IN PRECORDIAL LEADS ??[QRS DEFLECTION < 1.0 mV IN CHEST LEADS] POSSIBLE ANTERIOR MYOCARDIAL INFARCTION , OF INDETERMINATE AGE [30 ms Q WAVE IN V3/V4, OR R < 0.2 mV IN V4] ABNORMAL ECG Compared to prior EKG, heart rate has increased Electronically Signed By: Nithin Vaca MD Job James MD ECG ORDERABLES Final Resul t [facility] documented in this encounter Visit Diagnoses Diagnosis Sleep disturbance- Primary Unspecified sleep disturbance Chronic abdominal pain Abdominal pain, unspecified site documented in this encounter Administered Medications Inactive Administered Medications - up to 3 most recent administrations Medication Order MAR Action Action Date Dose Rate Site sodium chloride 0.9% bolus 1,000 mL 1,000 mL, intravenous, Once, On Wed11/03/24 at 2231, For 1 dose New Bag 11/03/2024 10:57 PM PBX MECHANIC 1,000 mL documented in this encounter Active and Recently Administered Medications Times are shown in PBX MECHANIC. Scheduled Medication Order 11/02/2024 11/03/2024 11/04/2024 aspirin chewable tablet 324 mg 324 mg, oral, Once, On Wed11/03/24 at 1832, For 1 dose, Indications: Chest Pain 183 (Due) sodium chloride 0.9% bolus 1,000 mL (COMPLETED) 1,000 mL, intravenous, Once, On Wed11/03/24 at 2231, For 1 dose 2257 (New Bag - Provider: Luis Fernando Teresa, RN)2340 (Stopped - Provider: Jordyn Teresa, RN) documented in this encounter Orders Medications Ordered That Gerardo ht Not Have Been Administered Count Last Ordered Date First Ordered Date aspirin chewable tablet 324 mg 1 11/03/2024 EKG Orders Without Results Count Last Ordered D ate First Ordered Date ECG 12-LEAD 1 11/03/2024 Nursing Count Last Ordered Date First Orde red Date CONTINUOUS PULSE OXIMETRY 1 11/03/2024 MISCELLANEOUS NURSING CARE ORDER (SPECIFY) 1 11/03/2024 IV Count Last Ordered Date First Orde red Date SALINE LOCK IV 1 11/03/2024 documented in this encounter Care Teams Disc Pad Grinding Machine Feeder Relationship Specialty Start Date End Date Trenton Lomeli MD PCP - General Family Medicine 10/06/21 Neelima Velazquez MD [address] [facility] [address] [place] [address] Consulting Physician Gynecology 10/06/21 Maura Wilson MD [address] [place] [address] Consulting Physician Cardiology 06/16/23 documented as of this encounter
--- OUTSIDE RECORDS SUMMARY | 2024-11-11 20:37 | XMS_ITS | Encounter Summary ---
Author Organization [facility] Address [address] [place] [address] Phone Care Team Providers Care Heater Engineer Helper Name Role Phone Trenton Lomeli MD Primary Care Provider [phone] Neelima Velazquez MD Unavailable [phone] Encounter Details Date Type Department Care Team (Late st Contact Info) Description 01/29/2023 Telephone [facility] Cardiology [address] [facility] Advanced Medicine [address]th [place] [address] [place] [address] Maura Wilson MD [address] [facility] [address] [place], [place] [id number] Social History Tobacco Use Types Packs/Day Years [...] on file Legal Sex Female 4:15 AM SOUND EFFECTS TECHNICIAN Gender Identity Not on file Sexual Orientation Not on file 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
--- OUTSIDE RECORDS SUMMARY | 2024-11-11 20:37 | XMS_ITS | Encounter Summary ---
Author Organization [facility] Healthcare Address [address] [place] [address] Care Team Providers Care Supervisor Carton And Can Supply Name Role Phone Trenton Lomeli MD Primary Care Provider [phone] Neelima Velazquez MD Unavailable [phone] Maura Wilson MD Unavailable [phone] Reason for Visit * Reason Onset Date Comments Abdominal Pain 10/30/2024 Encounter Details Date Type Department Care Team (Late st Contact Info) Description 10/30/2024 Nurse Triage [facility] Primary Care at [address] [address] Trenton Lomeli MD [address] [place] [address] [address] [place] [address] Social History Tobacco Use Types [...] file Legal Sex Female 4:15 AM MANAGER OF 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 No answer let VM to call back, GER OF SELECTION AND ASSESSMENT * Telephone Encounter - Itzel Harding RN - 10/30/2024 2:38 PM CST Reason for Disposition Message left on unidentified voice mail. Phone number verified. Protocols used: No Contact or Duplicate Contact [id number] Attempted to reach patient calling with 3 week history of abdominal pain. Message left for patient to call office at earliest convenience. Call with be closed by cleaner touch up worker. FYI- patient calling with abdominal pain for 3 weeks and 10 pound weight loss. Unable to reach. Patient wanting to be seen in the office. GER OF SELECTION AND ASSESSMENT * Telephone Encounter - Itzel Harding RN - 10/30/2024 2:12 PM CST Regarding: Abdominal Pain, mild ----- Message from Tram Joseph sent at 10/30/2024 10:20 AM MANAGER OF SELECTION AND ASSESSMENT ----- Symptom Based Call Chief Complaint(s): Abdominal [...] pounds past 3 weeks. Patient was seen [facility] emergency room on 10/26/24 and 10/28/24 [...] message need to be routed? Yes-Action Needed GER OF SELECTION AND ASSESSMENT documented in this encounter Plan of Treatment Not on file documented as of this encounter Visit Diagnoses Not on filedocumented in this encounter Care Teams Supervisor Carton And Can Supply Relationship Specialty Start Date End Date Trenton Lomeli MD PCP - General Family Medicine 10/06/21 Neelima Velazquez MD [address] [facility] [address] [place] [address] Consulting Physician Gynecology 10/06/21 Maura Wilson MD [address] [place] [address] Consulting Physician Cardiology 06/16/23 documented as of this encounter
--- OUTSIDE RECORDS SUMMARY | 2024-11-11 20:37 | XMS_ITS | Encounter Summary ---
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
--- OUTSIDE RECORDS SUMMARY | 2024-11-11 20:38 | XMS_ITS | Encounter Summary ---
Author Organization [facility] Healthcare Address [address] [place] [address] Care Team Providers Care Credit Analyst Name Role Phone Sergo Mackey MD Primary Care Provider [phone] Encounter Details Date Type Department Care Team (Late st Contact Info) Description 08/05/2017 8:19 PM CDT - 08/06/2017 11:31 AM CDT Emergency [facility] Emergency Department [address] [place] [address] Unknown, Notinfile Discharge Disposition: Discharge to home or self care Social History Tobacco Use Types Packs/Day Years Used Date Smoking Tobacco: Never Alcohol Use Standard Drinks/Week Comments No 0 (1 standard drink = 0.6 oz pur e alcohol) Comments Unknown Sex and Gender Information Value Date Recorded Sex Assigned at Not on file Legal 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 ??J Am Sully Cardiol 2012;60:1581-98). Current interpretive data was last revised on 13. Blood specimen (specimen) 08/06/2017 6:00 AM CDT 08/06/2017 6:18 AM CDT Love Ramirez SILK SCREEN FRAME ASSEMBLER LAB BLOOD ORDERABLES Final Result [facility] Department [place] [address] * XR Chest Pa Lateral 2 Views (08/06/2017 5:53 AM CDT) Anatomical Region Laterality Modality Body, Chest N/A Radiographic Fiona ging 08/06/2017 5:53 AM CDT Narrative 08/06/2017 5:53 AM CDT Tory GANNON M.D. FINAL REPORT The radiology attending physician has personally reviewed this study, and has reviewed and/or edited this written report and agrees with it. ACC# ??Date Time ??Exam [id number] Aug 06, 2017 00:53:00 [id number] Chest 2 views Frontl ??and ??Lat EXAMINATION: [...] ELOISA LOPEZ M.D. on Aug ??2016 ??8:15A [id number] GANNON M.D. FINAL REPORT The radiology attending physician has personally reviewed this study, and has reviewed and/or edited this written report and agrees with it. Attending: ??UNKNOWN, ??NOTINFILE Requesting: ??JAMES, ??LOVE Requesting Fax: ?? Attending Fax: ?? Attending ID: ??[id number] Requesting ID: ??[id number] Report To 1 ID: ??[id number] ? Report To 1 Name: ??, ?? Report To 1 FAX: ?? NextGen Order #: ?? Procedure Note Miscellaneous, Not In File / Provider, MD Misael - 08/06/2017 ELOISA LOPEZ M.D. CARMELITA SHEPARD M.D. FINAL REPORT The radiology attending physician has personally reviewed this study, and has reviewed and/or edited this written report and agrees with it. ACC# Date Time Exam [id number] Aug 06, 2017 00:53:00 [id number] Chest 2 views Frontl and Lat EXAMINATION: [...] LOPEZ M.D. on Aug 06 2017 8:15A [id number] GANNON M.D. FINAL REPORT The radiology attending physician has personally reviewed this study, and has reviewed and/or edited this written report and agrees with it. Attending: UNKNOWN, NOTINFILE Requesting: LOVE RAMIREZ Requesting Fax: Attending Fax: Attending ID: [id number] Requesting ID: [id number] Report To 1 ID: [id number] Report To 1 Name: , Report To 1 FAX: NextGen Order #: us Love Ramirez SILK SCREEN FRAME ASSEMBLER IMG XR PROCEDURES Final Res ult * Stool culture (08/06/2017 12:44 AM CDT) Direct Specimen Exam Shiga Toxin Testing: Antigen detection assay for Shiga-toxin NEGATIVE for Shiga Toxin 1 and Shiga Toxin 2. [facility] Report Final Report: No growth of enteric bacterial pathogens [facility] Stool (Rectum) 08/06/2017 12 :44 AM CDT 08/06/2017 1:50 AM CDT Narrative [facility] - 08/07/2017 9:47 AM CDT Routine stool cultures include procedures to detect Salmonella, Shigella, Edwardsiella, Aeromonas, Pleisiomonas, Campylobacter, Yersinia, E. coli O157, and Shiga-like toxins. ?? Vibrio is cultured only upon special request. ??If Vibrio is suspected, please call the laboratory at [phone]. Interpretive data was last updated March 08, 2017. Love Ramirez NP LAB MICROBIOLOGY - GENERAL ORDERABLES Final Result Performing Organization Address City/[facility] Co de Phone Number [facility] [place] [address] * Ova and parasite screen (08/06/2017 12:44 AM CDT) Report Final Report: Negative [facility] Stool (Rectum) 08/06/2017 12 :44 AM CDT 08/06/2017 1:50 AM CDT Narrative [facility] - 08/06/2017 1:50 AM CDT This test is an Immunoassay which screens for Cryptosporidium and Giardia only. ??Please request Microscopic OP Exam if comprehensive examination for ova and parasites is required. ?? Current interpretive data was last revised on 04. Love Ramirez NP LAB MICROBIOLOGY - GENERAL ORDERABLES Final Result Performing Organization Address City/[facility]/ZIP Co de Phone Number [facility] [place] [address] * Troponin I (08/06/2017 12:44 AM CDT) Troponin I <0.03 0.00 - 0.03 ng/mL [facility] Comment: Interpretive Data Serial determinations are recommended for the diagnosis of myocardial infarction (Third Lee Definition of Myocardial Infarction. ??J Am Sully Cardiol 2012;60:1581-98). Current interpretive data was last revised on 13. Blood specimen (specimen) 08/06/2017 12:44 AM CDT 08/06/2017 12:50 AM CDT us Love Ramirez SILK SCREEN FRAME ASSEMBLER LAB BLOOD ORDERABLES Final Result Performing Organization Address City/[facility] Co de Phone Number [facility] [place] [place] [address] * VRE culture, surveillance (08/06/2017 12:37 AM CDT) Report Final Report: Negative [facility] Stool 08/06/2017 12:3 7 AM CDT 08/07/2017 12:11 AM CDT Narrative [facility] - 08/08/2017 9:02 AM CDT us Notinfile Unknown LAB MICROBIOLOGY - GENERAL ORD ERABLES Final Result Performing Organization Address [facility] Co de Phone Number [facility] [place] [address] * Clostridium difficile assay (08/06/2017 12:37 AM CDT) Report Final Report: Negative for: Clostridium difficile toxin. [facility] Stool 08/06/2017 12:3 7 AM CDT 08/06/2017 1:51 AM CDT Narrative [facility] - 08/06/2017 1:52 AM CDT us Notinfile Unknown LAB MICROBIOLOGY - GENERAL ORD ERABLES Final Result Performing Organization Address City/[facility] Co de Phone Number [facility] [place] [address] * DISCHARGE LABORATORY CUMULATIVE REPORT (08/06/2017 12:00 AM CDT) Narrative 08/06/2017 12:00 AM CDT Ordered by an unspecified provider. Historical Provider MD LAB BLOOD ORDERABLES Diann l Result * Differential, auto (08/05/2017 10:08 PM CDT) Neutrophil pct 67.7 % [facility] Imm gran pct 0.3 % [facility] Lymphocyte pct 23.4 % [facility] Monocyte pct 6.1 % [facility] Eosinophil pct 2.0 % [facility] Basophil pct 0.5 % [facility] Neutrophil abs 5.86 1.70 - 6.50 K/cumm [facility] Imm gran abs 0.03 0.00 - 0.10 K/cumm [facility] Lymphocyte abs 2.03 0.80 - 3.30 K/cumm [facility] Monocyte abs 0.53 0.20 - 0.80 K/cumm [facility] Eosinophil abs 0.17 0.00 - 0.50 K/cumm [facility] Basophil abs 0.04 0.00 - 0.10 K/cumm [facility] Blood specimen (specimen) 08/05/2017 10:08 PM CDT 08/05/2017 10:29 PM CDT Love Ramirez NP LAB BLOOD ORDERABLES Final Result [facility] Department [place] [address] * CBC with auto differential (08/05/2017 10:08 PM CDT) WBC 8.66 3.80 - 9.90 K/cumm [facility] RBC 4.56 3.90 - 5.20 M/cumm [facility] Hgb 12.9 11.9 - 15.5 g/dL [facility] Hct 39.5 35.6 - 45.5 % [facility] MCV 86.6 81.3 - 96.4 fL [facility] MCH 28.3 27.1 - 33.3 pg [facility] MCHC 32.7 32.3 - 35.7 g/dL [facility] RDW CV 12.5 11.1 - 14.9 % [facility] RDW SD 39.5 35.7 - 48.1 fL [facility] Plt 311 150 - 400 K/cumm [facility] MPV 9.1 9.1 - 12.3 fL [facility] NRBC 0.0 0.0 - 0.2 % [facility] NRBC abs 0.00 0.00 - 0.01 K/cumm [facility] Blood specimen (specimen) 08/05/2017 10:08 PM CDT 08/05/2017 10:29 PM CDT us Love Ramirez NP LAB BLOOD ORDERABLES Final Result Performing Organization Address [facility] de Phone Number [facility] Department [place] [address] * Basic metabolic panel (08/05/2017 9:37 PM CDT) [facility] Sodium 141 135 - 145 mmol/L [facility] Potassium, pl 3.9 3.3 - 4.9 mmol/L [facility] Chloride 104 97 - 110 mmol/L [facility] CO2 25 22 - 32 mmol/L [facility] BUN 8 8 - 25 mg/dL [facility] Glucose 99 70 - 199 mg/dL [facility] Creatinine 0.70 0.60 - 1.10 mg/dL [facility] Calcium 9.6 8.5 - 10.3 mg/dL [facility] Anion gap 12 2 - 15 mmol/L [facility] Blood specimen (specimen) 08/05/2017 9:37 PM CDT 08/05/2017 9:42 PM CDT us Jerson Hernandez MD LAB BLOOD ORDERABLES Diann l Result Performing Organization Address [facility] Co de Phone Number [facility] [place] [address] documented in this encounter Visit Diagnoses Not on filedocumented in this encounter Care Teams Credit Analyst Relationship Specialty Start Date End Date Sergo Mackey MD [address] [place] [address] PCP - General 08/05/17 10/05/21 documented as of this encounter
--- OUTSIDE RECORDS SUMMARY | 2024-11-11 20:38 | XMS_ITS | Encounter Summary ---
Author Organization [facility] Address [address] [address] Care Team Providers Care Letter Carrier Name Role Phone Trenton Lomeli MD Primary Care Provider [phone] Neelima Velazquez MD Unavailable [phone] Reason for Visit * Reason Onset Date Comments Medical Question/Miscellaneous 08/11/2022 Encounter Details Date Type Department Care Team (Late st Contact Info) Description 08/11/2022 Telephone [facility] Primary Care at [address] [address] Trenton Lomeli MD [address] [place] [address] [address] [place] [address] Medical Question/Miscellaneous Social History Tobacco [...] on file Legal 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 Low amount of interactions of risks, [...] sore throat congestion Caller???s Call back #: [phone] Does message need to be routed?Yes-Action Needed documented in this encounter Plan of Treatment Not on file documented as of this encounter Visit Diagnoses Diagnosis COVID-19- Primary documented in this encounter Care Teams Letter Carrier Relationship Specialty Start Date End Date Trenton Lomeli MD PCP - General Family Medicine 10/06/21 Neelima Velazquez MD [address] [address] Consulting Physician Gynecology 10/06/21 documented as of this encounter
--- OUTSIDE RECORDS SUMMARY | 2024-11-11 20:38 | XMS_ITS | Encounter Summary ---
Author Organization [facility] Address [address] [address] Care Team Providers Care Civil Preparedness Officer Name Role Phone Trenton Lomeli MD Primary Care Provider [phone] Neelima Velazquez MD Unavailable [phone] Reason for Visit * Reason Comments Annual Exam physical Encounter Details Date Type Department Care Team (Late st Contact Info) Description 11/09/2022 3:[address] ENGINEER FREIGHT Office Visit [facility] Primary Care at [address] [address] Trenton Lomeli MD [address] [place] [address] [address] [place] [address] Well adult exam (Primary Dx); [...] on file Legal Sex Female 4:[address] ENGINEER FREIGHT Gender Identity Not on file Sexual Orientation Not on file 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 Not on file Not on file documented as of this encounter Last Filed Vital Signs Vital Sign Reading Time Taken Comments Blood Pressure 136/84 11/09/2022 3:[address] ENGINEER FREIGHT Pulse 111 11/09/2022 3:[address] ENGINEER FREIGHT Temperature 36.6 ??C (97.8 ??F) 11/09/2022 3:44 PM CS T Respiratory Rate 16 11/09/2022 3:[address] ENGINEER FREIGHT Oxygen Saturation 98% 11/09/2022 3:[address] ENGINEER FREIGHT Inhaled Oxygen Concentration - - Weight 133.4 kg (294 lb) 11/09/2022 3:[address] ENGINEER FREIGHT Height 171.5 cm (5' 7.5 ) 11/09/2022 3:[address] ENGINEER FREIGHT Body Mass Index 45.37 11/09/2022 3:[address] ENGINEER FREIGHT documented in this encounter Patient Instructions * Patient Instructions* Trenton Lomeli MD - 11/09/2022 3:[address] ENGINEER FREIGHT Thanks for coming in today! My medical assistants and I are thankful you have trusted us with your care, and hope that you received EXCELLENT care today! Please do not hesitate to call if you have any questions or concerns at [phone]. You may receive a phone call, text, MYCHART message, or e-mail asking about your care today. We would love to hear your feedback on how EXCELLENT your care wastoday! Wishing you better health, always. Dr. Lomeli ENGINEER FREIGHT * Attachments The following attachments cannot be sent through Care Everywhere. * DASH Eating Plan (General Information) (Prydeinig) documented in this encounter Progress Notes * [...] or bloody stools. No urinary tract symptoms. ELECTRICAL SIGN WIRER ROS: normal menses, no abnormal bleeding, pelvic [...] WISDOM TOOTH EXTRACTION Oral Surgery Tooth Extraction [place] Tooth - (Added by TW Conv) Family [...] Cardiology; Future Need for vaccination Comments: deferred ENGINEER FREIGHT documented in this encounter Miscellaneous Notes * Assessment & Plan Note - Trenton Lomeli MD - 11/09/2022 4:[address] ENGINEER FREIGHT Associated Problem(s): Morbid (severe) obesity due to excess calories (HCC) BMI Follow-up includes: nutrition counseling, exercise counseling and education provided. ENGINEER FREIGHT * Assessment & Plan Note - Trenton Lomeli MD - 11/09/2022 4:[address] ENGINEER FREIGHT Associated Problem(s): Well adult exam A(n) yearly [...] tests per orders return annually or prn ENGINEER FREIGHT ENGINEER FREIGHT documented in this encounter Plan of Treatment Not on file documented as of this encounter Results * (ABNORMAL) Lipid panel (11/09/2022 4:[address] ENGINEER FREIGHT) Cholesterol 235(H) 30 - 199 mg/dL ARI [...] 6 [facility] Blood 11/09/2022 4:[address] ENGINEER FREIGHT 11/09/2022 7:[address] ENGINEER FREIGHT us Trenton Lomeli MD LAB BLOOD ORDERABLES Final Result [facility] [address] [facility] Department [place] [address] documented in this encounter Visit Diagnoses Diagnosis [...] disease documented in this encounter Care Teams Civil Preparedness Officer Relationship Specialty Start Date End Date Trenton Lomeli MD PCP - General Family Medicine 10/06/21 Neelima Velazquez MD [address] [address] Consulting Physician Gynecology 10/06/21 documented as of this encounter
--- OUTSIDE RECORDS SUMMARY | 2024-11-11 20:38 | XMS_ITS | Encounter Summary ---
Author Organization [facility] Healthcare Address [address] [place] [address] Care Team Providers Care Advertising Designer Name Role Phone Sergo Mackey MD Primary Care Provider [phone] Encounter Details Date Type Department Care Team (Late st Contact Info) Description 08/07/2017 7:34 PM CDT - 08/08/2017 2:24 AM CDT Emergency [facility] Emergency Department [address] [place] [address] 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
--- OUTSIDE RECORDS SUMMARY | 2024-11-11 20:38 | XMS_ITS | Encounter Summary ---
Author Organization [facility] Address [address] [address] Care Team Providers Care Diamond Sizer And Grader Name Role Phone Trenton Lomeli MD Primary Care Provider [phone] Neelima Velazquez MD Unavailable [phone] Encounter Details Date Type Department Care Team (Late st Contact Info) Description 11/09/2022 5:45 PM REPAIR ELECTRIC 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 Lab [facility] Outpatient Lab at [address] [address] Essential hypertension Social History Tobacco [...] on file Legal Sex Female 4:15 AM REPAIR ELECTRIC 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 Gender Identity Not on file Sexual Orientation Not on file 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
--- OUTSIDE RECORDS SUMMARY | 2024-11-11 20:38 | XMS_ITS | Encounter Summary ---
Author Organization [facility] Address [address] [address] Care Team Providers Care Outsole Caser Name Role Phone Trenton Lomeli MD Primary Care Provider [phone] Neelima Velazquez MD Unavailable [phone] Reason for Visit * Reason Comments URI Home tests negative, tickle. 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 The following is recommended [...] sent through Care Everywhere. * Strep Throat (Fire Protection Engineering Technician) (Arabic) documented in this encounter Ordered Prescriptions Prescription [...] tenderness or frontal sinus tenderness. Mouth/Throat: Lips: [place]. Mouth: Mucous membranes are moist. Pharynx: Uvula [...] The rapid strep test performed at the [facility] today was POSITIVE. The following is recommended [...] return to work Patient Education Strep Throat PROTECTION OFFICER: Strep throat is a throat infection caused [...] ask them during your visits. ?? 2017 [employer] Information is for End User's use only and may not be sold, redistributed or otherwise used for commercial purposes. All illustrations and images included in CareNotes?? are the copyrighted property of [employer]. or [employer]. The above information is an educational specialist only. It is not intended as medical [...] rapid strep A (03/31/2022 4:03 PM CDT) [facility] Rapid Strep A, POC Positive Swab 03/31/2022 4:03 PM CDT Gayla Sykes NP POINT OF CARE TEST ORDERABLES Final Result * POC Influenza A/B, COVID-19 antigen (03/31/2022 4:02 PM CDT) Pathologist [facility] Influenza A Ag, POC Negative [facility] Influenza B Ag, POC Negative [facility] COVID-19 Ag POC Presumptive Negative Presumptive Negative, Invalid [facility] Nasal 03/31/2022 4:02 PM CDT us Saman Dinero NP POINT OF CARE TEST ORDERABLES F inal Result [facility] [address] [place] [address], [facility] documented in this encounter Visit Diagnoses Diagnosis Strep throat- Primary Streptococcal sore throat documented in this encounter Additional Health Concerns Infection Onset Date Last Indicated Resolved Time COVID: Suspected 03/31/2022 03/31/2022 03/31/2022 4:04 PM CDT documented as of this encounter Care Teams Outsole Caser Relationship Specialty Start Date End Date Trenton Lomeli MD PCP - General Family Medicine 10/06/21 Neelima Velazquez MD [address] [place] [address] Consulting Physician Gynecology 10/06/21 documented as of this encounter
--- OUTSIDE RECORDS SUMMARY | 2024-11-11 20:38 | XMS_ITS | Encounter Summary ---
Author Organization [facility] Address [address] [address] Care Team Providers Care Cook Cashier Food Prep Name Role Phone Trenton Lomeli MD Primary Care Provider [phone] Neelima Velazquez MD Unavailable [phone] Reason for Visit * Reason Comments URI Seen on 10/03/22 give n amox, symptoms no better- Yellow snot, congestion, fever (99-100). 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 Not on file Not on file Not on file documented as of this encounter Last Filed Vital Signs Vital Sign Reading Time Taken Comments Blood Pressure 142/85 10/22/2022 2:23 PM COMMISSARY CLERK Pulse 90 10/22/2022 2:53 PM COMMISSARY CLERK Temperature 37.1 ??C (98.8 ??F) 10/22/2022 2:23 PM CS T Respiratory Rate 18 10/22/2022 2:23 PM COMMISSARY CLERK Oxygen Saturation 100% 10/22/2022 2:23 PM COMMISSARY CLERK Inhaled Oxygen Concentration - - Weight 133.4 kg (294 lb) 10/22/2022 2:23 PM COMMISSARY CLERK Height 171.5 cm (5' 7.5 ) 10/22/2022 2:23 PM COMMISSARY CLERK Body Mass Index 45.37 10/22/2022 2:23 PM COMMISSARY CLERK documented in this encounter Ordered Prescriptions Prescription [...] and frontal sinus tenderness present. Mouth/Throat: Lips: [place]. Mouth: Mucous membranes are moist. Tongue: Tongue [...] WISDOM TOOTH EXTRACTION Oral Surgery Tooth Extraction Keymar Tooth - (Added by TW Conv) Assessment/Plan [...] ask questions, questions answered. Saman Dinero NP ISSARY CLERK documented in this encounter Plan of Treatment Not on file documented as of this encounter Results * Influenza A/B, RSV, and COVID-19 PCR Nasopharyngeal (10/22/2022 2:31 PM COMMISSARY CLERK) Pathologist [facility] COVID-19 RNA Negative Negative [facility] Influenza A RNA Negative Negative [facility] Influenza B RNA Negative Negative [facility] RSV RNA Negative Negative [facility] Comment: Interpretive data: This test is performed using the [employer]nofrog Xpert Xpress CoV-2/Flu/RSV plus assay. This is [...] revised 2021. Nasopharyngeal 10/22/2022 2: 31 PM COMMISSARY CLERK 10/22/2022 4:25 PM COMMISSARY CLERK Narrative [facility] - 10/22/2022 5:31 PM COMMISSARY CLERK Is the Patient experiencing symptoms consistent with COVID?->Yes Date of Symptom Onset->10/01/22 Reason for testing?->Symptomatic Known exposure to confirmed or suspected COVID-19 case?->No Is the patient experiencing any symptoms consistent with COVID (eg. Fever, cough, shortness of breath)?->Yes What is the reason for testing?->Symptoms of COVID-19 in low-risk group (Batched) Saman Dinero NP LAB MICROBIOLOGY - [facility] Final Result [facility] [address] Department [place] [address] [place] [address] documented in this encounter Visit Diagnoses Diagnosis Acute recurrent maxillary sinusitis- Primary Acute recurrent maxillary sinusitis documented in this encounter Additional Health Concerns Infection Onset Date Last Indicated Resolved Time COVID: Suspected 10/22/2022 10/22/2022 10/22/2022 5:32 PM COMMISSARY CLERK documented as of this encounter Care Teams Cook Cashier Food Prep Relationship Specialty Start Date End Date Trenton Lomeli MD PCP - General Family Medicine 10/06/21 Neelima Velazquez MD [address] [address] Consulting Physician Gynecology 10/06/21 documented as of this encounter
--- OUTSIDE RECORDS SUMMARY | 2024-11-11 20:38 | XMS_ITS | Encounter Summary ---
Author Organization [facility] Address [address] [address] Care Team Providers Care Financial Reporting Director Name Role Phone Trenton Lomeli MD Primary Care Provider [phone] Neelima Velazquez MD Unavailable [phone] Reason for Visit * Reason Onset Date Comments Call Back 11/13/2022 Encounter Details Date Type Department Care Team (Late st Contact Info) Description 11/13/2022 Telephone [facility] Primary Care at [address] [address] Trenton Lomeli MD [address] [place] [address] [address] [place] [address] Call Back Social History Tobacco [...] on file Legal Sex Female 4:15 AM DAY TREATMENT CLINICIAN/ART THERAPIST Gender Identity Not on file Sexual Orientation Not on file 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 Caller???s Call back #: [phone] Does message need to be routed? Yes-Action Needed TREATMENT CLINICIAN/ART THERAPIST documented in this encounter Plan of Treatment Not on file documented as of this encounter Visit Diagnoses Not on filedocumented in this encounter Care Teams Financial Reporting Director Relationship Specialty Start Date End Date Trenton Lomeli MD PCP - General Family Medicine 10/06/21 Neelima Velazquez MD [address] [address] Consulting Physician Gynecology 10/06/21 documented as of this encounter
--- OUTSIDE RECORDS SUMMARY | 2024-11-11 20:38 | XMS_ITS | Encounter Summary ---
Author Organization [facility] Address [address] [address] Care Team Providers Care Live Truck Operator Name Role Phone Trenton Lomeli MD Primary Care Provider [phone] Neelima Velazquez MD Unavailable [phone] Encounter Details Date Type Department Care Team (Late st Contact Info) Description 10/06/2021 2:45 PM ELEMENTARY SCHOOL BAND DIRECTOR Lab [facility] Outpatient Lab at [address] [address] Encounter for medical examination to [...] on file Legal Sex Female 4:15 AM ELEMENTARY SCHOOL BAND DIRECTOR Gender Identity Not on file Sexual Orientation Not on file 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 Not on file Not on file Not on file documented as of this encounter Plan of Treatment Not on file documented as of this encounter Visit Diagnoses Diagnosis Encounter for medical examination to establish care ACE (nonalcoholic steatohepatitis) Other chronic nonalcoholic liver disease Essential hypertension Unspecified essential hypertension documented in this encounter Care Teams Live Truck Operator Relationship Specialty Start Date End Date Trenton Lomeli MD PCP - General Family Medicine 10/06/21 Neelima Velazquez MD [address] [address] Consulting Physician Gynecology 10/06/21 documented as of this encounter
--- OUTSIDE RECORDS SUMMARY | 2024-11-11 20:38 | XMS_ITS | Encounter Summary ---
Author Organization [facility] Address [address] [place] [address] Care Team Providers Care It Application Support Analyst Name Role Phone Trenton Lomeli MD Primary Care Provider [phone] Neelima Velazquez MD Unavailable [phone] Encounter Details Date Type Department Care Team (Latest Contact Info) Description 10/22/2022 2:31 PM STOCK PREPARER - 10/22/2022 11:59 PM STOCK PREPARER Hospital Encounter [facility] [id number] [place], [place] [id number] Acute recurrent maxillary sinusitis Discharge Disposition: Discharge [...] on file Legal Sex Female 4:15 AM STOCK PREPARER Gender Identity Not on file Sexual Orientation Not on file 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 Not on file Not on file documented as of this encounter Medications at Time of Discharge doxycycline (VIBRAMYCIN) 100 mg capsuleIndication s:Acute recurrent maxillary sinusitis Take 1 tablet/capsul e (100 mg total) by mouth 2 (two) times a day for 7 days 14 tablet/capsule 10/22/2022 10/29/2022 BIOTIN ORAL Take by mouth 11/10/2024 cannabidiol, CBD, (EPIDIOLEX) 100 mg/mL solution Take 5 mg/kg by mouth nightly as needed 11/10/2024 hydrOXYzine (ATARAX) 50 mg tablet Take 1 tablet (50 mg total) by mouth every 6 (six) hours as needed 07/31/2022 11/10/2024 Lactobacillus acidophilus (PROBIOTIC ORAL) Take by mouth 06/16 multivitamin capsule Take 1 capsule by mouth daily 11/10/2024 documented as of this encounter Discharge Disposition Disposition Code Departure Means Destination Discharge to home or self care documented in this encounter Miscellaneous Notes * Result Encounter Note - Gayla Sykes NP - 10/22/2022 11:59 PM STOCK PREPARER Please notify patient of negative COVID-19/RSV/FLU test. Patient should rest, stay hydrated, and take OTC medications as needed. Monitor symptoms and if they worsen follow up with primary care doctoror ER if needed. K PREPARER documented in this encounter Plan of Treatment Not on file documented as of this encounter Procedures Procedure Name Priority Date/Time Associated Diagnosis Comments INFLUENZA A/B, RSV, AND COVID-19 PCR Routine 10/22/2022 2:31 PM STOCK PREPARER Acute recurrent maxillary sinusitis documented in this encounter Results * Influenza A/B, RSV, and COVID-19 PCR Nasopharyngeal (10/22/2022 2:31 PM STOCK PREPARER) COVID-19 RNA Negative Negative [facility] Influenza A RNA Negative Negative [facility] Influenza B RNA Negative Negative [facility] RSV RNA Negative Negative [facility] Comment: Interpretive data: This test is performed using the [employer] Xpert Xpress CoV-2/Flu/RSV plus assay. This is [...] revised 2021. Nasopharyngeal 10/22/2022 2: 31 PM STOCK PREPARER 10/22/2022 4:25 PM STOCK PREPARER Narrative [facility] - 10/22/2022 5:31 PM STOCK PREPARER Is the Patient experiencing symptoms consistent with COVID?->Yes Date of Symptom Onset->10/01/22 Reason for testing?->Symptomatic Known exposure to confirmed or suspected COVID-19 case?->No Is the patient experiencing any symptoms consistent with COVID (eg. Fever, cough, shortness of breath)?->Yes What is the reason for testing?->Symptoms of COVID-19 in low-risk group (Batched) Saman Dinero NP LAB MICROBIOLOGY - [facility] Final Result Performing Organization Address City/State/[facility] [place] Phone Number [facility] [address] [address] Department [place] [address] documented in this encounter Visit Diagnoses Diagnosis Acute recurrent maxillary sinusitis documented in this encounter Additional Health Concerns Infection Onset Date Last Indicated Resolved Time COVID: Suspected 10/22/2022 10/22/2022 10/22/2022 5:32 PM STOCK PREPARER documented as of this encounter Care Teams It Application Support Analyst Relationship Specialty Start Date End Date Trenton Lomeli MD PCP - General Family Medicine 10/06/21 Neelima Velazquez MD [address] [address] Consulting Physician Gynecology 10/06/21 documented as of this encounter
--- OUTSIDE RECORDS SUMMARY | 2024-11-11 20:38 | XMS_ITS | Encounter Summary ---
Author Organization [facility] Healthcare Address [address] [place] [address] Care Team Providers Care Speech And Hearing Clinic Director Name Role Phone Referring, Unknown MD Primary Care Provider Unav ailable Encounter Details Date Type Department Care Team (Late st Contact Info) Description 06/04/2017 1:06 PM CDT - 06/05/2017 1:59 AM CDT Emergency [facility] Emergency Department [address] [place] [address] Unknown, Notinfile Discharge Disposition: Discharge to home or self care Social History Tobacco Use Types Packs/Day Years Used Date Smoking Tobacco: Never Alcohol Use Standard Drinks/Week Comments No 0 (1 standard drink = 0.6 oz pur e alcohol) Comments Unknown Sex and Gender Information Value Date Recorded Sex Assigned at Not on file Legal Sex Female 4:15 AM VENEER JOINTER HELPER Gender Identity Not on file Sexual Orientation [...] 7:38 PM CDT) HCG, ur, POC Negative [facility] Urine 06/04/2017 7:38 PM CDT 06/05/2017 7:14 AM CDT Rose Marie Rutledge MD LAB BLOOD ORDERABLES Final Re sult [facility] Department [place] [address] * Urinalysis reflex to microscopic (06/04/2017 6:43 PM CDT) Color, ur Yellow Yellow [facility] Clarity, ur Clear Clear [facility] Specific gravity, ur 1.030 1.003 - 1.030 [facility] pH, ur 5.0 5.0 - 8.0 [facility] Albumin, ur Negative Trace [facility] Glucose, ur ql Negative Negative [facility] Ketones, ur Negative Negative [facility] Bilirubin, ur Negative Negative [facility] Blood, ur Negative Negative [facility] Urobilinogen, ur <2.0 <2.0 mg/dL [facility] Nitrites, ur Negative Negative [facility] Leukocyte esterase, ur Negative Negative [facility] Urine 06/04/2017 6:43 PM CDT 06/04/2017 7:46 PM CDT Rose Marie Rutledge MD LAB URINE ORDERABLES Final Re sult Performing Organization Address [facility] de Phone Number [facility] Department [place] [address] * Basic metabolic panel (06/04/2017 6:43 PM CDT) Pathologist [facility] Sodium 140 135 - 145 mmol/L [facility] Potassium, pl 3.7 3.3 - 4.9 mmol/L [facility] Chloride 103 97 - 110 mmol/L [facility] CO2 24 22 - 32 mmol/L [facility] BUN 10 8 - 25 mg/dL [facility] Glucose 104 70 - 199 mg/dL [facility] Creatinine 0.68 0.60 - 1.10 mg/dL [facility] Calcium 9.3 8.5 - 10.3 mg/dL [facility] Anion gap 13 2 - 15 mmol/L [facility] Blood specimen (specimen) 06/04/2017 6:43 PM CDT 06/04/2017 7:03 PM CDT Rose Marie Rutledge MD LAB BLOOD ORDERABLES Edited R esult - Final Performing Organization Address [facility] de Phone Number [facility] Department [place] [address] * (ABNORMAL) Differential, auto (06/04/2017 6:43 PM CDT) [facility] Neutrophil pct 57.8 % [facility] Imm gran pct 0.3 % [facility] Lymphocyte pct 33.8 % [facility] Monocyte pct 5.9 % [facility] Eosinophil pct 1.4 % [facility] Basophil pct 0.8 % [facility] Neutrophil abs 5.93 1.70 - 6.50 K/cumm [facility] Imm gran abs 0.03 0.00 - 0.10 K/cumm [facility] Lymphocyte abs 3.47(H) 0.80 - 3.30 K/cumm [facility] Monocyte abs 0.61 0.20 - 0.80 K/cumm [facility] Eosinophil abs 0.14 0.00 - 0.50 K/cumm [facility] Basophil abs 0.08 0.00 - 0.10 K/cumm [facility] Blood specimen (specimen) 06/04/2017 6:43 PM CDT 06/04/2017 7:03 PM CDT us Rose Marie Rutledge MD LAB BLOOD ORDERABLES Final Re sult [facility] Department [place] [address] * (ABNORMAL) CBC with auto differential (06/04/2017 6:43 PM CDT) [facility] WBC 10.26(H) 3.80 - 9.90 K/cumm [facility] RBC 4.92 3.90 - 5.20 M/cumm [facility] Hgb 13.8 11.9 - 15.5 g/dL [facility] Hct 42.7 35.6 - 45.5 % [facility] MCV 86.8 81.3 - 96.4 fL [facility] MCH 28.0 27.1 - 33.3 pg [facility] MCHC 32.3 32.3 - 35.7 g/dL [facility] RDW CV 12.8 11.1 - 14.9 % [facility] RDW SD 40.6 35.7 - 48.1 fL [facility] Plt 341 150 - 400 K/cumm [facility] MPV 9.3 9.1 - 12.3 fL [facility] NRBC 0.0 0.0 - 0.2 % [facility] NRBC abs 0.00 0.00 - 0.01 K/cumm [facility] Blood specimen (specimen) 06/04/2017 6:43 PM CDT 06/04/2017 7:03 PM CDT Rose Marie Rutledge MD LAB BLOOD ORDERABLES Final Re sult [facility] Department [place] [address] documented in this encounter Visit Diagnoses Not on filedocumented in this encounter Care Teams Speech And Hearing Clinic Director Relationship Specialty Start Date End Date Referring, Unknown, PCP - General 06/04/17 08/04/17 documented as of this encounter
--- OUTSIDE RECORDS SUMMARY | 2024-11-11 20:38 | XMS_ITS | Encounter Summary ---
Author Organization [facility] Healthcare Address [address] [place] [address] Care Team Providers Care Paper Coater Name Role Phone Trenton Lomeli MD Primary Care Provider [phone] Neelima Velazquez MD Unavailable [phone] Encounter Details Date Type Department Care Team (Latest Contact Info) Description 11/09/2022 4:21 PM METAL CASKET MAKER - 11/09/2022 11:59 PM METAL CASKET MAKER Hospital Encounter [facility] [address] [id number] Screening, lipid Discharge Disposition: Discharge to home [...] on file Legal Sex Female 4:15 AM METAL CASKET MAKER Gender Identity Not on file Sexual Orientation Not on file 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 Not on file [...] Comments LIPID PANEL Routine 11/09/2022 4:21 PM METAL CASKET MAKER Screening, lipid documented in this encounter Results * (ABNORMAL) Lipid panel (11/09/2022 4:21 PM METAL CASKET MAKER) Cholesterol 235(H) 30 - 199 mg/dL [facility] [...] ratio 6 [facility] Blood 11/09/2022 4:21 PM METAL CASKET MAKER 11/09/2022 7:19 PM METAL CASKET MAKER Trenton Lomeli MD LAB BLOOD ORDERABLES Final Result Performing Organization Address City/State/[facility] [place] Phone Number [place] [address] [address] Department [place] [address] documented in this encounter Visit Diagnoses Diagnosis Screening, lipid documented in this encounter Care Teams Paper Coater Relationship Specialty Start Date End Date Trenton Lomeli MD PCP - General Family Medicine 10/06/21 Neelima Velazquez MD [address] [address] Consulting Physician Gynecology 10/06/21 documented as of this encounter
--- OUTSIDE RECORDS SUMMARY | 2024-11-11 20:38 | XMS_ITS | Encounter Summary ---
Author Organization [facility] Address [address] [address] Care Team Providers Care Hand Stonecutter Name Role Phone Trenton Lomeli MD Primary Care Provider [phone] Neelima Velazquez MD Unavailable [phone] Encounter Details Date Type Department Care Team (Late st Contact Info) Description 08/11/2022 Telephone [facility] Primary Care at [address] [address] Trenton Lomeli MD [address] [place] [address] [address] [place] [address] Social History Tobacco Use Types [...] file Legal Sex Female 4:15 AM MANAGER PERFORMANCE IMPROVEMENT Gender Identity Not on file Sexual Orientation Not on file 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
--- OUTSIDE RECORDS SUMMARY | 2024-11-11 20:38 | XMS_ITS | Encounter Summary ---
Author Organization [facility] Healthcare Address [address] [place] [address] Care Team Providers Care Blockman Name Role Phone Trenton Lomeli MD Primary Care Provider [phone] Neelima Velazquez MD Unavailable [phone] Encounter Details Date Type Department Care Team (Latest Contact Info) Description 10/03/2022 1:52 PM IT ACCOUNT MANAGER - 10/03/2022 11:59 PM IT ACCOUNT MANAGER Hospital Encounter [facility] [address] [place] [address] Acute non-recurrent pansinusitis Discharge Disposition: [...] on file Legal Sex Female 4:15 AM IT ACCOUNT MANAGER Gender Identity Not on file Sexual Orientation Not on file 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 Not on file Not on file documented as of this encounter Medications at Time of Discharge amoxicillin 500 mg tablet/capsuleIndi cations:Acute non-recurrent pansinusitis Take 1 tablet/capsul e (500 mg total) by mouth 2 (two) times a day for 7 days 14 tablet/capsule 10/03/2022 2 BIOTIN ORAL Take by mouth 5 cannabidiol, CBD, (EPIDIOLEX) 100 mg/mL solution Take 5 mg/kg by mouth nightly as needed 5 hydrOXYzine (ATARAX) 50 mg tablet Take 1 tablet (50 mg total) by mouth every 6 (six) hours as needed 07/31/2022 5 Lactobacillus acidophilus (PROBIOTIC ORAL) Take by mouth 06/16 3 multivitamin capsule Take 1 capsule by mouth daily 5 documented as of this encounter Discharge Disposition Disposition Code Departure Means Destination Discharge to home or self care documented in this encounter Plan of Treatment Not on file documented as of this encounter Procedures Procedure Name Priority Date/Time Associated Diagnosis Comments THROAT CULTURE Routine 10/03/2022 1:52 PM IT ACCOUNT MANAGER Acute non-recurrent pansinusitis documented in this encounter Results * Throat culture Throat (10/03/2022 1:52 PM IT ACCOUNT MANAGER) Report Final Report: No growth of pathogens. ARI CLAY Comment:Testing performed by : [facility], [address] [facility] [place]., [address] Throat 10/03/2022 1:52 PM IT ACCOUNT MANAGER 10/04/2022 1:26 AM IT ACCOUNT MANAGER Narrative ARI CLAY - 10/05/2022 1:28 PM IT ACCOUNT MANAGER Testing performed by [facility] Microbiology Laboratory ([phone]). us Gayla Sykes NP LAB MICROBIOLOGY - GENERAL ORD ERABLES Final Result ARI CLAY [id number] Department [place] [address] documented in this encounter Visit Diagnoses Diagnosis Acute non-recurrent pansinusitis documented in this encounter Care Teams Blockman Relationship Specialty Start Date End Date Trenton Lomeli MD PCP - General Family Medicine 10/06/21 Neelima Velazquez MD [address] [address] Consulting Physician Gynecology 10/06/21 documented as of this encounter
--- OUTSIDE RECORDS SUMMARY | 2024-11-11 20:38 | XMS_ITS | Encounter Summary ---
Author Organization [facility] Address [address] [place] [address] Phone Care Team Providers Care Hospital Chief Executive Officer Name Role Phone Sergo Mackey MD Primary Care Provider [phone] Trenton Lomeli MD Primary Care Provider [phone] Neelima Velazquez MD Unavailable [phone] Maura Wilson MD Unavailable [phone] Encounter Details Date Type Department Care [...] on file Legal Sex Female 4:15 AM CALL CENTER PROFESSIONAL Gender Identity Not on file Sexual Orientation [...] COVID: Suspected 10/03/2022 10/03/2022 10/03/2022 1:05 PM CALL CENTER PROFESSIONAL COVID: Suspected 10/22/2022 10/22/2022 10/22/2022 5:32 PM CALL CENTER PROFESSIONAL documented as of this encounter Care Teams Hospital Chief Executive Officer Relationship Specialty Start Date End Date Sergo Mackey MD [address] [place] [address] PCP - General 08/05/17 10/05/21 Trenton Lomeli MD [address] [place] [address] PCP - General Family Medicine 10/06/21 Neelima Velazquez MD [address] [address] Consulting Physician Gynecology 10/06/21 Maura Wilson MD [address] [place] [address] Consulting Physician Cardiology 06/16/23 documented as of this encounter
--- OUTSIDE RECORDS SUMMARY | 2024-11-11 20:38 | XMS_ITS | Encounter Summary ---
Author Organization [facility] Address [address] [address] Care Team Providers Care Joint Maker Machine Name Role Phone Trenton Lomeli MD Primary Care Provider [phone] Neelima Velazquez MD Unavailable [phone] Reason for Visit * Reason Comments Cold Symptoms Patient presents tod with fever, nasal drainage, sore throat, and chills.The patient's symptoms started last Wednesday. For the first 3 days, patient had chills and fevers. 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 Not on file Not on file Not on file documented as of this encounter Last Filed Vital Signs Vital Sign Reading Time Taken Comments Blood Pressure 144/91 10/03/2022 12:39 PM FINANCE INTERN Pulse 104 10/03/2022 12:39 PM FINANCE INTERN Temperature 37.1 ??C (98.8 ??F) 10/03/2022 12:[address] Respiratory Rate 28 10/03/2022 12:39 PM FINANCE INTERN Oxygen Saturation 95% 10/03/2022 12:39 PM FINANCE INTERN Inhaled Oxygen Concentration - - Weight 130.6 kg (288 lb) 10/03/2022 12:39 PM FINANCE INTERN Height 171.5 cm (5' 7.5 ) 10/03/2022 12:39 PM CS T Body Mass Index 44.44 10/03/2022 12:39 PM FINANCE INTERN documented in this encounter Patient Instructions * Patient Instructions* Gayla Sykes, HOME CARE COORDINATOR - 10/03/2022 12:45 PM FINANCE INTERN Symptomatic treatments include: -Over the counter antihistamine [...] same utensils or glass, and use hand manager program before touching people or common surfaces. -Apply [...] SERIOUS COMPLICATION AND REQUIRES IMMEDIATE EMERGENCY ATTENTION. NCE INTERN * Attachments The following attachments cannot be sent through Care Everywhere. * Sinusitis (Crater And Packer) (Greenlandic) documented in this encounter Ordered Prescriptions Prescription [...] rash, and abdominal pain. Patient has taken sqwt-ezy-ukryeqa cold medications for her symptoms. Patient is [...] and frontal sinus tenderness present. Mouth/Throat: Lips: [place]. Mouth: Mucous membranes are moist. Pharynx: Uvula [...] same utensils or glass, and use hand manager program before touching people or common surfaces. -Apply [...] can return to work Patient Education Sinusitis TUBE WORKER: Sinusitis is inflammation or infection of your [...] ask them during your visits. ?? 2017 [employer] Information is for End User's use only and may not be sold, redistributed or otherwise used for commercial purposes. All illustrations and images included in CareNotes?? are the copyrighted property of [employer]. or [employer]. The above information is an cafe aide only. It is not intended as medical advice for individual conditions or treatments. Talk to your doctor, nurse or pharmacist before following any medical regimen to see if it is safe and effective for you. Gayla Sykes NP NCE INTERN documented in this encounter Miscellaneous Notes * Addendum Note - Karmen Reyes CMA - 10/03/2022 12:45 PM CSTAddended by: KARMEN REYES on: 10/03/2022 01:51 PM Modules accepted: Orders NCE INTERN documented in this encounter Plan of Treatment Not on file documented as of this encounter Procedures Procedure Name Priority Date/Time Associated Diagnosis Comments POC INFLUENZA A/B, COVID-19 ANTIGEN Routine 10/03/2022 1:04 PM FINANCE INTERN Acute non-recurrent pansinusitis POCT RAPID STREP Routine 10/03/2022 12:5 8 PM FINANCE INTERN Acute non-recurrent pansinusitis documented in this encounter Results * Throat culture Throat (10/03/2022 1:52 PM FINANCE INTERN) Report Final Report: No growth of pathogens. ARI CLAY Comment:Testing performed by : [facility], [address] [facility], [place]., [address] Throat 10/03/2022 1:52 PM FINANCE INTERN 10/04/2022 1:26 AM FINANCE INTERN Narrative ARI CLAY - 10/05/2022 1:28 PM FINANCE INTERN Testing performed by [facility] Microbiology Laboratory ([phone]). Gayla M. Trower HOME CARE COORDINATOR LAB MICROBIOLOGY - GENERAL ORD ERABLES Final Result ARI CLAY [address] [address] Department [place] [address] * POC Influenza A/B, COVID-19 antigen (10/03/2022 1:04 PM FINANCE INTERN) Influenza A Ag, POC Negative Negative [facility] Influenza B Ag, POC Negative Negative [facility] COVID-19 Ag POC Presumptive Negative Presumptive Negative, Invalid [facility] Nasal 10/03/2022 1:04 PM FINANCE INTERN us Gayla Sykes HOME CARE COORDINATOR POINT OF CARE TEST ORDERABLES Final Result Performing Organization Address [facility] Co de Phone Number [facility] [address] * POCT rapid strep A (10/03/2022 12:58 PM FINANCE INTERN) Rapid Strep A, POC Negative Swab 10/03/2022 12:5 8 PM FINANCE INTERN us Gayla Sykes HOME CARE COORDINATOR POINT OF CARE TEST ORDERABLES Final Result documented in this encounter Visit Diagnoses Diagnosis Acute non-recurrent pansinusitis- Primary Acute non-recurrent pansinusitis documented in this encounter Additional Health Concerns Infection Onset Date Last Indicated Resolved Time COVID: Suspected 10/03/2022 10/03/2022 10/03/2022 1:05 PM FINANCE INTERN documented as of this encounter Care Teams Joint Maker Machine Relationship Specialty Start Date End Date Trenton Lomeli MD PCP - General Family Medicine 10/06/21 Neelima Velazquez MD [address] [place] [address] Consulting Physician Gynecology 10/06/21 documented as of this encounter
--- OUTSIDE RECORDS SUMMARY | 2024-11-11 20:38 | XMS_ITS | Encounter Summary ---
Author Organization [facility] Address [address] [address] Care Team Providers Care Judge Clerk Name Role Phone Trenton Lomeli MD Primary Care Provider [phone] Neelima Velazquez MD Unavailable [phone] Reason for Visit * Reason Comments New Patient new patient Encounter Details Date Type Department Care Team (Late st Contact Info) Description 10/06/2021 2:15 PM EVP MANAGING DIRECTOR Office Visit 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 file Not on file Not on file documented as of this encounter Last Filed Vital Signs Vital Sign Reading Time Taken Comments Blood Pressure 120/80 10/06/2021 1:55 PM EVP MANAGING DIRECTOR Pulse 110 10/06/2021 1:55 PM EVP MANAGING DIRECTOR Temperature 36.6 ??C (97.8 ??F) 10/06/2021 1:55 PM CS T Respiratory Rate 16 10/06/2021 1:55 PM EVP MANAGING DIRECTOR Oxygen Saturation 98% 10/06/2021 1:55 PM EVP MANAGING DIRECTOR Inhaled Oxygen Concentration - - Weight 120.7 kg (266 lb) 10/06/2021 1:55 PM EVP MANAGING DIRECTOR Height 170.2 cm (5' 7 ) 10/06/2021 1:55 PM EVP MANAGING DIRECTOR Body Mass Index 41.66 10/06/2021 1:55 PM EVP MANAGING DIRECTOR documented in this encounter Patient Instructions * Patient Instructions* Trenton Lomeli MD - 10/06/2021 2:15 PM EVP MANAGING DIRECTOR Images from the original note were not [...] viruses cause the flu. The viruses change management director time, so new vaccines are made each [...] could distract you and cause an accident. rubber covering machine operator if you need to make a [...] refuse treatment. The above information is an manager educational only. It is not intended as medical advice for individual conditions or treatments. Talk to your doctor, nurse or pharmacist before following any medical regimen to see if it is safe and effective for you. ?? 2017 [employer] Information is for End User's use only and may not be sold, redistributed or otherwise used for commercial purposes. All illustrations and images included in CareNotes?? are the copyrighted property of [employer]. or [employer]. Thanks for coming in today! My medical assistants and I are thankful you have trusted us with your care, and hope that you received EXCELLENT care today! Please do not hesitate to call if you have any questions or concerns at [phone]. You may receive a phone call, text, MYCHART message, or e-mail asking about your care today. We would love to hear your feedback on how EXCELLENT your care wastoday! Wishing you better health, always. Dr. Lomeli MANAGING DIRECTOR documented in this encounter Progress Notes * [...] WISDOM TOOTH EXTRACTION Oral Surgery Tooth Extraction Nedrow Tooth - (Added by TW Conv) Family [...] - TSH reflex to free T4; Future MANAGING DIRECTOR documented in this encounter Miscellaneous Notes * Assessment & Plan Note - Trenton Lomeli MD - 10/08/2021 2:56 PM EVP MANAGING DIRECTOR Associated Problem(s): Well adult exam A initial well visit to establish care has been performed today. Alia Fabina is up to date on screening tests. She is in need of None- no screening indicated at this time- these have been ordered. She is not up to date on needed preventative vaccinations; She is in need of Tdap/Td. These have been ordered/arranged unless otherwise indicated. MANAGING DIRECTOR MANAGING DIRECTOR documented in this encounter Plan of Treatment Not on file documented as of this encounter Results * TSH reflex to free T4 (10/06/2021 2:39 PM EVP MANAGING DIRECTOR) TSH 0.84 0.30 - 4.20 mcIUnit/mL ARI Blood 10/06/2021 2:39 PM EVP MANAGING DIRECTOR 10/06/2021 7:52 PM EVP MANAGING DIRECTOR Trenton Lomeli MD LAB BLOOD ORDERABLES Final Result Performing Organization Address City/State/ZIP Co nm Phone Number ARI [phone] [address] Department [place] [address] * (ABNORMAL) Lipid panel (10/06/2021 2:39 PM EVP MANAGING DIRECTOR) Cholesterol 147 30 - 199 mg/dL ARI [...] 6 CERNER CH Blood 10/06/2021 2:39 PM EVP MANAGING DIRECTOR 10/06/2021 7:52 PM EVP MANAGING DIRECTOR us Trenton Lomeli MD LAB BLOOD ORDERABLES Final Result ARI [id number] [address] Department [place] [address] * (ABNORMAL) Comprehensive metabolic panel (10/06/2021 2:39 PM EVP MANAGING DIRECTOR) Sodium 141 135 - 145 mmol/L CERNER [...] Units/L CERNER CH Blood 10/06/2021 2:39 PM EVP MANAGING DIRECTOR 10/06/2021 7:52 PM EVP MANAGING DIRECTOR us Trenton Lomeli MD LAB BLOOD ORDERABLES Final Result Performing Organization Address City/State/[facility] Co nm Phone Number [facility] [address] [address] Department [place] [address] * (ABNORMAL) CBC with auto differential (10/06/2021 2:39 PM EVP MANAGING DIRECTOR) WBC 5.6 3.8 - 9.9 K/cumm CERNER CH Hgb 13.6 11.9 - 15.5 g/dL CERNER CH Hct 42.7 35.6 - 45.5 % CERNER CH Plt 338 150 - 400 K/cumm CERNER CH MPV 9.5 9.1 - 12.3 fL CERNER CH RBC 4.83 3.90 - 5.20 M/cumm CERNER CH MCV 88.4 81.3 - 96.4 fL [facility] MCH 28.2 27.1 - 33.3 pg [facility] MCHC 31.9(L) 32.3 - 35.7 g/dL [facility] RDW CV 12.9 11.1 - 14.9 % [facility] RDW SD 41.9 35.7 - 48.1 fL [facility] NRBC abs 0.00 0.00 - 0.01 K/cumm [facility] Blood 10/06/2021 2:39 PM EVP MANAGING DIRECTOR 10/06/2021 7:52 PM EVP MANAGING DIRECTOR us Trenton Lomeli MD LAB BLOOD ORDERABLES Final Result ARI [address] [address] Department [place] [address] documented in this encounter Visit Diagnoses Diagnosis [...] this encounter. BIOTIN ORAL Take by mouth 11/10/2024 multivitamin capsule Take 1 capsule by mouth daily 11/10/2024 Lactobacillus acidophilus (PROBIOTIC ORAL) Take by mouth 06/16 cannabidiol, CBD, (EPIDIOLEX) 100 mg/mL solution Take 5 mg/kg by mouth nightly as needed 11/10/2024 drospirenone, contraceptive, 4 mg (28) tablet Take 4 mg by mouth daily 10/06/2021 Slynd 4 mg (28) tablet Take 1 tablet by mouth daily 08/25/2021 08/10/2022 added in this encounter Care Teams Judge Clerk Relationship Specialty Start Date End Date Trenton Lomeli MD PCP - General Family Medicine 10/06/21 Neelima Velazquez MD [address] [address] Consulting Physician Gynecology 10/06/21 documented as of this encounter
--- OUTSIDE RECORDS SUMMARY | 2024-11-11 20:38 | XMS_ITS | Encounter Summary ---
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 file Not on file Not on file documented as of this encounter Plan of Treatment Not on file documented as of this encounter Procedures Procedure Name Priority Date/Time Associated Diagnosis Comments EGFR Routine 10/06/2021 2:39 PM DAY TREATMENT CLINICIAN/ART THERAPIST Nonalcoholic steatohepatitis (ACE) DIFFERENTIAL AUTO Routine 10/06/2021 2:3 9 PM DAY TREATMENT CLINICIAN/ART THERAPIST Nonalcoholic steatohepatitis (ACE) THYROID FUNCTION CASCADE Routine 10/06/2021 2:39 PM DAY TREATMENT CLINICIAN/ART THERAPIST Essential hypertension CBC WITH AUTO DIFFERENTIAL Routine 10/06/2021 2:39 PM DAY TREATMENT CLINICIAN/ART THERAPIST Nonalcoholic steatohepatitis (ACE) LIPID PANEL Routine 10/06/2021 2:39 PM DAY TREATMENT CLINICIAN/ART THERAPIST Nonalcoholic steatohepatitis (ACE) COMPREHENSIVE METABOLIC PANEL Routine 10/06/2021 2:39 PM DAY TREATMENT CLINICIAN/ART THERAPIST Nonalcoholic steatohepatitis (ACE) documented in this encounter Results * eGFR (10/06/2021 2:39 PM DAY TREATMENT CLINICIAN/ART THERAPIST) eGFR 123 mL/min/1.7 3 m2 ARI CLAY [...] last reviewed 2020 Blood 10/06/2021 2:39 PM DAY TREATMENT CLINICIAN/ART THERAPIST 10/06/2021 8:03 PM DAY TREATMENT CLINICIAN/ART THERAPIST us Trenton Lomeli MD LAB BLOOD ORDERABLES Final Result [facility] [id number] [address] Department [place] [address] * Differential, auto (10/06/2021 2:39 PM DAY TREATMENT CLINICIAN/ART THERAPIST) Neutrophil abs 3.3 1.7 - 6.5 K/cumm CERNER Imm gran abs 0.0 0.0 - 0.1 K/cumm [facility] Lymphocyte abs 1.8 0.8 - 3.3 K/cumm [facility] Monocyte abs 0.4 0.2 - 0.8 K/cumm [facility] Eosinophil abs 0.1 0.0 - 0.5 K/cumm [facility] Basophil abs 0.0 0.0 - 0.1 K/cumm [facility] Neutrophil pct 57.7 % [facility] Comment: Interpretive Data Percent cell count reference ranges are not reported, since discordance with absolute values may lead to misinterpretation of CBC data. Current Interpretive Data was last revised on 2018. Imm gran pct 0.2 % [facility] Comment: Interpretive Data Percent cell count reference ranges are not reported, since discordance with absolute values may lead to misinterpretation of CBC data. Current Interpretive Data was last revised on 2018. Lymphocyte pct 32.1 % [facility] Comment: Interpretive Data Percent cell count reference ranges are not reported, since discordance with absolute values may lead to misinterpretation of CBC data. Current Interpretive Data was last revised on 2018. Monocyte pct 7.3 % [facility] Comment: Interpretive Data Percent cell count [...] revised on 2018. Blood 10/06/2021 2:39 PM DAY TREATMENT CLINICIAN/ART THERAPIST 10/06/2021 7:52 PM DAY TREATMENT CLINICIAN/ART THERAPIST Trenton Lomeli MD LAB BLOOD ORDERABLES Final Result ARI [address] [address] Department [place] [address] * (ABNORMAL) CBC with auto differential (10/06/2021 2:39 PM DAY TREATMENT CLINICIAN/ART THERAPIST) WBC 5.6 3.8 - 9.9 K/cumm [facility] Hgb 13.6 11.9 - 15.5 g/dL [facility] Hct 42.7 35.6 - 45.5 % [facility] Plt 338 150 - 400 K/cumm [facility] MPV 9.5 9.1 - 12.[address] [facility] RBC 4.83 3.90 - 5.20 M/cumm [facility] MCV 88.4 81.3 - 96.[address] [facility] MCH 28.2 27.1 - 33.[address] [facility] MCHC 31.9(L) 32.3 - 35.7 g/dL [facility] RDW CV 12.9 11.1 - 14.9 % [facility] RDW SD 41.9 35.7 - 48.[address] [facility] NRBC abs 0.00 0.00 - 0.01 K/cumm [facility] Blood 10/06/2021 2:39 PM DAY TREATMENT CLINICIAN/ART THERAPIST 10/06/2021 7:52 PM DAY TREATMENT CLINICIAN/ART THERAPIST Trenton Lomeli MD LAB BLOOD ORDERABLES Final Result ARI CLAY [id number] [address] Department [place] [address] * (ABNORMAL) Comprehensive metabolic panel (10/06/2021 2:39 PM DAY TREATMENT CLINICIAN/ART THERAPIST) Sodium 141 135 - 145 mmol/L CERNER [...] Units/L CERNER CH Blood 10/06/2021 2:39 PM DAY TREATMENT CLINICIAN/ART THERAPIST 10/06/2021 7:52 PM DAY TREATMENT CLINICIAN/ART THERAPIST Trenton Lomeli MD LAB BLOOD ORDERABLES Final Result ARI CLAY [address] [address] Department [place] [address] * (ABNORMAL) Lipid panel (10/06/2021 2:39 PM DAY TREATMENT CLINICIAN/ART THERAPIST) [facility] Signature Cholesterol 147 30 - 199 [...] 6 CERNER CH Blood 10/06/2021 2:39 PM DAY TREATMENT CLINICIAN/ART THERAPIST 10/06/2021 7:52 PM DAY TREATMENT CLINICIAN/ART THERAPIST us Trenton Lomeli MD LAB BLOOD ORDERABLES Final Result Performing Organization Address City/[facility] Co de Phone Number ARI [address] [address] Department [place] [address] * TSH reflex to free T4 (10/06/2021 2:39 PM DAY TREATMENT CLINICIAN/ART THERAPIST) TSH 0.84 0.30 - 4.20 mcIUnit/mL CERNER CH Blood 10/06/2021 2:39 PM DAY TREATMENT CLINICIAN/ART THERAPIST 10/06/2021 7:52 PM DAY TREATMENT CLINICIAN/ART THERAPIST us Trenton Lomeli MD LAB BLOOD ORDERABLES Final Result Performing Organization Address [facility] de Phone Number ARI [address] [address] Department [place] [address] documented in this encounter Visit Diagnoses Diagnosis Essential hypertension Unspecified essential hypertension Nonalcoholic steatohepatitis (ACE) documented in this encounter Care Teams Overhead Crane Technician Relationship Specialty Start Date End Date Trenton Lomeli MD PCP - General Family Medicine 10/06/21 Neelima Velazquez MD [address] [address] Consulting Physician Gynecology 10/06/21 documented as of this encounter
--- OUTSIDE RECORDS SUMMARY | 2024-11-11 20:38 | XMS_ITS | Encounter Summary ---
Author Organization [facility] Address [address] [address] Care Team Providers Care Motel Clerk Name Role Phone Trenton Lomeli MD Primary Care Provider [phone] Neelima Velazquez MD Unavailable [phone] Reason for Visit * Reason Comments Urinary Symptom UTI symptoms and str ep symptoms Encounter Details Date Type Department Care Team (Late st Contact Info) Description 08/10/2022 3:30 PM CDT Telemedicine [facility] Primary Care at [address] [address] Trenton Lomeli MD [address] [place] [address] [address] [place] [address] Acute cystitis without hematuria (Primary [...] on file Legal Sex Female 4:15 AM YARD SWITCH OPERATOR Gender Identity Not on file Sexual Orientation Not on file 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 During the visit, I was located in the office and the patient was located at home [facility]. The patient visit started at 330p [...] still under emergency use authorization, so no roasterman data. Low amount of interactions of risks, but GI upset is a main one (apart from risk of allergy. She should avoid for 3 months after medication. In that case, she can forgo the amoxicillin. Trenton Lomeli MD This office note has been partially dictated using commercetools software. documented in this encounter Plan of [...] 6 (six) hours as needed 07/31/2022 11/10/2024 added in this encounter Care Teams Motel Clerk Relationship Specialty Start Date End Date Trenton Lomeli MD PCP - General Family Medicine 10/06/21 Neelima Velazquez MD [address] [address] Consulting Physician Gynecology 10/06/21 documented as of this encounter
--- OUTSIDE RECORDS SUMMARY | 2024-11-11 20:38 | XMS_ITS | Encounter Summary ---
Author Organization [facility] Address [address] [facility] [address] [place] [address] Care Team Providers Care Research Advisor Name Role Phone Trenton Lomeli MD Primary Care Provider [phone] Neelima Velazquez MD Unavailable [phone] Encounter Details Date Type Department Care Team (Late st Contact Info) Description 11/10/2022 Orders Only [facility] Primary Care at [address] [address] Trenton Lomeli MD [address] [place] [address] [address] [place] [address] Mixed hyperlipidemia (Primary Dx) Social [...] on file Legal Sex Female 4:15 AM SOFTWARE INSTALLER Gender Identity Not on file Sexual Orientation Not on file 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
--- OUTSIDE RECORDS SUMMARY | 2024-11-11 20:38 | XMS_ITS | Encounter Summary ---
Author Organization [facility] Address [address] [address] Care Team Providers Care Flight Attendant/Inflight Manager Name Role Phone Trenton Lomeli MD Primary Care Provider [phone] Neelima Velazquez MD Unavailable [phone] Reason for Visit * Reason Onset Date Comments Test Results 11/10/2022 Encounter Details Date Type Department Care Team (Late st Contact Info) Description 11/10/2022 Telephone [facility] Primary Care at [address] [address] Trenton Lomeli MD [address] [place] [address] [address] [place] [address] Test Results Social History Tobacco [...] Legal Sex Female 4:15 AM DIRECTOR OF EDUCATION AND TRAINING Gender Identity Not on file Sexual Orientation Not on file 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 CTOR OF EDUCATION AND TRAINING * Telephone Encounter - Renee Disla - 11/10/2022 3:13 PM CST Test Result Request Type of test: lab work Date of test: 11/09/22 Where was the test performed at?[facility] Did provider dictate result yet? Yes Where were results relayed from in the chart? Labs Tab Caller's Callback #: [phone] Additional Questions/Comments: Patient states that she had [...] Does message need to be routed?Yes-Action Needed CTOR OF EDUCATION AND TRAINING documented in this encounter Plan of Treatment Not on file documented as of this encounter Visit Diagnoses Not on filedocumented in this encounter Care Teams Flight Attendant/Inflight Manager Relationship Specialty Start Date End Date Trenton Lomeli MD PCP - General Family Medicine 10/06/21 Neelima Velazquez MD [address] [address] Consulting Physician Gynecology 10/06/21 documented as of this encounter
== END 2024-11-04 17:54 | disposition left against medical advice (07) ==
PROVIDERS: Emergency Provider Emergency Medicine; PCP Family Medicine
DX: R10.9 Unspecified abdominal pain (principal)
CPT/HCPCS: 93005; 99199

== ENCOUNTER 2024-11-06 02:34 | Emergency (ER) | payer BC, SELFPAY ==
--- NOTE | ~2024-11-06 | XR_ITS ---
Portable chest x-ray Comparison: 10/26/2024 Clinical History: Chest pain Findings: Lungs are clear, without focal consolidation or pleural effusion. Cardiomediastinal silho uette is stable. Bones and soft tissues are unremarkable. Impression: Clear lungs. Reviewed, dictated and finalized at [facility]. [employer] Impression: Clear lungs.
--- NOTE | ~2024-11-06 | CT_ITS ---
CT of the Abdomen and Pelvis: Indication: Abdominal pain Technique: 2.5 mm axial scans were obtained through the abdomen and pelvis following intravenous adm inistration of 100 cc of Omnipaque 350. Dose reduction technique was used on this scan by utilizing a utomated exposure control and iterative reconstruction technique. The dose-length product (DLP) was 1 617.20 mGy-cm. COMPARISON: 10/28/2024 Findings: Scans through the lung bases are unremarkable. The liver, spleen, pancreas, gallbladder, adrenals and kidneys are within normal limits. No evidence of aortic aneurysm. No lymphadenopathy. No bowel obstruction or bowel wall thickening. There is no evidence to suggest acute appendicitis. Images through the pelvis were performed. Urinary bladder unremarkable. No pelvic mass seen. No ascit es. Impression: No significant abnormalities seen. Reviewed, dictated and finalized at [facility]. [employer] CONSULT[employer] Impression: No significant abnormalities seen.
[2024-11-06 02:38] VITALS: BP 135/96; PULSE 96; RESP 17; TEMP 36.6; O2SAT 98
--- NOTE | 2024-11-06 03:18 | ECG_ITS ---
Test Date: 2024-11-06 03:28:52 Measurements Intervals [place] Rate: 71 P: 25 VA: 155 QRS: -9 QRSD: 87 T: 29 QT: 389 QTc: 425 Interpretive Statements SINUS RHYTHM MODERATE VOLTAGE CRITERIA FOR LVH, CONSIDER NORMAL VARIANT [MEETS CRITERIA IN ONE OF: R(aVL), S(V1), R(V5), R(V5/V6)+S(V1)] NONSPECIFIC T WAVE ABNORMALITY Compared to ECG 11/04/2024 14:20:09 NO SIGNIFICANT CHANGES Electronically Signed On 11-08-2024 16:50:31 MICROBIOLOGICAL LAB TECHNICIAN by David Davis M.D.
[2024-11-06 03:38] LABS: Basophils Absolute Auto 0.1 K/mm3 (0.0-0.1); Basophils Percent Auto 0.8 % (0.2-1.2); Eosinophils Absolute Auto 0.1 K/mm3 (0-0.3); Eosinophils Percent Auto 2.2 % (0-4.4); Hemoglobin 13.2 g/dL (12.0-15.0); Immature Granulocyte Absolute 0.01 K/mm3 (0.00-0.031); Immature Granulocyte Percent A 0.2 % (0-0.5); Lymphocytes Absolute Auto 2.07 K/mm3 (0.9-3.2); Lymphocytes Percent Auto 31.9 % (18.3-44.2); Mean Corpuscular HGB Conc 33.8 g/dl (32-36); Mean Corpuscular Hemoglobin 29.6 pg (26-34); Mean Corpuscular Volume 87.4 fl (80-100); Mean Platelet Volume 9.4 fl (7.4-10.4); Monocytes Absolute Auto 0.6 K/mm3 (0.1-0.6); Monocytes Percent Auto 9.4 % (2.6-8.5); Neutrophils Absolute Auto 3.6 K/mm3 (1.3-6.7); Neutrophils Percent Auto 55.5 % (45.5-73.1); Platelet Count Result 268 k/mm3 (150-375); Red Blood Count 4.46 M/mm3 (4.2-5.4); Red Cell Distribution Width 12.5 % (11.5-14.5); White Blood Count 6.5 K/mm3 (4.5-10.0)
[2024-11-06 03:41] LABS: Add Urine Microscopic? NO; Appearance Urine Clear (Clear); Bilirubin Urine Negative (Negative); Blood Urine Negative (Negative); Color Urine Yellow (Yellow); Glucose Urine UA Negative (Negative); Ketones Urine Trace mg/dL (Negative); Leukocyte Esterase Ur Negative LEU/UL (Negative); Nitrate Urine Negative (Negative); Protein Urine Negative (Negative); Specific Grav Ur 1.009 (1.001-1.035); Urobilinogen Urine 0.2 mg/dL (<2.0)
--- NOTE | 2024-11-06 03:59 | ED_ITS ---
HPI - General Adult General Chief complaint: Abdominal Pain Stated complaint: SHARP EPIGASTRIC/ABDOMINAL PAIN Time Seen by Provider: 11/06/24 03:05 History of Present Illness HPI narrative: Patient is a 32-year-old female who presents emergency department with chief complaint of abdominal pain. Patient reports he has been having abdominal discomfort for some time worse in the epigastric area the patient states she has been seen both in our facility and also at [facility] the patient states she has had polyuria reports that her mouth is dry the patient states she is concerned that she may be dehydrated or in DKA because she has insulin resistance. Related Data Home Medications ?Medication ?Instructions ?Recorded ?Confirmed ?Last Taken ?Type drospirenone (contraceptive) 4 mg 1 tablet PO DAILY 09/24/21 10/02/21 Unknown History (28) tablet (Slynd) Allergies Allergy/AdvReac Type Severity Reaction Status Date / Time aripiprazole Allergy Mild Unknown Verified 11/06/24 02:47 paroxetine Allergy Unknown Unknown Verified 11/06/24 02:47 pseudoephedrine Allergy Unknown Unknown Verified 11/06/24 02:47 Benzodiazepines AdvReac Other Verified 11/06/24 02:47 lorazepam (From Ativan) AdvReac Other Verified 11/06/24 02:47 DEPRESSION MEDS SSRI AdvReac Unknown Unknown Uncoded 11/06/24 02:47 sleeping medications AdvReac Unknown Unknown Uncoded 11/06/24 02:47 Review of Systems 2 Review of Systems: A 10 system review of systems was completed on the patient and is negative except for what is stated in the HPI. Nursing and ancillary documentation was reviewed. [facility] Past Medical History Medical History (Updated 11/06/24 @ 05:49 by Artur Sanchez MD) Previous known suicide attempt Panic attacks Bipolar 1 disorder Depression ADHD PCOS (polycystic ovarian syndrome) IBS (irritable bowel syndrome) Hypertension Seizure Headache, migraine Ataxia Diaphoresis Hypersomnia Obesity, Class III, BMI 40-49.9 (morbid obesity) Palpitations with regular cardiac rhythm (05/31/17) Periumbilical abdominal pain Tachycardia Surgical History Surgical History History of wisdom tooth extraction Family History Family History Mother Diabetes mellitus Family history of chronic obstructive pulmonary disease Family history of congestive heart failure Social History Social History Smoking status: Former smoker Exam 2 Narrative: GENERAL: Well-appearing, well-nourished, and in no acute distress. HEAD: Normocephalic, atraumatic. EYES: PERRLA and EOMI. ENT: Nares clear, no rhinorrhea or epistaxis. Mucous membranes moist. NECK: Supple. CHEST: Clear to auscultation. No respiratory distress. HEART: Regular rate and rhythm. No murmur heard. Normal peripheral pulses. ABDOMEN: Soft, nontender, nondistended, normal active bowel sounds. EXTREMITIES: Normal range of motion. No edema. SKIN: Warm, dry, no rash. NEURO: No focal deficits. Alert and oriented x3. PSYCH: Normal mood and affect. Course Vital Signs Vital signs: Vital Signs Temperature 36.6 C 11/06/24 02:38 Pulse Rate 96 11/06/24 02:38 Respiratory Rate 17 11/06/24 02:38 Blood Pressure 135/96 H 11/06/24 02:38 Pulse Oximetry 98 11/06/24 02:38 Oxygen Delivery Room Air 11/06/24 02:38 Temperature 36.6 C 11/06/24 02:38 Pulse Rate 65 11/06/24 04:55 Respiratory Rate 17 11/06/24 04:55 Blood Pressure 129/87 11/06/24 04:55 Pulse Oximetry 99 11/06/24 04:55 Oxygen Delivery Room Air 11/06/24 02:38 Medical Decision Making [facility] Narrative Medical decision making narrative: Differential diagnosis includes electrolyte abnormality, dehydration DKA hyperglycemia, Gastritis, intra-abdominal infection CT scan of the abdomen pelvis was obtained was within normal limits. Chest x- ray showed no focal abnormality EKG showed sinus rhythm rate of [address] elevation or ST depression Vital Signs Vital Signs: Vital Signs Temperature 36.6 C 11/06/24 02:38 Pulse Rate 96 11/06/24 02:38 Respiratory Rate 17 11/06/24 02:38 Blood Pressure 135/96 H 11/06/24 02:38 Pulse Oximetry 98 11/06/24 02:38 Oxygen Delivery Room Air 11/06/24 02:38 Temperature 36.6 C 11/06/24 02:38 Pulse Rate 65 11/06/24 04:55 Respiratory Rate 17 11/06/24 04:55 Blood Pressure 129/87 11/06/24 04:55 Pulse Oximetry 99 11/06/24 04:55 Oxygen Delivery Room Air 11/06/24 02:38 Lab Data 11/06/24 03:29 11/06/24 03:29 Labs: Lab Results 11/06/24 11/06/24 11/06/24 Range/Units 03:29 03:29 03:29 WBC 6.5 (4.5-10.0) K/mm3 RBC 4.46 (4.2-5.4) M/mm3 Hgb 13.2 (12.0-15.0) g/dL Hct 39.0 (37.0-47.0) % MCV 87.4 (80-100) fl MCH 29.6 (26-34) pg MCHC 33.8 (32-36) g/dl RDW 12.5 (11.5-14.5) % Plt Count 268 (150-375) k/mm3 MPV 9.4 (7.4-10.4) fl Immature Gran % (Auto) 0.2 (0-0.5) % Neut % (Auto) 55.5 (45.5-73.1) % Lymph % (Auto) 31.9 (18.3-44.2) % Dickinson % (Auto) 9.4 H (2.6-8.5) % Eos % (Auto) 2.2 (0-4.4) % Baso % (Auto) 0.8 (0.2-1.2) % Lymph # (Auto) 2.07 (0.9-3.2) K/mm3 Dickinson # (Auto) 0.6 (0.1-0.6) K/mm3 Eos # (Auto) 0.1 (0-0.3) K/mm3 Baso # (Auto) 0.1 (0.0-0.1) K/mm3 Abs Immat Gran (auto) 0.01 (0.00-0.031) K/mm3 Absolute Neuts (auto) 3.6 (1.3-6.7) K/mm3 Absolute Nucleated RBC 0.000 (0.0-0.012) K/mm3 Nucleated RBC % 0.0 (0.0-0.2) % Sodium Cancelled 138 Potassium Cancelled 3.3 L Chloride Cancelled Carbon Dioxide Anion Gap BUN Creatinine Estim Creat Clear Calc Estimated GFR Glucose Lactic Acid (0.7-2.0) mmol/L Calcium Magnesium (1.6-2.3) mg/dL Total Bilirubin AST ALT Alkaline Phosphatase Troponin I (0.000-0.034) ng/mL Total Protein Albumin Lipase (23-300) U/L Procalcitonin ng/mL Urine Color (Yellow) Urine Appearance (Clear) Urine pH (5.0-9.0) Ur Specific Conway (1.001-1.035) Urine Protein (Negative) mg/dL Urine Glucose (UA) (Negative) mg/dL Urine Ketones (Negative) mg/dL Ur Blood (Man) (Negative) Urine Nitrate (Negative) Urine Bilirubin (Negative) Urine Urobilinogen (<2.0) mg/dL Leukocyte Esterase Rfl (Negative) ANGUS/UL Urine Test Urine Opiates Screen (Negative) Urine Methadone Screen (Negative) Ur Barbiturates Screen (Negative) Ur Phencyclidine Scrn (Negative) Ur Amphetamine Screen (Negative) U Benzodiazepines Scrn (Negative) Urine Cocaine Screen (Negative) U Cannabinoids Screen (Negative) Influenza A (RT-PCR) (Negative) Influenza B (RT-PCR) (Negative) RSV (RT-PCR) (Negative) SARS-CoV-2 RNA (RT-PCR) (Negative) 11/06/24 11/06/24 11/06/24 Range/Units 03:29 03:29 03:29 WBC (4.5-10.0) K/mm3 RBC (4.2-5.4) M/mm3 Hgb (12.0-15.0) g/dL Hct (37.0-47.0) % MCV (80-100) fl MCH (26-34) pg MCHC (32-36) g/dl RDW (11.5-14.5) % Plt Count (150-375) k/mm3 MPV (7.4-10.4) fl Immature Gran % (Auto) (0-0.5) % Neut % (Auto) (45.5-73.1) % Lymph % (Auto) (18.3-44.2) % Dickinson % (Auto) (2.6-8.5) % Eos % (Auto) (0-4.4) % Baso % (Auto) (0.2-1.2) % Lymph # (Auto) (0.9-3.2) K/mm3 Dickinson # (Auto) (0.1-0.6) K/mm3 Eos # (Auto) (0-0.3) K/mm3 Baso # (Auto) (0.0-0.1) K/mm3 Abs Immat Gran (auto) (0.00-0.031) K/mm3 Absolute Neuts (auto) (1.3-6.7) K/mm3 Absolute Nucleated RBC (0.0-0.012) K/mm3 Nucleated RBC % (0.0-0.2) % Sodium Potassium Chloride 106 Carbon Dioxide Cancelled 27 Anion Gap Cancelled 5 BUN Cancelled Creatinine Estim Creat Clear Calc Estimated GFR Glucose Lactic Acid (0.7-2.0) mmol/L Calcium Magnesium (1.6-2.3) mg/dL Total Bilirubin AST ALT Alkaline Phosphatase Troponin I (0.000-0.034) ng/mL Total Protein Albumin Lipase (23-300) U/L Procalcitonin ng/mL Urine Color (Yellow) Urine Appearance (Clear) Urine pH (5.0-9.0) Ur Specific Conway (1.001-1.035) Urine Protein (Negative) mg/dL Urine Glucose (UA) (Negative) mg/dL Urine Ketones (Negative) mg/dL Ur Blood (Man) (Negative) Urine Nitrate (Negative) Urine Bilirubin (Negative) Urine Urobilinogen (<2.0) mg/dL Leukocyte Esterase Rfl (Negative) ANGUS/UL Urine Test Urine Opiates Screen (Negative) Urine Methadone Screen (Negative) Ur Barbiturates Screen (Negative) Ur Phencyclidine Scrn (Negative) Ur Amphetamine Screen (Negative) U Benzodiazepines Scrn (Negative) Urine Cocaine Screen (Negative) U Cannabinoids Screen (Negative) Influenza A (RT-PCR) (Negative) Influenza B (RT-PCR) (Negative) RSV (RT-PCR) (Negative) SARS-CoV-2 RNA (RT-PCR) (Negative) 11/06/24 11/06/24 11/06/24 Range/Units 03:29 03:29 03:29 WBC (4.5-10.0) K/mm3 RBC (4.2-5.4) M/mm3 Hgb (12.0-15.0) g/dL Hct (37.0-47.0) % MCV (80-100) fl MCH (26-34) pg MCHC (32-36) g/dl RDW (11.5-14.5) % Plt Count (150-375) k/mm3 MPV (7.4-10.4) fl Immature Gran % (Auto) (0-0.5) % Neut % (Auto) (45.5-73.1) % Lymph % (Auto) (18.3-44.2) % Dickinson % (Auto) (2.6-8.5) % Eos % (Auto) (0-4.4) % Baso % (Auto) (0.2-1.2) % Lymph # (Auto) (0.9-3.2) K/mm3 Dickinson # (Auto) (0.1-0.6) K/mm3 Eos # (Auto) (0-0.3) K/mm3 Baso # (Auto) (0.0-0.1) K/mm3 Abs Immat Gran (auto) (0.00-0.031) K/mm3 Absolute Neuts (auto) (1.3-6.7) K/mm3 Absolute Nucleated RBC (0.0-0.012) K/mm3 Nucleated RBC % (0.0-0.2) % Sodium Potassium Chloride Carbon Dioxide Anion Gap BUN 5 L Creatinine Cancelled 0.60 L Estim Creat Clear Calc Cancelled 152 Estimated GFR Cancelled Glucose Lactic Acid (0.7-2.0) mmol/L Calcium Magnesium (1.6-2.3) mg/dL Total Bilirubin AST ALT Alkaline Phosphatase Troponin I (0.000-0.034) ng/mL Total Protein Albumin Lipase (23-300) U/L Procalcitonin ng/mL Urine Color (Yellow) Urine Appearance (Clear) Urine pH (5.0-9.0) Ur Specific Conway (1.001-1.035) Urine Protein (Negative) mg/dL Urine Glucose (UA) (Negative) mg/dL Urine Ketones (Negative) mg/dL Ur Blood (Man) (Negative) Urine Nitrate (Negative) Urine Bilirubin (Negative) Urine Urobilinogen (<2.0) mg/dL Leukocyte Esterase Rfl (Negative) ANGUS/UL Urine Test Urine Opiates Screen (Negative) Urine Methadone Screen (Negative) Ur Barbiturates Screen (Negative) Ur Phencyclidine Scrn (Negative) Ur Amphetamine Screen (Negative) U Benzodiazepines Scrn (Negative) Urine Cocaine Screen (Negative) U Cannabinoids Screen (Negative) Influenza A (RT-PCR) (Negative) Influenza B (RT-PCR) (Negative) RSV (RT-PCR) (Negative) SARS-CoV-2 RNA (RT-PCR) (Negative) 11/06/24 11/06/24 11/06/24 Range/Units 03:29 03:29 03:29 WBC (4.5-10.0) K/mm3 RBC (4.2-5.4) M/mm3 Hgb (12.0-15.0) g/dL Hct (37.0-47.0) % MCV (80-100) fl MCH (26-34) pg MCHC (32-36) g/dl RDW (11.5-14.5) % Plt Count (150-375) k/mm3 MPV (7.4-10.4) fl Immature Gran % (Auto) (0-0.5) % Neut % (Auto) (45.5-73.1) % Lymph % (Auto) (18.3-44.2) % Dickinson % (Auto) (2.6-8.5) % Eos % (Auto) (0-4.4) % Baso % (Auto) (0.2-1.2) % Lymph # (Auto) (0.9-3.2) K/mm3 Dickinson # (Auto) (0.1-0.6) K/mm3 Eos # (Auto) (0-0.3) K/mm3 Baso # (Auto) (0.0-0.1) K/mm3 Abs Immat Gran (auto) (0.00-0.031) K/mm3 Absolute Neuts (auto) (1.3-6.7) K/mm3 Absolute Nucleated RBC (0.0-0.012) K/mm3 Nucleated RBC % (0.0-0.2) % Sodium Potassium Chloride Carbon Dioxide Anion Gap BUN Creatinine Estim Creat Clear Calc Estimated GFR > 60 Glucose Cancelled 101 Lactic Acid 1.1 (0.7-2.0) mmol/L Calcium Cancelled 9.1 Magnesium 2.0 (1.6-2.3) mg/dL Total Bilirubin Cancelled AST ALT Alkaline Phosphatase Troponin I (0.000-0.034) ng/mL Total Protein Albumin Lipase (23-300) U/L Procalcitonin ng/mL Urine Color (Yellow) Urine Appearance (Clear) Urine pH (5.0-9.0) Ur Specific Conway (1.001-1.035) Urine Protein (Negative) mg/dL Urine Glucose (UA) (Negative) mg/dL Urine Ketones (Negative) mg/dL Ur Blood (Man) (Negative) Urine Nitrate (Negative) Urine Bilirubin (Negative) Urine Urobilinogen (<2.0) mg/dL Leukocyte Esterase Rfl (Negative) ANGUS/UL Urine Test Urine Opiates Screen (Negative) Urine Methadone Screen (Negative) Ur Barbiturates Screen (Negative) Ur Phencyclidine Scrn (Negative) Ur Amphetamine Screen (Negative) U Benzodiazepines Scrn (Negative) Urine Cocaine Screen (Negative) U Cannabinoids Screen (Negative) Influenza A (RT-PCR) (Negative) Influenza B (RT-PCR) (Negative) RSV (RT-PCR) (Negative) SARS-CoV-2 RNA (RT-PCR) (Negative) 11/06/24 11/06/24 11/06/24 Range/Units 03:29 03:29 03:29 WBC (4.5-10.0) K/mm3 RBC (4.2-5.4) M/mm3 Hgb (12.0-15.0) g/dL Hct (37.0-47.0) % MCV (80-100) fl MCH (26-34) pg MCHC (32-36) g/dl RDW (11.5-14.5) % Plt Count (150-375) k/mm3 MPV (7.4-10.4) fl Immature Gran % (Auto) (0-0.5) % Neut % (Auto) (45.5-73.1) % Lymph % (Auto) (18.3-44.2) % Dickinson % (Auto) (2.6-8.5) % Eos % (Auto) (0-4.4) % Baso % (Auto) (0.2-1.2) % Lymph # (Auto) (0.9-3.2) K/mm3 Dickinson # (Auto) (0.1-0.6) K/mm3 Eos # (Auto) (0-0.3) K/mm3 Baso # (Auto) (0.0-0.1) K/mm3 Abs Immat Gran (auto) (0.00-0.031) K/mm3 Absolute Neuts (auto) (1.3-6.7) K/mm3 Absolute Nucleated RBC (0.0-0.012) K/mm3 Nucleated RBC % (0.0-0.2) % Sodium Potassium Chloride Carbon Dioxide Anion Gap BUN Creatinine Estim Creat Clear Calc Estimated GFR Glucose Lactic Acid (0.7-2.0) mmol/L Calcium Magnesium (1.6-2.3) mg/dL Total Bilirubin 1.0 AST Cancelled 21 ALT Cancelled 16 Alkaline Phosphatase Cancelled Troponin I (0.000-0.034) ng/mL Total Protein Albumin Lipase (23-300) U/L Procalcitonin ng/mL Urine Color (Yellow) Urine Appearance (Clear) Urine pH (5.0-9.0) Ur Specific Conway (1.001-1.035) Urine Protein (Negative) mg/dL Urine Glucose (UA) (Negative) mg/dL Urine Ketones (Negative) mg/dL Ur Blood (Man) (Negative) Urine Nitrate (Negative) Urine Bilirubin (Negative) Urine Urobilinogen (<2.0) mg/dL Leukocyte Esterase Rfl (Negative) ANGUS/UL Urine Test Urine Opiates Screen (Negative) Urine Methadone Screen (Negative) Ur Barbiturates Screen (Negative) Ur Phencyclidine Scrn (Negative) Ur Amphetamine Screen (Negative) U Benzodiazepines Scrn (Negative) Urine Cocaine Screen (Negative) U Cannabinoids Screen (Negative) Influenza A (RT-PCR) (Negative) Influenza B (RT-PCR) (Negative) RSV (RT-PCR) (Negative) SARS-CoV-2 RNA (RT-PCR) (Negative) 11/06/24 11/06/24 11/06/24 Range/Units 03:29 03:29 03:29 WBC (4.5-10.0) K/mm3 RBC (4.2-5.4) M/mm3 Hgb (12.0-15.0) g/dL Hct (37.0-47.0) % MCV (80-100) fl MCH (26-34) pg MCHC (32-36) g/dl RDW (11.5-14.5) % Plt Count (150-375) k/mm3 MPV (7.4-10.4) fl Immature Gran % (Auto) (0-0.5) % Neut % (Auto) (45.5-73.1) % Lymph % (Auto) (18.3-44.2) % Dickinson % (Auto) (2.6-8.5) % Eos % (Auto) (0-4.4) % Baso % (Auto) (0.2-1.2) % Lymph # (Auto) (0.9-3.2) K/mm3 Dickinson # (Auto) (0.1-0.6) K/mm3 Eos # (Auto) (0-0.3) K/mm3 Baso # (Auto) (0.0-0.1) K/mm3 Abs Immat Gran (auto) (0.00-0.031) K/mm3 Absolute Neuts (auto) (1.3-6.7) K/mm3 Absolute Nucleated RBC (0.0-0.012) K/mm3 Nucleated RBC % (0.0-0.2) % Sodium Potassium Chloride Carbon Dioxide Anion Gap BUN Creatinine Estim Creat Clear Calc Estimated GFR Glucose Lactic Acid (0.7-2.0) mmol/L Calcium Magnesium (1.6-2.3) mg/dL Total Bilirubin AST ALT Alkaline Phosphatase 61 Troponin I < 0.012 (0.000-0.034) ng/mL Total Protein Cancelled 7.0 Albumin Cancelled 4.2 Lipase 49 (23-300) U/L Procalcitonin < 0.0 ng/mL Urine Color Yellow (Yellow) Urine Appearance Clear (Clear) Urine pH 6.0 (5.0-9.0) Ur Specific Conway 1.009 (1.001-1.035) Urine Protein Negative (Negative) mg/dL Urine Glucose (UA) Negative (Negative) mg/dL Urine Ketones Trace H (Negative) mg/dL Ur Blood (Man) Negative (Negative) Urine Nitrate Negative (Negative) Urine Bilirubin Negative (Negative) Urine Urobilinogen 0.2 (<2.0) mg/dL Leukocyte Esterase Rfl Negative (Negative) ANGUS/UL Urine Test Negative Urine Opiates Screen Negative (Negative) Urine Methadone Screen Negative (Negative) Ur Barbiturates Screen Negative (Negative) Ur Phencyclidine Scrn Negative (Negative) Ur Amphetamine Screen Negative (Negative) U Benzodiazepines Scrn Negative (Negative) Urine Cocaine Screen Negative (Negative) U Cannabinoids Screen Negative (Negative) Influenza A (RT-PCR) Negative (Negative) Influenza B (RT-PCR) Negative (Negative) RSV (RT-PCR) Negative (Negative) SARS-CoV-2 RNA (RT-PCR) Negative (Negative) Discharge Plan Discharge Clinical Impression: Abdominal pain, Gastritis Instructions: Antibiotic Form, Gastritis (ED), Abdominal Pain (ED) Patient Language: Kazakh Prescriptions: New pantoprazole [Protonix] 40 mg tablet,delayed release (DR/EC) 40 mg PO HS 28 Days Qty: 28 0RF sucralfate [Carafate] 1 gram tablet 1 g PO QID PRN (Reason: abdominal discomfort) 10 Days Qty: 40 0RF No Action Slynd 4 mg (28) tablet 1 tablet PO DAILY azithromycin [Zithromax Z-Mike] 250 mg tablet See Rx Instructions .ROUTE .COMPLEX Qty: 6 0RF Rx Instructions: take 500 mg today (day 1), then 250 mg for 4 days (days 2-5) promethazine 50 mg tablet 50 mg PO Q6H PRN (Reason: nausea) Qty: 10 0RF dicyclomine 10 mg capsule 10 mg PO BID PRN (Reason: abdominal pain) Qty: 10 0RF ondansetron 4 mg tablet,disintegrating 4 mg PO Q8H PRN (Reason: nausea and vomiting) Qty: 14 0RF omeprazole 20 mg capsule,delayed release(DR/EC) 20 mg PO DAILY 14 Days Qty: 14 0RF Follow-up/Referrals: Yani,Trenton Washington MD [Primary Care Provider] - Time of Disposition: 05:48
[2024-11-06] MEDS: METOCLOPRAMIDE HCL INJ 10 MG/2 ML VIAL IV PUSH (04:01)
[2024-11-06 04:02] LABS: Lactic Acid Reflex 1.1 mmol/L (0.7-2.0)
[2024-11-06] MEDS: SODIUM CHLORIDE 0.9% IV 1,000 ML 999 ML IV CONT (04:02)
[2024-11-06 04:03] LABS: Alanine Aminotransferase 16 U/L (6-35); Albumin Level 4.2 g/dL (3.5-5.1); Alkaline Phosphatase 61 U/L (38-126); Anion Gap 5 mmol/L (4-12); Aspartate Amino Transferase 21 U/L (14-36); Blood Urea Nitrogen 5 mg/dL (7-17); Calcium 9.1 mg/dL (8.4-10.2); Carbon Dioxide 27 mmol/L (22-30); Chloride 106 mmol/L (98-107); Estimated CRCL calculation 152 ml/min; Estimated Glomerular Filt Rate > 60; Glucose 101 mg/dL (65-110); Lipase 49 U/L (23-300); Potassium 3.3 mmol/L (3.4-5.0); Sodium 138 mmol/L (137-145)
[2024-11-06 04:12] LABS: Amphetamine Screen Urine Negative (Negative); Barbiturate Screen Urine Negative (Negative); Benzodiazepines Screen Urine Negative (Negative); Cannabinoid Screen Urine Negative (Negative); Cocaine Screen Urine Negative (Negative); Methadone Screen Urine Negative (Negative); Opiate Screen Urine Negative (Negative); Phencyclidine Screen Urine Negative (Negative)
[2024-11-06 04:15] LABS: Pregnancy On Board Control Positive; Urine Pregnancy Test Negative
[2024-11-06 04:20] LABS: Troponin I < 0.012 ng/mL (0.000-0.034)
[2024-11-06 04:28] LABS: Procalcitonin < 0.0 ng/mL
[2024-11-06 04:32] LABS: Influenza A QL RT-PCR Negative (Negative); Influenza B QL RT-PCR Negative (Negative); RSV RNA, RT-PCR Negative (Negative); SARS-CoV-2 RNA PCR Negative (Negative)
[2024-11-06 04:55] VITALS: BP 129/87; PULSE 65; RESP 17; O2SAT 99
[2024-11-06] MEDS: PANTOPRAZOLE 40 MG TABLET PO (06:21)
[2024-11-06] MEDS: SUCRALFATE SUSP 100 MG/ML 10 ML UDC 1000 MG PO (06:21)
--- OUTSIDE RECORDS SUMMARY | 2024-11-12 14:02 | XMS_ITS | CONTINUITY OF CARE DOCUMENT ---
Author Name rosario ponce Address Unknown Organization [facility] Address [address] [facility] [address] [place] [address] Phone [phone] Care Team Providers Care Small Business Director Name Role Phone Balbir JOHNSON, Sophie Unavailable [phone] RACHEL JOHNSON, ALYSON Unavailable [phone] INSURANCE PROVIDERS Payer name Policy type / Coverage type [place] red republican ID [facility] [id number]
--- OUTSIDE RECORDS SUMMARY | 2024-11-12 14:02 | XMS_ITS | Encounter Summary ---
Author Organization [facility] Address [address] [place] [address]. [place], [place] [address] [place] [address] Care Team Providers Care Parts Salesperson Name Role Phone Sergo Mackey MD Primary Care Provider Julian short Encounter Details Date Type Department Care Team (Latest Contact Info) Description 06/29/2017 Abstract [facility] Medical [...] filedocumented in this encounter Care Teams Parts Salesperson Relationship Specialty Start Date End Date Sergo Mackey MD PCP - General 04/07/17 documented as of this encounter
--- OUTSIDE RECORDS SUMMARY | 2024-11-12 14:02 | XMS_ITS | Encounter Summary ---
Author Organization [facility] Address [facility]. [place], [place] [address] [place] [address] Care Team Providers Care Holistic Health Practitioner Name Role Phone Sergo Mackey MD Primary Care Provider Julian short Encounter Details Date Type Department Care Team (Latest Contact Info) Description 08/23/2017 Abstract [facility] Social [...] Jovanni Omalley MA; Aug 23 2017 9:39AM APPLIED MATHEMATICIAN (Author) documented in this encounter Plan of Treatment Not on file documented as of this encounter Visit Diagnoses Not on filedocumented in this encounter Care Teams Holistic Health Practitioner Relationship Specialty Start Date End Date Sergo Mackey MD PCP - General 04/07/17 documented as of this encounter
--- OUTSIDE RECORDS SUMMARY | 2024-11-12 14:02 | XMS_ITS | Encounter Summary ---
Author Organization [facility] Address [address] [place] [address]. [place], [place] [address] [place] [address] Care Team Providers Care Soap Inspector Name Role Phone Sergo Mackey MD Primary Care Provider Julian short Encounter Details Date Type Department Care Team (Latest Contact Info) Description 08/19/2017 Abstract [facility] Social [...] on filedocumented in this encounter Care Teams Soap Inspector Relationship Specialty Start Date End Date Sergo Mackey MD PCP - General 04/07/17 documented as of this encounter
--- OUTSIDE RECORDS SUMMARY | 2024-11-12 14:02 | XMS_ITS | Encounter Summary ---
Author Organization [facility] Address [address] [place] [address]. [place], [place] [address] [place] [address] Care Team Providers Care Cupola Liner Name Role Phone Sergo Mackey MD Primary [...] on filedocumented in this encounter Care Teams Cupola Liner Relationship Specialty Start Date End Date Sergo Mackey MD PCP - General 04/07/17 documented as of this encounter
--- OUTSIDE RECORDS SUMMARY | 2024-11-12 14:02 | XMS_ITS | Encounter Summary ---
Author Organization [facility] Address [address] [place] [address]. [place], [place] [address] [place] [address] Care Team Providers Care Bag Maker Name Role Phone Sergo Mackey MD Primary Care Provider Julian short Encounter Details Date Type Department Care Team (Latest Contact Info) Description 08/27/2017 Abstract [facility] Social History Tobacco [...] filedocumented in this encounter Care Teams Bag Maker Relationship Specialty Start Date End Date Sergo Mackey MD PCP - General 04/07/17 documented as of this encounter
--- OUTSIDE RECORDS SUMMARY | 2024-11-12 14:02 | XMS_ITS | Clinical Summary ---
Author Organization [facility] Address [address] [place] [address]. [place] [address] [place] [address] Care Team Providers Care Cath Lab Tech Name Role Phone Sergo Mackey MD Primary [...] age to complete this topic Care Teams Cath Lab Tech Relationship Specialty Start Date End Date Sergo Mackey MD PCP - General 04/07/17
--- OUTSIDE RECORDS SUMMARY | 2024-11-12 14:02 | XMS_ITS | Encounter Summary ---
Author Organization [facility] Address [address] [place] [address]. [place], [place] [address] [place] [address] Care Team Providers Care Enterprise Software Engineer Name Role Phone Sergo Mackey MD Primary Care Provider Julian short Encounter Details Date Type Department Care Team (Latest Contact Info) Description 05/12/[address] [facility] Social [...] on filedocumented in this encounter Care Teams Enterprise Software Engineer Relationship Specialty Start Date End Date Sergo Mackey MD PCP - General 04/07/17 documented as of this encounter
--- OUTSIDE RECORDS SUMMARY | 2024-11-12 14:02 | XMS_ITS | Encounter Summary ---
Author Organization [facility] Address [address] [place] [address]. [place] [address] [place] [address] Care Team Providers Care Sofa Inspector Name Role Phone Sergo Mackey MD Primary Care Provider Julian short Encounter Details Date Type Department Care Team (Latest Contact Info) Description 07/15/2017 Abstract [facility] [...] ORDER MAILED ---NK Verified Results LC-Vitamin B12 [id number] 01:54PM Sergo Mackey Test Name Result Flag Reference Vitamin B12 580 pg/mL 211-946 LC-Vitamin D, 25-Hydroxy [id number] 01:54PM Sergo Mackey Test Name Result Flag Reference Vitamin D, 25-Hydroxy 15.7 ng/mL L 30.0-100.0 Vitamin D deficiency has been defined by the [place] of Medicine and an Endocrine Society practice guideline as a level of serum 25-OH vitamin D less than 20 ng/mL (1,2). The Endocrine Society went on to further define vitamin D insufficiency as a level between 21 and 29 ng/mL (2). 1. IOM ([place] of Medicine). 2010. Dietary reference intakes for [...] Berenice Barone MA; Jul 15 2017 3:52PM NON ACOUSTIC OPERATOR (Author) documented in this encounter Plan of Treatment Not on file documented as of this encounter Visit Diagnoses Not on filedocumented in this encounter Care Teams Sofa Inspector Relationship Specialty Start Date End Date Sergo Mackey MD PCP - General 04/07/17 documented as of this encounter
--- OUTSIDE RECORDS SUMMARY | 2024-11-12 14:02 | XMS_ITS | Encounter Summary ---
Author Organization [facility] Address [facility]. [place], [place] [address] [place] [address] Care Team Providers Care Meat Grading Machine Operator Name Role Phone Sergo Mackey MD Primary Care Provider Julian short Encounter Details Date Type Department Care Team (Latest Contact Info) Description 05/25/2017 Abstract [facility] [...] Task Name: Medical Complaint Callback Assigned To: [facility] Narendra Regarding Patient: Alia Fabian, Status: In Progress Comment: Jaclyn Santana - 25 May 2017 11:21 AM TASK CREATED Caller: Lay, Mother; Medical Complaint; [phone] pt saw neuro Damaris Harding at [facility] last Wednesday for weakness in legs, arms, [...] order and wants us to order phone [phone] for neuro pts #[phone] Sergo Mackey - 25 May 2017 11:54 [...] Fariba Garvey MA; May 25 2017 4:34PM AUTOMOTIVE TECHNOLOGY INSTRUCTOR (Author) documented in this encounter Plan of Treatment Not on file documented as of this encounter Visit Diagnoses Not on filedocumented in this encounter Care Teams Meat Grading Machine Operator Relationship Specialty Start Date End Date Sergo Mackey MD PCP - General 04/07/17 documented as of this encounter
--- OUTSIDE RECORDS SUMMARY | 2024-11-12 14:02 | XMS_ITS | Encounter Summary ---
Author Organization [facility] Address [address] [place] [address]. [place], [place] [address] [place] [address] Care Team Providers Care Civil Division Commander Deputy Sheriff Name Role Phone Sergo Mackey MD Primary Care Provider Julian short Encounter Details Date Type Department Care Team (Latest Contact Info) Description 06/18/2017 Abstract [facility] Social [...] on filedocumented in this encounter Care Teams Civil Division Commander Deputy Sheriff Relationship Specialty Start Date End Date Sergo Mackey MD PCP - General 04/07/17 documented as of this encounter
--- OUTSIDE RECORDS SUMMARY | 2024-11-12 14:02 | XMS_ITS | Encounter Summary ---
Author Organization [facility] Address [address] [place] [address]. [place], [place] [address] [place] [address] Care Team Providers Care Confidential Secretary Name Role Phone Sergo Mackey MD Primary Care Provider Julian short Encounter Details Date Type Department Care Team (Latest Contact Info) Description 08/30/2017 Abstract [facility] Social [...] on filedocumented in this encounter Care Teams Confidential Secretary Relationship Specialty Start Date End Date Sergo Mackey MD PCP - General 04/07/17 documented as of this encounter
--- OUTSIDE RECORDS SUMMARY | 2024-11-12 14:02 | XMS_ITS | Encounter Summary ---
Author Organization [facility] Address [address] [place] [address]. [place], [place] [address] [place] [address] Care Team Providers Care Tooth Cutter Pinion Name Role Phone Sergo Mackey MD Primary Care Provider Julian short Encounter Details Date Type Department Care Team (Latest Contact Info) Description 09/07/2017 Abstract [facility] [...] on filedocumented in this encounter Care Teams Tooth Cutter Pinion Relationship Specialty Start Date End Date Sergo Mackey MD PCP - General 04/07/17 documented as of this encounter
--- OUTSIDE RECORDS SUMMARY | 2024-11-12 14:02 | XMS_ITS | Encounter Summary ---
Author Organization [facility] Address [address] [place] [address]. [place], [place] [address] [place] [address] Care Team Providers Care Primary Therapist Name Role Phone Sergo Mackey MD Primary Care Provider Julian short Encounter Details Date Type Department Care Team (Latest Contact Info) Description 09/02/2017 Abstract [facility] Social History Tobacco [...] on filedocumented in this encounter Care Teams Primary Therapist Relationship Specialty Start Date End Date Sergo Mackey MD PCP - General 04/07/17 documented as of this encounter
--- OUTSIDE RECORDS SUMMARY | 2024-11-12 14:02 | XMS_ITS | Encounter Summary ---
Author Organization [facility] Address [address] [place] [address]. [place], [place] [address] [place] [address] Care Team Providers Care Reinstatement Clerk Name Role Phone Sergo Mackey MD Primary Care Provider Julian short Encounter Details Date Type Department Care Team (Latest Contact Info) Description 09/06/2018 Scan [facility] James Luther MD Social [...] on filedocumented in this encounter Care Teams Reinstatement Clerk Relationship Specialty Start Date End Date Sergo Mackey MD PCP - General 04/07/17 documented as of this encounter
--- OUTSIDE RECORDS SUMMARY | 2024-11-12 14:02 | XMS_ITS | Encounter Summary ---
Author Organization [facility] Address [address] [place] [address]. [place], [place] [address] [place] [address] Care Team Providers Care Insulation Applicator Name Role Phone Sergo Mackey MD Primary Care Provider Julian short Encounter Details Date Type Department Care Team (Latest Contact Info) Description 06/08/2017 Abstract [facility] [...] on filedocumented in this encounter Care Teams Insulation Applicator Relationship Specialty Start Date End Date Sergo Mackey MD PCP - General 04/07/17 documented as of this encounter
--- OUTSIDE RECORDS SUMMARY | 2024-11-12 14:02 | XMS_ITS | Encounter Summary ---
Author Organization [facility] Address [address] [place] [address]. [place], [place] [address] [place] [address] Care Team Providers Care Electromechanic Name Role Phone Sergo Mackey MD Primary Care Provider Julian short Encounter Details Date Type Department Care Team (Latest Contact Info) Description 08/10/2017 Abstract [facility] [...] on filedocumented in this encounter Care Teams Electromechanic Relationship Specialty Start Date End Date Sergo Mackey MD PCP - General 04/07/17 documented as of this encounter
--- OUTSIDE RECORDS SUMMARY | 2024-11-12 14:02 | XMS_ITS | Encounter Summary ---
Author Organization [facility] Address [facility] access hospital[facility] [place] [address] [place] [address] Care Team Providers Care Color Matcher Name Role Phone Sergo Mackey MD Primary Care Provider Julian short Encounter Details Date Type Department Care Team (Late st Contact Info) Description 07/06/2017 Abstract [facility] Family & Internal Medicine [address] [address] Sergo Mackey MD Social History [...] NEEDED; Therapy: 10Sep2016 to (Evaluate:01Feb2017) Requested for: [id number]; Last Rx:[id number] Ordered Rx By: Sergo Mackey; Dispense: 30 Days ; #:90 Tablet; Refill: 1; For: Bipolar mood disorder; JULIANA = N; Print Rx 2. Fluticasone Propionate 50 MCG/ACT Nasal Suspension; USE 2 SPRAYS IEN QD; Therapy: [id number] to (Evaluate:15Apr2017) Requested for: [id number]; Last Rx:[id number] Ordered Rx By: Sergo Mackey; Dispense: 30 Days ; #:1 X 16 GM Bottle; Refill: 0; For: Allergic rhinitis;JULIANA = N; Verified Transmission to [facility] [address]; Last Updated By: Dayron Rae;03/16/2017 3:38:23 PM Allergies 1. 12 Hour Decongestant TB12 Recorded By: Shirley Zhang; 04/10/2014 3:10:36 PM Vitals Recorded: [id number] 02:18PM Heart Rate 117 Respiration 16 Systolic [...] generalized; JULIANA = N; Verified Transmission to [facility] [id number]; Last Updated By: Dayron Rae; 07/06/2017 2:59:43 PM 2. MRI C SPINE W/O; Status:Need Information - Financial Authorization; Requested for:[id number]; Perform:Other Radiology; Due:05Aug2017; Last Updated By:Carmela Haynes; 07/06/2017 3:06:15 PM;Ordered; For:Frequent falls, Labile blood pressure, Neck pain, Tremor, Weakness generalized; Ordered By:Sergo Mackey; [facility] 3. MRI L SPINE W/O; Status:Need Information - Financial Authorization; Requested for:[id number]; Perform:Other Radiology; Due:05Aug2017; Last Updated By:Fariba Garvey; [...] Status:Hold For - Manual Activation; Requested for:06Jul2017; Perform:[facility]; Due:05Aug2017; Last Updated By:Fariba Garvey; 07/06/2017 2:59:16 PM;Ordered; For:Frequent falls, Labile blood pressure, Neck pain, Tremor, Weakness generalized; Ordered By:Sergo Mackey; 6. Vitamin D 25 - Hydroxy; Status:Hold For - Manual Activation; Requested for:06Jul2017; Perform:[facility]; Due:05Aug2017; Last Updated By:Fariba Garvey; 07/06/2017 2:59:16 PM;Ordered; For:Frequent falls, Labile blood pressure, Neck pain, Tremor, Weakness generalized; Ordered By:Sergo Mackey; She understands I will have exhausted my input into her chronic symptoms after these tests are performed. She'll need followup with her neurologist and line construction engineer for further direction. Signatures Electronically signed by : Sergo Mackey M.D.; Jul 07 2017 5:33AM VP LEGAL AFFAIRS (Author) documented in this encounter Plan of Treatment Not on file documented as of this encounter Visit Diagnoses Not on filedocumented in this encounter Care Teams Color Matcher Relationship Specialty Start Date End Date Srego Mackey MD PCP - General 04/07/17 documented as of this encounter
--- OUTSIDE RECORDS SUMMARY | 2024-11-12 14:02 | XMS_ITS | Encounter Summary ---
Author Organization [facility] Address [address] [place] [address]. [place], [place] [address] [place] [address] Care Team Providers Care Cash Management Coordinator Name Role Phone Sergo Mackey MD Primary Care Provider Julian short Encounter Details Date Type Department Care Team (Latest Contact Info) Description 08/10/2018 Abstract [facility] James Luther MD Social [...] on filedocumented in this encounter Care Teams Cash Management Coordinator Relationship Specialty Start Date End Date Sergo Mackey MD PCP - General 04/07/17 documented as of this encounter
--- OUTSIDE RECORDS SUMMARY | 2024-11-12 14:02 | XMS_ITS | Encounter Summary ---
Author Organization [facility] Address [address] [place] [address]. [place], [place] [address] [place] [address] Care Team Providers Care Drug Room Operator Name Role Phone Sergo Mackey MD Primary Care Provider Julian short Encounter Details Date Type Department Care Team (Latest Contact Info) Description 07/13/2017 Abstract [facility] Sergo [...] D deficiency has been defined by the [place] of Medicine and an Endocrine Society practice guideline as a level of serum 25-OH vitamin D less than 20 ng/mL (1,2). The Endocrine Society went on to further define vitamin D insufficiency as a level between 21 and 29 ng/mL (2). 1. IOM ([place] of Medicine). 2010. Dietary reference ?? intakes for calcium and D. [place]: The ?? National fitogram Press. 2. Brian MF, Cam PARKINSON, Nereyda [...] on filedocumented in this encounter Care Teams Drug Room Operator Relationship Specialty Start Date End Date Sergo Mackey MD PCP - General 04/07/17 documented as of this encounter
--- OUTSIDE RECORDS SUMMARY | 2024-11-12 14:02 | XMS_ITS | Encounter Summary ---
Author Organization [facility] Address [address] [place] [address]. [place] [address] [place] [address] Care Team Providers Care Case Liner Name Role Phone Sergo Mackey MD Primary Care Provider Julian short Encounter Details Date Type Department Care Team (Latest Contact Info) Description 04/21/2017 Abstract [facility] Medical Group Social History Tobacco Use Types [...] Task Name: Follow Up Assigned To: [facility] [place] Narendra Regarding Patient: Alia Fabian, Status: [...] Fariba Garvey MA; Apr 21 2017 12:19PM VENDOR REPRESENTATIVES (Author) * James Pineda Md, MD - 04/21/2017 12:19 PM CDT Message Recorded as Task Date: 04/16/2017 02:39 PM, Created By: Carmela Haynes Task Name: Medical Complaint Callback Assigned To: [facility] Team Narendra Regarding Patient: Alia Fabian, Status: In Progress Comment: Carmela Haynes - 16 Apr 2017 2:39 PM TASK CREATED Caller: Lay, Parent; (Day); Lay (patients mother) calling about the Results of CT done at [place] on 04/12/17. CB# [phone] or [phone] Jovanni Omalley - 16 Apr 2017 3:09 PM TASK EDITED mother informed we do not have results yet Message: patient notified -sjs Signatures Electronically signed by : Fariba Garvey MA; Apr 21 2017 12:19PM VENDOR REPRESENTATIVES (Author) documented in this encounter Plan of Treatment Not on file documented as of this encounter Visit Diagnoses Not on filedocumented in this encounter Care Teams Case Liner Relationship Specialty Start Date End Date Sergo Mackey MD PCP - General 04/07/17 documented as of this encounter
--- OUTSIDE RECORDS SUMMARY | 2024-11-12 14:03 | XMS_ITS | Encounter Summary ---
Author Organization [facility] Address [facility] [place] [address] [place] [address] Care Team Providers Care Webbing Seamer Pound Net Name Role Phone Sergo Mackey MD Primary Care Provider Sergo Duncan MD Primary Care Provider Julian short Encounter Details Date Type Department Care Team (Latest Contact Info) Description 03/22/2017 Abstract [facility] Medical Group [...] Mackey Task Name: Follow Up Assigned To: [facility] [place] Narendra Regarding Patient: Alia Fabian, Status: In Progress Comment: Sergo Mackey - 19 Mar 2017 8:53 AM TASK CREATED Our routine labs (cbc, cmp, tsh) are all good/normal. Await lab results from guitar player. Fariba Garvey - 19 Mar 2017 8:55 AM TASK IN PROGRESS Fariba Garvey - 19 Mar 2017 8:56 AM TASK EDITED [id number] Jovanni Omalley - 22 Mar 2017 2:38 PM TASK EDITED pt informed and voiced understanding Signatures Electronically signed by : Jovanni Omalley MA; Mar 22 2017 2:38PM GLOVE TAGGER (Author) documented in this encounter Plan of Treatment Not on file documented as of this encounter Visit Diagnoses Not on filedocumented in this encounter Care Teams Webbing Seamer Pound Net Relationship Specialty Start Date End Date Sergo Mackey MD PCP - General 04/07/17 Sergo Mackey MD PCP - General 08/05/16 04/06/17 documented as of this encounter
--- OUTSIDE RECORDS SUMMARY | 2024-11-12 14:03 | XMS_ITS | Encounter Summary ---
Author Organization [facility] Address [address] [place] [address]. [place], [place] [address] [place] [address] Care Team Providers Care Food Preparation Worker Name Role Phone Sergo Mackey MD Primary Care Provider Sergo Duncan MD Primary Care Provider Julian short Encounter Details Date Type Department Care Team (Latest Contact Info) Description 08/06/2016 Abstract [facility] Medical Group , James Pineda [...] Task Name: Medical Complaint Callback Assigned To: [facility] Nurse Team Regarding Patient: Alia Fabian, Status: [...] Eloisa Wolfe R.N.; Aug 06 2016 1:30PM CLINICAL SPECIALIST MEDICAL DEVICE (Author) documented in this encounter Plan of Treatment Not on file documented as of this encounter Visit Diagnoses Not on filedocumented in this encounter Care Teams Food Preparation Worker Relationship Specialty Start Date End Date Sergo Mackey MD PCP - General 04/07/17 Sergo Mackey MD PCP - General 08/05/16 04/06/17 documented as of this encounter
--- OUTSIDE RECORDS SUMMARY | 2024-11-12 14:03 | XMS_ITS | Encounter Summary ---
Author Organization [facility] Address [address] [place] [address]. [place] [address] [place] [address] Care Team Providers Care Scientific Helper Name Role Phone Sergo Mackey MD Primary Care Provider Julian short Encounter Details Date Type Department Care Team (Late st Contact Info) Description 04/07/2017 Abstract [facility] [place] [address] Sergo Mackey MD Social History [...] URINE CLEAN CATCH 04/07/2017 5:[address] [facility] COLOR (U) YELLOW 04/07/2017 8:[address] [facility] TRANSPARENCY CLOUDY 04/07/2017 8:[address] [facility] SPECIFIC GRAVITY (U) 1.026 1.001 - 1.030 04/07/2017 8:[address] [facility] U PH 6.0 5.0 - 9.0 04/07/2017 8:[address] [facility] LEUKOCYTES (U) NEGATIVE NEGATIVE 04/07/2017 8:[address] [facility] NITRITES NEGATIVE NEGATIVE 04/07/2017 8:[address] [facility] PROTEIN (U) NEGATIVE <30 MG/DL 04/07/2017 8:[address] [facility] URINE GLUCOSE NEGATIVE NEGATIVE MG/DL 04/07/2017 8:[address] [facility] KETONES MG/DL (U) NEGATIVE NEGATIVE MG/DL 04/07/2017 8:[address] [facility] UROBILINOGEN 2.0(A) NEGATIVE MG/DL 04/07/2017 8:[address] [facility] BILIRUBIN (U) NEGATIVE NEGATIVE MG/DL 04/07/2017 8:[address] [facility] BLOOD (U) NEGATIVE NEGATIVE 04/07/2017 8:[address] [facility] SQUAMOUS EPITHELIALS MANY /LPF 04/07/2017 8:[address] [facility] MUCUS RARE /LPF 04/07/2017 8:[address] [facility] WBC/HPF 1 <6 /HPF 04/07/2017 8:[address] [facility] RBC/HPF 3 <6 /HPF 04/07/2017 8:[address] [facility] 04/07/2017 8:54 AM CDT 04/07/2017 6:22 PM CDT us Generic Conversion Md JOHNSON URINE ORDERABLES Final Result [facility] [address] [place] [address], [place] [phone] * CULTURE URINE (04/07/2017 8:54 AM CDT) SPEC DESCRIPTION URINE CLEAN CATCH 04/07/2017 5:[address] [facility] SPECIAL REQUESTS NO SPECIAL REQUEST 04/07/2017 5:[address] [facility] CULTURE RESULT POLYMICROBIAL GROWTH CONSISTENT WITH NORMAL GENITAL NIKHIL. ?? SUSCEPTIBILITIES NOT ROUTINELY PERFORMED. 04/10/2017 10:[address] [facility] URINE SPECIMEN OBTAINED BY CLEAN CATCH PROCEDURE / Unknown 04/07/2017 8:54 AM CDT 04/07/2017 6:21 PM CDT us Generic Conversion Md JOHNSON MICROBIOLOGY - GENERAL ORDERABLES Final Result [facility] [address] [place] [address], documented in this encounter Visit Diagnoses Diagnosis Dysuria documented in this encounter Care Teams Scientific Helper Relationship Specialty Start Date End Date Sergo Mackey MD PCP - General 04/07/17 documented as of this encounter
--- OUTSIDE RECORDS SUMMARY | 2024-11-12 14:03 | XMS_ITS | Encounter Summary ---
Author Organization [facility] Address [address] [place] [address]. [place], [place] [address] [place] [address] Care Team Providers Care Assistant Prosecuting Attorney Name Role Phone Sergo Mackey MD Primary Care Provider Sergo Duncan MD Primary Care Provider Julian short Encounter Details Date Type Department Care Team (Latest Contact Info) Description 12/08/2016 Abstract [facility] Medical Group Sergo Mackey MD Social [...] DISEASE COMP PANEL Routine 12/08/2016 10:52 AM METAL ROASTER COMPREHENSIVE METABOLIC PANEL Routine 12/08/2016 10:52 AM METAL ROASTER CBC W/DIFF AUTOMATED Routine 12/08/2016 10:52 AM METAL ROASTER documented in this encounter Results * CELIAC DISEASE COMP PANEL (QST) (12/08/2016 10:52 AM METAL ROASTER) INTERPRETATION see note [facility] OUP TO EPIC [...] CONVERSION Comment: Result Comment: Test Performed at: [facility]/[address] ? SHARI ODOM MD,PHD 12/08/2016 10:5 2 AM METAL ROASTER 12/08/2016 10:52 AM METAL ROASTER Narrative [facility] TO EPIC CONVERSION - 12/08/2016 10:58 AM METAL ROASTER Result Communication: No patient communication needed at this time Sergo Mackey MD LABORATORY Final Result [facility] TO EPIC CONVERSION * COMPREHENSIVE METABOLIC PANEL (12/08/2016 10:52 AM METAL ROASTER) GLUCOSE 99 65 - 99 mg/dL [facility] [...] CONVERSION Comment: Result Comment: Test Performed at: [facility] [address] [place] [address] ??[phone] ? KALI HENDRICKS DO,MPH 12/08/2016 10:5 2 AM METAL ROASTER 12/08/2016 10:52 AM METAL ROASTER Narrative [facility] TO EPIC CONVERSION - 12/08/2016 10:58 AM METAL ROASTER Result Communication: No patient communication needed at this time Sergo Mackey MD LABORATORY Final Result [facility] TO EPIC CONVERSION * CBC W/DIFF AUTOMATED (12/08/2016 10:52 AM METAL ROASTER) Pathologist [facility] WBC 7.4 3.8 - 10.8 [facility] TO [...] DRAW FEE 2ND ORDER,PT REFUSED SIMILAR TESTING [id number] REQ FASTING:YES PATIENT REFUSED SOME TESTING; PATIENT ENCOURAGED Test Performed at: [facility] [address] ??[phone] ? KALI HENDRICKS DO,MPH 12/08/2016 10:5 2 AM METAL ROASTER 12/08/2016 10:52 AM METAL ROASTER Narrative [facility] TO EPIC CONVERSION - 12/08/2016 10:58 AM METAL ROASTER Result Communication: Call patient with results Sergo Mackey MD LABORATORY Final Result [facility] TO EPIC CONVERSION documented in this encounter Visit Diagnoses Not on filedocumented in this encounter Care Teams Assistant Prosecuting Attorney Relationship Specialty Start Date End Date Sergo Mackey MD PCP - General 04/07/17 Sergo Mackey MD PCP - General 08/05/16 04/06/17 documented as of this encounter
--- OUTSIDE RECORDS SUMMARY | 2024-11-12 14:03 | XMS_ITS | Encounter Summary ---
Author Organization [facility] Address [facility]6 [facility]. [address] [place] [address] Care Team Providers Care Candle Wrapper Name Role Phone Sergo Mackey MD Primary Care Provider Sergo Duncan MD Primary Care Provider Julian short Encounter Details Date Type Department Care Team (Latest Contact Info) Description 12/09/2016 Abstract [facility] Medical Group Social History Tobacco [...] Task Name: Follow Up Assigned To: [facility] Team Narendra Regarding Patient: Alia Fabian, Status: In Progress Comment: Sergo Mackey - 09 Dec 2016 10:04 AM TASK CREATED Ultrasound of the liver, gallbladder and surrounding structures was good/normal. We can have her see a bridge worker apprentice if she is continuing to have stomach symptoms. Fariba Garvey - 09 Dec 2016 10:27 AM TASK IN PROGRESS Message: Patient notified and already sees GI-sjs Signatures Electronically signed by : Fariba Garvey MA; Dec 09 2016 10:28AM PHARMACY STUDENT (Author) documented in this encounter Plan of Treatment Not on file documented as of this encounter Visit Diagnoses Not on filedocumented in this encounter Care Teams Candle Wrapper Relationship Specialty Start Date End Date Sergo Mackey MD PCP - General 04/07/17 Sergo Mackey MD PCP - General 08/05/16 04/06/17 documented as of this encounter
--- OUTSIDE RECORDS SUMMARY | 2024-11-12 14:03 | XMS_ITS | Encounter Summary ---
Author Organization [facility] Address [address] [place] [address]. [place], [place] [address] [place] [address] Care Team Providers Care Synthetic Chemist Name Role Phone Sergo Mackey MD Primary Care Provider Sergo Duncan MD Primary Care Provider Julian short Encounter Details Date Type Department Care Team (Latest Contact Info) Description 10/14/2016 Abstract [facility] Medical [...] on filedocumented in this encounter Care Teams Synthetic Chemist Relationship Specialty Start Date End Date Sergo Mackey MD PCP - General 04/07/17 Sergo Mackey MD PCP - General 08/05/16 04/06/17 documented as of this encounter
--- OUTSIDE RECORDS SUMMARY | 2024-11-12 14:03 | XMS_ITS | Encounter Summary ---
Author Organization [facility] Address [address] [place] [address]. [place], [place] [address] [place] [address] Care Team Providers Care Photographic Double Name Role Phone Sergo Mackey MD Primary Care Provider Julian short Encounter Details Date Type Department Care Team (Latest Contact Info) Description 04/13/2017 Abstract [facility] Medical Group Social [...] on filedocumented in this encounter Care Teams Photographic Double Relationship Specialty Start Date End Date Sergo Mackey MD PCP - General 04/07/17 documented as of this encounter
--- OUTSIDE RECORDS SUMMARY | 2024-11-12 14:03 | XMS_ITS | Encounter Summary ---
Author Organization [facility] Address [facility] [place] [address] [place] [address] Care Team Providers Care Network Technical Analyst Name Role Phone Sergo Mackey MD Primary Care Provider Sergo Duncan MD Primary Care Provider Julian short Encounter Details Date Type Department Care Team (Late st Contact Info) Description 09/10/2016 Abstract [facility] Medical Group Family & Internal Medicine [address] [phone] Sergo Mackey MD Social History Tobacco Use [...] Comments Blood Pressure 118/78 09/10/2016 3:03 PM RENAL TECHNICIAN Pulse 86 09/10/2016 3:03 PM RENAL TECHNICIAN Temperature - - Respiratory Rate - - Oxygen Saturation - - Inhaled Oxygen Concentration - - Weight 121.2 kg (267 lb 4 oz) 09/10/2016 3:03 PM RENAL TECHNICIAN Height 172.7 cm (5' 8 ) 09/10/2016 3:03 PM RENAL TECHNICIAN Body Mass Index 40.64 09/10/2016 3:03 PM RENAL TECHNICIAN documented in this encounter Progress Notes [...] her knee locks several times. She takes [id number] Tylenol and this seems to be helpful. She was hospitalized back in July at [facility] for mental illness. She is trying to find to a psychiatrist that will accept her insurance. [facility]. [...] twice daily; Therapy: 13Aug2016 to (Evaluate:12Sep2016); Last Rx:[id number] Ordered Rx By: Nellie Moy; Dispense: 30 Days ; #:60 Capsule; Refill: 0; For: Abdominal cramping, generalized; JULIANA = N; Print Rx 2. Fluconazole 150 MG Oral Tablet; TAKE 1 TABLET Once PRN onset of symptoms may repeat dose in 72 hours for continued symptoms; Therapy: 05Aug2016 to (Evaluate:07Aug2016) Requested for: 05Aug2016; Last Rx:[id number] Ordered Rx By: Nellie Moy; Dispense: 2 Days ; #:2 Tablet; Refill: 0; For: Antibiotic-induced yeast infection; JULIANA = N; Verified Transmission to [facility]; Last Updated By: [employer]; 08/05/2016 11:47:13 AM 3. Metoprolol Tartrate 25 MG Oral Tablet; TAKE 1 TABLET TWICE DAILY; Therapy: 05Aug2016 to (Evaluate:[id number]) Requested for: 13Aug2016; Last Rx:[id number] Ordered Rx By: Nellie Moy; Dispense: 30 Days ; #:60 Tablet; Refill: 5; For: Palpitations; JULIANA = N; Verified Transmission to [facility]; Last Updated By: [employer]; 08/13/2016 3:19:40 PM Allergies 1. 12 Hour [...] Sergo Mackey M.D.; Sep 13 2016 2:48PM RENAL TECHNICIAN (Author) documented in this encounter Plan of Treatment Not on file documented as of this encounter Visit Diagnoses Not on filedocumented in this encounter Care Teams Network Technical Analyst Relationship Specialty Start Date End Date Sergo Mackey MD PCP - General 04/07/17 Sergo Mackey MD PCP - General 08/05/16 04/06/17 documented as of this encounter
--- OUTSIDE RECORDS SUMMARY | 2024-11-12 14:03 | XMS_ITS | Encounter Summary ---
Author Organization [facility] Address [facility] [place] [address] [place] [address] Care Team Providers Care Integrity Analyst Name Role Phone Sergo Mackey MD Primary Care Provider Sergo Duncan MD Primary Care Provider Julian short Encounter Details Date Type Department Care Team (Late st Contact Info) Description 10/20/2016 Abstract [facility] Medical Group Family & Internal Medicine [address] [phone] Sergo Mackey MD Social History Tobacco Use [...] URINE BACTERIA CULTURE Routine 10/20/2016 8:19 AM MUTUAL FUND ACCOUNTANT documented in this encounter Results * CULTURE URINE (10/20/2016 8:19 AM MUTUAL FUND ACCOUNTANT) CULTURE URINE Final report [facility] TO EPIC CONVERSION RESULT [facility] T O EPIC CONVERSION Comment: Result Comment: Mixed urogenital chapin Less than 10,000 colonies/mL 10/20/2016 8:19 AM MUTUAL FUND ACCOUNTANT 10/20/2016 8:19 AM MUTUAL FUND ACCOUNTANT Narrative [facility] TO EPIC CONVERSION - 10/22/2016 5:12 AM MUTUAL FUND ACCOUNTANT Result Communication: No patient communication needed at this time us Angeli DUNAWAY MICROBIOLOGY - GENERAL GREGORIO IBARRA Final Result [facility] TO EPIC CONVERSION documented in this encounter Visit Diagnoses Not on filedocumented in this encounter Care Teams Integrity Analyst Relationship Specialty Start Date End Date Sergo Mackey MD PCP - General 04/07/17 Sergo Mackey MD PCP - General 08/05/16 04/06/17 documented as of this encounter
--- OUTSIDE RECORDS SUMMARY | 2024-11-12 14:03 | XMS_ITS | Encounter Summary ---
Author Organization [facility] Address [address] [place] [address]. [place] [address] [place] [address] Care Team Providers Care Physician Chief Of Pathology Name Role Phone Sergo Mackey MD Primary Care Provider Sergo Duncan MD Primary Care Provider Julian short Encounter Details Date Type Department Care Team (Late st Contact Info) Description 08/05/2016 Abstract [facility] [place] [address] Nellie Moy FNP [address] [place] [address] Social History Tobacco Use Types [...] - 99 mg/dL 08/05/2016 8:27 PM CDT [facility] BUN 7(L) 8 - 23 mg/dL 08/05/2016 8:27 PM CDT [facility] CREATININE S/P/B 0.79 0.60 - 1.10 mg/dL 08/05/2016 8:27 PM CDT [facility] SODIUM S/P/B 139 136 - 145 mmol/L 08/05/2016 8:27 PM CDT [facility] POTASSIUM S/P/B 4.4 3.5 - 5.1 mmol/L 08/05/2016 8:27 PM CDT [facility] CHLORIDE S/P/B 99 98 - 107 mmol/L 08/05/2016 8:27 PM CDT [facility] CO2 26 22 - 29 mmol/L 08/05/2016 8:27 PM CDT [facility] BILIRUBIN TOTAL S/P/B 0.6 0.2 - 1.2 mg/dL 08/05/2016 8:27 PM CDT [facility] CALCIUM S/P/B 10.0 8.6 - 10.2 mg/dL 08/05/2016 8:27 PM CDT [facility] ALKALINE PHOSPHATASE S/P/B 60 35 - 104 U/L 08/05/2016 8:27 PM CDT [facility] AST 25 0 - 32 U/L 08/05/2016 8:27 PM CDT [facility] TOTAL PROTEIN S/P/B 7.4 6.4 - 8.3 g/dL 08/05/2016 8:27 PM CDT [facility] ALBUMIN S/P/B 4.6 3.5 - 5.2 g/dL 08/05/2016 8:27 PM CDT [facility] ALT 22 0 - 33 U/L 08/05/2016 8:27 PM T [facility] GLOBULIN 2.8 2.3 - 3.6 g/dL 08/05/2016 8:27 PM CDT [facility] A/G RATIO 1.6 1.0 - 2.0 08/05/2016 8:27 PM CDT [facility] ANION GAP 18 8 - 20 08/05/2016 8:27 PM CDT [facility] EGFR NON-AFR. AMER. >60 >60 mL/min/1.7 3m'2 08/05/2016 8:27 PM CDT [facility] EGFR AFR. AMER. >60 >60 mL/min/1.7 3m'2 08/05/2016 8:27 PM CDT [facility] Comment: NOTE: eGFR is not calculated for patients <18 years of age. This is an estimated GFR (CKD EPI) and should not be used for calculating drug doses. 08/05/2016 1:07 PM CDT 08/05/2016 7:46 PM CDT us Generic Conversion Md JOHNSON LABORATORY Final R esult [facility] [address] [place] [address], [place] [phone] * (ABNORMAL) CBC W/DIFF AUTOMATED (08/05/2016 1:07 PM CDT) WBC 8.0 4.8 - 10.8 X10'3/uL 08/05/2016 8:31 PM CDT [facility] RBC 4.72 4.20 - 5.40 X10'6/uL 08/05/2016 8:31 PM CDT [facility] HGB 13.9 12.0 - 16.0 g/dL 08/05/2016 8:31 PM CDT [facility] HCT 41.9 38.0 - 48.0 % 08/05/2016 8:31 PM CDT [facility] MCV 88.8 81.0 - 99.0 fL 08/05/2016 8:31 PM CDT [facility] MCH 29.4 27.0 - 31.0 pg 08/05/2016 8:31 PM CDT [facility] MCHC 33.2 32.0 - 36.0 g/dL 08/05/2016 8:31 PM CDT [facility] RDW 12.8 11.5 - 14.5 % 08/05/2016 8:31 PM CDT [facility] PLT 342 130 - 400 X10'3/uL 08/05/2016 8:31 PM CDT [facility] MPV 10.4 9.3 - 12.2 fL 08/05/2016 8:31 PM CDT [facility] DIFFERENTIAL TYPE AUTOMATED 08/05/2016 8:31 PM CDT [facility] NEUTROPHILS % 67.0(H) 43.0 - 65.0 % 08/05/2016 8:31 PM CDT [facility] LYMPHOCYTES % 22.6 20.0 - 46.0 % 08/05/2016 8:31 PM CDT [facility] MONOCYTES % 6.6 5.0 - 12.0 % 08/05/2016 8:31 PM CDT [facility] EOSINOPHILS 3.0 1.0 - 3.0 % 08/05/2016 8:31 PM CDT [facility] BASOPHILS 0.6 0.0 - 1.0 % 08/05/2016 8:31 PM CDT [facility] IMMATURE GRANS % 0.2 0.0 - 1.0 % 08/05/2016 8:31 PM CDT [facility] 08/05/2016 1:07 PM CDT 08/05/2016 7:46 PM CDT us Generic Conversion Md J[facility] Final R esult [facility] [address] [place] [address], documented in this encounter Visit Diagnoses Diagnosis Vomiting Vomiting alone documented in this encounter Care Teams Physician Chief Of Pathology Relationship Specialty Start Date End Date Sergo Mackey MD PCP - General 04/07/17 Sergo Mackey MD PCP - General 08/05/16 04/06/17 documented as of this encounter
--- OUTSIDE RECORDS SUMMARY | 2024-11-12 14:03 | XMS_ITS | Encounter Summary ---
Author Organization [facility] Address [address] [place] [address]. [place], [place] [address] [place] [address] Care Team Providers Care Specialist Wound Care Name Role Phone Sergo Mackey MD Primary Care Provider Julian short Encounter Details Date Type Department Care Team (Latest Contact Info) Description 04/11/2017 Abstract [facility] Medical Group [...] Bilirubin Negative Ketones 5 mg/dL-Trace A Specific [place] 1.020 Blood Negative pH 7.0 5.0 - [...] Eloisa Wolfe R.N.; Apr 12 2017 8:14AM LATENT PRINT EXAMINER (Author) documented in this encounter Plan of Treatment Not on file documented as of this encounter Visit Diagnoses Not on filedocumented in this encounter Care Teams Specialist Wound Care Relationship Specialty Start Date End Date eSrgo Mackey MD PCP - General 04/07/17 documented as of this encounter
--- OUTSIDE RECORDS SUMMARY | 2024-11-12 14:03 | XMS_ITS | Encounter Summary ---
Author Organization [facility] Address [address] [place] [address]. [place], [place] [address] [place] [address] Care Team Providers Care Driver License Technician Name Role Phone Sergo Mackey MD Primary Care Provider Sergo Duncan MD Primary Care Provider Julian short Encounter Details Date Type Department Care Team (Latest Contact Info) Description 08/18/2016 Abstract [facility] Medical Group Sergo Mackey MD Social History [...] filedocumented in this encounter Care Teams Driver License Technician Relationship Specialty Start Date End Date Sergo Mackey MD PCP - General 04/07/17 Sergo Mackey MD PCP - General 08/05/16 04/06/17 documented as of this encounter
--- OUTSIDE RECORDS SUMMARY | 2024-11-12 14:03 | XMS_ITS | Encounter Summary ---
Author Organization [facility] Address [address] [place] [address]. [place], [place] [address] [place] [address] Care Team Providers Care Ferry Captain Name Role Phone Sergo Mackey MD Primary Care Provider Sergo Duncan MD Primary Care Provider Julian short Encounter Details Date Type Department Care Team (Latest Contact Info) Description 08/07/2016 Abstract [facility] Medical Group Social History [...] on filedocumented in this encounter Care Teams Ferry Captain Relationship Specialty Start Date End Date Sergo Mackey MD PCP - General 04/07/17 Sergo Mackey MD PCP - General 08/05/16 04/06/17 documented as of this encounter
--- OUTSIDE RECORDS SUMMARY | 2024-11-12 14:03 | XMS_ITS | Encounter Summary ---
Author Organization [facility] Address [facility] [place] [address] [place] [address] Care Team Providers Care Chemical Dependency Professional Name Role Phone Sergo Mackey MD Primary Care Provider Sergo Duncan MD Primary Care Provider Julian short Encounter Details Date Type Department Care Team (Late st Contact Info) Description 08/05/2016 Abstract [facility] Medical Group Family & Internal Medicine - [place] [id number] [place] [address] Nellie Moy FNP [address] [place] [address] Social History Tobacco Use Types Packs/Day Years [...] Alia states that she was hospitalized at [facility] and for the last week she has [...] infection; JULIANA = N; Verified Transmission to [facility] 8[address]00; Last Updated By: [employer]; 08/05/2016 11:47:13 AM Bilateral otitis externa, Bilateral otitis media 2. Haqoapkw-Ttmiisbon-RC 3.5-85291-0 Otic Solution; INSTILL 3 DROPS IN BOTH EARS 3-4 TIMES DAILY Rx By: Nellie Moy; Dispense: 0 Days ; #:1 X 10 ML Bottle; Refill: 0; For: Bilateral otitis externa, Bilateral otitis media; JULIANA = N; Verified Transmission to [facility] 25481; Last Updated By: [employer]; 08/05/2016 11:47:12 AM 3. Recheck if symptoms [...] otitis media; JULIANA= N; Verified Transmission to [facility] 37450; Last Updated By: [employer]; 08/05/2016 11:47:13 AM Bipolar mood disorder, Panic [...] Status:In Progress - Specimen/Data Collected; Done: 05Aug2016 Perform:[facility]; Due:04Sep2016; Last Updated By:Angela Lal; 08/05/2016 1:07:55 PM;Ordered; For:Vomiting and diarrhea; Ordered By:Nellie Moy; 10. Compr Metabolic Prof ( CMP ); Status:In Progress - Specimen/Data Collected; Done: 05Aug2016 [facility]; Due:04Sep2016; Last Updated By:Angela Lal; 08/05/2016 1:07:55 PM;Ordered; For:Vomiting and diarrhea; Ordered By:Nellie Moy; 11. Drink plenty of fluids.; Status:Complete; Done: 05Aug2016 01:38PM Ordered; For:Vomiting and diarrhea; Ordered By:Nellie Moy; We will call you with your lab results Signatures Electronically signed by : Nellie Moy, ; Aug 05 2016 1:38PM PONY TRIMMER (Author) documented in this encounter Plan [...] communication needed at this time Nellie Moy TRANSITIONS MANAGER RN LABORATORY Final Result [facility] TO EPIC CONVERSION [...] on filedocumented in this encounter Care Teams Chemical Dependency Professional Relationship Specialty Start Date End Date Sergo Mackey MD PCP - General 04/07/17 Sergo Mackey MD PCP - General 08/05/16 04/06/17 documented as of this encounter
--- OUTSIDE RECORDS SUMMARY | 2024-11-12 14:03 | XMS_ITS | Encounter Summary ---
Author Organization [facility] Address [address] [place] [address]. [place], [place] [address] [place] [address] Care Team Providers Care Program Services Planner Name Role Phone Sergo Mackey MD Primary Care Provider Sergo Duncan MD Primary Care Provider Julian short Encounter Details Date Type Department Care Team (Latest Contact Info) Description 12/01/2016 Abstract [facility] Medical Group Social [...] on filedocumented in this encounter Care Teams Program Services Planner Relationship Specialty Start Date End Date Sergo Mackey MD PCP - General 04/07/17 Sergo Mackey MD PCP - General 08/05/16 04/06/17 documented as of this encounter
--- OUTSIDE RECORDS SUMMARY | 2024-11-12 14:03 | XMS_ITS | Encounter Summary ---
Author Organization [facility] Address [facility] [place] [address] [place] [address] Care Team Providers Care Human Resources Generalist Name Role Phone Sergo Mackey MD Primary Care Provider Sergo Duncan MD Primary Care Provider Julian short Encounter Details Date Type Department Care Team (Latest Contact Info) Description 02/04/2017 Abstract [facility] Medical Group Social [...] November and wants to reschedule it to [facility] instead. Apt is on 02-08-17. Plan 1. US KIDNEYS BI; Status:Hold For - Scheduling; Requested for:[id number]; Perform:[facility] Radiology; Due:[id number]; Last Updated By:Marcela Wilson; 02/04/2017 11:39:06 AM;Ordered; For:Hematuria, Urinary frequency; Ordered By:Angeli Wu; Signatures Electronically signed by : Marcela Wilson MA; Feb 04 2017 11:40AM TAX SENIOR ASSOCIATE (Author) documented in this encounter Plan of Treatment Not on file documented as of this encounter Visit Diagnoses Not on filedocumented in this encounter Care Teams Human Resources Generalist Relationship Specialty Start Date End Date Sergo Mcakey MD PCP - General 04/07/17 Sergo Mackey MD PCP - General 08/05/16 04/06/17 documented as of this encounter
--- OUTSIDE RECORDS SUMMARY | 2024-11-12 14:03 | XMS_ITS | Encounter Summary ---
Author Organization [facility] Address [facility]. [place], [place] [address] [place] [address] Care Team Providers Care It Sales Representative Name Role Phone Sergo Mackey MD Primary Care Provider Sergo Duncan MD Primary Care Provider Julian short Encounter Details Date Type Department Care Team (Latest Contact Info) Description 02/08/2017 Abstract [facility] Medical Group Angeli Wu, EMELYN [address] [address] Social History Tobacco Use [...] filedocumented in this encounter Care Teams It Sales Representative Relationship Specialty Start Date End Date Sergo Mackey MD PCP - General 04/07/17 Sergo Mackey MD PCP - General 08/05/16 04/06/17 documented as of this encounter
--- OUTSIDE RECORDS SUMMARY | 2024-11-12 14:03 | XMS_ITS | Encounter Summary ---
Author Organization [facility] Address [address] [place] [address]. [place], [place] [address] [place] [address] Care Team Providers Care Fisher Gill Net Name Role Phone Sergo Mackey MD Primary Care Provider Sergo Duncan MD Primary Care Provider Julian short Encounter Details Date Type Department Care Team (Latest Contact Info) Description 03/17/2017 Abstract [facility] Medical Group Sergo Mackey MD Social History [...] on filedocumented in this encounter Care Teams Fisher Gill Net Relationship Specialty Start Date End Date Sergo Mackey MD PCP - General 04/07/17 Sergo Mackey MD PCP - General 08/05/16 04/06/17 documented as of this encounter
--- OUTSIDE RECORDS SUMMARY | 2024-11-12 14:03 | XMS_ITS | Encounter Summary ---
Author Organization [facility] Address [address] [place] [address]. [place], [place] [address] [place] [address] Care Team Providers Care Food Service Manager Name Role Phone Sergo Mackey MD Primary Care Provider Sergo Duncan MD Primary Care Provider Julian short Encounter Details Date Type Department Care Team (Latest Contact Info) Description 03/15/2017 Abstract [facility] Medical Group Social [...] filedocumented in this encounter Care Teams Food Service Manager Relationship Specialty Start Date End Date Sergo Mackey MD PCP - General 04/07/17 Sergo Mackey MD PCP - General 08/05/16 04/06/17 documented as of this encounter
--- OUTSIDE RECORDS SUMMARY | 2024-11-12 14:03 | XMS_ITS | Encounter Summary ---
Author Organization [facility] Address [facility] [address] [place] [address] Care Team Providers Care Diamond Wheel Molder Name Role Phone Sergo Mackey MD Primary Care Provider Sergo Duncan MD Primary Care Provider Julian short Encounter Details Date Type Department Care Team (Late st Contact Info) Description 12/03/2016 Abstract [facility] Medical Group Family & Internal Medicine [address] [phone] Sergo Mackey MD Social History Tobacco Use [...] Comments Blood Pressure 126/80 12/03/2016 3:06 PM OSTEOPATHIC NEUROLOGIST Pulse 112 12/03/2016 3:06 PM OSTEOPATHIC NEUROLOGIST Temperature - - Respiratory Rate - - Oxygen Saturation - - Inhaled Oxygen Concentration - - Weight 127.9 kg (282 lb) 12/03/2016 3:06 PM OSTEOPATHIC NEUROLOGIST Height 172.7 cm (5' 8 ) 12/03/2016 3:06 PM OSTEOPATHIC NEUROLOGIST Body Mass Index 42.88 12/03/2016 3:06 PM OSTEOPATHIC NEUROLOGIST documented in this encounter Progress Notes * [...] PCOS and is following up with her GYM TEACHER. She is trying to get a second [...] BY MOUTH TWICE DAILY; Therapy: 13Aug2016 to (Evaluate:[id number]) Requested for: 21Sep2016; Last Rx:21Sep2016 Ordered Rx By: Nellie Moy; Dispense: 30 Days ; #:60 Capsule; Refill: 0; For: Abdominal cramping, generalized; JULIANA = N; Print Rx; Last Updated By: [employer]; 09/21/2016 8:25:38 AM 2. ClonazePAM 1 MG Oral Tablet; TAKE 1 TABLET BY MOUTH THREE TIMES DAILY NEEDED; Therapy: 10Sep2016 to (Evaluate:26Nov2016) Requested for: 27Oct2016; Last Rx:27Oct2016 Ordered Rx By: Sergo Mackey; Dispense: 30 Days ; #:90 TAB; Refill: 0; For: Bipolar mood disorder; JULIANA =N; Print Rx; Last Updated By: [employer]; 12/03/2016 3:33:49 PM 3. Metoprolol Tartrate 25 MG Oral Tablet; TAKE 1 TABLET TWICE DAILY; Therapy: 05Aug2016 to (Evaluate:[id number]) Requested for: 13Aug2016; Last Rx:13Aug2016 Ordered Rx By: Nellie Moy; Dispense: 30 Days ; #:60 Tablet; Refill: 5; For: Palpitations; JULIANA = N; Verified Transmission to [facility] 10607; Last Updated By: [employer]; 08/13/2016 3:19:40 PM Allergies 1. 12 Hour Decongestant TB12 Recorded By: Shirley Zhang; 04/10/2014 3:10:36 PM Vitals Recorded: 68Shp5839 03:06PM Heart Rate 112 Respiration 16 Systolic [...] Status:Hold For - Manual Activation; Requested for:03Dec2016; Perform:[facility]; Due:02Jan2017; Last Updated By:Fariba Garvey; 12/03/2016 3:28:37 PM;Ordered; For:Chronic diarrhea, Continuous RUQ abdominal pain, Hyperglycemia, PCOS (polycystic ovarian syndrome); Ordered By:Sergo Mackey; 4. Celiac Ab Evaluation; Status:Hold For - Manual Activation; Requested for:03Dec2016; Perform:[facility]; Due:02Jan2017; Last Updated By:Fariba Garvey; 12/03/2016 3:28:37 PM;Ordered; For:Chronic diarrhea, Continuous RUQ abdominal pain, Hyperglycemia, PCOS (polycystic ovarian syndrome); Ordered By:Sergo Mackey; 5. Compr Metabolic Prof ( CMP ); Status:Hold For - Manual Activation; Requested for:03Dec2016; Perform:[facility]; Due:02Jan2017; Last Updated By:Fariba Garvey; 12/03/2016 3:28:37 PM;Ordered; For:Chronic diarrhea, Continuous RUQ abdominal pain, Hyperglycemia, PCOS (polycystic ovarian syndrome); Ordered By:Sergo Mackey; 6. Free T4 ( Thyroxine ); Status:Hold For - Manual Activation; Requested for:03Dec2016; Perform:[facility]; Due:02Jan2017; Last Updated By:Fariba Garvey; 12/03/2016 3:28:37 PM;Ordered; For:Chronic diarrhea, Continuous RUQ abdominal pain, Hyperglycemia, PCOS (polycystic ovarian syndrome); Ordered By:Sergo Mackey; 7. Thyroid Stim Hormone ( TSH ); Status:Hold For - Manual Activation; Requested for:03Dec2016; Perform:[facility]; Due:02Jan2017; Last Updated By:Fariba Garvey; 12/03/2016 3:28:37 PM;Ordered; For:Chronic diarrhea, Continuous RUQ abdominal pain, Hyperglycemia, PCOS (polycystic ovarian syndrome); Ordered By:Sergo Mackey; F/U with Home Extension Agent as planned. US ABDOMEN LIMITED RUQ; Status:Hold [...] Sergo Mackey M.D.; Dec 07 2016 2:42AM OSTEOPATHIC NEUROLOGIST (Author) documented in this encounter Plan of Treatment Not on file documented as of this encounter Visit Diagnoses Not on filedocumented in this encounter Care Teams Diamond Wheel Molder Relationship Specialty Start Date End Date Sergo Mackey MD PCP - General 04/07/17 Sergo Mackey MD PCP - General 08/05/16 04/06/17 documented as of this encounter
--- OUTSIDE RECORDS SUMMARY | 2024-11-12 14:03 | XMS_ITS | Encounter Summary ---
Author Organization [facility] Address [address] [place] [address]. [place], [place] [address] [place] [address] Care Team Providers Care Report Analyst Name Role Phone Sergo Mackey MD Primary Care Provider Sergo Duncan MD Primary Care Provider Julian short Encounter Details Date Type Department Care Team (Latest Contact Info) Description 02/18/2017 Abstract [facility] Medical Group Social [...] on filedocumented in this encounter Care Teams Report Analyst Relationship Specialty Start Date End Date Sergo Mackey MD PCP - General 04/07/17 Sergo Mackey MD PCP - General 08/05/16 04/06/17 documented as of this encounter
--- OUTSIDE RECORDS SUMMARY | 2024-11-12 14:03 | XMS_ITS | Encounter Summary ---
Author Organization [facility] Address [address] [place] [address]. [place] [address] [place] [address] Care Team Providers Care Repair Supervisor Name Role Phone Sergo Mackey MD Primary Care Provider Sergo Duncan MD Primary Care Provider Julian short Encounter Details Date Type Department Care Team (Latest Contact Info) Description 12/14/2016 Abstract [facility] Medical Group Social History Tobacco [...] -елена Verified Results QU-CELIAC DISEASE COMPREHENSIVE PANEL [id number] 10:52AM Sergo Mackey Test Name Result Flag [...] A 171 mg/dL 81-463 Test Performed at: [facility]/[address] SHARI ODOM MD,PHD QU-COMPREHENSIVE METABOLIC PANEL [address] [id number] 10:52AM Sergo Mackey Test Name Result Flag Reference GLUCOSE 99 mg/dL 65-99 Fasting reference interval UREA NITROGEN (BUN) 9 mg/dL 7-25 CREATININE 0.59 mg/dL 0.50-1.10 eGFR NON-AFR. CHADIAN 128 > OR = 60 UNITS: mL/min/1.73m2 [...] ALT 16 U/L 6-29 Test Performed at: [facility] [address] [place] [address] KALI HENDRICKS DO,MPH QU-CBC ( INCLUDES DIFF/PLT ) 6399 [id number] 10:52AM Sergo Mackey Test Name Result Flag Reference WHITE BLOOD CELL COUNT 7.4 3.8-10.8 UNITS: Thousand/uL RED BLOOD CELL COUNT 4.76 Million/uL 3.80-5.10 HEMOGLOBIN 13.7 g/dL 11.7-15.5 HEMATOCRIT 41.4 % 35.0-45.0 MCV 86.8 fL 80.0-100.0 MCH 28.7 pg 27.0-33.0 MCHC 33.0 g/dL 32.0-36.0 RDW 13.2 % 11.0-15.0 PLATELET COUNT 313 140-400 UNITS: Thousand/uL MPV 8.1 fL 7.5-12.5 ABSOLUTE NEUTROPHILS 4721 cells/uL 9959-1113 ABSOLUTE LYMPHOCYTES 2220 cells/uL 850-3900 ABSOLUTE MONOCYTES 281 cells/uL 200-950 ABSOLUTE EOSINOPHILS 148 cells/uL 15-500 ABSOLUTE BASOPHILS 30 cells/uL 0-200 NEUTROPHILS 63.8 % LYMPHOCYTES 30.0 % MONOCYTES 3.8 % EOSINOPHILS 2.0 % BASOPHILS 0.4 % REPORT COMMENT: NO DRAW FEE 2ND ORDER,PT REFUSED SIMILAR TESTING [id number] REQ FASTING:YES PATIENT REFUSED SOME TESTING; PATIENT ENCOURAGED Test Performed at: [facility] [address] [place] [address] KALI HENDRICKS DO,MPH Discussion/Summary Labs all good/normal including screening for celiac disease. Signatures Electronically signed by : Eloisa Wolfe R.N.; Dec 14 2016 1:17PM JUNIOR MEDIA BUYER (Author) documented in this encounter Plan of Treatment Not on file documented as of this encounter Visit Diagnoses Not on filedocumented in this encounter Care Teams Repair Supervisor Relationship Specialty Start Date End Date Sergo Mackey MD PCP - General 04/07/17 Sergo Mackey MD PCP - General 08/05/16 04/06/17 documented as of this encounter
--- OUTSIDE RECORDS SUMMARY | 2024-11-12 14:03 | XMS_ITS | Encounter Summary ---
Author Organization [facility] Address [facility] [place] [address] [place] [address] Care Team Providers Care Gluing Machine Operator Automatic Name Role Phone Sergo Mackey MD Primary Care Provider Sergo Duncan MD Primary Care Provider Julian short Encounter Details Date Type Department Care Team (Late st Contact Info) Description 03/16/2017 Abstract [facility] Medical Group Family & Internal Medicine [address] [address] Sergo Mackey MD Social History Tobacco Use [...] labs done back in December with her SOLE RUFFER. She is interested in doing repeat labs. She claims she had a sleep apnea test but could not sleep because she had an anxiety attack. She also did have a heart monitor test, magnesium test and serotonin test with her energy infrastructure engineer along with a urine sample test. She [...] BY MOUTH TWICE DAILY; Therapy: 13Aug2016 to (Evaluate:[id number]) Requested for: 21Sep2016; Last Rx:21Sep2016 Ordered Rx By: Nellie Moy; Dispense: 30 Days ; #:60 Capsule; Refill: 0; For: Abdominal cramping, generalized; JULIANA = N; Print Rx; Last Updated By: [employer]; 09/21/2016 8:25:38 AM 2. ClonazePAM 1 MG [...] Shirley Zhang; 04/10/2014 3:10:36 PM Vitals Recorded: [id number] 03:23PM Temperature 98.7 F Heart Rate 103 [...] Allergic rhinitis;JULIANA = N; Verified Transmission to [facility] [address]; Last Updated By: [employer]W [employer];03/16/2017 3:38:23 PM Atypical chest pain, Fever, IBS (irritable bowel syndrome) 2. CBC W Differential; Status:Hold For - Manual Activation; Requested for:16Mar2017; Perform:[facility]; Due:15Apr2017; Last Updated By:Fariba Garvey; 03/16/2017 3:36:44 PM;Ordered; For:Atypical chest pain, Fever, IBS (irritable bowel syndrome); Ordered By:Sergo Mackey; 3. Compr Metabolic Prof ( CMP ); Status:Hold For - Manual Activation; Requested for:16Mar2017; Perform:[facility]; Due:15Apr2017; Last Updated By:Fariba Garvey; 03/16/2017 3:36:44 PM;Ordered; For:Atypical chest pain, Fever, IBS (irritable bowel syndrome); Ordered By:Sergo Mackey; 4. Free T4 ( Thyroxine ); Status:Hold For - Manual Activation; Requested for:16Mar2017; Perform:[facility]; Due:15Apr2017; Last Updated By:Fariba Garvey; 03/16/2017 3:36:44 PM;Ordered; For:Atypical chest pain, Fever, IBS (irritable bowel syndrome); Ordered By:Sergo Mackey; 5. Thyroid Stim Hormone ( TSH ); Status:Hold For - Manual Activation; Requested for:[id number]; Perform: [facility]; Due:41Skb1608; Last Updated By:Fariba Garvey; 03/16/2017 3:36:44 PM;Ordered; For:Atypical chest pain, Fever, IBS (irritable bowel syndrome); Ordered By:Sergo Mackey; She will continue her current medicines and specialty followup. Signatures Electronically signed by : Sergo Mackey M.D.; Mar 21 2017 10:10PM ASSEMBLER FOR PULLER OVER HAND (Author) documented in this encounter Plan of Treatment Not on file documented as of this encounter Visit Diagnoses Not on filedocumented in this encounter Care Teams Gluing Machine Operator Automatic Relationship Specialty Start Date End Date Sergo Mackey MD PCP - General 04/07/17 Sergo Mackey MD PCP - General 08/05/16 04/06/17 documented as of this encounter
--- OUTSIDE RECORDS SUMMARY | 2024-11-12 14:03 | XMS_ITS | Encounter Summary ---
Author Organization [facility] Address [facility]. [place], [place] [address] [place] [address] Care Team Providers Care Editor & Co Founder Name Role Phone Sergo Mackey MD Primary Care Provider Sergo Duncan MD Primary Care Provider Julian short Encounter Details Date Type Department Care Team (Latest Contact Info) Description 02/15/2017 Abstract [facility] Medical Group , James Pineda MD Social [...] Callback Assigned To: [facility] Narendra [...] her other us was normal...please advise. cb#: [phone] Sergo Mackey - 15 Feb 2017 4:36 [...] W; Status:Need Information - Financial Authorization; Requested for:[id number]; Perform:[facility] Radiology; Due:22Mwc1284; Last Updated By:Elsa Rivera; 02/15/2017 4:47:11 PM;Ordered; For:Abnormal ultrasound of abdomen; Ordered By:Sergo Mackey; Patient prefers [facility], liver stenosis found on US with urology Signatures Electronically signed by : Elsa Rivera, ; Feb 15 2017 4:47PM WATER SOFTENER INSTALLER (Author) * Rani Reardon MD - 02/15/2017 2:43 PM CDT Message Message: Patient was called and notified of her kidney u/s. Patient will notify her primary of the result of the liver steatosis. Signatures Electronically signed by : Rani Reardon, ; Feb 15 2017 2:45PM WATER SOFTENER INSTALLER (Author) documented in this encounter Plan of Treatment Not on file documented as of this encounter Visit Diagnoses Not on filedocumented in this encounter Care Teams Editor & Co Founder Relationship Specialty Start Date End Date Sergo Mackey MD PCP - General 04/07/17 Sergo Mackey MD PCP - General 08/05/16 04/06/17 documented as of this encounter
--- OUTSIDE RECORDS SUMMARY | 2024-11-12 14:03 | XMS_ITS | Encounter Summary ---
Author Organization [facility] - [facility] Address [address] [place] [address]. [place] [address] [place] [address] Care Team Providers Care Repertoire Manager Name Role Phone Sergo Mackey MD Primary Care Provider Sergo Duncan MD Primary Care Provider Julian short Encounter Details Date Type Department Care Team (Late st Contact Info) Description 10/19/2016 Abstract [facility] Medical [facility] [address] [facility], [address] [place] [address] Angeli Wu APNP [address] [address] Social History Tobacco Use Types [...] Comments Blood Pressure 138/78 10/19/2016 3:24 PM GLOST PLACER Pulse - - Temperature - - Respiratory Rate - - Oxygen Saturation - - Inhaled Oxygen Concentration - - Weight 121.1 kg (267 lb) 10/19/2016 3:24 PM GLOST PLACER Height 172.7 cm (5' 8 ) 10/19/2016 3:24 PM GLOST PLACER Body Mass Index 40.6 10/19/2016 3:24 PM GLOST PLACER documented in this encounter Progress Notes * [...] BY MOUTH TWICE DAILY; Therapy: 13Aug2016 to (Evaluate:[id number]) Requested for: 21Sep2016; Last Rx:[id number] Ordered Rx By: Nellie Moy; Dispense: 30 Days ; #:60 Capsule; Refill: 0; For: Abdominal cramping, generalized; JULIANA = N; Print Rx; Last Updated By: QBotix; 09/21/2016 8:25:38 AM 2. ClonazePAM 1 MG Oral Tablet; Take one tablet three times daily as needed prn; Therapy: 10Sep2016 to (Evaluate:[id number]); Last Rx:10Sep2016 Ordered Rx By: Sergo Mackey; [...] infection; JULIANA = N; Verified Transmission to [facility] Pet [id number]; Last Updated By: QBotix; 08/05/2016 11:47:13 AM 4. Metoprolol Tartrate 25 MG Oral Tablet; TAKE 1 TABLET TWICE DAILY; Therapy: 05Aug2016 to (Evaluate:[id number]) Requested for: 13Aug2016; Last Rx:13Aug2016 Ordered Rx By: Nellie Moy; Dispense: 30 Days ; #:60 Tablet; Refill: 5; For: Palpitations; JULIANA = N; Verified Transmission to [place] Pet [id number]; Last Updated By: Dayron Rae; 08/13/2016 3:19:40 PM 5. Propranolol HCl - 20 MG Oral Tablet; TK 1 T PO BID; Therapy: [id number] to Recorded Rx By: JESSICA BOWIE; Dispense: 30 Days ; #:60 TABS; Refill: 0; UJLIANA = N; Record; Last Updated By: Marcela [...] Normal. Results/Data *Urine dip auto In Office [id number] 03:25PM Angeli Wu Test Name Result Flag Reference Color Yellow Clarity Clear Glucose Negative Bilirubin Negative Ketones Negative Specific [place] 1.015 Blood 3+(Large) pH 6.5 5.0 - [...] Angeli Wu APN; Oct 19 2016 3:45PM GLOST PLACER (Author) documented in this encounter Plan of Treatment Not on file documented as of this encounter Procedures Procedure Name Priority Date/Time Associated Diagnosis Comments URINALYSIS AUTO DIP Routine 10/19/2016 3 :25 PM GLOST PLACER documented in this encounter Results * URINALYSIS AUTO DIP (10/19/2016 3:25 PM GLOST PLACER) COLOR (U) Yellow [facility] T O EPIC [...] OUP TO EPIC CONVERSION 10/19/2016 3:25 PM GLOST PLACER 10/19/2016 3:25 PM GLOST PLACER us Angeli Wu APNP URINE ORDERABLES Final Resu lt [facility] TO EPIC CONVERSION documented in this encounter Visit Diagnoses Not on filedocumented in this encounter Care Teams Repertoire Manager Relationship Specialty Start Date End Date Sergo Mackey MD PCP - General 04/07/17 Sergo Mackey MD PCP - General 08/05/16 04/06/17 documented as of this encounter
--- OUTSIDE RECORDS SUMMARY | 2024-11-12 14:03 | XMS_ITS | Encounter Summary ---
Author Organization [facility] Address [facility]. [place], [place] [address] [place] [address] Care Team Providers Care Brake Specialist Name Role Phone Sergo Mackey MD Primary Care Provider Sergo Duncan MD Primary Care Provider Julian short Encounter Details Date Type Department Care Team (Latest Contact Info) Description 10/22/2016 Abstract [facility] Medical Group Social History Tobacco Use Types [...] Task Name: Medical Complaint Callback Assigned To: [facility] Narendra Regarding Patient: Alia Fabian, Status: Active Comment: Jaclyn Santana - 22 Oct 2016 3:43 PM TASK CREATED Caller: Self; Medical Complaint; Pt stated that at 09/10/16 she talked to you about speaking with her ob Shanell Vale [phone] at [facility]'s [place] regarding her being able to use prestrogen with her blood pressure. Asking if this has been done. Sergo Mackey - 22 Oct 2016 5:09 PM TASK REASSIGNED: Previously Assigned To Serog Mackey Med list has both propranolol and metoprolol included. She should be on one or the other. I'm not sure if Machine Joint Cutter wanted to start a progestin contraceptive but that would be fine if that is the plan. Message: PATIENT NOTIFIED -SJS Signatures Electronically signed by : Fariba Garvey MA; Oct 22 2016 5:17PM VENDING ENTERPRISES SUPERVISOR (Author) documented in this encounter Plan of Treatment Not on file documented as of this encounter Visit Diagnoses Not on filedocumented in this encounter Care Teams Brake Specialist Relationship Specialty Start Date End Date Sergo Mackey MD PCP - General 04/07/17 Sergo Mackey MD PCP - General 08/05/16 04/06/17 documented as of this encounter
--- OUTSIDE RECORDS SUMMARY | 2024-11-12 14:03 | XMS_ITS | Encounter Summary ---
Author Organization [facility] - [facility] Address [facility]6 [facility]. [place], [place] [address] [place] [address] Care Team Providers Care World Language Teacher Name Role Phone Sergo Mackey MD Primary Care Provider Sergo Duncan MD Primary Care Provider Julian short Encounter Details Date Type Department Care Team (Latest Contact Info) Description 11/20/2016 Abstract [facility] Medical Group Social [...] by:Fariba Garvey MA Nov 20 2016 12:01PM CHILD WELFARE WORKER Author documented in this encounter Plan of Treatment Not on file documented as of this encounter Visit Diagnoses Not on filedocumented in this encounter Care Teams World Language Teacher Relationship Specialty Start Date End Date Sergo Mackey MD PCP - General 04/07/17 Sergo Mackey MD PCP - General 08/05/16 04/06/17 documented as of this encounter
--- OUTSIDE RECORDS SUMMARY | 2024-11-12 14:03 | XMS_ITS | Encounter Summary ---
Author Organization [facility] Address [address] [place] [address]. [place], [place] [address] [place] [address] Care Team Providers Care Biometry Teacher Name Role Phone Sergo Mackey MD Primary Care Provider Sergo Duncan MD Primary Care Provider Julian short Encounter Details Date Type Department Care Team (Latest Contact Info) Description 08/10/2016 Abstract [facility] Medical Group [...] on filedocumented in this encounter Care Teams Biometry Teacher Relationship Specialty Start Date End Date Sergo Mackey MD PCP - General 04/07/17 Sergo Mackey MD PCP - General 08/05/16 04/06/17 documented as of this encounter
--- OUTSIDE RECORDS SUMMARY | 2024-11-12 14:03 | XMS_ITS | Encounter Summary ---
Author Organization [facility] Address [facility]6 [facility] [place] [address] [place] [address] Care Team Providers Care Microbiology Laboratory Manager Name Role Phone Sergo Mackey MD Primary Care Provider Julian short Encounter Details Date Type Department Care Team (Late st Contact Info) Description 04/07/2017 Abstract [facility] Medical Group Family & Internal Medicine [address] [address] Sergo Mackey MD Social History [...] BY MOUTH TWICE DAILY; Therapy: 13Aug2016 to (Evaluate:[id number]) Requested for: 21Sep2016; Last Rx:[id number] Ordered Rx By: Nellie Moy; Dispense: 30 Days ; #:60 Capsule; Refill: 0; For: Abdominal cramping, generalized; JULIANA = N; Print Rx; Last Updated By: ClaimSync; 09/21/2016 8:25:38 AM 2. ClonazePAM 1 MG Oral Tablet; TAKE 1 TABLET BY MOUTH THREE TIMES DAILY NEEDED; Therapy: 10Sep2016 to (Evaluate:01Feb2017) Requested for: [id number]; Last Rx:[id number] Ordered Rx By: Sergo Mackey; Dispense: 30 Days ; #:90 Tablet; Refill: 1; For: Bipolar mood disorder; JULIANA = N; Print Rx 3. Fluticasone Propionate 50 MCG/ACT Nasal Suspension; USE 2 SPRAYS IEN QD; Therapy: [id number] to (Evaluate:15Apr2017) Requested for: [id number]; Last Rx:[id number] Ordered Rx By: Sergo Mackey; Dispense: 30 Days ; #:1 X 16 GM Bottle; Refill: 0; For: Allergic rhinitis;JULIANA = N; Verified Transmission to [facility] [id number]; Last Updated By: ClaimSync;03/16/2017 3:38:23 PM Allergies 1. 12 Hour Decongestant [...] In Office; Status:Resulted - Requires Verification; Done: [id number] 12:00AM Last Updated By:Angela Lal; 04/11/2017 9:30:11 AM;Ordered; For:Dysuria; Ordered By:Sergo Mackey; Signatures Electronically signed by : Sergo Mackey M.D.; Apr 11 2017 5:12PM HOB GRINDER (Author) documented in this encounter Plan [...] Final Result Performing Organization Address [facility] de Phone Number [facility] TO EPIC CONVERSION [...] Final Result Performing Organization Address [facility] Co de Phone Number [facility] TO EPIC CONVERSION documented in this encounter Visit Diagnoses Not on filedocumented in this encounter Care Teams Microbiology Laboratory Manager Relationship Specialty Start Date End Date Sergo Mackey MD PCP - General 04/07/17 documented as of this encounter
--- OUTSIDE RECORDS SUMMARY | 2024-11-12 14:03 | XMS_ITS | Encounter Summary ---
Author Organization [facility] Address [facility]6 [facility] [place] [address] [place] [address] Care Team Providers Care Red Cross Executive Director Name Role Phone Sergo Mackey MD Primary Care Provider Sergo Duncan MD Primary Care Provider Julian short Encounter Details Date Type Department Care Team (Late st Contact Info) Description 10/06/2016 Abstract [facility] Medical Group Family & Internal Medicine [address] [place] [address] Nellie Moy FNP [address] [place] [address] Social History Tobacco Use Types Packs/Day Years [...] on filedocumented in this encounter Care Teams Red Cross Executive Director Relationship Specialty Start Date End Date Sergo Mackey MD PCP - General 04/07/17 Sergo Mackey MD PCP - General 08/05/16 04/06/17 documented as of this encounter
--- OUTSIDE RECORDS SUMMARY | 2024-11-12 14:03 | XMS_ITS | Encounter Summary ---
Author Organization [facility] Address [address] [place] [address]. [place], [place] [address] [place] [address] Care Team Providers Care Park Interpreter Name Role Phone Sergo Mackey MD Primary Care Provider Sergo Duncan MD Primary Care Provider Julian short Encounter Details Date Type Department Care Team (Latest Contact Info) Description 12/08/2016 Abstract [facility] Medical Group Sergo Mackey MD [...] on filedocumented in this encounter Care Teams Park Interpreter Relationship Specialty Start Date End Date Sergo Mackey MD PCP - General 04/07/17 Sergo Mackey MD PCP - General 08/05/16 04/06/17 documented as of this encounter
--- OUTSIDE RECORDS SUMMARY | 2024-11-12 14:03 | XMS_ITS | Encounter Summary ---
Author Organization [facility] Address [address] [place] [address]. [place], [place] [address] [place] [address] Care Team Providers Care Hooker Up Name Role Phone Sergo Mackey MD Primary Care Provider Sergo Duncan MD Primary Care Provider Julian short Encounter Details Date Type Department Care Team (Latest Contact Info) Description 08/20/2016 Abstract [facility] Medical Group Social [...] Task Name: Medical Complaint Callback Assigned To: [facility] Nurse Team Regarding Patient: Alia Fabian, Status: In Progress Comment: Nellie Moy - 20 Aug 2016 11:18 AM TASK CREATED Alia's head CT is normal . Elsa Rivera 20 Aug 2016 4:35 PM TASK IN PROGRESS Elsa Rivera 20 Aug 2016 4:36 PM TASK EDITED Patient informed//af Signatures Electronically signed by : Elsa Rivera, ; Aug 20 2016 4:36PM MACHINE PRINTER HOSE (Author) documented in this encounter Plan of Treatment Not on file documented as of this encounter Visit Diagnoses Not on filedocumented in this encounter Care Teams Hooker Up Relationship Specialty Start Date End Date Sergo Mackey MD PCP - General 04/07/17 Sergo Mackey MD PCP - General 08/05/16 04/06/17 documented as of this encounter
--- OUTSIDE RECORDS SUMMARY | 2024-11-12 14:03 | XMS_ITS | Encounter Summary ---
Author Organization [facility] - [facility] Address [address] [place] [address]. [place], [place] [address] [place] [address] Care Team Providers Care Tank Terminal Gauger Name Role Phone Sergo Mackey MD Primary Care Provider Julian short Encounter Details Date Type Department Care Team (Latest Contact Info) Description 04/08/2017 Abstract [facility] Medical Group Social [...] filedocumented in this encounter Care Teams Tank Terminal Gauger Relationship Specialty Start Date End Date Sergo Mackey MD PCP - General 04/07/17 documented as of this encounter
--- OUTSIDE RECORDS SUMMARY | 2024-11-12 14:03 | XMS_ITS | Encounter Summary ---
Author Organization [facility] Address [address] [place] [address]. [place] [address] [place] [address] Care Team Providers Care Library Science Professor Name Role Phone Sergo Mackey MD Primary Care Provider Sergo Duncan MD Primary Care Provider Julian short Encounter Details Date Type Department Care Team (Late st Contact Info) Description 08/13/2016 Abstract [facility] Medical Group Family & Internal Medicine [address] [place] [address] Nellie Moy FNP [address] [place] [address] Social History Tobacco Use Types Packs/Day Years [...] or a stroke while she was in [facility] for mental illness. She brought her blood [...] 05Aug2016 to (Evaluate:07Aug2016) Requested for: 05Aug2016; Last Rx:[id number] Ordered 2. Metoprolol Tartrate 25 MG Oral Tablet; TAKE 1 TABLET TWICE DAILY; Therapy: 05Aug2016 to (Evaluate:01Feb2017); Last Rx:[id number] Ordered Allergies 1. 12 Hour Decongestant TB12 [...] Palpitations; JULIANA = N; Verified Transmission to [facility] [id number]; Last Updated By: Dayron Rae; 08/13/2016 3:19:40 PM Signatures Electronically signed by : Nellie Moy, ; Aug 13 2016 5:15PM IT LEAD (Author) Electronically signed by : Sander Stewart M.D.; Aug 23 2016 9:18PM IT LEAD (Author) documented in this encounter Plan of Treatment Not on file documented as of this encounter Visit Diagnoses Not on filedocumented in this encounter Care Teams Library Science Professor Relationship Specialty Start Date End Date Sergo Mackey MD PCP - General 04/07/17 Sergo Mackey MD PCP - General 08/05/16 04/06/17 documented as of this encounter
--- OUTSIDE RECORDS SUMMARY | 2024-11-12 14:03 | XMS_ITS | Encounter Summary ---
Author Organization [facility] Address [address] [place] [address]. [place], [place] [address] [place] [address] Care Team Providers Care Funeral Service Licensee Name Role Phone Sergo Mackey MD Primary Care Provider Sergo Duncan MD Primary Care Provider Julian short Encounter Details Date Type Department Care Team (Latest Contact Info) Description 08/14/2016 Abstract [facility] Medical Group [...] on filedocumented in this encounter Care Teams Funeral Service Licensee Relationship Specialty Start Date End Date Sergo Mackey MD PCP - General 04/07/17 Sergo Mackey MD PCP - General 08/05/16 04/06/17 documented as of this encounter
--- OUTSIDE RECORDS SUMMARY | 2024-11-12 14:03 | XMS_ITS | Encounter Summary ---
Author Organization [facility] Address [address] [place] [address]. [place], [place] [address] [place] [address] Care Team Providers Care Car Head Liner Installer Name Role Phone Sergo Mackey MD Primary Care Provider Sergo Duncan MD Primary Care Provider Julian short Encounter Details Date Type Department Care Team (Latest Contact Info) Description 08/26/2016 Abstract [facility] Medical Group Social [...] on filedocumented in this encounter Care Teams Car Head Liner Installer Relationship Specialty Start Date End Date Sergo Mackey MD PCP - General 04/07/17 Sergo Mackey MD PCP - General 08/05/16 04/06/17 documented as of this encounter
--- OUTSIDE RECORDS SUMMARY | 2024-11-12 14:04 | XMS_ITS | Encounter Summary ---
Author Organization [facility] Address [facility]6 [facility]. [place], [place] [address] [place] [address] Care Team Providers Care Casing Flusher Name Role Phone Sergo Mackey MD Primary Care Provider Sergo Duncan MD Primary Care Provider Sergo Duncan MD Primary Care Provider Sergo Duncan MD Primary Care Provider eSrgo Duncan MD Primary Care Provider Julian short Encounter Details Date Type Department Care Team (Latest Contact Info) Description 06/16/2016 Abstract [facility] Medical Group Sergo Mackey MD Social History [...] W/DIFF AUTOMATED (06/16/2016 3:16 PM CDT) Pathologist [facility] WBC 8.9 4.8 - 10.8 X10'3/uL [facility] [...] on filedocumented in this encounter Care Teams Casing Flusher Relationship Specialty Start Date End Date Sergo Mackey MD PCP - General 04/07/17 Sergo Mackey MD PCP - General 08/05/16 04/06/17 Sergo Mackey MD PCP - General 07/16/16 08/04/16 Sergo Mackey MD PCP - General 07/14/16 07/15/16 Sergo Mackey MD PCP - General 06/16/16 07/13/16 documented as of this encounter
--- OUTSIDE RECORDS SUMMARY | 2024-11-12 14:04 | XMS_ITS | Encounter Summary ---
Author Organization [facility] Address [address] [place] [address]. [place], [place] [address] [place] [address] Care Team Providers Care Stand Grinder Name Role Phone Sergo Mackey MD Primary Care Provider Sergo Duncan MD Primary Care Provider Sergo Duncan MD Primary Care Provider Sergo Duncan MD Primary Care Provider Sergo Duncan MD Primary Care Provider Sagrariovaeliceo short Encounter Details Date Type Department Care Team (Latest Contact Info) Description 06/18/2016 Abstract [facility] Medical Group Social History Tobacco Use Types [...] Sanders Task Name: Call Back Assigned To: [facility] [place] [...] diagnosed with a UTI. Patient phone # [phone] Eloisa Wolfe - 18 Jun 2016 3:51 PM TASK IN PROGRESS Message: Pt updated-елена Signatures Electronically signed by : Eloisa Wolfe R.N.; Jun 18 2016 3:54PM DIAL EQUIPMENT ENGINEER (Author) documented in this encounter Plan of Treatment Not on file documented as of this encounter Visit Diagnoses Not on filedocumented in this encounter Care Teams Stand Grinder Relationship Specialty Start Date End Date Sergo Mackey MD PCP - General 04/07/17 Sergo Mackey MD PCP - General 08/05/16 04/06/17 Sergo Mackey MD PCP - General 07/16/16 08/04/16 Sergo Mackey MD PCP - General 07/14/16 07/15/16 Sergo Mackey MD PCP - General 06/16/16 07/13/16 documented as of this encounter
--- OUTSIDE RECORDS SUMMARY | 2024-11-12 14:04 | XMS_ITS | Encounter Summary ---
Author Organization [facility] - [facility] Address [facility] [place], [place] [address] [place] [address] Care Team Providers Care Digital Librarian Name Role Phone Sergo Mackey MD Primary Care Provider Sergo Duncan MD Primary Care Provider Sergo Duncan MD Primary Care Provider Sergo Duncan MD Primary Care Provider Sergo Duncan MD Primary Care Provider Julian short Encounter Details Date Type Department Care Team (Latest Contact Info) Description 06/19/2016 Abstract [facility] [...] comes in//af Verified Results CBC W Differential [id number] 03:16PM Sergo Mackey Test Name Result Flag [...] 0.0-1.0 Compr Metabolic Prof ( CMP ) [id number] 03:16PM Sergo Mackey Test Name Result Flag [...] mL/min/1.73m'2 Thyroid Stim Hormone ( TSH ) [id number] 03:16PM Sergo Mackey Test Name Result Flag Reference Thyroid Stim Hormone (TSH) 1.56 mIU/mL 0.27-4.20 Discussion/Summary Labs all good/normal. Was she able to get a list of meds she had tried in the past for her moods? Signatures Electronically signed by : Elsa Rivera, ; Jun 19 2016 12:12PM CARRIER ASSOCIATE (Author) documented in this encounter Plan of Treatment Not on file documented as of this encounter Visit Diagnoses Not on filedocumented in this encounter Care Teams Digital Librarian Relationship Specialty Start Date End Date Sergo Mackey MD PCP - General 04/07/17 Sergo Mackey MD PCP - General 08/05/16 04/06/17 Sergo Mackey MD PCP - General 07/16/16 08/04/16 Sergo Mackey MD PCP - General 07/14/16 07/15/16 Sergo Mackey MD PCP - General 06/16/16 07/13/16 documented as of this encounter
--- OUTSIDE RECORDS SUMMARY | 2024-11-12 14:04 | XMS_ITS | Encounter Summary ---
Author Organization [facility] Address [address] [place] [address]. [place], [place] [address] [place] [address] Care Team Providers Care Cotton Jammer Name Role Phone Sergo Mackey MD Primary Care Provider Sergo Duncan MD Primary Care Provider Sergo Duncan MD Primary Care Provider Sergo Duncan MD Primary Care Provider Julian short Encounter Details Date Type Department Care Team (Late st Contact Info) Description 07/14/2016 Abstract [facility] Medical Group Family & Internal Medicine [address] [phone] Sergo Mackey MD Social History [...] Mackey Task Name: Follow Up Assigned To: [facility] Team Narendra [...] 1:51 PM TASK REASSIGNED: Previously Assigned To [facility] Team Sergo Johnston [...] Fariba Garvey MA; Jul 14 2016 4:15PM RELATIONSHIP ASSOC (Author) * Sergo Mackey MD - 07/14/2016 1:15 PM CDT Reason For Visit Reason For Visit: Acute Visit Chief Complaint Patient c/o rapid and slow pulse, flushing, hot flashes, cold and clammy hands and feet, sharp dullpains in her head, frequent urination and fluctuating blood pressure. Was seen at [facility] for UTI 3 days ago. History of [...] reports she ended up going to the [facility] days ago complaining of flushing, [...] DAILY NEEDED ; Therapy: 10Apr2014 to (Last Rx:[id number]) Ordered Rx By: Sergo Mackey; Dispense: 0 [...] Glucose Negative Bilirubin Negative Ketones Negative Specific [place] 1.015 Blood Negative pH 6.5 Protein Negative Urobilinogen 0.2 E.U./dL Nitrites neg Leukocytes Trace Assessment 1. Urinary frequency (788.41) (R35.0) 2. Hypertension (401.9) (I10) 3. Flushing (782.62) (R23.2) 4. Chronic diarrhea (787.91) (K52.9) 5. Palpitations (785.1) (R00.2) Plan Abnormal urine finding, Leukocytes in urine 1. Urine Culture; Status:In Progress - Specimen/Data Collected; Done: 15Jul2016 Perform:[facility]; Due:14Aug2016; Last Updated By:Agnela Lal; 07/14/2016 2:48:48 PM;Ordered; For:Abnormal urine finding, Leukocytes in urine; Ordered By:Sergo Mackey; Source: : Clean Catch Chronic diarrhea, Flushing, Palpitations, Urinary frequency 2. Urine 5 - HIAA 24 Hr; Status:Hold For - Manual Activation; Requested for:14Jul2016; Perform:[facility]; Due:13Aug2016; Last Updated By:Angela Lal; 07/14/2016 2:38:00 PM;Ordered; For:Chronic diarrhea, Flushing, Palpitations, Urinary frequency; Ordered By:Sergo Mackey; 3. Urine Fract Catecholamine; Status:Hold For - Manual Activation; Requested for:[id number]; Perform:. [facility]; Due:13Aug2016; Last Updated By:Angela Lal; 07/14/2016 2:38:00 PM;Ordered; For:Chronic diarrhea, Flushing, Palpitations, Urinary frequency; Ordered By:Sergo Mackey; 4. Urine Metanephrines 24 Hr; Status:Hold For - Manual Activation; Requested for:[id number]; Perform:. [facility]; Due:13Aug2016; Last Updated By:Angela Lal; 07/14/2016 2:38:00 PM;Ordered; For:Chronic diarrhea, Flushing, Palpitations, Urinary frequency; Ordered By:Sergo Mackey; I will review her pharmacy records and look to start a new medicine for her mood disorder. Signatures Electronically signed by : Sergo Mackye M.D.; Jul 15 2016 8:57PM RELATIONSHIP ASSOC (Author) documented in this encounter Plan of [...] is recommended for confirmation. Test Performed by [facility], [address] [place] [address] Aaron Kennedy M.D., Ph.D., Director of Laboratories , CLIA [id number] VOLUME (U) 2525 ML MEDGROUP TO EPIC [...] 480 Unit: mcg/24 h Test Performed by [facility], [facility], [address] [place] [address] Aaron Kennedy M.D., Ph.D., Director of Laboratories , CLIA [id number] EPINEPHRINE (U) REPORT Results are below the [...] URINE ORDERABLES Final Result Performing Organization Address City/[facility] Co de Phone Number MEDGROUP [...] Final Result Performing Organization Address [facility] de Phone Number MEDGROUP TO EPIC [...] Final Result Performing Organization Address [facility] de Phone Number [employer] TO EPIC CONVERSION documented in this encounter Visit Diagnoses Not on filedocumented in this encounter Care Teams Cotton Jammer Relationship Specialty Start Date End Date Sergo Mackey MD PCP - General 04/07/17 Sergo Mackey MD PCP - General 08/05/16 04/06/17 Sergo Mackey MD PCP - General 07/16/16 08/04/16 Sergo Mackey MD PCP - General 07/14/16 07/15/16 documented as of this encounter
--- OUTSIDE RECORDS SUMMARY | 2024-11-12 14:04 | XMS_ITS | Encounter Summary ---
Author Organization [facility] Address [facility]. [place], [place] [address] [place] [address] Care Team Providers Care Wash Operator Name Role Phone Sergo Mackey MD Primary Care Provider Sergo Duncan MD Primary Care Provider eSrgo Duncan MD Primary Care Provider Sergo Duncan MD Primary Care Provider Julian labSergo Stratton MD Primary Care Provider [facility] Encounter Details Date Type Department Care Team (Latest Contact Info) Description 07/03/[address] [facility] Medical Group Social [...] on filedocumented in this encounter Care Teams Wash Operator Relationship Specialty Start Date End Date Sergo Mackey MD PCP - General 04/07/17 Sergo Mackey MD PCP - General 08/05/16 04/06/17 Sergo Mackey MD PCP - General 07/16/16 08/04/16 Sergo Mackey MD PCP - General 07/14/16 07/15/16 Sergo Mackey MD PCP - General 06/16/16 07/13/16 documented as of this encounter
--- OUTSIDE RECORDS SUMMARY | 2024-11-12 14:04 | XMS_ITS | Encounter Summary ---
Author Organization [facility] Address [address] [place] [address]. [place] [address] [place] [address] Care Team Providers Care Contact Agent Name Role Phone Sergo Mackey MD Primary Care Provider Sergo Duncan MD Primary Care Provider Sergo Duncan MD Primary Care Provider Julian short Encounter Details Date Type Department Care Team (Late st Contact Info) Description 07/16/2016 Abstract [facility] [place] [address] Sergo Mackey MD Social History [...] (U) 2525 ML 07/17/2016 8:34 AM CDT [facility] METANEPHRINE (U) 24 HR 70 25 - 222 mcg/24 h 07/22/2016 4:46 AM CDT [employer] BEST-CHANTI LLY NORMETANEPHRINE (U) 24 HRS 190 40 - 412 mcg/24 h 07/22/2016 4:46 AM CDT [employer] MARY TRUJILLORAMON ANA METANEPHRINES TOTAL (U) 260 94 - 604 mcg/24 h 07/22/2016 4:46 AM CDT [employer] LELE PEREZ Comment: A four fold elevation of urinary normetanephrines is extremely likely to be due to a tumor, while a four fold elevation of urinary metanephrines is highly suggestive, but not diagnostic of the tumor. Measurement of plasma Metanephrines and Chromogranin A is recommended for confirmation. Test Performed by [employer], [facility] [place], [id number] [place] [address] Aaron Kennedy M.D., Ph.D., Director of Laboratories , [place] [id number] 07/16/2016 3:35 PM CDT 07/17/2016 8:33 AM CDT us Generic Conversion Md JOHNSON URINE ORDERABLES Final Result Performing Organization Address City/[facility]/ZIP Co de Phone Number [employer] [facility]ASSANDRACHESTERStar [address] [place] [address], [place] [phone] [facility] [address] [place] [address], [place] [phone] * 5-HIAA URINE 24 HR (07/16/2016 3:35 PM CDT) VOLUME (U) 2525 ML 07/17/2016 8:33 AM CDT [facility] 5-HIAA 3.3 <=6.0 mg/24 h 07/22/2016 4:46 AM CDT [employer] BESTShannonCHESTER Graves 07/16/2016 3:35 PM CDT 07/17/2016 8:33 AM CDT us Generic Conversion Md JOHNSON URINE ORDERABLES Final Result [facility] [address] [place], [place] , [place] [phone] [facility] [address] [place] [address], [place] [phone] * CATECHOLAMINES URINE 24 HR (07/16/2016 3:35 PM CDT) VOLUME (U) 2525 ML 07/17/2016 8:32 AM CDT [facility] EPINEPHRINE (U) REPORT 6 3:42 AM CDT [employer] BEST-RAMON LLY Comment: Results are below the reportable range for this analyte, which is 2.0 mcg/L. NOREPINEPHRINE (U) 51 15 - 100 mcg/24 h 07/22/2016 3:42 AM CDT [employer] LELE PEREZ CATECHOLAMINE-URIN E TOTAL 51 26 - 121 mcg/24 h 07/22/2016 3:42 AM CDT [employer] LELE PEREZ DOPAMINE (U) 379 52 - 480 mcg/24 h 07/22/2016 3:42 AM CDT [employer] LELE PEREZ Comment: Test Performed by Sandie Zelaya [facility], [address] [place] [address] Aaron Kennedy M.D., Ph.D., Director of Laboratories , [facility] [id number] 07/16/2016 3:35 PM CDT 07/17/2016 8:32 AM CDT us Generic Conversion Md JOHNSON URINE ORDERABLES Final Result Performing Organization Address [facility]/ZIP Co de Phone Number [facility] [address] [place], [place] , [place] [phone] [facility] [address] [place] [address], [place] [phone] documented in this encounter Visit Diagnoses Diagnosis Noninfective gastroenteritis and colitis Other and unspecified noninfectious gastroenteritis and colitis documented in this encounter Care Teams Contact Agent Relationship Specialty Start Date End Date Sergo Mackey MD PCP - General 04/07/17 Sergo Mackey MD PCP - General 08/05/16 04/06/17 Sergo Mackey MD PCP - General 07/16/16 08/04/16 documented as of this encounter
--- OUTSIDE RECORDS SUMMARY | 2024-11-12 14:04 | XMS_ITS | Encounter Summary ---
Author Organization [facility] Address [facility] [place] [address] [place] [address] Care Team Providers Care Mineral Industry Teacher Name Role Phone Sergo Mackey MD Primary Care Provider Sergo Duncan MD Primary Care Provider Sergo Duncan MD Primary Care Provider Julian short Encounter Details Date Type Department Care Team (Latest Contact Info) Description 07/24/2016 Abstract [facility] Medical Group [...] Verified Results Ur Fract Catecholamines 24 Hr [id number] 03:35PM Sergo Mackey Test Name Result Flag [...] 480 Unit: mcg/24 h Test Performed by [facility], [facility], [address] [place] [address] Aaron Kennedy M.D., Ph.D., Director of Laboratories , [facility] [id number] Discussion/Summary The detailed analysis of hormones in [...] Eloisa Wolfe R.N.; Aug 03 2016 3:27PM HARDWOOD FLOOR REFINISHER (Author) documented in this encounter Plan of Treatment Not on file documented as of this encounter Visit Diagnoses Not on filedocumented in this encounter Care Teams Mineral Industry Teacher Relationship Specialty Start Date End Date Sergo Mackey MD PCP - General 04/07/17 Sergo Mackey MD PCP - General 08/05/16 04/06/17 Sergo Makcey MD PCP - General 07/16/16 08/04/16 documented as of this encounter
--- OUTSIDE RECORDS SUMMARY | 2024-11-12 14:04 | XMS_ITS | Encounter Summary ---
Author Organization [facility] Address [address] [place] [address]. [place], [place] [address] [place] [address] Care Team Providers Care Otr Company Truck Driver Name Role Phone Sergo Mackey MD Primary Care Provider Sergo Duncan MD Primary Care Provider Sergo Duncan MD Primary Care Provider Julian short Encounter Details Date Type Department Care Team (Latest Contact Info) Description 07/17/2016 Abstract [facility] Medical Group , James Pineda [...] patient notified -sjs Verified Results Urine Culture [id number] 02:41PM Sergo Mackey Test Name Result Flag Reference Urine Culture SPECIMEN DESCRIPTION - URINE CLEAN CATCH SPECIAL REQUESTS - NO SPECIAL REQUEST CULTURE - NO GROWTH 2 DAYS REPORT STATUS - FINAL 07/17/2016 Discussion/Summary Urine culture shows no infection. No need for anbx. Signatures Electronically signed by : Fariba Garvey MA; Jul 20 2016 1:37PM ERGONOMICS ENGINEER (Author) * Generic Conversion MD Ashkan - 07/17/2016 11:09 AM CDT Message Recorded as Task Date: 07/15/2016 01:28 PM, Created By: Yasmine Fitch Task Name: Medical Complaint Callback [facility]: [facility] Narendra Regarding Patient: Alia Fabian, Status: [...] 16 Jul 2016 4:49 PM TASK EDITED [facility]-елена Message: Pts mother updated-[facility] Plan 1. LORazepam 1 MG Oral Tablet; TAKE 1 TABLET BY MOUTH THREE TIMES DAILY NEEDED Rx By: Sergo Mackey; Dispense: 0 Days ; #:60 Tablet; Refill: 0; For: Bipolar mood disorder, Palpitations; JULIANA = N; Call Rx; Last Updated By: Eloisa Wolfe Signatures Electronically signed by : Eloisa Wolfe R.N.; Jul 17 2016 11:11AM ERGONOMICS ENGINEER (Author) documented in this encounter Plan of Treatment Not on file documented as of this encounter Visit Diagnoses Not on filedocumented in this encounter Care Teams Otr Company Truck Driver Relationship Specialty Start Date End Date Sergo Mackey MD PCP - General 04/07/17 Sergo Mackey MD PCP - General 08/05/16 04/06/17 Sergo Mackey MD PCP - General 07/16/16 08/04/16 documented as of this encounter
--- OUTSIDE RECORDS SUMMARY | 2024-11-12 14:04 | XMS_ITS | Encounter Summary ---
Author Organization [facility] Address [facility]. [place], [place] [address] [place] [address] Care Team Providers Care Weapons Officer Naval Activity Name Role Phone Sergo Mackey MD Primary Care Provider Sergo Duncan MD Primary Care Provider Sergo Duncan MD Primary Care Provider Sergo Duncan MD Primary Care Provider Sergo Duncan MD Primary Care Provider Julian short Encounter Details Date Type Department Care Team (Late st Contact Info) Description 06/16/2016 Abstract [facility] Medical Group Family & Internal Medicine [address] [phone] Sergo Mackey MD Social [...] states she ended up going [facility] for symptoms of shortness [...] tablettid as needed; Therapy: 10Apr2014 to (Last Rx:[id number]) Ordered Rx By: Sergo Mackey; Dispense: 0 [...] Status:In Progress - Specimen/Data Collected; Done: 16Jun2016 Perform:[facility]; Due:16Jul2016; Last Updated By:Angela Lal; 06/16/2016 3:16:54 PM;Ordered; For:Bipolar mood disorder, Panic disorder without agoraphobia; Ordered By:Sergo Mackey; 3. Compr Metabolic Prof ( CMP ); Status:In Progress - Specimen/Data Collected; Done: 16Jun2016 Perform:[facility]; Due:16Jul2016; Last Updated By:Angela Lal; 06/16/2016 3:16:54 PM;Ordered; For:Bipolar mood disorder, Panic disorder without agoraphobia; Ordered By:Sergo Mackey; 4. Thyroid Stim Hormone ( TSH ); Status:In Progress - Specimen/Data Collected; Done: 16Jun2016 Perform:[facility]; Due:16Jul2016; Last Updated By:Angela Lal; 06/16/2016 3:16:54 PM;Ordered; For:Bipolar mood disorder, Panic disorder without agoraphobia; Ordered By:Sergo Mackey; Palpitations 5. From ClonazePAM 1 MG Oral Tablet Take one half to one tablettid as needed To ClonazePAM 1 MG Oral Tablet TAKE ONE TABLET THREE TIMES DAILY NEEDED Rx By: Srego Mackey; Dispense: 0 Days ; #:90 Tablet; Refill: 0; For: Palpitations; JULIANA = N; Print Rx; Last Updated By: Farbia Garvey; 06/16/2016 3:06:43 PM She will be trying to obtain an old medicine list for us as every product I mentioned has been tried and failed in the past. Signatures Electronically signed by : Sergo Mackey M.D.; Jun 18 2016 9:33AM MAINTENANCE JOURNEYMAN (Author) documented in this encounter Plan of Treatment Not on file documented as of this encounter Visit Diagnoses Not on filedocumented in this encounter Care Teams Weapons Officer Naval Activity Relationship Specialty Start Date End Date Sergo Mackey MD PCP - General 04/07/17 Sergo Mackey MD PCP - General 08/05/16 04/06/17 Sergo Mackey MD PCP - General 07/16/16 08/04/16 Sergo Mackey MD PCP - General 07/14/16 07/15/16 Sergo Mackey MD PCP - General 06/16/16 07/13/16 documented as of this encounter
--- OUTSIDE RECORDS SUMMARY | 2024-11-12 14:04 | XMS_ITS | Encounter Summary ---
Author Organization [facility] Address [facility]. [place], [place] [address] [place] [address] Care Team Providers Care Sugar Drier Name Role Phone Sergo Mackey MD Primary Care Provider Sergo Duncan MD Primary Care Provider Sergo Duncan MD Primary Care Provider Julian short Encounter Details Date Type Department Care Team (Latest Contact Info) Description 07/21/2016 Abstract [facility] Social History Tobacco Use [...] feel free to contact my office at [phone]. Sergo Mackey M.D. Electronically signed by:Fariba Garvey MA Jul 21 2016 4:56PM PHARMACY COORDINATOR Author documented in this encounter Plan of Treatment Not on file documented as of this encounter Visit Diagnoses Not on filedocumented in this encounter Care Teams Sugar Drier Relationship Specialty Start Date End Date Sergo Mackey MD PCP - General 04/07/17 Sergo Mackey MD PCP - General 08/05/16 04/06/17 Sergo Mackey MD PCP - General 07/16/16 08/04/16 documented as of this encounter
--- OUTSIDE RECORDS SUMMARY | 2024-11-12 14:04 | XMS_ITS | Encounter Summary ---
Author Organization [facility] Address [address] [place] [address]. [place] [address] [place] [address] Care Team Providers Care Soils Technician Name Role Phone Sergo Mackey MD Primary Care Provider Sergo Duncan MD Primary Care Provider Sergo Duncan MD Primary Care Provider Sergo Duncan MD Primary Care Provider Sergo Duncan MD Primary Care Provider Julian short Encounter Details Date Type Department Care Team (Late st Contact Info) Description 06/30/2016 Abstract [facility] Medical Group Family & Internal Medicine [address] [phone] Sergo Mackey MD Social History [...] Verified Results *Urine dip auto In Office [id number] 02:45PM Sergo Mackey Test Name Result Flag Reference Color Yellow Clarity Clear Glucose Negative Bilirubin Negative Ketones Negative Specific [place] 1.015 Blood Negative pH 5.5 5.0 - [...] Eloisa Wolfe R.N.; Jul 02 2016 9:06AM MOTEL CLERK (Author) * Sergo Mackey MD - [...] DAILY NEEDED ; Therapy: 10Apr2014 to (Last Rx:[id number]) Ordered Rx By: Sergo Mackey; Dispense: 0 Days ; #:90 Tablet; Refill: 0; For: Palpitations; JULIANA = N; Print Rx; Last Updated By: Fariba Garvey; 06/16/2016 3:06:43 PM Allergies 1. 12 Hour Decongestant TB12 Recorded By: Shirley Zhang; 04/10/2014 3:10:36 PM Vitals Recorded: [id number] 02:09PM Heart Rate 120 Respiration 18 Systolic [...] Glucose Negative Bilirubin Negative Ketones Negative Specific [place] 1.015 Blood Negative pH 5.5 5.0 - [...] Sergo Mackey M.D.; Jul 02 2016 5:41AM MOTEL CLERK (Author) documented in this encounter Plan [...] on filedocumented in this encounter Care Teams Soils Technician Relationship Specialty Start Date End Date Sergo Mackey MD PCP - General 04/07/17 Sergo Mackey MD PCP - General 08/05/16 04/06/17 Sergo Mackey MD PCP - General 07/16/16 08/04/16 Sergo Mackey MD PCP - General 07/14/16 07/15/16 Sergo Mackey MD PCP - General 06/16/16 07/13/16 documented as of this encounter
--- OUTSIDE RECORDS SUMMARY | 2024-11-12 14:04 | XMS_ITS | Encounter Summary ---
Author Organization [facility] Address [facility]6 [facility] [place] [address] [place] [address] Care Team Providers Care Candy Rolling Machine Operator Name Role Phone Sergo Mackey MD Primary Care Provider Sergo Duncan MD Primary Care Provider Sergo Duncan MD Primary Care Provider Sergo Duncan MD Primary Care Provider Sergo Duncan MD Primary Care Provider Julian short Encounter Details Date Type Department Care Team (Late st Contact Info) Description 04/10/2014 Abstract [facility] Medical Group Family & Internal Medicine [address] [phone] Sergo Mackey MD Social History [...] Chief Complaint Free Text: Was seen at [facility] and needed to start control but b/p [...] Plan 1. LC-C difficile Toxins A+B, EIA [id number] Status: Active Requested for: 10Apr2014 Perform: [facility] Due: [id number] Marked Important; Last Updated By: Shirley Zhang; 04/10/2014 3:52:49 PM; Ordered; For: Chronic diarrhea; Ordered By: Sergo Mackey 2. LC-Ova + Parasite Exam [id number] Status: Active Requested for: 10Apr2014 Perform: [facility] Due: [id number] Marked Important; Last Updated By: Shirley Zhang; 04/10/2014 3:52:49 PM; Ordered; For: Chronic diarrhea; Ordered By: Sergo Mackey 3. LC-Stool Culture [id number] Status: Active Requested for: 10Apr2014 Perform: [facility] Due: [id number] Marked Important; Last Updated By: Shirley Zhang; 04/10/2014 3:52:48 PM; Ordered; For: Chronic diarrhea; Ordered By: Sergo Mackey 4. LC-White Blood Cells ( WBC ), Stool [id number] Status: Active Requested for: 10Apr2014 Perform: [facility] Due: [id number] Marked Important; Last Updated By: Shirley Zhang; 04/10/2014 3:52:48 PM; Ordered; For: Chronic diarrhea; Ordered By: Sergo Mackey 5. O AND P, STOOL AND SMEAR Status: Canceled - Manual Activation Perform: [facility] Due: 17Apr2014; Last Updated By: Shirley Zhang; 04/10/2014 3:52:48 PM; Ordered; For: Chronic diarrhea; Ordered By: Sergo Mackey 6. Stool C Diff Molecular Assay Status: Canceled - Manual Activation [facility]form: [facility] Due: 17Apr2014; Last Updated By: Shirley Zhang; 04/10/2014 3:52:48 PM; Ordered; For: Chronic diarrhea; Ordered By: Sergo Mackey 7. Stool Culture Status: Canceled - Manual Activation [facility] Due: 17Apr2014; Last Updated By: [...] Sergo Mackey M.D.; Apr 12 2014 5:45PM SAFE DEPOSIT ATTENDANT (Author) documented in this encounter Plan of Treatment Not on file documented as of this encounter Visit Diagnoses Not on filedocumented in this encounter Care Teams Candy Rolling Machine Operator Relationship Specialty Start Date End Date Sergo Mackey MD PCP - General 04/07/17 Sergo Mackey MD PCP - General 08/05/16 04/06/17 Sergo Mackey MD PCP - General 07/16/16 08/04/16 Sergo Mackey MD PCP - General 07/14/16 07/15/16 Sergo Mackey MD PCP - General 06/16/16 07/13/16 documented as of this encounter
--- OUTSIDE RECORDS SUMMARY | 2024-11-12 14:04 | XMS_ITS | Encounter Summary ---
Author Organization [facility] Address [address] [place] [address]. [place] [address] [place] [address] Care Team Providers Care Electric Arc Furnace Operator Name Role Phone Sergo Mackey MD Primary Care Provider Sergo Duncan MD Primary Care Provider Sergo Duncan MD Primary Care Provider Sergo Duncan MD Primary Care Provider Julian short Encounter Details Date Type Department Care Team (Late st Contact Info) Description 07/14/2016 Abstract [facility] [place] [address] Sergo Mackey MD Social History [...] URINE CLEAN CATCH 07/14/2016 5:40 PM CDT [facility] SPECIAL REQUESTS NO SPECIAL REQUEST 07/14/2016 5:40 PM CDT [facility] CULTURE RESULT NO GROWTH 2 DAYS 07/17/2016 8:10 AM CDT [facility] URINE SPECIMEN OBTAINED BY CLEAN CATCH PROCEDURE / Unknown 07/14/2016 2:41 PM CDT 07/14/2016 7:08 PM CDT us Generic Conversion Md [facility] - GENERAL ORDERABLES Final Result [facility] [address] [place] [address], [place] [phone] documented in this encounter Visit Diagnoses Diagnosis Other abnormal findings in urine documented in this encounter Care Teams Electric Arc Furnace Operator Relationship Specialty Start Date End Date Sergo Mackey MD PCP - General 04/07/17 Sergo Mackey MD PCP - General 08/05/16 04/06/17 Sergo Mackey MD PCP - General 07/16/16 08/04/16 Sergo Mackey MD PCP - General 07/14/16 07/15/16 documented as of this encounter
--- OUTSIDE RECORDS SUMMARY | 2024-11-12 14:04 | XMS_ITS | Encounter Summary ---
Author Organization [facility] Address [facility]. [place], [place] [address] [place] [address] Care Team Providers Care Conveyor Technician Name Role Phone Sergo Mackey MD Primary Care Provider Sergo Duncan MD Primary Care Provider Sergo Duncan MD Primary Care Provider Sergo Duncan MD Primary Care Provider Julian labSergo Stratton MD Primary Care Provider [facility] Encounter Details Date Type Department Care Team (Latest Contact Info) Description 06/28/2016 Abstract [facility] Medical Group Social [...] on filedocumented in this encounter Care Teams Conveyor Technician Relationship Specialty Start Date End Date Sergo Mackey MD PCP - General 04/07/17 Sergo Mackey MD PCP - General 08/05/16 04/06/17 Sergo Mackey MD PCP - General 07/16/16 08/04/16 Sergo Mackey MD PCP - General 07/14/16 07/15/16 Sergo Mackey MD PCP - General 06/16/16 07/13/16 documented as of this encounter
--- OUTSIDE RECORDS SUMMARY | 2024-11-12 14:04 | XMS_ITS | Encounter Summary ---
Author Organization [facility] Address [facility]. [place], [place] [address] [place] [address] Care Team Providers Care Floor Attendant Name Role Phone Sergo Mackey MD Primary Care Provider Sergo Duncan MD Primary Care Provider Sergo Duncan MD Primary Care Provider Sergo Duncan MD Primary Care Provider Sergo Duncan MD Primary Care Provider Julian short Encounter Details Date Type Department Care Team (Latest Contact Info) Description 10/07/2015 Abstract [facility] [...] Mackey Task Name: Follow Up Assigned To: [facility] Narendra Regarding [...] Ibeth Van, ; Oct 07 2015 2:10PM GLASS CUT OFF TENDER (Author) documented in this encounter Plan of Treatment Not on file documented as of this encounter Visit Diagnoses Not on filedocumented in this encounter Care Teams Floor Attendant Relationship Specialty Start Date End Date Sergo Mackey MD PCP - General 04/07/17 Sergo Mackey MD PCP - General 08/05/16 04/06/17 Sergo Mackey MD PCP - General 07/16/16 08/04/16 Sergo Mackey MD PCP - General 07/14/16 07/15/16 Srego Mackey MD PCP - General 06/16/16 07/13/16 documented as of this encounter
--- OUTSIDE RECORDS SUMMARY | 2024-11-12 14:04 | XMS_ITS | Encounter Summary ---
Author Organization [facility] Address [address] [place] [address]. [place] [address] [place] [address] Care Team Providers Care Central Melt Specialist Name Role Phone Sergo Mackey MD Primary Care Provider Sergo Duncan MD Primary Care Provider Sergo Duncan MD Primary Care Provider Sergo Duncan MD Primary Care Provider Sergo Duncan MD Primary Care Provider Julian short Encounter Details Date Type Department Care Team (Late st Contact Info) Description 06/16/2016 Abstract [facility] [place] [address] Sergo Mackey MD Social History Tobacco Use [...] R esult [facility] [address] [place] [address], * COMPREHENSIVE METABOLIC PANEL (06/16/2016 3:16 PM CDT) Pathologist [facility] GLUCOSE 96 70 - 99 mg/dL 06/16/2016 [...] R esult [facility] [address] [place] [address], [place] [phone] * (ABNORMAL) CBC W/DIFF AUTOMATED (06/16/2016 3:16 PM CDT) [facility] WBC 8.9 4.8 - 10.8 X10'3/uL [...] R esult [facility] [address] [place] [address], documented in this encounter Visit Diagnoses Diagnosis Bipolar disorder (CMS/HCC [facility]) Bipolar disorder, unspecified documented in this encounter Care Teams Central Melt Specialist Relationship Specialty Start Date End Date Sergo Mackey MD PCP - General 04/07/17 Sergo Mackey MD PCP - General 08/05/16 04/06/17 Sergo Mackey MD PCP - General 07/16/16 08/04/16 Sergo Mackey MD PCP - General 07/14/16 07/15/16 Sergo Mackey MD PCP - General 06/16/16 07/13/16 documented as of this encounter
--- OUTSIDE RECORDS SUMMARY | 2024-11-12 14:06 | XMS_ITS | Continuity of Care Document ---
Author Organization [facility] [place] [address] [place] [address] [place] [address] Phone Care Team Providers Care Heel Seat Fitter Name Role Phone [facility] Unavailable Unavail able Ame Hollis Unavailable Unavailable Procedures Procedure Date Vision Sv Frames Purchases SV Poly Carb Sph [place] To +/- 4 010 Contact Lens Hydrophilic, Spherical Medical Tax Eye Exam & Treatment Refraction Office/outpatient Visit, Est Progressive Lens, Polycarb Frames Deluxe Anti-reflective Coating Anti-reflective Coating Frames Deluxe SV Poly Carb Sph +/- 7.12 To +/- 20 D Oc Tax - Medical Vision Svcs Frames Purchases SV Poly Carb Sph [place] To +/- 4 007 Eye Exam & Treatment Refraction Corneal Pachymetry Fundus Photography W/ Report Advance Directives Directive Yes / No Effective Date File Name No Information Encounters Encounter Description Practice Location Reason(s) For Visit Diagnoses Date Provider Providers Copied on Encounter [facility], [address] [place] [address] [address], [place], [place], [address], [place] tel:[phone] [facility] No Information 2-201 0 [facility] . [address] [facility], [address], [place], [place], [address], [place]. tel:[phone] Referring Provider: Deric Downey OD A, [address], [place], [address]. tel:[phone] g Provider: Ame Hollis, [address] [place], [address]. tel:[phone] [facility], [address], [place], [place], [address], [place] tel:[phone] [facility] No Information 1-201 0 Downey OD Deric. [address] , [address], [place], [address], [place]. tel:[phone] [facility], [address], [place], [place], [address], [place] tel:[phone] [facility] No Information 3-201 0 Downey OD Deric. [address] , [address], [place], [address], [place]. tel:[phone] Office/outpat ient Visit, Est [facility], [address], [place], [place], [address], [place] tel:[phone] [facility] No Information Dec-2 3-200 9 Doisy Edward. [address] , [address], [place], [address], [place]. tel:[phone] [facility], [address], [place], [place], [address], [place] tel:[phone] [facility] No Information Dec-2 3-200 9 [facility] . [address] [facility], [address], [place], [place], [address], [place]. tel:[phone] Referring Provider: Juan Pablo Washington, [address], [place], [address]. tel:[phone] marco Provider: Sissy Enriquez, [address] [place], [address]. tel:[phone] [facility], [address], [place], [place], [address], [place] tel:[phone] [facility] No Information 9-200 7 [facility] . [address] [facility], [address], [place], [address], [place]. tel:[phone] Consulting Provider: Sissy Enriquez, [address] [place] [address], [address]. tel:[phone] [facility], [address], [place], [place], [address], [place] tel:[phone] [facility] No Information 2-200 7 [facility] . [address] [facility], [address], [place], [place], [address], [place]. tel:[phone] Referring Provider: Juan Pablo Washington, [address], [place], [address]. tel:[phone] g Provider: Ame Hollis, [address] [place], [address]. tel:[phone] [facility], [address], [place], [place], [address], [place] tel:[phone] [facility] No Information 8-200 7 Blaire Almeida. [address] , [address], [place], [address], [place]. tel:[phone] Referring Provider: Juan Pablo Washington, [address], [place], [address]. tel:[phone] Family History Family Member Type Diagnosis Age At Onset No Information Payers Payer name Insurance type Covered constitution party ID Authoriza tion(s) No Information Social [...]
--- OUTSIDE RECORDS SUMMARY | 2024-11-12 14:06 | XMS_ITS | Encounter Summary ---
Author Organization [facility] Healthcare Address [address] [place] [address] Care Team Providers Care Information Director Name Role Phone Trenton Lomeli MD Primary Care Provider [phone] Neelima Velazquez MD Unavailable [phone] Maura Wilson MD Unavailable [phone] Reason for Visit * Reason Onset Date Comments needs follow up appointment 11/03/2024 Encounter Details Date Type Department Care Team (Late st Contact Info) Description 11/03/2024 Nurse Triage [facility] Medical Group Primary Care at [address] [address] Trenton Lomeli MD [address] [place] [address] [address] [place] [address] Social History Tobacco Use Types [...] on file Legal Sex Female 4:15 AM DOOR CLOSER MECHANIC Gender Identity Not on file Sexual Orientation Not on file 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 LMOM to contact the office back at [phone] Regarding: Telephone task has been made. Please relay: Called to check on the patient and schedule her an appointment CLOSER MECHANIC * Telephone Encounter - Maliha Onofre RN [...] stress management techniques, moist heat to abdomen, potato picker Rx Bentyl and take per MD orders, call back for further assistwith RN avail 24/05 via PCP number. Pt instructed to keep a food log with time, date, food and any symptoms experienced. Routing to clin pool: This Pt may benefit from GI consult. If PCP thinks appropriate, Pt is asking for consult to be in area near her ([place]). Pls contact Alia Rui at [phone] for further assist. Reason for Disposition Simple fainting is a chronic symptom (has occurred multiple times) Protocols used: [id number] CLOSER MECHANIC * Telephone Encounter - Maliha Onofre RN - 11/03/2024 4:15 PM CST Regarding: passed out ----- Message from Elle Dwain sent at 11/03/2024 4:12 PM DOOR CLOSER MECHANIC ----- Symptom Based Call Chief Complaint(s): passed [...] message need to be routed? Yes-Action Needed CLOSER MECHANIC documented in this encounter Plan of Treatment Not on file documented as of this encounter Visit Diagnoses Not on filedocumented in this encounter Care Teams Information Director Relationship Specialty Start Date End Date Trenton Lomeli MD PCP - General Family Medicine 10/06/21 Neelima Velazquez MD [address] [address] Consulting Physician Gynecology 10/06/21 Maura Wilson MD [address] [place] [address] Consulting Physician Cardiology 06/16/23 documented as of this encounter
--- OUTSIDE RECORDS SUMMARY | 2024-11-12 14:06 | XMS_ITS | Encounter Summary ---
Author Organization [facility] Healthcare Address [address] [place] [address] Care Team Providers Care Corrections Corporal Name Role Phone Trenton Lomeli MD Primary Care Provider [phone] Neelima Velazquez MD Unavailable [phone] Maura Wilson MD Unavailable Reason for Visit * Reason Comments Multiple Medical Complaints Encounter Details Date Type Department Care Team (Late st Contact Info) Description 11/03/2024 10:04 PM BIG DATA ENGINEER - 11/04/2024 12:14 AM [facility] Emergency [facility] Emergency Department [address] [place] [id number] Job James MD [address] [place] [address] Sleep disturbance (Primary Dx); Chronic abdominal pain [...] on file Legal Sex Female 4:15 AM BIG DATA ENGINEER Gender Identity Not on file Sexual Orientation Not on file 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 Not on file Not on file Not on file documented as of this encounter Last Filed Vital Signs Vital Sign Reading Time Taken Comments Blood Pressure 130/66 11/04/2024 12:00 AM BIG DATA ENGINEER Pulse 64 11/04/2024 12:00 AM BIG DATA ENGINEER Temperature 36.8 ??C (98.2 ??F) 11/03/2024 10:[address] Respiratory Rate 23 11/04/2024 12:00 AM BIG DATA ENGINEER Oxygen Saturation 99% 11/04/2024 12:00 AM BIG DATA ENGINEER Inhaled Oxygen Concentration - - Weight 119.3 kg (263 lb) 11/03/2024 6:29 PM BIG DATA ENGINEER Height 170.2 cm (5' 7 ) 11/03/2024 6:29 PM BIG DATA ENGINEER Body Mass Index 41.19 11/03/2024 6:29 PM BIG DATA ENGINEER documented in this encounter Medications at Time [...] turned into constipation. Pt previously went to [facility] for similar complaints but was unhappy with [...] WISDOM TOOTH EXTRACTION Oral Surgery Tooth Extraction Hernando Tooth - (Added by TW Conv) Family [...] CT scan with contrast on 10/28 at [facility] is unremarkable and Dr. Lomeli saw her [...] my words and actions. Alexandru Cortez 11/03/24 7015 Alexandru Cortez 11/03/24 2312 Alexandru Cortez 11/03/24 2707 Aleida Shaw 11/03/24 2336 Job James MD 11/05/24 1431 DATA ENGINEER * Linh Joshua RN - 11/03/2024 6:26 [...] passed out. Pt denies any cardiac hx. DATA ENGINEER documented in this encounter Miscellaneous Notes * [...] up: cardiac workup Job James MD 11/03/245 DATA ENGINEER documented in this encounter Plan of Treatment Not on file documented as of this encounter Procedures Procedure Name Priority Date/Time Associated Diagnosis Comments ECG 12-LEAD Routine 11/03/2024 11:04 [address] DATA [address]ER CT HEAD WO CONTRAST ED 11/03/2024 1 0:53 PM BIG DATA ENGINEER TROPONIN T HIGH-SENSITIVITY 2-HOUR Timed 11/03/2024 10:46 PM BIG DATA ENGINEER PRO B-TYPE NATRIURETIC PEPTIDE STAT 11/03/2024 10:46 PM BIG DATA ENGINEER THYROID FUNCTION CASCADE Add-On 11/03/2024 10:46 PM BIG DATA ENGINEER ERYTHROCYTE SEDIMENTATION RATE STAT 11/03/2024 10:46 PM BIG DATA ENGINEER CRP (ACUTE PHASE) STAT 11/03/2024 10: 46 PM BIG DATA ENGINEER MAGNESIUM Routine 11/03/2024 10:46 PM BIG DATA ENGINEER CREATINE KINASE (CK), TOTAL STAT 11/03/2024 10:46 PM BIG DATA ENGINEER TROPONIN T HIGH-SENSITIVITY SERIES (BASELINE, 2HR, 4HR, 6HR) STAT 11/03/2024 7:40 PM BIG DATA ENGINEER EGFR STAT 11/03/2024 7:40 PM BIG DATA ENGINEER DIFFERENTIAL AUTO STAT 11/03/2024 7:4 0 PM BIG DATA ENGINEER CBC WITH AUTO DIFFERENTIAL STAT 11/03/2024 7:40 PM BIG DATA ENGINEER COMPREHENSIVE METABOLIC PANEL STAT 11/03/2024 7:40 PM BIG DATA ENGINEER XR CHEST 1 VIEW ED 11/03/2024 7:17 PM BIG DATA ENGINEER ECG 12-LEAD STAT 11/03/2024 6:34 PM BIG DATA ENGINEER documented in this encounter Results * ECG 12 lead (11/03/2024 11:04 PM BIG DATA ENGINEER) 11/03/2024 11:0 4 PM BIG DATA ENGINEER Narrative [facility] - 11/04/2024 2:30 PM BIG DATA ENGINEER Vent Rate: 67 bpm RR Interval: 892 msec LA Interval: 142 msec QRS Duration: 89 msec QT Interval: 413 msec QTC Interval: 428 msec P-R-T [place]: 25 - 0 - 21 degrees IMPRESSION: SINUS RHYTHM MODERATE VOLTAGE CRITERIA FOR LVH, CONSIDER NORMAL VARIANT ??[MEETS CRITERIA IN ONE OF: R(aVL), S(V1), R(V5), R(V5/V6)+S(V1)] BORDERLINE ECG NO CHANGE FROM PREVIOUS TRACING NOTED Electronically Signed By: Nithin Vaca MD us Job James MD ECG ORDERABLES Final Resul t [facility] * CT Head WO Contrast (11/03/2024 10:53 PM BIG DATA ENGINEER) Anatomical Region Laterality Modality Head and Neck N/A Computed Tomogra phy 11/03/2024 10:5 6 PM BIG DATA ENGINEER Narrative 11/03/2024 10:58 PM BIG DATA ENGINEER EXAM DESCRIPTION: CT HEAD WO CONTRAST REASON [...] PM T: ??11/03/2024 10:58 PM Report ID: [id number] Reading Location: ??[id number] Procedure Note Mike Kirk MD - 11/03/2024 [...] Mike Kirk M.D. AT: AT Report ID: [id number] Reading Location: [id number] Job James MD IMG CT PROCEDURES Final Res ult * Magnesium (11/03/2024 10:46 PM BIG DATA ENGINEER) Pathologist [facility] Magnesium 1.8 1.4 - 2.5 mg/dL Blood 11/03/2024 10:4 6 PM BIG DATA ENGINEER 11/03/2024 10:50 PM BIG DATA ENGINEER Job James MD LAB BLOOD ORDERABLES Final Result [facility] [place]) 1 [facility] Department [place] [address] * Thyroid Function [place] (11/03/2024 10:46 PM BIG DATA ENGINEER) [facility] TSH 1.44 0.30 - 4.20 mcIUnit/mL Blood 11/03/2024 10:4 6 PM BIG DATA ENGINEER 11/03/2024 10:50 PM BIG DATA ENGINEER Job James MD LAB BLOOD ORDERABLES Final Result Performing Organization Address [facility] Co de Phone Number ARI [facility] ([place]) [address] [place] [address] * (ABNORMAL) Erythrocyte sedimentation rate (11/03/2024 10:46 PM BIG DATA ENGINEER) [facility] Erythrocyte sedimentation rate 29(H) 1 - 20 mm/hr Blood 11/03/2024 10:4 6 PM BIG DATA ENGINEER 11/03/2024 10:50 PM BIG DATA ENGINEER Job James MD LAB BLOOD ORDERABLES Final Result Performing Organization Address [facility] Co de Phone Number ARI [facility] ([place]) 1 [facility] [place] [address] * Creatine kinase (CK), total (11/03/2024 10:46 PM BIG DATA ENGINEER) [facility] CK 69 30 - 200 Units/L Blood 11/03/2024 10:4 6 PM BIG DATA ENGINEER 11/03/2024 10:50 PM BIG DATA ENGINEER Job James MD LAB BLOOD ORDERABLES Final Result Performing Organization Address [facility] Co de Phone Number ARI [facility] ([place]) 1 [facility] [place] [address] * Pro B-type natriuretic peptide (11/03/2024 10:46 PM BIG DATA ENGINEER) [facility] NT-proBNP 51 <=300 pg/mL Comment: Interpretive Comments: [...] Date: 2018. Blood 11/03/2024 10:4 6 PM BIG DATA ENGINEER 11/03/2024 10:50 PM BIG DATA ENGINEER us Job James MD LAB BLOOD ORDERABLES Edited Result - Final [facility] [place] Adrenaline Mobility [facility] Department [place] [address] * CRP (acute phase) (11/03/2024 10:46 PM BIG DATA ENGINEER) [facility] CRP <3.0 <=10.0 mg/L Blood 11/03/2024 10:4 6 PM BIG DATA ENGINEER 11/03/2024 10:50 PM BIG DATA ENGINEER Job James MD LAB BLOOD ORDERABLES Final Result [facility] ([place]) 1 [facility] [place] [address] * Troponin T high-sensitivity 2-hour (11/03/2024 10:46 PM BIG DATA ENGINEER) [facility] Trop T hs 7 <=14 ng/L Comment: Interpretive Data For further hscTnT resources including the diagnostic algorithm and an aid in interpretation, copy and paste this link: https://nrl.testcatalog.org/show/hsTrop Current Interpretive Data last revised 2020. Trop T hs delta See Comment ng/L CE MAIRA SHAH ([place]) Comment:Inappropriate collec tion time to report a delta. Trop T hs pct delta See Comment % CERJOSE CRUZ SHAH ([place]) Comment:Inappropriate collec tion time to report a delta. Trop T hs interp See Comment C ROSITA SH[facility] ([place]) Comment:Inappropriate collec tion time to report a delta. Blood 11/03/2024 10:4 6 PM BIG DATA ENGINEER 11/03/2024 10:50 PM BIG DATA ENGINEER Job James MD LAB BLOOD ORDERABLES Final Result [facility] ([place]) 1 [facility] [place] [address] * eGFR (11/03/2024 7:40 PM BIG DATA ENGINEER) [facility] eGFR >90 >=60 mL/min/1. 73 m2 [...] last reviewed 2021. Blood 11/03/2024 7:40 PM BIG DATA ENGINEER 11/03/2024 7:42 PM BIG DATA ENGINEER us Job James MD LAB BLOOD ORDERABLES Final Result [facility] ([place]) 1 [facility] Department [place] [address] * Differential, auto (11/03/2024 7:40 PM BIG DATA ENGINEER) Neutrophil abs 4.3 1.5 - 6.5 K/cumm [...] revised on 2018. Blood 11/03/2024 7:40 PM BIG DATA ENGINEER 11/03/2024 7:42 PM BIG DATA ENGINEER us Job James MD LAB BLOOD ORDERABLES Final Result [facility] ([place]) 1 [facility] Department [place] [address] * Troponin T high-sensitivity series (baseline, 2hr, 4hr, 6hr) (11/03/2024 7:40 PM BIG DATA ENGINEER) Trop T hs <6 <=14 ng/L Comment: Interpretive Data For further hscTnT resources including the diagnostic algorithm and an aid in interpretation, copy and paste this link: https://nrl.testcatalog.org/show/hsTrop Current Interpretive Data last revised 2020. Blood 11/03/2024 7:40 PM BIG DATA ENGINEER 11/03/2024 7:42 PM BIG DATA ENGINEER Job James MD LAB BLOOD ORDERABLES Final Result [facility] ([place]) 1 [facility] Department [place] [address] * (ABNORMAL) Comprehensive metabolic panel (11/03/2024 7:40 PM BIG DATA ENGINEER) Pathologist [facility] Sodium 139 135 - 145 mmol/L Potassium, [...] [facility] ([place]) Blood 11/03/2024 7:40 PM BIG DATA ENGINEER 11/03/2024 7:42 PM BIG DATA ENGINEER us Job James MD LAB BLOOD ORDERABLES Final Result [facility] ([place]) 1 [facility] Department [place] [address] * CBC with auto differential (11/03/2024 7:40 PM BIG DATA ENGINEER) WBC 6.8 3.8 - 9.9 K/cumm Hgb [...] ([place]) Blood (Blood, Venous) 11/03/2024 7:40 PM BIG DATA ENGINEER 11/03/2024 7:42 PM BIG DATA ENGINEER us Job James MD LAB BLOOD ORDERABLES Final Result [facility] ([place]) 1 [facility] Department [place] [address] * XR Chest 1 Vw Portable (if patient condition/safety warrant portable) (11/03/2024 7:17 PM BIG DATA ENGINEER) Anatomical Region Laterality Modality Body, Chest N/A Computed Radiogr aphy 11/03/2024 7:23 PM BIG DATA ENGINEER Narrative 11/03/2024 7:24 PM BIG DATA ENGINEER EXAM DESCRIPTION: ?? XR CHEST 1 VIEW [...] PM T: ??11/03/2024 7:24 PM Report ID: [id number] Reading Location: ??[id number] Procedure Note Paco Reyes MD - 11/03/2024 [...] Paco Reyes M.D. RB: KESHA Report ID: [id number] Reading Location: [place] [address] Job James MD IMG XR PROCEDURES Final Res ult * ECG 12 lead (11/03/2024 6:34 PM BIG DATA ENGINEER) 11/03/2024 6:34 PM BIG DATA ENGINEER Narrative [facility] - 11/04/2024 2:30 PM BIG DATA ENGINEER Vent Rate: 89 bpm RR Interval: 668 msec LA Interval: 116 msec QRS Duration: 88 msec QT Interval: 356 msec QTC Interval: 403 msec P-R-T [place]: 19 - 18 - 2 degrees IMPRESSION: SINUS RHYTHM WITH SHORT LA INTERVAL LOW QRS VOLTAGE IN PRECORDIAL LEADS ??[QRS DEFLECTION < 1.0 mV IN CHEST LEADS] POSSIBLE ANTERIOR MYOCARDIAL INFARCTION , OF INDETERMINATE AGE [30 ms Q WAVE IN V3/V4, OR R < 0.2 mV IN V4] ABNORMAL ECG Compared to prior EKG, heart rate has increased Electronically Signed By: Nithin Vaca MD Job James MD ECG ORDERABLES Final Resul t [facility] documented in this encounter Visit Diagnoses Diagnosis [...] 1 dose New Bag 11/03/2024 10:57 PM BIG DATA ENGINEER 1,000 mL documented in this encounter Active and Recently Administered Medications Times are shown in BIG DATA ENGINEER. Scheduled Medication Order 11/02/2024 11/03/2024 11/04/2024 aspirin [...] 11/03/2024 documented in this encounter Care Teams Corrections Corporal Relationship Specialty Start Date End Date Trenton Lomeli MD PCP - General Family Medicine 10/06/21 Neelima Velazquez MD [address] [facility] [address] [place] [address] Consulting Physician Gynecology 10/06/21 Maura Wilson MD [address] [place] [address] Consulting Physician Cardiology 06/16/23 documented as of this encounter
--- OUTSIDE RECORDS SUMMARY | 2024-11-12 14:06 | XMS_ITS | Referral Summary ---
Author Organization [facility] Address [address] [place] [address] Care Team Providers Care Software Intern Name Role Phone Trenton Lomeli MD Primary Care Provider [phone] Neelima Velazquez MD Unavailable [phone] Maura Wilson MD Unavailable [phone] Encounters Date Type Department Care Team Description 11/09/2024 12:41 PM [facility] - 11/10/2024 2:10 PM [facility] Hospital Encounter [facility] [address] [place] [id number] Priscila Monaco MD Trillo Alvarez, Ludwig, MD Borderline personality disorder (CMS/HCC) (HCC) (Primary Dx); Somatization disorder; Gastroesophageal reflux disease, unspecified whether esophagitis present; Irritable bowel syndrome with diarrhea; Non-cardiac chest pain Discharge Disposition: Discharge to home or self care 11/08/2024 5:57 AM [facility] - 11/09/2024 11:57 AM [facility] Emergency [address] [address] Chest pain, unspecified type (Primary Dx); Irritable bowel syndrome with diarrhea; Suicidal ideation; Anxiety Discharge Disposition: Discharge to psych hospital or psych unit 11/06/2024 Telephone [facility] Primary Care at [address] [phone] Trenton Lomeli MD Medical Question/Miscellaneous 11/06/2024 10:30 AM [facility] Telemedicine [facility] Primary Care at [address] [phone] Trenton Lomeli MD Irritable bowel syndrome with diarrhea (Primary Dx) 11/03/2024 10:04 PM [facility] - 11/04/2024 12:14 AM [facility] Emergency [facility] Emergency Department [address] [place] [address] Job James MD Sleep disturbance (Primary Dx); Chronic abdominal pain Discharge Disposition: Discharge to home or self care 11/03/2024 Orders Only [facility] Primary Care at [address] [phone] Trenton Lomeli MD 11/03/2024 Nurse Triage [facility] Primary Care at [address] [phone] Trenton Lomeli MD 11/03/2024 Nurse Triage [facility] Primary Care at [address] [phone] Angela Kumar RN 11/02/2024 1:41 PM [facility] - 11/02/2024 11:59 PM [facility] Hospital [address] [address] Diarrhea of presumed infectious origin Discharge Disposition: Discharge to home or self care 11/02/2024 3:00 PM [facility] Lab [facility] Outpatient Lab at [address] [phone] 11/02/2024 1:45 PM [facility] Lab [facility] Outpatient Lab at [address] [phone] Hypercholesterolemia (Primary Dx) 11/02/2024 1:15 PM [facility] Office Visit [facility] Primary Care at [address] [phone] Trenton Lomeli MD Diarrhea of presumed infectious origin (Primary Dx) 10/30/2024 Nurse Triage [facility] Primary Care at [address] [phone] Trenton Lomeli MD 10/30/2024 Orders Only [facility] Primary Care at [address] [phone] ProviderMisael MD from Last 3 [...] 5 Assessment & Plan (11/09/2024 3:48 PM TREE [facility]ILLER): She has been on PPI and sucralfate at home, continued Lactose intolerance 11/06/2024 Gluten intolerance 11/06/2024 Hypercholesterolemia 06/16/2023 Morbid (severe) obesity due to excess calories 0 11/09/2022 Assessment & Plan (11/09/2022 4:02 PM TREE [facility]ILLER): BMI Follow-up includes: nutrition counseling, exercise counseling and education provided. Body mass index (BMI) 45.0-49.9, adult 3 Well adult exam 10/08/2021 Assessment & Plan (11/10/2022 2:28 PM TREE KILLER): A(n) yearly well adult visit has been [...] prn Assessment & Plan (10/08/2021 2:57 PM TREE KILLER): A initial well visit to establish care [...] 7 Assessment & Plan (11/09/2024 3:45 PM TREE KILLER): Complains of intermittent diarrhea associated abdominal cramping Exam unremarkable, euvolemic Continued home mental, Skyemotil Advised to keep food diary and notes symptoms especially with gluten and lactose Assessment & Plan (11/06/2024 11:14 AM TREE KILLER): IBS vs infectious (prolonged effect of viral gastoenteritis? With [facility] or similar) will have her use omeprazole OTC 40 mg until she can waste picker her medications Resuming probiotic advised bland diet today, stay hydrated; avoid sugary foods (rice may be okay) we will try to review [place] record, ut from her portal, the CT was unremarkable urged her to waste picker her Rx from pharamcy as soon as feasible, but will not start the [facility] referral may be needed Paroxysmal nocturnal dyspnea 10/02/2016 Overview (02/04/2017): Paroxysmal nocturnal dyspnea Essential hypertension 10/02/2016 Overview (02/04/2017): Essential hypertension Palpitations 10/02/2016 Overview (02/04/2017): Palpitations Snoring 10/02/2016 Overview (02/05/2017): Snoring Non-cardiac chest pain 10/02/2016 Overview (02/05/2017): Atypical chest pain Assessment & Plan (11/09/2024 3:49 PM TREE KILLER): Recurrent chest pain, radiating to head, without [...] drink = 0.6 oz pur e alcohol) [facility] Utilities Answer Date Recorded In the past 12 months has e [employer], gas, oil, or water [place] threatened to shut off services in your [...] often do you attend chur ch or confucianist services? 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 file Not on file Not on file Last Filed Vital Signs Vital Sign Reading Time Taken Comments Blood Pressure 128/80 11/10/2024 9:11 AM TREE [facility]ER Pulse 95 11/10/2024 9:11 AM [facility] Temperature 36.9 ??C (98.4 ??F) 11/10/2024 9:11 AM CS T Respiratory Rate 18 11/10/2024 9:11 AM TREE [facility]ER Oxygen Saturation 96% 11/10/2024 9:11 AM [facility]ER Inhaled Oxygen Concentration - - Weight 115.5 kg (254 lb 9.6 oz) 11/09/2024 1:30 PM T[facility]ER Height 170.2 cm (5' 7.01 ) 11/09/2024 1:30 PM CS T Body Mass Index 39.87 11/09/2024 1:30 PM T[facility]ER Plan of Treatment Not on file Procedures Procedure Name Priority Date/Time Associated Diagnosis Comments POCT GLUCOSE DEVICE Routine 11/09/2024 1 :58 AM TREE [facility]ER TROPONIN T HIGH-SENSITIVITY 2-HOUR Timed 11/08/2024 8:01 AM [facility]ER XR CHEST 1 VIEW ED 11/08/2024 6:18 AM T[facility]ER EGFR STAT 11/08/2024 6:11 AM [facility]ER DIFFERENTIAL AUTO STAT 11/08/2024 6:1 1 AM [facility]ER DRUGS OF ABUSE SCREEN, URINE WITHOUT CONFIRMATION STAT 11/08/2024 6:11 AM TREE K[facility]ER ETHANOL STAT 11/08/2024 6:11 AM T[facility]ER TROPONIN T HIGH-SENSITIVITY SERIES (BASELINE, 2HR, 4HR, 6HR) STAT 11/08/2024 6:11 AM [facility]ER COMPREHENSIVE METABOLIC PANEL STAT 11/08/2024 6:11 AM TREE [facility]ER CBC WITH AUTO DIFFERENTIAL STAT 11/08/2024 6:11 AM T[facility]ER INFLUENZA A/B, RSV, AND COVID-19 PCR Routine 11/08/2024 6:11 AM T[facility]ER URINALYSIS AND REFLEX TO MICROSCOPIC AND CULTURE STAT 11/08/2024 6:11 AM T[facility]ER ECG 12-LEAD STAT 11/08/2024 6:10 AM TREE [facility]ER POCT HCG, URINE Routine 11/08/2024 6:10 AM T[facility]ER ECG 12-LEAD Routine 11/03/2024 11:[address] HEAD WO CONTRAST ED 11/03/2024 1 0:53 PM [facility]ER MAGNESIUM Routine 11/03/2024 10:46 PM [facility]ER THYROID FUNCTION CASCADE Add-On 11/03/2024 10:46 PM [facility]ER ERYTHROCYTE SEDIMENTATION RATE STAT 11/03/2024 10:46 PM [facility]ER CREATINE KINASE (CK), TOTAL STAT 11/03/2024 10:46 PM T[facility]ER PRO B-TYPE NATRIURETIC PEPTIDE STAT 11/03/2024 10:46 PM T[facility]ER CRP (ACUTE PHASE) STAT 11/03/2024 10: 46 PM T[facility]ER TROPONIN T HIGH-SENSITIVITY 2-HOUR Timed 11/03/2024 10:46 PM T[facility]ER EGFR STAT 11/03/2024 7:40 PM T[facility]ER DIFFERENTIAL AUTO STAT 11/03/2024 7:4 0 PM T[facility]ER TROPONIN T HIGH-SENSITIVITY SERIES (BASELINE, 2HR, 4HR, 6HR) STAT 11/03/2024 7:40 PM [facility]ER COMPREHENSIVE METABOLIC PANEL STAT 11/03/2024 7:40 PM T[facility]ER CBC WITH AUTO DIFFERENTIAL STAT 11/03/2024 7:40 PM T[facility] K[facility]ER XR CHEST 1 VIEW ED 11/03/2024 7:17 PM T[facility] KILLER ECG 12-LEAD STAT 11/03/2024 6:34 PM T[facility]ER CRYPTOSPORIDIUM AND GIARDIA ANTIGEN ASSAY Routine 11/02/2024 1:41 PM [facility]ER Diarrhea of presumed infectious origin HEPATITIS A ANTIBODY, IGM Routine 11/02/2024 1:41 PM [facility]ER Diarrhea of presumed infectious origin CT ABDOMEN PELVIS W CONTRAST Schedule Routine, Read Routine (OP Routine) 10/28/2024 1:10 PM T[facility]ER PAP SMEAR Routine 03/19/2021 from Last 3 Months or Most Recently Relevant to Health Maintenance Results * POCT glucose (11/09/2024 1:58 AM TREE KILLER) Glucose, POC 99 70 - 199 mg/dL Blood 11/09/2024 1:58 AM T[facility]ER 11/09/2024 1:58 AM TREE KILLER us Notinfile Unknown LAB POCT ORDERABLES - DEVICE F inal Result [facility] [address] [facility] Department [place] [address] * Troponin T high-sensitivity 2-hour (11/08/2024 8:01 AM TREE KILLER) Trop T hs <6 <=14 ng/L Comment: Interpretive Data For further hscTnT resources including the diagnostic algorithm and an aid in interpretation, copy and paste this link: https://nrl.testcatalog.org/show/hsTrop Current Interpretive Data last revised 2020. Trop T hs delta 0 ng/L ARI Trop T hs interp Insignificant ARI Blood 11/08/2024 8:01 AM T[facility] K[facility]ER 11/08/2024 8:10 AM T[facility]ER us Jaclyn Xavier MD LAB BLOOD ORDERABLES Fin al Result [facility] [address] [facility] Department [place] [address] * XR Chest 1 Vw Portable (if patient condition/safety warrant portable) (11/08/2024 6:18 AM TREE KILLER) Anatomical Region Laterality Modality Body, Chest N/A Computed Radiogr aphy 11/08/2024 6:27 AM TREE KILLER Narrative 11/08/2024 6:29 AM T[facility]ER EXAM DESCRIPTION: ?? XR CHEST 1 VIEW REASON FOR STUDY: ?? chest pain ?? BIBEMS from home having chest discomfort for a week, non radiating, pressure like pain and SI without any plan. Was seen 3 days ago at [facility] and cardiac work up done. [...] D: ??11/08/2024 6:29 AM T: Report ID: [id number] Reading Location: ??[id number] Procedure Note Gillian Stokes MD - 11/08/2024 EXAM DESCRIPTION: XR CHEST 1 VIEW REASON FOR STUDY: chest pain BIBEMS from home having chest discomfort for a week, non radiating,pressure like pain and SI without any plan. Was seen 3 days ago at [facility] and cardiac work up done. No heart [...] Gillian Stokes M.D. SN T: Report ID: [id number] Reading Location: [id number] Jaclyn Xavier MD IMG XR PROCEDURES Final Result * Troponin T high-sensitivity series (baseline, 2hr, 4hr, 6hr) (11/08/2024 6:11 AM TREE KILLER) Trop T hs <6 <=14 ng/L Comment: Interpretive Data For further hscTnT resources including the diagnostic algorithm and an aid in interpretation, copy and paste this link: https://nrl.testcatalog.org/show/hsTrop Current Interpretive Data last revised 2020. Blood 11/08/2024 6:11 AM TREE KILLER 11/08/2024 6:17 AM TREE KILLER Result [facility] Jaclyn Xavier MD LAB BLOOD ORDERABLES Fin al Result Performing Organization Address [facility] Co de Phone Number [facility] [address] [address] * Influenza A/B, RSV, and COVID-19 PCR Nasopharyngeal (11/08/2024 6:11 AM TREE KILLER) Pathologist [facility] COVID-19 RNA Negative Negative Influenza A RNA Negative Negative [facility] Influenza B RNA Negative Negative [facility] RSV RNA Negative Negative [facility] Comment: Interpretive data: Testing performed by [facility]. This test is performed using the [employer] Xpert Xpress CoV-2/Flu/RSV plus assay. This is a multiplex, real-time reverse transcriptase PCR assay intended for the qualitative detection of nucleic acid from SARS-CoV-2, influenza A, influenza B, and respiratory syncytial virus. This assay has been cleared by the [place] Food and Drug administration. The performance characteristics have been verified by the [facility]. ??Results must be considered in the clinical context, and a negative result does not rule out infection. Interpretive Data last revised 2023 Nasopharyngeal 11/08/2024 6: 11 AM TREE KILLER 11/08/2024 6:14 AM TREE KILLER Narrative [facility] - 11/08/2024 6:54 AM TREE KILLER Is the Patient experiencing symptoms consistent with COVID?->No Jaclyn Xavier MD LAB MICROBIOLOGY - GENER AL ORDERABLES Final Result Performing Organization Address [facility] Co de Phone Number [address] [address] * eGFR (11/08/2024 6:11 AM TREE KILLER) Pathologist [facility] eGFR >90 >=60 mL/min/1. 73 m2 Comment: [...] last reviewed 2021. Blood 11/08/2024 6:11 AM TREE KILLER 11/08/2024 6:17 AM TREE KILLER us Jaclyn Xavier MD LAB BLOOD ORDERABLES Fin al Result Performing Organization Address City/State/[facility] Co de Phone Number [facility] [address] [facility] Department [place] [address] * Differential, auto (11/08/2024 6:11 AM TREE KILLER) Pathologist [facility] Neutrophil abs 4.6 1.5 - 6.5 K/cumm Imm gran abs 0.0 0.0 - 0.1 K/cumm [facility] Lymphocyte abs 2.5 0.8 - 3.3 K/cumm [facility] Monocyte abs 0.7 0.2 - 0.8 K/cumm [facility] Eosinophil abs 0.2 0.0 - 0.5 K/cumm [facility] Basophil abs 0.1 0.0 - 0.1 K/cumm [facility] Neutrophil pct 57.1 % [facility] Comment: Interpretive Data Percent cell count reference ranges are not reported, since discordance with absolute values may lead to misinterpretation of CBC data. Current Interpretive Data was last revised on 2018. Imm gran pct 0.3 % [facility] Comment: Interpretive Data Percent cell count reference ranges are not reported, since discordance with absolute values may lead to misinterpretation of CBC data. Current Interpretive Data was last revised on 2018. Lymphocyte pct 31.0 % [facility] Comment: Interpretive Data Percent cell count reference ranges are not reported, since discordance with absolute values may lead to misinterpretation of CBC data. Current Interpretive Data was last revised on 2018. Monocyte pct 8.5 % [facility] Comment: Interpretive Data Percent cell count reference ranges are not reported, since discordance with absolute values may lead to misinterpretation of CBC data. Current Interpretive Data was last revised on 2018. Eosinophil pct 2.3 % [facility] Comment: Interpretive Data Percent cell count reference ranges are not reported, since discordance with absolute values may lead to misinterpretation of CBC data. Current Interpretive Data was last revised on 2018. Basophil pct 0.8 % [facility] Comment: Interpretive Data Percent cell count reference ranges are not reported, since discordance with absolute values may lead to misinterpretation of CBC data. Current Interpretive Data was last revised on 2018. Blood 11/08/2024 6:11 AM TREE KILLER 11/08/2024 6:15 AM TREE KILLER us Jaclyn Xavier MD LAB BLOOD ORDERABLES Fin al Result [facility] [address] [facility] Department [place] [address] * Urinalysis reflex to microscopic and culture Urine (11/08/2024 6:11 AM TREE KILLER) Color, ur Straw Yellow Clarity, ur Clear Clear ARI Specific gravity, ur 1.003 1.003 - 1.030 [facility] pH, urine 6.5 [facility] Comment: Interpretive Data ? Urine pH is affected by diet, medications, systemic acid-base disturbances, and renal tubular function. ??pH may affect urinary stone formation. ??For example, urine pH below 6.0 may help reduce the tendency for calcium phosphate stones and pH greater than 6.0 may reduce the tendency for uric acid stone formation. Source: [facility] Current Interpretive Data was last revised on 2017 Protein, ur ql Negative Negative [facility] Glucose, ur ql Negative Negative [facility] Ketones, ur Negative Negative [facility] Bilirubin, ur Negative Negative [facility] Blood, ur Negative Negative [facility] Urobilinogen, ur <2.0 <2.0 mg/dL [facility] Nitrite, ur Negative Negative [facility] Leukocyte esterase, ur Negative Negative [facility] UA reflex comment Reflex conditions for microscopic UA and culture not met. [facility] Urine 11/08/2024 6:11 AM TREE KILLER 11/08/2024 6:15 AM T[facility] KILLER Jaclyn Xavier MD LAB MICROBIOLOGY - GENER AL ORDERABLES Final Result [facility] [address] [facility] Department [place] [address] * CBC with auto differential (11/08/2024 6:11 AM TREE KILLER) WBC 8.0 3.8 - 9.9 K/cumm Hgb 14.1 11.9 - 15.5 g/dL [facility] Hct 43.4 35.6 - 45.5 % [facility] Plt 314 150 - 400 K/cumm [facility] MPV 9.2 9.1 - 12.3 fL [facility] RBC 4.92 3.90 - 5.20 M/cumm [facility] MCV 88.2 81.3 - 96.4 fL [facility] MCH 28.7 27.1 - 33.3 pg [facility] MCHC 32.5 32.3 - 35.7 g/dL [facility] RDW CV 12.6 11.1 - 14.9 % [facility] RDW SD 40.3 35.7 - 48.1 fL [facility] NRBC abs 0.00 0.00 - 0.01 K/cumm ARI Blood (Blood, Venous) 11/08/2024 6:11 AM TREE KILLER 11/08/2024 6:15 AM T[facility]ER Jaclyn Xavier MD LAB BLOOD ORDERABLES Fin al Result [facility] [address] [facility] [address] Department [place] [address] * Drugs of Abuse Screen, Urine without Confirmation (11/08/2024 6:11 AM TREE KILLER) Amphetamine, ur Not Detected CutOff 500ng/mL Comment: [...] Fentanyl, Ur Not Detected CutOff 5 ng/mL [facility] Comment: Interpretive Data - Fentanyl: ?? Samples containing greater than 5 ng/mL norfentanyl, fentanyl, or other cross-reacting fentanyl compounds are reported as positive. False positive and false negative results are possible. Confirmatory testing required for definitive results. Current Interpretive Data was last reviewed 2024. Methadone, ur Not Detected CutOff 300ng/mL [facility] Comment: Interpretive Data - Methadone: ??Samples containing greater than 300 ng/mL d,l-methadone or other cross-reacting compounds are reported as positive. ??False positive and false negative results are possible. Confirmatory testing required for definitive results. Current Interpretive Data was last reviewed 2023. Opiates, ur Not Detected CutOff 300ng/mL [facility] Comment: Interpretive Data - Opiates: ??Samples containing greater than 300 ng/mL morphine or other cross-reacting compounds are reported as positive. ??False positive and false negative results are possible. Confirmatory testing required for definitive results. Current Interpretive Data was last reviewed 2023. Oxycodone, ur Not Detected CutOff 100ng/mL [facility] Comment: Interpretive Data - Oxycodone: ??Samples containing greater than 100 ng/mL oxycodone or other cross-reacting compounds are reported as ??positive. ??False positive and false negative results are possible. Confirmatory testing required for definitive results. Current Interpretive Data was last reviewed 2023. Phencyclidine, ur Not Detected CutOff 25 ng/mL [facility] Comment: Interpretive Data - Phencyclidine: ??Samples [...] revised on 2018. Urine 11/08/2024 6:11 AM TREE KILLER 11/08/2024 6:15 AM TREE KILLER Narrative [facility] - 11/08/2024 6:47 AM TREE KILLER Drug of Abuse screening is performed by immunoassay for medical purposes only. ??This is not to be used for Pain Management purposes. Jaclyn Xavier MD LAB URINE ORDERABLES Fin al Result Performing Organization Address [facility] de Phone Number [address] [address] * Ethanol (11/08/2024 6:11 AM TREE KILLER) Pathologist [facility] Ethanol <10 <=10 mg/dL Comment: Interpretive Data Legal limit of intoxication > or = 80 mg/dL Levels > or = 400 mg/dL are potentially TOXIC. Current interpretive data was last revised on 2018. Blood 11/08/2024 6:11 AM TREE KILLER 11/08/2024 6:17 AM T[facility]ER Jaclyn Xavier MD LAB BLOOD ORDERABLES Fin al Result Performing Organization Address [facility] de Phone Number [address] [address] * Comprehensive metabolic panel (11/08/2024 6:11 AM TREE KILLER) [facility] Sodium 140 135 - 145 mmol/L Potassium, pl 3.6 3.3 - 4.9 mmol/L [facility] Chloride 103 97 - 110 mmol/L [facility] CO2 26 22 - 32 mmol/L [facility] Anion gap 11 2 - 15 mmol/L [facility] BUN 8 6 - 25 mg/dL [facility] Creatinine 0.63 0.60 - 1.10 mg/dL [facility] Glucose 113 70 - 199 mg/dL [facility] Comment: Interpretive Data Fasting glucose [...] 2022. Calcium 9.8 8.5 - 10.3 mg/dL [facility] Bilirubin, total 1.0 0.1 - 1.2 mg/dL [facility] Protein, pl 7.7 6.5 - 8.5 g/dL [facility] Albumin 4.6 3.5 - 5.0 g/dL [facility] Alk phos 61 40 - 130 Units/L [facility] ALT 7 7 - 45 Units/L [facility] AST 19 10 - 45 Units/L [facility] Blood 11/08/2024 6:11 AM TREE KILLER 11/08/2024 6:17 AM TREE KILLER us Jaclyn Xavier MD LAB BLOOD ORDERABLES Fin al Result [facility] [address] [facility] Department [place] [address] * ECG 12 lead (11/08/2024 6:10 AM TREE KILLER) Pathologist [facility] Ventricular Rate EKG/Min 81 BPM [facility] Atrial Rate 81 BPM [facility] MT-Interval (MSEC) 144 ms [facility] QRS-Interval (MSEC) 76 ms [facility] QT-Interval (MSEC) 394 ms [facility] QTc 457 ms [facility] P [place] 36 degrees [facility] R [place] -2 degrees [facility] T [place] 24 degrees [facility] Diagnosis Normal sinus rhythm Moderate voltage criteria for LVH, may be normal variant Borderline ECG No previous ECGs available Confirmed by MELY MONTES DE OCA M.D. ([id number]) on 11/08/2024 12:16:01 PM [facility] 11/08/2024 6:10 AM TREE KILLER 11/08/2024 12:16 PM TREE KILLER Jaclyn Xavier MD ECG ORDERABLES Final Re sult Performing Organization Address [facility] de Phone Number [facility] [employer] [facility] * POCT hCG, urine (11/08/2024 6:10 AM TREE KILLER) HCG, ur, POC Negative Negative Lot Number [id number] QC Backgroud Clear Acceptable QC Control Line Acceptable Urine 11/08/2024 6:10 AM TREE KILLER Jaclyn Xavier MD POINT OF CARE TEST ORDER KELLEY Final Result * ECG 12 lead (11/03/2024 11:04 PM TREE KILLER) 11/03/2024 11:0 4 PM TREE KILLER Narrative [facility] - 11/04/2024 2:30 PM TREE KILLER Vent Rate: 67 bpm RR Interval: 892 msec MT Interval: 142 msec QRS Duration: 89 msec QT Interval: 413 msec QTC Interval: 428 msec P-R-T [place]: 25 - 0 - 21 degrees IMPRESSION: SINUS RHYTHM MODERATE VOLTAGE CRITERIA FOR LVH, CONSIDER NORMAL VARIANT ??[MEETS CRITERIA IN ONE OF: R(aVL), S(V1), R(V5), R(V5/V6)+S(V1)] BORDERLINE ECG NO CHANGE FROM PREVIOUS TRACING NOTED Electronically Signed By: Nithin Vaca MD Job James MD ECG ORDERABLES Final Resul t Performing Organization Address [facility] Co de Phone Number [facility] Social Touch [facility] * CT Head WO Contrast (11/03/2024 10:53 PM TREE KILLER) Anatomical Region Laterality Modality Head and Neck N/A Computed Tomogra phy 11/03/2024 10:5 6 PM TREE KILLER Narrative 11/03/2024 10:58 PM TREE KILLER EXAM DESCRIPTION: CT HEAD WO CONTRAST REASON [...] PM T: ??11/03/2024 10:58 PM Report ID: [id number] Reading Location: ??[id number] Procedure Note Mike Kirk MD - 11/03/2024 [...] Mike Kirk M.D. AT: AT Report ID: [id number] Reading Location: [place] [address] us Job James MD IMG CT PROCEDURES Final Res ult * Troponin T high-sensitivity 2-hour (11/03/2024 10:46 PM TREE KILLER) Trop T hs 7 <=14 ng/L Comment: Interpretive Data For further hscTnT resources including the diagnostic algorithm and an aid in interpretation, copy and paste this link: https://nrl.testcatalog.org/show/hsTrop Current Interpretive Data last revised 2020. Trop T hs delta See Comment ng/L CE RNASIA SHAH ([place]) Comment:Inappropriate collec tion time to report a delta. Trop T hs pct delta See Comment % ARI [facility] ([place]) Comment:Inappropriate collec tion time to report a delta. Trop T hs interp See Comment C ROSITA SHAH ([place]) Comment:Inappropriate collec tion time to report a delta. Blood 11/03/2024 10:4 6 PM TREE KILLER 11/03/2024 10:50 PM TREE KILLER us Job James MD LAB BLOOD ORDERABLES Final Result ARI SHAH ([place]) 1 [facility] Department [place] [address] * Pro B-type natriuretic peptide (11/03/2024 10:46 PM TREE KILLER) NT-proBNP 51 <=300 pg/mL Comment: Interpretive Comments: [...] Date: 2018. Blood 11/03/2024 10:4 6 PM TREE KILLER 11/03/2024 10:50 PM TREE KILLER us Job James MD LAB BLOOD ORDERABLES Edited Result - Final [facility] [place] 1 [facility] Department [place] [address] * Thyroid Function Cataño (11/03/2024 10:46 PM TREE KILLER) Pathologist [facility] TSH 1.44 0.30 - 4.20 mcIUnit/mL Blood 11/03/2024 10:4 6 PM TREE KILLER 11/03/2024 10:50 PM TREE KILLER Job James MD LAB BLOOD ORDERABLES Final Result ARI SHAH ([place]) 1 [facility] [place] [address] * (ABNORMAL) Erythrocyte sedimentation rate (11/03/2024 10:46 PM TREE KILLER) [facility] Erythrocyte sedimentation rate 29(H) 1 - 20 mm/hr Blood 11/03/2024 10:4 6 PM TREE KILLER 11/03/2024 10:50 PM TREE KILLER Job James MD LAB BLOOD ORDERABLES Final Result Performing Organization Address City/[facility] Co de Phone Number ARI SHAH ([place]) 1 [facility] [place] [address] * CRP (acute phase) (11/03/2024 10:46 PM TREE KILLER) [facility] CRP <3.0 <=10.0 mg/L Blood 11/03/2024 10:4 6 PM TREE KILLER 11/03/2024 10:50 PM TREE KILLER Job James MD LAB BLOOD ORDERABLES Final Result Performing Organization Address City/[facility]/ZIP Co de Phone Number ARI SHAH ([place]) 1 [facility] [place] [address] * Magnesium (11/03/2024 10:46 PM TREE KILLER) Pathologist [facility] Magnesium 1.8 1.4 - 2.5 mg/dL Blood 11/03/2024 10:4 6 PM TREE KILLER 11/03/2024 10:50 PM TREE KILLER Job James MD LAB BLOOD ORDERABLES Final Result Performing Organization Address [facility] Co de Phone Number ARI SHAH ([place]) 1 [facility] [place] [address] * Creatine kinase (CK), total (11/03/2024 10:46 PM TREE KILLER) [facility] CK 69 30 - 200 Units/L Blood 11/03/2024 10:4 6 PM TREE KILLER 11/03/2024 10:50 PM TREE KILLER Job James MD LAB BLOOD ORDERABLES Final Result Performing Organization Address [facility] de Phone Number ARI SHAH ([place]) 1 [facility] [place] [address] * Troponin T high-sensitivity series (baseline, 2hr, 4hr, 6hr) (11/03/2024 7:40 PM TREE KILLER) [facility] Trop T hs <6 <=14 ng/L Comment: Interpretive Data For further hscTnT resources including the diagnostic algorithm and an aid in interpretation, copy and paste this link: https://nrl.testcatalog.org/show/hsTrop Current Interpretive Data last revised 2020. Blood 11/03/2024 7:40 PM TREE KILLER 11/03/2024 7:42 PM TREE KILLER Job James MD LAB BLOOD ORDERABLES Final Result Performing Organization Address [facility] Co de Phone Number ARI SHAH ([place]) 1 [facility] [place] [address] * eGFR (11/03/2024 7:40 PM TREE KILLER) [facility] eGFR >90 >=60 mL/min/1. 73 [...] last reviewed 2021. Blood 11/03/2024 7:40 PM TREE KILLER 11/03/2024 7:42 PM TREE KILLER us Job James MD LAB BLOOD ORDERABLES Final Result [facility] ([place]) 1 [facility] Department [place] [address] * Differential, auto (11/03/2024 7:40 PM TREE KILLER) Neutrophil abs 4.3 1.5 - 6.5 K/cumm Imm gran abs 0.0 0.0 - 0.1 K/cumm [facility] ([place]) Lymphocyte abs 1.8 0.8 - 3.3 K/cumm [facility] ([place]) Monocyte abs 0.5 0.2 - 0.8 K/cumm [facility] ([place]) Eosinophil abs 0.1 0.0 - 0.5 K/cumm [facility] ([place]) Basophil abs 0.1 0.0 - 0.1 K/cumm [facility] ([place]) Neutrophil pct 63.7 % [facility] [...] revised on 2018. Blood 11/03/2024 7:40 PM TREE KILLER 11/03/2024 7:42 PM TREE KILLER us Job James MD LAB BLOOD ORDERABLES Final Result ARI SHAH ([place]) 1 [facility] Department of Laboratories [place], [place] [id number] * CBC with auto differential (11/03/2024 7:40 PM TREE KILLER) WBC 6.8 3.8 - 9.9 K/cumm Hgb [...] ([place]) Blood (Blood, Venous) 11/03/2024 7:40 PM TREE KILLER 11/03/2024 7:42 PM TREE KILLER us Job James MD LAB BLOOD ORDERABLES Final Result [facility] ([place]) 1 [facility] Department [place] [address] * (ABNORMAL) Comprehensive metabolic panel (11/03/2024 7:40 PM TREE KILLER) Sodium 139 135 - 145 mmol/L Potassium, [...] [facility] ([place]) Blood 11/03/2024 7:40 PM TREE KILLER 11/03/2024 7:42 PM TREE KILLER Job James MD LAB BLOOD ORDERABLES Final Result [facility] ([place]) 1 [facility] Department [place] [address] * XR Chest 1 Vw Portable (if patient condition/safety warrant portable) (11/03/2024 7:17 PM TREE KILLER) Anatomical Region Laterality Modality Body, Chest N/A Computed Radiogr aphy 11/03/2024 7:23 PM TREE KILLER Narrative 11/03/2024 7:24 PM TREE KILLER EXAM DESCRIPTION: ?? XR CHEST 1 VIEW [...] PM T: ??11/03/2024 7:24 PM Report ID: [id number] Reading Location: ??[id number] Procedure Note Paco Reyes MD - 11/03/2024 [...] Paco Reyes M.D. RB: RB Report ID: [id number] Reading Location: [id number] us Job James MD IMG XR PROCEDURES Final Res ult * ECG 12 lead (11/03/2024 6:34 PM TREE KILLER) 11/03/2024 6:34 PM TREE KILLER Narrative [facility] - 11/04/2024 2:30 PM TREE KILLER Vent Rate: 89 bpm RR Interval: 668 msec MT Interval: 116 msec QRS Duration: 88 msec QT Interval: 356 msec QTC Interval: 403 msec P-R-T [place]: 19 - 18 - 2 degrees IMPRESSION: SINUS RHYTHM WITH SHORT MT INTERVAL LOW QRS VOLTAGE IN PRECORDIAL LEADS [...] ORDERABLES Final Resul t Performing Organization Address City/[facility] Co de Phone Number [facility] Social Touch [facility] * Hepatitis A antibody, IgM Blood (11/02/2024 1:41 PM TREE KILLER) Hep A IgM Nonreactive Nonreactive Comment: Interpretive Data: If Hep A IgM Ab is reported as Equivocal, a new sample should be drawn in two weeks for testing. Current interpretive data was last revised on 20. Blood 11/02/2024 1:41 PM TREE KILLER 11/02/2024 8:17 PM TREE KILLER us Trenton Lmoeli MD LAB MICROBIOLOGY - GENERAL ORDERABLES Final Result Performing Organization Address City/[facility] Co de Phone Number [facility] [address] [address] Department [place] [address] * Cryptosporidium and Giardia antigen assay Stool (11/02/2024 1:41 PM TREE KILLER) Giardia Ag Negative Negative Comment:Testing performed by : [facility], [address] [facility], [place]., [address] Cryptosporidium Ag Negative Negative ARI CLAY Comment: Interpretive data: Testing performed by the [facility] Microbiology Laboratory using an immunoassay that detects Cryptosporidium and Giardia antigens in stool specimens. ??If comprehensive examination for ova and parasites is required, please request Ova and Parasite Examination . Testing performed by: [facility], [address] [place]., [address] Stool 11/02/2024 1:41 PM TREE KILLER 11/02/2024 10:22 PM TREE KILLER Trenton Lomeli MD LAB MICROBIOLOGY - GENERAL ORDERABLES Final Result [facility] [place] [address] [address] [place] [address] * CT Abdomen Pelvis W Contrast (10/28/2024 1:10 PM TREE KILLER) Anatomical Region Laterality Modality Body N/A Computed Tomogra phy Historical Provider IMG CT PROCEDURES Final R esult * HM PAP SMEAR (03/19/2021) Historical Provider HEALTH MAINTENANCE Final Result from Last 3 Months or Most Recently Relevant to Health Maintenance [place] For more information, please contact: [phone] * Full Code (Latest Code Status on File) Date Activated Date Inactivated Comments 11/09/2024 2:20 PM 11/10/2024 6:22 PM Care Teams Software Intern Relationship Specialty Start Date End Date Trenton Lomeli MD PCP - General Family Medicine 10/06/21 Neelima Velazquez MD [address] [address] Consulting Physician Gynecology 10/06/21 Maura Wilson MD [address] [place] [address] Consulting Physician Cardiology 06/16/23
--- OUTSIDE RECORDS SUMMARY | 2024-11-12 14:06 | XMS_ITS | Clinical Summary ---
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 Name Role Phone Trenton Lomeli MD Primary Care Provider [phone] Neelima Velazquez MD Unavailable [phone] Maura Wilson MD Unavailable [phone] Allergies Active Allergy Reactions Criticality Noted [...] disease) Assessment & Plan (11/09/2024 3:48 PM FORMAL WAITER/WAITRESS): She has been on PPI and sucralfate at home, continued Lactose intolerance 11/06/2024 Gluten intolerance 11/06/2024 Hypercholesterolemia 06/16/2023 Morbid (severe) obesity due to excess calories 0 11/09/2022 Assessment & Plan (11/09/2022 4:02 PM FORMAL WAITER/WAITRESS): BMI Follow-up includes: nutrition counseling, exercise counseling and education provided. Body mass index (BMI) 45.0-49.9, adult 3 Well adult exam 10/08/2021 Assessment & Plan (11/10/2022 2:28 PM FORMAL WAITER/WAITRESS): A(n) yearly well adult visit has been [...] prn Assessment & Plan (10/08/2021 2:57 PM FORMAL WAITER/WAITRESS): A initial well visit to establish care [...] 7 Assessment & Plan (11/09/2024 3:45 PM FORMAL WAITER/WAITRESS): Complains of intermittent diarrhea associated abdominal cramping Exam unremarkable, euvolemic Continued home mental, Lomotil Advised to keep food diary and notes symptoms especially with gluten and lactose Assessment & Plan (11/06/2024 11:14 AM FORMAL WAITER/WAITRESS): IBS vs infectious (prolonged effect of viral gastoenteritis? 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 Resuming probiotic advised bland diet today, stay hydrated; avoid sugary foods (rice may be okay) we will try to review jose Jo from her portal, the CT was unremarkable urged her to fish bait picker her Rx from pharamcy as soon as feasible, but will not start the [place] GI referral may be needed Paroxysmal nocturnal dyspnea 10/02/2016 Overview (02/04/2017): Paroxysmal nocturnal dyspnea Essential hypertension 10/02/2016 Overview (02/04/2017): Essential hypertension Palpitations 10/02/2016 Overview (02/04/2017): Palpitations Snoring 10/02/2016 Overview (02/05/2017): Snoring Non-cardiac chest pain 10/02/2016 Overview (02/05/2017): Atypical chest pain Assessment & Plan (11/09/2024 3:49 PM FORMAL WAITER/WAITRESS): Recurrent chest pain, radiating to head, without [...] Department Care Team Description 11/09/2024 12:41 PM FORMAL WAITER/WAITRESS - 11/10/2024 2:10 PM FORMAL WAITER/WAITRESS Hospital Encounter [facility] [address] [place] [address] Priscila Monaco MD Trillo Alvarez, Ludwig, MD Borderline personality disorder (CMS/HCC) (HCC) (Primary Dx); Somatization disorder; Gastroesophageal reflux disease, unspecified whether esophagitis present; Irritable bowel syndrome with diarrhea; Non-cardiac chest pain Discharge Disposition: Discharge to home or self care 11/08/2024 5:57 AM FORMAL WAITER/WAITRESS - 11/09/2024 11:57 AM [facility] Emergency [address] [address] Chest pain, unspecified type (Primary Dx); Irritable bowel syndrome with diarrhea; Suicidal ideation; Anxiety Discharge Disposition: Discharge to psych hospital or psych unit 11/06/2024 10:30 AM FORMAL WAITER/WAITRESS Telemedicine [facility] Primary Care at [address] [phone] Trenton Lomeli MD Irritable bowel syndrome with diarrhea (Primary Dx) 11/06/2024 Telephone [facility] Primary Care at [address] [phone] Trenton Lomeli MD Medical Question/Miscellaneous 11/03/2024 10:04 PM FORMAL WAITER/WAITRESS - 11/04/2024 12:14 AM [facility] Emergency [facility] Emergency Department [address] [place] [phone] Job James MD Sleep disturbance (Primary Dx); Chronic abdominal pain Discharge Disposition: Discharge to home or self care 11/03/2024 Orders Only [facility] at [address] [phone] Trenton Lomeli MD 11/03/2024 Nurse Triage [facility] Primary Care at [address] [phone] Trenton Lomeli MD 11/03/2024 Nurse Triage [facility] Primary Care at [address] [phone] Angela Kumar RN 11/02/2024 3:00 PM FORMAL WAITER/WAITRESS Lab [facility] Outpatient Lab at [address] [phone] 11/02/2024 1:45 PM FORMAL WAITER/WAITRESS Lab [facility] at [address] [phone] Hypercholesterolemia (Primary Dx) 11/02/2024 1:41 PM FORMAL WAITER/WAITRESS - 11/02/2024 11:59 PM FORMAL WAITER/WAITRESS Hospital Encounter [address] [address] Diarrhea of presumed infectious origin Discharge Disposition: Discharge to home or self care 11/02/2024 1:15 PM FORMAL WAITER/WAITRESS Office Visit [facility] Medical [facility] Primary Care at [address] [phone] Trenton Lomeli MD Diarrhea of presumed infectious origin (Primary Dx) 10/30/2024 Nurse Triage [facility] Primary Care at [address] [phone] Trenton Lomeli MD 10/30/2024 Orders Only [facility] Primary Care at [address] [phone] Provider, MD Misael from Last 3 Months Immunizations Name Administration Dates Next Due Influenza, Unspecified 11/02/2024(Deferr ed: Patient Refused),06/16/2023(Deferred: Patient Refused),06/01/2023(Deferred: Patient Refused),11/01/2022(Deferred: Patient Refused),11/01/2022(Deferred: Patient Refused),08/10/2022(Deferred: Patient Refused),10/06/2021(Deferred: Patient Refused),09/15/2020(Deferred: Patient Refused) Surgical History Surgery Date Site/Laterality Comments WISDOM TOOTH EXTRACTION Oral Surgery Tooth Extraction [place] Tooth - (Added by TW Conv) Medical [...] drink = 0.6 oz pur e alcohol) [facility] Utilities Answer Date Recorded In the [...] often do you attend chur ch or worship services? Never 11/10/2024 Do you belong to any clubs o r organizations such as sabianist groups, unions, fraternal or athletic groups, or [...] staff should administer the PHQ-9) 0 11/02/2024 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 [employer] Not on file Not on file Not on file Obstetrics History Last Filed Vital Signs Vital Sign Reading Time Taken Comments Blood Pressure 128/80 11/10/2024 9:11 AM FORMAL WAITER/WAITRESS Pulse 95 11/10/2024 9:11 AM FORMAL WAITER/WAITRESS Temperature 36.9 ??C (98.4 ??F) 11/10/2024 9:11 AM CS T Respiratory Rate 18 11/10/2024 9:11 AM FORMAL WAITER/WAITRESS Oxygen Saturation 96% 11/10/2024 9:11 AM FORMAL WAITER/WAITRESS Inhaled Oxygen Concentration - - Weight 115.5 kg (254 lb 9.6 oz) 11/09/2024 1:30 PM FORMAL WAITER/WAITRESS Height 170.2 cm (5' 7.01 ) 11/09/2024 1:30 PM CS T Body Mass Index 39.87 11/09/2024 1:30 PM FORMAL WAITER/WAITRESS Plan of Treatment Health Maintenance Due Date [...] GLUCOSE DEVICE Routine 11/09/2024 1 :58 AM FORMAL WAITER/WAITRESS TROPONIN T HIGH-SENSITIVITY 2-HOUR Timed 11/08/2024 8:01 AM FORMAL WAITER/WAITRESS XR CHEST 1 VIEW ED 11/08/2024 6:18 AM FORMAL WAITER/WAITRESS EGFR STAT 11/08/2024 6:11 AM FORMAL WAITER/WAITRESS DIFFERENTIAL AUTO STAT 11/08/2024 6:1 1 AM FORMAL WAITER/WAITRESS DRUGS OF ABUSE SCREEN, URINE WITHOUT CONFIRMATION STAT 11/08/2024 6:11 AM FORMAL WAITER/WAITRESS ETHANOL STAT 11/08/2024 6:11 AM FORMAL WAITER/WAITRESS TROPONIN T HIGH-SENSITIVITY SERIES (BASELINE, 2HR, 4HR, 6HR) STAT 11/08/2024 6:11 AM FORMAL WAITER/WAITRESS COMPREHENSIVE METABOLIC PANEL STAT 11/08/2024 6:11 AM FORMAL WAITER/WAITRESS CBC WITH AUTO DIFFERENTIAL STAT 11/08/2024 6:11 AM FORMAL WAITER/WAITRESS INFLUENZA A/B, RSV, AND COVID-19 PCR Routine 11/08/2024 6:11 AM FORMAL WAITER/WAITRESS URINALYSIS AND REFLEX TO MICROSCOPIC AND CULTURE STAT 11/08/2024 6:11 AM FORMAL WAITER/WAITRESS ECG 12-LEAD STAT 11/08/2024 6:10 AM FORMAL WAITER/WAITRESS POCT HCG, URINE Routine 11/08/2024 6:10 AM FORMAL WAITER/WAITRESS ECG 12-LEAD Routine 11/03/2024 11:04 PM FORMAL WAITER/WAITRESS CT HEAD WO CONTRAST ED 11/03/2024 1 0:53 PM FORMAL WAITER/WAITRESS MAGNESIUM Routine 11/03/2024 10:46 PM FORMAL WAITER/WAITRESS THYROID FUNCTION CASCADE Add-On 11/03/2024 10:46 PM FORMAL WAITER/WAITRESS ERYTHROCYTE SEDIMENTATION RATE STAT 11/03/2024 10:46 PM FORMAL WAITER/WAITRESS CREATINE KINASE (CK), TOTAL STAT 11/03/2024 10:46 PM FORMAL WAITER/WAITRESS PRO B-TYPE NATRIURETIC PEPTIDE STAT 11/03/2024 10:46 PM FORMAL WAITER/WAITRESS CRP (ACUTE PHASE) STAT 11/03/2024 10: 46 PM FORMAL WAITER/WAITRESS TROPONIN T HIGH-SENSITIVITY 2-HOUR Timed 11/03/2024 10:46 PM FORMAL WAITER/WAITRESS EGFR STAT 11/03/2024 7:40 PM FORMAL WAITER/WAITRESS DIFFERENTIAL AUTO STAT 11/03/2024 7: 40 PM FORMAL WAITER/WAITRESS TROPONIN T HIGH-SENSITIVITY SERIES (BASELINE, 2HR, 4HR, 6HR) STAT 11/03/2024 7:40 PM FORMAL WAITER/WAITRESS COMPREHENSIVE METABOLIC PANEL STAT 11/03/2024 7:40 PM FORMAL WAITER/WAITRESS CBC WITH AUTO DIFFERENTIAL STAT 11/03/2024 7:40 PM FORMAL WAITER/WAITRESS XR CHEST 1 VIEW ED 11/03/2024 7:17 PM FORMAL WAITER/WAITRESS ECG 12-LEAD STAT 11/03/2024 6:34 PM FORMAL WAITER/WAITRESS CRYPTOSPORIDIUM AND GIARDIA ANTIGEN ASSAY Routine 11/02/2024 1:41 PM FORMAL WAITER/WAITRESS Diarrhea of presumed infectious origin HEPATITIS A ANTIBODY, IGM Routine 11/02/2024 1:41 PM FORMAL WAITER/WAITRESS Diarrhea of presumed infectious origin CT ABDOMEN PELVIS W CONTRAST Schedule Routine, Read Routine (OP Routine) 10/28/2024 1:10 PM FORMAL WAITER/WAITRESS HM PAP SMEAR Routine 03/19/2021 from Last 3 Months or Most Recently Relevant to Health Maintenance Results * POCT glucose (11/09/2024 1:58 AM FORMAL WAITER/WAITRESS) Glucose, POC 99 70 - 199 mg/dL Blood 11/09/2024 1:58 AM FORMAL WAITER/WAITRESS 11/09/2024 1:58 AM FORMAL WAITER/WAITRESS Notinfile Unknown LAB POCT ORDERABLES - DEVICE F inal Result Performing Organization Address [facility] Co de Phone Number [id number] [address] * Troponin T high-sensitivity 2-hour (11/08/2024 8:01 AM FORMAL WAITER/WAITRESS) Trop T hs <6 <=14 ng/L Comment: Interpretive Data For further hscTnT resources including the diagnostic algorithm and an aid in interpretation, copy and paste this link: https://nrl.testcatalog.org/show/hsTrop Current Interpretive Data last revised 2020. Trop T hs delta 0 ng/L [facility] Trop T hs interp Insignificant [facility] Blood 11/08/2024 8:01 AM FORMAL WAITER/WAITRESS 11/08/2024 8:10 AM FORMAL WAITER/WAITRESS Jaclyn Xavier MD LAB BLOOD ORDERABLES Fin al Result Performing Organization Address [facility] Co de Phone Number [id number] [address] * XR Chest 1 Vw Portable (if patient condition/safety warrant portable) (11/08/2024 6:18 AM FORMAL WAITER/WAITRESS) Anatomical Region Laterality Modality Body, Chest N/A Computed Radiogr aphy 11/08/2024 6:27 AM FORMAL WAITER/WAITRESS Narrative 11/08/2024 6:29 AM FORMAL WAITER/WAITRESS EXAM DESCRIPTION: ?? XR CHEST 1 VIEW REASON FOR STUDY: ?? chest pain ?? BIBEMS from home having chest discomfort for a week, non radiating, pressure like pain and SI without any plan. Was seen 3 days ago at [facility] and cardiac work up done. No heart [...] D: ??11/08/2024 6:29 AM T: Report ID: [id number] Reading Location: ??[id number] Procedure Note Gillian Stokes MD - 11/08/2024 [...] Gillian Stokes M.D. SN T: Report ID: [id number] Reading Location: [id number] us Jaclyn Xavier MD IMG XR PROCEDURES Final Result * Troponin T high-sensitivity series (baseline, 2hr, 4hr, 6hr) (11/08/2024 6:11 AM FORMAL WAITER/WAITRESS) Pathologist [facility] Trop T hs <6 <=14 ng/L Comment: Interpretive Data For further hscTnT resources including the diagnostic algorithm and an aid in interpretation, copy and paste this link: https://nrl.testcatalog.org/show/hsTrop Current Interpretive Data last revised 2020. Blood 11/08/2024 6:11 AM FORMAL WAITER/WAITRESS 11/08/2024 6:17 AM FORMAL WAITER/WAITRESS Jaclyn Xavier MD LAB BLOOD ORDERABLES Fin al Result [facility] [address] [facility] Department [place] [address] * Influenza A/B, RSV, and COVID-19 PCR Nasopharyngeal (11/08/2024 6:11 AM FORMAL WAITER/WAITRESS) [facility] COVID-19 RNA Negative Negative Influenza A RNA Negative Negative [facility] Influenza B RNA Negative Negative [facility] RSV RNA Negative Negative [facility] Comment: Interpretive data: Testing performed by [facility]. This test is performed using the [employer] Xpert Xpress CoV-2/Flu/RSV plus assay. This is a multiplex, real-time reverse transcriptase PCR assay intended for the qualitative detection of nucleic acid from SARS-CoV-2, influenza A, influenza B, and respiratory syncytial virus. This assay has been cleared by the [place] Food and Drug administration. The performance characteristics have been verified by the [facility]. ??Results must be considered in the clinical context, and a negative result does not rule out infection. Interpretive Data last revised 2023 Nasopharyngeal 11/08/2024 6: 11 AM FORMAL WAITER/WAITRESS 11/08/2024 6:14 AM FORMAL WAITER/WAITRESS Narrative [facility] - 11/08/2024 6:54 AM FORMAL WAITER/WAITRESS Is the Patient experiencing symptoms consistent with COVID?->No Jaclyn Xavier MD LAB MICROBIOLOGY - GENER AL ORDERABLES Final Result [facility] [place] [address] * eGFR (11/08/2024 6:11 AM FORMAL WAITER/WAITRESS) Pathologist [facility] [...] last reviewed 2021. Blood 11/08/2024 6:11 AM FORMAL WAITER/WAITRESS 11/08/2024 6:17 AM FORMAL WAITER/WAITRESS Jaclyn Xavier MD LAB BLOOD ORDERABLES Fin al Result [facility] [address] [facility] Department [place] [address] * Differential, auto (11/08/2024 6:11 AM FORMAL WAITER/WAITRESS) Neutrophil abs 4.6 1.5 - 6.5 K/cumm Imm gran abs 0.0 0.0 - 0.1 K/cumm [facility] Lymphocyte abs 2.5 0.8 - 3.3 K/cumm [facility] Monocyte abs 0.7 0.2 - 0.8 K/cumm [facility] Eosinophil abs 0.2 0.0 - 0.5 K/cumm [facility] Basophil abs 0.1 0.0 - 0.1 K/cumm [facility] Neutrophil pct 57.1 % [facility] Comment: Interpretive Data Percent cell count reference ranges are not reported, since discordance with absolute values may lead to misinterpretation of CBC data. Current Interpretive Data was last revised on 2018. Imm gran pct 0.3 % [facility] Comment: Interpretive Data Percent cell count reference ranges are not reported, since discordance with absolute values may lead to misinterpretation of CBC data. Current Interpretive Data was last revised on 2018. Lymphocyte pct 31.0 % [facility] Comment: Interpretive Data Percent cell count reference ranges are not reported, since discordance with absolute values may lead to misinterpretation of CBC data. Current Interpretive Data was last revised on 2018. Monocyte pct 8.5 % [facility] Comment: Interpretive Data Percent cell count reference ranges are not reported, since discordance with absolute values may lead to misinterpretation of CBC data. Current Interpretive Data was last revised on 2018. Eosinophil pct 2.3 % [facility] Comment: Interpretive Data Percent cell count reference ranges are not reported, since discordance with absolute values may lead to misinterpretation of CBC data. Current Interpretive Data was last revised on 2018. Basophil pct 0.8 % [facility] Comment: Interpretive Data Percent cell count reference ranges are not reported, since discordance with absolute values may lead to misinterpretation of CBC data. Current Interpretive Data was last revised on 2018. Blood 11/08/2024 6:11 AM FORMAL WAITER/WAITRESS 11/08/2024 6:15 AM FORMAL WAITER/WAITRESS us Jaclyn Xavier MD LAB BLOOD ORDERABLES Fin al Result [facility] [address] [facility] [place] [address] * Urinalysis reflex to microscopic and culture Urine (11/08/2024 6:11 AM FORMAL WAITER/WAITRESS) Color, ur Straw Yellow Clarity, ur Clear Clear [facility] Specific gravity, ur 1.003 1.003 - 1.030 [facility] pH, urine 6.5 [facility] Comment: Interpretive Data ? Urine pH is affected by diet, medications, systemic acid-base disturbances, and renal tubular function. ??pH may affect urinary stone formation. ??For example, urine pH below 6.0 may help reduce the tendency for calcium phosphate stones and pH greater than 6.0 may reduce the tendency for uric acid stone formation. Source: [facility] Current Interpretive Data was last revised on 2017 Protein, ur ql Negative Negative [facility] Glucose, ur ql Negative Negative [facility] Ketones, ur Negative Negative [facility] Bilirubin, ur Negative Negative [facility] Blood, ur Negative Negative [facility] Urobilinogen, ur <2.0 <2.0 mg/dL [facility] Nitrite, ur Negative Negative [facility] Leukocyte esterase, ur Negative Negative [facility] UA reflex comment Reflex conditions for microscopic UA and culture not met. [facility] Urine 11/08/2024 6:11 AM FORMAL WAITER/WAITRESS 11/08/2024 6:15 AM FORMAL WAITER/WAITRESS us Jaclyn Xavier MD LAB MICROBIOLOGY - [facility] AL ORDERABLES Final Result Performing Organization Address [facility] Co de Phone Number [facility] [address] [place] [address] * CBC with auto differential (11/08/2024 6:11 AM FORMAL WAITER/WAITRESS) Pathologist [facility] WBC 8.0 3.8 - 9.9 K/cumm Hgb 14.1 11.9 - 15.5 g/dL [facility] Hct 43.4 35.6 - 45.5 % [facility] Plt 314 150 - 400 K/cumm [facility] MPV 9.2 9.1 - 12.3 fL [facility] RBC 4.92 3.90 - 5.20 M/cumm [facility] MCV 88.2 81.3 - 96.4 fL [facility] MCH 28.7 27.1 - 33.3 pg [facility] MCHC 32.5 32.3 - 35.7 g/dL [facility] RDW CV 12.6 11.1 - 14.9 % [facility] RDW SD 40.3 35.7 - 48.1 fL [facility] NRBC abs 0.00 0.00 - 0.01 K/cumm [facility] Blood (Blood, Venous) 11/08/2024 6:11 AM FORMAL WAITER/WAITRESS 11/08/2024 6:15 AM FORMAL WAITER/WAITRESS Jaclyn Xavier MD LAB BLOOD ORDERABLES Fin al Result [facility] [address] [facility] Department [place] [address] * Drugs of Abuse Screen, Urine without Confirmation (11/08/2024 6:11 AM FORMAL WAITER/WAITRESS) Pathologist [facility] Amphetamine, ur Not Detected CutOff 500ng/mL Comment: Interpretive Data - Amphetamines: ??Samples containing greater than 500 ng/mL d-methamphetamine ??or other cross-reacting amphetamine compounds are reported as positive. ??Amphetamine immunoassays are subject to significant false positive rates due to cross-reactivity of non-amphetamine drugs. Confirmatory testing required for definitive results. Current Interpretive Data was last reviewed 2023. Barbiturates, ur Not Detected CutOff 200ng/mL [facility] Comment: Interpretive Data - Barbiturates: ??Samples containing greater than 200 ng/mL secobarbital or other cross-reacting barbiturate compounds are reported as positive. ??False positive and false negative results are possible. Confirmatory testing required for definitive results. Current Interpretive Data was last reviewed 2023. Benzodiazepines, ur Not Detected CutOff 100ng/mL [facility] Comment: Interpretive Data - Benzodiazepines: ??Samples containing greater than 100 ng/mL nordiazepam or other cross-reacting compounds are reported as positive. False positive and false negative results are possible. Confirmatory testing required for definitive results. Current Interpretive Data was last reviewed 2023. Cannabinoids, ur Not Detected CutOff 50 ng/mL [facility] Comment: Interpretive Data - Cannabinoids: ??Samples containing greater than 50 ng/mL delta-9 THC -COOH or other cross-reacting compounds are reported as positive. ??False positive and false negative results are possible. ??Confirmatory testing required for definitive results. Current Interpretive Data was last reviewed 2023. Cocaine, ur Not Detected CutOff 150ng/mL [facility] Comment: Interpretive Data - Cocaine: ??Samples containing greater than 150 ng/mL benzoylecgonine or other cross-reacting compounds are reported as positive. False positive and false negative results are possible. Confirmatory testing required for definitive results. Current Interpretive Data was last reviewed 2023. Fentanyl, Ur Not Detected CutOff 5 ng/mL [facility] Comment: Interpretive Data - Fentanyl: ?? Samples containing greater than 5 ng/mL norfentanyl, fentanyl, or other cross-reacting fentanyl compounds are reported as positive. False positive and false negative results are possible. Confirmatory testing required for definitive results. Current Interpretive Data was last reviewed 2024. Methadone, ur Not Detected CutOff 300ng/mL [facility] Comment: Interpretive Data - Methadone: ??Samples containing greater than 300 ng/mL d,l-methadone or other cross-reacting compounds are reported as positive. ??False positive and false negative results are possible. Confirmatory testing required for definitive results. Current Interpretive Data was last reviewed 2023. Opiates, ur Not Detected CutOff 300ng/mL [facility] Comment: Interpretive Data - Opiates: ??Samples containing greater than 300 ng/mL morphine or other cross-reacting compounds are reported as positive. ??False positive and false negative results are possible. Confirmatory testing required for definitive results. Current Interpretive Data was last reviewed 2023. Oxycodone, ur Not Detected CutOff 100ng/mL [facility] Comment: Interpretive Data - Oxycodone: ??Samples containing greater than 100 ng/mL oxycodone or other cross-reacting compounds are reported as ??positive. ??False positive and false negative results are possible. Confirmatory testing required for definitive results. Current Interpretive Data was last reviewed 2023. Phencyclidine, ur Not Detected CutOff 25 ng/mL [facility] Comment: Interpretive Data - Phencyclidine: ??Samples [...] revised on 2018. Urine 11/08/2024 6:11 AM FORMAL WAITER/WAITRESS 11/08/2024 6:15 AM FORMAL WAITER/WAITRESS Narrative [facility] - 11/08/2024 6:47 AM FORMAL WAITER/WAITRESS Drug of Abuse screening is performed by immunoassay for medical purposes only. ??This is not to be used for Pain Management purposes. Jaclyn Xavier MD LAB URINE ORDERABLES Fin al Result Performing Organization Address [facility] [[email or web address]] de Phone Number [place] [phone] [facility] [employer] [address] * Ethanol (11/08/2024 6:11 AM FORMAL WAITER/WAITRESS) Ethanol <10 <=10 mg/dL Comment: Interpretive Data Legal limit of intoxication > or = 80 mg/dL Levels > or = 400 mg/dL are potentially TOXIC. Current interpretive data was last revised on 2018. Blood 11/08/2024 6:11 AM FORMAL WAITER/WAITRESS 11/08/2024 6:17 AM FORMAL WAITER/WAITRESS Jaclyn Xavier MD LAB BLOOD ORDERABLES Fin al Result Performing Organization Address [facility] [[email or web address]] de Phone Number [address] [employer] [address] * Comprehensive metabolic panel (11/08/2024 6:11 AM FORMAL WAITER/WAITRESS) Sodium 140 135 - 145 mmol/L Potassium, pl 3.6 3.3 - 4.9 mmol/L [facility] Chloride 103 97 - 110 mmol/L [facility] CO2 26 22 - 32 mmol/L [facility] Anion gap 11 2 - 15 mmol/L [facility] BUN 8 6 - 25 mg/dL [facility] Creatinine 0.63 0.60 - 1.10 mg/dL [facility] Glucose 113 70 - 199 mg/dL [facility] Comment: Interpretive Data Fasting glucose >/= [...] 2022. Calcium 9.8 8.5 - 10.3 mg/dL [facility] Bilirubin, total 1.0 0.1 - 1.2 mg/dL [facility] Protein, pl 7.7 6.5 - 8.5 g/dL [facility] Albumin 4.6 3.5 - 5.0 g/dL [facility] Alk phos 61 40 - 130 Units/L [facility] ALT 7 7 - 45 Units/L [facility] AST 19 10 - 45 Units/L [facility] Blood 11/08/2024 6:11 AM FORMAL WAITER/WAITRESS 11/08/2024 6:17 AM FORMAL WAITER/WAITRESS Jaclyn Xavier MD LAB BLOOD ORDERABLES Fin al Result [facility] [address] [facility] Department [place] [address] * ECG 12 lead (11/08/2024 6:10 AM FORMAL WAITER/WAITRESS) Ventricular Rate EKG/Min 81 BPM [facility] Atrial Rate 81 BPM [facility] OK-Interval (MSEC) 144 ms [facility] QRS-Interval (MSEC) 76 ms [facility] QT-Interval (MSEC) 394 ms [facility] QTc 457 ms [facility] P [place] 36 degrees [facility] R [place] -2 degrees [facility] T [place] 24 degrees [facility] Diagnosis Normal sinus rhythm Moderate voltage criteria for LVH, may be normal variant Borderline ECG No previous ECGs available Confirmed by MELY MONTES DE OCA M.D. ([id number]) on 11/08/2024 12:16:01 PM [facility] 11/08/2024 6:10 AM FORMAL WAITER/WAITRESS 11/08/2024 12:16 PM FORMAL WAITER/WAITRESS Jaclyn Xavier MD ECG ORDERABLES Final Re sult Performing Organization Address [facility] Co de Phone Number [facility] * POCT hCG, urine (11/08/2024 6:10 AM FORMAL WAITER/WAITRESS) HCG, ur, POC Negative Negative Lot Number [id number] QC Backgroud Clear Acceptable QC Control Line Acceptable Urine 11/08/2024 6:10 AM FORMAL WAITER/WAITRESS Jaclyn Xavier MD POINT OF CARE TEST ORDER [place]EL[place] Final Result * ECG 12 lead (11/03/2024 11:04 PM FORMAL WAITER/WAITRESS) 11/03/2024 11:0 4 PM FORMAL WAITER/WAITRESS Narrative [facility] - 11/04/2024 2:30 PM FORMAL WAITER/WAITRESS Vent Rate: 67 bpm RR Interval: 892 msec OK Interval: 142 msec QRS Duration: 89 msec QT Interval: 413 msec QTC Interval: 428 msec P-R-T [place]: 25 - 0 - 21 degrees IMPRESSION: SINUS RHYTHM MODERATE VOLTAGE CRITERIA FOR LVH, CONSIDER NORMAL VARIANT ??[MEETS CRITERIA IN ONE OF: R(aVL), S(V1), R(V5), R(V5/V6)+S(V1)] BORDERLINE ECG NO CHANGE FROM PREVIOUS TRACING NOTED Electronically Signed By: Nithin Vaca MD Job James MD ECG ORDERABLES Final Resul t Performing Organization Address [facility]/ZIP Co de Phone Number [facility] * CT Head WO Contrast (11/03/2024 10:53 PM FORMAL WAITER/WAITRESS) Anatomical Region Laterality Modality Head and Neck N/A Computed Tomogra phy 11/03/2024 10:5 6 PM FORMAL WAITER/WAITRESS Narrative 11/03/2024 10:58 PM [facility] EXAM DESCRIPTION: CT HEAD WO [...] PM T: ??11/03/2024 10:58 PM Report ID: [id number] Reading Location: ??[id number] Procedure Note Mike Kirk MD - 11/03/2024 [...] Mike Kirk M.D. AT: AT Report ID: [id number] Reading Location: [id number] us Job James MD IMG CT PROCEDURES Final Res ult * Troponin T high-sensitivity 2-hour (11/03/2024 10:46 PM FORMAL WAITER/WAITRESS) Trop T hs 7 <=14 ng/L Comment: [...] a [place]. Blood 11/03/2024 10:4 6 PM FORMAL WAITER/WAITRESS 11/03/2024 10:50 PM FORMAL WAITER/WAITRESS Job James MD LAB BLOOD ORDERABLES Final Result [facility] ([place]) [address] [facility] [place] [address] * Pro B-type natriuretic peptide (11/03/2024 10:46 PM FORMAL WAITER/WAITRESS) NT-proBNP 51 <=300 pg/mL Comment: Interpretive Comments: [...] Date: 2018. Blood 11/03/2024 10:4 6 PM FORMAL WAITER/WAITRESS 11/03/2024 10:50 PM FORMAL WAITER/WAITRESS Job James MD LAB BLOOD ORDERABLES Edited Result - Final [facility] ([place]) 1 [facility] [place] [address] * Thyroid Function [place] (11/03/2024 10:46 PM FORMAL WAITER/WAITRESS) TSH 1.44 0.30 - 4.20 mcIUnit/mL Blood 11/03/2024 10:4 6 PM FORMAL WAITER/WAITRESS 11/03/2024 10:50 PM FORMAL WAITER/WAITRESS Job James MD LAB BLOOD ORDERABLES Final Result Performing Organization Address [facility] Co de Phone Number [facility] ([place]) [address] [facility] [employer] [address] * (ABNORMAL) Erythrocyte sedimentation rate (11/03/2024 10:46 PM FORMAL WAITER/WAITRESS) Erythrocyte sedimentation rate 29(H) 1 - 20 mm/hr Blood 11/03/2024 10:4 6 PM FORMAL WAITER/WAITRESS 11/03/2024 10:50 PM FORMAL WAITER/WAITRESS Job James MD LAB BLOOD ORDERABLES Final Result Performing Organization Address City/[facility]/ZIP Co de Phone Number [facility] ([place]) [address] [facility] [place] [address] * CRP (acute phase) (11/03/2024 10:46 PM FORMAL WAITER/WAITRESS) CRP <3.0 <=10.0 mg/L Blood 11/03/2024 10:4 6 PM FORMAL WAITER/WAITRESS 11/03/2024 10:50 PM FORMAL WAITER/WAITRESS Job James MD LAB BLOOD ORDERABLES Final Result Performing Organization Address City/[facility]/ZIP Co de Phone Number [facility] ([place]) 1 [facility] [place] [employer] [address] * Magnesium (11/03/2024 10:46 PM FORMAL WAITER/WAITRESS) Magnesium 1.8 1.4 - 2.5 mg/dL Blood 11/03/2024 10:4 6 PM FORMAL WAITER/WAITRESS 11/03/2024 10:50 PM FORMAL WAITER/WAITRESS us Job James MD LAB BLOOD ORDERABLES Final Result Performing Organization Address City/[facility]/ZIP Co de Phone Number [facility] ([place]) [address] [facility] [employer] [address] * Creatine kinase (CK), total (11/03/2024 10:46 PM FORMAL WAITER/WAITRESS) CK 69 30 - 200 Units/L Blood 11/03/2024 10:4 6 PM FORMAL WAITER/WAITRESS 11/03/2024 10:50 PM FORMAL WAITER/WAITRESS Job James MD LAB BLOOD ORDERABLES Final Result Performing Organization Address [facility] Co de Phone Number [facility] ([place]) [address] [facility] [place] [address] * Troponin T high-sensitivity series (baseline, 2hr, 4hr, 6hr) (11/03/2024 7:40 PM FORMAL WAITER/WAITRESS) Trop T hs <6 <=14 ng/L Comment: Interpretive Data For further hscTnT resources including the diagnostic algorithm and an aid in interpretation, copy and paste this link: https://nrl.testcatalog.org/show/hsTrop Current Interpretive Data last revised 2020. Blood 11/03/2024 7:40 PM FORMAL WAITER/WAITRESS 11/03/2024 7:42 PM FORMAL WAITER/WAITRESS Job James MD LAB BLOOD ORDERABLES Final Result [facility] ([place]) [address] [facility] [place] [address] * eGFR (11/03/2024 7:40 PM FORMAL WAITER/WAITRESS) Pathologist [facility] [...] last reviewed 2021. Blood 11/03/2024 7:40 PM FORMAL WAITER/WAITRESS 11/03/2024 7:42 PM FORMAL WAITER/WAITRESS us Job James MD LAB BLOOD ORDERABLES Final Result [facility] ([place]) [address] [facility] [place] [address] * Differential, auto (11/03/2024 7:40 PM FORMAL WAITER/WAITRESS) Neutrophil abs 4.3 1.5 - 6.5 K/cumm [...] revised on 2018. Blood 11/03/2024 7:40 PM FORMAL WAITER/WAITRESS 11/03/2024 7:42 PM FORMAL WAITER/WAITRESS Job James MD LAB BLOOD ORDERABLES Final Result [facility] ([place]) 1 [facility] [place] [address] * CBC with auto differential (11/03/2024 7:40 PM FORMAL WAITER/WAITRESS) WBC 6.8 3.8 - 9.9 K/cumm Hgb [...] (JD) Blood (Blood, Venous) 11/03/2024 7:40 PM FORMAL WAITER/WAITRESS 11/03/2024 7:42 PM FORMAL WAITER/WAITRESS Job James MD LAB BLOOD ORDERABLES Final Result [facility] ([place]) [address] [facility] [place] [address] * (ABNORMAL) Comprehensive metabolic panel (11/03/2024 7:40 PM FORMAL WAITER/WAITRESS) Pathologist [facility] [...] [facility] ([place]) Blood 11/03/2024 7:40 PM FORMAL WAITER/WAITRESS 11/03/2024 7:42 PM FORMAL WAITER/WAITRESS us Job James MD LAB BLOOD ORDERABLES Final Result [facility] ([place]) [address] [facility] [place] [address] * XR Chest 1 Vw Portable (if patient condition/safety warrant portable) (11/03/2024 7:17 PM FORMAL WAITER/WAITRESS) Anatomical Region Laterality Modality Body, Chest N/A Computed Radiogr aphy 11/03/2024 7:23 PM FORMAL WAITER/WAITRESS Narrative 11/03/2024 7:24 PM FORMAL WAITER/WAITRESS EXAM DESCRIPTION: ?? XR CHEST 1 VIEW [...] 7:24 PM - Electronically signed by ??Paco Reyse M.D. RB: KESHA D: ??11/03/2024 7:24 PM T: ??11/03/2024 7:24 PM Report ID: [id number] Reading Location: ??[id number] Procedure Note Paco Reyes MD - 11/03/2024 [...] Paco Reyes M.D. RB: KESHA Report ID: [id number] Reading Location: [id number] Job James MD IMG XR PROCEDURES Final Res ult * ECG 12 lead (11/03/2024 6:34 PM FORMAL WAITER/WAITRESS) 11/03/2024 6:34 PM FORMAL WAITER/WAITRESS Narrative [facility] - 11/04/2024 2:30 PM FORMAL WAITER/WAITRESS Vent Rate: 89 bpm RR Interval: 668 msec OK Interval: 116 msec QRS Duration: 88 msec QT Interval: 356 msec QTC Interval: 403 msec P-R-T [place]: 19 - 18 - 2 degrees IMPRESSION: SINUS RHYTHM WITH SHORT OK INTERVAL LOW QRS VOLTAGE IN PRECORDIAL LEADS ??[QRS DEFLECTION < 1.0 mV IN CHEST LEADS] POSSIBLE ANTERIOR MYOCARDIAL INFARCTION , OF INDETERMINATE AGE [30 ms Q WAVE IN V3/V4, OR R < 0.2 mV IN V4] ABNORMAL ECG Compared to prior EKG, heart rate has increased Electronically Signed By: Nithin Vaca MD Job James MD ECG ORDERABLES Final Resul t [facility] [email or web address] [facility] * Hepatitis A antibody, IgM Blood (11/02/2024 1:41 PM FORMAL WAITER/WAITRESS) Hep A IgM Nonreactive Nonreactive Comment: Interpretive Data: If Hep A IgM Ab is reported as Equivocal, a new sample should be drawn in two weeks for testing. Current interpretive data was last revised on 20. Blood 11/02/2024 1:41 PM FORMAL WAITER/WAITRESS 11/02/2024 8:17 PM FORMAL WAITER/WAITRESS Trenton Lomeli MD LAB MICROBIOLOGY - GENERAL ORDERABLES Final Result [facility] [address] Department [place] [address] * Cryptosporidium and Giardia antigen assay Stool (11/02/2024 1:41 PM FORMAL WAITER/WAITRESS) Giardia Ag Negative Negative Comment:Testing performed by : [facility], [address] [place]., [address] Cryptosporidium Ag Negative Negative [facility] Comment: Interpretive data: Testing performed by the [facility] Microbiology Laboratory using an immunoassay that detects Cryptosporidium and Giardia antigens in stool specimens. ??If comprehensive examination for ova and parasites is required, please request Ova and Parasite Examination . Testing performed by: [facility], [address] [place]., [address] Stool 11/02/2024 1:41 PM FORMAL WAITER/WAITRESS 11/02/2024 10:22 PM FORMAL WAITER/WAITRESS Trenton Lomeli MD LAB MICROBIOLOGY - GENERAL ORDERABLES Final Result Performing Organization Address City/State/[facility] Co nv Phone Number [facility] [address] [facility] [place] [address] * CT Abdomen Pelvis W Contrast (10/28/2024 1:10 PM FORMAL WAITER/WAITRESS) Anatomical Region Laterality Modality Body N/A Computed Tomogra phy Historical Provider IMG CT PROCEDURES Final R esult * HM PAP SMEAR (03/19/2021) Historical Provider HEALTH MAINTENANCE Final Result from Last 3 Months or Most Recently Relevant to Health Maintenance [place] Advance [place] For more information, please contact: [phone] * Full Code (Latest Code Status on File) Date Activated Date Inactivated Comments 11/09/2024 2:20 PM 11/10/2024 6:22 PM Care Teams Dinkey Engine Firer Relationship Specialty Start Date End Date Trenton Lomeli MD PCP - General Family Medicine 10/06/21 Neelima Velazquez MD [address] [address] Consulting Physician Gynecology 10/06/21 Maura Wilson MD [address] [place] [address] Consulting Physician Cardiology 06/16/23
--- OUTSIDE RECORDS SUMMARY | 2024-11-12 14:06 | XMS_ITS | Encounter Summary ---
Author Organization [facility] Healthcare Address [address] [place] [address] Care Team Providers Care Electrical Estimator Name Role Phone Trenton Lomeli MD Primary Care Provider [phone] Neelima Velazquez MD Unavailable [phone] Maura Wilson MD Unavailable [phone] Encounter Details Date Type Department Care Team (Late st Contact Info) Description 11/03/2024 Orders Only [facility] Medical Group Primary Care at [address] [address] Trenton Lomeli MD [address] [place] [address] [address] [place] [address] Social History Tobacco Use Types [...] on file Legal Sex Female 4:15 AM 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 FIRE OPERATOR Gender Identity Not on file Sexual Orientation Not on file 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
--- OUTSIDE RECORDS SUMMARY | 2024-11-12 14:07 | XMS_ITS | Encounter Summary ---
Author Organization [facility] Healthcare Address [address] [place] [address] Care Team Providers Care Bpm Developer Name Role Phone Trenton Lomeli MD Primary Care Provider [phone] Neelima Velazquez MD Unavailable [phone] Maura Wilson MD Unavailable [phone] Encounter Details Date Type Department Care Team (Latest Contact Info) Description 11/02/2024 1:41 PM LEGAL RECEPTIONIST - 11/02/2024 11:59 PM LEGAL RECEPTIONIST Hospital Encounter [facility] [address] [place] [address] Diarrhea of presumed infectious origin [...] on file Legal Sex Female 4:15 AM LEGAL RECEPTIONIST Gender Identity Not on file Sexual Orientation Not on file 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, [address] [place]., [address] Cryptosporidium Ag Negative Negative ARI Comment: Interpretive data: Testing performed by the [facility] Microbiology Laboratory using an immunoassay that detects Cryptosporidium and Giardia antigens in stool specimens. ??If comprehensive examination for ova and parasites is required, please request Ova and Parasite Examination . Testing performed by: [facility], [address] [place]., [address] Stool 11/02/2024 1:41 PM LEGAL RECEPTIONIST 11/02/2024 10:22 PM LEGAL RECEPTIONIST Trenton Lomeli MD LAB MICROBIOLOGY - GENERAL ORDERABLES Final Result Performing Organization Address [facility] Phone Number [place] [address] [email or web address] [address] * Hepatitis A antibody, IgM Blood (11/02/2024 1:41 PM LEGAL RECEPTIONIST) Hep A IgM Nonreactive Nonreactive Comment: Interpretive Data: If Hep A IgM Ab is reported as Equivocal, a new sample should be drawn in two weeks for testing. Current interpretive data was last revised on 20. Blood 11/02/2024 1:41 PM LEGAL RECEPTIONIST 11/02/2024 8:17 PM LEGAL RECEPTIONIST Trenton Lomeli MD LAB MICROBIOLOGY - GENERAL ORDERABLES Final Result Performing Organization Address [facility] Co de Phone Number [place] [address] [address] [email or web address] [place], [place] [phone] documented in this encounter Visit Diagnoses Diagnosis Diarrhea of presumed infectious origin documented in this encounter Care Teams Bpm Developer Relationship Specialty Start Date End Date Trenton Lomeli MD PCP - General Family Medicine 10/06/21 Neelima Velazquez MD [address] [address] Consulting Physician Gynecology 10/06/21 Maura Wilson MD [address] [place] [address] Consulting Physician Cardiology 06/16/23 documented as of this encounter
--- OUTSIDE RECORDS SUMMARY | 2024-11-12 14:07 | XMS_ITS | Encounter Summary ---
Author Organization [facility] Medical Group Address [address] [address] Care Team Providers Care Apartment Rental Agent Name Role Phone Trenton Lomeli MD Primary Care Provider [phone] Neelima Velazquez MD Unavailable [phone] Reason for Visit * Reason Comments Cold Symptoms Patient presents tod with fever, nasal drainage, sore throat, and chills.The patient's symptoms started last Wednesday. For the first 3 days, patient had chills and fevers. 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 Not on file Not on file documented as of this encounter Last Filed Vital Signs Vital Sign Reading Time Taken Comments Blood Pressure 144/91 10/03/2022 12:39 PM BUSINESS FUNCTIONAL ANALYST Pulse 104 10/03/2022 12:39 PM BUSINESS FUNCTIONAL ANALYST Temperature 37.1 ??C (98.8 ??F) 10/03/2022 12:[address] Respiratory Rate 28 10/03/2022 12:39 PM BUSINESS FUNCTIONAL ANALYST Oxygen Saturation 95% 10/03/2022 12:39 PM BUSINESS FUNCTIONAL ANALYST Inhaled Oxygen Concentration - - Weight 130.6 kg (288 lb) 10/03/2022 12:39 PM BUSINESS FUNCTIONAL ANALYST Height 171.5 cm (5' 7.5 ) 10/03/2022 12:39 PM CS T Body Mass Index 44.44 10/03/2022 12:39 PM BUSINESS FUNCTIONAL ANALYST documented in this encounter Patient Instructions * Patient Instructions* Gayla Sykes, DEVELOPMENT CHEMIST - 10/03/2022 12:45 PM BUSINESS FUNCTIONAL ANALYST Symptomatic treatments include: -Over the counter antihistamine [...] same utensils or glass, and use hand operations label clerk before touching people or common surfaces. -Apply [...] SERIOUS COMPLICATION AND REQUIRES IMMEDIATE EMERGENCY ATTENTION. NESS FUNCTIONAL ANALYST * Attachments The following attachments cannot be sent through Care Everywhere. * Sinusitis (Room Service Bellhop) (Irish) documented in this encounter Ordered Prescriptions Prescription [...] rash, and abdominal pain. Patient has taken [id number] cold medications for her symptoms. Patient is [...] and frontal sinus tenderness present. Mouth/Throat: Lips: Bradner. Mouth: Mucous membranes are moist. Pharynx: Uvula [...] same utensils or glass, and use hand operations label clerk before touching people or common surfaces. -Apply [...] can return to work Patient Education Sinusitis CRACKER OFF: Sinusitis is inflammation or infection of your [...] ask them during your visits. ?? 2017 [employer] Information is for End User's use only and may not be sold, redistributed or otherwise used for commercial purposes. All illustrations and images included in CareNotes?? are the copyrighted property of [employer]. or Keep Your [facility]. The above information is an home help aide only. It is not intended as medical advice for individual conditions or treatments. Talk to your doctor, nurse or pharmacist before following any medical regimen to see if it is safe and effective for you. Gayla Sykes NP NESS FUNCTIONAL ANALYST documented in this encounter Miscellaneous Notes * Addendum Note - Karmen Reyes CMA - 10/03/2022 12:45 PM CSTAddended by: KARMEN REYES on: 10/03/2022 01:51 PM Modules accepted: Orders NESS FUNCTIONAL ANALYST documented in this encounter Plan of Treatment Not on file documented as of this encounter Procedures Procedure Name Priority Date/Time Associated Diagnosis Comments POC INFLUENZA A/B, COVID-19 ANTIGEN Routine 10/03/2022 1:04 PM BUSINESS FUNCTIONAL ANALYST Acute non-recurrent pansinusitis POCT RAPID STREP Routine 10/03/2022 12:5 8 PM BUSINESS FUNCTIONAL ANALYST Acute non-recurrent pansinusitis documented in this encounter Results * Throat culture Throat (10/03/2022 1:52 PM BUSINESS FUNCTIONAL ANALYST) Report Final Report: No growth of pathogens. ARI CLAY Comment:Testing performed by : [facility], [address], [place]., [address] Throat 10/03/2022 1:52 PM BUSINESS FUNCTIONAL ANALYST 10/04/2022 1:26 AM BUSINESS FUNCTIONAL ANALYST Narrative ARI CLAY - 10/05/2022 1:28 PM BUSINESS FUNCTIONAL ANALYST Testing performed by [facility] ([phone]). Gayla M. Trower DEVELOPMENT CHEMIST LAB MICROBIOLOGY - GENERAL ORD ERABLES Final Result ARI CLAY [address] [address] Department [place] [address] * POC Influenza A/B, COVID-19 antigen (10/03/2022 1:04 PM BUSINESS FUNCTIONAL ANALYST) Influenza A Ag, POC Negative Negative [facility] Influenza B Ag, POC Negative Negative [facility] COVID-19 Ag POC Presumptive Negative Presumptive Negative, Invalid [facility] Nasal 10/03/2022 1:04 PM BUSINESS FUNCTIONAL ANALYST us Gayla Sykes DEVELOPMENT CHEMIST POINT OF CARE TEST ORDERABLES Final Result Performing Organization Address City/[facility] Co de Phone Number [facility] [address] * POCT rapid strep A (10/03/2022 12:58 PM BUSINESS FUNCTIONAL ANALYST) Rapid Strep A, POC Negative Swab 10/03/2022 12:5 8 PM BUSINESS FUNCTIONAL ANALYST us Gayla Sykes DEVELOPMENT CHEMIST POINT OF CARE TEST ORDERABLES Final Result documented in this encounter Visit Diagnoses Diagnosis Acute non-recurrent pansinusitis- Primary Acute non-recurrent pansinusitis documented in this encounter Additional Health Concerns Infection Onset Date Last Indicated Resolved Time COVID: Suspected 10/03/2022 10/03/2022 10/03/2022 1:05 PM BUSINESS FUNCTIONAL ANALYST documented as of this encounter Care Teams Apartment Rental Agent Relationship Specialty Start Date End Date Trenton Lomeli MD PCP - General Family Medicine 10/06/21 Neelima Velazquez MD [address] [place] [address] Consulting Physician Gynecology 10/06/21 documented as of this encounter
--- OUTSIDE RECORDS SUMMARY | 2024-11-12 14:07 | XMS_ITS | Encounter Summary ---
Author Organization [facility] Healthcare Address [address] [place] [address] Care Team Providers Care Wallpaper Scraper Name Role Phone Trenton Lomeli MD Primary Care Provider [phone] Neelima Velazquez MD Unavailable [phone] Maura Wilson MD Unavailable [phone] Reason for Visit * Reason Comments Follow-up F/u [facility], pt went on 10/26/24, 10/28/24 and 11/01/24 Encounter Details Date Type Department Care Team (Late st Contact Info) Description 11/02/2024 1:15 PM BANK AND SAVINGS SECURITIES TRADER Office Visit [facility] Medical Group Primary Care at [address] [address] Trenton Lomeli MD [address] [place] [address] [address] [place] [address] Diarrhea of presumed infectious origin [...] on file Legal Sex Female 4:15 AM BANK AND SAVINGS SECURITIES TRADER Gender Identity Not on file Sexual Orientation Not on file 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 Not on file Not on file Not on file documented as of this encounter Last Filed Vital Signs Vital Sign Reading Time Taken Comments Blood Pressure 110/80 11/02/2024 1:15 PM BANK AND SAVINGS SECURITIES TRADER Pulse 80 11/02/2024 1:15 PM BANK AND SAVINGS SECURITIES TRADER Temperature 36.9 ??C (98.4 ??F) 11/02/2024 1:15 PM CS T Respiratory Rate 16 11/02/2024 1:15 PM BANK AND SAVINGS SECURITIES TRADER Oxygen Saturation 96% 11/02/2024 1:15 PM BANK AND SAVINGS SECURITIES TRADER Inhaled Oxygen Concentration - - Weight 120.7 kg (266 lb) 11/02/2024 1:15 PM BANK AND SAVINGS SECURITIES TRADER Height 170.2 cm (5' 7 ) 11/02/2024 1:15 PM BANK AND SAVINGS SECURITIES TRADER Body Mass Index 41.66 11/02/2024 1:15 PM BANK AND SAVINGS SECURITIES TRADER documented in this encounter Patient Instructions * Patient Instructions* Trenton Lomeli MD - 11/02/2024 1:15 PM BANK AND SAVINGS SECURITIES TRADER Lomotil trial (take no more than 2ce per day, early on) Stool study labs as ordered Stay hydrated Thanks for coming in today! My medical assistants and I are thankful you have trusted us with your care, and hope that you received EXCELLENT care today! Please do not hesitate to call if you have any questions or concerns at [phone]. You may receive a phone call, text, MYCHART message, or e-mail asking about your care today. We would love to hear your feedback on how EXCELLENT your care wastoday! Wishing you better health, always. Dr. Lomeli AND SAVINGS SECURITIES TRADER * Attachments The following attachments cannot be sent through Care Everywhere. * Nutrition Tips for Relief of Diarrhea (Surveillance Specialist) (Bulgarian) documented in this encounter Ordered Prescriptions Prescription [...] a 34 y.o. female. Chief Complaint Follow-up ([facility] ER, pt went on 10/26/24, 10/28/24 and [...] infectious cause still considered; reviewed labs from [facility] 11/01 Lomotil trial Stool study labs as [...] office note has been partially dictated using [employer] software, and as a result portions of the record may have been created with this software. Occasional wrong-word or 'wadym-l-[id number]' substitutions may have occurred due to the inherent limitations of voice recognition software. Read the chartcarefully and recognize, using context, where substitutions have occurred. AND SAVINGS SECURITIES TRADER documented in this encounter Miscellaneous Notes * Addendum Note - Rani Reyes - 11/02/2024 1:15 PM CSTAddended by: RANI REYES on: 11/02/2024 01:54 PM Modules accepted: Orders AND SAVINGS SECURITIES TRADER * Addendum Note - Rani Reyes - 11/02/2024 1:15 PM CSTAddended by: RANI REYES on: 11/02/2024 01:54 PM Modules accepted: Orders AND SAVINGS SECURITIES TRADER * Addendum Note - Kristie Menon - 11/02/2024 1:15 PM CSTAddended by: KRISTIE MENON on: 11/02/2024 03:01 PM Modules accepted: Orders AND SAVINGS SECURITIES TRADER documented in this encounter Plan of Treatment Not on file documented as of this encounter Results * Cryptosporidium and Giardia antigen assay Stool (11/02/2024 1:41 PM BANK AND SAVINGS SECURITIES TRADER) Giardia Ag Negative Negative Comment:Testing performed by : [facility], [address] [place]., [address] Cryptosporidium Ag Negative Negative ARI CLAY Comment: Interpretive data: Testing performed by the [facility] using an immunoassay that detects Cryptosporidium and Giardia antigens in stool specimens. ??If comprehensive examination for ova and parasites is required, please request Ova and Parasite Examination . Testing performed by: [facility], [address] [place]., [address] Stool 11/02/2024 1:41 PM BANK AND SAVINGS SECURITIES TRADER 11/02/2024 10:22 PM BANK AND SAVINGS SECURITIES TRADER Trenton Lomeli MD LAB MICROBIOLOGY - GENERAL ORDERABLES Final Result Performing Organization Address [facility] de Phone Number [facility] [address] [address] [place] [address] * Hepatitis A antibody, IgM Blood (11/02/2024 1:41 PM BANK AND SAVINGS SECURITIES TRADER) Hep A IgM Nonreactive Nonreactive Comment: Interpretive Data: If Hep A IgM Ab is reported as Equivocal, a new sample should be drawn in two weeks for testing. Current interpretive data was last revised on 20. Blood 11/02/2024 1:41 PM BANK AND SAVINGS SECURITIES TRADER 11/02/2024 8:17 PM BANK AND SAVINGS SECURITIES TRADER Trenton Lomeli MD LAB MICROBIOLOGY - GENERAL ORDERABLES Final Result Performing Organization Address [facility] Co de Phone Number [facility] [address] [address] [place] [address] documented in this encounter Visit Diagnoses Diagnosis [...] 11/02/2024 added in this encounter Care Teams Wallpaper Scraper Relationship Specialty Start Date End Date Trenton Lomeli MD PCP - General Family Medicine 10/06/21 Neelima Velazquez MD [address] [address] Consulting Physician Gynecology 10/06/21 Maura Wilson MD [address] [facility] [address] [place] [address] Consulting Physician Cardiology 06/16/23 documented as of this encounter
--- OUTSIDE RECORDS SUMMARY | 2024-11-12 14:07 | XMS_ITS | Encounter Summary ---
Author Organization [facility] Address [address] [place] [address] Phone Care Team Providers Care Certified Personal Chef Name Role Phone Trenton Lomeli MD Primary Care Provider [phone] Neelima Velazquez MD Unavailable [phone] Reason for Referral * Cardiology (Routine) - Closed Specialty Diagnoses / Procedures Referred By Contac t Referred To Contact Diagnoses POTS (postural orthostatic tachycardia syndrome) Procedures ECG 12 lead Emilie Wilson MD Phone: tel: fax: [facility] (All Locations) Referral ID Status Reason Start Date Expiration Date Visits Re quested Visits Authorized [id number] Closed 02/22/2023 03/23/2024 1 1 * Cardiology (Routine) - Closed Specialty Diagnoses / Procedures Referred By Contac t Referred To Contact Diagnoses POTS (postural orthostatic tachycardia syndrome) Procedures Transthoracic Echo (TTE) Complete W Doppler/CF Emilie Wilson MD Phone: tel: fax: [facility] (All Locations) Referral ID Status Reason Start Date Expiration Date Visits Re quested Visits Authorized [id number] Closed 02/19/2023 03/20/2024 1 1 Encounter Details Date Type Department Care Team (Late st Contact Info) Description 02/19/2023 3:30 PM CDT Office Visit [facility] Cardiology [address] [facility] 8th [place] [address] [place] [address] Emilie Wilson MD [address] [facility] [address] [place] [address] POTS (postural orthostatic tachycardia syndrome) (Primary Dx) [...] file Legal Sex Female 4:15 AM BUSINESS SEGMENT MANAGER Gender Identity Not on file Sexual Orientation Not on file 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 Lomeli: Chief Complaint: A 32-year-old female referred for evaluation of POTS. Problem List: 1. Possible postural tachycardia syndrome. a. Said to have 3 prior echocardiograms at [facility], most recently in 2018 with no recordsavailable. 2. Anxiety disorder. a. Previously seeing a psychiatrist. Currently seeing a therapist. 3. Coronavirus disease-August 2022. No hospitalizations. No oxygen. 4. History of serotonin syndrome. a. This occurred when she was at [facility] in [place], [place], associated with SSRI-hydroxyzine sleep medicine combination [...] going to gym and working with a corporate sales trainer. Her weight had gone down from 330 pounds to 260 pounds. Then, she had an increase in her symptoms and has not exercised and gained weight again. She tells me that she uses liquid IV when she wakes up feeling poorly, and it helps. She states in late December she was hospitalized for a week at [facility] due to dehydration, felt better with IV [...] heart rate 107; 5 minutes, 136/96, heart [id number]; 10 minutes 128/83, heart rate 112. Head [...] normal. Data: My personal review of the [facility] mobile court recording monitor for nearly 24 hours in December [...] is able to work out with a corporate sales trainer. We discussed the elective nature of tilt-table testing and I explained that tilt-table testing is the only diagnostic test for POTS. I explained the risks and benefits. [facility] and asked that she call [...] 09:16 AM Emilie Wilson M.D., F.A.C.C., F.H.R.S. tung nut grower MG/mts cc: TRENTON LOMELI MD / / [...] #: 0 Date of : 1990 (F) Warehouse Representative: Pia Masters RDCS Referring Physician: EMILIE WILSON MD Contrast Agent: Patient Refused Contrast Contrast Administered by: Supervised/Interpreted by: Celeste Agosto MD Diagnosis: Location: [facility] Reason for test: POTS MV Structure: Normal, [...] 2=Hypo 3=Akinetic 4=Dyskin./Aneurysm 0=Not visualized) Parasternal Long [place]:MAS=1 BAS=1 MIL=1 ANAI=1 Parasternal Short [place]:MAS=1 MIS=1 PA=1 MIL=1 MAL=1 MA=1 Apical 4 Chambers:=1 MIS=1 BIS=1 BAL=1 MAL=1 AL=1 AC=1 Apical 2 Chambers:AI=1 PA=1 BI=1 BA=1 MA=1 AA=1 AC=1 LV Global [...] MD By signing this report, the attending marine propulsion technician certifies that he or she has personally supervised and interpreted the echocardiogram and has reviewed and or edited and agrees with the written comments contained within the report. Procedure Note Celeste Agosto MD - 05/13/2023 Patient name: Alia Fabian Date of test: 05/12/2023 Type of test: [facility] #: 0 Date of : 1990 (F) Warehouse Representative: Pia Masters RDCS Referring Physician: EMILIE WILSON MD Contrast Agent: Patient Refused Contrast Contrast Administered by: Supervised/Interpreted by: Celeste Agosto MD Diagnosis: Location: [facility] Reason for test: POTS MV Structure: Normal, [...] 2=Hypo 3=Akinetic 4=Dyskin./Aneurysm 0=Not visualized) Parasternal Long [place]:MAS=1 BAS=1 MIL=1 ANAI=1 Parasternal Short [place]:MAS=1 MIS=1 PA=1 MIL=1 MAL=1 MA=1 Apical 4 Chambers:=1 MIS=1 BIS=1 BAL=1 MAL=1 AL=1 AC=1 Apical 2 Chambers:AI=1 PA=1 BI=1 BA=1 MA=1 AA=1 AC=1 LV Global [...] MD By signing this report, the attending marine propulsion technician certifies that he or she has personally [...] tachycardia documented in this encounter Care Teams Certified Personal Chef Relationship Specialty Start Date End Date Trenton Lomeli MD PCP - General Family Medicine 10/06/21 Neelima Velazquez MD [address] [place] [address] Consulting Physician Gynecology 10/06/21 documented as of this encounter
--- OUTSIDE RECORDS SUMMARY | 2024-11-12 14:07 | XMS_ITS | Encounter Summary ---
Author Organization [facility] Healthcare Address [address] [place] [address] Care Team Providers Care Farm Equipment Service Technician Name Role Phone Trenton Lomeli MD Primary Care Provider [phone] Neelima Velazquez MD Unavailable [phone] Maura Wilson MD Unavailable [phone] Encounter Details Date Type Department Care Team (Late st Contact Info) Description 11/02/2024 1:45 PM BLANKET CUTTING MACHINE OPERATOR Lab [facility] Outpatient Lab at [address] [address] Hypercholesterolemia (Primar y Dx) Social [...] on file Legal Sex Female 4:15 AM BLANKET CUTTING MACHINE OPERATOR Gender Identity Not on file Sexual Orientation Not on file 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 on file Not on file Not on file documented as of this encounter Plan of Treatment Not on file documented as of this encounter Visit Diagnoses Diagnosis Hypercholesterolemia- Primary Pure hypercholesterolemia documented in this encounter Care Teams Farm Equipment Service Technician Relationship Specialty Start Date End Date Trenton Lomeli MD PCP - General Family Medicine 10/06/21 Neelima Velazquez MD [address] [address] Consulting Physician Gynecology 10/06/21 Maura Wilson MD [address] [place] [address] Consulting Physician Cardiology 06/16/23 documented as of this encounter
--- OUTSIDE RECORDS SUMMARY | 2024-11-12 14:07 | XMS_ITS | Encounter Summary ---
Author Organization [facility] Address [address] [place] [address] Phone Care Team Providers Care Lighting Fixtures Decorator Name Role Phone Trenton Lomeli MD Primary Care Provider [phone] Neelima Velazquez MD Unavailable [phone] Encounter Details Date Type Department Care Team (Late st Contact Info) Description 12/29/2022 Telephone [facility] Cardiology [address] [facility] 8th [place] [address] [place] [address] Maura Wilson MD [address] [facility] [address] [place], [place] [id number] Social History Tobacco Use Types Packs/Day Years [...] on file Legal Sex Female 4:15 AM ANIMAL ECOLOGIST Gender Identity Not on file Sexual Orientation Not on file 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 Please call to reschedule. AL ECOLOGIST documented in this encounter Plan of Treatment Not on file documented as of this encounter Visit Diagnoses Not on filedocumented in this encounter Care Teams Lighting Fixtures Decorator Relationship Specialty Start Date End Date Trenton Lomeli MD PCP - General Family Medicine 10/06/21 Neelima Velazquez MD [address] [address] Consulting Physician Gynecology 10/06/21 documented as of this encounter
--- OUTSIDE RECORDS SUMMARY | 2024-11-12 14:07 | XMS_ITS | Encounter Summary ---
Author Organization [facility] Healthcare Address [address] [place] [address] Care Team Providers Care Head Machine Feeder Name Role Phone Trenton Lomeli MD Primary Care Provider [phone] Neelima Velazquez MD Unavailable Maura Wilson MD Unavailable [phone] Reason for Referral * MRI/CAT/PET Scan (Routine) - Closed Specialty Diagnoses / Procedures Referred By Contac t Referred To Contact Radiology Procedures CT Abdomen Pelvis W Contrast Misael Palacios MD [address] [place] [address] Phone: tel: Referral ID Status Reason Start Date Expiration Date Visits Re quested Visits Authorized [id number] Closed 10/30/2024 11/29/2025 1 1 SPRAYER Encounter Details Date Type Department Care Team (Late st Contact Info) Description 10/30/2024 Orders Only [facility] Medical Group Primary Care at [address] [address] Misael Palacios MD [address] [place] [address] Social History Tobacco Use Types [...] on file Legal Sex Female 4:15 AM WEED SPRAYER Gender Identity Not on file Sexual Orientation Not on file 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 Not on file Not on file Not on file documented as of this encounter Plan of Treatment Not on file documented as of this encounter Procedures Procedure Name Priority Date/Time Associated Diagnosis Comments CT ABDOMEN PELVIS W CONTRAST Schedule Routine, Read Routine (OP Routine) 10/28/2024 1:10 PM WEED SPRAYER documented in this encounter Results * CT Abdomen Pelvis W Contrast (10/28/2024 1:10 PM WEED SPRAYER) Anatomical Region Laterality Modality Body N/A Computed Tomogra phy Historical Provider MD [facility] CT PROCEDURES Final R esult documented in this encounter Visit Diagnoses Not on filedocumented in this encounter Care Teams Head Machine Feeder Relationship Specialty Start Date End Date Trenton Lomeli MD PCP - General Family Medicine 10/06/21 Neelima Velazquez MD [address] [address] Consulting Physician Gynecology 10/06/21 Maura Wilson MD [address] [place] [address] Consulting Physician Cardiology 06/16/23 documented as of this encounter
--- OUTSIDE RECORDS SUMMARY | 2024-11-12 14:07 | XMS_ITS | Encounter Summary ---
Author Organization [facility] Healthcare Address [address] [place] [address] Care Team Providers Care Crm Dynamics Developer Name Role Phone Trenton Lomeli MD Primary Care Provider [phone] Neelima Velazquez MD Unavailable [phone] Encounter Details Date Type Department Care Team (Latest Contact Info) Description 10/03/2022 1:52 PM DAIRY NUTRITION CONSULTANT - 10/03/2022 11:59 PM DAIRY NUTRITION CONSULTANT Hospital Encounter [facility] [address] [place] [address] Acute non-recurrent pansinusitis Discharge Disposition: [...] on file Legal Sex Female 4:15 AM DAIRY NUTRITION CONSULTANT Gender Identity Not on file Sexual Orientation Not on file 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 ARI CLAY Comment:Testing performed by : [facility], [address] [place] [address] Throat 10/03/2022 1:52 PM DAIRY NUTRITION CONSULTANT 10/04/2022 1:26 AM DAIRY NUTRITION CONSULTANT Narrative ARI CLAY - 10/05/2022 1:28 PM DAIRY NUTRITION CONSULTANT Testing performed by [facility] Microbiology Laboratory ([phone]). us Gayla Sykes NP LAB MICROBIOLOGY - GENERAL ORD ERABLES Final Result ARI CLAY [address] Department [place] [address] documented in this encounter Visit Diagnoses Diagnosis Acute non-recurrent pansinusitis documented in this encounter Care Teams Crm Dynamics Developer Relationship Specialty Start Date End Date Trenton Lomeli MD PCP - General Family Medicine 10/06/21 Neelima Velazquez MD [address] [address] Consulting Physician Gynecology 10/06/21 documented as of this encounter
--- OUTSIDE RECORDS SUMMARY | 2024-11-12 14:07 | XMS_ITS | Encounter Summary ---
Author Organization [facility] Address [address] [address] Care Team Providers Care Shopping Centre Manager Name Role Phone Trenton Lomeli MD Primary Care Provider [phone] Neelima Velazquez MD Unavailable [phone] Maura Wilson MD Unavailable [phone] Reason for Referral * Diagnostic Imaging (Routine) - Closed Specialty Diagnoses / Procedures Referred By Contac t Referred To Contact Diagnoses Class 3 severe obesity due to excess calories without serious comorbidity with body mass index (BMI) of 45.0 to 49.9 in adult (HCC) RUQ discomfort Procedures US RUQ Trenton Lomeli MD [address] [place] [address] Phone: tel: fax: External Order Referral ID Status Reason Start Date Expiration Date Visits Re quested Visits Authorized [id number] Closed 06/16/2023 07/15/2024 1 1 Reason for Visit * Reason Comments Follow-up Pt is here to f/u fr om cardiology on POTS dx and imaging. 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 You may receive a phone call, text, MYCHART message, or e-mail asking about your care today. We would love to hear your feedback on how EXCELLENT your care wastoday! Wishing you better health, always. Dr. Lomeli * Attachments The following attachments cannot be sent through Care Everywhere. * DASH Eating Plan (General Information) (Faroese) documented in this encounter Progress Notes * [...] office note has been partially dictated using Ecovative [employer] software, and as a result portions of the record may have been created with this software. Occasional wrong-word or 'ustur-i-wczd' substitutions may have occurred due to the [...] thickening or pericholecystic fluid. No positive sonographic Dingess sign reported. ?? BILIARY: ?? There is [...] D: ??08/06/2023 9:03 PM T: Report ID: [id number] Reading Location: ??[id number] Procedure Note Rosalva Patino MD - 08/06/2023 [...] wall thickening or pericholecystic fluid. No positivesonographic Dingess sign reported. BILIARY: There is no intrahepatic [...] Rosalva Patino M.D. QX T: Report ID: [id number] Reading Location: [id number] us Trenton Lomeli MD IMG US PROCEDURES [...] documented as of this encounter Care Teams Shopping Centre Manager Relationship Specialty Start Date End Date Trenton Lomeli MD PCP - General Family Medicine 10/06/21 Neelima Velazquez MD [address] [address] Consulting Physician Gynecology 10/06/21 Maura Wilson MD [address] [place] [address] Consulting Physician Cardiology 06/16/23 documented as of this encounter
--- OUTSIDE RECORDS SUMMARY | 2024-11-12 14:07 | XMS_ITS | Encounter Summary ---
Author Organization [facility] Address [address] [address] Care Team Providers Care Hall Monitor Name Role Phone Trenton Lomeli MD Primary Care Provider [phone] Neelima Velazquez MD Unavailable [phone] Reason for Visit * Reason Onset Date Comments Medical Question/Miscellaneous 08/11/2022 Encounter Details Date Type Department Care Team (Late st Contact Info) Description 08/11/2022 Telephone [facility] Primary Care at [address] [address] Trenton Lomeli MD [address] [place] [address] [address] [place] [address] Medical Question/Miscellaneous Social History Tobacco [...] on file Legal Sex Female 4:15 AM JAVA DESIGNER Gender Identity Not on file Sexual Orientation Not on file 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 Low amount of interactions of risks, [...] sore throat congestion Caller???s Call back #: [phone] Does message need to be routed?Yes-Action Needed documented in this encounter Plan of Treatment Not on file documented as of this encounter Visit Diagnoses Diagnosis COVID-19- Primary documented in this encounter Care Teams Hall Monitor Relationship Specialty Start Date End Date Trenton Lomeli MD PCP - General Family Medicine 10/06/21 Neelima Velazquez MD [address] [address] Consulting Physician Gynecology 10/06/21 documented as of this encounter
--- OUTSIDE RECORDS SUMMARY | 2024-11-12 14:07 | XMS_ITS | Encounter Summary ---
Author Organization [facility] Healthcare Address [address] [place] [address] Care Team Providers Care Construction Ironworker Helper Name Role Phone Trenton Lomeli MD Primary Care Provider [phone] Neelima Velazquez MD Unavailable [phone] Maura Wilson MD Unavailable [phone] Reason for Referral * Diagnostic Imaging (Routine) - Closed Specialty Diagnoses / Procedures Referred By Judi mars Referred To Contact Diagnoses Class 3 severe obesity due to excess calories without serious comorbidity with body mass index (BMI) of 45.0 to 49.9 in adult (HCC) RUQ discomfort Procedures Trenton Yepez MD [address] [facility] [address] [place] [address] Phone: tel: fax: External Order Referral ID Status Reason Start Date Expiration Date Visits Re quested Visits Authorized [id number] Closed 06/16/2023 07/15/2024 1 1 Reason for Visit * Diagnostic Imaging (Routine) - Closed Specialty Diagnoses / Procedures Referred By Judi mars Referred To Contact Diagnoses Class 3 severe obesity due to excess calories without serious comorbidity with body mass index (BMI) of 45.0 to 49.9 in adult (HCC) RUQ discomfort Procedures Trenton Yepez MD [address] [facility] [address] [place] [address] Phone: tel: fax: External Order Referral ID Status Reason Start Date Expiration Date Visits Re quested Visits Authorized [id number] Closed 06/16/2023 07/15/2024 1 1 Encounter Details Date Type Department Care Team (Latest Contact Info) Description 08/06/2023 12:40 PM CDT - 08/06/2023 11:59 PM CDT Hospital Encounter [address] [address] Class 3 severe obesity due to excess [...] on file Legal Sex Female 4:15 AM HEAVY TRUCK TECHNICIAN Gender Identity Not on file Sexual Orientation Not on file 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 No positive sonographic Holcomb sign reported. ?? BILIARY: ?? There is [...] D: ??08/06/2023 9:03 PM T: Report ID: [id number] Reading Location: ??[id number] Procedure Note Rosalva Patino MD - 08/06/2023 [...] wall thickening or pericholecystic fluid. No positivesonographic Holcomb sign reported. BILIARY: There is no intrahepatic [...] Rosalva Patino M.D. QX T: Report ID: [id number] Reading Location: [id number] us Trenton Lomeli MD IM US PROCEDURES Final Res ult documented in this encounter Visit Diagnoses Diagnosis Class 3 severe obesity due to excess calories without serious comorbidity with body mass index (BMI) of 45.0 to 49.9 in adult (HCC) RUQ discomfort documented in this encounter Care Teams Construction Ironworker Helper Relationship Specialty Start Date End Date Trenton Lomeli MD PCP - General Family Medicine 10/06/21 Neelima Velazquez MD [address] [place] [address] Consulting Physician Gynecology 10/06/21 Maura Wilson MD [address] [place] [address] Consulting Physician Cardiology 06/16/23 documented as of this encounter
--- OUTSIDE RECORDS SUMMARY | 2024-11-12 14:07 | XMS_ITS | Encounter Summary ---
Author Organization [facility] Healthcare Address [address] [place] [address] Care Team Providers Care Flagman Name Role Phone Trenton Lomeli MD Primary Care Provider [phone] Neelima Velazquez MD Unavailable [phone] Encounter Details Date Type Department Care Team (Latest Contact Info) Description 10/22/2022 2:31 PM ETCH OPERATOR SEMICONDUCTOR WAFERS - 10/22/2022 11:59 PM ETCH OPERATOR SEMICONDUCTOR WAFERS Hospital Encounter [facility] [id number] [place], [place] [id number] Acute recurrent maxillary sinusitis Discharge Disposition: Discharge [...] on file Legal Sex Female 4:15 AM ETCH OPERATOR SEMICONDUCTOR WAFERS Gender Identity Not on file Sexual Orientation [...] Gayla Sykes NP - 10/22/2022 11:59 PM ETCH OPERATOR SEMICONDUCTOR WAFERS Please notify patient of negative COVID-19/RSV/FLU test. Patient should rest, stay hydrated, and take OTC medications as needed. Monitor symptoms and if they worsen follow up with primary care doctoror ER if needed. OPERATOR SEMICONDUCTOR WAFERS documented in this encounter Plan of Treatment Not on file documented as of this encounter Procedures Procedure Name Priority Date/Time Associated Diagnosis Comments INFLUENZA A/B, RSV, AND COVID-19 PCR Routine 10/22/2022 2:31 PM ETCH OPERATOR SEMICONDUCTOR WAFERS Acute recurrent maxillary sinusitis documented in this encounter Results * Influenza A/B, RSV, and COVID-19 PCR Nasopharyngeal (10/22/2022 2:31 PM ETCH OPERATOR SEMICONDUCTOR WAFERS) COVID-19 RNA Negative Negative [facility] Influenza A RNA Negative Negative [facility] Influenza B RNA Negative Negative [facility] RSV RNA Negative Negative [facility] Comment: Interpretive data: This test is performed using the B[employer] Xpert Xpress CoV-2/Flu/RSV plus assay. This is [...] revised 2021. Nasopharyngeal 10/22/2022 2: 31 PM ETCH OPERATOR SEMICONDUCTOR WAFERS 10/22/2022 4:25 PM ETCH OPERATOR SEMICONDUCTOR WAFERS Narrative [facility] - 10/22/2022 5:31 PM ETCH OPERATOR SEMICONDUCTOR WAFERS Is the Patient experiencing symptoms consistent with COVID?->Yes Date of Symptom Onset->10/01/22 Reason for testing?->Symptomatic Known exposure to confirmed or suspected COVID-19 case?->No Is the patient experiencing any symptoms consistent with COVID (eg. Fever, cough, shortness of breath)?->Yes What is the reason for testing?->Symptoms of COVID-19 in low-risk group (Batched) Saman Dinero NP LAB MICROBIOLOGY - [facility] Final Result Performing Organization Address City/State/[facility] Co ar Phone Number [facility] [address] Department [place] [address] documented in this encounter Visit Diagnoses Diagnosis Acute recurrent maxillary sinusitis documented in this encounter Additional Health Concerns Infection Onset Date Last Indicated Resolved Time COVID: Suspected 10/22/2022 10/22/2022 10/22/2022 5:32 PM ETCH OPERATOR SEMICONDUCTOR WAFERS documented as of this encounter Care Teams Flagman Relationship Specialty Start Date End Date Trenton Lomeli MD PCP - General Family Medicine 10/06/21 Neelima Velazquez MD [address] [address] Consulting Physician Gynecology 10/06/21 documented as of this encounter
--- OUTSIDE RECORDS SUMMARY | 2024-11-12 14:07 | XMS_ITS | Encounter Summary ---
Author Organization [facility] Address [address] [address] Care Team Providers Care Pasta Maker Name Role Phone Trenton Lomeil MD Primary Care Provider [phone] Neelima Velazquez MD Unavailable [phone] Reason for Visit * Reason Onset Date Comments Test Results 11/10/2022 Encounter Details Date Type Department Care Team (Late st Contact Info) Description 11/10/2022 Telephone [facility] Primary Care at [address] [address] Trenton Lomeli MD [address] [place] [address] [address] [place] [address] Test Results Social History Tobacco [...] on file Legal Sex Female 4:15 AM LENS GRINDING MACHINE OPERATOR Gender Identity Not on file Sexual Orientation Not on file 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 GRINDING MACHINE OPERATOR * Telephone Encounter - Renee Disla - 11/10/2022 3:13 PM CST Test Result Request Type of test: lab work Date of test: 11/09/22 Where was the test performed at?[facility] Did provider dictate result yet? Yes Where were results relayed from in the chart? Labs Tab Caller's Callback #: [phone] Additional Questions/Comments: Patient states that she had [...] Does message need to be routed?Yes-Action Needed GRINDING MACHINE OPERATOR documented in this encounter Plan of Treatment Not on file documented as of this encounter Visit Diagnoses Not on filedocumented in this encounter Care Teams Pasta Maker Relationship Specialty Start Date End Date Trenton Lomeli MD PCP - General Family Medicine 10/06/21 Neelima Velazquez MD [address] [address] Consulting Physician Gynecology 10/06/21 documented as of this encounter
--- OUTSIDE RECORDS SUMMARY | 2024-11-12 14:07 | XMS_ITS | Encounter Summary ---
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
--- OUTSIDE RECORDS SUMMARY | 2024-11-12 14:07 | XMS_ITS | Encounter Summary ---
Author Organization [facility] Healthcare Address [address] [place] [address] Care Team Providers Care Manager Drive Name Role Phone Trenton Lomeli MD Primary Care Provider [phone] Neelima Velazquez MD Unavailable [phone] Maura Wilson MD Unavailable [phone] Encounter Details Date Type Department Care Team (Late st Contact Info) Description 11/02/2024 3:00 PM FLITCH HANGER Lab [facility] Outpatient Lab at [address] [address] Social History Tobacco Use Types [...] on file Legal Sex Female 4:15 AM FLITCH HANGER Gender Identity Not on file Sexual Orientation Not on file 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
--- OUTSIDE RECORDS SUMMARY | 2024-11-12 14:07 | XMS_ITS | Encounter Summary ---
Author Organization [facility] Address [address] [place] [address] Phone Care Team Providers Care Nipple Threader Name Role Phone Trenton Lomeli MD Primary Care Provider [phone] Neelima Velazquez MD Unavailable [phone] Encounter Details Date Type Department Care Team (Late st Contact Info) Description 12/04/2022 Telephone [facility] Cardiology [address] [facility] 8th [place] [address] [place] [address] Ginna Keith Social History Tobacco [...] on file Legal Sex Female 4:15 AM MINING TECHNICIAN Gender Identity Not on file Sexual Orientation Not on file 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 [] [x]If 'Yes', Schedule first available with Cardio-Oncology Have you ever seen a Diving Instructor in an office setting? [x] [] If [...] ANY cardiac issue? [x] [] Kept overnight [facility] Have you ever had an [...] [x] [] Several 24hr, 2 month long, [facility] Have you ever had a Cardiac [...] where and when was device put in? Plant Electrician? ([employer], [employer], [employer]) Notes: Being referred [...] building entry and while inside the facility. NG TECHNICIAN documented in this encounter Plan of Treatment Not on file documented as of this encounter Visit Diagnoses Not on filedocumented in this encounter Care Teams Nipple Threader Relationship Specialty Start Date End Date Trenton Lomeli MD PCP - General Family Medicine 10/06/21 Neelima Velazquez MD [address] [address] Consulting Physician Gynecology 10/06/21 documented as of this encounter
--- OUTSIDE RECORDS SUMMARY | 2024-11-12 14:07 | XMS_ITS | Encounter Summary ---
Author Organization [facility] Healthcare Address [address] [place] [address] Care Team Providers Care Pitch Worker Name Role Phone Trenton Lomeli MD Primary Care Provider [phone] Neelima Velazquez MD Unavailable [phone] Maura Wilson MD Unavailable [phone] Reason for Visit * Reason Onset Date Comments Syncope 11/03/2024 Encounter Details Date Type Department Care Team (Late st Contact Info) Description 11/03/[address] 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 Pt voiced understanding and will keep Dr Lomeli posted. Pt does not have a way to check blood pressure at home BOARD DESIGNER * Telephone Encounter - Maura Boone MA - 11/03/2024 2:14 PM CST Medical Question/Miscellaneous Caller???s Concern: Patient is calling back due to missing the two calls from Nurse Triage. CS tried calling back line twice with no answer CS will send over as HP. Please advise and thank you so much. Does message need to be routed? Yes-Action Needed BOARD DESIGNER * Telephone Encounter - Angela Kumar RN - 11/03/2024 1:52 PM SNOWBOARD DESIGNER professor of legal studies attempted to reach pt x2 and LVM. RN closing encounter per unit policy and routing FYI toclinical pool per red flag syncope and no contact. Reason for Disposition Second attempt to contact caller AND no contact made. Phone number verified. Protocols used: No Contact or Duplicate Contact [id number] BOARD DESIGNER * Telephone Encounter - Celeste Melchor RN - 11/03/2024 1:42 PM CST Regarding: passed out ----- Message from January sent at 11/03/2024 1:41 PM SNOWBOARD DESIGNER ----- Symptom Based Call Chief Complaint(s): passed out Duration: today What type of symptom(s) is the patient experiencing? Red Flag. Is the patient concerned they are experiencing a medical emergency requiring an ambulance? No Additional Comments: went to ER and left . Blood pressure was 166/102 then 143/82 not sleeping Does message need to be routed? Yes-Action Needed BOARD DESIGNER documented in this encounter Plan of Treatment Not on file documented as of this encounter Visit Diagnoses Not on filedocumented in this encounter Care Teams Pitch Worker Relationship Specialty Start Date End Date Trenton Lomeli MD PCP - General Family Medicine 10/06/21 Neelima Velazquez MD [address] [address] Consulting Physician Gynecology 10/06/21 Maura Wilson MD [address] [place] [address] Consulting Physician Cardiology 06/16/23 documented as of this encounter
--- OUTSIDE RECORDS SUMMARY | 2024-11-12 14:07 | XMS_ITS | Encounter Summary ---
Author Organization [facility] Medical Group Address [address] [address] Care Team Providers Care Maintenance Journeyman Name Role Phone Trenton Lomeli MD Primary Care Provider [phone] Neelima Velazquez MD Unavailable [phone] Reason for Visit * Reason Onset Date Comments Call Back 11/13/2022 Encounter Details Date Type Department Care Team (Late st Contact Info) Description 11/13/2022 Telephone [facility] Primary Care at [address] [address] Trenton Lomeli MD [address] [place] [address] [address] [place] [address] Call Back Social History Tobacco [...] on file Legal Sex Female 4:15 AM SQL SERVER ARCHITECT Gender Identity Not on file Sexual Orientation Not on file 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 Caller???s Call back #: [phone] Does message need to be routed? Yes-Action Needed SERVER ARCHITECT documented in this encounter Plan of Treatment Not on file documented as of this encounter Visit Diagnoses Not on filedocumented in this encounter Care Teams Maintenance Journeyman Relationship Specialty Start Date End Date Trenton Lomeli MD PCP - General Family Medicine 10/06/21 Neelima Velazquez MD [address] [address] Consulting Physician Gynecology 10/06/21 documented as of this encounter
--- OUTSIDE RECORDS SUMMARY | 2024-11-12 14:07 | XMS_ITS | Encounter Summary ---
Author Organization [facility] Address [address] [place] [address] Phone Care Team Providers Care Director Of Sports Medicine Name Role Phone Trenton Lomeli MD Primary Care Provider [phone] Neelima Velazquez MD Unavailable [phone] Encounter Details Date Type Department Care Team (Late st Contact Info) Description 01/29/2023 Telephone [facility] Cardiology [address] [facility] Advanced Medicine 8th [place] [address] [place] [address] Maura Wilson MD [address] [facility] [address] [place], [place] [id number] Social History Tobacco Use Types Packs/Day Years [...] on file Legal Sex Female 4:15 AM COMFORT ADVISOR Gender Identity Not on file Sexual Orientation Not on file 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
--- OUTSIDE RECORDS SUMMARY | 2024-11-12 14:07 | XMS_ITS | Encounter Summary ---
Author Organization [facility] Healthcare Address [address] [place] [address] Care Team Providers Care Banking Teacher Name Role Phone Trenton Lomeli MD Primary Care Provider [phone] Neelima Velazquez MD Unavailable [phone] Maura Wilson MD Unavailable [phone] Reason for Visit * Reason Onset Date Comments Recommendation Request 09/22/2023 Encounter Details Date Type Department Care Team (Late st Contact Info) Description 09/22/[address] 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 Specialty: Endocrinology Why does the patient want to go to this specialist? Prolactin is high, hyperthyroid symptoms Additional Comments/Concerns: none Does message need to be routed? Yes-Action Needed R SUBSTRATE TESTER documented in this encounter Plan of Treatment Not on file documented as of this encounter Visit Diagnoses Diagnosis Hyperthyroidism- Primary Thyrotoxicosis without mention of goiter or other cause, without mention of thyrotoxic crisis or storm Hyperprolactinemia (HCC) Other and unspecified anterior pituitary hyperfunction documented in this encounter Care Teams Banking Teacher Relationship Specialty Start Date End Date Trenton Lomeli MD PCP - General Family Medicine 10/06/21 Neelima Velazquez MD [address] [address] Consulting Physician Gynecology 10/06/21 Maura Wilson MD [address] [place] [address] Consulting Physician Cardiology 06/16/23 documented as of this encounter
--- OUTSIDE RECORDS SUMMARY | 2024-11-12 14:07 | XMS_ITS | Encounter Summary ---
Author Organization [facility] Healthcare Address [address] [place] [address] Care Team Providers Care Patient Information Coordinator Name Role Phone Trenton Lomeli MD Primary Care Provider [phone] Neelima Velazquez MD Unavailable [phone] Maura Wilson MD Unavailable [phone] Reason for Visit * Reason Onset Date Comments Abdominal Pain 10/30/2024 Encounter Details Date Type Department Care Team (Late st Contact Info) Description 10/30/2024 Nurse Triage [facility] Medical [facility] Primary Care at [address] [address] Trenton Lomeli MD [address] [place] [address] [address] [place] [address] Social History Tobacco Use Types [...] on file Legal Sex Female 4:15 AM PERMANENT WAVER Gender Identity Not on file Sexual Orientation Not on file 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 No answer let VM to call back, ANENT WAVER * Telephone Encounter - Itzel Harding RN - 10/30/2024 2:38 PM CST Reason for Disposition Message left on unidentified voice mail. Phone number verified. Protocols used: No Contact or Duplicate Contact [id number] Attempted to reach patient calling with 3 week history of abdominal pain. Message left for patient to call office at earliest convenience. Call with be closed by biztalk architect. FYI- patient calling with abdominal pain for 3 weeks and 10 pound weight loss. Unable to reach. Patient wanting to be seen in the office. ANENT WAVER * Telephone Encounter - Itzel Harding RN - 10/30/2024 2:12 PM CST Regarding: Abdominal Pain, mild ----- Message from Tram Joseph sent at 10/30/2024 10:20 AM PERMANENT WAVER ----- Symptom Based Call Chief Complaint(s): Abdominal [...] pounds past 3 weeks. Patient was seen [facility] emergency room on 10/26/24 and 10/28/24 and [...] message need to be routed? Yes-Action Needed ANENT WAVER documented in this encounter Plan of Treatment Not on file documented as of this encounter Visit Diagnoses Not on filedocumented in this encounter Care Teams Patient Information Coordinator Relationship Specialty Start Date End Date Trenton Lomeli MD PCP - General Family Medicine 10/06/21 Neelima Velazquez MD [address] [facility] [address] [place] [address] Consulting Physician Gynecology 10/06/21 Maura Wilson MD [address] [place] [address] Consulting Physician Cardiology 06/16/23 documented as of this encounter
--- OUTSIDE RECORDS SUMMARY | 2024-11-12 14:07 | XMS_ITS | Encounter Summary ---
Author Organization [facility] Address [address] [address] Care Team Providers Care Debridging Machine Operator Name Role Phone Trenton Lomeli MD Primary Care Provider [phone] Neelima Velazquez MD Unavailable [phone] Reason for Visit * Reason Comments Annual Exam physical Encounter Details Date Type Department Care Team (Late st Contact Info) Description 11/09/2022 3:45 PM TRAUMA MANAGER Office Visit [facility] Primary Care at [address] [address] Trenton Lomeli MD [address] [place] [address] [address] [place] [address] Well adult exam (Primary Dx); [...] on file Legal Sex Female 4:15 AM TRAUMA MANAGER Gender Identity Not on file Sexual Orientation Not on file 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 file Not on file Not on file documented as of this encounter Last Filed Vital Signs Vital Sign Reading Time Taken Comments Blood Pressure 136/84 11/09/2022 3:44 PM TRAUMA MANAGER Pulse 111 11/09/2022 3:44 PM TRAUMA MANAGER Temperature 36.6 ??C (97.8 ??F) 11/09/2022 3:44 PM CS T Respiratory Rate 16 11/09/2022 3:44 PM TRAUMA MANAGER Oxygen Saturation 98% 11/09/2022 3:44 PM TRAUMA MANAGER Inhaled Oxygen Concentration - - Weight 133.4 kg (294 lb) 11/09/2022 3:44 PM TRAUMA MANAGER Height 171.5 cm (5' 7.5 ) 11/09/2022 3:44 PM TRAUMA MANAGER Body Mass Index 45.37 11/09/2022 3:44 PM TRAUMA MANAGER documented in this encounter Patient Instructions * Patient Instructions* Trenton Lomeli MD - 11/09/2022 3:45 PM TRAUMA MANAGER Thanks for coming in today! My medical assistants and I are thankful you have trusted us with your care, and hope that you received EXCELLENT care today! Please do not hesitate to call if you have any questions or concerns at [phone]. You may receive a phone call, text, MYCHART message, or e-mail asking about your care today. We would love to hear your feedback on how EXCELLENT your care wastoday! Wishing you better health, always. Dr. Lomeli MA MANAGER * Attachments The following attachments cannot be sent through Care Everywhere. * DASH Eating Plan (General Information) (Swiss) documented in this encounter Progress Notes * [...] or bloody stools. No urinary tract symptoms. ATHLETIC TEAM PHYSICIAN ROS: normal menses, no abnormal bleeding, pelvic [...] WISDOM TOOTH EXTRACTION Oral Surgery Tooth Extraction [place] Tooth - (Added by TW Conv) Family [...] Cardiology; Future Need for vaccination Comments: deferred MA MANAGER documented in this encounter Miscellaneous Notes * Assessment & Plan Note - Trenton Lomeli MD - 11/09/2022 4:02 PM TRAUMA MANAGER Associated Problem(s): Morbid (severe) obesity due to excess calories (HCC) BMI Follow-up includes: nutrition counseling, exercise counseling and education provided. MA MANAGER * Assessment & Plan Note - Trenton Lomeli MD - 11/09/2022 4:01 PM TRAUMA MANAGER Associated Problem(s): Well adult exam A(n) yearly [...] tests per orders return annually or prn MA MANAGER MA MANAGER documented in this encounter Plan of Treatment Not on file documented as of this encounter Results * (ABNORMAL) Lipid panel (11/09/2022 4:21 PM TRAUMA MANAGER) Cholesterol 235(H) 30 - 199 mg/dL ARI [...] 6 ARI CLAY Blood 11/09/2022 4:21 PM TRAUMA MANAGER 11/09/2022 7:19 PM TRAUMA MANAGER us Trenton Lomeli MD LAB BLOOD ORDERABLES Final Result [facility] [address] [facility] Department [place] [address] documented in this encounter Visit Diagnoses Diagnosis [...] disease documented in this encounter Care Teams Debridging Machine Operator Relationship Specialty Start Date End Date Trenton Lomeli MD PCP - General Family Medicine 10/06/21 Neelima Velazquez MD [address] [address] Consulting Physician Gynecology 10/06/21 documented as of this encounter
--- OUTSIDE RECORDS SUMMARY | 2024-11-12 14:07 | XMS_ITS | Encounter Summary ---
Author Organization [facility] Medical [facility] Address [address] [address] Care Team Providers Care Cuff Setter Name Role Phone Trenton Lomeli MD Primary Care Provider [phone] Neelima Velazquez MD Unavailable [phone] Encounter Details Date Type Department Care Team (Late st Contact Info) Description 11/09/2022 5:45 PM DIRECTOR OF BUSINESS OPERATIONS Lab [facility] Outpatient Lab at [address] [address] Essential hypertension Social History Tobacco [...] Legal Sex Female 4:15 AM DIRECTOR OF BUSINESS OPERATIONS Gender Identity Not on file Sexual Orientation Not on file 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
--- OUTSIDE RECORDS SUMMARY | 2024-11-12 14:07 | XMS_ITS | Encounter Summary ---
Author Organization [facility] Medical Group Address [address] [address] Care Team Providers Care Business Management Specialist Name Role Phone Trenton Lomeli MD Primary Care Provider [phone] Neelima Velazquez MD Unavailable [phone] Reason for Visit * Reason Comments URI Seen on 10/03/22 give n amox, symptoms no better- Yellow snot, congestion, fever (99-100). 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 Not on file Not on file documented as of this encounter Last Filed Vital Signs Vital Sign Reading Time Taken Comments Blood Pressure 142/85 10/22/2022 2:23 PM ASIC DESIGN ENGINEER Pulse 90 10/22/2022 2:53 PM ASIC DESIGN ENGINEER Temperature 37.1 ??C (98.8 ??F) 10/22/2022 2:23 PM CS T Respiratory Rate 18 10/22/2022 2:23 PM ASIC DESIGN ENGINEER Oxygen Saturation 100% 10/22/2022 2:23 PM ASIC DESIGN ENGINEER Inhaled Oxygen Concentration - - Weight 133.4 kg (294 lb) 10/22/2022 2:23 PM ASIC DESIGN ENGINEER Height 171.5 cm (5' 7.5 ) 10/22/2022 2:23 PM ASIC DESIGN ENGINEER Body Mass Index 45.37 10/22/2022 2:23 PM ASIC DESIGN ENGINEER documented in this encounter Ordered Prescriptions Prescription [...] and frontal sinus tenderness present. Mouth/Throat: Lips: [place]. Mouth: Mucous membranes are moist. Tongue: Tongue [...] WISDOM TOOTH EXTRACTION Oral Surgery Tooth Extraction [place] Tooth - (Added by TW Conv) Assessment/Plan [...] ask questions, questions answered. Saman Dinero NP DESIGN ENGINEER documented in this encounter Plan of Treatment Not on file documented as of this encounter Results * Influenza A/B, RSV, and COVID-19 PCR Nasopharyngeal (10/22/2022 2:31 PM ASIC DESIGN ENGINEER) Pathologist [facility] COVID-19 RNA Negative Negative [facility] Influenza A RNA Negative Negative [facility] Influenza B RNA Negative Negative [facility] RSV RNA Negative Negative [facility] Comment: Interpretive data: This test is performed using the [employer] Xpert Xpress CoV-2/Flu/RSV plus assay. This is [...] revised 2021. Nasopharyngeal 10/22/2022 2: 31 PM ASIC DESIGN ENGINEER 10/22/2022 4:25 PM ASIC DESIGN ENGINEER [facility]arrative [facility] - 10/22/2022 5:31 PM ASIC DESIGN ENGINEER Is the Patient experiencing symptoms consistent with COVID?->Yes Date of Symptom Onset->10/01/22 Reason for testing?->Symptomatic Known exposure to confirmed or suspected COVID-19 case?->No Is the patient experiencing any symptoms consistent with COVID (eg. Fever, cough, shortness of breath)?->Yes What is the reason for testing?->Symptoms of COVID-19 in low-risk group (Batched) Saman Dinero NP LAB MICROBIOLOGY - GENERAL GREGORIO IBARRA Final Result [facility] [address] [place] [address] documented in this encounter Visit Diagnoses Diagnosis Acute recurrent maxillary sinusitis- Primary Acute recurrent maxillary sinusitis documented in this encounter Additional Health Concerns Infection Onset Date Last Indicated Resolved Time COVID: Suspected 10/22/2022 10/22/2022 10/22/2022 5:32 PM ASIC DESIGN ENGINEER documented as of this encounter Care Teams Business Management Specialist Relationship Specialty Start Date End Date Trenton Lomeli MD PCP - General Family Medicine 10/06/21 Neelima Velazquez MD [address] [address] Consulting Physician Gynecology 10/06/21 documented as of this encounter
--- OUTSIDE RECORDS SUMMARY | 2024-11-12 14:07 | XMS_ITS | Encounter Summary ---
Author Organization [facility] Healthcare Address [address] [place] [address] Care Team Providers Care Utility Tender Carding Name Role Phone Trenton Lomeli MD Primary Care Provider [phone] Neelima Velazquez MD Unavailable [phone] Reason for Referral * Cardiology (Routine) - Closed Specialty Diagnoses / Procedures Referred By Contac t Referred To Contact Diagnoses POTS (postural orthostatic tachycardia syndrome) Procedures Transthoracic Echo (TTE) Complete W Doppler/CF Maura Wilson MD Phone: tel: fax: [facility] (All Locations) Referral ID Status Reason Start Date Expiration Date Visits Re quested Visits Authorized [id number] Closed 02/19/2023 03/20/2024 1 1 Reason for Visit * Cardiology (Routine) - Closed Specialty Diagnoses / Procedures Referred By Contac t Referred To Contact Diagnoses POTS (postural orthostatic tachycardia syndrome) Procedures Transthoracic Echo (TTE) Complete W Doppler/CF Maura Wilson MD Phone: tel: fax: [facility] (All Locations) Referral ID Status Reason Start Date Expiration Date Visits Re quested Visits Authorized [id number] Closed 02/19/2023 03/20/2024 1 1 Encounter Details Date Type Department Care Team (Latest Contact Info) Description 05/12/2023 3:20 PM CDT - 05/12/2023 11:59 PM CDT Hospital Encounter [facility] Cardiac Diagnostic Lab [address] [facility] 8th [place] [address] Maura Wilson MD [address] [facility] [address] [place] [address] POTS (postural orthostatic tachycardia syndrome) Discharge Disposition: [...] on file Legal Sex Female 4:15 AM TAX SPECIALIST Gender Identity Not on file Sexual Orientation Not on file 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 Not on file Not [...] test: 05/12/2023 Type of test: TTE w/Doppler [facility] #: 0 Date of : 1990 (F) Advertising Statistical Clerk: Pia Masters RDCS Referring Physician: MAURA WILSON MD Contrast Agent: Patient Refused Contrast Contrast Administered by: Supervised/Interpreted by: Celeste Meade MD Diagnosis: Location: [facility] Reason for test: POTS MV Structure: Normal, [...] 2=Hypo 3=Akinetic 4=Dyskin./Aneurysm 0=Not visualized) Parasternal [place]:MAS=1 BAS=1 MIL=1 ANAI=1 Parasternal [place]:MAS=1 MIS=1 AR=1 MIL=1 MAL=1 MA=1 Apical 4 Chambers:=1 MIS=1 BIS=1 BAL=1 MAL=1 AL=1 AC=1 Apical 2 Chambers:AI=1 AR=1 BI=1 BA=1 MA=1 AA=1 AC=1 LV Global [...] MD By signing this report, the attending irrigation flume layer certifies that he or she has personally supervised and interpreted the echocardiogram and has reviewed and or edited and agrees with the written comments contained within the report. Procedure Note De Celeste Jarquin MD - 05/13/2023 Patient name: Alia Fabian Date of test: 05/12/2023 Type of test: TTE w/Doppler [facility] #: 0 Date of : 1990 (F) Advertising Statistical Clerk: Pia Masters RDCS Referring Physician: MAURA WILSON MD Contrast Agent: Patient Refused Contrast Contrast Administered by: Supervised/Interpreted by: Celeste Meade MD Diagnosis: Location: [facility] Reason for test: POTS MV Structure: Normal, [...] 2=Hypo 3=Akinetic 4=Dyskin./Aneurysm 0=Not visualized) Parasternal [place]:MAS=1 BAS=1 MIL=1 ANAI=1 Parasternal [place]:MAS=1 MIS=1 AR=1 MIL=1 MAL=1 MA=1 Apical 4 Chambers:=1 MIS=1 BIS=1 BAL=1 MAL=1 AL=1 AC=1 Apical 2 Chambers:AI=1 AR=1 BI=1 BA=1 MA=1 AA=1 AC=1 LV Global [...] MD By signing this report, the attending irrigation flume layer certifies that he or she has personally supervised and interpreted the echocardiogram and has reviewed and or edited and agrees with the written comments contained within the report. us Maura Wilson MD CV ECHO PROCEDURES Final Resul t documented in this encounter Visit Diagnoses Diagnosis POTS (postural orthostatic tachycardia syndrome) Unspecified tachycardia documented in this encounter Care Teams Utility Tender Carding Relationship Specialty Start Date End Date Trenton Lomeli MD PCP - General Family Medicine 10/06/21 Neelima Velazquez MD [address] [address] Consulting Physician Gynecology 10/06/21 documented as of this encounter
--- OUTSIDE RECORDS SUMMARY | 2024-11-12 14:07 | XMS_ITS | Encounter Summary ---
Author Organization [facility] Healthcare Address [address] [place] [address] Care Team Providers Care Forest Resources Professor Name Role Phone Trenton Lomeli MD Primary Care Provider [phone] Neelima Velazquez MD Unavailable [phone] Encounter Details Date Type Department Care Team (Latest Contact Info) Description 11/09/2022 4:21 PM LANGUAGE AND LITERATURE DIVISION CHAIR - 11/09/2022 11:59 PM LANGUAGE AND LITERATURE DIVISION CHAIR Hospital Encounter [facility] [address] [id number] Screening, lipid Discharge Disposition: Discharge to home [...] on file Legal Sex Female 4:15 AM LANGUAGE AND LITERATURE DIVISION CHAIR Gender Identity Not on file Sexual Orientation Not on file 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 Not on file Not [...] Comments LIPID PANEL Routine 11/09/2022 4:21 PM LANGUAGE AND LITERATURE DIVISION CHAIR Screening, lipid documented in this encounter Results * (ABNORMAL) Lipid panel (11/09/2022 4:21 PM LANGUAGE AND LITERATURE DIVISION CHAIR) Cholesterol 235(H) 30 - 199 mg/dL ARI [...] ratio 6 ARI Blood 11/09/2022 4:21 PM LANGUAGE AND LITERATURE DIVISION CHAIR 11/09/2022 7:19 PM LANGUAGE AND LITERATURE DIVISION CHAIR Trenton Lomeli MD LAB BLOOD ORDERABLES Final Result Performing Organization Address City/State/[facility] [place] Phone Number [place] [address] [address] Department [place] [address] documented in this encounter Visit Diagnoses Diagnosis Screening, lipid documented in this encounter Care Teams Forest Resources Professor Relationship Specialty Start Date End Date Trenton Lomeli MD PCP - General Family Medicine 10/06/21 Neelima Velazquez MD [address] [address] Consulting Physician Gynecology 10/06/21 documented as of this encounter
--- OUTSIDE RECORDS SUMMARY | 2024-11-12 14:07 | XMS_ITS | Encounter Summary ---
Author Organization [facility] Address [address] [facility] [address] [place] [address] Care Team Providers Care Inventory Administrator Name Role Phone Trenton Lomeli MD Primary Care Provider [phone] Neelima Velazquez MD Unavailable [phone] Encounter Details Date Type Department Care Team (Late st Contact Info) Description 11/10/2022 Orders Only [facility] Primary Care at [address] [address] Trenton Lomeli MD [address] [place] [address] [address] [place] [address] Mixed hyperlipidemia (Primary Dx) Social [...] on file Legal Sex Female 4:15 AM SCREEN MACHINE OPERATOR Gender Identity Not on file Sexual Orientation Not on file 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
--- OUTSIDE RECORDS SUMMARY | 2024-11-12 14:08 | XMS_ITS | Encounter Summary ---
Author Organization [facility] Address [address] [place] [address] Phone Care Team Providers Care Gun Stock Maker Name Role Phone Sergo Mackey MD Primary Care Provider [phone] Trenton Lomeli MD Primary Care Provider [phone] Neelima Velazquez MD Unavailable [phone] Maura Wilson MD Unavailable [phone] Encounter Details Date Type Department Care [...] on file Legal Sex Female 4:15 AM FILL TECHNICIAN Gender Identity Not on file Sexual [...] COVID: Suspected 10/03/2022 10/03/2022 10/03/2022 1:05 PM FILL TECHNICIAN COVID: Suspected 10/22/2022 10/22/2022 10/22/2022 5:32 PM FILL TECHNICIAN documented as of this encounter Care Teams Gun Stock Maker Relationship Specialty Start Date End Date Sergo Mackey MD [address] [place] [address] PCP - General 08/05/17 10/05/21 Trenton Lomeli MD [address] [place] [address] PCP - General Family Medicine 10/06/21 Neelima Velazquez MD [address] [address] Consulting Physician Gynecology 10/06/21 Maura Wilson MD [address] [place] [address] Consulting Physician Cardiology 06/16/23 documented as of this encounter
--- OUTSIDE RECORDS SUMMARY | 2024-11-12 14:08 | XMS_ITS | Encounter Summary ---
Author Organization [facility] Healthcare Address [address] [place] [address] Care Team Providers Care Assembler Wet Wash Name Role Phone Trenton Lomeli MD Primary Care Provider [phone] Neelima Velazqeuz MD Unavailable [phone] Encounter Details Date Type Department Care Team (Late st Contact Info) Description 10/06/2021 7:35 PM SENIOR INFRASTRUCTURE ENGINEER Lab [address] [address] Essential hypertension; Nonalcoholic steatohepatitis (ACE) Social History [...] on file Legal Sex Female 4:15 AM SENIOR INFRASTRUCTURE ENGINEER Gender Identity Not on file Sexual Orientation Not on file 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 Not on file Not on file documented as of this encounter Plan of Treatment Not on file documented as of this encounter Procedures Procedure Name Priority Date/Time Associated Diagnosis Comments EGFR Routine 10/06/2021 2:39 PM SENIOR INFRASTRUCTURE ENGINEER Nonalcoholic steatohepatitis (ACE) DIFFERENTIAL AUTO Routine 10/06/2021 2:3 9 PM SENIOR INFRASTRUCTURE ENGINEER Nonalcoholic steatohepatitis (ACE) THYROID FUNCTION CASCADE Routine 10/06/2021 2:39 PM SENIOR INFRASTRUCTURE ENGINEER Essential hypertension CBC WITH AUTO DIFFERENTIAL Routine 10/06/2021 2:39 PM SENIOR INFRASTRUCTURE ENGINEER Nonalcoholic steatohepatitis (ACE) LIPID PANEL Routine 10/06/2021 2:39 PM SENIOR INFRASTRUCTURE ENGINEER Nonalcoholic steatohepatitis (ACE) COMPREHENSIVE METABOLIC PANEL Routine 10/06/2021 2:39 PM SENIOR INFRASTRUCTURE ENGINEER Nonalcoholic steatohepatitis (ACE) documented in this encounter Results * eGFR (10/06/2021 2:39 PM SENIOR INFRASTRUCTURE ENGINEER) eGFR 123 mL/min/1.7 3 m2 [facility] [...] last reviewed 2020 Blood 10/06/2021 2:39 PM SENIOR INFRASTRUCTURE ENGINEER 10/06/2021 8:03 PM SENIOR INFRASTRUCTURE ENGINEER us Trenton Lomeli MD LAB BLOOD ORDERABLES Final Result [facility] [address] [address] Department [place] [address] * Differential, auto (10/06/2021 2:39 PM SENIOR INFRASTRUCTURE ENGINEER) Neutrophil abs 3.3 1.7 - 6.5 K/cumm [facility] Imm gran abs 0.0 0.0 - 0.1 K/cumm [facility] Lymphocyte abs 1.8 0.8 - 3.3 K/cumm [facility] Monocyte abs 0.4 0.2 - 0.8 K/cumm [facility] Eosinophil abs 0.1 0.0 - 0.5 K/cumm [facility] Basophil abs 0.0 0.0 - 0.1 K/cumm [facility] Neutrophil pct 57.7 % [facility] Comment: Interpretive Data Percent cell count reference ranges are not reported, since discordance with absolute values may lead to misinterpretation of CBC data. Current Interpretive Data was last revised on 2018. Imm gran pct 0.2 % [facility] Comment: Interpretive Data Percent cell count reference ranges are not reported, since discordance with absolute values may lead to misinterpretation of CBC data. Current Interpretive Data was last revised on 2018. Lymphocyte pct 32.1 % [facility] Comment: Interpretive Data Percent cell count reference ranges are not reported, since discordance with absolute values may lead to misinterpretation of CBC data. Current Interpretive Data was last revised on 2018. Monocyte pct 7.3 % [facility] Comment: Interpretive Data Percent cell count [...] revised on 2018. Blood 10/06/2021 2:39 PM SENIOR INFRASTRUCTURE ENGINEER 10/06/2021 7:52 PM SENIOR INFRASTRUCTURE ENGINEER Trenton Lomeli MD LAB BLOOD ORDERABLES Final Result [facility] [address] [address] Department [place] [address] * (ABNORMAL) CBC with auto differential (10/06/2021 2:39 PM SENIOR INFRASTRUCTURE ENGINEER) WBC 5.6 3.8 - 9.9 K/cumm [facility] Hgb 13.6 11.9 - 15.5 g/dL [facility] Hct 42.7 35.6 - 45.5 % [facility] Plt 338 150 - 400 K/cumm [facility] MPV 9.5 9.1 - 12.3 fL [facility] RBC 4.83 3.90 - 5.20 M/cumm [facility] MCV 88.4 81.3 - 96.4 fL [facility] MCH 28.2 27.1 - 33.3 pg [facility] MCHC 31.9(L) 32.3 - 35.7 g/dL [facility] RDW CV 12.9 11.1 - 14.9 % [facility] RDW SD 41.9 35.7 - 48.1 fL [facility] NRBC abs 0.00 0.00 - 0.01 K/cumm [facility] Blood 10/06/2021 2:39 PM SENIOR INFRASTRUCTURE ENGINEER 10/06/2021 7:52 PM SENIOR INFRASTRUCTURE ENGINEER Trenton Lomeli MD LAB BLOOD ORDERABLES Final Result [facility] [address] [address] Department [place] [address] * (ABNORMAL) Comprehensive metabolic panel (10/06/2021 2:39 PM SENIOR INFRASTRUCTURE ENGINEER) Sodium 141 135 - 145 mmol/L [facility]ER [...] Units/L [facility] Blood 10/06/2021 2:39 PM SENIOR INFRASTRUCTURE ENGINEER 10/06/2021 7:52 PM SENIOR INFRASTRUCTURE ENGINEER Trenton Lomeli MD LAB BLOOD ORDERABLES Final Result [facility] [address] [address] Department [place] [address] * (ABNORMAL) Lipid panel (10/06/2021 2:39 PM SENIOR INFRASTRUCTURE ENGINEER) [facility] Cholesterol 147 30 - 199 mg/dL [...] 6 [facility] Blood 10/06/2021 2:39 PM SENIOR INFRASTRUCTURE ENGINEER 10/06/2021 7:52 PM SENIOR INFRASTRUCTURE ENGINEER us Trenton Lomeli MD LAB BLOOD ORDERABLES Final Result Performing Organization Address City/[facility] Co de Phone Number [facility] [address] [address] [place] [address] * TSH reflex to free T4 (10/06/2021 2:39 PM SENIOR INFRASTRUCTURE ENGINEER) TSH 0.84 0.30 - 4.20 mcIUnit/mL [facility] Blood 10/06/2021 2:39 PM SENIOR INFRASTRUCTURE ENGINEER 10/06/2021 7:52 PM SENIOR INFRASTRUCTURE ENGINEER us Trenton Lomeli MD LAB BLOOD ORDERABLES Final Result Performing Organization Address [facility] de Phone Number [facility] [address] [address] [place] [address] documented in this encounter Visit Diagnoses Diagnosis Essential hypertension Unspecified essential hypertension Nonalcoholic steatohepatitis (ACE) documented in this encounter Care Teams Assembler Wet Wash Relationship Specialty Start Date End Date Trenton Lomeli MD PCP - General Family Medicine 10/06/21 Neelima Velazquez MD [address] [address] Consulting Physician Gynecology 10/06/21 documented as of this encounter
--- OUTSIDE RECORDS SUMMARY | 2024-11-12 14:08 | XMS_ITS | Encounter Summary ---
Author Organization [facility] Address [address] [address] Care Team Providers Care Slackline Operator Name Role Phone Trenton Lomeli MD Primary Care Provider [phone] Neelima Velazquez MD Unavailable [phone] Reason for Visit * Reason Comments New Patient new patient Encounter Details Date Type Department Care Team (Late st Contact Info) Description 10/06/2021 2:15 PM SET PAINTER Office Visit 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 Not on file Not on file Not on file documented as of this encounter Last Filed Vital Signs Vital Sign Reading Time Taken Comments Blood Pressure 120/80 10/06/2021 1:55 PM SET PAINTER Pulse 110 10/06/2021 1:55 PM SET PAINTER Temperature 36.6 ??C (97.8 ??F) 10/06/2021 1:55 PM CS T Respiratory Rate 16 10/06/2021 1:55 PM SET PAINTER Oxygen Saturation 98% 10/06/2021 1:55 PM SET PAINTER Inhaled Oxygen Concentration - - Weight 120.7 kg (266 lb) 10/06/2021 1:55 PM SET PAINTER Height 170.2 cm (5' 7 ) 10/06/2021 1:55 PM SET PAINTER Body Mass Index 41.66 10/06/2021 1:55 PM SET PAINTER documented in this encounter Patient Instructions * Patient Instructions* Trenton Lomeli MD - 10/06/2021 2:15 PM SET PAINTER Images from the original note were not [...] viruses cause the flu. The viruses change control manager time, so new vaccines are made each [...] could distract you and cause an accident. cover cutter if you need to make a call [...] refuse treatment. The above information is an educational technician only. It is not intended as medical advice for individual conditions or treatments. Talk to your doctor, nurse or pharmacist before following any medical regimen to see if it is safe and effective for you. ?? 2017 [employer] Information is for End User's use only and may not be sold, redistributed or otherwise used for commercial purposes. All illustrations and images included in CareNotes?? are the copyrighted property of [employer]. or [employer]. Thanks for coming in today! My medical assistants and I are thankful you have trusted us with your care, and hope that you received EXCELLENT care today! Please do not hesitate to call if you have any questions or concerns at [phone]. You may receive a phone call, text, MYCHART message, or e-mail asking about your care today. We would love to hear your feedback on how EXCELLENT your care wastoday! Wishing you better health, always. Dr. Lomeli PAINTER documented in this encounter Progress Notes * [...] WISDOM TOOTH EXTRACTION Oral Surgery Tooth Extraction [place] Tooth - (Added by TW Conv) Family [...] - TSH reflex to free T4; Future PAINTER documented in this encounter Miscellaneous Notes * Assessment & Plan Note - Trenton Lomeli MD - 10/08/2021 2:56 PM SET PAINTER Associated Problem(s): Well adult exam A initial [...] These have been ordered/arranged unless otherwise indicated. PAINTER PAINTER documented in this encounter Plan of Treatment Not on file documented as of this encounter Results * TSH reflex to free T4 (10/06/2021 2:39 PM SET PAINTER) TSH 0.84 0.30 - 4.20 mcIUnit/mL [facility] Blood 10/06/2021 2:39 PM SET PAINTER 10/06/2021 7:52 PM SET PAINTER Trenton Lomeli MD LAB BLOOD ORDERABLES Final Result Performing Organization Address City/State/ZIP Co la Phone Number [facility] [address] [address] Department [place] [address] * (ABNORMAL) Lipid panel (10/06/2021 2:39 PM SET PAINTER) Cholesterol 147 30 - 199 mg/dL [facility] [...] 6 [facility] CH Blood 10/06/2021 2:39 PM SET PAINTER 10/06/2021 7:52 PM SET PAINTER us Trenton Lomeli MD LAB BLOOD ORDERABLES Final Result [facility] [address] [address] Department [place] [address] * (ABNORMAL) Comprehensive metabolic panel (10/06/2021 2:39 PM SET PAINTER) Sodium 141 135 - 145 mmol/L CERNER [...] Units/L [facility] Blood 10/06/2021 2:39 PM SET PAINTER 10/06/2021 7:52 PM SET PAINTER us Trenton Lomeli MD LAB BLOOD ORDERABLES Final Result Performing Organization Address City/State/[facility] Co la Phone Number [facility] [address] [address] Department [place] [address] * (ABNORMAL) CBC with auto differential (10/06/2021 2:39 PM SET PAINTER) WBC 5.6 3.8 - 9.9 K/cumm [facility] Hgb 13.6 11.9 - 15.5 g/dL [facility] Hct 42.7 35.6 - 45.5 % [facility] Plt 338 150 - 400 K/cumm [facility] MPV 9.5 9.1 - 12.3 fL [facility] RBC 4.83 3.90 - 5.20 M/cumm [facility] MCV 88.4 81.3 - 96.4 fL [facility] MCH 28.2 27.1 - 33.3 pg [facility] MCHC 31.9(L) 32.3 - 35.7 g/dL [facility] RDW CV 12.9 11.1 - 14.9 % [facility] RDW SD 41.9 35.7 - 48.1 fL [facility] NRBC abs 0.00 0.00 - 0.01 K/cumm [facility] Blood 10/06/2021 2:39 PM SET PAINTER 10/06/2021 7:52 PM SET PAINTER us Trenton Lomeli MD LAB BLOOD ORDERABLES Final Result [facility] [address] [address] Department [place] [address] documented in this encounter Visit Diagnoses Diagnosis [...] 08/10/2022 added in this encounter Care Teams Slackline Operator Relationship Specialty Start Date End Date Trenton Lomeli MD PCP - General Family Medicine 10/06/21 Neelima Velazquez MD [address] [address] Consulting Physician Gynecology 10/06/21 documented as of this encounter
--- OUTSIDE RECORDS SUMMARY | 2024-11-12 14:08 | XMS_ITS | Encounter Summary ---
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 * Telephone Encounter - Carmen oNrris - 08/11/2022 11:04 AM CDT Medication Question/Clarification Medication Name(s): amoxacillin What is the question or clarification needed? Pt called to check status of prescription she stated the pharmacy never received If needed, Pharmacy(s) medication(s) should be sent to: [facility] [address] [place] [address] Caller???s Callback #: [phone] Additional Comments: Pt stated that @ her [...] on filedocumented in this encounter Care Teams Income Tax Administrator Relationship Specialty Start Date End Date Trenton Lomeli MD PCP - General Family Medicine 10/06/21 Neelima Velazquez MD [address] [address] Consulting Physician Gynecology 10/06/21 documented as of this encounter
--- OUTSIDE RECORDS SUMMARY | 2024-11-12 14:08 | XMS_ITS | Encounter Summary ---
Author Organization [facility] Healthcare Address [address] [place] [address] Care Team Providers Care Deck Lid Fitter Name Role Phone Sergo Mackey MD Primary Care Provider [phone] Encounter Details Date Type Department Care Team (Late st Contact Info) Description 08/05/2017 8:19 PM CDT - 08/06/2017 11:31 AM CDT Emergency [facility] Emergency Department [address] [place] [address] Unknown, Notinfile Discharge Disposition: Discharge to home or self care Social History Tobacco Use Types Packs/Day Years Used Date Smoking Tobacco: Never Alcohol Use Standard Drinks/Week Comments No 0 (1 standard drink = 0.6 oz pur e alcohol) Comments Unknown Sex and Gender Information Value Date Recorded Sex Assigned at Not on file Legal 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 ??J Am Sully Cardiol 2012;60:1581-98). Current interpretive data was last revised on 13. Blood specimen (specimen) 08/06/2017 6:00 AM CDT 08/06/2017 6:18 AM CDT Love Ramirez PIPE BENDER LAB BLOOD ORDERABLES Final Result [facility] Department [place] [address] * XR Chest Pa Lateral 2 Views (08/06/2017 5:53 AM CDT) Anatomical Region Laterality Modality Body, Chest N/A Radiographic Fiona ging 08/06/2017 5:53 AM CDT Narrative 08/06/2017 5:53 AM CDT Tory GANNON M.D. FINAL REPORT The radiology attending physician has personally reviewed this study, and has reviewed and/or edited this written report and agrees with it. ACC# ??Date Time ??Exam [id number] Aug 06, 2017 00:53:00 [id number] Chest 2 views Frontl ??and ??Lat EXAMINATION: [...] ELOISA LOPEZ M.D. on Aug ??2016 ??8:15A [id number] GANNON M.D. FINAL REPORT The radiology attending physician has personally reviewed this study, and has reviewed and/or edited this written report and agrees with it. Attending: ??UNKNOWN, ??NOTINFILE Requesting: ??JAMES, ??LOVE Requesting Fax: ?? Attending Fax: ?? Attending ID: ??[id number] Requesting ID: ??[id number] Report To 1 ID: ??[id number] ? Report To 1 Name: ??, ?? Report To 1 FAX: ?? NextGen Order #: ?? Procedure Note Miscellaneous, Not In File / Provider, MD Misael - 08/06/2017 ELOISA LOPEZ M.D. CARMELITA SHEPARD M.D. FINAL REPORT The radiology attending physician has personally reviewed this study, and has reviewed and/or edited this written report and agrees with it. ACC# Date Time Exam [id number] Aug 06, 2017 00:53:00 [id number] Chest 2 views Frontl and Lat EXAMINATION: [...] LOPEZ M.D. on Aug 06 2017 8:15A [id number] GANNON M.D. FINAL REPORT The radiology attending physician has personally reviewed this study, and has reviewed and/or edited this written report and agrees with it. Attending: UNKNOWN, NOTINFILE Requesting: LOVE RAMIREZ Requesting Fax: Attending Fax: Attending ID: [id number] Requesting ID: [id number] Report To 1 ID: [id number] Report To 1 Name: , Report To 1 FAX: NextGen Order #: us Love Ramirez PIPE BENDER IMG XR PROCEDURES Final Res ult * Stool culture (08/06/2017 12:44 AM CDT) Direct Specimen Exam Shiga Toxin Testing: Antigen detection assay for Shiga-toxin NEGATIVE for Shiga Toxin 1 and Shiga Toxin 2. [facility] Report Final Report: No growth of enteric bacterial pathogens [facility] Stool (Rectum) 08/06/2017 12 :44 AM CDT 08/06/2017 1:50 AM CDT Narrative [facility] - 08/07/2017 9:47 AM CDT Routine stool cultures include procedures to detect Salmonella, Shigella, Edwardsiella, Aeromonas, Pleisiomonas, Campylobacter, Yersinia, E. coli O157, and Shiga-like toxins. ?? Vibrio is cultured only upon special request. ??If Vibrio is suspected, please call the laboratory at [phone]. Interpretive data was last updated March 08, 2017. Love Ramirez NP LAB MICROBIOLOGY - GENERAL ORDERABLES Final Result Performing Organization Address City/[facility] Co de Phone Number [facility] [place] [address] * Ova and parasite screen (08/06/2017 12:44 AM CDT) Report Final Report: Negative [facility] Stool (Rectum) 08/06/2017 12 :44 AM CDT 08/06/2017 1:50 AM CDT Narrative [facility] - 08/06/2017 1:50 AM CDT This test is an Immunoassay which screens for Cryptosporidium and Giardia only. ??Please request Microscopic OP Exam if comprehensive examination for ova and parasites is required. ?? Current interpretive data was last revised on 04. Love Ramirez NP LAB MICROBIOLOGY - GENERAL ORDERABLES Final Result Performing Organization Address City/[facility]/ZIP Co de Phone Number [facility] [place] [address] * Troponin I (08/06/2017 12:44 AM CDT) Troponin I <0.03 0.00 - 0.03 ng/mL [facility] Comment: Interpretive Data Serial determinations are recommended for the diagnosis of myocardial infarction (Third Conway Definition of Myocardial Infarction. ??J Am Sully Cardiol 2012;60:1581-98). Current interpretive data was last revised on 13. Blood specimen (specimen) 08/06/2017 12:44 AM CDT 08/06/2017 12:50 AM CDT us Love Ramirez PIPE BENDER LAB BLOOD ORDERABLES Final Result Performing Organization Address City/[facility] Co de Phone Number [facility] [place] [address] * VRE culture, surveillance (08/06/2017 12:37 AM CDT) Report Final Report: Negative [facility] Stool 08/06/2017 12:3 7 AM CDT 08/07/2017 12:11 AM CDT Narrative [facility] - 08/08/2017 9:02 AM CDT us Notinfile Unknown LAB MICROBIOLOGY - GENERAL ORD ERABLES Final Result Performing Organization Address [facility] Co de Phone Number [facility] [place] [address] * Clostridium difficile assay (08/06/2017 12:37 AM CDT) Report Final Report: Negative for: Clostridium difficile toxin. [facility] Stool 08/06/2017 12:3 7 AM CDT 08/06/2017 1:51 AM CDT Narrative [facility] - 08/06/2017 1:52 AM CDT us Notinfile Unknown LAB MICROBIOLOGY - GENERAL ORD ERABLES Final Result Performing Organization Address City/[facility] Co de Phone Number [facility] [place] [address] * DISCHARGE LABORATORY CUMULATIVE REPORT (08/06/2017 12:00 AM CDT) Narrative 08/06/2017 12:00 AM CDT Ordered by an unspecified provider. Historical Provider MD LAB BLOOD ORDERABLES Diann l Result * Differential, auto (08/05/2017 10:08 PM CDT) Neutrophil pct 67.7 % [facility] Imm gran pct 0.3 % [facility] Lymphocyte pct 23.4 % [facility] Monocyte pct 6.1 % [facility] Eosinophil pct 2.0 % [facility] Basophil pct 0.5 % [facility] Neutrophil abs 5.86 1.70 - 6.50 K/cumm [facility] Imm gran abs 0.03 0.00 - 0.10 K/cumm [facility] Lymphocyte abs 2.03 0.80 - 3.30 K/cumm [facility] Monocyte abs 0.53 0.20 - 0.80 K/cumm [facility] Eosinophil abs 0.17 0.00 - 0.50 K/cumm [facility] Basophil abs 0.04 0.00 - 0.10 K/cumm [facility] Blood specimen (specimen) 08/05/2017 10:08 PM CDT 08/05/2017 10:29 PM CDT Love Ramirez NP LAB BLOOD ORDERABLES Final Result [facility] Department [place] [address] * CBC with auto differential (08/05/2017 10:08 PM CDT) WBC 8.66 3.80 - 9.90 K/cumm [facility] RBC 4.56 3.90 - 5.20 M/cumm [facility] Hgb 12.9 11.9 - 15.5 g/dL [facility] Hct 39.5 35.6 - 45.5 % [facility] MCV 86.6 81.3 - 96.4 fL [facility] MCH 28.3 27.1 - 33.3 pg [facility] MCHC 32.7 32.3 - 35.7 g/dL [facility] RDW CV 12.5 11.1 - 14.9 % [facility] RDW SD 39.5 35.7 - 48.1 fL [facility] Plt 311 150 - 400 K/cumm [facility] MPV 9.1 9.1 - 12.3 fL [facility] NRBC 0.0 0.0 - 0.2 % [facility] NRBC abs 0.00 0.00 - 0.01 K/cumm [facility] Blood specimen (specimen) 08/05/2017 10:08 PM CDT 08/05/2017 10:29 PM CDT us Love Ramirez NP LAB BLOOD ORDERABLES Final Result Performing Organization Address [facility] de Phone Number [facility] Department [place] [address] * Basic metabolic panel (08/05/2017 9:37 PM CDT) [facility] Sodium 141 135 - 145 mmol/L [facility] Potassium, pl 3.9 3.3 - 4.9 mmol/L [facility] Chloride 104 97 - 110 mmol/L [facility] CO2 25 22 - 32 mmol/L [facility] BUN 8 8 - 25 mg/dL [facility] Glucose 99 70 - 199 mg/dL [facility] Creatinine 0.70 0.60 - 1.10 mg/dL [facility] Calcium 9.6 8.5 - 10.3 mg/dL [facility] Anion gap 12 2 - 15 mmol/L [facility] Blood specimen (specimen) 08/05/2017 9:37 PM CDT 08/05/2017 9:42 PM CDT us Jerson Hernandez MD LAB BLOOD ORDERABLES Diann l Result Performing Organization Address [facility] Co de Phone Number [facility] [place] [address] documented in this encounter Visit Diagnoses Not on filedocumented in this encounter Care Teams Deck Lid Fitter Relationship Specialty Start Date End Date Sergo Mackey MD [address] [place] [address] PCP - General 08/05/17 10/05/21 documented as of this encounter
--- OUTSIDE RECORDS SUMMARY | 2024-11-12 14:08 | XMS_ITS | Encounter Summary ---
Author Organization [facility] Healthcare Address [address] [place] [address] Care Team Providers Care Process Treater Name Role Phone Sergo Mackey MD Primary Care Provider [phone] Encounter Details Date Type Department Care Team (Late st Contact Info) Description 08/07/2017 7:34 PM CDT - 08/08/2017 2:24 AM CDT Emergency [facility] Emergency Department [address] [place] [address] Rock Grant MD [facility] [address] [place], [place] [id number] Discharge Disposition: Discharge to home or self care Social History Tobacco Use Types Packs/Day Years Used Date Smoking Tobacco: Never Alcohol Use Standard Drinks/Week Comments No 0 (1 standard drink = 0.6 oz pur e alcohol) Comments Unknown Sex and Gender Information Value Date Recorded Sex Assigned at Not on file 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
--- OUTSIDE RECORDS SUMMARY | 2024-11-12 14:08 | XMS_ITS | Encounter Summary ---
Author Organization [facility] Address [address] [address] Care Team Providers Care Police Cadet Name Role Phone Trenton Lomeli MD Primary Care Provider [phone] Neelima Velazquez MD Unavailable [phone] Reason for Visit * Reason Comments Urinary Symptom UTI symptoms and str ep symptoms Encounter Details Date Type Department Care Team (Late st Contact Info) Description 08/10/2022 3:30 PM CDT Telemedicine [facility] Medical [facility] Primary Care at [address] [address] Trenton Lomeli MD [address] [place] [address] [address] [place] [address] Acute cystitis without hematuria (Primary [...] on file 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 During the visit, I was located in the office and the patient was located at home [facility]. The patient visit started at [...] still under emergency use authorization, so no long term care pharmacist data. Low amount of interactions of risks, but GI upset is a main one (apart from risk of allergy. She should avoid for 3 months after medication. In that case, she can forgo the amoxicillin. Trenton Lomeli MD This office note has been partially dictated using [employer] software. documented in this encounter Plan of [...] 11/10/2024 added in this encounter Care Teams Police Cadet Relationship Specialty Start Date End Date Trenton Lomeli MD PCP - General Family Medicine 10/06/21 Neelima Velazquez MD [address] [address] Consulting Physician Gynecology 10/06/21 documented as of this encounter
--- OUTSIDE RECORDS SUMMARY | 2024-11-12 14:08 | XMS_ITS | Encounter Summary ---
Author Organization [facility] Address [address] [address] Care Team Providers Care Workers' Compensation Claims Supervisor Name Role Phone Trenton Lomeli MD Primary Care Provider [phone] Neelima Velazquez MD Unavailable [phone] Reason for Visit * Reason Comments URI Home tests negative, tickle. 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 The following is recommended [...] sent through Care Everywhere. * Strep Throat (Retail Assistant) (Indonesian) documented in this encounter Ordered Prescriptions Prescription [...] tenderness or frontal sinus tenderness. Mouth/Throat: Lips: [place]. Mouth: Mucous membranes are moist. Pharynx: Uvula [...] The rapid strep test performed at the [facility] today was POSITIVE. The following is recommended [...] return to work Patient Education Strep Throat NIB INSPECTOR: Strep throat is a throat infection caused [...] ask them during your visits. ?? 2017 [employer] Information is for End User's use only and may not be sold, redistributed or otherwise used for commercial purposes. All illustrations and images included in CareNotes?? are the copyrighted property of [email or web address]. or [employer]. The above information is an educational technology specialist only. It is not intended as [...] rapid strep A (03/31/2022 4:03 PM CDT) [facility] Rapid Strep A, POC Positive Swab 03/31/2022 4:03 PM CDT Gayla Sykes NP POINT OF CARE TEST ORDERABLES Final Result * POC Influenza A/B, COVID-19 antigen (03/31/2022 4:02 PM CDT) Pathologist [facility] [place] Influenza A Ag, POC Negative [facility] Influenza B Ag, POC Negative [facility] COVID-19 Ag POC Presumptive Negative Presumptive Negative, Invalid [facility] Nasal 03/31/2022 4:02 PM CDT us Saman Dinero NP POINT OF CARE TEST ORDERABLES F inal Result [facility] [address] [place] [address], [facility] documented in this encounter Visit Diagnoses Diagnosis Strep throat- Primary Streptococcal sore throat documented in this encounter Additional Health Concerns Infection Onset Date Last Indicated Resolved Time COVID: Suspected 03/31/2022 03/31/2022 03/31/2022 4:04 PM CDT documented as of this encounter Care Teams Workers' Compensation Claims Supervisor Relationship Specialty Start Date End Date Trenton Lomeli MD PCP - General Family Medicine 10/06/21 Neelima Velazquez MD [address] [place] [address] Consulting Physician Gynecology 10/06/21 documented as of this encounter
--- OUTSIDE RECORDS SUMMARY | 2024-11-12 14:08 | XMS_ITS | Encounter Summary ---
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 Gender Identity Not on file Sexual Orientation Not on file 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 Not on file Not on file documented as of this encounter Plan of Treatment Not on file documented as of this encounter Visit Diagnoses Diagnosis Encounter for medical examination to establish care ACE (nonalcoholic steatohepatitis) Other chronic nonalcoholic liver disease Essential hypertension Unspecified essential hypertension documented in this encounter Care Teams Float Builder Relationship Specialty Start Date End Date Trenton Lomeli MD PCP - General Family Medicine 10/06/21 Neelima Velazquez MD [address] [address] Consulting Physician Gynecology 10/06/21 documented as of this encounter
--- OUTSIDE RECORDS SUMMARY | 2024-11-12 14:08 | XMS_ITS | Encounter Summary ---
Author Organization [facility] Healthcare Address [address] [place] [address] Care Team Providers Care Adjustment Clerk Name Role Phone Referring, Unknown MD Primary Care Provider Unav ailable Encounter Details Date Type Department Care Team (Late st Contact Info) Description 06/04/2017 1:06 PM CDT - 06/05/2017 1:59 AM CDT Emergency [facility] Emergency Department [address] [place] [address] Unknown, Notinfile Discharge Disposition: Discharge to home or self care Social History Tobacco Use Types Packs/Day Years Used Date Smoking Tobacco: Never Alcohol Use Standard Drinks/Week Comments No 0 (1 standard drink = 0.6 oz pur e alcohol) Comments Unknown Sex and Gender Information Value Date Recorded Sex Assigned at Not on file Legal Sex Female 4:15 AM ANIMAL GRO[employer] Gender Identity Not on file Sexual Orientation [...] 7:38 PM CDT) HCG, ur, POC Negative [facility] Urine 06/04/2017 7:38 PM CDT 06/05/2017 7:14 AM CDT Rose Marie Rutledge MD LAB BLOOD ORDERABLES Final Re sult [facility] [place] [address] * Urinalysis reflex to microscopic (06/04/2017 6:43 PM CDT) Color, ur Yellow Yellow [facility] Clarity, ur Clear Clear [facility] Specific gravity, ur 1.030 1.003 - 1.030 [facility] pH, ur 5.0 5.0 - 8.0 [facility] Albumin, ur Negative Trace [facility] Glucose, ur ql Negative Negative [facility] Ketones, ur Negative Negative [facility] Bilirubin, ur Negative Negative [facility] Blood, ur Negative Negative [facility] Urobilinogen, ur <2.0 <2.0 mg/dL [facility] Nitrites, ur Negative Negative [facility] Leukocyte esterase, ur Negative Negative [facility] Urine 06/04/2017 6:43 PM CDT 06/04/2017 7:46 PM CDT Rose Marie Rutledge MD LAB URINE ORDERABLES Final Re sult Performing Organization Address [facility] de Phone Number [facility] Department [place] [address] * Basic metabolic panel (06/04/2017 6:43 PM CDT) Pathologist [facility] Sodium 140 135 - 145 mmol/L [facility] Potassium, pl 3.7 3.3 - 4.9 mmol/L [facility] Chloride 103 97 - 110 mmol/L [facility] CO2 24 22 - 32 mmol/L [facility] BUN 10 8 - 25 mg/dL [facility] Glucose 104 70 - 199 mg/dL [facility] Creatinine 0.68 0.60 - 1.10 mg/dL [facility] Calcium 9.3 8.5 - 10.3 mg/dL [facility] Anion gap 13 2 - 15 mmol/L [facility] Blood specimen (specimen) 06/04/2017 6:43 PM CDT 06/04/2017 7:03 PM CDT Rose Marie Rutledge MD LAB BLOOD ORDERABLES Edited R esult - Final Performing Organization Address [facility] de Phone Number [facility] Department [place] [address] * (ABNORMAL) Differential, auto (06/04/2017 6:43 PM CDT) [facility] Neutrophil pct 57.8 % [facility] Imm gran pct 0.3 % [facility] Lymphocyte pct 33.8 % [facility] Monocyte pct 5.9 % [facility] Eosinophil pct 1.4 % [facility] Basophil pct 0.8 % [facility] Neutrophil abs 5.93 1.70 - 6.50 K/cumm [facility] Imm gran abs 0.03 0.00 - 0.10 K/cumm [facility] Lymphocyte abs 3.47(H) 0.80 - 3.30 K/cumm [facility] Monocyte abs 0.61 0.20 - 0.80 K/cumm [facility] Eosinophil abs 0.14 0.00 - 0.50 K/cumm [facility] Basophil abs 0.08 0.00 - 0.10 K/cumm [facility] Blood specimen (specimen) 06/04/2017 6:43 PM CDT 06/04/2017 7:03 PM CDT us Rose Marie Rutledge MD LAB BLOOD ORDERABLES Final Re sult [facility] [place] [address] * (ABNORMAL) CBC with auto differential (06/04/2017 6:43 PM CDT) [facility] WBC 10.26(H) 3.80 - 9.90 K/cumm [facility] RBC 4.92 3.90 - 5.20 M/cumm [facility] Hgb 13.8 11.9 - 15.5 g/dL [facility] Hct 42.7 35.6 - 45.5 % [facility] MCV 86.8 81.3 - 96.4 fL [facility] MCH 28.0 27.1 - 33.3 pg [facility] MCHC 32.3 32.3 - 35.7 g/dL [facility] RDW CV 12.8 11.1 - 14.9 % [facility] RDW SD 40.6 35.7 - 48.1 fL [facility] Plt 341 150 - 400 K/cumm [facility] MPV 9.3 9.1 - 12.3 fL [facility] NRBC 0.0 0.0 - 0.2 % [facility] NRBC abs 0.00 0.00 - 0.01 K/cumm [facility] Blood specimen (specimen) 06/04/2017 6:43 PM CDT 06/04/2017 7:03 PM CDT Rose Marie Rutledge MD LAB BLOOD ORDERABLES Final Re sult [facility] [place] [address] documented in this encounter Visit Diagnoses Not on filedocumented in this encounter Care Teams Adjustment Clerk Relationship Specialty Start Date End Date Referring, Unknown, PCP - General 06/04/17 08/04/17 documented as of this encounter
== END 2024-11-06 06:35 | disposition home or self-care (01) ==
LOC: ANHED 03:11
PROVIDERS: Emergency Provider Emergency Medicine; PCP Family Medicine
DX: K29.70 Gastritis, unspecified, without bleeding (principal); Z20.822 Contact with and (suspected) exposure to COVID-19; Z79.899 Other long term (current) drug therapy
CPT/HCPCS: 36415; 71045; 74177; 80053; 80307; 81003; 81025; 83605; 83690; 83735; 84145; 84484; 85025; 87637; 93005; 96361; 96374; 99284; A9270; J2765; J7030; Q9967

== ENCOUNTER 2024-11-10 16:02 | Emergency (ER) | payer BC, SELFPAY ==
--- NOTE | ~2024-11-10 | XR_ITS ---
CHEST RADIOGRAPH, PA AND LATERAL CLINICAL HISTORY: chest pain . COMPARISON: 11/06/2024 TECHNIQUE: PA and lateral views of the chest. FINDINGS The cardiomediastinal silhouette is unremarkable. The lungs are clear. Visualized osseous structures and soft tissues are unremarkable. IMPRESSION: No focal infiltrate or effusion. Reviewed, dictated and finalized at location A. TECHNICIAN
[2024-11-10 16:21] VITALS: BP 154/95; PULSE 105; RESP 20; TEMP 37.1; O2SAT 99
--- NOTE | 2024-11-10 17:13 | ECG_ITS ---
Test Date: 2024-11-10 18:16:00 Measurements Intervals Hines Rate: 93 P: 47 [place]: 140 QRS: 5 QRSD: 80 T: 51 QT: 350 QTc: 437 Interpretive Statements SINUS RHYTHM NONSPECIFIC T-WAVE ABNORMALITY ABNORMAL ECG Electronically Signed On 11-11-2024 10:40:36 PRODUCTION ASSEMBLY SUPERVISOR by Lauri Valenzuela M.D.
--- NOTE | 2024-11-10 17:15 | ED_ITS ---
HPI - Eye Problem General Chief complaint: Eye Problems Stated complaint: Eyelids spasming-after receiving Trazadone/Haldol Time Seen by Provider: 11/10/24 17:01 History of Present Illness HPI Narrative: 34-year-old female with history of bipolar disorder, PCOS, reported IBS presents to the emergency department with multiple medical complaints. Patient states this afternoon around 3pm she began developing fluttering of her eyelids when she would close her eyes as well as involuntary upper deviation of her eyes when she would open her eyes. She states this started while she was in the her coming home from [facility] after a psychiatric admission. Patient is also reporting dysuria. Also stating she is having intermittent left-sided chest pain that radiates to the left neck for several weeks. Denies cough or congestion, fever, lower extremity edema, history of VTE. Patient states she has been evaluated at multiple facilities including our ED several times in the past few weeks for a myriad of symptoms. Related Data Home Medications ?Medication ?Instructions ?Recorded ?Confirmed ?Last Taken ?Type drospirenone (contraceptive) 4 mg 1 tablet PO DAILY 09/24/21 10/02/21 Unknown History (28) tablet (Slynd) Allergies Allergy/AdvReac Type Severity Reaction Status Date / Time aripiprazole Allergy Mild Unknown Verified 11/06/24 02:47 paroxetine Allergy Unknown Unknown Verified 11/06/24 02:47 pseudoephedrine Allergy Unknown Unknown Verified 11/06/24 02:47 Benzodiazepines AdvReac Other Verified 11/06/24 02:47 lorazepam (From Ativan) AdvReac Other Verified 11/06/24 02:47 DEPRESSION MEDS SSRI AdvReac Unknown Unknown Uncoded 11/06/24 02:47 sleeping medications AdvReac Unknown Unknown Uncoded 11/06/24 02:47 Review of Systems 2 Review of Systems: All systems reviewed & are unremarkable except as noted in HPI and below PMFSH Past Medical History Medical History (Updated 11/10/24 @ 19:31 by Ana Pak PA-C) Previous known suicide attempt Panic attacks Bipolar 1 disorder Depression ADHD PCOS (polycystic ovarian syndrome) IBS (irritable bowel syndrome) Hypertension Seizure Headache, migraine Ataxia Diaphoresis Hypersomnia Obesity, Class III, BMI 40-49.9 (morbid obesity) Palpitations with regular cardiac rhythm (05/31/17) Periumbilical abdominal pain Tachycardia Surgical History Surgical History History of wisdom tooth extraction Family History Family History Mother Diabetes mellitus Family history of chronic obstructive pulmonary disease Family history of congestive heart failure Social History Social History Smoking status: Former smoker Exam 2 Narrative: GENERAL: Well-appearing, well-nourished, and in no acute distress. HEAD: Normocephalic, atraumatic. EYES: PERRLA and EOMI. ENT: Nares clear, no rhinorrhea or epistaxis. Mucous membranes moist. NECK: Supple. No nuchal rigidity CHEST: Clear to auscultation. No respiratory distress. HEART: Regular rate and rhythm. No murmur heard. Normal peripheral pulses. ABDOMEN: Soft, nontender, nondistended, normal active bowel sounds. EXTREMITIES: Normal range of motion. No edema. SKIN: Warm, dry, no rash. NEURO: No focal deficits. Alert and oriented x3. Cranial nerves 2 through 12 intact. Strength 5/5 in BUE and BLE. Sensation intact throughout. Normal [id number]. No pronator drift. No dysphonia or dysphagia. No ataxia. No aphasia. Peripheral vision intact. Course Vital Signs Vital signs: Vital Signs Temperature 98.7 F 11/10/24 16:21 Pulse Rate 105 H 11/10/24 16:21 Respiratory Rate 20 11/10/24 16:21 Blood Pressure 154/95 H 11/10/24 16:21 Pulse Oximetry 99 11/10/24 16:21 Oxygen Delivery Room Air 11/10/24 16:21 Temperature 98.7 F 11/10/24 16:21 Pulse Rate 105 H 11/10/24 16:21 Respiratory Rate 20 11/10/24 16:21 Blood Pressure 154/95 H 11/10/24 16:21 Pulse Oximetry 99 11/10/24 16:21 Oxygen Delivery Room Air 11/10/24 16:21 MDM - Eye Problem MDM Narrative Medical decision making narrative: 34-year-old female presents to the emergency department for multiple medical complaints including fluttering of her eyelids, involuntary upward gaze deviation, intermittent chest pain, dysuria and headache. See HPI for further history. Triage vitals with elevated blood pressure and mild tachycardia 105. Patient is afebrile and nontoxic appearing. She is neurovascularly intact without focal deficits on exam. During conversation with the patient she did not have any episodes of fluttering of her eyelids or ?involuntary upward gaze deviation until I had asked her specifically to close her eyes, then her eyes with started fluttering, and when I asked her to open her eyes she would immediately gaze upward. However when examining the patient throughout our conversation and when not acknowledging the symptoms of of her eyes, she would not flutter her eyelids or gaze upward. EKG shows sinus rhythm with normal PA interval, normal QRS duration, normal QTC, no ischemic changes. Troponin is undetectable. D-dimer within normal limits, wells score is low risk. Chest x-ray shows no acute cardiopulmonary findings. CBC and chemistries are unremarkable. UA without infection. negative. Patient updated on workup. Concern for factitious behavior. Advised follow-up with PCP. Return precautions discussed. She is agreeable with the plan verbalized understanding. Discharged in stable condition. Lab Data 11/10/24 17:41 11/10/24 17:41 Labs: Lab Results 11/10/24 11/10/24 11/10/24 Range/Units 17:41 17:41 17:41 WBC 6.8 (4.5-10.0) K/mm3 RBC 4.63 (4.2-5.4) M/mm3 Hgb 13.8 (12.0-15.0) g/dL Hct 41.3 (37.0-47.0) % MCV 89.2 (80-100) fl MCH 29.8 (26-34) pg MCHC 33.4 (32-36) g/dl RDW 12.6 (11.5-14.5) % Plt Count 267 (150-375) k/mm3 MPV 9.8 (7.4-10.4) fl Immature Gran % (Auto) 0.1 (0-0.5) % Neut % (Auto) 68.4 (45.5-73.1) % Lymph % (Auto) 21.4 (18.3-44.2) % [place] % (Auto) 7.6 (2.6-8.5) % Eos % (Auto) 1.6 (0-4.4) % Baso % (Auto) 0.9 (0.2-1.2) % Lymph # (Auto) 1.46 (0.9-3.2) K/mm3 [place] # (Auto) 0.5 (0.1-0.6) K/mm3 Eos # (Auto) 0.1 (0-0.3) K/mm3 Baso # (Auto) 0.1 (0.0-0.1) K/mm3 Abs Immat Gran (auto) 0.01 (0.00-0.031) K/mm3 Absolute Neuts (auto) 4.7 (1.3-6.7) K/mm3 Absolute Nucleated RBC 0.000 (0.0-0.012) K/mm3 Nucleated RBC % 0.0 (0.0-0.2) % PT Cancelled 13.7 INR Cancelled 1.0 APTT Cancelled D-Dimer (<0.48) ug/mL Sodium (137-145) mmol/L Potassium (3.4-5.0) mmol/L Chloride (98-107) mmol/L Carbon Dioxide (22-30) mmol/L Anion Gap (4-12) mmol/L BUN (7-17) mg/dL Creatinine (0.7-1.0) mg/dL Estim Creat Clear Calc ml/min Estimated GFR (59 - ) Glucose (65-110) mg/dL Calcium (8.4-10.2) mg/dL Total Bilirubin (0.2-1.3) mg/dL AST (14-36) U/L ALT (6-35) U/L Alkaline Phosphatase (38-126) U/L Troponin I (0.000-0.034) ng/mL NT-Pro-B Natriuret Pep (19.9-100) pg/mL Total Protein (6.3-8.2) g/dL Albumin (3.5-5.1) g/dL Lipase (23-300) U/L Urine Color (Yellow) Urine Appearance (Clear) Urine pH (5.0-9.0) Ur Specific [place] (1.001-1.035) Urine Protein (Negative) mg/dL Urine Glucose (UA) (Negative) mg/dL Urine Ketones (Negative) mg/dL Ur Blood (Man) (Negative) Urine Nitrate (Negative) Urine Bilirubin (Negative) Urine Urobilinogen (<2.0) mg/dL Leukocyte Esterase Rfl (Negative) ANGUS/UL POC Urine HCG, Qual (Negative) 11/10/24 11/10/24 Range/Units 17:41 17:42 WBC (4.5-10.0) K/mm3 RBC (4.2-5.4) M/mm3 Hgb (12.0-15.0) g/dL Hct (37.0-47.0) % MCV (80-100) fl MCH (26-34) pg MCHC (32-36) g/dl RDW (11.5-14.5) % Plt Count (150-375) k/mm3 MPV (7.4-10.4) fl Immature Gran % (Auto) (0-0.5) % Neut % (Auto) (45.5-73.1) % Lymph % (Auto) (18.3-44.2) % [place] % (Auto) (2.6-8.5) % Eos % (Auto) (0-4.4) % Baso % (Auto) (0.2-1.2) % Lymph # (Auto) (0.9-3.2) K/mm3 [place] # (Auto) (0.1-0.6) K/mm3 Eos # (Auto) (0-0.3) K/mm3 Baso # (Auto) (0.0-0.1) K/mm3 Abs Immat Gran (auto) (0.00-0.031) K/mm3 Absolute Neuts (auto) (1.3-6.7) K/mm3 Absolute Nucleated RBC (0.0-0.012) K/mm3 Nucleated RBC % (0.0-0.2) % PT INR APTT 24.7 D-Dimer < 0.27 (<0.48) ug/mL Sodium 140 (137-145) mmol/L Potassium 4.0 (3.4-5.0) mmol/L Chloride 104 (98-107) mmol/L Carbon Dioxide 26 (22-30) mmol/L Anion Gap 10 (4-12) mmol/L BUN 5 L (7-17) mg/dL Creatinine 0.48 L (0.7-1.0) mg/dL Estim Creat Clear Calc 183 ml/min Estimated GFR > 60 (59 - ) Glucose 98 (65-110) mg/dL Calcium 8.9 (8.4-10.2) mg/dL Total Bilirubin 0.8 (0.2-1.3) mg/dL AST 27 (14-36) U/L ALT 19 (6-35) U/L Alkaline Phosphatase 64 (38-126) U/L Troponin I < 0.012 (0.000-0.034) ng/mL NT-Pro-B Natriuret Pep < 20 (19.9-100) pg/mL Total Protein 7.0 (6.3-8.2) g/dL Albumin 4.5 (3.5-5.1) g/dL Lipase 61 (23-300) U/L Urine Color Yellow (Yellow) Urine Appearance Clear (Clear) Urine pH 7.0 (5.0-9.0) Ur Specific [place] 1.012 (1.001-1.035) Urine Protein Negative (Negative) mg/dL Urine Glucose (UA) Negative (Negative) mg/dL Urine Ketones Negative (Negative) mg/dL Ur Blood (Man) Negative (Negative) Urine Nitrate Negative (Negative) Urine Bilirubin Negative (Negative) Urine Urobilinogen 0.2 (<2.0) mg/dL Leukocyte Esterase Rfl Negative (Negative) ANGUS/UL POC Urine HCG, Qual Negative (Negative) Discharge Plan Discharge Clinical Impression: Atypical chest pain Patient Disposition: Home, Self-Care Condition: Stable Instructions: Antibiotic Form Additional Instructions: Please follow-up with primary care provider. Return to the emergency department if you develop new or worsening symptoms. Patient Language: Icelandic Prescriptions: No Action Slynd 4 mg (28) tablet 1 tablet PO DAILY azithromycin [Zithromax Z-Mike] 250 mg tablet See Rx Instructions .ROUTE .COMPLEX Qty: 6 0RF Rx Instructions: take 500 mg today (day 1), then 250 mg for 4 days (days 2-5) promethazine 50 mg tablet 50 mg PO Q6H PRN (Reason: nausea) Qty: 10 0RF dicyclomine 10 mg capsule 10 mg PO BID PRN (Reason: abdominal pain) Qty: 10 0RF pantoprazole [Protonix] 40 mg tablet,delayed release (DR/EC) 40 mg PO HS 28 Days Qty: 28 0RF sucralfate [Carafate] 1 gram tablet 1 g PO QID PRN (Reason: abdominal discomfort) 10 Days Qty: 40 0RF ondansetron 4 mg tablet,disintegrating 4 mg PO Q8H PRN (Reason: nausea and vomiting) Qty: 14 0RF omeprazole 20 mg capsule,delayed release(DR/EC) 20 mg PO DAILY 14 Days Qty: 14 0RF Follow-up/Referrals: Yani,Trenton Washington MD [Primary Care Provider] -
[2024-11-10 17:45] LABS: BEDSIDEPREGUCG Negative (Negative)
[2024-11-10 18:01] LABS: Add Urine Microscopic? NO; Appearance Urine Clear (Clear); Bilirubin Urine Negative (Negative); Blood Urine Negative (Negative); Color Urine Yellow (Yellow); Glucose Urine UA Negative (Negative); Ketones Urine Negative (Negative); Leukocyte Esterase Ur Negative LEU/UL (Negative); Nitrate Urine Negative (Negative); Protein Urine Negative (Negative); Specific Grav Ur 1.012 (1.001-1.035); Urobilinogen Urine 0.2 mg/dL (<2.0)
[2024-11-10 18:03] LABS: Partial Thromboplastin Time 24.7 Seconds (22.3-36.8); Prothrombin Time 13.7 Seconds (11.1-14.7)
[2024-11-10 18:04] LABS: Alanine Aminotransferase 19 U/L (6-35); Albumin Level 4.5 g/dL (3.5-5.1); Alkaline Phosphatase 64 U/L (38-126); Anion Gap 10 mmol/L (4-12); Aspartate Amino Transferase 27 U/L (14-36); Bilirubin,Total 0.8 mg/dL (0.2-1.3); Blood Urea Nitrogen 5 mg/dL (7-17); Calcium 8.9 mg/dL (8.4-10.2); Carbon Dioxide 26 mmol/L (22-30); Chloride 104 mmol/L (98-107); Estimated CRCL calculation 183 ml/min; Estimated Glomerular Filt Rate > 60; Glucose 98 mg/dL (65-110); Lipase 61 U/L (23-300); Sodium 140 mmol/L (137-145)
[2024-11-10 18:05] LABS: D Dimer < 0.27 ug/mL (<0.48)
[2024-11-10 18:16] LABS: NT Pro B Type Natriuretic Pept < 20 pg/mL (19.9-100); Troponin I < 0.012 ng/mL (0.000-0.034)
[2024-11-10 18:42] LABS: Basophils Absolute Auto 0.1 K/mm3 (0.0-0.1); Basophils Percent Auto 0.9 % (0.2-1.2); Eosinophils Absolute Auto 0.1 K/mm3 (0-0.3); Eosinophils Percent Auto 1.6 % (0-4.4); Hematocrit 41.3 % (37.0-47.0); Hemoglobin 13.8 g/dL (12.0-15.0); Immature Granulocyte Absolute 0.01 K/mm3 (0.00-0.031); Immature Granulocyte Percent A 0.1 % (0-0.5); Lymphocytes Absolute Auto 1.46 K/mm3 (0.9-3.2); Lymphocytes Percent Auto 21.4 % (18.3-44.2); Mean Corpuscular HGB Conc 33.4 g/dl (32-36); Mean Corpuscular Hemoglobin 29.8 pg (26-34); Mean Corpuscular Volume 89.2 fl (80-100); Mean Platelet Volume 9.8 fl (7.4-10.4); Monocytes Absolute Auto 0.5 K/mm3 (0.1-0.6); Monocytes Percent Auto 7.6 % (2.6-8.5); Neutrophils Absolute Auto 4.7 K/mm3 (1.3-6.7); Neutrophils Percent Auto 68.4 % (45.5-73.1); Platelet Count Result 267 k/mm3 (150-375); Red Blood Count 4.63 M/mm3 (4.2-5.4); Red Cell Distribution Width 12.6 % (11.5-14.5); White Blood Count 6.8 K/mm3 (4.5-10.0)
[2024-11-10 19:48] VITALS: BP 134/95; PULSE 104; RESP 20; TEMP 36.9; O2SAT 98
== END 2024-11-10 19:49 | disposition home or self-care (01) ==
PROVIDERS: Emergency Provider Physician Assistant; PCP Family Medicine
DX: R07.89 Other chest pain (principal); I10 Essential (primary) hypertension; E28.2 Polycystic ovarian syndrome; E66.813 Obesity, class 3; Z68.39 Body mass index [BMI] 39.0-39.9, adult; F31.9 Bipolar disorder, unspecified; Z87.891 Personal history of nicotine dependence; K58.9 Irritable bowel syndrome, unspecified; Z79.899 Other long term (current) drug therapy; R94.31 Abnormal electrocardiogram [ECG] [EKG]
CPT/HCPCS: 36415; 71046; 80053; 81003; 81025; 83690; 83880; 84484; 85025; 85380; 85610; 85730; 93005; 96374; 96375; 99284